=== PATIENT | male | born 1945 | race Caucasian/White ===

== ENCOUNTER 2023-04-21 05:03 | Outpatient (RCR) | payer MEDICARE, OTHER, SELFPAY | END 2023-05-20 23:59 | disposition home or self-care (01) | LOC: MM 05:03 | PROVIDERS: PCP Internal Medicine; Visit Provider Internal Medicine | DX: Z51.81 Encounter for therapeutic drug level monitoring (principal); Z79.01 Long term (current) use of anticoagulants; I48.91 Unspecified atrial fibrillation ==

== ENCOUNTER 2023-04-23 16:11 | Inpatient (IN) | payer OTHER, MEDICARE, SELFPAY ==
[2023-04-23] VITALS (28 sets, daily range): BP systolic 74–118; BP diastolic 43–73; PULSE 60–78; RESP 13–28; TEMP 36.6–37; O2SAT 75–97; BMI 50.0; BMI 52.0
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
--- NOTE | 2023-04-23 16:13 | ECG_ITS ---
The [facility] Test Date: 2023-04-23 Pat Name: Justin Merrill Department: Room: - Gender: Male Bi Report Developer: : 1945 Requested By: RUTH ANN CHAVARRIA Order Number: [id number] Reading MD: RUTH ANN CHAVARRIA Measurements Intervals [place] Rate: 51 P: 80 DC: 226 QRS: 34 QRSD: 104 T: -70 QT: 430 QTc: 407 Interpretive Statements Atial flutter 1574 with frequent ventricular premature complexes 2231 First degree AV block 2420 RSR (QR) in lead V1/V2, consistent with right ventricular conduction delay 4437 Septal injury or acute infarct 8102 Low QRS voltage in chest leads 9150 abnormal ECG No previous ECG available for comparison Electronically Signed On 04-25-2023 6:43:15 EDT by RUTH ANN CHAVARRIA
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
[2023-04-23] MEDS: ONDANSETRON PF 4 MG/2 ML VIAL IV (16:20)
[2023-04-23] MEDS: MORPHINE SULFATE 4 MG/ML VIAL IM (16:20)
[2023-04-23 16:26] LABS: Basophils Absolute Auto 0.1 10^3/uL (0.0-0.1); Basophils Percent Auto 0.5 % (0.2-2.0); Eosinophils Absolute Auto 0.1 10^3/uL (0.0-0.7); Eosinophils Percent Auto 1.1 % (0.9-7.0); Hemoglobin 13.1 g/dL (14.0-18.0); Immature Granulocytes Abs Auto 0.07 10^3/uL (0.00-0.03); Immature Granulocytes Pct Auto 0.6 % (0.0-0.5); Lymphocytes Absolute Auto 1.6 10^3/uL (1.2-3.8); Lymphocytes Percent Auto 14.4 % (20.5-60.0); Mean Corpuscular Hemoglobin 29.9 pg (25.9-34.0); Mean Corpuscular Volume 93.6 fL (80.0-94.0); Mean Platelet Volume 9.3 fL (9.5-13.5); Monocytes Absolute Auto 0.6 10^3/uL (0.3-0.8); Monocytes Percent Auto 5.5 % (1.7-12.0); Neutrophils Absolute Auto 8.5 10^3/uL (1.4-6.5); Neutrophils Percent Auto 77.9 % (43.0-75.0); Platelet Count 207 10^3/uL (150-450); Red Blood Count 4.38 10^6/uL (4.70-6.10); Red Cell Distribution Width 15.8 % (11.0-15.0)
[2023-04-23 16:40] LABS: Alanine Aminotransferase 9 U/L (16-63); Albumin Globulin Ratio 0.7; Albumin Level 2.9 g/dL (3.4-5.0); Alkaline Phosphatase 81 U/L (46-116); Anion Gap 12.4; Aspartate Amino Transferase 10 U/L (15-37); BUN Creatinine Ratio 24.8; Bilirubin Total 0.3 mg/dL (0.2-1.0); Calcium 8.2 mg/dL (8.5-10.1); Carbon Dioxide 26.2 mmol/L (21.0-32.0); Chloride 103 mmol/L (98-107); Estimated GFR (African America 49 (>=60); Estimated GFR (Non-African Ame 41 (>=60); Globulin 3.9 g/dL; Glucose 118 mg/dL (74-106); Potassium 3.6 mmol/L (3.5-5.1); Sodium 138 mmol/L (136-145); Total Protein 6.8 g/dL (6.4-8.2)
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
[2023-04-23 16:43] LABS: INR 2.16; Prothrombin Time 21.9 sec (9.0-11.6)
--- NOTE | 2023-04-23 16:52 | PC.NURSE ---
IV STARTED BY EMS PRIOR TO ARRIVAL
[2023-04-23 17:07] LABS: Troponin I High Sensitivity 19.5 pg/mL (4.0-76.1)
[2023-04-23] MEDS: FENTANYL CITRATE/PF 100 MCG/2 ML VIAL 50 MCG IV (18:27)
[2023-04-23] MEDS: HYDROMORPHONE HCL 0.5 MG/0.5 ML SYRINGE IV (20:04)
[2023-04-23] MEDS: 0.9 % SODIUM CHLORIDE 1,000 ML 999 ML IV (20:08)
--- NOTE | 2023-04-23 21:00 | PC.NURSE ---
Admitting physician Kaela Wright MD to place admission orders.
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
[2023-04-24] VITALS (28 sets, daily range): BP systolic 89–98; BP diastolic 53–66; PULSE 60–75; RESP 16–26; TEMP 36.3–36.6; O2SAT 92–97
--- NOTE | 2023-04-24 00:30 | PC.NURSE ---
IT working to fix issue with admission orders flowing to chart from Dr. Wright. At this time, orders to be acknowledged are either absent or being entered under a Non-staff physician username. Ordering physician is indeed Kaela Wright MD. Plan to acknowledge, verify, and chart medications when they are available for administration.
--- NOTE | 2023-04-24 00:59 | PC.NURSE ---
Telephone order for Morphine 2 mg IVP Q4 hours PRN for pain level 7-[address] Kaela Wright. Orders placed and acknowledged. Due to new computerized charting system as well as IT technical issues, orders for the patient were not crossing over and the patient had not received pain medication since his time in the ER. Because of this wait time, Morphine was over-rode for in the Pyxis and verified with RN x2. Morphine given IVP at this time. Plan to document in MAR as soon as medication is verified by pharmacy. Protection Mgr aware of situation. IT is working to correct this problem.
[2023-04-24] MEDS: MORPHINE SULFATE 2 MG/ML SYRINGE IV ×6 (01:00→20:22)
[2023-04-24 07:16] LABS: Glucometer 106 mg/dL (74-106)
[2023-04-24] MEDS: CITALOPRAM HYDROBROMIDE 20 MG TABLET PO (08:02)
[2023-04-24] MEDS: ALLOPURINOL 300 MG TABLET PO (08:02)
[2023-04-24] MEDS: TORSEMIDE 20 MG TABLET 10 MG PO (08:03)
[2023-04-24] MEDS: POTASSIUM BICARBONATE/CIT 25 MEQ TABLET EFF PO ×2 (08:03→21:20)
--- NOTE | 2023-04-24 08:07 | ECG_ITS ---
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
[2023-04-24] MEDS: 0.9 % SODIUM CHLORIDE 1,000 ML 1000 ML IV ×2 (08:29→08:32)
[2023-04-24 09:18] LABS: INR 2.49; Prothrombin Time 25.1 sec (9.0-11.6)
[2023-04-24 09:19] LABS: Bilirubin Urine NEGATIVE (NEGATIVE); Blood Urine SMALL (NEGATIVE); Clarity Urine CLEAR (CLEAR); Color Urine YELLOW (YELLOW); Glucose Urine UA NEGATIVE (NEGATIVE); Ketones Urine NEGATIVE (NEGATIVE); Leukocyte Esterase Urine NEGATIVE (NEGATIVE); Nitrite Urine NEGATIVE (NEGATIVE); Protein Urine 30 mg/dL (NEG/TRACE); Specific Gravity Urine 1.015 (1.005-1.025); Urobilinogen Urine 0.2 EU/dL (0.2-1.0)
[2023-04-24 09:21] LABS: Alanine Aminotransferase 13 U/L (16-63); Albumin Globulin Ratio 0.7; Albumin Level 2.9 g/dL (3.4-5.0); Alkaline Phosphatase 77 U/L (46-116); Anion Gap 12.5; Aspartate Amino Transferase 16 U/L (15-37); BUN Creatinine Ratio 25.5; Bilirubin Total 0.7 mg/dL (0.2-1.0); Calcium 8.4 mg/dL (8.5-10.1); Carbon Dioxide 25.3 mmol/L (21.0-32.0); Chloride 97 mmol/L (98-107); Estimated GFR (African America 41 (>=60); Estimated GFR (Non-African Ame 34 (>=60); Globulin 3.9 g/dL; Glucose 105 mg/dL (74-106); Potassium 3.8 mmol/L (3.5-5.1); Sodium 131 mmol/L (136-145); Total Protein 6.8 g/dL (6.4-8.2)
[2023-04-24 09:31] LABS: Creatine Kinase 59 U/L (39-308); Creatine Kinase MB 1.44 ng/mL (<=3.60); Myoglobin 207 ng/mL (16-96); Troponin I High Sensitivity 28.5 pg/mL (4.0-76.1)
[2023-04-24 09:54] LABS: Amorphous Sediment Urine FEW; Bacteria Urine NONE SEEN #/HPF (NONE SEEN); Crystals Seen? None Seen #/HPF (None Seen); Mucus Urine NONE SEEN (NONE SEEN); RBC Urine NONE SEEN #/HPF (0-2); Squamous Epithelial Cell Urine NONE SEEN #/LPF (NONE/RARE); WBC Urine 0-2 #/HPF (NONE SEEN)
[2023-04-24 09:55] LABS: Cast Seen? NONE SEEN #/LPF (NONE SEEN)
[2023-04-24 11:18] LABS: Glucometer 98 mg/dL (74-106)
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
[2023-04-24 11:41] LABS: Creatine Kinase 66 U/L (39-308); Creatine Kinase MB 1.15 ng/mL (<=3.60); Troponin I High Sensitivity 18.9 pg/mL (4.0-76.1)
[2023-04-24] MEDS: LIDOCAINE 5% PATCH 1 PATCH TOPICAL (12:10)
[2023-04-24 14:29] LABS: Creatine Kinase 71 U/L (39-308); Creatine Kinase MB 2.03 ng/mL (<=3.60); Troponin I High Sensitivity 28.5 pg/mL (4.0-76.1)
[2023-04-24 16:02] LABS: Glucometer 114 mg/dL (74-106)
[2023-04-24] MEDS: WARFARIN SODIUM 4 MG TABLET PO (16:29)
[2023-04-24] MEDS: DOCUSATE SODIUM 100 MG CAPSULE PO (20:22)
[2023-04-24] MEDS: ATORVASTATIN CALCIUM 10 MG TABLET PO (21:21)
[2023-04-25] VITALS (10 sets, daily range): BP systolic 106–165; BP diastolic 66–82; PULSE 60–90; RESP 15–22; TEMP 36.6–36.7; O2SAT 90–95
[2023-04-25] MEDS: MORPHINE SULFATE 2 MG/ML SYRINGE IV ×4 (00:25→21:11)
[2023-04-25 04:34] LABS: Basophils Percent Auto 0.2 % (0.2-2.0); Eosinophils Percent Auto 0.2 % (0.9-7.0); Hematocrit 40.4 % (42.0-54.0); Hemoglobin 12.7 g/dL (14.0-18.0); Immature Granulocytes Abs Auto 0.06 10^3/uL (0.00-0.03); Immature Granulocytes Pct Auto 0.5 % (0.0-0.5); Lymphocytes Absolute Auto 0.7 10^3/uL (1.2-3.8); Lymphocytes Percent Auto 5.6 % (20.5-60.0); Mean Corpuscular HGB Conc 31.4 g/dL (29.9-35.2); Mean Corpuscular Hemoglobin 29.6 pg (25.9-34.0); Mean Corpuscular Volume 94.2 fL (80.0-94.0); Mean Platelet Volume 9.5 fL (9.5-13.5); Monocytes Absolute Auto 0.7 10^3/uL (0.3-0.8); Monocytes Percent Auto 5.1 % (1.7-12.0); Neutrophils Absolute Auto 11.4 10^3/uL (1.4-6.5); Neutrophils Percent Auto 88.4 % (43.0-75.0); Platelet Count 196 10^3/uL (150-450); Red Blood Count 4.29 10^6/uL (4.70-6.10); Red Cell Distribution Width 15.5 % (11.0-15.0); White Blood Count 12.8 10^3/uL (4.0-11.0)
[2023-04-25 04:52] LABS: Alanine Aminotransferase 15 U/L (16-63); Albumin Globulin Ratio 0.7; Alkaline Phosphatase 77 U/L (46-116); Anion Gap 13.8; Aspartate Amino Transferase 18 U/L (15-37); BUN Creatinine Ratio 25.7; Bilirubin Total 0.6 mg/dL (0.2-1.0); Calcium 8.8 mg/dL (8.5-10.1); Carbon Dioxide 25.7 mmol/L (21.0-32.0); Chloride 96 mmol/L (98-107); Estimated GFR (African America 43 (>=60); Estimated GFR (Non-African Ame 35 (>=60); Globulin 4.2 g/dL; Glucose 145 mg/dL (74-106); Potassium 4.5 mmol/L (3.5-5.1); Sodium 131 mmol/L (136-145); Total Protein 7.2 g/dL (6.4-8.2)
[2023-04-25 04:53] LABS: Creatine Kinase 182 U/L (39-308)
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
--- NOTE | 2023-04-25 08:54 | XR_ITS ---
The [address] [address] Patient Name: NIRMAL CHAIDEZ MRN: [id number] date: 1945 Sex: M Assigned Patient Location: [place] Current Patient Location: [place] Accession/Order Number: [id number] Exam Date: 04/25/2023 09:25 Report Date: 04/25/2023 10:01 At the request of: TAMANNA SHRESTHA Procedure: XR chest 2V EXAMINATION: XR chest 2V, 04/25/2023 9:25 AM EDT HISTORY: Left-sided chest pain. COMPARISON: Relevant priors reviewed including chest CT 04/23/2023 TECHNIQUE: PA and lateral views of the chest were obtained. FINDINGS: Medical devices: Cardiac pulse generator overlies left chest wall with unchanged right ventricular lead. Cardiomediastinal silhouette is unchanged. Minimal left lower lobe opacity is favored related to atelectasis. No pleural effusion or pneumothorax. Known left-sided rib fractures are better appreciated on recent CT 01/24/2023. Degenerative change of the spine. IMPRESSION: 1. Minimal left lower lobe opacity is favored related to atelectasis. 2. Known left-sided rib fractures are better appreciated on recent CT. No pneumothorax. Electronically authenticated by: MARTINE RIOS Date: 04/25/2023 10:01
[2023-04-25] MEDS: LIDOCAINE 5% PATCH 1 PATCH TOPICAL (09:59)
[2023-04-25] MEDS: 0.9 % SODIUM CHLORIDE 1,000 ML 1000 ML IV (09:59)
[2023-04-25] MEDS: POTASSIUM BICARBONATE/CIT 25 MEQ TABLET EFF PO ×2 (09:59→21:11)
[2023-04-25] MEDS: ALLOPURINOL 300 MG TABLET PO (10:00)
[2023-04-25] MEDS: TORSEMIDE 20 MG TABLET 10 MG PO (10:00)
[2023-04-25] MEDS: CITALOPRAM HYDROBROMIDE 20 MG TABLET PO (10:00)
[2023-04-25] MEDS: METFORMIN HCL 500 MG TABLET PO (10:00)
--- NOTE | 2023-04-25 10:41 | CM.NOTE ---
Rounds made with Dr. Klein. Await PT/OT evals to determine potential needs at discharge.
[2023-04-25 11:20] LABS: Glucometer 162 mg/dL (74-106)
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
--- NOTE | 2023-04-25 13:36 | SWNOTE1 ---
SW received a call from Al [facility]ires [place] and they will need more information in regards to the pt's car insurance, etc in order to coordinate with medicare. YOU will have pt or pt's call [facility] [place].
--- NOTE | 2023-04-25 14:15 | SWNOTE1 ---
SW spoke with pt in regards to medicare and car insurance. Pt would like SW to talk with . SW spoke with pt's and she will call [facility] [employer].
--- NOTE | 2023-04-25 15:41 | SWNOTE1 ---
Al from [place] spoke to pt's and the is getting more information for [place] to coordinate the car insurance. SW updated nursing and doctor on the plan.
[2023-04-25 16:08] LABS: Glucometer 157 mg/dL (74-106)
[2023-04-25] MEDS: WARFARIN SODIUM 4 MG TABLET PO (18:18)
[2023-04-25 20:40] LABS: Glucometer 163 mg/dL (74-106)
[2023-04-25] MEDS: DOCUSATE SODIUM 100 MG CAPSULE PO (21:11)
[2023-04-25] MEDS: ATORVASTATIN CALCIUM 10 MG TABLET PO (21:11)
[2023-04-26] VITALS (9 sets, daily range): BP systolic 105–115; BP diastolic 66–76; PULSE 62–83; RESP 16–20; TEMP 36.4–36.8; O2SAT 90–95; BMI 52.0
[2023-04-26 05:23] LABS: Basophils Percent Auto 0.3 % (0.2-2.0); Eosinophils Absolute Auto 0.1 10^3/uL (0.0-0.7); Eosinophils Percent Auto 1.5 % (0.9-7.0); Hematocrit 37.6 % (42.0-54.0); Hemoglobin 12.1 g/dL (14.0-18.0); Immature Granulocytes Abs Auto 0.04 10^3/uL (0.00-0.03); Immature Granulocytes Pct Auto 0.4 % (0.0-0.5); Lymphocytes Absolute Auto 1.2 10^3/uL (1.2-3.8); Mean Corpuscular HGB Conc 32.2 g/dL (29.9-35.2); Mean Corpuscular Hemoglobin 29.4 pg (25.9-34.0); Mean Corpuscular Volume 91.5 fL (80.0-94.0); Mean Platelet Volume 9.9 fL (9.5-13.5); Monocytes Absolute Auto 0.8 10^3/uL (0.3-0.8); Monocytes Percent Auto 8.1 % (1.7-12.0); Neutrophils Absolute Auto 7.5 10^3/uL (1.4-6.5); Neutrophils Percent Auto 77.7 % (43.0-75.0); Platelet Count 192 10^3/uL (150-450); Red Blood Count 4.11 10^6/uL (4.70-6.10); Red Cell Distribution Width 15.3 % (11.0-15.0); White Blood Count 9.6 10^3/uL (4.0-11.0)
[2023-04-26 05:40] LABS: Alanine Aminotransferase 13 U/L (16-63); Albumin Globulin Ratio 0.6; Albumin Level 2.6 g/dL (3.4-5.0); Alkaline Phosphatase 72 U/L (46-116); Anion Gap 6.6; Aspartate Amino Transferase 14 U/L (15-37); BUN Creatinine Ratio 30.8; Bilirubin Total 0.7 mg/dL (0.2-1.0); Calcium 9.1 mg/dL (8.5-10.1); Carbon Dioxide 24.3 mmol/L (21.0-32.0); Chloride 98 mmol/L (98-107); Estimated GFR (African America 57 (>=60); Estimated GFR (Non-African Ame 47 (>=60); Globulin 4.1 g/dL; Glucose 132 mg/dL (74-106); Potassium 3.9 mmol/L (3.5-5.1); Sodium 125 mmol/L (136-145); Total Protein 6.7 g/dL (6.4-8.2)
[2023-04-26 05:42] LABS: Creatine Kinase 108 U/L (39-308)
[2023-04-26 08:25] LABS: INR 2.68; Prothrombin Time 26.9 sec (9.0-11.6)
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
[2023-04-26] MEDS: ALLOPURINOL 300 MG TABLET PO (09:19)
[2023-04-26] MEDS: METFORMIN HCL 500 MG TABLET PO (09:19)
[2023-04-26] MEDS: DOCUSATE SODIUM 100 MG CAPSULE PO (09:20)
[2023-04-26] MEDS: CITALOPRAM HYDROBROMIDE 20 MG TABLET PO (09:20)
[2023-04-26] MEDS: LIDOCAINE 5% PATCH 1 PATCH TOPICAL (09:22)
[2023-04-26] MEDS: POTASSIUM BICARBONATE/CIT 25 MEQ TABLET EFF PO ×2 (09:22→21:51)
[2023-04-26] MEDS: TORSEMIDE 20 MG TABLET 10 MG PO (09:30)
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
--- NOTE | 2023-04-26 10:45 | CM.NOTE ---
Rounds made with Dr. Klein. No plan for discharge today.
[2023-04-26 10:57] LABS: Glucometer 132 mg/dL (74-106)
--- NOTE | 2023-04-26 11:13 | REH.PTDLY ---
Physical Therapy Daily Note PT Daily Note/Assess Start: 04/26/23 11:00 Freq: Status: Active Protocol: Document 04/26/23 09:55 MINNIE (Rec: 04/26/23 11:13 MINNIE [id number]) Physical Therapy Daily Note/Assessment Time In 09:30 Time Out 09:55 Pain Level 0 Pain N/A Subjective Pt reports no pain at rest prior to rx. Willing to participate in therapy, wanting to walk. Therapeutic Exercise Minutes (minutes) 2 Therapeutic Exercise Units 0 Therapeutic Exercise Treatment Attempted B LE seated exs after gait, pt performs LAQ 12x ea, marching 4x ea but states legs are too tired after that walk. Therapeutic Activity Minutes (minutes) 16 Therapeutic Activity Units 1 Chair Transfer Ability Minimum Assistance,2 Person Assist Therapeutic Activity Comments Pt performs sit to stand transfers from chair Min A x2. Gait training with RW SBA/ CGAx2 with pt taking several short standing rest breaks due to fatigue and shortness of breath at times. Pt ambulates a distance of 180 feet collectively relying on RW for support and ambulating at slow pace. Pt determined to ambulate a distance and states he is sore afterwards. Total Therapy Minutes 18 Total Physical Therapy Units 1 Daily Note Summary Pt fatigue and sore post rx. Progressed gait distance with pt needing several standing rest breaks every 20-30 feet. Requires assist to get out of chair safely.
[2023-04-26] MEDS: LEVOFLOXACIN IN DEXTROSE 5 % 750 MG/150 ML PIGGYBACK IV (11:49)
[2023-04-26] MEDS: 0.9 % SODIUM CHLORIDE 250 ML 50 ML IV (11:57)
--- NOTE | 2023-04-26 12:20 | SWNOTE1 ---
YOU spoke with Al from [place] and she is not sure how long it will take to hear back about the car insurance and is alright if referral sent elsewhere so no hold up to discharge. Al stated [facility] would take referral and then deal with car insurance after. SW called and left message for pt's and will talk to pt as well.
--- NOTE | 2023-04-26 13:33 | SWNOTE1 ---
SW spoke with pt, pt's daughter, and pt's in room. SW let them know it is unknown when the car insurance will come through in regards to the pt going to [facility] and coordinating that and medicare. SW explaind to them that [facility] does not go through the car insurance they deal with that later. SW also explained that pt will not have a medical reason to stay past Thrusday and will be ready for discharge. Therefore we cannot wait for him to go to [facility] and for the car insurance to coordinate iwth medicare. Family and pt will review star ratings from medicare.gov. Family reviewed and they want to stay in [place], they are alright with SW sending referral to [facility].
--- NOTE | 2023-04-26 14:21 | SWNOTE1 ---
[facility] is able to accept. Plan is for discharge .
[2023-04-26 16:31] LABS: Glucometer 118 mg/dL (74-106)
[2023-04-26] MEDS: WARFARIN SODIUM 4 MG TABLET PO (18:07)
[2023-04-26 20:44] LABS: Glucometer 126 mg/dL (74-106)
[2023-04-26] MEDS: ATORVASTATIN CALCIUM 10 MG TABLET PO (21:46)
[2023-04-26] MEDS: MORPHINE SULFATE 2 MG/ML SYRINGE 1 MG IV (21:58)
[2023-04-26] MEDS: IPRATROPIUM/ALBUTEROL SULFATE 3 ML AMPUL.NEB IH (22:54)
[2023-04-27 04:09] VITALS: PULSE 75; RESP 18; O2SAT 93
[2023-04-27] MEDS: IPRATROPIUM/ALBUTEROL SULFATE 3 ML AMPUL.NEB IH ×4 (04:09→23:08)
[2023-04-27 04:20] VITALS: PULSE 73; RESP 20; O2SAT 95
[2023-04-27 05:26] LABS: Basophils Absolute Auto 0.1 10^3/uL (0.0-0.1); Basophils Percent Auto 0.5 % (0.2-2.0); Eosinophils Absolute Auto 0.1 10^3/uL (0.0-0.7); Eosinophils Percent Auto 0.7 % (0.9-7.0); Hematocrit 38.4 % (42.0-54.0); Hemoglobin 12.4 g/dL (14.0-18.0); Immature Granulocytes Abs Auto 0.06 10^3/uL (0.00-0.03); Immature Granulocytes Pct Auto 0.6 % (0.0-0.5); Lymphocytes Absolute Auto 1.5 10^3/uL (1.2-3.8); Lymphocytes Percent Auto 13.8 % (20.5-60.0); Mean Corpuscular HGB Conc 32.3 g/dL (29.9-35.2); Mean Corpuscular Hemoglobin 29.9 pg (25.9-34.0); Mean Corpuscular Volume 92.5 fL (80.0-94.0); Mean Platelet Volume 9.6 fL (9.5-13.5); Monocytes Absolute Auto 0.8 10^3/uL (0.3-0.8); Monocytes Percent Auto 7.5 % (1.7-12.0); Neutrophils Absolute Auto 8.3 10^3/uL (1.4-6.5); Neutrophils Percent Auto 76.9 % (43.0-75.0); Platelet Count 192 10^3/uL (150-450); Red Blood Count 4.15 10^6/uL (4.70-6.10); Red Cell Distribution Width 15.4 % (11.0-15.0); White Blood Count 10.7 10^3/uL (4.0-11.0)
[2023-04-27 05:50] LABS: Alanine Aminotransferase 14 U/L (16-63); Albumin Globulin Ratio 0.6; Albumin Level 2.6 g/dL (3.4-5.0); Alkaline Phosphatase 66 U/L (46-116); Anion Gap 14.1; Aspartate Amino Transferase 12 U/L (15-37); Bilirubin Total 0.7 mg/dL (0.2-1.0); Calcium 9.2 mg/dL (8.5-10.1); Carbon Dioxide 25.9 mmol/L (21.0-32.0); Chloride 98 mmol/L (98-107); Estimated GFR (African America 54 (>=60); Estimated GFR (Non-African Ame 45 (>=60); Globulin 4.2 g/dL; Glucose 153 mg/dL (74-106); Sodium 134 mmol/L (136-145); Total Protein 6.8 g/dL (6.4-8.2)
[2023-04-27 06:06] LABS: Prothrombin Time 24.2 sec (9.0-11.6)
[2023-04-27 07:57] LABS: Glucometer 170 mg/dL (74-106)
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
[2023-04-27] MEDS: TORSEMIDE 20 MG TABLET 10 MG PO (09:04)
[2023-04-27] MEDS: POTASSIUM BICARBONATE/CIT 25 MEQ TABLET EFF PO ×2 (09:04→20:47)
[2023-04-27] MEDS: ALLOPURINOL 300 MG TABLET PO (09:04)
[2023-04-27] MEDS: LIDOCAINE 5% PATCH 1 PATCH TOPICAL (09:05)
[2023-04-27] MEDS: CITALOPRAM HYDROBROMIDE 20 MG TABLET PO (09:05)
[2023-04-27] MEDS: METFORMIN HCL 500 MG TABLET PO (09:05)
[2023-04-27] MEDS: DOCUSATE SODIUM 100 MG CAPSULE PO ×2 (09:05→20:53)
--- NOTE | 2023-04-27 09:47 | CM.NOTE ---
Rounds made with Dr. Klein. No plan for discharge today.
[2023-04-27 11:33] LABS: Glucometer 132 mg/dL (74-106)
--- NOTE | 2023-04-27 12:43 | REH.PTDLY ---
Physical Therapy Daily Note PT Daily Note/Assess Start: 04/26/23 11:00 Freq: Status: Active Protocol: Document 04/27/23 10:45 MINNIE (Rec: 04/27/23 12:43 MINNIE [id number]) Physical Therapy Daily Note/Assessment Time In 10:27 Time Out 10:44 Pain Level 6 Pain Level 8 Subjective Pt sore today at ribs and into B LEs. Overdid it yesterday with ambulation. Therapeutic Exercise Minutes (minutes) 6 Therapeutic Exercise Units 0 Therapeutic Exercise Treatment Instructed pt in B LE seated exs 10x ea with pt performing at slower pace and smaller range. Exs included LAQ, marching, hip abd, and AP. Pt reports he needs to stop after these as he is having increased pain. Therapeutic Activity Minutes (minutes) 10 Therapeutic Activity Units 1 Chair Transfer Ability Minimum Assistance,Moderate Assistance Therapeutic Activity Comments Pt requires Mod A x1 to get up from chair today. Gait training with RW SBA 70 feet with pt having to stop 2x to take break due to fatigue and soreness. Total Therapy Minutes 16 Total Physical Therapy Units 1 Daily Note Summary Pt has increased soreness and pain today in [place] LEs and abdomen. Reduced gait distance due to this. Pt has increased pain post rx.
--- NOTE | 2023-04-27 13:09 | SWNOTE1 ---
Updates sent to [facility].
[2023-04-27 14:45] VITALS: BP 128/85; PULSE 75; RESP 20; TEMP 36.8; O2SAT 92
[2023-04-27 16:21] LABS: Glucometer 150 mg/dL (74-106)
[2023-04-27] MEDS: WARFARIN SODIUM 4 MG TABLET PO (17:33)
[2023-04-27] MEDS: ACETAMINOPHEN 500 MG TABLET 1000 MG PO (17:33)
--- NOTE | 2023-04-27 20:34 | PC.NURSE ---
incouraged pt to drink water but refused at this time- mouth very dry
[2023-04-27] MEDS: TRAMADOL HCL 50 MG TABLET PO (20:48)
[2023-04-27 20:53] LABS: Glucometer 155 mg/dL (74-106)
[2023-04-27 20:57] VITALS: BP 109/73; RESP 18; TEMP 36.6; O2SAT 92
[2023-04-27] MEDS: ATORVASTATIN CALCIUM 10 MG TABLET PO (21:28)
[2023-04-27 23:08] VITALS: PULSE 73; RESP 20; O2SAT 96
[2023-04-27 23:20] VITALS: PULSE 78; RESP 20; O2SAT 98
[2023-04-28] MEDS: ACETAMINOPHEN 500 MG TABLET 1000 MG PO (00:54)
[2023-04-28] MEDS: IPRATROPIUM/ALBUTEROL SULFATE 3 ML AMPUL.NEB IH ×2 (04:18→11:33)
[2023-04-28 04:20] VITALS: PULSE 72; RESP 18; O2SAT 95
[2023-04-28 04:28] VITALS: PULSE 81; RESP 18; O2SAT 98
[2023-04-28 04:52] LABS: Basophils Absolute Auto 0.1 10^3/uL (0.0-0.1); Basophils Percent Auto 0.6 % (0.2-2.0); Eosinophils Absolute Auto 0.1 10^3/uL (0.0-0.7); Eosinophils Percent Auto 1.6 % (0.9-7.0); Hemoglobin 11.9 g/dL (14.0-18.0); Immature Granulocytes Abs Auto 0.04 10^3/uL (0.00-0.03); Immature Granulocytes Pct Auto 0.5 % (0.0-0.5); Lymphocytes Absolute Auto 1.4 10^3/uL (1.2-3.8); Lymphocytes Percent Auto 17.1 % (20.5-60.0); Mean Corpuscular HGB Conc 32.2 g/dL (29.9-35.2); Mean Corpuscular Hemoglobin 29.8 pg (25.9-34.0); Mean Corpuscular Volume 92.7 fL (80.0-94.0); Mean Platelet Volume 9.2 fL (9.5-13.5); Monocytes Absolute Auto 0.7 10^3/uL (0.3-0.8); Monocytes Percent Auto 8.6 % (1.7-12.0); Neutrophils Absolute Auto 5.9 10^3/uL (1.4-6.5); Neutrophils Percent Auto 71.6 % (43.0-75.0); Platelet Count 193 10^3/uL (150-450); Red Blood Count 3.99 10^6/uL (4.70-6.10); Red Cell Distribution Width 15.3 % (11.0-15.0); White Blood Count 8.3 10^3/uL (4.0-11.0)
[2023-04-28 05:03] LABS: INR 2.74; Prothrombin Time 27.4 sec (9.0-11.6)
[2023-04-28 05:10] LABS: Alanine Aminotransferase 13 U/L (16-63); Albumin Globulin Ratio 0.6; Albumin Level 2.4 g/dL (3.4-5.0); Alkaline Phosphatase 60 U/L (46-116); Anion Gap 10.1; Aspartate Amino Transferase 11 U/L (15-37); BUN Creatinine Ratio 23.1; Bilirubin Total 0.4 mg/dL (0.2-1.0); Calcium 9.1 mg/dL (8.5-10.1); Carbon Dioxide 28.8 mmol/L (21.0-32.0); Chloride 101 mmol/L (98-107); Estimated GFR (African America >60 (>=60); Estimated GFR (Non-African Ame 54 (>=60); Glucose 145 mg/dL (74-106); Potassium 3.9 mmol/L (3.5-5.1); Sodium 136 mmol/L (136-145); Total Protein 6.4 g/dL (6.4-8.2)
[2023-04-28 08:33] LABS: Glucometer 152 mg/dL (74-106)
[2023-04-28] MEDS: LIDOCAINE 5% PATCH 1 PATCH TOPICAL (09:10)
[2023-04-28] MEDS: POTASSIUM BICARBONATE/CIT 25 MEQ TABLET EFF PO (09:11)
[2023-04-28] MEDS: METFORMIN HCL 500 MG TABLET PO (09:11)
[2023-04-28] MEDS: CITALOPRAM HYDROBROMIDE 20 MG TABLET PO (09:11)
[2023-04-28] MEDS: ALLOPURINOL 300 MG TABLET PO (09:11)
[2023-04-28] MEDS: LEVOFLOXACIN IN DEXTROSE 5 % 750 MG/150 ML PIGGYBACK IV (09:11)
[2023-04-28] MEDS: TORSEMIDE 20 MG TABLET 10 MG PO (09:11)
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
--- NOTE | 2023-04-28 09:44 | CM.NOTE ---
Rounds made with Dr. Klein. Plan for discharge today to [facility].
[2023-04-28 10:31] LABS: Mono Screen NEGATIVE (NEGATIVE)
--- NOTE | 2023-04-28 10:47 | SWNOTE1 ---
Pt is ready for dc today to [facility] skilled. SW set up transport for 12:15-12:45. SW notified pt, nursing, [facility], and pt's of time. SW sent over dc orders and completed HENS. Packet is updated as well.
--- NOTE | 2023-04-28 11:08 | REH.PTDLY ---
Physical Therapy Daily Note PT Daily Note/Assess Start: 04/26/23 11:00 Freq: Status: Active Protocol: Document 04/28/23 11:05 MINNIE (Rec: 04/28/23 11:07 MINNIE [id number]) Visit Not Completed Visit Not Completed Due to: Other Other Reason Visit Not Completed Pt is leaving at 12:15-12:30 today. Pt demanding a shower prior to leaving, does not want PT at this time. Nursing notified and enters room to give pt shower and prepare for DC. Physical Therapy Daily Note/Assessment Time In 10:54 Time Out 11:00
[2023-04-28 11:12] LABS: Glucometer 184 mg/dL (74-106)
--- NOTE | 2023-04-28 11:46 | SWNOTE1 ---
SW did review follow up IMM form with pt's . Pt was getting cleaned up. Pt's voiced understanding and does not want to appeal discharge. Pt is alright with pt's signing paper. Pt's signed, original given to pt and copy placed in chart.
[2023-04-28 11:54] VITALS: BP 99/65; PULSE 72; RESP 18; TEMP 36.6; O2SAT 94
== END 2023-04-28 12:55 | DRG 184 ==
LOC: ER 20:11 → ICU 20:33 → MS 04-25 09:40
PROVIDERS: Admitting Provider Family Medicine; Emergency Provider Emergency Medicine; PCP Internal Medicine; Visit Provider Family Medicine
DX: S22.42XA Multiple fractures of ribs, left side, initial encounter for closed fracture (principal); J90 Pleural effusion, not elsewhere classified; N17.9 Acute kidney failure, unspecified; S20.212A Contusion of left front wall of thorax, initial encounter; S80.12XA Contusion of left lower leg, initial encounter; S80.11XA Contusion of right lower leg, initial encounter; D72.829 Elevated white blood cell count, unspecified; E11.22 Type 2 diabetes mellitus with diabetic chronic kidney disease; N18.2 Chronic kidney disease, stage 2 (mild); I25.10 Atherosclerotic heart disease of native coronary artery without angina pectoris; I12.9 Hypertensive chronic kidney disease with stage 1 through stage 4 chronic kidney disease, or unspecified chronic kidney disease; I48.0 Paroxysmal atrial fibrillation; I95.9 Hypotension, unspecified; I25.2 Old myocardial infarction; R79.89 Other specified abnormal findings of blood chemistry; R26.2 Difficulty in walking, not elsewhere classified; R06.00 Dyspnea, unspecified; V43.52XA Car driver injured in collision with other type car in traffic accident, initial encounter; W22.11XA Striking against or struck by driver side automobile airbag, initial encounter; Y92.413 State road as the place of occurrence of the external cause; Z87.891 Personal history of nicotine dependence; Z79.84 Long term (current) use of oral hypoglycemic drugs; Z79.899 Other long term (current) drug therapy; Z79.01 Long term (current) use of anticoagulants; Z95.5 Presence of coronary angioplasty implant and graft; Z95.0 Presence of cardiac pacemaker; Z80.9 Family history of malignant neoplasm, unspecified
CPT/HCPCS: 36415; 70450; 71046; 71260; 72125; 74177; 80053; 81001; 82550; 82553; 82948; 83874; 84484; 85025; 85610; 86308; 93005; 94640; 94667; 94668; 96374; 96375; 96376; 97162; 97165; 97530; 97535; 99285; G0378; J1170; Q3014; Q9967

== ENCOUNTER 2023-05-04 08:21 | Outpatient (REF) | payer MEDICARE, OTHER, SELFPAY ==
[2023-05-04 09:54] LABS: INR 2.82; Prothrombin Time 28.2 sec (9.0-11.6)
== END 2023-05-04 08:22 ==
LOC: LAB 08:21
PROVIDERS: PCP Internal Medicine; Visit Provider Internal Medicine
DX: I48.91 Unspecified atrial fibrillation (principal)
CPT/HCPCS: 36415; 85610

== ENCOUNTER 2023-05-11 00:41 | Outpatient (REF) | payer MEDICARE, OTHER, SELFPAY ==
[2023-05-11 09:40] LABS: INR 1.59; Prothrombin Time 16.4 sec (9.0-11.6)
== END 2023-05-11 00:42 ==
LOC: LAB 00:41
PROVIDERS: PCP Internal Medicine; Visit Provider Internal Medicine
DX: I48.91 Unspecified atrial fibrillation (principal); E11.9 Type 2 diabetes mellitus without complications
CPT/HCPCS: 36415; 85610

== ENCOUNTER 2023-05-18 13:33 | Outpatient (REF) | payer MEDICARE, OTHER, SELFPAY ==
[2023-05-18 15:03] LABS: INR 2.02; Prothrombin Time 20.6 sec (9.0-11.6)
[2023-05-18 15:18] LABS: Anion Gap 9.1; BUN Creatinine Ratio 27.4; Calcium 8.9 mg/dL (8.5-10.1); Carbon Dioxide 31.4 mmol/L (21.0-32.0); Chloride 101 mmol/L (98-107); Estimated GFR (African America >60 (>=60); Estimated GFR (Non-African Ame >60 (>=60); Glucose 102 mg/dL (74-106); Potassium 4.5 mmol/L (3.5-5.1); Sodium 137 mmol/L (136-145)
== END 2023-05-18 13:34 | disposition home or self-care (01) ==
LOC: LAB 13:33
PROVIDERS: PCP Internal Medicine
DX: I48.91 Unspecified atrial fibrillation (principal); R79.89 Other specified abnormal findings of blood chemistry
CPT/HCPCS: 36415; 80048; 85610

== ENCOUNTER 2023-05-26 09:00 | Outpatient (RCR) | payer MEDICARE, OTHER, SELFPAY | END 2023-06-20 16:58 | disposition home or self-care (01) | LOC: MM 09:00 | PROVIDERS: PCP Internal Medicine; Visit Provider Internal Medicine | DX: Z51.81 Encounter for therapeutic drug level monitoring (principal); Z79.01 Long term (current) use of anticoagulants; I48.91 Unspecified atrial fibrillation ==

== ENCOUNTER 2023-05-31 13:36 | Outpatient (REF) | payer MEDICARE, OTHER, SELFPAY ==
[2023-05-31 15:19] LABS: INR 1.72; Prothrombin Time 17.7 sec (9.0-11.6)
== END 2023-05-31 13:37 | disposition home or self-care (01) ==
LOC: LAB 13:36
PROVIDERS: PCP Internal Medicine; Visit Provider Internal Medicine
DX: I48.91 Unspecified atrial fibrillation (principal)
CPT/HCPCS: 36415; 85610

== ENCOUNTER 2023-06-07 14:11 | Outpatient (REF) | payer MEDICARE, OTHER, SELFPAY ==
[2023-06-07 14:50] LABS: INR 3.46; Prothrombin Time 34.2 sec (9.0-11.6)
== END 2023-06-07 14:12 | disposition home or self-care (01) ==
LOC: LAB 14:11
PROVIDERS: PCP Internal Medicine; Visit Provider Internal Medicine
DX: I48.91 Unspecified atrial fibrillation (principal)
CPT/HCPCS: 36415; 85610

== ENCOUNTER 2023-06-14 15:18 | Outpatient (REF) | payer MEDICARE, OTHER, SELFPAY ==
[2023-06-14 16:50] LABS: INR 3.32; Prothrombin Time 32.9 sec (9.0-11.6)
== END 2023-06-14 15:19 | disposition home or self-care (01) ==
LOC: LAB 15:18
PROVIDERS: PCP Internal Medicine; Visit Provider Internal Medicine
DX: Z79.01 Long term (current) use of anticoagulants (principal)
CPT/HCPCS: 36415; 85610

== ENCOUNTER 2023-06-21 09:19 | Outpatient (RCR) | payer MEDICARE, OTHER, SELFPAY | END 2023-07-21 17:34 | disposition home or self-care (01) | LOC: MM 09:19 | PROVIDERS: PCP Internal Medicine; Visit Provider Internal Medicine | DX: Z51.81 Encounter for therapeutic drug level monitoring (principal); Z79.01 Long term (current) use of anticoagulants; I48.91 Unspecified atrial fibrillation ==

== ENCOUNTER 2023-06-21 13:54 | Outpatient (REF) | payer MEDICARE, OTHER, SELFPAY ==
[2023-06-21 15:00] LABS: INR 2.95; Prothrombin Time 29.4 sec (9.0-11.6)
== END 2023-06-21 13:55 | disposition home or self-care (01) ==
LOC: LAB 13:54
PROVIDERS: PCP Internal Medicine; Visit Provider Internal Medicine
DX: Z79.01 Long term (current) use of anticoagulants (principal)
CPT/HCPCS: 36415; 85610

== ENCOUNTER 2023-06-28 14:00 | Outpatient (REF) | payer MEDICARE, OTHER, SELFPAY ==
[2023-06-28 14:43] LABS: Estimated Average Glucose 148 mg/dL; Glycohemoglobin A1C 6.8 % (4.5-6.2)
[2023-06-28 14:50] LABS: INR 2.12; Prothrombin Time 21.5 sec (9.0-11.6)
== END 2023-06-28 14:01 | disposition home or self-care (01) ==
LOC: LAB 14:00
PROVIDERS: PCP Internal Medicine; Visit Provider Internal Medicine
DX: E11.65 Type 2 diabetes mellitus with hyperglycemia (principal); Z79.01 Long term (current) use of anticoagulants
CPT/HCPCS: 36415; 83036; 85610

== ENCOUNTER 2023-07-22 10:22 | Outpatient (RCR) | payer MEDICARE, OTHER, SELFPAY | END 2023-08-19 16:51 | disposition home or self-care (01) | LOC: MM 10:22 | PROVIDERS: PCP Internal Medicine; Visit Provider Internal Medicine | DX: Z51.81 Encounter for therapeutic drug level monitoring (principal); Z79.01 Long term (current) use of anticoagulants; I48.91 Unspecified atrial fibrillation | CPT/HCPCS: 85610; G0463 ==

== ENCOUNTER 2023-08-22 01:52 | Outpatient (RCR) | payer MEDICARE, OTHER, SELFPAY | END 2023-09-20 17:24 | disposition home or self-care (01) | LOC: MM 01:52 | PROVIDERS: PCP Internal Medicine; Visit Provider Internal Medicine | DX: Z51.81 Encounter for therapeutic drug level monitoring (principal); Z79.01 Long term (current) use of anticoagulants; I48.91 Unspecified atrial fibrillation | CPT/HCPCS: 85610; G0463 ==

== ENCOUNTER 2023-09-21 00:16 | Outpatient (RCR) | payer MEDICARE, OTHER, SELFPAY | END 2023-10-20 16:05 | disposition home or self-care (01) | LOC: MM 00:16 | PROVIDERS: PCP Internal Medicine; Visit Provider Internal Medicine | DX: Z51.81 Encounter for therapeutic drug level monitoring (principal); Z79.01 Long term (current) use of anticoagulants; I48.91 Unspecified atrial fibrillation | CPT/HCPCS: 85610; G0463 ==

== ENCOUNTER 2023-10-21 09:14 | Outpatient (RCR) | payer MEDICARE, OTHER, SELFPAY | END 2023-11-18 14:35 | disposition home or self-care (01) | LOC: MM 09:14 | PROVIDERS: PCP Internal Medicine; Visit Provider Internal Medicine | DX: Z51.81 Encounter for therapeutic drug level monitoring (principal); Z79.01 Long term (current) use of anticoagulants; I48.91 Unspecified atrial fibrillation | CPT/HCPCS: 85610; G0463 ==

== ENCOUNTER 2023-11-21 01:34 | Outpatient (RCR) | payer MEDICARE, OTHER, SELFPAY | END 2023-12-21 17:15 | disposition home or self-care (01) | LOC: MM 01:34 | PROVIDERS: PCP Internal Medicine; Visit Provider Internal Medicine | DX: Z51.81 Encounter for therapeutic drug level monitoring (principal); Z79.01 Long term (current) use of anticoagulants | CPT/HCPCS: 85610; G0463 ==

== ENCOUNTER 2023-12-22 01:50 | Outpatient (RCR) | payer MEDICARE, OTHER, SELFPAY | END 2024-01-19 17:25 | disposition home or self-care (01) | LOC: MM 01:50 | PROVIDERS: PCP Internal Medicine; Visit Provider Internal Medicine | DX: Z51.81 Encounter for therapeutic drug level monitoring (principal); Z79.01 Long term (current) use of anticoagulants ==

== ENCOUNTER 2023-12-27 09:37 | Outpatient (OUT) | payer MEDICARE, OTHER, SELFPAY ==
--- OUTSIDE RECORDS SUMMARY | 2023-12-27 09:42 | XMS_ITS | CCD ---
Author Name Unknown Address [address] [place] [address] Organization [facility] Care Team Providers Care [employer] Name Role Phone PHYSICIAN, DEFAULT Unavailable Unavailable PHYSICIAN, DEFAULT Unavailable Unavailable Modesto Chavarria Unavailable Unavailable Unavailable Unavailable Unavailable DO Modesto Chavarria Primary Care Provider [phone] MD Lalito Silva Admit Provider MD Lalito Silva Attending Provider DO Domenico Nicholson Emergency Provider Unavai Modesto Rocha Unavailable DR MODESTO CHAVARRIA Primary Care Unavailable FAWWAD, RAYMOND H Attending Unavailable FAWWAD, RAYMOND H Admitting Unavailable BALL, DR SALVADOR Primary Care Unavailable FAWWAD, RAYMOND H Attending Unavailable FAWWAD, RAYMOND H Admitting Unavailable BALL, DR SALVADOR Primary Care Unavailable FAWWAD, RAYMOND H Attending Unavailable FAWWAD, RAYMOND H Admitting Unavailable BALL, DR SALVADOR Primary Care Unavailable BALL, DR SALVADOR Consulting Unavailable BALL, DR SALVADOR Attending Unavailable BALL, DR SALVADOR Admitting Unavailable FAWWAD, RAYMOND H Attending Unavailable FAWWAD, RAYMOND H Admitting Unavailable BALL, DR SALVADOR Primary Care Unavailable AURA, DR SALVADOR Admitting Unavailable BALL, DR SALVADOR Attending Unavailable BALL, DR SALVADOR Primary Care Unavailable BALL, DR SALVADOR Consulting Unavailable FAWWAD, RAYMOND H Admitting Unavailable BALL, DR SALVADOR Primary Care Unavailable FAWWAD, RAYMOND H Attending Unavailable BALL, DR SALVADOR Primary Care Unavailable FAWWAD, RAYMOND H Attending Unavailable FAWWAD, RAYMOND H Admitting Unavailable FAWWAD, RAYMOND H Admitting Unavailable FAWWAD, RAYMOND H Attending Unavailable BALL, DR SALVADOR Primary Care Unavailable FAWWAD, RAYMOND H Attending Unavailable FAWWAD, RAYMOND H Admitting Unavailable BALL, DR SALVADOR Primary Care Unavailable FAWWAD, RAYMOND H Admitting Unavailable BALL, DR SALVADOR Primary Care Unavailable FAWWAD, RAYMOND H Attending Unavailable BALL, DR SALVADOR Primary Care Unavailable FAWWAD, RAYMOND H Attending Unavailable FAWWAD, RAYMOND H Admitting Unavailable BALL, DR SALVADOR Primary Care Unavailable FAWWAD, RAYMOND H Attending Unavailable FAWWAD, RAYMOND H Admitting Unavailable BALL, DR SALVADOR Primary Care Unavailable FAWWAD, RAYMOND H Attending Unavailable FAWWAD, RAYMOND H Admitting Unavailable BALL, DR SALVADOR Primary Care Unavailable BALL, DR SALVADOR Admitting Unavailable BALL, DR SALVADOR Consulting Unavailable BALL, DR SALVADOR Attending Unavailable BALL, DR SALVADOR Primary Care Unavailable GIBSON ., DR SAVAGE Consulting Unavailable GIBSON ., DR SAVAGE Attending Unavailable GIBSON ., DR SAVAGE Admitting Unavailable ZIEBER, DR DAVONTE Bunn Consulting Unavailable BALL, DR SALVADOR Primary Care Unavailable BALL, DR SALVADOR Admitting Unavailable BALL, DR SALVADOR Consulting Unavailable BALL, DR SALVADOR Attending Unavailable Aura, DO Salvador Primary Care Provider DO Ran Raines Emergency Provider MD Stalin Miranda Admit Provider MD Stalin Miranda Attending Provider [phone] Domenico Nicholson Admitting Unavailable Domenico Nicholson Attending Unavailable Modesto Chavarria Primary Care Unavailable Lalito Silva Admitting Unavail able Lalito Silva Attending Unavail able Modesto Chavarria Primary Care Unavailable Meredith Frost Consulting Unavailable Temo Valencia Attending Unavailable Stalin Miranda Admitting Unavailab le Modesto Chavarria Primary Care Unavailable Constanza Chavarria Consulting Unavailable Milo Cameron Consulting Unavailable Lalito Silva Consulting Unavail able Michael Mullen Consulting Unavailable Prashanth Marshall Consulting Unavailab Isabell Quiñones Consulting Unavailable Hector, Jillian Consulting Unavailable Delbert, Ej Flores Consulting Unavailab garth Garrett, Rachel Consulting Unavailable Louie, Gretel Mcgill Consulting Unavailable Gabbi Chin Consulting Unavailable McGuinn II, Dr. Lalito Savage Attending Unavailable Aura, Dr. Modesto Galan [facility] Julia Chavarria, Dr. Modesto [facility] Julia Cameron, Dr. Milo Taylor Attending Cassi bindu Chavarria, Dr. Modesto [facility]an [facility] Julia Chavarria, Dr. Modesto [facility] [place] Chavarria, Dr. Modesto [facility] Julia Chavarria, Dr. Modesto [facility] [place] michael Silva II, Dr. Lalito Savage Referring Unavailable Aura, Dr. Modesto [facility] [place] labgarth Mayuinn II, Dr. Lalito Savage Attending Unavailable Arua, Dr. Modesto [facility]an [facility] Julia labgarth Mayuinangelina II, Dr. Lalito Savage Referring Unavailable McGuinn II, Dr. Lalito Savage Attending Unavailable Lalouinn II, Dr. Lalito Savage Attending Unavailable McGuinn II, Dr. Lalito Savage Referring Unavailable Ball, Dr. Modesto [facility]an [facility] Julia Chavarria, Dr. Modesto [facility]an [facility] Julia Cameron, Dr. Milo Taylor Attending Cassi bindu Chavarria, Dr. Modesto [facility]an [facility] [place] Chavarria, Dr. Modesto [facility] [place] lable Lalouinn, Lalito P Attending Unavailable McGuinnLalito P Referring Unavailable McGuinn, Lalito P Admitting Unavailable McGuinnLalito P Referring Unavailable McGuinn, Lalito P Admitting Unavailable McGuinn, Lalito P Attending Unavailable McGuinn Lalito P Attending Unavailable McGuinn, Lalito P Referring Unavailable McGuinn, Lalito P Admitting Unavailable Carlos Alberto GIBSON Attending Unavailable Carlos Alberto GIBSON Attending Unavailable Modesto Chavarria DO Primary Care Provider LALITO SILVA Attending Unavailable MODESTO CHAVARRIA Primary [facility] Unavailabl e Allergies Allergy Classification Reported Allergen(s) Allergy Type Date of Onset Reaction(s) Facility (13 sources) Penicillins; Translations: [Penicillins] Allergy to drug (finding) 10-06-20 23 [facility] 3 Repository (4 sources) Penicillin; Translations: [penicillin G] Drug Allergy 03-07-20 22 [facility] (17 sources) Penicillin G Benzathine Drug allergy Unknown [facility] Other (1 source) Grass pollen Drug allergy (disorder) [facility] Repository (1 source) house dust allergenic extract Drug Allergy [facility] Repository (1 source) Penicillins Drug allergy (disorder) 04-08-20 14 [facility] Repository (7 sources) metFORMIN Drug Allergy Unknown [facility] Other (7 sources) Albuterol *ANTIASTHMATIC AND BRONCHODILATOR AGENTS Propensity to adverse reactions Unknown [facility] Other (7 sources) Substance with penicillin structure and antibacterial mechanism of action (substance) Drug allergy Unknown [facility] Other (1 source) Dust; Translations: [Dust] Propensity to adverse reactions (disorder) [facility] Repository (1 source) Penicillin; Translations: [penicillin] Drug Allergy [facility] Repository (1 source) Pollen; Translations: [Pollen] Propensity to adverse reactions (disorder) [facility] Repository (1 source) Penicillins Drug Allergy 10-06-20 23 [facility] [place] Medications Current Medications Medication Drug Class(es) Dates Sig (Normalized) Sig (Original) 0.25 MG, 0.5 MG Dose 3 ML semaglutide 0.68 MG/ML Pen Injector [Ozempic] (3 sources) Start: 10-17-2023 Ozempic (0.25 or 0.5 MG/DOSE) 2 MG/3ML 0.25MG Subcutaneous weekly for 28 days Sep, Active acetaminophen 500 mg oral tablet (4 sources) Start: 05-14-2023 take 1000 mg by mouth every six hours Acetaminophen Active 1000 MG PO Q6H May 14, 2023 12:00am Start: 05-26-2018 End: 08-11-2021 take 1 capsule by mouth every four to six hours Acetaminophen (Tylenol) 325 mg Capsule Discontinued 325 MG PO EVERY 4-6 HOURS May 26, 2018 12:00am August 11, 2021 1:14pm allopurinol 300 mg oral tablet (20 sources) Xanthine Oxidase Inhibitor Start: 04-26-2018 take 300 mg by mouth once daily Allopurinol Active 300 MG PO Daily April 26, 2018 12:00am amLODIPine 5 mg oral tablet (17 sources) Dihydropyridine Calcium Channel Kisha take 1 tablet by mouth every twenty-four hours amLODIPine Besylate 5 MG 1 tablet Orally Once a day Active cholecalciferol 1.25 mg oral capsule (10 sources) Vitamin D Start: 05-23-2023 take 1 capsule by mouth every week Vitamin D3 1.25 MG (90773 UT) 1 capsule Orally weekly for 30 days May, Active citalopram 20 mg oral tablet (20 sources) Serotonin Reuptake Inhibitor Start: 11-26-2018 take 20 mg by mouth once daily Citalopram Active 20 MG PO Daily November 26, 2018 1:00am Start: 04-26-2018 End: 05-26-2018 take 20 mg by mouth once daily Citalopram Discontinued 20 MG PO Daily April 26, 2018 12:00am May 26, 2018 8:31am docusate sodium 100 mg oral capsule (1 source) Start: 05-14-2023 take 1 capsule by mouth once daily Docusate Sodium (Colace) 100 mg Capsule Active 100 MG PO Daily May 14, 2023 12:00am hydroCHLOROthiazide 12.5 mg / lisinopril 10 mg oral tablet (20 sources) Thiazide Diuretic, Angiotensin Converting Enzyme Inhibitor Start: 10-07-2023 End: 10-06-2024 take 1 tablet by mouth twice daily lisinopriL-hyd rochlorothiazi de 10-12.5 mg tablet Indications: Essential hypertension, benign Take 1 tablet by mouth 2 times a day. 180 tablet 3 10/07/2023 10/06/2024 Active Start: 05-25-2023 take 1 tablet by elana th every twenty-four hours Lisinopril-hydroCHLOROthiazide 10-12.5 M G 1 tablet Orally Once a day May, Active Start: 07-02-2022 End: 08-24-2022 take 1 tablet by mouth once daily Lisinopril-Hydrochlorothiazide Discontin ued 1 TAB PO Daily July 02, 2022 12:00am August 24, 2022 7:29am Start: 04-26-2018 take 2 tablets by mo uth once daily Lisinopril-Hydrochlorothiazide Active 2 TAB PO Daily April 26, 2018 12:00am lidocaine 0.05 mg/mg medicated patch (1 source) Antiarrhythmic, Amide Local Anesthetic Start: 05-14-2023 apply 1 dose topically once daily Lidocaine Active 1 PATCH TOPICAL Daily May 14, 2023 12:00am leave on most painful area for up to 12 hrs metFORMIN hydrochloride 500 mg oral tablet (20 sources) Biguanide Start: 02-22-2023 take 1 tablet by mouth once daily at dinner metFORMIN HCl 500 MG 1 tablet Orally Once a day w/ evening meal Feb, Active Start: 05-26-2018 End: 11-26-2018 take 1 tablet by mouth once daily Metformin Discontinued 1 TAB PO Daily May 26, 2018 12:00am November 26, 2018 3:49pm pravastatin sodium 40 mg oral tablet (20 sources) HMG-CoA Reductase Inhibitor Start: 04-26-2018 End: 10-06-2024 take 1 tablet by mouth once daily pravastatin (Pravachol) 40 mg tablet Indications: Mixed hyperlipidemia Take 1 tablet (40 mg) by mouth once daily. 90 tablet 3 10/07/2023 10/06/2024 Active sildenafil 100 mg oral tablet (6 sources) Phosphodiesterase 5 Inhibitor take 1 tablet by mouth every twenty-four hours Sildenafil Citrate 100 MG 1 tablet as needed Orally Once a day Active torsemide 10 mg oral tablet (7 sources) Loop Diuretic Start: 10-07-2023 End: 10-06-2024 take 1 tablet by mouth once daily torsemide (Demadex) 10 mg tablet Indications: Essential hypertension, benign Take 1 tablet (10 mg) by mouth once daily. 90 tablet 3 10/07/2023 10/06/2024 Active Start: 03-16-2022 End: 10-07-2023 Torsemide Active 10 MG PO Ju 2022 12:00am traMADol hydrochloride 50 mg oral tablet (1 source) Opioid Agonist Start: 05-14-2023 take 50 mg by mouth every six hours Tramadol Active 50 MG PO Q6H May 14, 2023 12:00am warfarin sodium 4 mg oral tablet (20 sources) Vitamin K Antagonist Start: 05-14-2023 Warfarin Active 4 MG PO May 14, 2023 12:00am MON, TUES, THURS, FRI, SAT Start: 05-14-2023 Warfarin Activ e 6 MG PO Use as Directed May 14, 2023 12:00am WED AND SAT Start: 04-26-2018 End: 05-14-2023 Warfarin Discontinued 4 MG P O As Directed April 26, 2018 12:00am May 14, 2023 11:11pm take 1 tablet by elana th once daily Coumadin 4 MG 1 tablet Orally Once a day ranges from 2-4 Active Warfarin Sodium 4 MG Oral Tablet as directed by [facility] Quantity: 0 Refills: 0 Ordered: 07-Sep-2021 DO Active Completed/Discontinued Medications Medication Drug Class(es) Dates Sig (Normalized) Sig (Original) acetaminophen 325 mg / HYDROcodone bitartrate 5 mg oral tablet (6 sources) Opioid Agonist Start: 03-07-2022 End: 08-24-2022 take 1 tablet by mouth every four to six hours Hydrocodone-Acetami nophen Discontinued 1 - 2 TAB PO EVERY 4-6 HOURS 14 3 March 07, 2022 August 24, 2022 7:31am Start: 11-26-2018 End: 08-11-2021 take 1 tablet by mouth every four to six hours Hydrocodone-Acetaminophen ([place]) 5-325 mg tablet Discontinued 1 TAB PO EVERY 4-6 HOURS 12 3 November 26, 2018 August 11, 2021 1:14pm amiodarone hydrochloride 200 mg oral tablet (20 sources) Antiarrhythmic Start: 11-26-2018 End: 08-24-2022 take 200 mg by mouth twice daily Amiodarone Discontinued 200 MG PO Twice daily November 26, 2018 1:00am August 24, 2022 7:31am Start: 04-26-2018 End: 05-26-2018 take 200 mg by mouth once daily Amiodarone Discontinue d 200 MG PO Daily April 26, 2018 12:00am May 26, 2018 8:30am take 1 tablet by elana th once daily Amiodarone 400 mg one tab orally once a day Active Aspir-81 81 MG (6 sources) take 1 tablet by mouth once daily Aspir-81 81 MG 1 tablet Orally Once a day Not-Taking aspirin 81 mg delayed release oral tablet (13 sources) Platelet Aggregation Inhibitor, Nonsteroidal Anti-inflammatory Drug Start: End: take 81 mg by mouth once daily Aspirin Discontinued 81 MG PO Daily November 26, 2018 1:00am August 24, 2022 7:31am Start: 04-26-2018 End: 05-26-2018 take 81 mg by mouth once daily Aspirin Discontinued 81 MG PO Daily April 26, 2018 12:00am May 26, 2018 8:31am clindamycin 300 mg oral capsule (3 sources) Lincosamide Antibacterial Start: 07-02-2022 End: 08-24-2022 take 600 mg by mouth three times daily Clindamycin Hcl Discontinued 600 MG PO Three times daily 10 22July 02, 2022 12:00am August 24, 2022 7:31am clopidogrel 75 mg oral tablet (3 sources) P2Y12 Platelet Inhibitor Start: 04-26-2018 End: 05-26-2018 take 75 mg by mouth once daily Clopidogrel Discontinued 75 MG PO Daily April 26, 2018 12:00am May 26, 2018 8:31am fluticasone propionate 0.05 mg/actuat metered dose nasal spray (6 sources) Corticosteroid Start: 11-26-2018 End: 08-11-2021 Fluticasone Propionate Discontinued 1 SPRAY INTRANASAL Daily November 26, 2018 1:00am August 11, 2021 1:14pm Start: 04-26-2018 End: 05-26-2018 Fluticasone Propionate Disco ntinued 1 SPRAY INTRANASAL Daily April 26, 2018 12:00am May 26, 2018 8:31am furosemide 40 mg oral tablet (3 sources) Loop Diuretic Start: 05-26-2018 End: 11-26-2018 take 40 mg by mouth once daily Furosemide Discontinued 40 MG PO Daily May 26, 2018 12:00am November 26, 2018 3:49pm glimepiride 1 mg oral tablet (3 sources) Sulfonylurea Start: 04-26-2018 End: 05-26-2018 take 0.5 mg by mouth once daily in the morning Glimepiride Discontinued 0.5 MG PO Every morning April 26, 2018 12:00am May 26, 2018 8:31am ketoconazole 20 mg/ml topical cream (20 sources) Azole Antifungal Start: 08-24-2022 End: 05-14-2023 Ketoconazole Discontinued 1 APPLIC TOPICAL Twice daily August 24, 2022 12:00am May 14, 2023 11:16pm Ketoconazole 2 % 1 application Externally Once a day Not-Taking Ketoconazole 2 % External Cream APPLY A THIN LAYER TO AFFECTED AREA(S) TWICE DAILY. as needed Quantity: 0 Refills: 0 Ordered: 15-Jun-2022 DO Active Ketoconazole 2 % External Cream APPLY A THIN LAYER TO AFFECTED AREA(S) TWICE DAILY. Quantity: 0 Refills: 0 Ordered: 07-Sep-2021 DO Active Multi Vitamin Oral Tablet (8 sources) take 1 tablet by mouth once daily Multi Vitamin Oral Tablet TAKE 1 TABLET DAILY. Quantity: 0 Refills: 0 Ordered: 07-Sep-2021 DO Active nitroglycerin 0.4 mg sublingual tablet (20 sources) Nitrate Vasodilator Start: 11-26-19 End: 05-14-20 Nitroglycerin Discontinued 0.4 MG SUBLINGUAL every 5 to 15 minutes November 26, 2018 1:00am May 14, 2023 11:18pm Start: 04-26-2018 End: 05-26-2018 Nitroglycerin (Nitrostat) 0. 4 mg Tablet, Sublingual Discontinued 0.4 MG SUBLINGUAL every 5 to 15 minutes April 26, 2018 12:00am May 26, 2018 8:31am Nitroglycerin 0. 4 MG as directed Sublingual Active Potassium (3 sources) Start: 05-26-2018 End: 08-11-2021 Potassium Discontinued TABLE T May 26, 2018 12:00am August 11, 2021 1:14pm potassium bicarbonate 20 meq effervescent oral tablet (20 sources) Start: 07-02-2022 End: 08-24-2022 Potassium Bicarbonate Discontinued 25 EACH PO 2 times daily July 02, 2022 12:00am August 24, 2022 7:31am Start: 07-02-2022 Potassium Bica rbonate Active 25 EACH PO 2 times daily July 02, 2022 12:00am Start: 08-11-2021 Potassium Bica rb-Citric Acid (Effer-K) 20 mEq Tablet, Effervescent Active 25 MEQ PO Twice daily August 11, 2021 12:00am Start: 08-11-2021 End: 05-14-2023 Potassium Bicarb-Citric Acid (Effer-K) 20 mEq tablet, effervescent Discontinued 20 MEQ PO Twice daily August 24, 2022 12:00am May 14, 2023 11:16pm take 1 tablet by elana th twice daily potassium bicarbonate (K-Lyte) 25 mEq effervescent tablet Take 1 tablet (25 mEq) by mouth 2 times a day. 0 Active Effer-K 25 MEQ O ral Tablet Effervescent TAKE DIRECTED. Quantity: 0 Refills: 0 Ordered: 07-Sep-2021 DO Active potassium citrate 10 meq extended release oral tablet (9 sources) Start: 04-26-2018 End: 08-11-2021 take 2 tablets by mouth once daily Potassium Citrate Discontinued 2 TAB PO Daily April 26, 2018 12:00am August 11, 2021 1:14pm Potassium Citrat e - 6000 Not-Taking sotalol hydrochloride 80 mg oral tablet (3 sources) Antiarrhythmic Start: 05-26-2018 End: 11-26-2018 Sotalol Discontinued 80 MG TABLET As Directed May 26, 2018 12:00am November 26, 2018 3:50pm tamsulosin hydrochloride 0.4 mg oral capsule (13 sources) alpha-Adrenergic Kisha Start: 11-26-2018 End: 08-24-2022 take 0.4 mg by mouth once daily Tamsulosin Discontinued 0.4 MG PO Daily November 26, 2018 1:00am August 24, 2022 7:31am Start: 04-26-2018 End: 05-26-2018 take 0.4 mg by mouth twice daily Tamsulosin Discontinued 0.4 MG PO Twice daily April 26, 2018 12:00am May 26, 2018 8:31am triamcinolone acetonide 40 mg/ml injectable suspension (20 sources) Corticosteroid Start: 06-23-2023 Kenalog-40 Jun, 60 mg Start: 08-24-2022 End: 05-14-2023 Triamcinolone Acetonide Disc ontinued 1 APPLIC TOPICAL Daily August 24, 2022 12:00am May 14, 2023 11:16pm Start: 11-26-2018 End: 08-11-2021 Triamcinolone Acetonide Disc ontinued November 26, 2018 1:00am August 11, 2021 1:13pm Start: 04-26-2018 End: 05-26-2018 Triamcinolone Acetonide Disc ontinued 1 APPLIC TOPICAL As Directed April 26, 2018 12:00am May 26, 2018 8:31am Triamcinolone Ac etonide OINT APPLY TO AFFECTED AREA TWICE DAILY DIRECTED. Quantity: 0 Refills: 0 Ordered: 07-Sep-2021 DO Active Problems Active Problems Problem Classification Problem Date Documented Date Episodic/Chronic Acute bronchitis (14 sources) Acute bronchitis; Translations: [Acute bronchitis due to other specified organisms] Onset: 08-27-2014 Episodic Anxiety disorders (20 sources) Generalized anxiety disorder; Translations: [Generalized anxiety disorder] Chronic Bacterial infection; unspecified site (7 sources) Bacterial infectious disease; Translations: [Other specified bacterial agents as the cause of diseases classified elsewhere] Episodic Calculus of urinary tract (18 sources) Calculus of kidney; Translations: [Kidney stone] Onset: 10-28-2022 Episodic Cardiac dysrhythmias (20 sources) Atrial flutter; Translations: [Atrial flutter] Onset: 05-30-2017 10-07-2023 Chronic Chronic kidney disease (20 sources) Chronic kidney disease stage 3A ; Translations: [Stage 3a chronic kidney disease] Onset: 05-15-2014 Chronic Chronic kidney disease (11 sources) Chronic kidney disease; Translations: [CHRONIC KIDNEY DISEASE STAGE 3A] Onset: 05-15-2014 Conduction disorders (20 sources) Complete atrioventricular block; Translations: [Atrioventricular block, complete] Onset: 07-02-2022 Chronic Coronary atherosclerosis and other heart disease (20 sources) Coronary atherosclerosis; Translations: [Coronary atherosclerosis of [place] coronary artery] Onset: 10-06-2023 Chronic Diabetes mellitus with complications (20 sources) Type 2 diabetes mellitus; Translations: [Type 2 diabetes mellitus with hyperglycemia] Onset: 02-23-2017 Chronic Diabetes mellitus without complication (17 sources) Diabetes mellitus; Translations: [Diabetes mellitus without mention of complication, type II or unspecified type, not stated as uncontrolled] Onset: 09-02-2022 Chronic Disorders of lipid metabolism (20 sources) Hyperlipidemia; Translations: [Other and unspecified hyperlipidemia] Onset: 12-23-2015 Chronic E Codes: Fall (7 sources) Fall; Translations: [Unspecified fall, initial encounter] Onset: 05-15-2023 03-07-2022 Episodic Essential hypertension (20 sources) Benign essential hypertension; Translations: [Benign essential hypertension] Onset: 10-06-2023 Chronic Hyperplasia of prostate (7 sources) Lower urinary tract symptoms due to benign prostatic hypertrophy; Translations: [Benign prostatic hyperplasia with lower urinary tract symptoms] Chronic Hypertension with complications and secondary hypertension (20 sources) Chronic kidney disease due to hypertension; Translations: [Hypertensive chronic kidney disease with stage 1 through stage 4 chronic kidney disease, or unspecified chronic kidney disease] Onset: 11-01-2022 Chronic Immunizations and screening for infectious disease (7 sources) Vaccination given; Translations: [Encounter for immunization] Episodic Mood disorders (7 sources) 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; Translations: [Major depressive disorder, single episode, in full remission] Chronic Nutritional deficiencies (11 sources) Vitamin D deficiency; Translations: [Vitamin D deficiency, unspecified] Chronic Open wounds of head; neck; and trunk (14 sources) Laceration of right eyebrow; Translations: [Laceration without foreign body of right eyelid and periocular area, initial encounter] Onset: 05-15-2023 03-07-2022 Episodic Osteoarthritis (20 sources) Osteoarthritis of knee; Translations: [Unilateral primary osteoarthritis, left knee] Chronic Other aftercare (12 sources) Drug therapy finding; Translations: [Long-term (current) use of other medications] Episodic Other aftercare (5 sources) Encounter for therapeutic drug level monitoring; Translations: [ENC THERAPEUTC DRUG LEVL MONITORING] Onset: 03-19-2023 Episodic Other aftercare (2 sources) terminal 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 operator (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) use of anticoagulants; Translations: [LONGTERM CURRNT USE ANTICOAGULANTS] Onset: 04-20-2023 Episodic Other aftercare (6 sources) Long-term current use of anticoagulant; Translations: [penitentiary (current) use of anticoagulants] Episodic Other aftercare (7 sources) Long-term current use of drug therapy; Translations: [Other [facility] (current) drug therapy] Episodic Other connective tissue disease (17 sources) History of total knee arthroplasty; Translations: [Presence of artificial knee joint, bilateral] Chronic Other connective tissue disease (5 sources) Disorder of musculoskeletal system; Translations: [Other symptoms and signs involving the musculoskeletal system] Episodic Other connective tissue disease (2 sources) Other symptoms and signs involving the musculoskeletal system; Translations: [Other symptoms and signs involving the musculoskeletal system] Episodic Other diseases of veins and lymphatics (20 sources) Peripheral venous insufficiency; Translations: [Venous insufficiency (chronic) (peripheral)] Episodic Other diseases of veins and lymphatics (3 sources) Venous insufficiency (chronic) (peripheral) Episodic Other fractures (1 source) Fracture of one rib, right side, initial encounter for closed fracture; Translations: [Fracture of one rib, right side, initial encounter for closed fracture] Onset: 05-15-2023 Episodic Other fractures (4 sources) Multiple fractures of ribs, left side, subsequent encounter for fracture with routine healing; Translations: [Closed fracture of multiple ribs of left side with routine healing, subsequent encounter] Episodic Other fractures (6 sources) Closed fracture of multiple left ribs; Translations: [Multiple fractures of ribs, left side, subsequent encounter for fracture with routine healing] Episodic Other infections; including parasitic (13 sources) History of sepsis; Translations: [Personal history of other infectious and parasitic diseases] Onset: 10-06-2023 10-06-2023 Episodic Other injuries and conditions due to external causes (3 sources) Closed injury of head; Translations: [Unspecified injury of head, initial encounter] 01-11-2022 Episodic Other injuries and conditions due to external causes (2 sources) Injury of head; Translations: [Unspecified injury of head, initial encounter] Onset: 10-06-2023 05-14-2023 Episodic Other injuries and conditions due to external causes (2 sources) Unspecified injury of head, initial encounter; Translations: [Head injury, unspecified] Onset: 05-15-2023 05-14-2023 Episodic Other injuries and conditions due to external causes (6 sources) History of fall; Translations: [History of falling] Episodic Other injuries and conditions due to external causes (1 source) History of falling; Translations: [History of falling] Episodic Other lower respiratory disease (13 sources) Dyspnea on exertion; Translations: [Shortness of breath] Onset: 10-06-2023 10-06-2023 Episodic Other lower respiratory disease (7 sources) Dyspnea; Translations: [Other forms of dyspnea] Episodic Other male genital disorders (3 sources) Impotence of organic origin; Translations: [Male erectile dysfunction, unspecified] Chronic Other male genital disorders (4 sources) Male erectile dysfunction, unspecified; Translations: [Erectile dysfunction (disorder)] Chronic Other nervous system disorders (15 sources) Chronic pain; Translations: [Other chronic pain] Chronic Other nervous system disorders (2 sources) Other chronic pain; Translations: [Other chronic pain] Chronic Other nervous system disorders (5 sources) Abnormal gait; Translations: [Unsteadiness on feet] Episodic Other nervous system disorders (2 sources) Unsteadiness on feet; Translations: [Unsteadiness on feet] Episodic Other non-traumatic joint disorders (16 sources) Arthralgia of the pelvic region and thigh; Translations: [Pain in left hip] Episodic Other non-traumatic joint disorders (1 source) Pain in left hip; Translations: [Hip pain, left] Episodic Other nutritional; endocrine; and metabolic disorders (20 sources) Body mass index 40+ - severely obese; Translations: [Body Mass Index 50.0-59.9, adult] Onset: 12-23-2015 Chronic Other nutritional; endocrine; and metabolic disorders (12 sources) Morbid obesity; Translations: [Morbid obesity] Chronic Other nutritional; endocrine; and metabolic disorders (3 sources) Morbid (severe) obesity due to excess calories; Translations: [Morbid (severe) obesity due to excess calories] Chronic Other nutritional; endocrine; and metabolic disorders (1 source) Body mass index (BMI) 50.0-59.9, adult Chronic Other nutritional; endocrine; and metabolic disorders (7 sources) Hyperuricemia 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 inflammatory arthritis and tophaceous disease; Translations: [Hyperuricemia 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 inflammatory arthritis and tophaceous disease] Episodic Other skin disorders (7 sources) Vesicular eczema of hands and/or feet; Translations: [Dyshidrosis [pompholyx]] Episodic Other upper respiratory disease (14 sources) Allergic rhinitis due to pollen; Translations: [Allergic rhinitis due to pollen] Chronic Other upper respiratory disease (6 sources) Seasonal allergic rhinitis; Translations: [Other seasonal allergic rhinitis] Onset: 08-17-2016 Chronic Other upper respiratory disease (2 sources) Allergic rhinitis due to pollen Chronic Other upper respiratory disease (1 source) Other seasonal allergic rhinitis; Translations: [Other seasonal allergic rhinitis] Onset: 08-17-2016 Chronic Peripheral and visceral atherosclerosis (7 sources) Atherosclerosis of [place] arteries of the extremities; Translations: [Unspecified atherosclerosis of [place] arteries of extremities, bilateral legs] Chronic Residual codes; unclassified (20 sources) Obstructive sleep apnea syndrome; Translations: [Obstructive sleep apnea (adult) (pediatric)] Chronic Residual codes; unclassified (12 sources) Obstructive sleep apnea (adult) (pediatric); Translations: [OBSTRUCTIVE SLEEP APNEA] Onset: 11-01-2022 Chronic Residual codes; unclassified (1 source) Swelling - edema - symptom; Translations: [Edema] Episodic Residual codes; unclassified (5 sources) Edema; Translations: [Edema] Onset: 10-06-2023 10-06-2023 Episodic Residual codes; unclassified (7 sources) Other specified personal risk factors, not elsewhere classified; Translations: [Personal risk factor] Episodic Screening and history of mental health and substance abuse codes (13 sources) Ex-smoker; Translations: [Personal history of tobacco use] Episodic Comment on above: QUIT 1997; Spondylosis; intervertebral disc disorders; other back problems (17 sources) Lumbosacral spondylosis without myelopathy; Translations: [Other spondylosis with radiculopathy, lumbar region] Chronic Spondylosis; intervertebral disc disorders; other back problems (1 source) Neck pain; Translations: [Cervicalgia] Onset: 10-06-2023 10-06-2023 Episodic Superficial injury; contusion (20 sources) Contusion of rib; Translations: [Contusion of right front wall of thorax, initial encounter] Onset: 05-03-2019 Resolved: 06-16-2020 03-07-2022 Episodic Syncope (6 sources) Syncope; Translations: [Syncope and collapse] Onset: 05-15-2023 05-14-2023 Episodic Unclassified (5 sources) Chronic atrial fibrillation, unspecified; Translations: [CHRONIC ATRIAL FIBRILLATION UNSPEC] Onset: 02-21-2023 Unclassified (1 source) Laceration without foreign body of other part of head, initial encounter; Translations: [Laceration without foreign body of other part of head, initial encounter] Onset: 08-24-2022 Viral infection (7 sources) Disease caused by 2019-nCoV; Translations: [COVID-19] Past or Other Problems Problem Classification Problem Date Documented Date Episodic/Chronic Allergic reactions (7 sources) Allergic contact dermatitis due to plants, except food; Translations: [Allergic contact dermatitis due to plants, except food] Onset: 09-20-2018 Episodic Genitourinary symptoms and ill-defined conditions (14 sources) Dysuria; Translations: [Dysuria] Onset: 05-30-2017 Episodic Inflammatory conditions of male genital organs (7 sources) Acute prostatitis; Translations: [Acute prostatitis] Onset: 06-27-2017 Episodic Intracranial injury (9 sources) Concussion injury of body structure; Translations: [Concussion] Onset: 05-03-2019 08-24-2022 Episodic Joint disorders and dislocations; trauma-related (7 sources) Dislocation of proximal interphalangeal joint of left little finger, subsequent encounter; Translations: [Dislocation of proximal interphalangeal joint of left little finger, subsequent encounter] Onset: 05-04-2018 Episodic Nonspecific chest pain (7 sources) Chest pain; Translations: [Chest pain, unspecified] Onset: 05-06-2017 Episodic Other connective tissue disease (7 sources) Pain in limb; Translations: [Pain in left finger(s)] Resolved: 06-16-2020 Episodic Other diseases of veins and lymphatics (4 sources) Chronic venous hypertension (idiopathic) with ulcer of unspecified lower extremity; Translations: [Chronic venous hypertension (idiopathic) with ulcer of unspecified lower extremity] Resolved: 02-28-2022 Chronic Other diseases of veins and lymphatics (3 sources) Venous ulcer of lower extremity due to chronic peripheral venous hypertension; Translations: [Chronic venous hypertension (idiopathic) with ulcer of unspecified lower extremity] Resolved: 02-28-2022 Chronic Other screening for suspected conditions (not mental disorders or infectious disease) (17 sources) Other specified abnormal findings of blood chemistry; Translations: [Electrocardiogram abnormal] Onset: 12-23-2015 Episodic Other upper respiratory infections (7 sources) Acute sinusitis; Translations: [Acute sinusitis, unspecified] Onset: 10-20-2015 Episodic Septicemia (except in labor) (7 sources) Other streptococcal sepsis; Translations: [Other streptococcal sepsis] Onset: 05-30-2017 Episodic Skin and subcutaneous tissue infections (14 sources) Cellulitis of left lower limb; Translations: [Cellulitis of left lower limb] Onset: 07-02-2019 Resolved: 02-23-2021 Episodic Unclassified (9 sources) Permanent atrial fibrillation; Translations: [Permanent atrial fibrillation] Onset: 05-15-2023 Unclassified (1 source) Onset: 10-07-2023 10-07-2023 Results Test Name Value Interpretation Reference Range Facility Consent for Treatmenton Consent for Treatment [id number] Normal [facility] Complete Blood Count Auto Di ffon 05-16-2023 Basophils (Bld) [#/Vol] 0.1 10*3/uL Normal 0.0-0.2 [facility] Comment on above: Result Comment: PERF ORMED BY: [place] [address] PATHOLOGIST UNDERTAKER HELPER CORAL GOLD M.D. Performed By: #### C BC #### [address] Basophils/100 WBC (Bld) 0.7 % Normal . [facility] Comment on above: Performed By: #### C BC #### [address] Eosinophils (Bld) [#/Vol] 0.2 10*3/uL Normal 0.0-0.45 [facility] Comment on above: Performed By: #### C BC #### [address] Eosinophils/100 WBC (Bld) 2.3 % Normal . [facility] Comment on above: Performed By: #### C BC #### [address] Erythrocyte distribution width (RBC) [Ratio] 15.8 % High 12.0-14.8 [facility] Comment on above: Performed By: #### C BC #### [address] Hematocrit (Bld) [Volume fraction] 36.9 % Low 38.8-50.0 [facility] Comment on above: Performed By: #### C BC #### [address] Hemoglobin (Bld) [Mass/Vol] 12.3 g/dL Low 13.0-17.0 [facility] Comment on above: Performed By: #### C BC #### [address] Lymphocytes (Bld) [#/Vol] 1.5 10*3/uL Normal 1.00-4.8 [facility] Comment on above: Performed By: #### C BC #### [address] Lymphocytes/100 WBC (Bld) 17.4 % Normal . [facility] Comment on above: Performed By: #### C BC #### [facility] [address] MCH (RBC) [Entitic mass] 30.5 pg Normal 27.5-35.2 [facility] Comment on above: Performed By: #### C BC #### [facility] [address] MCV (RBC) [Entitic vol] 91.1 fL Normal 83.5-101 [facility] Comment on above: Performed By: #### C BC #### [facility] [address] Mean Corpuscular HGB Conc 33.5 g/dL Normal 32.5-35.6 [facility] Comment on above: Performed By: #### C BC #### [facility] [address] Monocytes (Bld) [#/Vol] 0.7 10*3/uL Normal 0.0-0.8 [facility] Comment on above: Performed By: #### C BC #### [facility] [address] [place] [address] [place] Monocytes/100 WBC (Bld) 7.8 % Normal . [facility] Comment on above: Performed By: #### C BC #### [facility] [address] Neutrophils (Bld) [#/Vol] 6.4 10*3/uL Normal 1.8-7.7 [facility] Comment on above: Performed By: #### C BC #### [facility] [address] [place] [address] [place] Neutrophils/100 WBC (Bld) 71.8 % Normal . [facility] Comment on above: Performed By: #### C BC #### [facility] [address] NRBC% 0.1 /100{WBC} Normal 0-0.5 [facility] Comment on above: Performed By: #### C BC #### [facility] [address] Platelet mean volume (Bld) [Entitic vol] 7.6 fL Normal 6.6-10.1 [facility] Comment on above: Performed By: #### C BC #### [facility] [address] Platelets (Bld) [#/Vol] 189 10*3/uL Normal 150-450 [facility] Comment on above: Performed By: #### C BC #### [facility] [address] RBC (Bld) [#/Vol] 4.05 10*6/uL Normal 3.90-5.60 [facility] Comment on above: Performed By: #### C BC #### [facility] [address] WBC (Bld) [#/Vol] 8.9 10*3/uL Normal 4.1-10.5 [facility] Comment on above: Performed By: #### C BC #### [address] ECG 12 lead ECGon 05-16-2023 ECG 12 lead ECG [facility] Main [place] [address] [place] [address] Electrocardiograph Report Signed Patient: Nirmal Chaidez MR#: [id number] 9 : 1945 Acct:[id number] Age/Sex: 77 / M ADM Date: 05/14/23 Loc: Room: [address] [place] [address] Type: DIS IN Attending Dr: Temo Valencia MD Ordering Provider: Milo Cameron MD, [facility] Date of Service: 05/16/23 ECG/ECG 12 lead ECG: HEART BLOCK Copies to: Test Reason : Blood Pressure : / mmHG Vent. Rate : 069 BPM Atrial Rate : 069 BPM P-R Int : 140 ms QRS Dur : 146 ms QT Int : 440 ms P-R-T Axes : 086 026 -45 degrees QTc Int : 471 ms Sinus rhythm Right bundle branch block Diffuse nonspecific ST and T wave changes Abnormal ECG When compared with ECG of 14-MAY-2023 20:29, No significant change was found Confirmed by [facility]LL [facility] ([id number] on 05/18/2023 5:10:17 PM Referred By: Electronically Signed By:MILO CAMERON MD [facility] Transcribed By: MUS Signed By Milo Cameron MD, [facility] 05/18/23 1710 Normal [facility] echo transthoracicon [facility] echo transthoracic [facility] [place] [address] Echocardiogram Signed Patient: Nirmal Chaidez MR#: [id number] 9 : 1945 Acct:[id number] Age/Sex: 77 / M ADM Date: 05/14/23 Loc: Room: [address] [place] [address] Type: ADM IN Attending Dr: Kelechi Funk MD Ordering Provider: Lalito Silva MD Date of Service: 05/16/23 [facility] echo transthoracic: syncope Copies to: Milo Cameron MD, [facility] Lalito Silva MD Weight: 307 lb Performed By: Marsha Gil RDCS BSA: 2.4 m2 BP: 105/68 mmHg HR: 84 Reason For Study: syncope History: Afib. COPD. HTN. QUETA. Pre-DM. Former Smoker. Interpretation Summary Ejection Fraction = 55-60%. The left ventricular size is normal. The right ventricle is borderline dilated. There is no prior echocardiogram noted for this patient. Procedure/Quality: A two-dimensional transthoracic echocardiogram with color flow, Doppler and injection of contrast agent Definity was performed. The study was technically suboptimal in quality due to poor acoustic windows . There is no prior echocardiogram noted for this patient. Left Ventricle: The left ventricular size is normal. Ejection Fraction = 55- 60%. Left Atrium: The left atrium is not well visualized. Right Atrium: The right atrium is not well visualized. Right Ventricle: The right ventricle is borderline dilated. Aortic Valve: The aortic valve is not well visualized. Mitral Valve: The mitral valve is not well visualized. Tricuspid Valve: The tricuspid valve is not well visualized. Pulmonic Valve: The pulmonic valve is not well visualized. Arteries: The aortic root is normal size. Pericardium/Pleura: No pericardial effusion seen. There is no pleural effusion. IVC/Hepatic Viens: The inferior vena cava was not visualized during the exam. Miscellaneous: Pacemaker wire seen. Measurements with Normals IVSd: 1.3 cm (0.7-1.1 cm)LVIDd: 5.0 cm (3.7-5.4 cm) LVPWd: 1.3 cm (0.7-1.1 cm)LVIDs: 4.4 cm (2.3-3.6 cm) LA dimension: 4.7 cm (2.3-4.0 cm)Ao root diam: 3.2 cm(2.0-3.6 cm) asc Aorta Diam: 3.8 cm(2.1-3.4cm) Doppler with Normals LV V1 max: 69.8 cm/sec (0.7-1.7m/s)MV E max yani: 78.4 cm/sec(0.8-1.3m/s) MV A max yani: 54.4 cm/sec(0.0-0.0m/s) MV E/A: 1.4 (<1.5) MMode/2D Measurements Calculations TAPSE: 2.0 cm FS: 11.7 % Ao root area: LVOT diam: 2.2 cm RV S Ayni: EDV(Teich): 8.1 cm2 LVOT area: 3.8 cm2 12.6 cm/sec 118.4 ml ESV(Teich): 88.6 ml EF(Teich): 25.2 % __ LVLd ap4: 8.9 cm SV(MOD-sp4): LAV(MOD-sp4): LA A2 area: 20.0 cm2 EDV(MOD-sp4): 103.2 ml 72.8 ml 184.0 ml LAV(MOD-sp2): LA A4 area: 25.7 cm2 LVLs ap4: 8.0 cm 64.8 ml LA length (vol): ESV(MOD-sp4): 7.1 cm 80.8 ml LA vol: 61.9 ml EF(MOD-sp4): 56.1 % LA vol index: 25.5 ml/m2 Doppler Measurements Calculations MV dec time: E/E' lat: 5.2 MV dec slope: Ao V2 max: 0.18 sec E/E' med: 9.6 95.0 cm/sec 430.3 cm/sec2 Ao max P.6 mmHg Ao mean P.3 mmHg Ao V2 mean: 71.8 cm/sec Ao V2 VTI: 18.0 cm SUSHMA(I,D): 2.9 cm2 SUSHMA(V,D): 2.8 cm2 __ LV V1 max PG: TV max PG: TR max yani: 2.0 mmHg 24.0 mmHg 244.3 cm/sec LV V1 mean PG: TR max P.9 mmHg 1.3 mmHg LV V1 mean: 55.8 cm/sec LV V1 VTI: 13.6 cm Transcribed By: SCV Performed At: 05/16/23 0954 Signed By: Milo Cameron MD, [facility] 05/16/23 1102 [facility] Prothrombin Time INRon 05-16 INR Coag (PPP) [Relative time] 2.3 {INR} [facility] Comment on above: Result Comment: INR Therapeutic Range A) Pre- and Peroperative OAT started two weeks before surgery. NOT HIP SURGERY: 1.5 - 2.5 HIP SURGERY: 2 - 3 B) Primary and secondary prevention of venous THROMBOSIS: 2 - 3 C) Active venous thrombosis, pulmonary embolism and prevention of recurrent venous thrombosis: 2 - 3 D) Prevention of arterial thromboembolism including patients with mechanical heart valves: 3 - 4.5 PERFORMED BY: [address] [place] [address] PATHOLOGIST UNDERTAKER HELPER CORAL GOLD M.D. Performed By: #### P TT, PT, ETOH, CBC, CMP #### [address] [place] [address] [facility] PT Coag (PPP) [Time] 26.4 s High 9.0-12.9 [facility] Comment on above: Performed By: #### P TT, PT, ETOH, CBC, CMP #### [facility] [address] [place], [place] [id number] [facility] CT cervical spine wo conon 0 05-15-2023 CT cervical spine wo con [facility] Main [place] [address] [place] [address] CT Scan Report Signed Patient: Nirmal Chaidez MR#: [id number] 9 : 1945 Acct:[id number] Age/Sex: 77 / M ADM Date: 05/14/23 Loc: Room: [address] [place] [address] Type: ADM IN Attending Dr: Kelechi Funk MD Copies to: DO Kelechi Edouard MD Ordering Provider: Ran Raines DO Date of Service: 05/14/23 CT/CT cervical spine wo con: fall ([id number]) CT/CT head/brain wo con: fall CT BRAIN WITHOUT CONTRAST: CLINICAL HISTORY: Fall. Laceration to right eyebrow area. COMPARISON: CT brain 08/24/2022 TECHNIQUE: Contiguous axial unenhanced images were obtained through the brain. This CT exam was performed using one or more following dose reduction techniques: Automated exposure control, adjustment of the mA and/or kV according to patient size, or use of iterative reconstruction technique. FINDINGS: There is no evidence of midline shift, intra or extra-axial fluid collection, hemorrhage or CT evidence of stroke. Cortical atrophy with chronic microvascular ischemic changes. Posterior fossa appears unremarkable. Visualized intraorbital contents appear unremarkable. Visualized paranasal sinuses are clear. Right frontal scalp hematoma. CT/CT head/brain wo con IMPRESSION: NO ACUTE INTRACRANIAL ABNORMALITY. CT CERVICAL SPINE WITHOUT CONTRAST WITH 3D RECONSTRUCTIONS: CLINICAL HISTORY: Fall. COMPARISON: None TECHNIQUE: Spiral axial unenhanced images were obtained through the cervical spine. Sagittal, coronal and 3D volume-rendered reconstructions were also reviewed. This CT exam was performed using one or more following dose reduction techniques: Automated exposure control, adjustment of the mA and/or kV according to patient size, or use of iterative reconstruction technique. FINDINGS: No acute fracture. Vertebral body heights appear maintained. Moderate spondylosis C3-T1 with endplate, uncovertebral facet joint degenerative changes. No prevertebral soft tissue swelling. IMPRESSION: NO CERVICAL SPINE FRACTURE Impression dictated by: Joselito Villalobos Jr., D.OLong05/15/2023 8:53 AM Dictation Location: [place] [address] Transcribed By: [facility] 05/15/23 0853 Dictated By: Joselito Villalobos Jr, DO 05/15/23 0850 Signed By: 05/15/23 0[address] [facility] [address] chest wo conon 05-15-2023 CT chest wo con [facility] Main [place] [address] [place] [address] CT Scan Report Signed Patient: Nirmal Chaidez MR#: [id number] 9 : 1945 Acct:[id number] Age/Sex: 77 / M ADM Date: 05/14/23 Loc: Room: [address] [place] [address] Type: ADM IN Attending Dr: Kelechi Funk MD Copies to: DO Kelechi Edouard MD Ordering Provider: Ran Raines DO Date of Service: 05/14/23 CT/CT chest wo con: fall CT CHEST WITHOUT IV CONTRAST: CLINICAL HISTORY: Fall right rib contusion COMPARISON: None TECHNIQUE: Spiral images were obtained through the chest without IV contrast. This CT exam was performed using one or more following dose reduction techniques: Automated exposure control, adjus tment of the mA and/or kV according to patient size, or use of iterative reconstruction technique. FINDINGS: Mediastinum:Pacemaker device is in place. Heart is normal in size. Pulmonary trunk appears nondilated. No pleural effusion. No lymphadenopathy. The esophagus is grossly unremarkable. Lungs:Dependent atelectatic changes. No consolidation pneumothorax or pleural effusion. Abd:No acute findings. Cystic changes involving the visualized kidneys. Soft tissues/Bones: Visualized soft tissue surrounding the chest wall demonstrate no acute findings. There are nondisplaced fractures of the left sixth and seventh ribs. No right-sided rib fractures are noted. Degenerative change. CT/CT chest wo con IMPRESSION: Nondisplaced fractures involving the left sixth and seventh ribs. No acute cardiopulmonary process is seen. Impression dictated by: Joselito Villalobos Jr., D.O.05/15/2023 8:56 AM Dictation Location: [place] [address] Transcribed By: [facility] 05/15/2356 Dictated By: Joselito Villalobos Jr, DO 05/15/2353 Signed By: 05/15/2356 Normal [facility] Complete Blood Count Auto Di ffon 05-15-2023 Basophils (Bld) [#/Vol] 0.1 10*3/uL Normal 0.0-0.2 [facility] Comment on above: Result Comment: PERF ORMED BY: [place] [address] PATHOLOGIST UNDERTAKER HELPER CORAL GOLD M.D. Performed By: #### P TT, PT, ETOH, CBC, CMP #### [address] Basophils/100 WBC (Bld) 0.6 % Normal . [facility] Comment on above: Performed By: #### P TT, PT, ETOH, CBC, CMP #### [facility] [address] Eosinophils (Bld) [#/Vol] 0.1 10*3/uL Normal 0.0-0.45 [facility] Comment on above: Performed By: #### P TT, PT, ETOH, CBC, CMP #### [address] Eosinophils/100 WBC (Bld) 1.3 % Normal . [facility] Comment on above: Performed By: #### P TT, PT, ETOH, CBC, CMP #### [facility] [address] Erythrocyte distribution width (RBC) [Ratio] 16.4 % High 12.0-14.8 [facility] Comment on above: Performed By: #### P TT, PT, ETOH, CBC, CMP #### [address] Hematocrit (Bld) [Volume fraction] 39.4 % Normal 38.8-50.0 [facility] Comment on above: Performed By: #### P TT, PT, ETOH, CBC, CMP #### [address] Hemoglobin (Bld) [Mass/Vol] 12.7 g/dL Low 13.0-17.0 [facility] Comment on above: Performed By: #### P TT, PT, ETOH, CBC, CMP #### [address] Lymphocytes (Bld) [#/Vol] 1.3 10*3/uL Normal 1.00-4.8 [facility] Comment on above: Performed By: #### P TT, PT, ETOH, CBC, CMP #### [address] Lymphocytes/100 WBC (Bld) 11.9 % Normal . [facility] Comment on above: Performed By: #### P TT, PT, ETOH, CBC, CMP #### [address] MCH (RBC) [Entitic mass] 29.6 pg Normal 27.5-35.2 [facility] Comment on above: Performed By: #### P TT, PT, ETOH, CBC, CMP #### [address] MCV (RBC) [Entitic vol] 91.9 fL Normal 83.5-101 [facility] Comment on above: Performed By: #### P TT, PT, ETOH, CBC, CMP #### [address] Mean Corpuscular HGB Conc 32.2 g/dL Low 32.5-35.6 [facility] [place] [facility] Comment on above: Performed By: #### P TT, PT, ETOH, CBC, CMP #### [address] Monocytes (Bld) [#/Vol] 0.7 10*3/uL Normal 0.0-0.8 [facility] [place] [facility] Comment on above: Performed By: #### P TT, PT, ETOH, CBC, CMP #### [address] Monocytes/100 WBC (Bld) 6.2 % Normal . [facility] Comment on above: Performed By: #### P TT, PT, ETOH, CBC, CMP #### [address] Neutrophils (Bld) [#/Vol] 8.4 10*3/uL High 1.8-7.7 [facility] [place] [facility] Comment on above: Performed By: #### P TT, PT, ETOH, CBC, CMP #### [address] Neutrophils/100 WBC (Bld) 80.0 % Normal . [facility] [place] [facility] Comment on above: Performed By: #### P TT, PT, ETOH, CBC, CMP #### [address] NRBC% 0.0 /100{WBC} Normal 0-0.5 [facility] [place] [facility] Comment on above: Performed By: #### P TT, PT, ETOH, CBC, CMP #### [address] Platelet mean volume (Bld) [Entitic vol] 7.8 fL Normal 6.6-10.1 [facility] [place] [facility] Comment on above: Performed By: #### P TT, PT, ETOH, CBC, CMP #### [place] [address] [place] Platelets (Bld) [#/Vol] 220 10*3/uL Normal 150-450 [facility] [place] [facility] Comment on above: Performed By: #### P TT, PT, ETOH, CBC, CMP #### [place] [address] [place] RBC (Bld) [#/Vol] 4.29 10*6/uL Normal 3.90-5.60 [facility] Comment on above: Performed By: #### P TT, PT, ETOH, CBC, CMP #### [address] [address] [place] WBC (Bld) [#/Vol] 10.6 10*3/uL High 4.1-10.5 [facility] Comment on above: Performed By: #### P TT, PT, ETOH, CBC, CMP #### [facility] [address] Comprehensive Metabolic Pane estrella 05-15-2023 Albumin [Mass/Vol] 3.5 g/dL Normal 3.5-5.7 [facility] Comment on above: Performed By: #### P TT, PT, ETOH, CBC, CMP #### [facility] [address] Albumin/Globulin [Mass ratio] 1.2 {ratio} Normal [facility] [place] [facility] Comment on above: Performed By: #### P TT, PT, ETOH, CBC, CMP #### [facility] [address] [place] [address] ALP [Catalytic activity/Vol] 82 U/L Normal 34-104 [facility] [place] [facility] Comment on above: Performed By: #### P TT, PT, ETOH, CBC, CMP #### [facility] [address] [place] [address] ALT [Catalytic activity/Vol] 8 U/L Normal 7-52 [facility] [place] [facility] Comment on above: Performed By: #### P TT, PT, ETOH, CBC, CMP #### [facility] [address] [place] [address] Anion gap [Moles/Vol] 11.1 mmol/L Normal 6.0-15.0 [facility] Comment on above: Performed By: #### P TT, PT, ETOH, CBC, CMP #### [facility] [address] [place] [address] AST [Catalytic activity/Vol] 11 U/L Low 13-39 [facility] [place] [facility] Comment on above: Performed By: #### P TT, PT, ETOH, CBC, CMP #### [facility] [address] [place] [address] Bilirubin [Mass/Vol] 0.5 mg/dL Normal 0.3-1.0 [facility] Comment on above: Performed By: #### P TT, PT, ETOH, CBC, CMP #### [address] Calcium [Mass/Vol] 9.0 mg/dL Normal 8.6-10.3 [facility] Comment on above: Performed By: #### P TT, PT, ETOH, CBC, CMP #### [address] Chloride [Moles/Vol] 102 mmol/L Normal 98-107 [facility] Comment on above: Performed By: #### P TT, PT, ETOH, CBC, CMP #### [address] CO2 [Moles/Vol] 27.9 mmol/L Normal 21.0-31.[address] [facility] Comment on above: Performed By: #### P TT, PT, ETOH, CBC, CMP #### [address] Creatinine [Mass/Vol] 1.73 mg/dL High 0.70-1.30 [facility] Comment on above: Performed By: #### P TT, PT, ETOH, CBC, CMP #### [address] Creatinine Clr Calc Pharmacy 48.40 [facility] Comment on above: Performed By: #### P TT, PT, ETOH, CBC, CMP #### [address] GFR/1.73 sq M.predicted MDRD (S/P/Bld) [Vol rate/Area] 40.155 mL/min/{1.73_m2} [facility] Comment on above: Performed By: #### P TT, PT, ETOH, CBC, CMP #### [address] Globulin (S) [Mass/Vol] 2.9 g/dL Normal [facility] Comment on above: Performed By: #### P TT, PT, ETOH, CBC, CMP #### [facility] [address] Glucose [Mass/Vol] 154 mg/dL High 70-100 [facility] Comment on above: Result Comment: [facility] Glucose Reference Range is dependent on time and content of last meal. Glucose of more than 200 mg/dL in a nonstressed, ambulatory subject supports the diagnosis of Diabetes Mellitus. ADA recommended reference range Performed By: #### P TT, PT, ETOH, CBC, CMP #### [facility] [address] Potassium [Moles/Vol] 4.0 mmol/L Normal 3.5-5.1 [facility] Comment on above: Performed By: #### P TT, PT, ETOH, CBC, CMP #### [address] Protein [Mass/Vol] 6.4 g/dL Normal 6.4-8.9 [facility] Comment on above: Performed By: #### P TT, PT, ETOH, CBC, CMP #### [address] Sodium [Moles/Vol] 137 mmol/L Normal 136-145 [facility] Comment on above: Performed By: #### P TT, PT, ETOH, CBC, CMP #### [address] Urea nitrogen [Mass/Vol] 41 mg/dL High 7-25 [facility] [place] [facility] Comment on above: Performed By: #### P TT, PT, ETOH, CBC, CMP #### [place] [address] [place] Partial Thromboplastin Timeo n 05-15-2023 aPTT Coag (Bld) [Time] 35.5 s Normal 25.1-36.5 [facility] Comment on above: Result Comment: PERF ORMED BY: [place] [address] PATHOLOGIST UNDERTAKER HELPER CORAL GOLD M.D. Performed By: #### P TT, PT, ETOH, CBC, CMP #### [address] Prothrombin Time INRon 05-15 INR Coag (PPP) [Relative time] 2.4 {INR} Normal [facility] [place] [facility] Comment on above: Result Comment: INR Therapeutic Range A) Pre- and Peroperative OAT started two weeks before surgery. NOT HIP SURGERY: 1.5 - 2.5 HIP SURGERY: 2 - 3 B) Primary and secondary prevention of venous THROMBOSIS: 2 - 3 C) Active venous thrombosis, pulmonary embolism and prevention of recurrent venous thrombosis: 2 - 3 D) Prevention of arterial thromboembolism including patients with mechanical heart valves: 3 - 4.5 Performed By: #### P TT, PT, ETOH, CBC, CMP #### [address] PT Coag (PPP) [Time] 27.6 s High 9.0-12.9 [facility] Comment on above: Performed By: #### P TT, PT, ETOH, CBC, CMP #### [address] Thyroid Stim Hormone w/Rflxo n 05-15-2023 Thyroid Stim Hormone w/Rflx 3.02 u[iU]/mL Normal 0.45-5.33 [facility] [place] [facility] Comment on above: Performed By: #### P TT, PT, ETOH, CBC, CMP #### [address] Vit. B12/Folate Profileon Cobalamin (Vitamin B12) [Mass/Vol] 246 pg/mL Normal 180-914 [facility] [place] [facility] Comment on above: Performed By: #### P TT, PT, ETOH, CBC, CMP #### [address] Folate 10.2 ng/mL Normal >5.9 [facility] [place] [facility] Comment on above: Result Comment: [place] te reference range: >5.9 ng/ml The WHO technical consultation on folate and vitamin b12 deficiencies has determined that folate concentrations less than 4 ng/ml are considered deficient. Performed By: #### P TT, PT, ETOH, CBC, CMP #### [facility] [address] [place] [id number] [facility] Vitamin D 25 Hydroxy Totalon 05-15-2023 Vitamin D 25 Hydroxy Total 7.2 ng/mL Low 30-100 [facility] [place] [facility] Comment on above: Result Comment: MARYURI MIN D STATUS 25(OH)VITAMIN D RANGE (ng/mL) Deficient <20 Insufficient 20 to <30 Sufficient 30 to 100 Reference: Manuela MF,Sharad NC, [place] TOVAR, et al. Evaluation,treatment, and prevention of vitamin D deficiency; an Endocrine Society clinical practice guideline. JCEM. 2010; 96(7):1911-30. PERFORMED BY: [place] [address] PATHOLOGIST UNDERTAKER HELPER CORAL GOLD M.D. Performed By: #### P TT, PT, ETOH, CBC, CMP #### [facility] [address] [place] [id number] [facility] Activated partial thrombopla stin time (aPTT) in platelet poor plasma by coagulation aOrdered By: Ran Raines on 05-14-2023 aPTT Coag (PPP) [Time] 33.4 s 25.1-36.5 [facility] Alanine aminotransferase [En zymatic activity/volume] in Serum or PlasmaOrdered By: Ran Raines on 05-14-2023 ALT [Catalytic activity/Vol] 8 U/L 7-52 [facility] Albumin [Mass/volume] in Ser um or Plasma by Bromocresol green (BCG) dye binding methoOrdered By: Ran Raines on 05-14-2023 Albumin BCG dye [Mass/Vol] 3.6 g/dL 3.5-5.7 [facility] Alkaline phosphatase [Enzyma tic activity/volume] in Serum or PlasmaOrdered By: Ran Raines on 05-14-2023 ALP [Catalytic activity/Vol] 87 U/L 34-104 [facility] Aspartate aminotransferase [ Enzymatic activity/volume] in Serum or PlasmaOrdered By: Ran Raines on 05-14-2023 AST [Catalytic activity/Vol] 13 U/L 13-39 [facility] Basophils Auto (Bld) [#/Vol] Ordered By: Ran Raines on 05-14-2023 Basophils (Bld) [#/Vol] 0.1 10*3/uL 0.0-0.2 [facility] Basophils/100 WBC Auto (Bld) Ordered By: Ran Raines on 05-14-2023 Basophils/100 WBC (Bld) 0.5 % . [facility] Bilirubin.total [Mass/volume ] in Serum or PlasmaOrdered By: Ran Raines on 05-14-2023 Bilirubin [Mass/Vol] 0.6 mg/dL 0.3-1.0 [facility] Calcium [Mass/volume] in Ser um or PlasmaOrdered By: Ran Raines on 05-14-2023 Calcium [Mass/Vol] 8.8 mg/dL 8.6-10.3 [facility] Carbon dioxide, total [Moles /volume] in Serum or PlasmaOrdered By: Ran Raines on 05-14-2023 CO2 [Moles/Vol] 25.7 mmol/L 21.0-31.[address] [facility] Chloride [Moles/volume] in S karla or PlasmaOrdered By: Ran Raines on 05-14-2023 Chloride [Moles/Vol] 99 mmol/L 98-107 [facility] Complete Blood Count Auto Di ffon 05-14-2023 Basophils (Bld) [#/Vol] 0.1 10*3/uL Normal 0.0-0.2 [facility] Comment on above: Result Comment: PERF ORMED BY: [facility] [address] [place] [address] PATHOLOGIST UNDERTAKER HELPER CORAL GOLD M.D. Performed By: #### P TT, PT, ETOH, CBC, CMP #### [facility] [address] [place] [address] [place] Basophils/100 WBC (Bld) 0.5 % Normal . [facility] Comment on above: Performed By: #### P TT, PT, ETOH, CBC, CMP #### [facility] [address] [place] [address] [place] Eosinophils (Bld) [#/Vol] 0.2 10*3/uL Normal 0.0-0.45 [facility] Comment on above: Performed By: #### P TT, PT, ETOH, CBC, CMP #### [address] Eosinophils/100 WBC (Bld) 1.7 % Normal . [facility] Comment on above: Performed By: #### P TT, PT, ETOH, CBC, CMP #### [address] Erythrocyte distribution width (RBC) [Ratio] 15.7 % High 12.0-14.8 [facility] Comment on above: Performed By: #### P TT, PT, ETOH, CBC, CMP #### [address] Hematocrit (Bld) [Volume fraction] 40.1 % Normal 38.8-50.0 [facility] Comment on above: Performed By: #### P TT, PT, ETOH, CBC, CMP #### [address] Hemoglobin (Bld) [Mass/Vol] 13.0 g/dL Normal 13.0-17.0 [facility] Comment on above: Performed By: #### P TT, PT, ETOH, CBC, CMP #### [address] Lymphocytes (Bld) [#/Vol] 1.6 10*3/uL Normal 1.00-4.8 [facility] [place] [facility] Comment on above: Performed By: #### P TT, PT, ETOH, CBC, CMP #### [address] Lymphocytes/100 WBC (Bld) 15.6 % Normal . [facility] Comment on above: Performed By: #### P TT, PT, ETOH, CBC, CMP #### [address] MCH (RBC) [Entitic mass] 29.8 pg Normal 27.5-35.2 [facility] Comment on above: Performed By: #### P TT, PT, ETOH, CBC, CMP #### [address] [place] [address] [place] MCV (RBC) [Entitic vol] 91.8 fL Normal 83.5-101 [facility] Comment on above: Performed By: #### P TT, PT, ETOH, CBC, CMP #### [facility] [address] Mean Corpuscular HGB Conc 32.5 g/dL Normal 32.5-35.6 [facility] Comment on above: Performed By: #### P TT, PT, ETOH, CBC, CMP #### [facility] [address] Monocytes (Bld) [#/Vol] 0.4 10*3/uL Normal 0.0-0.8 [facility] Comment on above: Performed By: #### P TT, PT, ETOH, CBC, CMP #### [address] Monocytes/100 WBC (Bld) 24.22 % High 0.00-20.00 [facility] Comment on above: Result Comment: For adults in ED, MDW > 20.0 may be associated with a higher risk of sepsis during the first 12 hrs of hospital admission Performed By: #### P TT, PT, ETOH, CBC, CMP #### [address] Monocytes/100 WBC (Bld) 4.0 % Normal . [facility] Comment on above: Performed By: #### P TT, PT, ETOH, CBC, CMP #### [address] Neutrophils (Bld) [#/Vol] 8.2 10*3/uL High 1.8-7.7 [facility] Comment on above: Performed By: #### P TT, PT, ETOH, CBC, CMP #### [address] Neutrophils/100 WBC (Bld) 78.2 % Normal . [facility] Comment on above: Performed By: #### P TT, PT, ETOH, CBC, CMP #### [address] NRBC% 0.1 /100{WBC} Normal 0-0.5 [facility] Comment on above: Performed By: #### P TT, PT, ETOH, CBC, CMP #### [address] Platelet mean volume (Bld) [Entitic vol] 7.6 fL Normal 6.6-10.1 [facility] Comment on above: Performed By: #### P TT, PT, ETOH, CBC, CMP #### [address] Platelets (Bld) [#/Vol] 225 10*3/uL Normal 150-450 [facility] Comment on above: Performed By: #### P TT, PT, ETOH, CBC, CMP #### [address] RBC (Bld) [#/Vol] 4.36 10*6/uL Normal 3.90-5.60 [facility] Comment on above: Performed By: #### P TT, PT, ETOH, CBC, CMP #### [address] WBC (Bld) [#/Vol] 10.5 10*3/uL Normal 4.1-10.5 [facility] Comment on above: Performed By: #### P TT, PT, ETOH, CBC, CMP #### [address] Comprehensive Metabolic Pane estrella 05-14-2023 Albumin [Mass/Vol] 3.6 g/dL Normal 3.5-5.7 [facility] Comment on above: Performed By: #### P TT, PT, ETOH, CBC, CMP #### [address] Albumin/Globulin [Mass ratio] 1.1 {ratio} Normal [facility] Comment on above: Performed By: #### P TT, PT, ETOH, CBC, CMP #### [address] [place] [address] [place] ALP [Catalytic activity/Vol] 87 U/L Normal 34-104 [facility] [place] [facility] Comment on above: Performed By: #### P TT, PT, ETOH, CBC, CMP #### [address] ALT [Catalytic activity/Vol] 8 U/L Normal 7-52 [facility] Comment on above: Performed By: #### P TT, PT, ETOH, CBC, CMP #### [address] Anion gap [Moles/Vol] 14.0 mmol/L Normal 6.0-15.0 [facility] Comment on above: Performed By: #### P TT, PT, ETOH, CBC, CMP #### [address] AST [Catalytic activity/Vol] 13 U/L Normal 13-39 [facility] Comment on above: Performed By: #### P TT, PT, ETOH, CBC, CMP #### [address] Bilirubin [Mass/Vol] 0.6 mg/dL Normal 0.3-1.0 [facility] Comment on above: Performed By: #### P TT, PT, ETOH, CBC, CMP #### [address] Calcium [Mass/Vol] 8.8 mg/dL Normal 8.6-10.3 [facility] Comment on above: Performed By: #### P TT, PT, ETOH, CBC, CMP #### [place] [address] [place] Chloride [Moles/Vol] 99 mmol/L Normal 98-107 [facility] Comment on above: Performed By: #### P TT, PT, ETOH, CBC, CMP #### [address] CO2 [Moles/Vol] 25.7 mmol/L Normal 21.0-31.[address] [facility] Comment on above: Performed By: #### P TT, PT, ETOH, CBC, CMP #### [facility] [address] Creatinine [Mass/Vol] 1.70 mg/dL High 0.70-1.30 [facility] Comment on above: Performed By: #### P TT, PT, ETOH, CBC, CMP #### [facility] [address] Creatinine Clr Calc Pharmacy 50.02 [facility] Comment on above: Result Comment: PERF ORMED BY: [place] [address] PATHOLOGIST UNDERTAKER HELPER CORAL GOLD M.D. Performed By: #### P TT, PT, ETOH, CBC, CMP #### [facility] [address] GFR/1.73 sq M.predicted MDRD (S/P/Bld) [Vol rate/Area] 41.007 mL/min/{1.73_m2} [facility] Comment on above: Performed By: #### P TT, PT, ETOH, CBC, CMP #### [facility] [address] Globulin (S) [Mass/Vol] 3.2 g/dL Normal [facility] Comment on above: Performed By: #### P TT, PT, ETOH, CBC, CMP #### [facility] [address] Glucose [Mass/Vol] 156 mg/dL High 70-100 [facility] Comment on above: Result Comment: [place] Glucose Reference Range is dependent on time and content of last meal. Glucose of more than 200 mg/dL in a nonstressed, ambulatory subject supports the diagnosis of Diabetes Mellitus. ADA recommended reference range Performed By: #### P TT, PT, ETOH, CBC, CMP #### [facility] [address] Potassium [Moles/Vol] 3.7 mmol/L Normal 3.5-5.1 [facility] Comment on above: Performed By: #### P TT, PT, ETOH, CBC, CMP #### [facility] [address] [place] [address] [place] Protein [Mass/Vol] 6.8 g/dL Normal 6.4-8.9 [facility] Comment on above: Performed By: #### P TT, PT, ETOH, CBC, CMP #### [facility] [address] [place] [address] [place] Sodium [Moles/Vol] 135 mmol/L Low 136-145 [facility] Comment on above: Performed By: #### P TT, PT, ETOH, CBC, CMP #### [facility] [address] Urea nitrogen [Mass/Vol] 38 mg/dL High 7-25 [facility] [place] [facility] Comment on above: Performed By: #### P TT, PT, ETOH, CBC, CMP #### [facility] [address] Creatinine [Mass/volume] in Serum or PlasmaOrdered By: Ran Raines on 05-14-2023 Creatinine [Mass/Vol] 1.70 mg/dL 0.70-1.30 [facility] ECG 12 lead ECGon 05-14-2023 ECG 12 lead ECG [facility] Main [place] [address] [place] [address] Electrocardiograph Report Signed Patient: Nirmal Chaidez MR#: [id number] 9 : 1945 Acct:[id number] Age/Sex: 77 / M ADM Date: 05/14/23 Loc: ER Room: Type: [facility] ER Attending Dr: Ordering Provider: Ran Raines DO Date of Service: 05/14/23 ECG/ECG 12 lead ECG: Fall Copies to: Test Reason : Blood Pressure : 119/064 mmHG Vent. Rate : 072 BPM Atrial Rate : 079 BPM P-R Int : 000 ms QRS Dur : 130 ms QT Int : 412 ms P-R-T Axes : 000 061 -55 degrees QTc Int : 451 ms Atrial fibrillation occasional paced beats Right bundle branch block Confirmed by Ran RAINES DO ([id number]) on 05/14/2023 10:32:52 PM Referred By: Electronically Signed By:Ran RAINES DO Transcribed By: MUS Signed By Ran Raines DO 0 05/14/232231 Normal [facility] Eosinophils Auto (Bld) [#/Vo l]Ordered By: Ran Raines on 05-14-2023 Eosinophils (Bld) [#/Vol] 0.2 10*3/uL 0.0-0.45 [facility] Eosinophils/100 WBC Auto (Bl d)Ordered By: Ran Raines on 05-14-2023 Eosinophils/100 WBC (Bld) 1.7 % . [facility] Erythrocyte distribution wid th Auto (RBC) [Ratio]Ordered By: Ran Raines on 05-14-2023 Erythrocyte distribution width (RBC) [Ratio] 15.7 % 12.0-14.8 [facility] Ethanol [Mass/volume] in Ser um or PlasmaOrdered By: Ran Raines on 05-14-2023 Ethanol [Mass/Vol] mg/dL [facility] Ethanol [Mass/Vol] TNP [facility] Comment on above: Test not performed Ethyl Alcohol Profileon 04-22 Ethanol [Mass/Vol] mg/dL Normal [facility] Comment on above: Performed By: #### P TT, PT, ETOH, CBC, CMP #### [facility] [address] [place] [address] Percent Ethanol Not performed Normal [facility] Comment on above: Result Comment: PERF ORMED BY: [place] [address] PATHOLOGIST UNDERTAKER HELPER CORAL GOLD M.D. Performed By: #### P TT, PT, ETOH, CBC, CMP #### [facility] [address] [place] [address] [place] Globulin Calc (S) [Mass/Vol] Ordered By: Ran Raines on 05-14-2023 Globulin (S) [Mass/Vol] 3.2 g/dL [facility] Glucose Glucometer (BldC) [M ass/Vol]Ordered By: Ran Raines on 05-14-2023 Glucose [Mass/Vol] 175 mg/dL [facility] Comment on above: Random Glucose Refer ence Range is dependent on time and content of last meal. Glucose of more than 200 mg/dL in a nonstressed, ambulatory subject supports the diagnosis of Diabetes Mellitus. Glucose Poct Glucometerson 0 05-14-2023 Glucose [Mass/Vol] 175 mg/dL Normal [facility] Comment on above: Result Comment: [place] Glucose Reference Range is dependent on time and content of last meal. Glucose of more than 200 mg/dL in a nonstressed, ambulatory subject supports the diagnosis of Diabetes Mellitus. PERFORMED BY: [place] [address] PATHOLOGIST UNDERTAKER HELPER CORAL GOLD M.D. Performed By: #### P TT, PT, ETOH, CBC, CMP #### [address] Glucose [Mass/volume] in Ser um or PlasmaOrdered By: Ran Raines on 05-14-2023 Glucose [Mass/Vol] 156 mg/dL 70-100 [facility] Comment on above: ADA recommended refe rence rangeRandom Glucose Reference Range is dependent on time and content of last meal. Glucose of more than 200 mg/dL in a nonstressed, ambulatory subject supports the diagnosis of Diabetes Mellitus. Hematocrit Auto (Bld) [Volum e fraction]Ordered By: Ran Raines on 05-14-2023 Hematocrit (Bld) [Volume fraction] 40.1 % 38.8-50.0 [facility] [place] [facility] Hemoglobin [Mass/volume] in BloodOrdered By: Ran Raines on 05-14-2023 Hemoglobin (Bld) [Mass/Vol] 13.0 g/dL 13.0-17.0 [facility] [place] [facility] Laboratory - CoagulationOrde red By: Ran Raines on 05-14-2023 PT Coag (PPP) [Time] 26.6 s 9.0-12.9 [facility] Leukocytes [#/volume] correc faraz for nucleated erythrocytes in Blood by Automated counOrdered By: Ran Raines on 05-14-2023 WBC corrected for nucl RBC Auto (Bld) [#/Vol] 10.5 10*3/uL 4.1-10.5 [facility] [place] [facility] Lymphocytes Auto (Bld) [#/Vo l]Ordered By: Ran Raines on 05-14-2023 Lymphocytes (Bld) [#/Vol] 1.6 10*3/uL 1.00-4.8 [facility] [place] [facility] Lymphocytes/100 WBC Auto (Bl d)Ordered By: Ran Raines on 05-14-2023 Lymphocytes/100 WBC (Bld) 15.6 % . [facility] [place] [facility] MCH Auto (RBC) [Entitic mass ]Ordered By: Ran Raines on 05-14-2023 MCH (RBC) [Entitic mass] 29.8 pg 27.5-35.2 [facility] [place] [facility] MCHC Auto (RBC) [Mass/Vol]Or dered By: Ran Raines on 05-14-2023 MCHC (RBC) [Mass/Vol] 32.5 g/dL 32.5-35.6 [facility] MCV Auto (RBC) [Entitic vol] Ordered By: Ran Raines on 05-14-2023 MCV (RBC) [Entitic vol] 91.8 fL 83.5-101 [facility] Monocyte distribution width [Entitic volume] in Blood by AutomatedOrdered By: Ran Raines on 05-14-2023 Monocyte distribution width Auto (Bld) [Entitic vol] 24.22 % 0.00-20.00 [facility] [place] [facility] Comment on above: For adults in ED, MD W > 20.0 may be associated with a higher risk of sepsis during the first 12 hrs of hospital admission Monocytes Auto (Bld) [#/Vol] Ordered By: Ran Raines on 05-14-2023 Monocytes (Bld) [#/Vol] 0.4 10*3/uL 0.0-0.8 [facility] Monocytes/100 WBC Auto (Bld) Ordered By: Ran Raines on 05-14-2023 Monocytes/100 WBC (Bld) 4.0 % . [facility] Neutrophils Auto (Bld) [#/Vo l]Ordered By: Ran Raines on 05-14-2023 Neutrophils (Bld) [#/Vol] 8.2 10*3/uL 1.8-7.7 [facility] [facility]/100 WBC Auto (Bl d)Ordered By: Ran Raines on 05-14-2023 Neutrophils/100 WBC (Bld) 78.2 % . [facility] No Panel InformationOrdered By: Ran Raines on 05-14-2023 Estimated GFR (CKD-EPI) 41.007 mL/Min [facility] Creatinine Clearance (Chem 50.02 [facility] Nucleated erythrocytes [Pres ence] in Blood by Automated countOrdered By: Ran Raines on 05-14-2023 Nucleated RBC Auto Ql (Bld) 0.1 /100{WBC} 0-0.5 [facility] Partial Thromboplastin Timeo n 05-14-2023 aPTT Coag (Bld) [Time] 33.4 s Normal 25.1-36.5 [facility] Comment on above: Result Comment: PERF ORMED BY: [place] [address] PATHOLOGIST UNDERTAKER HELPER CORAL GOLD M.D. Performed By: #### P TT, PT, ETOH, CBC, CMP #### [address] Platelet mean volume Auto (B ld) [Entitic vol]Ordered By: Ran Raines on 05-14-2023 Platelet mean volume (Bld) [Entitic vol] 7.6 fL 6.6-10.1 [facility] Platelet poor plasma interna tional normalized ratio (INR) by coagulation assay (relatOrdered By: Ran Raines on 05-14-2023 INR Coag (PPP) [Relative time] 2.3 {INR} [facility] Comment on above: INR Therapeutic Rang e A) Pre- and Peroperative OAT started two weeks before surgery. NOT HIP SURGERY: 1.5 - 2.5 HIP SURGERY: 2 - 3B) Primary and secondary prevention of venous THROMBOSIS: 2 - 3C) Active venous thrombosis, pulmonary embolismand prevention of recurrent venous thrombosis: 2 - 3D) Prevention of arterial thromboembolismincluding patients with mechanical heart valves: 3 - 4.5 Platelets Auto (Bld) [#/Vol] Ordered By: Ran Raines on 05-14-2023 Platelets (Bld) [#/Vol] 225 10*3/uL 150-450 [facility] Potassium [Moles/volume] in Serum or PlasmaOrdered By: Ran Raines on 05-14-2023 Potassium [Moles/Vol] 3.7 mmol/L 3.5-5.1 [facility] Protein [Mass/volume] in Ser um or PlasmaOrdered By: Ran Raines on 05-14-2023 Protein [Mass/Vol] 6.8 g/dL 6.4-8.9 [facility] Prothrombin Time INRon 05-14 INR Coag (PPP) [Relative time] 2.3 {INR} Normal [facility] Comment on above: Result Comment: INR Therapeutic Range A) Pre- and Peroperative OAT started two weeks before surgery. NOT HIP SURGERY: 1.5 - 2.5 HIP SURGERY: 2 - 3 B) Primary and secondary prevention of venous THROMBOSIS: 2 - 3 C) Active venous thrombosis, pulmonary embolism and prevention of recurrent venous thrombosis: 2 - 3 D) Prevention of arterial thromboembolism including patients with mechanical heart valves: 3 - 4.5 Performed By: #### P TT, PT, ETOH, CBC, CMP #### [facility] [address] PT Coag (PPP) [Time] 26.6 s High 9.0-12.9 [facility] Comment on above: Performed By: #### P TT, PT, ETOH, CBC, CMP #### [facility] [address] RBC Auto (Bld) [#/Vol]Ordere d By: Ran Raines on 05-14-2023 RBC (Bld) [#/Vol] 4.36 10*6/uL 3.90-5.60 [facility] Serum or plasma albumin/glob ulin mass ratioOrdered By: Ran Raines on 05-14-2023 Albumin/Globulin [Mass ratio] 1.1 {ratio} [facility] Serum or plasma anion gap de terminationOrdered By: Ran Raines on 05-14-2023 Anion gap [Moles/Vol] 14.0 mmol/L 6.0-15.0 [facility] Sodium [Moles/volume] in Ser um or PlasmaOrdered By: Ran Raines on 05-14-2023 Sodium [Moles/Vol] 135 mmol/L 136-145 [facility] Troponin I High Sensitivityo n 05-14-2023 Troponin I High Sensitivity 18.4 pg/mL Normal 0.0-20.0 [facility] Comment on above: Result Comment: PERF ORMED BY: [facility] [address] [place] [address] PATHOLOGIST UNDERTAKER HELPER CORAL GOLD M.D. Performed By: #### H S TROP #### [address] Troponin I.cardiac [Mass/vol ume] in Serum or Plasma by Detection limit <= 0.01 ng/Ordered By: Ran Raines on 05-14-2023 Troponin I.cardiac DL <= 0.01 ng/mL [Mass/Vol] 18.4 pg/mL 0.0-20.0 [facility] Urea nitrogen [Mass/volume] in Serum or PlasmaOrdered By: Ran Raines on 05-14-2023 Urea nitrogen [Mass/Vol] 38 mg/dL 7- [facility] WBC Auto (Bld) [#/Vol]Ordere d By: Ran Raines on 05-14-2023 WBC (Bld) [#/Vol] 10.5 10*3/uL 4.1-10.5 [facility] Cardiovascular Reporton Cardiovascular Report Please click on zeus simmons to see report [id number] z3NXn9D KI3wf4ZxPRi7YZBka3JhWLu2JH 5VsSIAS3VekBWfWUlmAXNyRoYh LQQjIe6RMnRpUl2tsDF4XY5I TlQwIDMgMCBSID4+SNmbF0Qzu4 SHJOYrPf5EKBByY6MmfEDdU3ed CQnfFgVzTZ3hN3AYIE4IsGFb ZUldID4+PXxIOnRwBX1jez4PWw LhAV0mlf9RNWjyFYotCRVdVA4t rnXggOOsK0KwgImtMLBrGw0w qSJpXnGlgJJcUNDwJPO2Et52TK K3VL7jM5Sww563meRtpjF7DLMc JaZyWswyxFZuZI1PyWE8GCHm I34vWBCnKUZoR6YhANl3ERP+Pg 3Ml2MqDSKmBMqBaa1L866COKB1 lfmBdT2+T1P3VBVMHZKSzDxI xyaZSfbF8SCG7tWsoSNVb3Fls8 Lq0Io7UorJcHgIOLHlHA4NKMlL szsmMSu44eB/fynK0SZRrHhR eHj+DcodFRNovdtOmmWS5BeNra suRUObrjn44jxcR2vLt/0lh5Fo Zlyjw082y+t4WTbJKW1Gr7sw WgplzKORK+p/q3Ojf6K+fg/fJI HXRoBud0Db5r7ZIVKScHSrxTgQ QXyqL9XKjJeengBTmjC7taDx 5wrXO4i1Faahz0HzoqdUyjOTc/ pVtKW14yIJAAOOoJ6V+8MCG9fr qjutsxB09z7GQYchtGq2icgR eRmU4BWVht8YFkvdE9rPh0ZMlP SwOW59vLylJBABAw9MIl1KLBa5 K2Im4DWf9KlD4HJKivaPvjKn kx4vEo6wkS6gTdNuZAcniHI8zA Kl8CDtWnBLWJo5n3pwdX3lpL3U i12Wr6rJ1tYnXQPv1Hrs5kvJ sDtIQ9mOpJyo0Xyjo7sB4bDBIf V3WOMFCTNZTQ3ybwFmO6D3XX/V 2+HTRTp8TMbE9dbnx34VSIYq kMLNHDOehQbaD460JfBlc+uQfq qaGkhB9E7vz+U7cKxbp9oyecak Dp/HIofF3XvRcJi8Xeui4bFX Sm60507AE9wEBl0GepkkvWl8qK AUy93fASwawkGwNUEsqAfWDFpp v6VV/JXWaF/qoPcP6j9Z9JHY KCZDWeynhidKiYJgyL8WJIA+Me B3ocJElLeOStL2BaCzxoIyKsq1 7o35Oi2LleDVcnJj97TC5+po 58e47ibUfcaXzmRfDMMzZwueqS AqaKHXXHhTNbFMC3QqCMO7h+E5 oQ48Ee1GHjP7d8IWtXEFmN+B Y9cj9lNkev7xtdGwOP9XjK+Fu5 Z1lgVFyPQSTPApPLq5EJ/ygWkV stKSz2KyiitYHeG6HtYKP95K ntDVli//87jDVufTtWfMRyr83V /QwuJS70ViQs4Jf6QWF9YM2rSC t5YvdsPzZ2O+auYb0BR3H/RB 6jFJIkWtHZK3zlKufY0PGU1pe9 KtCOlhAVQlPJ0yld9EAAzmIBi4 S3X4JOKaBYw3I4McYARwVQKV ID4+IYujR4HhirGzKUqjCm9VXP AzIDAgUiA+Re3ZWD2Mtc4aT6E9 ZQndLZBVLJ7FOOh4YE7EjNZc RFBkR0tiIQusDcEzQI1nY6MIEH A+Xn8BNWkzqaEgHqpFGdydUQUn GzcAIha8H4J4dYWlL0eXZmiz S4OhB4B8CnI7oQRqE1Sqlu5wU5 CUe8joFmOcNUYtYiNmOyKtAQGp SP9QJENvbHOpTXJtNSGuTOSA OV6VtFj3NTXfI2CnAUPdZSJze9 TdJU1YFR9cyMufQfX5OZ4+DQpz pBAaIT8FUzxX6Doje1OgOW3x 9wXq+iclnBI0MBUpVETOaKdBa+ aSOrQeiMtp2siw9VepPJ0XIulm KPFdfD7/xizFIcvZXX8gHM7v kUS+sk8c8qBF+61cjYyABPp9r0 yHp+4cX3cewQjvrKM14OK0c7Pz aRQy0Ain90PzNfqMB/i57bJv mBcuUqLI83Kh365xLQxAu1KgN5 1JpuxzMnCJ/p7AwRtX1xr09G8f +QCY4yqf+0rwY6RuFlQGbgGI czKAqOftb1RII5ZvCzEhRZNVHU wBP7QvW38IanUcHRBRwmt6bSzg rCSEGoly9Ax0au+p/Q++kw1b VmEPlX0t2lFZ2KjeNXUH3zYoMy Xc6hgNNhcnXRSPubB5p9QOX9se PYPzbtMgIKqUOIuQTCad09gp IqfWSar3hthxtq1xjN5jtm6MGG PSPoLaFdFDi7eG9F6+ZiuckU7Y LWigL9zvuiVXN11jTNEy83fh O5ySKcVBEtaX5oBRAh04coTITh sRX8seO63co0u+ht5l3zq+z/X5 RnrNWZC8tuzkWqPeezefx+8F S6R9j2jv9pjlamYrHZDiX5gH8v yF4HPykpf7ndRiFAk6xDYwrTs5 0ZwWYfbMkHxkTduKp5S133sd maYDhXayNVcgk6ylSq4hzNhfbY D1CstaZ5JJ4QRMUmFww1xqmlP4 4ap1uKcTd2xHv35ZQkcA1VU6 DtzqMxoo1oSHK6smWmkIXVhIsV Kl5BalDtzgYMHfBZQPk9IF6QLO Fs0+vS25A58Pa8Stl+LltcSm gIwPYVcGhBuFqxXGoNtBKQQI+D KPdOyQHLsNXOb5cpnjvLjl4SAs q0guh+gc5vk9f9Wy0jdV5Dwj YYcvALr39qmNvv/3yfE3e/HHI4 dQGF3l/h3QfgJl0DRxackcOmYO SugSyZcf1+55eA5Rl3Tx+dxf ecihUfsVRl3fnkb9axPTgXdIj6 IlQl95hSvaqy3H4im2iuhw1gaI Ig4ZYX0nn3RnSWNhMLzjnlRf PpsUMdIoJWFqv7VjHEf3WL4EuW KNL4TwiKZcVBjdXPTjDzPiUZMc Yf6AOnUlVc6tvVS6CD4DJwEc IDMgMCBSID4+FSiiS4Uwq2FDPT ObCf6FDRWaI5AspYTkO6mrJRju PhRzOW3pC6FTWD7FpKOdJNrt ID4+RJmQYnMoMA0ikx4NYPUfNF BgTrzTOej2Y6Y3wJMkT7nKEewq S0DgC0X6YmL2qOAzP6Alrc4t M3MDq9alCqQuBGVqIwVmYpEkMU kiImIjOI2SMHBiuPZjRVBrYBEj BGUABY1EwWh7KECwR8DyPXQr YVElu8TySL4FBT7fnZijXiyqOW 4+UHmdkSInSU3LMqkF9RtibgTj EP2V+NT0An8VNsxJoSJsJtnT EW6wAuD4BYTXMz96pMD5eXu8eC HPSnsYrrGebNB1olT7UoPHMNgo r7ktUICxP/dw9knD/R8dAMCE AQM7roi3hHI7hKVLX/V4m2naR9 cxjx6UNgCSliiLyMbbEG/h56a7 8q2CRZvqakguAvxA24XBD0RR wUS2+kIuAmOMwdW842EP0Kym1/ vrQO34gfJLdsGsgg4iaYh+gJWO pUIdrcfjHXqA9sLFQMCLmITb DCbl2DTMq4OiWU0Sexf1jVT7eh D72V0KdO19wG8HBNW4ydL3iEEG hrQJskoGedxZ9kvD8HQIluFT g0dLeXCE1k8lIsYqgBJ0OlCL1d yvI8FxHM5bQygG0CGPrqPnyLo0 6rFjE0iztzrdwSpwxcVojEg3 2v9cCtBRvzA/41Xg6ZOcS07Hcg JnRssNKQnGn9Bu9ooWj9D3+07W Rcg66SHqesIsVwDbdJsxbEPu lGdIhOJkhPZRxc+c9LQQCssmpM OZM6LW8cxKoHPO3ojsuQDoJzIB KtYhQHtL0+lX7oxuZ7H8JI0c Qic9FDB3CGVw3PzHioPIBJCUhC 6X5RWWbnm1uzgmGjm8/xHZnk+z ZSIHuPLg/pOIjQLR8EOirMB5 GSw1Eme4XNkwmNecKyDkuz7GdY WTXBXGoJtRKexpkqeRTuUeCehU EOD6HyO57n5rnnQ34P4IYvdb HMv3OdvR1ufG3kq+Sk6Le+mbeg 60C004Dd9QrsmXbHPZL/5pRKxm uZjoD6byS7db/t4W69RrFsza /ueAR2K5Y+WF/3E17Si5eSW63t 89PVz+xdgBP3reLiwomQZS/4hH EQwVMTijNxAXcr5VmVjzuhNL o48+8D2tjkuP1GnrfPohm5nPHy 34D9D+SULLx43RTkXgYFQ6qeJb oD6ZHP4lr0LaSHgcUJEjXD0g us3UXIxkNPr4N0U5QWWrYBd8B6 AwIDYgMCBSID4+XLkoS6XwodJb JQcsGo9BJGFpNDPyCkC+Pg0K GR3Fnt8gA3J5OCqxVLUTAW2TDT y0OE2LyEMfBRSuM2niEFxnXvXx TX5dR2XHRPN+Ki2CGLgsgcMk JgaYGdHbHMXpm4HqZUf5YQ3WsV MpNF4ME3ZuZNG0QV2KnVK9nECn AN5Om6HtTI8OYc52VUrdSBJz KFAqUou7RRG1WcS5DCFhCkQfx4 BxC0TdVHE5OKXoDpYlXpokiRPr TD5DlJW8TFAtA85wSXHcNTJx B7VkMGj5OVA+Se4Ab0OhEDZbSV vOkoXR233TDMH3qtaRzU3+xhLi cJuASbXnwUPW9zKDraVLboBI 18aZXqvThiKbuzXaEAa3I4rX51 jzXxNC8MMVrXYUU1Km4ClOM927 5M9fZqP6SXMdH+Bg1MfefCU1 NJHve+GnEaL0nuo/a52yfbMfZt ubO/cYo0uxxlQkDdc8NgdKkeAc aFAfYCRdNFwdPSOMgDGm8GfN /0tBMD5y/KhccrjtewdRqO7ytC WwT8VYZ2YeNTAdqi9ubqyf4BFH aWkAnkLXAxavWf3CrmfnrpgJ TkStHVodZNey6Q4kEOv21YkyZx cUntJbgTQTA1ShZqtQSzXc3v1u B1WW (more content not included)... Normal [facility] Consent for Treatmenton Consent for Treatment [id number] Normal [facility] Tobacco Screening.on 023 Adult depression screening assessment No [facility] BULX 250 DO Work Phone: Fall risk assessment a) No falls within the last year [facility] BULX 250 DO Work Phone: Tobacco use status [facility] b) No [facility] BULX 250 DO Work Phone: GLYCOHEMOGLOBIN A1Con 2022 ADA RECOMMENDATION SEE BELOW Normal [facility] Comment on above: Result Comment: ADA RECOMMENDED LIMIT 4.0 - 6.0 ADA THERAPEUTIC TARGET < 7.0 ACTION SUGGESTED > 7.0 Performed By: #### A 1C #### [facility] [address] [address] [address] Cuco Gilliam Glucose [Mass/Vol] 177 mg/dL Normal [facility] Comment on above: Performed By: #### A 1C #### [facility] [address] [address] [address] Cuco Gilliam HbA1c (Bld) [Mass fraction] 7.8 % Critically high 4.5-6.2 [facility] Comment on above: Performed By: #### A 1C #### [facility] [address] [address] [address] Cuco Gilliam Ambulatory Visit Summaryon 0 12-06-2022 Ambulatory Visit Summary NIRMAL CHAIDEZ :1945 Visit Date:12/06/2022 Ambulatory Visit Instructions Your Diagnosis BPH with urinary obstruction History of kidney stones Chronic prostatitis Tests Performed Urnls Dip Stick Auto w/o Microscopy POC 36574 XR Abdomen 1 View -- Results Pending -- Please visit your patient portal for your results or contact your primary care physician. Your Care Team Attending Physician - ARTHUR OCONNELL, Carlos Alberto Bunn Primary Care Physician - MODESTO CHAVARRIA DO This Is Your Medications List potassium bicarbonate (K-Effervescent 25 mEq oral tablet, effervescent) Contact prescribing physician if questions or concerns allopurinol (allopurinol 300 mg Tab) citalopram (citalopram 20 mg Tab) cyanocobalamin (cyanocobalamin 1000 mcg Tab) hydrochlorothiazide-lisino pril (hydrochlorothiazide-lisin opril 12.5 mg-20 mg Tab) pravastatin (pravastatin 40 mg Tab) torsemide (torsemide 10 mg Tab) warfarin Procedures Performed Transurethral resection of prostate (10/01/2021), Urodynamics (08/18/2021), Cystoscope (06/23/2021), ESWL - Extracorporeal shockwave lithotripsy for renal calculus (07/06/2018), Placement of stent in cardiac conduit (05/21/2017), ESWL - Extracorporeal shockwave lithotripsy for renal calculus (05/05/2017), ESWL - Extracorporeal shockwave lithotripsy for renal calculus (01/22/2016), ESWL - Extracorporeal shockwave lithotripsy for renal calculus (01/15/2016), Cystoscopy (04/05/2014), Spermatocelectomy (07/27/2012), Cystoscopy (08/20/2011), ESWL - Extracorporeal shockwave lithotripsy for renal calculus (08/05/2011), Cystoscopy (07/15/2011), ESWL - Extracorporeal shockwave lithotripsy for renal calculus (07/08/2011), ESWL - Extracorporeal shockwave lithotripsy for renal calculus (06/24/2011), Cystoscopic insertion of ureteric stent (06/10/2011), Arthroscopy of knee, Laparoscopic repair of umbilical hernia. Discharge Vitals Height 167 cm Height 66 in Weight 143 kg Weight 314.6 lb BMI 51.27 What to do next Scheduled Follow-Up Appointments 2022 9:00 AM EDT With: Where: [facility] Tuesday 8:00 AM EST With: Carlos Alberto GIBSON MD Where: [facility] Patient Educationon 12-06-19 23 Patient Education Urology Benign Prostatic Hyperplasia Benign prostatic hyperplasia (BPH) is an enlarged prostate gland that is caused by the normal aging process and not by cancer. The prostate is a walnut-sized gland that is involved in the production of semen. It is located in front of the rectum and below the bladder. The bladder stores urine and the urethra is the tube that carries the urine out of the body. The prostate may get bigger as a man gets older. An enlarged prostate can press on the urethra. This can make it harder to pass urine. The build-up of urine in the bladder can cause infection. Back pressure and infection may progress to bladder damage and kidney (renal) failure. What are the causes? This condition is part of a normal aging process. However, not all men develop problems from this condition. If the prostate enlarges away from the urethra, urine flow will not be blocked. If it enlarges toward the urethra and compresses it, there will be problems passing urine. What increases the risk? This condition is more likely to develop in men over the age of 50 years. What are the signs or symptoms? Symptoms of this condition include: ? Getting up often during the night to urinate. ? Needing to urinate frequently during the day. ? Difficulty starting urine flow. ? Decrease in size and strength of your urine stream. ? Leaking (dribbling) after urinating. ? Inability to pass urine. This needs immediate treatment. ? Inability to completely empty your bladder. ? Pain when you pass urine. This is more common if there is also an infection. ? Urinary tract infection (UTI). How is this diagnosed? This condition is diagnosed based on your medical history, a physical exam, and your symptoms. Tests will also be done, such as: ? A post-void bladder scan. This measures any amount of urine that may remain in your bladder after you finish urinating. ? A digital rectal exam. In a rectal exam, your health care provider checks your prostate by putting a lubricated, gloved finger into your rectum to feel the back of your prostate gland. This exam detects the size of your gland and any abnormal lumps or growths. ? An exam of your urine (urinalysis). ? A prostate specific antigen (PSA) screening. This is a blood test used to screen for prostate cancer. ? An ultrasound. This test uses sound waves to electronically produce a picture of your prostate gland. Your health care provider may refer you to a specialist in kidney and prostate diseases (urologist). How is this treated? Once symptoms begin, your health care provider will monitor your condition (active surveillance or watchful waiting). Treatment for this condition will depend on the severity of your condition. Treatment may include: ? Observation and yearly exams. This may be the only treatment needed if your condition and symptoms are mild. ? Medicines to relieve your symptoms, including: ? Medicines to shrink the prostate. ? Medicines to relax the muscle of the prostate. ? Surgery in severe cases. Surgery may include: ? Prostatectomy. In this procedure, the prostate tissue is removed completely through an open incision or with a laparoscope or robotics. ? Transurethral resection of the prostate (TURP). In this procedure, a tool is inserted through the opening at the tip of the penis (urethra). It is used to cut away tissue of the inner core of the prostate. The pieces are removed through the same opening of the penis. This removes the blockage. ? Transurethral incision (TUIP). In this procedure, small cuts are made in the prostate. This lessens the prostate's pressure on the urethra. ? Transurethral microwave thermotherapy (TUMT). This procedure uses microwaves to create heat. The heat destroys and removes a small amount of prostate tissue. ? Transurethral needle ablation (TUNA). This procedure uses radio frequencies to destroy and remove a small amount of prostate tissue. ? Interstitial laser coagulation (ILC). This procedure uses a laser to destroy and remove a small amount of prostate tissue. ? Transurethral electrovaporization (TUVP). This procedure uses electrodes to destroy and remove a small amount of prostate tissue. ? Prostatic urethral lift. This procedure inserts an implant to push the lobes of the prostate away from the urethra. Follow these instructions at home: ? Take ofpy-uao-hkpwlrp and prescription medicines only as told by your health care provider. ? Monitor your symptoms for any changes. Contact your health care provider with any changes. ? Avoid drinking large amounts of liquid before going to bed or out in public. ? Avoid or reduce how much caffeine or alcohol you drink. ? Give yourself time when you urinate. ? Keep all follow-up visits as told by your health care provider. This is important. Contact a health care provider if: ? You have unexplained back pain. ? Your symptoms do not get better with treatment. ? You d (more content not included)... Normal [facility] Urology Office/Clinic Noteon 12-06-2022 Urology Office/Clinic Note Chief Complaint 8m PSA HPI Staff 8m KUB due to Hx of Kidney Stones. Additional DX: BPH & Prostatitis. 9S/P TURP done 10/01/21) KUB done 10/28/22 *Effer K 20meq BID therapy. (Per EMR message from 12/28/21, pt's pharmacy does not carry the 25meq, script was changed to 20meq) Denies signs/symptoms of Kidney Stones. 1x/night, ongoing for yrs. No current concerns with voiding. Did have pacemaker put in this past May. History of Present Illness Tests reviewed: reviewed UA, KUB. I have reviewed the previous health record information and history for this patient from Dr. Gibson. I have reviewed and verified the staff HPI to be accurate for this encounter. There have been no associated fever, chills, flank pain, or blood in the urine. Denies any urinary infections since last encounter. Review of Systems PHQ Score Initial Depression Screen Score: 0 ROS - Provider Constitutional: denies weight loss, denies hot flashes. Eyes: denies eye problems. Gastrointestinal: denies nausea, denies vomiting. Cardiovascular: denies chest pain or angina. Integumentary: no dryness Musculoskeletal: denies musculoskeletal symptoms. ENMT: denies otolaryngeal symptoms. Respiratory: no shortness of breath. Heme/Lymph: denies easy bleeding tendency, denies easy bruising tendency. Psychiatric: no confusion, no anxiety. Genitourinary: See HPI. Physical Exam Vitals & Measurements HT: 66 in HT: 167 cm WT: 143 kg WT: 314.6 lb BMI: 51.27 General Appearance: alert, no distress, well nourished, well developed male. Genitourinary: normal scrotum, normal testes, normal urethra, normal epididymis, normal vas deferens/spermatic cord. Flank Pain: none. Bladder: nonpalpable. Assessment/Plan Pt had pacemaker placed in May 2022. 1. BPH with urinary obstruction (N40.1: Benign prostatic hyperplasia with lower urinary tract symptoms) PSA: 10/28/20 - 1.33 S/P TURP done 10/01/21. Ongoing nocturia 1x/night, ongoing for years. Pt has occasional urgency. Discussed urgency could be due to high fluid intake. No longer need PSA since pt is over 75. 2. History of kidney stones (Z87.442: Personal history of urinary calculi) KUB done 10/28/22 shows 2 small calcifications within the lower right pelvis which are stable, favoring phleboliths. No calcifications in the kidneys or ureters. Pt taking Effer-K 20 mEq BID (pharmacy does not carry the 25 mEq so script was changed to 20 mEq). Pt denies any stone sxs/complications since prior encounter. Advised pt to keep taking Effer-K for stone prevention. Refill sent to [facility] (pt confirmed pharmacy). Follow up in 1 year with KUB. -Continue Effer-K -Keep fluid intake high 3. Chronic prostatitis (N41.1: Chronic prostatitis) S/P TURP done 10/01/21 showed chronic inflammation. UA today negative for blood and infection. Follow-up With When Contact Information ARTHUR OCONNELL, Carlos Alberto Bunn, [facility] [address], [place] [address]- Additional Instructions: f/u 1 yr w/KUB Patient Education Benign Prostatic Hyperplasia I, Daphne Jasso, personally scribed for Dr. Gibson on 12/06/2022 12:01:17. . Documentation recorded by the scribe, Daphne Jasso, accurately reflects the services(s) I performed and decisions made by me. Authenticated by Dr. Gibson on 12/06/2022 12:03:35. Problem List/Past Medical History Ongoing Anticoagulated Atrial fibrillation BMI 40.0-44.9, adult BPH with urinary obstruction Chronic prostatitis Coronary artery disease Diabetes Former smoker Gout Gross hematuria History of kidney stones Hypertension Kidney stone Morbid obesity Prostatitis Right nephrolithiasis Urinary urgency Historical Atrial fibrillation Procedure/Surgical History Transurethral resection of prostate (10/01/2021), Urodynamics (08/18/2021), Cystoscope (06/23/2021), ESWL - Extracorporeal shockwave lithotripsy for renal calculus (07/06/2018), Placement of stent in cardiac conduit (05/21/2017), ESW[facility] - Extracorporeal shockwave lithotripsy for renal calculus (05/05/2017), ESW[facility] - Extracorporeal shockwave lithotripsy for renal calculus (01/22/2016), ESW[facility] - Extracorporeal shockwave lithotripsy for renal calculus (01/15/2016), Cystoscopy (04/05/2014), Spermatocelectomy (07/27/2012), Cystoscopy (08/20/2011), ESWL - Extracorporeal shockwave lithotripsy for renal calculus (08/05/2011), Cystoscopy (07/15/2011), ESW[facility] - Extracorporeal shockwave lithotripsy for renal calculus (07/08/2011), ESWL - Extracorporeal shockwave lithotripsy for renal calculus (06/24/2011), Cystoscopic insertion of ureteric stent (06/10/2011), Arthroscopy of knee, Laparoscopic repair of umbilical hernia. Medications allopurinol 300 mg Tab, 300 mg= 1 tab(s), Oral, Daily citalopram 20 mg Tab, 20 mg= 1 tab(s), Oral, Daily cyanocobalamin 1000 mcg Tab, 1000 mcg= 1 tab(s), Oral, Daily Effer-K 25 mEq oral tablet, effervescent, 25 mEq= 1 (more content not included)... Normal [facility] Comment on above: Result Comment: Elec tronically Signed By: Carlos Alberto GIBSON MD\.br\Date and Time Signed: 12/06/22 12:03 EST\.br\Electronically Co-Signed By: Daphne Jasso\.br\Date and Time Co-Signed: 12/06/22 12:01 EST RAD - MISCon 10-31-2022 RAD - MISC [id number] Normal [facility] CBC AUTO DIFFon 10-28-2022 BASO # 0.0 103/ul Normal 0.0-0.1 [facility] Comment on above: Performed By: #### C BC #### [facility] [address] [place], [place] [address] Dr. Cuco Gilliam Basophils/100 WBC (Bld) 0.4 % Normal 0.2-2.0 [facility] Comment on above: Performed By: #### C BC #### [facility] [address] [place], [place] [address] Dr. Cuco Gilliam EO # 0.1 103/ul Normal 0.0-0.7 [facility] Comment on above: Performed By: #### C BC #### [facility] [address] [place] [address] Dr. Cuco Gilliam Eosinophils/100 WBC (Bld) 0.9 % Normal 0.9-7.0 [facility] Comment on above: Performed By: #### C BC #### [facility] [address] [place] [address] Dr. Cuco Gilliam Erythrocyte distribution width (RBC) [Ratio] 15.9 % Critically high 11.0-15.0 [facility] Comment on above: Performed By: #### C BC #### [facility] [address] [place] [address] Dr. Cuco Gilliam Hematocrit (Bld) [Volume fraction] 47.8 % Normal 42.0-54.0 [facility] Comment on above: Performed By: #### C BC #### [facility] [address] [place] [address] Dr. Cuco Gilliam Hemoglobin (Bld) [Mass/Vol] 14.9 g/dL Normal 14.0-18.0 [facility] Comment on above: Performed By: #### C BC #### [facility] [address] [place] [address] Dr. Cuco Gilliam IG # 0.05 10e3/ul Critically high 0.00-0.03 [facility] Comment on above: Performed By: #### C BC #### [facility] [address] [place] [address] Dr. Cuco Gilliam IG % 0.5 % Normal 0.0-0.5 [facility] Comment on above: Performed By: #### C BC #### [facility] [address] [place] [address] Dr. Cuco Gilliam LYMPH # 1.8 103/ul Normal 1.2-3.8 [facility] Comment on above: Performed By: #### C BC #### [facility] [address] [place] [address] Dr. Cuco Gilliam Lymphocytes/100 WBC (Bld) 17.3 % Critically low 20.5-60.0 [facility] Comment on above: Performed By: #### C BC #### [facility] [address] [place] [address] Dr. Cuco Gilliam MANUAL DIFF REQ NO Normal [facility] Comment on above: Performed By: #### C BC #### [facility] [address] [place] [address] Dr. Cuco Gilliam MCH (RBC) [Entitic mass] 28.4 pg Normal 25.9-34.0 [facility] Comment on above: Performed By: #### C BC #### [facility] [address] [place] [address] Dr. Cuco Gilliam MCHC (RBC) [Mass/Vol] 31.2 g/dL Normal 29.9-35.2 [facility] Comment on above: Performed By: #### C BC #### [facility] [address] [place] [address] Dr. Cuco Gilliam MCV (RBC) [Entitic vol] 91.2 fL Normal 80.0-94.0 [facility] Comment on above: Performed By: #### C BC #### [facility] [address] [place] [address] Dr. Cuco Gilliam MONO # 0.7 103/ul Normal 0.3-0.8 [facility] Comment on above: Performed By: #### C BC #### [facility] [address] [place] [address] Dr. Cuco Gilliam Monocytes/100 WBC (Bld) 6.8 % Normal 1.7-12.0 [facility] Comment on above: Performed By: #### C BC #### [facility] [address] [place] [address] Dr. Cuco Gilliam NEUT # 7.7 103/ul Critically high 1.4-6.5 [facility] Comment on above: Performed By: #### C BC #### [facility] [address] [place] [address] Dr. Cuco Gilliam Neutrophils/100 WBC (Bld) 74.1 % Normal 43.0-75.0 [facility] Comment on above: Performed By: #### C BC #### [facility] [address] [address] [address] Cuco Gilliam Platelet mean volume (Bld) [Entitic vol] 9.1 fL Critically low 9.5-13.5 [facility] Comment on above: Performed By: #### C BC #### [facility] [address] [address] [address] Cuco Gilliam PLT 218 103/ul Normal 150-450 [facility] Comment on above: Performed By: #### C BC #### [facility] [address] [place] [address] Dr. Cuco Gilliam RBC 5.24 106/ul Normal 4.70-6.10 [facility] Comment on above: Performed By: #### C BC #### [facility] [address] [place] [address] Dr. Cuco Gilliam WBC 10.4 103/ul Normal 4.0-11.0 [facility] Comment on above: Performed By: #### C BC #### [facility] [address] [place] [address] Dr. Cuco Gilliam LIPID PROFILEon 10-28-2022 CHOL-HDL RATIO NORM SEE BELOW Normal [facility] Comment on above: Result Comment: 3.3 - 4.4 LOW RISK 4.4 - 7.1 AVERAGE RISK 7.1 - 11.0 MODERATE RISK >11.0 HIGH RISK Performed By: #### B MP, LIPID #### [facility] [address] [place] [address] Dr. Cuoc Gilliam Cholesterol [Mass/Vol] 142 mg/dL Normal <=200 Th [facility] Comment on above: Performed By: #### B MP, LIPID #### [facility] [address] [place] [address] Dr. Cuco Gilliam Cholesterol in HDL [Mass/Vol] 59 mg/dL Normal 40-60 [facility] Comment on above: Performed By: #### B MP, LIPID #### [facility] [address] [place] [address] Dr. Cuco Gilliam Cholesterol in LDL [Mass/Vol] 69.4 mg/dL Normal [facility] Comment on above: Performed By: #### B MP, LIPID #### [facility] [address] [place] [address] Dr. Cuco Gilliam Cholesterol.total/Amirah sterol in HDL [Mass ratio] 2.4 {ratio} Normal [facility] Comment on above: Performed By: #### B MP, LIPID #### [facility] [address] [place] [address] Dr. Cuco Gilliam HDL NORMAL > or = 60 mg/dl - LO W CARDIOVASCULAR RISK <40 mg/dl - HIGH CARDIOVASCULAR RISK Normal [facility] Comment on above: Performed By: #### B MP, LIPID #### [facility] [address] [place] [address] Dr. Cuco Gilliam LDL CALC NORMAL SEE BELOW Normal [facility] Comment on above: Result Comment: <100 mg/dl OPTIMAL 100 - 129 mg/dl NEAR OR ABOVE OPTIMAL 130 - 159 mg/dl BORDERLINE HIGH 160 - 189 mg/dl HIGH >190 mg/dl VERY HIGH Performed By: #### B MP, LIPID #### [facility] [address] [place] [address] Dr. Cuco Gilliam Triglyceride [Mass/Vol] 68 mg/dL Normal <=150 [facility] Comment on above: Performed By: #### B MP, LIPID #### [facility] [address] [place] [address] Dr. Cuco Gilliam VLDL CALC 13.6 mg/dL Normal [facility] Comment on above: Performed By: #### B MP, LIPID #### [facility] [address] [place] [address] Dr. Cuco Gilliam MICROALBUMIN, RAND URon 12-0 mALB 9.0 mg/L Normal <=30.0 [facility] Comment on above: Performed By: #### M ALBR #### [facility] [address] [place] [address] Dr. Cuco Gilliam PROF CHEM 8 (BAS METB)on Anion gap [Moles/Vol] 8.2 mmol/L Normal [facility] Comment on above: Performed By: #### B MP, LIPID #### [facility] [address] [address] [address] Cuco Gilliam Calcium [Mass/Vol] 9.2 mg/dL Normal 8.5-10.1 [facility] Comment on above: Performed By: #### B MP, LIPID #### [facility] [address] [address] [address] Cuco Gilliam Chloride [Moles/Vol] 101 mmol/L Normal 98-107 [facility] Comment on above: Performed By: #### B MP, LIPID #### [facility] [address] [address] [address] Cuco Gilliam CO2 [Moles/Vol] 34.8 mmol/L Critically high 21.0-32.0 [facility] Comment on above: Performed By: #### B MP, LIPID #### [facility] [address] [place] [address] Dr. Cuco Gilliam Creatinine [Mass/Vol] 1.10 mg/dL Normal 0.70-1.30 [facility] Comment on above: Performed By: #### B MP, LIPID #### [facility] [address] [place] [address] Dr. Cuco Gilliam EGFR-AF INDIAN >60 Normal >=60 [facility] Comment on above: Performed By: #### B MP, LIPID #### [facility] [address] [place] [address] Dr. Cuco Gilliam EGFR-NON AF INDIAN >60 Normal >=60 [facility] Comment on above: Performed By: #### B MP, LIPID #### [facility] [address] [address] [address] Cuco Gilliam Glucose [Mass/Vol] 120 mg/dL Critically high 74-106 [facility] Comment on above: Performed By: #### B MP, LIPID #### [facility] [address] [address] [address] Cuco Gilliam Potassium [Moles/Vol] 4.0 mmol/L Normal 3.5-5.1 [facility] Comment on above: Performed By: #### B MP, LIPID #### [facility] [address] [place], [place] [address] Dr. Cuco Gilliam Sodium [Moles/Vol] 140 mmol/L Normal 136-145 [facility] Comment on above: Performed By: #### B MP, LIPID #### [facility] [address] [place], [place] [address] Dr. Cuco Gilliam Urea nitrogen [Mass/Vol] 20.0 mg/dL Critically high 7.0-18.0 [facility] Comment on above: Performed By: #### B MP, LIPID #### [facility] [address] [place], [place] [address] Dr. Cuco Gilliam Urea nitrogen/Creatinine [Mass ratio] 18.2 mg/mg Normal [facility] Comment on above: Performed By: #### B MP, LIPID #### [facility] [address] [place], [place] [address] Dr. Cuco Gilliam XR KUB 1 VIEWon 10-28-2022 XR KUB 1 VIEW EXAMINATION: XR KUB 1 VIEW HISTORY: Kidney stone follow-up COMPARISON: XR KUB 04/21/2021 FINDINGS: KIDNEY/URETER - RIGHT: No visible renal or ureteral calcifications. KIDNEY/URETER - LEFT: No visible renal or ureteral calcifications. PELVIS: No appreciable ureteral stones. 2 small calcifications within lower right pelvis which are stable, favoring phleboliths. BOWEL: No abnormal dilation or deviation. BONES: Marked joint space narrowing of right hip. OTHER: Negative. No abnormal gaseous collections. IMPRESSION: 1. No appreciable urinary tract calculi. 2. Right hip marked degenerative joint disease. Electronically authenticated by: DAVONTE NUNEZ Date: 2022-10-28 11:46 Normal [facility] Coding Summary.on 10-06-2022 Coding Summary. [id number] Gh0bWw +PGhlYWQ+TP3JCVBxR21ufMWoa N5DG1wOQA1PDWYUZHNVMP3URW8 qhSK0AVjzS0FofwOc QkavhZBbHJ85JFn4SMA4oVkmBL sxeU9ziUBuI4u4SmKeSZ38yZ32 FLmfWWJbQvB1LdMqdhrrkAZj O2nyFnCcqRVkIra+PHRhYmxlIH yoPOLqCGiaHVDhWhFcfRziCN5s Zw6uLDJtOZBpvZjfgWCzGoKq u1tdPMRpTNhiDI9xaXwlB0JihU X8WATsb5a0Ke96oAS+PHRkIHN0 xUppFPqxu722HjJyo2oqSOL5 qQOpTGggDAF7S16du1K0MYEnVX KqEGO7oYZ5mU6qbBnpirsoU2Vc lNJcTmP9REQ0gAGelB9tbBdy gobwqO9mKpr+I32DOK9EROSXMX 9ODsr5F1NpShxvmWD+TN07IXVc TT02uHDyiNFlh6gxmIr2PwGb VYYvPPK9hBsuDAjyu5DgKZWgF8 7hoIKjn8K2LAQmiSvwfRGkZnHe oYB3fC4jSDatboilt2wptcln Llmmb6tszc56iN31O77fBXzbHR JeIDZ7JEAyLYBvqRnosy6taH9p Ii8+CDrvx1ksj1ysqNo0HxSq XLKankUuvMfvAGF8h8ZmLd48H7 LuwNqle1FlVie0jb96wTRaj9U5 nGQ8VGguLISbqD1sMClaMiW6 XJWbQsQrzY85rBMuQXxcUp6lpF kdyNleAZ7pVRHxnfqnSDZnwR6w GTMguHBtgEocOU2vOUDcpits t053ZqBcYNH4EJJwsURgP4LatH 3yMlSvANAiPWZrJ6GiiYNyDLpg S569AZqdWwD0NFNbqcPbE1Dg CRVuiPaxBbO3g0M0Og8Gh1Ubts ucOGC0OFeeCSEnXcP3SsYcNnN8 K8EmTuq8JYOiiAyuAE9zL4Vu VXYoxffdseprqBP6PELtVPAsoE 27kGTkECoqMv9es5R2u895HXKa BWHnxL41Di3ipZexSJZpsSGS eJ8svdxgc7xdtnqjLtOiWQRhHZ f8MWi8DDIzfMykAwQzSHP1LxO3 CCD1yOCbiJ1ttTzamrgopV5u Oyc+M69toP7hMWS4IQJ1ardbIC BpnrEgYG29XL45G5MyHrpjcYHq bGU+IJAbrbChyMzvQD8vBiNk k0mle9NiIMziZ1GrZZKqAAzkPi s4LKOfQBA7gMX0gW9eQXHgENqj e0G9rRA8S4EguePkya7dc3dq YZGiMMkoC17tyLTkg2R7SGPlaM G7NAKbgNbgZpBgoV02Nfx+PGNv zGidr5TcXzsjh1jff5hnwAp4 ChOhMKVdgzRrmQwbJMC8f3NcWx 46R60jIGcdTMAsLSPpTNIrPFYx aMqayv8qxE4dUi6+PGNvbCB3 bSN3zZ7nXLQkJuL4ACgjC339Xg IehIPaNflqz2ukl6uvyGw9HpXv CQGcyvTfoXvyAHJ3t2YrIu67 I37qSBgsZJQiNJReWZBsXKDnzX uejs8xjZ0dOa4+ZS6ip0jdrx58 vR66mXP+PCPuBHI7rRueVWyj JCBchF3nAEieCbQ4DWYnXcPkuK 08mOBdUVevFt5pvTczgZdlEA4r XHMnyayio174AoMgy2urEYOl xIEnIFjdPZP8J06fd3L5QSUvWM PsHXT8lJZ9hX8biEzdumkyjUHr yCrtquEwlYwkVKloEAatI909 IHRvcDsnPlBhdGllbnQgTmFtZT s6B5RsMgg5XJYfoWwcYL3muBVj YFbsDb8mcLxhkMrwNO1tHBPk dqgcf343ZyUhc4dvXDTfrYWgVC bbRNI4Y69rc1H7MXGaTLKkSBG0 lCU5iG5ukZmnirmpkHUltDji asJuoAtiTQsaDVxfS004SEQsaL zxHqFhmcFiZIMqwWR0IO40BH98 pQFbo0G3gRW1F1FtSACwptbi sqrleSF0HLUwTLLdoE49Ys7vlE gqZo0aVJQmDLF8DIDmeYKsW9Bi tF2lIiMvDDVrMNVbZ4RulAJg OTwoC966SGrhSjB3LEUbswVgU9 AvNXQaeTejZtZ0k6H6Ws7GY2U6 XS04VK64mYDwt1A4rNT7N2Yr JVYsgrqtwwqghOR4EMTaRLNhlN 42Hk5eaEcnGl4qUBYaUIS5GRHi xDZfR6JltD0kBkHgGJJeKXBi A0NnyXDhQMtzV702QVopMmK5TC MefuLjS3XwPECrhAywFhR5g6O0 Cc8XWRu4CZ78UN94jRZht3V2 mUW9H5McNHYkandwwllkvXF0RL RsPWSafE23Oz4crNdbJf5qGHGh EAW9MTIxdTHxT1IlmD4yZbGl ZNYpTAEzN7NmiGOzRCacI990CA uzLvL4KYKbsaUoN8YeRSGsjBuh IeK0x4P1Px1KKMZiVG66PTC0 eCK0RJ85RJ77W9RvQsjvjAWucD U+PHRhYmxlIHdpZHRoPScxMDAl XiJijZmpQC6qCw7cOMJgYTNu qBqvtLMdNjKlc1wgGXQiVVkzFV 9enSmyV2JneHU9XDZza0t4Ir35 W79yC2AunXE+DMMqyXP5hWJ3 mP3sNfOnXyB1NIcgK743OdCxeJ KxCroxb3prf0skkUv7WtY0SOKh ncXblVlqRMP5d8CbAp37U59m IHdpZHRoPSIxNSUiIHZhbGlnbj 2rqT6nPa2+ULOkfNB8fLX6iE7s CsZlZlQ8XUjwG681GmRzxWGx Knzgl7wqq5caaYe5LrLvIJEqdb SqxZezLHH0w2PdFj23D1XctOnx t9TfRic4xx51mITcd3X6eLQ2 H4HzRCDwroidwHXpxJmdYA8kZI RxlkyrXCBlwF3bKPHsV5z7ObRb EuX4IStjF0AhfwI9ORWnaKCu ZYygRPT3X49et4U4JUNnXLUeGQ Q7zRT7pZ1saUlpnlvmrXSfzUdv fcEpkLmmXVnrQQlvL454PXLe qGhmJAAdaX7rZWQuqTBmhDoqFW 7dHIOywrgoUo8JD90OYMDQBLHW LnGAIQ80CU04cHJpe8V7yER9 M8ThBQZzqztontezeQC5NDTiKY QhwI10mRYcOBwtWh9sf2X3c219 GLKyFRNjcR87Uy4xhApyVPPm gERGaO9towqjv7awenrtNrEwXO TwCYz6QLw5SSEijHodHzLnVXM5 FlW0XGL0eKUzhR8luJwyiaio lX5jQah+EMFbRPOuEUe6SJgjbQ Q+KFVlERT3gVxqYOblPQSfdL5o GAFdB2h1WbVzGaV0ZIxwW7Mv VEJpjwcpVk06fX4hYcIiKwM6LF nxW0BtdwC7DMWywWAgBLqrXYO9 A77az5Q7DBYgIDRoGMO5qOJ3 tL4ghTubphhdmVUgyHhmljVydZ noKTtgATzpM649SYWhvUbpLms7 GOdjILXuTA78NQ95aQBpy7U0 kVR6Y9WbQSYvuaapfyrdrOU8BQ YkLNLhtP68gKNeAHelTo1sz4R0 r583SNCcSQNmsP52Wc8dvWqy XGRvxCAGpZ8nqpgyd9tuledjUr NxPPYjIDk1GYb3FGUgjDnqZsAt MPE1AaD9DLI1qJZnvX2puMcj ctxazE6lTrv+TWFsZTwvdGQ+PH ExLIN6zAggVXpjAKDdlO9sASFb N0g9ZuYrDkB1ZYeiJ0BpZZZw ltowDr43mD7hQeXwGtC8ESwpY7 UijcA9HWDiqYVlYMckHGC8E89o m4Y9RKUxEAAnSNO2xMG4pY1y bGlnbjogbGVmdDsgdmVydGljYW utMLggI164CTHcdKdcOy29xYJf mTzlwpC7M0QhDwqndSJ+PC90 GMVnPZ05aVMjnGEpm1dxyWy9Fc XfMUFvGLD0vFcfWAqui5PeVRWe T13ymJNfi8L6BENfaBjbyGGq IhYckSP2sY7oNCpytwlsa0awna ywGcryt2xfhq69yK04V52jCIod TGWpPWIeFGYvTGIhgJvzkn6d hM7fIx6+LMMhcDM3rUQ7aD4gHj ZjMhR6XWwaI097WgIpmNWrPide u7rev7hhvKt7BxIeTYSioqVi dOwlSHY2p4SjCd12S31mIKvyXF NaLUKuTIHpMEWgfWcjva8uyF4g Ii8+PV1wb0wjhf15zC75lSY+ RUZoXLZ5aCpsCQurARJkrZ4pET klJyI5DNDtNkWglH79kJCiCGrt Xt7lkZwsqJzcEZ8jYFQcgfen r118RsDga1ldJSDecHMeVXuqNY G0B94ou7Q0IUYpWHFoOPZ7fNZ2 aS6hnMuzmxxqjWJqlLvgxcWl eTseXZanVZwuM749BNJwpGriWt YciSLwY8ivhuSFQM8sKpcelFW+ MDCuPLZ8kStkRChmTACzcT2c UEXjG3u3PkRmYjQ0WVzpH9Ykyp S1JATwyBNtNRGejWNYnU4sifvc w3pzidjfPaMnYCPqQZk1LWs6 ONKqvDpjUpHtHDY3ScP5LBD1cI OmlI5gkOhvjzpqcJ8cBxi+RklO OjwvdGQ+MXNwNPB9tXjgLVbu YUKxtJ3fSVJhN2e7XrHdZsR6KT wlE6BoruZ6WAQxnXXvJQSdvYMA bL1vedchg5owvetiUpUtXTDo DIz9WRd0QELxjOeyHkKwRTP1Rr Q9ZBS3hTTpiD0uiXikqzuemD2d Oyc+TVJOOjwvdGQ+PHRkIHN0 wUqaHFpmWXCsfX8hWRMoA2i5Jt BhYfP4ZJqrA3JykjB8IIBjsXEw RLGksZVAvX0cxvdbq2fyoapb VqChCVXiBFd2TYw5OOXzlLreVx XpFPN9VtH8ODE1lGEwkS4xrXgz lewhkL6eRef+MOG6FGH5DO73 WV91I2VxRdvfzTCniLB+PHRhYm xlIHdpZHRoPScxMDAlJyBzdHls VR6lEm7zUCOkUIKwxNznyKJy OiBj (more content not included)... Normal [facility] Cardiovascular Reporton 11- Cardiovascular Report Please click on li nk to see report pdfCD:[id number] iWio4+HBZs9ZCGda2UyZEe2BB8 AeTAeTY5XiFDKG0OkpIDsB5GdO ONgRq4VRx1O ZL6ij1CzSXc6XNOnn5PzAFq8XO 5TtGTCB6XnvVPjPKhlIYXuBcFd VIAmHi5HJsJrKc3rwMZ3CY1Z TlQwIDMgMCBSID4+YAjbA9Awd6 CKJBRdBm7OUMTxM6UlwGYyC7ue CXgtVaHgVJ8mJ3OVKQ3GmJFe ZUldID4+XHwBCoRuJI5gxq0JGk HfPV4gao7ZZLtdSValTLGoGY1z thMbhDGjT0PnfLaeEVHnOt1i vONaQmYywFJfIFOiIYF9Tt79IT O6XT4hI1Vyk322pxQjhtJ5PBAt HhXbGraxsJBkWD9MaQJ2VYYy A67bBOErGIIgP4VrYGUqUhE+Pg 1Cu8EuNNCoPBpPei7CmQ/TMBDH q0e6sQu+S9MPFMLSyXNQkVTN G5c98v9LKvUGV46+tv9lKLkhXM OvFdA05fBA3/93ceprAEHTIZ+b LfykIR/1I1IbKzXJJz7dZk5Y KPxkzNw1G5iQJ/X3JX1gAOiODz qninFXDKzY/q929r8keLdx7Tiz wt0ayxZXOw03Dlmmn7uVMzxm VJN00XqytfNvA7ebi+fOJDfov3 Bhavin/QokvkW7oM4X4gsOSN9RGzc a6HZugG3EXpPxSRX/cJJkixr gdLbwndLF5OOWRp3YesVCmiteY FSZz2HaYH1EazGEYQOEq2B82eY NKSOw05jSV/QqpuHSEahmH08 weDxQ1VMMWNx5I4u+nXG9bDzEs LdUvH398UcWv6XcNvDKdXhqmSw teqszOsvtJXu4F0pazSuFwTX 8U85R41NLwy+GpRTkmDaLiXBVo 8luC2C+Rreoumw0tcy1Oq7kM7l 7z/FFpEV27IxBgDKsKmEVXTb W5sMo7JR+/zT8pQ1E9CRc73hav IlN+IK8GAYtjB9AxzQtF6nLK0o qp63QdAlkitM/ALrHZoH3hm6 4S/9mrIZwT0dAngUxCEbd+ZH9R anyuav02wJCOrJotxEXdBWtuHZ JUW2XDm95hDIAoNr/SPPITWk Xe34dFJ/bUxQdQiqKQKvEoUcEq muIyiLKSp8DJY9yYdf/xScB3Si T5Z1DO7K3T1urbZkwvgq1/4x HaGPlsSti5nqCQQIp3+o6ASNB8 xG9UKr96MTtAPpMwbhK888Vrie 3gt3VV9peE9jDg0Sab25ShKF APxDp35igg2O+rwI3CtIURdizw YcqNIqNY1FRrXgSG0qaa6LCAXc YFKoOysLMdu7H0O0eKyLnYM5 IYV8AY3HGZJ3DBCdPwL+Pg0KIC 5Bb633QJu3M3WSHEOiIbTdVOBw Xq7PFvLaBWQfC8QnwHVaV3RY ZkNwWJW9tOTnRM5wX8YJIG9GiB XxRGFhY5snERafHH9kDl6DOw9G BF6dg8HhLMn7EYIwh3CeXVe0 UU4RiIFcXP9UZ5TtIQD5YC5UsU O4dXLcVU4Ia5KoPF9ROh28MVcm DYHuCGPpZil6YCN9HLMcLtMn q3EqK1MtTRXrKPViRkLdXvnjnG HyMQ0AxJF3JHWgN44uJFMjQWMj B8PjMFJeHSJ+Bl4Ty2AaLWXd OSsMmr7M342rLQnFT9BnVKSZOf cHZVexyzGHTypigD6IqIpEGIwQ ay/6+wXX8nYcKvTTK3WGqrRP 6bH2g3rZKUllGwLzhDE/ZPLxcA zaYwDtYxYVirnCLKB7MM28QCMA XFCkrbgDg/KwAeNRFee+OKbi 8PsS1/fD0K69pK/dVqjCkwN8rI nLsDVThSAjPHSTTZal1iATzgkc l9hmk4JiBh6qf5/ac8ZbhySG 9tTh59A+PgJhO0o9JcDI38W9dz X2yZhYtfkbDUfzYfKhOsbOMdJQ jGReDN4KXH5QF5rxGu9oVVkZ ms4Es7lymwl+vdploxGV5ZsVn2 hbduIeUVQ+aLMPnV/DioGV2jGI 5gTWGo3xYWeErJCcCHgJji5y v42fn87XA2JCP3fMi9WZDte9Xh /9lg45rgwyxqFeDz0AO/WVTCrV V0GfXikYylhKCVhDRmrvgwan OKmGyeY75cm7Jsu2jJd6QuzMNI /AilRYDOBpLmwIUF/RknintXHv L6E+ct48qY01bAttS75bA4OG o7iyN+7ugpTvbUpJCaqmm9kHox XDEp+NEzPLPl6+C//BGwqssbtY AJRaZ9YIUw5ut+XlmSdkfAlj iyTyTXecu8UBi5OVCThVLgO2EI managed care liaison/4pep252XuY5Y0DE6xyKXXh6 x7Y1c0AR8VlsuQD5hdA+aGEF XJAU0A6cQ8v/1lesEy9fTGlov0 7XDYVutlqzy6YORVkLYJ0D00HY L67F2i25kDnNOsEPnn2kV1nv mb1Tl8Lxbuksjr0mstZgjc6er/ Zun42k0A8o8I8WWCLfLTdkqgHo zGXhLB3LWzOhGT2sbj1YLHSs KOVsFydVJdu8O8M2oGdXrVY9QH T6GA3FDNO3PVHkAaS+Wv1PCE9B f864LNs8U9PVCMFjHoMjKFYa Zv2NRfXhNBOpJ3AmnFSwI2OYSm PfXMH7tUEbIW5bS4AUUF0FxZQa KFJeW3qbGMjsMQ6eIc9MWd2X XX2ln1XrCLlbEHVnIV7frm3LMT lmIHwwFHVhFR0vadGkzKEkL4Et dIzkQJFyPi5erGPrZqWpbYVj IZQlBFY8Sx57XRW8MB0fAM4tX5 Fhc078prMjxkIxOvKxRZYkW0Lv bHRlciAvRmxhdGVEZWNvZGUg B2syzhi9nFC1OzXgLw7HJzY3gh WyiT3MFKNOG88i3uWO/iv3B+r5 /RgBAPbIoRLUtDWQC8B40enm xJAYH/m81MkoKR8HL3yaUTVI31 rL4+k55YgOMWg20Hy5lQ0u4wP4 E4sgHJn60Q2E6AWTzO+Uh8cv cAuXFGgi/+6Rrw+H5xmdtts8q5 YZ3OGbWibhCo9ef+rs9RO5jB46 g22m9slmZgKDJXHZPzogZDKR 69DKk//Fy7tyGU24U8fLk0lmJw EFfDa2euSR7F4fWGFd9IHDdeQF CbYXQ+pqvAMl1LZNkNFGEgfG e809ESkjaThD8PXV8vEufnC3z7 FarFHGb+AGl3rTAjoDjumeXDaK JmZ2In81iRukZTMsmgFWGP7j RdpgrhEcRix549QnSSLtScI+Ve +U4o1sKkrrIcGQ/m2prCQEOKon Zd2yhnX597JjcZSCDRbBh1gY 3avQntnCFXK26aVc+wzwPTlBDi LExtKiruIFUCs4xm8gmJX7yDFJ Ds6OUhnIQKN6lBf+Qmu0L6+h uNBNVEO57GTPMB2SRSnQdbZQcv DoT0mtVshXbawWjuGFW0epPf7N 1ie2QzZlqZgo/y+5UngQDt1W s9pBTttY1tlqfAdla3589sAbhS BNLZtBYFHFfvyMyw2MzvjH5o0O 0XDmympKvwMjz0eyMvIh1HwC vDmRKpqO8Tobg0V9M/akNW4lhP /aBS5UoVpScNk8LCJLM9XwyNFt Z4lI/SnYZ8Q56/2jTcxVPxQ4 Gk2brnYT5OL/H7/4n+CZ+nilx3 geXOn/a+LPtfkbHefCBVSb5dMS FyDJ5pvPbJKBizHB8j8SB6k5 5QrsfpjosdH1xGIWduQktoiK0B thfC5OWGNlJj2NSU0nn4CvNZZk MWlsmjJhQnhXSfM9NOMws4Hn IGj6LP3LsSTVP1DnqOHuSUpmCB XuRcMaLIJkQl8TWsGhDp3qxOY4 KD4IGcQcJWIrTZKHYR8+DQog D2Yvw1OLFPQqDr1SMHNsW4DllM DjI6izFWbpMdRrFB6hH2PABU8R bWFnZUldID4+VRbDHwHpFL2a al9FMBGaTNYcLdvIJdj7B3A8tO HyR2eXNxdmT2EyK7Z3KdP2vHGi Y6Elue1dD2CCc4nmGgIiARUu KxRhYsXbFAiaXpFdHF0MAZBimZ HqGLNvSMStVIQJCR6TmCy1ZLLm X1CfMIZjTSYpk6MfCC7NCT3c mCbyJnG7MV4+RWungBOpIX3RNh uK5JhQj3ScBI9c/cYK8jBDGien SNKLy4QODlEH2iXeybTNUnsz 62Gtensgku8A4N4lOf00Zu81pw +m4HBG4OANxxb8jpJdw5jt/sHC 3S+8ICgLVW4N8zE3/Dh6vLZT XSO/O4DnP9TrW0tusefURY07Ma uYe/oDH8sQMmEFRhR6tweL1zpy kwx9gnSDDMyg7tTbWKGmIjlP /gf8FeMc//tToorNAD2yyF30SI J0AnscPTvqNXd1OYdGr6ZT/SCG gMSOMJmnqWW7dyeA3O1Objlf OmBEHh0gpayNo9Sd0Vf83Ju5Vi 5i6fs9aoTZL7sLOwrqRDhWiFbH nnxwfo/62e2DJKpQvQQc8nd1 aVf39pDrBQH9JEUKv1fu6K984I RmNsgsxcpl6rXeYY0asmz4uk+5 z48x7/piv1FWHPEz7SJyyWIi gqU1eZK8nLhe7WWrql+OGkHDoG o1gMLwGc1tx2suWNzvg1OtNvIh EusiKKSRi5Du0VK07G9fV8fN rzsmerVDVnjsoZrwmFTjLFXNw3 uKsugbgIgPVCcRbtiYoqn1RktA 41mUkO1aUvw/4BqFKLolnmSI zssyQX7wfclE1ZhcWi5ry2GKxi dMkqHMxA5gW/ZIMoEoyMaCCHQm kpG0MIOtg2ZBP4cV54swit9U +s0++oTshmlDh5WtfLY+aw7hTu 7k/wIgdeU4UVxQJq6ivHecwEQT EDK/j19fRNpnG4jhSF2bcSbu 3wOe+AnwVB0jj6vVali0SqMsYx m93TuMeAFDDxDQ6V/ziT6VAQ9N (more content not included)... Normal [facility] Consent for Treatmenton 09-21 Consent for Treatment [id number] Normal [facility] GLYCOHEMOGLOBIN A1Con 2021 ADA RECOMMENDATION SEE BELOW Normal [facility] Comment on above: Result Comment: ADA RECOMMENDED LIMIT 4.0 - 6.0 ADA THERAPEUTIC TARGET < 7.0 ACTION SUGGESTED > 7.0 Performed By: #### A 1C #### [facility] [address] [address] [address] Cuco Gilliam Glucose [Mass/Vol] 146 mg/dL Normal [facility] Comment on above: Performed By: #### A 1C #### [facility] [address] [address] [address] Cuco Gilliam HbA1c (Bld) [Mass fraction] 6.7 % Critically high 4.5-6.2 [facility] Comment on above: Performed By: #### A 1C #### [facility] [address] [address] [address] Cuco Gilliam Activated partial thrombopla stin time (aPTT) in platelet poor plasma by coagulation aOrdered By: Domenico Nicholson on 08-24-2022 aPTT Coag (PPP) [Time] 35.5 s 25.1-36.5 [facility] Amphetamine Screen Ql (U)Ord ered By: Domenico Nicholson on 08-24-2022 Amphetamines Ql (U) Negative Negative [facility] Amylaseon 08-24-2022 Amylase [Catalytic activity/Vol] 30 U/L Normal 28-100 [facility] Comment on above: Performed By: #### H S TROP #### [facility] [address] [place] [address] [place] Aspartate Amino Transferaseo n 08-24-2022 AST [Catalytic activity/Vol] 16 U/L Normal 10-42 [facility] Comment on above: Performed By: #### H S TROP #### [facility] [address] [place] [address] [place] Barbiturates [Presence] in U rineOrdered By: Domenico Nicholson on 08-24-2022 Barbiturates Ql (U) Negative Negative [facility] Basic Metabolic Panelon Anion gap [Moles/Vol] 11.9 mmol/L Normal 6.0-15.0 [facility] Comment on above: Performed By: #### H S TROP #### [facility] [address] Calcium [Mass/Vol] 8.8 mg/dL Normal 8.2-10.2 [facility] Comment on above: Performed By: #### H S TROP #### [facility] [address] [place] [address] [place] Chloride [Moles/Vol] 99 mmol/L Normal 95-114 [facility] Comment on above: Performed By: #### H S TROP #### [facility] [address] [place] [address] [place] CO2 [Moles/Vol] 27.9 mmol/L Normal 22.0-30.[address] [facility] Comment on above: Performed By: #### H S TROP #### [facility] [address] [place] [address] [place] Creatinine [Mass/Vol] 1.13 mg/dL Normal 0.64-1.27 [facility] Comment on above: Performed By: #### H S TROP #### [facility] [address] [place] [address] [place] Creatinine Clr Calc Pharmacy 77.86 Normal [facility] Comment on above: Performed By: #### H S TROP #### [place] [address] [place] Estimated GFR ( Tracey > 60 Normal [facility] Comment on above: Result Comment: GFR estimated reference range: According to KDOQI guidelines, <60 ml/min/1.73m2 is sufficient to diagnose a patient with chronic kidney disease. Performed By: #### H S TROP #### [address] Estimated GFR (Non- Am > 60 [facility] Comment on above: Performed By: #### H S TROP #### [address] Glucose [Mass/Vol] 149 mg/dL High 70-100 [facility] Comment on above: Result Comment: [place] Glucose Reference Range is dependent on time and content of last meal. Glucose of more than 200 mg/dL in a nonstressed, ambulatory subject supports the diagnosis of Diabetes Mellitus. ADA recommended reference range Performed By: #### H S TROP #### [address] Potassium [Moles/Vol] 3.8 mmol/L Normal 3.5-5.1 [facility] Comment on above: Performed By: #### H S TROP #### [address] Sodium [Moles/Vol] 135 mmol/L Low 136-146 [facility] Comment on above: Performed By: #### H S TROP #### [address] Urea nitrogen [Mass/Vol] 13 mg/dL Normal 9-23 [facility] [place] [facility] Comment on above: Performed By: #### H S TROP #### [place] [address] [place] Basophils Auto (Bld) [#/Vol] Ordered By: Domenico Nicholson on 08-24-2022 Basophils (Bld) [#/Vol] 0.1 10*3/uL 0.0-0.2 [facility] [place] [facility] Basophils/100 WBC Auto (Bld) Ordered By: Domenico Nicholson on 08-24-2022 Basophils/100 WBC (Bld) 0.9 % . [facility] Benzodiazepines [Presence] i n UrineOrdered By: Domenico Nicholson on 08-24-2022 Benzodiazepines Ql (U) Negative Negative [facility] Blood hemoglobin measurement (mass/volume)Ordered By: Domenico Nicholson on 08-24-2022 Hemoglobin (Bld) [Mass/Vol] 13.1 g/dL 13.0-17.0 [facility] Blood leukocytes automated c ount (number/volume)Ordered By: Domenico Nicholson on 08-24-2022 WBC (Bld) [#/Vol] 6.1 10*3/uL 4.5-11.0 [facility] COVID-19 Antigenon 2 COVID-19 Antigen Healthcare Worker?: N Reference Range: Negative Negative results, from patients with symptom onset beyond five days, should be treated as presumptive and confirmation with a molecular assay, if necessary, for patient management, may be performed. Negative results do not rule out COVID-19 and should not be used as the sole basis for treatment or patient management decisions, including infection control decisions. Negative results should be considered in the context of a patient's recent exposures, history and the presence of clinical signs and symptoms consistent with COVID-19. The Dodie SARS Antigen BERNARD does not differentiate between SARS-CoV and SARS-CoV-2. This test was developed and its performance characteristic determined by [employer] and validated at [facility]. This test has not been FDA cleared or approved. This test has been authorized by FDA under an Emergency Use Authorization (EUA). This test has been validated in accordance with the FDA's Guidance Document (Policy for Diagnostics Testing in Laboratories Certified to Perform High Complexity Testing under CLIA prior to Emergency Use Authorization for Coronavirus Disease-2019 during the Public Health Emergency) issued on February 21, 2020. This test is only authorized for the duration of time the declaration that circumstances exist justifying the authorization of the emergency use of in vitro diagnostic tests for detection of SARS-CoV-2 virus and/or diagnosis of COVID-19 infection under section 564(b)(1) of the Act, 21 U.S.C. 360bbb-3(b)(1), unless the authorization is terminated or revoked sooner. SARS-CoV+SARS-CoV-2 (COVID-19) Ag [Presence] in Respiratory specimen by Rapid immunoassay Negative for SARS Antigen by BERNARD PERFORMED BY: [place] [id number] PATHOLOGIST UNDERTAKER HELPER CORAL GOLD M.D. [facility] Comment on above: Performed By: #### P TT, PT, ETOH, CBC, CMP #### [place] [id number] [facility] COVID-19 [facility] 08-24-2022 SARS-CoV-2 (COVID-19) RNA NA+probe Ql (Unsp spec) Positive Critically abnormal Negative [facility] Comment on above: Order Comment: Healt hcare Worker?: N Result Comment: Positive results will only be called to Providers for the following groups of patients: Pre-Surgical Testing, Emergency Room, and Inpatients. Results called at 0957 on 08/24/22 Testing for SARS-CoV-2 by RT-PCR This test was developed and its performance characteristics determined by [employer] and validated at the [facility]. This test has not been FDA cleared or approved. This test has been authorized by FDA under an Emergency Use Authorization (EUA). This test has been validated in accordance with the FDA's Guidance Document (Policy for Diagnostics Testing in Laboratories Certified to Perform High Complexity Testing under CLIA prior to Emergency Use Authorization for Coronavirus Disease-2019 during the Public Health Emergency) issued on February 21, 2020. This test is only authorized for the duration of time the declaration that circumstances exist justifying the authorization of the emergency use of in vitro diagnostic tests for detection of SARS-CoV-2 virus and/or diagnosis of COVID-19 infection under section 564(b)(1) of the Act, 21 U.S.C. 360bbb-3(b)(1), unless the authorization is terminated or revoked sooner. PERFORMED BY: [address] [id number] PATHOLOGIST UNDERTAKER HELPER CORAL GOLD M.D. Performed By: #### P TT, PT, ETOH, CBC, CMP #### [facility] [address] [place] [id number] [place] COVID-19 SOFIAOrdered By: Isela Nicholson on 08-24-2022 SARS-CoV+SARS-CoV-2 (COVID-19) Ag IA.rapid Ql (Resp) Negative Negative [facility] Comment on above: This is a duplicate Dodie SARS Antigen (BERNARD) result to be used for statistical tracking purpose only. CT cervical spine wo conon 1 CT cervical spine wo con [facility] Main [place] [address] [place] [id number] Scan Report Signed Patient: Nirmal Chaidez MR#: [id number] 9 : 1945 Acct:[id number] Age/Sex: 76 / M ADM Date: 08/24/22 Loc: ER Room: Type: [facility] ER Attending Dr: Copies to: Domenico Nicholson DO Ordering Provider: Domenico Nicholson DO Date of Service: 08/24/22 CT/CT cervical spine wo con: r/o fx s/p fall ([id number]) CT/CT head/brain wo con: r/o ich s/p fall CLINICAL DATA: Patient fell and hit head on toilet. Laceration of the left forehead and confusion. CT BRAIN WITHOUT CONTRAST: COMPARISON: 03/07/2022 TECHNIQUE: Contiguous axial unenhanced images were obtained through the brain. This CT exam was performed using one or more following dose reduction techniques: Automated exposure control, adjustment of the mA and/or kV according to patient size, or use of iterative reconstruction technique. FINDINGS: There is generalized atrophy. The ventricles are stable in size and position. There is redemonstration of normal variant with cavum of septum pellucidum/vergae. Moderate microvascular changes are noted. There are no additional areas of abnormal attenuation. There is no hemorrhage, mass effect or extra-axial collections. The calvarium is intact. There is a deep laceration at the left forehead where there is also soft tissue swelling. There is minor ethmoid and sphenoid mucosal thickening. There is carotid siphon and vertebral artery plaque. CT/CT head/brain wo con IMPRESSION: ATROPHY AND SMALL VESSEL ISCHEMIC CHANGES. NO ACUTE INTRACRANIAL TRAUMA. CT CERVICAL SPINE WITHOUT CONTRAST WITH 3D RECONSTRUCTIONS: COMPARISON: 01/11/2022 TECHNIQUE: Spiral axial unenhanced images were obtained through the cervical spine. Sagittal, coronal and 3D volume-rendered reconstructions were also reviewed. This CT exam was performed using one or more following dose reduction techniques: Automated exposure control, adjustment of the mA and/or kV according to patient size, or use of iterative reconstruction technique. FINDINGS: Motion artifact is present. There is reversal of the normal cervical curvature. Alignment is maintained in the sagittal plane. There is mild chronic wedge deformity at the C4 and C5. No acute fractures are identified. Multilevel disc space narrowing, mild endplate spurring and facet disease are again seen. The atlantoaxial relationship is maintained. No prevertebral soft tissue swelling is seen. There are tortuous carotid arteries with atherosclerotic plaque. The thyroid lobes are mildly heterogeneous. There are no contributory findings at the upper imaged lungs. IMPRESSION: CONTINUED LOSS OF THE NORMAL CERVICAL CURVATURE. DEGENERATIVE CHANGES. NO ACUTE BONY INJURY. Impression dictated by: Ping Vora M.D.08/24/2022 9:09 AM Dictation Location: [place] [address] Transcribed By: [facility] 08/24/22908 Dictated By: Ping Vora MD 08/24/22 0844 Signed By: 08/24/22908 Normal [facility] Cannabinoids [Presence] in U rine by Screen methodOrdered By: Domenico Nicholson on 08-24-2022 Cannabinoids Screen Ql (U) Negative Negative [facility] Comment on above: These are unconfirme d results and should not be used for legal purposes. Drug Cut-Off Concentration: AMPH 1000 ng/mL SHON 200 ng/mL SRAVANTHI 200 ng/mL COCM 300 ng/mL OP 300 ng/mL PCP 25 ng/mL THC 20 ng/mL Complete Blood Count Auto Di ffon 08-24-2022 Basophils (Bld) [#/Vol] 0.1 10*3/uL Normal 0.0-0.2 [facility] Comment on above: Result Comment: PERF ORMED BY: [facility] [address] [place] [address] PATHOLOGIST UNDERTAKER HELPER CORAL GOLD M.D. Performed By: #### C K, CBC, LIPASE, AST, ETOH, BMP, ARPITA #### [address] Basophils/100 WBC (Bld) 0.9 % Normal . [facility] Comment on above: Performed By: #### C K, CBC, LIPASE, AST, ETOH, BMP, ARPITA #### [address] Eosinophils (Bld) [#/Vol] 0.1 10*3/uL Normal 0.0-0.45 [facility] Comment on above: Performed By: #### C K, CBC, LIPASE, AST, ETOH, BMP, ARPITA #### [address] Eosinophils/100 WBC (Bld) 1.4 % Normal . [facility] Comment on above: Performed By: #### C K, CBC, LIPASE, AST, ETOH, BMP, ARPITA #### [address] Erythrocyte distribution width (RBC) [Ratio] 15.9 % High 12.0-14.8 [facility] Comment on above: Performed By: #### C K, CBC, LIPASE, AST, ETOH, BMP, ARPITA #### [address] Hematocrit (Bld) [Volume fraction] 40.8 % Normal 38.8-50.0 [facility] Comment on above: Performed By: #### C K, CBC, LIPASE, AST, ETOH, BMP, ARPITA #### [address] Hemoglobin (Bld) [Mass/Vol] 13.1 g/dL Normal 13.0-17.0 [facility] Comment on above: Performed By: #### C K, CBC, LIPASE, AST, ETOH, BMP, ARPITA #### [address] Lymphocytes (Bld) [#/Vol] 0.9 10*3/uL Low 1.00-4.8 [facility] Comment on above: Performed By: #### C K, CBC, LIPASE, AST, ETOH, BMP, ARPITA #### [address] Lymphocytes/100 WBC (Bld) 14.1 % Normal . [facility] Comment on above: Performed By: #### C K, CBC, LIPASE, AST, ETOH, BMP, ARPITA #### [address] MCH (RBC) [Entitic mass] 28.7 pg Normal 27.5-35.2 [facility] Comment on above: Performed By: #### C K, CBC, LIPASE, AST, ETOH, BMP, ARPITA #### [address] MCV (RBC) [Entitic vol] 89.3 fL Normal 83.5-101 [facility] Comment on above: Performed By: #### C K, CBC, LIPASE, AST, ETOH, BMP, ARPITA #### [address] Mean Corpuscular HGB Conc 32.1 g/dL Low 32.5-35.6 [facility] Comment on above: Performed By: #### C K, CBC, LIPASE, AST, ETOH, BMP, ARPITA #### [address] Monocytes (Bld) [#/Vol] 0.5 10*3/uL Normal 0.0-0.8 [facility] Comment on above: Performed By: #### C K, CBC, LIPASE, AST, ETOH, BMP, ARPITA #### [address] Monocytes/100 WBC (Bld) 8.2 % Normal . [facility] Comment on above: Performed By: #### C K, CBC, LIPASE, AST, ETOH, BMP, ARPITA #### [address] Neutrophils (Bld) [#/Vol] 4.6 10*3/uL Normal 1.8-7.7 [facility] Comment on above: Performed By: #### C K, CBC, LIPASE, AST, ETOH, BMP, ARPITA #### [address] Neutrophils/100 WBC (Bld) 75.4 % Normal . [facility] Comment on above: Performed By: #### C K, CBC, LIPASE, AST, ETOH, BMP, ARPITA #### [address] Nucleated RBC/100 WBC (Bld) [Ratio] 0.0 % Normal 0-0.5 [facility] Comment on above: Performed By: #### C K, CBC, LIPASE, AST, ETOH, BMP, ARPITA #### [address] Platelet mean volume (Bld) [Entitic vol] 8.2 fL Normal 6.6-10.1 [facility] Comment on above: Performed By: #### C K, CBC, LIPASE, AST, ETOH, BMP, ARPITA #### [address] Platelets (Bld) [#/Vol] 170 10*3/uL Normal 150-450 [facility] Comment on above: Performed By: #### C K, CBC, LIPASE, AST, ETOH, BMP, ARPITA #### [address] RBC (Bld) [#/Vol] 4.57 10*6/uL Normal 3.90-5.60 [facility] Comment on above: Performed By: #### C K, CBC, LIPASE, AST, ETOH, BMP, ARPITA #### [address] WBC (Bld) [#/Vol] 6.1 10*3/uL Normal 4.5-11.0 [facility] Comment on above: Performed By: #### C K, CBC, LIPASE, AST, ETOH, BMP, ARPITA #### [address] Creatine Kinaseon 08-24-2022 CK [Catalytic activity/Vol] 49 U/L Normal [facility] Comment on above: Result Comment: PERF ORMED BY: [place] [address] PATHOLOGIST UNDERTAKER HELPER CORAL GOLD M.D. Performed By: #### H S TROP #### [address] Creatine kinase [Enzymatic a ctivity/volume] in Serum or PlasmaOrdered By: Domenico Mcclurearthy on 08-24-2022 CK [Catalytic activity/Vol] 49 U/L [facility] Creatinine and Glomerular fi ltration rate.predicted panel (S/P/Bld)Ordered By: Domenico Serafin on 08-24-2022 Creatinine [Mass/Vol] 1.13 mg/dL 0.64-1.27 [facility] Drug Screen,Urineon 08-24-20 Amphetamine Screen,Urine Negative Normal Negative [facility] Comment on above: Performed By: #### U RDS #### [place] [address] [place] Barbiturate Screen,Urine Negative Normal Negative [facility] Comment on above: Performed By: #### U RDS #### [place] [address] [place] Benzodiazepines Screen,Urine Negative Normal Negative [facility] Comment on above: Performed By: #### U RDS #### [place] [address] [place] Cannabinoid Screen,Urine Negative Normal Negative [facility] Comment on above: Result Comment: Thes e are unconfirmed results and should not be used for legal purposes. Drug Cut-Off Concentration: AMPH 1000 ng/mL SHON 200 ng/mL SRAVANTHI 200 ng/mL COCM 300 ng/mL OP 300 ng/mL PCP 25 ng/mL THC 20 ng/mL PERFORMED BY: [place] [address] PATHOLOGIST UNDERTAKER HELPER CORAL GOLD M.D. Performed By: #### U RDS #### [address] [address] [place] Cocaine Screen,Urine Negative Normal Negative [facility] Comment on above: Performed By: #### U RDS #### [facility] [address] Opiate Screen,Urine Negative Normal Negative [facility] Comment on above: Performed By: #### U RDS #### [facility] [address] Phencyclidine Screen,Urine Negative Normal Negative [facility] Comment on above: Performed By: #### U RDS #### [facility] [address] ECG 12 lead ECGon 08-24-2022 ECG 12 lead ECG [facility] Main [place] [address] [place] [address] Electrocardiograph Report Signed Patient: Nirmal Chaidez MR#: [id number] 9 : 1945 Acct:[id number] Age/Sex: 76 / M ADM Date: 08/24/22 Loc: ER Room: Type: [facility] ER Attending Dr: Ordering Provider: Domenico Nicholson DO Date of Service: 08/24/2203/12/521 ECG/ECG 12 lead ECG: Fall Copies to: Test Reason : Blood Pressure : 127/066 mmHG Vent. Rate : 063 BPM Atrial Rate : 060 BPM P-R Int : 000 ms QRS Dur : 136 ms QT Int : 478 ms P-R-T Axes : 000 -76 097 degrees QTc Int : 489 ms Ventricular-paced rhythm Confirmed by Domenico Nicholson DO ([id number]) on 08/24/2022 8:52:33 AM Referred By: Electronically Signed By:Domenico Nicholson DO Transcribed By: MUS Signed By Domenico Nicholson DO 0852 Normal [facility] Eosinophils Auto (Bld) [#/Vo l]Ordered By: Domenico Nicholson on 08-24-2022 Eosinophils (Bld) [#/Vol] 0.1 10*3/uL 0.0-0.45 [facility] Eosinophils/100 WBC Auto (Bl d)Ordered By: Domenico Nicholson on 08-24-2022 Eosinophils/100 WBC (Bld) 1.4 % . [facility] Erythrocyte distribution wid th Auto (RBC) [Ratio]Ordered By: Domenico Nicholson on 08-24-2022 Erythrocyte distribution width (RBC) [Ratio] 15.9 % 12.0-14.8 [facility] Estimated glomerular filtrat ion rate (GFR) non- AmericanOrdered By: Domenico Nicholson on 08-24-2022 GFR/1.73 sq M.predicted among non-blacks MDRD (S/P/Bld) [Vol rate/Area] > 60 mL/Min [facility] Ethyl Alcohol Profileon Ethanol [Mass/Vol] mg/dL Normal [facility] Comment on above: Performed By: #### H S TROP #### [facility] [address] [place] [address] Percent Ethanol Not performed Normal [facility] Comment on above: Result Comment: PERF ORMED BY: [place] [address] PATHOLOGIST UNDERTAKER HELPER CORAL GOLD M.D. Performed By: #### H S TROP #### [facility] [address] [place] [address] [place] Glucose Glucometer (BldC) [M ass/Vol]Ordered By: Domenico Nicholson on 08-24-2022 Glucose [Mass/Vol] 133 mg/dL [facility] Comment on above: Random Glucose Refer ence Range is dependent on time and content of last meal. Glucose of more than 200 mg/dL in a nonstressed, ambulatory subject supports the diagnosis of Diabetes Mellitus. Glucose Poct Glucometerson 1 Commemt1 Glu2: Cleaned Meter Normal [facility] Comment on above: Result Comment: PERF ORMED BY: [place] [address] PATHOLOGIST UNDERTAKER HELPER CORAL GOLD M.D. Performed By: #### P TT, PT, ETOH, CBC, CMP #### [facility] [address] [place] [address] [place] Glucose [Mass/Vol] 133 mg/dL Normal [facility] Comment on above: Result Comment: [facility] Glucose Reference Range is dependent on time and content of last meal. Glucose of more than 200 mg/dL in a nonstressed, ambulatory subject supports the diagnosis of Diabetes Mellitus. Performed By: #### P TT, PT, ETOH, CBC, CMP #### [facility] [address] Hematocrit Auto (Bld) [Volum e fraction]Ordered By: Domenico Nicholson on 08-24-2022 Hematocrit (Bld) [Volume fraction] 40.8 % 38.8-50.0 [facility] Laboratory - Chemistry and C hemistry - challengeOrdered By: Domenico Nicholson on 08-24-2022 Lipase [Catalytic activity/Vol] 23.0 U/L [facility] Laboratory - CoagulationOrde red By: Domenico Nicholson on 08-24-2022 PT Coag (PPP) [Time] 30.6 s 9.0-12.9 [facility] Laboratory - Drug toxicology Ordered By: Domenico Nicholson on 08-24-2022 Opiates Ql (U) Negative Negative [facility] Laboratory - Hematology and Cell countsOrdered By: Domenico Nicholson on 08-24-2022 Nucleated RBC/100 WBC (Bld) [Ratio] 0.0 % 0-0.5 [facility] Laboratory - Microbiology an d Antimicrobial susceptibilityOrdered By: Domenico Nicholson on 08-24-2022 SARS-CoV-2 (COVID-19) RNA NA+probe Ql (Unsp spec) N/A [facility] Lipaseon 08-24-2022 Lipase [Catalytic activity/Vol] 23.0 U/L Normal [facility] Comment on above: Result Comment: PERF ORMED BY: [place] [address] PATHOLOGIST UNDERTAKER HELPER CORAL GOLD M.D. Performed By: #### H S TROP #### [facility] [address] [place] [address] Lymphocytes Auto (Bld) [#/Vo l]Ordered By: Domenico Nicholson on 08-24-2022 Lymphocytes (Bld) [#/Vol] 0.9 10*3/uL 1.00-4.8 [facility] Lymphocytes/100 WBC Auto (Bl d)Ordered By: Domenico Nicholson on 08-24-2022 Lymphocytes/100 WBC (Bld) 14.1 % . [facility] MCH Auto (RBC) [Entitic mass ]Ordered By: Domenico Nicholson on 08-24-2022 MCH (RBC) [Entitic mass] 28.7 pg 27.5-35.2 [facility] MCHC Auto (RBC) [Mass/Vol]Or dered By: Domenico Nicholson on 08-24-2022 MCHC (RBC) [Mass/Vol] 32.1 g/dL 32.5-35.6 [facility] MCV Auto (RBC) [Entitic vol] Ordered By: Domenico Nicholson on 08-24-2022 MCV (RBC) [Entitic vol] 89.3 fL 83.5-101 [facility] Monocytes Auto (Bld) [#/Vol] Ordered By: Domenico Nicholson on 08-24-2022 Monocytes (Bld) [#/Vol] 0.5 10*3/uL 0.0-0.8 [facility] Monocytes/100 WBC Auto (Bld) Ordered By: Domenico Nicholson on 08-24-2022 Monocytes/100 WBC (Bld) 8.2 % . [facility] Neutrophils Auto (Bld) [#/Vo l]Ordered By: Domenico Nicholson on 08-24-2022 Neutrophils (Bld) [#/Vol] 4.6 10*3/uL 1.8-7.7 [facility] Neutrophils/100 WBC Auto (Bl d)Ordered By: Domenico Nicholson on 08-24-2022 Neutrophils/100 WBC (Bld) 75.4 % . [facility] No Panel InformationOrdered By: Domenico Nicholson on 08-24-2022 Estimated GFR () > 60 mL/Min [facility] Comment on above: GFR estimated refere nce range: According to KDOQI guidelines, <60 ml/min/1.73m2 is sufficient to diagnose a patient with chronic kidney disease. Pharmacy Creatinine Clearance (Chem 77.86 [facility] Bedside Glucose Comment Glu2: cleaned meter [facility] SARS Antigen (LFIA) [facility] Partial Thromboplastin Timeo n 08-24-2022 aPTT Coag (Bld) [Time] 35.5 s Normal 25.1-36.[address] [facility] Comment on above: Result Comment: PERF ORMED BY: [place] [address] PATHOLOGIST UNDERTAKER HELPER CORAL GOLD M.D. Performed By: #### P TT, PT, ETOH, CBC, CMP #### [address] Phencyclidine Screen Ql (U)O rdered By: Domenico Nicholson on 08-24-2022 Phencyclidine Ql (U) Negative Negative [facility] Platelet mean volume Auto (B ld) [Entitic vol]Ordered By: Domenico Nicholson on 08-24-2022 Platelet mean volume (Bld) [Entitic vol] 8.2 fL 6.6-10.1 [facility] [place] [facility] Platelet poor plasma interna tional normalized ratio (INR) by coagulation assay (relatOrdered By: Domenico Nicholson on 08-24-2022 INR Coag (PPP) [Relative time] 2.7 {INR} [facility] Comment on above: INR Therapeutic Rang e A) Pre- and Peroperative OAT started two weeks before surgery. NOT HIP SURGERY: 1.5 - 2.5 HIP SURGERY: 2 - 3B) Primary and secondary prevention of venous THROMBOSIS: 2 - 3C) Active venous thrombosis, pulmonary embolismand prevention of recurrent venous thrombosis: 2 - 3D) Prevention of arterial thromboembolismincluding patients with mechanical heart valves: 3 - 4.5 Platelets Auto (Bld) [#/Vol] Ordered By: Domenico Nicholson on 08-24-2022 Platelets (Bld) [#/Vol] 170 10*3/uL 150-450 [facility] Prothrombin Time INRon 08-24 INR Coag (PPP) [Relative time] 2.7 {INR} Normal [facility] Comment on above: Result Comment: INR Therapeutic Range A) Pre- and Peroperative OAT started two weeks before surgery. NOT HIP SURGERY: 1.5 - 2.5 HIP SURGERY: 2 - 3 B) Primary and secondary prevention of venous THROMBOSIS: 2 - 3 C) Active venous thrombosis, pulmonary embolism and prevention of recurrent venous thrombosis: 2 - 3 D) Prevention of arterial thromboembolism including patients with mechanical heart valves: 3 - 4.5 Performed By: #### P TT, PT, ETOH, CBC, CMP #### [facility] [address] PT Coag (PPP) [Time] 30.6 s High 9.0-12.9 [facility] [facility] Comment on above: Performed By: #### P TT, PT, ETOH, CBC, CMP #### [facility] [address] RBC Auto (Bld) [#/Vol]Ordere d By: Domenico Nicholson on 08-24-2022 RBC (Bld) [#/Vol] 4.57 10*6/uL 3.90-5.60 [facility] Serum or plasma amylase robert urement (enzymatic activity/volume)Ordered By: Domenico Nicholson on 08-24-2022 Amylase [Catalytic activity/Vol] 30 U/L 28-100 [facility] Serum or plasma anion gap de terminationOrdered By: Domenico Nicholson on 08-24-2022 Anion gap [Moles/Vol] 11.9 mmol/L 6.0-15.0 [facility] Serum or plasma aspartate am inotransferase measurement (enzymatic activity/volume)Ordered By: Domenico Nicholson on 08-24-2022 AST [Catalytic activity/Vol] 16 U/L 10-42 [facility] Serum or plasma calcium robert urement (mass/volume)Ordered By: Domenico Nicholson on 08-24-2022 Calcium [Mass/Vol] 8.8 mg/dL 8.2-10.2 [facility] Serum or plasma chloride ralph surement (moles/volume)Ordered By: Domenico Nicholson on 08-24-2022 Chloride [Moles/Vol] 99 mmol/L 95-114 [facility] Serum or plasma ethanol robert urement (mass/volume)Ordered By: Domenico Nicholson on 08-24-2022 Ethanol [Mass/Vol] mg/dL [facility] Ethanol [Mass/Vol] TNP [facility] Comment on above: Test not performed Serum or plasma glucose robert urement (mass/volume)Ordered By: Domenico Nicholson on 08-24-2022 Glucose [Mass/Vol] 149 mg/dL 70-100 [facility] Comment on above: ADA recommended refe rence rangeRandom Glucose Reference Range is dependent on time and content of last meal. Glucose of more than 200 mg/dL in a nonstressed, ambulatory subject supports the diagnosis of Diabetes Mellitus. Serum or plasma potassium me asurement (moles/volume)Ordered By: Domenico Nicholson on 08-24-2022 Potassium [Moles/Vol] 3.8 mmol/L 3.5-5.1 [facility] Serum or plasma sodium measu rement (moles/volume)Ordered By: Domenico Nicholson on 08-24-2022 Sodium [Moles/Vol] 135 mmol/L 136-146 [facility] Serum or plasma total carbon dioxide measurement (moles/volume)Ordered By: Domenico Nicholson on 08-24-2022 CO2 [Moles/Vol] 27.9 mmol/L 22.0-30.[address] [facility] Serum or plasma urea nitroge n measurement (mass/volume)Ordered By: Domenico Nicholson on 08-24-2022 Urea nitrogen [Mass/Vol] 13 mg/dL - [facility] Dodie Ag Negativeon 08-24-20 Dodie Ag Negative Negative Normal Negative [facility] Comment on above: Result Comment: This is a duplicate Dodie SARS Antigen (BERNARD) result to be used for statistical tracking purpose only. PERFORMED BY: [place] [address] PATHOLOGIST UNDERTAKER HELPER CORAL GOLD M.D. Performed By: #### P TT, PT, ETOH, CBC, CMP #### [address] Type and Screenon 08-24-2022 ABO and Rh group Nom (Bld) Blood group O Rh(D) positive Normal [facility] Urine cocaine detectionOrder ed By: Domenico Nicholson on 08-24-2022 Cocaine Ql (U) Negative Negative [facility] XR chest 1V portableon 08-24 XR chest 1V portable [facility] Main [address] [address] XRay Report Signed Patient: Nirmal Chaidez MR#: [id number] 9 : 1945 Acct:[id number] Age/Sex: 76 / M ADM Date: 08/24/22 Loc: ER Room: Type: [facility] ER Attending Dr: Copies to: Domenico Nicholson DO Ordering Provider: Domenico Nicholson DO Date of Service: 08/24/22 XR/XR chest 1V portable: Fall PORTABLE AP ERECT CHEST 0532 hours CLINICAL HISTORY: Patient fell and has laceration of the head. COMPARISON: 07/03/2022 A left-sided pacemaker is again visualized. The heart is within normal limits. There is no vascular congestion. The right hemidiaphragm is slightly elevated. The left hemidiaphragm is not well seen though this might be technical. There is no other consolidation. There is no effusion or pneumothorax. The osseous structures are intact. XR/XR chest 1V portable IMPRESSION: NO DEFINITE ACUTE FINDINGS Impression dictated by: Ping Vora M.D.08/24/2022 9:11 AM Dictation Location: [place] [address] Transcribed By: [facility] 08/24/22910 Dictated By: Ping Vora MD 08/24/22 09 Signed By: 08/24/22 09 Normal [facility] XR chest 2V*on 07-03-2022 XR chest 2V* [facility] Main [address] [address] XRay Report Signed Patient: Nirmal Chaidez MR#: [id number] 9 : 1945 Acct:[id number] Age/Sex: 76 / M ADM Date: 07/02/22 Loc: Room: 2V3401-6 Type: ADM IN Attending Dr: Lalito Silva MD Copies to: Lalito Silva MD Ordering Provider: Lalito Silva MD Date of Service: 07/03/22 XR/XR chest 2V*: Rule out pneumothorax on only new implants cases in am PA AND LATERAL CHEST: CLINICAL HISTORY: Follow-up pacemaker insertion COMPARISON: 07/02/2022 A single lead pacemaker is again visualized on the left. There is no interval change from the prior. There is no focal parenchymal consolidation, effusion or pneumothorax. The cardiac, hilar and mediastinal silhouettes are within normal limits. There is no vascular congestion. The visualized bony structures are osteopenic. There is mild degenerative change. XR/XR chest 2V* IMPRESSION: STABLE PACEMAKER. NO POSTPROCEDURE PNEUMOTHORAX. Impression dictated by: Ping Vora M.D.07/03/2022 8:21 AM Dictation Location: [place] [address] Transcribed By: [facility] 07/03/22820 Dictated By: Ping Vora MD 07/03/22819 Signed By: 07/03/22820 [facility] Activated partial thrombopla stin time (aPTT) in platelet poor plasma by coagulation aOrdered By: Lalito Silva on 07-02-2022 aPTT Coag (PPP) [Time] 30.9 s 25.1-36.5 [facility] Basic Metabolic Panelon 06-21 Calcium [Mass/Vol] 9.0 mg/dL Normal 8.2-10.2 [facility] Comment on above: Performed By: #### H S TROP #### [facility] [address] [place] [id number] [place] Chloride [Moles/Vol] 100 mmol/L Normal 95-114 [facility] Comment on above: Performed By: #### H S TROP #### [facility] [address] [place] [address] [place] CO2 [Moles/Vol] 28.9 mmol/L Normal 22.0-30.[address] [facility] Comment on above: Performed By: #### H S TROP #### [address] Creatinine [Mass/Vol] 1.26 mg/dL Normal 0.64-1.27 [facility] Comment on above: Performed By: #### H S TROP #### [place] [address] [place] Creatinine Clr Calc Pharmacy 67.63 [facility] Comment on above: Result Comment: PERF ORMED BY: [place] [address] PATHOLOGIST UNDERTAKER HELPER CORAL GOLD M.D. Performed By: #### H S TROP #### [address] Estimated GFR ( Tracey > 60 [facility] Comment on above: Result Comment: GFR estimated reference range: According to KDOQI guidelines, <60 ml/min/1.73m2 is sufficient to diagnose a patient with chronic kidney disease. Performed By: #### H S TROP #### [address] Estimated GFR (Non- Am 56 [facility] Comment on above: Performed By: #### H S TROP #### [address] Glucose [Mass/Vol] 116 mg/dL High 70-100 [facility] Comment on above: Result Comment: [place] Glucose Reference Range is dependent on time and content of last meal. Glucose of more than 200 mg/dL in a nonstressed, ambulatory subject supports the diagnosis of Diabetes Mellitus. ADA recommended reference range Performed By: #### H S TROP #### [place] [address] [place] Potassium [Moles/Vol] 4.0 mmol/L Normal 3.5-5.1 [facility] Comment on above: Performed By: #### H S TROP #### [place] [address] [place] Sodium [Moles/Vol] 139 mmol/L Normal 136-146 [facility] Comment on above: Performed By: #### H S TROP #### [facility] [address] [place] [address] [place] Urea nitrogen [Mass/Vol] 25 mg/dL High 9- [facility] Comment on above: Performed By: #### H S TROP #### [facility] [address] [place] [address] [place] Basophils Auto (Bld) [#/Vol] Ordered By: Lalito Silva on 07-02-2022 Basophils (Bld) [#/Vol] 0.1 10*3/uL 0.0-0.2 [facility] Basophils/100 WBC Auto (Bld) Ordered By: Lalito Silva on 07-02-2022 Basophils/100 WBC (Bld) 0.8 % . [facility] Blood hemoglobin measurement (mass/volume)Ordered By: Lalito Silva on 07-02-2022 Hemoglobin (Bld) [Mass/Vol] 14.0 g/dL 13.0-17.0 [facility] Blood leukocytes automated c ount (number/volume)Ordered By: Lalito Silva on 07-02-2022 WBC (Bld) [#/Vol] 7.6 10*3/uL 4.5-11.0 [facility] COVID-19 Antigenon 2 COVID-19 Antigen Healthcare Worker?: N Reference Range: Negative Negative results, from patients with symptom onset beyond five days, should be treated as presumptive and confirmation with a molecular assay, if necessary, for patient management, may be performed. Negative results do not rule out COVID-19 and should not be used as the sole basis for treatment or patient management decisions, including infection control decisions. Negative results should be considered in the context of a patient's recent exposures, history and the presence of clinical signs and symptoms consistent with COVID-19. The Dodie SARS Antigen BERNARD does not differentiate between SARS-CoV and SARS-CoV-2. This test was developed and its performance characteristic determined by [employer] and validated at [facility]. This test has not been FDA cleared or approved. This test has been authorized by FDA under an Emergency Use Authorization (EUA). This test has been validated in accordance with the FDA's Guidance Document (Policy for Diagnostics Testing in Laboratories Certified to Perform High Complexity Testing under CLIA prior to Emergency Use Authorization for Coronavirus Disease-2019 during the Public Health Emergency) issued on February 21, 2020. This test is only authorized for the duration of time the declaration that circumstances exist justifying the authorization of the emergency use of in vitro diagnostic tests for detection of SARS-CoV-2 virus and/or diagnosis of COVID-19 infection under section 564(b)(1) of the Act, 21 U.S.C. 360bbb-3(b)(1), unless the authorization is terminated or revoked sooner. SARS-CoV+SARS-CoV-2 (COVID-19) Ag [Presence] in Respiratory specimen by Rapid immunoassay Negative for SARS Antigen by BERNARD PERFORMED BY: [place] [address] PATHOLOGIST UNDERTAKER HELPER CORAL GOLD M.D. Normal [facility] Comment on above: Performed By: #### H S TROP #### [address] COVID-19 SOFIAOrdered By: Sa tawny Smith on 07-02-2022 SARS-CoV+SARS-CoV-2 (COVID-19) Ag IA.rapid Ql (Resp) Negative Negative [facility] Comment on above: This is a duplicate Dodie SARS Antigen (BERNARD) result to be used for statistical tracking purpose only. Complete Blood Count Auto Di ffon 07-02-2022 Basophils (Bld) [#/Vol] 0.1 10*3/uL Normal 0.0-0.2 [facility] Comment on above: Result Comment: PERF ORMED BY: [place] [address] PATHOLOGIST UNDERTAKER HELPER CORAL GOLD M.D. Performed By: #### H S TROP #### [address] Basophils/100 WBC (Bld) 0.8 % Normal . [facility] Comment on above: Performed By: #### H S TROP #### [address] [place] [address] [place] Eosinophils (Bld) [#/Vol] 0.1 10*3/uL Normal 0.0-0.45 [facility] Comment on above: Performed By: #### H S TROP #### [address] Eosinophils/100 WBC (Bld) 1.2 % Normal . [facility] Comment on above: Performed By: #### H S TROP #### [address] Erythrocyte distribution width (RBC) [Ratio] 16.2 % High 12.0-14.8 [facility] Comment on above: Performed By: #### H S TROP #### [address] Hematocrit (Bld) [Volume fraction] 43.9 % Normal 38.8-50.0 [facility] Comment on above: Performed By: #### H S TROP #### [address] Hemoglobin (Bld) [Mass/Vol] 14.0 g/dL Normal 13.0-17.0 [facility] Comment on above: Performed By: #### H S TROP #### [address] Lymphocytes (Bld) [#/Vol] 1.4 10*3/uL Normal 1.00-4.8 [facility] Comment on above: Performed By: #### H S TROP #### [address] Lymphocytes/100 WBC (Bld) 18.8 % Normal . [facility] Comment on above: Performed By: #### H S TROP #### [address] MCH (RBC) [Entitic mass] 28.7 pg Normal 27.5-35.2 [facility] Comment on above: Performed By: #### H S TROP #### [address] MCV (RBC) [Entitic vol] 90.1 fL Normal 83.5-101 [facility] Comment on above: Performed By: #### H S TROP #### [address] Mean Corpuscular HGB Conc 31.9 g/dL Low 32.5-35.6 [facility] Comment on above: Performed By: #### H S TROP #### [address] Monocytes (Bld) [#/Vol] 0.6 10*3/uL Normal 0.0-0.8 [facility] Comment on above: Performed By: #### H S TROP #### [address] Monocytes/100 WBC (Bld) 7.2 % Normal . [facility] Comment on above: Performed By: #### H S TROP #### [address] Neutrophils (Bld) [#/Vol] 5.5 10*3/uL Normal 1.8-7.7 [facility] Comment on above: Performed By: #### H S TROP #### [address] Neutrophils/100 WBC (Bld) 72.0 % Normal . [facility] Comment on above: Performed By: #### H S TROP #### [place] [address] [place] Nucleated RBC/100 WBC (Bld) [Ratio] 0.1 % Normal 0-0.5 [facility] Comment on above: Performed By: #### H S TROP #### [address] Platelet mean volume (Bld) [Entitic vol] 8.3 fL Normal 6.6-10.1 [facility] Comment on above: Performed By: #### H S TROP #### [place] [address] [place] Platelets (Bld) [#/Vol] 225 10*3/uL Normal 150-450 [facility] Comment on above: Performed By: #### H S TROP #### [facility] [address] [place] [address] [place] RBC (Bld) [#/Vol] 4.87 10*6/uL Normal 3.90-5.60 [facility] Comment on above: Performed By: #### H S TROP #### [facility] [address] [place] [address] [place] WBC (Bld) [#/Vol] 7.6 10*3/uL Normal 4.5-11.0 [facility] Comment on above: Performed By: #### H S TROP #### [facility] [address] Creatinine and Glomerular fi ltration rate.predicted panel (S/P/Bld)Ordered By: Lalito Silva on 07-02-2022 Creatinine [Mass/Vol] 1.26 mg/dL 0.64-1.27 [facility] Eosinophils Auto (Bld) [#/Vo l]Ordered By: Lalito Silva on 07-02-2022 Eosinophils (Bld) [#/Vol] 0.1 10*3/uL 0.0-0.45 [facility] Eosinophils/100 WBC Auto (Bl d)Ordered By: Lalito Silva on 07-02-2022 Eosinophils/100 WBC (Bld) 1.2 % . [facility] Erythrocyte distribution wid th Auto (RBC) [Ratio]Ordered By: Lalito Silva on 07-02-2022 Erythrocyte distribution width (RBC) [Ratio] 16.2 % 12.0-14.8 [facility] Estimated glomerular filtrat ion rate (GFR) non- AmericanOrdered By: Lalito Silva on 07-02-2022 GFR/1.73 sq M.predicted among non-blacks MDRD (S/P/Bld) [Vol rate/Area] 56 mL/Min [facility] Hematocrit Auto (Bld) [Volum e fraction]Ordered By: Lalito Silva on 07-02-2022 Hematocrit (Bld) [Volume fraction] 43.9 % 38.8-50.0 [facility] Laboratory - CoagulationOrde red By: Lalito Silva on 07-02-2022 PT Coag (PPP) [Time] 15.7 s 9.0-12.9 [facility] Laboratory - Coagulationon 0 07-02-2022 INR Coag (Bld) [Relative time] 1.5 {INR} [facility] will 250 DO Work Phone: Comment on above: INR results are spec ifically intended to assess patients stabilized on long-term Anticoagulation therapy suggested INR?s ?Less Intensive Anticoagulation? 2.0 ? 3.0Conventional Range 3.0 ? 4.5 Laboratory - Hematology and Cell countsOrdered By: Lalito Silva on 07-02-2022 Nucleated RBC/100 WBC (Bld) [Ratio] 0.1 % 0-0.5 [facility] Lymphocytes Auto (Bld) [#/Vo l]Ordered By: Lalito Silva on 07-02-2022 Lymphocytes (Bld) [#/Vol] 1.4 10*3/uL 1.00-4.8 [facility] Lymphocytes/100 WBC Auto (Bl d)Ordered By: Lalito Silva on 07-02-2022 Lymphocytes/100 WBC (Bld) 18.8 % . [facility] MCH Auto (RBC) [Entitic mass ]Ordered By: Lalito Silva on 07-02-2022 MCH (RBC) [Entitic mass] 28.7 pg 27.5-35.2 [facility] MCHC Auto (RBC) [Mass/Vol]Or dered By: Lalito Silva on 07-02-2022 MCHC (RBC) [Mass/Vol] 31.9 g/dL 32.5-35.6 [facility] MCV Auto (RBC) [Entitic vol] Ordered By: Lalito Silva on 07-02-2022 MCV (RBC) [Entitic vol] 90.1 fL 83.5-101 [facility] Monocytes Auto (Bld) [#/Vol] Ordered By: Lalito Silva on 07-02-2022 Monocytes (Bld) [#/Vol] 0.6 10*3/uL 0.0-0.8 [facility] Monocytes/100 WBC Auto (Bld) Ordered By: Lalito Silva on 07-02-2022 Monocytes/100 WBC (Bld) 7.2 % . [facility] Neutrophils Auto (Bld) [#/Vo l]Ordered By: Lalito Silva on 07-02-2022 Neutrophils (Bld) [#/Vol] 5.5 10*3/uL 1.8-7.7 [facility] Neutrophils/100 WBC Auto (Bl d)Ordered By: Lalito Silva on 07-02-2022 Neutrophils/100 WBC (Bld) 72.0 % . [facility] No Panel InformationOrdered By: Lalito Silva on 07-02-2022 Estimated GFR () > 60 mL/Min [facility] Comment on above: GFR estimated refere nce range: According to KDOQI guidelines, <60 ml/min/1.73m2 is sufficient to diagnose a patient with chronic kidney disease. Pharmacy Creatinine Clearance (Chem 67.63 [facility] No Panel Informationon 07-02 33.6 {second(s)} Normal 25.1-36.5 [facility] will 250 DO Work Phone: Comment on above: Parameter 15 days - 4 weeks 1 - 5 months 6 - 11 months 1 - 5 years 6 - 10 years 11 - 17 years PTT Mean: 35.4 (27.6-45.6) Mean: 33.5 (24.8-40.7) Mean: 32.4 (25.1-40.7) Mean: 31.6 (24.0-39.2) Mean: 31.6 (26.9-38.7) Mean: 31.0 (24.6-38.4) Pediatric Reference ranges were obtained from a study by Ventura Leos et al. prepared from 1437 samples obtained at 7 different centers using the same coagulation reagent and instrumentation as [facility]. Currently there are no coagulation studies available worldwide for children to 14 days, and no normal ranges. Heparin therapeutic range (represented by Anti-Factor Xa activity of 0.2 - 0.4 U/mL) corresponds to PTT of 56.6 - 109.0 sec. 17.2 {second(s)} above high threshold 9.4-12.5 [facility] will 250 DO Work Phone: Comment on above: 15 days - 4 weeks 1 - 5 months 6 -11 months 1 ? 5 years 6 ? 10 years 11 -17 years Mean: 11.2 (9.5 ? 12.6) Mean: 11.0 (9.7 ? 12.8) Mean: 11.0 (9.8 ? 13.0) Mean: 11.3 (9.9 ? 13.4) Mean: 11.7 (10.0 ? 14.6) Mean: 11.8 (10.0 - 14.1) Pediatric Reference ranges were obtained from a study by Ventura Leos et al. prepared from 1437 samples obtained at 7 different centers using the same coagulation reagent and instrumentation as [facility]. Currently there are no coagulation studies available worldwide for children to 14 days, and no normal ranges. No Panel InformationOrdered By: Joss Smith on 07-02-2022 SARS Antigen (LFIA) [facility] Partial Thromboplastin Timeo n 07-02-2022 aPTT Coag (Bld) [Time] 30.9 s Normal 25.1-36.5 [facility] Comment on above: Result Comment: PERF ORMED BY: [place] [address] PATHOLOGIST UNDERTAKER HELPER CORAL GOLD M.D. Performed By: #### P TT, PT, ETOH, CBC, CMP #### [address] Platelet mean volume Auto (B ld) [Entitic vol]Ordered By: Lalito Silva on 07-02-2022 Platelet mean volume (Bld) [Entitic vol] 8.3 fL 6.6-10.1 [facility] Platelet poor plasma interna tional normalized ratio (INR) by coagulation assay (relatOrdered By: Lalito Silva on 07-02-2022 INR Coag (PPP) [Relative time] 1.4 {INR} [facility] Comment on above: INR Therapeutic Rang e A) Pre- and Peroperative OAT started two weeks before surgery. NOT HIP SURGERY: 1.5 - 2.5 HIP SURGERY: 2 - 3 B) Primary and secondary prevention of venous THROMBOSIS: 2 - 3 C) Active venous thrombosis, pulmonary embolism and prevention of recurrent venous thrombosis: 2 - 3 D) Prevention of arterial thromboembolism including patients with mechanical heart valves: 3 - 4.5 INR Therapeutic Rang e A) Pre- and Peroperative OAT started two weeks before surgery. NOT HIP SURGERY: 1.5 - 2.5 HIP SURGERY: 2 - 3B) Primary and secondary prevention of venous THROMBOSIS: 2 - 3C) Active venous thrombosis, pulmonary embolismand prevention of recurrent venous thrombosis: 2 - 3D) Prevention of arterial thromboembolismincluding patients with mechanical heart valves: 3 - 4.5 Platelets Auto (Bld) [#/Vol] Ordered By: Lalito Silva on 07-02-2022 Platelets (Bld) [#/Vol] 225 10*3/uL 150-450 [facility] Prothrombin Time INRon 07-02 INR Coag (PPP) [Relative time] 1.4 {INR} Normal [facility] Comment on above: Result Comment: INR Therapeutic Range A) Pre- and Peroperative OAT started two weeks before surgery. NOT HIP SURGERY: 1.5 - 2.5 HIP SURGERY: 2 - 3 B) Primary and secondary prevention of venous THROMBOSIS: 2 - 3 C) Active venous thrombosis, pulmonary embolism and prevention of recurrent venous thrombosis: 2 - 3 D) Prevention of arterial thromboembolism including patients with mechanical heart valves: 3 - 4.5 Performed By: #### P TT, PT, ETOH, CBC, CMP #### [facility] [address] [place] [address] [place] PT Coag (PPP) [Time] 15.7 s High 9.0-12.9 [facility] Comment on above: Performed By: #### P TT, PT, ETOH, CBC, CMP #### [facility] [address] [place] [address] [place] RBC Auto (Bld) [#/Vol]Ordere d By: Lalito Silva on 07-02-2022 RBC (Bld) [#/Vol] 4.87 10*6/uL 3.90-5.60 [facility] Serum or plasma calcium robert urement (mass/volume)Ordered By: Lalito Silva on 07-02-2022 Calcium [Mass/Vol] 9.0 mg/dL 8.2-10.2 [facility] Serum or plasma chloride ralph surement (moles/volume)Ordered By: Lalito Silva on 07-02-2022 Chloride [Moles/Vol] 100 mmol/L 95-114 [facility] Serum or plasma glucose robert urement (mass/volume)Ordered By: Lalito Silva on 07-02-2022 Glucose [Mass/Vol] 116 mg/dL 70-100 [facility] Comment on above: ADA recommended refe rence range Random Glucose Reference Range is dependent on time and content of last meal. Glucose of more than 200 mg/dL in a nonstressed, ambulatory subject supports the diagnosis of Diabetes Mellitus. ADA recommended refe rence rangeRandom Glucose Reference Range is dependent on time and content of last meal. Glucose of more than 200 mg/dL in a nonstressed, ambulatory subject supports the diagnosis of Diabetes Mellitus. Serum or plasma potassium me asurement (moles/volume)Ordered By: Lalito Silva on 07-02-2022 Potassium [Moles/Vol] 4.0 mmol/L 3.5-5.1 [facility] Serum or plasma sodium measu rement (moles/volume)Ordered By: Lalito Silva on 07-02-2022 Sodium [Moles/Vol] 139 mmol/L 136-146 [facility] Serum or plasma total carbon dioxide measurement (moles/volume)Ordered By: Lalito Silva on 07-02-2022 CO2 [Moles/Vol] 28.9 mmol/L 22.0-30.[address] [facility] Serum or plasma urea nitroge n measurement (mass/volume)Ordered By: Lalito Silva on 07-02-2022 Urea nitrogen [Mass/Vol] 25 mg/dL 9-23 [facility] Dodie Ag Negativeon 07-02-20 Dodie Ag Negative Negative Normal Negative [facility] Comment on above: Result Comment: This is a duplicate Dodie SARS Antigen (BERNARD) result to be used for statistical tracking purpose only. PERFORMED BY: [place] [address] [place] [address] PATHOLOGIST UNDERTAKER HELPER CORAL GOLD M.D. Performed By: #### H S TROP #### [facility] [address] [id number] [facility] XR chest 1V portableon 07-02 XR chest 1V portable [facility] Main [place] [address] [id number] XRay Report Signed Patient: Nirmal Chaidez MR#: [id number] 9 : 1945 Acct:[id number] Age/Sex: 76 / M ADM Date: 07/02/22 Loc: Room: [address] [place] [address] Type: ADM IN Attending Dr: Lalito Silva MD Copies to: Lalito Silva MD Ordering Provider: Lalito Silva MD Date of Service: 07/02/22 XR/XR chest 1V portable: Rule out pneumothorax on all pacemaker cases post op XR chest 1V portable 07/02/2022 7:32 PM SIGNS AND SYMPTOMS: Rule out pneumothorax on all pacemaker cases post op PROTOCOL: Frontal radiograph of the chest COMPARISON: 03/07/2022 FINDINGS: The trachea is midline. There is a single lead AICD in the left hemithorax. Atherosclerotic changes are present in the thoracic aorta. The heart and mediastinal structures are within normal limits. There is no pneumothorax. The lung parenchyma is clear. The bony thorax is intact. Degenerative changes are noted in the shoulders. XR/XR chest 1V portable IMPRESSION: There is a single lead AICD in the left hemithorax. No pneumothorax. No acute cardiopulmonary pathology. Impression dictated by: Norberto Villalta M.D.07/02/2022 7:35 PM Dictation Location: [place] [address] Transcribed By: [facility] 07/02/221934 Dictated By: Norberto Villalta II, MD 07/02/221933 Signed By: 07/02/221934 [facility] Office Visit (Cardiology)on 06-15-2022 Follow-up visit Diagnoses/Problems Assessed Atherosclerosis of coronary artery of [place] heart without angina pectoris (414.01) (I25.10) Hyperlipidemia (272.4) (E78.5) Essential hypertension, benign (401.1) (I10) Diabetes mellitus (250.00) (E11.9) Permanent atrial fibrillation (427.31) (I48.21) High risk medication use (V58.69) (Z79.899) Morbid obesity with BMI of 50.0-59.9, adult (278.01,V85.43) (E66.01,Z68.43) Former smoker (V15.82) (Z87.891) QUIT 1996 Orders Hyperlipidemia Changed: From Pravachol 40 MG TABS TAKE 1 TABLET DAILY To Pravastatin Sodium 40 MG Oral Tablet TAKE 1 TABLET DAILY Morbid obesity with BMI of 50.0-59.9, adult Healthy Weight Tips; Status:Complete - Retrospective Authorization; Done: [id number] Some eating tips that can help you lose weight.; Status:Complete - Retrospective Authorization; Done: [id number] SocHx: Former smoker Tobacco Use Screening; Status:Complete; Done: [id number] Patient Instructions Please bring all medicines, vitamins, and herbal supplements with you when you come to the office. Prescriptions will not be filled unless you are compliant with your follow up appointments or have a follow up appointment scheduled as per instruction of your physician. Refills should be requested at the time of your visit. INadeen LPN, am scribing for and in the presence of, Dr. Lalito Silva MD Follow up in 9 months Chief Complaint NIRMAL CHAIDEZ is being seen for a 3 month follow-up of. History of Present Illness Patient returns in follow-up of problems as noted. Is doing well. He denies any angina or anginal equivalent symptomatology. Management of his hypertension diabetes and hyperlipidemia is reviewed and felt to be adequate and appropriate. He is tolerating his permanent atrial fibrillation as well as anticoagulant therapy to mitigate stroke risk and because of all the above we suggest no changes. The merits of diet and weight loss were discussed in detail. Surgical History Problems History of Cataract surgery History of Complete colonoscopy Managed By: Ricardo Alegre MD (Gastroenterology) History of Cystocele repair History of Cystoscopy History of Dental surgery History of Finger amputation History of Hemorrhoidectomy History of Knee replacement History of Lithotripsy History of Orchiectomy radical History of Pyloromyotomy History of Shoulder surgery History of Umbilical hernia repair Current Meds Medication NameInstruction Allopurinol 300 MG Oral TabletTAKE 1 TABLET DAILY. Citalopram Hydrobromide 20 MG Oral TabletTAKE 1 TABLET DAILY. Ketoconazole 2 % External CreamAPPLY A THIN LAYER TO AFFECTED AREA(S) TWICE DAILY. as needed Lisinopril-hydroCHLOROthia zide 10-12.5 MG Oral TabletTAKE 1 TABLET TWICE DAILY. Nitroglycerin 0.4 MG Sub[address]ual Tablet SublingualPL[address] 1 TABLET UNDER THE TONGUE EVERY 5 MINUTES FOR UP TO 3 DOSES NEEDED FOR CHEST PAIN.CALL 911 IF PAIN PERSISTS. Potassium Bicarbonate 25 MEQ TBEFTake 1 tablet twice daily Pravachol 40 MG TABSTAKE 1 TABLET DAILY. Triamcinolone Acetonide OINTAPPLY TO AFFECTED AREA TWICE DAILY DIRECTED. Warfarin Sodium 4 MG Oral Tabletas directed by [facility] Patient did not bring medication list or bottles. Updated verbally with patient Allergies Medication Penicillins Allergy; Hives;; Recorded By: Reina Bloom; 08/04/2021 6:29:44 PM Social History Problems Consumes 1 to 2 servings of caffeine per day (V49.89) (Z78.9) Former smoker (V15.82) (Z87.891) QUIT 1996 No illicit drug use Occasional alcohol use Review of Systems Constitutional: not feeling tired. Eyes: no eyesight problems. ENT: no hearing loss and no nosebleeds. Cardiovascular: no intermittent leg claudication and as noted in HPI. Respiratory: no chronic cough and no shortness of breath. Gastrointestinal: no change in bowel habits and no blood in stools. Genitourinary: no urinary frequency and no hematuria. Skin: no skin rashes. Neurological: no seizures and no frequent falls. Psychiatric: no depression and not suicidal. All other systems have been reviewed and are negative for complaint. Vitals Vital Signs Recorded: [id number] 11:29AM Heart Rate68, R Radial [id number], RUE, Sitting Asvfosqqb42, RUE, Sitting Height5 ft 6 in Bvwhop766 lb BMI Nelbuejmqn13 kg/m2 BSA Calculated2.43 Tobacco Useb) No Physical Exam Constitutional: alert and in no acute distress. Eyes: no erythema, swelling or discharge from the eye . Neck: neck is supple, symmetric, trachea midline, no masses and no thyromegaly . Pulmonary: no increased work of breathing or signs of respiratory distress and lungs clear to auscultation. Cardiovascular: carotid pulses 2+ bilaterally with no bruit , JVP was normal, no thrills , regular rhythm, normal S1 and S2, no murmurs , pedal pulses 2+ bilaterally and no edema . Abdomen: abdomen non-tender, no masses and no hepatomegaly . Skin: skin warm and dry, normal s (more content not included)... Normal [employer] Tobacco Screening.on 022 Tobacco use status CPHS b) No M [facility]u will 250 DO Work Phone: Office Visit (Cardiology)on 03-16-2022 Follow-up visit Diagnoses/Problems Assessed Atherosclerosis of coronary artery of [place] heart without angina pectoris (414.01) (I25.10) Essential hypertension, benign (401.1) (I10) Diabetes mellitus (250.00) (E11.9) Hyperlipidemia (272.4) (E78.5) High risk medication use (V58.69) (Z79.899) Body mass index (BMI) of 50.0 to 59.9 in adult (V85.43) (Z68.43) Former smoker (V15.82) (Z87.891) QUIT 1996 Edema (782.3) (R60.9) Atrial flutter (427.32) (I48.92) Orders Atrial flutter IO EKG Electrocardiogram- 12 Lead; Status:Complete; Done: 16Mar2022 Body mass index (BMI) of 50.0 to 59.9 in adult Healthy Weight Tips; Status:Complete - Retrospective Authorization; Done: [id number] Edema Start: Torsemide 10 MG Oral Tablet; Take one tablet once daily Edema, Essential hypertension, benign, High risk medication use Basic Metabolic Panel; Status:Active - Retrospective Authorization; Requested for:15Apr2022; SocHx: Former smoker Tobacco Use Screening; Status:Complete; Done: 16Mar2022 Patient Instructions By signing my name below, I, Patrice Zuluaga LPN, attest that this documentation has been prepared under the direction and in the presence of Dr. Lalito Silva MD. All medical record entries made by the Scribe were at my direction and personally dictated by me. I have reviewed the chart and agree that the record accurately reflects my personal performance of the history, physical exam, discussion and plan. Please bring all medicines, vitamins, and herbal supplements with you when you come to the office. Prescriptions will not be filled unless you are compliant with your follow up appointments or have a follow up appointment scheduled as per instruction of your physician. Refills should be requested at the time of your visit. Fall prevention education given Follow up in 3 months d/c amiodarone testing Chief Complaint NIRMAL CHAIDEZ is being seen for a 6 month follow-up of. History of Present Illness Patient returns in follow-up of problems as noted. In the interim he is felt about the same. Unfortunately his exam demonstrates irregular rhythm and EKG demonstrates atrial fibrillation. Because of this we conclude that maintenance of sinus rhythm with intermediate to large dose amiodarone is unlikely and I recommend cessation of this agent and the other amiodarone testing. The reason and rationale for this was explained in great detail and explained the risk-benefit ratio of this particular medication is not favorable because is not maintaining rhythm. Because of this we will transition to rate control with antithrombotic therapy. Blood pressure and lipids, though, appear to be adequately managed as is diabetes. As always his body mass index is significantly elevated and the merits of diet and weight loss as well as increased activity were discussed. In regards to increase activity he is having difficulty. He has had about 4 falls in the last 3 months. He is now in physical therapy to strengthen his legs and work on gait training and I endorsed and supported this decision to participate in therapy. He and his are educated regarding other cardiac signs and symptoms to watch for and he has no angina or anginal equivalent symptomatology because of all the above we will proceed as noted. Surgical History Problems History of Cataract surgery History of Complete colonoscopy Managed By: Ricardo Alegre MD (Gastroenterology) History of Cystocele repair History of Cystoscopy History of Dental surgery History of Finger amputation History of Hemorrhoidectomy History of Knee replacement History of Lithotripsy History of Orchiectomy radical History of Pyloromyotomy History of Shoulder surgery History of Umbilical hernia repair Current Meds Medication NameInstruction Allopurinol 300 MG Oral TabletTAKE 1 TABLET DAILY. Amiodarone HCl - 200 MG Oral Tablettake 1 tablet by mouth twice a day Citalopram Hydrobromide 20 MG Oral TabletTAKE 1 TABLET DAILY. Effer-K 25 MEQ Oral Tablet EffervescentTAKE DIRECTED. Ketoconazole 2 % External CreamAPPLY A THIN LAYER TO AFFECTED AREA(S) TWICE DAILY. Lisinopril-hydroCHLOROthia zide 10-12.5 MG Oral TabletTAKE 1 TABLET TWICE DAILY. Multi Vitamin Oral TabletTAKE 1 TABLET DAILY. Nitroglycerin 0.4 MG [address]ual Tablet SublingualPL[address] 1 TABLET UNDER THE TONGUE EVERY 5 MINUTES FOR UP TO 3 DOSES NEEDED FOR CHEST PAIN.CALL 911 IF PAIN PERSISTS. Potassium Bicarbonate 25 MEQ TBEFTake 1 tablet twice daily Pravachol 40 MG TABSTAKE 1 TABLET DAILY. Triamcinolone Acetonide OINTAPPLY TO AFFECTED AREA TWICE DAILY DIRECTED. Warfarin Sodium 4 MG Oral Tabletas directed by [facility] Allergies Medication Penicillins Allergy; Hives;; Recorded By: Reina Bloom; 08/04/2021 6:29:44 PM Social History Problems Consumes 1 to 2 servings of caffeine per day (V49.89) (Z78.9) Former smoker (V15.82) (Z87.891) QUIT 1996 No illicit drug use Occasional alcohol use (more content not included)... Normal [facility] Tobacco Screening.on 022 Adult depression screening assessment No [facility] BUL[facility] 250 DO Work Phone: Fall risk assessment b) One or more fall s in the last year [facility] 250 DO Work Phone: Tobacco use status CPHS b) No M [facility] 250 DO Work Phone: No Panel Informationon 01-20 22\S\22 Normal 10-42 [facility] 250 DO Work Phone: 0.50\S\0.50 Normal 0.45-5.33 [facility] 250 DO Work Phone: Comment on above: PERFORMED BY:[place] [address] [place], [place] [id number] MEDICAL DIRECTORCORAL GOLD M.D. 9.1\S\9.1 Normal 8.2-10.2 [facility] 250 DO Work Phone: 24.4\S\24.4 Normal 22.0-30.0 [facility] Car [place] 250 DO Work Phone: 102\S\102 Normal 95-114 [facility] 250 DO Work Phone: 4.1\S\4.1 Normal 3.5-5.1 [facility] [place] 250 DO Work Phone: 138\S\138 Normal 136-146 [facility] [place] 250 DO Work Phone: 55\S\55 Normal [facility] [place] 250 DO Work Phone: Comment on above: GFR estimated refere nce range: According to KDOQI guidelines, <60 ml/min/1.73m2 is sufficient to diagnose a patient with chronic kidney disease. 45\S\45 Normal [facility] [place] 250 DO Work Phone: 1.51\S\1.51 above high threshold 0.64-1.27 [facility] [place] 250 DO Work Phone: 23\S\23 Normal 9-23 [facility] [place] 250 DO Work Phone: 109\S\109 above high threshold 70-100 [facility] [place] 250 DO Work Phone: Comment on above: Random Glucose Refer ence Range is dependent on time and content of last meal. Glucose of more than 200 mg/dL in a nonstressed, ambulatory subject supports the diagnosis of Diabetes Mellitus. ADA recommended reference range Radiologyon 01-20-2022 XR Chest 2 Views Normal [facility] [place] 250 DO Work Phone: No Panel Informationon 09-23 Normal [facility] [place] 250 DO Work Phone: No Panel Informationon 09-22 [facility] 250 DO Work Phone: IO EKG Electrocardiogram- 12 Leadon 09-07-2021 IO EKG Electrocardiogram- 12 Lead See Scanned Document [facility]Armando Bowens DO Work Phone: Office Visit (Cardiology)on 09-07-2021 Follow-up visit Diagnoses/Problems Assessed Atherosclerosis of coronary artery of [place] heart without angina pectoris (414.01) (I25.10) Atrial flutter (427.32) (I48.92) Essential hypertension, benign (401.1) (I10) Diabetes mellitus (250.00) (E11.9) Hyperlipidemia (272.4) (E78.5) Body mass index (BMI) of 50.0 to 59.9 in adult (V85.43) (Z68.43) Former smoker (V15.82) (Z87.891) QUIT 1996 Obesity, morbid (more than 100 lbs over ideal weight or BMI > 40) (278.01) (E66.01) Orders Atherosclerosis of coronary artery of [place] heart without angina pectoris Renew: Aspirin EC 81 MG Oral Tablet Delayed Release; TAKE 1 TABLET DAILY SocHx: Former smoker Tobacco Use Screening; Status:Complete; Done: 07Sep2021 Follow up in 6-9 months Amiodarone follow up per routine Patient Instructions By signing my name below, I, Awilda Bailey LPN ,Scribe, attest that this documentation has been prepared under the direction and in the presence of Dr. Lalito Silva MD. Please bring all medicines, vitamins, and herbal supplements with you when you come to the office. Prescriptions will not be filled unless you are compliant with your follow up appointments or have a follow up appointment scheduled as per instruction of your physician. Refills should be requested at the time of your visit. Chief Complaint NIRMAL CHAIDEZ is being seen for F/U Cath. History of Present Illness Patient returns in follow-up of problems as noted. He is doing well. I cannot elicit angina CHF arrhythmia or neurologic symptomatology. He underwent cardioversion recently and notes an improvement in functional status. His states that he has more energy during the day, naps less, and sleeps better at night. He notes he is more aerobically active and he is actually cutting the grass with no symptoms of angina or anginal equivalent symptomatology He advises me he is having a prostate procedure in the near future. I believe he is a suitable candidate for the procedure and I will correspond with the surgeon. As always the merits of diet lifestyle modification exercise and weight loss were discussed and advocated. Surgical History Problems History of Cataract surgery History of Complete colonoscopy Managed By: Ricardo Alegre MD (Gastroenterology) History of Cystocele repair History of Cystoscopy History of Dental surgery History of Finger amputation History of Hemorrhoidectomy History of Knee replacement History of Lithotripsy History of Orchiectomy radical History of Pyloromyotomy History of Shoulder surgery History of Umbilical hernia repair Current Meds Medication NameInstruction Allopurinol 300 MG Oral TabletTAKE 1 TABLET DAILY. Amiodarone HCl - 200 MG Oral TabletTAKE 1 TABLET DAILY. Amiodarone HCl - 200 MG Oral TabletTAKE 1 TABLET TWICE DAILY. Aspirin EC 81 MG Oral Tablet Delayed ReleaseTAKE 1 TABLET DAILY. Citalopram Hydrobromide 20 MG Oral TabletTAKE 1 TABLET DAILY. Effer-K 25 MEQ Oral Tablet EffervescentTAKE DIRECTED. Ketoconazole 2 % External CreamAPPLY A THIN LAYER TO AFFECTED AREA(S) TWICE DAILY. Lisinopril-hydroCHLOROthia zide 10-12.5 MG Oral TabletTAKE 1 TABLET TWICE DAILY. Multi Vitamin Oral TabletTAKE 1 TABLET DAILY. Nitroglycerin 0.4 MG Sublingual Tablet SublingualPLACE 1 TABLET UNDER THE TONGUE EVERY 5 MINUTES FOR UP TO 3 DOSES NEEDED FOR CHEST PAIN.CALL 911 IF PAIN PERSISTS. Pravachol 40 MG TABSTAKE 1 TABLET DAILY. Tamsulosin HCl - 0.4 MG Oral CapsuleTake 1 capsule twice daily Triamcinolone Acetonide OINTAPPLY TO AFFECTED AREA TWICE DAILY DIRECTED. Warfarin Sodium 4 MG Oral Tabletas directed by [facility] Allergies Medication Penicillins Allergy; Hives;; Recorded By: Reina Bloom; 08/04/2021 6:29:44 PM Social History Problems Consumes 1 to 2 servings of caffeine per day (V49.89) (Z78.9) Former smoker (V15.82) (Z87.891) QUIT 1996 No illicit drug use Occasional alcohol use Review of Systems Constitutional: not feeling tired. Eyes: no eyesight problems. ENT: no hearing loss and no nosebleeds. Cardiovascular: no intermittent leg claudication and as noted in HPI. Respiratory: no chronic cough and no shortness of breath. Gastrointestinal: no change in bowel habits and no blood in stools. Genitourinary: no urinary frequency and no hematuria. Skin: no skin rashes. Neurological: no seizures and no frequent falls. Psychiatric: no depression and not suicidal. All other systems have been reviewed and are negative for complaint. Vitals Vital Signs Recorded: 07Sep2021 09:34AM Heart Rate70, Apical Alkhvkux36, RUE, Sitting Bqjaxrcxs56, RUE, Sitting Height5 ft 6.5 in Prclxp283 lb BMI Aiyiaafvkj83.26 kg/m2 BSA Calculated2.5 Tobacco Useb) No Fall Screeninga) No falls within the last year EKG done in office today. Physical Exam Constitutional: alert and in no acute distress. Eyes: no erythema, swelling or discharge from the eye . Neck: neck is supple (more content not included)... Normal [place] Tobacco Screening.on 021 Fall risk assessment a) No falls within the last year [facility] BUL[facility] 250 DO Work Phone: Tobacco use status CPHS b) No M [facility] BULX 250 DO Work Phone: BRAIN WO CONTRASTon 04-29-20 19 BRAIN WO CONTRAST *FINAL Date of Service: 04/29/2019 16:43 Adm #: [id number] Reading Dr:MALLIKA QUINONES Signoff Dr: MALLIKA QUINONES PROCEDURE: BRAIN WO CONTRAST - WCT 3000 REASON FOR EXAM: fall RESULT: BRAIN WO CONTRAST: 04/29/2019 4:43 PM CLINICAL INDICATION: Fall with patient on Coumadin COMPARISON: No comparison exams available. TECHNIQUE: CT axial images through the Brain were obtained without contrast. PATIENT RADIATION EXPOSURE DATA: CTDI mGy: 57.50 mGy DLP mGy/cm: 1039 mGycm FINDINGS: There is mild ventricular enlargement with deepening and widening of the sulci and of the sylvian fissures. Incidental note is made of cavum vergae and cavum septum pellucidum. There is diminished density seen within the white matter of each cerebral hemisphere indicating chronic microvascular ischemic disease. No mass effect, intracranial hemorrhage, or extra-axial fluid collection is observed. No hyperdense MCA sign is present. There is no obvious linear or depressed calvarial fracture.. IMPRESSION: Atrophy and chronic microvascular ischemic disease without acute intracranial process. [id number] This report has been produced using speech recognition. This exam is available in DICOM format to non-affiliated healthcare facilities on a secure media free searchable basis with prior patient authorization. The patient exposure is reported to a radiation dose index registry. All CT examinations are performed with one or more of the following dose reduction techniques: Automated Exposure Control, Adjustment of mA and/or KV according to patient size, or use of iterative reconstruction techniques. Original Interpreting Physician: MALLIKA QUINONES M.D. Original Transcribed by/Date: [facility] Apr 29 2019 4:50P Original Electronically Signed by/Date: MALLIKA QUINONES M.D. Apr 29 2019 4:50P Addendum Interpreting Physician: Addendum Transcribed by/Date: NO ADDENDUM Addendum Electronically Signed by/Date: [facility] KNEE BI 1 OR 2 VIEWon 2018 KNEE BI 1 OR 2 VIEW *FINAL Date of Service: 04/29/2019 16:45 Adm #: [id number] Reading Dr:MALLIKA QUINONES Signoff Dr: MALLIKA QUINONES PROCEDURE: KNEE BI 1 OR 2 VIEW - WXR 0219 REASON FOR EXAM: fall RESULT: KNEE BI 1 OR 2 VIEW: 04/29/2019 4:45 PM CLINICAL HISTORY: Fall with bilateral knee pain COMPARISON: None. TECHNIQUE: Two views of each knee were performed. FINDINGS: There are small bilateral joint effusions noted with post operative change bilaterally secondary to tricompartmental knee arthroplasty. The femoral and tibial components are anatomically aligned bilaterally. There is no fracture or dislocation of either knee. IMPRESSION: No acute bony abnormality.. Small joint effusion bilaterally with postoperative change due to bilateral tricompartmental knee arthroplasty. [id number] This report has been produced using speech recognition. Original Interpreting Physician: MALLIKA QUINONES M.D. Original Transcribed by/Date: [facility] Apr 29 2019 4:53P Original Electronically Signed by/Date: MALLIKA QUINONES M.D. Apr 29 2019 4:53P Addendum Interpreting Physician: Addendum Transcribed by/Date: NO ADDENDUM Addendum Electronically Signed by/Date: [facility] PROTHROMBIN TIMEon 9 INR Coag RelTime (PPP) High 0.86-1.16 [facility] Comment on above: Result Comment: 2.5 INR Theraputic Range: 2.0-3.5 Performed at [address] [address] Performed By: #### P TB #### [facility] [address] [address] Prothrombin time (PT) Coag time (PPP) INFORMATION NOT REPORTED TO LABORATORY [facility] Comment on above: Performed By: #### P TB #### [facility] [address] [address] Prothrombin time (PT) Coag time (PPP) 24.9 s High 9.3-12.7 [facility] Comment on above: Performed By: #### P TB #### [facility] [address] [address] SHOULDER RT MIN 2 VIEWon SHOULDER RT MIN 2 VIEW *FINAL Date of Service: 04/29/2019 16:45 Adm #: [id number] Reading Dr:MALLIKA QUINONES Signoff Dr: MALLIKA QUINONES PROCEDURE: SHOULDER RT MIN 2 VIEW - WXR 0048 REASON FOR EXAM: fall RESULT: SHOULDER RT MIN 2 VIEW: 04/29/2019 4:45 PM CLINICAL HISTORY: Pain and fall COMPARISON: None. TECHNIQUE: Three views of the Right shoulder were performed. FINDINGS: No fracture or dislocation is observed. The acromiohumeral joint space is narrowed consistent with chronic rotator cuff tear. There is osteophytosis of the humeral head and of the glenoid with additional osteophytosis about the acromioclavicular joint. IMPRESSION: No fracture or dislocation of right shoulder. Chronic rotator cuff tear. 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 [id number] This report has been produced using speech recognition. Original Interpreting Physician: MALLKIA QUINONES M.D. Original Transcribed by/Date: PSC[facility] Apr 29 2019 4:51P Original Electronically Signed by/Date: MALLIKA QUINONES M.D. Apr 29 2019 4:51P Addendum Interpreting Physician: Addendum Transcribed by/Date: NO ADDENDUM Addendum Electronically Signed by/Date: [facility] SPINE CERVICAL WO CONTRASTon 04-29-2019 SPINE CERVICAL WO CONTRAST *FINAL Date of Service: 04/29/2019 16:43 Adm #: [id number] Reading Dr:MALLIKA QUINONES Signoff Dr: MALLIKA QUINONES PROCEDURE: SPINE CERVICAL WO CONTRAST - WCT 3025 REASON FOR EXAM: fall RESULT: SPINE CERVICAL WO CONTRAST: 04/29/2019 4:43 PM CLINICAL INDICATION: Fall with patient on Coumadin. COMPARISON: None. TECHNIQUE: Axial images of the cervical spine are obtained without intravenous contrast. Coronal and sagittal 2-dimensional reconstructions were also obtained. PATIENT RADIATION EXPOSURE DATA: CTDI (mGy): 32.80 mGy DLP (mGy/cm): 730 mGycm FINDINGS: There is no fracture or subluxation. There is no prevertebral soft tissue swelling. Reversal of the cervical lordosis is observed and may be due to muscle spasm or patient positioning. There is moderately severe disc space narrowing at C4-5 and C5-6 with rather severe disc space narrowing at C6-7 and C7-T1 levels. Moderate disc space narrowing is also noted at the C3-4 level. There are small anterior osteophytes projecting from the endplates from the C3-4 through the C7-T1 levels. There is uncovertebral joint spurring on the right at C4-5, C5-6, and C6-7 and on the left at at these levels as well.. There is degenerative spondyloarthropathy bilaterally at C7-T1. IMPRESSION: No fracture or dislocation. Reversal of cervical lordosis may be related to muscle spasm or patient positioning. 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 [id number] This report has been produced using speech recognition. This exam is available in DICOM format to non-affiliated healthcare facilities on a secure media free searchable basis with prior patient authorization. The patient exposure is reported to a radiation dose index registry. All CT examinations are performed with one or more of the following dose reduction techniques: Automated Exposure Control, Adjustment of mA and/or KV according to patient size, or use of iterative reconstruction techniques. Original Interpreting Physician: MALLIKA QUINONES M.D. Original Transcribed by/Date: [facility] Apr 29 2019 5:02P Original Electronically Signed by/Date: MALLIKA QUINONES M.D. Apr 29 2019 5:02P Addendum Interpreting Physician: Addendum Transcribed by/Date: NO ADDENDUM Addendum Electronically Signed by/Date: [facility] Vital Signs Date Time Vital Sign Value Performing Clinician Facility 10-17-2023 10:00-0500 Body height Modesto Ball Other [employer] Other 10-17-2023 10:00-0500 Body mass index (BMI) [Ratio] 53.19 kg/m2 Modesto Ball Other [employer] Other 10-17-2023 10:00-0500 Body weight 149.51 kg Modesto Ball Other [employer] Other 10-17-2023 10:00-0500 Diastolic blood pressure 83 mm[Hg] Modesto Ball Other [employer] Other 10-17-2023 10:00-0500 Respiratory rate 20 /min Modesto Ball Other [employer] Other 10-17-2023 10:00-0500 Systolic blood pressure 144 mm[Hg] Modesto Ball Other [employer] Other 10-07-2023 15:25-0500 Body height 165.1 cm Lalito Silva MD Work Phone: [facility] 10-07-2023 15:25-0500 Body mass index (BMI) [Ratio] 52.42 kg/m2 Lalito Silva MD Work Phone: [facility] 10-07-2023 15:25-0500 Body weight 142.88 kg Lalito Silva MD Work Phone: [facility] 10-07-2023 15:25-0500 Diastolic blood pressure 78 mm[Hg] Lalito Silva MD Work Phone: [facility] 10-07-2023 15:25-0500 Heart rate 80 /min Lalito Silva MD Work Phone: [facility] 10-07-2023 15:25-0500 Systolic blood pressure 118 mm[Hg] Lalito Silva MD Work Phone: [facility] 09-23-2023 10:30-0400 Body height Modesto Ball Other [employer] Other 09-23-2023 10:30-0400 Body mass index (BMI) [Ratio] 52.13 kg/m2 Modesto Ball Other [employer] Other 09-23-2023 10:30-0400 Body weight 146.51 kg Modesto Ball Other [employer] Other 09-23-2023 10:30-0400 Diastolic blood pressure 82 mm[Hg] Modesto Ball Other [employer] Other 09-23-2023 10:30-0400 Respiratory rate 20 /min Modesto Ball Other [employer] Other 09-23-2023 10:30-0400 Systolic blood pressure 147 mm[Hg] Modesto Ball Other [employer] Other 09-23-2023 09:30-0400 Body height Modesto Ball Other [employer] Other 09-23-2023 09:30-0400 Body mass index (BMI) [Ratio] 52.13 kg/m2 Modesto Ball Other [employer] Other 09-23-2023 09:30-0400 Body weight 146.51 kg Modesto Ball Other [employer] Other 09-23-2023 09:30-0400 Diastolic blood pressure 82 mm[Hg] Modesto Ball Other [employer] Other 09-23-2023 09:30-0400 Respiratory rate 20 /min Modesto Ball Other [employer] Other 09-23-2023 09:30-0400 Systolic blood pressure 147 mm[Hg] Modesto Ball Other [employer] Other 06-23-2023 11:00-0400 Body height Modesto Ball Other [employer] Other 06-23-2023 11:00-0400 Body mass index (BMI) [Ratio] 51.03 kg/m2 Modesto Ball Other [employer] Other 06-23-2023 11:00-0400 Body weight 143.43 kg Modesto Ball Other [employer] Other 06-23-2023 11:00-0400 Diastolic blood pressure 74 mm[Hg] Modesto Ball Other [employer] Other 06-23-2023 11:00-0400 Respiratory rate 20 /min Modesto Ball Other [employer] Other 06-23-2023 11:00-0400 Systolic blood pressure 116 mm[Hg] Modesto Ball Other [employer] Other 05-15-2023 00:03-0400 Diastolic blood pressure 76 mm[Hg] DO Modesto Ball Work Phone: [facility] 05-15-2023 00:03-0400 Heart rate 72 /min DO Modesto Ball Work Phone: [facility] 05-15-2023 00:03-0400 Respiratory rate 14 /min DO Modesto Ball Work Phone: [facility] 05-15-2023 00:03-0400 SaO2% (BldA) [Mass fraction] 96 % DO Modesto Ball Work Phone: [facility] 05-15-2023 00:03-0400 Systolic blood pressure 143 mm[Hg] DO Modesto Ball Work Phone: [facility] 05-14-2023 22:42-0400 Body temperature 97.5 [degF] DO Modesto Ball Work Phone: [facility] 05-14-2023 19:48-0400 Body height 170.18 cm DO Modesto Ball Work Phone: [facility] 05-14-2023 19:48-0400 Body weight 143.8 kg DO Modesto Ball Work Phone: [facility] 03-08-2023 09:15-0400 Body height 167.64 cm Modesto E Ball Work Phone: [facility] 250 DO Work Phone: 03-08-2023 09:15-0400 Body mass index (BMI) [Ratio] 50.68 kg/m2 Modesto E Ball Work Phone: [facility] 250 DO Work Phone: 03-08-2023 09:15-0400 Body surface area Derived from formula 2.42 m2 Modesto E Ball Work Phone: [facility] 250 DO Work Phone: 03-08-2023 09:15-0400 Body weight 142.43 kg Modesto E Ball Work Phone: [facility] 250 DO Work Phone: 03-08-2023 09:15-0400 Diastolic blood pressure 72 mm[Hg] Modesto E Ball Work Phone: [facility] [employer] 250 DO Work Phone: 03-08-2023 09:15-0400 Heart rate 62 /min Modesto E Ball Work Phone: [facility] [employer] 250 DO Work Phone: 03-08-2023 09:15-0400 Systolic blood pressure 120 mm[Hg] Modesto E Ball Work Phone: [facility] [employer] 250 DO Work Phone: 02-22-2023 11:00-0400 Body height Modesto Ball Other [facility] Other 02-22-2023 11:00-0400 Body mass index (BMI) [Ratio] 51.58 kg/m2 Modesto Ball Other [facility] Other 02-22-2023 11:00-0400 Body weight 144.97 kg Modesto Ball Other [facility] Other 02-22-2023 11:00-0400 Diastolic blood pressure 80 mm[Hg] Modesto Ball Other [facility] Other 02-22-2023 11:00-0400 Respiratory rate 20 /min Modesto Ball Other [facility] Other 02-22-2023 11:00-0400 Systolic blood pressure 128 mm[Hg] Modesto Ball Other [facility] Other 08-24-2022 09:00-0400 Diastolic blood pressure 66 mm[Hg] DO Modesto Ball Work Phone: [facility] 08-24-2022 09:00-0400 Heart rate 62 /min DO Modesto Ball Work Phone: [facility] 08-24-2022 09:00-0400 Respiratory rate 20 /min DO Modesto Ball Work Phone: [facility] 08-24-2022 09:00-0400 SaO2% (BldA) [Mass fraction] 96 % DO Modesto Ball Work Phone: [facility] 08-24-2022 09:00-0400 Systolic blood pressure 106 mm[Hg] DO Modesto Ball Work Phone: [facility] 08-24-2022 05:19-0400 Body height 170.18 cm DO Modesto Ball Work Phone: [facility] 08-24-2022 05:19-0400 Body weight 148.3 kg DO Modesto Ball Work Phone: [facility] 08-24-2022 05:10-0400 Body temperature 97.9 [degF] DO Modesto Ball Work Phone: [facility] 07-03-2022 07:42-0400 Diastolic blood pressure 81 mm[Hg] DO Modesto Ball Work Phone: [facility] 07-03-2022 07:42-0400 Heart rate 90 /min DO Modesto Ball Work Phone: [facility] 07-03-2022 07:42-0400 Respiratory rate 18 /min DO Modesto Ball Work Phone: [facility] 07-03-2022 07:42-0400 SaO2% (BldA) [Mass fraction] 97 % DO Modesto Ball Work Phone: [facility] 07-03-2022 07:42-0400 Systolic blood pressure 130 mm[Hg] DO Modesto Ball Work Phone: [facility] 07-03-2022 05:36-0400 Body weight 142.5 kg DO Modesto Ball Work Phone: [facility] 07-02-2022 19:55-0400 Body temperature 97.9 [degF] DO Modesto Ball Work Phone: [facility] 07-02-2022 18:56-0400 Inhaled oxygen flow rate 8 L/min DO Modesto Ball Work Phone: [facility] 07-02-2022 18:18-0400 Body height 170.18 cm DO Modesto Ball Work Phone: [facility] 07-02-2022 18:18-0400 Body mass index (BMI) [Ratio] 48.5 kg/m2 DO Modesto Ball Work Phone: [facility] 06-15-2022 11:29-0400 Body height 167.64 cm Modesto E Ball Work Phone: [facility] 250 DO Work Phone: 06-15-2022 11:29-0400 Body mass index (BMI) [Ratio] 51 kg/m2 Modesto E Ball Work Phone: [facility] [place] 250 DO Work Phone: 06-15-2022 11:29-0400 Body surface area Derived from formula 2.43 m2 Modesto E Ball Work Phone: [facility] 250 DO Work Phone: 06-15-2022 11:29-0400 Body weight 143.34 kg Modesto E Ball Work Phone: [facility] 250 DO Work Phone: 06-15-2022 11:29-0400 Diastolic blood pressure 62 mm[Hg] Modesto E Ball Work Phone: [facility] 250 DO Work Phone: 06-15-2022 11:29-0400 Heart rate 68 /min Modesto E Ball Work Phone: [facility] 250 DO Work Phone: 06-15-2022 11:29-0400 Systolic blood pressure 108 mm[Hg] Modesto E Ball Work Phone: [facility] 250 DO Work Phone: 03-16-2022 08:50-0400 Body height 167.64 cm Modesto E Ball Work Phone: [facility] 250 DO Work Phone: 03-16-2022 08:50-0400 Body mass index (BMI) [Ratio] 51.65 kg/m2 Modesto E Ball Work Phone: [facility] 250 DO Work Phone: 03-16-2022 08:50-0400 Body surface area Derived from formula 2.44 m2 Modesto E Ball Work Phone: [facility] 250 DO Work Phone: 03-16-2022 08:50-0400 Body weight 145.15 kg Modesto E Ball Work Phone: [facility] 250 DO Work Phone: 03-16-2022 08:50-0400 Diastolic blood pressure 70 mm[Hg] Modesto E Ball Work Phone: [facility] 250 DO Work Phone: 03-16-2022 08:50-0400 Heart rate 54 /min Modesto E Ball Work Phone: [facility] 250 DO Work Phone: 03-16-2022 08:50-0400 Systolic blood pressure 118 mm[Hg] Modesto E Ball Work Phone: [facility] 250 DO Work Phone: 09-22-2021 00:00-0400 56 1 Modesto E Ball Work Phone: [facility] 250 DO Work Phone: Comment on above: [id number] 09-07-2021 09:34-0400 Body height 168.91 cm Modesto E Ball Work Phone: [facility] 250 DO Work Phone: 09-07-2021 09:34-0400 Body mass index (BMI) [Ratio] 53.26 kg/m2 Modesto Chavarria Work Phone: [facility] 250 DO Work Phone: 09-07-2021 09:34-0400 Body surface area Derived from formula 2.5 m2 Modesto Chavarria Work Phone: [facility] 250 DO Work Phone: 09-07-2021 09:34-0400 Body weight 151.96 kg Modesto Chavarria Work Phone: [facility] 250 DO Work Phone: 09-07-2021 09:34-0400 Diastolic blood pressure 56 mm[Hg] Modesto Chavarria Work Phone: [facility] 250 DO Work Phone: 09-07-2021 09:34-0400 Heart rate 70 /min Modesto Chavarria Work Phone: [facility] 250 DO Work Phone: 09-07-2021 09:34-0400 Systolic blood pressure 92 mm[Hg] Modesto Chavarria Work Phone: [facility] 250 DO Work Phone: Encounters Encounter Date Encounter Type Care Provider Facility Start: 10-17-2023 End: 10-17-2023 ambulatory Modesto Chavarria Other [facility] Other Start: 10-17-2023 Office outpatient vi sit 15 minutes [facility] Start: 10-07-2023 End: 10-07-2023 ambulatory LALITO SILVA [facility] Start: 10-07-2023 End: 10-07-2023 Office outpatient visit 25 minutes Lalito Silva MD Work Phone: [facility] Comment on above: Pacemaker (Primary D x); Permanent atrial fibrillation (CMS/HCC); Mixed hyperlipidemia; Essential hypertension, benign; Complete heart block (CMS/HCC); Atherosclerosis of [place] coronary artery of [place] heart without angina pectoris Start: 09-23-2023 End: 09-23-2023 ambulatory Modesto Chavarria Other [employer] Other Start: 09-23-2023 Office outpatient vi sit 25 minutes Modesto Chavarria [facility] Start: 09-22-2023 End: 09-23-2023 ambulatory Lalito Silva Facility:[facility] Start: 07-12-2023 End: 07-12-2023 ambulatory Modesto Chavarria Other [employer] Other Start: 07-12-2023 Telephone encounter [facility] TELLO [facility] Start: 06-23-2023 End: 06-23-2023 ambulatory Modesto Chavarria Other [employer] Other Start: 06-23-2023 Office outpatient vi sit 25 minutes Modesto Chavarria [facility] Start: 06-07-2023 End: 06-07-2023 ambulatory Modesto Chavarria Other [employer] Other Start: 06-07-2023 Telephone encounter [facility] TELLO [facility] Start: 05-25-2023 End: 05-25-2023 ambulatory Modesto Chavarria Other [employer] Other Start: 05-25-2023 Telephone encounter [facility] TELLO [facility] Start: 05-23-2023 End: 05-23-2023 ambulatory Modesto Chavarria Other [employer] Other Start: 05-23-2023 Telephone encounter [facility] TELLO [facility] Start: 05-16-[address] Modesto Chavarria Facility:[id number] Start: 05-15-[address] Modesto Chavarria Facility:[id number] Start: 05-15-2023 End: 05-16-2023 [facility] Start: 05-14-2023 Evaluation and manag ement of inpatient DO Modesto Chavarria Work Phone: [facility] Work Phone: Start: 05-12-2023 End: 05-12-2023 ambulatory Modesto Chavarria Other [employer] Other Start: 05-12-2023 Initial nursing faci lity care/day 35 minutes Mod[facility] Start: 05-11-2023 End: 05-11-2023 ambulatory Modesto Chavarria Other [employer] Other Start: 05-11-2023 Telephone encounter Modesto TELLO G [facility] Start: 05-09-2023 End: 05-09-2023 ambulatory Modesto Chavarria Other [employer] Other Start: 05-09-2023 Telephone encounter Modesto TELLO G [facility] Start: 04-28-2023 End: 04-28-2023 ambulatory Modesto Chavarria Other [employer] Other Start: 04-28-2023 Telephone encounter Modesto TELLO [facility] Start: 03-24-2023 End: 03-25-[address] Modesto Chavarria Facility: Start: 03-21-2023 End: 04-20-2023 ambulatory SHAIKH Shady MCCURDY Facility:[facility]1 Start: 03-09-2023 Rx Renewal Modesto mcgill Work Phone: [facility] DO Work Phone: Start: 03-09-2023 End: 03-09-2023 ambulatory Modesto Chavarria Other [employer] Other Start: 03-09-2023 Telephone encounter Modesto TELLO G [facility] Start: 03-08-2023 Office outpatient vi sit 25 minutes Modesto Chavarria Work Phone: [facility] 250 DO Work Phone: Start: 03-08-[address] Lalito Silva II Facility: Start: 02-22-2023 Office outpatient vi sit 25 minutes Modesto Chavarria [facility] Start: 02-22-2023 Telephone encounter Modesto TELLO [facility] Start: 02-22-2023 End: 02-23-[address] MODESTO CHAVARRIA [facility] Other Start: 02-21-2023 End: 03-18-2023 ambulatory SHAIKH Shady MCCURDY Facility:[facility] Start: 01-19-2023 End: 02-18-2023 ambulatory SHAIKH Shady MCCURDY Facility:[facility] Start: 12-22-2022 End: 01-19-[address] MODESTO CHAVARRIA Facility:[facility] Start: 12-06-2022 End: 12-07-2022 ambulatory Carlos Alberto GIBSON Facility:[facility] Start: 11-22-2022 End: 12-22-[address] MODESTO CHAVARRIA Facility:[facility] Start: 11-01-2022 End: 11-02-[address] MODESTO CHAVARRIA Facility:[facility] Start: 11-01-2022 Encounter for genera l adult medical examination without abnormal findings DR MODESTO CHAVARRIA [facility] Start: 10-28-2022 Adult health examination Wade nikolay Aura Other [facility] Other Start: 10-28-2022 End: 10-29-[address] MODESTO CHAVARRIA Facility:[facility] Start: 10-28-2022 End: 10-29-2022 Encounter for general adult medical examination without abnormal findings DR MODESTO CHAVARRIA Facility:[facility] Start: 10-21-2022 End: 11-21-[address] MODESTO CHAVARRIA Facility:[facility] Start: 09-30-2022 End: 10-01-[address] Modesto Chavarria Facility: Start: 09-21-2022 End: 10-20-[address] MODESTO CHAVARRIA Facility:[facility] Start: 09-02-2022 End: 09-02-[address] MODESTO CHAVARRIA Facility:[facility] Start: 08-24-2022 End: 08-24-2022 Emergency department patient visit Domenico Nicholson Facility:[facility] Start: 08-24-2022 End: 08-24-2022 Emergency department patient visit DO Modesto Chavarria Work Phone: [facility] Start: 08-22-2022 End: 09-20-[address] MODESTO CHAVARRIA Facility:[facility] Start: 07-22-2022 End: 08-21-[address] MODESTO CHAVARRIA Facility:[facility] Start: 07-09-[address] Modesto Chavarria Facility: Start: 07-03-[address] Modesto Chavarria Facility:[id number] Start: 07-02-2022 Chart Update Modesto mcgill Work Phone: [facility] 250 DO Work Phone: Start: 07-02-[address] Lalito Silva II Facility:[id number] Start: 07-02-2022 End: 07-03-2022 Evaluation and management of inpatient Lalito Silva Facility:[facility] Start: 07-02-2022 End: 07-03-2022 Evaluation and management of inpatient DO Modesto Aura Work Phone: [facility] Start: 07-01-[address] Modesto Chavarria Facility: Start: 07-01-[address] Milo Cameron Facility: Start: 06-21-2022 End: 07-21-2022 ambulatory SHAIKH Shady MCCURDY Facility:[facility] Start: 06-15-2022 Office outpatient vi sit 25 minutes Modesto Chavarria Work Phone: [facility] 250 DO Work Phone: Start: 06-15-[address] Lalito Silva II Facility: Start: 05-21-2022 End: 06-18-2022 ambulatory SHAIKH Shady MCCURDY Facility:[facility] Start: 03-16-2022 Office outpatient vi sit 25 minutes Modesto Chavarria Work Phone: [facility] 250 DO Work Phone: Start: 01-21-2022 Chart Update Modesto mcgill Work Phone: [facility] 250 DO Work Phone: Start: 12-04-2021 Patient encounter procedure Modesto Chavarria Work Phone: [facility] 250 DO Work Phone: Start: 09-30-2021 Message Modesto mcgill Work Phone: [facility] 250 DO Work Phone: Start: 09-29-2021 Chart Update Modesto mcgill Work Phone: [facility] 250 DO Work Phone: Start: 09-18-2021 Patient encounter procedure Modesto Chavarria Work Phone: [facility] 600 DO Work Phone: Start: 09-07-2021 Rx Renewal Modesto mcgill Work Phone: [facility] 250 DO Work Phone: Start: 09-07-2021 Office outpatient vi sit 25 minutes Modesto Chavarria Work Phone: [facility] 250 DO Work Phone: Start: 09-24-2019 Encounter for other preprocedural examination Modesto Aura Other [employer] Other Start: 09-24-2019 Encounter for preprocedural cardiovascular examination Modesto Chavarria Other [employer] Other Start: 09-24-2019 Pre-procedure evalua tion check Modesto Chavarria Other [employer] Other Start: 09-24-2019 Preoperative cardiovascular examination Modesto Chavarria Other [employer] Other Start: 06-08-2017 End: 06-09-2017 Ambulatory DEFAULT PHYSICIAN Facility:[facility] Preoperative state Modesto Moore Ba ll Work Phone: [facility] 600 DO Work Phone: Procedures Date Procedure Procedure Detail Performing Clinician Start: 08-24-2022 Antibody screen Domenico Nicholson Comment on above: Result Comment: PERF ORMED BY: [facility] [place] [address] PATHOLOGIST UNDERTAKER HELPER CORAL GOLD M.D. Start: 08-24-2022 CT cervical spine wi thout contrast DO Modesto Ball Work Phone: Start: 08-24-2022 CT of head without contrast DO Modesto Ball Work Phone: Start: 08-24-2022 Plain chest X-ray DO Be njamin Ball Work Phone: Start: 07-03-2022 Plain chest X-ray DO Be njamin Ball Work Phone: Start: 07-02-2022 Plain chest X-ray DO Be njamin Ball Work Phone: Start: 07-02-2022 Implantation of card iac pacemaker DO Modesto Ball Work Phone: Start: 12-23-2015 Screening for malign ant neoplasm of colon Modesto Ball Other Start: 11-21-2005 Total colonoscopy Wade min E Ball Work Phone: Amputation of hand, thumb or finger Modesto E Ball Work Phone: Arthroplasty of knee Benjami n E Ball Work Phone: Cataract surgery Modesto E Ball Work Phone: Cystoscopy Modesto E Ball Work Phone: Dental surgical procedure Be njamin E Ball Work Phone: Depression screening Benjami n Ball Other Hemorrhoidectomy Modesto E Ball Work Phone: Insertion of pacemak er pulse generator Modesto E Ball Work Phone: Lithotripsy Modesto E Ball Work Phone: Pyloromyotomy Modesto E Bal l Work Phone: Radical orchiectomy Modesto E Ball Work Phone: Repair of cystocele Modesto E Ball Work Phone: Repair of shoulder Modesto E Ball Work Phone: Repair of umbilical hernia B enjamin E Ball Work Phone: SARS Antigen (LFIA) DO Wade min Ball Work Phone: SARS Antigen (LFIA) DO Wade min Ball Work Phone: Screening for malign ant neoplasm of prostate Modesto Ball Other Plan of Treatment Date Care Activity Detail Author Start: 08-24-2032 DTaP/Tdap/Td Vaccines (5 - Td or Tdap) DTaP/Tdap/Td Vaccines (5 - Td or Tdap) [facility] Start: 04-20-2024 End: 04-20-2024 Patient encounter procedure 04/20/2024 2:40 PM EDT Office Visit [facility] [address] [facility] [address] [place] [id number] Lalito Silva MD [address] [facility] [address] [place] [address] [facility] Start: 12-09-2023 ambulatory Ambulatory Facility:[facility] Start: 10-29-2023 Medicare Annual Wellness Visit Medicare Annual Wellness Visit (AWV) [facility] Start: 10-07-2023 FUV, Provider: Lailto Silva, Status: Pen, Time: 2:50 PM FUV, Provider: Lalito Silva, Status: Pen, Time: 2:50 PM [facility] 250 DO Work Phone: Start: 07-22-2023 Influenza vaccination Influenza Vaccine (#1) [facility] Start: 05-27-2023 [facility] Start: 05-26-2023 [facility] Start: 05-25-2023 [facility] Start: 05-24-2023 [facility] Start: 05-23-2023 [facility] Start: 05-22-2023 [facility] Start: 05-21-2023 [facility] Start: 05-20-2023 [facility] Start: 05-19-2023 [facility] Start: 05-18-2023 [facility] Start: 05-17-2023 [facility] Start: 05-16-2023 [facility] Start: 05-15-2023 [facility] Start: 05-14-2023 Referral to field representative/health education [facility] Start: 05-14-2023 Physical therapy procedure [facility] Start: 05-14-2023 Referral to occupational therapist [facility] Start: 05-14-2023 Hospital admission [facility] Start: 05-14-2023 End: 05-14-2023 [facility] Start: 05-14-2023 CT cervical spine without contrast CT cervical spine wo con [facility] Start: 05-14-2023 CT Cervical spine WO contrast [facility] Start: 05-14-2023 CT of head without contrast CT head/brain wo con [facility] Start: 05-14-2023 CT Unspecified body region WO contrast [facility] Start: 05-14-2023 CT Chest WO contrast [facility] Start: 05-14-2023 CT of chest without contrast CT chest wo con [facility] Start: 03-08-2023 FUV, Provider: Lalito Silva, Status: Pen, Time: 9:10 AM FUV, Provider: Lalito Silva, Status: Pen, Time: 9:[address] [facility] 250 DO Work Phone: Start: 10-17-2022 COVID-19 Vaccine (5 - Pfizer series) COVID-19 Vaccine (5 - Pfizer series) [facility] Start: 08-24-2022 [facility] Start: 07-09-2022 CRISTOFER, Provider: LINDA TRACY CAFETERIA ASSISTANT 1,[id number], Status: Pen, Time: 9:30 AM CRISTOFER, Provider: LINDA TRACY CAFETERIA ASSISTANT 1,[id number], Status: Pen, Time: 9:30 AM -[facility] 250 DO Work Phone: Start: 07-03-2022 [facility] Start: 07-02-2022 End: 07-02-2022 [facility] Start: 07-02-2022 Insertion of Pacemaker Lead into Right Ventricle, Percutaneous Approach Insertion of Pacemaker Lead into Right Ventricle, Percutaneous Approach [facility] Start: 07-02-2022 Insertion of Pacemaker, Single Chamber into Chest Subcutaneous Tissue and Fascia, Percutaneous Approach Insertion of Pacemaker, Single Chamber into Chest Subcutaneous Tissue and Fascia, Percutaneous Approach [facility] Start: 06-15-2022 FUV, Provider: Lalito Silva, Status: Pen, Time: 11:30 AM FUV, Provider: Lalito Silva, Status: Pen, Time: 11:30 AM [facility] 250 DO Work Phone: Start: 03-16-2022 FUV, Provider: Lalito Silva, Status: Pen, Time: 8:40 AM FUV, Provider: Lalito Silva, Status: Pen, Time: 8:40 AM -[facility] 250 DO Work Phone: Start: 02-09-2022 Glaucoma screening Diabetes: Retinopathy Screening [facility] Start: 09-22-2021 [facility], Provider: Naeem Ronquillo, Status: Pen, Time: 1:00 PM [facility], Provider: Naeem Ronquillo, Status: Pen, Time: 1:00 PM [facility] 600 DO Work Phone: Start: 11-21-2017 Pneumococcal Vaccine: 65+ Years (2 - PCV) Pneumococcal Vaccine: 65+ Years (2 - PCV) [facility] Start: 1995 Zoster Vaccines (1 of 2) Zoster Vaccines (1 of 2) [facility] Start: 1964 Urine screening for protein Diabetes: Urine Protein Screening [facility] Start: 1963 Hepatitis C screening Hepatitis C Screening [facility] Start: 1955 Diabetic foot examination Diabetes: Foot Exam [facility] Start: 1945 Hemoglobin A1c measurement Diabetes: Hemoglobin A1C [facility] Start: 1945 Lipid panel Lipid Panel [facility] Albumin/Globulin ratio [facility] Anion gap measurement [facility] Basophils [#/volume] in Blood by Automated count [facility] Basophils/100 leukoc ytes in Blood by Automated count [facility] Eosinophils [#/volum e] in Blood [facility] Eosinophils/100 leukocytes in Blood by Automated count [facility] Erythrocyte distribu tion width [Ratio] by Automated count [facility] Erythrocytes [#/volu me] in Blood [facility] Globulin [Mass/volum e] in Serum [facility] Hematocrit [Volume Fraction] of Blood [facility] Hemoglobin [Mass/vol ume] in Blood [facility] Leukocytes [#/volume ] corrected for nucleated erythrocytes in Blood by Automated coun [facility] Leukocytes [#/volume ] in Blood [facility] Lymphocytes [#/volum e] in Blood by Automated count [facility] Lymphocytes/100 leukocytes in Blood by Automated count [facility] MCH [Entitic mass] b y Automated count [facility] MCHC [Mass/volume] b y Automated count [facility] MCV [Entitic volume] by Automated count [facility] Monocytes [#/volume] in Blood by Automated count [facility] Monocytes/100 leukoc ytes in Blood by Automated count [facility] Neutrophils [#/volum e] in Blood by Automated count [facility] Neutrophils/100 leukocytes in Blood by Automated count [facility] Nucleated erythrocyt es [Presence] in Blood by Automated count [facility] Patient Education Concussion, Ad ult (DC) Laceration Repair With Stitches (DC) [facility] Work Phone: Patient referral [facility] Work Phone: Platelet mean volume [Entitic volume] in Blood by Automated count [facility] Platelets [#/volume] in Blood [facility] SARS-CoV-2 (COVID-19 ) N gene [Presence] in Respiratory specimen by NA with probe detection [facility] Work Phone: Immunizations Immunization Date Immunization Notes Care Provider Carla mccarthy 09-23-2023 influenza, high dose seasonal, preservative-free Modesto Chavarria Other [employer] Other 08-24-2022 tetanus toxoid, redu siri diphtheria toxoid, and acellular pertussis vaccine, adsorbed DO Modesto Chavarria Work Phone: [facility] 08-22-2022 COVID-19 Vaccine Pfi zer - Documentation Purposes Only Modesto Chavarria Other [employer] Other 08-22-2022 diphtheria, tetanus toxoids and acellular pertussis vaccine, unspecified formulation Modesto Chavarria Other [employer] Other 08-22-2022 Fluzone High-Dose Quadrivalent 0.7 ML Intramuscular Suspension Prefilled Syringe Modesto Oscar Chavarria Work Phone: [facility] 250 DO Work Phone: 08-22-2022 influenza virus vaccine, split virus (incl. purified surface antigen) Modesto Chavarria Other [employer] Other 08-22-2022 influenza, high dose seasonal, preservative-free Lalito Silva MD Work Phone: [facility] Work Phone: 08-22-2022 Pfizer COVID-19 Vac Bivalent 30 MCG/0.3ML Intramuscular Suspension Modesto Chavarria Work Phone: [facility] 250 DO Work Phone: 08-22-2022 influenza virus vaccine, unspecified formulation Lalito Silva MD Work Phone: [facility] Work Phone: 02-02-2022 diphtheria, tetanus toxoids and pertussis vaccine Modesto Chavarria Work Phone: [facility] 02-02-2022 tetanus toxoid, redu siri diphtheria toxoid, and acellular pertussis vaccine, adsorbed Lalito Silva MD Work Phone: [facility] Work Phone: 08-26-2021 Pfizer-BioNTech COVID-19 Vacc 30 MCG/0.3ML Intramuscular Suspension Modesto Chavarria Work Phone: [facility] DO Work Phone: 08-21-2021 influenza virus vaccine, split virus (incl. purified surface antigen) Modesto Chavarria Other [employer] Other 08-07-2021 influenza virus vaccine, unspecified formulation Lalito Silva MD Work Phone: [facility] Work Phone: 08-07-2021 influenza, injectabl e, quadrivalent, contains preservative Modesto Oscar Aura Work Phone: [facility] DO Work Phone: Comment on above: Series: 01-12-2021 Pfizer-BioNTech COVID-19 Vacc 30 MCG/0.3ML Intramuscular Suspension Modesto Chavarria Work Phone: [facility] [employer] 250 DO Work Phone: 12-22-2020 Pfizer-BioNTech COVID-19 Vacc 30 MCG/0.3ML Intramuscular Suspension Modesto Chavarria Work Phone: [facility] [employer] 250 DO Work Phone: 07-29-2020 influenza virus vaccine, split virus (incl. purified surface antigen) Modesto Chavarria Other [employer] Other 07-22-2020 influenza, seasonal, injectable Modesto Moore Aura Work Phone: [facility] [employer] 250 DO Work Phone: 09-14-2019 influenza virus vaccine, split virus (incl. purified surface antigen) Modesto Chavarria Other [facility] [employer] Other 08-21-2019 influenza virus vaccine, unspecified formulation Modesto Chavarria Work Phone: [facility] [employer] [facility] DO Work Phone: 04-29-2019 tetanus toxoid, redu siri diphtheria toxoid, and acellular pertussis vaccine, adsorbed Lalito Silva MD Work Phone: [facility] Work Phone: 04-28-2019 diphtheria, tetanus toxoids and acellular pertussis vaccine, unspecified formulation Modesto Chavarria Other [employer] Other 08-21-2018 influenza virus vaccine, unspecified formulation Modesto Oscar Aura [facility] DO Work Phone: 08-10-2018 influenza virus vaccine, split virus (incl. purified surface antigen) Modesto Chavarria Other [employer] Other 08-10-2018 Seasonal trivalent influenza vaccine, adjuvanted, preservative free Modesto Moore Aura Work Phone: [place] [address] DO Work Phone: 08-09-2017 influenza virus vaccine, split virus (incl. purified surface antigen) Modesto Chavarria Other [facility] [employer] Other 08-09-2017 influenza, high dose seasonal, preservative-free Modesto Moore Aura Work Phone: [facility] DO Work Phone: 11-21-2016 influenza virus vaccine, unspecified formulation Modesto Chavarria Work Phone[facility] [address] [facility] Work Phone: 11-21-2016 pneumococcal polysaccharide vaccine, 23 valent Modesto Chavarria Work Phone: [facility] 250 DO Work Phone: 08-05-2016 influenza virus vaccine, split virus (incl. purified surface antigen) Modesto Chavarria Other [employer] Other 08-05-2016 pneumococcal conjuga te vaccine, 13 valent Modesto Chavarria Other [employer] Other 08-15-2014 tetanus and diphther ia toxoids, adsorbed, preservative free, for adult use (5 Lf of tetanus toxoid and 2 Lf of diphtheria toxoid) Modesto Aura Other [employer] Other 12-11-2013 pneumococcal polysaccharide vaccine, 23 valent Modesto Chavarria Other [employer] Other 08-01-2013 tetanus and diphther ia toxoids, adsorbed, preservative free, for adult use (5 Lf of tetanus toxoid and 2 Lf of diphtheria toxoid) Modesto Chavarria Other [employer] Other Payers Date Payer Category Payer Self-pay [id number] 2008 Medicare [id number] 1959 Medicare [id number] 1959 Unknown [id number] 1945 Unknown [id number] 2.16.84 0.1.704342.3.579.2.593 1945 Unknown [id number] 2.16.84 0.1.222867.3.579.2.593 1945 Unknown [id number] 2.16.84 0.1.813057.3.579.2.593 1945 Unknown [id number] 2.16.84 0.1.366032.3.579.2.593 1945 Unknown [id number] 2.16.84 0.1.717477.3.579.2.593 1945 Unknown [id number] 2.16.84 0.1.126426.3.579.2.593 1945 Unknown [id number] 2.16.84 0.1.237520.3.579.2.593 1945 Unknown [id number] 2.16.84 0.1.486642.3.579.2.593 1945 Unknown [id number] 2.16.84 0.1.725102.3.579.2.593 1945 Unknown [id number] 2.16.84 0.1.731823.3.579.2.593 1945 Unknown [id number] 2.16.84 0.1.762469.3.579.2.593 1945 Unknown [id number] 2.16.84 0.1.361617.3.579.2.593 1945 Unknown [id number] 2.16.84 0.1.542277.3.579.2.593 1945 Unknown [id number] 2.16.84 0.1.832182.3.579.2.593 1945 Unknown [id number] 2.16.84 0.1.379834.3.579.2.593 1945 Unknown [id number] 2.16.84 0.1.974604.3.579.2.593 1945 Unknown [id number] 2.16.84 0.1.983432.3.579.2.593 1945 Unknown [id number] 2.16. 840.1.595634.3.579.2.356 1945 Unknown [id number] 2.16. 840.1.380069.3.579.2.356 1945 Unknown [id number] 2.16. 840.1.798274.3.579.2.356 1945 Unknown [id number] 2.16. 840.1.367757.3.579.2.356 1945 Unknown [id number] 2.16. 840.1.178159.3.579.2.356 1945 Unknown [id number] 2.16. 840.1.785643.3.579.2.356 1945 Unknown [id number] 2.16. 840.1.292698.3.579.2.356 1945 Unknown [id number] 2.16. 840.1.401151.3.579.2.356 1945 Unknown [id number] 2.16. 840.1.348216.3.579.2.356 1945 Unknown [id number] 2.16. 840.1.614947.3.579.2.356 1945 Unknown [id number] 2.16. 840.1.867246.3.579.2.356 1945 Unknown [id number] 2.16. 840.1.767078.3.579.2.356 1945 Unknown [id number] 2.16. 840.1.527820.3.579.2.356 1945 Unknown [id number] 2.16.8 40.1.997977.3.579.2.727 1945 Unknown [id number] 2.16.8 40.1.310705.3.579.2.727 1945 Unknown [id number] 2.16.8 40.1.208618.3.579.2.727 1945 Unknown [id number] 2.16.8 40.1.715293.3.579.2.727 1945 Unknown [id number] 2.16.8 40.1.621137.3.579.2.727 1945 Unknown [id number] 2.16.8 40.1.337434.3.579.2.1244 Unknown Unknown [facility] Health Claims [id number] Unknown [id number] 2.16.8 40.1.906880.3.579.2.531 Unknown [id number] 2.16.8 40.1.225804.3.579.2.531 Unknown [id number] 2.16.8 40.1.557589.3.579.2.531 Unknown [id number] Social History Date Type Detail Facility Start: 10-06-2023 No illicit drug use No illicit drug use [facility] 250 DO Work Phone: Comment on above: QUIT 1996; Start: 07-02-2022 End: 10-06-2023 Tobacco smoking status RUST Ex-smoker (finding) [facility] Start: 1945 Sex Assigned At Male [facility] Start: 08-24-2022 Tobacco smoking status RUST Tobacco smoking consumption unknown (finding) [facility] Start: 10-06-2023 Sex Assigned At VEASYT [facility] [employer] Other History of tobacco use Current smoker [facility] Work Phone: History of tobacco use Cigarette Smoker [facility] Work Phone: Start: 10-07-2023 Alcohol intake Current drinke r of alcohol (finding) [facility] Work Phone: Start: 10-06-2023 Alcohol Comment occasional [facility] Work Phone: Start: 1945 Sex Assigned At Not on file [facility] Work Phone: Start: 09-27-2023 End: 10-07-2023 Exposure to SARS-CoV-2 (event) Not sure [facility] Medical Equipment Procedure Code Equipment Code Equipment Origin al Text Equipment Identifier Dates Insertion, pacemaker Endocardial pacing lead [id number] FDA Start: 07-02-2022 Insertion, pacemaker Single-chamber implantable pacemaker, rate-responsive [id number] FDA Start: 07-02-2022 Goals Date Patient Goal Desired Activity /State Functional Status Date Assessment Result Facility 07-03-2022 Functional status 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 They are instructed to continue exercise and AHA diet plan. Continue secondary prevention measures. Sep, Stage 3a chronic kidney disease (ICD-10 - N18.31) The patient is instructed on adequate control of hypertension and diabetes, if appropriate. They are also educated on the associated risks of NSAIDs and PPI use with kidney disease. They were instructed on adequate fluid balance and to avoid dehydration. Sep, Type 2 diabetes mellitus with hyperglycemi a, without long-term current use of insulin (ICD-10 - E11.65) This patient is following a comprehensive diabetic treatment plan. They are checking their feet daily for calluses and nonhealing ulcers. They are being seen for yearly dilated eye examinations. Goals: SBP less than 130, LDL less than 100, FBS less than 140, A1C less than 7%. They are checking their BS daily, will which are reviewed at the office visit. Continue regular routine monitoring of A1C,] Microalbumin, Dilated eye exam and Foot exam Initiated GLP-1 and plan to stop Metformin in future [employer] Other 11-27-2023 Evaluation note* Encounter Date Diagnosis Assessment Notes Treatment Notes Treatment Clinical Notes Sep, ASHD (arteriosclerotic heart disease) (ICD-10 - I25.10) This patient is stable without activity related CP, dyspnea or lightheadedness. They are instructed to continue exercise and AHA diet plan. Continue secondary prevention measures. Sep, Stage 3a chronic kidney disease (ICD-10 - N18.31) The patient is instructed on adequate control of hypertension and diabetes, if appropriate. They are also educated on the associated risks of NSAIDs and PPI use with kidney disease. They were instructed on adequate fluid balance and to avoid dehydration. Sep, Type 2 diabetes mellitus with hyperglycemia, without long-term current use of insulin (ICD-10 - E11.65) This patient is following a comprehensive diabetic treatment plan. They are checking their feet daily for calluses and nonhealing ulcers. They are being seen for yearly dilated eye examinations. Goals: SBP less than 130, LDL less than 100, FBS less than 140, A1C less than 7%. They are checking their BS daily, will which are reviewed at the office visit. Continue regular routine monitoring of A1C,] Microalbumin, Dilated eye exam and Foot exam Initiated GLP-1 and plan to stop Metformin in future Sep, Morbid (severe) obesity due to excess calories (ICD-10 - E66.01) This patient has been instructed on a low-fat, high-fiber diet. They are instructed to reduce calories, portion sizes and snacks. It is recommended that they exercise for 30 minutes, 3-5 times weekly. Use of GLP-1 w/ diabetes will have dual benefit in weight loss Sep, Body mass index [BMI] 50.0-59.9, adult (ICD-10 - Z68.43) [employer] Other 11-17-2023 History of Present illness Narrative* Lalito Silva MD - 10/07/2023 2:50 PM EST Subjective Nirmal Chaidez is a 78 y.o. male Chief Complaint Follow-up HPI Patient returns in follow-up of problems as noted. He is done relatively well. He denies orthopnea PND. He has chronic dyspnea with exertion but it is multifactorial we do not believe is on the basisof heart failure. He and his acknowledge significant improvement in his condition ever since pacemaker implant. He has chronic atrial fibrillation and the risk of stroke is mitigated with chronic anticoagulant therapy. His coronary disease is asymptomatic and detailed questioning elicits no complaints or symptomatology. The merits of weight loss were advocated. I encouraged him to discuss the matter with his PCP. Review of Systems All other systems reviewed and are negative. Visit Vitals BP 118/78 (BP Location: Right arm, Patient Position: Sitting) Pulse 80 Ht 1.651 m (5' 5 ) Wt 143 kg (315 lb) BMI 52.42 kg/m Smoking Status Former BSA 2.56 m Objective Physical Exam Constitutional: Appearance: Normal appearance. He is normal weight. HENT: Nose: Nose normal. Neck: Vascular: No carotid bruit. Cardiovascular: Rate and Rhythm: Normal rate. Pulses: Normal pulses. Heart sounds: Normal heart sounds. Pulmonary: Effort: Pulmonary effort is normal. Abdominal: General: Bowel sounds are normal. Palpations: Abdomen is soft. Genitourinary: Rectum: Normal. Musculoskeletal: General: Normal range of motion. Cervical back: Normal range of motion. Right lower leg: No edema. Left lower leg: No edema. Skin: General: Skin is warm and dry. Neurological: General: No focal deficit present. Mental Status: He is alert. Psychiatric: Mood and Affect: Mood normal. Behavior: Behavior normal. Thought Content: Thought content normal. Judgment: Judgment normal. Current Medications Current Outpatient Medications: allopurinol (Zyloprim) 300 mg tablet, Take 1 tablet (300 mg) by mouth once daily., Disp: , Rfl: citalopram (CeleXA) 20 mg tablet, Take 1 tablet (20 mg) by mouth once daily., Disp: , Rfl: lisinopriL-hydrochlorothiazide 10-12.5 mg tablet, Take 1 tablet by mouth 2 times a day., Disp: , Rfl: metFORMIN (Glucophage) 500 mg tablet, Take 1 tablet (500 mg) by mouth once daily with a meal., Disp: , Rfl: nitroglycerin (Nitrostat) 0.4 mg SL tablet, Place 1 tablet (0.4 mg) under the tongue every 5 minutes if needed for chest pain., Disp: , Rfl: potassium bicarbonate (K-Lyte) 25 mEq effervescent tablet, Take 1 tablet (25 mEq) by mouth 2 times a day., Disp: , Rfl: pravastatin (Pravachol) 40 mg tablet, Take 1 tablet (40 mg) by mouth once daily., Disp: , Rfl: torsemide (Demadex) 10 mg tablet, Take 1 tablet (10 mg) by mouth once daily., Disp: , Rfl: warfarin (Coumadin) 4 mg tablet, Take 1 tablet (4 mg) by mouth. Take one tablet by mouth as directed by [facility], Disp: , Rfl: Assessment/Plan 1. Pacemaker Satisfactory device checks demonstrating greater than 10-year battery life 2. Permanent atrial fibrillation (CMS/HCC) Treated with rate control and antithrombotic therapy. Stable 3. Mixed hyperlipidemia Well-controlled on current therapy 4. Essential hypertension, benign Well-controlled on current therapy 5. Complete heart block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 N18.31) The patient is instructed on adequate control of hypertension and diabetes, if appropriate. They are also educated on the associated risks of NSAIDs and PPI use with kidney disease. They were instructed on adequate fluid balance and to avoid dehydration. Feb, Permanent atrial fibrillation (ICD-10 - I48.21) This patient is in NSR or rate controlled. This patient is anticoagulated to prevent thromboembolic events. They are maintaining regular scheduled appts with their field representative/health education. Feb, Primary hypertension (ICD-10 - I10) This patient is instructed to consume a healthy, low-fat, low-salt diet. They are also encouraged to continue exercise to achieve/maintain a normal BMI. Feb, Chronic venous insufficiency (ICD-10 - I87.2) Avoid salt and elevate lower extremities, support stockings, inspect legs and feet daily for blisters and ulcerations. Feb, Elevated cholesterol (ICD-10 - E78.00) Diet and exercise with continued statin therapy. Feb, Hypertensive chronic kidney disease with stage 1 through stage 4 chronic kidney disease, or unspecified chronic kidney disease (ICD-10 - I12.9) The patient is instructed on adequate control of hypertension and diabetes, if appropriate. They are also educated on the associated risks of NSAIDs and PPI use with kidney disease. They were instructed on adequate fluid balance and to avoid dehydration. Feb, Complete heart block (ICD-10 - I44.2) Feb, QUETA (obstructive sleep apnea) (ICD-10 - G47.33) This patient is aware of the benefits associated with QUETA: With continued use, the patient reduces the risk for OH, CVA, HTN, cardiac dysrhythmias and sudden cardiac deaths.The patient is also aware of the association between QUETA and morning headaches, daytime somnolence, fatigue and obesity, which also has been improved with continued use.The patient is compliant with treatment, wearing the equipment every night for greater than 4 hours.The patient is instructed to continue use of the CPAP for QUETA treatment. Feb, NESS (generalized anxiety disorder) (ICD-10 - F41.1) [employer] Other 04-04-2023 Evaluation note* Encounter Date Diagnosis Assessment Notes Treatment Notes Treatment Clinical Notes Feb, Type 2 diabetes mellitus with hyperglycemia, without long-term current use of insulin (ICD-10 - E11.65) [employer] Other Discharge summary Author Milo Cameron [facility] July 03, 2022 4:59pm Note Date/Time July 03, 2022 4: 59pm [facility] [address] [place], [place] [id number] Discharge Summary Signed Patient: Nirmal Chaidez MR#: [id number] : 1945 Acct:[id number] Age/Sex: 76 / M Adm Date: 2 Loc: Room: [address] [place] [address]: Lalito Silva MD Copies to: DO Milo Matos MD, [facility] Lalito Silva MD~ Providers Date of Discharge: 07/03/22 Discharging Provider: Milo Cameron Primary Care Provider: Modesto Chavarria Discharge Diagnosis Final Diagnosis Final Discharge Diagnosis: Syncope Permanent atrial fibrillation Bradycardia Status post successful pacemaker insertion Summary Hospital Course Hospital course: Patient was transferred from [facility] to have a permanent pacemaker placed due to syncope caused by bradycardia. He underwent successful placement of ventricular pacemaker by Dr. Silva with no complications. Pacemaker check the following day by the rep from the manufacture showed normal pacemaker function. Chest x-ray revealed no pneumothorax. Patient was discharged home in stable condition Status at Discharge Functional status at discharge: independent ambulation Time Spent with Patient Time spent providing/coordinating discharge services (# min): 20 Specific discharge activities: Provided to the patient with restricted activity of the left upper extremity 4-week Surgeries and Procedures Operation Date: 07/02/22 17:00 Actual Procedures p OR Pacemaker Insertion(Not Applicable) - Lalito Silva MD Complications Complications: None Exam Physical Exam Vital Signs: Temp Pulse Resp BP Pulse Ox O2 Del Method O2 Flow Rate 97.9 F 90 18 130/81 97 Room Air 8 07/02/22 19:55 07/03/22 07:42 07/03/22 07:42 07/03/22 07:42 07/03/22 07:42 07/03/22 08:00 07/02/22 18:56 Discharge Plan Discharge Plan Patient Disposition: Home Additional Instructions: DISCHARGE INSTRUCTIONS FOR PERMANENT PACEMAKER AND IMPLANTABLE CARDIOVERTER DEFIBRILLATOR (ICD) INSTRUCTIONS 1. Incision should be kept clean and dry. Please notify us if the site becomesred, swollen, develops drainage, or if you begin having a fever or chills beforeyour 1 week appointment. 2. May shower- avoid running water directly on your incision. 3. Do NOT stop antibiotics. If you have problems with them, please call. 4. Call with any symptoms of dizziness, lightheadedness, or passing out. 5. You may use the involved arm but you must avoid reaching backwards with the involved arm for [address] weeks[address] 6[address] to place your pacemaker/ICD implant card in your wallet/purse to carry with you at all times. You will receive this card in 6-8 weeks by mail. 7. You may resume driving in 2 weeks. 8. Continue all your home medications and the prescribed antibiotics per the medication reconciliation form. APPOINTMENT: 1. Office visit with nurse for incision check in the [facility] Office on 07/09/2022 at 9:30am. 2. Chest x-ray to be done the same day as your device check in [facility]. 3. Pacemaker/ICD clinic appointment at [facility] in 15 weeks- they will call you. 4. Office visit with Dr. Silva in the [place] Office in 15 weeks- we will call you with appointment. [] Prescriptions: New clindamycin HCl 300 mg capsule 600 mg PO TID 2 Days Qty: 12 0RF Continued amiodarone 200 mg Tablet 200 mg PO BID aspirin 81 mg Tablet,Delayed Release (Dr/Ec) 81 mg PO DAILY citalopram 20 mg Tablet 20 mg PO DAILY tamsulosin 0.4 mg Capsule 0.4 mg PO DAILY nitroglycerin 0.4 mg Tablet, Sublingual 0.4 mg SUBLINGUAL Q5-15M PRN (Reason: Chest Pain) Effer-K 20 mEq Tablet, Effervescent 20 meq PO DIRECTED lisinopril-hydrochlorothiazide 10-12.5 mg Tablet 1 tab PO DAILY potassium bicarbonate 50 mEq Tablet, Effervescent 25 ea PO 2XD lisinopril-hydrochlorothiazide 20-12.5 mg Tablet 2 tab PO DAILY pravastatin 40 mg Tablet 40 mg PO DAILY warfarin 2 mg Tablet 4 mg PO DIRECTED Label Comments: Take as directed by [facility] allopurinol 300 mg Tablet 300 mg PO DAILY hydrocodone-acetaminophen 5-325 mg tablet 1 - 2 tab PO Q4-6H PRN (Reason: pain) 3 Days Qty: 14 0RF Documented By: Milo Cameron MD, [facility] 2 1656 Signed By: <Electronically signed by MD PATRICK Cameron> 07/03/22 1659 [facility] Work Phone: Evaluation noteNo assessment information available [facility] Work Phone: Evaluation noteNo InformationNortEncompass Health [facility] [employer] Other Evaluation note* Diagnosis Onset Date Resolution Status Acute head injury acute Fall acute Syncope acute [facility] Work Phone: Evaluation note* Diagnosis Pacemaker- Primary Cardiac pacemaker in situ Permanent atrial fibrillation (CMS/HCC) Atrial fibrillation Mixed hyperlipidemia Essential hypertension, benign Complete heart block (CMS/HCC) Atrioventricular block, complete Atherosclerosis of [place] coronary artery of [place] heart without angina pectoris documented in this encounter [facility] Work Phone: Hisnoqt general Narrative - Reported* Type Description Date Medical History Diabetes Medical History Hypertension Medical History High Cholesterol Surgical History lithrotripsy Surgical History heart stent 2017 Surgical History bilateral knee replacement Surgical History cartioversion 2018 Surgical History kidney stone blasted 2018 Hospitalization History kidney stones and septic 2017 Hospitalization History see above [employer] Other History general Narrative - Reported* Type Description Date Medical History Diabetes Medical History Hypertension Medical History High Cholesterol Medical History QUETA Surgical History lithrotripsy Surgical History heart stent 2017 Surgical History bilateral knee replacement Surgical History cartioversion 2018 Surgical History kidney stone blasted 2018 Hospitalization History kidney stones and septic 2017 Hospitalization History see above [employer] Other History of Present illness Narrative* Patient returns in follow-up of problems as noted. In the interim he is felt about the same. Unfortunately his exam demonstrates irregular rhythm and EKG demonstrates atrial fibrillation. Because of this we conclude that maintenance of sinus rhythm with intermediate to large dose amiodarone is unlikely and I recommend cessation of this agent and the other amiodarone testing. The reason and rationale for this was explained in great detail and explained the risk- benefit ratio of this particular medication is not favorable because is not maintaining rhythm. Because of this we will transition to rate control with antithrombotic therapy. * Blood pressure and lipids, though, appear to be adequately managed as is diabetes. As always his body mass index is significantly elevated and the merits of diet and weight loss as well as increased activity were discussed. * In regards to increase activity he is having difficulty. He has had about 4 falls in the last 3 months. He is now in physical therapy to strengthen his legs and work on gait training and I endorsed and supported this decision to participate in therapy. He and his are educated regarding other cardiac signs and symptoms to watch for and he has no angina or anginal equivalent symptomatology because of all the above we will proceed as noted. [facility] [employer] DO Work Phone: History of Present illness NarrativePatient returns in follow-up of problems as noted. Is doing well. He denies any angina or anginal equivalent symptomatology. Management of his hypertension diabetes and hyperlipidemia is reviewed andfelt to be adequate and appropriate. He is tolerating his permanent atrial fibrillation as well as anticoagulant therapy to mitigate stroke risk and because of all the above we suggest no changes. The merits of diet and weight loss were discussed in detail.[facility] [employer] DO Work Phone: History of Present illness Narrative* Patient reports feel good from cardiac standpoint.. Mows lawn with riding mower * Patient returns in follow-up of problems as noted. In the interim he is done well. Recent pacemakerchecks demonstrate satisfactory device performance and no malignant arrhythmias. He has chronic atrial fibrillation is well controlled with the pacemaker and antithrombotic therapy * In regards to his history of coronary disease he denies any anginal symptomatology. Treatment of risk factors for coronary atherosclerosis including hypertension diabetes and hyperlipidemia is reviewed and control is adequate and appropriate in light of all the above we recommend no change. [facility] DO Work Phone: Hospital Discharge instructions Additional Instructions DISCHARGE INSTRUCTIONS FOR PERMANENT PACEMAKER AND IMPLANTABLE CARDIOVERTER DEFIBRILLATOR (ICD) INSTRUCTIONS 1. Incision should be kept clean and dry. Please notify us if the site becomes red, swollen, develops drainage, or if you begin having a fever or chills before your 1 week appointment. 2. May shower- avoid running water directly on your incision. 3. Do NOT stop antibiotics. If you have problems with them, please call. 4. Call with any symptoms of dizziness, lightheadedness, or passing out. 5. You may use the involved arm but you must avoid reaching backwards with the involved arm for 6 weeks[address] 6[address] to place your pacemaker/ICD implant card in your wallet/purse to carry with you at all times. You will receive this card in 6-8 weeks by mail. 7. You may resume driving in 2 weeks. 8. Continue all your home medications and the prescribed antibiotics per the medication reconciliation form. APPOINTMENT: 1. Office visit with nurse for incision check in the [facility] Office on 07/09/2022 at 9:30am. 2. Chest x-ray to be done the same day as your device check in [facility]. 3. Pacemaker/ICD clinic appointment at [facility] in 15 weeks- they will call you. 4. Office visit with Dr. Silva in the [place] Office in 15 weeks- we will call you with appointment. [][facility] Work Phone: Hospital Discharge instructions Additional Instructions Keep your laceration clean with soap and water daily. Apply antibiotic ointment once daily. Follow-up with PCP for suture removal in 7 days.[facility] Work Phone: Reason for referral (narrative)* Consultation (Routine) - Authorized Specialty Diagnoses / Procedures Referred By Contac t Referred To Contact Cardiology Diagnoses Pacemaker Permanent atrial fibrillation (CMS/HCC) Essential hypertension, benign Complete heart block (CMS/HCC) Procedures Follow Up In Cardiology Lalito Silva MD [address] [place] [address], [address] [address] Lalito Silva MD [address] [place] [address] 2, [address] [address] Referral ID Status Reason Start Date Expiration Date V isits Requested Visits Authorized [id number] Authorized 10/07/2023 10/06/2024 1 1 [facility] Work Phone: Summary Purpose Family History Unknown Family Member Name Dates Details FH: CABG (coronary artery by pass surgery): Mother(V17.3, Z82.49) Status:Active Family history of congestive heart failure: Mother(V17.49, Z82.49) Status:Active Family history of diabetes m ellitus: Mother, Father(V18.0, Z83.3) Status:Active Family history of lymphoma: Father(V16.7, Z80.7) Status:Active Unknown Family Member Name Dates Details FH: CABG (coronary artery by pass surgery): Mother(V17.3, Z82.49) Status:Active Family history of congestive heart failure: Mother(V17.49, Z82.49) Status:Active Family history of diabetes m ellitus: Mother, Father(V18.0, Z83.3) Status:Active Family history of lymphoma: Father(V16.7, Z80.7) Status:Active Unknown Family Member Name Dates Details FH: CABG (coronary artery by pass surgery): Mother(V17.3, Z82.49) Status:Active Family history of congestive heart failure: Mother(V17.49, Z82.49) Status:Active Family history of diabetes m ellitus: Mother, Father(V18.0, Z83.3) Status:Active Family history of lymphoma: Father(V16.7, Z80.7) Status:Active Unknown Family Member Name Dates Details FH: CABG (coronary artery by pass surgery): Mother(V17.3, Z82.49) Status:Active Family history of congestive heart failure: Mother(V17.49, Z82.49) Status:Active Family history of diabetes m ellitus: Mother, Father(V18.0, Z83.3) Status:Active Family history of lymphoma: Father(V16.7, Z80.7) Status:Active Unknown Family Member Name Dates Details FH: CABG (coronary artery by pass surgery): Mother(V17.3, Z82.49) Status:Active Family history of congestive heart failure: Mother(V17.49, Z82.49) Status:Active Family history of diabetes m ellitus: Mother, Father(V18.0, Z83.3) Status:Active Family history of lymphoma: Father(V16.7, Z80.7) Status:Active Unknown Family Member Name Dates Details FH: CABG (coronary artery by pass surgery): Mother(V17.3, Z82.49) Status:Active Family history of congestive heart failure: Mother(V17.49, Z82.49) Status:Active Family history of diabetes m ellitus: Mother, Father(V18.0, Z83.3) Status:Active Family history of lymphoma: Father(V16.7, Z80.7) Status:Active Unknown Family Member Name Dates Details Family history of lymphoma: Father(V16.7, Z80.7) Status:Active Family history of diabetes m ellitus: Mother, Father(V18.0, Z83.3) Status:Active Family history of congestive heart failure: Mother(V17.49, Z82.49) Status:Active FH: CABG (coronary artery by pass surgery): Mother(V17.3, Z82.49) Status:Active Unknown Family Member Name Dates Details FH: CABG (coronary artery by pass surgery): Mother(V17.3, Z82.49) Status:Active Family history of congestive heart failure: Mother(V17.49, Z82.49) Status:Active Family history of diabetes m ellitus: Mother, Father(V18.0, Z83.3) Status:Active Family history of lymphoma: Father(V16.7, Z80.7) Status:Active Unknown Family Member Name Dates Details FH: CABG (coronary artery by pass surgery): Mother(V17.3, Z82.49) Status:Active Family history of congestive heart failure: Mother(V17.49, Z82.49) Status:Active Family history of diabetes m ellitus: Mother, Father(V18.0, Z83.3) Status:Active Family history of lymphoma: Father(V16.7, Z80.7) Status:Active Unknown Family Member Name Dates Details FH: CABG (coronary artery by pass surgery): Mother(V17.3, Z82.49) Status:Active Family history of congestive heart failure: Mother(V17.49, Z82.49) Status:Active Family history of diabetes m ellitus: Mother, Father(V18.0, Z83.3) Status:Active Family history of lymphoma: Father(V16.7, Z80.7) Status:Active Unknown Family Member Name Dates Details FH: CABG (coronary artery by pass surgery): Mother(V17.3, Z82.49) Status:Active Family history of congestive heart failure: Mother(V17.49, Z82.49) Status:Active Family history of diabetes m ellitus: Mother, Father(V18.0, Z83.3) Status:Active Family history of lymphoma: Father(V16.7, Z80.7) Status:Active Unknown Family Member Name Dates Details FH: CABG (coronary artery by pass surgery): Mother(V17.3, Z82.49) Status:Active Family history of congestive heart failure: Mother(V17.49, Z82.49) Status:Active Family history of diabetes m ellitus: Mother, Father(V18.0, Z83.3) Status:Active Family history of lymphoma: Father(V16.7, Z80.7) Status:Active Advance Directives Advance Directive Response Recorded Date/ Time Advance Directives No July 8:25am Chief Complaint Order sent [place] [facility] [place] testing due in NovemberNIRMAL KAYLYNN is being seen for a 6 month follow-up of.NIRMAL CHAIDEZ is being seen for a 3 month follow-up of.NIRMAL CHAIDEZ is being seen for a 9 month follow-up of. Chief Complaint and Reason for Visit Chief Complaint Syncope Chief Complaint Syncope fall Chief Complaint Fall Reason for Visit Acute head injury Fall Syncope Additional Source Comments (unrecognized sect ion and content) No Status Records FoundNo Status Records FoundNo Status Records FoundNo Status Records FoundNo Status Records FoundNo Status Records FoundNo Status Records FoundNo Status Records Found INFORMATION SOURCE (unrecogn ized section and content) DATE CREATED AUTHOR 05/17/2018 [facility] DATE CREATED AUTHOR AUTHOR'S ORGANIZ ATION 05/08/2019 [facility] DATE CREATED AUTHOR AUTHOR'S ORGANIZ ATION 06/16/2022 [employer] DATE CREATED AUTHOR AUTHOR'S ORGANIZ ATION 04/29/2023 [facility] DATE CREATED AUTHOR AUTHOR'S ORGANIZ ATION 05/19/2023 [facility] DATE CREATED AUTHOR AUTHOR'S ORGANIZ ATION 05/19/2023 [facility] DATE CREATED AUTHOR AUTHOR'S ORGANIZ ATION 09/23/2023 Jeremiah Finch [facility] DATE CREATED AUTHOR AUTHOR'S ORGANIZ ATION 10/10/2023 [facility] [employer] Teams (unrecognized sec tion and content) Team Status: Active Member Role Status Dates Modesto Chavarria , DO Primary Care Provider Active Team Status: Active Member Role Status Dates Modesto Chavarria , DO Primary Care Provider Active Ran Raines , DO Emergency Provider Active Stalin Miranda MD Admit Provider, Attending Fatoumata hopkins Active Team Status: Inactive Member Role Status Dates Modesto Chavarria , DO Primary Care Provider Active Lalito Silva MD Admit Provider, Attending Provider Active Team Status: Inactive Member Role Status Dates Modesto Chavarria , DO Primary Care Provider Active Domenico Nicholson , DO Emergency Provider Active [employer] Relationship Specialty Start Date End Date Modesto Chavarria DO [address] [place] [address] PCP - General 11/21/99 REASON FOR VISIT (unrecogniz ed section and content) 3 month Follow up Reason Comments Follow-up 6m Goals (unrecognized section and content) Goals may be documented in a n alternate section FOR RECORDS PERTAINING TO PATIENTS WHO ARE OR HAVE BEEN ENROLLED IN A CHEMICAL DEPENDENCY/SUBSTANCEABUSE PROGRAM, SOME INFORMATION MAY BE OMITTED. This clinical summary was aggregated from multiple sources. Caution should be exercised in using it in the provision of clinical care. This summary normalizes information from multiple sources, and as a consequence, information in this document may materially change the coding, format and clinical context of patient data. In addition, data may be omitted in some cases. CLINICAL DECISIONS SHOULD BE BASED ON THE PRIMARY CLINICAL RECORDS. [facility] [employer] by [employer] [facility]. provides no warranty or guarantee of the accuracy or completeness of information in this document.
[2023-12-27 10:19] LABS: Basophils Absolute Auto 0.1 10^3/uL (0.0-0.1); Basophils Percent Auto 0.8 % (0.2-2.0); Eosinophils Absolute Auto 0.2 10^3/uL (0.0-0.7); Eosinophils Percent Auto 1.9 % (0.9-7.0); Hematocrit 47.5 % (42.0-54.0); Hemoglobin 14.5 g/dL (14.0-18.0); Immature Granulocytes Abs Auto 0.02 10^3/uL (0.00-0.03); Immature Granulocytes Pct Auto 0.2 % (0.0-0.5); Mean Corpuscular HGB Conc 30.5 g/dL (29.9-35.2); Mean Corpuscular Hemoglobin 27.7 pg (25.9-34.0); Mean Corpuscular Volume 90.8 fL (80.0-94.0); Mean Platelet Volume 9.5 fL (9.5-13.5); Monocytes Absolute Auto 0.6 10^3/uL (0.3-0.8); Monocytes Percent Auto 6.4 % (1.7-12.0); Neutrophils Absolute Auto 5.8 10^3/uL (1.4-6.5); Neutrophils Percent Auto 67.7 % (43.0-75.0); Platelet Count 217 10^3/uL (150-450); Red Blood Count 5.23 10^6/uL (4.70-6.10); Red Cell Distribution Width 14.4 % (11.0-15.0); White Blood Count 8.6 10^3/uL (4.0-11.0)
[2023-12-27 10:40] LABS: Estimated Average Glucose 212 mg/dL
[2023-12-27 10:59] LABS: Alanine Aminotransferase 12 U/L (16-63); Anion Gap 10.1; BUN Creatinine Ratio 18.8; Calcium 9.3 mg/dL (8.5-10.1); Carbon Dioxide 30.2 mmol/L (21.0-32.0); Chloride 102 mmol/L (98-107); Chol HDL Ratio 2.9; Cholesterol 153 mg/dL (<=200); Estimated GFR (African America >60 (>=60); Estimated GFR (Non-African Ame >60 (>=60); Glucose 188 mg/dL (74-106); HDL Cholesterol 53 mg/dL (40-60); Potassium 4.3 mmol/L (3.5-5.1); Sodium 138 mmol/L (136-145); Triglycerides 105 mg/dL (<=150)
[2023-12-27 12:17] LABS: Prostate Specific Antigen Scrn 1.13 ng/mL (<=4.00)
[2023-12-27 13:06] LABS: Creatinine Urine Random 108.03 mg/dL (20.00-300.00); Microalbum Creatinine Ratio Ur 49.9 mg/g (0.0-29.9); Microalbumin Urine Random 5.4 mg/dL (<=30.0)
== END 2023-12-27 09:38 | disposition home or self-care (01) ==
LOC: LAB 09:38
PROVIDERS: PCP Internal Medicine; Visit Provider Internal Medicine
DX: E78.00 Pure hypercholesterolemia, unspecified (principal); I48.21 Permanent atrial fibrillation; N18.31 Chronic kidney disease, stage 3a; I50.33 Acute on chronic diastolic (congestive) heart failure; I25.10 Atherosclerotic heart disease of native coronary artery without angina pectoris; Z12.5 Encounter for screening for malignant neoplasm of prostate; E11.65 Type 2 diabetes mellitus with hyperglycemia
CPT/HCPCS: 36415; 80048; 80061; 82043; 82570; 83036; 83880; 84460; 85025; G0103

== ENCOUNTER 2024-01-20 03:33 | Outpatient (RCR) | payer MEDICARE, OTHER, SELFPAY | END 2024-02-17 14:11 | disposition home or self-care (01) | LOC: MM 03:33 | PROVIDERS: PCP Internal Medicine; Visit Provider Internal Medicine | DX: Z51.81 Encounter for therapeutic drug level monitoring (principal); Z79.01 Long term (current) use of anticoagulants ==

== ENCOUNTER 2024-02-20 00:25 | Outpatient (RCR) | payer MEDICARE, OTHER, SELFPAY | END 2024-03-20 18:01 | disposition home or self-care (01) | LOC: MM 00:25 | PROVIDERS: PCP Internal Medicine; Visit Provider Internal Medicine | DX: Z51.81 Encounter for therapeutic drug level monitoring (principal); Z79.01 Long term (current) use of anticoagulants ==

== ENCOUNTER 2024-03-21 04:38 | Outpatient (RCR) | payer MEDICARE, OTHER, SELFPAY | END 2024-04-20 11:55 | disposition home or self-care (01) | LOC: MM 04:38 | PROVIDERS: PCP Internal Medicine; Visit Provider Internal Medicine | DX: Z51.81 Encounter for therapeutic drug level monitoring (principal); Z79.01 Long term (current) use of anticoagulants ==

== ENCOUNTER 2024-04-02 12:10 | Outpatient (OUT) | payer MEDICARE, OTHER, SELFPAY ==
--- NOTE | 2024-04-02 | XR_ITS ---
The [address] [address] Patient Name: NIRMAL CHAIDEZ MRN: [id number] date: 1945 Sex: M Assigned Patient Location: [employer] Current Patient Location: [employer] Accession/Order Number: [id number] Exam Date: 04/02/2024 12:28 Report Date: 04/02/2024 14:13 At the request of: HUSSEIN GIBSON Procedure: XR abdomen 1V EXAMINATION: XR abdomen 1V HISTORY: Z87.442, History of urinary calculi COMPARISON: No relevant comparison available. FINDINGS: KIDNEY/URETER - RIGHT: No visible renal or ureteral calcifications. KIDNEY/URETER - LEFT: No visible renal or ureteral calcifications. PELVIS: No visible ureteral calcifications. Any visible calcifications favor phleboliths. BOWEL: No abnormal dilation or deviation. BONES: Moderate to severe degenerative changes of the spine. 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 No abnormal gaseous collections. XR/XR abdomen 1V IMPRESSION: No definite urinary tract calculi Electronically authenticated by: LIBIA RITTER Date: 04/02/2024 14:13
== END 2024-04-02 12:11 | disposition home or self-care (01) ==
LOC: RAD 12:12
PROVIDERS: PCP Internal Medicine; Visit Provider Urology
DX: Z87.442 Personal history of urinary calculi (principal)
CPT/HCPCS: 74018

== ENCOUNTER 2024-04-23 03:11 | Outpatient (RCR) | payer MEDICARE, OTHER, SELFPAY | END 2024-05-18 10:23 | disposition home or self-care (01) | LOC: MM 03:11 | PROVIDERS: PCP Internal Medicine; Visit Provider Internal Medicine | DX: Z51.81 Encounter for therapeutic drug level monitoring (principal); Z79.01 Long term (current) use of anticoagulants ==

== ENCOUNTER 2024-04-25 14:00 | Outpatient (OUT) | payer MEDICARE, OTHER, SELFPAY ==
--- OUTSIDE RECORDS SUMMARY | 2024-09-20 09:18 | XMS_ITS | CCD ---
Author Organization [facility] Care Team Providers Care Headlight Assembler Name Role Phone PHYSICIAN, DEFAULT Unavailable Unavailable PHYSICIAN, DEFAULT Unavailable Unavailable Modesto Chavarria Unavailable Unavailable Unavailable Unavailable Unavailable DO Modesto Chavarria Primary Care Provider [phone] MD Lalito Silva Admit Provider [phone] MD Lalito Silva Attending Provider DO Domenico [...] Unavailable Ball, DO Salvador Primary Care Provider DO Ran Addison Emergency Provider MD Stalin Miranda Admit Provider MD Stalin Miranda Attending Provider [phone] Shira TOBIN, Dr. Lalito Savage Attending Unavailable Ball, Dr. Modesto Galan Primary Care [...] Attending Unavailable Ariel, Dr. Modesto Galan Primary [facility] Julia Silva II, Dr. Lalito Savage Referring Unavailable Shira TOBIN, Dr. Lalito Savage Attending Unavailable Shira TOBIN, Dr. Lalito Savage Attending Unavailable Shira II, Dr. Lalito Savage Referring Unavailable Ariel, Dr. Modesto Galan Primary Care Julia Chavarria, Dr. Modesto Galan Primary Care Julia Cameron, Dr. Milo Taylor Attending Cassi bindu Chavarria, Dr. Modesto Galan Primary Care Julia Chavarria, Dr. Modesto Galan Primary [facility] Modesto Booker DO Primary Care Provider Modesto Chavarria DO Primary Care Provider DO Modesto Chavarria Primary Care Provider [phone] [facility] Marva Attending Provider MD Lalito Silva Other Provider DO Domenico Betancourt Emergency Provider MD Stalin Cabezas Admit Provider MD Stalin Miranda Attending Provider [phone] DO Domenico Betancourt Emergency Provider MD Stalin Cabezas Admit Provider MD Stalin Miarnda Attending Provider Modesto Chavarria [facility] Care Unavailable Lalito Silva Consulting Unavail able Marva Soriano Admitting Unavailable Marva Soriano Attending Unavailable Modesto Chavarria Primary [facility] Unavailable Meredith Frost Consulting Unavailable Stalin Miranda Admitting Unavailab Stalin Cannon Attending Unavailab Constanza Contreras Consulting Unavailable Milo Cameron Consulting Unavailable Lalito Silva Consulting Unavail able Michael Mullen Consulting Unavailable Prashanth Marshall Consulting Unavailab Isabell Lopez Consulting Unavailable Jillian Hector Consulting Unavailable Ej Mandujano Consulting Unavailab Rachel De Leon Consulting Unavailable Gretel Palma Consulting Unavailable DO Modesto Chavarria Primary Care Provider [phone] LALITO ISLVA Attending Unavailable MODESTO CHAVARRIA Primary Care Unavailable LALITO SILVA Attending Unavailable LALITO SILVA Referring Unavailable MODESTO CHAVARRIA Primary Care Unavailable Carlos Alberto GIBSON Attending Unavailable Lalito Silva Admitting Unavailable Lalito Silva Attending Unavailable Lalito Silva Referring Unavailable Lalito Silva Admitting Unavailable Lalito Silva Attending Unavailable Lalito Silva Referring Unavailable Carlos Alberto GIBSON Attending Unavailable Carlos Alberto GIBSON Attending Unavailable Allergies Allergy Classification Reported Allergen(s) Allergy Type Date of Onset Reaction(s) Facility metFORMIN (1 source) metFORMIN Drug Allergy 03-26-20 24 Unknown Reaction [facility] Penicillins (antibiotic) (4 sources) Penicillins Drug Allergy 10-06-20 23 Hives, Unknown [facility] (17 sources) Penicillins; Translations: [Penicillins] Allergy to drug (finding) 10-06-20 23 Hives, Unknown Reaction [facility] (5 sources) Penicillin; Translations: [penicillin G] Drug Allergy 03-07-20 22 [facility] (20 sources) Penicillin G Benzathine; Translations: [penicillin G benzathine] Drug allergy 03-26-20 24 Unknown, Unknown Reaction [facility] (1 source) Grass pollen Drug allergy (disorder) [facility] (1 source) house dust allergenic extract Drug Allergy [facility] (1 source) Penicillins Drug allergy (disorder) 04-08-20 14 [facility] (12 sources) metFORMIN Drug Allergy 03-26-20 24 Unknown, Unknown Reaction [facility] (8 sources) Albuterol *ANTIASTHMATIC AND BRONCHODILATOR AGENTS Propensity to adverse reactions Unknown [facility] Other (8 sources) Substance with penicillin structure and antibacterial mechanism of action (substance) Drug allergy Unknown [facility] Other (1 source) Penicillins Drug Allergy 10-06-20 23 Hives, [facility] (1 source) metFORMIN Drug Allergy 03-26-20 24 [facility] Repository (1 source) Penicillins Drug allergy (disorder) 06-18-20 24 [facility] Rep[facility] (1 source) Dust; Translations: [Dust] Propensity to adverse reactions (disorder) [facility] Repository (1 source) Penicillin; Translations: [penicillin] Drug Allergy [facility] (1 source) Pollen; Translations: [Pollen] Propensity to adverse reactions (disorder) [facility] Repository Medications Current Medications Medication Drug [...] mouth every week Vitamin D3 1.25 MG (25086 UT) 1 capsule Orally weekly for 30 days May, Active citalopram 20 mg oral tablet (20 sources) Serotonin Reuptake Inhibitor Start: 03-30-2024 take 1 tablet by mouth once daily at bedtime Citalopram Active 0 .ROUTE .COMPLEX March 30, 2024 1:00pm TAKE 1 TABLET [...] pen Active 10 UNIT SUBCUT Every evening 02 17March 26, 2024 12:00am Increase Lantus 2u every [...] Subcutaneous weekly Sep, Active polyethylene glycol 3350 33017 mg powder for oral solution (2 sources) [...] In Packet Active 1 PACKET PO Daily 0 June 22, 2024 12:00am 0.25 mg, 0.5 [...] 4 MG Oral Tablet as directed by [place] [facility] Quantity: 0 Refills: 0 Ordered: 07-Sep-2021 DO [...] mouth every four to six hours Hydrocodone-Acetaminophen (North) 5-325 mg tablet Discontinued 1 TAB PO [...] Hyclate Discontinued 100 MG PO Twice daily 03 06January 16, 2024 1:00am March 23, 2024 4:34pm ergocalciferol 1.25 mg oral capsule (5 sources) Provitamin D2 Compound Start: 05-16-2023 End: 03-23-2024 take 1 capsule by mouth every week, then take 1 capsule by mouth every month Ergocalciferol (Vitamin D2) Discontinued 98364 UNIT PO As Directed May 16, 2023 [...] mg/ml injectable suspension (20 sources) Corticosteroid Start: 08-03-2023 Kenalog-40 Jun, 60 mg Start: 08-24-2022 End: [...] sources) Coronary atherosclerosis; Translations: [Coronary atherosclerosis of cahto coronary artery] Onset: 3 Chronic Diabetes mellitus [...] Onset: 3 Episodic Other aftercare (2 sources) [facility] (current) use of anticoagulants; Translations: [HAT FORMER CURRNT USE ANTICOAGULANTS] Onset: 3 Episodic Other aftercare (7 sources) Long-term current use of anticoagulant; Translations: [[facility] (current) use of anticoagulants] Episodic Other aftercare (8 sources) Long-term current use of drug therapy; Translations: [Other buttermaker (current) drug therapy] Episodic Other circulatory disease [...] and visceral atherosclerosis (8 sources) 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; Translations: [Unspecified atherosclerosis of cahto arteries of extremities, bilateral legs] Chronic Residual [...] atrial fibrillation; Translations: [Permanent atrial fibrillation] Onset: 3 Unclassified (5 sources) Chronic atrial [...] parasitic diseases] Onset: 10-06-2023 10-06-2023 Episodic Other lower respiratory disease (2 sources) Shortness of breath; Translations: [Shortness of breath] Onset: 10-06-2023 Episodic Other upper respiratory infections (8 [...] Test Name Value Interpretation Reference Range Facility Ambulatory Visit Summaryon 1 Ambulatory Visit Summary Ambulatory Visit Summary NIRMAL CHAIDEZ :1945 Visit Date:08/24/2024 Ambulatory Visit Instructions Your Diagnosis 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 Your Care Team Attending Physician - ARTHUR OCONNELL, Carlos Alberto Bunn Primary Care Physician - MODESTO CHAVARRIA DO This Is Your Medications List potassium bicarbonate (Effer-K 20 mEq oral tablet, effervescent) Contact prescribing physician if questions or concerns allopurinol (allopurinol 300 mg Tab) cholecalciferol (Vitamin D3) citalopram (citalopram 20 mg Tab) cyanocobalamin (Vitamin B12) cyanocobalamin (cyanocobalamin 1000 mcg Tab) nitroglycerin (nitroglycerin 0.4 mg sublingual Tab) pravastatin (pravastatin 40 mg Tab) torsemide [...] Laparoscopic repair of umbilical hernia. Discharge Vitals Temperature (Temporal Artery) 37 ?C Heart Rate (Peripheral) 63 Respiratory Rate 18 Blood Pressure 134/76 Height 167 cm Height 66 in Weight 141 kg Weight 310.2 lb BMI 50.56 What to do next Scheduled Follow-Up Appointments 2023 1:00 PM EST With: Where: [facility] Tuesday 11:30 AM EDT With: Carlos Alberto GIBSON MD Where: [facility] [address] [place] [address] [place] [address]- You Need to Schedule the Following Appointments Follow Up with Carlos Alberto GIBSON MD, URL When: Where: [address] [place] [address]- Medications What How Much When Instructions Unchanged potassium bicarbonate (Effer-K 20 mEq oral tablet, effervescent) 1 Tablets By Mouth 2 times a day Unchanged allopurinol (allopurinol 300 mg Tab) 1 Tablets By Mouth Every day Contact prescribing physician if questions or concerns Unchanged cholecalciferol (Vitamin D3) 250 Microgram Contact prescribing physician if questions or concerns Unchanged citalopram (citalopram 20 mg Tab) 1 Tablets By Mouth Every day Contact prescribing physician if questions or concerns Unchanged cyanocobalamin (cyanocobalamin 1000 mcg Tab) 1 Tablets By Mouth Every day Contact prescribing physician if questions or concerns Unchanged cyanocobalamin (Vitamin B12) Contact prescribing physician if questions or concerns Unchanged nitroglycerin (nitroglycerin 0.4 mg sublingual Tab) 1 Tablets Sublingual Every 5 minutes as needed for for chest pain Contact prescribing physician if questions or concerns Unchanged pravastatin (pravastatin 40 mg Tab) 1 Tablets By Mouth Every day Contact prescribing physician if questions or concerns Unchanged torsemide (torsemide 10 mg Tab) By Mouth Every day Contact prescribing physician if questions or concerns Unchanged warfarin 4 Milligram By Mouth Tuesday & Tuesday Contact prescribing physician if questions or concerns Allergies Dust (unknown) Pollen (unknown) penicillin (RASH) Problems Ongoing - Any problem that you are currently receiving treatment for. Anticoagulated Atrial fibrillation BMI 40.0-44.9, adult BPH with urinary obstruction Chronic prostatitis Coronary artery disease Diabetes Former smoker Gout Gross hematuria History of kidney stones Hypertension Incontinence without sensory awareness Kidney stone Kidney stones Morbid obesity Prostatitis Right nephrolithiasis Urinary urgency Historical - Any problem that you are no longer receiving treatment for. Atrial fibrillation Patient Survey You may receive a survey via text or e-mail asking about your office visit. Please share your experience with us by completing your survey. We appreciate your feedback and thank you for choosing us for your care. Education Materials Urinary Incontinence Urinary incontinence refers to a condition in which a person is unable to control where an (more content not included)... Normal [facility] Urology Office/Clinic Noteon 08-24-2024 Urology Office/Clinic Note Urology Office/Clinic Note Chief Complaint BPH with urinary obstruction and hx of kidney stones HPI Staff 18 mos w/ KUB. Dx: BPH with obstruction, hx of kidney stones, chronic prostatitis. S/p TURP 10/01/21. *Effer-K 20mEq bid. Pt states he has not been taking this for the past 2 months. [place] [facility] Dysuria: denies Incomplete bladder emptying: denies Hematuria: denies Frequency: denies Urgency: yes Nocturia: 1x Stream: no straining or intermittency Leaking: denies Post void dripping: denies Wearing pads/ Depends: depends changes 1x daily Urge incontinence: denies Stress incontinence: denies Incontinence without Sensory Awareness: denies Abdominal pain: denies Flank pain: denies Sexual complaints: denies History of Present Illness Tests reviewed: reviewed UA & KUB. I have reviewed the previous health record information and history for this patient from Dr. Gibson. I have reviewed and verified the staff HPI to be accurate for this encounter. There have been no associated fever, chills, flank pain, or blood in the urine. Denies any urinary infections since last encounter. Review of Systems PHQ Score Initial Depression Screen Score: 0 SCORE ROS - Provider Constitutional: denies weight loss, denies hot flashes. Eyes: denies eye problems. Gastrointestinal: denies nausea, denies vomiting. Cardiovascular: denies chest pain or angina. Integumentary: no dryness Musculoskeletal: denies musculoskeletal symptoms. ENMT: denies otolaryngeal symptoms. Respiratory: no shortness of breath. Heme/Lymph: denies easy bleeding tendency, denies easy bruising tendency. Psychiatric: no confusion, no anxiety. Genitourinary: See HPI. Physical Exam Vitals & Measurements T: 37 ?C(Temporal Artery) HR: 63(Peripheral) RR: 18 BP: 134/76 HT: 66 in HT: 167 cm WT: 141 kg WT: 310.2 lb BMI: 50.56 General Appearance: alert, no distress, well nourished, well developed male. Assessment/Plan Pt accompanied by today. 1. BPH with urinary obstruction (N40.1: Benign prostatic hyperplasia with lower urinary tract symptoms) PSA: 10/28/20 - 1.33 ~No longer checking PSA. S/p cysto 06/23/21. S/p urodynamics 08/18/21. S/p TURP 10/01/21. Not taking any BPH meds. No issues with stream. Does have some urgency, likely due to pt waiting too long to void. -Timed voids 2. Incontinence without sensory awareness (N39.42: Incontinence without sensory awareness) Does wear depends just for protection, does not typically leak but recently had one episode. unsure if pt was sleeping during event. Advised pt's to continue close monitoring to see when leakage occurs. -Monitor for leakage 3. Kidney stones (N20.0: Calculus of kidney) Hx of multiple stone procedures. Latest ESWL 07/16/18. KUB 10/28/22 No calcifications in the kidneys or ureters. KUB 04/23/24 [facility] - question of a tiny calcification overlying the inferior R kidney. There is however stool at this site. A punctate calcified stone at the lower pole on the L is also not excluded. No longer taking Effer-K 20mEq bid (effervescent). States he has not taken it for 2 months. Pt states when pt was in the hospital he was taken off of the medication but she is unsure why. Will have pt restart, new script sent. -Begin Effer-K 20mEq bid (effervescent) -KUB in 12 mos 4. Chronic prostatitis (N41.1: Chronic prostatitis) S/p TURP 10/01/21 showed chronic inflammation. UA today negative for blood and infection. Follow-up With When Contact Information ARTHUR OCONNELL, Carlos Alberto Bunn, URL [address] [place] [address]- Additional Instructions: 1 year w/ KUB Patient Education Urinary Incontinence I, Xochilt Vale, personally scribed for Dr. Gibson on 08/24/2024 11:53:59. . Documentation recorded by the scribe, Xochilt Vale, accurately reflects the services(s) I performed and decisions made by me. Authenticated by Dr. Gibson on 08/24/2024 11:59:30. Problem List/Past Medical History Ongoing Anticoagulated Atrial fibrillation BMI 40.0-44.9, adult BPH with urinary obstruction Chronic prostatitis Coronary artery disease Diabetes Former smoker Gout Gross hematuria History of kidney stones Hypertension Incontinence without sensory awareness Kidney stone Kidney stones Morbid obesity Prostatitis Right nephrolithiasis Urinary urgency Historical Atrial fibrillation Procedure/Surgical History Transurethral resection of prostate (10/01/2021), Urodynamics (08/18/2021), Cystoscope (06/23/2021), ESWL - Extracorporeal shockwave lithotripsy for renal calculus (07/06/2018), Placement of stent in cardiac conduit (05/21/2017), ESWL - Extracorporeal shockwave lithotripsy for renal calculus (05/05/2017), ESWL - Extracorporeal shockwave lithotripsy for renal calculus (01/22/2016), ESWL - Extracorporeal shockwave lithotripsy for renal calculu (more content not included)... Normal [facility] Comment on above: Result Comment: Elec tronically Signed By: ARTHUR OCONNELL, Carlos Alberto Bunn\.br\Date and Time Signed: 08/24/24 11:59 EDT\.br\Electronically Co-Signed By: Xochilt Vale.br\Date and Time Co-Signed: 08/24/24 11:54 EDT Automated basophil %Ordered By: Stalin Miranda on 06-22-2024 Basophils/100 WBC (Bld) 0.7 % . [facility] Comment on above: Performed By: #### C NICHOLAS, BMP #### [address] Automated basophil countOrde red By: Stalin Miranda on 06-22-2024 Basophils (Bld) [#/Vol] 0.1 10*3/uL 0.0-0.2 [facility] Comment on above: Result Comment: PERF ORMED BY: [place] [address] PATHOLOGIST SUPERVISOR [employer] CORAL GOLD M.D. Performed By: #### C NICHOLAS, BMP #### [address] Automated blood monocyte cou ntOrdered By: Stalinkiersten Miranda on 06-22-2024 Monocytes (Bld) [#/Vol] 0.7 10*3/uL 0.0-0.8 [facility] Comment on above: Performed By: #### C BC, BMP #### [address] Automated eosinophil %Ordere d By: Stalin Domillikpor on 06-22-2024 Eosinophils/100 WBC (Bld) 2.0 % . [facility] Comment on above: Performed By: #### C BC, BMP #### [address] Automated eosinophil countOr dered By: Stalinkiersten Miranda on 06-22-2024 Eosinophils (Bld) [#/Vol] 0.2 10*3/uL 0.0-0.45 [facility] Comment on above: Performed By: #### C BC, BMP #### [address] Automated monocyte %Ordered By: Stalin Ruth on 06-22-2024 Monocytes/100 WBC (Bld) 6.4 % . [facility] Comment on above: Performed By: #### C BC, BMP #### [address] Automated neutrophil %Ordere d By: Stalin Gavikpor on 06-22-2024 Neutrophils/100 WBC (Bld) 73.9 % . [facility] Comment on above: Performed By: #### C BC, BMP #### [address] Basic Metabolic Panelon Creatinine Clr Calc Pharmacy 89.71 Normal [facility] Comment on above: Result Comment: PERF ORMED BY: [place] [address] PATHOLOGIST SUPERVISOR [employer]PART[employer] CORAL GOLD M.D. Performed By: #### C BC, BMP #### [place] [address] [place] GFR/1.73 sq M.predicted MDRD (S/P/Bld) [Vol rate/Area] mL/min/{1.73_m2} Normal [facility] Comment on above: Performed By: #### C BC, BMP #### [place] [address] [place] Calcium [Mass/volume] in Ser um or PlasmaOrdered By: Stalin Miranda on 06-22-2024 Calcium [Mass/Vol] 9.5 mg/dL 8.6-10.3 [facility] Comment on above: Performed By: #### C NICHOLAS, BMP #### [address] Capillary blood glucose robert urement by glucometer (mass/volume)Ordered By: Stalin Miranda on 06-22-2024 Glucose [Mass/Vol] 143 mg/dL [facility] Comment on above: Random Glucose Refer ence Range is dependent on time and content of last meal. Glucose of more than 200 mg/dL in a nonstressed, ambulatory subject supports the diagnosis of Diabetes Mellitus. Result Comment: [facility] Glucose Reference Range is dependent on time and content of last meal. Glucose of more than 200 mg/dL in a nonstressed, ambulatory subject supports the diagnosis of Diabetes Mellitus. PERFORMED BY: [place] [address] PATHOLOGIST SUPERVISOR [employer]AL GOLD M.D. Performed By: #### C BC, BMP #### [place] [address] [place] Carbon dioxide, total [Moles /volume] in Serum or PlasmaOrdered By: Stalin Miranda on 06-22-2024 CO2 [Moles/Vol] 26.9 mmol/L 21.0-31.0 [facility] Comment on above: Performed By: #### C BC, BMP #### [place] [address] [place] Chloride [Moles/volume] in S karla or PlasmaOrdered By: Stalin Miranda on 06-22-2024 Chloride [Moles/Vol] 99 mmol/L 98-107 [facility] Comment on above: Performed By: #### C BC, BMP #### [address] Complete Blood Count Auto Di ffon 06-22-2024 Mean Corpuscular HGB Conc 32.3 g/dL Low 32.5-35.6 [facility] Comment on above: Performed By: #### C BC, BMP #### [address] NRBC% 0.1 /100{WBC} Normal 0-0.5 [facility] Comment on above: Performed By: #### C BC, BMP #### [address] Creatinine [Mass/volume] in Serum or PlasmaOrdered By: Stalin Miranda on 06-22-2024 Creatinine [Mass/Vol] 0.92 mg/dL 0.70-1.30 [facility] Comment on above: Performed By: #### C BC, BMP #### [address] Erythrocyte distribution wid th [Ratio] by Automated countOrdered By: Stalin Miranda on 06-22-2024 Erythrocyte distribution width (RBC) [Ratio] 17.0 % High 12.0-14.8 [facility] Comment on above: Performed By: #### C BC, BMP #### [address] Erythrocytes [#/volume] in B lood by Automated countOrdered By: Stalin Miranda on 06-22-2024 RBC (Bld) [#/Vol] 4.77 10*6/uL 3.90-5.60 [facility] Comment on above: Performed By: #### C BC, BMP #### [address] Glucose Poct Glucometerson 0 06-22-2024 Commemt1 Glu2: Cleaned Meter Normal [facility] Comment on above: Result Comment: PERF ORMED BY: [place] [address] PATHOLOGIST SUPERVISOR [employer] GOLD M.D. Performed By: #### C NICHOLAS, BMP #### [address] Glucose [Mass/Vol] 128 mg/dL Normal [facility] Comment on above: Result Comment: Comptche om Glucose Reference Range is dependent on time and content of last meal. Glucose of more than 200 mg/dL in a nonstressed, ambulatory subject supports the diagnosis of Diabetes Mellitus. Performed By: #### C NICHOLAS, BMP #### [place] [address] [place] Glucose [Mass/volume] in Ser um or PlasmaOrdered By: Stalin Miranda on 06-22-2024 Glucose [Mass/Vol] 137 mg/dL High 70-100 [facility] Comment on above: ADA recommended refe rence rangeRandom Glucose Reference Range is dependent on time and content of last meal. Glucose of more than 200 mg/dL in a nonstressed, ambulatory subject supports the diagnosis of Diabetes Mellitus. Result Comment: Comptche om Glucose Reference Range is dependent on time and content of last meal. Glucose of more than 200 mg/dL in a nonstressed, ambulatory subject supports the diagnosis of Diabetes Mellitus. ADA recommended reference range Performed By: #### C NICHOLAS, BMP #### [place] [address] [place] Hematocrit [Volume Fraction] of Blood by Automated countOrdered By: Stalin Miranda on 06-22-2024 Hematocrit (Bld) [Volume fraction] 40.8 % 38.8-50.0 [facility] Comment on above: Performed By: #### C NICHOLAS, BMP #### [place] [address] [place] Hemoglobin [Mass/volume] in BloodOrdered By: Stalin Miranda on 06-22-2024 Hemoglobin (Bld) [Mass/Vol] 13.2 g/dL 13.0-17.0 [facility] Comment on above: Performed By: #### C NICHOLAS, FIOR #### [address] INR in Platelet poor plasma by Coagulation assayOrdered By: Stalin Miranda on 06-22-2024 INR Coag (PPP) [Relative time] 2.4 {INR} [facility] Comment on above: INR Therapeutic [...] heart valves: 3 - 4.5 PERFORMED BY: [place] [address] PATHOLOGIST SUPERVISOR [employer]AL GOLD M.D. Performed By: #### P T #### [address] Leukocytes [#/volume] correc faraz for nucleated erythrocytes in Blood by Automated counOrdered By: Stalin Miranda on 06-22-2024 WBC corrected for nucl RBC Auto (Bld) [#/Vol] 10.4 10*3/uL 4.1-10.5 [facility] Leukocytes [#/volume] in Blo od by Automated countOrdered By: Stalin Miranda on 06-22-2024 WBC (Bld) [#/Vol] 10.4 10*3/uL 4.1-10.5 [facility] Comment on above: Performed By: #### C NICHOLAS, BMP #### [place] [address] [place] Lymphocytes [#/volume] in Bl ood by Automated countOrdered By: Stalin Miranda on 06-22-2024 Lymphocytes (Bld) [#/Vol] 1.8 10*3/uL 1.00-4.8 [facility] Comment on above: Performed By: #### C BC, BMP #### [place] [address] [place] Lymphocytes/100 leukocytes i n Blood by Automated countOrdered By: Stalin Miranda on 06-22-2024 Lymphocytes/100 WBC (Bld) 17.0 % . [facility] Comment on above: Performed By: #### C BC, BMP #### [address] MCH [Entitic mass] by Automa faraz countOrdered By: Stalin Miranda on 06-22-2024 MCH (RBC) [Entitic mass] 27.7 pg 27.5-35.2 [facility] Comment on above: Performed By: #### C BC, BMP #### [address] MCHC Auto (RBC) [Mass/Vol]Or dered By: Stalin Miranda on 06-22-2024 MCHC (RBC) [Mass/Vol] 32.3 g/dL Low 32.5-35.6 [facility] MCV [Entitic volume] by Auto mated countOrdered By: Stalin Miranda on 06-22-2024 MCV (RBC) [Entitic vol] 85.6 fL 83.5-101 F [facility] Comment on above: Performed By: #### C BC, BMP #### [place] [address] [place] Neutrophils [#/volume] in Bl ood by Automated countOrdered By: Stalin Miranda on 06-22-2024 Neutrophils (Bld) [#/Vol] 7.7 10*3/uL 1.8-7.7 [facility] Comment on above: Performed By: #### C BC, BMP #### [facility] [address] [place] [address] No Panel InformationOrdered By: Stalin Miranda on 06-22-2024 Bedside Glucose Comment Glu2: cleaned meter [facility] Estimated GFR (CKD-EPI) > 60.0 mL/Min [facility] Creatinine Clearance (Chem 89.71 [facility] Nucleated erythrocytes [Pres ence] in Blood by Automated countOrdered By: Stalin Miranda on 06-22-2024 Nucleated RBC Auto Ql (Bld) 0.1 /100{WBC} 0-0.5 [facility] Platelet mean volume [Entiti c volume] in Blood by Automated countOrdered By: Stalin Miranda on 06-22-2024 Platelet mean volume (Bld) [Entitic vol] 7.9 fL 6.6-10.1 [facility] Comment on above: Performed By: #### C NICHOLAS, BMP #### [facility] [address] [place] [address] Platelets [#/volume] in Bloo d by Automated countOrdered By: Stalin Miranda on 06-22-2024 Platelets (Bld) [#/Vol] 237 10*3/uL 150-450 [facility] Comment on above: Performed By: #### C NICHOLAS, BMP #### [facility] [address] [place] [address] Potassium [Moles/volume] in Serum or PlasmaOrdered By: Stalin Miranda on 06-22-2024 Potassium [Moles/Vol] 4.1 mmol/L 3.5-5.1 [facility] Comment on above: Performed By: #### C NICHOLAS, BMP #### [facility] [address] [place] [address] Prothrombin time (PT)Ordered By: Stalin Miranda on 06-22-2024 PT Coag (PPP) [Time] 26.6 s High 9.0-12.9 [facility] Comment on above: A hematocrit value g reater than 55% may lead to inaccurate results in coagulation testing. Patients having hematocrit values >55% require a special collection tube for coagulation studies. Please contact the laboratory at [phone] for redraw instructions. Result Comment: A he matocrit value greater than 55% may lead to inaccurate results in coagulation testing. Patients having hematocrit values >55% require a special collection tube for coagulation studies. Please contact the laboratory at [phone] for redraw instructions. Performed By: #### P T #### [address] Serum or plasma anion gap de terminationOrdered By: Stalin Miranda on 06-22-2024 Anion gap [Moles/Vol] 10.2 mmol/L 6.0-15.0 [facility] Comment on above: Performed By: #### C BC, BMP #### [address] Sodium [Moles/volume] in Ser um or PlasmaOrdered By: Stalin Miranda on 06-22-2024 Sodium [Moles/Vol] 132 mmol/L Low 136-145 [facility] Comment on above: Performed By: #### C BC, BMP #### [address] Urea nitrogen [Mass/volume] in Serum or PlasmaOrdered By: Stalin Gaticakpor on 06-22-2024 Urea nitrogen [Mass/Vol] 26 mg/dL High 7-25 [facility] Comment on above: Performed By: #### C BC, BMP #### [address] Basic Metabolic Panelon 08-0 Anion gap [Moles/Vol] 9.4 mmol/L Normal 6.0-15.0 [facility] Comment on above: Performed By: #### C BC, BMP #### [address] Calcium [Mass/Vol] 9.4 mg/dL Normal 8.6-10.3 [facility] Comment on above: Performed By: #### C BC, BMP #### [address] Chloride [Moles/Vol] 100 mmol/L Normal 98-107 [facility] Comment on above: Performed By: #### C BC, BMP #### [address] CO2 [Moles/Vol] 27.6 mmol/L Normal 21.0-31.0 [facility] Comment on above: Performed By: #### C BC, BMP #### [address] Creatinine [Mass/Vol] 1.20 mg/dL Normal 0.70-1.30 [facility] Comment on above: Performed By: #### C BC, BMP #### [address] Creatinine Clr Calc Pharmacy 68.60 Normal [facility] Comment on above: Result Comment: PERF ORMED BY: [place] [address] PATHOLOGIST SU[employer] M.D. Performed By: #### C BC, BMP #### [address] GFR/1.73 sq M.predicted MDRD (S/P/Bld) [Vol rate/Area] mL/min/{1.73_m2} Normal [facility] Comment on above: Performed By: #### C BC, BMP #### [address] Glucose [Mass/Vol] 104 mg/dL High 70-100 [facility] Comment on above: Result Comment: [place] Glucose Reference Range is dependent on time and content of last meal. Glucose of more than 200 mg/dL in a nonstressed, ambulatory subject supports the diagnosis of Diabetes Mellitus. ADA recommended reference range Performed By: #### C BC, BMP #### [address] Potassium [Moles/Vol] 4.0 mmol/L Normal 3.5-5.1 [facility] Comment on above: Performed By: #### C BC, BMP #### [address] Sodium [Moles/Vol] 133 mmol/L Low 136-145 [facility] Comment on above: Performed By: #### C BC, BMP #### [address] Urea nitrogen [Mass/Vol] 31 mg/dL High 7-25 [facility] Comment on above: Performed By: #### C BC, BMP #### [address] Complete Blood Count Auto Di ffon 06-21-2024 Basophils (Bld) [#/Vol] 0.1 10*3/uL Normal 0.0-0.2 [facility] Comment on above: Result Comment: PERF ORMED BY: [place] [address] PATHOLOGIST SUPER[employer] M.D. Performed By: #### C BC, BMP #### [address] Basophils/100 WBC (Bld) 1.0 % Normal . [facility] Comment on above: Performed By: #### C BC, BMP #### [address] Eosinophils (Bld) [#/Vol] 0.3 10*3/uL Normal 0.0-0.45 [facility] Comment on above: Performed By: #### C BC, BMP #### [address] Eosinophils/100 WBC (Bld) 3.3 % Normal . [facility] Comment on above: Performed By: #### C BC, BMP #### [address] Erythrocyte distribution width (RBC) [Ratio] 17.0 % High 12.0-14.8 [facility] Comment on above: Performed By: #### C BC, BMP #### [address] Hematocrit (Bld) [Volume fraction] 39.4 % Normal 38.8-50.0 [facility] Comment on above: Performed By: #### C BC, BMP #### [address] Hemoglobin (Bld) [Mass/Vol] 12.8 g/dL Low 13.0-17.0 [facility] Comment on above: Performed By: #### C BC, BMP #### [address] Lymphocytes (Bld) [#/Vol] 1.5 10*3/uL Normal 1.00-4.8 [facility] Comment on above: Performed By: #### C BC, BMP #### [address] Lymphocytes/100 WBC (Bld) 19.5 % Normal . [facility] Comment on above: Performed By: #### C BC, BMP #### [address] MCH (RBC) [Entitic mass] 27.9 pg Normal 27.5-35.2 [facility] Comment on above: Performed By: #### C BC, BMP #### [address] MCV (RBC) [Entitic vol] 85.9 fL Normal 83.5-101 [facility] Comment on above: Performed By: #### C BC, BMP #### [address] Mean Corpuscular HGB Conc 32.5 g/dL Normal 32.5-35.6 [facility] Comment on above: Performed By: #### C BC, BMP #### [address] Monocytes (Bld) [#/Vol] 0.6 10*3/uL Normal 0.0-0.8 [facility] Comment on above: Performed By: #### C BC, BMP #### [address] Monocytes/100 WBC (Bld) 8.3 % Normal . [facility] Comment on above: Performed By: #### C BC, BMP #### [facility] [address] [place] [address] [place] Neutrophils (Bld) [#/Vol] 5.2 10*3/uL Normal 1.8-7.7 [facility] Comment on above: Performed By: #### C BC, BMP #### [facility] [address] [place] [address] [place] Neutrophils/100 WBC (Bld) 67.9 % Normal . [facility] Comment on above: Performed By: #### C BC, BMP #### [facility] [address] NRBC% 0.0 /100{WBC} Normal 0-0.5 [facility] Comment on above: Performed By: #### C BC, BMP #### [facility] [address] Platelet mean volume (Bld) [Entitic vol] 7.9 fL Normal 6.6-10.1 [facility] Comment on above: Performed By: #### C BC, BMP #### [facility] [address] [place] [address] [place] Platelets (Bld) [#/Vol] 219 10*3/uL Normal 150-450 [facility] Comment on above: Performed By: #### C BC, BMP #### [facility] [address] [place] [address] [place] RBC (Bld) [#/Vol] 4.58 10*6/uL Normal 3.90-5.60 [facility] Comment on above: Performed By: #### C BC, BMP #### [facility] [address] [place] [address] [place] WBC (Bld) [#/Vol] 7.7 10*3/uL Normal 4.1-10.5 [facility] Comment on above: Performed By: #### C BC, BMP #### [facility] [address] [place] [address] [place] Glucose Poct Glucometerson 0 06-21-2024 Commemt1 Glu2: Cleaned Meter Normal [facility] Comment on above: Result Comment: PERF ORMED BY: [place] [address] PATHOLOGIST SUPER[employer] M.D. Performed By: #### C BC, BMP #### [facility] [address] [place] [address] [place] Glucose [Mass/Vol] 123 mg/dL Normal [facility] Comment on above: Result Comment: [place] om Glucose Reference Range is dependent on time and content of last meal. Glucose of more than 200 mg/dL in a nonstressed, ambulatory subject supports the diagnosis of Diabetes Mellitus. Performed By: #### C BC, BMP #### [address] [address] [place] Glucose [Mass/Vol] 151 mg/dL Normal [facility] Comment on above: Result Comment: [place] om Glucose Reference Range is dependent on time and content of last meal. Glucose of more than 200 mg/dL in a nonstressed, ambulatory subject supports the diagnosis of Diabetes Mellitus. PERFORMED BY: [place] [address] PATHOLOGIST SUPER[employer] M.D. Performed By: #### G LULS #### Point of Care testing , Glucose [Mass/Vol] 129 mg/dL Normal [facility] Comment on above: Result Comment: [place] om Glucose Reference Range is dependent on time and content of last meal. Glucose of more than 200 mg/dL in a nonstressed, ambulatory subject supports the diagnosis of Diabetes Mellitus. PERFORMED BY: [address] [address] PATHOLOGIST SUPER[employer] M.D. Performed By: #### C BC, BMP #### [facility] [address] [place] [address] [place] Glucose [Mass/Vol] 114 mg/dL Normal [facility] Comment on above: Result Comment: [place] om Glucose Reference Range is dependent on time and content of last meal. Glucose of more than 200 mg/dL in a nonstressed, ambulatory subject supports the diagnosis of Diabetes Mellitus. PERFORMED BY: [place] [address] PATHOLOGIST SUPER[employer] M.D. Performed By: #### G QUE #### Point of Care testing , Prothrombin Time INRon 06-21 INR Coag (PPP) [Relative time] 2.2 {INR} Normal [facility] Comment on above: Result Comment: [...] heart valves: 3 - 4.5 PERFORMED BY: [place] [address] PATHOLOGIST SUPER[employer] M.D. Performed By: #### P T #### [address] PT Coag (PPP) [Time] 25.2 s High 9.0-12.9 [facility] Comment on above: Result Comment: A he matocrit value greater than 55% may lead to inaccurate results in coagulation testing. Patients having hematocrit values >55% require a special collection tube for coagulation studies. Please contact the laboratory at [phone] for redraw instructions. Performed By: #### P T #### [address] Basic Metabolic Panelon 05-23 Anion gap [Moles/Vol] 11.8 mmol/L Normal 6.0-15.0 [facility] Comment on above: Performed By: #### C BC BMP #### [address] Calcium [Mass/Vol] 9.0 mg/dL Normal 8.6-10.3 [facility] Comment on above: Performed By: #### C BC, BMP #### [address] Chloride [Moles/Vol] 98 mmol/L Normal 98-107 [facility] Comment on above: Performed By: #### C BC, BMP #### [address] CO2 [Moles/Vol] 27.1 mmol/L Normal 21.0-31.0 [facility] Comment on above: Performed By: #### C BC, BMP #### [address] Creatinine [Mass/Vol] 1.48 mg/dL High 0.70-1.30 [facility] Comment on above: Performed By: #### C BC, BMP #### [address] Creatinine Clr Calc Pharmacy 54.81 Normal [facility] Comment on above: Result Comment: PERF ORMED BY: [place] [address] PATHOLOGIST SUPER[employer] M.D. Performed By: #### C BC, BMP #### [address] GFR/1.73 sq M.predicted MDRD (S/P/Bld) [Vol rate/Area] 48.126 mL/min/{1.73_m2} Normal [facility] Comment on above: Performed By: #### C BC, BMP #### [address] Glucose [Mass/Vol] 128 mg/dL High 70-100 [facility] Comment on above: Result Comment: [place] Glucose Reference Range is dependent on time and content of last meal. Glucose of more than 200 mg/dL in a nonstressed, ambulatory subject supports the diagnosis of Diabetes Mellitus. ADA recommended reference range Performed By: #### C BC, BMP #### [address] Potassium [Moles/Vol] 3.9 mmol/L Normal 3.5-5.1 [facility] Comment on above: Performed By: #### C BC, BMP #### [address] Sodium [Moles/Vol] 133 mmol/L Low 136-145 [facility] Comment on above: Performed By: #### C BC, BMP #### [address] Urea nitrogen [Mass/Vol] 40 mg/dL High 7-25 [facility] Comment on above: Performed By: #### C BC, BMP #### [address] Complete Blood Count Auto Di ffon 06-20-2024 Basophils (Bld) [#/Vol] 0.1 10*3/uL Normal 0.0-0.2 [facility] Comment on above: Result Comment: PERF ORMED BY: [place] [address] PATHOLOGIST SUPER[employer] M.D. Performed By: #### C NICHOLAS, BMP #### [address] Basophils/100 WBC (Bld) 0.7 % Normal . [facility] Comment on above: Performed By: #### C BC, BMP #### [address] Eosinophils (Bld) [#/Vol] 0.2 10*3/uL Normal 0.0-0.45 [facility] Comment on above: Performed By: #### C BC, BMP #### [address] Eosinophils/100 WBC (Bld) 2.7 % Normal . [facility] Comment on above: Performed By: #### C BC, BMP #### [address] Erythrocyte distribution width (RBC) [Ratio] 16.5 % High 12.0-14.8 [facility] Comment on above: Performed By: #### C BC, BMP #### [place] [address] [place] Hematocrit (Bld) [Volume fraction] 39.5 % Normal 38.8-50.0 [facility] Comment on above: Performed By: #### C BC, BMP #### [address] Hemoglobin (Bld) [Mass/Vol] 12.6 g/dL Low 13.0-17.0 [facility] Comment on above: Performed By: #### C BC, BMP #### [address] Lymphocytes (Bld) [#/Vol] 1.6 10*3/uL Normal 1.00-4.8 [facility] Comment on above: Performed By: #### C BC, BMP #### [address] Lymphocytes/100 WBC (Bld) 18.3 % Normal . [facility] Comment on above: Performed By: #### C BC, BMP #### [address] MCH (RBC) [Entitic mass] 27.7 pg Normal 27.5-35.2 [facility] Comment on above: Performed By: #### C BC, BMP #### [address] MCV (RBC) [Entitic vol] 86.8 fL Normal 83.5-101 [facility] Comment on above: Performed By: #### C BC, BMP #### [address] Mean Corpuscular HGB Conc 31.9 g/dL Low 32.5-35.6 [facility] Comment on above: Performed By: #### C BC, BMP #### [address] Monocytes (Bld) [#/Vol] 0.7 10*3/uL Normal 0.0-0.8 [facility] Comment on above: Performed By: #### C BC, BMP #### [address] [address] [place] Monocytes/100 WBC (Bld) 8.0 % Normal . [facility] Comment on above: Performed By: #### C BC, BMP #### [address] Neutrophils (Bld) [#/Vol] 6.1 10*3/uL Normal 1.8-7.7 [facility] Comment on above: Performed By: #### C BC, BMP #### [address] Neutrophils/100 WBC (Bld) 70.3 % Normal . [facility] Comment on above: Performed By: #### C BC, BMP #### [address] NRBC% 0.2 /100{WBC} Normal 0-0.5 [facility] Comment on above: Performed By: #### C BC, BMP #### [address] Platelet mean volume (Bld) [Entitic vol] 8.1 fL Normal 6.6-10.1 [facility] Comment on above: Performed By: #### C BC, BMP #### [address] Platelets (Bld) [#/Vol] 232 10*3/uL Normal 150-450 [facility] Comment on above: Performed By: #### C BC, BMP #### [place] [address] [place] RBC (Bld) [#/Vol] 4.55 10*6/uL Normal 3.90-5.60 [facility] Comment on above: Performed By: #### C BC, BMP #### [place] [address] [place] WBC (Bld) [#/Vol] 8.7 10*3/uL Normal 4.1-10.5 [facility] Comment on above: Performed By: #### C BC, BMP #### [address] Glucose Poct Glucometerson 0 06-20-2024 Glucose [Mass/Vol] 131 mg/dL Normal [facility] Comment on above: Result Comment: [place] Glucose Reference Range is dependent on time and content of last meal. Glucose of more than 200 mg/dL in a nonstressed, ambulatory subject supports the diagnosis of Diabetes Mellitus. PERFORMED BY: [place] [address] PATHOLOGIST SUPER[employer] M.D. Performed By: #### C BC, BMP #### [facility] [address] [place] [address] [facility] Glucose [Mass/Vol] 130 mg/dL Normal [facility] Comment on above: Result Comment: [place] Glucose Reference Range is dependent on time and content of last meal. Glucose of more than 200 mg/dL in a nonstressed, ambulatory subject supports the diagnosis of Diabetes Mellitus. PERFORMED BY: [place] [address] PATHOLOGIST SUPER[employer] M.D. Performed By: #### G LULS #### Point of Care testing , Prothrombin Time INRon 06-20 INR Coag (PPP) [Relative time] 2.2 {INR} Normal [facility] Comment on above: Result Comment: [...] heart valves: 3 - 4.5 PERFORMED BY: [place] [address] PATHOLOGIST SUPER[employer] M.D. Performed By: #### C BC, BMP #### [facility] [address] [place] [address] [facility] PT Coag (PPP) [Time] 25.4 s High 9.0-12.9 [facility] Comment on above: Result Comment: A he matocrit value greater than 55% may lead to inaccurate results in coagulation testing. Patients having hematocrit values >55% require a special collection tube for coagulation studies. Please contact the laboratory at [phone] for redraw instructions. Performed By: #### C NICHOLAS, FIOR #### [facility] [address] [place] [address] [place] A1C with Estimated Average G shubhamn 06-19-2024 Glucose [Mass/Vol] 183 mg/dL Normal [facility] Comment on above: Result Comment: PERF ORMED BY: [facility] [address] [place] [address] PATHOLOGIST SUPER[employer] M.D. Performed By: #### G LULS #### Point of Care testing , Activated partial thrombopla stin time (aPTT) in platelet poor plasma by coagulation aOrdered By: Stalin Miranda on 06-19-2024 aPTT Coag (PPP) [Time] 38.4 s High 25.1-36.5 [facility] Comment on above: A hematocrit value g reater than 55% may lead to inaccurate results in coagulation testing. Patients having hematocrit values >55% require a special collection tube for coagulation studies. Please contact the laboratory at [phone] for redraw instructions. Basic Metabolic Panelon 05-23 Anion gap [Moles/Vol] 9.5 mmol/L Normal 6.0-15.0 [facility] Comment on above: Performed By: #### G LULS #### Point of Care testing , Calcium [Mass/Vol] 9.5 mg/dL Normal 8.6-10.3 [facility] Comment on above: Performed By: #### G LULS #### Point of Care testing , Chloride [Moles/Vol] 98 mmol/L Normal 98-107 [facility] Comment on above: Performed By: #### G LULS #### Point of Care testing , CO2 [Moles/Vol] 29.8 mmol/L Normal 21.0-31.0 [facility] [facility] Comment on above: Performed By: #### G LULS #### Point of Care testing , Creatinine [Mass/Vol] 1.65 mg/dL High 0.70-1.30 [facility] Comment on above: Performed By: #### G LULS #### Point of Care testing , Creatinine Clr Calc Pharmacy 49.73 Normal [facility] Comment on above: Performed By: #### G LULS #### Point of Care testing , GFR/1.73 sq M.predicted MDRD (S/P/Bld) [Vol rate/Area] 42.239 mL/min/{1.73_m2} Normal [facility] Comment on above: Performed By: #### G LULS #### Point of Care testing , Glucose [Mass/Vol] 122 mg/dL High 70-100 [facility] Comment on above: Result Comment: [facility] Glucose Reference Range is dependent on time and content of last meal. Glucose of more than 200 mg/dL in a nonstressed, ambulatory subject supports the diagnosis of Diabetes Mellitus. ADA recommended reference range Performed By: #### G LULS #### Point of Care testing , Potassium [Moles/Vol] 4.3 mmol/L Normal 3.5-5.1 [facility] Comment on above: Performed By: #### G LULS #### Point of Care testing , Sodium [Moles/Vol] 133 mmol/L Low 136-145 [facility] Comment on above: Performed By: #### G LULS #### Point of Care testing , Urea nitrogen [Mass/Vol] 47 mg/dL High 7-25 [facility] Comment on above: Performed By: #### G LULS #### Point of Care testing , Complete Blood Count Auto Di ffon 06-19-2024 Basophils (Bld) [#/Vol] 0.1 10*3/uL Normal 0.0-0.2 [facility] Comment on above: Result Comment: PERF ORMED BY: [facility] [place] [address] PATHOLOGIST SUPERVISOR [employer] DEPARTMENT CORAL GOLD M.D. Performed By: #### G LULS #### Point of Care testing , Basophils/100 WBC (Bld) 1.2 % Normal . T he [facility] Comment on above: Performed By: #### G LULS #### Point of Care testing , Eosinophils (Bld) [#/Vol] 0.2 10*3/uL Normal 0.0-0.45 [facility] Comment on above: Performed By: #### G LULS #### Point of Care testing , Eosinophils/100 WBC (Bld) 1.6 % Normal . [facility] Comment on above: Performed By: #### G LULS #### Point of Care testing , Erythrocyte distribution width (RBC) [Ratio] 16.6 % High 12.0-14.8 [facility] Comment on above: Performed By: #### G LULS #### Point of Care testing , Hematocrit (Bld) [Volume fraction] 39.1 % Normal 38.8-50.0 [facility] Comment on above: Performed By: #### G LULS #### Point of Care testing , Hemoglobin (Bld) [Mass/Vol] 12.8 g/dL Low 13.0-17.0 [facility] Comment on above: Performed By: #### G LULS #### Point of Care testing , Lymphocytes (Bld) [#/Vol] 1.9 10*3/uL Normal 1.00-4.8 [facility] Comment on above: Performed By: #### G LULS #### Point of Care testing , Lymphocytes/100 WBC (Bld) 19.8 % Normal . [facility] Comment on above: Performed By: #### G LULS #### Point of Care testing , MCH (RBC) [Entitic mass] 28.0 pg Normal 27.5-35.2 [facility] Comment on above: Performed By: #### G LULS #### Point of Care testing , MCV (RBC) [Entitic vol] 85.8 fL Normal 83.5-101 T [facility] Comment on above: Performed By: #### G LULS #### Point of Care testing , Mean Corpuscular HGB Conc 32.6 g/dL Normal 32.5-35.6 [facility] Comment on above: Performed By: #### G LULS #### Point of Care testing , Monocytes (Bld) [#/Vol] 0.8 10*3/uL Normal 0.0-0.8 [facility] Comment on above: Performed By: #### G LULS #### Point of Care testing , Monocytes/100 WBC (Bld) 8.0 % Normal . T he [facility] Comment on above: Performed By: #### G LULS #### Point of Care testing , Neutrophils (Bld) [#/Vol] 6.8 10*3/uL Normal 1.8-7.7 [facility] Comment on above: Performed By: #### G LULS #### Point of Care testing , Neutrophils/100 WBC (Bld) 69.4 % Normal . [facility] Comment on above: Performed By: #### G LULS #### Point of Care testing , NRBC% 0.0 /100{WBC} Normal 0-0.5 [facility] Comment on above: Performed By: #### G LULS #### Point of Care testing , Platelet mean volume (Bld) [Entitic vol] 7.6 fL Normal 6.6-10.1 [facility] Comment on above: Performed By: #### G LULS #### Point of Care testing , Platelets (Bld) [#/Vol] 219 10*3/uL Normal 150-450 [facility] Comment on above: Performed By: #### G LULS #### Point of Care testing , RBC (Bld) [#/Vol] 4.56 10*6/uL Normal 3.90-5.60 [facility] Comment on above: Performed By: #### G LULS #### Point of Care testing , WBC (Bld) [#/Vol] 9.7 10*3/uL Normal 4.1-10.5 [facility] Comment on above: Performed By: #### G LULS #### Point of Care testing , ECH echo transthoracicon [facility] echo transthoracic [facility] [address] Echocardiogram Signed Patient: Nirmal Chaidez MR#: [id number] 9 : 1945 Acct:[id number] Age/Sex: 78 / M ADM Date: 06/19/24 Loc: Room: [address] [place] [address] Type: ADM IN Attending Dr: Stalin Miranda MD Ordering Provider: Michael Mullen MD Date of Service: 06/19/24 ECH/ECH echo transthoracic: syncope Copies to: Milo Cameron MD, FACC Michael Mullen MD Weight: 314 lb Performed [...] 06/19/24 1428 Signed By: Milo Cameron MD, [facility] 06/20/24 1410 Normal [facility] Folate [Mass/volume] in Seru m or PlasmaOrdered By: Stalin Miranda on 06-19-2024 Folate [Mass/Vol] 7.4 ng/mL >5.9 [facility] Comment on above: Folate reference ran ge: >5.9 ng/mlThe WHO technical consultation on folate and vitamin [id number] has determined that folate concentrations lessthan 4 ng/ml are considered deficient. Glucose Poct Glucometerson 0 06-19-2024 Glucose [Mass/Vol] 104 mg/dL Normal [facility] Comment on above: Result Comment: [place] [facility] Glucose Reference Range is dependent on time and content of last meal. Glucose of more than 200 mg/dL in a nonstressed, ambulatory subject supports the diagnosis of Diabetes Mellitus. PERFORMED BY: [place] [address] PATHOLOGIST SUPERVISOR [employer]IG[employer]KING DEPARTMENT CORAL GOLD M.D. Performed By: #### C NICHOLAS, BMP #### [facility] [address] [place] [address] Commemt1 Glu2: Cleaned Meter Normal [facility] Comment on above: Result Comment: PERF ORMED BY: [facility] [address] [place] [address] PATHOLOGIST SUPERVISOR [employer] DEPARTMENT CORAL GOLD M.D. Performed By: #### C NICHOLAS, BMP #### [facility] [address] [place] [address] Glucose [Mass/Vol] 109 mg/dL Normal [facility] Comment on above: Result Comment: [place] Glucose Reference Range is dependent on time and content of last meal. Glucose of more than 200 mg/dL in a nonstressed, ambulatory subject supports the diagnosis of Diabetes Mellitus. Performed By: #### C BC, BMP #### [address] Commemt1 Glu2: Cleaned Meter Normal [facility] Comment on above: Result Comment: PERF ORMED BY: [facility] [address] [place] [address] PATHOLOGIST SUPERVISOR [employer] DEPARTMENT CORAL GOLD M.D. Performed By: #### G LULS #### Point of Care testing , Glucose [Mass/Vol] 119 mg/dL Normal [facility] Comment on above: Result Comment: [place] Glucose Reference Range is dependent on time and content of last meal. Glucose of more than 200 mg/dL in a nonstressed, ambulatory subject supports the diagnosis of Diabetes Mellitus. Performed By: #### G LULS #### Point of Care testing , Glucose [Mass/Vol] 116 mg/dL Normal [facility] Comment on above: Result Comment: [place] Glucose Reference Range is dependent on time and content of last meal. Glucose of more than 200 mg/dL in a nonstressed, ambulatory subject supports the diagnosis of Diabetes Mellitus. PERFORMED BY: [place] [address] PATHOLOGIST SUPERVISOR [employer] DEPARTMENT CORAL GOLD M.D. Performed By: #### G LULS #### Point of Care testing , Glucose mean value [Mass/vol ume] in Blood Estimated from glycated hemoglobinOrdered By: Stalin Miranda on 06-19-2024 Average glucose Estimated from glycated hemoglobin (Bld) [Mass/Vol] 183 mg/dL [facility] Hemoglobin A1c percentageOrd ered By: Stalin Miranda on 06-19-2024 HbA1c (Bld) [Mass fraction] 8.0 % High 4.3-5.6 [facility] Comment on above: Increased risk for d iabetes: 5.7 - 6.4diabetes: >6.4glycemic control for adults with diabetes: <7.0 Result Comment: Incr eased risk for diabetes: 5.7 - 6.4 diabetes: >6.4 glycemic control for adults with diabetes: <7.0 Performed By: #### G LULS #### Point of Care testing , Partial Thromboplastin Timeo n 06-19-2024 aPTT Coag (Bld) [Time] 38.4 s High 25.1-36.5 Th e [facility] Comment on above: Result Comment: A he matocrit value greater than 55% may lead to inaccurate results in coagulation testing. Patients having hematocrit values >55% require a special collection tube for coagulation studies. Please contact the laboratory at [phone] for redraw instructions. PERFORMED BY: [facility] [address] [place] [address] PATHOLOGIST SUPERVISOR [employer] DEPARTMENT CORAL GOLD M.D. Performed By: #### G LULS #### Point of Care testing , Prothrombin Time INRon 06-19 INR Coag (PPP) [Relative time] 2.4 {INR} Normal [facility] Comment on above: Result Comment: [...] (PPP) [Time] 27.1 s High 9.0-12.9 [facility] Comment on above: Result Comment: A he matocrit value greater than 55% may lead to inaccurate results in coagulation testing. Patients having hematocrit values >55% require a special collection tube for coagulation studies. Please contact the laboratory at [phone] for redraw instructions. Performed By: #### G LULS #### Point of Care testing , Thyrotropin [Units/volume] i n Serum or PlasmaOrdered By: Stalin Miranda on 06-19-2024 TSH Qn 2.14 m[IU]/L 0.45-5.33 [facility] Comment on above: Performed By: #### G LULS #### Point of Care testing , Troponin I High Sensitivityo n 06-19-2024 Troponin I High Sensitivity 27.6 pg/mL High 0.0-20.0 [facility] Comment on above: Result Comment: PERF ORMED BY: [facility] [address] [place] [address] PATHOLOGIST SUPERVISOR [employer] DEPARTMENT CORAL GOLD M.D. Performed By: #### G LULS #### Point of Care testing , Troponin I.cardiac [Mass/vol ume] in Serum or Plasma by Detection limit <= 0.01 ng/Ordered By: Stalin Miranda on 06-19-2024 Troponin I.cardiac DL <= 0.01 ng/mL [Mass/Vol] 27.6 pg/mL High 0.0-20.0 [facility] Vit. B12/Folate Profileon Folate 7.4 ng/mL Normal >5.9 [facility] Comment on above: Result Comment: Olinda te reference range: >5.9 ng/ml The WHO technical consultation on folate and vitamin b12 deficiencies has determined that folate concentrations less than 4 ng/ml are considered deficient. Performed By: #### G LULS #### Point of Care testing , Vitamin B12 ser/plasOrdered By: Stalin Miranda on 06-19-2024 Cobalamin (Vitamin B12) [Mass/Vol] 188 pg/mL 180-914 [facility] Comment on above: Performed By: #### G LULS #### Point of Care testing , Vitamin D 25 Hydroxy Totalon 06-19-2024 Vitamin D 25 Hydroxy Total 26.8 ng/mL Low 30-100 [facility] Comment on above: Result Comment: MARYURI MIN D STATUS 25(OH)VITAMIN D RANGE (ng/mL) Deficient <20 Insufficient 20 to <30 Sufficient 30 to 100 Reference: Manuela MF,Sharad NC, [place] TOVAR, et al. Evaluation,treatment, and prevention of vitamin D deficiency; an Endocrine Society clinical practice guideline. JCEM. 2010; 96(7):1911-30. PERFORMED BY: [facility] [address] [place] [address] PATHOLOGIST SUPERVISOR [employer]IGAR[employer]KING DEPARTMENT CORAL GOLD M.D. Performed By: #### G QUE #### Point of Care testing , Vitamin D+Metabolites [Mass/ volume] in Serum or PlasmaOrdered By: Stalin Miranda on 06-19-2024 Vitamin D+Metabolites [Mass/Vol] 26.8 ng/mL Low 30-100 [facility] Comment on above: VITAMIN D STATUS 25( [place])VITAMIN D RANGE (ng/mL) Deficient <20 Insufficient 20 to <30Sufficient 30 to 100Reference: Manuela MF,Sharad LUGO, [place] TOVAR, et al. Evaluation,treatment, and prevention of vitamin D deficiency; an Endocrine Society clinical practice guideline. JCEM. 2010; 96(7):1911-30. Alanine aminotransferase [En zymatic activity/volume] in Serum or PlasmaOrdered By: Domenico Betancourt on 06-18-2024 ALT [Catalytic activity/Vol] 8 U/L 7-52 [facility] Comment on above: Performed By: #### C BC, BMP #### [facility] [address] [place] [id number] [place] Albumin [Mass/volume] in Ser um or Plasma by Bromocresol green (BCG) dye binding methoOrdered By: Domenico Betancourt on 06-18-2024 Albumin BCG dye [Mass/Vol] 3.9 g/dL 3.5-5.7 [facility] Alkaline phosphatase [Enzyma tic activity/volume] in Serum or PlasmaOrdered By: Domenico Betancourt on 06-18-2024 ALP [Catalytic activity/Vol] 85 U/L 34-104 [facility] Comment on above: Performed By: #### C BC, BMP #### [facility] [address] [place] [address] [place] Aspartate aminotransferase [ Enzymatic activity/volume] in Serum or PlasmaOrdered By: Domenico Betancourt on 06-18-2024 AST [Catalytic activity/Vol] 11 U/L Low 13-39 [facility] Comment on above: Performed By: #### C BC, BMP #### [facility] [address] [place] [address] [place] Automated basophil %Ordered By: Domenico Betancourt on 06-18-2024 Basophils/100 WBC (Bld) 0.6 % Normal . [facility] Comment on above: Performed By: #### C BC, BMP #### [address] Automated basophil countOrde red By: Domenico Serafin on 06-18-2024 Basophils (Bld) [#/Vol] 0.1 10*3/uL Normal 0.0-0.2 [facility] Comment on above: Result Comment: PERF ORMED BY: [place] [address] PATHOLOGIST SUPERVISOR [employer]AR[employer] MAKING DEPARTMENT CORAL GLOD M.D. Performed By: #### C BC, BMP #### [address] Automated blood monocyte cou ntOrdered By: Domenico Betancourt on 06-18-2024 Monocytes (Bld) [#/Vol] 0.7 10*3/uL Normal 0.0-0.8 [facility] Comment on above: Performed By: #### C BC, BMP #### [address] Automated eosinophil %Ordere d By: Domenicomathew Betancourt on 06-18-2024 Eosinophils/100 WBC (Bld) 1.1 % Normal . [facility] Comment on above: Performed By: #### C BC, BMP #### [address] Automated eosinophil countOr dered By: Domenico Serafin on 06-18-2024 Eosinophils (Bld) [#/Vol] 0.1 10*3/uL Normal 0.0-0.45 [facility] Comment on above: Performed By: #### C BC, BMP #### [address] Automated monocyte %Ordered By: Domenico Betancourt on 06-18-2024 Monocytes/100 WBC (Bld) 5.6 % Normal . [facility] Comment on above: Performed By: #### C BC, BMP #### [address] Automated neutrophil %Ordere d By: Domenico Betancourt on 06-18-2024 Neutrophils/100 WBC (Bld) 73.9 % Normal . [facility] Comment on above: Performed By: #### C BC, BMP #### [address] BNP ser/plasOrdered By: Edgardo Betancourt on 06-18-2024 Natriuretic peptide B (Bld) [Mass/Vol] 50.0 pg/mL 5-100 [facility] Comment on above: Result Comment: PERF ORMED BY: [place] [address] PATHOLOGIST SUPERVISOR [employer] DEPARTMENT CORAL GOLD M.D. Performed By: #### C BC, BMP #### [address] Bacteria [Presence] in Urine by AutomatedOrdered By: Domenico Betancourt on 06-18-2024 Bacteria Auto Ql (U) None seen [HPF] None Seen [facility] Basic Metabolic Panelon 05-22 Creatinine Clr Calc Pharmacy 59.12 Normal [facility] Comment on above: Performed By: #### C BC, BMP #### [address] GFR/1.73 sq M.predicted MDRD (S/P/Bld) [Vol rate/Area] 51.445 mL/min/{1.73_m2} Normal [facility] Comment on above: Performed By: #### C BC, BMP #### [address] Bilirubin Test strip Ql (U)O rdered By: Domenico Betancourt on 06-18-2024 Bilirubin Ql (U) Negative Negative [facility] Bilirubin.direct [Mass/volum e] in Serum or PlasmaOrdered By: Domenico Betancourt on 06-18-2024 Bilirubin.direct [Mass/Vol] 0.20 mg/dL High 0.03-0.18 [facility] Bilirubin.total [Mass/volume ] in Serum or PlasmaOrdered By: Domenico Serafin on 06-18-2024 Bilirubin [Mass/Vol] 0.6 mg/dL 0.3-1.0 [facility] Comment on above: Performed By: #### C BC, BMP #### [facility] [address] COVID CepheidOrdered By: Frantz Betancourt on 06-18-2024 SARS-CoV-2 (COVID-19) Ab IA Ql Negative Negative [facility] Comment on above: This is a duplicate Cepheid Xpert Xpress CoV-2/Flu/RSV Plus RNA by RT-PCR result to be used for statistical tracking purpose only. SARS-CoV-2 (COVID-19) RNA NA+probe Ql (Unsp spec) [facility] COVID-19 / Flu A/B / RSV PCR [...] or Cepheid Disclaimer revoked sooner. PERFORMED BY: [place] [address] PATHOLOGIST SUPERVISOR [employer] MAKING DEPARTMENT CORAL GOLD M.D. Normal [facility] Comment on above: Performed By: #### C , [facility] #### [address] abdomen pelvis wo conon 0 06-18-2024 CT abdomen pelvis wo con [facility] Main [place] [address] [place] [address] CT Scan Report Signed Patient: Nirmal Chaidez MR#: [id number] 9 : 1945 Acct:[id number] Age/Sex: 78 / M ADM Date: 06/18/24 Loc: ER Room: Type: [facility] ER Attending Dr: Copies to: Domenico Betancourt [...] Norberto Villalta M.D.06/18/2024 5:11 PM Dictation Location: [place] [address] Transcribed By: [facility] 06/18/24 1711 Dictated By: Norberto [place] II, MD 06/18/241703 Signed By: 06/18/24 171 Normal [facility] Calcium [Mass/volume] in Ser um or PlasmaOrdered By: Domenico Betancourt on 06-18-2024 Calcium [Mass/Vol] 9.7 mg/dL Normal 8.6-10.3 [facility] Comment on above: Performed By: #### C BC, BMP #### [address] Carbon dioxide, total [Moles /volume] in Serum or PlasmaOrdered By: Domenico Betancourt on 06-18-2024 CO2 [Moles/Vol] 25.8 mmol/L Normal 21.0-31.0 [facility] Comment on above: Performed By: #### C BC, BMP #### [address] Cepheid COVID PCR Negativeon 06-18-2024 SARS-CoV-2 (COVID-19) RNA NA+probe Ql (Unsp spec) Negative Normal Negative [facility] Comment on above: Result Comment: This is a duplicate Cepheid Xpert Xpress CoV-2/Flu/RSV Plus RNA by RT-PCR result to be used for statistical tracking purpose only. PERFORMED BY: [place] [address] PATHOLOGIST SUPERVISOR [employer] DEPARTMENT CORAL GOLD M.D. Performed By: #### C BC, BMP #### [address] Chloride [Moles/volume] in S karla or PlasmaOrdered By: Domenico Betancourt on 06-18-2024 Chloride [Moles/Vol] 93 mmol/L Low 98-107 [facility] Comment on above: Performed By: #### C BC, BMP #### [address] Color of Urine by AutoOrdere d By: Domenico Betancourt on 06-18-2024 Color (U) Light-yellow Yellow [facility] Comment on above: Order Comment: Name Collection Type:: Clean-Voided Midstream Performed By: #### C BC, BMP #### [address] Complete Blood Count Auto Di ffon 06-18-2024 Mean Corpuscular HGB Conc 32.2 g/dL Low 32.5-35.6 [facility] Comment on above: Performed By: #### C BC, BMP #### [address] Monocytes/100 WBC (Bld) 19.75 % Normal 0.00-20.00 [facility] Comment on above: Performed By: #### C BC, BMP #### [place] [address] [place] NRBC% 0.1 /100{WBC} Normal 0-0.5 [facility] Comment on above: Performed By: #### C BC, BMP #### [facility] [address] Creatinine [Mass/volume] in Serum or PlasmaOrdered By: Domenico Betancourt on 06-18-2024 Creatinine [Mass/Vol] 1.40 mg/dL High 0.70-1.30 [facility] Comment on above: Performed By: #### C BC, BMP #### [facility] [address] Dipstick and Microscopicon 0 06-18-2024 Bacteria,Urine None Seen Normal None Seen [facility] Comment on above: Order Comment: Name Collection Type:: Clean-Voided Midstream Performed By: #### C BC, BMP #### [facility] [address] Bilirubin,Urine Negative Normal Negative [facility] Comment on above: Order Comment: Name Collection Type:: Clean-Voided Midstream Performed By: #### C BC, BMP #### [address] Glucose Ql (U) Normal Normal Normal [facility] Comment on above: Order Comment: Name Collection Type:: Clean-Voided Midstream Performed By: #### C BC, BMP #### [facility] [address] Hyaline Casts,Urine 0-8 Normal 0-8 [facility] Comment on above: Order Comment: Name Collection Type:: Clean-Voided Midstream Performed By: #### C BC, BMP #### [facility] [address] [place] [address] [place] Mucus,Urine Rare Normal [facility] Comment on above: Order Comment: Name Collection Type:: Clean-Voided Midstream Result Comment: PERF ORMED BY: [place] [address] PATHOLOGIST SUPERVISOR [employer]IGAR[employer] MAKING DEPARTMENT CORAL GOLD M.D. Performed By: #### C BC, BMP #### [place] [address] [place] Nitrite,Urine Negative Normal Negative [facility] Comment on above: Order Comment: Name Collection Type:: Clean-Voided Midstream Performed By: #### C BC, BMP #### [address] Occult Blood,Urine 2+ High Negative [facility] Comment on above: Order Comment: Name Collection Type:: Clean-Voided Midstream Result Comment: PERF ORMED BY: [place] [address] PATHOLOGIST SUPERVISOR [employer]IGAR[employer] MAKING DEPARTMENT CORAL GOLD M.D. Performed By: #### C BC, BMP #### [place] [address] [place] Protein,Urine Negative Normal Negative [facility] Comment on above: Order Comment: Name Collection Type:: Clean-Voided Midstream Performed By: #### C BC, BMP #### [address] RBC,Urine 20-49 High 0-4 [facility] Comment on above: Order Comment: Name Collection Type:: Clean-Voided Midstream Performed By: #### C BC, BMP #### [address] Specificy Menan,Urine 1.014 Normal 1.00 1-1.03 0 [facility] Comment on above: Order Comment: Name Collection Type:: Clean-Voided Midstream Performed By: #### C BC, BMP #### [place] [address] [place] Squamous Epithelial Cell,Urine 1-2 Normal 0-2 [facility] Comment on above: Order Comment: Name Collection Type:: Clean-Voided Midstream Performed By: #### C BC, BMP #### [address] Urobilinogen,Urine Normal Normal Normal [facility] Comment on above: Order Comment: Name Collection Type:: Clean-Voided Midstream Performed By: #### C BC, BMP #### [facility] [address] WBC,Urine 1-2 Normal 0-4 [facility] Comment on above: Order Comment: Name Collection Type:: Clean-Voided Midstream Performed By: #### C BC, BMP #### [facility] [address] [place] [id number] [facility] ECG 12 lead ECGon 06-18-2024 ECG 12 lead ECG [facility] Main [place] [address] [place] [address] Electrocardiograph Report Signed Patient: Nirmal Chaidez MR#: [id number] 9 : 1945 Acct:[id number] Age/Sex: 78 / M ADM Date: 06/19/24 Loc: Room: [address] [place] [address] Type: ADM IN Attending Dr: Stalin Miarnda MD Ordering Provider: Domenico Betancourt DO Date [...] ischemia Abnormal ECG Confirmed by RAKESH OCONNELL [facility], MILO ([id number]) on 06/20/2024 4:29:19 PM Referred By: Electronically Signed By: MILO CAMERON MD [facility] Transcribed By: MUS Signed By Milo Cameron MD, [facility] 06/20/24 0449 Normal [facility] Epithelial cells.squamous [# /area] in Urine sediment by Automated countOrdered By: Domenico Betancourt on 06-18-2024 Epithelial cells.squamous Auto (Urine sed) [#/Area] 1-2 [HPF] 0-2 [facility] Erythrocyte distribution wid th [Ratio] by Automated countOrdered By: Domenico Betancourt on 06-18-2024 Erythrocyte distribution width (RBC) [Ratio] 16.8 % High 12.0-14.8 [facility] Comment on above: Performed By: #### C BC, BMP #### [address] Erythrocytes [#/area] in Uri ne sediment by Automated countOrdered By: Domenico Betancourt on 06-18-2024 RBC Auto (Urine sed) [#/Area] 20-49 [HPF] High 0-4 [facility] Erythrocytes [#/volume] in B lood by Automated countOrdered By: Domenico Betancourt on 06-18-2024 RBC (Bld) [#/Vol] 5.29 10*6/uL Normal 3.90-5.60 [facility] Comment on above: Performed By: #### C BC, BMP #### [address] Glucose Poct Glucometerson 0 06-18-2024 Glucose [Mass/Vol] 119 mg/dL Normal [facility] Comment on above: Result Comment: Comptche om Glucose Reference Range is dependent on time and content of last meal. Glucose of more than 200 mg/dL in a nonstressed, ambulatory subject supports the diagnosis of Diabetes Mellitus. PERFORMED BY: [place] [address] PATHOLOGIST SUPER[employer] M.D. Performed By: #### C BC, BMP #### [address] Glucose [Mass/volume] in Ser um or PlasmaOrdered By: Domenico Betancourt on 06-18-2024 Glucose [Mass/Vol] 158 mg/dL High 70-100 [facility] Comment on above: ADA recommended refe rence rangeRandom Glucose Reference Range is dependent on time and content of last meal. Glucose of more than 200 mg/dL in a nonstressed, ambulatory subject supports the diagnosis of Diabetes Mellitus. Result Comment: Comptche om Glucose Reference Range is dependent on time and content of last meal. Glucose of more than 200 mg/dL in a nonstressed, ambulatory subject supports the diagnosis of Diabetes Mellitus. ADA recommended reference range Performed By: #### C BC, BMP #### [address] Glucose [Mass/volume] in Uri ne by Test stripOrdered By: Domenico Betancourt on 06-18-2024 Glucose Test strip (U) [Mass/Vol] Normal mg/dL Normal [facility] Hematocrit [Volume Fraction] of Blood by Automated countOrdered By: Domenico Betancourt on 06-18-2024 Hematocrit (Bld) [Volume fraction] 45.6 % Normal 38.8-50.0 [facility] Comment on above: Performed By: #### C BC, BMP #### [address] Hemoglobin Test strip Ql (U) Ordered By: Domenico Betancourt on 06-18-2024 Hemoglobin Ql (U) 2+ High Negative [facility] Hemoglobin [Mass/volume] in BloodOrdered By: Domenico Betancourt on 06-18-2024 Hemoglobin (Bld) [Mass/Vol] 14.7 g/dL Normal 13.0-17.0 [facility] Comment on above: Performed By: #### C BC, BMP #### [address] Hepatic Panelon 06-18-2024 Albumin [Mass/Vol] 3.9 g/dL Normal 3.5-5.7 [facility] Comment on above: Performed By: #### C BC, BMP #### [address] Bilirubin,Indirect 0.4 mg/dL Normal [facility] Comment on above: Performed By: #### C BC, BMP #### [address] Bilirubin.indirect [Mass/Vol] 0.20 mg/dL High 0.03-0.18 [facility] Comment on above: Performed By: #### C BC, BMP #### [address] Hyaline casts [#/area] in Ur ine sediment by Automated countOrdered By: Domenico Betancourt on 06-18-2024 Hyaline casts Auto (Urine sed) [#/Area] 0-8 [LPF] 0-8 [facility] Ketones [Presence] in Urine by Test stripOrdered By: Domenico Betancourt on 06-18-2024 Ketones Ql (U) Negative Negative [facility] Comment on above: Order Comment: Name Collection Type:: Clean-Voided Midstream Performed By: #### C BC, BMP #### [facility] [address] [place] [address] [place] Leukocyte esterase [Presence ] in Urine by Test stripOrdered By: Domenico Betancourt on 06-18-2024 Leukocyte esterase Test strip Ql (U) Negative Negative [facility] Comment on above: Order Comment: Name Collection Type:: Clean-Voided Midstream Performed By: #### C BC, BMP #### [place] [address] [place] Leukocytes [#/area] in Urine sediment by Automated countOrdered By: Domenico Betancourt on 06-18-2024 WBC Auto (Urine sed) [#/Area] 1-2 [HPF] 0-4 [facility] Leukocytes [#/volume] correc faraz for nucleated erythrocytes in Blood by Automated counOrdered By: Domenico Betancourt on 06-18-2024 WBC corrected for nucl RBC Auto (Bld) [#/Vol] 11.6 10*3/uL High 4.1-10.5 [facility] Leukocytes [#/volume] in Blo od by Automated countOrdered By: Domenico Betancourt on 06-18-2024 WBC (Bld) [#/Vol] 11.6 10*3/uL High 4.1-10.5 [facility] Comment on above: Performed By: #### C BC, BMP #### [facility] [address] [place] [address] [place] Lipase [Enzymatic activity/v olume] in Serum or PlasmaOrdered By: Domenico Betancourt on 06-18-2024 Lipase [Catalytic activity/Vol] 18.0 U/L 11.0-82.0 [facility] Comment on above: Result Comment: PERF ORMED BY: [place] [phone] PATHOLOGIST SUPER[employer] M.D. Performed By: #### C BC, BMP #### [address] Lymphocytes [#/volume] in Bl ood by Automated countOrdered By: Domenico Betancourt on 06-18-2024 Lymphocytes (Bld) [#/Vol] 2.2 10*3/uL Normal 1.00-4.8 [facility] Comment on above: Performed By: #### C BC, BMP #### [place] [address] [place] Lymphocytes/100 leukocytes i n Blood by Automated countOrdered By: Domenico Betancourt on 06-18-2024 Lymphocytes/100 WBC (Bld) 18.8 % Normal . [facility] Comment on above: Performed By: #### C BC, BMP #### [address] MCH [Entitic mass] by Automa faraz countOrdered By: Domenico Betancourt on 06-18-2024 MCH (RBC) [Entitic mass] 27.8 pg Normal 27.5-35.2 [facility] Comment on above: Performed By: #### C BC, BMP #### [address] MCHC Auto (RBC) [Mass/Vol]Or dered By: Domenico Betancourt on 06-18-2024 MCHC (RBC) [Mass/Vol] 32.2 g/dL Low 32.5-35.6 [facility] MCV [Entitic volume] by Auto mated countOrdered By: Domenico Betancourt on 06-18-2024 MCV (RBC) [Entitic vol] 86.2 fL Normal 83.5-101 [facility] Comment on above: Performed By: #### C BC, BMP #### [place] [address] [place] Monocyte distribution width [Entitic volume] in Blood by AutomatedOrdered By: Domenico Betancourt on 06-18-2024 Monocyte distribution width Auto (Bld) [Entitic vol] 19.75 % 0.00-20.00 [facility] Mucus [Presence] in Urine by AutomatedOrdered By: Domenico Betancourt on 06-18-2024 Mucus Auto Ql (U) Rare [LPF] [facility] Neutrophils [#/volume] in Bl ood by Automated countOrdered By: Domenico Betancourt on 06-18-2024 Neutrophils (Bld) [#/Vol] 8.6 10*3/uL High 1.8-7.7 [facility] Comment on above: Performed By: #### C NICHOLAS, BMP #### [facility] [address] Nitrite Test strip Ql (U)Ord ered By: Domenico Betancourt on 06-18-2024 Nitrite Ql (U) Negative Negative [facility] No Panel InformationOrdered By: Domenico Betancourt on 06-18-2024 Estimated GFR (CKD-EPI) 51.445 mL/Min [facility] Creatinine Clearance (Chem 59.12 [facility] Nucleated erythrocytes [Pres ence] in Blood by Automated countOrdered By: Domenico Betancourt on 06-18-2024 Nucleated RBC Auto Ql (Bld) 0.1 /100{WBC} 0-0.5 [facility] Platelet mean volume [Entiti c volume] in Blood by Automated countOrdered By: Domenico Betancourt on 06-18-2024 Platelet mean volume (Bld) [Entitic vol] 8.1 fL Normal 6.6-10.1 [facility] Comment on above: Performed By: #### C BC, BMP #### [facility] [address] [place] [address] [place] Platelets [#/volume] in Bloo d by Automated countOrdered By: Domenico Betancourt on 06-18-2024 Platelets (Bld) [#/Vol] 255 10*3/uL Normal 150-450 [facility] Comment on above: Performed By: #### C BC, BMP #### [facility] [address] [place] [id number] [place] Potassium [Moles/volume] in Serum or PlasmaOrdered By: Domenico Betancourt on 06-18-2024 Potassium [Moles/Vol] 4.3 mmol/L Normal 3.5-5.1 [facility] Comment on above: Performed By: #### C NICHOLAS, BMP #### [place] [id number] [facility] Protein Test strip (U) [Mass /Vol]Ordered By: Domenico Mcclurearthy on 06-18-2024 Protein (U) [Mass/Vol] Negative Negative [facility] Protein [Mass/volume] in Ser um or PlasmaOrdered By: Domenico Serafin on 06-18-2024 Protein [Mass/Vol] 7.4 g/dL 6.4-8.9 [facility] Comment on above: Performed By: #### C NICHOLAS, BMP #### [place] [id number] [facility] Prothrombin Time INRon 06-18 INR Coag (PPP) [Relative time] 2.5 {INR} Normal [facility] Comment on above: Result Comment: [...] heart valves: 3 - 4.5 PERFORMED BY: [place] [address] PATHOLOGIST SUPER[employer] M.D. Performed By: #### C NICHOLAS, BMP #### [place] [id number] [facility] PT Coag (PPP) [Time] 28.6 s High 9.0-12.9 [facility] Comment on above: Result Comment: A he matocrit value greater than 55% may lead to inaccurate results in coagulation testing. Patients having hematocrit values >55% require a special collection tube for coagulation studies. Please contact the laboratory at [phone] for redraw instructions. Performed By: #### C NICHOLAS, BMP #### [address] Serum globulin measurement b y calculation (mass/volume)Ordered By: Domenico Betancourt on 06-18-2024 Globulin (S) [Mass/Vol] 3.5 g/dL [facility] Comment on above: Performed By: #### C NICHOLAS, BMP #### [address] Serum or plasma albumin/glob ulin mass ratioOrdered By: Domenico Betancourt on 06-18-2024 Albumin/Globulin [Mass ratio] 1.1 {ratio} [facility] Comment on above: Performed By: #### C NICHOLAS, BMP #### [address] Serum or plasma anion gap de terminationOrdered By: Domenico Betancourt on 06-18-2024 Anion gap [Moles/Vol] 15.5 mmol/L High 6.0-15.0 [facility] Comment on above: Performed By: #### C NICHOLAS, BMP #### [address] Serum or plasma non-glucuron idated bilirubin measurement (mass/volume)Ordered By: Domenico Betancourt on 06-18-2024 Bilirubin.indirect [Mass/Vol] 0.4 mg/dL [facility] Sodium [Moles/volume] in Ser um or PlasmaOrdered By: Domenico Betancourt on 06-18-2024 Sodium [Moles/Vol] 130 mmol/L Low 136-145 [facility] Comment on above: Performed By: #### C NICHOLAS, BMP #### [address] Specific gravity Test strip (U) [Rel density]Ordered By: Domenico Betancourt on 06-18-2024 Specific gravity (U) [Rel density] 1.014 1.001-1.03 0 [facility] Troponin I High Sensitivityo n 06-18-2024 Troponin I High Sensitivity 20.8 pg/mL High 0.0-20.0 [facility] Comment on above: Result Comment: PERF ORMED BY: [place] [address] PATHOLOGIST SUPER[employer] M.D. Performed By: #### C BC, BMP #### [place] [id number] [facility] Troponin I High Sensitivity 20.7 pg/mL High 0.0-20.0 [facility] Comment on above: Result Comment: PERF ORMED BY: [place] [address] PATHOLOGIST SUPER[employer] M.D. Performed By: #### C NICHOLAS, BMP #### [place] [id number] [facility] Troponin I.cardiac [Mass/vol ume] in Serum or Plasma by Detection limit <= 0.01 ng/Ordered By: Domenico Betancourt on 06-18-2024 Troponin I.cardiac DL <= 0.01 ng/mL [Mass/Vol] 20.8 pg/mL High 0.0-20.0 [facility] Urea nitrogen [Mass/volume] in Serum or PlasmaOrdered By: Domenico Betancourt on 06-18-2024 Urea nitrogen [Mass/Vol] 41 mg/dL High 7-25 [facility] Comment on above: Performed By: #### C NICHOLAS, BMP #### [place] [id number] [facility] Urine appearanceOrdered By: Domenico Betancourt on 06-18-2024 Appearance (U) Clear Clear [facility] Comment on above: Order Comment: Name Collection Type:: Clean-Voided Midstream Performed By: #### C BC, BMP #### [place] [id number] [facility] Urobilinogen Test strip (U) [Mass/Vol]Ordered By: Domenico Betancourt on 06-18-2024 Urobilinogen (U) [Mass/Vol] Normal mg/dL Normal [facility] XR chest 1V portableon 06-18 XR chest 1V portable [facility] Main [place] [address] [place], [place] [id number] XRay Report Signed Patient: Nirmal Chaidez MR#: [id number] 9 : 1945 Acct:[id number] Age/Sex: 78 / M ADM Date: 06/18/24 [...] Norberto Villalta M.D.06/18/2024 4:24 PM Dictation Location: [place] [address] Transcribed By: [facility] 06/18/241623 Dictated By: Norberto Villalta II, MD 06/18/241622 Signed By: 06/18/241623 Normal [facility] pH of Urine by Test stripOrd ered By: Domenico Betancuort on 06-18-2024 pH (U) 5.5 [pH] 5.0-9.0 [facility] Comment on above: Order Comment: Name Collection Type:: Clean-Voided Midstream Performed By: #### C BC, BMP #### [facility] [address] [place] [id number] [facility] Lab Reportson 04-25-2024 Lab Reports [id number] Normal [facility] RAD - MISCon 04-25-2024 RAD - MISC [id number] Normal [facility] Alanine aminotransferase [En zymatic activity/volume] in Serum or PlasmaOrdered By: Marva Soriano on 04-23-2024 ALT [Catalytic activity/Vol] 8 U/L Normal 7-52 [facility] Comment on above: Performed By: #### C BC, BMP #### [address] Albumin [Mass/volume] in Ser um or Plasma by Bromocresol green (BCG) dye binding methoOrdered By: Marva Soriano on 04-23-2024 Albumin BCG dye [Mass/Vol] 3.7 g/dL 3.5-5.7 [facility] Alkaline phosphatase [Enzyma tic activity/volume] in Serum or PlasmaOrdered By: Marva Soriano on 04-23-2024 ALP [Catalytic activity/Vol] 79 U/L Normal 34-104 [facility] Comment on above: Result Comment: PERF ORMED BY: [place] [address] PATHOLOGIST SUPER[employer] M.D. Performed By: #### C BC, BMP #### [address] Aspartate aminotransferase [ Enzymatic activity/volume] in Serum or PlasmaOrdered By: Marva Soriano on 04-23-2024 AST [Catalytic activity/Vol] 11 U/L Low 13-39 [facility] Comment on above: Performed By: #### C BC, BMP #### [address] BNP ser/plasOrdered By: Jeremías Soriano on 04-23-2024 Natriuretic peptide B (Bld) [Mass/Vol] 38.0 pg/mL Normal 5-100 [facility] Comment on above: Result Comment: PERF ORMED BY: [place] [address] PATHOLOGIST SUPER[employer] M.D. Performed By: #### C BC, BMP #### [address] Bilirubin.total [Mass/volume ] in Serum or PlasmaOrdered By: Marva Soriano on 04-23-2024 Bilirubin [Mass/Vol] 0.5 mg/dL Normal 0.3-1.0 [facility] Comment on above: Performed By: #### C BC, BMP #### [facility] [address] Calcium [Mass/volume] in Ser um or PlasmaOrdered By: Marva Soriano on 04-23-2024 Calcium [Mass/Vol] 9.4 mg/dL Normal 8.6-10.3 [facility] Comment on above: Performed By: #### C BC, BMP #### [facility] [address] Carbon dioxide, total [Moles /volume] in Serum or PlasmaOrdered By: Marva Soriano on 04-23-2024 CO2 [Moles/Vol] 28.4 mmol/L Normal 21.0-31.0 [facility] Comment on above: Performed By: #### C BC, BMP #### [place] [address] [place] Chloride [Moles/volume] in S karla or PlasmaOrdered By: Marva Soriano on 04-23-2024 Chloride [Moles/Vol] 97 mmol/L Low 98-107 [facility] Comment on above: Performed By: #### C BC, BMP #### [address] Comprehensive Metabolic Pane estrella 04-23-2024 Albumin [Mass/Vol] 3.7 g/dL Normal 3.5-5.7 [facility] Comment on above: Performed By: #### C BC, BMP #### [facility] [address] [place] [address] [place] GFR/1.73 sq M.predicted MDRD (S/P/Bld) [Vol rate/Area] 52.342 mL/min/{1.73_m2} Normal [facility] Comment on above: Performed By: #### C BC, BMP #### [place] [address] [place] Creatinine [Mass/volume] in Serum or PlasmaOrdered By: Marva Soriano on 04-23-2024 Creatinine [Mass/Vol] 1.38 mg/dL High 0.70-1.30 [facility] Comment on above: Performed By: #### C NICHOLAS, BMP #### [facility] [address] Glucose [Mass/volume] in Ser um or PlasmaOrdered By: Marva Soriano on 04-23-2024 Glucose [Mass/Vol] 226 mg/dL High 70-100 [facility] Comment on above: ADA recommended refe rence rangeRandom Glucose Reference Range is dependent on time and content of last meal. Glucose of more than 200 mg/dL in a nonstressed, ambulatory subject supports the diagnosis of Diabetes Mellitus. Result Comment: Comptche om Glucose Reference Range is dependent on time and content of last meal. Glucose of more than 200 mg/dL in a nonstressed, ambulatory subject supports the diagnosis of Diabetes Mellitus. ADA recommended reference range Performed By: #### C NICHOLAS, BMP #### [address] No Panel InformationOrdered By: Marva Soriano on 04-23-2024 Estimated GFR (CKD-EPI) 52.342 mL/Min [facility] Creatinine Clearance (Chem N/A [facility] Potassium [Moles/volume] in Serum or PlasmaOrdered By: Marva Soriano on 04-23-2024 Potassium [Moles/Vol] 3.9 mmol/L Normal 3.5-5.1 [facility] Comment on above: Performed By: #### C NICHOLAS, BMP #### [place] [address] [place] Protein [Mass/volume] in Ser um or PlasmaOrdered By: Marva Soriano on 04-23-2024 Protein [Mass/Vol] 7.1 g/dL Normal 6.4-8.9 [facility] Comment on above: Performed By: #### C NICHOLAS, BMP #### [address] Serum globulin measurement b y calculation (mass/volume)Ordered By: Marva Soriano on 04-23-2024 Globulin (S) [Mass/Vol] 3.4 g/dL Normal [facility] Comment on above: Performed By: #### C BC, BMP #### [address] Serum or plasma albumin/glob ulin mass ratioOrdered By: Marva Soriano on 04-23-2024 Albumin/Globulin [Mass ratio] 1.1 {ratio} Normal [facility] Comment on above: Performed By: #### C BC, BMP #### [address] Serum or plasma anion gap de terminationOrdered By: Marva Soriano on 04-23-2024 Anion gap [Moles/Vol] 13.5 mmol/L Normal 6.0-15.0 [facility] Comment on above: Performed By: #### C NICHOLAS, BMP #### [address] Sodium [Moles/volume] in Ser um or PlasmaOrdered By: Marva Soriano on 04-23-2024 Sodium [Moles/Vol] 135 mmol/L Low 136-145 [facility] Comment on above: Performed By: #### C BC, BMP #### [address] Urea nitrogen [Mass/volume] in Serum or PlasmaOrdered By: Marva Soriano on 04-23-2024 Urea nitrogen [Mass/Vol] 42 mg/dL High 7-25 [facility] Comment on above: Performed By: #### C BC, BMP #### [address] XR abdomen 1Von 04-23-2024 XR abdomen 1V [facility] Main [place] [address] [place] [address] XRay Report Signed Patient: Nirmal Chaidez MR#: [id number] 9 : 1945 Acct:[id number] Age/Sex: 78 / M ADM Date: 04/23/24 Loc: XD Room: Type: REG CLI Attending Dr: Marva VALADEZ Copies to: [place] [...] Ping Vora M.D.04/23/2024 5:03 PM Dictation Location: [place] [address] Transcribed By: [facility] 04/23/241702 Dictated By: Ping Vora MD 04/23/241700 Signed By: 04/23/[address] [facility] Consent for Treatmenton Consent for Treatment [id number] Normal [facility] Provider Letteron 12-29-2023 Provider Letter (Inserted Image. Cassi ble to display) December 29, 2023 NIRMAL CHAIDEZ [address] [place] [id number] : 1945 Dear Nirmal , We have [...] to this matter. Sincerely, [facility] [address] [facility], [place] [address] Normal [facility] Consent for Treatmenton 11-0 Consent for Treatment [id number] Normal [facility] Activated partial thrombopla stin time (aPTT) in platelet poor plasma by coagulation aOrdered By: Ran Addison on 05-14-2023 aPTT Coag (PPP) [Time] 33.4 s 25.1-36.5 [facility] Alanine aminotransferase [En zymatic activity/volume] in Serum or PlasmaOrdered By: Ran Addison on 05-14-2023 ALT [Catalytic activity/Vol] 8 U/L 7-52 [facility] Albumin [Mass/volume] in Ser um or Plasma by Bromocresol green (BCG) dye binding methoOrdered By: Ran Addison on 05-14-2023 Albumin BCG dye [Mass/Vol] 3.6 g/dL 3.5-5.7 [facility] Alkaline phosphatase [Enzyma tic activity/volume] in Serum or PlasmaOrdered By: Ran Addison on 05-14-2023 ALP [Catalytic activity/Vol] 87 U/L 34-104 [facility] Aspartate aminotransferase [ Enzymatic activity/volume] in Serum or PlasmaOrdered By: Ran Addison on 05-14-2023 AST [Catalytic activity/Vol] 13 U/L 13-39 [facility] Basophils Auto (Bld) [#/Vol] Ordered By: Ran Addison on 05-14-2023 Basophils (Bld) [#/Vol] 0.1 10*3/uL 0.0-0.2 [facility] Basophils/100 WBC Auto (Bld) Ordered By: Ran Addison on 05-14-2023 Basophils/100 WBC (Bld) 0.5 % . [facility] Bilirubin.total [Mass/volume ] in Serum or PlasmaOrdered By: Ran Addison on 05-14-2023 Bilirubin [Mass/Vol] 0.6 mg/dL 0.3-1.0 [facility] Calcium [Mass/volume] in Ser um or PlasmaOrdered By: Ran Addison on 05-14-2023 Calcium [Mass/Vol] 8.8 mg/dL 8.6-10.3 [facility] Carbon dioxide, total [Moles /volume] in Serum or PlasmaOrdered By: Ran Addison on 05-14-2023 CO2 [Moles/Vol] 25.7 mmol/L 21.0-31.0 [facility] Chloride [Moles/volume] in S karla or PlasmaOrdered By: Ran Addison on 05-14-2023 Chloride [Moles/Vol] 99 mmol/L 98-107 [facility] Creatinine [Mass/volume] in Serum or PlasmaOrdered By: Ran Addison on 05-14-2023 Creatinine [Mass/Vol] 1.70 mg/dL 0.70-1.30 [facility] Eosinophils Auto (Bld) [#/Vo l]Ordered By: Ran Addison on 05-14-2023 Eosinophils (Bld) [#/Vol] 0.2 10*3/uL 0.0-0.45 [facility] Eosinophils/100 WBC Auto (Bl d)Ordered By: Ran Addison on 05-14-2023 Eosinophils/100 WBC (Bld) 1.7 % . [facility] Erythrocyte distribution wid th Auto (RBC) [Ratio]Ordered By: Ran Addison on 05-14-2023 Erythrocyte distribution width (RBC) [Ratio] 15.7 % 12.0-14.8 [facility] Ethanol [Mass/volume] in Ser um or PlasmaOrdered By: Ran Addison on 05-14-2023 Ethanol [Mass/Vol] mg/dL [facility] Ethanol [Mass/Vol] TNP [facility] Comment on above: Test not performed Globulin Calc (S) [Mass/Vol] Ordered By: Ran Addison on 05-14-2023 Globulin (S) [Mass/Vol] 3.2 g/dL [facility] Glucose Glucometer (BldC) [M ass/Vol]Ordered By: Ran Addison on 05-14-2023 Glucose [Mass/Vol] 175 mg/dL [facility] Comment on above: Random Glucose Refer ence Range is dependent on time and content of last meal. Glucose of more than 200 mg/dL in a nonstressed, ambulatory subject supports the diagnosis of Diabetes Mellitus. Glucose [Mass/volume] in Ser um or PlasmaOrdered By: Ran Addison on 05-14-2023 Glucose [Mass/Vol] 156 mg/dL 70-100 [facility] Comment on above: ADA recommended refe rence rangeRandom Glucose Reference Range is dependent on time and content of last meal. Glucose of more than 200 mg/dL in a nonstressed, ambulatory subject supports the diagnosis of Diabetes Mellitus. Hematocrit Auto (Bld) [Volum e fraction]Ordered By: Ran Addison on 05-14-2023 Hematocrit (Bld) [Volume fraction] 40.1 % 38.8-50.0 [facility] Hemoglobin [Mass/volume] in BloodOrdered By: Ran Addison on 05-14-2023 Hemoglobin (Bld) [Mass/Vol] 13.0 g/dL 13.0-17.0 [facility] Laboratory - CoagulationOrde red By: Ran Addison on 05-14-2023 PT Coag (PPP) [Time] 26.6 s 9.0-12.9 [facility] Leukocytes [#/volume] correc faraz for nucleated erythrocytes in Blood by Automated counOrdered By: Ran Addison on 05-14-2023 WBC corrected for nucl RBC Auto (Bld) [#/Vol] 10.5 10*3/uL 4.1-10.5 [facility] Lymphocytes Auto (Bld) [#/Vo l]Ordered By: Ran Addison on 05-14-2023 Lymphocytes (Bld) [#/Vol] 1.6 10*3/uL 1.00-4.8 [facility] Lymphocytes/100 WBC Auto (Bl d)Ordered By: Ran Addison on 05-14-2023 Lymphocytes/100 WBC (Bld) 15.6 % . [facility] MCH Auto (RBC) [Entitic mass ]Ordered By: Ran Addison on 05-14-2023 MCH (RBC) [Entitic mass] 29.8 pg 27.5-35.2 [facility] MCHC Auto (RBC) [Mass/Vol]Or dered By: Ran Addison on 05-14-2023 MCHC (RBC) [Mass/Vol] 32.5 g/dL 32.5-35.6 [facility] MCV Auto (RBC) [Entitic vol] Ordered By: Ran Addison on 05-14-2023 MCV (RBC) [Entitic vol] 91.8 fL 83.5-101 [facility] Monocyte distribution width [Entitic volume] in Blood by AutomatedOrdered By: Ran Addison on 05-14-2023 Monocyte distribution width Auto (Bld) [Entitic vol] 24.22 % 0.00-20.00 [facility] Comment on above: For adults in ED, MD W > 20.0 may be associated with a higher risk of sepsis during the first 12 hrs of hospital admission Monocytes Auto (Bld) [#/Vol] Ordered By: Ran Addison on 05-14-2023 Monocytes (Bld) [#/Vol] 0.4 10*3/uL 0.0-0.8 [facility] Monocytes/100 WBC Auto (Bld) Ordered By: Ran Addison on 05-14-2023 Monocytes/100 WBC (Bld) 4.0 % . [facility] Neutrophils Auto (Bld) [#/Vo l]Ordered By: Ran Addison on 05-14-2023 Neutrophils (Bld) [#/Vol] 8.2 10*3/uL 1.8-7.7 [facility] Neutrophils/100 WBC Auto (Bl d)Ordered By: Ran Addison on 05-14-2023 Neutrophils/100 WBC (Bld) 78.2 % . [facility] No Panel InformationOrdered By: Ran Addison on 05-14-2023 Estimated GFR (CKD-EPI) 41.007 mL/Min [facility] Creatinine Clearance (Chem 50.02 [facility] Nucleated erythrocytes [Pres ence] in Blood by Automated countOrdered By: Ran Addison on 05-14-2023 Nucleated RBC Auto Ql (Bld) 0.1 /100{WBC} 0-0.5 [facility] Platelet mean volume Auto (B ld) [Entitic vol]Ordered By: Ran Addison on 05-14-2023 Platelet mean volume (Bld) [Entitic vol] 7.6 fL 6.6-10.1 [facility] Platelet poor plasma interna tional normalized ratio (INR) by coagulation assay (relatOrdered By: Ran Addison on 05-14-2023 INR Coag (PPP) [Relative time] 2.3 {INR} [facility] Comment on above: INR Therapeutic [...] 05-14-2023 Platelets (Bld) [#/Vol] 225 10*3/uL 150-450 [facility] Potassium [Moles/volume] in Serum or PlasmaOrdered By: Ran Addison on 05-14-2023 Potassium [Moles/Vol] 3.7 mmol/L 3.5-5.1 [facility] Protein [Mass/volume] in Ser um or PlasmaOrdered By: Ran Addison on 05-14-2023 Protein [Mass/Vol] 6.8 g/dL 6.4-8.9 [facility] RBC Auto (Bld) [#/Vol]Ordere d By: Ran Addison on 05-14-2023 RBC (Bld) [#/Vol] 4.36 10*6/uL 3.90-5.60 [facility] Serum or plasma albumin/glob ulin mass ratioOrdered By: Rna Addison on 05-14-2023 Albumin/Globulin [Mass ratio] 1.1 {ratio} [facility] Serum or plasma anion gap de terminationOrdered By: Ran Addison on 05-14-2023 Anion gap [Moles/Vol] 14.0 mmol/L 6.0-15.0 [facility] Sodium [Moles/volume] in Ser um or PlasmaOrdered By: Ran Addison on 05-14-2023 Sodium [Moles/Vol] 135 mmol/L 136-145 [facility] Troponin I.cardiac [Mass/vol ume] in Serum or Plasma by Detection limit <= 0.01 ng/Ordered By: Ran Addison on 05-14-2023 Troponin I.cardiac DL <= 0.01 ng/mL [Mass/Vol] 18.4 pg/mL 0.0-20.0 [facility] Urea nitrogen [Mass/volume] in Serum or PlasmaOrdered By: Ran Addison on 05-14-2023 Urea nitrogen [Mass/Vol] 38 mg/dL 7 [facility] WBC Auto (Bld) [#/Vol]Ordere d By: Ran Addison on 05-14-2023 WBC (Bld) [#/Vol] 10.5 10*3/uL 4.1-10.5 [facility] Tobacco Screening.on 023 Adult depression screening assessment No [facility] [employer] 250 DO Work Phone: Fall risk assessment a) No falls within the last year [facility] [employer] 250 DO Work Phone: Tobacco use status CPHS b) No M [facility] [employer] 250 DO Work Phone: GLYCOHEMOGLOBIN A1Con 2022 ADA RECOMMENDATION SEE BELOW Normal [facility] Comment on above: Result Comment: ADA RECOMMENDED LIMIT 4.0 - 6.0 ADA THERAPEUTIC TARGET < 7.0 ACTION SUGGESTED > 7.0 Performed By: #### A 1C #### [facility] [address] [place] [address] Dr. Cuco Gilliam Glucose [Mass/Vol] 177 mg/dL Normal [facility] Comment on above: Performed By: #### A 1C #### [facility] [address] [address] [address] Cuco Gilliam HbA1c (Bld) [Mass fraction] 7.8 % Critically high 4.5-6.2 [facility] Comment on above: Performed By: #### A 1C #### [facility] [address] [place] [address] Dr. Cuco Gilliam CBC AUTO DIFFon 10-28-2022 BASO # 0.0 103/ul Normal 0.0-0.1 [facility] Comment on above: Performed By: #### C BC #### [facility] [address] [address] [address] Cuco Gilliam Basophils/100 WBC (Bld) 0.4 % Normal 0.2-2.0 [facility] Comment on above: Performed By: #### C BC #### [facility] [address] [place] [address] Dr. Cuco Gilliam EO # 0.1 103/ul Normal 0.0-0.7 [facility] Comment on above: Performed By: #### C BC #### [facility] [address] [place] [address] Dr. Cuco Gilliam Eosinophils/100 WBC (Bld) 0.9 % Normal 0.9-7.0 [facility] Comment on above: Performed By: #### C BC #### [facility] [address] [place] [address] Dr. Cuco Gilliam Erythrocyte distribution width (RBC) [Ratio] 15.9 % Critically high 11.0-15.0 [facility] Comment on above: Performed By: #### C BC #### [facility] [address] [place] [address] Dr. Cuco Gilliam Hematocrit (Bld) [Volume fraction] 47.8 % Normal 42.0-54.0 [facility] Comment on above: Performed By: #### C BC #### [facility] [address] [place] [address] Dr. Cuco Gilliam Hemoglobin (Bld) [Mass/Vol] 14.9 g/dL Normal 14.0-18.0 [facility] Comment on above: Performed By: #### C BC #### [facility] [address] [place] [address] Dr. Cuco Gilliam IG # 0.05 10e3/ul Critically high 0.00-0.03 [facility] Comment on above: Performed By: #### C BC #### [facility] [address] [place] [address] Dr. Cuco Gilliam IG % 0.5 % Normal 0.0-0.5 [facility] Comment on above: Performed By: #### C BC #### [facility] [address] [address] [address] Cuco Gilliam LYMPH # 1.8 103/ul Normal 1.2-3.8 [facility] Comment on above: Performed By: #### C BC #### [facility] [address] [place] [address] Dr. Cuco Gilliam Lymphocytes/100 WBC (Bld) 17.3 % Critically low 20.5-60.0 [facility] Comment on above: Performed By: #### C BC #### [facility] [address] [place] [address] Dr. Cuco Gilliam MANUAL DIFF REQ NO Normal [facility] Comment on above: Performed By: #### C BC #### [facility] [address] [place] [address] Dr. Cuco Gilliam MCH (RBC) [Entitic mass] 28.4 pg Normal 25.9-34.0 [facility] Comment on above: Performed By: #### C BC #### [facility] [address] [place] [address] Dr. Cuco Gilliam MCHC (RBC) [Mass/Vol] 31.2 g/dL Normal 29.9-35.2 [facility] Comment on above: Performed By: #### C BC #### [facility] [address] [place] [address] Dr. Cuco Gilliam MCV (RBC) [Entitic vol] 91.2 fL Normal 80.0-94.0 [facility] Comment on above: Performed By: #### C BC #### [facility] [address] [place] [address] Dr. Cuco Gilliam MONO # 0.7 103/ul Normal 0.3-0.8 [facility] Comment on above: Performed By: #### C BC #### [facility] [address] [place] [address] Dr. Cuco Gilliam Monocytes/100 WBC (Bld) 6.8 % Normal 1.7-12.0 [facility] Comment on above: Performed By: #### C BC #### [facility] [address] [address] [address] Cuco Gilliam NEUT # 7.7 103/ul Critically high 1.4-6.5 [facility] Comment on above: Performed By: #### C BC #### [facility] [address] [place] [address] Dr. Cuco Gilliam Neutrophils/100 WBC (Bld) 74.1 % Normal 43.0-75.0 [facility] Comment on above: Performed By: #### C BC #### [facility] [address] [place] [address] Dr. Cuco Gilliam Platelet mean volume (Bld) [Entitic vol] 9.1 fL Critically low 9.5-13.5 [facility] Comment on above: Performed By: #### C BC #### [facility] [address] [place] [address] Dr. Cuco Gilliam PLT 218 103/ul Normal 150-450 [facility] Comment on above: Performed By: #### C BC #### [facility] [address] [place] [address] Dr. Cuco Gilliam RBC 5.24 106/ul Normal 4.70-6.10 [facility] Comment on above: Performed By: #### C BC #### [facility] [address] [place] [address] Dr. Cuco Gilliam WBC 10.4 103/ul Normal 4.0-11.0 [facility] Comment on above: Performed By: #### C BC #### [facility] [address] [place] [address] Dr. Cuco Gilliam LIPID PROFILEon 10-28-2022 CHOL-HDL RATIO NORM SEE BELOW Normal [facility] Comment on above: Result Comment: 3.3 - 4.4 LOW RISK 4.4 - 7.1 AVERAGE RISK 7.1 - 11.0 MODERATE RISK >11.0 HIGH RISK Performed By: #### B MP, LIPID #### [facility] [address] [place] [address] Dr. Cuco Gilliam Cholesterol [Mass/Vol] 142 mg/dL Normal <=200 Th [facility] Comment on above: Performed By: #### B MP, LIPID #### [facility] [address] [address] [address] Cuco Gilliam Cholesterol in HDL [Mass/Vol] 59 mg/dL Normal 40-60 [facility] Comment on above: Performed By: #### B MP, LIPID #### [facility] [address] [address] [address] Cuco Gilliam Cholesterol in LDL [Mass/Vol] 69.4 mg/dL Normal [facility] Comment on above: Performed By: #### B MP, LIPID #### [facility] [address] [address] [address] Cuco Gilliam Cholesterol.total/Amirah sterol in HDL [Mass ratio] 2.4 {ratio} Normal [facility] Comment on above: Performed By: #### B MP, LIPID #### [facility] [address] [place] [address] Dr. Cuco Gilliam HDL NORMAL > or = 60 mg/dl - LO W CARDIOVASCULAR RISK <40 mg/dl - HIGH CARDIOVASCULAR RISK Normal [facility] Comment on above: Performed By: #### B MP, LIPID #### [facility] [address] [place] [address] Dr. Cuco Gilliam LDL CALC NORMAL SEE BELOW Normal [facility] Comment on above: Result Comment: <100 mg/dl OPTIMAL 100 - 129 mg/dl NEAR OR ABOVE OPTIMAL 130 - 159 mg/dl BORDERLINE HIGH 160 - 189 mg/dl HIGH >190 mg/dl VERY HIGH Performed By: #### B MP, LIPID #### [facility] [address] [address] [address] Cuco Gilliam Triglyceride [Mass/Vol] 68 mg/dL Normal <=150 T [facility] Comment on above: Performed By: #### B MP, LIPID #### [facility] [address] [place] [address] Dr. Cuco Gilliam VLDL CALC 13.6 mg/dL Normal [facility] Comment on above: Performed By: #### B MP, LIPID #### [facility] [address] [address] [address] Cuco Gilliam MICROALBUMIN, RAND URon 12-0 mALB 9.0 mg/L Normal <=30.0 [facility] Comment on above: Performed By: #### M ALBR #### [facility] [address] [place] [address] Dr. Cuco Gilliam PROF CHEM 8 (BAS METB)on Anion gap [Moles/Vol] 8.2 mmol/L Normal [facility] Comment on above: Performed By: #### B MP, LIPID #### [facility] [address] [place] [address] Dr. Cuco Gilliam Calcium [Mass/Vol] 9.2 mg/dL Normal 8.5-10.1 [facility] Comment on above: Performed By: #### B MP, LIPID #### [facility] [address] [place] [address] Dr. Cuco Gilliam Chloride [Moles/Vol] 101 mmol/L Normal 98-107 [facility] Comment on above: Performed By: #### B MP, LIPID #### [facility] [address] [place] [address] Dr. Cuco Gilliam CO2 [Moles/Vol] 34.8 mmol/L Critically high 21.0-32.0 [facility] Comment on above: Performed By: #### B MP, LIPID #### [facility] [address] [place] [address] Dr. Cuco Gilliam Creatinine [Mass/Vol] 1.10 mg/dL Normal 0.70-1.30 [facility] Comment on above: Performed By: #### B MP, LIPID #### [facility] [address] [place] [address] Dr. Cuco Gilliam EGFR-AF FINNISH >60 Normal >=60 [facility] Comment on above: Performed By: #### B MP, LIPID #### [facility] [address] [place] [address] Dr. Cuco Gilliam EGFR-NON AF FINNISH >60 Normal >=60 [facility] Comment on above: Performed By: #### B MP, LIPID #### [facility] [address] [place] [address] Dr. Cuco Gilliam Glucose [Mass/Vol] 120 mg/dL Critically high 74-106 [facility] Comment on above: Performed By: #### B MP, LIPID #### [facility] [address] [address] [address] Cuco Gilliam Potassium [Moles/Vol] 4.0 mmol/L Normal 3.5-5.1 [facility] Comment on above: Performed By: #### B MP, LIPID #### [facility] [address] [address] [address] Cuco Gilliam Sodium [Moles/Vol] 140 mmol/L Normal 136-145 [facility] Comment on above: Performed By: #### B MP, LIPID #### [facility] [address] [place] [address] Dr. Cuco Gilliam Urea nitrogen [Mass/Vol] 20.0 mg/dL Critically high 7.0-18.0 [facility] Comment on above: Performed By: #### B MP, LIPID #### [facility] [address] [place] [address] Dr. Cuco Gilliam Urea nitrogen/Creatinine [Mass ratio] 18.2 mg/mg Normal [facility] Comment on above: Performed By: #### B MP, LIPID #### [facility] [address] [place] [address] Dr. Cuco Gilliam XR KUB 1 VIEWon [...] by: DAVONTE NUNEZ Date: 2022-10-28 11:46 [facility] GLYCOHEMOGLOBIN A1Con 2021 ADA RECOMMENDATION SEE BELOW Normal [facility] Comment on above: Result Comment: ADA RECOMMENDED LIMIT 4.0 - 6.0 ADA THERAPEUTIC TARGET < 7.0 ACTION SUGGESTED > 7.0 Performed By: #### A 1C #### [facility] [address] [address] [address] Cuco Gilliam Glucose [Mass/Vol] 146 mg/dL [facility] Comment on above: Performed By: #### A 1C #### [facility] [address] [address] [address] Cuco Gilliam HbA1c (Bld) [Mass fraction] 6.7 % Critically high 4.5-6.2 [facility] Comment on above: Performed By: #### A 1C #### [facility] [address] [address] [address] Cuco Gilliam Activated partial thrombopla stin time (aPTT) in platelet poor plasma by coagulation aOrdered By: Domenico Betancourt on 08-24-2022 aPTT Coag (PPP) [Time] 35.5 s 25.1-36.5 [facility] Amphetamine Screen Ql (U)Ord ered By: Domenico Betancourt on 08-24-2022 Amphetamines Ql (U) Negative Negative [facility] Barbiturates [Presence] in U rineOrdered By: Domenico Betancourt on 08-24-2022 Barbiturates Ql (U) Negative Negative [facility] Basophils Auto (Bld) [#/Vol] Ordered By: Domenico Betancourt on 08-24-2022 Basophils (Bld) [#/Vol] 0.1 10*3/uL 0.0-0.2 [facility] Basophils/100 WBC Auto (Bld) Ordered By: Domenico Betancourt on 08-24-2022 Basophils/100 WBC (Bld) 0.9 % . [facility] Benzodiazepines [Presence] i n UrineOrdered By: Domenico Betancourt on 08-24-2022 Benzodiazepines Ql (U) Negative Negative [facility] Blood hemoglobin measurement (mass/volume)Ordered By: Domenico Betancourt on 08-24-2022 Hemoglobin (Bld) [Mass/Vol] 13.1 g/dL 13.0-17.0 [facility] Blood leukocytes automated c ount (number/volume)Ordered By: Domenico Betancourt on 08-24-2022 WBC (Bld) [#/Vol] 6.1 10*3/uL 4.5-11.0 [facility] COVID-19 SOFIAOrdered By: Isela ttanayeli Betancourt on 08-24-2022 SARS-CoV+SARS-CoV-2 (COVID-19) Ag IA.rapid Ql (Resp) Negative Negative [facility] Comment on above: This is a duplicate Dodie SARS Antigen (BERNARD) result to be used for statistical tracking purpose only. Cannabinoids [Presence] in U rine by Screen methodOrdered By: Domenico Betancourt on 08-24-2022 Cannabinoids Screen Ql (U) Negative Negative [facility] Comment on above: These are unconfirme d results and should not be used for legal purposes. Drug Cut-Off Concentration: AMPH 1000 ng/mL SHON 200 ng/mL SRAVANTHI 200 ng/mL COCM 300 ng/mL OP 300 ng/mL PCP 25 ng/mL THC 20 ng/mL Creatine kinase [Enzymatic a ctivity/volume] in Serum or PlasmaOrdered By: Domenico Betancourt on 08-24-2022 CK [Catalytic activity/Vol] 49 U/L 22-269 [facility] Creatinine and Glomerular fi ltration rate.predicted panel (S/P/Bld)Ordered By: Domenico Betancourt on 08-24-2022 Creatinine [Mass/Vol] 1.13 mg/dL 0.64-1.27 [facility] Eosinophils Auto (Bld) [#/Vo l]Ordered By: Domenico Betancourt on 08-24-2022 Eosinophils (Bld) [#/Vol] 0.1 10*3/uL 0.0-0.45 [facility] Eosinophils/100 WBC Auto (Bl d)Ordered By: Domenico Betancourt on 08-24-2022 Eosinophils/100 WBC (Bld) 1.4 % . [facility] Erythrocyte distribution wid th Auto (RBC) [Ratio]Ordered By: Domenico Betancourt on 08-24-2022 Erythrocyte distribution width (RBC) [Ratio] 15.9 % 12.0-14.8 [facility] Estimated glomerular filtrat ion rate (GFR) non- AmericanOrdered By: Domenico Betancourt on 08-24-2022 GFR/1.73 sq M.predicted among non-blacks MDRD (S/P/Bld) [Vol rate/Area] > 60 mL/Min [facility] Glucose Glucometer (BldC) [M ass/Vol]Ordered By: Domenico Betancourt on 08-24-2022 Glucose [Mass/Vol] 133 mg/dL [facility] Comment on above: Random Glucose Refer ence Range is dependent on time and content of last meal. Glucose of more than 200 mg/dL in a nonstressed, ambulatory subject supports the diagnosis of Diabetes Mellitus. Hematocrit Auto (Bld) [Volum e fraction]Ordered By: Domenico Betancourt on 08-24-2022 Hematocrit (Bld) [Volume fraction] 40.8 % 38.8-50.0 [facility] Laboratory - Chemistry and C hemistry - challengeOrdered By: Domenico Betancourt on 08-24-2022 Lipase [Catalytic activity/Vol] 23.0 U/L 22-51 [facility] Laboratory - CoagulationOrde red By: Domenico Betancourt on 08-24-2022 PT Coag (PPP) [Time] 30.6 s 9.0-12.9 [facility] [facility] - Drug toxicology Ordered By: Domenico Betancourt on 08-24-2022 Opiates Ql (U) Negative Negative [facility] Laboratory - Hematology and Cell countsOrdered By: Domenico Betancourt on 08-24-2022 Nucleated RBC/100 WBC (Bld) [Ratio] 0.0 % 0-0.5 [facility] Laboratory - Microbiology an d Antimicrobial susceptibilityOrdered By: Domenico Betancourt on 08-24-2022 SARS-CoV-2 (COVID-19) RNA NA+probe Ql (Unsp spec) N/A [facility] Lymphocytes Auto (Bld) [#/Vo l]Ordered By: Domenico Betancourt on 08-24-2022 Lymphocytes (Bld) [#/Vol] 0.9 10*3/uL 1.00-4.8 [facility] Lymphocytes/100 WBC Auto (Bl d)Ordered By: Domenico Betancourt on 08-24-2022 Lymphocytes/100 WBC (Bld) 14.1 % . [facility] MCH Auto (RBC) [Entitic mass ]Ordered By: Domenico Betancourt on 08-24-2022 MCH (RBC) [Entitic mass] 28.7 pg 27.5-35.2 [facility] MCHC Auto (RBC) [Mass/Vol]Or dered By: Domenico Betancourt on 08-24-2022 MCHC (RBC) [Mass/Vol] 32.1 g/dL 32.5-35.6 Fir [facility] MCV Auto (RBC) [Entitic vol] Ordered By: Domenico Betancourt on 08-24-2022 MCV (RBC) [Entitic vol] 89.3 fL 83.5-101 F [facility] Monocytes Auto (Bld) [#/Vol] Ordered By: Domenico Betancourt on 08-24-2022 Monocytes (Bld) [#/Vol] 0.5 10*3/uL 0.0-0.8 [facility] Monocytes/100 WBC Auto (Bld) Ordered By: Domenico Betacnourt on 08-24-2022 Monocytes/100 WBC (Bld) 8.2 % . [facility] Neutrophils Auto (Bld) [#/Vo l]Ordered By: Domenico Betancourt on 08-24-2022 Neutrophils (Bld) [#/Vol] 4.6 10*3/uL 1.8-7.7 [facility] Neutrophils/100 WBC Auto (Bl d)Ordered By: Domenico Betancourt on 08-24-2022 Neutrophils/100 WBC (Bld) 75.4 % . [facility] No Panel InformationOrdered By: Domenico Betancourt on 08-24-2022 Estimated GFR () > 60 mL/Min [facility] Comment on above: GFR estimated refere nce range: According to KDOQI guidelines, <60 ml/min/1.73m2 is sufficient to diagnose a patient with chronic kidney disease. Pharmacy Creatinine Clearance (Chem 77.86 [facility] Bedside Glucose Comment Glu2: cleaned meter [facility] SARS Antigen (LFIA) [facility] Phencyclidine Screen Ql (U)O rdered By: Domenico Betancourt on 08-24-2022 Phencyclidine Ql (U) Negative Negative [facility] Platelet mean volume Auto (B ld) [Entitic vol]Ordered By: Domenico Betancourt on 08-24-2022 Platelet mean volume (Bld) [Entitic vol] 8.2 fL 6.6-10.1 [facility] Platelet poor plasma interna tional normalized ratio (INR) by coagulation assay (relatOrdered By: Domenico Betancourt on 08-24-2022 INR Coag (PPP) [Relative time] 2.7 {INR} [facility] Comment on above: INR Therapeutic [...] 08-24-2022 Platelets (Bld) [#/Vol] 170 10*3/uL 150-450 [facility] RBC Auto (Bld) [#/Vol]Ordere d By: Domenico Betancourt on 08-24-2022 RBC (Bld) [#/Vol] 4.57 10*6/uL 3.90-5.60 [facility] Serum or plasma amylase robert urement (enzymatic activity/volume)Ordered By: Domenico Betancourt on 08-24-2022 Amylase [Catalytic activity/Vol] 30 U/L 28-100 [facility] Serum or plasma anion gap de terminationOrdered By: Domenico Betancourt on 08-24-2022 Anion gap [Moles/Vol] 11.9 mmol/L 6.0-15.0 [facility] Serum or plasma aspartate am inotransferase measurement (enzymatic activity/volume)Ordered By: Domenico Betancourt on 08-24-2022 AST [Catalytic activity/Vol] 16 U/L 10-42 [facility] Serum or plasma calcium robert urement (mass/volume)Ordered By: Domenico Betancourt on 08-24-2022 Calcium [Mass/Vol] 8.8 mg/dL 8.2-10.2 [facility] Serum or plasma chloride ralph surement (moles/volume)Ordered By: Domenico Betancourt on 08-24-2022 Chloride [Moles/Vol] 99 mmol/L 95-114 [facility] Serum or plasma ethanol robert urement (mass/volume)Ordered By: Domenico Betancourt on 08-24-2022 Ethanol [Mass/Vol] mg/dL [facility] Ethanol [Mass/Vol] TNP [facility] Comment on above: Test not performed Serum or plasma glucose robert urement (mass/volume)Ordered By: Domenico Betancourt on 08-24-2022 Glucose [Mass/Vol] 149 mg/dL 70-100 [facility] Comment on above: ADA recommended refe rence rangeRandom Glucose Reference Range is dependent on time and content of last meal. Glucose of more than 200 mg/dL in a nonstressed, ambulatory subject supports the diagnosis of Diabetes Mellitus. Serum or plasma potassium me asurement (moles/volume)Ordered By: Domenico Betancourt on 08-24-2022 Potassium [Moles/Vol] 3.8 mmol/L 3.5-5.1 [facility] Serum or plasma sodium measu rement (moles/volume)Ordered By: Domenico Betancourt on 08-24-2022 Sodium [Moles/Vol] 135 mmol/L 136-146 [facility] Serum or plasma total carbon dioxide measurement (moles/volume)Ordered By: Domenico Betancourt on 08-24-2022 CO2 [Moles/Vol] 27.9 mmol/L 22.0-30.0 [facility] Serum or plasma urea nitroge n measurement (mass/volume)Ordered By: Domenico Betancourt on 08-24-2022 Urea nitrogen [Mass/Vol] 13 mg/dL - [facility] Urine cocaine detectionOrder ed By: Domenico Betancourt on 08-24-2022 Cocaine Ql (U) Negative Negative [facility] Activated partial thrombopla stin time (aPTT) in platelet poor plasma by coagulation aOrdered By: Lalito Silva on 07-02-2022 aPTT Coag (PPP) [Time] 30.9 s 25.1-36.5 [facility] Basophils Auto (Bld) [#/Vol] Ordered By: Lalito Silva on 07-02-2022 Basophils (Bld) [#/Vol] 0.1 10*3/uL 0.0-0.2 [facility] Basophils/100 WBC Auto (Bld) Ordered By: Lalito Silva on 07-02-2022 Basophils/100 WBC (Bld) 0.8 % . [facility] Blood hemoglobin measurement (mass/volume)Ordered By: Lalito Silva on 07-02-2022 Hemoglobin (Bld) [Mass/Vol] 14.0 g/dL 13.0-17.0 [facility] Blood leukocytes automated c ount (number/volume)Ordered By: Lalito Silva on 07-02-2022 WBC (Bld) [#/Vol] 7.6 10*3/uL 4.5-11.0 [facility] COVID-19 SOFIAOrdered By: Sa tawny Smith on 07-02-2022 SARS-CoV+SARS-CoV-2 (COVID-19) Ag IA.rapid Ql (Resp) Negative Negative [facility] Comment on above: This is a duplicate Dodie SARS Antigen (BERNARD) result to be used for statistical tracking purpose only. Creatinine and Glomerular fi ltration rate.predicted panel (S/P/Bld)Ordered By: Lalito Silva on 07-02-2022 Creatinine [Mass/Vol] 1.26 mg/dL 0.64-1.27 [facility] Eosinophils Auto (Bld) [#/Vo l]Ordered By: Lalito Silva on 07-02-2022 Eosinophils (Bld) [#/Vol] 0.1 10*3/uL 0.0-0.45 [facility] Eosinophils/100 WBC Auto (Bl d)Ordered By: Lalito Silva on 07-02-2022 Eosinophils/100 WBC (Bld) 1.2 % . [facility] Erythrocyte distribution wid th Auto (RBC) [Ratio]Ordered By: Lalito Silva on 07-02-2022 Erythrocyte distribution width (RBC) [Ratio] 16.2 % 12.0-14.8 [facility] Estimated glomerular filtrat ion rate (GFR) non- AmericanOrdered By: Lalito Silva on 07-02-2022 GFR/1.73 sq M.predicted among non-blacks MDRD (S/P/Bld) [Vol rate/Area] 56 mL/Min [facility] Hematocrit Auto (Bld) [Volum e fraction]Ordered By: Lalito Silva on 07-02-2022 Hematocrit (Bld) [Volume fraction] 43.9 % 38.8-50.0 [facility] Laboratory - CoagulationOrde red By: Lalito Silva on 07-02-2022 PT Coag (PPP) [Time] 15.7 s 9.0-12.9 [facility] Laboratory - Coagulationon 0 07-02-2022 INR Coag (Bld) [Relative time] 1.5 {INR} -[facility] will 250 DO Work Phone: Comment on above: INR results are spec ifically intended to assess patients stabilized on long-term Anticoagulation therapy suggested INR?s ?Less Intensive Anticoagulation? 2.0 ? 3.0Conventional Range 3.0 ? 4.5 Laboratory - Hematology and Cell countsOrdered By: Lalito Silva on 07-02-2022 Nucleated RBC/100 WBC (Bld) [Ratio] 0.1 % 0-0.5 [facility] Lymphocytes Auto (Bld) [#/Vo l]Ordered By: Lalito Silva on 07-02-2022 Lymphocytes (Bld) [#/Vol] 1.4 10*3/uL 1.00-4.8 [facility] Lymphocytes/100 WBC Auto (Bl d)Ordered By: Lalito Silva on 07-02-2022 Lymphocytes/100 WBC (Bld) 18.8 % . [facility] MCH Auto (RBC) [Entitic mass ]Ordered By: Lalito Silva on 07-02-2022 MCH (RBC) [Entitic mass] 28.7 pg 27.5-35.2 [facility] MCHC Auto (RBC) [Mass/Vol]Or dered By: Lalito Silva on 07-02-2022 MCHC (RBC) [Mass/Vol] 31.9 g/dL 32.5-35.6 [facility] MCV Auto (RBC) [Entitic vol] Ordered By: Lalito Silva on 07-02-2022 MCV (RBC) [Entitic vol] 90.1 fL 83.5-101 [facility] Monocytes Auto (Bld) [#/Vol] Ordered By: Lalito Silva on 07-02-2022 Monocytes (Bld) [#/Vol] 0.6 10*3/uL 0.0-0.8 [facility] Monocytes/100 WBC Auto (Bld) Ordered By: Lalito Silva on 07-02-2022 Monocytes/100 WBC (Bld) 7.2 % . [facility] Neutrophils Auto (Bld) [#/Vo l]Ordered By: Lalito Silva on 07-02-2022 Neutrophils (Bld) [#/Vol] 5.5 10*3/uL 1.8-7.7 [facility] Neutrophils/100 WBC Auto (Bl d)Ordered By: Lalito Silva on 07-02-2022 Neutrophils/100 WBC (Bld) 72.0 % . [facility] No Panel InformationOrdered By: Lalito Silva on 07-02-2022 Estimated GFR () > 60 mL/Min [facility] Comment on above: GFR estimated refere nce range: According to KDOQI guidelines, <60 ml/min/1.73m2 is sufficient to diagnose a patient with chronic kidney disease. Pharmacy Creatinine Clearance (Chem 67.63 [facility] No Panel Informationon 07-02 33.6 {second(s)} Normal 25.1-36.5 -[facility] will 250 DO Work Phone: Comment on above: Parameter 15 days - 4 weeks 1 - 5 months 6 - 11 months 1 - 5 years 6 - 10 years 11 - 17 years PTT Mean: 35.4 (27.6-45.6) Mean: 33.5 (24.8-40.7) Mean: 32.4 (25.1-40.7) Mean: 31.6 (24.0-39.2) Mean: 31.6 (26.9-38.7) Mean: 31.0 (24.6-38.4) Pediatric Reference ranges were obtained from a study by leah Landaverde alLong prepared from 1437 samples obtained at 7 different centers using the same coagulation reagent and instrumentation as [facility]. Currently there are no coagulation studies available worldwide for children to 14 days, and no normal ranges. Heparin therapeutic range (represented by Anti-Factor Xa activity of 0.2 - 0.4 U/mL) corresponds to PTT of 56.6 - 109.0 sec. 17.2 {second(s)} above high threshold 9.4-12.5 -[facility] [employer] will 250 DO Work Phone: Comment on [...] the same coagulation reagent and instrumentation as [facility]. Currently there are no coagulation studies available worldwide for children to 14 days, and no normal ranges. No Panel InformationOrdered By: Joss Smith on 07-02-2022 SARS Antigen (LFIA) [facility] Platelet mean volume Auto (B ld) [Entitic vol]Ordered By: Lalito Silva on 07-02-2022 Platelet mean volume (Bld) [Entitic vol] 8.3 fL 6.6-10.1 [facility] Platelet poor plasma interna tional normalized ratio (INR) by coagulation assay (relatOrdered By: Lalito Silva on 07-02-2022 INR Coag (PPP) [Relative time] 1.4 {INR} [facility] Comment on above: INR Therapeutic [...] 07-02-2022 Platelets (Bld) [#/Vol] 225 10*3/uL 150-450 [facility] RBC Auto (Bld) [#/Vol]Ordere d By: Lalito Silva on 07-02-2022 RBC (Bld) [#/Vol] 4.87 10*6/uL 3.90-5.60 [facility] Serum or plasma calcium robert urement (mass/volume)Ordered By: Lalito Silva on 07-02-2022 Calcium [Mass/Vol] 9.0 mg/dL 8.2-10.2 [facility] Serum or plasma chloride ralph surement (moles/volume)Ordered By: Lalito Silva on 07-02-2022 Chloride [Moles/Vol] 100 mmol/L 95-114 [facility] Serum or plasma glucose robert urement (mass/volume)Ordered By: Lalito Silva on 07-02-2022 Glucose [Mass/Vol] 116 mg/dL 70-100 [facility] Comment on above: ADA recommended refe [...] on 07-02-2022 Potassium [Moles/Vol] 4.0 mmol/L 3.5-5.1 [facility] Serum or plasma sodium measu rement (moles/volume)Ordered By: Lalito Silva on 07-02-2022 Sodium [Moles/Vol] 139 mmol/L 136-146 [facility] Serum or plasma total carbon dioxide measurement (moles/volume)Ordered By: Lalito Silva on 07-02-2022 CO2 [Moles/Vol] 28.9 mmol/L 22.0-30.0 [facility] Serum or plasma urea nitroge n measurement (mass/volume)Ordered By: Lalito Silva on 07-02-2022 Urea nitrogen [Mass/Vol] 25 mg/dL 9-23 [facility] Office Visit (Cardiology)on 06-15-2022 Follow-up visit Diagnoses/Problems Assessed Atherosclerosis of coronary artery of cahto heart without angina pectoris (414.01) (I25.10) Hyperlipidemia [...] Weight Tips; Status:Complete - Retrospective Authorization; Done: [id number] Some eating tips that can help you lose weight.; Status:Complete - Retrospective Authorization; Done: 15Jun2022 SocHx: Former smoker Tobacco Use Screening; Status:Complete; Done: [id number] Patient Instructions Please bring all medicines, vitamins, [...] Sodium 4 MG Oral Tabletas directed by [facility] Patient did not bring medication [...] negative for complaint. Vitals Vital Signs Recorded: [id number] 11:29AM Heart Rate68, R Radial Qfciaiqi610, RUE, Sitting Oyooljzpq65, RUE, Sitting Height5 ft 6 in Awialz793 lb BMI Jlfbkjdokb11 kg/m2 BSA Calculated2.43 Tobacco Useb) No Physical [...] normal s (more content not included)... Normal [employer] Tobacco Screening.on 022 Tobacco use status HS b) No M [facility] Spectral Image 250 DO Work Phone: Office Visit (Cardiology)on 03-16-2022 Follow-up visit Diagnoses/Problems Assessed Atherosclerosis of coronary artery of cahto heart without angina pectoris (414.01) (I25.10) Essential hypertension, benign (401.1) (I10) Diabetes mellitus (250.00) (E11.9) Hyperlipidemia (272.4) (E78.5) High risk medication use (V58.69) (Z79.899) Body mass index (BMI) of 50.0 to 59.9 in adult (V85.43) (Z68.43) Former smoker (V15.82) (Z87.891) QUIT 1996 Edema (782.3) (R60.9) Atrial flutter (427.32) (I48.92) Orders Atrial flutter IO EKG Electrocardiogram- 12 Lead; Status:Complete; Done: [id number] Body mass index (BMI) of 50.0 to 59.9 in adult Healthy Weight Tips; Status:Complete - Retrospective Authorization; Done: [id number] Edema Start: Torsemide 10 MG Oral Tablet; Take one tablet once daily Edema, Essential hypertension, benign, High risk medication use Basic Metabolic Panel; Status:Active - Retrospective Authorization; Requested for:[id number]; SocHx: Former smoker Tobacco Use Screening; Status:Complete; Done: [id number] Patient Instructions By signing my name below, I, Rodolfo Patricio LPNScribe, attest that this documentation has been prepared [...] Sodium 4 MG Oral Tabletas directed by [facility] Allergies Medication Penicillins Allergy; Hives;; Recorded By: Reina Bloom; 08/04/2021 6:29:44 PM Social History Problems Consumes 1 to 2 servings of caffeine per day (V49.89) (Z78.9) Former smoker (V15.82) (Z87.891) QUIT 1996 No illicit drug use Occasional alcohol use (more content not included)... Normal [facility] Tobacco Screening.on 022 Adult depression screening assessment No [facility] slois 250 DO Work Phone: Fall risk assessment b) One or more fall s in the last year [facility] solis 250 DO Work Phone: Tobacco use status [facility] b) No M [facility] will 250 DO Work Phone: No Panel Informationon 01-20 22\S\22 Normal 10-42 [facility] solis 250 DO Work Phone: 0.50\S\0.50 Normal 0.45-5.33 [facility] will 250 DO Work Phone: Comment on above: PERFORMED BY:[place] [address] [place], [place] [phone] MEDICAL DIRECTORCORAL GOLD M.D. 9.1\S\9.1 Normal 8.2-10.2 [facility] will 250 DO Work Phone: 24.4\S\24.4 Normal 22.0-30.0 [facility] will 250 DO Work Phone: [phone] 102\S\102 Normal 95-114 [facility] will 250 DO Work Phone: 4.1\S\4.1 Normal 3.5-5.1 [facility] will 250 DO Work Phone: 138\S\138 Normal 136-146 [facility] iwll 250 DO Work Phone: 55\S\55 Normal [facility] will 250 DO Work Phone: Comment on above: GFR estimated refere nce range: According to KDOQI guidelines, <60 ml/min/1.73m2 is sufficient to diagnose a patient with chronic kidney disease. 45\S\45 Normal [facility] Car solis 250 DO Work Phone: 1.51\S\1.51 above high threshold 0.64-1.27 [facility] solis 250 DO Work Phone: 23\S\23 Normal 9-23 [facility] Car solis 250 DO Work Phone: 109\S\109 above high threshold 70-100 [facility] Car Bowens DO Work Phone: Comment on above: Random Glucose Refer ence Range is dependent on time and content of last meal. Glucose of more than 200 mg/dL in a nonstressed, ambulatory subject supports the diagnosis of Diabetes Mellitus. ADA recommended reference range Radiologyon 01-20-2022 XR Chest 2 Views Normal [facility] Car Bowens DO Work Phone: No Panel Informationon 09-23 Normal [facility] Car Bowens DO Work Phone: No Panel Informationon 09-22 [facility] Bowens DO Work Phone: IO EKG Electrocardiogram- 12 Leadon 09-07-2021 IO EKG Electrocardiogram- 12 Lead See Scanned Document [facility] Car Bowens DO Work Phone: Office Visit (Cardiology)on 09-07-2021 Follow-up visit Diagnoses/Problems Assessed Atherosclerosis of coronary artery of cahto heart without angina pectoris (414.01) (I25.10) Atrial flutter (427.32) (I48.92) Essential hypertension, benign (401.1) (I10) Diabetes mellitus (250.00) (E11.9) Hyperlipidemia (272.4) (E78.5) Body mass index (BMI) of 50.0 to 59.9 in adult (V85.43) (Z68.43) Former smoker (V15.82) (Z87.891) QUIT 1996 Obesity, morbid (more than 100 lbs over ideal weight or BMI > 40) (278.01) (E66.01) Orders Atherosclerosis of coronary artery of cahto heart without angina pectoris Renew: Aspirin EC 81 MG Oral Tablet Delayed Release; TAKE 1 TABLET DAILY SocHx: Former smoker Tobacco Use Screening; Status:Complete; Done: 23Pri6765 Follow up in 6-9 months Amiodarone follow up per routine Patient Instructions By signing my name below, I, Awilda Bailey LPN ,[place], attest that this documentation has been prepared [...] Sodium 4 MG Oral Tabletas directed by [facility] Allergies Medication Penicillins Allergy; Hives;; [...] Signs Recorded: 07Sep2021 09:34AM Heart Rate70, Apical Ucyowife15, RUE, Sitting Savdrpbiz17, RUE, Sitting Height5 ft 6.5 in Ewniju402 lb BMI Gqktresqev10.26 kg/m2 BSA Calculated2.5 Tobacco Useb) No Fall Screeninga) No falls within the last year EKG done in office today. Physical Exam Constitutional: alert and in no acute distress. Eyes: no erythema, swelling or discharge from the eye . Neck: neck is supple (more content not included)... 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 [id number] This report has been produced using speech [...] Original Transcribed by/Date: [facility] Apr 29 2019 4:50P Original Electronically Signed by/Date: MALLIKA QUINONES M.D. Apr 29 2019 4:50P Addendum Interpreting Physician: Addendum Transcribed by/Date: NO ADDENDUM Addendum Electronically Signed by/Date: [facility] KNEE BI 1 OR 2 VIEWon 2018 KNEE BI 1 OR 2 VIEW *FINAL Date of Service: 04/29/2019 16:45 Adm #: [id number] Reading Dr:MALLIKA QUINONES Signoff Dr: MALLIKA QUINONES [...] change due to bilateral tricompartmental knee arthroplasty. [id number] This report has been produced using speech recognition. Original Interpreting Physician: MALLIKA QUINONES M.D. Original [facility]Date[facility] Apr [facility] 2019 4:53P Original Electronically Signed by/Date: MALLIKA QUINONES M.D. Apr 29 2019 4:53P Addendum Interpreting Physician: Addendum Transcribed by/Date: NO ADDENDUM Addendum Electronically Signed by/Date: [facility] PROTHROMBIN TIMEon 9 INR Coag RelTime (PPP) High 0.86-1.16 [facility] Comment on above: Result Comment: 2.5 INR Theraputic Range: 2.0-3.5 Performed at [address] [address] Performed By: #### P TB #### Main Laboratory [address] [address] Prothrombin time (PT) Coag time (PPP) INFORMATION NOT REPORTED TO LABORATORY [facility] Comment on above: Performed By: #### P TB #### Main Laboratory [address] [address] Prothrombin time (PT) Coag time (PPP) 24.9 s High 9.3-12.7 [facility] Comment on above: Performed By: #### P TB #### Main Laboratory [place] [address] [place] [address] SHOULDER RT MIN 2 VIEWon SHOULDER RT MIN 2 VIEW *FINAL Date of Service: 04/29/2019 16:45 Adm #: [id number] Reading Dr:MALLIKA Rubi Dr: MALLIKA QUINONES PROCEDURE: [...] acromioclavicular joint and at the glenohumeral joint. [id number] This report has been produced using speech recognition. Original Interpreting Physician: MALLIKA QUINONES M.D. Original Transcribed by/Date: [facility] Apr 29 2019 4:51P Original Electronically Signed by/Date: MALLIKA QUINONES M.D. Apr 29 2019 4:51P Addendum Interpreting Physician: Addendum Transcribed by/Date: NO ADDENDUM Addendum Electronically Signed by/Date: [facility] SPINE CERVICAL WO CONTRASTon 04-29-2019 SPINE CERVICAL WO CONTRAST *FINAL Date of Service: 04/29/2019 16:43 Adm #: [id number] Reading Dr:MALLIKA Rubi Dr: MALLIKA QUINONES PROCEDURE: [...] from C3-4 through C7-T1 with cervical spondylosis. [id number] This report has been produced using speech [...] Physician: MALLIKA QUINONES M.D. Original Transcribed by/Date: [facility] Apr 29 2019 5:02P Original Electronically Signed by/Date: MALLIKA QUINONES M.D. Apr 29 2019 5:02P Addendum Interpreting Physician: Addendum Transcribed by/Date: NO ADDENDUM Addendum Electronically Signed by/Date: [facility] Vital Signs Date Time Vital Sign Value Performing Clinician Facility 08-14-2024 14:40-0400 Body height 168.91 cm DO [employer] Work Phone: [facility] 08-14-2024 14:40-0400 Body mass index (BMI) [Ratio] 49.9 kg/m2 DO [employer] Work Phone: [facility] 08-14-2024 14:40-0400 Body weight 142.42 kg DO Modesto Ball Work Phone: [facility] 08-14-2024 14:40-0400 Diastolic blood pressure 70 mm[Hg] DO Modesto Ball Work Phone: [facility] 08-14-2024 14:40-0400 Heart rate 78 /min DO Modesto Ball Work Phone: [facility] 08-14-2024 14:40-0400 SaO2% (BldA) [Mass fraction] 98 % DO Modesto Ball Work Phone: [facility] 08-14-2024 14:40-0400 Systolic blood pressure 140 mm[Hg] DO Modesto Ball Work Phone: [facility] 06-22-2024 08:00-0400 Body temperature 97.9 [degF] DO Modesto Ball Work Phone: [facility] 06-22-2024 08:00-0400 Diastolic blood pressure 85 mm[Hg] DO Modesto Ball Work Phone: [facility] 06-22-2024 08:00-0400 Heart rate 64 /min DO Modesto Ball Work Phone: [facility] 06-22-2024 08:00-0400 Respiratory rate 20 /min DO Mdoesto Ball Work Phone: [facility] 06-22-2024 08:00-0400 SaO2% (BldA) [Mass fraction] 96 % DO Modesto Ball Work Phone: [facility] 06-22-2024 08:00-0400 Systolic blood pressure 146 mm[Hg] DO Modesto Ball Work Phone: [facility] 06-22-2024 05:02-0400 Body weight 143.9 kg DO Modesto Ball Work Phone: [facility] 06-20-2024 14:46-0400 Body height 167.64 cm DO Modesto Ball Work Phone: [facility] 06-18-2024 23:31-0400 Inhaled oxygen concentration 21 % DO Modesto Ball Work Phone: [facility] 06-18-2024 22:17-0400 Body temperature 98.6 [degF] DO Modesto Ball Work Phone: [facility] 06-18-2024 22:17-0400 Diastolic blood pressure 52 mm[Hg] DO Modesto Ball Work Phone: [facility] 06-18-2024 22:17-0400 Heart rate 64 /min DO Modesto Ball Work Phone: [facility] 06-18-2024 22:17-0400 Respiratory rate 18 /min DO Modesto Ball Work Phone: [facility] 06-18-2024 22:17-0400 SaO2% (BldA) [Mass fraction] 95 % DO Modesto Ball Work Phone: [facility] 06-18-2024 22:17-0400 Systolic blood pressure 95 mm[Hg] DO Modesto Ball Work Phone: [facility] 06-18-2024 15:48-0400 Body height 167.64 cm DO Modesto Ball Work Phone: [facility] 06-18-2024 15:48-0400 Body weight 144.6 kg DO Modesto Ball Work Phone: [facility] 04-23-2024 10:34-0400 Body height 170.2 cm Lalito Silva MD Work Phone: [facility] 04-23-2024 10:34-0400 Body mass index (BMI) [Ratio] 50.43 kg/m2 Lalito Silva MD Work Phone: [facility] 04-23-2024 10:34-0400 Body weight 146.06 kg Lalito Silva MD Work Phone: [facility] 04-23-2024 10:34-0400 Diastolic blood pressure 60 mm[Hg] Lalito Silva MD Work Phone: [facility] 04-23-2024 10:34-0400 Heart rate 68 /min Lalito Silva MD Work Phone: [facility] 04-23-2024 10:34-0400 Systolic blood pressure 94 mm[Hg] Lalito Silva MD Work Phone: [facility] 03-26-2024 [id number] Body height 167.64 cm [facility] 03-26-2024 14:28-0400 Body mass index (BMI) [Ratio] 51.7 kg/m2 [facility] 03-26-2024 [id number] Body weight 145.31 kg [facility] 03-26-2024 14:28-0400 Diastolic blood pressure 75 mm[Hg] [facility] 03-26-2024 14:28-0400 Heart rate 74 /min [facility] 03-26-2024 [id number] Respiratory rate 24 /min [facility] 03-26-2024 14:28-0400 Systolic blood pressure 126 mm[Hg] [facility] 12-26-2023 11:00-0500 Body height Modesto Ball Other [facility] [employer] Other 12-26-2023 11:00-0500 Body mass index (BMI) [Ratio] 53.35 kg/m2 Modesto Ball Other [facility] [employer] Other 12-26-2023 11:00-0500 Body weight 149.96 kg Modesto Ball Other [facility] [employer] Other 12-26-2023 11:00-0500 Diastolic blood pressure 79 mm[Hg] Modesto Ball Other [facility] [employer] Other 12-26-2023 11:00-0500 Respiratory rate 20 /min Modesto Ball Other [facility] [employer] Other 12-26-2023 11:00-0500 Systolic blood pressure 150 mm[Hg] Modesto Ball Other [employer] Other 10-17-2023 10:00-0500 Body height Modesto Ball Other [employer] Other 10-17-2023 10:00-0500 Body mass index (BMI) [Ratio] 53.19 kg/m2 Modesto Ball Other [employer] Other 10-17-2023 10:00-0500 Body weight 149.51 kg Modesto Ball Other [employer] Other 10-17-2023 10:00-0500 Diastolic blood pressure 83 mm[Hg] Modesto Ball Other [employer] Other 10-17-2023 10:00-0500 Respiratory rate 20 /min Modesto Ball Other [employer] Other 10-17-2023 10:00-0500 Systolic blood pressure 144 mm[Hg] Modesto Ball Other [employer] Other 10-07-2023 15:25-0500 Body height 165.1 cm Lalito Silva MD Work Phone: [facility] 10-07-2023 15:25-0500 Body mass index (BMI) [Ratio] 52.42 kg/m2 Lalito Silva MD Work Phone: [facility] 10-07-2023 15:25-0500 Body weight 142.88 kg Lalito Silva MD Work Phone: [facility] 10-07-2023 15:25-0500 Diastolic blood pressure 78 mm[Hg] Lalito Silva MD Work Phone: [facility] 10-07-2023 15:25-0500 Heart rate 80 /min Lalito Silva MD Work Phone: [facility] 10-07-2023 15:25-0500 Systolic blood pressure 118 mm[Hg] Lalito Silva MD Work Phone: [facility] 09-23-2023 10:30-0400 Body height Modesto Ball Other [employer] Other 09-23-2023 10:30-0400 Body mass index (BMI) [Ratio] 52.13 kg/m2 Modesto Ball Other [employer] Other 09-23-2023 10:30-0400 Body weight 146.51 kg Modesto Ball Other [employer] Other 09-23-2023 10:30-0400 Diastolic blood pressure 82 mm[Hg] Modesto Ball Other [employer] Other 09-23-2023 10:30-0400 Respiratory rate 20 /min Modesto Ball Other [employer] Other 09-23-2023 10:30-0400 Systolic blood pressure 147 mm[Hg] Modesto Ball Other [employer] Other 09-23-2023 09:30-0400 Body height Modesto Ball Other [employer] Other 09-23-2023 09:30-0400 Body mass index (BMI) [Ratio] 52.13 kg/m2 Modesto Ball Other [employer] Other 09-23-2023 09:30-0400 Body weight 146.51 kg Modesto Ball Other [employer] Other 09-23-2023 09:30-0400 Diastolic blood pressure 82 mm[Hg] Modesto Ball Other [employer] Other 09-23-2023 09:30-0400 Respiratory rate 20 /min Modesto Ball Other [employer] Other 09-23-2023 09:30-0400 Systolic blood pressure 147 mm[Hg] Modesto Ball Other [employer] Other 06-23-2023 11:00-0400 Body height Modesto Ball Other [employer] Other 06-23-2023 11:00-0400 Body mass index (BMI) [Ratio] 51.03 kg/m2 Modesto Ball Other [employer] Other 06-23-2023 11:00-0400 Body weight 143.43 kg Modesto Ball Other [employer] Other 06-23-2023 11:00-0400 Diastolic blood pressure 74 mm[Hg] Modesto Ball Other [employer] Other 06-23-2023 11:00-0400 Respiratory rate 20 /min Modesto Ball Other [employer] Other 06-23-2023 11:00-0400 Systolic blood pressure 116 mm[Hg] Modesto Ball Other [employer] Other 05-15-2023 00:03-0400 Diastolic blood pressure 76 mm[Hg] DO Modesto Ball Work Phone: [facility] 05-15-2023 00:03-0400 Heart rate 72 /min DO Modesto Ball Work Phone: [facility] 05-15-2023 00:03-0400 Respiratory rate 14 /min DO Modesto Ball Work Phone: [facility] 05-15-2023 00:03-0400 SaO2% (BldA) [Mass fraction] 96 % DO Modesto Ball Work Phone: [facility] 05-15-2023 00:03-0400 Systolic blood pressure 143 mm[Hg] DO Modesto Ball Work Phone: [facility] 05-14-2023 22:42-0400 Body temperature 97.5 [degF] DO Modesto Ball Work Phone: [facility] 05-14-2023 19:48-0400 Body height 170.18 cm DO Modesto Ball Work Phone: [facility] 05-14-2023 19:48-0400 Body weight 143.8 kg DO Modesto Ball Work Phone: [facility] 03-08-2023 09:15-0400 Body height 167.64 cm Modesto E Ball Work Phone: [facility] [facility] DO Work Phone: 03-08-2023 09:15-0400 Body mass index (BMI) [Ratio] 50.68 kg/m2 Modesto E Ball Work Phone: [facility] DO Work Phone: 03-08-2023 09:15-0400 Body surface area Derived from formula 2.42 m2 Modesto E Ball Work Phone: [facility] [facility] DO Work Phone: 03-08-2023 09:15-0400 Body weight 142.43 kg Modesto E Ball Work Phone: [facility] [facility] DO Work Phone: 03-08-2023 09:15-0400 Diastolic blood pressure 72 mm[Hg] Modesto E Ball Work Phone: [facility] DO Work Phone: 03-08-2023 09:15-0400 Heart rate 62 /min Modesto E Ball Work Phone: [facility] DO Work Phone: 03-08-2023 09:15-0400 Systolic blood pressure 120 mm[Hg] Modesto E Ball Work Phone: [facility] [facility] DO Work Phone: 02-22-2023 11:00-0400 Body height Modesto Ball Other [facility] [employer] Other 02-22-2023 11:00-0400 Body mass index (BMI) [Ratio] 51.58 kg/m2 Modesto Ball Other [facility] [employer] Other 02-22-2023 11:00-0400 Body weight 144.97 kg Modesto Ball Other [facility] [employer] Other 02-22-2023 11:00-0400 Diastolic blood pressure 80 mm[Hg] Modesto Ball Other [facility] [employer] Other 02-22-2023 11:00-0400 Respiratory rate 20 /min Modesto Ball Other [facility] [employer] Other 02-22-2023 11:00-0400 Systolic blood pressure 128 mm[Hg] Modesto Ball Other [facility] [employer] Other 08-24-2022 09:00-0400 Diastolic blood pressure 66 mm[Hg] DO Modesto Ball Work Phone: [facility] 08-24-2022 09:00-0400 Heart rate 62 /min DO Modesto Ball Work Phone: [facility] 08-24-2022 09:00-0400 Respiratory rate 20 /min DO Modesto Ball Work Phone: [facility] 08-24-2022 09:00-0400 SaO2% (BldA) [Mass fraction] 96 % DO Modesto Ball Work Phone: [facility] 08-24-2022 09:00-0400 Systolic blood pressure 106 mm[Hg] DO Modesto Ball Work Phone: [facility] 08-24-2022 05:19-0400 Body height 170.18 cm DO Modesto Ball Work Phone: [facility] 08-24-2022 05:19-0400 Body weight 148.3 kg DO Modesto Ball Work Phone: [facility] 08-24-2022 05:10-0400 Body temperature 97.9 [degF] DO Modesto Ball Work Phone: [facility] 07-03-2022 07:42-0400 Diastolic blood pressure 81 mm[Hg] DO Modesto Ball Work Phone: [facility] 07-03-2022 07:42-0400 Heart rate 90 /min DO Modesto Ball Work Phone: [facility] 07-03-2022 07:42-0400 Respiratory rate 18 /min DO Modesto Ball Work Phone: [facility] 07-03-2022 07:42-0400 SaO2% (BldA) [Mass fraction] 97 % DO Modesto Ball Work Phone: [facility] 07-03-2022 07:42-0400 Systolic blood pressure 130 mm[Hg] DO Modesto Ball Work Phone: [facility] 07-03-2022 05:36-0400 Body weight 142.5 kg DO Modesto Ball Work Phone: [facility] 07-02-2022 19:55-0400 Body temperature 97.9 [degF] DO Modesto Ball Work Phone: [facility] 07-02-2022 18:56-0400 Inhaled oxygen flow rate 8 L/min DO Modesto Ball Work Phone: [facility] 07-02-2022 18:18-0400 Body height 170.18 cm DO Modesto Ball Work Phone: [facility] 07-02-2022 18:18-0400 Body mass index (BMI) [Ratio] 48.5 kg/m2 DO Modesto Ball Work Phone: [facility] 06-15-2022 11:29-0400 Body height 167.64 cm Modesto E Ball Work Phone: [facility] [facility] DO Work Phone: 06-15-2022 11:29-0400 Body mass index (BMI) [Ratio] 51 kg/m2 Modesto E Ball Work Phone: [facility] [facility] DO Work Phone: 06-15-2022 11:29-0400 Body surface area Derived from formula 2.43 m2 Modesto E Ball Work Phone: [facility] DO Work Phone: 06-15-2022 11:29-0400 Body weight 143.34 kg Modesto E Ball Work Phone: [facility] [facility] DO Work Phone: 06-15-2022 11:29-0400 Diastolic blood pressure 62 mm[Hg] Modesto E Ball Work Phone: [facility] DO Work Phone: 06-15-2022 11:29-0400 Heart rate 68 /min Modesto E Ball Work Phone: [facility] [facility] DO Work Phone: 06-15-2022 11:29-0400 Systolic blood pressure 108 mm[Hg] Modesto E Ball Work Phone: [facility] DO Work Phone: 03-16-2022 08:50-0400 Body height 167.64 cm Modesto E Ball Work Phone: [facility] [facility] DO Work Phone: 03-16-2022 08:50-0400 Body mass index (BMI) [Ratio] 51.65 kg/m2 Modesto E Ball Work Phone: [facility] DO Work Phone: 03-16-2022 08:50-0400 Body surface area Derived from formula 2.44 m2 Modesto E Ball Work Phone: [facility] DO Work Phone: 03-16-2022 08:50-0400 Body weight 145.15 kg Modesto Moore Ball Work Phone: [facility] DO Work Phone: 03-16-2022 08:50-0400 Diastolic blood pressure 70 mm[Hg] Modesto Moore Ball Work Phone: [facility] DO Work Phone: 03-16-2022 08:50-0400 Heart rate 54 /min Modesto Moore Ball Work Phone: [facility] DO Work Phone: 03-16-2022 08:50-0400 Systolic blood pressure 118 mm[Hg] Modesto Moore Ball Work Phone: [facility] [facility] DO Work Phone: 09-22-2021 00:00-0400 56 1 Modesto Moore Ball Work Phone: [facility] DO Work Phone: Comment on above: [id number] 09-07-2021 09:34-0400 Body height 168.91 cm Modesto Moore Ball Work Phone: [facility] DO Work Phone: 09-07-2021 09:34-0400 Body mass index (BMI) [Ratio] 53.26 kg/m2 Modesto Moore Ball Work Phone: [facility] [facility] DO Work Phone: 09-07-2021 09:34-0400 Body surface area Derived from formula 2.5 m2 Modesto Moore Ball Work Phone: [facility] [facility] DO Work Phone: 09-07-2021 09:34-0400 Body weight 151.96 kg Modesto Moore Ball Work Phone: [facility] [facility] DO Work Phone: 09-07-2021 09:34-0400 Diastolic blood pressure 56 mm[Hg] Modesto Moore Ball Work Phone: [facility] DO Work Phone: 09-07-2021 09:34-0400 Heart rate 70 /min Modesto Moore Ball Work Phone: [facility] DO Work Phone: 09-07-2021 09:34-0400 Systolic blood pressure 92 mm[Hg] Modesto Moore Ball Work Phone: [facility] DO Work Phone: Encounters Encounter Date Encounter Type Care Provider Facility Start: 08-26-[address]25 [facility] Start: 08-24-2024 End: 08-24-2024 ambulatory Carlos Alberto GIBSON Facility:[facility] Start: 08-14-2024 End: 08-14-2024 ambulatory DO Modesto Chavarria Work Phone: [facility] Work Phone: Start: 08-14-2024 End: 08-14-2024 Patient encounter procedure DO Modesto Ball Work Phone: [facility] Work Phone: Start: 08-07-2024 Non-patient / Non-visit DO Ivan dee Ball Work Phone: [facility] Work Phone: Start: 07-12-2024 Non-patient / Non-visit DO Ivan antonioin Ball Work Phone: [facility] Work Phone: Start: 06-22-2024 Non-patient / Non-visit DO Ivan Chavarria Work Phone: [facility] Work Phone: Start: 06-19-2024 End: 06-22-2024 Evaluation and management of inpatient DO Modesto Chavarria Work Phone: [facility] Work Phone: Start: 06-18-2024 Evaluation and manag ement of inpatient DO Modesto Chavarria Work Phone: [facility] Work Phone: Start: 06-18-2024 observation encounter DO Wade Chavarria Work Phone: [facility] Work Phone: Start: 05-14-2024 End: 05-14-2024 ambulatory Carlos Alberto GIBSON Facility:[facility] Start: 04-23-2024 End: 04-23-2024 Patient encounter procedure DO Modesto Chavarria Work Phone: [facility] Work Phone: Start: 04-23-2024 End: 04-23-2024 ambulatory DO Modesto Chavarria Work Phone: 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); Pacemaker; Permanent atrial fibrillation (Multi); Essential hypertension, benign; Complete heart block (Multi); BMI 50.0-59.9, adult (Multi); SOB (shortness of breath) on exertion; Mixed hyperlipidemia Start: 03-29-2024 End: 03-29-2024 [facility] Start: 03-26-2024 End: 03-26-2024 ambulatory [facility] Work Phone: Start: 03-26-2024 End: 03-26-2024 Patient encounter procedure [facility] Work Phone: Start: 12-26-2023 End: 12-26-2023 ambulatory Modesto Chavarria Other [employer] Other Start: 12-26-2023 Patient encounter procedure Modesto Ariel [facility] Start: 10-17-2023 End: 10-17-2023 ambulatory Modesto Chavarria Other [employer] Other Start: 10-17-2023 Office outpatient vi sit 15 minutes Modesto Chavarria [facility] Start: 10-07-2023 End: 10-07-2023 ambulatory [facility] Start: 10-07-2023 End: 10-07-2023 Office outpatient visit 25 minutes Lalito Silva MD Work Phone: [facility] Comment on above: Pacemaker (Primary D x); Permanent atrial fibrillation (CMS/HCC); Mixed hyperlipidemia; Essential hypertension, benign; Complete heart block (CMS/HCC); Atherosclerosis of cahto coronary artery of cahto heart without angina pectoris Start: 09-23-2023 End: 09-23-2023 ambulatory Modesto Ariel Other [employer] Other Start: 09-23-2023 Office outpatient vi sit 25 minutes Modesto Ariel [facility] Start: 09-22-2023 End: 09-22-2023 ambulatory Lalito [facility] Facility:[facility] Start: 07-12-2023 End: 07-12-2023 ambulatory Modesto Chavarria Other [employer] Other Start: 07-12-2023 Telephone encounter Modesto Chavarria [facility] Start: 06-23-2023 End: 06-23-2023 ambulatory Modesto Chavarria Other [employer] Other Start: 06-23-2023 Office outpatient vi sit 25 minutes Modesto Chavarria [facility] Start: 06-07-2023 End: 06-07-2023 ambulatory Modesto Chavarria Other [employer] Other Start: 06-07-2023 Telephone encounter Modesto Chavarria [facility] Start: 05-25-2023 End: 05-25-2023 ambulatory Modesto Chavarria Other [employer] Other Start: 05-25-2023 Telephone encounter Modesto Chavarria [facility] Start: 05-23-2023 End: 05-23-2023 ambulatory Modesto Chavarria Other [employer] Other Start: 05-23-2023 Telephone encounter Modesto TELLO [facility] Start: 05-16-[address] Modesto Chavarria Facility:[id number] Start: 05-15-[address] Modesto Chavarria Facility:[id number] Start: 05-14-2023 Evaluation and manag ement of inpatient DO Modesto Chavarria Work Phone: [facility] Work Phone: Start: 05-12-2023 End: 05-12-2023 ambulatory Modesto Chavarria Other [employer] Other Start: 05-12-2023 Initial nursing faci lity care/day 35 minutes Modesto Ariel [facility] Start: 05-11-2023 End: 05-11-2023 ambulatory Modesto Chavarria Other [employer] Other Start: 05-11-2023 Telephone encounter Modesto Chavarria [facility] Start: 05-09-2023 End: 05-09-2023 ambulatory Modesto Chavarria Other [employer] Other Start: 05-09-2023 Telephone encounter Modesto Chavarria [facility] Start: 04-28-2023 End: 04-28-2023 ambulatory Modesto Chavarria Other [facility] [employer] Other Start: 04-28-2023 Telephone encounter Modesto Chavarria [facility] Start: 03-24-[address] Modesto Chavarria Facility: Start: 03-21-2023 End: 04-20-2023 ambulatory SHAIKH Shady MCCURDY Facility:[facility] Start: 03-09-2023 Rx Renewal Modesto Moore Bal l Work Phone: [facility] DO Work Phone: Start: 03-09-2023 End: 03-09-2023 ambulatory Modesto Chavarria Other [facility] [employer] Other Start: 03-09-2023 Telephone encounter Modesto Chavarria [facility] Start: 03-08-2023 Office outpatient vi sit 25 minutes Modesto Chavarria Work Phone: [facility] DO Work Phone: Start: 03-08-[address] Lalito Silva II Facility: Start: 02-22-2023 Office outpatient vi sit 25 minutes Modesto Chavarria [facility] Start: 02-22-2023 Telephone encounter Modesto Chavarria [facility] Start: 02-22-2023 End: 02-23-[address] MODESTO CHAVARRIA [facility] [employer] Other Start: 02-21-2023 End: 03-18-2023 ambulatory SHAIKH Shady MCCURDY Facility:[facility] Start: 01-19-2023 End: 02-18-2023 ambulatory SHAIKH Shady MCCURDY Facility:[facility] Start: 12-22-2022 End: 01-19-[address] MODESTO CHAVARRIA Facility:[facility] Start: 11-22-2022 End: 12-22-[address] MODESTO CHAVARRIA Facility:[facility] Start: 11-01-2022 End: 11-02-[address] MODESTO CHAVARRIA Facility:[facility] Start: 11-01-2022 Encounter for genera l adult medical examination without abnormal findings DR MODESTO CHAVARRIA [facility] [facility] Start: 10-28-2022 Adult health examination Wade Chavarria Other [facility] [employer] Other Start: 10-28-2022 End: 10-29-[address] [...] patient visit DO Modesto Chavarria Work Phone: [facility]-Emergency Room Start: 08-22-2022 End: 09-20-[address] MODESTO CHAVARRIA Facility:H1 Start: 07-22-2022 End: 08-21-[address] MODESTO CHAVARRIA Facility:H1 Start: 07-09-[address] Modesto Chavarria Facility: Start: 07-03-[address] Modesto Chavarria Facility:[id number] Start: 07-02-2022 Chart Update Modesto Moore Bal l Work Phone: [facility] [facility] DO Work Phone: Start: 07-02-[address] Lalito Silva II Facility:[id number] Start: 07-02-2022 End: 07-03-2022 Evaluation and management of inpatient DO Modesto Chavarria Work Phone: [facility] Start: 07-01-[address] Modesto Chavarria Facility: Start: 07-01-[address] Milo Cameron Facility: Start: 06-21-2022 End: 07-21-2022 ambulatory SHAIKH Shady MCCURDY Facility:H1 Start: 06-15-2022 Office outpatient vi sit 25 minutes Modesto E Ball Work Phone: [facility] 250 DO Work Phone: Start: 06-15-[address] [facility] Start: 05-21-2022 End: 06-18-2022 ambulatory SHAIKH Shady MCCURDY Facility:H1 Start: 03-16-2022 Office outpatient vi sit 25 minutes Modesto E Ball Work Phone: [facility] 250 DO Work Phone: Start: 01-21-2022 Chart Update Modesto Moore Bal l Work Phone: [facility] 250 DO Work Phone: Start: 12-04-2021 Patient encounter procedure Modesto E Ball Work Phone: [facility] [facility] DO Work Phone: Start: 09-30-2021 Message Modesto Moore Bal l Work Phone: [facility] 250 DO Work Phone: Start: 09-29-2021 Chart Update Modesto Moore Bal l Work Phone: [facility] 250 DO Work Phone: Start: 09-18-2021 Patient encounter procedure Modesto E Ball Work Phone: [facility] 600 DO Work Phone: Start: 09-07-2021 Rx Renewal Modesto Moore Bal l Work Phone: [facility] 250 DO Work Phone: Start: 09-07-2021 Office outpatient vi sit 25 minutes Modesto E Ball Work Phone: [facility] 250 DO Work Phone: Start: 09-24-2019 Encounter for other preprocedural examination Modesto Chavarria Other [employer] Other Start: 09-24-2019 Encounter for preprocedural cardiovascular examination Modesto Chavarria Other [employer] Other Start: 09-24-2019 Pre-procedure evalua tion check Modesto Chavarria Other [employer] Other Start: 09-24-2019 Preoperative cardiovascular examination Modesto Chavarria Other [employer] Other Start: 06-08-2017 End: 06-09-2017 Ambulatory DEFAULT PHYSICIAN Facility:[facility] Preoperative state Modesto Moore Ba ll Work Phone: [facility] 600 DO Work Phone: Procedures Date Procedure Procedure Detail Performing Clinician Start: 06-18-2024 CT of abdomen and pe lvis without contrast DO [employer] Work Phone: Start: 06-18-2024 Plain chest X-ray DO Be njamin Yorxs Work Phone: Start: 06-18-2024 SARS-CoV-2, Influenz a & RSV (PCR) DO [employer] Work Phone: Start: 04-23-2024 Diagnostic radiograp hy of abdomen DO [employer] Work Phone: Start: 08-24-2022 CT cervical spine wi thout contrast DO [employer] Work Phone: Start: 08-24-2022 CT of head without contrast DO [employer] Work Phone: Start: 08-24-2022 Plain chest X-ray [...] Chavarria Other Start: 11-21-2005 Total colonoscopy Wade link E Ariel Work Phone: Amputation of hand, thumb or finger Modesto E Ariel Work Phone: Arthroplasty of knee Arnulfo n E Ariel Work Phone: Cataract surgery Modesto E Ariel Work Phone: Cystoscopy Modesto E Ariel Work Phone: Dental surgical procedure Be njamin E Ball Work Phone: Depression screening Arnulfo n [employer] Other Hemorrhoidectomy Modesto E Ariel Work Phone: Insertion of pacemak er pulse generator Modesto E Ariel Work Phone: Lithotripsy Modesto E Ariel Work Phone: Pyloromyotomy Modesto Moore Bal l Work Phone: Radical orchiectomy Modesto E Ariel Work Phone: Repair of cystocele Modesto E Ariel Work Phone: Repair of shoulder Modesto E Ariel Work Phone: Repair of umbilical hernia B enjamin E Ariel Work Phone: SARS Antigen (LFIA) DO Wade min Ball Work Phone: SARS Antigen (LFIA) DO Wade min Ball Work Phone: Screening for malign ant neoplasm of prostate Modesto Chavarria Other Plan of Treatment Date Care Activity Detail Author Start: 08-24-2032 DTaP/Tdap/Td Vaccine s (5 - Td or Tdap) DTaP/Tdap/Td Vaccines (5 - Td or Tdap) [facility] Start: 08-24-2032 DTaP/Tdap/Td Vaccine s (7 - Td or Tdap) DTaP/Tdap/Td Vaccines (7 - Td or Tdap) [facility] Start: 10-25-2024 End: 10-25-2024 Patient encounter procedure 10/25/2024 3:00 PM EST Office Visit [facility] [address] [place] [id number] Michael Mullen MD [address] [place] [address] [facility] Start: 06-22-2024 [facility] Start: 06-19-2024 aPTT in Platelet poo r plasma by Coagulation assay [facility] Start: 06-19-2024 [facility] Start: 06-18-2024 End: 06-18-2024 [facility] Start: 06-18-2024 Physical therapy procedure [facility] Start: 06-18-2024 Referral to occupati onal therapist [facility] Start: 06-18-2024 Hospital admission [facility] Start: 04-23-2024 End: 04-23-2025 Comprehensive metabolic 2000 panel - Serum or Plasma Comprehensive Metabolic Panel Lab Routine Essential hypertension, benign Expected: 04/23/2024 (Approximate), Expires: 04/23/2025 [facility] Service Area Work Phone: Comment on above: Expected: 04/23/2024 (Approximate), Expires: 04/23/2025 Start: 04-23-2024 End: 04-23-2025 Natriuretic peptide B [Mass/volume] in Blood B-Type Natriuretic Peptide Lab Routine SOB (shortness of breath) on exertion Expected: 04/23/2024 (Approximate), Expires: 04/23/2025 [facility] Work Phone: Comment on above: Expected: 04/23/2024 (Approximate), Expires: 04/23/2025 Start: 04-20-2024 End: 04-20-2024 Patient encounter procedure 04/20/2024 2:40 PM EDT Office Visit [facility] [address] [place] [phone] Lalito Silva MD [address] [place] [address] [facility] Start: 10-29-2023 Medicare Annual Well ness Visit Medicare Annual Wellness Visit (AWV) [facility] Start: 10-07-2023 FUV, Provider: Lalito Silva, Status: Pen, Time: 2:50 PM FUV, Provider: Lalito Silva, Status: Pen, Time: 2:50 PM [facility] [facility] DO Work Phone: Start: 07-22-2023 COVID-19 Vaccine () COVID-19 Vaccine () [facility] Start: 07-22-2023 Influenza vaccination Influenza Vacc ine (#1) [facility] Start: 05-27-2023 [facility] Start: 05-26-2023 [facility] Start: 05-25-2023 [facility] Start: 05-24-2023 [facility] Start: 05-23-2023 [facility] Start: 05-22-2023 [facility] Start: 05-21-2023 [facility] Start: 05-20-2023 [facility] Start: 05-19-2023 [facility] Start: 05-18-2023 [facility] Start: 05-17-2023 [facility] Start: 05-16-2023 [facility] Start: 05-15-2023 [facility] Start: 05-14-2023 Referral to bulk receiver [facility] Start: 05-14-2023 Physical therapy procedure [facility] Start: 05-14-2023 Referral to occupati onal therapist [facility] Start: 05-14-2023 Hospital admission [facility] Start: 05-14-2023 End: 05-14-2023 [facility] Start: 05-14-2023 CT cervical spine without contrast CT cervical spine wo con [facility] Start: 05-14-2023 CT Cervical spine WO contrast [facility] Start: 05-14-2023 CT of head without contrast CT head/brain wo con [facility] Start: 05-14-2023 CT Unspecified body region WO contrast [facility] Start: 05-14-2023 CT Chest WO contrast [facility] Start: 05-14-2023 CT of chest without contrast CT chest wo [facility] Start: 03-08-2023 FUV, Provider: Lalito Silva, Status: Pen, Time: 9:10 AM FUV, Provider: Lalito Silva, Status: Pen, Time: 9:10 AM -[facility] [facility] DO Work Phone: Start: 10-17-2022 COVID-19 Vaccine (5 - Pfizer series) COVID-19 Vaccine (5 - Pfizer series) [facility] Start: 08-24-2022 [facility] Start: 07-09-2022 CRISTOFER, Provider : LINDA TRACY GAS BURNER OPERATOR 1,[id number], Status: Pen, Time: 9:30 AM CRISTOFER, Provider: LINDA TRACY GAS BURNER OPERATOR 1,[id number], Status: Pen, Time: 9:30 AM [facility] 250 DO Work Phone: Start: 07-03-2022 [facility] Start: 07-02-2022 End: 07-02-2022 [facility] Start: 07-02-2022 Insertion of Pacemak er Lead into Right Ventricle, Percutaneous Approach Insertion of Pacemaker Lead into Right Ventricle, Percutaneous Approach [facility] Start: 07-02-2022 Insertion of Pacemak er, Single Chamber into Chest Subcutaneous Tissue and Fascia, Percutaneous Approach Insertion of Pacemaker, Single Chamber into Chest Subcutaneous Tissue and Fascia, Percutaneous Approach [facility] Start: 06-15-2022 FUV, Provider: Lalito Silva, Status: Pen, Time: 11:30 AM FUV, Provider: Lalito Silva, Status: Pen, Time: 11:30 AM [facility] 250 DO Work Phone: Start: 03-16-2022 FUV, Provider: Lalito Silva, Status: Pen, Time: 8:40 AM FUV, Provider: Lalito Silva, Status: Pen, Time: 8:40 AM -[facility] 250 DO Work Phone: Start: 02-09-2022 Glaucoma screening Diabetes: R etinopathy Screening [facility] Start: 09-22-2021 [facility], Provider: Naeem Ronquillo, Status: Pen, Time: 1:00 PM [facility], Provider: Naeem Ronquillo, Status: Pen, Time: 1:00 PM [facility] 600 DO Work Phone: Start: 11-21-2017 Pneumococcal Vaccine : 65+ Years (2 - PCV) Pneumococcal Vaccine: 65+ Years (2 - PCV) [facility] Start: 2005 RSV patient s and/or patients aged 60+ years (1 - 1-dose 60+ series) RSV patients and/or patients aged 60+ years (1 - 1-dose 60+ series) [facility] Start: 1995 Zoster Vaccines (1 of 2) Zoste r Vaccines (1 of 2) [facility] Start: 1964 Urine screening for protein Diabetes: Urine Protein Screening [facility] Start: 1963 Hepatitis C screening Hepatitis C [facility] Start: 1955 Diabetic foot examination Diabetes: Foot Exam [facility] Start: 1945 Hemoglobin A1c measurement Diabetes: Hemoglobin A1C [facility] Start: 1945 Lipid panel Lipid Panel [facility] Start: 1945 Medicare Annual Well ness Visit Medicare Annual Wellness Visit (AWV) [facility] Albumin/Globulin ratio [facility] Anion gap measurement [facility] Basophils [#/volume] in Blood by Automated count [facility] Basophils/100 leukoc ytes in Blood by Automated count [facility] Eosinophils [#/volum e] in Blood [facility] Eosinophils/100 leukocytes in Blood by Automated count [facility] Erythrocyte distribu tion width [Ratio] by Automated count [facility] Erythrocytes [#/volu me] in Blood [facility] Globulin [Mass/volum e] in Serum [facility] Hematocrit [Volume Fraction] of Blood [facility] Hemoglobin [Mass/vol ume] in Blood [facility] Leukocytes [#/volume ] corrected for nucleated erythrocytes in Blood by Automated coun [facility] Leukocytes [#/volume ] in Blood [facility] Lymphocytes [#/volum e] in Blood by Automated count [facility] Lymphocytes/100 leukocytes in Blood by Automated count [facility] MCH [Entitic mass] b y Automated count [facility] MCHC [Mass/volume] b y Automated count [facility] MCV [Entitic volume] by Automated count [facility] Monocytes [#/volume] in Blood by Automated count [facility] Monocytes/100 leukoc ytes in Blood by Automated count [facility] Neutrophils [#/volum e] in Blood by Automated count [facility] Neutrophils/100 leukocytes in Blood by Automated count [facility] Nucleated erythrocyt es [Presence] in Blood by Automated count [facility] Patient Education Concussion, Ad ult (DC) Laceration Repair With Stitches (DC) [facility] Work Phone: Patient referral [facility] Work Phone: Platelet mean volume [Entitic volume] in Blood by Automated count [facility] Platelets [#/volume] in Blood [facility] SARS-CoV-2 (COVID-19 ) N gene [Presence] in Respiratory specimen by NA with probe detection [facility] Work Phone: Immunizations Immunization Date Immunization Notes Care Provider Carla mccarthy 09-23-2023 influenza virus vaccine, unspecified formulation [facility] 09-23-2023 influenza, high dose seasonal, preservative-free Modesto Chavarria Other [employer] Other 08-24-2022 tetanus toxoid, redu siri diphtheria toxoid, and acellular pertussis vaccine, adsorbed DO Modesto Chavarria Work Phone: [facility] 08-22-2022 COVID-19 Vaccine Pfi zer - Documentation Purposes Only Modesto Chavarria Other [facility] [employer] Other 08-22-2022 diphtheria, tetanus toxoids and acellular pertussis vaccine, unspecified formulation Modesto Chavarria Other [facility] 08-22-2022 Fluzone High-Dose Quadrivalent 0.7 ML Intramuscular Suspension Prefilled Syringe Modesto Chavarria Work Phone: [facility] DO Work Phone: 08-22-2022 influenza virus vaccine, split virus (incl. purified surface antigen) Modesto Chavarria Other [facility] [employer] Other 08-22-2022 influenza, high dose seasonal, preservative-free Lalito Silva MD Work Phone: [facility] Work Phone: 08-22-2022 Pfizer COVID-19 Vac Bivalent 30 MCG/0.3ML Intramuscular Suspension Modesto Chavarria Work Phone: [place] [address] DO Work Phone: 08-22-2022 influenza virus vaccine, unspecified formulation Lalito Silva MD Work Phone: [facility] 02-02-2022 diphtheria, tetanus toxoids and pertussis vaccine Modesto Chavarria Work Phone: [facility] 02-02-2022 tetanus toxoid, redu siri diphtheria toxoid, and acellular pertussis vaccine, adsorbed Lalito Silva MD Work Phone: [facility] Work Phone: 08-26-2021 Pfizer-BioNTech COVID-19 Vacc 30 MCG/0.3ML Intramuscular Suspension Modesto Chavarria Work Phone[facility] [place] [facility] DO Work Phone: 08-21-2021 influenza virus vaccine, split virus (incl. purified surface antigen) Modesto Chavarria Other [facility] [employer] Other 08-21-2021 influenza virus vaccine, unspecified formulation [facility] 08-07-2021 influenza virus vaccine, unspecified formulation Lalito Silva MD Work Phone: [facility] Work Phone: 08-07-2021 influenza, injectabl e, quadrivalent, contains preservative Modesto Chavarria Work Phone: [facility] [employer] DO Work Phone: Comment on above: Series: 01-12-2021 Pfizer-BioNTech COVID-19 Vacc 30 MCG/0.3ML Intramuscular Suspension Modesto Chavarria Work Phone: [facility] DO Work Phone: 12-22-2020 Pfizer-BioNTech COVID-19 Vacc 30 MCG/0.3ML Intramuscular Suspension Modesto Chavarria Work Phone: [facility] [employer] DO Work Phone: 07-29-2020 influenza virus vaccine, split virus (incl. purified surface antigen) Modesto Chavarria Other [employer] Other 07-29-2020 influenza virus vaccine, unspecified formulation [facility] 07-22-2020 influenza, seasonal, injectable Modesto Chavarria Work Phone: [facility] Work Phone: 09-14-2019 influenza virus vaccine, split virus (incl. purified surface antigen) Modesto Chavarria Other [facility] [employer] Other 09-14-2019 influenza virus vaccine, unspecified formulation [facility] 08-21-2019 influenza virus vaccine, unspecified formulation Modesto Chavarria Work Phone: [facility] DO Work Phone: 04-29-2019 tetanus toxoid, redu siri diphtheria toxoid, and acellular pertussis vaccine, adsorbed Lalito Silva MD Work Phone: [facility] Work Phone: 04-28-2019 diphtheria, tetanus toxoids and acellular pertussis vaccine, unspecified formulation Modesto Chavarria Other [facility] 08-21-2018 influenza virus vaccine, unspecified formulation Modesto Chavarria Work Phone: [facility] [employer] [facility] DO Work Phone: 08-10-2018 influenza virus vaccine, split virus (incl. purified surface antigen) Modesto Chavarria Other [facility] [employer] Other 08-10-2018 influenza virus vaccine, unspecified formulation [facility] 08-10-2018 Seasonal trivalent influenza vaccine, adjuvanted, preservative free Modesto Chavarria Work Phone: [facility] DO Work Phone: 08-09-2017 influenza virus vaccine, split virus (incl. purified surface antigen) Modesto Chavarria Other [facility] [employer] Other 08-09-2017 influenza virus vaccine, unspecified formulation [facility] 08-09-2017 influenza, high dose seasonal, preservative-free Modesto Chavarria Work Phone: [facility] DO Work Phone: 11-21-2016 influenza virus vaccine, unspecified formulation Modesto Chavarria Work Phone: [place] [address] DO Work Phone: 11-21-2016 pneumococcal polysaccharide vaccine, 23 valent Modesto Chavarria Work Phone: [facility] DO Work Phone: 08-05-2016 influenza virus vaccine, split virus (incl. purified surface antigen) Modesto Chavarria Other [facility] [employer] Other 08-05-2016 influenza virus vaccine, unspecified formulation [facility] 08-05-2016 pneumococcal conjuga te vaccine, 13 valent Modesto Chavarria Other [facility] 08-15-2014 tetanus and diphther ia toxoids, adsorbed, preservative free, for adult use (5 Lf of tetanus toxoid and 2 Lf of diphtheria toxoid) Modesto Chavarria Other [facility] 12-11-2013 pneumococcal polysaccharide vaccine, 23 valent Modesto Chavarria Other [facility] 08-01-2013 tetanus and diphther ia toxoids, adsorbed, preservative free, for adult use (5 Lf of tetanus toxoid and 2 Lf of diphtheria toxoid) Modesto Chavarria Other [facility] Payers Date Payer Category Payer Self-pay [id number] 2008 Medicare [id number] 1959 Medicare [id number] 1959 Unknown [id number] 1945 Unknown [id number] 2.16.84 0.1.661371.3.579.2.593 1945 Unknown [id number] 2.16.84 0.1.154260.3.579.2.593 1945 Unknown [id number] 2.16.84 0.1.589333.3.579.2.593 1945 Unknown [id number] 2.16.84 0.1.818039.3.579.2.593 1945 Unknown [id number] 2.16.84 0.1.240470.3.579.2.593 1945 Unknown [id number] 2.16.84 0.1.356413.3.579.2.593 1945 Unknown [id number] 2.16.84 0.1.157977.3.579.2.593 1945 Unknown [id number] 2.16.84 0.1.131333.3.579.2.593 1945 Unknown [id number] 2.16.84 0.1.262058.3.579.2.593 1945 Unknown [id number] 2.16.84 0.1.641737.3.579.2.593 1945 Unknown [id number] 2.16.84 0.1.748853.3.579.2.593 1945 Unknown [id number] 2.16.84 0.1.286547.3.579.2.593 1945 Unknown [id number] 2.16.84 0.1.891278.3.579.2.593 1945 Unknown [id number] 2.16.84 0.1.286191.3.579.2.593 1945 Unknown [id number] 2.16.84 0.1.134169.3.579.2.593 1945 Unknown [id number] 2.16.84 0.1.527403.3.579.2.593 1945 Unknown [id number] 2.16.84 0.1.445883.3.579.2.593 1945 Unknown [id number] 2.16. 840.1.703887.3.579.2.356 1945 Unknown [id number] 2.16. 840.1.080292.3.579.2.356 1945 Unknown [id number] 2.16. 840.1.029251.3.579.2.356 1945 Unknown [id number] 2.16. 840.1.298972.3.579.2.356 1945 Unknown [id number] 2.16. 840.1.436211.3.579.2.356 1945 Unknown [id number] 2.16. 840.1.500229.3.579.2.356 1945 Unknown [id number] 2.16. 840.1.584781.3.579.2.356 1945 Unknown [id number] 2.16. 840.1.154961.3.579.2.356 1945 Unknown [id number] 2.16. 840.1.192134.3.579.2.356 1945 Unknown [id number] 2.16. 840.1.702028.3.579.2.356 1945 Unknown [id number] 2.16. 840.1.543357.3.579.2.356 1945 Unknown [id number] 2.16. 840.1.690521.3.579.2.356 1945 Unknown [id number] 2.16. 840.1.645578.3.579.2.356 1945 Unknown [id number] 2.16.8 40.1.112651.3.579.2.1244 1945 Unknown [id number] 2.16.8 40.1.525205.3.579.2.1244 1945 Unknown [id number] 2.16.8 40.1.409821.3.579.2.727 1945 Unknown [id number] 2.16.8 40.1.165488.3.579.2.727 1945 Unknown [id number] 2.16.8 40.1.966953.3.579.2.727 1945 Unknown [id number] 2.16.8 40.1.760366.3.579.2.727 1945 Unknown [id number] 2.16.8 40.1.966578.3.579.2.727 Unknown Unknown [facility] Health Claims [id number] Unknown [id number] Unknown [id number] 2.16.8 40.1.888946.3.579.2.531 Unknown [id number] 2.16.8 40.1.970110.3.579.2.531 Social History Date Type Detail Facility Start: 10-06-2023 End: 04-23-2024 No illicit drug use No illicit drug use [facility] [address] DO Work Phone: Comment on above: QUIT 1996; Start: 07-02-2022 End: 06-18-2024 Tobacco smoking status LAIS Ex-smoker (finding) [facility] Start: 1945 Sex Assigned At Male [facility] Start: 08-24-2022 Tobacco smoking status LAIS Tobacco smoking consumption unknown (finding) [facility] Start: 10-06-2023 End: 04-23-2024 Sex Assigned At Formerly [facility] [employer] Other History of tobacco use Current smoker [facility] Work Phone: History of tobacco use Cigarette Smoker [facility] Work Phone: Start: 10-07-2023 End: 04-23-2024 Alcohol intake Current drinker of alcohol (finding) [facility] Work Phone: Start: 10-06-2023 Alcohol Comment occasional [facility] Work Phone: Start: 1945 Sex Assigned At Not on file [facility] Work Phone: Start: 09-27-2023 End: 04-23-2024 Exposure to SARS-CoV-2 (event) Not sure [facility] Start: 06-19-2024 Tobacco smoking status LAIS Never smoked tobacco (finding) [facility] Medical Equipment Procedure Code Equipment Code Equipment Origin al Text Equipment Identifier Dates Insertion, pacemaker Endocardial pacing lead [id number] FDA Start: 07-02-2022 Insertion, pacemaker Single-chamber implantable pacemaker, rate-responsive [id number] FDA Start: 07-02-2022 Pen Needle, Diab [...] Facility 06-22-2024 Functional status Patient at Baseline 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 Work Phone: Mental Status Date Assessment Result Facility 06-22-2024 Cognitive function Cognitive Sta tus Patient at Baseline [facility] Work Phone: 07-03-2022 Cognitive function Cognitive Sta tus Patient at Baseline [facility] Work Phone: Clinical Notes 02-22-2023 to 08-24-2024 Note Date & Type Note Facility 08-24-2024 Note Patient Education Urology Urinary Incontinence Urinary incontinence refers to a condition in which a person is unable to control where and when to pass urine. A person with this condition will urinate involuntarily. This means that the person urinates when he or she does not mean to. What are the causes? This condition may be caused by: ? Medicines. ? Infections. ? Constipation. ? Overactive bladder muscles. ? Weak bladder muscles. ? Weak pelvic floor muscles. These muscles provide support for the bladder, intestine, and, in women, the uterus. ? Enlarged prostate in men. The prostate is a gland near the bladder. When it gets too big, it can pinch the urethra. With the urethra blocked, the bladder can weaken and lose the ability to empty properly. ? Surgery. ? Emotional factors, such as anxiety, stress, or post-traumatic stress disorder (PTSD). ? Spinal cord injury, nerve injury, or other neurological conditions. ? Pelvic organ prolapse. This happens in women when organs move out of place and into the vagina. This movement can prevent the bladder and urethra from working properly. What increases the risk? The following factors may make you more likely to develop this condition: ? Age. The older you are, the higher the risk. ? Obesity. ? Being physically inactive. ? and childbirth. ? Menopause. ? Diseases that affect the nerves or spinal cord. ? Long-term, or chronic, coughing. This can increase pressure on the bladder and pelvic floor muscles. What are the signs or symptoms? Symptoms may vary depending on the type of urinary incontinence you have. They include: ? A sudden urge to urinate, and passing urine involuntarily before you can get to a bathroom (urge incontinence). ? Suddenly passing urine when doing activities that force urine to pass, such as coughing, laughing, exercising, or sneezing (stress incontinence). ? Needing to urinate often but urinating only a small amount, or constantly dribbling urine (overflow incontinence). ? Urinating because you cannot get to the bathroom in time due to a physical disability, such as arthritis or injury, or due to a communication or thinking problem, such as Alzheimer's disease (functional incontinence). How is this diagnosed? This condition may be diagnosed based on: ? Your medical history. ? A physical exam. ? Tests, such as: ? Urine tests. ? X-rays of your kidney and bladder. ? Ultrasound. ? CT scan. ? Cystoscopy. In this procedure, a health care provider inserts a tube with a light and camera (cystoscope) through the urethra and into the bladder to check for problems. ? Urodynamic testing. These tests assess how well the bladder, urethra, and sphincter can store and release urine. There are different types of urodynamic tests, and they vary depending on what the test is measuring. To help diagnose your condition, your health care provider may recommend that you keep a log of when you urinate and how much you urinate. How is this treated? Treatment for this condition depends on the type of incontinence that you have and its cause. Treatment may include: ? Lifestyle changes, such as: ? Quitting smoking. ? Maintaining a healthy weight. ? Staying active. Try to get 150 minutes of moderate-intensity exercise every week. Ask your health care provider which activities are safe for you. ? Eating a healthy diet. ? Avoid high-fat foods, like fried foods. ? Avoid refined carbohydrates like white bread and white rice. ? Limit how much alcohol and caffeine you drink. ? Increase your fiber intake. Healthy sources of fiber include beans, whole grains, and fresh fruits and vegetables. ? Behavioral changes, such as: ? Pelvic floor muscle exercises. ? Bladder training, such as lengthening the amount of time between bathroom breaks, or using the bathroom at regular intervals. ? Using techniques to suppress bladder urges. This can include distraction techniques or controlled breathing exercises. ? Medicines, such as: ? Medicines to relax the bladder muscles and prevent bladder spasms. ? Medicines to help slow or prevent the growth of a man's prostate. ? Botox injections. These can help relax the bladder muscles. ? Treatments, such as: ? Using pulses of electricity to help change bladder reflexes (electrical nerve stimulation). ? For women, using a medical doctor md to prevent urine leaks. This is a small, tampon-like, disposable device that is inserted into the urethra. ? Injecting collagen or carbon beads (bulking agents) into the urinary sphincter. These can help thicken tissue and close the bladder opening. ? Surgery. Follow these instructions at home: Lifestyle ? Limit alcohol and caffeine. These can fill your bladder quickly and irritate it. ? Keep yourself clean to help prevent odors and skin damage. Ask your health care provider about special skin creams and cleansers that can protect the (more content not included)... [facility] 06-21-2024 Progress note Note Date/Time June 21, 2024 1:42pm [facility] [address] [place], [place] [id number] Hospitalist Progress Note Signed Patient: Nirmal Chaidez MR#: [id number] : 1945 Acct:[id number] Age/Sex: 78 / M Adm Date: 4 Loc: 3T Room: [address] [place] [address] Type: ADM IN Attending Dr: Stalin Miranda [...] 11:21 06/21/24 11:21 06/21/24 11:21 06/21/24 11:21 06/18/24 23:31 Narrative: Constitutional: Obese WM, [...] <Electronically signed by Stalin Miranda MD> 06/21/[address] [facility] Work Phone: 1(281) 133-600307-31-2024 Progress note Author Stalin Miranda [facility] June 20, 2024 1:50pm Note Date/Time June 20, 2024 1:27 pm [facility] [address] [place] [address] Hospitalist Progress Note Signed Patient: Nirmal Chaidez MR#: [id number] : 1945 Acct:[id number] Age/Sex: 78 / M Adm Date: 4 Loc: 3T Room: [address] [place] [address] Type: ADM IN Attending Dr: Stalin Miranda [...] want to move forward with going to [facility] need 2 additional midnights for patient to be approved for SNF. Exam Physical Exam Vital Signs: Temp Pulse Resp BP Pulse Ox O2 Del Method FiO2 98.4 F 58 L 20 93/60 L 94 L Room Air 21 06/20/24 11:41 06/20/24 11:41 06/20/24 11:41 06/20/24 [...] Dose Route Start Last Admin Trade Name Ashanti PRN Reason Stop Dose Admin Acetaminophen 650 [...] Lactated Ringers IV 06/20/24 22:24 75 mls/hr .[id number] KAYKAY Administration Insulin Glargine 10 units 06/19/24 [...] code Documented By: Stalin Miranda MD 4 [id number] Signed By: <Electronically signed by Stalin Miranda MD> 06/20/24 9370 [facility] Work Phone: 1(685) 811-340507-31-2024 Progress note Author Michael Mullen [facility] June 20, 2024 11:29am Note Date/Time June 20, 2024 11:2 9am [facility] [address] [place] [address] Cardiology Progress Note Signed Patient: Nirmal Chaidez MR#: [id number] : 1945 Acct:[id number] Age/Sex: 78 / M Adm Date: 4 Loc: 3T Room: [address] [place] [address] Type: ADM IN Attending Dr: Stalin Miranda [...] MPV Neut % (Auto) Lymph % (Auto) [place] % (Auto) Eos % (Auto) Baso % (Auto) Nucleat RBC Rel Count Neut # (Auto) Lymph # (Auto) [place] # (Auto) Eos # (Auto) Baso # [...] % (Auto) 70.3 Lymph % (Auto) 18.3 [place] % (Auto) 8.0 Eos % (Auto) 2.7 Baso % (Auto) 0.7 Nucleat RBC Rel Count 0.2 Neut # (Auto) 6.1 Lymph # (Auto) 1.6 [place] # (Auto) 0.7 Eos # (Auto) 0.2 [...] By: <Electronically signed by MD Michael Mullen> 06/20/[address] [facility] Work Phone: 1(307) 417-931207-30-2024 Progress note Author Stalin Miranda [facility] Jessica 30th, 2024 8:14pm Note Date/Time June 19, 2024 7:37 pm [facility] [address] [place] [address] Hospitalist Progress Note Signed Patient: Nirmal Chaidez MR#: [id number] : 1945 Acct:[id number] Age/Sex: 78 / M Adm Date: 4 Loc: 3T Room: [address] [place] [address] Type: ADM IN Attending Dr: Stalin Miranda [...] Actually states that patient going to a [facility] facility may be in his best interest, [...] Full code Documented By: Stalin Miranda MD 1935 Signed By: <Electronically signed by Stalin Miranda MD> 06/19/242013 [facility] Work Phone: 1([phone]) 856-407907-30-2024 Consult note Author Michael Mullen [facility] June 19, 2024 11:38am Note Date/Time June 19, 2024 11:3 4am [facility] [address] [place] [address] Cardiology Consult Note Signed Patient: Nirmal Chaidez MR#: [id number] : 1945 Acct:[id number] Age/Sex: 78 / M Adm Date: 4 Loc: Room: [address] [place] [address] Type: ADM INOo Attending Dr: Stalin Miranda [...] system is negative other than mentioned above [facility] Medical History (Updated 06/18/24 @ 23:00 by [...] Lymph # (Auto) 2.2 1.9 (1.00-4.8) x10E3/uL [place] # (Auto) 0.7 0.8 (0.0-0.8) x10E3/uL Eos [...] ml @ 999 mls/hr IV .Q31M ONE Rx#:[id number] Oral 200 / 200 Other: # Voids [...] device function 5. Check echocardiogram Documented By: Michael Mullen MD 06/19/24 1129 Signed By: <Electronically signed by MD Michael Mullen> 06/19/24 1138 [facility] Work Phone: 1(374) 569-476307-30-2024 History and physical note Author Stalin Miranda [facility] June 18, 2024 11:07pm Note Date/Time June 18, 2024 10:0 5pm [facility] [address] [place] [address] Hospitalist H&P Signed Patient: Nirmal Chaidez MR#: [id number] : 1945 Acct:[id number] Age/Sex: 78 / M Adm Date: 4 Loc: Room: [address] [place] [address] Type: ADM INOo Attending Dr: Stalin Miranda [...] that which is noted above in H[facility] Medical History (Updated 06/18/24 @ 23:00 by [...] % (Auto) 18.8 % (.) 06/18/24 15:52 [place] % (Auto) 5.6 % (.) 06/18/24 15:52 Eos % (Auto) 1.1 % (.) 06/18/24 15:52 Baso % (Auto) 0.6 % (.) 06/18/24 15:52 Nucleat RBC Rel Count 0.1 /100 WBC (0-0.5) 06/18/24 15:52 Neut # (Auto) 8.6 x10E3/uL (1.8-7.7) H 06/18/24 15:52 Lymph # (Auto) 2.2 x10E3/uL (1.00-4.8) 06/18/24 15:52 [place] # (Auto) 0.7 x10E3/uL (0.0-0.8) 06/18/24 15:52 [...] pH 5.5 (5.0-9.0) 06/18/24 19:00 Ur Specific Menan 1.014 (1.001-1.030) 06/18/24 19:00 Urine Protein Negative [...] 2 Documented By: Stalin Miranda MD 4 [id number] Signed By: <Electronically signed by Stalin Miranda MD> 06/18/24 9122 [facility] Work Phone: 1(322) 199-804006-03-2024 History of Present illness Narrative* Lalito Silva [...] one tablet by mouth as directed by [facility], Disp: , Rfl: 1. Pacemaker [...] - B-Type Natriuretic Peptide 7. Atherosclerosis of cahto coronary artery of cahto heart without angina pectoris No recurrence of any symptoms suspicious for progression of coronary disease 8. Mixed hyperlipidemia Review of treatment strategy demonstrates acceptable control Pacemaker/Defibrillator follow up per routine Scribe Attestation By signing my name below, I, Bella Castillo LPN , Scribe attest that this documentation has been prepared [...] exam, discussion and plan. documented in this [facility] Work Phone: 1(161) 724-492906-03-2024 Instructions* Patient Instructions* Destiney Rodrigez LPN - [...] time of your visit. [facility] 1(322) 458-515802-05-2024 Evaluation note* Encounter Date Diagnosis Assessment Notes [...] are maintaining regular scheduled appts with their bulk receiver. No bleeding complications Dec, Stage 3a chronic [...] use, the patient reduces the risk for IL, CVA, HTN, cardiac dysrhythmias and sudden cardiac [...] diastolic congestive heart failure (ICD-10 - I50.33) [employer] Other 11-27-2023 Evaluation note* Encounter Date Diagnosis [...] and plan to stop Metformin in future [employer] Other 11-27-2023 Evaluation note* Encounter Date Diagnosis [...] index [BMI] 50.0-59.9, adult (ICD-10 - Z68.43) [employer] Other 11-17-2023 History of Present illness Narrative* [...] one tablet by mouth as directed by [facility], Disp: , Rfl: Assessment/Plan 1. Pacemaker Satisfactory device checks demonstrating greater than 10-year battery life 2. Permanent atrial fibrillation (CMS/HCC) Treated with rate control and antithrombotic therapy. Stable 3. Mixed hyperlipidemia Well-controlled on current therapy 4. Essential hypertension, benign Well-controlled on current therapy 5. Complete heart block (CMS/HCC) Necessitating pacemaker implantation. Device checks are satisfactory 6. Atherosclerosis of cahto coronary artery of cahto heart without angina pectoris Asymptomatic. [facility] Work Phone: 1(876) 893-567011-17-2023 Instructions* Patient Instructions* Ashleigh Starks LPN - [...] follow up per routine [facility] Work Phone: 1(280) 380-603511-03-2023 Evaluation note* Encounter Date Diagnosis Assessment Notes [...] are maintaining regular scheduled appts with their bulk receiver. No bleeding complications Sep, Stage 3a chronic [...] use, the patient reduces the risk for IL, CVA, HTN, cardiac dysrhythmias and sudden cardiac [...] block (ICD-10 - I44.2) s/p PM insertion. [employer] Other 11-03-2023 Evaluation note* Encounter Date Diagnosis [...] are maintaining regular scheduled appts with their bulk receiver. No bleeding complications Sep, Stage 3a chronic [...] use, the patient reduces the risk for IL, CVA, HTN, cardiac dysrhythmias and sudden cardiac [...] block (ICD-10 - I44.2) s/p PM insertion. [employer] Other 08-03-2023 Evaluation note* Encounter Date Diagnosis [...] are maintaining regular scheduled appts with their bulk receiver. No bleeding complications Jun, Stage 3a chronic [...] apnea) (ICD-10 - G47.33) AHI 58, BiPAP /14 This patient is aware of the benefits associated with QUETA: With continued use, the patient reduces the risk for IL, CVA, HTN, cardiac dysrhythmias and sudden cardiac [...] severe symptoms Aware will increase BS temporarily [employer] Other 08-03-2023 Evaluation note* Encounter Date Diagnosis [...] are maintaining regular scheduled appts with their bulk receiver. No bleeding complications Jun, Stage 3a chronic [...] use, the patient reduces the risk for IL, CVA, HTN, cardiac dysrhythmias and sudden cardiac deaths.The patient is also aware of the association between QUETA and morning headaches, daytime somnolence, fatigue and obesity Noncompliant Jun, Acute allergic rhinitis due to pollen (ICD-10 - J30.1) Flonase and Yumiko during exacerbation of allergic symptoms. Kenalog injection for severe symptoms Aware will increase BS temporarily [employer] Other 07-18-2023 Evaluation note* Encounter Date Diagnosis Assessment Notes Treatment Notes Treatment Clinical Notes May, Type 2 diabetes mellitus with hyperglycemia, without long-term current use of insulin (ICD-10 - E11.65) [employer] Other 07-05-2023 Evaluation note* Encounter Date Diagnosis Assessment Notes Treatment Notes Treatment Clinical Notes May, Type 2 diabetes mellitus with hyperglycemia, without long-term current use of insulin (ICD-10 - E11.65) [employer] Other 07-03-2023 Evaluation note* Encounter Date Diagnosis Assessment Notes Treatment Notes Treatment Clinical Notes May, Vitamin D deficiency (ICD-10 - E55.9) [employer] Other 06-25-2023 History and physical note Author Stalin Miranda [facility] May 14, 2023 11:31pm Note Date/Time May 14, 2023 10:1 7pm [facility] [address] [place] [address] Hospitalist H&P Signed Patient: Nirmal Chaidez MR#: [id number] : 1945 Acct:[id number] Age/Sex: 77 / M Adm Date: 3 Loc: Room: [address] [place] [address] Type: ADM IN Attending Dr: Stalin Miranda [...] 3 weeks ago and was admitted to [facility] for 1 week and subsequently went [...] some CHRISTIE, with BUN/creatinine of 38/1.7 from in August 2022. Lab work otherwise within [...] for that which is noted above in [facility] Medical History A-fib COPD (chronic obstructive pulmonary [...] % (Auto) 15.6 % (.) 05/14/23 19:49 [place] % (Auto) 4.0 % (.) 05/14/23 19:49 Eos % (Auto) 1.7 % (.) 05/14/23 19:49 Baso % (Auto) 0.5 % (.) 05/14/23 19:49 Nucleat RBC Rel Count 0.1 /100 WBC (0-0.5) 05/14/23 19:49 Neut # (Auto) 8.2 x10E3/uL (1.8-7.7) H 05/14/23 19:49 Lymph # (Auto) 1.6 x10E3/uL (1.00-4.8) 05/14/23 19:49 [place] # (Auto) 0.4 x10E3/uL (0.0-0.8) 05/14/23 19:49 [...] signed by Stalin Miranda MD> 05/14/[address] [facility] Work Phone: 1(211) 881-637306-22-2023 Evaluation note* Encounter Date Diagnosis Assessment Notes [...] are maintaining regular scheduled appts with their bulk receiver. No bleeding complications Apr, Type 2 diabetes [...] use, the patient reduces the risk for IL, CVA, HTN, cardiac dysrhythmias and sudden cardiac deaths.The patient is also aware of the association between QUETA and morning headaches, daytime somnolence, fatigue and obesity, which also has been improved with continued use.The patient is compliant with treatment, wearing the equipment every night for greater than 4 hours.The patient is instructed to continue use of the CPAP for QUETA treatment. [employer] Other 04-19-2023 Evaluation note* Encounter Date Diagnosis Assessment Notes Treatment Notes Treatment Clinical Notes Feb, Cardiac pacemaker in situ (ICD-10 - Z95.0) [employer] Other 04-04-2023 Evaluation note* Encounter Date Diagnosis [...] are maintaining regular scheduled appts with their bulk receiver. Feb, Primary hypertension (ICD-10 - I10) This [...] use, the patient reduces the risk for IL, CVA, HTN, cardiac dysrhythmias and sudden cardiac [...] NESS (generalized anxiety disorder) (ICD-10 - F41.1) [employer] Other 04-04-2023 Evaluation note* Encounter Date Diagnosis Assessment Notes Treatment Notes Treatment Clinical Notes Feb, Type 2 diabetes mellitus with hyperglycemia, without long-term current use of insulin (ICD-10 - E11.65) [employer] Other Discharge summary Author Milo Cameron [facility] July 03, 2022 4:59pm Note Date/Time July 03, 2022 4: 59pm [facility] [address] [place] [address] Discharge Summary Signed Patient: Nirmal Chaidez MR#: [id number] : 1945 Acct:[id number] Age/Sex: 76 / M Adm Date: 2 Loc: Room: [address] [place] [address]: Lalito Silva MD Copies to: DO Milo Matos MD, [facility] Lalito Silva MD~ Providers Date of Discharge: 07/03/22 Discharging Provider: Milo Cameron Primary Care Provider: Modesto Chavarria Discharge Diagnosis Final Diagnosis Final Discharge Diagnosis: Syncope Permanent atrial fibrillation Bradycardia Status post successful pacemaker insertion Summary Hospital Course Hospital course: Patient was transferred from [facility] to have a permanent pacemaker placed [...] with nurse for incision check in the [facility] Office on 07/09/2022 at 9:30am. 2. Chest x-ray to be done the same day as your device check in [facility]. 3. Pacemaker/ICD clinic appointment at [facility] in 15 weeks- they will call you. 4. Office visit with Dr. Silva in the [place] [facility] in 15 weeks- we will call [...] DIRECTED Label Comments: Take as directed by [facility] allopurinol 300 mg Tablet 300 mg PO DAILY hydrocodone-acetaminophen 5-325 mg tablet 1 - 2 tab PO Q4-6H PRN (Reason: pain) 3 Days Qty: 14 0RF Documented By: Milo Cameron MD, [facility] [id number] Signed By: <Electronically signed by [facility] Milo Cameron> 07/03/229 [facility] Work Phone: Discharge summary Author Stalin Miranda [facility] June 22, 2024 1:02pm Note Date/Time June 22, 2024 12: 57pm [facility] [address] [place] [address] Discharge Summary Signed Patient: Nirmal Chaidez MR#: [id number] : 1945 Acct:[id number] Age/Sex: 78 / M Adm Date: 4 Loc: Room: [address] [place] [address]: Stalin Miranda MD Copies to: [...] Consult to Cardiology Routine Comment: Consulting Provider: [facility] [employer], [facility] Reason For Exam: Pre-syncope, TWI on EKG [...] amlodipine, torsemide. Physical and occupational therapy recommended [facility] for rehab prior to patient going home. Patient and his are agreeable to short stay at SNF to work on strengthening. Patient was discharged to [facility] for further PT/OT needs. He was discharged in stable condition. 35 minutes spent coordinating the discharge of this patient Time Spent with Patient Time spent providing/coordinating discharge services (# min): 35 Discharge Plan Discharge Plan Patient Disposition: Intermediate Facility Activity: No Activity Restriction Diet: Low-Sodium [...] % (Auto) 73.9, Lymph % (Auto) 17.0, [place] % (Auto) 6.4, Eos % (Auto) 2.0, Baso % (Auto) 0.7, Nucleat RBC Rel Count 0.1, Neut # (Auto) 7.7, Lymph # (Auto) 1.8, [place] # (Auto) 0.7, Eos # (Auto) 0.2, [...] signed by Stalin Miranda MD> 06/22/24 1302 [facility] Work Phone: Evaluation noteNo assessment information available [facility] Work Phone: Evaluation noteNo [employer] Other Evaluation note* Diagnosis Onset Date Resolution Status Acute head injury acute Fall acute Syncope acute [facility] Work Phone: Evaluation note* Diagnosis Pacemaker- Primary Cardiac pacemaker in situ Permanent atrial fibrillation (CMS/HCC) Atrial fibrillation Mixed hyperlipidemia Essential hypertension, benign Complete heart block (CMS/HCC) Atrioventricular block, complete Atherosclerosis of cahto coronary artery of cahto heart without angina pectoris documented in this encounter [facility] Work Phone: Evaluation note* Diagnosis Onset Date Resolution Status Atrial fibrillation acute Chronic kidney disease acute High cholesterol acute Hypertension acute Major depression acute QUETA (obstructive sleep apnea) acute Type 2 diabetes mellitus with hyperglycemia acute [facility] Work Phone: Evaluation note* Diagnosis Atherosclerosis of cahto coronary artery of cahto heart without angina pectoris- Primary Pacemaker Cardiac pacemaker in situ Permanent atrial fibrillation (Multi) Atrial fibrillation Essential hypertension, benign Complete heart block (Multi) Atrioventricular block, complete BMI 50.0-59.9, adult (Multi) SOB (shortness of breath) on exertion Shortness of breath Mixed hyperlipidemia documented in this encounter [facility] Work Phone: Evaluation note* Diagnosis Onset Date Resolution Status Atrial fibrillation acute Chronic kidney disease acute High cholesterol acute Hypertension acute Major depression acute QUETA (obstructive sleep apnea) acute Type 2 diabetes mellitus with hyperglycemia acute Acute electrocardiogram changes acute Nausea & vomiting acute Viral illness acute [facility] Work Phone: Evaluation note* Diagnosis Onset Date Resolution Status Atrial fibrillation acute Chronic kidney disease acute High cholesterol acute Hypertension acute Major depression acute QUETA (obstructive sleep apnea) acute Type 2 diabetes mellitus with hyperglycemia acute Acute electrocardiogram changes acute Nausea & vomiting acute Pre-syncope acute Viral illness acute [facility] Work Phone: Evaluation note* Diagnosis Onset Date Resolution Status Pre-syncope acute Acute electrocardiogram changes resolved Nausea & vomiting resolved Viral illness resolved [facility] Work Phone: History general Narrative - Reported* Type Description Date Medical History Diabetes Medical History Hypertension Medical History High Cholesterol Surgical History lithrotripsy Surgical History heart stent 2017 Surgical History bilateral knee replacement Surgical History cartioversion 2018 Surgical History kidney stone blasted 2018 Hospitalization History kidney stones and septic 2017 Hospitalization History see above [employer] Other History general Narrative - Reported* Type Description Date Medical History Diabetes Medical History Hypertension Medical History High Cholesterol Medical History QUETA Surgical History lithrotripsy Surgical History heart stent 2017 Surgical History bilateral knee replacement Surgical History cartioversion 2018 Surgical History kidney stone blasted 2018 Hospitalization History kidney stones and septic 2017 Hospitalization History see above [employer] Other History of Present illness Narrative* Patient [...] the above we will proceed as noted. [facility] [employer] DO Work Phone: History of Present illness [...] diet and weight loss were discussed in detail.[facility] [employer] DO Work Phone: History of Present illness [...] all the above we recommend no change. [facility] [employer] DO Work Phone: Hospital Discharge instructions Additional [...] with nurse for incision check in the [facility] Office on 07/09/2022 at 9:30am. 2. Chest x-ray to be done the same day as your device check in [facility]. 3. Pacemaker/ICD clinic appointment at [facility] in 15 weeks- they will call you. 4. Office visit with Dr. Silva in the [place] [facility] in 15 weeks- we will call you with appointment. [][facility] Work Phone: Hospital Discharge instructions Additional Instructions Keep your laceration clean with soap and water daily. Apply antibiotic ointment once daily. Follow-up with PCP for suture removal in 7 days.[facility] Work Phone: Hospital Discharge instructions Additional Instructions SNF TO MANAGE: PT/OT to eval and treat Monitor VS per protocol Monitor Neuro. and Cardiac assessment--Pre syncope Monitor GI assessment--Nausea and vomiting Please draw a PT/INR on 06/25/24--Coumadin to be managed by SNF providers Continue to use patient's home sleep apnea machine Maintain high risk fall precautions [facility] Work Phone: Reason for referral (narrative)* Consultation (Routine) - Authorized Specialty Diagnoses / Procedures Referred By Contac t Referred To Contact Cardiology Diagnoses Pacemaker Permanent atrial fibrillation (CMS/HCC) Essential hypertension, benign Complete heart block (CMS/HCC) Procedures Follow Up In Cardiology Lalito Silva MD [address] [facility] [address], [address] [address] Lalito Silva MD [address] [place] [address], [address] [address] Referral ID Status Reason Start Date Expiration Date V isits Requested Visits Authorized [id number] Authorized 10/07/2023 10/06/2024 1 1 [facility] Work Phone: Reason for referral (narrative)* Consultation (Routine) - Authorized Specialty Diagnoses / Procedures Referred By Conthermann t Referred To Contact Cardiology Diagnoses Permanent atrial fibrillation (Multi) Procedures Follow Up In Cardiology Lalito Silva MD [address] [place] [address], [address] [address] Michael Mullen MD [address] [place] [address], [place] [id number] Referral ID Status Reason Start Date Expiration Date V isits Requested Visits Authorized [id number] Authorized 04/23/2024 04/23/[address] [facility] Work Phone: Summary Purpose Family History No Family History Records FoundUnknown Family Member Name Dates Details FH: CABG [...] mother Unknown Heart disease Unknown Advance Directives No Advanced Directives Records Found Advance Directive Response Recorded Date/ Time Advance Directives No July 8:25am Chief Complaint [place] [facility] [place] due in NovemberNIRMAL KAYLYNN is being seen for a 6 month follow-up of.NIRMAL KAYLYNN is being seen for a 3 month [...] vomiting Pre-syncope Viral illness Chief Complaint Fall [facility] Visit nusrsing home visit Amb Documentation long-term follow up/flu shot Reason for Visit Pre-syncope Acute electrocardiogram changes Nausea & vomiting Viral illness Additional Source Comments (unrecognized sect ion and content) No Status Records FoundNo Status Records FoundNo Status Records FoundNo Status Records FoundNo Status Records FoundNo Status Records FoundNo Status Records FoundNo Status Records Found INFORMATION SOURCE (unrecogn ized section and content) DATE CREATED AUTHOR 05/17/2018 [facility] DATE CREATED AUTHOR AUTHOR'S JL WHYTE 05/08/2019 [facility] DATE CREATED AUTHOR AUTHOR'S ORGANIZ ATION 06/16/2022 [employer] DATE CREATED AUTHOR AUTHOR'S ORGANIZ ATION 04/29/2023 [facility] DATE CREATED AUTHOR AUTHOR'S ORGANIZ ATION 05/19/2023 [facility] DATE CREATED AUTHOR AUTHOR'S ORGANIZ ATION 08/02/2024 [facility] DATE CREATED AUTHOR AUTHOR'S ORGANIZ ATION 08/17/2024 [facility] DATE CREATED AUTHOR AUTHOR'S ORGANIZ ATION 08/26/2024 [facility] Care Teams (unrecognized sec tion and content) Team Status: Active Member Role Status Dates Modesto Chavarria , DO Primary Care Provider Active Team Status: Inactive Member Role Status Dates Modesto Chavarria , DO Primary Care Provide r, Attending Provider [...] Domenico Betancourt , DO Emergency Provider Active Headlight 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 Relationship Specialty Start Date End Date Modesto Chavarria DO [address] [place] [address] [address] [facility] [place] [address] PCP - General 11/21/99 [employer]er Relationship Specialty Start Date End Date Modesto [...] DO Primary Care Provider Active Start: June 19, [...] Follow Up In Cardiology Lalito Silva MD [address] [place] [id number] Lalito Silva MD [address] [place] [address] 2, [address] [address] Referral ID Status Reason Start Date Expiration Date V isits Requested Visits Authorized [id number] Authorized 10/07/2023 10/06/2024 1 1 Goals (unrecognized [...] BE BASED ON THE PRIMARY CLINICAL RECORDS. [facility], [facility]. provides no warranty or guarantee of the accuracy or completeness of information in this document.
== END 2024-04-25 23:59 | disposition home or self-care (01) ==
LOC: MN 09-20 09:02
PROVIDERS: PCP Internal Medicine; Visit Provider Internal Medicine
DX: E11.8 Type 2 diabetes mellitus with unspecified complications (principal)
CPT/HCPCS: G0108

== ENCOUNTER 2024-05-21 00:18 | Outpatient (RCR) | payer MEDICARE, OTHER, SELFPAY | END 2024-06-20 09:53 | disposition home or self-care (01) | LOC: MM 00:18 | PROVIDERS: PCP Internal Medicine; Visit Provider Internal Medicine | DX: Z51.81 Encounter for therapeutic drug level monitoring (principal); Z79.01 Long term (current) use of anticoagulants | CPT/HCPCS: 85610; G0463 ==

== ENCOUNTER 2024-06-21 00:20 | Outpatient (RCR) | payer MEDICARE, OTHER, SELFPAY | END 2024-07-20 09:52 | disposition home or self-care (01) | LOC: MM 00:20 | PROVIDERS: PCP Internal Medicine; Visit Provider Internal Medicine | DX: Z51.81 Encounter for therapeutic drug level monitoring (principal); Z79.01 Long term (current) use of anticoagulants ==

== ENCOUNTER 2024-07-23 01:29 | Outpatient (RCR) | payer MEDICARE, OTHER, SELFPAY | END 2024-08-20 23:54 | disposition home or self-care (01) | LOC: MM 01:29 | PROVIDERS: PCP Internal Medicine; Visit Provider Internal Medicine | DX: Z51.81 Encounter for therapeutic drug level monitoring (principal); Z79.01 Long term (current) use of anticoagulants ==

== ENCOUNTER 2024-08-15 14:35 | Outpatient (REF) | payer MEDICARE, OTHER, SELFPAY ==
[2024-08-15 14:50] LABS: Bilirubin Urine NEGATIVE (NEGATIVE); Blood Urine NEGATIVE (NEGATIVE); Clarity Urine CLEAR (CLEAR); Color Urine YELLOW (YELLOW); Glucose Urine UA NEGATIVE (NEGATIVE); Ketones Urine NEGATIVE (NEGATIVE); Leukocyte Esterase Urine NEGATIVE (NEGATIVE); Nitrite Urine NEGATIVE (NEGATIVE); Protein Urine NEGATIVE (NEG/TRACE)
--- OUTSIDE RECORDS SUMMARY | 2024-08-15 14:55 | XMS_ITS | CCD ---
Author Organization [facility] Care Team Providers Care 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 Name Role Phone PHYSICIAN, DEFAULT Unavailable Unavailable PHYSICIAN, DEFAULT Unavailable Unavailable Modesto Chavarria Unavailable Unavailable Unavailable Unavailable Unavailable DO Modesto Chavarria Primary Care Provider MD Lalito Silva Admit Provider [phone] MD Lalito Silva Attending Provider DO Domenico Betancourt Emergency Provider Unavai Modesto Rocha Unavailable DR [...] Consulting Unavailable BALL, DR SALVADOR Attending Unavailable Ball, DO Salvador Primary Care Provider [phone] DO Ran Addison Emergency Provider MD Stalin Miranda Admit Provider MD Stalin Miranda Attending Provider [phone] Shira TOBIN, Dr. Lalito Savage Attending Unavailable Ariel, Dr. Modesto Galan Primary Care Julia Chavarria, Dr. Modesto Galan Primary Care Julia Cameron, Dr. Milo Taylor Attending Cassi bindu Chavarria, Dr. Modesto Galan Primary Care Julia Chavarria, Dr. Modesto Galan Primary Care Julia Chavarria, Dr. Modesto Galan Primary Care Julia Chavarria, Dr. Modesto Galan Primary Care Julia Silva II, Dr. Lalito Savage Referring Unavailable Ariel, Dr. Modesto Galan Primary Care Julia Silva II, Dr. Lalito Savage Attending Unavailable Ariel, Dr. Modesto Galan Primary Care Julia Silva II, Dr. Lalito Savage Referring Unavailable McGuinn II, Dr. Lalito Savage Attending Unavailable Lalouinn II, Dr. Lalito Savage Attending Unavailable McGuinn II, Dr. Lalito Savage Referring Unavailable Ball, Dr. Modesto Galan Primary Care Julia Chavarria, Dr. Modesto Galan Primary [facility] Julia Cameron, Dr. Milo Taylor Attending Cassi bindu Chavarria, Dr. Modesto Galan Primary [facility] Julia Chavarria, Dr. Modesto Galan Primary [facility] uJlia Chavarria DO, Modesto radha Primary Care Provider Modesto Chavarria DO Primary Care Provider LALITO SILVA Attending Unavailable MODESTO CHAVARRIA Primary Care Unavailable MCGUINNLALITO P Attending Unavailable SHIRA LALITO P Referring Unavailable MODESTO CHAVARRIA Primary Care Unavailable DO Modesto Chavarria Primary [facility] Provider [facility] Attending Provider MD Lalito Silva Other Provider [phone] DO Domenico Betancourt Emergency Provider MD Stalin Cabezas Admit Provider MD Stalin Miranda Attending Provider DO Domenico Betancourt Emergency Provider MD Stalin Cabezas Admit Provider MD Stalin Miranda Attending Provider Carlos Alberto GIBSON Attending Unavailable Lalito Silva Attending Unavailable Lalito Silva P Admitting Unavailable Lalito Silva P Referring Unavailable Lalito Silva P Admitting Unavailable McGuinLalito alfaro P Referring Unavailable Lalito Silva P Attending Unavailable Carlos Alberto GIBSON Attending Unavailable Modesto Chavarria Primary Care Unavailable Lalito Silva Consulting Unavail able Marva Soriano Admitting Unavailable OrMarva johnson Attending Unavailable Modesto Chavarria Primary Care Unavailable Meredith Frost Consulting Unavailable Stalin Miranda Admitting Unavailab le Stalin Miranda Attending Unavailab Constanza Contreras Consulting Unavailable Milo Cameron Consulting Unavailable Lalito Silva Consulting Unavail able Michael Mullen Consulting Unavailable Prashanth Marshall Consulting Unavailab Isabell Lopez Consulting Unavailable Jillian Hector Consulting Unavailable Ej Mandujano Consulting Unavailab Rachel De Leon Consulting Unavailable Gretel Palma Consulting Unavailable DO Modesto Chavarria Primary Care Provider Allergies Allergy Classification Reported Allergen(s) Allergy Type Date of Onset Reaction(s) Facility metFORMIN (1 source) metFORMIN Drug Allergy 03-26-20 24 Unknown Reaction [facility] Penicillins (antibiotic) (4 sources) Penicillins Drug Allergy 10-06-20 23 Hives, [facility] (17 sources) Penicillins; Translations: [Penicillins] Allergy to drug (finding) 10-06-20 23 Hives, Unknown Reaction [facility] (5 sources) Penicillin; Translations: [penicillin G] Drug Allergy 03-07-20 22 [facility] (20 sources) Penicillin G Benzathine; Translations: [penicillin G benzathine] Drug allergy 03-26-20 24 Unknown, Unknown Reaction [facility] (1 source) Grass pollen Drug allergy (disorder) [facility] (1 source) house dust allergenic extract Drug Allergy [facility] (1 source) Penicillins Drug allergy (disorder) 04-08-20 14 [facility] (12 sources) metFORMIN Drug Allergy 03-26-20 24 Unknown, Unknown Reaction [facility] (8 sources) Albuterol *ANTIASTHMATIC AND BRONCHODILATOR AGENTS Propensity to adverse reactions Unknown [facility] Other (8 sources) Substance with penicillin structure and antibacterial mechanism of action (substance) Drug allergy Unknown [employer] [facility] Other (1 source) Penicillins Drug Allergy 10-06-20 23 Hives, [facility] (1 source) Dust; Translations: [Dust] Propensity to adverse reactions (disorder) [facility] (1 source) Penicillin; Translations: [penicillin] Drug Allergy [facility] (1 source) Pollen; Translations: [Pollen] Propensity to adverse reactions (disorder) [facility] (1 source) metFORMIN Drug Allergy 03-26-20 [facility] (1 source) Penicillins Drug allergy (disorder) 06-18-20 [facility] Medications Current Medications Medication Drug Class(es) Dates Sig (Normalized) Sig (Original) 0.25 MG, 0.5 MG Dose 3 ML semaglutide 0.68 MG/ML Pen Injector [Ozempic] (3 sources) Start: 10-17-2023 Ozempic (0.25 or 0.5 MG/DOSE) 2 MG/3ML 0.25MG Subcutaneous weekly for 28 days Sep, Active Allopurinol (20 sources) Xanthine Oxidase Inhibitor Start: 02-28-2024 take 1 tablet by mouth once daily Allopurinol Active 0 .ROUTE .COMPLEX February 28, 2024 8:41am Take 1 tablet by mouth daily 90 Start: 04-26-2018 End: 02-28-2024 take 300 mg by mouth once daily Allopurinol Discontinued 300 MG PO Daily April 26, 2018 12:00am February 28, 2024 8:43am Blood Glucose Test - (1 source) Start: 12-26-2023 Blood Glucose Test - as directed In Vitro daily for 90 days Dec, Active cholecalciferol 0.125 mg oral capsule (16 sources) Vitamin D Start: 03-23-2024 take 125 ug by mouth once daily Cholecalciferol (Vitamin D3) Active 125 MCG PO Daily March 23, 2024 12:00am Start: 05-23-2023 take 1 capsule by mouth every week Vitamin D3 1.25 MG (46469 UT) 1 capsule Orally weekly for 30 days May, Active citalopram 20 mg oral tablet (20 sources) Serotonin Reuptake Inhibitor Start: 03-30-2024 take 1 tablet by mouth once daily at bedtime Citalopram Active 0 .ROUTE .COMPLEX 90 March 30, 2024 1:00pm TAKE 1 TABLET BY MOUTH AT BEDTIME EVERY night Start: 11-26-2018 End: 03-30-2024 take 20 mg by mouth once daily at bedtime Citalopram Discontinued 20 MG PO Daily November 26, 2018 1:00am March 30, 2024 1:01pm At HS Start: 04-26-2018 End: 05-26-2018 take 20 mg by mouth once daily Citalopram Discontinued 20 MG PO Daily April 26, 2018 12:00am May 26, 2018 8:31am hydroCHLOROthiazide 12.5 mg / lisinopril 20 mg oral tablet (20 sources) Thiazide Diuretic, Angiotensin Converting Enzyme Inhibitor Start: 06-22-2024 take 1 tablet by mouth once daily Lisinopril-Hydrochlorothiazide Active 1 TAB PO Daily 180 June 22, 2024 12:46pm 1 tab orally; Start: 05-29-2024 End: 06-22-2024 take 2 tablets by mouth once daily Lisinopril-Hydrochlorothiazide Discontin ued 0 .ROUTE .COMPLEX 180 May 29, 2024 9:10am June 22, 2024 12:47pm Take 2 tablets by mouth daily 90 Start: 10-07-2023 End: 10-06-2024 take 1 tablet by mouth twice daily lisinopriL-hydrochlorothiazide 10-12.5 m g tablet Indications: Essential hypertension, benign Take 1 [...] 12:00am August 24, 2022 7:29am Start: 04-26-2018 End: 05-29-2024 take 2 tablets by mouth once daily Lisinopril-Hydrochlorothiazide Discontin ued 2 TAB PO Daily April 26, 2018 12:00am May 29, 2024 9:10am 3 ml insulin glargine 100 unt/ml pen injector (5 sources) Insulin Analog Start: 03-26-2024 inject 10 [IU] by subcutaneous injection once daily in the evening Insulin Glargine (Lantus Solostar U-100 Insulin) 100 unit/mL (3 mL) insulin pen Active 10 UNIT SUBCUT Every evening 3 March 26, 2024 12:00am Increase Lantus 2u every 3 days until FBS insulin glargine,hum.rec .anlog (INSULIN GLARGINE SUBQ) (1 source) inject 20 [IU] by subcutaneous injection once daily at bedtime insulin glargine,hum.rec.a nlog (INSULIN GLARGINE SUBQ) Inject 20 Units under the skin once daily at bedtime. Active ozempic (0.25 or 0.5 mg/dose) 2 mg/3ml solution pen-injector (1 source) Start: 10-17-2023 Ozempic (0.25 or 0.5 MG/DOSE) 2 MG/3ML 0.25MG Subcutaneous weekly Sep, Active polyethylene glycol 3350 50466 mg powder for oral solution (2 sources) Osmotic Laxative Start: 06-22-2024 Polyethylene Glycol 3350 (Healthylax) 17 gram Powder In Packet Active 17 GM PO Daily June 22, 2024 12:00am pravastatin sodium 40 mg oral tablet (20 sources) HMG-CoA Reductase Inhibitor Start: 04-26-2018 End: 10-06-2024 take 40 mg by mouth once daily at bedtime Pravastatin Active 40 MG PO Daily April 26, 2018 12:00am Takes HS psyllium 3400 mg powder for oral suspension (2 sources) Start: 06-22-2024 Psyllium Husk (Aspartame) (Metamucil Fiber Singles) 3.4 gram Powder In Packet Active 1 PACKET PO Daily June 22, 2024 12:00am 0.25 mg, 0.5 mg dose 1.5 ml semaglutide 1.34 mg/ml pen injector (1 source) semaglutide (Ozempic) 0.25 mg or 0.5 mg(2 mg/1.5 mL) pen injector Inject 0.25 mg under the skin 1 (one) time per week. Active semaglutide (2 sources) Start: 06-20-2024 semaglutide Active 1.2 MG SUBCUT WE@0900 June 20, 2024 12:00am please verify dose with compound dose from pharmacy. patient due for dose today 06/20/24 sildenafil 100 mg oral tablet (6 sources) Phosphodiesterase 5 Inhibitor take 1 tablet by mouth every twenty-four hours Sildenafil Citrate 100 MG 1 tablet as needed Orally Once a day Active vitamin b12 1 mg oral tablet (2 sources) Vitamin B12 Start: 06-22-2024 take 1000 ug by mouth once daily in the morning Cyanocobalamin (Vitamin B-12) Active 1000 MCG PO Every morning 0 June 22, 2024 12:00am warfarin sodium 4 mg oral tablet (20 sources) Vitamin K Antagonist Start: 05-14-2023 End: 03-23-2024 take 4 mg by mouth once daily Warfarin Active 4 MG PO Daily March 23, 2024 12:00am Start: 05-14-2023 End: 03-23-2024 Warfarin Discontinued 6 MG P O WESA@1700 May 14, 2023 12:00am March 23, 2024 4:35pm WED AND SAT Start: 04-26-2018 End: 05-14-2023 Warfarin Discontinued 4 MG P O As Directed April 26, 2018 12:00am May 14, 2023 11:11pm Warfarin Sodium 4 MG Oral Tablet as directed by [place] [facility] Quantity: 0 Refills: 0 Ordered: 07-Sep-2021 DO Active Completed/Discontinued Medications Medication Drug Class(es) Dates Sig (Normalized) Sig (Original) acetaminophen 500 mg oral tablet (14 sources) Start: 05-14-2023 End: 03-23-2024 take 1000 mg by mouth every six hours Acetaminophen Discontinued 1000 MG PO Q6H May 14, 2023 12:00am March 23, 2024 4:33pm Start: 05-26-2018 End: 08-11-2021 take 1 capsule by mouth every four to six hours Acetaminophen (Tylenol) 325 mg Capsule Discontinued 325 MG PO EVERY 4-6 HOURS May 26, 2018 12:00am August 11, 2021 1:14pm acetaminophen 325 mg / HYDROcodone bitartrate 5 mg oral tablet (16 sources) Opioid Agonist Start: 03-07-2022 End: 08-24-2022 take 1 tablet by mouth every four to six hours Hydrocodone-Acetaminophen Discontinued 1 - 2 TAB PO EVERY 4-6 HOURS 14 March 07, 2022 August 24, 2022 7:31am Start: 11-26-2018 End: 08-11-2021 take 1 tablet by mouth every four to six hours Hydrocodone-Acetaminophen ([place]) 5-325 mg tablet Discontinued 1 TAB PO EVERY 4-6 HOURS 12 November 26, 2018 August 11, 2021 1:14pm acetaminophen 325 mg / oxyCODONE hydrochloride 5 mg oral tablet (5 sources) Opioid Agonist Start: 05-16-2023 End: 03-23-2024 take 1 tablet by mouth once daily Oxycodone-Acetaminophen (Endocet) 5-325 mg tablet Discontinued 1 TAB PO Daily 14 6 May 16, 2023 March 23, 2024 4:34pm amiodarone hydrochloride 200 mg oral tablet (20 [...] one tab orally once a day Active amLODIPine 5 mg oral tablet (20 sources) Dihydropyridine Calcium Channel Kisha Start: 03-23-2024 End: 06-22-2024 take 5 mg by mouth once daily Amlodipine Discontinued 5 MG PO Daily March 23, 2024 12:00am June 22, 2024 12:47pm take 1 tablet by elana th every twenty-four hours amLODIPine Besylate 5 MG 1 tablet Orally Once a day Active Aspir-81 81 MG (6 sources) take 1 tablet by mouth once daily Aspir-81 81 MG 1 tablet Orally Once a day Not-Taking aspirin 81 mg delayed release oral tablet (20 sources) Platelet Aggregation Inhibitor, Nonsteroidal Anti-inflammatory Drug Start: End: take 81 mg by mouth once daily Aspirin Discontinued 81 MG PO Daily November 26, 2018 1:00am August 24, 2022 7:31am Start: 04-26-2018 End: 05-26-2018 take 81 mg by mouth once daily Aspirin Discontinued 81 MG PO Daily April 26, 2018 12:00am May 26, 2018 8:31am clindamycin 300 mg oral capsule (8 sources) Lincosamide Antibacterial Start: 07-02-2022 End: 08-24-2022 take 600 mg by mouth three times daily Clindamycin Hcl Discontinued 600 MG PO Three times daily 12 July 02, 2022 12:00am August 24, 2022 7:31am clopidogrel 75 mg oral tablet (8 sources) [id number] Platelet Inhibitor Start: 04-26-2018 End: 05-26-2018 take 75 mg by mouth once daily Clopidogrel Discontinued 75 MG PO Daily April 26, 2018 12:00am May 26, 2018 8:31am docusate sodium 100 mg oral capsule (6 sources) Start: 05-14-2023 End: 03-23-2024 take 1 capsule by mouth once daily Docusate Sodium (Colace) 100 mg Capsule Discontinued 100 MG PO Daily May 14, 2023 12:00am March 23, 2024 4:34pm doxycycline hyclate 100 mg oral capsule (5 sources) Tetracycline-class Drug Start: 01-16-2024 End: 03-23-2024 take 100 mg by mouth twice daily Doxycycline Hyclate Discontinued 100 MG PO Twice daily 14 January 16, 2024 1:00am March 23, 2024 4:34pm ergocalciferol 1.25 mg oral capsule (5 sources) Provitamin D2 Compound Start: 05-16-2023 End: 03-23-2024 take 1 capsule by mouth every week, then take 1 capsule by mouth every month Ergocalciferol (Vitamin D2) Discontinued [id number] UNIT PO As Directed May 16, 2023 12:00am March 23, 2024 4:34pm take one cap every week for 8 weeks, then one cap every months after that. fluticasone propionate 0.05 mg/actuat metered dose nasal spray (16 sources) Corticosteroid Start: 11-26-2018 End: 08-11-2021 Fluticasone Propionate Discontinued 1 SPRAY INTRANASAL Daily November 26, 2018 1:00am August 11, 2021 1:14pm Start: 04-26-2018 End: 05-26-2018 Fluticasone Propionate Disco ntinued 1 SPRAY INTRANASAL Daily April 26, 2018 12:00am May 26, 2018 8:31am furosemide 40 mg oral tablet (8 sources) Loop Diuretic Start: 05-26-2018 End: 11-26-2018 take 40 mg by mouth once daily Furosemide Discontinued 40 MG PO Daily May 26, 2018 12:00am November 26, 2018 3:49pm glimepiride 1 mg oral tablet (8 sources) Sulfonylurea Start: 04-26-2018 End: 05-26-2018 take 0.5 mg by mouth once daily in the morning Glimepiride Discontinued 0.5 MG PO Every morning April 26, 2018 12:00am May 26, 2018 8:31am ketoconazole 20 mg/ml topical cream (20 sources) Azole Antifungal Start: 06-18-2024 End: 06-27-2024 Ketoconazole Discontinued 1 APPLIC TOPICAL Twice daily June 18, 2024 12:00am June 27, 2024 5:04pm Start: 08-24-2022 End: 05-14-2023 Ketoconazole Discontinued 1 [...] 0 Refills: 0 Ordered: 07-Sep-2021 DO Active lidocaine 0.05 mg/mg medicated patch (6 sources) Antiarrhythmic, Amide Local Anesthetic Start: 05-14-2023 End: 03-23-2024 apply 1 dose topically once daily Lidocaine Discontinued 1 PATCH TOPICAL Daily May 14, 2023 12:00am March 23, 2024 4:34pm leave on most painful area for up to 12 hrs metFORMIN hydrochloride 500 mg oral tablet (20 sources) Biguanide Start: 02-22-2023 End: 03-26-2024 take 500 mg by mouth once daily at bedtime Metformin Discontinued 500 MG PO Daily May 14, 2023 12:00am March 26, 2024 3:05pm Takes at HS Start: 05-26-2018 End: 11-26-2018 take 1 tablet by mouth once daily Metformin Discontinued 1 TAB PO Daily May 26, 2018 12:00am November 26, 2018 3:49pm Multi Vitamin Oral Tablet (8 sources) take 1 tablet by mouth once daily Multi Vitamin Oral Tablet TAKE 1 TABLET DAILY. Quantity: 0 Refills: 0 Ordered: 07-Sep-2021 DO Active nitroglycerin 0.4 mg sublingual tablet (20 sources) Nitrate Vasodilator Start: 06-18-20 End: 06-22-20 Nitroglycerin Discontinued 0.4 MG SUBLINGUAL every 5 to 15 minutes June 18, 2024 12:00am June 22, 2024 12:47pm do not exceed 3 doses per episode Start: 11-26-2018 End: 05-14-2023 Nitroglycerin Discontinued 0 .4 MG SUBLINGUAL every 5 to 15 minutes November 26, 2018 1:00am May 14, 2023 11:18pm Start: 04-26-2018 End: 05-26-2018 Nitroglycerin (Nitrostat) 0. 4 mg Tablet, Sublingual Discontinued 0.4 MG SUBLINGUAL every 5 to 15 minutes April 26, 2018 12:00am May 26, 2018 8:31am Nitroglycerin 0. 4 MG as directed Sublingual Active Potassium (8 sources) Start: 05-26-2018 End: 08-11-2021 Potassium Discontinued TABLE T May 26, 2018 12:00am August 11, 2021 1:14pm potassium bicarbonate 20 meq effervescent oral tablet (20 sources) Start: 06-18-2024 End: 06-22-2024 Potassium Bicarb-Citric Acid (Effer-K) 20 mEq tablet, effervescent Discontinued 20 MEQ PO Daily June 18, 2024 12:00am June 22, 2024 12:47pm Start: 07-02-2022 End: 08-24-2022 Potassium Bicarbonate Discon tinued 25 EACH PO 2 times daily July 02, 2022 12:00am August 24, 2022 7:31am Start: 07-02-2022 Potassium Bica rbonate Active 25 EACH PO 2 times daily July 02, 2022 12:00am Start: 08-11-2021 End: 03-23-2024 Potassium Bicarb-Citric Acid (Effer-K) 20 mEq Tablet, Effervescent Discontinued 25 MEQ PO Twice daily August 11, 2021 12:00am March 23, 2024 4:34pm Start: 08-11-2021 End: 05-14-2023 Potassium Bicarb-Citric Acid (Effer-K) 20 mEq tablet, effervescent Discontinued 20 MEQ PO Twice daily August 24, 2022 12:00am May 14, 2023 11:16pm take 1 tablet by elana th twice daily potassium bicarbonate (K-Lyte) 25 mEq effervescent tablet Take 1 tablet (25 mEq) by mouth 2 times a day. Active Effer-K 25 MEQ O ral Tablet Effervescent TAKE DIRECTED. Quantity: 0 Refills: 0 Ordered: 07-Sep-2021 DO Active potassium citrate 10 meq extended release oral tablet (14 sources) Start: 04-26-2018 End: 08-11-2021 take 2 tablets by mouth once daily Potassium Citrate Discontinued 2 TAB PO Daily April 26, 2018 12:00am August 11, 2021 1:14pm Potassium Citrat e - 6000 Not-Taking Semaglutide (5 sources) Start: 03-23-2024 End: 03-26-2024 Semaglutide (Ozempic) 0.25 mg or 0.5 mg (2 mg/3 mL) pen injector Discontinued 0.25 MG SUBCUT every week March 23, 2024 12:00am March 26, 2024 3:05pm sotalol hydrochloride 80 mg oral tablet (8 sources) Antiarrhythmic Start: 05-26-2018 End: 11-26-2018 Sotalol Discontinued 80 MG TABLET As Directed May 26, 2018 12:00am November 26, 2018 3:50pm tamsulosin hydrochloride 0.4 mg oral capsule (20 sources) alpha-Adrenergic Kisha Start: 11-26-2018 End: 08-24-2022 take 0.4 mg by mouth once daily Tamsulosin Discontinued 0.4 MG PO Daily November 26, 2018 1:00am August 24, 2022 7:31am Start: 04-26-2018 End: 05-26-2018 take 0.4 mg by mouth twice daily Tamsulosin Discontinued 0.4 MG PO Twice daily April 26, 2018 12:00am May 26, 2018 8:31am torsemide 10 mg oral tablet (16 sources) Loop Diuretic Start: 03-16-2022 End: 10-06-2024 take 10 mg by mouth once daily Torsemide Discontinued 10 MG PO Daily May 14, 2023 12:00am March 23, 2024 4:34pm traMADol hydrochloride 50 mg oral tablet (6 sources) Opioid Agonist Start: 05-14-2023 End: 03-23-2024 take 50 mg by mouth every six hours Tramadol Discontinued 50 MG PO Q6H May 14, 2023 12:00am March 23, 2024 4:34pm triamcinolone acetonide 40 mg/ml injectable suspension (20 [...] Problem Date Documented Date Episodic/Chronic Acute bronchitis (16 sources) Acute bronchitis; Translations: [Acute bronchitis due to other specified organisms] Onset: 4 Episodic Anxiety disorders (20 sources) Generalized anxiety disorder; Translations: [Generalized anxiety disorder] Chronic Bacterial infection; unspecified site (8 sources) Bacterial infectious disease; Translations: [Other specified bacterial agents as the cause of diseases classified elsewhere] Episodic Calculus of urinary tract (20 sources) Calculus of kidney; Translations: [Kidney stone] Onset: 2 Episodic Cardiac dysrhythmias (20 sources) Atrial flutter; Translations: [Atrial flutter] Onset: 7 10-07-2023 Chronic Chronic kidney disease (20 sources) Chronic kidney disease stage 3A ; Translations: [Stage 3a chronic kidney disease] Onset: 4 03-24-2024 Chronic Conduction disorders (20 sources) Complete atrioventricular block; Translations: [Atrioventricular block, complete] Onset: 2 Chronic Congestive heart failure; nonhypertensive (2 sources) Acute on chronic diastolic heart failure; Translations: [Acute on chronic diastolic (congestive) heart failure] Chronic Coronary atherosclerosis and other heart disease (20 sources) Coronary atherosclerosis; Translations: [Coronary atherosclerosis of sun'aq coronary artery] Onset: 3 Chronic Diabetes mellitus with complications (20 sources) Type 2 diabetes mellitus; Translations: [Type 2 diabetes mellitus with hyperglycemia] Onset: 7 Chronic Diabetes mellitus without complication (18 sources) Diabetes mellitus; Translations: [Diabetes mellitus without mention of complication, type II or unspecified type, not stated as uncontrolled] Onset: 2 Chronic Disorders of lipid metabolism (20 sources) Hyperlipidemia; Translations: [Other and unspecified hyperlipidemia] Onset: 6 Chronic E Codes: Fall (16 sources) Fall; Translations: [Unspecified fall, initial encounter] 03-07-2022 Episodic Essential hypertension (20 sources) Benign essential hypertension; Translations: [Benign essential hypertension] Onset: 3 Chronic Hyperplasia of prostate (8 sources) Lower urinary tract symptoms due to benign prostatic hypertrophy; Translations: [Benign prostatic hyperplasia with lower urinary tract symptoms] Chronic Hypertension with complications and secondary hypertension (20 sources) Chronic kidney disease due to hypertension; Translations: [Hypertensive chronic kidney disease with stage 1 through stage 4 chronic kidney disease, or unspecified chronic kidney disease] Onset: 2 Chronic Immunizations and screening for infectious disease (8 sources) Vaccination given; Translations: [Encounter for immunization] Episodic Intestinal infection (3 sources) Viral gastroenteritis; Translations: [Viral intestinal infection, unspecified] Onset: 4 06-22-2024 Episodic Intracranial injury (15 sources) Concussion injury of body structure; Translations: [Concussion] Onset: 9 08-24-2022 Episodic Malaise and fatigue (1 source) Weakness; Translations: [Weakness] Onset: 4 Episodic Mood disorders (18 sources) 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; Translations: [Major depressive disorder, single episode, in full remission] Onset: 4 03-24-2024 Chronic Nausea and vomiting (7 sources) Nausea and vomiting; Translations: [Nausea with vomiting, unspecified] Onset: 4 06-18-2024 Episodic Nutritional deficiencies (17 sources) Vitamin D deficiency; Translations: [Vitamin D deficiency, unspecified] Chronic Open wounds of head; neck; and trunk (20 sources) Laceration of right eyebrow; Translations: [Laceration without foreign body of right eyelid and periocular area, initial encounter] Onset: 3 03-07-2022 Episodic Osteoarthritis (20 sources) Osteoarthritis of knee; Translations: [Unilateral primary osteoarthritis, left knee] Chronic Other aftercare (12 sources) Drug therapy finding; Translations: [Long-term (current) use of other medications] Episodic Other aftercare (5 sources) Encounter for therapeutic drug level monitoring; Translations: [ENC THERAPEUTC DRUG LEVL MONITORING] Onset: 3 Episodic Other aftercare (2 sources) linux administrator (current) use of anticoagulants; Translations: [CUSTODIAL CURRNT USE ANTICOAGULANTS] Onset: 3 Episodic Other aftercare (7 sources) Long-term current use of anticoagulant; Translations: [linux administrator (current) use of anticoagulants] Episodic Other aftercare (8 sources) Long-term current use of drug therapy; Translations: [Other jail (current) drug therapy] Episodic Other circulatory disease (2 sources) Iatrogenic hypotension; Translations: [Other hypotension] 06-22-2024 Episodic Other circulatory disease (2 sources) Orthostatic hypotension; Translations: [Orthostatic hypotension] 06-22-2024 Episodic Other circulatory disease (1 source) Orthostatic hypotension; Translations: [Orthostatic hypotension] Onset: 4 Episodic Other circulatory disease (1 source) Other hypotension; Translations: [Other hypotension] Onset: 4 Episodic Other connective tissue disease (18 sources) History of total knee arthroplasty; Translations: [Presence of artificial knee joint, bilateral] Chronic Other connective tissue disease (6 sources) Disorder of musculoskeletal system; Translations: [Other [...] diseases of veins and lymphatics (4 sources) Venous insufficiency (chronic) (peripheral) Episodic Other fractures (4 sources) Multiple fractures of ribs, left side, subsequent encounter for fracture with routine healing; Translations: [Closed fracture of multiple ribs of left side with routine healing, subsequent encounter] Episodic Other fractures (7 sources) Closed fracture of multiple left ribs; Translations: [Multiple fractures of ribs, left side, subsequent encounter for fracture with routine healing] Episodic Other fractures (5 sources) Fracture of right rib; Translations: [Fracture of one rib, right side, initial encounter for closed fracture] 11-02-2023 Episodic Other injuries and conditions due to external causes (8 sources) Closed injury of head; Translations: [Unspecified injury of head, initial encounter] 01-11-2022 Episodic Other injuries and conditions due to external causes (8 sources) Injury of head; Translations: [Unspecified injury of head, initial encounter] Onset: 3 05-14-2023 Episodic Other injuries and conditions due to external causes (1 source) Unspecified injury of head, initial encounter; Translations: [Head injury, unspecified] 05-14-2023 Episodic Other injuries and conditions due to external causes (7 sources) History of fall; Translations: [History of falling] Episodic Other injuries and conditions due to external causes (1 source) History of falling; Translations: [History of falling] Episodic Other lower respiratory disease (15 sources) Dyspnea on exertion; Translations: [Shortness of breath] Onset: 3 10-06-2023 Episodic Other lower respiratory disease (8 sources) Dyspnea; Translations: [Other forms of dyspnea] Episodic Other lower respiratory disease (2 sources) Shortness of breath; Translations: [Shortness of breath] Onset: 3 Episodic Other male genital disorders (3 sources) Impotence of organic origin; Translations: [Male erectile dysfunction, unspecified] Chronic Other male genital disorders (5 sources) Male erectile dysfunction, unspecified; Translations: [Erectile dysfunction (disorder)] Chronic Other nervous system disorders (16 sources) Chronic pain; Translations: [Other chronic pain] Chronic Other nervous system disorders (2 sources) Other chronic pain; Translations: [Other chronic pain] Chronic Other nervous system disorders (6 sources) Abnormal gait; Translations: [Unsteadiness on feet] Episodic Other nervous system disorders (2 sources) Unsteadiness on feet; Translations: [Unsteadiness on feet] Episodic Other non-traumatic joint disorders (17 sources) Arthralgia of the pelvic region and thigh; Translations: [Pain in left hip] Episodic Other non-traumatic joint disorders (1 source) Pain in left hip; Translations: [Hip pain, left] Episodic Other nutritional; endocrine; and metabolic disorders (20 sources) Body mass index 40+ - severely obese; Translations: [Body Mass Index 50.0-59.9, adult] Onset: 6 04-23-2024 Chronic Other nutritional; endocrine; and metabolic disorders (13 sources) Morbid obesity; Translations: [Morbid obesity] Chronic Other nutritional; endocrine; and metabolic disorders (3 sources) Morbid (severe) obesity due to excess calories; Translations: [Morbid (severe) obesity due to excess calories] Chronic Other nutritional; endocrine; and metabolic disorders (3 sources) Body mass index (BMI) 50.0-59.9, adult; Translations: [Body mass index (BMI) 50.0-59.9, adult (Multi)] Onset: 4 Chronic Other nutritional; endocrine; and metabolic disorders (8 sources) Hyperuricemia 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 inflammatory arthritis and tophaceous disease; Translations: [Hyperuricemia 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 inflammatory arthritis and tophaceous disease] Episodic Other screening for suspected conditions (not mental disorders or infectious disease) (20 sources) Electrocardiogram abnormal; Translations: [Abnormal electrocardiogram [ECG] [EKG]] Onset: 6 Episodic Other skin disorders (8 sources) Vesicular eczema of hands and/or feet; Translations: [Dyshidrosis [pompholyx]] Episodic Other upper respiratory disease (16 sources) Allergic rhinitis due to pollen; Translations: [Allergic rhinitis due to pollen] Chronic Other upper respiratory disease (7 sources) Seasonal allergic rhinitis; Translations: [Other seasonal allergic rhinitis] Onset: 6 Chronic Other upper respiratory disease (2 sources) Allergic rhinitis due to pollen Chronic Other upper respiratory disease (1 source) Other seasonal allergic rhinitis; Translations: [Other seasonal allergic rhinitis] Onset: 6 Chronic Peripheral and visceral atherosclerosis (8 sources) 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; Translations: [Unspecified atherosclerosis of sun'aq arteries of extremities, bilateral legs] Chronic Residual codes; unclassified (20 sources) Obstructive sleep apnea syndrome; Translations: [Obstructive sleep apnea (adult) (pediatric)] 03-24-2024 Chronic Residual codes; unclassified (18 sources) Obstructive sleep apnea (adult) (pediatric); Translations: [Obstructive sleep apnea (adult)(pediatric)] Onset: 2 Chronic Residual codes; unclassified (1 source) Swelling - edema - symptom; Translations: [Edema] Episodic Residual codes; unclassified (8 sources) Other specified personal risk factors, not elsewhere classified; Translations: [Personal risk factor] Episodic Screening and history of mental health and substance abuse codes (13 sources) Ex-smoker; Translations: [Personal history of tobacco use] Episodic Comment on above: QUIT 1996; Spondylosis; intervertebral disc disorders; other back problems (18 sources) Lumbosacral spondylosis without myelopathy; Translations: [Other spondylosis with radiculopathy, lumbar region] Chronic Superficial injury; contusion (20 sources) Contusion of rib; Translations: [Contusion of right front wall of thorax, initial encounter] Onset: 9 Resolved: 0 03-07-2022 Episodic Syncope (15 sources) Syncope; Translations: [Syncope and collapse] Onset: 3 05-14-2023 Episodic Unclassified (12 sources) Permanent atrial fibrillation; Translations: [Permanent atrial fibrillation (Multi)] Onset: 3 Unclassified (5 sources) Chronic atrial fibrillation, unspecified; Translations: [CHRONIC ATRIAL FIBRILLATION UNSPEC] Onset: 3 Viral infection (6 sources) Viral disease; Translations: [Viral infection, unspecified] 06-18-2024 Episodic Viral infection (8 sources) Disease caused by 2019-nCoV; Translations: [COVID-19] Past or Other Problems Problem Classification Problem Date Documented Date Episodic/Chronic Allergic reactions (8 sources) Allergic contact dermatitis due to plants, except food; Translations: [Allergic contact dermatitis due to plants, except food] Onset: 09-20-2018 Episodic Chronic kidney disease (12 sources) Chronic kidney disease; Translations: [CHRONIC KIDNEY DISEASE STAGE 3A] Onset: 05-15-2014 Genitourinary symptoms and ill-defined conditions (16 sources) Dysuria; Translations: [Dysuria] Onset: 05-30-2017 Episodic Inflammatory conditions of male genital organs (8 sources) Acute prostatitis; Translations: [Acute prostatitis] Onset: 06-27-2017 Episodic Joint disorders and dislocations; trauma-related (8 sources) Dislocation of proximal interphalangeal joint of left little finger, subsequent encounter; Translations: [Dislocation of proximal interphalangeal joint of left little finger, subsequent encounter] Onset: 05-04-2018 Episodic Nonspecific chest pain (8 sources) Chest pain; Translations: [Chest pain, unspecified] Onset: 05-06-2017 Episodic Other connective tissue disease (8 sources) Pain in limb; Translations: [Pain in left finger(s)] Resolved: 06-16-2020 Episodic Other diseases of veins and lymphatics (4 sources) Chronic venous hypertension (idiopathic) with ulcer of unspecified lower extremity; Translations: [Chronic venous hypertension (idiopathic) with ulcer of unspecified lower extremity] Resolved: 02-28-2022 Chronic Other diseases of veins and lymphatics (4 sources) Venous ulcer of lower extremity due to chronic peripheral venous hypertension; Translations: [Chronic venous hypertension (idiopathic) with ulcer of unspecified lower extremity] Resolved: 02-28-2022 Chronic Other infections; including parasitic (14 sources) History of sepsis; Translations: [Personal history of other infectious and parasitic diseases] Onset: 10-06-2023 10-06-2023 Episodic Other upper respiratory infections (8 sources) Acute sinusitis; Translations: [Acute sinusitis, unspecified] Onset: 10-20-2015 Episodic Residual codes; unclassified (6 sources) Edema; Translations: [Edema] Onset: 10-06-2023 10-06-2023 Episodic Septicemia (except in labor) (8 sources) Other streptococcal sepsis; Translations: [Other streptococcal sepsis] Onset: 05-30-2017 Episodic Skin and subcutaneous tissue infections (16 sources) Cellulitis of left lower limb; Translations: [Cellulitis of left lower limb] Onset: 07-02-2019 Resolved: 02-23-2021 Episodic Spondylosis; intervertebral disc disorders; other back problems (2 sources) Neck pain; Translations: [Cervicalgia] Onset: 10-06-2023 10-06-2023 Episodic Unclassified (2 sources) Onset: 10-07-2023 Resolved: 04-23-2024 10-07-2023 Results Test Name Value Interpretation Reference Range Facility Automated basophil %Ordered By: Stalin Miranda on 06-22-2024 Basophils/100 WBC (Bld) 0.7 % . [facility] Comment on above: Performed By: #### C , BMP #### [address] Automated basophil countOrde red By: Stalin Erasmoor on 06-22-2024 Basophils (Bld) [#/Vol] 0.1 10*3/uL 0.0-0.2 [facility] Comment on above: Result Comment: PERF ORMED BY: [place] [address] PATHOLOGIST CREDIT ADJUSTER CORAL GOLD M.D. Performed By: #### C BC, BMP #### [address] Automated blood monocyte cou ntOrdered By: Stalin Gavikpor on 06-22-2024 Monocytes (Bld) [#/Vol] 0.7 10*3/uL 0.0-0.8 [facility] Comment on above: Performed By: #### C BC, BMP #### [address] Automated eosinophil %Ordere d By: Stalin Erasmoor on 06-22-2024 Eosinophils/100 WBC (Bld) 2.0 % . [facility] Comment on above: Performed By: #### C BC, BMP #### [address] Automated eosinophil countOr dered By: Stalin Miranda on 06-22-2024 Eosinophils (Bld) [#/Vol] 0.2 10*3/uL 0.0-0.45 [facility] Comment on above: Performed By: #### C BC, BMP #### [address] Automated monocyte %Ordered By: Stalin Domillikpor on 06-22-2024 Monocytes/100 WBC (Bld) 6.4 % . [facility] Comment on above: Performed By: #### C BC, BMP #### [address] Automated neutrophil %Ordere d By: Stalin Doamekpor on 06-22-2024 Neutrophils/100 WBC (Bld) 73.9 % . [facility] Comment on above: Performed By: #### C BC, BMP #### [address] Basic Metabolic Panelon Creatinine Clr Calc Pharmacy 89.71 Normal [facility] Comment on above: Result Comment: PERF ORMED BY: [place] [address] PATHOLOGIST CREDIT ADJUSTER CORAL GOLD M.D. Performed By: #### C BC, BMP #### [address] GFR/1.73 sq M.predicted MDRD (S/P/Bld) [Vol rate/Area] mL/min/{1.73_m2} Normal [facility] Comment on above: Performed By: #### C BC, BMP #### [address] Calcium [Mass/volume] in Ser um or PlasmaOrdered By: Stalin Miranda on 06-22-2024 Calcium [Mass/Vol] 9.5 mg/dL 8.6-10.3 [facility] Comment on above: Performed By: #### C BC, BMP #### [address] Capillary blood glucose robert urement by glucometer (mass/volume)Ordered By: Stalin Miranda on 06-22-2024 Glucose [Mass/Vol] 143 mg/dL [facility] Comment on above: Random Glucose Refer ence Range is dependent on time and content of last meal. Glucose of more than 200 mg/dL in a nonstressed, ambulatory subject supports the diagnosis of Diabetes Mellitus. Result Comment: [place] om Glucose Reference Range is dependent on time and content of last meal. Glucose of more than 200 mg/dL in a nonstressed, ambulatory subject supports the diagnosis of Diabetes Mellitus. PERFORMED BY: [place] [address] PATHOLOGIST CREDIT ADJUSTER CORAL GOLD M.D. Performed By: #### C BC, BMP #### [address] [address] [place] Carbon dioxide, total [Moles /volume] in Serum or PlasmaOrdered By: Stalin Miranda on 06-22-2024 CO2 [Moles/Vol] 26.9 mmol/L 21.0-31.0 [facility] Comment on above: Performed By: #### C BC, BMP #### [address] Chloride [Moles/volume] in S karla or PlasmaOrdered By: Stalin Miranda on 06-22-2024 Chloride [Moles/Vol] 99 mmol/L 98-107 [place] Comment on above: Performed By: #### C BC, BMP #### [address] Complete Blood Count Auto Di ffon 06-22-2024 Mean Corpuscular HGB Conc 32.3 g/dL Low 32.5-35.6 [facility] Comment on above: Performed By: #### C BC, BMP #### [address] NRBC% 0.1 /100{WBC} Normal 0-0.5 [facility] Comment on above: Performed By: #### C BC, BMP #### [address] Creatinine [Mass/volume] in Serum or PlasmaOrdered By: Stalin Miranda on 06-22-2024 Creatinine [Mass/Vol] 0.92 mg/dL 0.70-1.30 [facility] Comment on above: Performed By: #### C BC, BMP #### [address] Erythrocyte distribution wid th [Ratio] by Automated countOrdered By: Stalin Miranda on 06-22-2024 Erythrocyte distribution width (RBC) [Ratio] 17.0 % High 12.0-14.8 [facility] Comment on above: Performed By: #### C BC, BMP #### [address] Erythrocytes [#/volume] in B lood by Automated countOrdered By: Stalin Miranda on 06-22-2024 RBC (Bld) [#/Vol] 4.77 10*6/uL 3.90-5.60 [facility] Comment on above: Performed By: #### C NICHOLAS, BMP #### [facility] [address] [id number] [facility] Glucose Poct Glucometerson 0 06-22-2024 Commemt1 Glu2: Cleaned Meter Normal [facility] Comment on above: Result Comment: PERF ORMED BY: [place] [address] PATHOLOGIST CREDIT ADJUSTER CORAL GOLD M.D. Performed By: #### C NICHOLAS, BMP #### [facility] [address] Glucose [Mass/Vol] 128 mg/dL Normal [facility] Comment on above: Result Comment: [place] [facility] Glucose Reference Range is dependent on time and content of last meal. Glucose of more than 200 mg/dL in a nonstressed, ambulatory subject supports the diagnosis of Diabetes Mellitus. Performed By: #### C NICHOLAS, BMP #### [facility] [address] [id number] [place] Glucose [Mass/volume] in Ser um or PlasmaOrdered By: Stalin Miranda on 06-22-2024 Glucose [Mass/Vol] 137 mg/dL High 70-100 [facility] Comment on above: ADA recommended refe rence rangeRandom Glucose Reference Range is dependent on time and content of last meal. Glucose of more than 200 mg/dL in a nonstressed, ambulatory subject supports the diagnosis of Diabetes Mellitus. Result Comment: [place] [facility] Glucose Reference Range is dependent on time and content of last meal. Glucose of more than 200 mg/dL in a nonstressed, ambulatory subject supports the diagnosis of Diabetes Mellitus. ADA recommended reference range Performed By: #### C NICHOLAS, BMP #### [facility] [address] [id number] [place] Hematocrit [Volume Fraction] of Blood by Automated countOrdered By: Stalin Miranda on 06-22-2024 Hematocrit (Bld) [Volume fraction] 40.8 % 38.8-50.0 [facility] Comment on above: Performed By: #### C NICHOLAS, FIOR #### [address] Hemoglobin [Mass/volume] in BloodOrdered By: Stalin Miranda on 06-22-2024 Hemoglobin (Bld) [Mass/Vol] 13.2 g/dL 13.0-17.0 [facility] Comment on above: Performed By: #### C NICHOLAS, FIOR #### [address] INR in Platelet poor plasma by Coagulation assayOrdered By: Stalin Miranda on 06-22-2024 INR Coag (PPP) [Relative time] 2.4 {INR} [facility] Comment on above: INR Therapeutic Rang e A) Pre- and Peroperative OAT started two weeks before surgery. NOT HIP SURGERY: 1.5 - 2.5 HIP SURGERY: 2 - 3B) Primary and secondary prevention of venous THROMBOSIS: 2 - 3C) Active venous thrombosis, pulmonary embolismand prevention of recurrent venous thrombosis: 2 - 3D) Prevention of arterial thromboembolismincluding patients with mechanical heart valves: 3 - 4.5 Result Comment: INR Therapeutic Range A) Pre- [...] heart valves: 3 - 4.5 PERFORMED BY: [place] [address] PATHOLOGIST CREDIT ADJUSTER CORAL GOLD M.D. Performed By: #### P T #### [address] Leukocytes [#/volume] correc faraz for nucleated erythrocytes in Blood by Automated counOrdered By: Stalin Miranda on 06-22-2024 WBC corrected for nucl RBC Auto (Bld) [#/Vol] 10.4 10*3/uL 4.1-10.5 [facility] Leukocytes [#/volume] in Blo od by Automated countOrdered By: Stalin Miranda on 06-22-2024 WBC (Bld) [#/Vol] 10.4 10*3/uL 4.1-10.5 [facility] Comment on above: Performed By: #### C NICHOLAS, BMP #### [facility] [address] [place] [address] [place] Lymphocytes [#/volume] in Bl ood by Automated countOrdered By: Stalin Miranda on 06-22-2024 Lymphocytes (Bld) [#/Vol] 1.8 10*3/uL 1.00-4.8 [facility] Comment on above: Performed By: #### C NICHOLAS, BMP #### [address] Lymphocytes/100 leukocytes i n Blood by Automated countOrdered By: Stalin Miranda on 06-22-2024 Lymphocytes/100 WBC (Bld) 17.0 % . [facility] Comment on above: Performed By: #### C NICHOLAS, BMP #### [facility] [address] [place] [address] MCH [Entitic mass] by Automa faraz countOrdered By: Stalin Miranda on 06-22-2024 MCH (RBC) [Entitic mass] 27.7 pg 27.5-35.2 [facility] Comment on above: Performed By: #### C NICHOLAS, BMP #### [address] MCHC Auto (RBC) [Mass/Vol]Or dered By: Stalin Miranda on 06-22-2024 MCHC (RBC) [Mass/Vol] 32.3 g/dL Low 32.5-35.6 [facility] MCV [Entitic volume] by Auto mated countOrdered By: Stalin Miranda on 06-22-2024 MCV (RBC) [Entitic vol] 85.6 fL 83.5-101 [facility] Comment on above: Performed By: #### C NICHOLAS, BMP #### [facility] [address] Neutrophils [#/volume] in Bl ood by Automated countOrdered By: Stalin Miranda on 06-22-2024 Neutrophils (Bld) [#/Vol] 7.7 10*3/uL 1.8-7.7 [facility] Comment on above: Performed By: #### C NICHOLAS, BMP #### [address] No Panel InformationOrdered By: Stalin Miranda on 06-22-2024 Bedside Glucose Comment Glu2: cleaned meter [facility] Estimated GFR (CKD-EPI) > 60.0 mL/Min [facility] Creatinine Clearance (Chem 89.71 [facility] Nucleated erythrocytes [Pres ence] in Blood by Automated countOrdered By: Stalin Miranda on 06-22-2024 Nucleated RBC Auto Ql (Bld) 0.1 /100{WBC} 0-0.5 [facility] Platelet mean volume [Entiti c volume] in Blood by Automated countOrdered By: Stalin Miranda on 06-22-2024 Platelet mean volume (Bld) [Entitic vol] 7.9 fL 6.6-10.1 [facility] Comment on above: Performed By: #### C NICHOLAS, BMP #### [facility] [address] [place] [address] Platelets [#/volume] in Bloo d by Automated countOrdered By: Stalin Miranda on 06-22-2024 Platelets (Bld) [#/Vol] 237 10*3/uL 150-450 [facility] Comment on above: Performed By: #### C NICHOLAS, BMP #### [facility] [address] [place] [address] Potassium [Moles/volume] in Serum or PlasmaOrdered By: Stalin Miranda on 06-22-2024 Potassium [Moles/Vol] 4.1 mmol/L 3.5-5.1 [facility] Comment on above: Performed By: #### C BC, BMP #### [address] Prothrombin time (PT)Ordered By: Stalin Miranda on 06-22-2024 PT Coag (PPP) [Time] 26.6 s High 9.0-12.9 [place] Comment on above: A hematocrit value g reater than 55% may lead to inaccurate results in coagulation testing. Patients having hematocrit values >55% require a special collection tube for coagulation studies. Please contact the laboratory at [phone] for redraw instructions. Result Comment: A he matocrit value greater than 55% may lead to inaccurate results in coagulation testing. Patients having hematocrit values >55% require a special collection tube for coagulation studies. Please contact the laboratory at [phone] for redraw instructions. Performed By: #### P T #### [address] Serum or plasma anion gap de terminationOrdered By: Stalin Miranda on 06-22-2024 Anion gap [Moles/Vol] 10.2 mmol/L 6.0-15.0 [facility] Comment on above: Performed By: #### C BC, BMP #### [address] Sodium [Moles/volume] in Ser um or PlasmaOrdered By: Stalin Miranda on 06-22-2024 Sodium [Moles/Vol] 132 mmol/L Low 136-145 [facility] Comment on above: Performed By: #### C BC, BMP #### [place] [address] [place] Urea nitrogen [Mass/volume] in Serum or PlasmaOrdered By: Satlin Miranda on 06-22-2024 Urea nitrogen [Mass/Vol] 26 mg/dL High 7-25 [facility] Comment on above: Performed By: #### C BC, BMP #### [address] Basic Metabolic Panelon 08-0 Anion gap [Moles/Vol] 9.4 mmol/L Normal 6.0-15.0 [facility] Comment on above: Performed By: #### C BC, BMP #### [facility] [address] [place] [address] [place] Calcium [Mass/Vol] 9.4 mg/dL Normal 8.6-10.3 [facility] Comment on above: Performed By: #### C BC, BMP #### [facility] [address] [place] [address] [place] Chloride [Moles/Vol] 100 mmol/L Normal 98-107 [facility] Comment on above: Performed By: #### C BC, BMP #### [facility] [address] [id number] [place] CO2 [Moles/Vol] 27.6 mmol/L Normal 21.0-31.0 [facility] Comment on above: Performed By: #### C BC, BMP #### [place] [address] [place] Creatinine [Mass/Vol] 1.20 mg/dL Normal 0.70-1.30 [facility] Comment on above: Performed By: #### C BC, BMP #### [place] [address] [place] Creatinine Clr Calc Pharmacy 68.60 Normal [facility] Comment on above: Result Comment: PERF ORMED BY: [place] [address] PATHOLOGIST CREDIT ADJUSTER CORAL GOLD M.D. Performed By: #### C BC, BMP #### [place] [address] [place] GFR/1.73 sq M.predicted MDRD (S/P/Bld) [Vol rate/Area] mL/min/{1.73_m2} Normal [facility] Comment on above: Performed By: #### C BC, BMP #### [address] Glucose [Mass/Vol] 104 mg/dL High 70-100 [facility] Comment on above: Result Comment: [place] Glucose Reference Range is dependent on time and content of last meal. Glucose of more than 200 mg/dL in a nonstressed, ambulatory subject supports the diagnosis of Diabetes Mellitus. ADA recommended reference range Performed By: #### C BC, BMP #### [address] Potassium [Moles/Vol] 4.0 mmol/L Normal 3.5-5.1 [facility] Comment on above: Performed By: #### C BC, BMP #### [address] Sodium [Moles/Vol] 133 mmol/L Low 136-145 [facility] Comment on above: Performed By: #### C BC, BMP #### [address] Urea nitrogen [Mass/Vol] 31 mg/dL High 7-25 [facility] Comment on above: Performed By: #### C BC, BMP #### [address] Complete Blood Count Auto Di ffon 06-21-2024 Basophils (Bld) [#/Vol] 0.1 10*3/uL Normal 0.0-0.2 [facility] Comment on above: Result Comment: PERF ORMED BY: [place] [address] PATHOLOGIST CREDIT ADJUSTER CORAL GOLD M.D. Performed By: #### C BC, BMP #### [address] Basophils/100 WBC (Bld) 1.0 % Normal . [facility] Comment on above: Performed By: #### C BC, BMP #### [place] [address] [place] Eosinophils (Bld) [#/Vol] 0.3 10*3/uL Normal 0.0-0.45 [facility] Comment on above: Performed By: #### C BC, BMP #### [place] [address] [place] Eosinophils/100 WBC (Bld) 3.3 % Normal . [facility] Comment on above: Performed By: #### C BC, BMP #### [address] Erythrocyte distribution width (RBC) [Ratio] 17.0 % High 12.0-14.8 [facility] Comment on above: Performed By: #### C BC, BMP #### [address] Hematocrit (Bld) [Volume fraction] 39.4 % Normal 38.8-50.0 [facility] Comment on above: Performed By: #### C BC, BMP #### [address] Hemoglobin (Bld) [Mass/Vol] 12.8 g/dL Low 13.0-17.0 [facility] Comment on above: Performed By: #### C BC, BMP #### [address] Lymphocytes (Bld) [#/Vol] 1.5 10*3/uL Normal 1.00-4.8 [facility] Comment on above: Performed By: #### C BC, BMP #### [address] Lymphocytes/100 WBC (Bld) 19.5 % Normal . [facility] Comment on above: Performed By: #### C BC, BMP #### [address] MCH (RBC) [Entitic mass] 27.9 pg Normal 27.5-35.2 [facility] Comment on above: Performed By: #### C BC, BMP #### [address] MCV (RBC) [Entitic vol] 85.9 fL Normal 83.5-101 [facility] Comment on above: Performed By: #### C BC, BMP #### [address] Mean Corpuscular HGB Conc 32.5 g/dL Normal 32.5-35.6 [facility] Comment on above: Performed By: #### C BC, BMP #### [facility] [address] [place] [address] [place] Monocytes (Bld) [#/Vol] 0.6 10*3/uL Normal 0.0-0.8 [facility] Comment on above: Performed By: #### C BC, BMP #### [facility] [address] [place] [address] [place] Monocytes/100 WBC (Bld) 8.3 % Normal . [facility] Comment on above: Performed By: #### C BC, BMP #### [facility] [address] [place] [address] [place] Neutrophils (Bld) [#/Vol] 5.2 10*3/uL Normal 1.8-7.7 [facility] Comment on above: Performed By: #### C BC, BMP #### [address] Neutrophils/100 WBC (Bld) 67.9 % Normal . [facility] Comment on above: Performed By: #### C BC, BMP #### [facility] [address] [place] [address] [place] NRBC% 0.0 /100{WBC} Normal 0-0.5 [facility] Comment on above: Performed By: #### C BC, BMP #### [place] [address] [place] Platelet mean volume (Bld) [Entitic vol] 7.9 fL Normal 6.6-10.1 [facility] Comment on above: Performed By: #### C BC, BMP #### [facility] [address] [place] [address] [place] Platelets (Bld) [#/Vol] 219 10*3/uL Normal 150-450 [facility] Comment on above: Performed By: #### C BC, BMP #### [place] [address] [place] RBC (Bld) [#/Vol] 4.58 10*6/uL Normal 3.90-5.60 [facility] Comment on above: Performed By: #### C BC, BMP #### [facility] [address] WBC (Bld) [#/Vol] 7.7 10*3/uL Normal 4.1-10.5 [facility] Comment on above: Performed By: #### C BC, BMP #### [facility] [address] Glucose Poct Glucometerson 0 06-21-2024 Commemt1 Glu2: Cleaned Meter Normal [facility] Comment on above: Result Comment: PERF ORMED BY: [place] [address] PATHOLOGIST CREDIT ADJUSTER CORAL GOLD M.D. Performed By: #### C BC, BMP #### [facility] [address] [place] [address] [place] Glucose [Mass/Vol] 123 mg/dL Normal [facility] Comment on above: Result Comment: [place] Glucose Reference Range is dependent on time and content of last meal. Glucose of more than 200 mg/dL in a nonstressed, ambulatory subject supports the diagnosis of Diabetes Mellitus. Performed By: #### C BC, BMP #### [address] Glucose [Mass/Vol] 151 mg/dL Normal [facility] Comment on above: Result Comment: [place] Glucose Reference Range is dependent on time and content of last meal. Glucose of more than 200 mg/dL in a nonstressed, ambulatory subject supports the diagnosis of Diabetes Mellitus. PERFORMED BY: [place] [address] PATHOLOGIST CREDIT ADJUSTER CORAL GOLD M.D. Performed By: #### G LULS #### Point of Care testing , Glucose [Mass/Vol] 129 mg/dL Normal [facility] Comment on above: Result Comment: [place] Glucose Reference Range is dependent on time and content of last meal. Glucose of more than 200 mg/dL in a nonstressed, ambulatory subject supports the diagnosis of Diabetes Mellitus. PERFORMED BY: [address] [address] PATHOLOGIST CREDIT ADJUSTER CORAL GOLD M.D. Performed By: #### C NICHOLAS, FIRO #### [address] Glucose [Mass/Vol] 114 mg/dL Normal [facility] Comment on above: Result Comment: [facility] Glucose Reference Range is dependent on time and content of last meal. Glucose of more than 200 mg/dL in a nonstressed, ambulatory subject supports the diagnosis of Diabetes Mellitus. PERFORMED BY: [place] [address] PATHOLOGIST CREDIT ADJUSTER CORAL GOLD M.D. Performed By: #### G QUE #### Point of Care testing , Prothrombin Time INRon 06-21 INR Coag (PPP) [Relative time] 2.2 {INR} Normal [facility] Comment on above: Result Comment: INR Therapeutic [...] heart valves: 3 - 4.5 PERFORMED BY: [place] [address] PATHOLOGIST CREDIT ADJUSTER CORAL GOLD M.D. Performed By: #### P T #### [address] PT Coag (PPP) [Time] 25.2 s High 9.0-12.9 [facility] Comment on above: Result Comment: A he matocrit value greater than 55% may lead to inaccurate results in coagulation testing. Patients having hematocrit values >55% require a special collection tube for coagulation studies. Please contact the laboratory at [phone] for redraw instructions. Performed By: #### P T #### [address] Basic Metabolic Panelon 07-3 Anion gap [Moles/Vol] 11.8 mmol/L Normal 6.0-15.0 [facility] Comment on above: Performed By: #### C BC, BMP #### [place] [address] [place] Calcium [Mass/Vol] 9.0 mg/dL Normal 8.6-10.3 [facility] Comment on above: Performed By: #### C BC, BMP #### [place] [address] [place] Chloride [Moles/Vol] 98 mmol/L Normal 98-107 [facility] Comment on above: Performed By: #### C BC, BMP #### [place] [address] [place] CO2 [Moles/Vol] 27.1 mmol/L Normal 21.0-31.0 [facility] Comment on above: Performed By: #### C BC, BMP #### [place] [address] [place] Creatinine [Mass/Vol] 1.48 mg/dL High 0.70-1.30 [facility] Comment on above: Performed By: #### C BC, BMP #### [place] [address] [place] Creatinine Clr Calc Pharmacy 54.81 Normal [facility] Comment on above: Result Comment: PERF ORMED BY: [place] [address] PATHOLOGIST CREDIT ADJUSTER CORAL GOLD M.D. Performed By: #### C BC, BMP #### [place] [address] [place] GFR/1.73 sq M.predicted MDRD (S/P/Bld) [Vol rate/Area] 48.126 mL/min/{1.73_m2} Normal [facility] Comment on above: Performed By: #### C BC, BMP #### [place] [address] [place] Glucose [Mass/Vol] 128 mg/dL High 70-100 [facility] Comment on above: Result Comment: [place] Glucose Reference Range is dependent on time and content of last meal. Glucose of more than 200 mg/dL in a nonstressed, ambulatory subject supports the diagnosis of Diabetes Mellitus. ADA recommended reference range Performed By: #### C BC, BMP #### [address] Potassium [Moles/Vol] 3.9 mmol/L Normal 3.5-5.1 [facility] Comment on above: Performed By: #### C BC, BMP #### [address] Sodium [Moles/Vol] 133 mmol/L Low 136-145 [facility] Comment on above: Performed By: #### C BC, BMP #### [address] Urea nitrogen [Mass/Vol] 40 mg/dL High 7-25 [facility] Comment on above: Performed By: #### C BC, BMP #### [address] Complete Blood Count Auto Di ffon 06-20-2024 Basophils (Bld) [#/Vol] 0.1 10*3/uL Normal 0.0-0.2 [facility] Comment on above: Result Comment: PERF ORMED BY: [place] [address] PATHOLOGIST CREDIT ADJUSTER CORAL GOLD M.D. Performed By: #### C BC, BMP #### [place] [address] [place] Basophils/100 WBC (Bld) 0.7 % Normal . [facility] Comment on above: Performed By: #### C BC, BMP #### [place] [address] [place] Eosinophils (Bld) [#/Vol] 0.2 10*3/uL Normal 0.0-0.45 [facility] Comment on above: Performed By: #### C BC, BMP #### [place] [address] [place] Eosinophils/100 WBC (Bld) 2.7 % Normal . [facility] Comment on above: Performed By: #### C BC, BMP #### [address] Erythrocyte distribution width (RBC) [Ratio] 16.5 % High 12.0-14.8 [facility] Comment on above: Performed By: #### C BC, BMP #### [address] Hematocrit (Bld) [Volume fraction] 39.5 % Normal 38.8-50.0 [facility] Comment on above: Performed By: #### C BC, BMP #### [address] Hemoglobin (Bld) [Mass/Vol] 12.6 g/dL Low 13.0-17.0 [facility] Comment on above: Performed By: #### C BC, BMP #### [address] Lymphocytes (Bld) [#/Vol] 1.6 10*3/uL Normal 1.00-4.8 [facility] Comment on above: Performed By: #### C BC, BMP #### [address] Lymphocytes/100 WBC (Bld) 18.3 % Normal . [facility] Comment on above: Performed By: #### C BC, BMP #### [address] MCH (RBC) [Entitic mass] 27.7 pg Normal 27.5-35.2 [facility] Comment on above: Performed By: #### C BC, BMP #### [address] MCV (RBC) [Entitic vol] 86.8 fL Normal 83.5-101 [facility] Comment on above: Performed By: #### C BC, BMP #### [address] Mean Corpuscular HGB Conc 31.9 g/dL Low 32.5-35.6 [facility] Comment on above: Performed By: #### C BC, BMP #### [facility] [address] [place] [address] [place] Monocytes (Bld) [#/Vol] 0.7 10*3/uL Normal 0.0-0.8 [facility] Comment on above: Performed By: #### C BC, BMP #### [facility] [address] [place] [address] [place] Monocytes/100 WBC (Bld) 8.0 % Normal . [facility] Comment on above: Performed By: #### C BC, BMP #### [facility] [address] [place] [address] [place] Neutrophils (Bld) [#/Vol] 6.1 10*3/uL Normal 1.8-7.7 [facility] Comment on above: Performed By: #### C BC, BMP #### [facility] [address] [place] [address] [place] Neutrophils/100 WBC (Bld) 70.3 % Normal . [facility] Comment on above: Performed By: #### C BC, BMP #### [facility] [address] [place] [address] [place] NRBC% 0.2 /100{WBC} Normal 0-0.5 [facility] Comment on above: Performed By: #### C BC, BMP #### [facility] [address] [place] [address] [place] Platelet mean volume (Bld) [Entitic vol] 8.1 fL Normal 6.6-10.1 [facility] Comment on above: Performed By: #### C BC, BMP #### [facility] [address] [place] [address] [place] Platelets (Bld) [#/Vol] 232 10*3/uL Normal 150-450 [facility] Comment on above: Performed By: #### C BC, BMP #### [facility] [address] [place] [address] [place] RBC (Bld) [#/Vol] 4.55 10*6/uL Normal 3.90-5.60 [facility] Comment on above: Performed By: #### C BC, BMP #### [address] WBC (Bld) [#/Vol] 8.7 10*3/uL Normal 4.1-10.5 [facility] Comment on above: Performed By: #### C BC, BMP #### [facility] [address] Glucose Poct Glucometerson 0 06-20-2024 Glucose [Mass/Vol] 131 mg/dL Normal [facility] Comment on above: Result Comment: [place] Glucose Reference Range is dependent on time and content of last meal. Glucose of more than 200 mg/dL in a nonstressed, ambulatory subject supports the diagnosis of Diabetes Mellitus. PERFORMED BY: [place] [address] PATHOLOGIST CREDIT ADJUSTER CORAL GOLD M.D. Performed By: #### C NICHOLAS, BMP #### [address] Glucose [Mass/Vol] 130 mg/dL Normal [facility] Comment on above: Result Comment: [place] Glucose Reference Range is dependent on time and content of last meal. Glucose of more than 200 mg/dL in a nonstressed, ambulatory subject supports the diagnosis of Diabetes Mellitus. PERFORMED BY: [place] [address] PATHOLOGIST CREDIT ADJUSTER CORAL GOLD M.D. Performed By: #### G QUE #### Point of Care testing , Prothrombin Time INRon 06-20 INR Coag (PPP) [Relative time] 2.2 {INR} Normal [facility] Comment on above: Result Comment: INR Therapeutic [...] heart valves: 3 - 4.5 PERFORMED BY: [place] [address] PATHOLOGIST CREDIT ADJUSTER CORAL GOLD M.D. Performed By: #### C BC, BMP #### [place] [id number] [facility] PT Coag (PPP) [Time] 25.4 s High 9.0-12.9 [facility] Comment on above: Result Comment: A he matocrit value greater than 55% may lead to inaccurate results in coagulation testing. Patients having hematocrit values >55% require a special collection tube for coagulation studies. Please contact the laboratory at [phone] for redraw instructions. Performed By: #### C BC, BMP #### [address] A1C with Estimated Average G luon 06-19-2024 Glucose [Mass/Vol] 183 mg/dL Normal [facility] Comment on above: Result Comment: PERF ORMED BY: [place] [address] PATHOLOGIST CREDIT ADJUSTER CORAL GOLD M.D. Performed By: #### G LULS #### Point of Care testing , Activated partial thrombopla stin time (aPTT) in platelet poor plasma by coagulation aOrdered By: Stalin Miranda on 06-19-2024 aPTT Coag (PPP) [Time] 38.4 s High 25.1-36.5 [facility] Comment on above: A hematocrit value g reater than 55% may lead to inaccurate results in coagulation testing. Patients having hematocrit values >55% require a special collection tube for coagulation studies. Please contact the laboratory at [phone] for redraw instructions. Basic Metabolic Panelon 05-23 Anion gap [Moles/Vol] 9.5 mmol/L Normal 6.0-15.0 [facility] Comment on above: Performed By: #### G LULS #### Point of Care testing , Calcium [Mass/Vol] 9.5 mg/dL Normal 8.6-10.3 [facility] Comment on above: Performed By: #### G LULS #### Point of Care testing , Chloride [Moles/Vol] 98 mmol/L Normal 98-107 [facility] Comment on above: Performed By: #### G LULS #### Point of Care testing , CO2 [Moles/Vol] 29.8 mmol/L Normal 21.0-31.0 [facility] Comment on above: Performed By: #### G LULS #### Point of Care testing , Creatinine [Mass/Vol] 1.65 mg/dL High 0.70-1.30 [facility] Comment on above: Performed By: #### G LULS #### Point of Care testing , Creatinine Clr Calc Pharmacy 49.73 Normal [facility] Comment on above: Performed By: #### G LULS #### Point of Care testing , GFR/1.73 sq M.predicted MDRD (S/P/Bld) [Vol rate/Area] 42.239 mL/min/{1.73_m2} Normal [facility] Comment on above: Performed By: #### G LULS #### Point of Care testing , Glucose [Mass/Vol] 122 mg/dL High 70-100 [facility] Comment on above: Result Comment: [facility] Glucose Reference Range is dependent on time and content of last meal. Glucose of more than 200 mg/dL in a nonstressed, ambulatory subject supports the diagnosis of Diabetes Mellitus. ADA recommended reference range Performed By: #### G LULS #### Point of Care testing , Potassium [Moles/Vol] 4.3 mmol/L Normal 3.5-5.1 [facility] Comment on above: Performed By: #### G LULS #### Point of Care testing , Sodium [Moles/Vol] 133 mmol/L Low 136-145 [facility] Comment on above: Performed By: #### G LULS #### Point of Care testing , Urea nitrogen [Mass/Vol] 47 mg/dL High 7-25 [facility] Comment on above: Performed By: #### G LULS #### Point of Care testing , Complete Blood Count Auto Di ffon 06-19-2024 Basophils (Bld) [#/Vol] 0.1 10*3/uL Normal 0.0-0.2 [facility] Comment on above: Result Comment: PERF ORMED BY: [facility] [place] [address] PATHOLOGIST CREDIT ADJUSTER CORAL GOLD M.D. Performed By: #### G LULS #### Point of Care testing , Basophils/100 WBC (Bld) 1.2 % Normal . [facility] Comment on above: Performed By: #### G LULS #### Point of Care testing , Eosinophils (Bld) [#/Vol] 0.2 10*3/uL Normal 0.0-0.45 [facility] Comment on above: Performed By: #### G LULS #### Point of Care testing , Eosinophils/100 WBC (Bld) 1.6 % Normal . [facility] Comment on above: Performed By: #### G LULS #### Point of Care testing , Erythrocyte distribution width (RBC) [Ratio] 16.6 % High 12.0-14.8 [facility] Comment on above: Performed By: #### G LULS #### Point of Care testing , Hematocrit (Bld) [Volume fraction] 39.1 % Normal 38.8-50.0 [facility] Comment on above: Performed By: #### G LULS #### Point of Care testing , Hemoglobin (Bld) [Mass/Vol] 12.8 g/dL Low 13.0-17.0 [facility] Comment on above: Performed By: #### G LULS #### Point of Care testing , Lymphocytes (Bld) [#/Vol] 1.9 10*3/uL Normal 1.00-4.8 [facility] Comment on above: Performed By: #### G LULS #### Point of Care testing , Lymphocytes/100 WBC (Bld) 19.8 % Normal . [facility] Comment on above: Performed By: #### G LULS #### Point of Care testing , MCH (RBC) [Entitic mass] 28.0 pg Normal 27.5-35.2 [facility] Comment on above: Performed By: #### G LULS #### Point of Care testing , MCV (RBC) [Entitic vol] 85.8 fL Normal 83.5-101 [facility] Comment on above: Performed By: #### G LULS #### Point of Care testing , Mean Corpuscular HGB Conc 32.6 g/dL Normal 32.5-35.6 [facility] Comment on above: Performed By: #### G LULS #### Point of Care testing , Monocytes (Bld) [#/Vol] 0.8 10*3/uL Normal 0.0-0.8 [facility] Comment on above: Performed By: #### G LULS #### Point of Care testing , Monocytes/100 WBC (Bld) 8.0 % Normal . [facility] Comment on above: Performed By: #### G LULS #### Point of Care testing , Neutrophils (Bld) [#/Vol] 6.8 10*3/uL Normal 1.8-7.7 [facility] Comment on above: Performed By: #### G LULS #### Point of Care testing , Neutrophils/100 WBC (Bld) 69.4 % Normal . [facility] Comment on above: Performed By: #### G LULS #### Point of Care testing , NRBC% 0.0 /100{WBC} Normal 0-0.5 [facility] Comment on above: Performed By: #### G LULS #### Point of Care testing , Platelet mean volume (Bld) [Entitic vol] 7.6 fL Normal 6.6-10.1 [facility] Comment on above: Performed By: #### G LULS #### Point of Care testing , Platelets (Bld) [#/Vol] 219 10*3/uL Normal 150-450 [facility] Comment on above: Performed By: #### G LULS #### Point of Care testing , RBC (Bld) [#/Vol] 4.56 10*6/uL Normal 3.90-5.60 [facility] Comment on above: Performed By: #### G LULS #### Point of Care testing , WBC (Bld) [#/Vol] 9.7 10*3/uL Normal 4.1-10.5 [facility] Comment on above: Performed By: #### G LULS #### Point of Care testing , [facility] echo transthoracicon [facility] echo transthoracic [facility] [place] [address] Echocardiogram Signed Patient: Nirmal Chaidez MR#: [id number] 9 : 1945 Acct:[id number] Age/Sex: 78 / M ADM Date: 06/19/24 Loc: Room: [address] [place] [address] Type: ADM IN Attending Dr: Stalin Miranda MD Ordering Provider: Michael Mullen MD Date of Service: 06/19/24 [facility] transthoracic: syncope Copies to: Milo Cameron MD, [facility] Michael Mullen MD Weight: 314 lb Performed By: BERONICA Liriano BSA: 2.4 m2 BP: 125/65 mmHg HR: 60 Reason For Study: syncope History: A. Fib.,DM, HTN, COPD, HLD, S/P PACEMAKER Interpretation Summary The left ventricular size, thickness and function are normal The LV ejection fraction is 55 %. The right ventricle is mildly dilated. Pacemaker wire seen Procedure/Quality: A two-dimensional transthoracic echocardiogram with color flow, Doppler and injection of contrast agent Definity was performed. The study was technically suboptimal in quality due to poor acoustic windows . Left Ventricle: The left ventricular size, thickness and function are normal. The LV ejection fraction is 55 %. Left Atrium: The left atrium appears normal in size. Right Atrium: The right atrium appears normal in size. Right Ventricle: The right ventricle is mildly dilated. The right ventricular systolic function is mildly reduced. Aortic Valve: The aortic valve is not well visualized. Mitral Valve: The mitral valve is not well visualized. Tricuspid Valve: The tricuspid valve is not well visualized. Pulmonic Valve: The pulmonic valve is not well visualized. Arteries: The aortic root is normal size. Pericardium/Pleura: No pericardial effusion seen. There is no pleural effusion. IVC/Hepatic Veins: The IVC is normal in size with an inspiratory collapse of greater then 50%, suggesting normal right atrial pressure. Miscellaneous: No thrombus, vegetation or mass is seen. Pacemaker wire seen. Measurements with Normals IVSd: 1.2 cm (0.7-1.1 cm)LVIDd: 5.1 cm (3.7-5.4 cm) LVPWd: 1.5 cm (0.7-1.1 cm)LVIDs: 3.8 cm (2.3-3.6 cm) LA dimension: 4.1 cm(2.3-4.0 cm)Ao root diam: 3.9 cm(2.0-3.6 cm) Doppler with Normals RVSP(TR): 31.0 mmHg (18-35mmHg) LV V1 max: 48.3 cm/sec (0.7-1.7m/s)MV E max yani: 71.1 cm/sec(0.8-1.3m/s) MV A max yani: 37.7 cm/sec(0.0-0.0m/s) MV E/A: 1.9 (<1.5) MMode/2D Measurements Calculations RVDd: 4.9 cm FS: 25.5 % Ao root area: LVOT diam: TAPSE: 2.5 cm EDV(Teich): 123.8 ml 11.9 cm2 2.0 cm RV S Yani: ESV(Teich): 62.0 ml LVOT area: 11.0 cm/sec EF(Teich): 50.0 % 3.1 cm2 __ LAV(MOD-sp4): 67.1 ml LA A4 area: 23.7 cm2 LA length (vol): 6.5 cm Doppler Measurements Calculations MV dec time: E/E' lat: 5.6 MV dec slope: Ao V2 max: 0.32 sec E/E' med: 7.6 221.0 cm/sec2 107.0 cm/sec Ao max P.6 mmHg Ao mean P.0 mmHg Ao V2 mean: 82.4 cm/sec Ao V2 VTI: 19.2 cm SUSHMA(I,D): 1.5 cm2 SUSHMA(V,D): 1.4 cm2 __ LV V1 max PG: TV max PG: TR max yani: 0.93 mmHg 26.0 mmHg 255.0 cm/sec LV V1 mean PG: TR max P.0 mmHg 0.00 mmHg RAP systole: 5.0 mmHg LV V1 mean: 32.2 cm/sec LV V1 VTI: 8.9 cm Transcribed By: STEVEN Performed At: 06/19/24 1428 Signed By: Milo Cameron MD, [facility] 06/20/24 1410 Normal [facility] Folate [Mass/volume] in Seru m or PlasmaOrdered By: Stalin Miranda on 06-19-2024 Folate [Mass/Vol] 7.4 ng/mL >5.9 [facility] Comment on above: Folate reference ran ge: >5.9 ng/mlThe WHO technical consultation on folate and vitamin [id number] has determined that folate concentrations lessthan 4 ng/ml are considered deficient. Glucose Poct Glucometerson 0 06-19-2024 Glucose [Mass/Vol] 104 mg/dL Normal [facility] Comment on above: Result Comment: [place] Glucose Reference Range is dependent on time and content of last meal. Glucose of more than 200 mg/dL in a nonstressed, ambulatory subject supports the diagnosis of Diabetes Mellitus. PERFORMED BY: [place] [address] PATHOLOGIST CREDIT ADJUSTER CORAL GOLD M.D. Performed By: #### C BC, BMP #### [address] Commemt1 Glu2: Cleaned Meter Normal [facility] Comment on above: Result Comment: PERF ORMED BY: [place] [address] PATHOLOGIST CREDIT ADJUSTER CORAL GOLD M.D. Performed By: #### C BC, BMP #### [facility] [address] [place] [address] Glucose [Mass/Vol] 109 mg/dL Normal [facility] Comment on above: Result Comment: [place] om Glucose Reference Range is dependent on time and content of last meal. Glucose of more than 200 mg/dL in a nonstressed, ambulatory subject supports the diagnosis of Diabetes Mellitus. Performed By: #### C BC, BMP #### [address] Commemt1 Glu2: Cleaned Meter Normal [facility] Comment on above: Result Comment: PERF ORMED BY: [place] [address] PATHOLOGIST CREDIT ADJUSTER CORAL GOLD M.D. Performed By: #### G LULS #### Point of Care testing , Glucose [Mass/Vol] 119 mg/dL Normal [facility] Comment on above: Result Comment: [place] om Glucose Reference Range is dependent on time and content of last meal. Glucose of more than 200 mg/dL in a nonstressed, ambulatory subject supports the diagnosis of Diabetes Mellitus. Performed By: #### G LULS #### Point of Care testing , Glucose [Mass/Vol] 116 mg/dL Normal [facility] Comment on above: Result Comment: [place] om Glucose Reference Range is dependent on time and content of last meal. Glucose of more than 200 mg/dL in a nonstressed, ambulatory subject supports the diagnosis of Diabetes Mellitus. PERFORMED BY: [place] [address] PATHOLOGIST CREDIT ADJUSTER CORAL GOLD M.D. Performed By: #### G LULS #### Point of Care testing , Glucose mean value [Mass/vol ume] in Blood Estimated from glycated hemoglobinOrdered By: Stalin Miranda on 06-19-2024 Average glucose Estimated from glycated hemoglobin (Bld) [Mass/Vol] 183 mg/dL [facility] Hemoglobin A1c percentageOrd ered By: Stalin Miranda on 06-19-2024 HbA1c (Bld) [Mass fraction] 8.0 % High 4.3-5.6 [facility] Comment on above: Increased risk for d iabetes: 5.7 - 6.4diabetes: >6.4glycemic control for adults with diabetes: <7.0 Result Comment: Incr eased risk for diabetes: 5.7 - 6.4 diabetes: >6.4 glycemic control for adults with diabetes: <7.0 Performed By: #### G LULS #### Point of Care testing , Partial Thromboplastin Timeo n 06-19-2024 aPTT Coag (Bld) [Time] 38.4 s High 25.1-36.5 [facility] Comment on above: Result Comment: A he matocrit value greater than 55% may lead to inaccurate results in coagulation testing. Patients having hematocrit values >55% require a special collection tube for coagulation studies. Please contact the laboratory at [phone] for redraw instructions. PERFORMED BY: [place] [address] [place] [address] PATHOLOGIST CREDIT ADJUSTER CORAL GOLD M.D. Performed By: #### G LULS #### Point of Care testing , Prothrombin Time INRon 06-19 INR Coag (PPP) [Relative time] 2.4 {INR} Normal [facility] Comment on above: Result Comment: INR Therapeutic [...] valves: 3 - 4.5 Performed By: #### G LULS #### Point of Care testing , PT Coag (PPP) [Time] 27.1 s High 9.0-12.9 [facility] Comment on above: Result Comment: A he matocrit value greater than 55% may lead to inaccurate results in coagulation testing. Patients having hematocrit values >55% require a special collection tube for coagulation studies. Please contact the laboratory at [phone] for redraw instructions. Performed By: #### G LULS #### Point of Care testing , Thyrotropin [Units/volume] i n Serum or PlasmaOrdered By: Stalin Miranda on 06-19-2024 TSH Qn 2.14 m[IU]/L 0.45-5.33 [facility] Comment on above: Performed By: #### G LULS #### Point of Care testing , Troponin I High Sensitivityo n 06-19-2024 Troponin I High Sensitivity 27.6 pg/mL High 0.0-20.0 [facility] Comment on above: Result Comment: PERF ORMED BY: [facility] [address] [place] [address] PATHOLOGIST CREDIT ADJUSTER CORAL GOLD M.D. Performed By: #### G LULS #### Point of Care testing , Troponin I.cardiac [Mass/vol ume] in Serum or Plasma by Detection limit <= 0.01 ng/Ordered By: Stalin Miranda on 06-19-2024 Troponin I.cardiac DL <= 0.01 ng/mL [Mass/Vol] 27.6 pg/mL High 0.0-20.0 [facility] Vit. B12/Folate Profileon Folate 7.4 ng/mL Normal >5.9 [facility] Comment on above: Result Comment: [place] te reference range: >5.9 ng/ml The WHO technical consultation on folate and vitamin b12 deficiencies has determined that folate concentrations less than 4 ng/ml are considered deficient. Performed By: #### G LULS #### Point of Care testing , Vitamin B12 ser/plasOrdered By: Stalin Miranda on 06-19-2024 Cobalamin (Vitamin B12) [Mass/Vol] 188 pg/mL 180-914 [facility] Comment on above: Performed By: #### G LULS #### Point of Care testing , Vitamin D 25 Hydroxy Totalon 06-19-2024 Vitamin D 25 Hydroxy Total 26.8 ng/mL Low 30-100 [facility] Comment on above: Result Comment: MARYURI MIN D STATUS 25(OH)VITAMIN D RANGE (ng/mL) Deficient <20 Insufficient 20 to <30 Sufficient 30 to 100 Reference: Sharad Orellana, [place] TOVAR, et al. Evaluation,treatment, and prevention of vitamin D deficiency; an Endocrine Society clinical practice guideline. JCEM. 2010; 96(7):1911-. PERFORMED BY: [place] [address] PATHOLOGIST CREDIT ADJUSTER CORAL GOLD M.D. Performed By: #### G LUSANAM #### Point of Care testing , Vitamin D+Metabolites [Mass/ volume] in Serum or PlasmaOrdered By: Stalin Miranda on 06-19-2024 Vitamin D+Metabolites [Mass/Vol] 26.8 ng/mL Low 30-100 [facility] Comment on above: VITAMIN D STATUS 25( [place])VITAMIN D RANGE (ng/mL) Deficient <20 Insufficient 20 to <30Sufficient 30 to 100Reference: Sharad Orellana, [place] TOVAR, et al. Evaluation,treatment, and prevention of vitamin D deficiency; an Endocrine Society clinical practice guideline. JCEM. 2010; 96(7):1911-30. Alanine aminotransferase [En zymatic activity/volume] in Serum or PlasmaOrdered By: Domenico Betancourt on 06-18-2024 ALT [Catalytic activity/Vol] 8 U/L 7-52 [facility] Comment on above: Performed By: #### C BC, BMP #### [facility] [address] [place] [address] [place] Albumin [Mass/volume] in Ser um or Plasma by Bromocresol green (BCG) dye binding methoOrdered By: Domenico Betancourt on 06-18-2024 Albumin BCG dye [Mass/Vol] 3.9 g/dL 3.5-5.7 [facility] Alkaline phosphatase [Enzyma tic activity/volume] in Serum or PlasmaOrdered By: Domenico Betancourt on 06-18-2024 ALP [Catalytic activity/Vol] 85 U/L 34-104 [facility] Comment on above: Performed By: #### C BC, BMP #### [address] Aspartate aminotransferase [ Enzymatic activity/volume] in Serum or PlasmaOrdered By: Domenico Betancourt on 06-18-2024 AST [Catalytic activity/Vol] 11 U/L Low 13-39 [facility] Comment on above: Performed By: #### C BC, BMP #### [address] Automated basophil %Ordered By: Domenico Betancourt on 06-18-2024 Basophils/100 WBC (Bld) 0.6 % Normal . [facility] Comment on above: Performed By: #### C BC, BMP #### [address] Automated basophil countOrde red By: Domenico Betancourt on 06-18-2024 Basophils (Bld) [#/Vol] 0.1 10*3/uL Normal 0.0-0.2 [facility] Comment on above: Result Comment: PERF ORMED BY: [place] [address] PATHOLOGIST CREDIT ADJUSTER CORAL GOLD M.D. Performed By: #### C BC, BMP #### [address] Automated blood monocyte cou ntOrdered By: Domenico Betancourt on 06-18-2024 Monocytes (Bld) [#/Vol] 0.7 10*3/uL Normal 0.0-0.8 [facility] Comment on above: Performed By: #### C BC, BMP #### [address] Automated eosinophil %Ordere d By: Domenico Betancourt on 06-18-2024 Eosinophils/100 WBC (Bld) 1.1 % Normal . [facility] Comment on above: Performed By: #### C BC, BMP #### [address] Automated eosinophil countOr dered By: Domenico Betancourt on 06-18-2024 Eosinophils (Bld) [#/Vol] 0.1 10*3/uL Normal 0.0-0.45 [facility] Comment on above: Performed By: #### C BC, BMP #### [address] Automated monocyte %Ordered By: Domenico Betancourt on 06-18-2024 Monocytes/100 WBC (Bld) 5.6 % Normal . [facility] Comment on above: Performed By: #### C BC, BMP #### [address] Automated neutrophil %Ordere d By: Domenico Betancourt on 06-18-2024 Neutrophils/100 WBC (Bld) 73.9 % Normal . [facility] Comment on above: Performed By: #### C BC, BMP #### [address] BNP ser/plasOrdered By: Edgardo Betancourt on 06-18-2024 Natriuretic peptide B (Bld) [Mass/Vol] 50.0 pg/mL 5-100 [facility] Comment on above: Result Comment: PERF ORMED BY: [place] [address] PATHOLOGIST CREDIT ADJUSTER CORAL GOLD M.D. Performed By: #### C BC, BMP #### [address] Bacteria [Presence] in Urine by AutomatedOrdered By: Domenico Betancourt on 06-18-2024 Bacteria Auto Ql (U) None seen [HPF] None Seen [facility] Basic Metabolic Panelon 05-22 Creatinine Clr Calc Pharmacy 59.12 Normal [facility] Comment on above: Performed By: #### C BC, BMP #### [place] [address] [place] GFR/1.73 sq M.predicted MDRD (S/P/Bld) [Vol rate/Area] 51.445 mL/min/{1.73_m2} Normal [facility] Comment on above: Performed By: #### C BC, BMP #### [address] [place] [address] [place] Bilirubin Test strip Ql (U)O rdered By: Domenicomathew Betancourt on 06-18-2024 Bilirubin Ql (U) Negative Negative [facility] Bilirubin.direct [Mass/volum e] in Serum or PlasmaOrdered By: Domenico Betancourt on 06-18-2024 Bilirubin.direct [Mass/Vol] 0.20 mg/dL High 0.03-0.18 [facility] Bilirubin.total [Mass/volume ] in Serum or PlasmaOrdered By: Domenico Betancourt on 06-18-2024 Bilirubin [Mass/Vol] 0.6 mg/dL 0.3-1.0 [place] Comment on above: Performed By: #### C BC, BMP #### [address] COVID CepheidOrdered By: Frantz Betancourt on 06-18-2024 SARS-CoV-2 (COVID-19) Ab IA Ql Negative Negative [facility] Comment on above: This is a duplicate Cepheid Xpert Xpress CoV-2/Flu/RSV Plus RNA by RT-PCR result to be used for statistical tracking purpose only. SARS-CoV-2 (COVID-19) RNA NA+probe Ql (Unsp spec) [facility] COVID-19 / Flu A/B / RSV PCR on 06-18-2024 SARS-CoV-2 (COVID-19) RNA NA+probe Ql (Unsp spec) COVID-19 Cepheid Result Negative for SARS-CoV-2 RNA by RT-PCR Flu A Cepheid Result Negative for Flu A RNA by RT-PCR Flu B Cepheid Result Negative for Flu B RNA by RT-PCR RSV Cepheid Result Negative for RSV RNA by RT-PCR COVID19 Blank Space -- Reference: Negative COVID19 Blank Space -- Cepheid Disclaimer The Cepheid Xpert Xpress CoV-2/Flu/RSV Plus has Cepheid Disclaimer not been FDA cleared or approved; this test has Cepheid Disclaimer been authorized by FDA under an EUA for use by Cepheid Disclaimer authorized laboratories; this test has been Cepheid Disclaimer authorized only for the simultaneous qualitative Cepheid Disclaimer detection and differentiation of nucleic acids from Cepheid Disclaimer SARS-CoV-2, influenza A, influenza B, and Cepheid Disclaimer respiratory syncytial virus (RSV), and not for any Cepheid Disclaimer other viruses or pathogens; and this test is only Cepheid Disclaimer authorized for the duration of the declaration that Cepheid Disclaimer circumstances exist justifying the authorization of Cepheid Disclaimer emergency use of in vitro diagnostic tests for Cepheid Disclaimer detection and/or diagnosis of COVID-19 under Cepheid Disclaimer Section 564(b)(1) of the Act, 21 U.S.C. 360bbb- Cepheid Disclaimer 3(b)(1), unless the authorization is terminated or Cepheid Disclaimer revoked sooner. PERFORMED BY: [place] [address] PATHOLOGIST CREDIT ADJUSTER CORAL GOLD M.D. Normal [facility] Comment on above: Performed By: #### C , BMP #### [address] abdomen pelvis wo conon 0 06-18-2024 CT abdomen pelvis wo con [facility] [address] CT Scan Report Signed Patient: Nirmal Chaidez MR#: [id number] 9 : 1945 Acct:[id number] Age/Sex: 78 / M ADM Date: 06/18/24 Loc: ER Room: Type: [facility] ER Attending Dr: Copies to: Domenico Betancourt DO Ordering Provider: Domenico Betancourt DO Date of Service: 06/18/24 CT/CT abdomen pelvis wo con: r/o sbo CT abdomen pelvis wo con 06/18/2024 4:27 PM SIGNS AND SYMPTOMS: Rule out small bowel obstruction, nausea, vomiting, presyncopal episode, generalized abdominal pain TECHNIQUE: Multidetector ct axial images of the abdomen and pelvis were obtained without IV contrast. Multiplanar reformats were performed and reviewed to further define anatomy and possible pathology. CT was performed with one or more of the following dose reduction techniques: Automated exposure control, adjustment of the mA and/or kV according to patient size, or use of iterative reconstruction technique. COMPARISON: 11/26/2018 FINDINGS: Lower Chest: Atherosclerotic changes are noted in the coronary arteries and thoracic aorta. ABDOMEN: Liver: Within normal limits. Bile Ducts: Normal caliber. Gallbladder: No calcified gallstones. Normal caliber wall. Pancreas: Within normal limits. Spleen: Within normal limits. Adrenals: Within normal limits. Kidneys: There is a 2 mm nonobstructing stone in the left renal collecting system. Simple cysts are noted in the renal cortices bilaterally requiring no further follow-up. Pelvis: Reproductive Organs: No pelvic masses. Ureters: Within normal limits. Bladder: Within normal limits. Bowel: Normal caliber. Mesenteric Lymph Nodes: No enlarged mesenteric lymph nodes. Peritoneum: No ascites or free air, no fluid collection. Vessels: Atherosclerotic changes are noted in the abdominal aorta. Retroperitoneum: Within normal limits. Abdominal Wall: Within normal limits. Bones: Degenerative changes are noted throughout the thoracolumbar spine. Bilateral L5 pars defects are noted with grade 1 spondylolisthesis of L5 upon S1 similar to the prior exam. CT/CT abdomen pelvis wo con IMPRESSION: No acute intra-abdominal pathology. There is a 2 mm nonobstructing stone in the left renal collecting system. Impression dictated by: Norberto Villalta M.D.06/18/2024 5:11 PM Dictation Location: [place] [address] Transcribed By: [facility] 06/18/241710 Dictated By: Norberto Villalta II, MD 06/18/241703 Signed By: 06/18/241710 Normal [facility] Calcium [Mass/volume] in Ser um or PlasmaOrdered By: Domenico Betancourt on 06-18-2024 Calcium [Mass/Vol] 9.7 mg/dL Normal 8.6-10.3 [facility] Comment on above: Performed By: #### C BC, BMP #### [address] Carbon dioxide, total [Moles /volume] in Serum or PlasmaOrdered By: Domenico Betancourt on 06-18-2024 CO2 [Moles/Vol] 25.8 mmol/L Normal 21.0-31.0 [facility] Comment on above: Performed By: #### C BC, BMP #### [address] Cepheid COVID PCR Negativeon 06-18-2024 SARS-CoV-2 (COVID-19) RNA NA+probe Ql (Unsp spec) Negative Normal Negative [facility] Comment on above: Result Comment: This is a duplicate Cepheid Xpert Xpress CoV-2/Flu/RSV Plus RNA by RT-PCR result to be used for statistical tracking purpose only. PERFORMED BY: [place] [address] PATHOLOGIST CREDIT ADJUSTER CORAL GOLD M.D. Performed By: #### C NICHOLAS, BMP #### [address] Chloride [Moles/volume] in S karla or PlasmaOrdered By: Domenico Betancourt on 06-18-2024 Chloride [Moles/Vol] 93 mmol/L Low 98-107 [place] Comment on above: Performed By: #### C NICHOLAS, BMP #### [address] Color of Urine by AutoOrdere d By: Domenico Betancourt on 06-18-2024 Color (U) Light-yellow Yellow [facility] Comment on above: Order Comment: Name Collection Type:: Clean-Voided Midstream Performed By: #### C BC, BMP #### [address] Complete Blood Count Auto Di ffon 06-18-2024 Mean Corpuscular HGB Conc 32.2 g/dL Low 32.5-35.6 [facility] Comment on above: Performed By: #### C BC, BMP #### [facility] [address] [place] [address] [place] Monocytes/100 WBC (Bld) 19.75 % Normal 0.00-20.00 [facility] Comment on above: Performed By: #### C BC, BMP #### [facility] [address] NRBC% 0.1 /100{WBC} Normal 0-0.5 [facility] Comment on above: Performed By: #### C BC, BMP #### [address] Creatinine [Mass/volume] in Serum or PlasmaOrdered By: Domenico Betancourt on 06-18-2024 Creatinine [Mass/Vol] 1.40 mg/dL High 0.70-1.30 [facility] Comment on above: Performed By: #### C BC, BMP #### [address] Dipstick and Microscopicon 0 06-18-2024 Bacteria,Urine None Seen Normal None Seen [facility] Comment on above: Order Comment: Name Collection Type:: Clean-Voided Midstream Performed By: #### C BC, BMP #### [address] Bilirubin,Urine Negative Normal Negative [facility] Comment on above: Order Comment: Name Collection Type:: Clean-Voided Midstream Performed By: #### C BC, BMP #### [address] Glucose Ql (U) Normal Normal Normal [facility] Comment on above: Order Comment: Name Collection Type:: Clean-Voided Midstream Performed By: #### C BC, BMP #### [address] Hyaline Casts,Urine 0-8 Normal 0-8 [facility] Comment on above: Order Comment: Name Collection Type:: Clean-Voided Midstream Performed By: #### C BC, BMP #### [place] [address] [place] Mucus,Urine Rare Normal [facility] Comment on above: Order Comment: Name Collection Type:: Clean-Voided Midstream Result Comment: PERF ORMED BY: [place] [address] PATHOLOGIST CREDIT ADJUSTER CORAL GOLD M.D. Performed By: #### C BC, BMP #### [place] [address] [place] Nitrite,Urine Negative Normal Negative [facility] Comment on above: Order Comment: Name Collection Type:: Clean-Voided Midstream Performed By: #### C BC, BMP #### [address] Occult Blood,Urine 2+ High Negative [facility] Comment on above: Order Comment: Name Collection Type:: Clean-Voided Midstream Result Comment: PERF ORMED BY: [place] [address] PATHOLOGIST CREDIT ADJUSTER CORAL GOLD M.D. Performed By: #### C BC, BMP #### [place] [address] [place] Protein,Urine Negative Normal Negative [facility] Comment on above: Order Comment: Name Collection Type:: Clean-Voided Midstream Performed By: #### C BC, BMP #### [place] [address] [place] RBC,Urine 20-49 High 0-4 [facility] Comment on above: Order Comment: Name Collection Type:: Clean-Voided Midstream Performed By: #### C BC, BMP #### [place] [address] [place] Specificy [place],Urine 1.014 Normal 1.00 1-1.03 0 [facility] Comment on above: Order Comment: Name Collection Type:: Clean-Voided Midstream Performed By: #### C BC, BMP #### [place] [address] [place] Squamous Epithelial Cell,Urine 1-2 Normal 0-2 [facility] Comment on above: Order Comment: Name Collection Type:: Clean-Voided Midstream Performed By: #### C BC, BMP #### [address] Urobilinogen,Urine Normal Normal Normal [facility] Comment on above: Order Comment: Name Collection Type:: Clean-Voided Midstream Performed By: #### C BC, BMP #### [address] WBC,Urine 1-2 Normal 0-4 [facility] Comment on above: Order Comment: Name Collection Type:: Clean-Voided Midstream Performed By: #### C BC, BMP #### [address] ECG 12 lead ECGon 06-18-2024 ECG 12 lead ECG [facility] [place] [address] Electrocardiograph Report Signed Patient: Nirmal Chaidez MR#: [id number] 9 : 1945 Acct:[id number] Age/Sex: 78 / M ADM Date: 06/19/24 Loc: Room: [address] [place] [address] Type: ADM IN Attending Dr: Stalin Miranda MD Ordering Provider: Domenico Betancourt DO Date of Service: 06/18/24 ECG/ECG 12 lead ECG: Nausea/Vomiting/Diarrhea Copies to: Test Reason : Blood Pressure : 105/62 mmHG Vent. Rate : 72 BPM Atrial Rate : 93 BPM P-R Int : * ms QRS Dur : 128 ms QT Int : 420 ms P-R-T Axes : * 27 -72 degrees QTcB Int : 459 ms Atrial fibrillation Right bundle branch block T wave abnormality, consider inferolateral ischemia Abnormal ECG Confirmed by RAKESH OCONNELL [facility], IMLO ([id number]) on 06/20/2024 4:29:19 PM Referred By: Electronically Signed By: MILO CAMERON MD [facility] Transcribed By: MUS Signed By Milo Cameron MD, FACC 06/20/24 1629 Normal [facility] Epithelial cells.squamous [# /area] in Urine sediment by Automated countOrdered By: Domenico Betancourt on 06-18-2024 Epithelial cells.squamous Auto (Urine sed) [#/Area] 1-2 [HPF] 0-2 [facility] Erythrocyte distribution wid th [Ratio] by Automated countOrdered By: Domenico Betancourt on 06-18-2024 Erythrocyte distribution width (RBC) [Ratio] 16.8 % High 12.0-14.8 [facility] Comment on above: Performed By: #### C BC, BMP #### [facility] [address] [place] [address] [place] Erythrocytes [#/area] in Uri ne sediment by Automated countOrdered By: Domenico Betancourt on 06-18-2024 RBC Auto (Urine sed) [#/Area] 20-49 [HPF] High 0-4 [facility] Erythrocytes [#/volume] in B lood by Automated countOrdered By: Domenico Betancourt on 06-18-2024 RBC (Bld) [#/Vol] 5.29 10*6/uL Normal 3.90-5.60 [facility] Comment on above: Performed By: #### C NICHOLAS, BMP #### [address] Glucose Poct Glucometerson 0 06-18-2024 Glucose [Mass/Vol] 119 mg/dL Normal [facility] Comment on above: Result Comment: [place] Glucose Reference Range is dependent on time and content of last meal. Glucose of more than 200 mg/dL in a nonstressed, ambulatory subject supports the diagnosis of Diabetes Mellitus. PERFORMED BY: [place] [address] PATHOLOGIST CREDIT ADJUSTER CORAL GOLD M.D. Performed By: #### C BC, BMP #### [place] [address] [place] Glucose [Mass/volume] in Ser um or PlasmaOrdered By: Domenico Betancourt on 06-18-2024 Glucose [Mass/Vol] 158 mg/dL High 70-100 [facility] Comment on above: ADA recommended refe rence rangeRandom Glucose Reference Range is dependent on time and content of last meal. Glucose of more than 200 mg/dL in a nonstressed, ambulatory subject supports the diagnosis of Diabetes Mellitus. Result Comment: [place] om Glucose Reference Range is dependent on time and content of last meal. Glucose of more than 200 mg/dL in a nonstressed, ambulatory subject supports the diagnosis of Diabetes Mellitus. ADA recommended reference range Performed By: #### C BC, BMP #### [address] Glucose [Mass/volume] in Uri ne by Test stripOrdered By: Domenico Betancourt on 06-18-2024 Glucose Test strip (U) [Mass/Vol] Normal mg/dL Normal [facility] Hematocrit [Volume Fraction] of Blood by Automated countOrdered By: Domenico Betancourt on 06-18-2024 Hematocrit (Bld) [Volume fraction] 45.6 % Normal 38.8-50.0 [facility] Comment on above: Performed By: #### C NICHOLAS, BMP #### [address] Hemoglobin Test strip Ql (U) Ordered By: Domenico Betancourt on 06-18-2024 Hemoglobin Ql (U) 2+ High Negative [facility] Hemoglobin [Mass/volume] in BloodOrdered By: Domenico Betancourt on 06-18-2024 Hemoglobin (Bld) [Mass/Vol] 14.7 g/dL Normal 13.0-17.0 [facility] Comment on above: Performed By: #### C NICHOLAS, BMP #### [address] Hepatic Panelon 06-18-2024 Albumin [Mass/Vol] 3.9 g/dL Normal 3.5-5.7 [facility] Comment on above: Performed By: #### C BC, BMP #### [address] Bilirubin,Indirect 0.4 mg/dL Normal [facility] Comment on above: Performed By: #### C BC, BMP #### [address] Bilirubin.indirect [Mass/Vol] 0.20 mg/dL High 0.03-0.18 [facility] Comment on above: Performed By: #### C NICHOLAS, BMP #### [address] Hyaline casts [#/area] in Ur ine sediment by Automated countOrdered By: Domenico Betancourt on 06-18-2024 Hyaline casts Auto (Urine sed) [#/Area] 0-8 [LPF] 0-8 [facility] Ketones [Presence] in Urine by Test stripOrdered By: Domenico Betancourt on 06-18-2024 Ketones Ql (U) Negative Negative [facility] Comment on above: Order Comment: Name Collection Type:: Clean-Voided Midstream Performed By: #### C NICHOLAS, BMP #### [facility] [address] [place] [address] Leukocyte esterase [Presence ] in Urine by Test stripOrdered By: Domenico Betancourt on 06-18-2024 Leukocyte esterase Test strip Ql (U) Negative Negative [facility] Comment on above: Order Comment: Name Collection Type:: Clean-Voided Midstream Performed By: #### C NICHOLAS, BMP #### [facility] [address] [place] [address] [place] Leukocytes [#/area] in Urine sediment by Automated countOrdered By: Domenico Betancourt on 06-18-2024 WBC Auto (Urine sed) [#/Area] 1-2 [HPF] 0-4 [facility] Leukocytes [#/volume] correc faraz for nucleated erythrocytes in Blood by Automated counOrdered By: Domenico Betancourt on 06-18-2024 WBC corrected for nucl RBC Auto (Bld) [#/Vol] 11.6 10*3/uL High 4.1-10.5 [facility] Leukocytes [#/volume] in Blo od by Automated countOrdered By: Domenico Betancourt on 06-18-2024 WBC (Bld) [#/Vol] 11.6 10*3/uL High 4.1-10.5 [facility] Comment on above: Performed By: #### C NICHOLAS, BMP #### [address] Lipase [Enzymatic activity/v olume] in Serum or PlasmaOrdered By: Domenico Betancourt on 06-18-2024 Lipase [Catalytic activity/Vol] 18.0 U/L 11.0-82.0 [facility] Comment on above: Result Comment: PERF ORMED BY: [place] [address] PATHOLOGIST CREDIT ADJUSTER CORAL GOLD M.D. Performed By: #### C BC, BMP #### [address] Lymphocytes [#/volume] in Bl ood by Automated countOrdered By: Domenico Betancourt on 06-18-2024 Lymphocytes (Bld) [#/Vol] 2.2 10*3/uL Normal 1.00-4.8 [facility] Comment on above: Performed By: #### C BC, BMP #### [address] Lymphocytes/100 leukocytes i n Blood by Automated countOrdered By: Domenico Betancourt on 06-18-2024 Lymphocytes/100 WBC (Bld) 18.8 % Normal . [facility] Comment on above: Performed By: #### C BC, BMP #### [address] MCH [Entitic mass] by Automa faraz countOrdered By: Domenico Betancourt on 06-18-2024 MCH (RBC) [Entitic mass] 27.8 pg Normal 27.5-35.2 [facility] Comment on above: Performed By: #### C BC, BMP #### [address] MCHC Auto (RBC) [Mass/Vol]Or dered By: Domenico Betancourt on 06-18-2024 MCHC (RBC) [Mass/Vol] 32.2 g/dL Low 32.5-35.6 [facility] MCV [Entitic volume] by Auto mated countOrdered By: Domenico Betancourt on 06-18-2024 MCV (RBC) [Entitic vol] 86.2 fL Normal 83.5-101 F [facility] Comment on above: Performed By: #### C NICHOLAS, BMP #### [address] Monocyte distribution width [Entitic volume] in Blood by AutomatedOrdered By: Domenico Betancourt on 06-18-2024 Monocyte distribution width Auto (Bld) [Entitic vol] 19.75 % 0.00-20.00 [facility] Mucus [Presence] in Urine by AutomatedOrdered By: Domenico Betancourt on 06-18-2024 Mucus Auto Ql (U) Rare [LPF] [facility] Neutrophils [#/volume] in Bl ood by Automated countOrdered By: Domenico Betancourt on 06-18-2024 Neutrophils (Bld) [#/Vol] 8.6 10*3/uL High 1.8-7.7 [facility] Comment on above: Performed By: #### C NICHOLAS, BMP #### [address] Nitrite Test strip Ql (U)Ord ered By: Domenico Betancorut on 06-18-2024 Nitrite Ql (U) Negative Negative [facility] No Panel InformationOrdered By: Domenico Betancourt on 06-18-2024 Estimated GFR (CKD-EPI) 51.445 mL/Min [facility] Creatinine Clearance (Chem 59.12 [facility] Nucleated erythrocytes [Pres ence] in Blood by Automated countOrdered By: Domenico Betancourt on 06-18-2024 Nucleated RBC Auto Ql (Bld) 0.1 /100{WBC} 0-0.5 [facility] Platelet mean volume [Entiti c volume] in Blood by Automated countOrdered By: Domenico Betancourt on 06-18-2024 Platelet mean volume (Bld) [Entitic vol] 8.1 fL Normal 6.6-10.1 [facility] Comment on above: Performed By: #### C NICHOLAS, BMP #### [address] Platelets [#/volume] in Bloo d by Automated countOrdered By: Domenico Betancourt on 06-18-2024 Platelets (Bld) [#/Vol] 255 10*3/uL Normal 150-450 [facility] Comment on above: Performed By: #### C BC, BMP #### [address] Potassium [Moles/volume] in Serum or PlasmaOrdered By: Domenico Mcclurearthy on 06-18-2024 Potassium [Moles/Vol] 4.3 mmol/L Normal 3.5-5.1 [facility] Comment on above: Performed By: #### C NICHOLAS, BMP #### [address] Protein Test strip (U) [Mass /Vol]Ordered By: Domenico Betancourt on 06-18-2024 Protein (U) [Mass/Vol] Negative Negative [facility] Protein [Mass/volume] in Ser um or PlasmaOrdered By: Domenico Serafin on 06-18-2024 Protein [Mass/Vol] 7.4 g/dL 6.4-8.9 [facility] Comment on above: Performed By: #### C BC, BMP #### [address] Prothrombin Time INRon 06-18 INR Coag (PPP) [Relative time] 2.5 {INR} Normal [facility] Comment on above: Result Comment: INR Therapeutic [...] heart valves: 3 - 4.5 PERFORMED BY: [place] [address] PATHOLOGIST CREDIT ADJUSTER CORAL GOLD M.D. Performed By: #### C BC, BMP #### [address] PT Coag (PPP) [Time] 28.6 s High 9.0-12.9 [facility] Comment on above: Result Comment: A he matocrit value greater than 55% may lead to inaccurate results in coagulation testing. Patients having hematocrit values >55% require a special collection tube for coagulation studies. Please contact the laboratory at [phone] for redraw instructions. Performed By: #### C NICHOLAS, BMP #### [address] Serum globulin measurement b y calculation (mass/volume)Ordered By: Domenico Betancourt on 06-18-2024 Globulin (S) [Mass/Vol] 3.5 g/dL [facility] Comment on above: Performed By: #### C NICHOLAS, BMP #### [address] Serum or plasma albumin/glob ulin mass ratioOrdered By: Domenico Betancourt on 06-18-2024 Albumin/Globulin [Mass ratio] 1.1 {ratio} [facility] Comment on above: Performed By: #### C NICHOLAS, BMP #### [address] Serum or plasma anion gap de terminationOrdered By: Domenico Betancourt on 06-18-2024 Anion gap [Moles/Vol] 15.5 mmol/L High 6.0-15.0 [facility] Comment on above: Performed By: #### C NICHOLAS, BMP #### [address] Serum or plasma non-glucuron idated bilirubin measurement (mass/volume)Ordered By: Domenico Betancourt on 06-18-2024 Bilirubin.indirect [Mass/Vol] 0.4 mg/dL [facility] Sodium [Moles/volume] in Ser um or PlasmaOrdered By: Domenico Betancourt on 06-18-2024 Sodium [Moles/Vol] 130 mmol/L Low 136-145 [facility] Comment on above: Performed By: #### C NICHOLAS, BMP #### [address] [address] [place] Specific gravity Test strip (U) [Rel density]Ordered By: Domenico Betancourt on 06-18-2024 Specific gravity (U) [Rel density] 1.014 1.001-1.03 0 [facility] Troponin I High Sensitivityo n 06-18-2024 Troponin I High Sensitivity 20.8 pg/mL High 0.0-20.0 [facility] Comment on above: Result Comment: PERF ORMED BY: [place] [address] PATHOLOGIST CREDIT ADJUSTER CORAL GOLD M.D. Performed By: #### C BC, BMP #### [address] Troponin I High Sensitivity 20.7 pg/mL High 0.0-20.0 [facility] Comment on above: Result Comment: PERF ORMED BY: [place] [address] PATHOLOGIST CREDIT ADJUSTER CORAL GOLD M.D. Performed By: #### C BC, BMP #### [address] Troponin I.cardiac [Mass/vol ume] in Serum or Plasma by Detection limit <= 0.01 ng/Ordered By: Domenico Betancourt on 06-18-2024 Troponin I.cardiac DL <= 0.01 ng/mL [Mass/Vol] 20.8 pg/mL High 0.0-20.0 [facility] Urea nitrogen [Mass/volume] in Serum or PlasmaOrdered By: Domenico Betancourt on 06-18-2024 Urea nitrogen [Mass/Vol] 41 mg/dL High 7-25 [facility] Comment on above: Performed By: #### C BC, BMP #### [address] Urine appearanceOrdered By: Domenico Betancourt on 06-18-2024 Appearance (U) Clear Clear [facility] Comment on above: Order Comment: Name Collection Type:: Clean-Voided Midstream Performed By: #### C BC, BMP #### [facility] [address] [place] [address] [facility] Urobilinogen Test strip (U) [Mass/Vol]Ordered By: Domenico Betancourt on 06-18-2024 Urobilinogen (U) [Mass/Vol] Normal mg/dL Normal [facility] XR chest 1V portableon 06-18 XR chest 1V portable [facility] [place] [address] [place] [id number] XRay Report Signed Patient: Nirmal Chaidez MR#: [id number] 9 : 1945 Acct:[id number] Age/Sex: 78 / M ADM Date: 06/18/24 Loc: ER Room: Type: PRE ER Attending Dr: Copies to: Domenico Betancourt DO Ordering Provider: Domenico Betancourt DO Date of Service: 06/18/24 XR/XR chest 1V portable: Nausea/Vomiting/Diarrhea XR chest 1V portable 06/18/2024 4:23 PM SIGNS AND SYMPTOMS: Fall, nausea and vomiting PROTOCOL: Frontal radiograph of the chest COMPARISON: 08/24/2022 FINDINGS: The trachea is midline. There is a single lead AICD on the left. Atherosclerotic changes are present in the aortic arch. The heart and mediastinal structures are within normal limits. The lung parenchyma is clear. The bony thorax is intact. Similar postoperative changes are noted in the left shoulder. XR/XR chest 1V portable IMPRESSION: No acute cardiopulmonary pathology. Impression dictated by: Norberto Villalta M.D.06/18/2024 4:24 PM Dictation Location: [place] [address] Transcribed By: [facility] 06/18/24 1623 Dictated By: Norberto Villalta II, MD 06/18/24 162 Signed By: 06/18/24 162 Normal [facility] pH of Urine by Test stripOrd ered By: Domenico Betancourt on 06-18-2024 pH (U) 5.5 [pH] 5.0-9.0 [facility] Comment on above: Order Comment: Name Collection Type:: Clean-Voided Midstream Performed By: #### C BC, BMP #### [address] Lab Reportson 04-25-2024 Lab Reports [id number]#1.00TIFF Normal [facility] RAD - MISCon 04-25-2024 RAD - MISC [id number]#1.00TIFF Normal [facility] Alanine aminotransferase [En zymatic activity/volume] in Serum or PlasmaOrdered By: Marva Soriano on 04-23-2024 ALT [Catalytic activity/Vol] 8 U/L Normal 7-52 [facility] Comment on above: Performed By: #### C NICHOLAS, BMP #### [address] Albumin [Mass/volume] in Ser um or Plasma by Bromocresol green (BCG) dye binding methoOrdered By: Marva Soriano on 04-23-2024 Albumin BCG dye [Mass/Vol] 3.7 g/dL 3.5-5.7 [facility] Alkaline phosphatase [Enzyma tic activity/volume] in Serum or PlasmaOrdered By: Marva Soriano on 04-23-2024 ALP [Catalytic activity/Vol] 79 U/L Normal 34-104 [facility] Comment on above: Result Comment: PERF ORMED BY: [place] [address] PATHOLOGIST CREDIT ADJUSTER CORAL GOLD M.D. Performed By: #### C BC, BMP #### [address] Aspartate aminotransferase [ Enzymatic activity/volume] in Serum or PlasmaOrdered By: Marva Soriano on 04-23-2024 AST [Catalytic activity/Vol] 11 U/L Low 13-39 [facility] Comment on above: Performed By: #### C BC, BMP #### [address] BNP ser/plasOrdered By: Jeremías Soriano on 04-23-2024 Natriuretic peptide B (Bld) [Mass/Vol] 38.0 pg/mL Normal 5-100 [facility] Comment on above: Result Comment: PERF ORMED BY: [place] [address] PATHOLOGIST CREDIT ADJUSTER CORAL GOLD M.D. Performed By: #### C BC, BMP #### [address] Bilirubin.total [Mass/volume ] in Serum or PlasmaOrdered By: Marva Soriano on 04-23-2024 Bilirubin [Mass/Vol] 0.5 mg/dL Normal 0.3-1.0 [place] Comment on above: Performed By: #### C BC, BMP #### [address] Calcium [Mass/volume] in Ser um or PlasmaOrdered By: Marva Soriano on 04-23-2024 Calcium [Mass/Vol] 9.4 mg/dL Normal 8.6-10.3 [facility] Comment on above: Performed By: #### C BC, BMP #### [address] Carbon dioxide, total [Moles /volume] in Serum or PlasmaOrdered By: Marva Soriano on 04-23-2024 CO2 [Moles/Vol] 28.4 mmol/L Normal 21.0-31.0 [facility] Comment on above: Performed By: #### C BC, BMP #### [facility] [address] [place] [address] [place] Chloride [Moles/volume] in S karla or PlasmaOrdered By: Marva Soriano on 04-23-2024 Chloride [Moles/Vol] 97 mmol/L Low 98-107 [place] Comment on above: Performed By: #### C BC, BMP #### [address] Comprehensive Metabolic Pane estrella 04-23-2024 Albumin [Mass/Vol] 3.7 g/dL Normal 3.5-5.7 [facility] Comment on above: Performed By: #### C BC, BMP #### [facility] [address] GFR/1.73 sq M.predicted MDRD (S/P/Bld) [Vol rate/Area] 52.342 mL/min/{1.73_m2} Normal [facility] Comment on above: Performed By: #### C BC, BMP #### [facility] [address] Creatinine [Mass/volume] in Serum or PlasmaOrdered By: Marva Soriano on 04-23-2024 Creatinine [Mass/Vol] 1.38 mg/dL High 0.70-1.30 [facility] Comment on above: Performed By: #### C BC, BMP #### [address] Glucose [Mass/volume] in Ser um or PlasmaOrdered By: Marva Soriano on 04-23-2024 Glucose [Mass/Vol] 226 mg/dL High 70-100 [facility] Comment on above: ADA recommended refe rence rangeRandom Glucose Reference Range is dependent on time and content of last meal. Glucose of more than 200 mg/dL in a nonstressed, ambulatory subject supports the diagnosis of Diabetes Mellitus. Result Comment: [place] om Glucose Reference Range is dependent on time and content of last meal. Glucose of more than 200 mg/dL in a nonstressed, ambulatory subject supports the diagnosis of Diabetes Mellitus. ADA recommended reference range Performed By: #### C BC, BMP #### [address] No Panel InformationOrdered By: Marva Soriano on 04-23-2024 Estimated GFR (CKD-EPI) 52.342 mL/Min [facility] Creatinine Clearance (Chem N/A [facility] Potassium [Moles/volume] in Serum or PlasmaOrdered By: Marva Soriano on 04-23-2024 Potassium [Moles/Vol] 3.9 mmol/L Normal 3.5-5.1 [facility] Comment on above: Performed By: #### C BC, BMP #### [place] [address] [place] Protein [Mass/volume] in Ser um or PlasmaOrdered By: Marva Soriano on 04-23-2024 Protein [Mass/Vol] 7.1 g/dL Normal 6.4-8.9 [facility] Comment on above: Performed By: #### C BC, BMP #### [address] Serum globulin measurement b y calculation (mass/volume)Ordered By: Marva Soriano on 04-23-2024 Globulin (S) [Mass/Vol] 3.4 g/dL Normal F [facility] Comment on above: Performed By: #### C BC, BMP #### [address] Serum or plasma albumin/glob ulin mass ratioOrdered By: Marva Soriano on Albumin/Globulin [Mass ratio] 1.1 {ratio} Normal [facility] Comment on above: Performed By: #### C BC, BMP #### [address] Serum or plasma anion gap de terminationOrdered By: Marva Soriano on 04-23-2024 Anion gap [Moles/Vol] 13.5 mmol/L Normal 6.0-15.0 [facility] Comment on above: Performed By: #### C BC, BMP #### [address] Sodium [Moles/volume] in Ser um or PlasmaOrdered By: Marva Soriano on 04-23-2024 Sodium [Moles/Vol] 135 mmol/L Low 136-145 [facility] Comment on above: Performed By: #### C BC, BMP #### [address] Urea nitrogen [Mass/volume] in Serum or PlasmaOrdered By: Marva Soriano on 04-23-2024 Urea nitrogen [Mass/Vol] 42 mg/dL High 7-25 [facility] Comment on above: Performed By: #### C BC, BMP #### [address] XR abdomen 1Von 04-23-2024 XR abdomen 1V [facility] [place] [address] [place] [address] XRay Report Signed Patient: Nirmal Chaidez MR#: [id number] 9 : 1945 Acct:[id number] Age/Sex: 78 / M ADM Date: 04/23/24 Loc: XD Room: Type: [facility] Attending Dr: Marva VALADEZ Copies to: ALLYSON Amaro Ordering Provider: ALLYSON Amaro Date of Service: 04/23/24 XR/XR abdomen 1V: N20.0, I10 SINGLE VIEW ABDOMEN COMPARISON: None CLINICAL DATA: Follow-up kidney stones. Supine views of the abdomen and pelvis were obtained. Evaluation is slightly limited by body habitus. There is some air and stool within the colon. There is air within the stomach. No dilated small bowel is seen. The right kidney is partially obscured. There is question of a tiny calcification overlying the inferior right kidney. There is however stool at this site. A punctate calcified stone at the lower pole on the left is also not excluded. No suspect ureteral or bladder stones. No soft tissue masses are seen. There are degenerative changes at the spine and hips. XR/XR abdomen 1V IMPRESSION: POSSIBLE TINY BILATERAL RENAL STONES. Impression dictated by: Ping Vora M.D.04/23/2024 5:03 PM Dictation Location: [place] [address] Transcribed By: [facility] 04/23/241702 Dictated By: Ping Vora MD 04/23/24 170 Signed By: 04/23/24 1703 Normal [facility] Consent for Treatmenton Consent for Treatment [id number] Normal [facility] Provider Letteron 12-29-2023 Provider Letter (Inserted Image. Cassi ble to display) December 29, 2023 NIRMAL CHAIDEZ [address] [place] [phone] : 1945 Dear Nirmal , We have been trying to reach you with no success. You have an appointment with Dr. Carlos Alberto Gibson on 01/23/24 which will need to be rescheduled since he will be out of the office that day. Please contact the office at the number listed below to get this appointment rescheduled at your earliest convenience. Thank you for your prompt attention to this matter. Sincerely, [facility] [address], [place] [address] Normal [facility] Consent for Treatmenton 11-0 Consent for Treatment [id number] Normal [facility] Activated partial thrombopla stin time (aPTT) in platelet poor plasma by coagulation aOrdered By: Ran Addison on 05-14-2023 aPTT Coag (PPP) [Time] 33.4 s 25.1-36.5 [facility] Alanine aminotransferase [En zymatic activity/volume] in Serum or PlasmaOrdered By: Ran Addison on 05-14-2023 ALT [Catalytic activity/Vol] 8 U/L 7-52 [facility] Albumin [Mass/volume] in Ser um or Plasma by Bromocresol green (BCG) dye binding methoOrdered By: Ran Addison on 05-14-2023 Albumin BCG dye [Mass/Vol] 3.6 g/dL 3.5-5.7 [facility] Alkaline phosphatase [Enzyma tic activity/volume] in Serum or PlasmaOrdered By: Ran Addison on 05-14-2023 ALP [Catalytic activity/Vol] 87 U/L 34-104 [facility] Aspartate aminotransferase [ Enzymatic activity/volume] in Serum or PlasmaOrdered By: Ran Addison on 05-14-2023 AST [Catalytic activity/Vol] 13 U/L 13-39 [facility] Basophils Auto (Bld) [#/Vol] Ordered By: Ran Addison on 05-14-2023 Basophils (Bld) [#/Vol] 0.1 10*3/uL 0.0-0.2 [facility] Basophils/100 WBC Auto (Bld) Ordered By: Ran Addison on 05-14-2023 Basophils/100 WBC (Bld) 0.5 % . F [facility] Bilirubin.total [Mass/volume ] in Serum or PlasmaOrdered By: Ran Addison on 05-14-2023 Bilirubin [Mass/Vol] 0.6 mg/dL 0.3-1.0 [place] Calcium [Mass/volume] in Ser um or PlasmaOrdered By: Ran Addison on 05-14-2023 Calcium [Mass/Vol] 8.8 mg/dL 8.6-10.3 [facility] Carbon dioxide, total [Moles /volume] in Serum or PlasmaOrdered By: Ran Addison on 05-14-2023 CO2 [Moles/Vol] 25.7 mmol/L 21.0-31.0 [facility] Chloride [Moles/volume] in S karla or PlasmaOrdered By: Ran Addison on 05-14-2023 Chloride [Moles/Vol] 99 mmol/L 98-107 [place] Creatinine [Mass/volume] in Serum or PlasmaOrdered By: Ran Addison on 05-14-2023 Creatinine [Mass/Vol] 1.70 mg/dL 0.70-1.30 [facility] Eosinophils Auto (Bld) [#/Vo l]Ordered By: Ran Addison on 05-14-2023 Eosinophils (Bld) [#/Vol] 0.2 10*3/uL 0.0-0.45 [facility] Eosinophils/100 WBC Auto (Bl d)Ordered By: Ran Addison on 05-14-2023 Eosinophils/100 WBC (Bld) 1.7 % . [facility] Erythrocyte distribution wid th Auto (RBC) [Ratio]Ordered By: Ran Addison on 05-14-2023 Erythrocyte distribution width (RBC) [Ratio] 15.7 % 12.0-14.8 [facility] Ethanol [Mass/volume] in Ser um or PlasmaOrdered By: Ran Addison on 05-14-2023 Ethanol [Mass/Vol] mg/dL [facility] Ethanol [Mass/Vol] TNP [facility] Comment on above: Test not performed Globulin Calc (S) [Mass/Vol] Ordered By: Ran Addison on 05-14-2023 Globulin (S) [Mass/Vol] 3.2 g/dL F [facility] Glucose Glucometer (BldC) [M ass/Vol]Ordered By: Ran Addison on 05-14-2023 Glucose [Mass/Vol] 175 mg/dL [facility] Comment on above: Random Glucose Refer ence Range is dependent on time and content of last meal. Glucose of more than 200 mg/dL in a nonstressed, ambulatory subject supports the diagnosis of Diabetes Mellitus. Glucose [Mass/volume] in Ser um or PlasmaOrdered By: Ran Addison on 05-14-2023 Glucose [Mass/Vol] 156 mg/dL 70-100 [facility] Comment on above: ADA recommended refe rence rangeRandom Glucose Reference Range is dependent on time and content of last meal. Glucose of more than 200 mg/dL in a nonstressed, ambulatory subject supports the diagnosis of Diabetes Mellitus. Hematocrit Auto (Bld) [Volum e fraction]Ordered By: Ran Addison on 05-14-2023 Hematocrit (Bld) [Volume fraction] 40.1 % 38.8-50.0 [facility] Hemoglobin [Mass/volume] in BloodOrdered By: Ran Addison on 05-14-2023 Hemoglobin (Bld) [Mass/Vol] 13.0 g/dL 13.0-17.0 [facility] Laboratory - CoagulationOrde red By: Ran Addison on 05-14-2023 PT Coag (PPP) [Time] 26.6 s 9.0-12.9 [place] Leukocytes [#/volume] correc faraz for nucleated erythrocytes in Blood by Automated counOrdered By: Ran Addison on 05-14-2023 WBC corrected for nucl RBC Auto (Bld) [#/Vol] 10.5 10*3/uL 4.1-10.5 [facility] Lymphocytes Auto (Bld) [#/Vo l]Ordered By: Ran Addison on 05-14-2023 Lymphocytes (Bld) [#/Vol] 1.6 10*3/uL 1.00-4.8 [facility] Lymphocytes/100 WBC Auto (Bl d)Ordered By: Ran Addison on 05-14-2023 Lymphocytes/100 WBC (Bld) 15.6 % . [facility] MCH Auto (RBC) [Entitic mass ]Ordered By: Ran Addison on 05-14-2023 MCH (RBC) [Entitic mass] 29.8 pg 27.5-35.2 [facility] MCHC Auto (RBC) [Mass/Vol]Or dered By: Ran Addison on 05-14-2023 MCHC (RBC) [Mass/Vol] 32.5 g/dL 32.5-35.6 Fir [facility] MCV Auto (RBC) [Entitic vol] Ordered By: Ran Addison on 05-14-2023 MCV (RBC) [Entitic vol] 91.8 fL 83.5-101 F [facility] Monocyte distribution width [Entitic volume] in Blood by AutomatedOrdered By: Ran Addison on 05-14-2023 Monocyte distribution width Auto (Bld) [Entitic vol] 24.22 % 0.00-20.00 [facility] Comment on above: For adults in ED, MD W > 20.0 may be associated with a higher risk of sepsis during the first 12 hrs of hospital admission Monocytes Auto (Bld) [#/Vol] Ordered By: Ran Addison on 05-14-2023 Monocytes (Bld) [#/Vol] 0.4 10*3/uL 0.0-0.8 [facility] Monocytes/100 WBC Auto (Bld) Ordered By: Ran Addison on 05-14-2023 Monocytes/100 WBC (Bld) 4.0 % . F [facility] Neutrophils Auto (Bld) [#/Vo l]Ordered By: Ran Addison on 05-14-2023 Neutrophils (Bld) [#/Vol] 8.2 10*3/uL 1.8-7.7 [facility] Neutrophils/100 WBC Auto (Bl d)Ordered By: Ran Addison on 05-14-2023 Neutrophils/100 WBC (Bld) 78.2 % . [facility] No Panel InformationOrdered By: Ran Addison on 05-14-2023 Estimated GFR (CKD-EPI) 41.007 mL/Min [facility] Creatinine Clearance (Chem 50.02 [facility] Nucleated erythrocytes [Pres ence] in Blood by Automated countOrdered By: Ran Addison on 05-14-2023 Nucleated RBC Auto Ql (Bld) 0.1 /100{WBC} 0-0.5 [facility] Platelet mean volume Auto (B ld) [Entitic vol]Ordered By: Ran Addison on 05-14-2023 Platelet mean volume (Bld) [Entitic vol] 7.6 fL 6.6-10.1 [facility] Platelet poor plasma interna tional normalized ratio (INR) by coagulation assay (relatOrdered By: Ran Addison on 05-14-2023 INR Coag (PPP) [Relative time] 2.3 {INR} [facility] Comment on above: INR Therapeutic Rang e [...] Platelets Auto (Bld) [#/Vol] Ordered By: Ran Addison on 05-14-2023 Platelets (Bld) [#/Vol] 225 10*3/uL 150-450 [facility] Potassium [Moles/volume] in Serum or PlasmaOrdered By: Ran Addison on 05-14-2023 Potassium [Moles/Vol] 3.7 mmol/L 3.5-5.1 [facility] Protein [Mass/volume] in Ser um or PlasmaOrdered By: Ran Addisno on 05-14-2023 Protein [Mass/Vol] 6.8 g/dL 6.4-8.9 [facility] RBC Auto (Bld) [#/Vol]Ordere d By: Ran Addison on 05-14-2023 RBC (Bld) [#/Vol] 4.36 10*6/uL 3.90-5.60 [facility] Serum or plasma albumin/glob ulin mass ratioOrdered By: Ran Addison on 05-14-2023 Albumin/Globulin [Mass ratio] 1.1 {ratio} [facility] Serum or plasma anion gap de terminationOrdered By: Ran Addison on 05-14-2023 Anion gap [Moles/Vol] 14.0 mmol/L 6.0-15.0 [facility] Sodium [Moles/volume] in Ser um or PlasmaOrdered By: Ran Addison on 05-14-2023 Sodium [Moles/Vol] 135 mmol/L 136-145 [facility] Troponin I.cardiac [Mass/vol ume] in Serum or Plasma by Detection limit <= 0.01 ng/Ordered By: Ran Addison on 05-14-2023 Troponin I.cardiac DL <= 0.01 ng/mL [Mass/Vol] 18.4 pg/mL 0.0-20.0 [facility] Urea nitrogen [Mass/volume] in Serum or PlasmaOrdered By: Ran Addison on 05-14-2023 Urea nitrogen [Mass/Vol] 38 mg/dL 06-14 [facility] WBC Auto (Bld) [#/Vol]Ordere d By: Ran Addison on 05-14-2023 WBC (Bld) [#/Vol] 10.5 10*3/uL 4.1-10.5 [facility] Tobacco Screening.on 023 Adult depression screening assessment No [facility] [employer] 250 DO Work Phone: Fall risk assessment a) No falls within the last year [facility] [employer] 250 DO Work Phone: Tobacco use status [facility] b) No [facility] [employer] 250 DO Work Phone: GLYCOHEMOGLOBIN A1Con 2022 ADA RECOMMENDATION SEE BELOW Normal [facility] Comment on above: Result Comment: ADA RECOMMENDED LIMIT 4.0 - 6.0 ADA THERAPEUTIC TARGET < 7.0 ACTION SUGGESTED > 7.0 Performed By: #### A 1C #### [facility] [address] [place] [address] Dr. Cuco Gilliam Glucose [Mass/Vol] 177 mg/dL Normal [facility] Comment on above: Performed By: #### A 1C #### [facility] [address] [address] [address] Cuco Gilliam HbA1c (Bld) [Mass fraction] 7.8 % Critically high 4.5-6.2 [facility] Comment on above: Performed By: #### A 1C #### [facility] [address] [place] [address] Dr. Cuco Gilliam CBC AUTO DIFFon 10-28-2022 BASO # 0.0 103/ul Normal 0.0-0.1 [facility] Comment on above: Performed By: #### C BC #### [facility] [address] [place] [address] Dr. Cuco Gilliam Basophils/100 WBC (Bld) 0.4 % Normal 0.2-2.0 [facility] Comment on above: Performed By: #### C BC #### [facility] [address] [place] [address] Dr. Cuco Gilliam EO # 0.1 103/ul Normal 0.0-0.7 [facility] Comment on above: Performed By: #### C BC #### [facility] [address] [place] [address] Dr. Cuco Gilliam Eosinophils/100 WBC (Bld) 0.9 % Normal 0.9-7.0 [facility] Comment on above: Performed By: #### C BC #### [facility] [address] [place] [address] Dr. Cuco Gilliam Erythrocyte distribution width (RBC) [Ratio] 15.9 % Critically high 11.0-15.0 [facility] Comment on above: Performed By: #### C BC #### [facility] [address] [place] [address] Dr. Cuco Gilliam Hematocrit (Bld) [Volume fraction] 47.8 % Normal 42.0-54.0 [facility] Comment on above: Performed By: #### C BC #### [facility] [address] [place] [address] Dr. Cuco Gilliam Hemoglobin (Bld) [Mass/Vol] 14.9 g/dL Normal 14.0-18.0 [facility] Comment on above: Performed By: #### C BC #### [facility] [address] [place] [address] Dr. Cuco Gilliam IG # 0.05 10e3/ul Critically high 0.00-0.03 [facility] Comment on above: Performed By: #### C BC #### [facility] [address] [place] [address] Dr. Cuco Gilliam IG % 0.5 % Normal 0.0-0.5 [facility] Comment on above: Performed By: #### C BC #### [facility] [address] [place] [address] Dr. Cuco Gilliam LYMPH # 1.8 103/ul Normal 1.2-3.8 [facility] Comment on above: Performed By: #### C BC #### [facility] [address] [place] [address] Dr. Cuco Gilliam Lymphocytes/100 WBC (Bld) 17.3 % Critically low 20.5-60.0 [facility] Comment on above: Performed By: #### C BC #### [facility] [address] [place] [address] Dr. Cuco Gilliam MANUAL DIFF REQ NO Normal [facility] Comment on above: Performed By: #### C BC #### [facility] [address] [place] [address] Dr. Cuco Gilliam MCH (RBC) [Entitic mass] 28.4 pg Normal 25.9-34.0 [facility] Comment on above: Performed By: #### C BC #### [facility] [address] [place] [address] Dr. Cuco Gilliam MCHC (RBC) [Mass/Vol] 31.2 g/dL Normal 29.9-35.2 [facility] Comment on above: Performed By: #### C BC #### [facility] [address] [place] [address] Dr. Cuco Gilliam MCV (RBC) [Entitic vol] 91.2 fL Normal 80.0-94.0 [facility] Comment on above: Performed By: #### C BC #### [facility] [address] [place] [address] Dr. Cuco Gilliam MONO # 0.7 103/ul Normal 0.3-0.8 [facility] Comment on above: Performed By: #### C BC #### [facility] [address] [place] [address] Dr. Cuco Gilliam Monocytes/100 WBC (Bld) 6.8 % Normal 1.7-12.0 T [facility] Comment on above: Performed By: #### C BC #### [facility] [address] [place] [address] Dr. Cuco Gilliam NEUT # 7.7 103/ul Critically high 1.4-6.5 [facility] Comment on above: Performed By: #### C BC #### [facility] [address] [place] [address] Dr. Cuco Gilliam Neutrophils/100 WBC (Bld) 74.1 % Normal 43.0-75.0 [facility] Comment on above: Performed By: #### C BC #### [facility] [address] [place] [address] Dr. Cuco Gilliam Platelet mean volume (Bld) [Entitic vol] 9.1 fL Critically low 9.5-13.5 [facility] Comment on above: Performed By: #### C BC #### [facility] [address] [place] [address] Dr. Cuco Gilliam PLT 218 103/ul Normal 150-450 [facility] Comment on above: Performed By: #### C BC #### [facility] [address] [place] [address] Dr. Cuco Gilliam RBC 5.24 106/ul Normal 4.70-6.10 [facility] Comment on above: Performed By: #### C BC #### [facility] [address] [place] [address] Dr. Cuco Gilliam WBC 10.4 103/ul Normal 4.0-11.0 [facility] Comment on above: Performed By: #### C BC #### [facility] [address] [place] [address] Dr. Cuco Gilliam LIPID PROFILEon 10-28-2022 CHOL-HDL RATIO NORM SEE BELOW Normal [facility] Comment on above: Result Comment: 3.3 - 4.4 LOW RISK 4.4 - 7.1 AVERAGE RISK 7.1 - 11.0 MODERATE RISK >11.0 HIGH RISK Performed By: #### B MP, LIPID #### [facility] [address] [place] [address] Dr. Cuco Gilliam Cholesterol [Mass/Vol] 142 mg/dL Normal <=200 Th [facility] Comment on above: Performed By: #### B MP, LIPID #### [facility] [address] [address] [address] Cuco Gilliam Cholesterol in HDL [Mass/Vol] 59 mg/dL Normal 40-60 [facility] Comment on above: Performed By: #### B MP, LIPID #### [facility] [address] [place] [address] Dr. Cuco Gilliam Cholesterol in LDL [Mass/Vol] 69.4 mg/dL Normal [facility] Comment on above: Performed By: #### B MP, LIPID #### [facility] [address] [place] [address] Dr. Cuco Gilliam Cholesterol.total/Amirah sterol in HDL [Mass ratio] 2.4 {ratio} Normal [facility] Comment on above: Performed By: #### B MP, LIPID #### [facility] [address] [place] [address] Dr. Cuco Gilliam HDL NORMAL > or = 60 mg/dl - LO W CARDIOVASCULAR RISK <40 mg/dl - HIGH CARDIOVASCULAR RISK Normal [facility] Comment on above: Performed By: #### B MP, LIPID #### [facility] [address] [place] [address] Dr. Cuco Gilliam LDL CALC NORMAL SEE BELOW Normal [facility] Comment on above: Result Comment: <100 mg/dl OPTIMAL 100 - 129 mg/dl NEAR OR ABOVE OPTIMAL 130 - 159 mg/dl BORDERLINE HIGH 160 - 189 mg/dl HIGH >190 mg/dl VERY HIGH Performed By: #### B MP, LIPID #### [facility] [address] [place] [address] Dr. Cuco Gilliam Triglyceride [Mass/Vol] 68 mg/dL Normal <=150 T [facility] Comment on above: Performed By: #### B MP, LIPID #### [facility] [address] [address] [address] Cuco Gilliam VLDL CALC 13.6 mg/dL Normal [facility] Comment on above: Performed By: #### B MP, LIPID #### [facility] [address] [place] [address] Dr. Cuco Gilliam MICROALBUMIN, RAND URon 12-0 mALB 9.0 mg/L Normal <=30.0 [facility] Comment on above: Performed By: #### M ALBR #### [facility] [address] [place] [address] Dr. Cuco Gilliam PROF CHEM 8 (BAS METB)on Anion gap [Moles/Vol] 8.2 mmol/L Normal [facility] Comment on above: Performed By: #### B MP, LIPID #### [facility] [address] [place] [address] Dr. Cuco Gilliam Calcium [Mass/Vol] 9.2 mg/dL Normal 8.5-10.1 [facility] Comment on above: Performed By: #### B MP, LIPID #### [facility] [address] [place] [address] Dr. Cuco Gilliam Chloride [Moles/Vol] 101 mmol/L Normal 98-107 [facility] Comment on above: Performed By: #### B MP, LIPID #### [facility] [address] [place] [address] Dr. Cuco Gilliam CO2 [Moles/Vol] 34.8 mmol/L Critically high 21.0-32.0 [facility] Comment on above: Performed By: #### B MP, LIPID #### [facility] [address] [place] [address] Dr. Cuco Gilliam Creatinine [Mass/Vol] 1.10 mg/dL Normal 0.70-1.30 [facility] Comment on above: Performed By: #### B MP, LIPID #### [facility] [address] [place] [address] Dr. Cuco Gilliam EGFR-AF UKRAINIAN >60 Normal >=60 [facility] Comment on above: Performed By: #### B MP, LIPID #### [facility] [address] [place] [address] Dr. Cuco Gilliam EGFR-NON AF UKRAINIAN >60 Normal >=60 [facility] Comment on above: Performed By: #### B MP, LIPID #### [facility] [address] [place] [address] Dr. Cuco Gilliam Glucose [Mass/Vol] 120 mg/dL Critically high 74-106 [facility] Comment on above: Performed By: #### B MP, LIPID #### [facility] [address] [place] [address] Dr. Cuco Gilliam Potassium [Moles/Vol] 4.0 mmol/L Normal 3.5-5.1 [facility] Comment on above: Performed By: #### B MP, LIPID #### [facility] [address] [place] [address] Dr. Cuco Gilliam Sodium [Moles/Vol] 140 mmol/L Normal 136-145 [facility] Comment on above: Performed By: #### B MP, LIPID #### [facility] [address] [place] [address] Dr. Cuco Gilliam Urea nitrogen [Mass/Vol] 20.0 mg/dL Critically high 7.0-18.0 [facility] Comment on above: Performed By: #### B MP, LIPID #### [facility] [address] [place] [address] Dr. Cuco Gilliam Urea nitrogen/Creatinine [Mass ratio] 18.2 mg/mg Normal [facility] Comment on above: Performed By: #### B MP, LIPID #### [facility] [address] [place] [address] Dr. Cuco Gilliam XR KUB 1 VIEWon [...] DAVONTE NUNEZ Date: 2022-10-28 11:46 Normal [facility] GLYCOHEMOGLOBIN A1Con 2021 ADA RECOMMENDATION SEE BELOW Normal [facility] Comment on above: Result Comment: ADA RECOMMENDED LIMIT 4.0 - 6.0 ADA THERAPEUTIC TARGET < 7.0 ACTION SUGGESTED > 7.0 Performed By: #### A 1C #### [facility] [address] [address] [address] Cuco Gilliam Glucose [Mass/Vol] 146 mg/dL Normal [facility] Comment on above: Performed By: #### A 1C #### [facility] [address] [address] [address] Cuco Gilliam HbA1c (Bld) [Mass fraction] 6.7 % Critically high 4.5-6.2 [facility] Comment on above: Performed By: #### A 1C #### [facility] [address] [address] [address] Cuco Gilliam Activated partial thrombopla stin time (aPTT) in platelet poor plasma by coagulation aOrdered By: Domenico Betancourt on 08-24-2022 aPTT Coag (PPP) [Time] 35.5 s 25.1-36.5 [facility] Amphetamine Screen Ql (U)Ord ered By: Domenico Betancourt on 08-24-2022 Amphetamines Ql (U) Negative Negative [facility] Barbiturates [Presence] in U rineOrdered By: Domenico Betancourt on 08-24-2022 Barbiturates Ql (U) Negative Negative [facility] Basophils Auto (Bld) [#/Vol] Ordered By: Domenico Betancourt on 08-24-2022 Basophils (Bld) [#/Vol] 0.1 10*3/uL 0.0-0.2 [facility] Basophils/100 WBC Auto (Bld) Ordered By: Domenico Betancourt on 08-24-2022 Basophils/100 WBC (Bld) 0.9 % . F [facility] Benzodiazepines [Presence] i n UrineOrdered By: Domenico Betancourt on 08-24-2022 Benzodiazepines Ql (U) Negative [facility] Blood hemoglobin measurement (mass/volume)Ordered By: Domenico Betancourt on 08-24-2022 Hemoglobin (Bld) [Mass/Vol] 13.1 g/dL 13.0-17.0 [facility] Blood leukocytes automated c ount (number/volume)Ordered By: Domenico Betancourt on 08-24-2022 WBC (Bld) [#/Vol] 6.1 10*3/uL 4.5-11.0 [facility] COVID-19 SOFIAOrdered By: Isela Betancourt on 08-24-2022 SARS-CoV+SARS-CoV-2 (COVID-19) Ag IA.rapid Ql (Resp) Negative Negative [facility] Comment on above: This is a duplicate Dodie SARS Antigen (BERNARD) result to be used for statistical tracking purpose only. Cannabinoids [Presence] in U rine by Screen methodOrdered By: Domenico Betancourt on 08-24-2022 Cannabinoids Screen Ql (U) Negative Negative [facility] Comment on above: These are unconfirme d results and should not be used for legal purposes. Drug Cut-Off Concentration: AMPH 1000 ng/mL SHON 200 ng/mL SRAVANTHI 200 ng/mL COCM 300 ng/mL OP 300 ng/mL PCP 25 ng/mL THC 20 ng/mL Creatine kinase [Enzymatic a ctivity/volume] in Serum or PlasmaOrdered By: Domenico Betancourt on 08-24-2022 CK [Catalytic activity/Vol] 49 U/L 22-269 [facility] Creatinine and Glomerular fi ltration rate.predicted panel (S/P/Bld)Ordered By: Domenico Betancourt on 08-24-2022 Creatinine [Mass/Vol] 1.13 mg/dL 0.64-1.27 [facility] Eosinophils Auto (Bld) [#/Vo l]Ordered By: Domenico Betancourt on 08-24-2022 Eosinophils (Bld) [#/Vol] 0.1 10*3/uL 0.0-0.45 [facility] Eosinophils/100 WBC Auto (Bl d)Ordered By: Domenico Betancourt on 08-24-2022 Eosinophils/100 WBC (Bld) 1.4 % . [facility] Erythrocyte distribution wid th Auto (RBC) [Ratio]Ordered By: Domenico Betancourt on 08-24-2022 Erythrocyte distribution width (RBC) [Ratio] 15.9 % 12.0-14.8 [facility] Estimated glomerular filtrat ion rate (GFR) non- AmericanOrdered By: Domenico Betancourt on 08-24-2022 GFR/1.73 sq M.predicted among non-blacks MDRD (S/P/Bld) [Vol rate/Area] > 60 mL/Min [facility] Glucose Glucometer (BldC) [M ass/Vol]Ordered By: Domenico Betancourt on 08-24-2022 Glucose [Mass/Vol] 133 mg/dL [facility] Comment on above: Random Glucose Refer ence Range is dependent on time and content of last meal. Glucose of more than 200 mg/dL in a nonstressed, ambulatory subject supports the diagnosis of Diabetes Mellitus. Hematocrit Auto (Bld) [Volum e fraction]Ordered By: Domeinco Betancourt on 08-24-2022 Hematocrit (Bld) [Volume fraction] 40.8 % 38.8-50.0 [facility] Laboratory - Chemistry and C hemistry - challengeOrdered By: Domenico Betancourt on 08-24-2022 Lipase [Catalytic activity/Vol] 23.0 U/L 22-51 [facility] Laboratory - CoagulationOrde red By: Domenico Betancourt on 08-24-2022 PT Coag (PPP) [Time] 30.6 s 9.0-12.9 [place] [facility] - Drug toxicology Ordered By: Domenico Betancourt on 08-24-2022 Opiates Ql (U) Negative Negative [facility] - Hematology and Cell countsOrdered By: Domenico Betancourt on 08-24-2022 Nucleated RBC/100 WBC (Bld) [Ratio] 0.0 % 0-0.5 [facility] - Microbiology an d Antimicrobial susceptibilityOrdered By: Domenico Betancourt on 08-24-2022 SARS-CoV-2 (COVID-19) RNA NA+probe Ql (Unsp spec) N/A [facility] Lymphocytes Auto (Bld) [#/Vo l]Ordered By: Domenico Betancourt on 08-24-2022 Lymphocytes (Bld) [#/Vol] 0.9 10*3/uL 1.00-4.8 [facility] Lymphocytes/100 WBC Auto (Bl d)Ordered By: Domenico Betancourt on 08-24-2022 Lymphocytes/100 WBC (Bld) 14.1 % . [facility] MCH Auto (RBC) [Entitic mass ]Ordered By: Domenico Betancourt on 08-24-2022 MCH (RBC) [Entitic mass] 28.7 pg 27.5-35.2 [facility] MCHC Auto (RBC) [Mass/Vol]Or dered By: Domenico Betancourt on 08-24-2022 MCHC (RBC) [Mass/Vol] 32.1 g/dL 32.5-35.6 Fir [facility] MCV Auto (RBC) [Entitic vol] Ordered By: Domenico Betancourt on 08-24-2022 MCV (RBC) [Entitic vol] 89.3 fL 83.5-101 F [facility] Monocytes Auto (Bld) [#/Vol] Ordered By: Domenico Betancourt on 08-24-2022 Monocytes (Bld) [#/Vol] 0.5 10*3/uL 0.0-0.8 [facility] Monocytes/100 WBC Auto (Bld) Ordered By: Domenico Betancourt on 08-24-2022 Monocytes/100 WBC (Bld) 8.2 % . F [facility] Neutrophils Auto (Bld) [#/Vo l]Ordered By: Domenico Betancourt on 08-24-2022 Neutrophils (Bld) [#/Vol] 4.6 10*3/uL 1.8-7.7 [facility] Neutrophils/100 WBC Auto (Bl d)Ordered By: Domenico Betancourt on 10-04-2022 Neutrophils/100 WBC (Bld) 75.4 % . [facility] No Panel InformationOrdered By: Domenico Betancourt on 08-24-2022 Estimated GFR () > 60 mL/Min [facility] Comment on above: GFR estimated refere nce range: According to KDOQI guidelines, <60 ml/min/1.73m2 is sufficient to diagnose a patient with chronic kidney disease. Pharmacy Creatinine Clearance (Chem 77.86 [facility] Bedside Glucose Comment Glu2: cleaned meter [facility] SARS Antigen (LFIA) [facility] Phencyclidine Screen Ql (U)O rdered By: Domenico Betancourt on 08-24-2022 Phencyclidine Ql (U) Negative Negative [place] Platelet mean volume Auto (B ld) [Entitic vol]Ordered By: Domenico Betancourt on 08-24-2022 Platelet mean volume (Bld) [Entitic vol] 8.2 fL 6.6-10.1 [facility] Platelet poor plasma interna tional normalized ratio (INR) by coagulation assay (relatOrdered By: Domenico Betancourt on 08-24-2022 INR Coag (PPP) [Relative time] 2.7 {INR} [facility] Comment on above: INR Therapeutic Rang e [...] Platelets Auto (Bld) [#/Vol] Ordered By: Domenico Betancourt on 08-24-2022 Platelets (Bld) [#/Vol] 170 10*3/uL 150-450 [facility] RBC Auto (Bld) [#/Vol]Ordere d By: Domenico Betancourt on 08-24-2022 RBC (Bld) [#/Vol] 4.57 10*6/uL 3.90-5.60 [facility] Serum or plasma amylase robert urement (enzymatic activity/volume)Ordered By: Domenico Betancourt on 08-24-2022 Amylase [Catalytic activity/Vol] 30 U/L 28-100 [facility] Serum or plasma anion gap de terminationOrdered By: Domenico Betancourt on 08-24-2022 Anion gap [Moles/Vol] 11.9 mmol/L 6.0-15.0 [facility] Serum or plasma aspartate am inotransferase measurement (enzymatic activity/volume)Ordered By: Domenico Betancourt on 08-24-2022 AST [Catalytic activity/Vol] 16 U/L 10-42 [facility] Serum or plasma calcium robert urement (mass/volume)Ordered By: Domenico Betancourt on 08-24-2022 Calcium [Mass/Vol] 8.8 mg/dL 8.2-10.2 [facility] Serum or plasma chloride ralph surement (moles/volume)Ordered By: Domenico Betancourt on 08-24-2022 Chloride [Moles/Vol] 99 mmol/L 95-114 [place] Serum or plasma ethanol robert urement (mass/volume)Ordered By: Domenico Betancourt on 08-24-2022 Ethanol [Mass/Vol] mg/dL [facility] Ethanol [Mass/Vol] TNP [facility] Comment on above: Test not performed Serum or plasma glucose robert urement (mass/volume)Ordered By: Domenico Betancourt on 08-24-2022 Glucose [Mass/Vol] 149 mg/dL 70-100 [facility] Comment on above: ADA recommended refe rence rangeRandom Glucose Reference Range is dependent on time and content of last meal. Glucose of more than 200 mg/dL in a nonstressed, ambulatory subject supports the diagnosis of Diabetes Mellitus. Serum or plasma potassium me asurement (moles/volume)Ordered By: Domenico Betancourt on 08-24-2022 Potassium [Moles/Vol] 3.8 mmol/L 3.5-5.1 [facility] Serum or plasma sodium measu rement (moles/volume)Ordered By: Domenico Betancourt on 08-24-2022 Sodium [Moles/Vol] 135 mmol/L 136-146 [facility] Serum or plasma total carbon dioxide measurement (moles/volume)Ordered By: Domenico Betancourt on 08-24-2022 CO2 [Moles/Vol] 27.9 mmol/L 22.0-30.0 [facility] Serum or plasma urea nitroge n measurement (mass/volume)Ordered By: Domenico Betancourt on 08-24-2022 Urea nitrogen [Mass/Vol] 13 mg/dL 9- [facility] Urine cocaine detectionOrder ed By: Domenico Betancourt on 08-24-2022 Cocaine Ql (U) Negative Negative [facility] Activated partial thrombopla stin time (aPTT) in platelet poor plasma by coagulation aOrdered By: Lalito Silva on 07-02-2022 aPTT Coag (PPP) [Time] 30.9 s 25.1-36.5 [facility] Basophils Auto (Bld) [#/Vol] Ordered By: Lalito Silva on 07-02-2022 Basophils (Bld) [#/Vol] 0.1 10*3/uL 0.0-0.2 [facility] Basophils/100 WBC Auto (Bld) Ordered By: Lalito Silva on 07-02-2022 Basophils/100 WBC (Bld) 0.8 % . [facility] Blood hemoglobin measurement (mass/volume)Ordered By: Lalito Silva on 07-02-2022 Hemoglobin (Bld) [Mass/Vol] 14.0 g/dL 13.0-17.0 [facility] Blood leukocytes automated c ount (number/volume)Ordered By: Lalito Silva on 07-02-2022 WBC (Bld) [#/Vol] 7.6 10*3/uL 4.5-11.0 [facility] COVID-19 SOFIAOrdered By: Sa tawny Smith on 07-02-2022 SARS-CoV+SARS-CoV-2 (COVID-19) Ag IA.rapid Ql (Resp) Negative Negative [facility] Comment on above: This is a duplicate Dodie SARS Antigen (BERNARD) result to be used for statistical tracking purpose only. Creatinine and Glomerular fi ltration rate.predicted panel (S/P/Bld)Ordered By: Lalito Silva on 07-02-2022 Creatinine [Mass/Vol] 1.26 mg/dL 0.64-1.27 [facility] Eosinophils Auto (Bld) [#/Vo l]Ordered By: Lalito Silva on 07-02-2022 Eosinophils (Bld) [#/Vol] 0.1 10*3/uL 0.0-0.45 [facility] Eosinophils/100 WBC Auto (Bl d)Ordered By: Lalito Silva on 07-02-2022 Eosinophils/100 WBC (Bld) 1.2 % . [facility] Erythrocyte distribution wid th Auto (RBC) [Ratio]Ordered By: Lalito Silva on 07-02-2022 Erythrocyte distribution width (RBC) [Ratio] 16.2 % 12.0-14.8 [facility] Estimated glomerular filtrat ion rate (GFR) non- AmericanOrdered By: Lalito Silva on 07-02-2022 GFR/1.73 sq M.predicted among non-blacks MDRD (S/P/Bld) [Vol rate/Area] 56 mL/Min [facility] Hematocrit Auto (Bld) [Volum e fraction]Ordered By: Lalito Silva on 07-02-2022 Hematocrit (Bld) [Volume fraction] 43.9 % 38.8-50.0 [facility] Laboratory - CoagulationOrde red By: Lalito Silva on 07-02-2022 PT Coag (PPP) [Time] 15.7 s 9.0-12.9 [place] [facility] - Coagulationon 0 07-02-2022 INR Coag (Bld) [Relative time] 1.5 {INR} [facility] 250 DO Work Phone: Comment on above: INR results are spec ifically intended to assess patients stabilized on long-term Anticoagulation therapy suggested INR?s ?Less Intensive Anticoagulation? 2.0 ? 3.0Conventional Range 3.0 ? 4.5 Laboratory - Hematology and Cell countsOrdered By: Lalito Silva on 07-02-2022 Nucleated RBC/100 WBC (Bld) [Ratio] 0.1 % 0-0.5 [facility] Lymphocytes Auto (Bld) [#/Vo l]Ordered By: Lalito Silva on 07-02-2022 Lymphocytes (Bld) [#/Vol] 1.4 10*3/uL 1.00-4.8 [facility] Lymphocytes/100 WBC Auto (Bl d)Ordered By: Lalito Silva on 07-02-2022 Lymphocytes/100 WBC (Bld) 18.8 % . [facility] MCH Auto (RBC) [Entitic mass ]Ordered By: Lalito Silva on 07-02-2022 MCH (RBC) [Entitic mass] 28.7 pg 27.5-35.2 [facility] MCHC Auto (RBC) [Mass/Vol]Or dered By: Lalito Silva on 07-02-2022 MCHC (RBC) [Mass/Vol] 31.9 g/dL 32.5-35.6 Fir [facility] MCV Auto (RBC) [Entitic vol] Ordered By: Lalito Silva on 07-02-2022 MCV (RBC) [Entitic vol] 90.1 fL 83.5-101 F [facility] Monocytes Auto (Bld) [#/Vol] Ordered By: Lalito Silva on 07-02-2022 Monocytes (Bld) [#/Vol] 0.6 10*3/uL 0.0-0.8 [facility] Monocytes/100 WBC Auto (Bld) Ordered By: Lalito Silva on 07-02-2022 Monocytes/100 WBC (Bld) 7.2 % . F [facility] Neutrophils Auto (Bld) [#/Vo l]Ordered By: Lalito Silva on 07-02-2022 Neutrophils (Bld) [#/Vol] 5.5 10*3/uL 1.8-7.7 [facility] Neutrophils/100 WBC Auto (Bl d)Ordered By: Lalito Silva on 07-02-2022 Neutrophils/100 WBC (Bld) 72.0 % . [facility] No Panel InformationOrdered By: Lalito Silva on 07-02-2022 Estimated GFR () > 60 mL/Min [facility] Comment on above: GFR estimated refere nce range: According to KDOQI guidelines, <60 ml/min/1.73m2 is sufficient to diagnose a patient with chronic kidney disease. Pharmacy Creatinine Clearance (Chem 67.63 [facility] No Panel Informationon 07-02 33.6 {second(s)} Normal 25.1-36.5 -[facility] [employer] 250 DO Work Phone: Comment on above: Parameter 15 days - 4 weeks 1 - 5 months 6 - 11 months 1 - 5 years 6 - 10 years 11 - 17 years PTT Mean: 35.4 (27.6-45.6) Mean: 33.5 (24.8-40.7) Mean: 32.4 (25.1-40.7) Mean: 31.6 (24.0-39.2) Mean: 31.6 (26.9-38.7) Mean: 31.0 (24.6-38.4) Pediatric Reference ranges were obtained from a study by selena Landaverde prepared from 1437 samples obtained at 7 different centers using the same coagulation reagent and instrumentation as [place]. Currently there are no coagulation studies available worldwide for children to 14 days, and no normal ranges. Heparin therapeutic range (represented by Anti-Factor Xa activity of 0.2 - 0.4 U/mL) corresponds to PTT of 56.6 - 109.0 sec. 17.2 {second(s)} above high threshold 9.4-12.5 [facility] [employer] 250 DO Work Phone: Comment on above: [...] ranges were obtained from a study by selena Landaverde prepared from 1437 samples obtained at 7 different centers using the same coagulation reagent and instrumentation as [place]. Currently there are no coagulation studies available worldwide for children to 14 days, and no normal ranges. No Panel InformationOrdered By: Joss Smith on 07-02-2022 SARS Antigen (LFIA) [facility] Platelet mean volume Auto (B ld) [Entitic vol]Ordered By: Lalito Silva on 07-02-2022 Platelet mean volume (Bld) [Entitic vol] 8.3 fL 6.6-10.1 [facility] Platelet poor plasma interna tional normalized ratio (INR) by coagulation assay (relatOrdered By: Lalito Silva on 07-02-2022 INR Coag (PPP) [Relative time] 1.4 {INR} [facility] Comment on above: INR Therapeutic Rang e [...] 07-02-2022 Platelets (Bld) [#/Vol] 225 10*3/uL 150-450 [facility] RBC Auto (Bld) [#/Vol]Ordere d By: Lalito Silva on 07-02-2022 RBC (Bld) [#/Vol] 4.87 10*6/uL 3.90-5.60 [facility] Serum or plasma calcium robert urement (mass/volume)Ordered By: Lalito Silva on 07-02-2022 Calcium [Mass/Vol] 9.0 mg/dL 8.2-10.2 [facility] Serum or plasma chloride ralph surement (moles/volume)Ordered By: Lalito Silva on 07-02-2022 Chloride [Moles/Vol] 100 mmol/L 95-114 [place] Serum or plasma glucose robert urement (mass/volume)Ordered By: Lalito Silva on 07-02-2022 Glucose [Mass/Vol] 116 mg/dL 70-100 [facility] Comment on above: ADA recommended refe rence [...] on 07-02-2022 Potassium [Moles/Vol] 4.0 mmol/L 3.5-5.1 [facility] Serum or plasma sodium measu rement (moles/volume)Ordered By: Lalito Silva on 07-02-2022 Sodium [Moles/Vol] 139 mmol/L 136-146 [facility] Serum or plasma total carbon dioxide measurement (moles/volume)Ordered By: Lalito Silva on 07-02-2022 CO2 [Moles/Vol] 28.9 mmol/L 22.0-30.0 [facility] Serum or plasma urea nitroge n measurement (mass/volume)Ordered By: Lalito Silva on 07-02-2022 Urea nitrogen [Mass/Vol] 25 mg/dL 9-23 [facility] Office Visit (Cardiology)on 06-15-2022 Follow-up visit Diagnoses/Problems Assessed Atherosclerosis of coronary artery of sun'aq heart without angina pectoris (414.01) (I25.10) Hyperlipidemia [...] Weight Tips; Status:Complete - Retrospective Authorization; Done: [id number] Some eating tips that can help you lose weight.; Status:Complete - Retrospective Authorization; Done: [id number] SocHx: Former smoker Tobacco Use Screening; Status:Complete; Done: [id number] Patient Instructions Please bring all medicines, vitamins, and herbal supplements with you when you come to the office. Prescriptions will not be filled unless you are compliant with your follow up appointments or have a follow up appointment scheduled as per instruction of your physician. Refills should be requested at the time of your visit. Nadeen Davila LPN, am scribing for and in the [...] surgery History of Complete colonoscopy Managed By: Codey OCONNELL, Ricardo Caruso (Gastroenterology) History of Cystocele repair History of [...] Sodium 4 MG Oral Tabletas directed by [facility] Patient did not bring medication [...] negative for complaint. Vitals Vital Signs Recorded: [id number] 11:29AM Heart Rate68, R Radial Xucuvdwq464, RUE, Sitting Uvcclcgfa20, RUE, Sitting Height5 ft 6 in Cppcge721 lb BMI Upblaqjsgb74 kg/m2 BSA Calculated2.43 Tobacco Useb) No Physical [...] normal s (more content not included)... Normal [employer] Tobacco Screening.on 022 Tobacco use status CPHS b) No M P-[facility] 250 DO Work Phone: Office Visit (Cardiology)on 03-16-2022 Follow-up visit Diagnoses/Problems Assessed Atherosclerosis of coronary artery of sun'aq heart without angina pectoris (414.01) (I25.10) Essential hypertension, benign (401.1) (I10) Diabetes mellitus (250.00) (E11.9) Hyperlipidemia (272.4) (E78.5) High risk medication use (V58.69) (Z79.899) Body mass index (BMI) of 50.0 to 59.9 in adult (V85.43) (Z68.43) Former smoker (V15.82) (Z87.891) QUIT 1996 Edema (782.3) (R60.9) Atrial flutter (427.32) (I48.92) Orders Atrial flutter IO EKG Electrocardiogram- 12 Lead; Status:Complete; Done: [id number] Body mass index (BMI) of 50.0 to 59.9 in adult Healthy Weight Tips; Status:Complete - Retrospective Authorization; Done: [id number] Edema Start: Torsemide 10 MG Oral Tablet; Take one tablet once daily Edema, Essential hypertension, benign, High risk medication use Basic Metabolic Panel; Status:Active - Retrospective Authorization; Requested for:[id number]; SocHx: Former smoker Tobacco Use Screening; Status:Complete; Done: [id number] Patient Instructions By signing my name below, I, Carin Zuluaga LPNiboscar, attest that this documentation has been prepared [...] surgery History of Complete colonoscopy Managed By: Codey OCONNELL, Ricardo Caruso (Gastroenterology) History of Cystocele repair History of [...] Sodium 4 MG Oral Tabletas directed by [facility] Allergies Medication Penicillins Allergy; Hives;; Recorded By: Reina Bloom; 08/04/2021 6:29:44 PM Social History Problems Consumes 1 to 2 servings of caffeine per day (V49.89) (Z78.9) Former smoker (V15.82) (Z87.891) QUIT 1996 No illicit drug use Occasional alcohol use (more content not included)... Normal [employer] Tobacco Screening.on 022 Adult depression screening assessment No [facility] [employer] 250 DO Work Phone: Fall risk assessment b) One or more fall s in the last year [facility] [employer] 250 DO Work Phone: Tobacco use status CPHS b) No M [facility] [employer] 250 DO Work Phone: No Panel Informationon 01-20 22\S\22 Normal 10-42 [facility] [employer] 250 DO Work Phone: 0.50\S\0.50 Normal 0.45-5.33 [facility] [employer] 250 DO Work Phone: Comment on above: PERFORMED BY:[place] [address] [place] [place], [place] [id number] MEDICAL DIRECTORCORAL GOLD M.D. 9.1\S\9.1 Normal 8.2-10.2 [facility] [employer] 250 DO Work Phone: 24.4\S\24.4 Normal 22.0-30.0 [facility] [employer] 250 DO Work Phone: 102\S\102 Normal 95-114 [facility] [employer] 250 DO Work Phone: 4.1\S\4.1 Normal 3.5-5.1 [facility] [employer] 250 DO Work Phone: 138\S\138 Normal 136-146 [facility] [employer] 250 DO Work Phone: 55\S\55 Normal [facility] Car [employer] DO Work Phone: Comment on above: GFR estimated refere nce range: According to KDOQI guidelines, <60 ml/min/1.73m2 is sufficient to diagnose a patient with chronic kidney disease. 45\S\45 Normal [facility] [employer] DO Work Phone: 1.51\S\1.51 above high threshold 0.64-1.27 [facility] [employer] 250 DO Work Phone: 23\S\23 Normal 9-23 [facility] Car [employer] DO Work Phone: 109\S\109 above high threshold 70-100 [facility] Work Phone: Comment on above: Random Glucose Refer ence Range is dependent on time and content of last meal. Glucose of more than 200 mg/dL in a nonstressed, ambulatory subject supports the diagnosis of Diabetes Mellitus. ADA recommended reference range Radiologyon 01-20-2022 XR Chest 2 Views Normal [facility] [employer] DO Work Phone: No Panel Informationon 09-23 Normal [facility] [employer] DO Work Phone: No Panel Informationon 09-22 [facility] [employer] DO Work Phone: IO EKG Electrocardiogram- 12 Leadon 09-07-2021 IO EKG Electrocardiogram- 12 Lead See Scanned Document [facility] DO Work Phone: Office Visit (Cardiology)on 09-07-2021 Follow-up visit Diagnoses/Problems Assessed Atherosclerosis of coronary artery of sun'aq heart without angina pectoris (414.01) (I25.10) Atrial flutter (427.32) (I48.92) Essential hypertension, benign (401.1) (I10) Diabetes mellitus (250.00) (E11.9) Hyperlipidemia (272.4) (E78.5) Body mass index (BMI) of 50.0 to 59.9 in adult (V85.43) (Z68.43) Former smoker (V15.82) (Z87.891) QUIT 1996 Obesity, morbid (more than 100 lbs over ideal weight or BMI > 40) (278.01) (E66.01) Orders Atherosclerosis of coronary artery of sun'aq heart without angina pectoris Renew: Aspirin EC [...] Sodium 4 MG Oral Tabletas directed by [facility] Allergies Medication Penicillins Allergy; Hives;; [...] Signs Recorded: 07Sep2021 09:34AM Heart Rate70, Apical Nycojbiw77, RUE, Sitting Difxxuolb79, RUE, Sitting Height5 ft 6.5 in Ryixmr617 lb BMI Mvuqdultud85.26 kg/m2 BSA Calculated2.5 Tobacco Useb) No Fall Screeninga) No falls within the last year EKG done in office today. Physical Exam Constitutional: alert and in no acute distress. Eyes: no erythema, swelling or discharge from the eye . Neck: neck is supple (more content not included)... 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 T3-[id number]-O This report has been produced using speech [...] Physician: MALLIKA QUINONES M.D. Original Transcribed by/Date: [facility] Apr 29 2019 4:50P Original Electronically Signed by/Date: MALLIKA QUINONES M.D. Apr 29 2019 4:50P Addendum Interpreting Physician: Addendum Transcribed by/Date: NO ADDENDUM Addendum Electronically Signed by/Date: [facility] KNEE BI 1 OR 2 VIEWon 2018 KNEE BI 1 OR 2 VIEW *FINAL Date of Service: 04/29/2019 16:45 Adm #: [id number] Reading Dr:MALLIKA QUINONES Signoff Dr: MALLIKA QUINONES [...] change due to bilateral tricompartmental knee arthroplasty. [id number] This report has been produced using speech recognition. Original Interpreting Physician: MALLIKA QUINONES M.D. Original Transcribed by/Date: [facility] Apr 29 2019 4:53P Original Electronically Signed by/Date: MALLIKA QUINONES M.D. Apr 29 2019 4:53P Addendum Interpreting Physician: Addendum Transcribed by/Date: NO ADDENDUM Addendum Electronically Signed by/Date: [facility] PROTHROMBIN TIMEon 9 INR Coag RelTime (PPP) High 0.86-1.16 [facility] Comment on above: Result Comment: 2.5 INR Theraputic Range: 2.0-3.5 Performed at [address] [address] Performed By: #### P TB #### [facility] [place] [address] [address] Prothrombin time (PT) Coag time (PPP) INFORMATION NOT REPORTED TO LABORATORY [facility] Comment on above: Performed By: #### P TB #### [facility] [address] [place] [address] Prothrombin time (PT) Coag time (PPP) 24.9 s High 9.3-12.7 [facility] Comment on above: Performed By: #### P TB #### [facility] [address] [address] SHOULDER RT MIN 2 VIEWon SHOULDER RT MIN 2 VIEW *FINAL Date of Service: 04/29/2019 16:45 Adm #: [id number] Reading Dr:MALLIKA Rubi Dr: MALLIKA QUINONES PROCEDURE: SHOULDER RT MIN [...] acromioclavicular joint and at the glenohumeral joint. Q5-ADACTMR-N This report has been produced using speech recognition. Original Interpreting Physician: MALLIKA QUINONES M.D. Original Transcribed by/Date: [facility] Apr 29 2019 4:51P Original Electronically Signed by/Date: MALLIKA QUINONES M.D. Apr 29 2019 4:51P Addendum Interpreting Physician: Addendum Transcribed by/Date: NO ADDENDUM Addendum Electronically Signed by/Date: [facility] SPINE CERVICAL WO CONTRASTon 04-29-2019 SPINE CERVICAL WO CONTRAST *FINAL Date of Service: 04/29/2019 16:43 Adm #: [id number] Reading Dr:MALLIKA Rubi Dr: MALLIKA QUINONES PROCEDURE: SPINE CERVICAL WO [...] from C3-4 through C7-T1 with cervical spondylosis. T0-[id number]-Q This report has been produced using speech [...] Physician: MALLIKA QUINONES M.D. Original Transcribed by/Date: [facility] Apr 29 2019 5:02P Original Electronically Signed by/Date: MALLIKA QUINONES M.D. Apr 29 2019 5:02P Addendum Interpreting Physician: Addendum Transcribed by/Date: NO ADDENDUM Addendum Electronically Signed by/Date: [facility] Vital Signs Date Time Vital Sign Value Performing Clinician Facility 08-14-2024 14:40-0400 Body height 168.91 cm DO Modesto Ball Work Phone: [facility] 08-14-2024 14:40-0400 Body mass index (BMI) [Ratio] 49.9 kg/m2 DO [place] Ball Work Phone: [facility] 08-14-2024 14:40-0400 Body weight 142.42 kg DO [place] Ball Work Phone: [facility] 08-14-2024 14:40-0400 Diastolic blood pressure 70 mm[Hg] DO [place] Ball Work Phone: [facility] 08-14-2024 14:40-0400 Heart rate 78 /min DO [place] Ball Work Phone: [facility] 08-14-2024 14:40-0400 SaO2% (BldA) [Mass fraction] 98 % DO [place] Ball Work Phone: [facility] 08-14-2024 14:40-0400 Systolic blood pressure 140 mm[Hg] DO [place] Ball Work Phone: [facility] 06-22-2024 08:00-0400 Body temperature 97.9 [degF] DO Modesto Ball Work Phone: [facility] 06-22-2024 08:00-0400 Diastolic blood pressure 85 mm[Hg] DO Modesto Ball Work Phone: [facility] 06-22-2024 08:00-0400 Heart rate 64 /min DO Modesto Ball Work Phone: [facility] 06-22-2024 08:00-0400 Respiratory rate 20 /min DO Modesto Ball Work Phone: [facility] 06-22-2024 08:00-0400 SaO2% (BldA) [Mass fraction] 96 % DO Modesto Ball Work Phone: [facility] 06-22-2024 08:00-0400 Systolic blood pressure 146 mm[Hg] DO Modesto Ball Work Phone: [facility] 06-22-2024 05:02-0400 Body weight 143.9 kg DO Modesto Ball Work Phone: [facility] 06-20-2024 14:46-0400 Body height 167.64 cm DO Modesto Ball Work Phone: [facility] 06-18-2024 23:31-0400 Inhaled oxygen concentration 21 % DO Modesto Ball Work Phone: [facility] 06-18-2024 22:17-0400 Body temperature 98.6 [degF] DO Modesto Ball Work Phone: [facility] 06-18-2024 22:17-0400 Diastolic blood pressure 52 mm[Hg] DO Modesto Ball Work Phone: [facility] 06-18-2024 22:17-0400 Heart rate 64 /min DO Modesto Ball Work Phone: [facility] 06-18-2024 22:17-0400 Respiratory rate 18 /min DO Modesto Ball Work Phone: [facility] 06-18-2024 22:17-0400 SaO2% (BldA) [Mass fraction] 95 % DO Modesto Ball Work Phone: [facility] 06-18-2024 22:17-0400 Systolic blood pressure 95 mm[Hg] DO Modesto Ball Work Phone: [facility] 06-18-2024 15:48-0400 Body height 167.64 cm DO Modesto Ball Work Phone: [facility] 06-18-2024 15:48-0400 Body weight 144.6 kg DO Modesto Ball Work Phone: [facility] 04-23-2024 10:34-0400 Body height 170.2 cm Lalito Silva MD Work Phone: [facility] 04-23-2024 10:34-0400 Body mass index (BMI) [Ratio] 50.43 kg/m2 Lalito Silva MD Work Phone: [facility] 04-23-2024 10:34-0400 Body weight 146.06 kg Lalito Silva MD Work Phone: [facility] 04-23-2024 10:34-0400 Diastolic blood pressure 60 mm[Hg] Lalito Silva MD Work Phone: [facility] 04-23-2024 10:34-0400 Heart rate 68 /min Lalito Silva MD Work Phone: [facility] 04-23-2024 10:34-0400 Systolic blood pressure 94 mm[Hg] Lalito Silva MD Work Phone: [facility] 03-26-2024 14:28-0400 Body height 167.64 cm [facility] 03-26-2024 14:28-0400 Body mass index (BMI) [Ratio] 51.7 kg/m2 [facility] 03-26-2024 14:28-0400 Body weight 145.31 kg [facility] 03-26-2024 14:28-0400 Diastolic blood pressure 75 mm[Hg] [facility] 03-26-2024 14:28-0400 Heart rate 74 /min [facility] 03-26-2024 14:28-0400 Respiratory rate 24 /min [facility] 03-26-2024 14:28-0400 Systolic blood pressure 126 mm[Hg] [facility] 12-26-2023 11:00-0500 Body height Modesto Ball Other [facility] [employer] Other 12-26-2023 11:00-0500 Body mass index (BMI) [Ratio] 53.35 kg/m2 Modesto Ball Other [facility] [facility] [employer] Other 12-26-2023 11:00-0500 Body weight 149.96 kg Modesto Ball Other [employer] [facility] [employer] Other 12-26-2023 11:00-0500 Diastolic blood pressure 79 mm[Hg] Modesto Ball Other [employer] Other 12-26-2023 11:00-0500 Respiratory rate 20 /min Modesto Ball Other [facility] Other 12-26-2023 11:00-0500 Systolic blood pressure 150 mm[Hg] Modesto Ball Other [facility] Other 10-17-2023 10:00-0500 Body height Modesto Ball Other [facility] Other 10-17-2023 10:00-0500 Body mass index (BMI) [Ratio] 53.19 kg/m2 Modesto Ball Other [facility] Other 10-17-2023 10:00-0500 Body weight 149.51 kg Modesto Ball Other [facility] Other 10-17-2023 10:00-0500 Diastolic blood pressure 83 mm[Hg] Modesto Ball Other [facility] Other 10-17-2023 10:00-0500 Respiratory rate 20 /min Modesto Ball Other [facility] Other 10-17-2023 10:00-0500 Systolic blood pressure 144 mm[Hg] Modesto Ball Other [facility] Other 10-07-2023 15:25-0500 Body height 165.1 cm Lalito Silva MD Work Phone: [facility] 10-07-2023 15:25-0500 Body mass index (BMI) [Ratio] 52.42 kg/m2 Lalito Silva MD Work Phone: [facility] 10-07-2023 15:25-0500 Body weight 142.88 kg Lalito Silva MD Work Phone: [facility] 10-07-2023 15:25-0500 Diastolic blood pressure 78 mm[Hg] Lalito Silva MD Work Phone: [facility] 10-07-2023 15:25-0500 Heart rate 80 /min Lalito Silva MD Work Phone: [facility] 10-07-2023 15:25-0500 Systolic blood pressure 118 mm[Hg] Lalito Silva MD Work Phone: [facility] 09-23-2023 10:30-0400 Body height Modesto Ball Other [facility] Other 09-23-2023 10:30-0400 Body mass index (BMI) [Ratio] 52.13 kg/m2 Modesto Ball Other [facility] Other 09-23-2023 10:30-0400 Body weight 146.51 kg Modesto Ball Other [facility] Other 09-23-2023 10:30-0400 Diastolic blood pressure 82 mm[Hg] Modesto Ball Other [facility] Other 09-23-2023 10:30-0400 Respiratory rate 20 /min Modesto Ball Other [facility] Other 09-23-2023 10:30-0400 Systolic blood pressure 147 mm[Hg] Modesto Ball Other [facility] Other 09-23-2023 09:30-0400 Body height Modesto Ball Other [facility] Other 09-23-2023 09:30-0400 Body mass index (BMI) [Ratio] 52.13 kg/m2 Modesto Ball Other [facility] Other 09-23-2023 09:30-0400 Body weight 146.51 kg Modesto Ball Other [facility] Other 09-23-2023 09:30-0400 Diastolic blood pressure 82 mm[Hg] Modesto Ball Other [facility] Other 09-23-2023 09:30-0400 Respiratory rate 20 /min Modesto Ball Other [facility] Other 09-23-2023 09:30-0400 Systolic blood pressure 147 mm[Hg] Modesto Ball Other [facility] Other 06-23-2023 11:00-0400 Body height Modesto Ball Other [facility] Other 06-23-2023 11:00-0400 Body mass index (BMI) [Ratio] 51.03 kg/m2 Modesto Ball Other [facility] Other 06-23-2023 11:00-0400 Body weight 143.43 kg Modesto Ball Other [facility] Other 06-23-2023 11:00-0400 Diastolic blood pressure 74 mm[Hg] Modesto Ball Other [facility] Other 06-23-2023 11:00-0400 Respiratory rate 20 /min Modesto Ball Other [facility] Other 06-23-2023 11:00-0400 Systolic blood pressure 116 mm[Hg] Modesto Ball Other [facility] Other 05-15-2023 00:03-0400 Diastolic blood pressure 76 mm[Hg] DO Modesto Ball Work Phone: [facility] 05-15-2023 00:03-0400 Heart rate 72 /min DO Modesto Ball Work Phone: [facility] 05-15-2023 00:03-0400 Respiratory rate 14 /min DO Modesto Ball Work Phone: [facility] 05-15-2023 00:03-0400 SaO2% (BldA) [Mass fraction] 96 % DO Modesto Ball Work Phone: [facility] 05-15-2023 00:03-0400 Systolic blood pressure 143 mm[Hg] DO Modesto Ball Work Phone: [facility] 05-14-2023 22:42-0400 Body temperature 97.5 [degF] DO Modesto Ball Work Phone: [facility] 05-14-2023 19:48-0400 Body height 170.18 cm DO Modesto Ball Work Phone: [facility] 05-14-2023 19:48-0400 Body weight 143.8 kg DO Modesto Ball Work Phone: [facility] 03-08-2023 09:15-0400 Body height 167.64 cm Modesto E Ball Work Phone: [facility] DO Work Phone: 03-08-2023 09:15-0400 Body mass index (BMI) [Ratio] 50.68 kg/m2 Modesto E Ball Work Phone: [facility] DO Work Phone: 03-08-2023 09:15-0400 Body surface area Derived from formula 2.42 m2 Modesto E Ball Work Phone: [facility] DO Work Phone: 03-08-2023 09:15-0400 Body weight 142.43 kg Modesto E Ball Work Phone: [facility] DO Work Phone: 03-08-2023 09:15-0400 Diastolic blood pressure 72 mm[Hg] Modesto E Ball Work Phone: [facility] [employer] 250 DO Work Phone: 03-08-2023 09:15-0400 Heart rate 62 /min Modesto E Ball Work Phone: [facility] [employer] 250 DO Work Phone: 03-08-2023 09:15-0400 Systolic blood pressure 120 mm[Hg] Modesto E Ball Work Phone: [facility] DO Work Phone: 02-22-2023 11:00-0400 Body height Modesto Ball Other [facility] [employer] Other 02-22-2023 11:00-0400 Body mass index (BMI) [Ratio] 51.58 kg/m2 Modesto Ball Other [facility] [employer] Other 02-22-2023 11:00-0400 Body weight 144.97 kg Modesto Ball Other [facility] [employer] Other 02-22-2023 11:00-0400 Diastolic blood pressure 80 mm[Hg] Modesto Ball Other [facility] [employer] Other 02-22-2023 11:00-0400 Respiratory rate 20 /min Modesto Ball Other [facility] [employer] Other 02-22-2023 11:00-0400 Systolic blood pressure 128 mm[Hg] Modesto Ball Other [facility] [employer] Other 08-24-2022 09:00-0400 Diastolic blood pressure 66 mm[Hg] DO Modesto Ball Work Phone: [facility] 08-24-2022 09:00-0400 Heart rate 62 /min DO Modesto Ball Work Phone: [facility] 08-24-2022 09:00-0400 Respiratory rate 20 /min DO Modesto Ball Work Phone: [facility] 08-24-2022 09:00-0400 SaO2% (BldA) [Mass fraction] 96 % DO Modesto Ball Work Phone: [facility] 08-24-2022 09:00-0400 Systolic blood pressure 106 mm[Hg] DO Modesto Ball Work Phone: [facility] 08-24-2022 05:19-0400 Body height 170.18 cm DO Modesto Ball Work Phone: [facility] 08-24-2022 05:19-0400 Body weight 148.3 kg DO Modesto Ball Work Phone: [facility] 08-24-2022 05:10-0400 Body temperature 97.9 [degF] DO Modesto Ball Work Phone: [facility] 07-03-2022 07:42-0400 Diastolic blood pressure 81 mm[Hg] DO Modesto Ball Work Phone: [facility] 07-03-2022 07:42-0400 Heart rate 90 /min DO Modesto Ball Work Phone: [facility] 07-03-2022 07:42-0400 Respiratory rate 18 /min DO Modesto Ball Work Phone: [facility] 07-03-2022 07:42-0400 SaO2% (BldA) [Mass fraction] 97 % DO Modesto Ball Work Phone: [facility] 07-03-2022 07:42-0400 Systolic blood pressure 130 mm[Hg] DO Modesto Ball Work Phone: [facility] 07-03-2022 05:36-0400 Body weight 142.5 kg DO Modesto Ball Work Phone: [facility] 07-02-2022 19:55-0400 Body temperature 97.9 [degF] DO Modesto Ball Work Phone: [facility] 07-02-2022 18:56-0400 Inhaled oxygen flow rate 8 L/min DO Modesto Ball Work Phone: [facility] 07-02-2022 18:18-0400 Body height 170.18 cm DO Modesto Ball Work Phone: [facility] 07-02-2022 18:18-0400 Body mass index (BMI) [Ratio] 48.5 kg/m2 DO Modesto Ball Work Phone: [facility] 06-15-2022 11:29-0400 Body height 167.64 cm Modesto E Ball Work Phone: [facility] DO Work Phone: 06-15-2022 11:29-0400 Body mass index (BMI) [Ratio] 51 kg/m2 Modesto E Ball Work Phone: [facility] DO Work Phone: 06-15-2022 11:29-0400 Body surface area Derived from formula 2.43 m2 Moedsto E Ball Work Phone: [facility] DO Work Phone: 06-15-2022 11:29-0400 Body weight 143.34 kg Modesto E Ball Work Phone: [facility] DO Work Phone: 06-15-2022 11:29-0400 Diastolic blood pressure 62 mm[Hg] Modesto E Ball Work Phone: [facility] DO Work Phone: 06-15-2022 11:29-0400 Heart rate 68 /min Modesto E Ball Work Phone: [facility] DO Work Phone: 06-15-2022 11:29-0400 Systolic blood pressure 108 mm[Hg] Modesto E Ball Work Phone: [facility] DO Work Phone: 03-16-2022 08:50-0400 Body height 167.64 cm Modesto E Ball Work Phone: [facility] DO Work Phone: 03-16-2022 08:50-0400 Body mass index (BMI) [Ratio] 51.65 kg/m2 Modesto E Ball Work Phone: [facility] DO Work Phone: 03-16-2022 08:50-0400 Body surface area Derived from formula 2.44 m2 Modesto E Ball Work Phone: [facility] DO Work Phone: 03-16-2022 08:50-0400 Body weight 145.15 kg Modesto E Ball Work Phone: [facility] DO Work Phone: 03-16-2022 08:50-0400 Diastolic blood pressure 70 mm[Hg] Modesto E Ball Work Phone: [facility] DO Work Phone: 03-16-2022 08:50-0400 Heart rate 54 /min Modesto E Ball Work Phone: [facility] DO Work Phone: 03-16-2022 08:50-0400 Systolic blood pressure 118 mm[Hg] Modesto E Ball Work Phone: [facility] DO Work Phone: 09-22-2021 00:00-0400 56 1 Modesto E Ball Work Phone: [facility] DO Work Phone: Comment on above: [id number] 09-07-2021 09:34-0400 Body height 168.91 cm Modesto E Ball Work Phone: [facility] 250 DO Work Phone: 09-07-2021 09:34-0400 Body mass index (BMI) [Ratio] 53.26 kg/m2 Modesto Chavarria Work Phone: [facility] 250 DO Work Phone: 09-07-2021 09:34-0400 Body surface area Derived from formula 2.5 m2 Modesto Chavarria Work Phone: [facility] 250 DO Work Phone: 09-07-2021 09:34-0400 Body weight 151.96 kg Modesto Chavarria Work Phone: [facility] 250 DO Work Phone: 09-07-2021 09:34-0400 Diastolic blood pressure 56 mm[Hg] Modesto Chavarria Work Phone: [facility] DO Work Phone: 09-07-2021 09:34-0400 Heart rate 70 /min Modesto Chavarria Work Phone: [facility] DO Work Phone: 09-07-2021 09:34-0400 Systolic blood pressure 92 mm[Hg] [facility] Work [facility]: Encounters Encounter Date Encounter Type Care Provider Facility Start: 08-24-2024 ambulatory Carlos Alberto Wells ty:[facility] Start: 08-14-2024 End: 08-14-2024 ambulatory DO Modesto Chavarria Work Phone: [facility] Work Phone: Start: 08-14-2024 End: 08-14-2024 Patient encounter procedure DO Modesto Chavarria Work Phone: [facility] Work Phone: Start: 08-07-2024 Non-patient / Non-visit DO Ivan Chavarria Work Phone: [facility] Work Phone: Start: 07-12-2024 Non-patient / Non-visit DO Ivan Chavarria Work Phone: [facility] Work Phone: Start: 06-22-2024 Non-patient / Non-visit DO Ivan Chavarria Work Phone: [facility] Work Phone: Start: 06-19-2024 End: 06-22-2024 Evaluation and management of inpatient DO Modesto Chavarria Work Phone: [facility] [place] [facility] Work Phone: Start: 06-18-2024 Evaluation and manag ement of inpatient DO Modesto Chavarria Work Phone: [facility] [place] [facility] Work Phone: Start: 06-18-2024 observation encounter DO Wade Chavarria Work Phone: [facility] Work Phone: Start: 05-14-2024 End: 05-14-2024 ambulatory Carlos Alberto GIBSON Facility:[facility] Start: 04-23-2024 End: 04-23-2024 ambulatory DO Modesto Chavarria Work Phone: [facility] Work Phone: Start: 04-23-2024 End: 04-23-2024 Patient encounter procedure DO Modesto Chavarria Work Phone: [facility] Work Phone: Start: 04-23-2024 End: 04-23-2024 ambulatory LALITO SILVA [facility] Start: 04-23-2024 End: 04-23-2024 Office outpatient visit 25 minutes Lalito Silva MD Work Phone: [facility] Comment on above: 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); Pacemaker; Permanent atrial fibrillation (Multi); Essential hypertension, benign; Complete heart block (Multi); BMI 50.0-59.9, adult (Multi); SOB (shortness of breath) on exertion; Mixed hyperlipidemia Start: 03-29-2024 End: 03-29-2024 ambulatory Lalito Silva Facility:[id number] Start: 03-26-2024 End: 03-26-2024 ambulatory [facility] Work Phone: Start: 03-26-2024 End: 03-26-2024 Patient encounter procedure [facility] Work Phone: Start: 12-26-2023 End: 12-26-2023 ambulatory Modesto Chavarria Other [facility] Other Start: 12-26-2023 Patient encounter procedure Modesto Ariel [facility] Start: 10-17-2023 End: 10-17-2023 ambulatory Modesto Ariel Other [facility] Other Start: 10-17-2023 Office outpatient vi sit 15 minutes Modesto [facility] Start: 10-07-2023 End: 10-07-2023 ambulatory [facility] Ambulatory Start: 10-07-2023 End: 10-07-2023 Office outpatient visit 25 minutes Lalito Silva MD Work Phone: [facility] Comment on above: Pacemaker (Primary D x); Permanent atrial fibrillation (CMS/HCC); Mixed hyperlipidemia; Essential hypertension, benign; Complete heart block (CMS/HCC); Atherosclerosis of sun'aq coronary artery of sun'aq heart without angina pectoris Start: 09-23-2023 End: 09-23-2023 ambulatory Modesto Ariel Other [facility] Other Start: 09-23-2023 Office outpatient vi sit 25 minutes Modesto Chavarria [facility] Start: 09-22-2023 End: 09-22-2023 ambulatory [facility] Facility:[id number] Start: 07-12-2023 End: 07-12-2023 ambulatory Modesto Chavarria Other [facility] Other Start: 07-12-2023 Telephone encounter Modesto Chavarria [facility] Start: 06-23-2023 End: 06-23-2023 ambulatory Modesto Chavarria Other [facility] Other Start: 06-23-2023 Office outpatient vi sit 25 minutes Modesto Chavarria [facility] Start: 06-07-2023 End: 06-07-2023 ambulatory Modesto Chavarria Other [facility] Other Start: 06-07-2023 Telephone encounter Modesto Chavarria [facility] Start: 05-25-2023 End: 05-25-2023 ambulatory Modesto Chavarria Other [facility] Other Start: 05-25-2023 Telephone encounter Modesto Chavarria FP [facility] Start: 05-23-2023 End: 05-23-2023 ambulatory Modesto Chavarria Other [facility] Other Start: 05-23-2023 Telephone encounter Modesto TELLO [facility] Start: 05-16-[address] Modesto Chavarria Facility:[id number] Start: 05-15-[address] Modesto Chavarria Facility:[id number] Start: 05-14-2023 Evaluation and manag ement of inpatient DO Modesto Chavarria Work Phone: [facility] [place] [facility] Work Phone: Start: 05-12-2023 End: 05-12-2023 ambulatory Modesto Chavarria Other [facility] Other Start: 05-12-2023 Initial nursing faci lity care/day 35 minutes Modesto Chavarria [facility] Start: 05-11-2023 End: 05-11-2023 ambulatory Modesto Chavarria Other [facility] Other Start: 05-11-2023 Telephone encounter Modesto Chavarria [facility] Start: 05-09-2023 End: 05-09-2023 ambulatory Modesto Ariel Other [facility] Other Start: 05-09-2023 Telephone encounter Modesto Chavarria [facility] Start: 04-28-2023 End: 04-28-2023 ambulatory Modesto Ariel Other [facility] Other Start: 04-28-2023 Telephone encounter Modesto Chavarria [facility] Start: 03-24-[address] Modesto Chavarria Facility: Start: 03-21-2023 End: 04-20-2023 ambulatory SHAIKH Shady MCCURDY Facility:[facility]1 Start: 03-09-2023 Rx Renewal Modesto Brock l Work Phone: [facility] [employer] 250 DO Work Phone: Start: 03-09-2023 End: 03-09-2023 ambulatory Modesto Chavarria Other [facility] Other Start: 03-09-2023 Telephone encounter Modesto Chavarria [facility] Start: 03-08-2023 Office outpatient vi sit 25 minutes Modesto Chavarria Work Phone: [facility] [employer] 250 DO Work Phone: Start: 03-08-[address] Lalito Silva Facility: Start: 02-22-2023 Office outpatient vi sit 25 minutes Modesto Chavarria [facility] Start: 02-22-2023 Telephone encounter Modesto TLELO [facility] Start: 02-22-2023 End: 02-23-[address] MODESTO CHAVARRIA [facility] [employer] Other Start: 02-21-2023 End: 03-18-2023 ambulatory SHAIKH Shady MCCURDY Facility:[facility] Start: 01-19-2023 End: 02-18-2023 ambulatory SHAIKH Shady MCCURDY Facility:[facility] Start: 12-22-2022 End: 01-19-[address] MODESTO CHAVARRIA Facility:[facility] Start: 11-22-2022 End: 12-22-[address] MODESTO CHAVARRIA Facility:[facility] Start: 11-01-2022 End: 11-02-[address] MODESTO CHAVARRIA Facility:[facility] Start: 11-01-2022 Encounter for genera l adult medical examination without abnormal findings DR MODESTO CHAVARRIA [facility] Start: 10-28-2022 Adult health examination Wade Chavarria Other [facility] [employer] Other Start: 10-28-2022 End: 10-29-[address] MODESTO CHAVARRIA Facility:[facility] Start: 10-28-2022 End: 10-29-2022 Encounter for general adult medical examination without abnormal findings DR MODESTO CHAVARRIA Facility:[facility] Start: 10-21-2022 End: 11-21-[address] MODESTO CHAVARRIA Facility:[facility] Start: 09-30-[address] Modesto Chavarria Facility: Start: 09-21-2022 End: 10-20-[address] MODESTO CHAVARRIA Facility:[facility] Start: 09-02-2022 End: 09-02-[address] MODESTO CHAVARRIA Facility:[facility] Start: 08-24-2022 End: 08-24-2022 Emergency department patient visit DO Modesto Chavarria Work Phone: [facility] Start: 08-22-2022 End: 09-20-[address] MODESTO CHAVARRIA Facility:[facility] Start: 07-22-2022 End: 08-21-[address] MODESTO CHAVARRIA Facility:[facility] Start: 07-09-[address] Modesto Chavarria Facility: Start: 07-03-[address] Modesto Chavarria Facility:[id number] Start: 07-02-2022 Chart Update Modesto mcgill Work Phone: [facility] DO Work Phone: Start: 07-02-[address] Lalito Silva II Facility:[id number] Start: 07-02-2022 End: 07-03-2022 Evaluation and management of inpatient DO Modesto Chavarria Work Phone: [facility] [place] [facility] Start: 07-01-[address] Modesto Chavarria Facility: Start: 07-01-[address] Milo Cameron Facility: Start: 06-21-2022 End: 07-21-2022 ambulatory SHAIKH Shady MCCURDY Facility:[facility] Start: 06-15-2022 Office outpatient vi sit 25 minutes Modesto Chavarria Work Phone: [facility] 250 DO Work Phone: Start: 06-15-[address] Lalito Silva II Facility: Start: 05-21-2022 End: 06-18-2022 ambulatory RAYMOND Shady LEOMichelle Facility:[facility]1 Start: 03-16-2022 Office outpatient vi sit 25 minutes Modesto Chavarria Work Phone: [facility] DO Work Phone: Start: 01-21-2022 Chart Update Modesto mcgill Work Phone: [facility] DO Work Phone: Start: 12-04-2021 Patient encounter procedure Modesto Chavarria Work Phone: [facility] [facility] 250 DO Work Phone: Start: 09-30-2021 Message Modesto mcgill Work Phone: [facility] 250 DO Work Phone: Start: 09-29-2021 Chart Update Modesto mcgill Work Phone: [facility] 250 DO Work Phone: Start: 09-18-2021 Patient encounter procedure Modesto Chavarria Work Phone: [facility] 600 DO Work Phone: Start: 09-07-2021 Rx Renewal Modesto E Bal l Work Phone: [facility] [employer] 250 DO Work Phone: Start: 09-07-2021 Office outpatient vi sit 25 minutes Modesto Chavarria Work Phone: [facility] [employer] 250 DO Work Phone: Start: 09-24-2019 Encounter for other preprocedural examination Modesto Chavarria Other [employer] Other Start: 09-24-2019 Encounter for preprocedural cardiovascular examination Modesto Chavarria Other [employer] Other Start: 09-24-2019 Pre-procedure evalua tion check Modesto Chavarria Other [employer] Other Start: 09-24-2019 Preoperative cardiovascular examination Modesto Chavarria Other [employer] Other Start: 06-08-2017 End: 06-09-2017 Ambulatory DEFAULT PHYSICIAN Facility:[facility] Preoperative state Modesto Moore Ba ll Work Phone: [facility] [employer] 600 DO Work Phone: Procedures Date Procedure Procedure Detail Performing Clinician Start: 06-18-2024 CT of abdomen and pe lvis without contrast DO Modesto Ball Work Phone: Start: 06-18-2024 Plain chest X-ray DO Be njamin Ball Work Phone: Start: 06-18-2024 SARS-CoV-2, Influenz a & RSV (PCR) DO [employer] Work Phone: Start: 04-23-2024 Diagnostic radiograp hy of abdomen DO [employer] Work Phone: Start: 08-24-2022 CT cervical spine wi thout contrast DO Modesto [employer] Work Phone: Start: 08-24-2022 CT of head without contrast DO Modesto [employer] Work Phone: Start: 08-24-2022 Plain chest X-ray DO Be njamin Ball Work Phone: Start: 07-03-2022 Plain chest X-ray DO Be njamin Ball Work Phone: Start: 07-02-2022 Plain chest X-ray DO Be njamin Ball Work Phone: Start: 07-02-2022 Implantation of card iac pacemaker DO Modesto Chavarria Work Phone: Start: 12-23-2015 Screening for malign ant neoplasm of colon Modesto Chavarria Other Start: 11-21-2005 Total colonoscopy Wade nikolay E Ariel Work Phone: Amputation of hand, thumb or finger Modesto E Ariel Work Phone: Arthroplasty of knee Arnulfo n E Ariel Work Phone: Cataract surgery Modesto E Ariel Work Phone: Cystoscopy Modesto E Ariel Work Phone: Dental surgical procedure Be njtiara E Ariel Work Phone: Depression screening Arnulfo n Ariel Other Hemorrhoidectomy Modesto E Ariel Work Phone: Insertion of pacemak er pulse generator Modesto E Ariel Work Phone: Lithotripsy Modesto E Ariel Work Phone: Pyloromyotomy Modesto Moore Bal l Work Phone: Radical orchiectomy Modesto E Ariel Work Phone: Repair of cystocele Modesto E Ball Work Phone: Repair of shoulder Modesto E Ball Work Phone: Repair of umbilical hernia B enjamin E Ball Work Phone: SARS Antigen (LFIA) DO Wade min Ball Work Phone: SARS Antigen (LFIA) DO Wade min Ball Work Phone: Screening for malign ant neoplasm of prostate Modesto Chavarria Other Plan of Treatment Date Care Activity Detail Author Start: 08-24-2032 DTaP/Tdap/Td Vaccine s (5 - Td or Tdap) DTaP/Tdap/Td Vaccines (5 - Td or Tdap) [facility] Start: 08-24-2032 DTaP/Tdap/Td Vaccine s (7 - Td or Tdap) DTaP/Tdap/Td Vaccines (7 - Td or Tdap) [facility] Start: 10-25-2024 End: 10-25-2024 Patient encounter procedure 10/25/2024 3:00 PM EST Office Visit [facility] [address] [facility] [address] [place] [id number] Michael Mullen MD [address] [facility] [address] [place] [address] [facility] Start: 06-22-2024 [facility] Start: 06-19-2024 aPTT in Platelet poo r plasma by Coagulation assay [facility] Start: 06-19-2024 [facility] Start: 06-18-2024 End: 06-18-2024 [facility] Start: 06-18-2024 Physical therapy procedure [facility] Start: 06-18-2024 Referral to occupati onal therapist [facility] Start: 06-18-2024 Hospital admission [place] Start: 04-23-2024 End: 04-23-2025 Comprehensive metabolic 2000 panel - Serum or Plasma Comprehensive Metabolic Panel Lab Routine Essential hypertension, benign Expected: 04/23/2024 (Approximate), Expires: 04/23/2025 [facility] Service Area Work Phone: Comment on above: Expected: 04/23/2024 (Approximate), Expires: 04/23/2025 Start: 04-23-2024 End: 04-23-2025 Natriuretic peptide B [Mass/volume] in Blood B-Type Natriuretic Peptide Lab Routine SOB (shortness of breath) on exertion Expected: 04/23/2024 (Approximate), Expires: 04/23/2025 [facility] Work Phone: Comment on above: Expected: 04/23/2024 (Approximate), Expires: 04/23/2025 Start: 04-20-2024 End: 04-20-2024 Patient encounter procedure 04/20/2024 2:40 PM EDT Office Visit [facility] [address] [place] [phone] Lalito Silva MD [address] [place] [address] [facility] Start: 10-29-2023 Medicare Annual Well ness Visit Medicare Annual Wellness Visit (AWV) [facility] Start: 10-07-2023 FUV, Provider: Lalito Silva, Status: Pen, Time: 2:50 PM FUV, Provider: Lalito Silva, Status: Pen, Time: 2:50 PM [facility] 250 DO Work Phone: Start: 07-22-2023 COVID-19 Vaccine ( season) COVID-19 Vaccine ( season) [facility] Start: 07-22-2023 Influenza vaccination Influenza Vacc ine (#1) [facility] Start: 05-27-2023 [facility] Start: 05-26-2023 [facility] Start: 05-25-2023 [facility] Start: 05-24-2023 [facility] Start: 05-23-2023 [facility] Start: 05-22-2023 [facility] Start: 05-21-2023 [facility] Start: 05-20-2023 [facility] Start: 05-19-2023 [facility] Start: 05-18-2023 [facility] Start: 05-17-2023 [facility] Start: 05-16-2023 [facility] Start: 05-15-2023 [facility] Start: 05-14-2023 Referral to loss prevention and safety manager [facility] Start: 05-14-2023 Physical therapy procedure [facility] Start: 05-14-2023 Referral to occupati onal therapist [facility] Start: 05-14-2023 Hospital admission [place] Start: 05-14-2023 End: 05-14-2023 [facility] Start: 05-14-2023 CT cervical spine without contrast CT cervical spine wo con [facility] Start: 05-14-2023 CT Cervical spine WO contrast [facility] Start: 05-14-2023 CT of head without contrast CT head/brain wo con [facility] Start: 05-14-2023 CT Unspecified body region WO contrast [facility] Start: 05-14-2023 CT Chest WO contrast Fi [facility] Start: 05-14-2023 CT of chest without contrast CT chest wo con [facility] Start: 03-08-2023 FUV, Provider: Lalito Silva, Status: Pen, Time: 9:10 AM FUV, Provider: Lalito Silva, Status: Pen, Time: 9:10 AM [facility] 250 DO Work Phone: Start: 10-17-2022 COVID-19 Vaccine (5 - Pfizer series) COVID-19 Vaccine (5 - Pfizer series) [facility] Start: 08-24-2022 [facility] Start: 07-09-2022 CRISTOFER, Provider : LINDA TRACY DIRECT SELLING COUNSELOR 1,[id number], Status: Pen, Time: 9:30 AM CRISTOFER, Provider: LINDA TRACY DIRECT SELLING COUNSELOR 1,[id number], Status: Pen, Time: 9:30 AM [facility] 250 DO Work Phone: Start: 07-03-2022 [facility] Start: 07-02-2022 End: 07-02-2022 [facility] Start: 07-02-2022 Insertion of Pacemak er Lead into Right Ventricle, Percutaneous Approach Insertion of Pacemaker Lead into Right Ventricle, Percutaneous Approach [facility] Start: 07-02-2022 Insertion of Pacemak er, Single Chamber into Chest Subcutaneous Tissue and Fascia, Percutaneous Approach Insertion of Pacemaker, Single Chamber into Chest Subcutaneous Tissue and Fascia, Percutaneous Approach [facility] Start: 06-15-2022 FUV, Provider: Lalito Silva, Status: Pen, Time: 11:30 AM FUV, Provider: Lalito Silva, Status: Pen, Time: 11:30 AM -[facility] 250 DO Work Phone: Start: 03-16-2022 FUV, Provider: Lalito Silva, Status: Pen, Time: 8:40 AM FUV, Provider: Lalito Silva, Status: Pen, Time: 8:40 AM -[facility] 250 DO Work Phone: Start: 02-09-2022 Glaucoma screening Diabetes: R etinopathy Screening [facility] Start: 09-22-2021 [facility], Provider: Naeem Ronquillo, Status: Pen, Time: 1:00 PM [facility], Provider: Naeem Ronquillo, Status: Pen, Time: 1:00 PM -[facility] 600 DO Work Phone: Start: 11-21-2017 Pneumococcal Vaccine : 65+ Years (2 - PCV) Pneumococcal Vaccine: 65+ Years (2 - PCV) [facility] Start: 2005 RSV patient s and/or patients aged 60+ years (1 - 1-dose 60+ series) RSV patients and/or patients aged 60+ years (1 - 1-dose 60+ series) [facility] Start: 1995 Zoster Vaccines (1 of 2) Zoste r Vaccines (1 of 2) [facility] Start: 1964 Urine screening for protein Diabetes: Urine Protein Screening [facility] Start: 1963 Hepatitis C screening Hepatitis C Sc reening [facility] Start: 1955 Diabetic foot examination Diabetes: Foot Exam [facility] Start: 1945 Hemoglobin A1c measurement Diabetes: Hemoglobin A1C [facility] Start: 1945 Lipid panel Lipid Panel [facility] Start: 1945 Medicare Annual Well ness Visit Medicare Annual Wellness Visit (AWV) [facility] Albumin/Globulin ratio [facility] Anion gap measurement [facility] Basophils [#/volume] in Blood by Automated count [facility] Basophils/100 leukoc ytes in Blood by Automated count [facility] Eosinophils [#/volum e] in Blood [facility] Eosinophils/100 leukocytes in Blood by Automated count [facility] Erythrocyte distribu tion width [Ratio] by Automated count [facility] Erythrocytes [#/volu me] in Blood [facility] Globulin [Mass/volum e] in Serum [facility] Hematocrit [Volume Fraction] of Blood [facility] Hemoglobin [Mass/vol ume] in Blood [facility] Leukocytes [#/volume ] corrected for nucleated erythrocytes in Blood by Automated coun [facility] Leukocytes [#/volume ] in Blood [facility] Lymphocytes [#/volum e] in Blood by Automated count [facility] Lymphocytes/100 leukocytes in Blood by Automated count [facility] MCH [Entitic mass] b y Automated count [facility] MCHC [Mass/volume] b y Automated count [facility] MCV [Entitic volume] by Automated count [facility] Monocytes [#/volume] in Blood by Automated count [facility] Monocytes/100 leukoc ytes in Blood by Automated count [facility] Neutrophils [#/volum e] in Blood by Automated count [facility] Neutrophils/100 leukocytes in Blood by Automated count [facility] Nucleated erythrocyt es [Presence] in Blood by Automated count [facility] Patient Education Concussion, Ad ult (DC) Laceration Repair With Stitches (DC) [facility] Work Phone: Patient referral [facility] Work Phone: Platelet mean volume [Entitic volume] in Blood by Automated count [facility] Platelets [#/volume] in Blood [facility] SARS-CoV-2 (COVID-19 ) N gene [Presence] in Respiratory specimen by NA with probe detection [facility] Work Phone: Immunizations Immunization Date Immunization Notes Care Provider Carla mccarthy 09-23-2023 influenza virus vaccine, unspecified formulation [facility] 09-23-2023 influenza, high dose seasonal, preservative-free Modesto Chavarria Other [employer] Other 08-24-2022 tetanus toxoid, redu siri diphtheria toxoid, and acellular pertussis vaccine, adsorbed DO Modesto Ariel Work Phone: [facility] 08-22-2022 COVID-19 Vaccine Pfi zer - Documentation Purposes Only Modesto Chavarria Other [facility] [employer] Other 08-22-2022 diphtheria, tetanus toxoids and acellular pertussis vaccine, unspecified formulation Modesto Ariel Other [facility] 08-22-2022 Fluzone High-Dose Quadrivalent 0.7 ML Intramuscular Suspension Prefilled Syringe Modesto Chavarria Work Phone: [facility] 250 DO Work Phone: 08-22-2022 influenza virus vaccine, split virus (incl. purified surface antigen) Modesto Ariel Other [facility] [employer] Other 08-22-2022 influenza, high dose seasonal, preservative-free Lalito Silva MD Work Phone: [facility] Work Phone: 08-22-2022 Pfizer COVID-19 Vac Bivalent 30 MCG/0.3ML Intramuscular Suspension Modesto Chavarria Work Phone: [facility] 250 DO Work Phone: 08-22-2022 influenza virus vaccine, unspecified formulation Lalito Silva MD Work Phone: [facility] 02-02-2022 diphtheria, tetanus toxoids and pertussis vaccine Modesto Chavarria Work Phone: [facility] 02-02-2022 tetanus toxoid, redu siri diphtheria toxoid, and acellular pertussis vaccine, adsorbed Lalito Silva MD Work Phone: [facility] Work Phone: 08-26-2021 Pfizer-BioNTivWatch COVID-19 Vacc 30 MCG/0.3ML Intramuscular Suspension Modesto Chavarria Work Phone: [facility] DO Work Phone: 08-21-2021 influenza virus vaccine, split virus (incl. purified surface antigen) Modesto Chavarria Other [facility] [employer] Other 08-21-2021 influenza virus vaccine, unspecified formulation [facility] 08-07-2021 influenza virus vaccine, unspecified formulation Lalito Silva MD Work Phone: [facility] Work Phone: 08-07-2021 influenza, injectabl e, quadrivalent, contains preservative Modesto Chavarria Work Phone: [facility] DO Work Phone: Comment on above: Series: 01-12-2021 Pfizer-BioNTech COVID-19 Vacc 30 MCG/0.3ML Intramuscular Suspension Modesto Chavarria Work Phone: [facility] [employer] [facility] DO Work Phone: 12-22-2020 Pfizer-BioNTech COVID-19 Vacc 30 MCG/0.3ML Intramuscular Suspension Modesto Chavarria Work Phone: [facility] [employer] [facility] DO Work Phone: 07-29-2020 influenza virus vaccine, split virus (incl. purified surface antigen) Modesto Chavarria Other [facility] [employer] Other 07-29-2020 influenza virus vaccine, unspecified formulation [facility] 07-22-2020 influenza, seasonal, injectable Modesto Chavarria Work Phone: [facility] DO Work Phone: 09-14-2019 influenza virus vaccine, split virus (incl. purified surface antigen) Modesto Chavarria Other [facility] [employer] Other 09-14-2019 influenza virus vaccine, unspecified formulation [facility] 08-21-2019 influenza virus vaccine, unspecified formulation Modesto Chavarria Work Phone: [facility] [employer] [facility] DO Work Phone: 04-29-2019 tetanus toxoid, redu siri diphtheria toxoid, and acellular pertussis vaccine, adsorbed Lalito Silva MD Work Phone: [facility] Work Phone: 04-28-2019 diphtheria, tetanus toxoids and acellular pertussis vaccine, unspecified formulation Modesto Chavarria Other [facility] 08-21-2018 influenza virus vaccine, unspecified formulation Modesto Chavarria [facility] Phone[facility] DO Work Phone: 08-10-2018 influenza virus vaccine, split virus (incl. purified surface antigen) Modesto Chavarria Other [facility] [employer] Other 08-10-2018 influenza virus vaccine, unspecified formulation [facility] 08-10-2018 Seasonal trivalent influenza vaccine, adjuvanted, preservative free Modesto Chavarria Work [facility]: [facility] Work Phone: 08-09-2017 influenza virus vaccine, split virus (incl. purified surface antigen) Modesto Chavarria Other [facility] [employer] Other 08-09-2017 influenza virus vaccine, unspecified formulation [facility] 08-09-2017 influenza, high dose seasonal, preservative-free Modesto Chavarria Work Phone: [facility] [employer] DO Work Phone: 11-21-2016 influenza virus vaccine, unspecified formulation Modesto Chavarria Work Phone: [facility] DO Work Phone: 11-21-2016 pneumococcal polysaccharide vaccine, 23 valent Modesto Oscar Ariel Work Phone: [facility] Work Phone: 08-05-2016 influenza virus vaccine, split virus (incl. purified surface antigen) Modesto Chavarria Other [facility] [employer] Other 08-05-2016 influenza virus vaccine, unspecified formulation [facility] 08-05-2016 pneumococcal conjuga te vaccine, 13 valent Modesto Chavarria Other [facility] 08-15-2014 tetanus and diphther ia toxoids, adsorbed, preservative free, for adult use (5 Lf of tetanus toxoid and 2 Lf of diphtheria toxoid) Modesto Chavarria Other [facility] 12-11-2013 pneumococcal polysaccharide vaccine, 23 valent Modesto Ariel Other [facility] 08-01-2013 tetanus and diphther ia toxoids, adsorbed, preservative free, for adult use (5 Lf of tetanus toxoid and 2 Lf of diphtheria toxoid) Modesto Ariel Other [facility] Payers Date Payer Category Payer Self-pay [id number] 2008 Medicare [id number] 1959 Medicare [id number] 1959 Unknown [id number] 1945 Unknown [id number] 2.16.84 0.1.572675.3.579.2.593 1945 Unknown [id number] 2.16.84 0.1.157402.3.579.2.593 1945 Unknown [id number] 2.16.84 0.1.175097.3.579.2.593 1945 Unknown [id number] 2.16.84 0.1.144166.3.579.2.593 1945 Unknown [id number] 2.16.84 0.1.629417.3.579.2.593 1945 Unknown [id number] 2.16.84 0.1.029694.3.579.2.593 1945 Unknown [id number] 2.16.84 0.1.932044.3.579.2.593 1945 Unknown [id number] 2.16.84 0.1.618687.3.579.2.593 1945 Unknown [id number] 2.16.84 0.1.838233.3.579.2.593 1945 Unknown [id number] 2.16.84 0.1.448303.3.579.2.593 1945 Unknown [id number] 2.16.84 0.1.746584.3.579.2.593 1945 Unknown [id number] 2.16.84 0.1.689186.3.579.2.593 1945 Unknown [id number] 2.16.84 0.1.562632.3.579.2.593 1945 Unknown [id number] 2.16.84 0.1.001125.3.579.2.593 1945 Unknown [id number] 2.16.84 0.1.204421.3.579.2.593 1945 Unknown [id number] 2.16.84 0.1.634927.3.579.2.593 1945 Unknown [id number] 2.16.84 0.1.823035.3.579.2.593 1945 Unknown [id number] 2.16. 840.1.630246.3.579.2.356 1945 Unknown [id number] 2.16. 840.1.533773.3.579.2.356 1945 Unknown [id number] 2.16. 840.1.558100.3.579.2.356 1945 Unknown [id number] 2.16. 840.1.922163.3.579.2.356 1945 Unknown [id number] 2.16. 840.1.912913.3.579.2.356 1945 Unknown [id number] 2.16. 840.1.533596.3.579.2.356 1945 Unknown [id number] 2.16. 840.1.605559.3.579.2.356 1945 Unknown [id number] 2.16. 840.1.633913.3.579.2.356 1945 Unknown [id number] 2.16. 840.1.644266.3.579.2.356 1945 Unknown [id number] 2.16. 840.1.203975.3.579.2.356 1945 Unknown [id number] 2.16. 840.1.152099.3.579.2.356 1945 Unknown [id number] 2.16. 840.1.062392.3.579.2.356 1945 Unknown [id number] 2.16. 840.1.279284.3.579.2.356 1945 Unknown [id number] 2.16.8 40.1.135653.3.579.2.1244 1945 Unknown [id number] 2.16.8 40.1.763748.3.579.2.1244 1945 Unknown [id number] 2.16.8 40.1.106085.3.579.2.727 1945 Unknown [id number] 2.16.8 40.1.141580.3.579.2.727 1945 Unknown [id number] 2.16.8 40.1.117479.3.579.2.727 1945 Unknown [id number] 2.16.8 40.1.056149.3.579.2.727 Unknown Unknown [facility] Health Claims [id number] Unknown [id number] Unknown [id number] 2.16.8 40.1.474256.3.579.2.531 Unknown [id number] 2.16.8 40.1.321374.3.579.2.531 Social History Date Type Detail Facility Start: 10-06-2023 End: 04-23-2024 No illicit drug use No illicit drug use [facility] 250 DO Work Phone: Comment on above: QUIT 1996; Start: 07-02-2022 End: 06-18-2024 Tobacco smoking status [facility] Ex-smoker (finding) [facility] Start: 1945 Sex Assigned At Male [facility] Start: 08-24-2022 Tobacco smoking status [facility] Tobacco smoking consumption unknown (finding) [facility] Start: 10-06-2023 End: 04-23-2024 Sex Assigned At [facility] [employer] Other History of tobacco use Current smoker [facility] Work Phone: History of tobacco use Cigarette Smoker [facility] Work Phone: Start: 10-07-2023 End: 04-23-2024 Alcohol intake Current drinker of alcohol (finding) [facility] Work Phone: Start: 10-06-20[address] Alcohol [address] [facility] Work Phone: Start: 1945 Sex Assigned At Not on file [facility] Work Phone: Start: 09-27-2023 End: 04-23-2024 Exposure to SARS-CoV-2 (event) Not sure [facility] Start: 06-19-2024 Tobacco smoking status NHIS Never smoked tobacco (finding) [facility] Medical Equipment Procedure Code Equipment Code Equipment Origin al Text Equipment Identifier Dates Insertion, pacemaker Endocardial pacing lead [id number] FDA Start: 07-02-2022 Insertion, pacemaker Single-chamber implantable pacemaker, rate-responsive [id number] FDA Start: 07-02-2022 Pen Needle, Diab etic (Bd Ultra-Fine Cindy Pen Needle) 32 gauge x 5/32 needle Start: 03-26-2024 Pen Needle, Diab etic (Bd Ultra-Fine Cindy Pen Needle) 32 gauge x 5/32 needle Start: 03-26-2024 Pen Needle, Diab etic (Bd Ultra-Fine Cindy Pen Needle) 32 gauge x 5/32 needle Start: 03-26-2024 Pen Needle, Diab etic (Bd Ultra-Fine Cindy Pen Needle) 32 gauge x 5/32 needle Start: 03-26-2024 Goals Date Patient Goal Desired Activity /State Functional Status Date Assessment Result Facility 06-22-2024 Functional status Patient at Baseline [facility] Work Phone: 07-03-2022 Functional status Patient is Pro gressing Toward [facility] Work Phone: Mental Status Date Assessment Result Facility 06-22-2024 Cognitive function Cognitive Sta tus Patient at Baseline [facility] Work Phone: 07-03-2022 Cognitive function Cognitive Sta tus Patient at Baseline [facility] Work Phone: Clinical Notes 02-22-2023 to 06-21-2024 Note Date & Type Note Facility 06-21-2024 Progress note Note Date/Time June 21, 2024 1:42pm [facility] [address] [place], [place] [id number] Hospitalist Progress Note Signed Patient: Nirmal Chaidez MR#: [id number] : 1945 Acct:[id number] Age/Sex: 78 / M Adm Date: 4 Loc: 3T Room: [address] [place] [address] Type: ADM IN Attending Dr: Stalin Miranda MD Copies to: ~ Date of Service: 06/21/2024 Subjective Subjective Narrative: Patient feeling well today. Blood pressure is significantly improved. He denies any dizziness or lightheadedness complaints. He is eating well on my assessment of him at bedside. Exam Physical Exam Vital Signs: Temp Pulse Resp BP Pulse Ox O2 Del Method FiO2 97.5 F L 60 18 136/85 95 Room Air 06/21/24 11:21 06/21/24 11:21 06/21/24 11:21 06/21/24 11:21 06/21/24 11:06/21/24 11:21 06/18/24 23:31 Narrative: Constitutional: Obese WM, resting in bed comfortably HEENT: Dry mucous membranes, neck supple Cardiovascular: Normal rate, irregular rhythm, no JVD Respiratory: Lungs clear to auscultation bilaterally, no wheezes, rales or rhonchi GI: Soft, NTND, normoactive bowel sounds : Deferred Neuro: AAO x3, no focal deficits. CN III-XII grossly intact, Strength 5/5 throughout Extremities: No clubbing, cyanosis or edema. Hyperpigmentation noted in the bilateral lower extremities distally. Psych: Patient calm, cooperative and conversant Objective Lab Results 06/21/24 06:04 06/21/24 06:04 Meds Allergies and Active Meds Allergies metformin Allergy (Unknown, Verified 03/26/24 14:21) Unknown Reaction Penicillins Allergy (Unknown, Verified 06/18/24 15:50) Unknown Reaction Active Meds: Active Medications Generic Name Dose Route Start Last Admin Trade Name Freq PRN Reason Stop Dose Admin Acetaminophen 650 mg 06/18/24 21:49 06/20/24 11:39 Acetaminophen 325 Mg Tablet PO 06/18/25 21:48 650 mg Q6HR PRN Administration Pain Scale 1 - 3 or fever Allopurinol 300 mg 06/19/24 09:00 06/21/24 09:06 Allopurinol 300 Mg Tablet PO 06/19/25 08:59 300 mg DAILY KAYKAY Administration Citalopram Hydrobromide 20 mg 06/18/24 22:00 06/20/24 21:13 Citalopram 20 Mg Tablet PO 06/18/25 21:59 20 mg QHS KAYKAY Administration Cyanocobalamin 1,000 mcg 06/20/24 09:00 06/21/24 09:06 Cyanocobalamin 1,000 Mcg Tablet PO 06/20/25 08:59 1,000 mcg QAM KAYKAY Administration Insulin Glargine 10 units 06/19/24 21:00 06/20/24 21:13 Insulin Glargine 300 Units/3 Ml Insuln.Pen SUBCUT 06/19/25 20:59 10 units QPM KAYKAY Administration Semaglutide 1.2 Mg/0 1.2 mg 06/20/24 14:00 06/20/24 13:15 .33 Ml Prefilled SUBCUT 06/20/25 13:59 1.2 mg Injectable Syringe WE@[id number] KAYKAY Administration Ondansetron HCl 4 mg 06/18/24 21:49 Ondansetron 4 Mg/2 Ml Vial IV-PUSH 06/18/25 21:48 Q8H PRN Nausea And Vomiting Potassium Chloride 40 meq 06/18/24 21:49 Potassium Chloride Er 20 Meq Tab.Er.Prt PO 06/18/25 21:48 DAILY PRN Hypokalemia Pravastatin Sodium 40 mg 06/19/24 09:00 06/21/24 09:06 Pravastatin 40 Mg Tablet PO 06/19/25 08:59 40 mg DAILY KAYKAY Administration Sodium Chloride 0 ml 06/18/24 15:48 06/19/24 21:11 Sodium Chloride 0.9 % 10 Ml Syringe IV-PUSH 06/18/25 15:47 10 ml PRN PRN Administration Flush Vitamin D 125 mcg 06/19/24 09:00 06/21/24 09:06 Cholecalciferol 125 Mcg (5,000 Units) Capsule PO 06/19/25 08:59 125 mcg DAILY KAYKAY Administration Warfarin Sodium 1 each 06/18/24 21:58 Warfarin - Pharmacy Dosing MISCELLANE 06/18/25 21:57 ONCE PRN ZZ.Pharmacy Consult Protocol Warfarin Sodium 4 mg 06/21/24 17:00 Warfarin 4 Mg Tablet PO 06/21/24 17:01 ONCE ONE A&P - Hospitalist Assessment/Plan (1) Pre-syncope: (2) Nausea & vomiting: Plan Pre-Syncope Fall History of complete heart block status post pacemaker Elevated troponin T wave inversions on EKG Patient did appear volume-depleted on presentation, but orthostatics negative. He is now euvolemic and blood pressures are in the normal range. Does have history of heart block, with pacemaker in place. EKG notes rate-controlled A-fib. Interrogated pacemaker reportedly has no events -Monitor on telemetry -Appreciate cardiology assessment -Hold all antihypertensives-amlodipine, torsemide, lisinopril?HCTZ-will reinitiate slowly as tolerated -Replete B12 -Cont physical and Occupational Therapy -Plan for discharge to SNF tomorrow Nausea/vomiting Resolved. Approximately 1 to 2 days. Suspect a viral gastroenteritis given that symptoms have resolved. -Encourage oral hydration, no need for further IV hydration -Antiemetics as needed Elevated creatinine, chronic kidney disease Holding home amlodipine, lisinopril?HCTZ and torsemide -Finished IV hydration -Monitor BMP closely -Encourage p.o. hydration -Hold home diuretics and BP meds at this time Recurrent atrial fibrillation-history of cardioversion. Remains in rate controlled A-fib. -Continue anticoagulation DM2 -Continue Lantus, Ozempic Other chronic medical conditions noted below, continue home regimens unless otherwise specified: COPD HTN Gout Depressive disorder NOS Hyperlipidemia QUETA CAD s/p Stent CODE STATUS: Full code Documented By: Stalin Miranda MD [id number] Signed By: <Electronically signed by Stalin Miranda MD> 06/21/24 [address] [facility] Work Phone: 1(552) 945-376307-31-2024 Progress note Author Stalin Miranda [facility] June 20, 2024 1:50pm Note Date/Time June 20, 2024 1:27 pm [facility] [address] [place] [address] Hospitalist Progress Note Signed Patient: Nirmal Chaidez MR#: [id number] : 1945 Acct:[id number] Age/Sex: 78 / M Adm Date: 4 Loc: 3T Room: [address] [place] [address] Type: ADM IN Attending Dr: Stalin Miranda MD Copies to: ~ Date of Service: 06/20/2024 Subjective Subjective Narrative: Patient seen and assessed with at bedside. Blood pressures have been in the low 100s throughout the day today. He denies any fever/chill, chest pain, nausea/vomiting or other symptoms at this time. They have talked to case management today and want to move forward with going to [facility]. [facility] need 2 additional midnights for patient to be approved for SNF. Exam Physical Exam Vital Signs: Temp Pulse Resp BP Pulse Ox O2 Del Method FiO2 98.4 F 58 L 20 93/60 L 94 L Room Air 06/20/24 11:41 06/20/24 11:41 06/20/24 11:41 06/20/24 11:41 06/20/24 11:41 06/20/24 11:41 06/18/24 23:31 Narrative: Constitutional: Obese WM, resting in bed comfortably HEENT: Dry mucous membranes, neck supple Cardiovascular: Normal rate, irregular rhythm, no JVD Respiratory: Lungs clear to auscultation bilaterally, no wheezes, rales or rhonchi GI: Soft, NTND, normoactive bowel sounds : Deferred Neuro: AAO x3, no focal deficits. CN III-XII grossly intact, Strength 5/5 throughout Extremities: No clubbing, cyanosis or edema. Hyperpigmentation noted in the bilateral lower extremities distally. Psych: Patient calm, cooperative and conversant Objective Lab Results 06/20/24 06:01 06/20/24 06:01 Meds Allergies and Active Meds Allergies metformin Allergy (Unknown, Verified 03/26/24 14:21) Unknown Reaction Penicillins Allergy (Unknown, Verified 06/18/24 15:50) Unknown Reaction Active Meds: Active Medications Generic Name Dose Route Start Last Admin Trade Name Freq PRN Reason Stop Dose Admin Acetaminophen 650 mg 06/18/24 21:49 06/20/24 11:39 Acetaminophen 325 Mg Tablet PO 06/18/25 21:48 650 mg Q6HR PRN Administration Pain Scale 1 - 3 or fever Allopurinol 300 mg 06/19/24 09:00 06/20/24 09:22 Allopurinol 300 Mg Tablet PO 06/19/25 08:59 300 mg DAILY KAYKAY Administration Citalopram Hydrobromide 20 mg 06/18/24 22:00 06/19/24 21:07 Citalopram 20 Mg Tablet PO 06/18/25 21:59 20 mg QHS KAYKAY Administration Cyanocobalamin 1,000 mcg 06/20/24 09:00 06/20/24 09:23 Cyanocobalamin 1,000 Mcg Tablet PO 06/20/25 08:59 1,000 mcg QAM KAYKAY Administration Lactated Ringer's 1,000 mls @ 75 mls/hr 06/19/24 19:45 06/20/24 11:39 Lactated Ringers IV 06/20/24 22:24 75 mls/hr .[id number] KAYKAY Administration Insulin Glargine 10 units 06/19/24 21:00 06/19/24 21:00 Insulin Glargine 300 Units/3 Ml Insuln.Pen SUBCUT 06/19/25 20:59 Not Given QPM KAYKAY Semaglutide 1.2 Mg/0 1.2 mg 06/20/24 14:00 06/20/24 13:15 .33 Ml Prefilled SUBCUT 06/20/25 13:59 1.2 mg Injectable Syringe WE@0900 KAYKAY Administration Ondansetron HCl 4 mg 06/18/24 21:49 Ondansetron 4 Mg/2 Ml Vial IV-PUSH 06/18/25 21:48 Q8H PRN Nausea And Vomiting Potassium Chloride 40 meq 06/18/24 21:49 Potassium Chloride Er 20 Meq Tab.Er.Prt PO 06/18/25 21:48 DAILY PRN Hypokalemia Pravastatin Sodium 40 mg 06/19/24 09:00 06/20/24 09:22 Pravastatin 40 Mg Tablet PO 06/19/25 08:59 40 mg DAILY KAYKAY Administration Sodium Chloride 0 ml 06/18/24 15:48 06/19/24 21:11 Sodium Chloride 0.9 % 10 Ml Syringe IV-PUSH 06/18/25 15:47 10 ml PRN PRN Administration Flush Vitamin D 125 mcg 06/19/24 09:00 06/20/24 09:22 Cholecalciferol 125 Mcg (5,000 Units) Capsule PO 06/19/25 08:59 125 mcg DAILY KAYKAY Administration Warfarin Sodium 1 each 06/18/24 21:58 Warfarin - Pharmacy Dosing MISCELLANE 06/18/25 21:57 ONCE PRN ZZ.Pharmacy Consult Protocol A&P - Hospitalist Assessment/Plan (1) Pre-syncope: (2) Nausea & vomiting: Plan Pre-Syncope Fall History of complete heart block status post pacemaker Elevated troponin T wave inversions on EKG Patient did appear volume-depleted on presentation, but orthostatics negative. He appears euvolemic at this time. Blood pressures are stable, patient does nothave a significant amount of hypotension. Does have history of heart block, withpacemaker in place. EKG notes rate-controlled A-fib. Interrogated pacemaker reportedly has no events -Monitor on telemetry -Appreciate cardiology assessment -Hold all antihypertensives-amlodipine, torsemide, lisinopril?HCTZ-will reinitiate slowly as tolerated -Replete B12 -Cont physical and Occupational Therapy Nausea/vomiting Approximately 1 to 2 days. Suspect a viral gastroenteritis given that symptoms have resolved. -Continue with further IV hydration overnight -Encourage oral hydration -Antiemetics as needed Elevated creatinine, chronic kidney disease Holding home amlodipine, lisinopril?HCTZ and torsemide -Finished IV hydration today -Monitor BMP closely -Encourage p.o. hydration -Hold home diuretics and BP meds at this time Recurrent atrial fibrillation-history of cardioversion. Remains in rate controlled A-fib. -Continue anticoagulation DM2 -Continue Lantus, Ozempic Other chronic medical conditions noted below, continue home regimens unless otherwise specified: COPD HTN Gout Depressive disorder NOS Hyperlipidemia QUETA CAD s/p Stent CODE STATUS: Full code Documented By: Stalin Miranda MD [id number] Signed By: <Electronically signed by Stalin Miranda MD> 06/20/24 [address] [facility] Work Phone: 1(180) 198-735107-31-2024 Progress note Author Michael Mullen [facility] June 20, 2024 11:29am Note Date/Time June 20, 2024 11:2 9am [facility] [address] [place] [address] Cardiology Progress Note Signed Patient: Nirmal Chaidez MR#: [id number] : 1945 Acct:[id number] Age/Sex: 78 / M Adm Date: 4 Loc: 3T Room: [address] [place] [address] Type: ADM IN Attending Dr: Stalin Miranda MD Copies to: ~ Date of Service: 06/20/2024 Subjective Interval history: Patient reported overall improvement. No further nausea or vomiting. Hemodynamically stable. Renal function is improving Exam Physical Exam Vital Signs: Temp Pulse Resp BP Pulse Ox O2 Del Method FiO2 97.4 F L 64 20 129/69 94 L Room Air 21 06/20/24 09:17 06/20/24 09:17 06/20/24 09:17 06/20/24 09:17 06/20/24 09:17 06/20/24 09:17 06/18/24 23:31 Eyes General: appearance normal, both eyes and all related structures Pupils: PERRL Neck Neck: normal visual inspection, supple and no lymphadenopathy noted Neck mass: No Thyroid: thyroid normal Carotids: normal carotid upstroke Chest Chest palpation & inspection: normal inspection of the chest Resp Effort & Inspection: normal respiratory effort Auscultation: clear to auscultation bilaterally Cardio Palpation: normal PMI Rate: regular rate Rhythm: regular rhythm and abnormal rhythm irregularly irregular Heart Sounds: S1 normal and S2 normal GI Palpation: soft and no hepatosplenomegaly Percussion: normal to percussion Auscultation: normal bowel sounds and other (Very mild lower abdominal tenderness) Skin General: no rashes or lesions noted and dry skin Neuro General: patient alert, patient awake, patient oriented x3, tone normal and moves all extremities Objective Labs 06/20/24 06:01 06/20/24 06:01 Labs: Laboratory Results - last 24 hr 06/19/24 06/19/24 06/19/24 11:54 16:22 20:37 Corrected WBC Uncorrected WBC Count RBC Hgb Hct MCV MCH MCHC RDW Plt Count MPV Neut % (Auto) Lymph % (Auto) [place] % (Auto) Eos % (Auto) Baso % (Auto) Nucleat RBC Rel Count Neut # (Auto) Lymph # (Auto) [place] # (Auto) Eos # (Auto) Baso # (Auto) PT INR PHA Creatinine Clear Sodium Potassium Chloride Carbon Dioxide Anion Gap BUN Creatinine Est GFR (CKD-EPI) Glucose POC Glucose 119 109 104 POC Glucose Comment Glu2: cleaned meter Glu2: cleaned meter Calcium 06/20/24 06/20/24 06:01 06:47 Corrected WBC 8.7 Uncorrected WBC Count 8.7 RBC 4.55 Hgb 12.6 L Hct 39.5 MCV 86.8 MCH 27.7 MCHC 31.9 L RDW 16.5 H Plt Count 232 MPV 8.1 Neut % (Auto) 70.3 Lymph % (Auto) 18.3 [place] % (Auto) 8.0 Eos % (Auto) 2.7 Baso % (Auto) 0.7 Nucleat RBC Rel Count 0.2 Neut # (Auto) 6.1 Lymph # (Auto) 1.6 [place] # (Auto) 0.7 Eos # (Auto) 0.2 Baso # (Auto) 0.1 PT 25.4 H INR 2.2 PHA Creatinine Clear 54.81 Sodium 133 L Potassium 3.9 Chloride 98 Carbon Dioxide 27.1 Anion Gap 11.8 BUN 40 H Creatinine 1.48 H Est GFR (CKD-EPI) 48.126 Glucose 128 H POC Glucose 130 POC Glucose Comment Calcium 9.0 A&P - Cardiology (1) Pre-syncope: Code(s): R55 - Syncope and collapse Plan Assessment 1. Presyncopal episode clearly due to dehydration and his GI symptomatology thepatient report nausea vomiting for several days. His renal function is worse than his baseline. Pacemaker check showed appropriate device function. Patientappears overall improving 2. Recurrent atrial fibrillation 3. Long-term anticoagulation due to atrial fibrillation 4. History of coronary artery disease with remote PCI to the left circumflex back in 2017 5. Trivial flat troponin elevation due to decreased renal clearance 6. Acute on chronic kidney injury due to dehydration. Improving 7. Obesity 8. Nausea and vomiting being addressed by the hospitalist service appears to beimproving Plan 1. Continue to hold antihypertensive medication for another day or 2 then can be resume when blood pressure improved hooves and the patient able to maintain good oral intake 2. Device check showed appropriate function 3. Continue to monitor for arrhythmia or hemodynamic instability 4. Device check demonstrate normal device function 5. Echocardiogram appears to be of poor quality 6. Patient can be transferred to rehab cardiac melendrez. I will follow on as-needed basis Documented By: Michael Mullen MD 06/20/241126 Signed By: <Electronically signed by MD Michael Mullen> 06/20/241128 [facility] Work Phone: 1(289) 795-938407-30-2024 [facility] June 19, 2024 8:14pm Note Date/Time June 19, 2024 7:37 pm [facility] [address] [place] [address] Hospitalist Progress Note Signed Patient: Nirmal Chaidez MR#: [id number] : 1945 Acct:[id number] Age/Sex: 78 / M Adm Date: 4 Loc: 3T Room: [address] [place] [address] Type: ADM IN Attending Dr: Stalin Miranda MD Copies to: ~ Date of Service: 06/19/2024 Subjective Subjective Narrative: Patient seen and assessed at bedside today. is at bedside. Patient is feeling reasonably well today. His appetite is improved and he does not have any nausea or episodes of vomiting today. Symptoms appear to largely have resolved. Blood pressures are improved today and patient is maintaining systolics in the low 100s. Patient was able to work with physical and Occupational Therapy. Actually states that patient going to a alf facility may be in his best interest, given that his functional status has declined over the last several months. Exam Physical Exam Vital Signs: Temp Pulse Resp BP Pulse Ox O2 Del Method FiO2 97.8 F 60 20 104/67 93 L Room Air 21 06/19/24 09:00 06/19/24 16:00 06/19/24 16:00 06/19/24 16:00 06/19/24 16:00 06/19/24 16:00 06/18/24 23:31 Narrative: Constitutional: Obese WM, resting in bed comfortably HEENT: Dry mucous membranes, neck supple Cardiovascular: Normal rate, irregular rhythm, no JVD Respiratory: Lungs clear to auscultation bilaterally, no wheezes, rales or rhonchi GI: Soft, NTND, normoactive bowel sounds : Deferred Neuro: AAO x3, no focal deficits. CN III-XII grossly intact, Strength 5/5 throughout Extremities: No clubbing, cyanosis or edema. Hyperpigmentation noted in the bilateral lower extremities distally. Psych: Patient calm, cooperative and conversant Objective Lab Results 06/19/24 07:46 06/19/24 07:46 Microbiology Results Microbiology 06/18/24 16:49 Nasopharyngeal SARS-CoV-2, Influenza & RSV (PCR) - Final Meds Allergies and Active Meds Allergies metformin Allergy (Unknown, Verified 03/26/24 14:21) Unknown Reaction Penicillins Allergy (Unknown, Verified 06/18/24 15:50) Unknown Reaction Active Meds: Active Medications Generic Name Dose Route Start Last Admin Trade Name Freq PRN Reason Stop Dose Admin Acetaminophen 650 mg 06/18/24 21:49 Acetaminophen 325 Mg Tablet PO 06/18/25 21:48 Q6HR PRN Pain Scale 1 - 3 or fever Allopurinol 300 mg 06/19/24 09:00 06/19/24 09:03 Allopurinol 300 Mg Tablet PO 06/19/25 08:59 300 mg DAILY KAYKAY Administration Citalopram Hydrobromide 20 mg 06/18/24 22:00 06/18/24 23:24 Citalopram 20 Mg Tablet PO 06/18/25 21:59 20 mg QHS KAYKAY Administration Insulin Glargine 10 units 06/19/24 21:00 Insulin Glargine 300 Units/3 Ml Insuln.Pen SUBCUT 06/19/25 20:59 QPM KAYKAY Ondansetron HCl 4 mg 06/18/24 21:49 Ondansetron 4 Mg/2 Ml Vial IV-PUSH 06/18/25 21:48 Q8H PRN Nausea And Vomiting Potassium Chloride 40 meq 06/18/24 21:49 Potassium Chloride Er 20 Meq Tab.Er.Prt PO 06/18/25 21:48 DAILY PRN Hypokalemia Pravastatin Sodium 40 mg 06/19/24 09:00 06/19/24 09:03 Pravastatin 40 Mg Tablet PO 06/19/25 08:59 40 mg DAILY KAYKAY Administration Sodium Chloride 0 ml 06/18/24 15:48 06/18/24 23:24 Sodium Chloride 0.9 % 10 Ml Syringe IV-PUSH 06/18/25 15:47 10 ml PRN PRN Administration Flush Vitamin D 125 mcg 06/19/24 09:00 06/19/24 09:03 Cholecalciferol 125 Mcg (5,000 Units) Capsule PO 06/19/25 08:59 125 mcg DAILY KAYKAY Administration Warfarin Sodium 1 each 06/18/24 21:58 Warfarin - Pharmacy Dosing MISCELLANE 06/18/25 21:57 ONCE PRN ZZ.Pharmacy Consult Protocol A&P - Hospitalist Assessment/Plan (1) Pre-syncope: (2) Nausea & vomiting: Plan Pre-Syncope Fall History of complete heart block status post pacemaker Elevated troponin T wave inversions on EKG Patient did appear volume depleted on presentation, but orthostatics negative. Blood pressures are slowly improved. Does have history of heart block, with pacemaker in place. EKG notes rate-controlled A-fib -Interrogate pacemaker -Monitor on telemetry -Appreciate cardiology assessment -Hold all antihypertensives-amlodipine, torsemide, lisinopril?HCTZ -Replete B12 -Cont physical and Occupational Therapy Nausea/vomiting Approximately 1 to 2 days. Suspect a viral gastroenteritis given that symptoms have resolved. -Continue with further IV hydration overnight -Encourage oral hydration Elevated creatinine, chronic kidney disease Holding home lisinopril?HCTZ and torsemide -Further 2 L IV hydration -Monitor BMP closely -Encourage p.o. hydration -Hold home diuretics and BP meds at this time Recurrent atrial fibrillation-history of cardioversion. Remains in rate controlled A-fib. -Continue anticoagulation Other chronic medical conditions noted below, continue home regimens unless otherwise specified: COPD HTN Gout Depressive disorder NOS Hyperlipidemia QUETA CAD s/p Stent CODE STATUS: Full code Documented By: Stalin Miranda MD [id number] Signed By: <Electronically signed by Stalin Miranda MD> 06/19/242013 [facility] Work Phone: 1(343) 250-465007-30-2024 Consult note Author Michael Mullen [facility] June 19, 2024 11:38am Note Date/Time June 19, 2024 11:3 4am [facility] [address] [place] [address] Cardiology Consult Note Signed Patient: Nirmal Chaidez MR#: [id number] : 1945 Acct:[id number] Age/Sex: 78 / M Adm Date: 4 Loc: 3T Room: [address] [place] [address] Type: ADM INOo Attending Dr: Stalin Miranda MD Copies to: DO Stalin Matos MD Mourhaf A Traboulssi, MD~ Cardiology HPI History of Present Illness Consult Date: 06/19/24 Reason for Consult: Syncope HPI: Mr. Chaidez is a 78 year old male well-known to our practice. He does not have history of atrial fibrillation with prior cardioversion, sick sinus syndrome with permanent pacemaker implantation, coronary artery disease with remote PCI to the left circumflex back in 2017 presented to the hospital with presyncopal episode. Patient report over the last few days he has not been feeling well. He had multiple episodes of nausea and vomiting. He was in the bathroom trying to get a shower. He felt lightheaded dizzy almost fell to the floor and almost passed out. He was brought to the here to the hospital and he continued to complain of nausea. He denies diarrhea. He had subjective chills but no fever. The patient was evaluated was noted to be borderline hypotensive with evidence of dehydration and acute kidney injury. The patient was started on IV hydration. He denies chest pain. He describes vague abdominal pain. Patient pacemaker check showed appropriate functioning pacemaker. His troponin was trivially elevated. Creatinine higher than baseline Review of Systems Review of Systems Review of systems: Review of system is negative other than mentioned above [facility] Medical History (Updated 06/18/24 @ 23:00 by Stalin Miranda MD) Kidney stones Pacemaker Atrial fibrillation Chronic kidney disease Major depression Type 2 diabetes mellitus with hyperglycemia Hypertension QUETA (obstructive sleep apnea) High cholesterol History of cardioversion Surgical History H/O heart artery stent Family History Father Cutaneous lymphoma Cancer Mother Heart disease Social History Smoking Status: Never smoker Tobacco Type: cigarettes Substance Use Type: None Meds Medications and Allergies Allergies metformin Allergy (Unknown, Verified 03/26/24 14:21) Unknown Reaction Penicillins Allergy (Unknown, Verified 06/18/24 15:50) Unknown Reaction Home Medications pravastatin 40 mg tablet 40 mg PO DAILY 04/26/18 [History Confirmed 06/18/24] allopurinol 300 mg tablet See Rx Instructions .Route .COMPLEX #90 tabs 02/28/24 [Rx Confirmed 06/18/24] amlodipine 5 mg tablet 5 mg PO DAILY 03/23/24 [History Confirmed 06/18/24] cholecalciferol (vitamin D3) 125 mcg (5,000 unit) capsule 125 mcg PO DAILY 03/23/24 [History Confirmed 06/18/24] warfarin 4 mg tablet 4 mg PO DAILY 03/23/24 [History Confirmed 06/18/24] insulin glargine 100 unit/mL (3 mL) subcutaneous pen (Lantus Solostar U-100 Insulin) 10 unit (0.1 mL) subcut QPM 30 days #3 mL 03/26/24 [Rx Confirmed 06/18/24] pen needle, diabetic 32 gauge x 5/32 (BD Ultra-Fine Cindy Pen Needle) See Rx Instructions miscellaneous .COMPLEX 30 days #50 ea 03/26/24 [Rx Confirmed 06/18/24] citalopram 20 mg tablet See Rx Instructions .Route .COMPLEX #90 tabs 03/30/24 [Rx Confirmed 06/18/24] lisinopril 20 mg-hydrochlorothiazide 12.5 mg tablet See Rx Instructions .Route .COMPLEX #180 tabs 05/29/24 [Rx Confirmed 06/18/24] ketoconazole 2 % topical cream 1 applic topical BID 06/18/24 [History Confirmed 06/18/24] nitroglycerin 0.4 mg sublingual tablet 0.4 mg sublingual Q5-15M PRN chest pain 06/18/24 [History Confirmed 06/18/24] potassium bicarbonate-citric acid 20 mEq effervescent tablet (Effer-K) 20 meq PODAILY 06/18/24 [History Confirmed 06/18/24] torsemide 10 mg tablet 10 mg PO DAILY 06/18/24 [History Confirmed 06/18/24] Exam Physical Exam Vital Signs: Temp Pulse Resp BP Pulse Ox O2 Del Method FiO2 97.8 F 65 20 105/69 95 Room Air 21 06/19/24 09:00 06/19/24 09:00 06/19/24 09:00 06/19/24 09:00 06/19/24 09:00 06/19/24 09:00 06/18/24 23:31 Const General: cooperative, comfortable, no acute distress and well developed Nutritional Appearance: obese HEENT Head: atraumatic Mouth: oral mucosae normal Eyes General: appearance normal, both eyes and all related structures Pupils: PERRL Neck Neck: normal visual inspection, supple and no lymphadenopathy noted Neck mass: No Thyroid: thyroid normal Carotids: normal carotid upstroke Chest Chest palpation & inspection: normal inspection of the chest Resp Effort & Inspection: normal respiratory effort Auscultation: clear to auscultation bilaterally Cardio Palpation: normal PMI Rate: regular rate Rhythm: regular rhythm and abnormal rhythm irregularly irregular Heart Sounds: S1 normal and S2 normal GI Palpation: soft and no hepatosplenomegaly Percussion: normal to percussion Auscultation: normal bowel sounds and other (Very mild lower abdominal tenderness) Skin General: no rashes or lesions noted and dry skin Neuro General: patient alert, patient awake, patient oriented x3, tone normal and moves all extremities Extrem General: full ROM, capillary refill normal and no clubbing, cyanosis or edema Psych Mental Status: mental status grossly normal Results - Cardiology Labs 06/19/24 07:46 06/19/24 07:46 Lab results: Cardiac Enzymes 06/18/24 Range/Units 15:52 AST 11 L (13-39) U/L B-Natriuretic Peptide 50.0 (5-100) pg/mL CBC 06/18/24 06/19/24 Range/Units 15:52 07:46 RBC 5.29 4.56 (3.90-5.60) X10E6/uL Hgb 14.7 12.8 L (13.0-17.0) g/dL Hct 45.6 39.1 (38.8-50.0) % Plt Count 255 219 (150-450) x10E3/uL Neut # (Auto) 8.6 H 6.8 (1.8-7.7) x10E3/uL Lymph # (Auto) 2.2 1.9 (1.00-4.8) x10E3/uL [place] # (Auto) 0.7 0.8 (0.0-0.8) x10E3/uL Eos # (Auto) 0.1 0.2 (0.0-0.45) x10E3/uL Baso # (Auto) 0.1 0.1 (0.0-0.2) x10E3/uL Comprehensive Metabolic Panel 06/18/24 06/19/24 Range/Units 15:52 07:46 Sodium 130 L 133 L (136-145) mmol/L Potassium 4.3 4.3 (3.5-5.1) mmol/L Chloride 93 L 98 (98-107) mmol/L Carbon Dioxide 25.8 29.8 (21.0-31.0) mmol/L BUN 41 H 47 H (7-25) mg/dL Creatinine 1.40 H 1.65 H (0.70-1.30) mg/dL Glucose 158 H 122 H (70-100) mg/dL Calcium 9.7 9.5 (8.6-10.3) mg/dL Direct Bilirubin 0.20 H (0.03-0.18) mg/dL Indirect Bilirubin 0.4 mg/dL AST 11 L (13-39) U/L ALT 8 (7-52) U/L Alkaline Phosphatase 85 (34-104) U/L Total Protein 7.4 (6.4-8.9) gm/dL Albumin 3.9 (3.5-5.7) gm/dL Intake and Output 06/18/24 06/19/24 06/19/24 23:59 07:59 15:59 Intake Total 500 / 500 200 / 200 Balance 500 / 500 200 / 200 Intake: IV 500 / 500 Sodium Chloride 0.9% 1,000 ml 500 / 500 500 ml @ 999 mls/hr IV .Q31M ONE Rx#:[id number] Oral 200 / 200 Other: # Voids 1 # Unmeasured Voids 1 Weight 142.1 kg 142.5 kg Date of Last Bowel Movement 06/18/24 Patient Weight 06/19/24 23:59 Weight 142.5 kg Lab 06/18/24 06/19/24 23:04 07:46 PT 28.6 H 27.1 H INR 2.5 2.4 APTT 38.4 H EKG Interpretations EKG Attestation EKG: I reviewed this ECG and interpreted as documented below: (EKG showed atrial fibrillation with nonspecific ST-T changes) A&P - Cardiology (1) Pre-syncope: Code(s): R55 - Syncope and collapse Plan Assessment 1. Presyncopal episode clearly due to dehydration and his GI symptomatology thepatient report nausea vomiting for several days. His renal function is worse than his baseline. Pacemaker check showed appropriate device function 2. Recurrent atrial fibrillation 3. Long-term anticoagulation due to atrial fibrillation 4. History of coronary artery disease with remote PCI to the left circumflex back in 2017 5. Trivial flat troponin elevation due to decreased renal clearance 6. Acute on chronic kidney injury due to dehydration 7. Obesity 8. Nausea and vomiting being addressed by the hospitalist service Plan 1. IV hydration 2. Workup for his GI symptomatology per the hospitalist service 3. Continue to monitor for arrhythmia or hemodynamic instability 4. Device check demonstrate normal device function 5. Check echocardiogram Documented By: Mcihael Mullen MD 06/19/24 1129 Signed By: <Electronically signed by MD Michael Mullen> 06/19/24 1138 [facility] Work Phone: 1(822) 691-190607-30-2024 History and physical note Author Stalin Miranda [facility] June 18, 2024 11:07pm Note Date/Time June 18, 2024 10:0 5pm [facility] [address] [place] [address] Hospitalist H&P Signed Patient: Nirmal Chaidez MR#: [id number] : 1945 Acct:[id number] Age/Sex: 78 / M Adm Date: 4 Loc: Room: [address] [place] [address] Type: ADM INOo Attending Dr: Stalin Miranda MD Copies to: DO Stalin Matos MD~ HPI DATE OF EXAMINATION: 06/18/24 CHIEF COMPLAINT: Presyncope, hypotension HISTORY OF PRESENT ILLNESS: Mr. Chaidez is a 70-year-old male with PMH of CAD status post stent, AV heart block status post pacemaker, HTN, HLD, COPD, A-fib on Coumadin who presents to the emergency department with presyncopal event. History obtained via physiciansignout and from patient, but patient having difficulty remembering the events of today. He was reportedly with his and taking a shower, the patient notes that his is always with him while he is in the shower due to falls hehas had in the past. Patient reportedly has had nausea and vomiting over the last 1 to 2 days. His appetite has not been at its normal level. He apparentlyhad a witnessed fall to the ground, and reportedly his lowered him to the ground, when he stated he was dizzy. Patient cannot remember whether or not he lost consciousness during this episode. In the emergency department, blood pressures were in the 90s/50s. Renal function appeared to be at patient's baseline. Patient has T wave inversions present in inferior leads on EKG. Initial troponins are near the upper limit ofnormal. Case was discussed between myself and ED attending and patient was admitted to hospitalist service for further management. Review of Systems Review of Systems Review of systems: 10 point ROS reviewed and is negative except for that which is noted above in HPI [facility] Medical History (Updated 06/18/24 @ 23:00 by Stalin Miranda MD) Kidney stones Pacemaker Atrial fibrillation Chronic kidney disease Major depression Type 2 diabetes mellitus with hyperglycemia Hypertension QUETA (obstructive sleep apnea) High cholesterol History of cardioversion Surgical History H/O heart artery stent Family History Father Cutaneous lymphoma Cancer Mother Heart disease Social History Smoking Status: Former smoker Tobacco Type: cigarettes Substance Use Type: Alcohol Meds Medications and Allergies Allergies metformin Allergy (Unknown, Verified 03/26/24 14:21) Unknown Reaction Penicillins Allergy (Unknown, Verified 06/18/24 15:50) Unknown Reaction Home Medications pravastatin 40 mg tablet 40 mg PO DAILY 04/26/18 [History Confirmed 06/18/24] allopurinol 300 mg tablet See Rx Instructions .Route .COMPLEX #90 tabs 02/28/24 [Rx Confirmed 06/18/24] amlodipine 5 mg tablet 5 mg PO DAILY 03/23/24 [History Confirmed 06/18/24] cholecalciferol (vitamin D3) 125 mcg (5,000 unit) capsule 125 mcg PO DAILY 03/23/24 [History Confirmed 06/18/24] warfarin 4 mg tablet 4 mg PO DAILY 03/23/24 [History Confirmed 06/18/24] insulin glargine 100 unit/mL (3 mL) subcutaneous pen (Lantus Solostar U-100 Insulin) 10 unit (0.1 mL) subcut QPM 30 days #3 mL 03/26/24 [Rx Confirmed 06/18/24] pen needle, diabetic 32 gauge x 5/32 (BD Ultra-Fine Cindy Pen Needle) See Rx Instructions miscellaneous .COMPLEX 30 days #50 ea 03/26/24 [Rx Confirmed 06/18/24] citalopram 20 mg tablet See Rx Instructions .Route .COMPLEX #90 tabs 03/30/24 [Rx Confirmed 06/18/24] lisinopril 20 mg-hydrochlorothiazide 12.5 mg tablet See Rx Instructions .Route .COMPLEX #180 tabs 05/29/24 [Rx Confirmed 06/18/24] ketoconazole 2 % topical cream 1 applic topical BID 06/18/24 [History Confirmed 06/18/24] nitroglycerin 0.4 mg sublingual tablet 0.4 mg sublingual Q5-15M PRN chest pain 06/18/24 [History Confirmed 06/18/24] potassium bicarbonate-citric acid 20 mEq effervescent tablet (Effer-K) 20 meq PODAILY 06/18/24 [History Confirmed 06/18/24] torsemide 10 mg tablet 10 mg PO DAILY 06/18/24 [History Confirmed 06/18/24] Exam Physical Exam Vital Signs: Temp Pulse Resp BP Pulse Ox O2 Del Method 98.8 F 65 14 96/54 L 96 Room Air 06/18/24 15:48 06/18/24 20:30 06/18/24 20:30 06/18/24 20:30 06/18/24 20:30 06/18/24 20:30 Narrative: Constitutional: Obese WM, resting in bed comfortably HEENT: Dry mucous membranes, neck supple Cardiovascular: RRR, no M/R/G, normal S1 and S2, no JVD Respiratory: Lungs clear to auscultation bilaterally, no wheezes, rales or rhonchi GI: Soft, NTND, normoactive bowel sounds : Deferred Neuro: AAO x3, no focal deficits. CN III-XII grossly intact, Strength 5/5 throughout Extremities: No clubbing, cyanosis or edema. Hyperpigmentation noted in the bilateral lower extremities distally. Psych: Patient calm, cooperative and conversant Results - Hospitalist H&P Lab Results Labs: Laboratory Last Values Corrected WBC 11.6 X10E3/uL (4.1-10.5) H 06/18/24 15:52 Uncorrected WBC Count 11.6 x10E3/uL (4.1-10.5) H 06/18/24 15:52 RBC 5.29 X10E6/uL (3.90-5.60) 06/18/24 15:52 Hgb 14.7 g/dL (13.0-17.0) 06/18/24 15:52 Hct 45.6 % (38.8-50.0) 06/18/24 15:52 MCV 86.2 fl (83.5-101) 06/18/24 15:52 MCH 27.8 pg (27.5-35.2) 06/18/24 15:52 MCHC 32.2 g/dL (32.5-35.6) L 06/18/24 15:52 RDW 16.8 % (12.0-14.8) H 06/18/24 15:52 Plt Count 255 x10E3/uL (150-450) 06/18/24 15:52 MPV 8.1 fl (6.6-10.1) 06/18/24 15:52 Neut % (Auto) 73.9 % (.) 06/18/24 15:52 Lymph % (Auto) 18.8 % (.) 06/18/24 15:52 [place] % (Auto) 5.6 % (.) 06/18/24 15:52 Eos % (Auto) 1.1 % (.) 06/18/24 15:52 Baso % (Auto) 0.6 % (.) 06/18/24 15:52 Nucleat RBC Rel Count 0.1 /100 WBC (0-0.5) 06/18/24 15:52 Neut # (Auto) 8.6 x10E3/uL (1.8-7.7) H 06/18/24 15:52 Lymph # (Auto) 2.2 x10E3/uL (1.00-4.8) 06/18/24 15:52 [place] # (Auto) 0.7 x10E3/uL (0.0-0.8) 06/18/24 15:52 Eos # (Auto) 0.1 x10E3/uL (0.0-0.45) 06/18/24 15:52 Baso # (Auto) 0.1 x10E3/uL (0.0-0.2) 06/18/24 15:52 Monocyte Dist Width 19.75 % (0.00-20.00) 06/18/24 15:52 PHA Creatinine Clear 59.12 06/18/24 15:52 Sodium 130 mmol/L (136-145) L 06/18/24 15:52 Potassium 4.3 mmol/L (3.5-5.1) 06/18/24 15:52 Chloride 93 mmol/L (98-107) L 06/18/24 15:52 Carbon Dioxide 25.8 mmol/L (21.0-31.0) 06/18/24 15:52 Anion Gap 15.5 mEq/L (6.0-15.0) H 06/18/24 15:52 BUN 41 mg/dL (7-25) H 06/18/24 15:52 Creatinine 1.40 mg/dL (0.70-1.30) H 06/18/24 15:52 Est GFR (CKD-EPI) 51.445 mL/Min 06/18/24 15:52 Glucose 158 mg/dL (70-100) H 06/18/24 15:52 Calcium 9.7 mg/dL (8.6-10.3) 06/18/24 15:52 Total Bilirubin 0.6 mg/dl (0.3-1.0) 06/18/24 15:52 Direct Bilirubin 0.20 mg/dL (0.03-0.18) H 06/18/24 15:52 Indirect Bilirubin 0.4 mg/dL 06/18/24 15:52 AST 11 U/L (13-39) L 06/18/24 15:52 ALT 8 U/L (7-52) 06/18/24 15:52 Alkaline Phosphatase 85 U/L (34-104) 06/18/24 15:52 Troponin I High Sens 20.8 pg/mL (0.0-20.0) H 06/18/24 18:02 B-Natriuretic Peptide 50.0 pg/mL (5-100) 06/18/24 15:52 Total Protein 7.4 gm/dL (6.4-8.9) 06/18/24 15:52 Albumin 3.9 gm/dL (3.5-5.7) 06/18/24 15:52 Globulin 3.5 gm/dL 06/18/24 15:52 Albumin/Globulin Ratio 1.1 06/18/24 15:52 Lipase 18.0 U/L (11.0-82.0) 06/18/24 15:52 Urine Color Light-yellow (Yellow) 06/18/24 19:00 Urine Appearance Clear (Clear) 06/18/24 19:00 Urine pH 5.5 (5.0-9.0) 06/18/24 19:00 Ur Specific [place] 1.014 (1.001-1.030) 06/18/24 19:00 Urine Protein Negative mg/dL (Negative) 06/18/24 19:00 Urine Glucose (UA) Normal mg/dL (Normal) 06/18/24 19:00 Urine Ketones Negative (Negative) 06/18/24 19:00 Urine Occult Blood 2+ (Negative) H 06/18/24 19:00 Urine Nitrite Negative (Negative) 06/18/24 19:00 Urine Bilirubin Negative (Negative) 06/18/24 19:00 Urine Urobilinogen Normal mg/dL (Normal) 06/18/24 19:00 Ur Leukocyte Esterase Negative (Negative) 06/18/24 19:00 Urine RBC 20-49 /HPF (0-4) H 06/18/24 19:00 Urine WBC 1-2 /HPF (0-4) 06/18/24 19:00 Ur Squamous Epith Cells 1-2 /HPF (0-2) 06/18/24 19:00 Urine Bacteria None seen /HPF (None Seen) 06/18/24 19:00 Hyaline Casts 0-8 /LPF (0-8) 06/18/24 19:00 Urine Mucus Rare /LPF 06/18/24 19:00 SARS-CoV-2 Rap RNA(RT-PCR) Negative (Negative) 06/18/24 16:49 Microbiology Results Micro: Microbiology - Results from entire visit 06/18/24 16:49 Nasopharyngeal SARS-CoV-2, Influenza & RSV (PCR) - Final Assessment & Plan Assessment/Plan (1) Pre-syncope: (2) Nausea & vomiting: Plan Pre-Syncope Fall History of complete heart block status post pacemaker Elevated troponin T wave inversions on EKG Blood pressure does appear to be lower than patient's baseline. Suspect orthostatics as etiology. This event was precipitated by 1 to 2 days of nausea and vomiting. Does have history of heart block, with pacemaker in place. EKG notes rate-controlled A-fib -Interrogate pacemaker -check orthostatics -Monitor on telemetry -Continue to trend troponin overnight -Consult cardiology for their assessment -Continue home cardiac medications -Hold all antihypertensives -Check B12, TSH, vitamin D - physical and Occupational Therapy Nausea/vomiting Approximately 1 to 2 days. Suspect a viral gastroenteritis given that symptoms have largely resolved. -Give 1 L IV hydration -Encourage oral hydration Elevated creatinine, chronic kidney disease Patient may be mildly intravascularly volume depleted, but will just monitor without IV hydration at this time. Does appear to have amlodipine, lisinopril?HCTZ and torsemide on his -home medication list -1 L IV hydration -Monitor BMP closely -Encourage p.o. hydration -Hold home diuretics and BP meds at this time Permanent atrial fibrillation-history of cardioversion. Remains in rate controlled A-fib. -Continue anticoagulation Other chronic medical conditions noted below, continue home regimens unless otherwise specified: COPD HTN Gout Depressive disorder NOS Hyperlipidemia QUETA CAD s/p Stent CODE STATUS: Full code IP vs OBS Justification Based on differential dx, clinical care plan, and risk of adverse events, if untreated, in my clinical judgement this patient requires an acute care setting as: OBSERVATION because of an expectation of an under 2 midnight stay. Estimated length of stay (# of days): 2 Documented By: Stalin Miranda MD 4 8 Signed By: <Electronically signed by Stalin Miranda MD> 06/18/24 2529 [facility] Work Phone: 1(624) 126-439306-03-2024 History of Present illness Narrative* Lalito Silva MD - 04/23/2024 10:20 AM EDT Subjective Nirmal Chaidez is a 78 y.o. male Chief Complaint Follow-up HPI Patient returns in follow-up of problems as noted. In the interim he has done relatively well. Detailed questioning ensued. I cannot elicit any anginal symptomatology from him because of this we believe his CAD to be stable. Blood pressure and lipids appear to be adequately controlled and he has noorthostatic symptomatology. Because of this I believe no adjustments in therapy are necessary. In regards to his pacemaker device checks are satisfactory. Atrial fibrillation persist but stroke risk is adequately mitigated with warfarin and he is done well in this regard without complaint. In the line of questioning we note, though, he and his are not ideal historians. Nonetheless I cannot elicit any suspicious symptomatology and because of this we believe him to be stable. They were encouraged to call if new problems or symptoms arise. As before I did advocate the merits of diet and weight loss. Vitals: 04/23/24 1034 BP: 94/60 BP Location: Left arm Patient Position: Sitting Pulse: 68 Weight: 146 kg (322 lb) Height: 1.702 m (5' 7 ) Objective Physical Exam Constitutional: Appearance: Normal appearance. HENT: Nose: Nose normal. Neck: Vascular: No carotid bruit. Cardiovascular: Rate and Rhythm: Normal rate. Pulses: Normal pulses. Heart sounds: Normal heart sounds. Pulmonary: Effort: Pulmonary effort is normal. Abdominal: General: Bowel sounds are normal. Palpations: Abdomen is soft. Musculoskeletal: General: Normal range of motion. Cervical back: Normal range of motion. Right lower leg: No edema. Left lower leg: No edema. Skin: General: Skin is warm and dry. Neurological: General: No focal deficit present. Mental Status: He is alert. Psychiatric: Mood and Affect: Mood normal. Behavior: Behavior normal. Thought Content: Thought content normal. Judgment: Judgment normal. Allergies Penicillins Current Medications Current Outpatient Medications: allopurinol (Zyloprim) 300 mg tablet, Take 1 tablet (300 mg) by mouth once daily., Disp: , Rfl: citalopram (CeleXA) 20 mg tablet, Take 1 tablet (20 mg) by mouth once daily., Disp: , Rfl: insulin glargine,hum.rec.anlog (INSULIN GLARGINE SUBQ), Inject 20 Units under the skin once daily at bedtime., Disp: , Rfl: lisinopriL-hydrochlorothiazide 10-12.5 mg tablet, Take 1 tablet by mouth 2 times a day., Disp: 180 tablet, Rfl: 3 metFORMIN (Glucophage) 500 mg tablet, Take 1 tablet (500 mg) by mouth once daily with breakfast., Disp: , Rfl: nitroglycerin (Nitrostat) 0.4 mg [...] (40 mg) by mouth once daily., Disp: 90 tablet, Rfl: 3 semaglutide (Ozempic) 0.25 mg or 0.5 mg(2 mg/1.5 mL) pen injector, Inject 0.25 mg under the skin 1 (one) time per week., Disp: , Rfl: torsemide (Demadex) 10 mg tablet, Take 1 tablet (10 mg) by mouth once daily., Disp: 90 tablet, Rfl:3 warfarin (Coumadin) 4 mg tablet, Take 1 tablet (4 mg) by mouth. Take one tablet by mouth as directed by [facility], Disp: , Rfl: 1. Pacemaker Device checks reviewed and found to be satisfactory - Follow Up In Cardiology 2. Permanent atrial fibrillation (Multi) We were unable to restore and maintain rhythm hence rate control with anticoagulant therapy has been selected. This treatment strategy is relatively well-tolerated without symptoms - Follow Up In Cardiology - Follow Up In Cardiology; Future 3. Essential hypertension, benign Review of treatment demonstrates good control - Follow Up In Cardiology - Comprehensive Metabolic Panel; Future - Comprehensive Metabolic Panel 4. Complete heart block (Multi) Mitigated with pacemaker implant - Follow Up In Cardiology 5. BMI 50.0-59.9, adult (Multi) The merits of diet were advocated 6. SOB (shortness of breath) on exertion Multifactorial. Check chemistries and BNP. I believe its mostly on the basis of morbid obesity and deconditioning - B-Type Natriuretic Peptide; Future - B-Type Natriuretic Peptide 7. Atherosclerosis of sun'aq coronary artery of sun[place]aq heart without angina pectoris No recurrence of any symptoms suspicious for progression of coronary disease 8. Mixed hyperlipidemia Review of treatment strategy demonstrates acceptable control Pacemaker/Defibrillator follow up per routine Scribe Attestation By signing my name below, I, Patrice Baptiste LPN attest that this documentation has been prepared under the direction and in the presence of Clarissa Silva MD. Provider Attestation - Scribe documentation All medical record entries made by the Scribe were at my direction and personally dictated by me. Sloane reviewed the chart and agree that the record accurately reflects my personal performance of the history, physical exam, discussion and plan. documented in this [facility] Work Phone: [phone]) 637-865706-03-2024 Instructions* Patient Instructions* Destiney Rodrigez LPN - 04/23/2024 10:20 AM EDT Please bring all medicines, vitamins, and herbal supplements with you when you come to the office. Prescriptions will not be filled unless you are compliant with your follow up appointments or have a follow up appointment scheduled as per instruction of your physician. Refills should be requested at the time of your visit. [facility] Work Phone: [phone]) 985-173902-05-2024 Evaluation note* Encounter Date Diagnosis Assessment Notes Treatment Notes Treatment Clinical Notes Dec, Medicare annual wellness visit, subsequent (ICD-10 - Z00.00) Personalized health advice was given to the beneficiary including a written plan for screenings discussed and provided. Advanced care planning reviewed and/or information given as requested. Additional counseling was provided here today in regards to, [ ]. The above visit was performed by [ ], under direct supervision of [ ]. Document reviewed and amended by provider signed below. Dec, ASHD (arteriosclerotic heart disease) (ICD-10 - I25.10) This patient is stable without activity related CP, dyspnea or lightheadedness. They are instructed to continue exercise and AHA diet plan. Continue secondary prevention measures. Dec, Permanent atrial fibrillation (ICD-10 - I48.21) This patient is in NSR or rate controlled. This patient is anticoagulated to prevent thromboembolic events. They are maintaining regular scheduled appts with their loss prevention and safety manager. No bleeding complications Dec, Stage 3a chronic kidney disease (ICD-10 - N18.31) The patient is instructed on adequate control of hypertension and diabetes, if appropriate. They are also educated on the associated risks of NSAIDs and PPI use with kidney disease. They were instructed on adequate fluid balance and to avoid dehydration. Dec, Type 2 diabetes mellitus with hyperglycemia, without [...] office visit. Continue regular routine monitoring of A1C, Microalbumin, Dilated eye exam and Foot exam Dec, Primary hypertension (ICD-10 - I10) This patient is instructed to consume a healthy, low-fat, low-salt diet. They are also encouraged to continue exercise to achieve/maintain a normal BMI. They are also Patient is instructed on home BP measurements: - rest for 5 minutes w/o talking.- positioned w/ feet on floor and arm supported.- average best 2/3 readings w/ goal < 135/85.- update office w/ home readings in 2 weeks. Dec, QUETA (obstructive sleep apnea) (ICD-10 - G47.33) AHI 58, BiPAP This patient is aware of the benefits associated with QUETA: With continued use, the patient reduces the risk for NE, CVA, HTN, cardiac dysrhythmias and sudden cardiac deaths.The patient is also aware of the association between QUETA and morning headaches, daytime somnolence, fatigue and obesity, which also has been improved with continued use.The patient is compliant with treatment, wearing the equipment every night for greater than 4 hours.The patient is instructed to continue use of the CPAP for QUETA treatment. Dec, NESS (generalized anxiety disorder) (ICD-10 - F41.1) Dec, Elevated cholesterol (ICD-10 - E78.00) Instructed on diet and exercise with continued statin therapy.Discussed the beneficial effects of lowering cholesterol in reducing the risk for cerebrovascular and cardiovascular disease. Dec, Chronic venous insufficiency (ICD-10 - I87.2) Avoid salt and elevate lower extremities, support stockings, inspect legs and feet daily for blisters and ulcerations. Dec, Complete heart block (ICD-10 - I44.2) Dec, Screening PSA (prostate specific antigen) (ICD-10 - Z12.5) Dec, Acute on chronic diastolic congestive heart failure (ICD-10 - I50.33) [facility] Other 11-27-2023 Evaluation note* Encounter Date Diagnosis [...] and plan to stop Metformin in future [facility] Other 11-27-2023 Evaluation note* Encounter Date Diagnosis [...] index [BMI] 50.0-59.9, adult (ICD-10 - Z68.43) [facility] Other 11-17-2023 History of Present illness Narrative* aLlito Silva MD - 10/07/2023 2:50 PM EST [...] one tablet by mouth as directed by [facility], Disp: , Rfl: Assessment/Plan 1. Pacemaker Satisfactory device checks demonstrating greater than 10-year battery life 2. Permanent atrial fibrillation (CMS/HCC) Treated with rate control and antithrombotic therapy. Stable 3. Mixed hyperlipidemia Well-controlled on current therapy 4. Essential hypertension, benign Well-controlled on current therapy 5. Complete heart block (CMS/HCC) Necessitating pacemaker implantation. Device checks are satisfactory 6. Atherosclerosis of sun'aq coronary artery of sun'aq heart without angina pectoris Asymptomatic. [facility] Work Phone: 1(118) 771-227611-17-2023 Instructions* Patient Instructions* Ashleigh Starks LPN - [...] follow up per routine [facility] Work Phone: 1(341) 738-751011-03-2023 Evaluation note* Encounter Date Diagnosis Assessment Notes [...] are maintaining regular scheduled appts with their loss prevention and safety manager. No bleeding complications Sep, Stage 3a chronic [...] apnea) (ICD-10 - G47.33) AHI 58, BiPAP 18/ This patient is aware of the benefits associated with QUETA: With continued use, the patient reduces the risk for NE, CVA, HTN, cardiac dysrhythmias and sudden cardiac [...] block (ICD-10 - I44.2) s/p PM insertion. [facility] Other 11-03-2023 Evaluation note* Encounter Date Diagnosis [...] are maintaining regular scheduled appts with their loss prevention and safety manager. No bleeding complications Sep, Stage 3a chronic [...] use, the patient reduces the risk for NE, CVA, HTN, cardiac dysrhythmias and sudden cardiac [...] block (ICD-10 - I44.2) s/p PM insertion. [facility] Other 08-03-2023 Evaluation note* Encounter Date Diagnosis [...] are maintaining regular scheduled appts with their loss prevention and safety manager. No bleeding complications Jun, Stage 3a chronic [...] use, the patient reduces the risk for NE, CVA, HTN, cardiac dysrhythmias and sudden cardiac [...] severe symptoms Aware will increase BS temporarily [facility] Other 08-03-2023 Evaluation note* Encounter Date Diagnosis [...] are maintaining regular scheduled appts with their loss prevention and safety manager. No bleeding complications Jun, Stage 3a chronic [...] use, the patient reduces the risk for NE, CVA, HTN, cardiac dysrhythmias and sudden cardiac deaths.The patient is also aware of the association between QUETA and morning headaches, daytime somnolence, fatigue and obesity Noncompliant Jun, Acute allergic rhinitis due to pollen (ICD-10 - J30.1) Flonase and Yumiko during exacerbation of allergic symptoms. Kenalog injection for severe symptoms Aware will increase BS temporarily [facility] Other 07-18-2023 Evaluation note* Encounter Date Diagnosis Assessment Notes Treatment Notes Treatment Clinical Notes May, Type 2 diabetes mellitus with hyperglycemia, without long-term current use of insulin (ICD-10 - E11.65) [facility] Other 07-05-2023 Evaluation note* Encounter Date Diagnosis Assessment Notes Treatment Notes Treatment Clinical Notes May, Type 2 diabetes mellitus with hyperglycemia, without long-term current use of insulin (ICD-10 - E11.65) [facility] Other 07-03-2023 Evaluation note* Encounter Date Diagnosis Assessment Notes Treatment Notes Treatment Clinical Notes May, Vitamin D deficiency (ICD-10 - E55.9) [facility] Other 06-25-2023 History and physical note Author Stalin Miranda [facility] May 14, 2023 11:31pm Note Date/Time May 14, 2023 10:1 7pm [facility] [address] [place] [address] Hospitalist H&P Signed Patient: Nirmal Chaidez MR#: [id number] : 1945 Acct:[id number] Age/Sex: 77 / M Adm Date: 3 Loc: Room: [address] [place] [address] Type: ADM IN Attending Dr: Stalin Miranda [...] 3 weeks ago and was admitted to [facility] for 1 week and subsequently went to [...] some CHRISTIE, with BUN/creatinine of 38/1.7 from 03/12. in August 2022. Lab work otherwise within [...] for that which is noted above in [facility] Medical History A-fib COPD (chronic obstructive pulmonary [...] % (Auto) 15.6 % (.) 05/14/23 19:49 [place] % (Auto) 4.0 % (.) 05/14/23 19:49 Eos % (Auto) 1.7 % (.) 05/14/23 19:49 Baso % (Auto) 0.5 % (.) 05/14/23 19:49 Nucleat RBC Rel Count 0.1 /100 WBC (0-0.5) 05/14/23 19:49 Neut # (Auto) 8.2 x10E3/uL (1.8-7.7) H 05/14/23 19:49 Lymph # (Auto) 1.6 x10E3/uL (1.00-4.8) 05/14/23 19:49 [place] # (Auto) 0.4 x10E3/uL (0.0-0.8) 05/14/23 19:49 [...] 3 4 Signed By: <Electronically signed by Stalni Miranda MD> 05/14/23 2331 [facility] Work Phone: 1(803) 717-710706-22-2023 Evaluation note* Encounter Date Diagnosis Assessment Notes [...] are maintaining regular scheduled appts with their loss prevention and safety manager. No bleeding complications Apr, Type 2 diabetes [...] use, the patient reduces the risk for NE, CVA, HTN, cardiac dysrhythmias and sudden cardiac deaths.The patient is also aware of the association between QUETA and morning headaches, daytime somnolence, fatigue and obesity, which also has been improved with continued use.The patient is compliant with treatment, wearing the equipment every night for greater than 4 hours.The patient is instructed to continue use of the CPAP for UQETA treatment. [facility] Other 04-19-2023 Evaluation note* Encounter Date Diagnosis Assessment Notes Treatment Notes Treatment Clinical Notes Feb, Cardiac pacemaker in situ (ICD-10 - Z95.0) [facility] Other 04-04-2023 Evaluation note* Encounter Date Diagnosis [...] are maintaining regular scheduled appts with their loss prevention and safety manager. Feb, Primary hypertension (ICD-10 - I10) This [...] use, the patient reduces the risk for NE, CVA, HTN, cardiac dysrhythmias and sudden cardiac [...] NESS (generalized anxiety disorder) (ICD-10 - F41.1) [facility] Other 04-04-2023 Evaluation note* Encounter Date Diagnosis Assessment Notes Treatment Notes Treatment Clinical Notes Feb, Type 2 diabetes mellitus with hyperglycemia, without long-term current use of insulin (ICD-10 - E11.65) [facility] Other Discharge summary Author Milo Cameron [facility] July 03, 2022 4:59pm Note Date/Time July 03, 2022 4: 59pm [facility] [address] [place] [address] Discharge Summary Signed Patient: Nirmal Chaidez MR#: [id number] : 1945 Acct:[id number] Age/Sex: 76 / M Adm Date: 2 Loc: Room: [address] [place] [address]: Lalito Silva MD Copies to: DO Milo Matos MD, [facility] Lalito Silva MD~ Providers Date of Discharge: 07/03/22 Discharging Provider: Milo Cameron Primary Care Provider: Modesto Chavarria Discharge Diagnosis Final Diagnosis Final Discharge Diagnosis: Syncope Permanent atrial fibrillation Bradycardia Status post successful pacemaker insertion Summary Hospital Course Hospital course: Patient was transferred from [facility] to have a permanent pacemaker placed due [...] with nurse for incision check in the [facility] Office on 07/09/2022 at 9:30am. 2. Chest x-ray to be done the same day as your device check in [facility]. 3. Pacemaker/ICD clinic appointment at [facility] in 15 weeks- they will call you. 4. Office visit with Dr. Silva in the [facility] in 15 weeks- we will call [...] DIRECTED Label Comments: Take as directed by [place] Coumadin [facility] allopurinol 300 mg Tablet 300 mg PO DAILY hydrocodone-acetaminophen 5-325 mg tablet 1 - 2 tab PO Q4-6H PRN (Reason: pain) 3 Days Qty: 14 0RF Documented By: Milo Cameron MD, [facility] 1655 Signed By: <Electronically signed by [facility] Milo Cameron> 07/03/22 1659 [facility] Work Phone: Discharge summary Author Stalin Miranda [facility] June 22, 2024 1:02pm Note Date/Time June 22, 2024 12: 57pm [facility] [address] [place] [address] Discharge Summary Signed Patient: Nirmal Chaidez MR#: [id number] : 1945 Acct:[id number] Age/Sex: 78 / M Adm Date: 4 Loc: Room: [address] [place] [address]: Stalin Miranda MD Copies to: DO Stalin Matos MD~ Providers Date of Discharge: 06/22/24 Discharging Provider: Stalin Miranda Primary Care Provider: Modesto Chavarria Consults: 06/18/24 21:49 Consult to Occupational Therapy Routine Comment: Physician Instructions: Consult to OT for:: Evaluation and Treat Consult to Physical Therapy Routine Comment: Physician Instructions: Consult to PT for:: Evaluation and Treat 06/18/24 23:02 Consult to Cardiology Routine Comment: Consulting Provider: [facility] [employer], [facility] Reason For Exam: Pre-syncope, TWI on EKG Has Provider Been Notified: Yes Date of Notification: 06/19/24 Time of Notification: 08:27 Discharge Diagnosis (1) Pre-syncope: (2) Nausea & vomiting: (3) Atrial fibrillation: (4) Orthostatic hypotension: (5) Iatrogenic hypotension: (6) Major depression: (7) Type 2 diabetes mellitus with hyperglycemia: (8) QUETA (obstructive sleep apnea): (9) Viral gastroenteritis: Final Diagnosis Final Discharge Diagnosis: As above Summary Hospital Course Hospital course: Mr. Chaidez is a 78yo M with PMH of CAD status post stent, AV heart block status post pacemaker, HTN, A-fib on Coumadin, HLD, COPD who presented to the emergencydepartment with a near syncopal event in the shower just before presentation. Patient had complained of intractable nausea and vomiting in the 1 to 2 days prior to hospitalization. The symptoms had improved by the time patient arrivedto the ED. Patient had some T wave inversions on EKG, but no increase in cardiac enzymes or cardiorespiratory complaints. Cardiology team was consulted and recommended IV hydration and slow addition of patient's blood pressure medications. After 2 days IV hydration, blood pressures returned to the 120s?140s systolic. Patient was recommended to restart home lisinopril?HCTZ, but discontinue amlodipine, torsemide. Physical and occupational therapy recommended alf for rehab prior to patient going home. Patient and his are agreeable to short stay at SNF to work on strengthening. Patient was discharged to [facility] for further PT/OT needs. He was discharged in stable condition. 35 minutes spent coordinating the discharge of this patient Time Spent with Patient Time spent providing/coordinating discharge services (# min): 35 Discharge Plan Discharge Plan Patient Disposition: Long Term Facility Activity: No Activity Restriction Diet: Low-Sodium and Low-Cholesterol Additional Instructions: SNF TO MANAGE: PT/OT to eval and treat Monitor VS per protocol Monitor Neuro. and Cardiac assessment--Pre syncope Monitor GI assessment--Nausea and vomiting Please draw a PT/INR on 06/25/24--Coumadin to be managed by SNF providers Continue to use patient's home sleep apnea machine Maintain high risk fall precautions Care to be managed by SNF providers Prescriptions: New polyethylene glycol 3350 [HealthyLax] 17 gram Powder In Packet 17 g PO DAILY Qty: 0 0RF cyanocobalamin (vitamin B-12) 1,000 mcg Tablet 1,000 mcg PO QAM Qty: 0 0RF Metamucil Fiber Singles 3.4 gram Powder In Packet 1 packet PO DAILY Qty: 0 0RF Continued allopurinol 300 mg tablet See Rx Instructions .ROUTE .COMPLEX Qty: 90 3RF Dose Instruction: Take 1 tablet by mouth daily 90 Rx Instructions: Take 1 tablet by mouth daily 90 citalopram 20 mg tablet See Rx Instructions .ROUTE .COMPLEX Qty: 90 1RF Dose Instruction: TAKE 1 TABLET BY MOUTH AT BEDTIME EVERY night Rx Instructions: TAKE 1 TABLET BY MOUTH AT BEDTIME EVERY night ketoconazole 2 % cream 1 applic topical BID semaglutide 1.2 mg/0.33 mL kit 1.2 mg (SUBCUT) WE@0900 Rx Instructions: please verify dose with compound dose from pharmacy. patient due for dose today 06/20/24 pravastatin 40 mg Tablet 40 mg PO DAILY Rx Instructions: Takes HS warfarin 4 mg tablet 4 mg PO DAILY cholecalciferol (vitamin D3) 125 mcg (5,000 unit) capsule 125 mcg PO DAILY insulin glargine [Lantus Solostar U-100 Insulin] 100 unit/mL (3 mL) insulin pen 10 unit subcut QPM 30 Days Qty: 3 5RF Rx Instructions: Increase Lantus 2u every 3 days until FBS < 140 or reach 20u pen needle, diabetic [BD Ultra-Fine Cindy Pen Needle] 32 gauge x 5/32 needle See Rx Instructions miscellaneous .COMPLEX 30 Days Qty: 50 5RF Rx Instructions: As directed as directed; Changed lisinopril-hydrochlorothiazide 20-12.5 mg tablet 1 tab PO DAILY Qty: 180 3RF Rx Instructions: 1 tab orally; Discontinued torsemide 10 mg tablet 10 mg PO DAILY nitroglycerin 0.4 mg tablet, sublingual 0.4 mg sublingual Q5-15M PRN (Reason: chest pain) Rx Instructions: do not exceed 3 doses per episode Effer-K 20 mEq tablet, effervescent 20 meq PO DAILY amlodipine 5 mg tablet 5 mg PO DAILY Follow Up: Michael Mullen MD [Active Staff] - 10/25/24 3:00 pm Exam Physical Exam Vital Signs: Temp Pulse Resp BP Pulse Ox O2 Del Method FiO2 97.9 F 64 20 146/85 H 96 Room Air 21 06/22/24 08:00 06/22/24 08:00 06/22/24 08:00 06/22/24 08:00 06/22/24 08:00 06/22/24 08:00 06/18/24 23:31 Narrative: Constitutional: Obese, elderly WM, resting in bed comfortably HEENT: Dry mucous membranes, neck supple Cardiovascular: Normal rate, irregular rhythm, no JVD Respiratory: Lungs clear to auscultation bilaterally, no wheezes, rales or rhonchi GI: Soft, NTND, normoactive bowel sounds : Deferred Neuro: AAO x3, no focal deficits. CN III-XII grossly intact, Strength 5/5 throughout Extremities: No clubbing, cyanosis or edema. Hyperpigmentation noted in the bilateral lower extremities distally. Psych: Patient calm, cooperative and conversant Diagnostic Studies Completed and Pending Studies Pending studies at discharge: 06/23/24 05:00 Prothrombin Time INR IN AM Basic Metabolic Panel [CHEM] IN AM Complete Blood Count Auto Diff IN AM 06/24/24 05:00 Prothrombin Time INR IN AM Basic Metabolic Panel [CHEM] IN AM Complete Blood Count Auto Diff IN AM 06/25/24 05:00 Prothrombin Time INR IN AM 06/26/24 05:00 Prothrombin Time INR IN AM 06/27/24 05:00 Prothrombin Time INR IN AM Labs on day of discharge: 06/22/24 12:02: POC Glucose 143 06/22/24 06:28: POC Glucose 128, POC Glucose Comment Glu2: cleaned meter 06/22/24 06:03: Corrected WBC 10.4, Uncorrected WBC Count 10.4, RBC 4.77, Hgb 13.2, Hct 40.8, MCV 85.6, MCH 27.7, MCHC 32.3 L, RDW 17.0 H, Plt Count 237, MPV 7.9, Neut % (Auto) 73.9, Lymph % (Auto) 17.0, [place] % (Auto) 6.4, Eos % (Auto) 2.0, Baso % (Auto) 0.7, Nucleat RBC Rel Count 0.1, Neut # (Auto) 7.7, Lymph # (Auto) 1.8, [place] # (Auto) 0.7, Eos # (Auto) 0.2, Baso # (Auto) 0.1, PT 26.6 H, INR 2.4, PHA Creatinine Clear 89.71, Sodium 132 L, Potassium 4.1, Chloride 99, Carbon Dioxide 26.9, Anion Gap 10.2, BUN 26 H, Creatinine 0.92, Est GFR (CKD-EPI) > 60.0, Glucose 137 H, Calcium 9.5 06/21/24 20:35: POC Glucose 123, POC Glucose Comment Glu2: cleaned meter 06/21/24 16:03: POC Glucose 151 Documented By: Stalin Miranda MD 4 [id number] Signed By: <Electronically signed by Stalin Miranda MD> 06/22/24 1302 [facility] Work Phone: Evaluation noteNo assessment information available [facility] Work Phone: Evaluation noteNo InformationNort [employer] Other Evaluation note* Diagnosis Onset Date Resolution Status Acute head injury acute Fall acute Syncope acute [facility] Work Phone: Evaluation note* Diagnosis Pacemaker- Primary Cardiac pacemaker in situ Permanent atrial fibrillation (CMS/HCC) Atrial fibrillation Mixed hyperlipidemia Essential hypertension, benign Complete heart block (CMS/HCC) Atrioventricular block, complete Atherosclerosis of sun'aq coronary artery of sun'aq heart without angina pectoris documented in this encounter [facility] Work Phone: Evaluation note* Diagnosis Onset Date Resolution Status Atrial fibrillation acute Chronic kidney disease acute High cholesterol acute Hypertension acute Major depression acute QUETA (obstructive sleep apnea) acute Type 2 diabetes mellitus with hyperglycemia acute [facility] Work Phone: Evaluation note* Diagnosis Atherosclerosis of sun'aq coronary artery of sun'aq heart without angina pectoris- Primary Pacemaker Cardiac pacemaker in situ Permanent atrial fibrillation (Multi) Atrial fibrillation Essential hypertension, benign Complete heart block (Multi) Atrioventricular block, complete BMI 50.0-59.9, adult (Multi) SOB (shortness of breath) on exertion Shortness of breath Mixed hyperlipidemia documented in this encounter [facility] Work Phone: Evaluation note* Diagnosis Onset Date Resolution Status Atrial fibrillation acute Chronic kidney disease acute High cholesterol acute Hypertension acute Major depression acute QUETA (obstructive sleep apnea) acute Type 2 diabetes mellitus with hyperglycemia acute Acute electrocardiogram changes acute Nausea & vomiting acute Viral illness acute [facility] Work Phone: Evaluation note* Diagnosis Onset Date Resolution Status Atrial fibrillation acute Chronic kidney disease acute High cholesterol acute Hypertension acute Major depression acute QUETA (obstructive sleep apnea) acute Type 2 diabetes mellitus with hyperglycemia acute Acute electrocardiogram changes acute Nausea & vomiting acute Pre-syncope acute Viral illness acute [facility] Work Phone: Evaluation note* Diagnosis Onset Date Resolution Status Pre-syncope acute Acute electrocardiogram changes resolved Nausea & vomiting resolved Viral illness resolved [facility] Work Phone: History general Narrative - Reported* Type Description Date Medical History Diabetes Medical History Hypertension Medical History High Cholesterol Surgical History lithrotripsy Surgical History heart stent 2017 Surgical History bilateral knee replacement Surgical History cartioversion 2018 Surgical History kidney stone blasted 2018 Hospitalization History kidney stones and septic 2017 Hospitalization History see above [facility] Other History general Narrative - Reported* Type Description Date Medical History Diabetes Medical History Hypertension Medical History High Cholesterol Medical History QUETA Surgical History lithrotripsy Surgical History heart stent 2017 Surgical History bilateral knee replacement Surgical History cartioversion 2018 Surgical History kidney stone blasted 2018 Hospitalization History kidney stones and septic 2017 Hospitalization History see above [facility] Other History of Present illness Narrative* Patient [...] the above we will proceed as noted. [facility] Work Phone: History of Present illness [...] diet and weight loss were discussed in detail.[facility] [employer] DO Work Phone: History of Present illness [...] all the above we recommend no change. [facility] VHT DO Work Phone: Hospital Discharge instructions Additional [...] with nurse for incision check in the [facility] Office on 07/09/2022 at 9:30am. 2. Chest x-ray to be done the same day as your device check in [facility]. 3. Pacemaker/ICD clinic appointment at [facility] in 15 weeks- they will call you. 4. Office visit with Dr. Silva in the [facility] in 15 weeks- we will call you with appointment. [][facility] Work Phone: Hospital Discharge instructions Additional Instructions Keep your laceration clean with soap and water daily. Apply antibiotic ointment once daily. Follow-up with PCP for suture removal in 7 days.[facility] Work Phone: Hospital Discharge instructions Additional Instructions SNF TO MANAGE: PT/OT to eval and treat Monitor VS per protocol Monitor Neuro. and Cardiac assessment--Pre syncope Monitor GI assessment--Nausea and vomiting Please draw a PT/INR on 06/25/24--Coumadin to be managed by SNF providers Continue to use patient's home sleep apnea machine Maintain high risk fall precautions [facility] Work Phone: Reason for referral (narrative)* Consultation (Routine) - Authorized Specialty Diagnoses / Procedures Referred By Cecelia bird Referred To Contact Cardiology Diagnoses Pacemaker Permanent atrial fibrillation (CMS/HCC) Essential hypertension, benign Complete heart block (CMS/HCC) Procedures Follow Up In Cardiology Lalito Silva MD [address] [place] [address] 2, [address] [address] Lalito Silva MD [address] [place] [address], [address] [address] Referral ID Status Reason Start Date Expiration Date V isits Requested Visits Authorized [id number] Authorized 10/07/2023 10/06/2024 1 1 [facility] Work Phone: Reason for referral (narrative)* Consultation (Routine) - Authorized Specialty Diagnoses / Procedures Referred By Contac t Referred To Contact Cardiology Diagnoses Permanent atrial fibrillation (Multi) Procedures Follow Up In Cardiology Lalito Silva MD [address] [place] [address], [address] [address] Michael Mullen MD [address] [place] [address], [address] [address] Referral ID Status Reason Start Date Expiration Date V isits Requested Visits Authorized [id number] Authorized 04/23/2024 04/23/2025 1 1 [facility] Work Phone: Summary Purpose Family History Unknown [...] Family history of lymphoma: Father(V16.7, Z80.7) Status:Active Relationship Condition Age at Onset Recorded Date/T taina father Cutaneous T-cell lymphoma Unknown Malignant neoplasm Unknown Unknown Not Specified Unknown Heart disease Unknown Relationship Condition Age at Onset Recorded Date/T taina father Cutaneous T-cell lymphoma Unknown Malignant neoplasm Unknown Unknown mother Unknown Heart disease Unknown Advance Directives Advance Directive Response Recorded Date/ Time Advance Directives No July 8:25am Chief Complaint Order sent to [facility] for testing due in NovemberALEACALLY CHAIDEZ is being seen for a 6 month follow-up of.NIRMAL CHAIDEZ is being seen for a 3 month follow-up of.NIRMAL CHAIDEZ is being seen for a 9 month follow-up of. Chief Complaint and Reason for Visit Chief Complaint Syncope Chief Complaint Syncope fall Chief Complaint Fall Reason for Visit Acute head injury Fall Syncope Chief Complaint 3 month follow up Reason for Visit Atrial fibrillation Chronic kidney disease High cholesterol Hypertension Major depression QUETA (obstructive sleep apnea) Type 2 diabetes mellitus with hyperglycemia Chief Complaint 3 month follow up N20.0, I10 Reason for Visit Atrial fibrillation Chronic kidney disease High cholesterol Hypertension Major depression QUETA (obstructive sleep apnea) Type 2 diabetes mellitus with hyperglycemia Chief Complaint 3 month follow up N20.0, I10 Fall Reason for Visit Atrial fibrillation Chronic kidney disease High cholesterol Hypertension Major depression QUETA (obstructive sleep apnea) Type 2 diabetes mellitus with hyperglycemia Acute electrocardiogram changes Nausea & vomiting Viral illness Chief Complaint 3 month follow up N20.0, I10 Fall Reason for Visit Atrial fibrillation Chronic kidney disease High cholesterol Hypertension Major depression QUETA (obstructive sleep apnea) Type 2 diabetes mellitus with hyperglycemia Acute electrocardiogram changes Nausea & vomiting Pre-syncope Viral illness Chief Complaint Fall Alf Visit nusrsing home visit Amb Documentation usp follow up/flu shot Reason for Visit Pre-syncope Acute electrocardiogram changes Nausea & vomiting Viral illness Additional Source Comments (unrecognized sect ion and content) No Status Records FoundNo Status Records FoundNo Status Records FoundNo Status Records FoundNo Status Records FoundNo Status Records FoundNo Status Records FoundNo Status Records Found INFORMATION SOURCE (unrecogn ized section and content) DATE CREATED AUTHOR 05/17/2018 [facility] DATE CREATED AUTHOR AUTHOR'S ORGANIZ ATION 05/08/2019 [facility] DATE CREATED AUTHOR AUTHOR'S ORGANIZ ATION 06/16/2022 [employer] DATE CREATED AUTHOR AUTHOR'S ORGANIZ ATION 04/29/2023 [facility] DATE CREATED AUTHOR AUTHOR'S ORGANIZ ATION [facility]20[facility] DATE CREATED AUTHOR AUTHOR'S ORGANIZ ATION 04/24/2024 [facility] [facility] DATE CREATED AUTHOR AUTHOR'S ORGANIZ ATION 07/03/2024 [place] [facility] ical Center DATE CREATED AUTHOR AUTHOR'S ORGANIZ ATION 08/02/2024 [facility] Care Teams (unrecognized sec tion and content) Team Status: Active Member Role Status Dates Modesto Chavarria , DO Primary Care Provider Active Team Status: Inactive Member Role Status Dates Modesto Chavarria DO Primary Care Provide r, Attending Provider Active Start: March 26, 2024 End: March 26, 2024 Team Status: Active Member Role Status Dates Modesto Chavarria DO Primary Care Provider Active Ran Addison , DO Emergency Provider Active Stalin Miranda MD Admit Provider, Attending Fatoumata hopkins Active Team Status: Inactive Member Role Status Dates Modesto Chavarria DO Primary Care Provider Active Lalito Silva MD Admit Provider, Attending Provider Active Team Status: Inactive Member Role Status Dates Modesto Chavarria DO Primary Care Provider Active Domenico Betancourt , DO Emergency Provider Active 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 Relationship Specialty Start Date End Date Modesto Chavarria DO [address] [place] [address] [address] [place] [address] PCP - General 11/21/99 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 Relationship Specialty Start Date End Date Modesto Chavarria DO PCP - General 11/21/99 Team Status: Inactive Member Role Status Dates Modesto Chavarria DO Primary Care Provider Active Start: April 23, 2024 End: April 23, 2024 ALLYSON Amaro Attending Provider Active Start: April 23, 2024 End: April 23, 2024 Lalito Silva MD Other Provider Active Start: April 23, 2024 End: April 23, 2024 Team Status: Active Member Role Status Dates Modesto Chavarria DO Primary Care Provider Active Start: June 18, 2024 Domenico Betancourt , Emergency Provider Active Start: June 18, 2024 Stalin Miranda MD Admit Provide r, Attending Provider Active Start: June 18, 2024 Team Status: Inactive Member Role Status Dates Modesto Chavarria , Primary Care Provider Active Start: June 19, 2024 End: June 22, 2024 Domenico Betancourt DO Emergency Provider Active Start: June 19, 2024 End: June 22, 2024 Stalin Miranda MD Admit Provide r, Attending Provider Active Start: June 19, 2024 End: June 22, 2024 Team Status: Active Member Role Status Dates Modesto Chavarria DO Primary Care Provide r, Attending Provider Active Start: June 22, 2024 Team Status: Active Member Role Status Dates Modesto Chavarria DO Primary Care Provide r, Attending Provider Active Start: July 12, 2024 Team Status: Active Member Role Status Dates Modesto Chavarria DO Primary Care Provider Active Start: August 07, 2024 CHRISTINE Casas Attending Provider Active St art: August 07, 2024 Team Status: Inactive Member Role Status Dates Modesto Chavarria DO Primary Care Provide r, Attending Provider Active Start: August 14, 2024 End: August 14, 2024 REASON FOR VISIT (unrecogniz ed section and content) Reason Comments Follow-up 6m Reason Comments Follow-up 6m fu Specialty Diagnoses / Procedures Referred By Contac t Referred To Contact Cardiology Diagnoses Pacemaker Permanent atrial fibrillation (Multi) Essential hypertension, benign Complete heart block (Multi) Procedures Follow Up In Cardiology Lalito Silva MD [address] [place] [address], [address] [address] Lalito Silva MD [address] [place] [address] 2, [address] [address] Referral ID Status Reason Start Date Expiration Date V isits Requested Visits Authorized [id number] Authorized 10/07/2023 10/06/2024 1 1 Goals (unrecognized section and content) Goals may [...] BE BASED ON THE PRIMARY CLINICAL RECORDS. [facility] provides no warranty or guarantee of the accuracy or completeness of information in this document.
[2024-08-15 15:09] LABS: INR 2.16; Prothrombin Time 21.2 sec (9.0-11.6)
== END 2024-08-15 14:36 | disposition home or self-care (01) ==
LOC: LAB 14:35
PROVIDERS: PCP Internal Medicine; Visit Provider Internal Medicine
DX: I48.91 Unspecified atrial fibrillation (principal); N39.0 Urinary tract infection, site not specified
CPT/HCPCS: 36415; 81003; 85610; 87086

== ENCOUNTER 2024-08-21 02:42 | Outpatient (RCR) | payer MEDICARE, OTHER, SELFPAY | END 2024-09-20 23:44 | disposition home or self-care (01) | LOC: MM 02:42 | PROVIDERS: PCP Internal Medicine; Visit Provider Internal Medicine | DX: Z51.81 Encounter for therapeutic drug level monitoring (principal); Z79.01 Long term (current) use of anticoagulants ==

== ENCOUNTER 2024-08-22 12:30 | Outpatient (REF) | payer MEDICARE, OTHER, SELFPAY ==
[2024-08-22 12:52] LABS: Basophils Absolute Auto 0.1 10^3/uL (0.0-0.1); Basophils Percent Auto 0.9 % (0.2-2.0); Eosinophils Absolute Auto 0.2 10^3/uL (0.0-0.7); Eosinophils Percent Auto 2.2 % (0.9-7.0); Hematocrit 44.1 % (42.0-54.0); Hemoglobin 13.7 g/dL (14.0-18.0); Immature Granulocytes Abs Auto 0.02 10^3/uL (0.00-0.03); Immature Granulocytes Pct Auto 0.2 % (0.0-0.5); Lymphocytes Absolute Auto 1.4 10^3/uL (1.2-3.8); Lymphocytes Percent Auto 17.2 % (20.5-60.0); Mean Corpuscular HGB Conc 31.1 g/dL (29.9-35.2); Mean Corpuscular Hemoglobin 27.9 pg (25.9-34.0); Mean Corpuscular Volume 89.8 fL (80.0-94.0); Mean Platelet Volume 9.9 fL (9.5-13.5); Monocytes Absolute Auto 0.5 10^3/uL (0.3-0.8); Monocytes Percent Auto 6.5 % (1.7-12.0); Platelet Count 208 10^3/uL (150-450); Red Blood Count 4.91 10^6/uL (4.70-6.10); Red Cell Distribution Width 15.9 % (11.0-15.0); White Blood Count 8.2 10^3/uL (4.0-11.0)
[2024-08-22 13:17] LABS: Alanine Aminotransferase 11 U/L (16-63); Albumin Globulin Ratio 0.7; Albumin Level 2.6 g/dL (3.4-5.0); Alkaline Phosphatase 82 U/L (46-116); Anion Gap 12.8; Aspartate Amino Transferase 11 U/L (15-37); BUN Creatinine Ratio 17.6; Bilirubin Total 0.5 mg/dL (0.2-1.0); Carbon Dioxide 25.9 mmol/L (21.0-32.0); Chloride 100 mmol/L (98-107); Estimated GFR (African America >60 (>=60 mL/min/1.73m^2); Estimated GFR (Non-African Ame 59 (>=60 mL/min/1.73m^2); Globulin 3.8 g/dL; Glucose 142 mg/dL (74-106); Potassium 3.7 mmol/L (3.5-5.1); Sodium 135 mmol/L (136-145); Thyroid Stimulating Hormone 1.434 uIU/mL (0.358-3.740); Total Protein 6.4 g/dL (6.4-8.2)
== END 2024-08-22 12:31 | disposition home or self-care (01) ==
LOC: LAB 12:30
PROVIDERS: PCP Internal Medicine; Visit Provider Internal Medicine
DX: I48.91 Unspecified atrial fibrillation (principal)
CPT/HCPCS: 36415; 80053; 84443; 85025

== ENCOUNTER 2024-09-21 12:20 | Outpatient (RCR) | payer MEDICARE, OTHER, SELFPAY | END 2024-10-20 23:59 | disposition home or self-care (01) | LOC: MM 12:20 | PROVIDERS: PCP Internal Medicine; Visit Provider Internal Medicine | DX: Z51.81 Encounter for therapeutic drug level monitoring (principal); Z79.01 Long term (current) use of anticoagulants; I48.91 Unspecified atrial fibrillation | CPT/HCPCS: 85610; G0463 ==

== ENCOUNTER 2024-10-22 04:23 | Outpatient (RCR) | payer MEDICARE, OTHER, SELFPAY | END 2024-11-20 09:28 | disposition home or self-care (01) | LOC: MM 04:23 | PROVIDERS: PCP Internal Medicine; Visit Provider Internal Medicine | DX: Z51.81 Encounter for therapeutic drug level monitoring (principal); Z79.01 Long term (current) use of anticoagulants | CPT/HCPCS: 85610; G0463 ==

== ENCOUNTER 2024-11-22 00:53 | Outpatient (RCR) | payer MEDICARE, OTHER, SELFPAY | END 2024-12-21 15:15 | disposition home or self-care (01) | LOC: MM 00:53 | PROVIDERS: PCP Internal Medicine; Visit Provider Internal Medicine | DX: Z51.81 Encounter for therapeutic drug level monitoring (principal); Z79.01 Long term (current) use of anticoagulants | CPT/HCPCS: 85610; G0463 ==

== ENCOUNTER 2024-12-24 00:49 | Outpatient (RCR) | payer MEDICARE, OTHER, SELFPAY | END 2025-01-18 13:13 | disposition home or self-care (01) | LOC: MM 00:49 | PROVIDERS: PCP Internal Medicine; Visit Provider Internal Medicine | DX: Z51.81 Encounter for therapeutic drug level monitoring (principal); Z79.01 Long term (current) use of anticoagulants | CPT/HCPCS: 85610; G0463 ==

== ENCOUNTER 2025-01-19 12:03 | Outpatient (RCR) | payer MEDICARE, OTHER, SELFPAY | END 2025-02-15 12:30 | disposition home or self-care (01) | LOC: MM 12:03 | PROVIDERS: PCP Internal Medicine; Visit Provider Internal Medicine | DX: Z51.81 Encounter for therapeutic drug level monitoring (principal); Z79.01 Long term (current) use of anticoagulants ==

== ENCOUNTER 2025-01-30 11:16 | Outpatient (OUT) | payer MEDICARE, OTHER, SELFPAY ==
--- OUTSIDE RECORDS SUMMARY | 2025-01-30 11:24 | XMS_ITS | CCD ---
Author Organization [facility] Care Team Providers Care Miller First Name Role Phone PHYSICIAN, DEFAULT Unavailable Unavailable PHYSICIAN, DEFAULT Unavailable Unavailable Modesto Chavarria Unavailable Unavailable Unavailable Unavailable Unavailable DO Modesto Chavarria Primary Care Provider [phone] MD Lalito Silva Admit Provider MD Lalito [...] Unavailable FAWWAD, RAYMOND H Attending Unavailable FAWWAD, RYAMOND H Admitting Unavailable BALL, DR SALVADOR Primary [...] Care Provider DO Ran Addison Emergency Provider [phone] MD Stalin Miranda Admit Provider MD Stalin Miranda Attending Provider [phone] Shira TOBIN, Dr. Lalito Savage Attending Unavailable Ball, Dr. Modesto Galan Primary Care Julia Chavarria, Dr. Modesto Galan Primary Care Julia Cameron, Dr. Milo Taylor Attending Cassi bindu Chavarria, Dr. Modesto Galan Primary Care Julia Chavarria, Dr. Modesto Galan Primary Care Julia Chavarria, Dr. Modesto Galan Primary Care Julia Chavarria, Dr. Modesto Galan Primary Care Jluia Silva II, Dr. Lalito Savage Referring Unavailable Ball, Dr. Modesto Galan Primary Care Julia Silva II, Dr. Lalito Savage Attending Unavailable Aura, Dr. Modesto Galan Primary [facility] Julia Silva II, Dr. Lalito Savage Referring Unavailable McGuinn II, Dr. Lalito Savage Attending Unavailable Lalouinn II, Dr. Lalito Savage Attending Unavailable McGuinn II, Dr. Lalito Savage Referring Unavailable Aura, Dr. Modesto Galan Primary Care Julia Chavarria, Dr. Modesto Galan Primary [facility] Julia Cameron, Dr. Milo Taylor Attending Cassi bindu Chavarria, Dr. Modesto Galan Primary [facility] Julia Chavarria, Dr. Modesto Galan Primary [facility] Julia Chavarria DO, Modesto Galan Primary Care Provider Modesto Chavarria DO Primary Care Provider DO Modesto Chavarria Primary Care Provider [facility] Attending Provider MD Lalito Silva Other Provider DO Domenico Betancourt Emergency Provider MD Stalin Cabezas Admit Provider MD Stalin Miranda Attending Provider DO Domenico Betancourt Emergency Provider MD Stalin Cabezas Admit Provider MD Stalin Miranda Attending Provider [phone] DO Modesto Chavarria Primary Care Provider [phone] LALITO SILVA P Attending Unavailable MODESTO CHAVARRIA Primary Care Unavailable MCGUINN, LALITO P Attending Unavailable MCGUINN, LALITO P Referring Unavailable MODESTO CHAVARRIA E Primary Care Unavailable Carlos Alberto GIBSON Attending Unavailable Lalouinn, Lalito P Admitting Unavailable McGuinn, Lalito P Attending Unavailable McGuinn, Lalito P Referring Unavailable McGuinn, Lalito P Admitting Unavailable McGuinn, Lalito P Attending Unavailable McGuinn, Lalito P Referring Unavailable Carlos Alberto GIBSON Attending Unavailable Carlos Alberto GIBSON Attending Unavailable Modesto Chavarria Primary Care Unavailable Lalito Silva Consulting Unavail able Marva Soriano Admitting Unavailable Marva Soriano [facility] Meredith Frost Consulting Unavailable Stalin Miranda Admitting Unavailab Stalin Cannon Attending Unavailab Constanza Contreras Consulting Unavailable Milo Cameron Consulting Unavailable Lalito Silva Consulting Unavail able Michael Mullen Consulting Unavailable Prashanth Marshall Consulting Unavailab Isabell Lopez Consulting Unavailable Jillian Hector Consulting Unavailable Ej Mandujano Consulting Unavailab Rachel De Leon Consulting Unavailable Gretel Palma Consulting Unavailable Allergies Allergy Classification Reported Allergen(s) Allergy Type Date of Onset Reaction(s) Facility metFORMIN (1 source) metFORMIN Drug Allergy 03-26-20 24 Unknown Reaction [facility] Penicillins (antibiotic) (4 sources) Penicillins Drug Allergy 10-06-20 23 Hives, [facility] (17 sources) Penicillins; Translations: [Penicillins] Allergy to drug (finding) 10-06-20 23 Hives, Unknown Reaction [facility] (5 sources) Penicillin; Translations: [penicillin G] Drug Allergy 03-07-20 22 [facility] (20 sources) Penicillin G Benzathine; Translations: [penicillin G benzathine] Drug allergy 03-26-20 24 Unknown, Unknown Reaction [facility] (1 source) Grass pollen Drug allergy (disorder) [facility] (1 source) house dust allergenic extract Drug Allergy [facility] (1 source) Penicillins Drug allergy (disorder) 04-08-20 14 [facility] (12 sources) metFORMIN Drug Allergy 03-26-20 24 Unknown, Unknown Reaction [facility] (8 sources) Albuterol *ANTIASTHMATIC AND BRONCHODILATOR AGENTS Propensity to adverse reactions Unknown [email or web address] Lee Silber Other (8 sources) Substance with penicillin structure and antibacterial mechanism of action (substance) Drug allergy Unknown [email or web address] Lee Silber Other (2 sources) Penicillins Drug Allergy 10-06-20 23 Hives, [facility] (1 source) Dust; Translations: [Dust] Propensity to adverse reactions (disorder) [facility] (1 source) Penicillin; Translations: [penicillin] Drug Allergy [facility] (1 source) Pollen; Translations: [Pollen] Propensity to adverse reactions (disorder) [facility] (1 source) metFORMIN Drug Allergy 11-20-20 [facility] Repository (1 source) Penicillins Drug allergy (disorder) 11-20-20 [facility] Repository Medications Current Medications Medication Drug Class(es) [...] mouth every week Vitamin D3 1.25 MG (05452 UT) 1 capsule Orally weekly for 30 [...] 26, 2018 12:00am May 26, 2018 8:31am 3 ml insulin glargine 100 unt/ml pen injector (5 sources) Insulin Analog Start: 03-26-2024 inject 10 [IU] by subcutaneous injection once daily in the evening Insulin Glargine (Lantus Solostar U-100 Insulin) 100 unit/mL (3 mL) insulin pen Active 10 UNIT SUBCUT Every evening 3 March 26, 2024 12:00am Increase Lantus 2u every 3 days until FBS insulin glargine,hum.rec .anlog (INSULIN GLARGINE SUBQ) (2 sources) inject 20 [IU] by subcutaneous injection once daily at bedtime insulin glargine,hum.rec.a nlog (INSULIN GLARGINE SUBQ) Inject 20 Units under the skin once daily at bedtime. Active ozempic (0.25 or 0.5 mg/dose) 2 mg/3ml solution pen-injector (1 source) Start: 10-17-2023 Ozempic (0.25 or 0.5 MG/DOSE) 2 MG/3ML 0.25MG Subcutaneous weekly Sep, Active polyethylene glycol 3350 41918 mg powder for oral solution (2 sources) Osmotic Laxative Start: 06-22-2024 Polyethylene Glycol 3350 (Healthylax) 17 gram Powder In Packet Active 17 GM PO Daily 0 June 22, 2024 12:00am pravastatin sodium 40 mg oral tablet (20 sources) HMG-CoA Reductase Inhibitor Start: 04-26-2018 End: 10-06-2024 take 1 tablet by mouth once daily pravastatin (Pravachol) 40 mg tablet Indications: Mixed hyperlipidemia Take 1 tablet (40 mg) by mouth once daily. 90 tablet 3 10/07/2023 Active psyllium 3400 mg powder for oral suspension (2 sources) Start: 06-22-2024 Psyllium Husk (Aspartame) (Metamucil Fiber Singles) 3.4 gram Powder In Packet Active 1 PACKET PO Daily June 22, 2024 12:00am 0.25 mg, 0.5 mg dose 1.5 ml semaglutide 1.34 mg/ml pen injector (2 sources) semaglutide (Ozempic) 0.25 mg or 0.5 mg(2 [...] day Active torsemide 10 mg oral tablet (17 sources) Loop Diuretic Start: 03-16-2022 End: 10-06-2024 take 1 tablet by mouth once daily torsemide (Demadex) 10 mg tablet Indications: Essential hypertension, benign Take 1 tablet (10 mg) by mouth once daily. 90 tablet 3 10/07/2023 Active vitamin b12 1 mg oral tablet [...] 4 MG Oral Tablet as directed by [facility] Quantity: 0 Refills: 0 Ordered: [...] mouth every four to six hours Hydrocodone-Acetaminophen (Nunez) 5-325 mg tablet Discontinued 1 TAB PO EVERY 4-6 HOURS 12 November 26, 2018 August 11, 2021 1:14pm acetaminophen 325 mg / oxyCODONE hydrochloride 5 mg oral tablet (5 sources) Opioid Agonist Start: 05-16-2023 End: 03-23-2024 take 1 tablet by mouth once daily Oxycodone-Acetaminophen (Endocet) 5-325 mg tablet Discontinued 1 TAB PO Daily 14 May 16, 2023 March 23, 2024 4:34pm [...] mouth every month Ergocalciferol (Vitamin D2) Discontinued 41779 UNIT PO As Directed May 16, 2023 [...] Thiazide Diuretic, Angiotensin Converting Enzyme Inhibitor Start: 10-01-2024 End: 10-25-2024 take 1 tablet by mouth once daily lisinopriL-hydroc hlorothiazide 20-12.5 mg tablet Indications: Essential hypertension, benign Take 1 tablet by mouth once daily. 90 tablet 3 10/01/2024 10/25/2024 Discontinued (Therapy completed) Start: 06-22-2024 take 1 tablet by elana th once daily Lisinopril-Hydrochlorothiazide Active 1 TAB PO Daily June 22, 2024 12:46pm 1 tab orally; [...] 26, 2018 12:00am May 29, 2024 9:10am ketoconazole 20 mg/ml topical cream (20 sources) [...] tablet (20 sources) Biguanide Start: 02-22-2023 End: 10-25-2024 take 1 tablet by mouth once daily at breakfast metFORMIN (Glucophage) 500 mg tablet Take 1 tablet (500 mg) by mouth once daily with breakfast. 03/09/2023 10/25/2024 Discontinued (Therapy completed) Start: 05-26-2018 End: 11-26-2018 take 1 tablet [...] 2022 12:00am August 24, 2022 7:31am Start: 08-12-2022 Potassium Bica rbonate Active 25 EACH PO [...] 26, 2018 12:00am May 26, 2018 8:31am traMADol hydrochloride 50 mg oral tablet (6 [...] sources) Coronary atherosclerosis; Translations: [Coronary atherosclerosis of [place] coronary artery] Onset: 3 Chronic Diabetes mellitus with complications (20 sources) Type 2 diabetes mellitus; Translations: [Type 2 diabetes mellitus with hyperglycemia] Onset: 7 Chronic Diabetes mellitus without complication (19 sources) Diabetes mellitus; Translations: [Diabetes mellitus without [...] Vaccination given; Translations: [Encounter for immunization] Episodic Intracranial injury (15 sources) Concussion injury of body structure; Translations: [Concussion] Onset: 9 08-24-2022 Episodic Mood disorders (18 sources) 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; Translations: [Major depressive disorder, single episode, in full remission] Onset: 4 03-24-2024 Chronic Nutritional deficiencies (17 sources) Vitamin D deficiency; Translations: [Vitamin D deficiency, unspecified] Chronic Osteoarthritis (20 sources) Osteoarthritis of knee; Translations: [Unilateral primary osteoarthritis, left knee] Chronic Other aftercare (12 sources) Drug therapy finding; Translations: [Long-term (current) use of other medications] Episodic Other aftercare (5 sources) Encounter for therapeutic drug level monitoring; Translations: [[facility] DRUG LEVL MONITORING] Onset: 3 Episodic Other aftercare (2 sources) 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; Translations: [MAINTAINER [employer] CURRNT USE ANTICOAGULANTS] Onset: 3 Episodic Other aftercare (7 sources) Long-term current use of anticoagulant; Translations: [detention (current) use of anticoagulants] Episodic Other aftercare (8 sources) Long-term current use of drug therapy; Translations: [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] Episodic Other circulatory disease (2 sources) Iatrogenic hypotension; Translations: [Other hypotension] 06-22-2024 Episodic Other circulatory disease (2 sources) Orthostatic hypotension; Translations: [Orthostatic hypotension] 06-22-2024 Episodic Other connective tissue disease (18 sources) [...] of falling] Episodic Other lower respiratory disease (17 sources) Dyspnea on exertion; Translations: [Shortness of [...] mass index (BMI) 50.0-59.9, adult (Multi)] Onset: Chronic Other nutritional; endocrine; and metabolic disorders [...] and visceral atherosclerosis (8 sources) Atherosclerosis of [place] arteries of the extremities; Translations: [Unspecified atherosclerosis of [place] arteries of extremities, bilateral legs] Chronic Residual codes; unclassified (20 sources) Obstructive sleep apnea syndrome; Translations: [Obstructive sleep apnea (adult) (pediatric)] Onset: 4 03-24-2024 Chronic Residual codes; unclassified (18 sources) Obstructive sleep apnea (adult) (pediatric); Translations: [Obstructive sleep apnea (adult)(pediatric)] Onset: 2 Chronic Residual codes; unclassified (1 source) Swelling - edema - symptom; Translations: [Edema] Episodic Residual codes; unclassified (8 sources) Other specified personal risk factors, not elsewhere classified; Translations: [Personal risk factor] Episodic Screening and history of mental health and substance abuse codes (15 sources) Ex-smoker; Translations: [Personal history of tobacco use] Onset: 4 10-25-2024 Episodic Comment on above: QUIT 1996; Spondylosis; intervertebral disc disorders; other back problems (18 sources) Lumbosacral spondylosis without myelopathy; Translations: [Other spondylosis with radiculopathy, lumbar region] Chronic Superficial injury; contusion (20 sources) Contusion of rib; Translations: [Contusion of right front wall of thorax, initial encounter] Onset: 9 Resolved: 0 03-07-2022 Episodic Unclassified (12 sources) Permanent atrial fibrillation; [...] prostatitis; Translations: [Acute prostatitis] Onset: 06-27-2017 Episodic Intestinal infection (3 sources) Viral gastroenteritis; Translations: [Viral intestinal infection, unspecified] Onset: 06-19-2024 06-22-2024 Episodic Joint disorders and dislocations; trauma-related (8 sources) Dislocation of proximal interphalangeal joint of left little finger, subsequent encounter; Translations: [Dislocation of proximal interphalangeal joint of left little finger, subsequent encounter] Onset: 05-04-2018 Episodic Malaise and fatigue (1 source) Weakness; Translations: [Weakness] Onset: 06-19-2024 Episodic Nausea and vomiting (7 sources) Nausea and vomiting; Translations: [Nausea with vomiting, unspecified] Onset: 06-19-2024 06-18-2024 Episodic Nonspecific chest pain (8 sources) Chest pain; Translations: [Chest pain, unspecified] Onset: 05-06-2017 Episodic Open wounds of head; neck; and trunk (20 sources) Laceration of right eyebrow; Translations: [Laceration without foreign body of right eyelid and periocular area, initial encounter] Onset: 10-06-2023 03-07-2022 Episodic Other circulatory disease (1 source) Orthostatic hypotension; Translations: [Orthostatic hypotension] Onset: 06-19-2024 Episodic Other circulatory disease (1 source) Other hypotension; Translations: [Other hypotension] Onset: 06-19-2024 Episodic Other connective tissue disease (8 sources) [...] Resolved: 02-28-2022 Chronic Other infections; including parasitic (15 sources) History of sepsis; Translations: [Personal history of other infectious and parasitic diseases] Onset: 10-06-2023 10-06-2023 Episodic Other injuries and conditions due to external causes (9 sources) Injury of head; Translations: [Unspecified injury of head, initial encounter] Onset: 10-06-2023 05-14-2023 Episodic Other lower respiratory disease (2 sources) Shortness of breath; Translations: [Shortness of breath] Onset: 10-06-2023 Episodic Other upper respiratory infections (8 sources) Acute sinusitis; Translations: [Acute sinusitis, unspecified] Onset: 10-20-2015 Episodic Residual codes; unclassified (7 sources) Edema; Translations: [Edema] Onset: 10-06-2023 10-06-2023 Episodic Septicemia (except in labor) (8 sources) Other streptococcal sepsis; Translations: [Other streptococcal sepsis] Onset: 05-30-2017 Episodic Skin and subcutaneous tissue infections (16 sources) Cellulitis of left lower limb; Translations: [Cellulitis of left lower limb] Onset: 07-02-2019 Resolved: 02-23-2021 Episodic Spondylosis; intervertebral disc disorders; other back problems (3 sources) Neck pain; Translations: [Cervicalgia] Onset: 10-06-2023 10-06-2023 Episodic Syncope (16 sources) Syncope; Translations: [Syncope and collapse] Onset: 10-06-2023 05-14-2023 Episodic Unclassified (3 sources) Onset: 10-07-2023 Resolved: 10-25-2024 10-07-2023 Results Test Name Value Interpretation Reference Range Facility ECG 12 Leadon 10-25-2024 Atrial fibrillation with controlled rate with nonspecific ST-T changes [facility] Work Phone: Ambulatory Visit Summaryon 1 Ambulatory Visit Summary [...] Carlos Alberto Bunn Primary Care Physician - AURA MEDINA, MODESTO This Is Your Medications List potassium bicarbonate [...] Appointments 2023 1:00 PM EST With: Where: Cardiovascular Services Tuesday 11:30 AM EDT With: Carlos Alberto GIBSON MD Where: [facility] [address] [place] [address]- You Need to Schedule the Following Appointments Follow Up with Carlos Alberto GIBSON MD, URL When: Where: [address] [place] [id number]- Medications What How Much When Instructions Unchanged [...] where an (more content not included)... Normal [facility] Urology Office/Clinic Noteon 08-24-2024 Urology Office/Clinic Note Urology Office/Clinic Note Chief Complaint BPH with urinary obstruction and hx of kidney stones HPI Staff 18 mos w/ KUB. Dx: BPH with obstruction, hx of kidney stones, chronic prostatitis. S/p TURP 10/01/21. *Effer-K 20mEq bid. Pt states he has not been taking this for the past 2 months. KUB done 04/23/24 at [facility]. Dysuria: denies Incomplete bladder emptying: denies Hematuria: [...] in the kidneys or ureters. KUB 04/23/24 [facility] - question of a tiny calcification overlying [...] Information ARTHUR OCONNELL, Carlos Alberto Bunn, URL [address] [place] [address]- Additional Instructions: 1 year w/ KUB Patient [...] renal calculu (more content not included)... Normal [facility] Comment on above: Result Comment: Elec tronically Signed By: Carlos Alberto GIBSON MD\.br\Date and Time Signed: 08/24/24 11:59 EDT\.br\Electronically Co-Signed By: Xochilt Vale\Date and Time Co-Signed: 08/24/24 11:54 EDT Automated basophil %Ordered By: Stalin Miranda on 06-22-2024 Basophils/100 WBC (Bld) 0.7 % Normal . [facility] Comment on above: Performed By: #### A 1C WTH eA, [id number], TSH3, PT, CBC, [id number], BMP, PTT #### [address] Automated basophil countOrde red By: Stalin Miranda on 06-22-2024 Basophils (Bld) [#/Vol] 0.1 10*3/uL Normal 0.0-0.2 [facility] Comment on above: Result Comment: PERF ORMED BY: [place] [address] PATHOLOGIST FAMILY AND DIVORCE LEGAL ASSISTANT CORAL GOLD M.D. Performed By: #### A 1C WT eA, [id number], TSH3, PT, CBC, [id number], BMP, PTT #### [address] Automated blood monocyte cou ntOrdered By: Stalin Miranda on 06-22-2024 Monocytes (Bld) [#/Vol] 0.7 10*3/uL Normal 0.0-0.8 [facility] Comment on above: Performed By: #### A 1C WT eA, [id number], TSH3, PT, CBC, [id number], BMP, PTT #### [address] Automated eosinophil %Ordere d By: Stalin Erasmoor on 06-22-2024 Eosinophils/100 WBC (Bld) 2.0 % Normal . [facility] Comment on above: Performed By: #### A 1C WTH eA, [id number], TSH3, PT, CBC, [id number], BMP, PTT #### [address] Automated eosinophil countOr dered By: Stalin Ruth on 06-22-2024 Eosinophils (Bld) [#/Vol] 0.2 10*3/uL Normal 0.0-0.45 [facility] Comment on above: Performed By: #### A 1C WTH eA, [id number], TSH3, PT, CBC, [id number], BMP, PTT #### [facility] [address] Automated monocyte %Ordered By: Stalin Miranda on 06-22-2024 Monocytes/100 WBC (Bld) 6.4 % Normal . [facility] Comment on above: Performed By: #### A 1C WTH eA, [id number], TSH3, PT, CBC, [id number], BMP, PTT #### [address] Automated neutrophil %Ordere d By: Stalin Miranda on 06-22-2024 Neutrophils/100 WBC (Bld) 73.9 % Normal . [facility] Comment on above: Performed By: #### A 1C WTH eA, [id number], TSH3, PT, CBC, [id number], BMP, PTT #### [address] Basic Metabolic Panelon 08-0 Creatinine Clr Calc Pharmacy 89.71 Normal [facility] Comment on above: Result Comment: PERF ORMED BY: [place] [address] PATHOLOGIST FAMILY AND DIVORCE LEGAL ASSISTANT CORAL GOLD M.D. Performed By: #### A 1C WTH eA, [id number], TSH3, PT, CBC, [id number], BMP, PTT #### [address] GFR/1.73 sq M.predicted MDRD (S/P/Bld) [Vol rate/Area] mL/min/{1.73_m2} Normal [facility] Comment on above: Performed By: #### A 1C WTH eA, [id number], TSH3, PT, CBC, [id number], BMP, PTT #### [address] Calcium [Mass/volume] in Ser um or PlasmaOrdered By: Stalin Miranda on 06-22-2024 Calcium [Mass/Vol] 9.5 mg/dL Normal 8.6-10.3 [facility] Comment on above: Performed By: #### A 1C WTH eA, [id number], TSH3, PT, CBC, [id number], BMP, PTT #### [facility] [address] [place] [id number] [facility] Capillary blood glucose robert urement by glucometer (mass/volume)Ordered By: Stalin Miranda on 06-22-2024 Glucose [Mass/Vol] 143 mg/dL Normal [facility] Comment on above: Random Glucose Refer ence Range is dependent on time and content of last meal. Glucose of more than 200 mg/dL in a nonstressed, ambulatory subject supports the diagnosis of Diabetes Mellitus. Result Comment: [place] om Glucose Reference Range is dependent on time and content of last meal. Glucose of more than 200 mg/dL in a nonstressed, ambulatory subject supports the diagnosis of Diabetes Mellitus. PERFORMED BY: [address] [place] [address] PATHOLOGIST FAMILY AND DIVORCE LEGAL ASSISTANT CORAL GOLD M.D. Performed By: #### A 1C WT eA, [id number], TSH3, PT, CBC, [id number], BMP, PTT #### [facility] [address] [id number] [facility] Carbon dioxide, total [Moles /volume] in Serum or PlasmaOrdered By: Stalin Miranda on 06-22-2024 CO2 [Moles/Vol] 26.9 mmol/L Normal 21.0-31.0 [facility] Comment on above: Performed By: #### A 1C WTH eA, [id number], TSH3, PT, CBC, [id number], BMP, PTT #### [facility] [address] [place] [id number] [facility] Chloride [Moles/volume] in S karla or PlasmaOrdered By: Stalin Miranda on 06-22-2024 Chloride [Moles/Vol] 99 mmol/L Normal 98-107 [facility] Comment on above: Performed By: #### A 1C WTH eA, [id number], TSH3, PT, CBC, [id number], BMP, PTT #### [facility] [address] Complete Blood Count Auto Di ffon 06-22-2024 Mean Corpuscular HGB Conc 32.3 g/dL Low 32.5-35.6 [facility] Comment on above: Performed By: #### A 1C WTH eA, [id number], TSH3, PT, CBC, [id number], BMP, PTT #### [facility] [address] NRBC% 0.1 /100{WBC} Normal 0-0.5 [facility] Comment on above: Performed By: #### A 1C WTH eA, [id number], TSH3, PT, CBC, [id number], BMP, PTT #### [address] Creatinine [Mass/volume] in Serum or PlasmaOrdered By: Stalin Miranda on 06-22-2024 Creatinine [Mass/Vol] 0.92 mg/dL Normal 0.70-1.30 [facility] Comment on above: Performed By: #### A 1C WTH eA, [id number], TSH3, PT, CBC, [id number], BMP, PTT #### [address] Erythrocyte distribution wid th [Ratio] by Automated countOrdered By: Stalin Miranda on 06-22-2024 Erythrocyte distribution width (RBC) [Ratio] 17.0 % High 12.0-14.8 [facility] Comment on above: Performed By: #### A 1C WTH eA, [id number], TSH3, PT, CBC, [id number], BMP, PTT #### [address] Erythrocytes [#/volume] in B lood by Automated countOrdered By: Stalin Miranda on 06-22-2024 RBC (Bld) [#/Vol] 4.77 10*6/uL Normal 3.90-5.60 [facility] Comment on above: Performed By: #### A 1C WTH eA, [id number], TSH3, PT, CBC, [id number], BMP, PTT #### [facility] [address] [id number] [facility] Glucose Poct Glucometerson 0 06-22-2024 Commemt1 Glu2: Cleaned Meter Normal [facility] Comment on above: Result Comment: PERF ORMED BY: [facility] [address] [place] [address] PATHOLOGIST FAMILY AND DIVORCE LEGAL ASSISTANT CORAL GOLD M.D. Performed By: #### A 1C WTH eA, [id number], TSH3, PT, CBC, [id number], BMP, PTT #### [facility] [address] [place] [id number] [facility] Glucose [Mass/Vol] 128 mg/dL Normal [facility] Comment on above: Result Comment: [place] Glucose Reference Range is dependent on time and content of last meal. Glucose of more than 200 mg/dL in a nonstressed, ambulatory subject supports the diagnosis of Diabetes Mellitus. Performed By: #### A 1C WTH eA, [id number], TSH3, PT, CBC, [id number], BMP, PTT #### [facility] [address] [place] [id number] [facility] Glucose [Mass/volume] in Ser um or PlasmaOrdered By: Stalin Miranda on 06-22-2024 Glucose [Mass/Vol] 137 mg/dL High 70-100 [facility] Comment on above: ADA recommended refe rence rangeRandom Glucose Reference Range is dependent on time and content of last meal. Glucose of more than 200 mg/dL in a nonstressed, ambulatory subject supports the diagnosis of Diabetes Mellitus. Result Comment: [place] Glucose Reference Range is dependent on time and content of last meal. Glucose of more than 200 mg/dL in a nonstressed, ambulatory subject supports the diagnosis of Diabetes Mellitus. ADA recommended reference range Performed By: #### A 1C WTH eA, [id number], TSH3, PT, CBC, [id number], BMP, PTT #### [facility] [address] Hematocrit [Volume Fraction] of Blood by Automated countOrdered By: Stalin Miranda on 06-22-2024 Hematocrit (Bld) [Volume fraction] 40.8 % Normal 38.8-50.0 [facility] Comment on above: Performed By: #### A 1C WTH eA, [id number], TSH3, PT, CBC, [id number], BMP, PTT #### [facility] [address] Hemoglobin [Mass/volume] in BloodOrdered By: Stalin Miranda on 06-22-2024 Hemoglobin (Bld) [Mass/Vol] 13.2 g/dL Normal 13.0-17.0 [facility] Comment on above: Performed By: #### A 1C WTH eA, [id number], TSH3, PT, CBC, [id number], BMP, PTT #### [facility] [address] INR in Platelet poor plasma by Coagulation assayOrdered By: Stalin Miranda on 06-22-2024 INR Coag (PPP) [Relative time] 2.4 {INR} Normal [facility] Comment on above: INR Therapeutic Rang e [...] heart valves: 3 - 4.5 PERFORMED BY: [place] [address] PATHOLOGIST FAMILY AND DIVORCE LEGAL ASSISTANT CORAL GOLD M.D. Performed By: #### A 1C WT eA, [id number], TSH3, PT, CBC, [id number], BMP, PTT #### [facility] [address] Leukocytes [#/volume] correc faraz for nucleated erythrocytes in Blood by Automated counOrdered By: Stalin Miranda on 06-22-2024 WBC corrected for nucl RBC Auto (Bld) [#/Vol] 10.4 10*3/uL 4.1-10.5 [facility] Leukocytes [#/volume] in Blo od by Automated countOrdered By: Stalin Miranda on 06-22-2024 WBC (Bld) [#/Vol] 10.4 10*3/uL Normal 4.1-10.5 [facility] Comment on above: Performed By: #### A 1C [facility] eA, [id number], TSH3, PT, CBC, [id number], BMP, PTT #### [place] [address] [place] Lymphocytes [#/volume] in Bl ood by Automated countOrdered By: Stalin Miranda on 06-22-2024 Lymphocytes (Bld) [#/Vol] 1.8 10*3/uL Normal 1.00-4.8 [facility] Comment on above: Performed By: #### A 1C WT eA, [id number], TSH3, PT, CBC, [id number], BMP, PTT #### [facility] [address] [place] [address] [place] Lymphocytes/100 leukocytes i n Blood by Automated countOrdered By: Stalin Miranda on 06-22-2024 Lymphocytes/100 WBC (Bld) 17.0 % Normal . [facility] Comment on above: Performed By: #### A 1C WT eA, [id number], TSH3, PT, CBC, [id number], BMP, PTT #### [address] MCH [Entitic mass] by Automa faraz countOrdered By: Stalin Miranda on 06-22-2024 MCH (RBC) [Entitic mass] 27.7 pg Normal 27.5-35.2 [facility] Comment on above: Performed By: #### A 1C WTH eA, [id number], TSH3, PT, CBC, [id number], BMP, PTT #### [facility] [address] MCHC Auto (RBC) [Mass/Vol]Or dered By: Stalin Miranda on 06-22-2024 MCHC (RBC) [Mass/Vol] 32.3 g/dL Low 32.5-35.6 [facility] MCV [Entitic volume] by Auto mated countOrdered By: Stalin Miranda on 06-22-2024 MCV (RBC) [Entitic vol] 85.6 fL Normal 83.5-101 [facility] Comment on above: Performed By: #### A 1C WTH eA, [id number], TSH3, PT, CBC, [id number], BMP, PTT #### [address] Neutrophils [#/volume] in Bl ood by Automated countOrdered By: Stalin Miranda on 06-22-2024 Neutrophils (Bld) [#/Vol] 7.7 10*3/uL Normal 1.8-7.7 [facility] Comment on above: Performed By: #### A 1C WTH eA, [id number], TSH3, PT, CBC, [id number], BMP, PTT #### [facility] [address] No Panel InformationOrdered By: Stalin Miranda on 06-22-2024 Bedside Glucose Comment Glu2: cleaned meter [facility] Estimated GFR (CKD-EPI) > 60.0 mL/Min [facility] Creatinine Clearance (Chem 89.71 [facility] Nucleated erythrocytes [Pres ence] in Blood by Automated countOrdered By: Stalin Miranda on 06-22-2024 Nucleated RBC Auto Ql (Bld) 0.1 /100{WBC} 0-0.5 [facility] Platelet mean volume [Entiti c volume] in Blood by Automated countOrdered By: Stalin Miranda on 06-22-2024 Platelet mean volume (Bld) [Entitic vol] 7.9 fL Normal 6.6-10.1 [facility] Comment on above: Performed By: #### A 1C WTH eA, [id number], TSH3, PT, CBC, [id number], BMP, PTT #### [facility] [address] Platelets [#/volume] in Bloo d by Automated countOrdered By: Stalin Miranda on 06-22-2024 Platelets (Bld) [#/Vol] 237 10*3/uL Normal 150-450 [facility] Comment on above: Performed By: #### A 1C WTH eA, [id number], TSH3, PT, CBC, [id number], BMP, PTT #### [facility] [address] Potassium [Moles/volume] in Serum or PlasmaOrdered By: Stalin Miranda on 06-22-2024 Potassium [Moles/Vol] 4.1 mmol/L Normal 3.5-5.1 [facility] Comment on above: Performed By: #### A 1C WTH eA, [id number], TSH3, PT, CBC, [id number], BMP, PTT #### [facility] [address] Prothrombin time (PT)Ordered By: Stalin Miranda on 06-22-2024 PT Coag (PPP) [Time] 26.6 s High 9.0-12.9 [facility] Comment on above: A hematocrit value g reater than 55% may lead to inaccurate results in coagulation testing. Patients having hematocrit values >55% require a special collection tube for coagulation studies. Please contact the laboratory at [phone] for redraw instructions. Result Comment: A he matocrit value greater than 55% may lead to inaccurate results in coagulation testing. Patients having hematocrit values >55% require a special collection tube for coagulation studies. Please contact the laboratory at [phone] for redraw instructions. Performed By: #### A 1C WTH eA, [id number], TSH3, PT, CBC, [id number], BMP, PTT #### [address] Serum or plasma anion gap de terminationOrdered By: Stalin Miranda on 06-22-2024 Anion gap [Moles/Vol] 10.2 mmol/L Normal 6.0-15.0 [facility] Comment on above: Performed By: #### A 1C WTH eA, [id number], TSH3, PT, CBC, [id number], BMP, PTT #### [address] Sodium [Moles/volume] in Ser um or PlasmaOrdered By: Stalin Miranda on 06-22-2024 Sodium [Moles/Vol] 132 mmol/L Low 136-145 [facility] Comment on above: Performed By: #### A 1C WTH eA, [id number], TSH3, PT, CBC, [id number], BMP, PTT #### [address] Urea nitrogen [Mass/volume] in Serum or PlasmaOrdered By: Stalin Miranda on 06-22-2024 Urea nitrogen [Mass/Vol] 26 mg/dL High 7-25 [facility] Comment on above: Performed By: #### A 1C WTH eA, [id number], TSH3, PT, CBC, [id number], BMP, PTT #### [address] Basic Metabolic Panelon Anion gap [Moles/Vol] 9.4 mmol/L Normal 6.0-15.0 [facility] Comment on above: Performed By: #### A 1C WTH eA, [id number], TSH3, PT, CBC, [id number], BMP, PTT #### [facility] [address] Calcium [Mass/Vol] 9.4 mg/dL Normal 8.6-10.3 [facility] Comment on above: Performed By: #### A 1C WTH eA, [id number], TSH3, PT, CBC, [id number], BMP, PTT #### [address] Chloride [Moles/Vol] 100 mmol/L Normal 98-107 [facility] Comment on above: Performed By: #### A 1C WTH eA, [id number], TSH3, PT, CBC, [id number], BMP, PTT #### [address] CO2 [Moles/Vol] 27.6 mmol/L Normal 21.0-31.0 [facility] Comment on above: Performed By: #### A 1C WTH eA, [id number], TSH3, PT, CBC, [id number], BMP, PTT #### [address] Creatinine [Mass/Vol] 1.20 mg/dL Normal 0.70-1.30 [facility] Comment on above: Performed By: #### A 1C WTH eA, [id number], TSH3, PT, CBC, [id number], BMP, PTT #### [address] Creatinine Clr Calc Pharmacy 68.60 Normal [facility] Comment on above: Result Comment: PERF ORMED BY: [place] [address] PATHOLOGIST FAMILY AND DIVORCE LEGAL ASSISTANT CORAL GOLD M.D. Performed By: #### A 1C WTH eA, [id number], TSH3, PT, CBC, [id number], BMP, PTT #### [address] GFR/1.73 sq M.predicted MDRD (S/P/Bld) [Vol rate/Area] mL/min/{1.73_m2} Normal [facility] Comment on above: Performed By: #### A 1C WTH eA, [id number], TSH3, PT, CBC, [id number], BMP, PTT #### [facility] [address] Glucose [Mass/Vol] 104 mg/dL High 70-100 [facility] Comment on above: Result Comment: [facility] Glucose Reference Range is dependent on time and content of last meal. Glucose of more than 200 mg/dL in a nonstressed, ambulatory subject supports the diagnosis of Diabetes Mellitus. ADA recommended reference range Performed By: #### A 1C WTH eA, [id number], TSH3, PT, CBC, [id number], BMP, PTT #### [address] Potassium [Moles/Vol] 4.0 mmol/L Normal 3.5-5.1 [facility] Comment on above: Performed By: #### A 1C WTH eA, [id number], TSH3, PT, CBC, [id number], BMP, PTT #### [address] Sodium [Moles/Vol] 133 mmol/L Low 136-145 [facility] Comment on above: Performed By: #### A 1C WTH eA, [id number], TSH3, PT, CBC, [id number], BMP, PTT #### [address] Urea nitrogen [Mass/Vol] 31 mg/dL High 7-25 [facility] Comment on above: Performed By: #### A 1C WTH eA, [id number], TSH3, PT, CBC, [id number], BMP, PTT #### [address] Complete Blood Count Auto Di ffon 06-21-2024 Basophils (Bld) [#/Vol] 0.1 10*3/uL Normal 0.0-0.2 [facility] Comment on above: Result Comment: PERF ORMED BY: [place] [address] PATHOLOGIST FAMILY AND DIVORCE LEGAL ASSISTANT CORAL GOLD M.D. Performed By: #### A 1C WTH eA, [id number], TSH3, PT, CBC, [id number], BMP, PTT #### [address] Basophils/100 WBC (Bld) 1.0 % Normal . [facility] Comment on above: Performed By: #### A 1C WTH eA, [id number], TSH3, PT, CBC, [id number], BMP, PTT #### [address] Eosinophils (Bld) [#/Vol] 0.3 10*3/uL Normal 0.0-0.45 [facility] Comment on above: Performed By: #### A 1C WTH eA, [id number], TSH3, PT, CBC, [id number], BMP, PTT #### [address] Eosinophils/100 WBC (Bld) 3.3 % Normal . [facility] Comment on above: Performed By: #### A 1C WTH eA, [id number], TSH3, PT, CBC, [id number], BMP, PTT #### [address] Erythrocyte distribution width (RBC) [Ratio] 17.0 % High 12.0-14.8 [facility] Comment on above: Performed By: #### A 1C WTH eA, [id number], TSH3, PT, CBC, [id number], BMP, PTT #### [address] Hematocrit (Bld) [Volume fraction] 39.4 % Normal 38.8-50.0 [facility] Comment on above: Performed By: #### A 1C WTH eA, [id number], TSH3, PT, CBC, [id number], BMP, PTT #### [address] Hemoglobin (Bld) [Mass/Vol] 12.8 g/dL Low 13.0-17.0 [facility] Comment on above: Performed By: #### A 1C WTH eA, [id number], TSH3, PT, CBC, [id number], BMP, PTT #### [address] Lymphocytes (Bld) [#/Vol] 1.5 10*3/uL Normal 1.00-4.8 [facility] Comment on above: Performed By: #### A 1C WTH eA, [id number], TSH3, PT, CBC, [id number], BMP, PTT #### [address] Lymphocytes/100 WBC (Bld) 19.5 % Normal . [facility] Comment on above: Performed By: #### A 1C WTH eA, [id number], TSH3, PT, CBC, [id number], BMP, PTT #### [address] MCH (RBC) [Entitic mass] 27.9 pg Normal 27.5-35.2 [facility] Comment on above: Performed By: #### A 1C WTH eA, [id number], TSH3, PT, CBC, [id number], BMP, PTT #### [address] MCV (RBC) [Entitic vol] 85.9 fL Normal 83.5-101 [facility] Comment on above: Performed By: #### A 1C WTH eA, [id number], TSH3, PT, CBC, [id number], BMP, PTT #### [address] Mean Corpuscular HGB Conc 32.5 g/dL Normal 32.5-35.6 [facility] Comment on above: Performed By: #### A 1C WTH eA, [id number], TSH3, PT, CBC, [id number], BMP, PTT #### [address] Monocytes (Bld) [#/Vol] 0.6 10*3/uL Normal 0.0-0.8 [facility] Comment on above: Performed By: #### A 1C WTH eA, [id number], TSH3, PT, CBC, [id number], BMP, PTT #### [address] Monocytes/100 WBC (Bld) 8.3 % Normal . T rianna [facility] Comment on above: Performed By: #### A 1C WTH eA, [id number], TSH3, PT, CBC, [id number], BMP, PTT #### [address] Neutrophils (Bld) [#/Vol] 5.2 10*3/uL Normal 1.8-7.7 [facility] Comment on above: Performed By: #### A 1C WTH eA, [id number], TSH3, PT, CBC, [id number], BMP, PTT #### [address] Neutrophils/100 WBC (Bld) 67.9 % Normal . [facility] Comment on above: Performed By: #### A 1C WTH eA, [id number], TSH3, PT, CBC, [id number], BMP, PTT #### [address] NRBC% 0.0 /100{WBC} Normal 0-0.5 [facility] Comment on above: Performed By: #### A 1C WTH eA, [id number], TSH3, PT, CBC, [id number], BMP, PTT #### [address] Platelet mean volume (Bld) [Entitic vol] 7.9 fL Normal 6.6-10.1 [facility] Comment on above: Performed By: #### A 1C WTH eA, [id number], TSH3, PT, CBC, [id number], BMP, PTT #### [address] Platelets (Bld) [#/Vol] 219 10*3/uL Normal 150-450 [facility] Comment on above: Performed By: #### A 1C WTH eA, [id number], TSH3, PT, CBC, [id number], BMP, PTT #### [facility] [address] RBC (Bld) [#/Vol] 4.58 10*6/uL Normal 3.90-5.60 [facility] Comment on above: Performed By: #### A 1C WTH eA, [id number], TSH3, PT, CBC, [id number], BMP, PTT #### [address] WBC (Bld) [#/Vol] 7.7 10*3/uL Normal 4.1-10.5 [facility] Comment on above: Performed By: #### A 1C WTH eA, [id number], TSH3, PT, CBC, [id number], BMP, PTT #### [address] Glucose Poct Glucometerson 0 06-21-2024 Commemt1 Glu2: Cleaned Meter Normal [facility] Comment on above: Result Comment: PERF ORMED BY: [place] [address] PATHOLOGIST FAMILY AND DIVORCE LEGAL ASSISTANT CORAL GOLD M.D. Performed By: #### A 1C WTH eA, [id number], TSH3, PT, CBC, [id number], BMP, PTT #### [address] Glucose [Mass/Vol] 123 mg/dL Normal [facility] Comment on above: Result Comment: [facility] Glucose Reference Range is dependent on time and content of last meal. Glucose of more than 200 mg/dL in a nonstressed, ambulatory subject supports the diagnosis of Diabetes Mellitus. Performed By: #### A 1C WTH eA, [id number], TSH3, PT, CBC, [id number], BMP, PTT #### [place] [address] [place] Glucose [Mass/Vol] 151 mg/dL Normal [facility] Comment on above: Result Comment: [place] [facility] Glucose Reference Range is dependent on time and content of last meal. Glucose of more than 200 mg/dL in a nonstressed, ambulatory subject supports the diagnosis of Diabetes Mellitus. PERFORMED BY: [place] [address] PATHOLOGIST FAMILY AND DIVORCE LEGAL ASSISTANT CORAL GOLD M.D. Performed By: #### A 1C WTH eA, [id number], TSH3, PT, CBC, [id number], BMP, PTT #### [place] [address] [place] Glucose [Mass/Vol] 129 mg/dL Normal [facility] Comment on above: Result Comment: [place] [facility] Glucose Reference Range is dependent on time and content of last meal. Glucose of more than 200 mg/dL in a nonstressed, ambulatory subject supports the diagnosis of Diabetes Mellitus. PERFORMED BY: [place] [address] PATHOLOGIST FAMILY AND DIVORCE LEGAL ASSISTANT CORAL GOLD M.D. Performed By: #### A 1C WTH eA, [id number], TSH3, PT, CBC, [id number], BMP, PTT #### [place] [address] [place] Glucose [Mass/Vol] 114 mg/dL Normal [facility] Comment on above: Result Comment: [place] Glucose Reference Range is dependent on time and content of last meal. Glucose of more than 200 mg/dL in a nonstressed, ambulatory subject supports the diagnosis of Diabetes Mellitus. PERFORMED BY: [place] [address] PATHOLOGIST FAMILY AND DIVORCE LEGAL ASSISTANT CORAL GOLD M.D. Performed By: #### A 1C WTH eA, [id number], TSH3, PT, CBC, [id number], BMP, PTT #### [place] [address] Prothrombin Time INRon 06-21 INR Coag (PPP) [Relative time] 2.2 {INR} Normal [facility] Comment on above: Result [...] heart valves: 3 - 4.5 PERFORMED BY: [place] [address] PATHOLOGIST FAMILY AND DIVORCE LEGAL ASSISTANT CORAL GOLD M.D. Performed By: #### A 1C WTH eA, [id number], TSH3, PT, CBC, [id number], BMP, PTT #### [address] PT Coag (PPP) [Time] 25.2 s High 9.0-12.9 [facility] Comment on above: Result Comment: A he matocrit value greater than 55% may lead to inaccurate results in coagulation testing. Patients having hematocrit values >55% require a special collection tube for coagulation studies. Please contact the laboratory at [phone] for redraw instructions. Performed By: #### A 1C WTH eA, [id number], TSH3, PT, CBC, [id number], BMP, PTT #### [address] Basic Metabolic Panelon -3 Anion gap [Moles/Vol] 11.8 mmol/L Normal 6.0-15.0 [facility] Comment on above: Performed By: #### A 1C WTH eA, [id number], TSH3, PT, CBC, [id number], BMP, PTT #### [address] Calcium [Mass/Vol] 9.0 mg/dL Normal 8.6-10.3 [facility] Comment on above: Performed By: #### A 1C WTH eA, [id number], TSH3, PT, CBC, [id number], BMP, PTT #### [address] Chloride [Moles/Vol] 98 mmol/L Normal 98-107 [facility] Comment on above: Performed By: #### A 1C WTH eA, [id number], TSH3, PT, CBC, [id number], BMP, PTT #### [address] CO2 [Moles/Vol] 27.1 mmol/L Normal 21.0-31.0 [facility] Comment on above: Performed By: #### A 1C WTH eA, [id number], TSH3, PT, CBC, [id number], BMP, PTT #### [address] Creatinine [Mass/Vol] 1.48 mg/dL High 0.70-1.30 [facility] Comment on above: Performed By: #### A 1C WTH eA, [id number], TSH3, PT, CBC, [id number], BMP, PTT #### [address] Creatinine Clr Calc Pharmacy 54.81 Normal [facility] Comment on above: Result Comment: PERF ORMED BY: [place] [address] PATHOLOGIST FAMILY AND DIVORCE LEGAL ASSISTANT CORAL GOLD M.D. Performed By: #### A 1C WTH eA, [id number], TSH3, PT, CBC, [id number], BMP, PTT #### [place] [address] [place] GFR/1.73 sq M.predicted MDRD (S/P/Bld) [Vol rate/Area] 48.126 mL/min/{1.73_m2} Normal [facility] Comment on above: Performed By: #### A 1C WTH eA, [id number], TSH3, PT, CBC, [id number], BMP, PTT #### [address] Glucose [Mass/Vol] 128 mg/dL High 70-100 [facility] Comment on above: Result Comment: [facility] Glucose Reference Range is dependent on time and content of last meal. Glucose of more than 200 mg/dL in a nonstressed, ambulatory subject supports the diagnosis of Diabetes Mellitus. ADA recommended reference range Performed By: #### A 1C WTH eA, [id number], TSH3, PT, CBC, [id number], BMP, PTT #### [address] Potassium [Moles/Vol] 3.9 mmol/L Normal 3.5-5.1 [facility] Comment on above: Performed By: #### A 1C WTH eA, [id number], TSH3, PT, CBC, [id number], BMP, PTT #### [address] Sodium [Moles/Vol] 133 mmol/L Low 136-145 [facility] Comment on above: Performed By: #### A 1C WTH eA, [id number], TSH3, PT, CBC, [id number], BMP, PTT #### [address] Urea nitrogen [Mass/Vol] 40 mg/dL High 7-25 [facility] Comment on above: Performed By: #### A 1C WTH eA, [id number], TSH3, PT, CBC, [id number], BMP, PTT #### [address] Complete Blood Count Auto Di ffon 06-20-2024 Basophils (Bld) [#/Vol] 0.1 10*3/uL Normal 0.0-0.2 [facility] Comment on above: Result Comment: PERF ORMED BY: [place] [address] PATHOLOGIST FAMILY AND DIVORCE LEGAL ASSISTANT CORAL GOLD M.D. Performed By: #### A 1C WTH eA, [id number], TSH3, PT, CBC, [id number], BMP, PTT #### [address] Basophils/100 WBC (Bld) 0.7 % Normal . [place] bl[place] [facility] Comment on above: Performed By: #### A 1C WTH eA, [id number], TSH3, PT, CBC, [id number], BMP, PTT #### [address] Eosinophils (Bld) [#/Vol] 0.2 10*3/uL Normal 0.0-0.45 [facility] Comment on above: Performed By: #### A 1C WTH eA, [id number], TSH3, PT, CBC, [id number], BMP, PTT #### [address] Eosinophils/100 WBC (Bld) 2.7 % Normal . [facility] Comment on above: Performed By: #### A 1C WTH eA, [id number], TSH3, PT, CBC, [id number], BMP, PTT #### [address] Erythrocyte distribution width (RBC) [Ratio] 16.5 % High 12.0-14.8 [facility] Comment on above: Performed By: #### A 1C WTH eA, [id number], TSH3, PT, CBC, [id number], BMP, PTT #### [address] Hematocrit (Bld) [Volume fraction] 39.5 % Normal 38.8-50.0 [facility] Comment on above: Performed By: #### A 1C WTH eA, [id number], TSH3, PT, CBC, [id number], BMP, PTT #### [address] Hemoglobin (Bld) [Mass/Vol] 12.6 g/dL Low 13.0-17.0 [facility] Comment on above: Performed By: #### A 1C WTH eA, [id number], TSH3, PT, CBC, [id number], BMP, PTT #### [address] Lymphocytes (Bld) [#/Vol] 1.6 10*3/uL Normal 1.00-4.8 [facility] Comment on above: Performed By: #### A 1C WTH eA, [id number], TSH3, PT, CBC, [id number], BMP, PTT #### [address] Lymphocytes/100 WBC (Bld) 18.3 % Normal . [facility] Comment on above: Performed By: #### A 1C WTH eA, [id number], TSH3, PT, CBC, [id number], BMP, PTT #### [address] MCH (RBC) [Entitic mass] 27.7 pg Normal 27.5-35.2 [facility] Comment on above: Performed By: #### A 1C WT eA, [id number], TSH3, PT, CBC, [id number], BMP, PTT #### [address] MCV (RBC) [Entitic vol] 86.8 fL Normal 83.5-101 T [facility] Comment on above: Performed By: #### A 1C WT eA, [id number], TSH3, PT, CBC, [id number], BMP, PTT #### [address] Mean Corpuscular HGB Conc 31.9 g/dL Low 32.5-35.6 [facility] Comment on above: Performed By: #### A 1C WTH eA, [id number], TSH3, PT, CBC, [id number], BMP, PTT #### [address] Monocytes (Bld) [#/Vol] 0.7 10*3/uL Normal 0.0-0.8 [facility] Comment on above: Performed By: #### A 1C WTH eA, [id number], TSH3, PT, CBC, [id number], BMP, PTT #### [address] Monocytes/100 WBC (Bld) 8.0 % Normal . [facility] Comment on above: Performed By: #### A 1C WTH eA, [id number], TSH3, PT, CBC, [id number], BMP, PTT #### [address] Neutrophils (Bld) [#/Vol] 6.1 10*3/uL Normal 1.8-7.7 [facility] Comment on above: Performed By: #### A 1C WTH eA, [id number], TSH3, PT, CBC, [id number], BMP, PTT #### [address] Neutrophils/100 WBC (Bld) 70.3 % Normal . [facility] Comment on above: Performed By: #### A 1C WTH eA, [id number], TSH3, PT, CBC, [id number], BMP, PTT #### [address] NRBC% 0.2 /100{WBC} Normal 0-0.5 [facility] Comment on above: Performed By: #### A 1C WTH eA, [id number], TSH3, PT, CBC, [id number], BMP, PTT #### [address] Platelet mean volume (Bld) [Entitic vol] 8.1 fL Normal 6.6-10.1 [facility] Comment on above: Performed By: #### A 1C WTH eA, [id number], TSH3, PT, CBC, [id number], BMP, PTT #### [address] Platelets (Bld) [#/Vol] 232 10*3/uL Normal 150-450 [facility] Comment on above: Performed By: #### A 1C WTH eA, [id number], TSH3, PT, CBC, [id number], BMP, PTT #### [facility] [address] RBC (Bld) [#/Vol] 4.55 10*6/uL Normal 3.90-5.60 [facility] Comment on above: Performed By: #### A 1C WTH eA, [id number], TSH3, PT, CBC, [id number], BMP, PTT #### [facility] [address] WBC (Bld) [#/Vol] 8.7 10*3/uL Normal 4.1-10.5 [facility] Comment on above: Performed By: #### A 1C WTH eA, [id number], TSH3, PT, CBC, [id number], BMP, PTT #### [address] Glucose Poct Glucometerson 0 06-20-2024 Glucose [Mass/Vol] 131 mg/dL Normal [facility] Comment on above: Result Comment: [facility] Glucose Reference Range is dependent on time and content of last meal. Glucose of more than 200 mg/dL in a nonstressed, ambulatory subject supports the diagnosis of Diabetes Mellitus. PERFORMED BY: [place] [address] PATHOLOGIST FAMILY AND DIV[employer]CE LEGAL ASSISTANT CORAL GOLD M.D. Performed By: #### A 1C WTH eA, [id number], TSH3, PT, CBC, [id number], BMP, PTT #### [address] Glucose [Mass/Vol] 130 mg/dL Normal [facility] Comment on above: Result Comment: [facility] Glucose Reference Range is dependent on time and content of last meal. Glucose of more than 200 mg/dL in a nonstressed, ambulatory subject supports the diagnosis of Diabetes Mellitus. PERFORMED BY: [place] [address] PATHOLOGIST FAMILY AND DIVORCE LEGAL ASSISTANT JIANLAN SUN M.D. Performed By: #### A 1C WTH eA, [id number], TSH3, PT, CBC, [id number], BMP, PTT #### [facility] [address] [place] [id number] [facility] Prothrombin Time INRon 06-20 INR Coag (PPP) [Relative time] 2.2 {INR} Normal [facility] Comment on above: Result [...] heart valves: 3 - 4.5 PERFORMED BY: [place] [address] PATHOLOGIST FAMILY AND DIVORCE LEGAL ASSISTANT CORAL GOLD M.D. Performed By: #### A 1C WTH eA, [id number], TSH3, PT, CBC, [id number], BMP, PTT #### [place] [id number] [facility] PT Coag (PPP) [Time] 25.4 s High 9.0-12.9 [facility] Comment on above: Result Comment: A he matocrit value greater than 55% may lead to inaccurate results in coagulation testing. Patients having hematocrit values >55% require a special collection tube for coagulation studies. Please contact the laboratory at [phone] for redraw instructions. Performed By: #### A 1C WTH eA, [id number], TSH3, PT, CBC, [id number], BMP, PTT #### [address] [address] [facility] A1C with Estimated Average G luon 06-19-2024 Glucose [Mass/Vol] 183 mg/dL Normal [facility] Comment on above: Result Comment: PERF ORMED BY: [address] [address] PATHOLOGIST FAMILY AND DIVORCE LEGAL ASSISTANT CORAL GOLD M.D. Performed By: #### A 1C WTH eA, [id number], TSH3, PT, CBC, [id number], BMP, PTT #### [facility] [address] Activated partial thrombopla stin time (aPTT) in platelet poor plasma by coagulation aOrdered By: Stalin Miranda on 06-19-2024 aPTT Coag (PPP) [Time] 38.4 s High 25.1-36.5 [facility] Comment on above: A hematocrit value g reater than 55% may lead to inaccurate results in coagulation testing. Patients having hematocrit values >55% require a special collection tube for coagulation studies. Please contact the laboratory at [phone] for redraw instructions. Basic Metabolic Panelon 05-23 Anion gap [Moles/Vol] 9.5 mmol/L Normal 6.0-15.0 [facility] Comment on above: Performed By: #### A 1C WTH eA, [id number], TSH3, PT, CBC, [id number], BMP, PTT #### [facility] [address] [place] [address] [place] Calcium [Mass/Vol] 9.5 mg/dL Normal 8.6-10.3 [facility] Comment on above: Performed By: #### A 1C WTH eA, [id number], TSH3, PT, CBC, [id number], BMP, PTT #### [facility] [address] [place] [address] [place] Chloride [Moles/Vol] 98 mmol/L Normal 98-107 [facility] Comment on above: Performed By: #### A 1C WTH eA, [id number], TSH3, PT, CBC, [id number], BMP, PTT #### [facility] [address] [place] [id number] [place] CO2 [Moles/Vol] 29.8 mmol/L Normal 21.0-31.0 [facility] Comment on above: Performed By: #### A 1C WTH eA, [id number], TSH3, PT, CBC, [id number], BMP, PTT #### [facility] [address] Creatinine [Mass/Vol] 1.65 mg/dL High 0.70-1.30 [facility] Comment on above: Performed By: #### A 1C WTH eA, [id number], TSH3, PT, CBC, [id number], BMP, PTT #### [facility] [address] Creatinine Clr Calc Pharmacy 49.73 Normal [facility] Comment on above: Performed By: #### A 1C WTH eA, [id number], TSH3, PT, CBC, [id number], BMP, PTT #### [facility] [address] [place] [address] [place] GFR/1.73 sq M.predicted MDRD (S/P/Bld) [Vol rate/Area] 42.239 mL/min/{1.73_m2} Normal [facility] Comment on above: Performed By: #### A 1C WTH eA, [id number], TSH3, PT, CBC, [id number], BMP, PTT #### [address] Glucose [Mass/Vol] 122 mg/dL High 70-100 [facility] Comment on above: Result Comment: [facility] Glucose Reference Range is dependent on time and content of last meal. Glucose of more than 200 mg/dL in a nonstressed, ambulatory subject supports the diagnosis of Diabetes Mellitus. ADA recommended reference range Performed By: #### A 1C WTH eA, [id number], TSH3, PT, CBC, [id number], BMP, PTT #### [facility] [address] Potassium [Moles/Vol] 4.3 mmol/L Normal 3.5-5.1 [facility] Comment on above: Performed By: #### A 1C WTH eA, [id number], TSH3, PT, CBC, [id number], BMP, PTT #### [facility] [address] [place] [id number] [facility] Sodium [Moles/Vol] 133 mmol/L Low 136-145 [facility] Comment on above: Performed By: #### A 1C WTH eA, [id number], TSH3, PT, CBC, [id number], BMP, PTT #### [address] Urea nitrogen [Mass/Vol] 47 mg/dL High 7-25 [facility] Comment on above: Performed By: #### A 1C WTH eA, [id number], TSH3, PT, CBC, [id number], BMP, PTT #### [address] Complete Blood Count Auto Di ffon 06-19-2024 Basophils (Bld) [#/Vol] 0.1 10*3/uL Normal 0.0-0.2 [facility] Comment on above: Result Comment: PERF ORMED BY: [place] [address] PATHOLOGIST FAMILY AND DIV[employer]CE LEGAL ASSISTANT CORAL GOLD M.D. Performed By: #### A 1C WTH eA, [id number], TSH3, PT, CBC, [id number], BMP, PTT #### [address] Basophils/100 WBC (Bld) 1.2 % Normal . [facility] Comment on above: Performed By: #### A 1C WTH eA, [id number], TSH3, PT, CBC, [id number], BMP, PTT #### [address] Eosinophils (Bld) [#/Vol] 0.2 10*3/uL Normal 0.0-0.45 [facility] Comment on above: Performed By: #### A 1C WTH eA, [id number], TSH3, PT, CBC, [id number], BMP, PTT #### [address] Eosinophils/100 WBC (Bld) 1.6 % Normal . [facility] Comment on above: Performed By: #### A 1C WTH eA, [id number], TSH3, PT, CBC, [id number], BMP, PTT #### [address] Erythrocyte distribution width (RBC) [Ratio] 16.6 % High 12.0-14.8 [facility] Comment on above: Performed By: #### A 1C WTH eA, [id number], TSH3, PT, CBC, [id number], BMP, PTT #### [address] Hematocrit (Bld) [Volume fraction] 39.1 % Normal 38.8-50.0 [facility] Comment on above: Performed By: #### A 1C WTH eA, [id number], TSH3, PT, CBC, [id number], BMP, PTT #### [address] Hemoglobin (Bld) [Mass/Vol] 12.8 g/dL Low 13.0-17.0 [facility] Comment on above: Performed By: #### A 1C WTH eA, [id number], TSH3, PT, CBC, [id number], BMP, PTT #### [address] Lymphocytes (Bld) [#/Vol] 1.9 10*3/uL Normal 1.00-4.8 [facility] Comment on above: Performed By: #### A 1C WTH eA, [id number], TSH3, PT, CBC, [id number], BMP, PTT #### [address] Lymphocytes/100 WBC (Bld) 19.8 % Normal . [facility] Comment on above: Performed By: #### A 1C WTH eA, [id number], TSH3, PT, CBC, [id number], BMP, PTT #### [address] MCH (RBC) [Entitic mass] 28.0 pg Normal 27.5-35.2 [facility] Comment on above: Performed By: #### A 1C WTH eA, [id number], TSH3, PT, CBC, [id number], BMP, PTT #### [address] MCV (RBC) [Entitic vol] 85.8 fL Normal 83.5-101 [facility] Comment on above: Performed By: #### A 1C WTH eA, [id number], TSH3, PT, CBC, [id number], BMP, PTT #### [address] Mean Corpuscular HGB Conc 32.6 g/dL Normal 32.5-35.6 [facility] Comment on above: Performed By: #### A 1C WTH eA, [id number], TSH3, PT, CBC, [id number], BMP, PTT #### [address] Monocytes (Bld) [#/Vol] 0.8 10*3/uL Normal 0.0-0.8 [facility] Comment on above: Performed By: #### A 1C WTH eA, [id number], TSH3, PT, CBC, [id number], BMP, PTT #### [address] Monocytes/100 WBC (Bld) 8.0 % Normal . [facility] Comment on above: Performed By: #### A 1C WTH eA, [id number], TSH3, PT, CBC, [id number], BMP, PTT #### [address] Neutrophils (Bld) [#/Vol] 6.8 10*3/uL Normal 1.8-7.7 [facility] Comment on above: Performed By: #### A 1C WTH eA, [id number], TSH3, PT, CBC, [id number], BMP, PTT #### [address] Neutrophils/100 WBC (Bld) 69.4 % Normal . [facility] Comment on above: Performed By: #### A 1C WTH eA, [id number], TSH3, PT, CBC, [id number], BMP, PTT #### [address] NRBC% 0.0 /100{WBC} Normal 0-0.5 [facility] Comment on above: Performed By: #### A 1C WTH eA, [id number], TSH3, PT, CBC, [id number], BMP, PTT #### [address] Platelet mean volume (Bld) [Entitic vol] 7.6 fL Normal 6.6-10.1 [facility] Comment on above: Performed By: #### A 1C WTH eA, [id number], TSH3, PT, CBC, [id number], BMP, PTT #### [address] Platelets (Bld) [#/Vol] 219 10*3/uL Normal 150-450 [facility] Comment on above: Performed By: #### A 1C WT eA, [id number], TSH3, PT, CBC, [id number], BMP, PTT #### [address] RBC (Bld) [#/Vol] 4.56 10*6/uL Normal 3.90-5.60 [facility] Comment on above: Performed By: #### A 1C WTH eA, [id number], TSH3, PT, CBC, [id number], BMP, PTT #### [address] WBC (Bld) [#/Vol] 9.7 10*3/uL Normal 4.1-10.5 [facility] Comment on above: Performed By: #### A 1C WTH eA, [id number], TSH3, PT, CBC, [id number], BMP, PTT #### [address] ECH echo transthoracicon ECH echo transthoracic [facility] [place] [address] [place] [address] Echocardiogram Signed Patient: Nirmal Chaidez MR#: [id number] 9 : 1945 Acct:[id number] Age/Sex: 78 / M ADM Date: 06/19/24 Loc: Room: [address] [place] [address] Type: ADM IN Attending Dr: Stalin Miranda MD Ordering Provider: Michael Mullen MD Date of Service: 06/19/24 ECH/ECH echo transthoracic: syncope Copies to: Milo Cameron MD, [facility] Michael Mullen MD Weight: 314 lb Performed [...] 32.2 cm/sec LV V1 VTI: 8.9 cm Electronically signed by: MILO CAMERON MD, [facility] on 06/20/2024 02:10 PM Transcribed By: SCV Performed At: 06/19/24 1428 Signed By: Milo Cameron MD, [facility] 06/20/24 1410 Normal [facility] Folate [Mass/volume] in Seru m or PlasmaOrdered By: Stalin Miranda on 06-19-2024 Folate [Mass/Vol] 7.4 ng/mL >5.9 [facility] Comment on above: Folate reference ran ge: >5.9 ng/mlThe WHO technical consultation on folate and vitamin [id number] has determined that folate concentrations lessthan 4 ng/ml are considered deficient. Glucose Poct Glucometerson 0 06-19-2024 Glucose [Mass/Vol] 104 mg/dL Normal [facility] Comment on above: Result Comment: [place] Glucose Reference Range is dependent on time and content of last meal. Glucose of more than 200 mg/dL in a nonstressed, ambulatory subject supports the diagnosis of Diabetes Mellitus. PERFORMED BY: [place] [address] PATHOLOGIST FAMILY AND DIVORCE LEGAL ASSISTANT CORAL GOLD M.D. Performed By: #### A 1C WTH eA, [id number], TSH3, PT, CBC, [id number], BMP, PTT #### [facility] [address] [place] [address] Commemt1 Glu2: Cleaned Meter Normal [facility] Comment on above: Result Comment: PERF ORMED BY: [place] [address] PATHOLOGIST FAMILY AND DIVORCE LEGAL ASSISTANT CORAL GOLD M.D. Performed By: #### A 1C WTH eA, [id number], TSH3, PT, CBC, [id number], BMP, PTT #### [facility] [address] Glucose [Mass/Vol] 109 mg/dL Normal [facility] Comment on above: Result Comment: [place] Glucose Reference Range is dependent on time and content of last meal. Glucose of more than 200 mg/dL in a nonstressed, ambulatory subject supports the diagnosis of Diabetes Mellitus. Performed By: #### A 1C WTH eA, [id number], TSH3, PT, CBC, [id number], BMP, PTT #### [address] Commemt1 Glu2: Cleaned Meter Normal [facility] Comment on above: Result Comment: PERF ORMED BY: [place] [address] PATHOLOGIST FAMILY AND DIVORCE LEGAL ASSISTANT CORAL GOLD M.D. Performed By: #### A 1C WTH eA, [id number], TSH3, PT, CBC, [id number], BMP, PTT #### [address] Glucose [Mass/Vol] 119 mg/dL Normal [facility] Comment on above: Result Comment: [place] Glucose Reference Range is dependent on time and content of last meal. Glucose of more than 200 mg/dL in a nonstressed, ambulatory subject supports the diagnosis of Diabetes Mellitus. Performed By: #### A 1C WTH eA, [id number], TSH3, PT, CBC, [id number], BMP, PTT #### [address] Glucose [Mass/Vol] 116 mg/dL Normal [facility] Comment on above: Result Comment: [place] om Glucose Reference Range is dependent on time and content of last meal. Glucose of more than 200 mg/dL in a nonstressed, ambulatory subject supports the diagnosis of Diabetes Mellitus. PERFORMED BY: [place] [address] PATHOLOGIST FAMILY AND DIVORCE LEGAL ASSISTANT CORAL GOLD M.D. Performed By: #### A 1C WTH eA, [id number], TSH3, PT, CBC, [id number], BMP, PTT #### [address] [place] [address] [facility] Glucose mean value [Mass/vol ume] in Blood Estimated from glycated hemoglobinOrdered By: Stalin zarina on 06-19-2024 Average glucose Estimated from glycated hemoglobin (Bld) [Mass/Vol] 183 mg/dL [facility] Hemoglobin A1c percentageOrd ered By: Stalin Medinazarina on 06-19-2024 HbA1c (Bld) [Mass fraction] 8.0 % High 4.3-5.6 [facility] Comment on above: Increased risk for d iabetes: 5.7 - 6.4diabetes: >6.4glycemic control for adults with diabetes: <7.0 Result Comment: Incr eased risk for diabetes: 5.7 - 6.4 diabetes: >6.4 glycemic control for adults with diabetes: <7.0 Performed By: #### A 1C WTH eA, [id number], TSH3, PT, CBC, [id number], BMP, PTT #### [facility] [address] [place] [id number] [facility] Partial Thromboplastin Timeo n 06-19-2024 aPTT Coag (Bld) [Time] 38.4 s High 25.1-36.5 [facility] Comment on above: Result Comment: A he matocrit value greater than 55% may lead to inaccurate results in coagulation testing. Patients having hematocrit values >55% require a special collection tube for coagulation studies. Please contact the laboratory at [phone] for redraw instructions. PERFORMED BY: [place] [address] PATHOLOGIST FAMILY AND DIVORCE LEGAL ASSISTANT CORAL GOLD M.D. Performed By: #### A 1C WTH eA, [id number], TSH3, PT, CBC, [id number], BMP, PTT #### [place] [id number] [facility] Prothrombin Time INRon 06-19 INR Coag (PPP) [Relative time] 2.4 {INR} Normal [facility] Comment on above: Result [...] valves: 3 - 4.5 Performed By: #### A 1C WTH eA, [id number], TSH3, PT, CBC, [id number], BMP, PTT #### [address] PT Coag (PPP) [Time] 27.1 s High 9.0-12.9 [facility] Comment on above: Result Comment: A he matocrit value greater than 55% may lead to inaccurate results in coagulation testing. Patients having hematocrit values >55% require a special collection tube for coagulation studies. Please contact the laboratory at [phone] for redraw instructions. Performed By: #### A 1C WTH eA, [id number], TSH3, PT, CBC, [id number], BMP, PTT #### [address] Thyrotropin [Units/volume] i n Serum or PlasmaOrdered By: Stalin Miranda on 06-19-2024 TSH Qn 2.14 m[IU]/L Normal 0.45-5.33 [facility] Comment on above: Performed By: #### A 1C WTH eA, [id number], TSH3, PT, CBC, [id number], BMP, PTT #### [address] Troponin I High Sensitivityo n 06-19-2024 Troponin I High Sensitivity 27.6 pg/mL High 0.0-20.0 [facility] Comment on above: Result Comment: PERF ORMED BY: [place] [address] PATHOLOGIST FAMILY AND DIV[employer]CE LEGAL ASSISTANT CORAL GOLD M.D. Performed By: #### A 1C WTH eA, [id number], TSH3, PT, CBC, [id number], BMP, PTT #### [place] [id number] [facility] Troponin I.cardiac [Mass/vol ume] in Serum or Plasma by Detection limit <= 0.01 ng/Ordered By: Stalin Miranda on 06-19-2024 Troponin I.cardiac DL <= 0.01 ng/mL [Mass/Vol] 27.6 pg/mL High 0.0-20.0 [facility] Vit. B12/Folate Profileon Folate 7.4 ng/mL Normal >5.9 [facility] Comment on above: Result Comment: [place] te reference range: >5.9 ng/ml The WHO technical consultation on folate and vitamin b12 deficiencies has determined that folate concentrations less than 4 ng/ml are considered deficient. Performed By: #### A 1C WTH eA, [id number], TSH3, PT, CBC, [id number], BMP, PTT #### [address] Vitamin B12 ser/plasOrdered By: Stalin Miranda on 06-19-2024 Cobalamin (Vitamin B12) [Mass/Vol] 188 pg/mL Normal 180-914 [facility] Comment on above: Performed By: #### A 1C WTH eA, [id number], TSH3, PT, CBC, [id number], BMP, PTT #### [place] [id number] [facility] Vitamin D 25 Hydroxy Totalon 06-19-2024 Vitamin D 25 Hydroxy Total 26.8 ng/mL Low 30-100 [facility] Comment on above: Result Comment: MARYURI MIN D STATUS 25(OH)VITAMIN D RANGE (ng/mL) Deficient <20 Insufficient 20 to <30 Sufficient 30 to 100 Reference: Manuela MF,Sharad NC, Stephany-Maurice TOVAR, et al. Evaluation,treatment, and prevention of vitamin D deficiency; an Endocrine Society clinical practice guideline. JCEM. 2010; 96(7):1911-30. PERFORMED BY: [place] [address] PATHOLOGIST FAMILY AND DIVORCE LEGAL ASSISTANT CORAL GOLD M.D. Performed By: #### A 1C WTH eA, [id number], TSH3, PT, CBC, [id number], BMP, PTT #### [facility] [address] Vitamin D+Metabolites [Mass/ volume] in Serum or PlasmaOrdered By: Stalin Miranda on 06-19-2024 Vitamin D+Metabolites [Mass/Vol] 26.8 ng/mL Low 30-100 [facility] Comment on above: VITAMIN D STATUS 25( [place])VITAMIN D RANGE (ng/mL) Deficient <20 Insufficient 20 to <30Sufficient 30 to 100Reference: Manuela MF,Sharad LUGO, [place] TOVAR, et al. Evaluation,treatment, and prevention of vitamin D deficiency; an Endocrine Society clinical practice guideline. JCEM. 2010; 96(7):1911-30. Alanine aminotransferase [En zymatic activity/volume] in Serum or PlasmaOrdered By: Domenico Betancourt on 06-18-2024 ALT [Catalytic activity/Vol] 8 U/L Normal 7-52 [facility] Comment on above: Performed By: #### A 1C WTH eA, [id number], TSH3, PT, CBC, [id number], BMP, PTT #### [facility] [address] [place] [id number] [place] Albumin [Mass/volume] in Ser um or Plasma by Bromocresol green (BCG) dye binding methoOrdered By: Domenico Betancourt on 06-18-2024 Albumin BCG dye [Mass/Vol] 3.9 g/dL 3.5-5.7 [facility] Alkaline phosphatase [Enzyma tic activity/volume] in Serum or PlasmaOrdered By: Domenico Betancourt on 06-18-2024 ALP [Catalytic activity/Vol] 85 U/L Normal 34-104 [facility] Comment on above: Performed By: #### A 1C WTH eA, [id number], TSH3, PT, CBC, [id number], BMP, PTT #### [facility] [address] [place] [address] [facility] Aspartate aminotransferase [ Enzymatic activity/volume] in Serum or PlasmaOrdered By: Domenico Betancourt on 06-18-2024 AST [Catalytic activity/Vol] 11 U/L Low 13-39 [facility] Comment on above: Performed By: #### A 1C WTH eA, [id number], TSH3, PT, CBC, [id number], BMP, PTT #### [address] Automated basophil %Ordered By: Domenico Betancourt on 06-18-2024 Basophils/100 WBC (Bld) 0.6 % Normal . [facility] Comment on above: Performed By: #### A 1C WTH eA, [id number], TSH3, PT, CBC, [id number], BMP, PTT #### [address] Automated basophil countOrde red By: Domenico Betancourt on 06-18-2024 Basophils (Bld) [#/Vol] 0.1 10*3/uL Normal 0.0-0.2 [facility] Comment on above: Result Comment: PERF ORMED BY: [place] [address] PATHOLOGIST FAMILY AND [employer] LEGAL ASSISTANT CORAL GOLD M.D. Performed By: #### A 1C WTH eA, [id number], TSH3, PT, CBC, [id number], BMP, PTT #### [address] Automated blood monocyte cou ntOrdered By: Domenico Betancourt on 06-18-2024 Monocytes (Bld) [#/Vol] 0.7 10*3/uL Normal 0.0-0.8 [facility] Comment on above: Performed By: #### A 1C WTH eA, [id number], TSH3, PT, CBC, [id number], BMP, PTT #### [address] Automated eosinophil %Ordere d By: Domenico Betancourt on 06-18-2024 Eosinophils/100 WBC (Bld) 1.1 % Normal . [facility] Comment on above: Performed By: #### A 1C WTH eA, [id number], TSH3, PT, CBC, [id number], BMP, PTT #### [address] Automated eosinophil countOr dered By: Domenico Betancourt on 06-18-2024 Eosinophils (Bld) [#/Vol] 0.1 10*3/uL Normal 0.0-0.45 [facility] Comment on above: Performed By: #### A 1C WTH eA, [id number], TSH3, PT, CBC, [id number], BMP, PTT #### [address] Automated monocyte %Ordered By: Domenico Betancourt on 06-18-2024 Monocytes/100 WBC (Bld) 5.6 % Normal . [facility] Comment on above: Performed By: #### A 1C WT eA, [id number], TSH3, PT, CBC, [id number], BMP, PTT #### [address] Automated neutrophil %Ordere d By: Domenico Betancourt on 06-18-2024 Neutrophils/100 WBC (Bld) 73.9 % Normal . [facility] Comment on above: Performed By: #### A 1C WTH eA, [id number], TSH3, PT, CBC, [id number], BMP, PTT #### [address] BNP ser/plasOrdered By: Edgardo Betancourt on 06-18-2024 Natriuretic peptide B (Bld) [Mass/Vol] 50.0 pg/mL Normal 5-100 [facility] Comment on above: Result Comment: PERF ORMED BY: [place] [address] PATHOLOGIST FAMILY AND [employer] LEGAL ASSISTANT CORAL GOLD M.D. Performed By: #### A 1C WTH eA, [id number], TSH3, PT, CBC, [id number], BMP, PTT #### [address] Bacteria [Presence] in Urine by AutomatedOrdered By: Domenico Betancourt on 06-18-2024 Bacteria Auto Ql (U) None seen [HPF] None Seen [facility] Basic Metabolic Panelon 05-22 Creatinine Clr Calc Pharmacy 59.12 Normal [facility] Comment on above: Performed By: #### A 1C WTH eA, [id number], TSH3, PT, CBC, [id number], BMP, PTT #### [facility] [address] GFR/1.73 sq M.predicted MDRD (S/P/Bld) [Vol rate/Area] 51.445 mL/min/{1.73_m2} Normal [facility] Comment on above: Performed By: #### A 1C WTH eA, [id number], TSH3, PT, CBC, [id number], BMP, PTT #### [facility] [address] Bilirubin Test strip Ql (U)O rdered By: Domenico Betancourt on 06-18-2024 Bilirubin Ql (U) Negative Negative [facility] Bilirubin.direct [Mass/volum e] in Serum or PlasmaOrdered By: Domenico Betancourt on 06-18-2024 Bilirubin.direct [Mass/Vol] 0.20 mg/dL High 0.03-0.18 [facility] Bilirubin.total [Mass/volume ] in Serum or PlasmaOrdered By: Domenico Betancourt on 06-18-2024 Bilirubin [Mass/Vol] 0.6 mg/dL Normal 0.3-1.0 [facility] Comment on above: Performed By: #### A 1C WTH eA, [id number], TSH3, PT, CBC, [id number], BMP, PTT #### [facility] [address] COVID CepheidOrdered By: Frantz Betancourt on 06-18-2024 SARS-CoV-2 (COVID-19) Ab IA Ql Negative Negative [facility] Comment on above: This is a duplicate Cepheid Xpert Xpress CoV-2/Flu/RSV Plus RNA by RT-PCR result to be used for statistical tracking purpose only. SARS-CoV-2 (COVID-19) RNA NA+probe Ql (Unsp spec) [facility] COVID-19 / Flu A/B / RSV PCR [...] or Cepheid Disclaimer revoked sooner. PERFORMED BY: [place] [address] PATHOLOGIST FAMILY AND [employer] LEGAL ASSISTANT CORAL GOLD M.D. Normal [facility] Comment on above: Performed By: #### A 1C WTH eA, [id number], TSH3, PT, CBC, [id number], BMP, PTT #### [address] abdomen pelvis wo conon 0 06-18-2024 CT abdomen pelvis wo con [facility] [place] [address] [place] [address] CT Scan Report Signed Patient: Nirmal Chaidez MR#: [id number] 9 : 1945 Acct:[id number] Age/Sex: 78 / M ADM Date: 06/18/24 Loc: ER Room: Type: [facility] ER Attending Dr: Copies to: Domenico Betancourt [...] Norberto Villalta M.D.06/18/2024 5:11 PM Dictation Location: [place] [address] Transcribed By: EVAN 06/18/24 171 Dictated By: Norberto Villalta II, MD 06/18/24 170 Signed By: 06/18/24 171 Normal [facility] Calcium [Mass/volume] in Ser um or PlasmaOrdered By: Domenico Betancourt on 06-18-2024 Calcium [Mass/Vol] 9.7 mg/dL Normal 8.6-10.3 [facility] Comment on above: Performed By: #### A 1C WTH eA, [id number], TSH3, PT, CBC, [id number], BMP, PTT #### [facility] [address] Carbon dioxide, total [Moles /volume] in Serum or PlasmaOrdered By: Domenico Betancourt on 06-18-2024 CO2 [Moles/Vol] 25.8 mmol/L Normal 21.0-31.0 [facility] Comment on above: Performed By: #### A 1C WTH eA, [id number], TSH3, PT, CBC, [id number], BMP, PTT #### [facility] [address] [place] [address] [facility] Cepheid COVID PCR Negativeon 06-18-2024 SARS-CoV-2 (COVID-19) RNA NA+probe Ql (Unsp spec) Negative Normal Negative [facility] Comment on above: Result Comment: This is a duplicate CepSegetisid Xpert Xpress CoV-2/Flu/RSV Plus RNA by RT-PCR result to be used for statistical tracking purpose only. PERFORMED BY: [place] [address] PATHOLOGIST FAMILY AND DIVORCE LEGAL ASSISTANT CORAL GOLD M.D. Performed By: #### A 1C WTH eA, [id number], TSH3, PT, CBC, [id number], BMP, PTT #### [address] Chloride [Moles/volume] in S karla or PlasmaOrdered By: Domenico Betancourt on 06-18-2024 Chloride [Moles/Vol] 93 mmol/L Low 98-107 [facility] Comment on above: Performed By: #### A 1C WTH eA, [id number], TSH3, PT, CBC, [id number], BMP, PTT #### [address] Color of Urine by AutoOrdere d By: Domenico Betancourt on 06-18-2024 Color (U) Light-yellow Normal Yellow [facility] Comment on above: Order Comment: Name Collection Type:: Clean-Voided Midstream Performed By: #### A 1C WTH eA, [id number], TSH3, PT, CBC, [id number], BMP, PTT #### [address] Complete Blood Count Auto Di ffon 06-18-2024 Mean Corpuscular HGB Conc 32.2 g/dL Low 32.5-35.6 [facility] Comment on above: Performed By: #### A 1C WTH eA, [id number], TSH3, PT, CBC, [id number], BMP, PTT #### [place] [address] [place] Monocytes/100 WBC (Bld) 19.75 % Normal 0.00-20.00 [facility] Comment on above: Performed By: #### A 1C WTH eA, [id number], TSH3, PT, CBC, [id number], BMP, PTT #### [facility] [address] [place] [address] [place] NRBC% 0.1 /100{WBC} Normal 0-0.5 [facility] Comment on above: Performed By: #### A 1C WTH eA, [id number], TSH3, PT, CBC, [id number], BMP, PTT #### [facility] [address] Creatinine [Mass/volume] in Serum or PlasmaOrdered By: Domenico Betancourt on 06-18-2024 Creatinine [Mass/Vol] 1.40 mg/dL High 0.70-1.30 [facility] Comment on above: Performed By: #### A 1C WTH eA, [id number], TSH3, PT, CBC, [id number], BMP, PTT #### [facility] [address] Dipstick and Microscopicon 0 06-18-2024 Bacteria,Urine None Seen Normal None Seen [facility] Comment on above: Order Comment: Name Collection Type:: Clean-Voided Midstream Performed By: #### A 1C WTH eA, [id number], TSH3, PT, CBC, [id number], BMP, PTT #### [facility] [address] Bilirubin,Urine Negative Normal Negative [facility] Comment on above: Order Comment: Name Collection Type:: Clean-Voided Midstream Performed By: #### A 1C WTH eA, [id number], TSH3, PT, CBC, [id number], BMP, PTT #### [facility] [address] [place] [id number] [place] Glucose Ql (U) Normal Normal Normal [facility] Comment on above: Order Comment: Name Collection Type:: Clean-Voided Midstream Performed By: #### A 1C WTH eA, [id number], TSH3, PT, CBC, [id number], BMP, PTT #### [facility] [address] Hyaline Casts,Urine 0-8 Normal 0-8 [facility] Comment on above: Order Comment: Name Collection Type:: Clean-Voided Midstream Performed By: #### A 1C WTH eA, [id number], TSH3, PT, CBC, [id number], BMP, PTT #### [place] [address] [place] Mucus,Urine Rare Normal [facility] Comment on above: Order Comment: Name Collection Type:: Clean-Voided Midstream Result Comment: PERF ORMED BY: [place] [address] PATHOLOGIST FAMILY AND [employer] LEGAL ASSISTANT CORAL GOLD M.D. Performed By: #### A 1C WTH eA, [id number], TSH3, PT, CBC, [id number], BMP, PTT #### [place] [address] [place] Nitrite,Urine Negative Normal Negative [facility] Comment on above: Order Comment: Name Collection Type:: Clean-Voided Midstream Performed By: #### A 1C WTH eA, [id number], TSH3, PT, CBC, [id number], BMP, PTT #### [place] [address] [place] Occult Blood,Urine 2+ High Negative [facility] Comment on above: Order Comment: Name Collection Type:: Clean-Voided Midstream Result Comment: PERF ORMED BY: [place] [address] PATHOLOGIST FAMILY AND DIV[employer]CE LEGAL ASSISTANT CORAL GOLD M.D. Performed By: #### A 1C WTH eA, [id number], TSH3, PT, CBC, [id number], BMP, PTT #### [place] [id number] [place] Protein,Urine Negative Normal Negative [facility] Comment on above: Order Comment: Name Collection Type:: Clean-Voided Midstream Performed By: #### A 1C WTH eA, [id number], TSH3, PT, CBC, [id number], BMP, PTT #### [address] [place] [address] [place] RBC,Urine 20-49 High 0-4 [facility] Comment on above: Order Comment: Name Collection Type:: Clean-Voided Midstream Performed By: #### A 1C WTH eA, [id number], TSH3, PT, CBC, [id number], BMP, PTT #### [address] Specificy [place],Urine 1.014 Normal 1.00 1-1.03 0 [facility] Comment on above: Order Comment: Name Collection Type:: Clean-Voided Midstream Performed By: #### A 1C WTH eA, [id number], TSH3, PT, CBC, [id number], BMP, PTT #### [address] Squamous Epithelial Cell,Urine 1-2 Normal 0-2 [facility] Comment on above: Order Comment: Name Collection Type:: Clean-Voided Midstream Performed By: #### A 1C WTH eA, [id number], TSH3, PT, CBC, [id number], BMP, PTT #### [address] Urobilinogen,Urine Normal Normal Normal [facility] Comment on above: Order Comment: Name Collection Type:: Clean-Voided Midstream Performed By: #### A 1C WTH eA, [id number], TSH3, PT, CBC, [id number], BMP, PTT #### [place] [address] [place] WBC,Urine 1-2 Normal 0-4 [facility] Comment on above: Order Comment: Name Collection Type:: Clean-Voided Midstream Performed By: #### A 1C WTH eA, [id number], TSH3, PT, CBC, [id number], BMP, PTT #### [address] ECG 12 lead ECGon 06-18-2024 ECG 12 lead ECG [facility] [place] [place] [address] Electrocardiograph Report Signed Patient: Nirmal Chaidez MR#: [id number] 9 : 1945 Acct:[id number] Age/Sex: 78 / M ADM Date: 06/19/24 Loc: Room: [address] [place] [address] Type: ADM IN Attending Dr: Stalin Miranda [...] ischemia Abnormal ECG Confirmed by RAKESH OCONNELL [facility], MILO ([id number]) on 06/20/2024 4:29:19 PM Referred By: Electronically Signed By: MILO CAMERON MD FAC Transcribed By: MUS Signed By Milo Cameron MD, FACC 06/20/24 0333 Normal [facility] Epithelial cells.squamous [# /area] in Urine sediment by Automated countOrdered By: Domenico Betancourt on 06-18-2024 Epithelial cells.squamous Auto (Urine sed) [#/Area] 1-2 [HPF] 0-2 [facility] Erythrocyte distribution wid th [Ratio] by Automated countOrdered By: Domenico Betancourt on 06-18-2024 Erythrocyte distribution width (RBC) [Ratio] 16.8 % High 12.0-14.8 [facility] Comment on above: Performed By: #### A 1C WT eA, [id number], TSH3, PT, CBC, [id number], BMP, PTT #### [facility] [address] Erythrocytes [#/area] in Uri ne sediment by Automated countOrdered By: Domenico Betancourt on 06-18-2024 RBC Auto (Urine sed) [#/Area] 20-49 [HPF] High 0-4 [facility] Erythrocytes [#/volume] in B lood by Automated countOrdered By: Domenico Betancourt on 06-18-2024 RBC (Bld) [#/Vol] 5.29 10*6/uL Normal 3.90-5.60 [facility] Comment on above: Performed By: #### A 1C WTH eA, [id number], TSH3, PT, CBC, [id number], BMP, PTT #### [facility] [address] [place] [address] [place] Glucose Poct Glucometerson 0 06-18-2024 Glucose [Mass/Vol] 119 mg/dL Normal [facility] Comment on above: Result Comment: [place] om Glucose Reference Range is dependent on time and content of last meal. Glucose of more than 200 mg/dL in a nonstressed, ambulatory subject supports the diagnosis of Diabetes Mellitus. PERFORMED BY: [place] [address] PATHOLOGIST FAMILY AND [employer] LEGAL ASSISTANT CORAL GOLD M.D. Performed By: #### A 1C WTH eA, [id number], TSH3, PT, CBC, [id number], BMP, PTT #### [facility] [address] [place] [address] [place] Glucose [Mass/volume] in Ser um or PlasmaOrdered By: Domenico Betancourt on 06-18-2024 Glucose [Mass/Vol] 158 mg/dL High 70-100 [facility] Comment on above: ADA recommended refe rence rangeRandom Glucose Reference Range is dependent on time and content of last meal. Glucose of more than 200 mg/dL in a nonstressed, ambulatory subject supports the diagnosis of Diabetes Mellitus. Result Comment: [place] om Glucose Reference Range is dependent on time and content of last meal. Glucose of more than 200 mg/dL in a nonstressed, ambulatory subject supports the diagnosis of Diabetes Mellitus. ADA recommended reference range Performed By: #### A 1C WTH eA, [id number], TSH3, PT, CBC, [id number], BMP, PTT #### [facility] [address] [place] [address] [place] Glucose [Mass/volume] in Uri ne by Test stripOrdered By: Domenico Betancourt on 06-18-2024 Glucose Test strip (U) [Mass/Vol] Normal mg/dL Normal [facility] Hematocrit [Volume Fraction] of Blood by Automated countOrdered By: Domenico Mcclurearthy on 06-18-2024 Hematocrit (Bld) [Volume fraction] 45.6 % Normal 38.8-50.0 [facility] Comment on above: Performed By: #### A 1C WTH eA, [id number], TSH3, PT, CBC, [id number], BMP, PTT #### [address] Hemoglobin Test strip Ql (U) Ordered By: Domenico Betancourt on 06-18-2024 Hemoglobin Ql (U) 2+ High Negative [facility] Hemoglobin [Mass/volume] in BloodOrdered By: Domenico Betancourt on 06-18-2024 Hemoglobin (Bld) [Mass/Vol] 14.7 g/dL Normal 13.0-17.0 [facility] Comment on above: Performed By: #### A 1C WTH eA, [id number], TSH3, PT, CBC, [id number], BMP, PTT #### [address] Hepatic Panelon 06-18-2024 Albumin [Mass/Vol] 3.9 g/dL Normal 3.5-5.7 [facility] Comment on above: Performed By: #### A 1C WTH eA, [id number], TSH3, PT, CBC, [id number], BMP, PTT #### [address] Bilirubin,Indirect 0.4 mg/dL Normal [facility] Comment on above: Performed By: #### A 1C WTH eA, [id number], TSH3, PT, CBC, [id number], BMP, PTT #### [address] Bilirubin.indirect [Mass/Vol] 0.20 mg/dL High 0.03-0.18 [facility] Comment on above: Performed By: #### A 1C WTH eA, [id number], TSH3, PT, CBC, [id number], BMP, PTT #### [facility] [address] [place] [address] [place] Hyaline casts [#/area] in Ur ine sediment by Automated countOrdered By: Domenico Betancourt on 06-18-2024 Hyaline casts Auto (Urine sed) [#/Area] 0-8 [LPF] 0-8 [facility] Ketones [Presence] in Urine by Test stripOrdered By: Domenico Betancourt on 06-18-2024 Ketones Ql (U) Negative Normal Negative [facility] Comment on above: Order Comment: Name Collection Type:: Clean-Voided Midstream Performed By: #### A 1C WTH eA, [id number], TSH3, PT, CBC, [id number], BMP, PTT #### [facility] [address] [place] [address] [place] Leukocyte esterase [Presence ] in Urine by Test stripOrdered By: Domenico Betancourt on 06-18-2024 Leukocyte esterase Test strip Ql (U) Negative Normal Negative [facility] Comment on above: Order Comment: Name Collection Type:: Clean-Voided Midstream Performed By: #### A 1C WTH eA, [id number], TSH3, PT, CBC, [id number], BMP, PTT #### [facility] [address] [place] [address] [place] Leukocytes [#/area] in Urine sediment by Automated countOrdered By: Domenico Betancourt on 06-18-2024 WBC Auto (Urine sed) [#/Area] 1-2 [HPF] 0-4 [facility] Leukocytes [#/volume] correc faraz for nucleated erythrocytes in Blood by Automated counOrdered By: Domenico Betancourt on 06-18-2024 WBC corrected for nucl RBC Auto (Bld) [#/Vol] 11.6 10*3/uL High 4.1-10.5 [facility] Leukocytes [#/volume] in Blo od by Automated countOrdered By: Domenico Betancourt on 06-18-2024 WBC (Bld) [#/Vol] 11.6 10*3/uL High 4.1-10.5 [facility] Comment on above: Performed By: #### A 1C WTH eA, [id number], TSH3, PT, CBC, [id number], BMP, PTT #### [address] Lipase [Enzymatic activity/v olume] in Serum or PlasmaOrdered By: Domenico Betancourt on 06-18-2024 Lipase [Catalytic activity/Vol] 18.0 U/L Normal 11.0-82.0 [facility] Comment on above: Result Comment: PERF ORMED BY: [place] [address] PATHOLOGIST FAMILY AND [employer] LEGAL ASSISTANT CORAL GOLD M.D. Performed By: #### A 1C WTH eA, [id number], TSH3, PT, CBC, [id number], BMP, PTT #### [address] Lymphocytes [#/volume] in Bl ood by Automated countOrdered By: Domenico Betancourt on 06-18-2024 Lymphocytes (Bld) [#/Vol] 2.2 10*3/uL Normal 1.00-4.8 [facility] Comment on above: Performed By: #### A 1C WTH eA, [id number], TSH3, PT, CBC, [id number], BMP, PTT #### [place] [address] [place] Lymphocytes/100 leukocytes i n Blood by Automated countOrdered By: Domenico Betancourt on 06-18-2024 Lymphocytes/100 WBC (Bld) 18.8 % Normal . [facility] Comment on above: Performed By: #### A 1C WTH eA, [id number], TSH3, PT, CBC, [id number], BMP, PTT #### [place] [address] [place] MCH [Entitic mass] by Automa faraz countOrdered By: Domenico Betancourt on 06-18-2024 MCH (RBC) [Entitic mass] 27.8 pg Normal 27.5-35.2 [facility] Comment on above: Performed By: #### A 1C WT eA, [id number], TSH3, PT, CBC, [id number], BMP, PTT #### [facility] [address] MCHC Auto (RBC) [Mass/Vol]Or dered By: Domenico Betancourt on 06-18-2024 MCHC (RBC) [Mass/Vol] 32.2 g/dL Low 32.5-35.6 [facility] MCV [Entitic volume] by Auto mated countOrdered By: Domenico Betancourt on 06-18-2024 MCV (RBC) [Entitic vol] 86.2 fL Normal 83.5-101 [facility] Comment on above: Performed By: #### A 1C WTH eA, [id number], TSH3, PT, CBC, [id number], BMP, PTT #### [facility] [address] Monocyte distribution width [Entitic volume] in Blood by AutomatedOrdered By: Domenico Betancourt on 06-18-2024 Monocyte distribution width Auto (Bld) [Entitic vol] 19.75 % 0.00-20.00 [facility] Mucus [Presence] in Urine by AutomatedOrdered By: Domenico Betancourt on 06-18-2024 Mucus Auto Ql (U) Rare [LPF] [facility] Neutrophils [#/volume] in Bl ood by Automated countOrdered By: Domenico Betancourt on 06-18-2024 Neutrophils (Bld) [#/Vol] 8.6 10*3/uL High 1.8-7.7 [facility] Comment on above: Performed By: #### A 1C WT eA, [id number], TSH3, PT, CBC, [id number], BMP, PTT #### [facility] [address] Nitrite Test strip Ql (U)Ord ered By: Domenico Betancourt on 06-18-2024 Nitrite Ql (U) Negative Negative [facility] No Panel InformationOrdered By: Domenico Betancorut on 06-18-2024 Estimated GFR (CKD-EPI) 51.445 mL/Min [facility] Creatinine Clearance (Chem 59.12 [facility] Nucleated erythrocytes [Pres ence] in Blood by Automated countOrdered By: Domenico Betancourt on 06-18-2024 Nucleated RBC Auto Ql (Bld) 0.1 /100{WBC} 0-0.5 [facility] Platelet mean volume [Entiti c volume] in Blood by Automated countOrdered By: Domenico Betancourt on 06-18-2024 Platelet mean volume (Bld) [Entitic vol] 8.1 fL Normal 6.6-10.1 [facility] Comment on above: Performed By: #### A 1C WT eA, [id number], TSH3, PT, CBC, [id number], BMP, PTT #### [facility] [address] [place] [address] [place] Platelets [#/volume] in Bloo d by Automated countOrdered By: Domenico Betancourt on 06-18-2024 Platelets (Bld) [#/Vol] 255 10*3/uL Normal 150-450 [facility] Comment on above: Performed By: #### A 1C WT eA, [id number], TSH3, PT, CBC, [id number], BMP, PTT #### [facility] [address] [place] [address] [place] Potassium [Moles/volume] in Serum or PlasmaOrdered By: Domenico Betancourt on 06-18-2024 Potassium [Moles/Vol] 4.3 mmol/L Normal 3.5-5.1 [facility] Comment on above: Performed By: #### A 1C WTH eA, [id number], TSH3, PT, CBC, [id number], BMP, PTT #### [facility] [address] Protein Test strip (U) [Mass /Vol]Ordered By: Domenico Betancourt on 06-18-2024 Protein (U) [Mass/Vol] Negative Negative [facility] Protein [Mass/volume] in Ser um or PlasmaOrdered By: Domenico Betancourt on 06-18-2024 Protein [Mass/Vol] 7.4 g/dL Normal 6.4-8.9 [facility] Comment on above: Performed By: #### A 1C WTH eA, [id number], TSH3, PT, CBC, [id number], BMP, PTT #### [place] [id number] [facility] Prothrombin Time INRon 06-18 INR Coag (PPP) [Relative time] 2.5 {INR} Normal [facility] Comment on above: Result [...] heart valves: 3 - 4.5 PERFORMED BY: [place] [address] PATHOLOGIST FAMILY AND [employer] LEGAL ASSISTANT CORAL GOLD M.D. Performed By: #### P T #### [address] PT Coag (PPP) [Time] 28.6 s High 9.0-12.9 [facility] Comment on above: Result Comment: A he matocrit value greater than 55% may lead to inaccurate results in coagulation testing. Patients having hematocrit values >55% require a special collection tube for coagulation studies. Please contact the laboratory at [phone] for redraw instructions. Performed By: #### P T #### [address] Serum globulin measurement b y calculation (mass/volume)Ordered By: Domenico Mcclurearthy on 06-18-2024 Globulin (S) [Mass/Vol] 3.5 g/dL Normal [facility] Comment on above: Performed By: #### A 1C WTH eA, [id number], TSH3, PT, CBC, [id number], BMP, PTT #### [place] [id number] [place] Serum or plasma albumin/glob ulin mass ratioOrdered By: Domenico Betancourt on 06-18-2024 Albumin/Globulin [Mass ratio] 1.1 {ratio} Normal [facility] Comment on above: Performed By: #### A 1C WT eA, [id number], TSH3, PT, CBC, [id number], BMP, PTT #### [facility] [address] Serum or plasma anion gap de terminationOrdered By: Domenico Betancourt on 06-18-2024 Anion gap [Moles/Vol] 15.5 mmol/L High 6.0-15.0 [facility] Comment on above: Performed By: #### A 1C WTH eA, [id number], TSH3, PT, CBC, [id number], BMP, PTT #### [facility] [address] Serum or plasma non-glucuron idated bilirubin measurement (mass/volume)Ordered By: Domenico Betancourt on 06-18-2024 Bilirubin.indirect [Mass/Vol] 0.4 mg/dL [facility] Sodium [Moles/volume] in Ser um or PlasmaOrdered By: Domenico Betancourt on 06-18-2024 Sodium [Moles/Vol] 130 mmol/L Low 136-145 [facility] Comment on above: Performed By: #### A 1C WT eA, [id number], TSH3, PT, CBC, [id number], BMP, PTT #### [facility] [address] Specific gravity Test strip (U) [Rel density]Ordered By: Domenico Betancourt on 06-18-2024 Specific gravity (U) [Rel density] 1.014 1.001-1.03 0 [facility] Troponin I High Sensitivityo n 06-18-2024 Troponin I High Sensitivity 20.8 pg/mL High 0.0-20.0 [facility] Comment on above: Result Comment: PERF ORMED BY: [place] [address] PATHOLOGIST FAMILY AND DIVORCE LEGAL ASSISTANT CORAL GOLD M.D. Performed By: #### H S TROP #### [facility] [address] [place] [address] Troponin I High Sensitivity 20.7 pg/mL High 0.0-20.0 [facility] Comment on above: Result Comment: PERF ORMED BY: [place] [address] PATHOLOGIST FAMILY AND DIVORCE LEGAL ASSISTANT CORAL GOLD M.D. Performed By: #### A 1C WTH eA, [id number], TSH3, PT, CBC, [id number], BMP, PTT #### [facility] [address] [place] [address] Troponin I.cardiac [Mass/vol ume] in Serum or Plasma by Detection limit <= 0.01 ng/Ordered By: Domenico Betancourt on 06-18-2024 Troponin I.cardiac DL <= 0.01 ng/mL [Mass/Vol] 20.8 pg/mL High 0.0-20.0 [facility] Urea nitrogen [Mass/volume] in Serum or PlasmaOrdered By: Domenico Betancourt on 06-18-2024 Urea nitrogen [Mass/Vol] 41 mg/dL High 7-25 [facility] Comment on above: Performed By: #### A 1C WTH eA, [id number], TSH3, PT, CBC, [id number], BMP, PTT #### [facility] [address] [place] [address] Urine appearanceOrdered By: Domenico Betancourt on 06-18-2024 Appearance (U) Clear Normal Clear [facility] Comment on above: Order Comment: Name Collection Type:: Clean-Voided Midstream Performed By: #### A 1C WTH eA, [id number], TSH3, PT, CBC, [id number], BMP, PTT #### [address] Urobilinogen Test strip (U) [Mass/Vol]Ordered By: Domenico Betancourt on 06-18-2024 Urobilinogen (U) [Mass/Vol] Normal mg/dL Normal [facility] XR chest 1V portableon 06-18 XR chest 1V portable [facility] [place] [address] [place] [address] XRay Report Signed Patient: Nirmal Chaidez MR#: [id number] 9 : 1945 Acct:[id number] Age/Sex: 78 / M ADM Date: 06/18/24 [...] Norberto Villalta M.D.06/18/2024 4:24 PM Dictation Location: [place] [address] Transcribed By: [facility] 06/18/241623 Dictated By: Norberto Villalta II, MD 06/18/241622 Signed By: 06/18/24 162 Normal [facility] pH of Urine by Test stripOrd ered By: Domenico Betancourt on 06-18-2024 pH (U) 5.5 [pH] Normal 5.0-9.0 [facility] Comment on above: Order Comment: Name Collection Type:: Clean-Voided Midstream Performed By: #### A 1C WTH eA, [id number], TSH3, PT, CBC, [id number], BMP, PTT #### [place] [id number] [place] [facility] 04-25-2024 Lab Reports [id number] Normal [facility] RAD - MISCon 04-25-2024 RAD - MISC [id number] Normal [facility] Alanine aminotransferase [En zymatic activity/volume] in Serum or PlasmaOrdered By: Marva Soriano on 04-23-2024 ALT [Catalytic activity/Vol] 8 U/L Normal 7-52 [facility] Comment on above: Performed By: #### A 1C WTH eA, [id number], TSH3, PT, CBC, [id number], BMP, PTT #### [facility] [address] [place] [address] [place] Albumin [Mass/volume] in Ser um or Plasma by Bromocresol green (BCG) dye binding methoOrdered By: Marva Soriano on 04-23-2024 Albumin BCG dye [Mass/Vol] 3.7 g/dL 3.5-5.7 [facility] Alkaline phosphatase [Enzyma tic activity/volume] in Serum or PlasmaOrdered By: Marva Soriano on 04-23-2024 ALP [Catalytic activity/Vol] 79 U/L Normal 34-104 [facility] Comment on above: Result Comment: PERF ORMED BY: [place] [address] PATHOLOGIST FAMILY AND DIVORCE LEGAL ASSISTANT CORAL GOLD M.D. Performed By: #### A 1C WTH eA, [id number], TSH3, PT, CBC, [id number], BMP, PTT #### [facility] [address] [place] [address] [place] Aspartate aminotransferase [ Enzymatic activity/volume] in Serum or PlasmaOrdered By: Marva Soriano on 04-23-2024 AST [Catalytic activity/Vol] 11 U/L Low 13-39 [facility] Comment on above: Performed By: #### A 1C WTH eA, [id number], TSH3, PT, CBC, [id number], BMP, PTT #### [facility] [address] [place] [address] [place] BNP ser/plasOrdered By: Jeremías Soriano on 04-23-2024 Natriuretic peptide B (Bld) [Mass/Vol] 38.0 pg/mL Normal 5-100 [facility] Comment on above: Result Comment: PERF ORMED BY: [place] [address] PATHOLOGIST FAMILY AND DIVORCE LEGAL ASSISTANT CORAL GOLD M.D. Performed By: #### A 1C WT eA, [id number], TSH3, PT, CBC, [id number], BMP, PTT #### [address] Bilirubin.total [Mass/volume ] in Serum or PlasmaOrdered By: Marva Soriano on 04-23-2024 Bilirubin [Mass/Vol] 0.5 mg/dL Normal 0.3-1.0 [facility] Comment on above: Performed By: #### A 1C WT eA, [id number], TSH3, PT, CBC, [id number], BMP, PTT #### [address] Calcium [Mass/volume] in Ser um or PlasmaOrdered By: Marva Soriano on 04-23-2024 Calcium [Mass/Vol] 9.4 mg/dL Normal 8.6-10.3 [facility] Comment on above: Performed By: #### A 1C WT eA, [id number], TSH3, PT, CBC, [id number], BMP, PTT #### [address] Carbon dioxide, total [Moles /volume] in Serum or PlasmaOrdered By: Marva Soriano on 04-23-2024 CO2 [Moles/Vol] 28.4 mmol/L Normal 21.0-31.0 [facility] Comment on above: Performed By: #### A 1C WTH eA, [id number], TSH3, PT, CBC, [id number], BMP, PTT #### [place] [address] [place] Chloride [Moles/volume] in S karla or PlasmaOrdered By: Marva Soriano on 04-23-2024 Chloride [Moles/Vol] 97 mmol/L Low 98-107 [facility] Comment on above: Performed By: #### A 1C WTH eA, [id number], TSH3, PT, CBC, [id number], BMP, PTT #### [facility] [address] Comprehensive Metabolic Pane estrella 04-23-2024 Albumin [Mass/Vol] 3.7 g/dL Normal 3.5-5.7 [facility] Comment on above: Performed By: #### A 1C WT eA, [id number], TSH3, PT, CBC, [id number], BMP, PTT #### [facility] [address] [place] [address] [place] GFR/1.73 sq M.predicted MDRD (S/P/Bld) [Vol rate/Area] 52.342 mL/min/{1.73_m2} Normal [facility] Comment on above: Performed By: #### A 1C WT eA, [id number], TSH3, PT, CBC, [id number], BMP, PTT #### [facility] [address] Creatinine [Mass/volume] in Serum or PlasmaOrdered By: Marva Soriano on 04-23-2024 Creatinine [Mass/Vol] 1.38 mg/dL High 0.70-1.30 [facility] Comment on above: Performed By: #### A 1C WTH eA, [id number], TSH3, PT, CBC, [id number], BMP, PTT #### [facility] [address] [place] [id number] [place] Glucose [Mass/volume] in Ser um or PlasmaOrdered By: Marva Soriano on 04-23-2024 Glucose [Mass/Vol] 226 mg/dL High 70-100 [facility] Comment on above: ADA recommended refe rence rangeRandom Glucose Reference Range is dependent on time and content of last meal. Glucose of more than 200 mg/dL in a nonstressed, ambulatory subject supports the diagnosis of Diabetes Mellitus. Result Comment: Christen guillermo Glucose Reference Range is dependent on time and content of last meal. Glucose of more than 200 mg/dL in a nonstressed, ambulatory subject supports the diagnosis of Diabetes Mellitus. ADA recommended reference range Performed By: #### A 1C WTH eA, [id number], TSH3, PT, CBC, [id number], BMP, PTT #### [facility] [address] No Panel InformationOrdered By: Marva Soriano on 04-23-2024 Estimated GFR (CKD-EPI) 52.342 mL/Min [facility] Creatinine Clearance (Chem N/A [facility] Potassium [Moles/volume] in Serum or PlasmaOrdered By: Marva Soriano on 04-23-2024 Potassium [Moles/Vol] 3.9 mmol/L Normal 3.5-5.1 [facility] Comment on above: Performed By: #### A 1C WTH eA, [id number], TSH3, PT, CBC, [id number], BMP, PTT #### [facility] [address] Protein [Mass/volume] in Ser um or PlasmaOrdered By: Marva Sorinao on 04-23-2024 Protein [Mass/Vol] 7.1 g/dL Normal 6.4-8.9 [facility] Comment on above: Performed By: #### A 1C WTH eA, [id number], TSH3, PT, CBC, [id number], BMP, PTT #### [facility] [address] Serum globulin measurement b y calculation (mass/volume)Ordered By: Marva Soriano on 04-23-2024 Globulin (S) [Mass/Vol] 3.4 g/dL Normal [facility] Comment on above: Performed By: #### A 1C WTH eA, [id number], TSH3, PT, CBC, [id number], BMP, PTT #### [facility] [address] Serum or plasma albumin/glob ulin mass ratioOrdered By: Marva Soriano on 04-23-2024 Albumin/Globulin [Mass ratio] 1.1 {ratio} Normal [facility] Comment on above: Performed By: #### A 1C WTH eA, [id number], TSH3, PT, CBC, [id number], BMP, PTT #### [facility] [address] Serum or plasma anion gap de terminationOrdered By: Marva Soriano on 04-23-2024 Anion gap [Moles/Vol] 13.5 mmol/L Normal 6.0-15.0 [facility] Comment on above: Performed By: #### A 1C WTH eA, [id number], TSH3, PT, CBC, [id number], BMP, PTT #### [address] Sodium [Moles/volume] in Ser um or PlasmaOrdered By: Marva Soriano on 04-23-2024 Sodium [Moles/Vol] 135 mmol/L Low 136-145 [facility] Comment on above: Performed By: #### A 1C WTH eA, [id number], TSH3, PT, CBC, [id number], BMP, PTT #### [facility] [address] [place] [address] Urea nitrogen [Mass/volume] in Serum or PlasmaOrdered By: Marva Soriano on 04-23-2024 Urea nitrogen [Mass/Vol] 42 mg/dL High 7-25 [facility] Comment on above: Performed By: #### A 1C WTH eA, [id number], TSH3, PT, CBC, [id number], BMP, PTT #### [facility] [address] [place] [address] [place] XR abdomen 1Von 04-23-2024 XR abdomen 1V [facility] [place] [address] XRay Report Signed Patient: Nirmal Chaidez MR#: [id number] 9 : 1945 Acct:[id number] Age/Sex: 78 / M ADM Date: 04/23/24 Loc: XD Room: Type: [facility] Attending Dr: Marva VALADEZ Copies to: [place] [...] Ping Vora M.D.04/23/2024 5:03 PM Dictation Location: [place] [address] Transcribed By: [facility] 04/23/241702 Dictated By: Ping Vora MD 04/23/241700 Signed By: 04/23/241702 Normal [facility] Consent for Treatmenton 0 Consent for Treatment [id number] Normal [facility] Provider Letteron 12-29-2023 Provider Letter (Inserted Image. Cassi ble to display) December 29, 2023 NIRMAL CHAIDEZ [address] [place] [phone] : 1945 Dear Nirmal , We have [...] to this matter. Sincerely, [facility] [address] [facility], [place] [address] Normal [facility] Activated partial thrombopla stin time (aPTT) in platelet poor plasma by coagulation aOrdered By: Ran Addison on 05-14-2023 aPTT Coag (PPP) [Time] 33.4 s 25.1-36.5 [facility] Alanine aminotransferase [En zymatic activity/volume] in Serum or PlasmaOrdered By: Ran Addison on 05-14-2023 ALT [Catalytic activity/Vol] 8 U/L 7-52 [facility] Albumin [Mass/volume] in Ser um or Plasma by Bromocresol green (BCG) dye binding methoOrdered By: Ran Addison on 05-14-2023 Albumin BCG dye [Mass/Vol] 3.6 g/dL 3.5-5.7 [facility] Alkaline phosphatase [Enzyma tic activity/volume] in Serum or PlasmaOrdered By: Ran Addison on 05-14-2023 ALP [Catalytic activity/Vol] 87 U/L 34-104 [facility] Aspartate aminotransferase [ Enzymatic activity/volume] in Serum or PlasmaOrdered By: Ran Addison on 05-14-2023 AST [Catalytic activity/Vol] 13 U/L 13-39 [facility] Basophils Auto (Bld) [#/Vol] Ordered By: Ran Addison on 05-14-2023 Basophils (Bld) [#/Vol] 0.1 10*3/uL 0.0-0.2 [facility] Basophils/100 WBC Auto (Bld) Ordered By: Ran Addison on 05-14-2023 Basophils/100 WBC (Bld) 0.5 % . [facility] Bilirubin.total [Mass/volume ] in Serum or PlasmaOrdered By: Ran Addison on 05-14-2023 Bilirubin [Mass/Vol] 0.6 mg/dL 0.3-1.0 [facility] Calcium [Mass/volume] in Ser um or PlasmaOrdered By: Ran Addison on 05-14-2023 Calcium [Mass/Vol] 8.8 mg/dL 8.6-10.3 [facility] Carbon dioxide, total [Moles /volume] in Serum or PlasmaOrdered By: Ran Addison on 05-14-2023 CO2 [Moles/Vol] 25.7 mmol/L 21.0-31.0 [facility] Chloride [Moles/volume] in S karla or PlasmaOrdered By: Ran Addison on 05-14-2023 Chloride [Moles/Vol] 99 mmol/L 98-107 [facility] Creatinine [Mass/volume] in Serum or PlasmaOrdered By: Ran Addison on 05-14-2023 Creatinine [Mass/Vol] 1.70 mg/dL 0.70-1.30 [facility] Eosinophils Auto (Bld) [#/Vo l]Ordered By: Ran Addison on 05-14-2023 Eosinophils (Bld) [#/Vol] 0.2 10*3/uL 0.0-0.45 [facility] Eosinophils/100 WBC Auto (Bl d)Ordered By: Ran Addison on 05-14-2023 Eosinophils/100 WBC (Bld) 1.7 % . [facility] Erythrocyte distribution wid th Auto (RBC) [Ratio]Ordered By: Ran Addison on 05-14-2023 Erythrocyte distribution width (RBC) [Ratio] 15.7 % 12.0-14.8 [facility] Ethanol [Mass/volume] in Ser um or PlasmaOrdered By: Ran Addison on 05-14-2023 Ethanol [Mass/Vol] mg/dL [facility] Ethanol [Mass/Vol] TNP [facility] Comment on above: Test not performed Globulin Calc (S) [Mass/Vol] Ordered By: Ran Addison on 05-14-2023 Globulin (S) [Mass/Vol] 3.2 g/dL F [facility] Glucose Glucometer (BldC) [M ass/Vol]Ordered By: Ran Addison on 05-14-2023 Glucose [Mass/Vol] 175 mg/dL [facility] Comment on above: Random Glucose Refer ence Range is dependent on time and content of last meal. Glucose of more than 200 mg/dL in a nonstressed, ambulatory subject supports the diagnosis of Diabetes Mellitus. Glucose [Mass/volume] in Ser um or PlasmaOrdered By: Ran Addison on 05-14-2023 Glucose [Mass/Vol] 156 mg/dL 70-100 [facility] Comment on above: ADA recommended refe rence rangeRandom Glucose Reference Range is dependent on time and content of last meal. Glucose of more than 200 mg/dL in a nonstressed, ambulatory subject supports the diagnosis of Diabetes Mellitus. Hematocrit Auto (Bld) [Volum e fraction]Ordered By: Ran Addison on 05-14-2023 Hematocrit (Bld) [Volume fraction] 40.1 % 38.8-50.0 [facility] Hemoglobin [Mass/volume] in BloodOrdered By: Ran Addison on 05-14-2023 Hemoglobin (Bld) [Mass/Vol] 13.0 g/dL 13.0-17.0 [facility] Laboratory - CoagulationOrde red By: Ran Addison on 05-14-2023 PT Coag (PPP) [Time] 26.6 s 9.0-12.9 [facility] Leukocytes [#/volume] correc faraz for nucleated erythrocytes in Blood by Automated counOrdered By: Ran Addison on 05-14-2023 WBC corrected for nucl RBC Auto (Bld) [#/Vol] 10.5 10*3/uL 4.1-10.5 [facility] Lymphocytes Auto (Bld) [#/Vo l]Ordered By: Ran Addison on 05-14-2023 Lymphocytes (Bld) [#/Vol] 1.6 10*3/uL 1.00-4.8 [facility] Lymphocytes/100 WBC Auto (Bl d)Ordered By: Ran Addison on 05-14-2023 Lymphocytes/100 WBC (Bld) 15.6 % . [facility] MCH Auto (RBC) [Entitic mass ]Ordered By: Ran Addison on 05-14-2023 MCH (RBC) [Entitic mass] 29.8 pg 27.5-35.2 [facility] MCHC Auto (RBC) [Mass/Vol]Or dered By: Ran Addison on 05-14-2023 MCHC (RBC) [Mass/Vol] 32.5 g/dL 32.5-35.6 [facility] MCV Auto (RBC) [Entitic vol] Ordered By: Ran Addison on 05-14-2023 MCV (RBC) [Entitic vol] 91.8 fL 83.5-101 F [facility] Monocyte distribution width [Entitic volume] in Blood by AutomatedOrdered By: Ran Addison on 05-14-2023 Monocyte distribution width Auto (Bld) [Entitic vol] 24.22 % 0.00-20.00 [facility] Comment on above: For adults in ED, MD W > 20.0 may be associated with a higher risk of sepsis during the first 12 hrs of hospital admission Monocytes Auto (Bld) [#/Vol] Ordered By: Ran Addison on 05-14-2023 Monocytes (Bld) [#/Vol] 0.4 10*3/uL 0.0-0.8 [facility] Monocytes/100 WBC Auto (Bld) Ordered By: Ran Addison on 05-14-2023 Monocytes/100 WBC (Bld) 4.0 % . F [facility] Neutrophils Auto (Bld) [#/Vo l]Ordered By: Ran Addison on 05-14-2023 Neutrophils (Bld) [#/Vol] 8.2 10*3/uL 1.8-7.7 [facility] Neutrophils/100 WBC Auto (Bl d)Ordered By: Ran Addison on 05-14-2023 Neutrophils/100 WBC (Bld) 78.2 % . [facility] No Panel InformationOrdered By: Ran Addison on 05-14-2023 Estimated GFR (CKD-EPI) 41.007 mL/Min [facility] Creatinine Clearance (Chem 50.02 [facility] Nucleated erythrocytes [Pres ence] in Blood by Automated countOrdered By: Ran Addison on 05-14-2023 Nucleated RBC Auto Ql (Bld) 0.1 /100{WBC} 0-0.5 [facility] Platelet mean volume Auto (B ld) [Entitic vol]Ordered By: Ran Addison on 05-14-2023 Platelet mean volume (Bld) [Entitic vol] 7.6 fL 6.6-10.1 [facility] Platelet poor plasma interna tional normalized ratio (INR) by coagulation assay (relatOrdered By: Ran Addison on 05-14-2023 INR Coag (PPP) [Relative time] 2.3 {INR} [facility] Comment on above: INR [...] 05-14-2023 Platelets (Bld) [#/Vol] 225 10*3/uL 150-450 [facility] Potassium [Moles/volume] in Serum or PlasmaOrdered By: Ran Addison on 05-14-2023 Potassium [Moles/Vol] 3.7 mmol/L 3.5-5.1 [facility] Protein [Mass/volume] in Ser um or PlasmaOrdered By: Ran Addison on 05-14-2023 Protein [Mass/Vol] 6.8 g/dL 6.4-8.9 [facility] RBC Auto (Bld) [#/Vol]Ordere d By: Ran Addison on 05-14-2023 RBC (Bld) [#/Vol] 4.36 10*6/uL 3.90-5.60 [facility] Serum or plasma albumin/glob ulin mass ratioOrdered By: Ran Addison on 05-14-2023 Albumin/Globulin [Mass ratio] 1.1 {ratio} [facility] Serum or plasma anion gap de terminationOrdered By: Ran Addison on 05-14-2023 Anion gap [Moles/Vol] 14.0 mmol/L 6.0-15.0 [facility] Sodium [Moles/volume] in Ser um or PlasmaOrdered By: Ran Addison on 05-14-2023 Sodium [Moles/Vol] 135 mmol/L 136-145 [facility] Troponin I.cardiac [Mass/vol ume] in Serum or Plasma by Detection limit <= 0.01 ng/Ordered By: Ran Addison on 05-14-2023 Troponin I.cardiac DL <= 0.01 ng/mL [Mass/Vol] 18.4 pg/mL 0.0-20.0 [facility] Urea nitrogen [Mass/volume] in Serum or PlasmaOrdered By: Ran Addison on 05-14-2023 Urea nitrogen [Mass/Vol] 38 mg/dL 06-14 [facility] WBC Auto (Bld) [#/Vol]Ordere d By: Ran Addison on 05-14-2023 WBC (Bld) [#/Vol] 10.5 10*3/uL 4.1-10.5 [facility] Tobacco Screening.on 023 Adult depression screening assessment No -[facility]Sandu will 250 DO Work Phone: Fall risk assessment a) No falls within the last year [facility] [employer]Lee Silbery 250 DO Work Phone: Tobacco use status [facility] b) No M -[facility] will 250 DO Work Phone: GLYCOHEMOGLOBIN A1Con 2022 ADA RECOMMENDATION SEE BELOW Normal [facility] Comment on above: Result Comment: ADA RECOMMENDED LIMIT 4.0 - 6.0 ADA THERAPEUTIC TARGET < 7.0 ACTION SUGGESTED > 7.0 Performed By: #### A 1C #### [facility] [address] [place] [address] [address] Cuco Gilliam Glucose [Mass/Vol] 177 mg/dL Normal [facility] Comment on above: Performed By: #### A 1C #### [facility] [address] [place] [address] [address] Cuco Gilliam HbA1c (Bld) [Mass fraction] 7.8 % Critically high 4.5-6.2 [facility] Comment on above: Performed By: #### A 1C #### [facility] [address] [place] [address] [address] Cuco Gilliam CBC AUTO DIFFon 10-28-2022 BASO # 0.0 103/ul Normal 0.0-0.1 [facility] Comment on above: Performed By: #### C BC #### [facility] [address] [place] [address] [address] Cuco Gilliam Basophils/100 WBC (Bld) 0.4 % Normal 0.2-2.0 [facility] Comment on above: Performed By: #### C BC #### [facility] [address] [place] [address] Dr. Cuco Gilliam EO # 0.1 103/ul Normal 0.0-0.7 [facility] Comment on above: Performed By: #### C BC #### [facility] [address] [place] [address] Dr. Cuco Gilliam Eosinophils/100 WBC (Bld) 0.9 % Normal 0.9-7.0 [facility] Comment on above: Performed By: #### C BC #### [facility] [address] [place] [address] Dr. Cuco Gilliam Erythrocyte distribution width (RBC) [Ratio] 15.9 % Critically high 11.0-15.0 [facility] Comment on above: Performed By: #### C BC #### [facility] [address] [place] [address] Dr. Cuco Gilliam Hematocrit (Bld) [Volume fraction] 47.8 % Normal 42.0-54.0 [facility] Comment on above: Performed By: #### C BC #### [facility] [address] [place] [address] Dr. Cuco Gilliam Hemoglobin (Bld) [Mass/Vol] 14.9 g/dL Normal 14.0-18.0 [facility] Comment on above: Performed By: #### C BC #### [facility] [address] [place] [address] Dr. Cuco Gilliam IG # 0.05 10e3/ul Critically high 0.00-0.03 [facility] Comment on above: Performed By: #### C BC #### [facility] [address] [place] [address] Dr. Cuco Gilliam IG % 0.5 % Normal 0.0-0.5 [facility] Comment on above: Performed By: #### C BC #### [facility] [address] [place] [address] Dr. Cuco Gilliam LYMPH # 1.8 103/ul Normal 1.2-3.8 [facility] Comment on above: Performed By: #### C BC #### [facility] [address] [place] [address] Dr. Cuco Gilliam Lymphocytes/100 WBC (Bld) 17.3 % Critically low 20.5-60.0 [facility] Comment on above: Performed By: #### C BC #### [facility] [address] [place] [address] Dr. Cuco Gilliam MANUAL DIFF REQ NO Normal [facility] Comment on above: Performed By: #### C BC #### [facility] [address] [place] [address] Dr. Cuco Gilliam MCH (RBC) [Entitic mass] 28.4 pg Normal 25.9-34.0 [facility] Comment on above: Performed By: #### C BC #### [facility] [address] [place] [address] Dr. Cuco Gilliam MCHC (RBC) [Mass/Vol] 31.2 g/dL Normal 29.9-35.2 [facility] Comment on above: Performed By: #### C BC #### [facility] [address] [place] [address] Dr. Cuco Gilliam MCV (RBC) [Entitic vol] 91.2 fL Normal 80.0-94.0 [facility] Comment on above: Performed By: #### C BC #### [facility] [address] [place] [address] Dr. Cuco Gilliam MONO # 0.7 103/ul Normal 0.3-0.8 [facility] Comment on above: Performed By: #### C BC #### [facility] [address] [place] [address] Dr. Cuco Gilliam Monocytes/100 WBC (Bld) 6.8 % Normal 1.7-12.0 [facility] Comment on above: Performed By: #### C BC #### [facility] [address] [place] [address] Dr. Cuco Gilliam NEUT # 7.7 103/ul Critically high 1.4-6.5 [facility] Comment on above: Performed By: #### C BC #### [facility] [address] [address] [address] Cuco Gilliam Neutrophils/100 WBC (Bld) 74.1 % Normal 43.0-75.0 [facility] Comment on above: Performed By: #### C BC #### [facility] [address] [place] [address] Dr. Cuco Gilliam Platelet mean volume (Bld) [Entitic vol] 9.1 fL Critically low 9.5-13.5 [facility] Comment on above: Performed By: #### C BC #### [facility] [address] [place] [address] Dr. Cuco Gilliam PLT 218 103/ul Normal 150-450 [facility] Comment on above: Performed By: #### C BC #### [facility] [address] [place] [address] Dr. Cuco Gilliam RBC 5.24 106/ul Normal 4.70-6.10 [facility] Comment on above: Performed By: #### C BC #### [facility] [address] [place] [address] Dr. Cuco Gilliam WBC 10.4 103/ul Normal 4.0-11.0 [facility] Comment on above: Performed By: #### C BC #### [facility] [address] [place] [address] Dr. Cuco Gilliam LIPID PROFILEon 10-28-2022 CHOL-HDL RATIO NORM SEE BELOW Normal [facility] Comment on above: Result Comment: 3.3 - 4.4 LOW RISK 4.4 - 7.1 AVERAGE RISK 7.1 - 11.0 MODERATE RISK >11.0 HIGH RISK Performed By: #### B MP, LIPID #### [facility] [address] [place] [address] Dr. Cuco Gilliam Cholesterol [Mass/Vol] 142 mg/dL Normal <=200 Th [facility] Comment on above: Performed By: #### B MP, LIPID #### [facility] [address] [place] [address] Dr. Cuco Gilliam Cholesterol in HDL [Mass/Vol] 59 mg/dL Normal 40-60 [facility] Comment on above: Performed By: #### B MP, LIPID #### [facility] [address] [place] [address] Dr. Cuco Gilliam Cholesterol in LDL [Mass/Vol] 69.4 mg/dL Normal [facility] Comment on above: Performed By: #### B MP, LIPID #### [facility] [address] [place] [address] Dr. Cuco Gilliam Cholesterol.total/Amirah sterol in HDL [Mass ratio] 2.4 {ratio} Normal [facility] Comment on above: Performed By: #### B MP, LIPID #### [facility] [address] [place] [address] Dr. Cuco Gilliam HDL NORMAL > or = 60 mg/dl - LO W CARDIOVASCULAR RISK <40 mg/dl - HIGH CARDIOVASCULAR RISK Normal [facility] Comment on above: Performed By: #### B MP, LIPID #### [facility] [address] [place] [address] Dr. Cuco Gilliam LDL CALC NORMAL SEE BELOW Normal [facility] Comment on above: Result Comment: <100 mg/dl OPTIMAL 100 - 129 mg/dl NEAR OR ABOVE OPTIMAL 130 - 159 mg/dl BORDERLINE HIGH 160 - 189 mg/dl HIGH >190 mg/dl VERY HIGH Performed By: #### B MP, LIPID #### [facility] [address] [place] [address] Dr. Cuco Gilliam Triglyceride [Mass/Vol] 68 mg/dL Normal <=150 T [facility] Comment on above: Performed By: #### B MP, LIPID #### [facility] [address] [place] [address] Dr. Cuco Gilliam VLDL CALC 13.6 mg/dL Normal [facility] Comment on above: Performed By: #### B MP, LIPID #### [facility] [address] [place] [address] Dr. Cuco Gilliam MICROALBUMIN, RAND URon 12-0 mALB 9.0 mg/L Normal <=30.0 [facility] Comment on above: Performed By: #### M ALBR #### [facility] [address] [address] [address] Cuco Gilliam PROF CHEM 8 (BAS METB)on Anion gap [Moles/Vol] 8.2 mmol/L Normal [facility] Comment on above: Performed By: #### B MP, LIPID #### [facility] [address] [place] [address] Dr. Cuco Gilliam Calcium [Mass/Vol] 9.2 mg/dL Normal 8.5-10.1 [facility] Comment on above: Performed By: #### B MP, LIPID #### [facility] [address] [place] [address] Dr. Cuco Gilliam Chloride [Moles/Vol] 101 mmol/L Normal 98-107 [facility] Comment on above: Performed By: #### B MP, LIPID #### [facility] [address] [place] [address] Dr. Cuco Gilliam CO2 [Moles/Vol] 34.8 mmol/L Critically high 21.0-32.0 [facility] Comment on above: Performed By: #### B MP, LIPID #### [facility] [address] [place] [address] Dr. Cuco Gilliam Creatinine [Mass/Vol] 1.10 mg/dL Normal 0.70-1.30 [facility] Comment on above: Performed By: #### B MP, LIPID #### [facility] [address] [place] [address] Dr. Cuco Gilliam EGFR-AF OMANI >60 Normal >=60 [facility] Comment on above: Performed By: #### B MP, LIPID #### [facility] [address] [place] [address] Dr. Cuco Gilliam EGFR-NON AF OMANI >60 Normal >=60 [facility] Comment on above: Performed By: #### B MP, LIPID #### [facility] [address] [place] [address] Dr. Cuco Gilliam Glucose [Mass/Vol] 120 mg/dL Critically high 74-106 [facility] Comment on above: Performed By: #### B MP, LIPID #### [facility] [address] [address] [address] Cuco Gilliam Potassium [Moles/Vol] 4.0 mmol/L Normal 3.5-5.1 [facility] Comment on above: Performed By: #### B MP, LIPID #### [facility] [address] [address] [address] Cuco Gilliam Sodium [Moles/Vol] 140 mmol/L Normal 136-145 [facility] Comment on above: Performed By: #### B MP, LIPID #### [facility] [address] [address] [address] Cuco Gilliam Urea nitrogen [Mass/Vol] 20.0 mg/dL Critically high 7.0-18.0 [facility] Comment on above: Performed By: #### B MP, LIPID #### [facility] [address] [address] [address] Cuco Gilliam Urea nitrogen/Creatinine [Mass ratio] 18.2 mg/mg Normal [facility] Comment on above: Performed By: #### B MP, LIPID #### [facility] [address] [place] [address] Dr. Cuco Gilliam XR KUB 1 VIEWon [...] by: DAVONTE NUNEZ Date: 2022-10-28 11:46 Normal [facility] GLYCOHEMOGLOBIN A1Con 2021 ADA RECOMMENDATION SEE BELOW Normal [facility] Comment on above: Result Comment: ADA RECOMMENDED LIMIT 4.0 - 6.0 ADA THERAPEUTIC TARGET < 7.0 ACTION SUGGESTED > 7.0 Performed By: #### A 1C #### [facility] [address] [address] [address] Cuco Gilliam Glucose [Mass/Vol] 146 mg/dL Normal [facility] Comment on above: Performed By: #### A 1C #### [facility] [address] [place], [place] [address] Dr. Cuco Gilliam HbA1c (Bld) [Mass fraction] 6.7 % Critically high 4.5-6.2 [facility] Comment on above: Performed By: #### A 1C #### [facility] [address] [place], [place] [address] Dr. Cuco Gilliam Activated partial thrombopla stin time (aPTT) in platelet poor plasma by coagulation aOrdered By: Domenico Betancourt on 08-24-2022 aPTT Coag (PPP) [Time] 35.5 s 25.1-36.5 [facility] Amphetamine Screen Ql (U)Ord ered By: Domenico Betancourt on 08-24-2022 Amphetamines Ql (U) Negative Negative [facility] Barbiturates [Presence] in U rineOrdered By: Domenico Betancourt on 08-24-2022 Barbiturates Ql (U) Negative Negative [facility] Basophils Auto (Bld) [#/Vol] Ordered By: Domenico Betancourt on 08-24-2022 Basophils (Bld) [#/Vol] 0.1 10*3/uL 0.0-0.2 [facility] Basophils/100 WBC Auto (Bld) Ordered By: Domenico Betancourt on 08-24-2022 Basophils/100 WBC (Bld) 0.9 % . [facility] Benzodiazepines [Presence] i n UrineOrdered By: Domenico Betancourt on 08-24-2022 Benzodiazepines Ql (U) Negative Negative [facility] Blood hemoglobin measurement (mass/volume)Ordered By: Domenico Betancourt on 08-24-2022 Hemoglobin (Bld) [Mass/Vol] 13.1 g/dL 13.0-17.0 [facility] Blood leukocytes automated c ount (number/volume)Ordered By: Domenico Betancourt on 08-24-2022 WBC (Bld) [#/Vol] 6.1 10*3/uL 4.5-11.0 [facility] COVID-19 SOFIAOrdered By: Isela john Serafin on 08-24-2022 SARS-CoV+SARS-CoV-2 (COVID-19) Ag IA.rapid Ql (Resp) Negative Negative [facility] Comment on above: This is a duplicate Dodie SARS Antigen (BERNARD) result to be used for statistical tracking purpose only. Cannabinoids [Presence] in U rine by Screen methodOrdered By: Domenico Betancourt on 08-24-2022 Cannabinoids Screen Ql (U) Negative Negative [facility] Comment on above: These are unconfirme d results and should not be used for legal purposes. Drug Cut-Off Concentration: AMPH 1000 ng/mL SHON 200 ng/mL SRAVANTHI 200 ng/mL COCM 300 ng/mL OP 300 ng/mL PCP 25 ng/mL THC 20 ng/mL Creatine kinase [Enzymatic a ctivity/volume] in Serum or PlasmaOrdered By: Domenico Betancourt on 08-24-2022 CK [Catalytic activity/Vol] 49 U/L 22-269 [facility] Creatinine and Glomerular fi ltration rate.predicted panel (S/P/Bld)Ordered By: Domenico Betancourt on 08-24-2022 Creatinine [Mass/Vol] 1.13 mg/dL 0.64-1.27 [facility] Eosinophils Auto (Bld) [#/Vo l]Ordered By: Domenico Betancourt on 08-24-2022 Eosinophils (Bld) [#/Vol] 0.1 10*3/uL 0.0-0.45 [facility] Eosinophils/100 WBC Auto (Bl d)Ordered By: Domenico Betancourt on 08-24-2022 Eosinophils/100 WBC (Bld) 1.4 % . [facility] Erythrocyte distribution wid th Auto (RBC) [Ratio]Ordered By: Domenico Betancourt on 08-24-2022 Erythrocyte distribution width (RBC) [Ratio] 15.9 % 12.0-14.8 [facility] Estimated glomerular filtrat ion rate (GFR) non- AmericanOrdered By: Domenico Betancourt on 08-24-2022 GFR/1.73 sq M.predicted among non-blacks MDRD (S/P/Bld) [Vol rate/Area] > 60 mL/Min [facility] Glucose Glucometer (BldC) [M ass/Vol]Ordered By: Domenico Betancourt on 08-24-2022 Glucose [Mass/Vol] 133 mg/dL [facility] Comment on above: Random Glucose Refer ence Range is dependent on time and content of last meal. Glucose of more than 200 mg/dL in a nonstressed, ambulatory subject supports the diagnosis of Diabetes Mellitus. Hematocrit Auto (Bld) [Volum e fraction]Ordered By: Domenico Betancourt on 08-24-2022 Hematocrit (Bld) [Volume fraction] 40.8 % 38.8-50.0 [facility] Laboratory - Chemistry and C hemistry - challengeOrdered By: Domenico Betancourt on 08-24-2022 Lipase [Catalytic activity/Vol] 23.0 U/L 22-51 [facility] Laboratory - CoagulationOrde red By: Domenico Betancourt on 08-24-2022 PT Coag (PPP) [Time] 30.6 s 9.0-12.9 [facility] - Drug toxicology Ordered By: Domenico Betancourt on 08-24-2022 Opiates Ql (U) Negative Negative [facility] Laboratory - Hematology and Cell countsOrdered By: Domenico Betancourt on 08-24-2022 Nucleated RBC/100 WBC (Bld) [Ratio] 0.0 % 0-0.5 [facility] Laboratory - Microbiology an d Antimicrobial susceptibilityOrdered By: oDmenico Betancourt on 08-24-2022 SARS-CoV-2 (COVID-19) RNA NA+probe Ql (Unsp spec) N/A [facility] Lymphocytes Auto (Bld) [#/Vo l]Ordered By: Domenico Betancourt on 08-24-2022 Lymphocytes (Bld) [#/Vol] 0.9 10*3/uL 1.00-4.8 [facility] Lymphocytes/100 WBC Auto (Bl d)Ordered By: Domenico Betancourt on 08-24-2022 Lymphocytes/100 WBC (Bld) 14.1 % . [facility] MCH Auto (RBC) [Entitic mass ]Ordered By: Domenico Betancourt on 08-24-2022 MCH (RBC) [Entitic mass] 28.7 pg 27.5-35.2 [facility] MCHC Auto (RBC) [Mass/Vol]Or dered By: Domenico Betancourt on 08-24-2022 MCHC (RBC) [Mass/Vol] 32.1 g/dL 32.5-35.6 [facility] MCV Auto (RBC) [Entitic vol] Ordered By: Domenico Betancourt on 08-24-2022 MCV (RBC) [Entitic vol] 89.3 fL 83.5-101 [facility] Monocytes Auto (Bld) [#/Vol] Ordered By: Domenico Betancourt on 08-24-2022 Monocytes (Bld) [#/Vol] 0.5 10*3/uL 0.0-0.8 [facility] Monocytes/100 WBC Auto (Bld) Ordered By: Domenico Betancourt on 08-24-2022 Monocytes/100 WBC (Bld) 8.2 % . [facility] Neutrophils Auto (Bld) [#/Vo l]Ordered By: Domenico Betancourt on 08-24-2022 Neutrophils (Bld) [#/Vol] 4.6 10*3/uL 1.8-7.7 [facility] Neutrophils/100 WBC Auto (Bl d)Ordered By: Domenico Betancourt on 08-24-2022 Neutrophils/100 WBC (Bld) 75.4 % . [facility] No Panel InformationOrdered By: Domenico Betancourt on 08-24-2022 Estimated GFR () > 60 mL/Min [facility] Comment on above: GFR estimated refere nce range: According to KDOQI guidelines, <60 ml/min/1.73m2 is sufficient to diagnose a patient with chronic kidney disease. Pharmacy Creatinine Clearance (Chem 77.86 [facility] Bedside Glucose Comment Glu2: cleaned meter [facility] SARS Antigen (LFIA) [facility] Phencyclidine Screen Ql (U)O rdered By: Domenico Betancourt on 08-24-2022 Phencyclidine Ql (U) Negative Negative [facility] Platelet mean volume Auto (B ld) [Entitic vol]Ordered By: Domenico Betancourt on 08-24-2022 Platelet mean volume (Bld) [Entitic vol] 8.2 fL 6.6-10.1 [facility] Platelet poor plasma interna tional normalized ratio (INR) by coagulation assay (relatOrdered By: Domenico Betancourt on 08-24-2022 INR Coag (PPP) [Relative time] 2.7 {INR} [facility] Comment on above: INR Therapeutic Rang e [...] 08-24-2022 Platelets (Bld) [#/Vol] 170 10*3/uL 150-450 [facility] RBC Auto (Bld) [#/Vol]Ordere d By: Domenico Betancourt on 08-24-2022 RBC (Bld) [#/Vol] 4.57 10*6/uL 3.90-5.60 [facility] Serum or plasma amylase robert urement (enzymatic activity/volume)Ordered By: Domenico Betancourt on 08-24-2022 Amylase [Catalytic activity/Vol] 30 U/L 28-100 [facility] Serum or plasma anion gap de terminationOrdered By: Domenico Betancourt on 08-24-2022 Anion gap [Moles/Vol] 11.9 mmol/L 6.0-15.0 [facility] Serum or plasma aspartate am inotransferase measurement (enzymatic activity/volume)Ordered By: Domenico Betancourt on 08-24-2022 AST [Catalytic activity/Vol] 16 U/L 10-42 [facility] Serum or plasma calcium robert urement (mass/volume)Ordered By: Domenico Betancourt on 08-24-2022 Calcium [Mass/Vol] 8.8 mg/dL 8.2-10.2 [facility] Serum or plasma chloride ralph surement (moles/volume)Ordered By: Domenico Betancourt on 08-24-2022 Chloride [Moles/Vol] 99 mmol/L 95-114 [facility] Serum or plasma ethanol robert urement (mass/volume)Ordered By: Domenico Betancourt on 08-24-2022 Ethanol [Mass/Vol] mg/dL [facility] Ethanol [Mass/Vol] TNP [facility] Comment on above: Test not performed Serum or plasma glucose robert urement (mass/volume)Ordered By: Domenico Betancourt on 08-24-2022 Glucose [Mass/Vol] 149 mg/dL 70-100 [facility] Comment on above: ADA recommended refe rence rangeRandom Glucose Reference Range is dependent on time and content of last meal. Glucose of more than 200 mg/dL in a nonstressed, ambulatory subject supports the diagnosis of Diabetes Mellitus. Serum or plasma potassium me asurement (moles/volume)Ordered By: Domenico Betancourt on 08-24-2022 Potassium [Moles/Vol] 3.8 mmol/L 3.5-5.1 [facility] Serum or plasma sodium measu rement (moles/volume)Ordered By: Domenico Betancourt on 08-24-2022 Sodium [Moles/Vol] 135 mmol/L 136-146 [facility] Serum or plasma total carbon dioxide measurement (moles/volume)Ordered By: Domenico Betancourt on 08-24-2022 CO2 [Moles/Vol] 27.9 mmol/L 22.0-30.0 [facility] Serum or plasma urea nitroge n measurement (mass/volume)Ordered By: Domenico Betancourt on 08-24-2022 Urea nitrogen [Mass/Vol] 13 mg/dL - [facility] Urine cocaine detectionOrder ed By: Domenico Betancourt on 08-24-2022 Cocaine Ql (U) Negative Negative [facility] Activated partial thrombopla stin time (aPTT) in platelet poor plasma by coagulation aOrdered By: Lalito Silva on 07-02-2022 aPTT Coag (PPP) [Time] 30.9 s 25.1-36.5 [facility] Basophils Auto (Bld) [#/Vol] Ordered By: Lalito Silva on 07-02-2022 Basophils (Bld) [#/Vol] 0.1 10*3/uL 0.0-0.2 [facility] Basophils/100 WBC Auto (Bld) Ordered By: Lalito Silva on 07-02-2022 Basophils/100 WBC (Bld) 0.8 % . [facility] Blood hemoglobin measurement (mass/volume)Ordered By: Lalito Silva on 07-02-2022 Hemoglobin (Bld) [Mass/Vol] 14.0 g/dL 13.0-17.0 [facility] Blood leukocytes automated c ount (number/volume)Ordered By: Lalito Silva on 07-02-2022 WBC (Bld) [#/Vol] 7.6 10*3/uL 4.5-11.0 [facility] COVID-19 SOFIAOrdered By: Sa tawny Smith on 07-02-2022 SARS-CoV+SARS-CoV-2 (COVID-19) Ag IA.rapid Ql (Resp) Negative Negative [facility] Comment on above: This is a duplicate Dodie SARS Antigen (BERNARD) result to be used for statistical tracking purpose only. Creatinine and Glomerular fi ltration rate.predicted panel (S/P/Bld)Ordered By: Lalito Silva on 07-02-2022 Creatinine [Mass/Vol] 1.26 mg/dL 0.64-1.27 [facility] Eosinophils Auto (Bld) [#/Vo l]Ordered By: Lalito Silva on 07-02-2022 Eosinophils (Bld) [#/Vol] 0.1 10*3/uL 0.0-0.45 [facility] Eosinophils/100 WBC Auto (Bl d)Ordered By: Lalito Silva on 07-02-2022 Eosinophils/100 WBC (Bld) 1.2 % . [facility] Erythrocyte distribution wid th Auto (RBC) [Ratio]Ordered By: Lalito Silva on 07-02-2022 Erythrocyte distribution width (RBC) [Ratio] 16.2 % 12.0-14.8 [facility] Estimated glomerular filtrat ion rate (GFR) non- AmericanOrdered By: Lalito Silva on 07-02-2022 GFR/1.73 sq M.predicted among non-blacks MDRD (S/P/Bld) [Vol rate/Area] 56 mL/Min [facility] Hematocrit Auto (Bld) [Volum e fraction]Ordered By: Lalito Silva on 07-02-2022 Hematocrit (Bld) [Volume fraction] 43.9 % 38.8-50.0 [facility] Laboratory - CoagulationOrde red By: Lalito Silva on 07-02-2022 PT Coag (PPP) [Time] 15.7 s 9.0-12.9 [facility] - Coagulationon 0 07-02-2022 INR Coag (Bld) [Relative time] 1.5 {INR} -[facility] 250 DO Work Phone: Comment on above: INR results are spec ifically intended to assess patients stabilized on long-term Anticoagulation therapy suggested INR?s ?Less Intensive Anticoagulation? 2.0 ? 3.0Conventional Range 3.0 ? 4.5 Laboratory - Hematology and Cell countsOrdered By: Lalito Silva on 07-02-2022 Nucleated RBC/100 WBC (Bld) [Ratio] 0.1 % 0-0.5 [facility] Lymphocytes Auto (Bld) [#/Vo l]Ordered By: Lalito Silva on 07-02-2022 Lymphocytes (Bld) [#/Vol] 1.4 10*3/uL 1.00-4.8 [facility] Lymphocytes/100 WBC Auto (Bl d)Ordered By: Lalito Silva on 07-02-2022 Lymphocytes/100 WBC (Bld) 18.8 % . [facility] MCH Auto (RBC) [Entitic mass ]Ordered By: Lalito Silva on 07-02-2022 MCH (RBC) [Entitic mass] 28.7 pg 27.5-35.2 [facility] MCHC Auto (RBC) [Mass/Vol]Or dered By: Lalito Silva on 07-02-2022 MCHC (RBC) [Mass/Vol] 31.9 g/dL 32.5-35.6 [facility] MCV Auto (RBC) [Entitic vol] Ordered By: Lalito Silva on 07-02-2022 MCV (RBC) [Entitic vol] 90.1 fL 83.5-101 [facility] Monocytes Auto (Bld) [#/Vol] Ordered By: Lalito Silva on 07-02-2022 Monocytes (Bld) [#/Vol] 0.6 10*3/uL 0.0-0.8 [facility] Monocytes/100 WBC Auto (Bld) Ordered By: Lalito Silva on 07-02-2022 Monocytes/100 WBC (Bld) 7.2 % . [facility] Neutrophils Auto (Bld) [#/Vo l]Ordered By: Lalito Silva on 07-02-2022 Neutrophils (Bld) [#/Vol] 5.5 10*3/uL 1.8-7.7 [facility] Neutrophils/100 WBC Auto (Bl d)Ordered By: Lalito Silva on 07-02-2022 Neutrophils/100 WBC (Bld) 72.0 % . [facility] No Panel InformationOrdered By: Lalito Silva on 07-02-2022 Estimated GFR () > 60 mL/Min [facility] Comment on above: GFR estimated refere nce range: According to KDOQI guidelines, <60 ml/min/1.73m2 is sufficient to diagnose a patient with chronic kidney disease. Pharmacy Creatinine Clearance (Chem 67.63 [facility] No Panel Informationon 07-02 33.6 {second(s)} Normal 25.1-36.5 -[facility] will 250 DO Work Phone: Comment [...] obtained from a study by leah Landaverde al. prepared from 1437 samples obtained at 7 different centers using the same coagulation reagent and instrumentation as [facility]. Currently there are no coagulation studies available worldwide for children to 14 days, and no normal ranges. Heparin therapeutic range (represented by Anti-Factor Xa activity of 0.2 - 0.4 U/mL) corresponds to PTT of 56.6 - 109.0 sec. 17.2 {second(s)} above high threshold 9.4-12.5 -[facility] [facility] 250 DO Work Phone: Comment on [...] obtained from a study by leah Landaverde al. prepared from 1437 samples obtained at 7 different centers using the same coagulation reagent and instrumentation as [facility]. Currently there are no coagulation studies available worldwide for children to 14 days, and no normal ranges. No Panel InformationOrdered By: Joss Smith on 07-02-2022 SARS Antigen (LFIA) [facility] Platelet mean volume Auto (B ld) [Entitic vol]Ordered By: Lalito Silva on 07-02-2022 Platelet mean volume (Bld) [Entitic vol] 8.3 fL 6.6-10.1 [facility] Platelet poor plasma interna tional normalized ratio (INR) by coagulation assay (relatOrdered By: Lalito Silva on 07-02-2022 INR Coag (PPP) [Relative time] 1.4 {INR} [facility] Comment on above: INR Therapeutic Rang e [...] 07-02-2022 Platelets (Bld) [#/Vol] 225 10*3/uL 150-450 [facility] RBC Auto (Bld) [#/Vol]Ordere d By: Lalito Silva on 07-02-2022 RBC (Bld) [#/Vol] 4.87 10*6/uL 3.90-5.60 [facility] Serum or plasma calcium robert urement (mass/volume)Ordered By: Lalito Silva on 07-02-2022 Calcium [Mass/Vol] 9.0 mg/dL 8.2-10.2 [facility] Serum or plasma chloride ralph surement (moles/volume)Ordered By: Lalito Silva on 07-02-2022 Chloride [Moles/Vol] 100 mmol/L 95-114 [facility] Serum or plasma glucose robert urement (mass/volume)Ordered By: Lalito Silva on 07-02-2022 Glucose [Mass/Vol] 116 mg/dL 70-100 [facility] Comment on above: ADA recommended refe rence [...] on 07-02-2022 Potassium [Moles/Vol] 4.0 mmol/L 3.5-5.1 [facility] Serum or plasma sodium measu rement (moles/volume)Ordered By: Lalito Silva on 07-02-2022 Sodium [Moles/Vol] 139 mmol/L 136-146 [facility] Serum or plasma total carbon dioxide measurement (moles/volume)Ordered By: Lalito Silva on 07-02-2022 CO2 [Moles/Vol] 28.9 mmol/L 22.0-30.0 [facility] Serum or plasma urea nitroge n measurement (mass/volume)Ordered By: Lalito Silva on 07-02-2022 Urea nitrogen [Mass/Vol] 25 mg/dL 9- [facility] Office Visit (Cardiology)on 06-15-2022 Follow-up visit Diagnoses/Problems Assessed Atherosclerosis of coronary artery 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 angina pectoris (414.01) (I25.10) Hyperlipidemia [...] Weight Tips; Status:Complete - Retrospective Authorization; Done: [id number] Some eating tips that can help you lose weight.; Status:Complete - Retrospective Authorization; Done: [id number] SocHx: Former smoker Tobacco Use Screening; Status:Complete; Done: [id number] Patient Instructions Please bring all medicines, vitamins, and herbal supplements with you when you come to the office. Prescriptions will not be filled unless you are compliant with your follow up appointments or have a follow up appointment scheduled as per instruction of your physician. Refills should be requested at the time of your visit. I, Nadeen Georges LPN, am scribing for and in the [...] Sodium 4 MG Oral Tabletas directed by [facility] Patient did not bring medication [...] negative for complaint. Vitals Vital Signs Recorded: [id number] 11:29AM Heart Rate68, R Radial Vuophsjt018, RUE, Sitting Qcoupyhqd87, RUE, Sitting Height5 ft 6 in Ommkbd226 lb BMI Uzavtpdgtd75 kg/m2 BSA Calculated2.43 Tobacco Useb) No Physical [...] normal s (more content not included)... Normal [email or web address] Tobacco Screening.on 022 Tobacco use status [facility] b) No [facility] [employer] will 250 DO Work Phone: Office Visit (Cardiology)on 03-16-2022 Follow-up visit Diagnoses/Problems Assessed Atherosclerosis of coronary artery 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 angina pectoris (414.01) (I25.10) Essential hypertension, benign (401.1) (I10) Diabetes mellitus (250.00) (E11.9) Hyperlipidemia (272.4) (E78.5) High risk medication use (V58.69) (Z79.899) Body mass index (BMI) of 50.0 to 59.9 in adult (V85.43) (Z68.43) Former smoker (V15.82) (Z87.891) QUIT 1996 Edema (782.3) (R60.9) Atrial flutter (427.32) (I48.92) Orders Atrial flutter IO EKG Electrocardiogram- 12 Lead; Status:Complete; Done: [id number] Body mass index (BMI) of 50.0 to 59.9 in adult Healthy Weight Tips; Status:Complete - Retrospective Authorization; Done: [id number] Edema Start: Torsemide 10 MG Oral Tablet; Take one tablet once daily Edema, Essential hypertension, benign, High risk medication use Basic Metabolic Panel; Status:Active - Retrospective Authorization; Requested for:[id number]; SocHx: Former smoker Tobacco Use Screening; Status:Complete; Done: [id number] Patient Instructions By signing my name below, I, Carin Zuluaga LPNibe, attest that this documentation has been prepared [...] Sodium 4 MG Oral Tabletas directed by [facility] Allergies Medication Penicillins Allergy; Hives;; Recorded By: Reina Bloom; 08/04/2021 6:29:44 PM Social History Problems Consumes 1 to 2 servings of caffeine per day (V49.89) (Z78.9) Former smoker (V15.82) (Z87.891) QUIT 1996 No illicit drug use Occasional alcohol use (more content not included)... Normal [employer] Tobacco Screening.on 022 Adult depression screening assessment No [facility] 250 DO Work Phone: Fall risk assessment b) One or more fall s in the last year [facility] 250 DO Work Phone: Tobacco use status [facility] b) No M [facility] will 250 DO Work Phone: No Panel Informationon 01-20 22\S\22 Normal 10-42 [facility] 250 DO Work Phone: [phone] 0.50\S\0.50 Normal 0.45-5.33 [facility] 250 DO Work Phone: Comment on above: PERFORMED BY:[place] [address] [place] [id number] MEDICAL DIRECTORCORAL GOLD M.D. 9.1\S\9.1 Normal 8.2-10.2 [facility] 250 DO Work Phone: 24.4\S\24.4 Normal 22.0-30.0 [facility] 250 DO Work Phone: 102\S\102 Normal 95-114 [facility] 250 DO Work Phone: 4.1\S\4.1 Normal 3.5-5.1 [facility] 250 DO Work Phone: 138\S\138 Normal 136-146 [facility] 250 DO Work Phone: 55\S\55 Normal [facility] 250 DO Work Phone: Comment on above: GFR estimated refere nce range: According to KDOQI guidelines, <60 ml/min/1.73m2 is sufficient to diagnose a patient with chronic kidney disease. 45\S\45 Normal [facility] 250 DO Work Phone: 1.51\S\1.51 above high threshold 0.64-1.27 Almita Bowens DO Work Phone: 23\S\23 Normal 9-23 Almita Bowens DO Work Phone: 109\S\109 above high threshold 70-100 Almita Bowens DO Work Phone: Comment on above: Random Glucose Refer ence Range is dependent on time and content of last meal. Glucose of more than 200 mg/dL in a nonstressed, ambulatory subject supports the diagnosis of Diabetes Mellitus. ADA recommended reference range Radiologyon 01-20-2022 XR Chest 2 Views Normal Almita Bowens DO Work Phone: No Panel Informationon 09-23 [facility] Work Phone: No Panel Informationon 09-22 Almita Bowens DO Work Phone: IO EKG Electrocardiogram- 12 Leadon 09-07-2021 IO EKG Electrocardiogram- 12 Lead See Scanned Document Almita Bowens DO Work Phone: Office Visit (Cardiology)on 09-07-2021 Follow-up visit Diagnoses/Problems Assessed Atherosclerosis of coronary artery 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 angina pectoris (414.01) (I25.10) Atrial flutter (427.32) (I48.92) Essential hypertension, benign (401.1) (I10) Diabetes mellitus (250.00) (E11.9) Hyperlipidemia (272.4) (E78.5) Body mass index (BMI) of 50.0 to 59.9 in adult (V85.43) (Z68.43) Former smoker (V15.82) (Z87.891) QUIT 1996 Obesity, morbid (more than 100 lbs over ideal weight or BMI > 40) (278.01) (E66.01) Orders Atherosclerosis of coronary artery 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 angina pectoris Renew: Aspirin EC 81 MG Oral Tablet Delayed Release; TAKE 1 TABLET DAILY SocHx: Former smoker Tobacco Use Screening; Status:Complete; Done: [id number] Follow up in 6-9 months Amiodarone follow up per routine Patient Instructions By signing my name below, I, Awilda GuillermoMee martin LPN, attest that this documentation has been [...] Sodium 4 MG Oral Tabletas directed by [facility] Allergies Medication Penicillins Allergy; Hives;; [...] Signs Recorded: 07Sep2021 09:34AM Heart Rate70, Apical Ezxxjdvj90, RUE, Sitting Kzlqjcaog97, RUE, Sitting Height5 ft 6.5 in Cmodpw280 lb BMI Oolsecdwzb38.26 kg/m2 BSA Calculated2.5 Tobacco Useb) No Fall Screeninga) No falls within the last year EKG done in office today. Physical Exam Constitutional: alert and in no acute distress. Eyes: no erythema, swelling or discharge from the eye . Neck: neck is supple (more content not included)... 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 [id number] This report has been produced using speech [...] Physician: MALLIKA QUINONES M.D. Original [facility]cribed by/Date: [facility] Apr 29 2019 4:50P Original Electronically Signed by/Date: MALLIKA UQINONES M.D. Apr 29 2019 4:50P Addendum Interpreting Physician: Addendum Transcribed by/Date: NO ADDENDUM Addendum Electronically Signed by/Date: [facility] KNEE BI 1 OR 2 VIEWon 2018 KNEE BI 1 OR 2 VIEW *FINAL Date of Service: 04/29/2019 16:45 Adm #: [id number] Reading Dr:MALLIKA QUINONES Signoff Dr: MALLIKA QUINONES [...] change due to bilateral tricompartmental knee arthroplasty. [id number] This report has been produced using speech recognition. Original Interpreting Physician: MALLIKA QUINONES M.D. Original Transcribed by/Date: [facility] Apr 29 2019 4:53P Original Electronically Signed by/Date: MALLIKA QUINONES M.D. Apr 29 2019 4:53P Addendum Interpreting Physician: Addendum Transcribed by/Date: NO ADDENDUM Addendum Electronically Signed by/Date: [facility] PROTHROMBIN TIMEon 9 INR Coag RelTime (PPP) High 0.86-1.16 [facility] Comment on above: Result Comment: 2.5 INR Theraputic Range: 2.0-3.5 Performed at [address] [address] Performed By: #### P TB #### Main Laboratory [address] [address] Prothrombin time (PT) Coag time (PPP) INFORMATION NOT REPORTED TO LABORATORY [facility] Comment on above: Performed By: #### P TB #### Main Laboratory [address] [address] Prothrombin time (PT) Coag time (PPP) 24.9 s High 9.3-12.7 [facility] Comment on above: Performed By: #### P TB #### Main Laboratory [address] [address] SHOULDER RT MIN 2 VIEWon SHOULDER RT MIN 2 VIEW *FINAL Date of Service: 04/29/2019 16:45 Adm #: [id number] Reading Dr:MALLIKA Rubi Dr: MALLIKA QUINONES PROCEDURE: [...] acromioclavicular joint and at the glenohumeral joint. [id number] This report has been produced using speech recognition. Original Interpreting Physician: MALLIKA QUINONES M.D. Original Transcribed by/Date: [facility] Apr 29 2019 4:51P Original Electronically Signed by/Date: MALLIKA QUINONES M.D. Apr 29 2019 4:51P Addendum Interpreting Physician: Addendum Transcribed by/Date: NO ADDENDUM Addendum Electronically Signed by/Date: [facility] SPINE CERVICAL WO CONTRASTon 04-29-2019 SPINE CERVICAL WO CONTRAST *FINAL Date of Service: 04/29/2019 16:43 Adm #: [id number] Reading Dr:MALLIKA Rubi Dr: MALLIKA QUINONES PROCEDURE: SPINE CERVICAL WO CONTRAST - T 3025 REASON FOR EXAM: fall RESULT: SPINE [...] from C3-4 through C7-T1 with cervical spondylosis. [id number] This report has been produced using speech [...] Physician: MALLIKA QUINONES M.D. Original Transcribed by/Date: [facility] Apr 29 2019 5:02P Original Electronically Signed by/Date: MALLIKA QUINONES M.D. Apr 29 2019 5:02P Addendum Interpreting Physician: Addendum Transcribed by/Date: NO ADDENDUM Addendum Electronically Signed by/Date: [facility] Vital Signs Date Time Vital Sign Value Performing Clinician Facility 10-25-2024 [id number] Body height 170.2 cm Michael Mullen MD Work Phone: [facility] 10-25-2024 15:08-0500 Body mass index (BMI) [Ratio] 47.77 kg/m2 Michael Mullen MD Work Phone: [facility] 10-25-2024 15:08-0500 Body weight 138.35 kg Michael Mullen MD Work Phone: [facility] 10-25-2024 15:08-0500 Diastolic blood pressure 64 mm[Hg] Michael Mullen MD Work Phone: [facility] 10-25-2024 15:08-0500 Heart rate 66 /min Michael Mullen MD Work Phone: [facility] 10-25-2024 15:08-0500 Systolic blood pressure 100 mm[Hg] Michael Mullen MD Work Phone: [facility] 08-14-2024 14:40-0400 Body height 168.91 cm DO Modesto Ball Work Phone: [facility] 08-14-2024 14:40-0400 Body mass index (BMI) [Ratio] 49.9 kg/m2 DO Modesto Ball Work Phone: [facility] 08-14-2024 14:40-0400 Body weight 142.42 kg DO Modesto Ball Work Phone: [facility] 08-14-2024 14:40-0400 Diastolic blood pressure 70 mm[Hg] DO Modesto Ball Work Phone: [facility] 08-14-2024 14:40-0400 Heart rate 78 /min DO Modesto Ball Work Phone: [facility] 08-14-2024 14:40-0400 SaO2% (BldA) [Mass fraction] 98 % DO Modesto Ball Work Phone: [facility] 08-14-2024 14:40-0400 Systolic blood pressure 140 mm[Hg] DO Modesto Ball Work Phone: [facility] 06-22-2024 08:00-0400 Body temperature 97.9 [degF] DO Modesto Ball Work Phone: [facility] 06-22-2024 08:00-0400 Diastolic blood pressure 85 mm[Hg] DO Modesto Ball Work Phone: [facility] 06-22-2024 08:00-0400 Heart rate 64 /min DO Modesto Ball Work Phone: [facility] 06-22-2024 08:00-0400 Respiratory rate 20 /min DO Modesto Ball Work Phone: [facility] 06-22-2024 08:00-0400 SaO2% (BldA) [Mass fraction] 96 % DO Modesto Ball Work Phone: [facility] 06-22-2024 08:00-0400 Systolic blood pressure 146 mm[Hg] DO Modesto Ball Work Phone: [facility] 06-22-2024 05:02-0400 Body weight 143.9 kg DO Modesto Ball Work Phone: [facility] 06-20-2024 14:46-0400 Body height 167.64 cm DO Modesto Ball Work Phone: [facility] 06-18-2024 23:31-0400 Inhaled oxygen concentration 21 % DO Modesto Ball Work Phone: [facility] 06-18-2024 22:17-0400 Body temperature 98.6 [degF] DO Modesto Ball Work Phone: [facility] 06-18-2024 22:17-0400 Diastolic blood pressure 52 mm[Hg] DO Modesto Ball Work Phone: [facility] 06-18-2024 22:17-0400 Heart rate 64 /min DO Modesto Ball Work Phone: [facility] 06-18-2024 22:17-0400 Respiratory rate 18 /min DO Modesto Ball Work Phone: [facility] 06-18-2024 22:17-0400 SaO2% (BldA) [Mass fraction] 95 % DO Modesto Ball Work Phone: [facility] 06-18-2024 22:17-0400 Systolic blood pressure 95 mm[Hg] DO Modesto Ball Work Phone: [facility] 06-18-2024 15:48-0400 Body height 167.64 cm DO Modesto Ball Work Phone: [facility] 06-18-2024 15:48-0400 Body weight 144.6 kg DO Modesto Ball Work Phone: [facility] 04-23-2024 10:34-0400 Body height 170.2 cm Lalito Silva MD Work Phone: [facility] 04-23-2024 10:34-0400 Body mass index (BMI) [Ratio] 50.43 kg/m2 Lalito Silva MD Work Phone: [facility] 04-23-2024 10:34-0400 Body weight 146.06 kg Lalito Silva MD Work Phone: [facility] 04-23-2024 10:34-0400 Diastolic blood pressure 60 mm[Hg] Lalito Silva MD Work Phone: [facility] 04-23-2024 10:34-0400 Heart rate 68 /min Lalito Silva MD Work Phone: [facility] 04-23-2024 10:34-0400 Systolic blood pressure 94 mm[Hg] Lalito Silva MD Work Phone: [facility] 03-26-2024 14:28-0400 Body height 167.64 cm [facility] 03-26-2024 14:28-0400 Body mass index (BMI) [Ratio] 51.7 kg/m2 [facility] 03-26-2024 14:28-0400 Body weight 145.31 kg [facility] 03-26-2024 14:28-0400 Diastolic blood pressure 75 mm[Hg] [facility] 03-26-2024 14:28-0400 Heart rate 74 /min [facility] 03-26-2024 14:28-0400 Respiratory rate 24 /min [facility] 03-26-2024 14:28-0400 Systolic blood pressure 126 mm[Hg] [facility] 12-26-2023 11:00-0500 Body height Modesto Chavarria Other [employer] Other 12-26-2023 11:00-0500 Body mass index (BMI) [Ratio] 53.35 kg/m2 Modesto Ball Other [employer] Other 12-26-2023 11:00-0500 Body weight 149.96 kg Modesto Ball Other [employer] Other 12-26-2023 11:00-0500 Diastolic blood pressure 79 mm[Hg] Modesto Ball Other [employer] Other 12-26-2023 11:00-0500 Respiratory rate 20 /min Modesto Ball Other [employer] Other 12-26-2023 11:00-0500 Systolic blood pressure 150 mm[Hg] Modesto Ball Other [employer] Other 10-17-2023 10:00-0500 Body height Modesto Ball Other [employer] Other 10-17-2023 10:00-0500 Body mass index (BMI) [Ratio] 53.19 kg/m2 Modesto Ball Other [employer] Other 10-17-2023 10:00-0500 Body weight 149.51 kg Modesto Ball Other [employer] Other 10-17-2023 10:00-0500 Diastolic blood pressure 83 mm[Hg] Modesto Ball Other [employer] Other 10-17-2023 10:00-0500 Respiratory rate 20 /min Modesto Ball Other [employer] Other 10-17-2023 10:00-0500 Systolic blood pressure 144 mm[Hg] Modesto Ball Other [employer] Other 10-07-2023 15:25-0500 Body height 165.1 cm Lalito Silva MD Work Phone: [facility] 10-07-2023 15:25-0500 Body mass index (BMI) [Ratio] 52.42 kg/m2 Lalito Silva MD Work Phone: [facility] 10-07-2023 15:25-0500 Body weight 142.88 kg Lalito Silva MD Work Phone: [facility] 10-07-2023 15:25-0500 Diastolic blood pressure 78 mm[Hg] Lalito Silva MD Work Phone: [facility] 10-07-2023 15:25-0500 Heart rate 80 /min Lalito Silva MD Work Phone: [facility] 10-07-2023 15:25-0500 Systolic blood pressure 118 mm[Hg] Lalito Silva MD Work Phone: [facility] 09-23-2023 10:30-0400 Body height Modesto Ball Other [employer] Other 09-23-2023 10:30-0400 Body mass index (BMI) [Ratio] 52.13 kg/m2 Modesto Ball Other [employer] Other 09-23-2023 10:30-0400 Body weight 146.51 kg Modesto Ball Other [employer] Other 09-23-2023 10:30-0400 Diastolic blood pressure 82 mm[Hg] Modesto Ball Other [employer] Other 09-23-2023 10:30-0400 Respiratory rate 20 /min Modesto Ball Other [employer] Other 09-23-2023 10:30-0400 Systolic blood pressure 147 mm[Hg] Modesto Ball Other [employer] Other 09-23-2023 09:30-0400 Body height Modesto Ball Other [employer] Other 09-23-2023 09:30-0400 Body mass index (BMI) [Ratio] 52.13 kg/m2 Modesto Ball Other [employer] Other 09-23-2023 09:30-0400 Body weight 146.51 kg Modesto Ball Other [employer] Other 09-23-2023 09:30-0400 Diastolic blood pressure 82 mm[Hg] Modesto Ball Other [employer] Other 09-23-2023 09:30-0400 Respiratory rate 20 /min Modesto Ball Other [employer] Other 09-23-2023 09:30-0400 Systolic blood pressure 147 mm[Hg] Modesto Ball Other [employer] Other 06-23-2023 11:00-0400 Body height Modesto Ball Other [employer] Other 06-23-2023 11:00-0400 Body mass index (BMI) [Ratio] 51.03 kg/m2 Modesto Ball Other [employer] Other 06-23-2023 11:00-0400 Body weight 143.43 kg Modesto Ball Other [employer] Other 06-23-2023 11:00-0400 Diastolic blood pressure 74 mm[Hg] Modesto Ball Other [employer] Other 06-23-2023 11:00-0400 Respiratory rate 20 /min Modesto Ball Other [facility] Other 06-23-2023 11:00-0400 Systolic blood pressure 116 mm[Hg] Modesto Ball Other [facility] Other 05-15-2023 00:03-0400 Diastolic blood pressure 76 mm[Hg] DO Modesto Ball Work Phone: [facility] 05-15-2023 00:03-0400 Heart rate 72 /min DO Modesto Ball Work Phone: [facility] 05-15-2023 00:03-0400 Respiratory rate 14 /min DO Modesto Ball Work Phone: [facility] 05-15-2023 00:03-0400 SaO2% (BldA) [Mass fraction] 96 % DO Modesto Ball Work Phone: [facility] 05-15-2023 00:03-0400 Systolic blood pressure 143 mm[Hg] DO Modesto Ball Work Phone: [facility] 05-14-2023 22:42-0400 Body temperature 97.5 [degF] DO Modesto Ball Work Phone: [facility] 05-14-2023 19:48-0400 Body height 170.18 cm DO Modesto Ball Work Phone: [facility] 05-14-2023 19:48-0400 Body weight 143.8 kg DO Modesto Ball Work Phone: [facility] 03-08-2023 09:15-0400 Body height 167.64 cm Modesto E Ball Work Phone: [facility] 250 DO Work Phone: 03-08-2023 09:15-0400 Body mass index (BMI) [Ratio] 50.68 kg/m2 Modesto E Ball Work Phone: [facility] 250 DO Work Phone: 03-08-2023 09:15-0400 Body surface area Derived from formula 2.42 m2 Modesto E Ball Work Phone: [facility] 250 DO Work Phone: 03-08-2023 09:15-0400 Body weight 142.43 kg Modesto E Ball Work Phone: [facility] 250 DO Work Phone: 03-08-2023 09:15-0400 Diastolic blood pressure 72 mm[Hg] Modesto E Ball Work Phone: [facility] 250 DO Work Phone: 03-08-2023 09:15-0400 Heart rate 62 /min Modesto E Ball Work Phone: [facility] 250 DO Work Phone: 03-08-2023 09:15-0400 Systolic blood pressure 120 mm[Hg] Modesto E Ball Work Phone: [facility] 250 DO Work Phone: 02-22-2023 11:00-0400 Body height Modesto Ball Other [email or web address] [facility] Other 02-22-2023 11:00-0400 Body mass index (BMI) [Ratio] 51.58 kg/m2 Modesto Ball Other [employer] Other 02-22-2023 11:00-0400 Body weight 144.97 kg Modesto Ball Other [employer] Other 02-22-2023 11:00-0400 Diastolic blood pressure 80 mm[Hg] Modesto Ball Other [employer] Other 02-22-2023 11:00-0400 Respiratory rate 20 /min Modesto Ball Other [employer] Other 02-22-2023 11:00-0400 Systolic blood pressure 128 mm[Hg] Modesto Ball Other [facility] Other 08-24-2022 09:00-0400 Diastolic blood pressure 66 mm[Hg] DO Modesto Ball Work Phone: [facility] 08-24-2022 09:00-0400 Heart rate 62 /min DO Modesto Ball Work Phone: [facility] 08-24-2022 09:00-0400 Respiratory rate 20 /min DO Modesto Ball Work Phone: [facility] 08-24-2022 09:00-0400 SaO2% (BldA) [Mass fraction] 96 % DO Modesto Ball Work Phone: [facility] 08-24-2022 09:00-0400 Systolic blood pressure 106 mm[Hg] DO Modesto Ball Work Phone: [facility] 08-24-2022 05:19-0400 Body height 170.18 cm DO Modesto Ball Work Phone: [facility] 08-24-2022 05:19-0400 Body weight 148.3 kg DO Modesto Ball Work Phone: [facility] 08-24-2022 05:10-0400 Body temperature 97.9 [degF] DO Modesto Ball Work Phone: [facility] 07-03-2022 07:42-0400 Diastolic blood pressure 81 mm[Hg] DO Modesto Ball Work Phone: [facility] 07-03-2022 07:42-0400 Heart rate 90 /min DO Modesto Ball Work Phone: [facility] 07-03-2022 07:42-0400 Respiratory rate 18 /min DO Modesto Ball Work Phone: [facility] 07-03-2022 07:42-0400 SaO2% (BldA) [Mass fraction] 97 % DO Modesto Ball Work Phone: [facility] 07-03-2022 07:42-0400 Systolic blood pressure 130 mm[Hg] DO Modesto Ball Work Phone: [facility] 07-03-2022 05:36-0400 Body weight 142.5 kg DO Modesto Ball Work Phone: [facility] 07-02-2022 19:55-0400 Body temperature 97.9 [degF] DO Modesto Ball Work Phone: [facility] 07-02-2022 18:56-0400 Inhaled oxygen flow rate 8 L/min DO Modesto Ball Work Phone: [facility] 07-02-2022 18:18-0400 Body height 170.18 cm DO Modesto Ball Work Phone: [facility] 07-02-2022 18:18-0400 Body mass index (BMI) [Ratio] 48.5 kg/m2 DO Modesto Ball Work Phone: [facility] 06-15-2022 11:29-0400 Body height 167.64 cm Modesto Oscar Ball Work Phone: [facility] DO Work Phone: 06-15-2022 11:29-0400 Body mass index (BMI) [Ratio] 51 kg/m2 Modesto E Ball Work Phone: [facility] [facility] DO Work Phone: 06-15-2022 11:29-0400 Body surface area Derived from formula 2.43 m2 Omdesto E Ball Work Phone: [facility] [facility] DO Work Phone: 06-15-2022 11:29-0400 Body weight 143.34 kg Modesto E Ball Work Phone: [facility] [facility] DO Work Phone: 06-15-2022 11:29-0400 Diastolic blood pressure 62 mm[Hg] Modesto E Ball Work Phone: [facility] [facility] DO Work Phone: 06-15-2022 11:29-0400 Heart rate 68 /min Modesto E Ball Work Phone: [facility] [facility] DO Work Phone: 06-15-2022 11:29-0400 Systolic blood pressure 108 mm[Hg] Modesto E Ball Work Phone: [facility] [facility] DO Work Phone: 03-16-2022 08:50-0400 Body height 167.64 cm Modesto E Ball Work Phone: [facility] DO Work Phone: 03-16-2022 08:50-0400 Body mass index (BMI) [Ratio] 51.65 kg/m2 Modesto E Ball Work Phone: [facility] DO Work Phone: 03-16-2022 08:50-0400 Body surface area Derived from formula 2.44 m2 Modesto E Ball Work Phone: [facility] [facility] DO Work Phone: 03-16-2022 08:50-0400 Body weight 145.15 kg Modesto E Ball Work Phone: [facility] DO Work Phone: 03-16-2022 08:50-0400 Diastolic blood pressure 70 mm[Hg] Modesto E Ball Work Phone: [facility] DO Work Phone: 03-16-2022 08:50-0400 Heart rate 54 /min Modesto E Ball Work Phone: [facility] DO Work Phone: 03-16-2022 08:50-0400 Systolic blood pressure 118 mm[Hg] Modesto Moore Ball Work Phone: [facility] DO Work Phone: 09-22-2021 00:00-0400 56 1 Modesto Moore Ball Work Phone: [facility] [facility] DO Work Phone: Comment on above: [id number] 09-07-2021 09:34-0400 Body height 168.91 cm Modesto Moore Ball Work Phone: [facility] [facility] DO Work Phone: 09-07-2021 09:34-0400 Body mass index (BMI) [Ratio] 53.26 kg/m2 Modesto Moore Ball Work Phone: [facility] [facility] DO Work Phone: 09-07-2021 09:34-0400 Body surface area Derived from formula 2.5 m2 Modesto Moore Ball Work Phone: [facility] DO Work Phone: 09-07-2021 09:34-0400 Body weight 151.96 kg Modesto Moore Ball Work Phone: [facility] DO Work Phone: 09-07-2021 09:34-0400 Diastolic blood pressure 56 mm[Hg] Modesto Moore Ball Work Phone: [facility] [facility] DO Work Phone: 09-07-2021 09:34-0400 Heart rate 70 /min Modesto Moore Ball Work Phone: [facility] DO Work Phone: 09-07-2021 09:34-0400 Systolic blood pressure 92 mm[Hg] Modesto Moore Ball Work Phone: [facility] [facility] DO Work Phone: Encounters Encounter Date Encounter Type Care Provider Facility Start: 10-25-2024 End: 10-25-2024 Office outpatient visit 25 minutes Michael Mullen MD Work Phone: [facility] Comment on above: Permanent atrial fib rillation (Multi) (Primary Dx); SOB (shortness of breath) on exertion; Complete heart block; Pacemaker; Mixed hyperlipidemia; Essential hypertension, benign; 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; QUETA (obstructive sleep apnea); BMI 50.0-59.9, adult (Multi); Former smoker Start: 09-27-2024 End: 09-27-2024 ambulatory Lalito Silva Facility:[facility] Start: 08-24-2024 End: 08-24-2024 ambulatory Carlos Alberto GIBSON Facility:[facility] Start: 08-14-2024 End: 08-14-2024 ambulatory DO Modesto Chavarria Work Phone: [facility] Work Phone: Start: 08-14-2024 End: 08-14-2024 Patient encounter procedure DO Modesto Chavarria Work Phone: [facility] Work Phone: Start: 08-07-2024 Non-patient / Non-visit DO Ivan Chavarria Work Phone: [facility] Work Phone: Start: 07-12-2024 Non-patient / Non-visit DO Ivan Chavarria Work Phone: [facility] Work Phone: Start: 06-22-2024 Non-patient / Non-visit DO Ivan Chavarria Work Phone: [facility] Work Phone: Start: 06-19-2024 End: 06-22-2024 Evaluation and management of inpatient DO Modesto Chavarria Work Phone: [facility] Work Phone: Start: 06-18-2024 Evaluation and manag ement of inpatient DO Modesto Chavarria Work Phone: [facility] Work Phone: Start: 06-18-2024 observation encounter DO Wade Chavarria Work Phone: [facility] Work Phone: Start: 05-14-2024 End: 05-14-2024 ambulatory Carlos Alberto GIBSON Facility:[facility] Start: 04-23-2024 End: 04-23-2024 ambulatory DO Modesto Chavarria Work Phone: [facility] Work Phone: Start: 04-23-2024 End: 04-23-2024 Patient encounter procedure DO Modesto Chavarria Work Phone: [facility] [place] Work Phone: Start: 04-23-2024 End: 04-23-2024 ambulatory [facility] Ambulatory Start: 04-23-2024 End: 04-23-2024 Office outpatient visit 25 minutes Lalito Silva MD Work Phone: [facility] Comment on above: Atherosclerosis of n ative coronary artery 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 angina pectoris (Primary Dx); Pacemaker; Permanent atrial fibrillation (Multi); Essential hypertension, benign; Complete heart block (Multi); BMI 50.0-59.9, adult (Multi); SOB (shortness of breath) on exertion; Mixed hyperlipidemia Start: 03-29-2024 End: 03-29-2024 ambulatory Lalito Silva Facility:[facility] Start: 03-26-2024 End: 03-26-2024 ambulatory [facility] Work Phone: Start: 03-26-2024 End: 03-26-2024 Patient encounter procedure [facility] Work Phone: Start: 12-26-2023 End: 12-26-2023 ambulatory Modesto Chavarria Other [facility] [employer] Other Start: 12-26-2023 Patient encounter procedure Modesto Chavarria [facility] Start: 10-17-2023 End: 10-17-2023 ambulatory Modesto Chavarria Other [facility] [employer] [employer] Other Start: 10-17-2023 Office outpatient vi sit 15 minutes Modesto Ball 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 Start: 07-12-2023 End: 07-12-2023 ambulatory Modesto Chavarria Other [facility] Other Start: 07-12-2023 Telephone encounter Modesto Chavarria [facility] Start: 06-23-2023 End: 06-23-2023 ambulatory Modesto Chavarria Other [facility] Other Start: 06-23-2023 Office outpatient vi sit 25 minutes Modesto Ball [facility] Start: 06-07-2023 End: 06-07-2023 ambulatory Modesto Chavarria Other [facility] Other Start: 06-07-2023 Telephone encounter Modesto Chavarria [facility] Start: 05-25-2023 End: 05-25-2023 ambulatory Modesto Chavarria Other [facility] [employer] Other Start: 05-25-2023 Telephone encounter [facility] TELLO [facility] Start: 05-23-2023 End: 05-23-2023 ambulatory Modesto Chavarria Other [facility] Other Start: 05-23-2023 Telephone encounter Modesto Jaramillo [facility] Start: 05-16-[address] Modesto Chavarria Facility:[id number] Start: 05-15-[address] Modesto Chavarria Facility:[id number] Start: 05-14-2023 Evaluation and manag ement of inpatient DO Modesto Chavarria Work Phone: [facility] Work Phone: Start: 05-12-2023 End: 05-12-2023 ambulatory Modesto Chavarria Other [employer] Other Start: 05-12-2023 Initial nursing faci lity care/day 35 minutes Modesto Chavarria [facility] Start: 05-11-2023 End: 05-11-2023 ambulatory Modesto Chavarria Other [facility] [employer] [employer] Other Start: 05-11-2023 Telephone encounter [facility] TELLO [facility] Start: 05-09-2023 End: 05-09-2023 ambulatory Modesto Chavarria Other [facility] [employer] Other Start: 05-09-2023 Telephone encounter [facility]esto TELLO [facility] Start: 04-28-2023 End: 04-28-2023 ambulatory Modesto Chavarria Other [facility] [employer] Other Start: 04-28-2023 Telephone encounter Modesto TELLO [facility] Start: 03-24-[address] Modesto Chavarria Facility:[id number] Start: 03-21-2023 End: 04-20-2023 ambulatory Shady KAZ Facility:H1 Start: 03-09-2023 Rx Renewal Modesto mcgill Work Phone: [facility] DO Work Phone: Start: 03-09-2023 End: 03-09-2023 ambulatory Modesto Chavarria Other [facility] Other Start: 03-09-2023 Telephone encounter Modesto Chavarria [facility] Start: 03-08-2023 Office outpatient vi sit 25 minutes Modesto Chavarria Work Phone: [facility] DO Work Phone: Start: 03-08-[address] [facility]: Start: 02-22-2023 Office outpatient vi sit 25 minutes Modesto Chavarria [facility] Start: 02-22-2023 Telephone encounter Modesto TELLO G [facility] Start: 02-22-2023 End: 02-23-[address] MODESTO CHAVARRIA [facility] [place] Other Start: 02-21-2023 End: 03-18-2023 ambulatory SHAIKH Shady MCCURDY Facility:H1 Start: 01-19-2023 End: 02-18-2023 ambulatory SHAIKH Shady MCCURDY Facility:[facility]1 Start: 12-22-2022 End: 01-19-[address] MODESTO CHAVARRIA Facility:H1 Start: 11-22-2022 End: 12-22-[address] MODESTO CHAVARRIA Facility:[facility]1 Start: 11-01-2022 End: 11-02-[address] MODESTO CHAVARRIA Facility:[facility]1 Start: 11-01-2022 Encounter for genera l adult medical examination without abnormal findings DR MODESTO CHAVARRIA [facility] Start: 10-28-2022 Adult health examination Wade Chavarria Other [facility] Other Start: 10-28-2022 End: 10-29-[address] [...] patient visit DO Modesto Chavarria Work Phone: [facility] Start: 08-22-2022 End: 09-20-[address] MODESTO CHAVARRIA Facility:[facility]1 Start: 07-22-2022 End: 08-21-[address] MODESTO CHAVARRIA Facility:[facility]1 Start: 07-09-[address] Modesto Chavarria Facility: Start: 07-03-[address] Modesto Chavarria Facility:[id number] Start: 07-02-2022 Chart Update Modesto mcgill Work Phone: [facility] [facility] DO Work Phone: Start: 07-02-[address] Lalito Silva II Facility:[id number] Start: 07-02-2022 End: 07-03-2022 Evaluation and management of inpatient DO Modesto Chavarria Work Phone: [facility] Start: 07-01-[address] Modesto Chavarria Facility: Start: 07-01-[address] Milo Cameron Facility: Start: 06-21-2022 End: 07-21-2022 ambulatory SHAIKH Shady MCCURDY Facility:[facility]1 Start: 06-15-2022 Office outpatient vi sit 25 minutes Modesto Moore Ball Work Phone: [facility] [facility] DO Work Phone: Start: 06-15-[address] Lalito Silva II Facility: Start: 05-21-2022 End: 06-18-2022 ambulatory SHAIKH Shady MCCURDY Facility:[facility]1 Start: 03-16-2022 Office outpatient vi sit 25 minutes Modesto Chavarria Work Phone: [facility] DO Work Phone: Start: 01-21-2022 Chart Update Modesto mcgill Work Phone: [facility] [facility] DO Work Phone: Start: 12-04-2021 Patient encounter procedure Modesto Chavarria Work Phone: [facility] [facility] DO Work Phone: Start: 09-30-2021 Message Modesto mcgill Work Phone: [facility] [facility] DO Work Phone: Start: 09-29-2021 Chart Update Modesto mcgill Work Phone: [facility] [facility] DO Work Phone: Start: 09-18-2021 Patient encounter procedure Modesto Chavarria Work Phone: [facility] 600 DO Work Phone: Start: 09-07-2021 Rx Renewal Modesto mcgill Work Phone: [facility] [facility] DO Work Phone: Start: 09-07-2021 Office outpatient vi sit 25 minutes Modesto Chavarria Work Phone: [facility] [facility] DO Work Phone: Start: 09-24-2019 Encounter for other preprocedural examination Modesto [facility] Other [email or web address] [facility] [place] Other Start: 09-24-2019 Encounter for preprocedural cardiovascular examination Modesto [facility] Other [facility] [employer] [employer] Other Start: 09-24-2019 Pre-procedure evalua tion check Modesto Chavarria Other [facility] [employer] Other Start: 09-24-2019 Preoperative cardiovascular examination Modesto Chavarria Other [facility] [employer] [employer] Other Start: 06-08-2017 End: 06-09-2017 Ambulatory DEFAULT PHYSICIAN Facility:[facility] Preoperative state Modesto Moore Ba ll Work Phone: [facility] [facility] DO Work Phone: Procedures Date Procedure Procedure Detail Performing Clinician Start: 10-25-2024 Ecg routine ecg w/le ast 12 lds w/i&r Michael Mullen MD Work Phone: Start: 06-18-2024 CT of abdomen and pe lvis without contrast DO Modesto [employer] Work Phone: Start: 06-18-2024 Plain chest X-ray DO Be njamin [employer] Work Phone: Start: 06-18-2024 SARS-CoV-2, Influenz a & RSV (PCR) DO Modesto [employer] Work Phone: Start: 04-23-2024 Diagnostic radiograp hy of abdomen DO Modesto [employer] Work Phone: Start: 08-24-2022 CT cervical spine wi thout contrast DO Modesto [employer] Work Phone: Start: 08-24-2022 CT of head without contrast DO Modesto [employer] Work Phone: Start: 08-24-2022 Plain chest X-ray DO Be njamin [employer] Work Phone: Start: 07-03-2022 Plain chest X-ray DO Be njamin [employer] Work Phone: Start: 07-02-2022 Plain chest X-ray DO Be njamin [employer] Work Phone: Start: 07-02-2022 Implantation of card iac pacemaker DO Modesto [employer] Work Phone: Start: 12-23-2015 Screening for malign ant neoplasm of colon Modesto [employer] Other Start: 11-21-2005 Total colonoscopy Wade min E Ball Work Phone: Amputation of hand, thumb or finger Modesto E [employer] Work Phone: Arthroplasty of knee Benjami n E [employer] Work Phone: Cataract surgery Modesto Moore [employer] Work Phone: Cystoscopy Modesto E [facility] Work Phone: Dental surgical procedure Be njamin E [facility] Work Phone: Depression screening Arnulfo n [facility] Other Hemorrhoidectomy Modesto E [facility] Work Phone: Insertion of pacemak er pulse generator Modesto E [facility] Work Phone: Lithotripsy Modesto E [facility] Work Phone: Pyloromyotomy Modesto E Bal l Work Phone: Radical orchiectomy Modesto E [facility] Work Phone: Repair of cystocele Modesto E [facility] Work Phone: Repair of shoulder Modesto E [facility] Work Phone: Repair of umbilical hernia B enjamin E [facility] Work Phone: SARS Antigen (LFIA) DO Wade min Ball Work Phone: SARS Antigen (LFIA) DO Wade min Ball Work Phone: Screening for malign ant neoplasm of prostate Modesto Chavarria Other Plan of Treatment Date Care Activity Detail Author Start: 08-24-2032 DTaP/Tdap/Td Vaccine s (5 - Td or Tdap) DTaP/Tdap/Td Vaccines (5 - Td or Tdap) [facility] Start: 08-24-2032 DTaP/Tdap/Td Vaccine s (7 - Td or Tdap) DTaP/Tdap/Td Vaccines (7 - Td or Tdap) [facility] Start: 08-26-2025 ambulatory Ambulatory Facility:[facility] [place] Start: 06-19-2025 Echocardiography Echocardiogram [facility] Start: 05-07-2025 End: 05-07-2025 Patient encounter procedure 05/07/2025 3:30 PM EDT Office Visit [facility] [address] [facility] [address] [place] [id number] Michael Mullen MD [address] [address] [place] [address] [facility] Start: 12-27-2024 Medicare Annual Well ness Visit Medicare Annual Wellness Visit (AWV) [facility] Start: 10-25-2024 End: 10-25-2024 Patient encounter procedure 10/25/2024 3:00 PM EST Office Visit [facility] [address] [place] [id number] Michael Mullen MD [address] [place] [address] [facility] Start: 07-22-2024 COVID-19 Vaccine () COVID-19 Vaccine () [facility] Start: 06-22-2024 [facility] Start: 06-19-2024 aPTT in Platelet poo r plasma by Coagulation assay [facility] Start: 06-19-2024 [facility] Start: 06-18-2024 End: 06-18-2024 [facility] Start: 06-18-2024 Physical therapy procedure [facility] Start: 06-18-2024 Referral to occupati onal therapist [facility] Start: 06-18-2024 Hospital admission [facility] Start: 04-23-2024 End: 04-23-2025 Comprehensive metabolic 2000 panel - Serum or Plasma Comprehensive Metabolic Panel Lab Routine Essential hypertension, benign Expected: 04/23/2024 (Approximate), Expires: 04/23/2025 [facility] Service Area Work Phone: Comment on above: Expected: 04/23/2024 (Approximate), Expires: 04/23/2025 Start: 04-23-2024 End: 04-23-2025 Natriuretic peptide B [Mass/volume] in Blood B-Type Natriuretic Peptide Lab Routine SOB (shortness of breath) on exertion Expected: 04/23/2024 (Approximate), Expires: 04/23/2025 [facility] Work Phone: Comment on above: Expected: 04/23/2024 (Approximate), Expires: 04/23/2025 Start: 04-20-2024 End: 04-20-2024 Patient encounter procedure 04/20/2024 2:40 PM EDT Office Visit [facility] [address] [place] [phone] Lalito Silva MD [address] [place] [address] [facility] Start: 04-11-2024 Glaucoma screening Diabetes: R etinopathy Screening [facility] Start: 10-29-2023 Medicare Annual Well ness Visit Medicare Annual Wellness Visit (AWV) [facility] Start: 10-07-2023 FUV, Provider: Lalito Silva, Status: Pen, Time: 2:50 PM FUV, Provider: Lalito Silva, Status: Pen, Time: 2:50 PM [facility] [address] DO Work Phone: Start: 07-22-2023 COVID-19 Vaccine ( season) COVID-19 Vaccine ( season) [facility] Start: 07-22-2023 Influenza vaccination Influenza Vacc ine (#1) [facility] Start: 05-27-2023 [facility] Start: 05-26-2023 [facility] Start: 05-25-2023 [facility] Start: 05-24-2023 [facility] Start: 05-23-2023 [facility] Start: 05-22-2023 [facility] Start: 05-21-2023 [facility] Start: 05-20-2023 [facility] Start: 05-19-2023 [facility] Start: 05-18-2023 [facility] Start: 05-17-2023 [facility] Start: 05-16-2023 [facility] Start: 05-15-2023 [facility] Start: 05-14-2023 Referral to superintendent distribution [facility] Start: 05-14-2023 Physical therapy procedure [facility] Start: 05-14-2023 Referral to occupati onal therapist [facility] Start: 05-14-2023 Hospital admission [facility] Start: 05-14-2023 End: 05-14-2023 [facility] Start: 05-14-2023 CT cervical spine wi thout contrast CT cervical spine wo con [facility] Start: 05-14-2023 CT Cervical spine WO contrast [facility] Start: 05-14-2023 CT of head without contrast CT head/brain wo con [facility] Start: 05-14-2023 CT Unspecified body region WO contrast [facility] Start: 05-14-2023 CT Chest WO contrast [facility] Start: 05-14-2023 CT of chest without contrast CT chest wo [facility] Start: 03-08-2023 FUV, Provider: Lalito Silva, Status: Pen, Time: 9:10 AM FUV, Provider: Lalito Silva, Status: Pen, Time: 9:10 AM [facility] DO Work Phone: Start: 10-17-2022 COVID-19 Vaccine (5 - Pfizer series) COVID-19 Vaccine (5 - Pfizer series) [facility] Start: 08-24-2022 [facility] Start: 07-09-2022 CRISTOFER, Provider : LINDA TRACY DOLL REPAIRER 1,[id number], Status: Pen, Time: 9:30 AM CRISTOFER, Provider: LINDA TRACY DOLL REPAIRER 1,[id number], Status: Pen, Time: 9:30 AM [facility] [facility] DO Work Phone: Start: 07-03-2022 [facility] Start: 07-02-2022 End: 07-02-2022 [facility] Start: 07-02-2022 Insertion of Pacemak er Lead into Right Ventricle, Percutaneous Approach Insertion of Pacemaker Lead into Right Ventricle, Percutaneous Approach [facility] Start: 07-02-2022 Insertion of Pacemak er, Single Chamber into Chest Subcutaneous Tissue and Fascia, Percutaneous Approach Insertion of Pacemaker, Single Chamber into Chest Subcutaneous Tissue and Fascia, Percutaneous Approach [facility] Start: 06-15-2022 FUV, Provider: Lalito Silva, Status: Pen, Time: 11:30 AM FUV, Provider: Lalito Silva, Status: Pen, Time: 11:30 AM -[facility] [facility] DO Work Phone: Start: 03-16-2022 FUV, Provider: Lalito Silva, Status: Pen, Time: 8:40 AM FUV, Provider: Lalito Silva, Status: Pen, Time: 8:40 AM -[facility] DO Work Phone: Start: 02-09-2022 Glaucoma screening Diabetes: R etinopathy Screening [facility] Start: 09-22-2021 [facility], Provider: Naeem Ronquillo, Status: Pen, Time: 1:00 PM [facility], Provider: Naeem Ronquillo, Status: Pen, Time: 1:00 PM -[facility] [facility] DO Work Phone: Start: 2020 RSV High Risk: (Elde rly (60+) or Population) (1 - 1-dose 75+ series) RSV High Risk: (Elderly (60+) or Population) (1 - 1-dose 75+ series) [facility] Start: 11-21-2017 Pneumococcal Vaccine : 65+ Years (2 - PCV) Pneumococcal Vaccine: 65+ Years (2 - PCV) [facility] Start: 2005 RSV patient s and/or patients aged 60+ years (1 - 1-dose 60+ series) RSV patients and/or patients aged 60+ years (1 - 1-dose 60+ series) [facility] Start: 1995 Zoster Vaccines (1 of 2) Zoste r Vaccines (1 of 2) [facility] Start: 1964 Urine screening for protein Diabetes: Urine Protein Screening [facility] Start: 1963 [facility] Start: 1955 Diabetic foot examination Diabetes: Foot Exam [facility] Start: 1945 Creatinine measurement Creatinine Le yani [facility] Start: 1945 Hemoglobin A1c measurement Cyndy betes: Hemoglobin A1C [facility] Start: 1945 Lipid panel Lipid Panel [facility] Start: 1945 Medicare Annual Well ness Visit Medicare Annual Wellness Visit (AWV) [facility] Start: 1945 Potassium measurement Potassium Leve l [facility] Albumin/Globulin ratio [facility] Anion gap measurement [facility] Basophils [#/volume] in Blood by Automated count [facility] Basophils/100 leukoc ytes in Blood by Automated count [facility] Eosinophils [#/volum e] in Blood [facility] Eosinophils/100 leuk ocytes in Blood by Automated count [facility] Erythrocyte distribu tion width [Ratio] by Automated count [facility] Erythrocytes [#/volu me] in Blood [facility] Globulin [Mass/volum e] in Serum [facility] Hematocrit [Volume Fraction] of Blood [facility] Hemoglobin [Mass/vol ume] in Blood [facility] Leukocytes [#/volume ] corrected for nucleated erythrocytes in Blood by Automated coun [facility] Leukocytes [#/volume ] in Blood [facility] Lymphocytes [#/volum e] in Blood by Automated count [facility] Lymphocytes/100 leuk ocytes in Blood by Automated count [facility] MCH [Entitic mass] b y Automated count [facility] MCHC [Mass/volume] b y Automated count [facility] MCV [Entitic volume] by Automated count [facility] Monocytes [#/volume] in Blood by Automated count [facility] Monocytes/100 leukoc ytes in Blood by Automated count [facility] Neutrophils [#/volum e] in Blood by Automated count [facility] Neutrophils/100 leuk ocytes in Blood by Automated count [facility] Nucleated erythrocyt es [Presence] in Blood by Automated count [facility] Patient Education Concussion, Ad ult (DC) Laceration Repair With Stitches (DC) [facility] Work Phone: Patient referral [facility] Work Phone: Platelet mean volume [Entitic volume] in Blood by Automated count [facility] Platelets [#/volume] in Blood [facility] SARS-CoV-2 (COVID-19 ) N gene [Presence] in Respiratory specimen by NA with probe detection [facility] Work Phone: Immunizations Immunization Date Immunization Notes Care Provider Fa cilijaime 09-23-2023 influenza virus vaccine, unspecified formulation [facility] 09-23-2023 influenza, high dose seasonal, preservative-free Modesto Chavarria Other [email or web address] [facility] Lee Silber Other 08-24-2022 tetanus toxoid, redu siri diphtheria toxoid, and acellular pertussis vaccine, adsorbed DO Modesto Chavarria Work Phone: [facility] 08-22-2022 COVID-19 Vaccine Pfi zer - Documentation Purposes Only Modesto Chavarria Other [email or web address] [facility] [place] Other 08-22-2022 diphtheria, tetanus toxoids and acellular pertussis vaccine, unspecified formulation Modesto Chavarria Other [facility] 08-22-2022 Fluzone High-Dose Quadrivalent 0.7 ML Intramuscular Suspension Prefilled Syringe Modesto Chavarria Work Phone: [facility] [employer] DO Work Phone: 08-22-2022 influenza virus vaccine, split virus (incl. purified surface antigen) Modesto Chavarria Other [employer] Other 08-22-2022 influenza, high dose seasonal, preservative-free Lalito Silva MD Work Phone: [facility] Work Phone: 08-22-2022 Pfizer COVID-19 Vac Bivalent 30 MCG/0.3ML Intramuscular Suspension Modesto Oscar Chavarria Work Phone: [facility] [employer] DO Work Phone: 08-22-2022 influenza virus vaccine, unspecified formulation Lalito Silva MD Work Phone: [facility] 02-02-2022 diphtheria, tetanus toxoids and pertussis vaccine Modesto Chavarria Work Phone: [facility] 02-02-2022 tetanus toxoid, redu siri diphtheria toxoid, and acellular pertussis vaccine, adsorbed Lalito Silva MD Work Phone: [facility] Work Phone: 08-26-2021 Pfizer-BioNTech COVID-19 Vacc 30 MCG/0.3ML Intramuscular Suspension Modesto Chavarria Work Phone: [facility] Work Phone: 08-21-2021 influenza virus vaccine, split virus (incl. purified surface antigen) Modesto Chavarria Other [employer] Other 08-21-2021 influenza virus vaccine, unspecified formulation [facility] 08-07-2021 influenza virus vaccine, unspecified formulation Lalito Silva MD Work Phone: [facility] Work Phone: 08-07-2021 influenza, injectabl e, quadrivalent, contains preservative Modesto Chavarria Work Phone: [facility] DO Work Phone: Comment on above: Series: 01-12-2021 Pfizer-BioNTech COVID-19 Vacc 30 MCG/0.3ML Intramuscular Suspension Modesto Chavarria Work Phone: [facility] DO Work Phone: 12-22-2020 Pfizer-BioNTech COVID-19 Vacc 30 MCG/0.3ML Intramuscular Suspension Modesto Chavarria Work Phone: [facility] Work Phone: 07-29-2020 influenza virus vaccine, split virus (incl. purified surface antigen) Modesto Chavarria Other [facility] [place] Other 07-29-2020 influenza virus vaccine, unspecified formulation [facility] 07-22-2020 influenza, seasonal, injectable Modesto Chavarria Work Phone: [facility] DO Work Phone: 09-14-2019 influenza virus vaccine, split virus (incl. purified surface antigen) Modesto Chavarria Other [facility] [place] Other 09-14-2019 influenza virus vaccine, unspecified formulation [facility] 08-21-2019 influenza virus vaccine, unspecified formulation Modesto Chavarria Work Phone: [place] [address] DO Work Phone: 04-29-2019 tetanus toxoid, redu siri diphtheria toxoid, and acellular pertussis vaccine, adsorbed Lalito Silva MD Work Phone: [facility] Work Phone: 04-28-2019 diphtheria, tetanus toxoids and acellular pertussis vaccine, unspecified formulation Modesto Chavarria Other [facility] 08-21-2018 influenza virus vaccine, unspecified formulation Modesto Chavarria Work Phone: [place] [address] DO Work Phone: 08-10-2018 influenza virus vaccine, split virus (incl. purified surface antigen) Modesto Chavarria Other [facility] [place] Other 08-10-2018 influenza virus vaccine, unspecified formulation [facility] 08-10-2018 Seasonal trivalent influenza vaccine, adjuvanted, preservative free Modesto Chavarria Work Phone: [place] [address] DO Work Phone: 08-09-2017 influenza virus vaccine, split virus (incl. purified surface antigen) Modesto Aura Other [facility] [place] Other 08-09-2017 influenza virus vaccine, unspecified formulation [facility] 08-09-2017 influenza, high dose seasonal, preservative-free Modesto Chavarria Work Phone: [place] [address] DO Work Phone: 11-21-2016 influenza virus vaccine, unspecified formulation Modesto Chavarria Work Phone: [place] [address] DO Work Phone: 11-21-2016 pneumococcal polysaccharide vaccine, 23 valent Modesto Chavarria Work Phone: [place] [address] DO Work Phone: 08-05-2016 influenza virus vaccine, split virus (incl. purified surface antigen) Modesto Chavarria Other [facility] [place] Other 08-05-2016 influenza virus vaccine, unspecified formulation [facility] 08-05-2016 pneumococcal conjuga te vaccine, 13 valent Modesto Chavarria Other [facility] 08-15-2014 tetanus and diphther ia toxoids, adsorbed, preservative free, for adult use (5 Lf of tetanus toxoid and 2 Lf of diphtheria toxoid) Modesto Chavarria Other [facility] 12-11-2013 pneumococcal polysaccharide vaccine, 23 valent Modesto Chavarria Other [facility] 08-01-2013 tetanus and diphther ia toxoids, adsorbed, preservative free, for adult use (5 Lf of tetanus toxoid and 2 Lf of diphtheria toxoid) Modesto Chavarria Other [facility] Payers Date Payer Category Payer Self-pay [id number] 2008 Medicare [id number] 1959 Medicare [id number] 1959 Unknown [id number] 1945 Unknown [id number] 2.16.84 0.1.426900.3.579.2.593 1945 Unknown [id number] 2.16.84 0.1.209938.3.579.2.593 1945 Unknown [id number] 2.16.84 0.1.746648.3.579.2.593 1945 Unknown [id number] 2.16.84 0.1.974119.3.579.2.593 1945 Unknown [id number] 2.16.84 0.1.171716.3.579.2.593 1945 Unknown [id number] 2.16.84 0.1.498175.3.579.2.593 1945 Unknown [id number] 2.16.84 0.1.346326.3.579.2.593 1945 Unknown [id number] 2.16.84 0.1.196988.3.579.2.593 1945 Unknown [id number] 2.16.84 0.1.731568.3.579.2.593 1945 Unknown [id number] 2.16.84 0.1.132556.3.579.2.593 1945 Unknown [id number] 2.16.84 0.1.185271.3.579.2.593 1945 Unknown [id number] 2.16.84 0.1.342508.3.579.2.593 1945 Unknown [id number] 2.16.84 0.1.592436.3.579.2.593 1945 Unknown [id number] 2.16.84 0.1.539463.3.579.2.593 1945 Unknown [id number] 2.16.84 0.1.933225.3.579.2.593 1945 Unknown [id number] 2.16.84 0.1.023884.3.579.2.593 1945 Unknown [id number] 2.16.84 0.1.664383.3.579.2.593 1945 Unknown [id number] 2.16. 840.1.777335.3.579.2.356 1945 Unknown [id number] 2.16. 840.1.760859.3.579.2.356 1945 Unknown [id number] 2.16. 840.1.898303.3.579.2.356 1945 Unknown [id number] 2.16 840.1.404055.3.579.2.356 1945 Unknown [id number] 2. 840.1.089012.3.579.2.356 1945 Unknown [id number] 2.16. 840.1.712359.3.579.2.356 1945 Unknown [id number] 2.16. 840.1.063674.3.579.2.356 1945 Unknown [id number] 2.16 840.1.315656.3.579.2.356 1945 Unknown [id number] 2.16. 840.1.196817.3.579.2.356 1945 Unknown [id number] 2.16. 840.1.328001.3.579.2.356 1945 Unknown [id number] 2.16. 840.1.923964.3.579.2.356 1945 Unknown [id number] 2.16. 840.1.799745.3.579.2.356 1945 Unknown [id number] 2.16. 840.1.023636.3.579.2.356 1945 Unknown [id number] 2.16.8 40.1.752501.3.579.2.1244 1945 Unknown [id number] 2.16.8 40.1.755060.3.579.2.1244 1945 Unknown [id number] 2.16.8 40.1.815047.3.579.2.727 1945 Unknown [id number] 2.16.8 40.1.188405.3.579.2.727 1945 Unknown [id number] 2.16.8 40.1.706665.3.579.2.727 1945 Unknown [id number] 2.16.8 40.1.224375.3.579.2.727 1945 Unknown [id number] 2.16.8 40.1.789808.3.579.2.727 Unknown Unknown [employer] Health Claims [id number] Unknown [id number] Unknown [id number] 2.16.8 40.1.902715.3.579.2.531 Unknown [id number] 2.16.8 40.1.284473.3.579.2.531 Social History Date Type Detail Facility Start: 10-06-2023 End: 04-23-2024 No illicit drug use No illicit drug use [place] [address] DO Work Phone: Comment on above: QUIT 1996; Start: 07-02-2022 End: 10-06-2023 Tobacco smoking status [facility] Ex-smoker (finding) [facility] Start: 1945 Sex Assigned At Male [facility] Start: 08-24-2022 Tobacco smoking status OHIS Tobacco smoking consumption unknown (finding) [facility] Start: 10-06-2023 End: 04-23-2024 Sex Assigned At [facility] [place] Other History of tobacco use Current smoker [facility] Work Phone: History of tobacco use Cigarette Smoker [facility] Work Phone: Start: 10-07-2023 End: 10-25-2024 Alcohol intake Current drinker of alcohol (finding) [facility] Work Phone: Start: 10-06-2023 Alcohol [facility] Start: 1945 Sex Assigned At Not on file [facility] Work Phone: Start: 09-27-2023 End: 10-25-2024 Exposure to SARS-CoV-2 (event) Not sure [facility] Start: 06-19-2024 Tobacco smoking status NHIS Never smoked tobacco (finding) [facility] Medical Equipment Procedure Code Equipment Code Equipment Origin al Text Equipment Identifier Dates Insertion, pacemaker Endocardial pacing lead [id number] FDA Start: 07-02-2022 Insertion, pacemaker Single-chamber implantable pacemaker, rate-responsive ()[id number] FDA Start: 07-02-2022 Pen Needle, Diab [...] Facility 06-22-2024 Functional status Patient at [facility] Work Phone: 07-03-2022 Functional status Patient is Pro 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 male Chief Complaint Follow-up HPI Patient is here for follow-up continue management for permanent atrial fibrillation, heart block status post permanent pacemaker implantation, coronary artery disease with prior PCI to the circumflex remotely. He is a patient of Dr. Silva. I saw him in the hospital recently for syncopal episode attributed to transient hypotension and dehydration. Since his discharge from the hospital patient report he is feeling well. He denies any complaint of chest pain, palpitation, lightheadedness, dizziness or syncope but admit to very limited exercise tolerance. He is compliant with his medication. His previous echocardiogram showed preserved LV systolic function. His heart cath was back in 2018. His recent device check noted and reviewed reviewed with him. Assessment 1. Permanent atrial fibrillation heart rate controlled 2. History of AV andrés disease and complete heart block status post permanent pacemaker implantation with appropriate device function 3. Coronary artery disease with remote PCI to the circumflex stable no anginal symptoms 4. Morbid obesity currently on Ozempic and has lost some weight 5. Long-term anticoagulation well-tolerated with Coumadin without any side effect 6. Recent hospitalization for GI symptoms and hypotension resolved his recent hospitalization record noted and reviewed with him 7. Hyperlipidemia on pravastatin 8. Obstructive sleep apnea has not been compliant with his CPAP Plan 1. I reviewed with the patient his recent hospitalization record, lab work and device check 2. I encouraged him to be compliant with his CPAP 3. I encouraged him to continue to address his weight and counseled him regarding diet and exercise 4. Risk, benefit alternative of anticoagulation reviewed with him he understood and agreed 5. I will see him back in the office in 6 months and follow-up Review of Systems All other systems reviewed and are negative. Vitals: 10/25/24 1508 BP: 100/64 BP Location: Left arm Patient Position: Sitting Pulse: 66 Weight: 138 kg (305 lb) Height: 1.702 m (5' 7 ) Objective Physical Exam Constitutional: Appearance: Normal appearance. HENT: Nose: Nose normal. Neck: Vascular: No carotid bruit. Cardiovascular: Rate and Rhythm: Normal rate. Rhythm irregular. Pulses: Normal pulses. Heart sounds: Normal heart [...] 2 times a day., Disp: , Rfl: nitroglycerin (Nitrostat) 0.4 mg [...] once daily., Disp: 90 tablet, Rfl: 3 warfarin (Coumadin) 4 mg tablet, Take 1 tablet (4 mg) by mouth. Take one tablet by mouth as directed by [facility], Disp: , Rfl: Assessment/Plan 1. Permanent atrial fibrillation (Multi) Follow Up In Cardiology Follow Up In Cardiology ECG 12 Lead 2. SOB (shortness of breath) on exertion 3. Complete heart block 4. Pacemaker 5. Mixed hyperlipidemia 6. Essential hypertension, benign 7. 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 8. QUETA (obstructive sleep apnea) 9. BMI 50.0-59.9, adult (Multi) 10. Former smoker Scribe Attestation By signing my name below, I, Mee Ash LPN attest that this documentation has been prepared under the direction and in the presence of Michael Mullen MD. Provider Attestation - Scribe documentation All medical record entries made by the Scribe were at my direction and personally dictated by me. I have reviewed the chart and agree that the record accurately reflects my personal performance of the history, physical exam, discussion and plan. documented in this encounter [facility] Work Phone: 10-25-2024 Instructions Magdalena Feliciano LPN - 10/25/2024 3:00 PM EST Please bring all medicines, vitamins, and herbal supplements with you when you come to the office. Prescriptions will not be filled unless you are compliant with your follow up appointments or have a follow up appointment scheduled as per instruction of your physician. Refills should be requested at the time of your visit. BMI was above normal measurement. Current weight: 138 kg (305 lb) Weight change since last visit (-) denotes wt loss -17 lbs Weight loss needed to achieve BMI 25: 145.7 Lbs Weight loss needed to achieve BMI 30: 113.9 Lbs Provided instructions on dietary changes Provided instructions on exercise. Pacemaker/Defibrillator follow up per routine The following attachments cannot be sent through Care Everywhere.Heart Healthy Diet (Cymraes)documented in this encounter [facility] Work Phone: 08-24-2024 Note Patient Education Urology Urinary Incontinence [...] stimulation). ? For women, using a medical practice manager to prevent urine leaks. This is a [...] can protect the (more content not included)... [facility] 06-21-2024 Progress note Note Date/Time June 21, 2024 1:42pm [facility] [address] [place] [address] Hospitalist Progress Note Signed Patient: Nirmal Chaidez MR#: [id number] : 1945 Acct:[id number] Age/Sex: 78 / M Adm Date: 4 Loc: Room: [address] [place] [address] Type: ADM IN Attending Dr: Stalin Miranda [...] 60 18 136/85 95 Room Air 06/21/24 11:06/21/24 11:06/21/24 11:06/21/24 11:06/21/24 11:06/21/24 11:06/18/24 23:31 Narrative: Constitutional: Obese WM, resting in [...] <Electronically signed by Stalin Miranda MD> 06/21/24 1350 [facility] Work Phone: 1(444) 167-688207-31-2024 Progress note Author Stalin Miranda [facility] June 20, 2024 1:50pm Note Date/Time June 20, 2024 1:27 pm [facility] [address] [place] [address] Hospitalist Progress Note Signed Patient: Nirmal Chaidez MR#: [id number] : 1945 Acct:[id number] Age/Sex: 78 / M Adm Date: 4 Loc: Room: [address] [place] [address] Type: ADM IN Attending Dr: Stalin Miranda [...] want to move forward with going to [facility]. Saranyall need 2 additional midnights for patient to [...] Lactated Ringers IV 06/20/24 22:24 75 mls/hr .[id number] KAYKAY Administration Insulin Glargine 10 units 06/19/24 [...] code Documented By: Stalin Miranda MD 4 [id number] Signed By: <Electronically signed by Stalin Miranda MD> 06/20/24 1350 [facility] Work Phone: 1(308) 523-810207-31-2024 Progress note Author Michael Mullen [facility] June 20, 2024 11:29am Note Date/Time June 20, 2024 11:2 9am [facility] [address] [place] [address] Cardiology Progress Note Signed Patient: Nirmal Chaidez MR#: [id number] : 1945 Acct:[id number] Age/Sex: 78 / M Adm Date: 4 Loc: Room: [address] [place] [address] Type: ADM IN Attending Dr: Stalin Miranda MD Copies to: ~ Date of Service: 06/20/2024 Subjective Interval history: Patient reported overall improvement. No further nausea or vomiting. Hemodynamically stable. Renal function is improving Exam Physical Exam Vital Signs: Temp Pulse Resp BP Pulse Ox O2 Del Method FiO2 97.4 F L 64 20 129/69 94 L Room Air 06/20/24 09:17 06/20/24 09:17 06/20/24 09:17 06/20/24 [...] MPV Neut % (Auto) Lymph % (Auto) [place] % (Auto) Eos % (Auto) Baso % (Auto) Nucleat RBC Rel Count Neut # (Auto) Lymph # (Auto) [place] # (Auto) Eos # (Auto) Baso # [...] % (Auto) 70.3 Lymph % (Auto) 18.3 [place] % (Auto) 8.0 Eos % (Auto) 2.7 Baso % (Auto) 0.7 Nucleat RBC Rel Count 0.2 Neut # (Auto) 6.1 Lymph # (Auto) 1.6 [place] # (Auto) 0.7 Eos # (Auto) 0.2 [...] signed by MD Michael Mullen> 06/20/24 1129 [facility] Work Phone: 1(968) 584-318007-30-2024 Progress note Author Stalin Miranda [facility] June 19, 2024 8:14pm Note Date/Time June 19, 2024 7:37 pm [facility] [address] [place] [address] Hospitalist Progress Note Signed Patient: Nirmal Chaidez MR#: [id number] : 1945 Acct:[id number] Age/Sex: 78 / M Adm Date: 4 Loc: Room: [address] [place] [address] Type: ADM IN Attending Dr: Stalin Miranda [...] Actually states that patient going to a long term facility may be in his best interest, [...] Full code Documented By: Stalin Miranda MD [id number] Signed By: <Electronically signed by Stalin Miranda MD> 06/19/242013 [facility] Work Phone: 1(185) 178-434707-30-2024 Consult note Author Michael Mullen [facility] June 19, 2024 11:38am Note Date/Time June 19, 2024 11:3 4am [facility] [address] [place] [address] Cardiology Consult Note Signed Patient: Nirmal Chaidez MR#: [id number] : 1945 Acct:[id number] Age/Sex: 78 / M Adm Date: Loc: Room: [address] [place] [address] Type: ADM INOo Attending Dr: Stalin Miranda [...] PCI to the left circumflex back in 2016 presented to the hospital with presyncopal episode. [...] system is negative other than mentioned above [facility] Medical History (Updated 06/18/24 @ 23:00 by [...] Lymph # (Auto) 2.2 1.9 (1.00-4.8) x10E3/uL [place] # (Auto) 0.7 0.8 (0.0-0.8) x10E3/uL Eos [...] ml @ 999 mls/hr IV .Q31M ONE Rx#:[id number] Oral 200 / 200 Other: # Voids [...] PCI to the left circumflex back in 2016 5. Trivial flat troponin elevation due to [...] signed by MD Michael Mullen> 06/19/24 [facility] Work Phone: 1(721) 896-819307-30-2024 History and physical note Author Stalin Miranda [facility] June 18, 2024 11:07pm Note Date/Time June 18, 2024 10:0 5pm [facility] [address] [place] [address] Hospitalist H&P Signed Patient: Nirmal Chaidez MR#: [id number] : 1945 Acct:[id number] Age/Sex: 78 / M Adm Date: 4 Loc: 3T Room: [address] [place] [address] Type: ADM INOo Attending Dr: Stalin Miranda [...] that which is noted above in HPI [facility] Medical History (Updated 06/18/24 @ 23:00 by [...] % (Auto) 18.8 % (.) 06/18/24 15:52 [place] % (Auto) 5.6 % (.) 06/18/24 15:52 Eos % (Auto) 1.1 % (.) 06/18/24 15:52 Baso % (Auto) 0.6 % (.) 06/18/24 15:52 Nucleat RBC Rel Count 0.1 /100 WBC (0-0.5) 06/18/24 15:52 Neut # (Auto) 8.6 x10E3/uL (1.8-7.7) H 06/18/24 15:52 Lymph # (Auto) 2.2 x10E3/uL (1.00-4.8) 06/18/24 15:52 [place] # (Auto) 0.7 x10E3/uL (0.0-0.8) 06/18/24 15:52 [...] pH 5.5 (5.0-9.0) 06/18/24 19:00 Ur Specific Russell 1.014 (1.001-1.030) 06/18/24 19:00 Urine Protein Negative [...] 2 Documented By: Stalin Miranda MD 4 1460 Signed By: <Electronically signed by Stalin Miranda MD> 06/18/24 5569 [facility] Work Phone: 1(283) 282-441806-03-2024 History of Present illness Narrative* Lalito Silva [...] one tablet by mouth as directed by [facility], Disp: , Rfl: 1. Pacemaker [...] - B-Type Natriuretic Peptide 7. 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 No recurrence of [...] my direction and personally dictated by me. Lucinaave reviewed the chart and agree that the record accurately reflects my personal performance of the history, physical exam, discussion and plan. [facility] Work Phone: 1(282) 519-759506-03-2024 Instructions* Patient Instructions* Destiney Rodrigez LPN - [...] time of your visit. [facility] Work Phone: 1(366) 850-257602-05-2024 Evaluation note* Encounter Date Diagnosis Assessment Notes [...] are maintaining regular scheduled appts with their superintendent distribution. No bleeding complications Dec, Stage 3a chronic [...] use, the patient reduces the risk for KS, CVA, HTN, cardiac dysrhythmias and sudden cardiac [...] diastolic congestive heart failure (ICD-10 - I50.33) [employer] Other 11-27-2023 Evaluation note* Encounter Date Diagnosis [...] and plan to stop Metformin in future [employer] Other 11-27-2023 Evaluation note* Encounter Date Diagnosis [...] index [BMI] 50.0-59.9, adult (ICD-10 - Z68.43) [employer] Other 11-17-2023 History of Present illness Narrative* [...] one tablet by mouth as directed by [facility], Disp: , Rfl: Assessment/Plan 1. Pacemaker Satisfactory device checks demonstrating greater than 10-year battery life 2. Permanent atrial fibrillation (CMS/HCC) Treated with rate control and antithrombotic therapy. Stable 3. Mixed hyperlipidemia Well-controlled on current therapy 4. Essential hypertension, benign Well-controlled on current therapy 5. Complete heart block (CMS/HCC) Necessitating pacemaker implantation. Device checks are satisfactory 6. 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 Asymptomatic. [facility] Work Phone: 1(868) 209-623011-17-2023 Instructions* Patient Instructions* Ashleigh Starks LPN - [...] follow up per routine [facility] Work Phone: [phone]) 886-553611-03-2023 Evaluation note* Encounter Date Diagnosis Assessment Notes [...] are maintaining regular scheduled appts with their superintendent distribution. No bleeding complications Sep, Stage 3a chronic [...] use, the patient reduces the risk for KS, CVA, HTN, cardiac dysrhythmias and sudden cardiac [...] block (ICD-10 - I44.2) s/p PM insertion. [employer] Other 11-03-2023 Evaluation note* Encounter Date Diagnosis [...] are maintaining regular scheduled appts with their superintendent distribution. No bleeding complications Sep, Stage 3a chronic [...] use, the patient reduces the risk for KS, CVA, HTN, cardiac dysrhythmias and sudden cardiac [...] block (ICD-10 - I44.2) s/p PM insertion. [employer] Other 08-03-2023 Evaluation note* Encounter Date Diagnosis [...] are maintaining regular scheduled appts with their superintendent distribution. No bleeding complications Jun, Stage 3a chronic [...] use, the patient reduces the risk for KS, CVA, HTN, cardiac dysrhythmias and sudden cardiac [...] severe symptoms Aware will increase BS temporarily [employer] Other 08-03-2023 Evaluation note* Encounter Date Diagnosis [...] are maintaining regular scheduled appts with their superintendent distribution. No bleeding complications Jun, Stage 3a chronic [...] use, the patient reduces the risk for KS, CVA, HTN, cardiac dysrhythmias and sudden cardiac deaths.The patient is also aware of the association between QUETA and morning headaches, daytime somnolence, fatigue and obesity Noncompliant Jun, Acute allergic rhinitis due to pollen (ICD-10 - J30.1) Flonase and Yumiko during exacerbation of allergic symptoms. Kenalog injection for severe symptoms Aware will increase BS temporarily [employer] Other 07-18-2023 Evaluation note* Encounter Date Diagnosis Assessment Notes Treatment Notes Treatment Clinical Notes May, Type 2 diabetes mellitus with hyperglycemia, without long-term current use of insulin (ICD-10 - E11.65) [employer] Other 07-05-2023 Evaluation note* Encounter Date Diagnosis Assessment Notes Treatment Notes Treatment Clinical Notes May, Type 2 diabetes mellitus with hyperglycemia, without long-term current use of insulin (ICD-10 - E11.65) [employer] Other 07-03-2023 Evaluation note* Encounter Date Diagnosis Assessment Notes Treatment Notes Treatment Clinical Notes May, Vitamin D deficiency (ICD-10 - E55.9) [employer] Other 06-25-2023 History and physical note Author Stalin Miranda [facility] May 14, 2023 11:31pm Note Date/Time May 14, 2023 10:1 7pm [facility] [address] [place], [place] [id number] Hospitalist H&P Signed Patient: Nirmal Chaidez MR#: [id number] : 1945 Acct:[id number] Age/Sex: 77 / M Adm Date: 3 Loc: Room: [address] [place] [address] Type: ADM IN Attending Dr: Stalin Miranda [...] 3 weeks ago and was admitted to [facility] for 1 week and subsequently went [...] some CHRISTIE, with BUN/creatinine of 38/1.7 from 131.13 in August 2022. Lab work otherwise within [...] that which is noted above in HPI [facility] Medical History A-fib COPD (chronic obstructive pulmonary [...] % (Auto) 15.6 % (.) 05/14/23 19:49 Cherokee % (Auto) 4.0 % (.) 05/14/23 19:49 Eos % (Auto) 1.7 % (.) 05/14/23 19:49 Baso % (Auto) 0.5 % (.) 05/14/23 19:49 Nucleat RBC Rel Count 0.1 /100 WBC (0-0.5) 05/14/23 19:49 Neut # (Auto) 8.2 x10E3/uL (1.8-7.7) H 05/14/23 19:49 Lymph # (Auto) 1.6 x10E3/uL (1.00-4.8) 05/14/23 19:49 Cherokee # (Auto) 0.4 x10E3/uL (0.0-0.8) 05/14/23 19:49 [...] signed by Stalin Miranda MD> 05/14/23 [address] [facility] Work Phone: 1(461) 502-304906-22-2023 Evaluation note* Encounter Date Diagnosis Assessment Notes [...] are maintaining regular scheduled appts with their superintendent distribution. No bleeding complications Apr, Type 2 diabetes [...] use, the patient reduces the risk for KS, CVA, HTN, cardiac dysrhythmias and sudden cardiac deaths.The patient is also aware of the association between QUETA and morning headaches, daytime somnolence, fatigue and obesity, which also has been improved with continued use.The patient is compliant with treatment, wearing the equipment every night for greater than 4 hours.The patient is instructed to continue use of the CPAP for QUETA treatment. [facility] Other 04-19-2023 Evaluation note* Encounter Date Diagnosis Assessment Notes Treatment Notes Treatment Clinical Notes Feb, Cardiac pacemaker in situ (ICD-10 - Z95.0) [employer] Other 04-04-2023 Evaluation note* Encounter Date Diagnosis [...] are maintaining regular scheduled appts with their superintendent distribution. Feb, Primary hypertension (ICD-10 - I10) This [...] use, the patient reduces the risk for KS, CVA, HTN, cardiac dysrhythmias and sudden cardiac [...] NESS (generalized anxiety disorder) (ICD-10 - F41.1) [facility] [employer] Other 04-04-2023 Evaluation note* Encounter Date Diagnosis Assessment Notes Treatment Notes Treatment Clinical Notes Feb, Type 2 diabetes mellitus with hyperglycemia, without long-term current use of insulin (ICD-10 - E11.65) [employer] Other Discharge summary Author Milo Cameron [facility] July 03, 2022 4:59pm Note Date/Time July 03, 2022 4: 59pm [facility] [address] [place] [address] Discharge Summary Signed Patient: Nirmal Chaidez MR#: [id number] : 1945 Acct:[id number] Age/Sex: 76 / M Adm Date: 2 Loc: Room: [address] [place] [address]: Lalito Silva MD Copies to: Modesto Chavarria,DO Milo Cameron MD, [facility] Lalito Silva MD~ Providers Date of Discharge: 07/03/22 Discharging Provider: Milo Cameron Primary Care Provider: Modesto Chavarria Discharge Diagnosis Final Diagnosis Final Discharge Diagnosis: Syncope Permanent atrial fibrillation Bradycardia Status post successful pacemaker insertion Summary Hospital Course Hospital course: Patient was transferred from [facility] to have a permanent pacemaker placed due to syncope caused by bradycardia. He underwent successful placement of ventricular pacemaker by Dr. Silva with no complications. Pacemaker check the following day by the rep from the [facility] showed normal pacemaker function. Chest x-ray revealed [...] with nurse for incision check in the [facility] on 07/09/2022 at 9:30am. 2. Chest x-ray to be done the same day as your device check in [facility]. 3. Pacemaker/ICD clinic appointment at [facility] in 15 weeks- they will call you. 4. Office visit with Dr. Silva in the [place] [facility] in 15 weeks- we will call [...] DIRECTED Label Comments: Take as directed by [facility] allopurinol 300 mg Tablet 300 mg PO DAILY hydrocodone-acetaminophen 5-325 mg tablet 1 - 2 tab PO Q4-6H PRN (Reason: pain) 3 Days Qty: 14 0RF Documented By: Milo Cameron MD, [facility] 2 1655 Signed By: <Electronically signed by MD PATRICK Cameron> 07/03/229 [facility] Work Phone: Discharge summary Author Stalin Miranda [facility] June 22, 2024 1:02pm Note Date/Time June 22, 2024 12: 57pm [facility] [address] [place] [address] Discharge Summary Signed Patient: Nirmal Chaidez MR#: [id number] : 1945 Acct:[id number] Age/Sex: 78 / M Adm Date: 4 Loc: Room: [address] [place] [address]: Stalin Miranda MD Copies to: [...] Consult to Cardiology Routine Comment: Consulting Provider: [facility], [facility] Reason For Exam: Pre-syncope, TWI on [...] amlodipine, torsemide. Physical and occupational therapy recommended long term for rehab prior to patient going home. Patient and his are agreeable to short stay at SNF to work on strengthening. Patient was discharged to [facility] for further PT/OT needs. He was discharged in stable condition. 35 minutes spent coordinating the discharge of this patient Time Spent with Patient Time spent providing/coordinating discharge services (# min): 35 Discharge Plan Discharge Plan Patient Disposition: [facility] Facility Activity: No Activity Restriction Diet: Low-Sodium [...] Ultra-Fine Cindy Pen Needle] 32 gauge x /32 needle See Rx Instructions miscellaneous .COMPLEX 30 [...] % (Auto) 73.9, Lymph % (Auto) 17.0, Cherokee % (Auto) 6.4, Eos % (Auto) 2.0, Baso % (Auto) 0.7, Nucleat RBC Rel Count 0.1, Neut # (Auto) 7.7, Lymph # (Auto) 1.8, Cherokee # (Auto) 0.7, Eos # (Auto) 0.2, [...] signed by Stalin Miranda MD> 06/22/24 [facility]2 [facility] Work Phone: Evaluation noteNo assessment information available [facility] Work Phone: Evaluation noteNo InformationNort [employer] Other Evaluation note* Diagnosis Onset Date Resolution Status Acute head injury acute Fall acute Syncope acute [facility] Work Phone: Evaluation note* Diagnosis Pacemaker- Primary Cardiac pacemaker in situ Permanent atrial fibrillation (CMS/HCC) Atrial fibrillation Mixed hyperlipidemia Essential hypertension, benign Complete heart block (CMS/HCC) Atrioventricular block, complete 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 [facility] Work Phone: Evaluation note* Diagnosis Onset Date Resolution Status Atrial fibrillation acute Chronic kidney disease acute High cholesterol acute Hypertension acute Major depression acute QUETA (obstructive sleep apnea) acute Type 2 diabetes mellitus with hyperglycemia acute [facility] Work Phone: evaluation note* Diagnosis 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- Primary Pacemaker Cardiac pacemaker in situ Permanent atrial fibrillation (Multi) Atrial fibrillation Essential hypertension, benign Complete heart block (Multi) Atrioventricular block, complete BMI 50.0-59.9, adult (Multi) SOB (shortness of breath) on exertion Shortness of breath Mixed hyperlipidemia [facility] Work Phone: Evaluation note* Diagnosis Onset Date Resolution Status Atrial fibrillation acute Chronic kidney disease acute High cholesterol acute Hypertension acute Major depression acute QUETA (obstructive sleep apnea) acute Type 2 diabetes mellitus with hyperglycemia acute Acute electrocardiogram changes acute Nausea & vomiting acute Viral illness acute [facility] Work Phone: Evaluation note* Diagnosis Onset Date Resolution Status Atrial fibrillation acute Chronic kidney disease acute High cholesterol acute Hypertension acute Major depression acute QUETA (obstructive sleep apnea) acute Type 2 diabetes mellitus with hyperglycemia acute Acute electrocardiogram changes acute Nausea & vomiting acute Pre-syncope acute Viral illness acute [facility] Work Phone: Evaluation note* Diagnosis Onset Date Resolution Status Pre-syncope acute Acute electrocardiogram changes resolved Nausea & vomiting resolved Viral illness resolved [facility] Work Phone: Evaluation note* Diagnosis Permanent atrial fibrillation (Multi)- Primary Atrial fibrillation SOB (shortness of breath) on exertion Shortness of breath Complete heart block Atrioventricular block, complete Pacemaker Cardiac pacemaker in situ Mixed hyperlipidemia Essential hypertension, benign 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 QUETA (obstructive sleep apnea) Obstructive sleep apnea (adult) (pediatric) BMI 50.0-59.9, adult (Multi) Former smoker Personal history of tobacco use, presenting hazards to health documented in this encounter [facility] Work Phone: History general Narrative - Reported* Type Description Date Medical History Diabetes Medical History Hypertension Medical History High Cholesterol Surgical History lithrotripsy Surgical History heart stent 2017 Surgical History bilateral knee replacement Surgical History cartioversion 2018 Surgical History kidney stone blasted 2018 Hospitalization History kidney stones and septic 2017 Hospitalization History see above [employer] Other History general Narrative - Reported* Type Description Date Medical History Diabetes Medical History Hypertension Medical History High Cholesterol Medical History QUETA Surgical History lithrotripsy Surgical History heart stent 2017 Surgical History bilateral knee replacement Surgical History cartioversion 2018 Surgical History kidney stone blasted 2018 Hospitalization History kidney stones and septic 2017 Hospitalization History see above [employer] Other History of Present illness Narrative* Patient [...] the above we will proceed as noted. -[facility]Krystin 250 DO Work Phone: History of Present illness [...] diet and weight loss were discussed in detail.[facility] [place] 250 DO Work Phone: History of Present illness [...] all the above we recommend no change. [facility] 250 DO Work Phone: Hospital Discharge instructions Additional [...] with nurse for incision check in the [facility] Office on 07/09/2022 at 9:30am. 2. Chest x-ray to be done the same day as your device check in [facility]. 3. Pacemaker/ICD clinic appointment at [facility] in 15 weeks- they will call you. 4. Office visit with Dr. Silva in the [place] [facility] in 15 weeks- we will call you with appointment. [][facility] Work Phone: Hospital Discharge instructions Additional Instructions Keep your laceration clean with soap and water daily. Apply antibiotic ointment once daily. Follow-up with PCP for suture removal in 7 days.[facility] Work Phone: Hospital Discharge [...] precautions Care to be managed by [facility] Work Phone: Reason for referral (narrative)* Consultation (Routine) - Authorized Specialty Diagnoses / Procedures Referred By Contac t Referred To Contact Cardiology Diagnoses Pacemaker Permanent atrial fibrillation (CMS/HCC) Essential hypertension, benign Complete heart block (CMS/HCC) Procedures Follow Up In Cardiology Lalito Silva MD [address] [place] [address] Lalito Silva MD [address] [place] [address] Referral ID Status Reason Start Date Expiration Date V isits Requested Visits Authorized [id number] Authorized 10/07/2023 10/06/2024 1 1 [facility] Work Phone: Reason for referral (narrative)* Consultation (Routine) - Authorized Specialty Diagnoses / Procedures Referred By Contac t Referred To Contact Cardiology Diagnoses Permanent atrial fibrillation (Multi) Procedures Follow Up In Cardiology Lalito Silva MD [address] [facility] [address], [address] [place] [address] Michael Mullen MD [address] [facility] [address] [place] [address] Referral ID Status Reason Start Date Expiration Date V isits Requested Visits Authorized [id number] Authorized 04/23/2024 04/23/2025 1 1 [facility] Work Phone: Summary Purpose Family History [...] July 8:25am Chief Complaint Order sent to [facility] for testing due in JanuaryNIRMAL CHAIDEZ is being seen for a 6 [...] vomiting Pre-syncope Viral illness Chief Complaint Fall Group Home Visit nusrsing home visit Amb Documentation alf follow up/flu shot Reason for Visit Pre-syncope Acute electrocardiogram changes Nausea & vomiting Viral illness Additional Source Comments (unrecognized sect ion and content) No Status Records FoundNo Status Records FoundNo Status Records FoundNo Status Records FoundNo Status Records FoundNo Status Records FoundNo Status Records FoundNo Status Records Found INFORMATION SOURCE (unrecogn ized section and content) DATE CREATED AUTHOR 05/17/2018 [facility] DATE CREATED AUTHOR AUTHOR'S ORGANIZ ATION 05/08/2019 [employer] DATE CREATED AUTHOR AUTHOR'S ORGANIZ ATION 06/16/2022 [employer] DATE CREATED AUTHOR AUTHOR'S ORGANIZ ATION 04/29/2023 [facility] DATE CREATED AUTHOR AUTHOR'S ORGANIZ ATION 05/19/2023 [facility] DATE CREATED AUTHOR AUTHOR'S ORGANIZ ATION 09/30/2024 [facility] DATE CREATED AUTHOR AUTHOR'S ORGANIZ ATION 10/06/2024 [facility] DATE CREATED AUTHOR AUTHOR'S ORGANIZ ATION 12/03/2024 [facility] Care Teams (unrecognized sec tion and content) Team Status: Active Member Role Status Dates Modesto Chavarria DO Primary Care Provider Active Team Status: Inactive Member Role Status Dates Modesto Chavarria DO Primary Care Provide r, Attending Provider Active Start: March 26, 2024 End: March 26, 2024 Team Status: Active Member Role Status Dates Modesto Chavarria DO Primary Care Provider Active Ran Addison DO Emergency Provider Active Stalin Miranda MD Admit Provider, Attending Fatoumata hopkins Active Team Status: Inactive Member Role Status Dates Modesto Chavarria DO Primary Care Provider Active Lalito Silva MD Admit Provider, Attending Provider Active Team Status: Inactive Member Role Status Dates Modesto Chavarria DO Primary Care Provider Active Domencio Betnacourt DO Emergency Provider Active Miller First Relationship Specialty Start Date End Date Modesto Chavarria DO [address] [place] [id number] PCP - General 11/21/99 Miller First Relationship Specialty Start Date End Date Modesto Chavarria DO PCP - General 11/21/99 Team Status: Inactive Member Role Status Dates Modesto Chavarria DO Primary Care Provider Active Start: April 23, 2024 End: April 23, 2024 [facility] Attending Provider Active Start: April 23, 2024 End: April 23, 2024 Lalito Silva MD Other Provider Active Start: April 23, 2024 End: April 23, 2024 Team Status: Active Member Role Status Dates Modesto Chavarria DO Primary Care Provider Active Start: June 18, 2024 Domenico Betancourt DO Emergency Provider Active Start: June 18, 2024 [...] Status: Active Member Role Status Dates Modesto Aura DO Primary Care Provide r, Attending Provider [...] August 14, 2024 End: August 14, 2024 Miller First Relationship Specialty Start Date End Date Modesto Chavarria DO PCP - General 11/21/99 REASON FOR VISIT (unrecogniz ed section and content) Reason Comments Follow-up 6m Reason Comments Follow-up 6m fu Specialty Diagnoses / Procedures Referred By Contac t Referred To Contact Cardiology Diagnoses Pacemaker Permanent atrial fibrillation (Multi) Essential hypertension, benign Complete heart block (Multi) Procedures Follow Up In Cardiology Lalito Silva MD [address] [place] [address] Lalito Silva MD [address] [place] [address] Referral ID Status Reason Start Date Expiration Date V isits Requested Visits Authorized [id number] Authorized 10/07/2023 10/06/2024 1 1 Reason Comments Follow-up 6 m Specialty Diagnoses / Procedures Referred By Contac t Referred To Contact Cardiology Diagnoses Permanent atrial fibrillation (Multi) Procedures Follow Up In Cardiology Lalito Silva MD Traboulssi, Mourhaf, MD [address] [place] [address] Phone: tel: fax: Referral ID Status Reason Start Date Expiration Date V isits Requested Visits Authorized [id number] Authorized 04/23/2024 04/23/2025 1 1 Goals (unrecognized section and content) [...] BE BASED ON THE PRIMARY CLINICAL RECORDS. [facility] [employer] [facility]. provides no warranty or guarantee of the accuracy or completeness of information in this document.
[2025-01-30 11:55] LABS: Basophils Absolute Auto 0.1 10^3/uL (0.0-0.1); Basophils Percent Auto 0.7 % (0.2-2.0); Eosinophils Absolute Auto 0.2 10^3/uL (0.0-0.7); Eosinophils Percent Auto 1.5 % (0.9-7.0); Hematocrit 49.7 % (42.0-54.0); Hemoglobin 15.6 g/dL (14.0-18.0); Immature Granulocytes Abs Auto 0.05 10^3/uL (0.00-0.03); Immature Granulocytes Pct Auto 0.4 % (0.0-0.5); Lymphocytes Absolute Auto 2.1 10^3/uL (1.2-3.8); Lymphocytes Percent Auto 18.6 % (20.5-60.0); Mean Corpuscular HGB Conc 31.4 g/dL (29.9-35.2); Mean Corpuscular Hemoglobin 28.6 pg (25.9-34.0); Mean Platelet Volume 9.8 fL (9.5-13.5); Monocytes Absolute Auto 0.7 10^3/uL (0.3-0.8); Monocytes Percent Auto 5.8 % (1.7-12.0); Neutrophils Absolute Auto 8.4 10^3/uL (1.4-6.5); Platelet Count 243 10^3/uL (150-450); Red Blood Count 5.46 10^6/uL (4.70-6.10); Red Cell Distribution Width 15.9 % (11.0-15.0); White Blood Count 11.5 10^3/uL (4.0-11.0)
[2025-01-30 12:05] LABS: Creatinine Urine Random 34.18 mg/dL (20.00-300.00); Microalbumin Urine Random <1.3 mg/dL (<=30.0)
[2025-01-30 12:07] LABS: Estimated Average Glucose 134 mg/dL; Glycohemoglobin A1C 6.3 % (4.5-6.2)
[2025-01-30 12:17] LABS: Alanine Aminotransferase 9 U/L (16-63); Albumin Globulin Ratio 0.8; Albumin Level 3.4 g/dL (3.4-5.0); Alkaline Phosphatase 101 U/L (46-116); Anion Gap 12.2; Aspartate Amino Transferase 11 U/L (15-37); BUN Creatinine Ratio 17.5; Bilirubin Total 0.5 mg/dL (0.2-1.0); Chloride 100 mmol/L (98-107); Chol HDL Ratio 2.6; Cholesterol 119 mg/dL (<=200); Estimated GFR (African America >60 (>=60 mL/min/1.73m^2); Estimated GFR (Non-African Ame 50 (>=60 mL/min/1.73m^2); Globulin 4.4 g/dL; Glucose 127 mg/dL (74-106); HDL Cholesterol 46 mg/dL (40-60); LDL Cholesterol Calculated 57.4 mg/dL; Potassium 4.2 mmol/L (3.5-5.1); Sodium 138 mmol/L (136-145); Total Protein 7.8 g/dL (6.4-8.2); Triglycerides 78 mg/dL (<=150); VLDL CHOLESTEROL 15.6 mg/dL
[2025-01-30 12:26] LABS: Prostate Specific Antigen Scrn 1.56 ng/mL (<=4.00)
== END 2025-01-30 11:17 | disposition home or self-care (01) ==
LOC: LAB 11:17
PROVIDERS: PCP Internal Medicine; Visit Provider Internal Medicine
DX: E11.65 Type 2 diabetes mellitus with hyperglycemia (principal); I25.10 Atherosclerotic heart disease of native coronary artery without angina pectoris; N18.32 Chronic kidney disease, stage 3b; E78.00 Pure hypercholesterolemia, unspecified; Z12.5 Encounter for screening for malignant neoplasm of prostate; I12.9 Hypertensive chronic kidney disease with stage 1 through stage 4 chronic kidney disease, or unspecified chronic kidney disease
CPT/HCPCS: 36415; 80053; 80061; 82043; 82570; 83036; 85025; G0103

== ENCOUNTER 2025-02-19 05:34 | Outpatient (RCR) | payer MEDICARE, OTHER, SELFPAY | END 2025-03-20 15:58 | disposition home or self-care (01) | LOC: MM 05:34 | PROVIDERS: PCP Internal Medicine; Visit Provider Internal Medicine | DX: Z51.81 Encounter for therapeutic drug level monitoring (principal); Z79.01 Long term (current) use of anticoagulants ==

== ENCOUNTER 2025-03-21 04:38 | Outpatient (RCR) | payer MEDICARE, OTHER, SELFPAY | END 2025-04-19 15:21 | disposition home or self-care (01) | LOC: MM 04:38 | PROVIDERS: PCP Internal Medicine; Visit Provider Internal Medicine | DX: Z51.81 Encounter for therapeutic drug level monitoring (principal); Z79.01 Long term (current) use of anticoagulants ==

== ENCOUNTER 2025-04-03 14:27 | Outpatient (OUT) | payer MEDICARE, OTHER, SELFPAY ==
--- NOTE | 2025-04-03 14:42 | PM.WCHP ---
Wound Care H&P: HPI History of Present Illness Narrative: Mr. Merrill is a 79 year ld gentleman with history of type 2 diabetes who presents for routine nail care. He thinks his left great toenail is ingrown but otherwise has no complaints in regards to his feet. His last A1C was 6.7. [facility] Medical History (Updated 04/03/25 @ 14:55 by KEN Anderson) Coronary arteriosclerosis ?I25.10 - Atherosclerotic heart disease of [place] coronary artery without angina pectoris (ICD-10) Surgical History (Updated 04/24/23 @ 13:03 by Anatoly Klein MD) History of heart artery stent ?Z95.5 - Presence of coronary angioplasty implant and graft (ICD-10) Family History (Updated 04/23/23 @ 23:26 by Joyce Guan) Father Family history of cancer Social History (Updated 04/23/23 @ 23:28 by Joyce Guan) Within the past year, how often did you have a drink containing alcohol: 4 or more times a week Within the past year, how many standard drinks containing alcohol did you have on a typical day: 1 or 2 Within the past year, how often did you have six or more drinks on one occasion: never Total score: 0 Score interpretation: Questions 2 and 3 are 0. It can be assumed that the patient's drinking is below the recommended limits. However, please confirm the accuracy of the patient's alcohol intake over the last few months. Smoking status: Former smoker Second hand tobacco smoke exposure: No Non-prescribed substance use: denies use Are you now , , , , never or living with a partner: Meds Home Medications and Allergies Home Medications ?Medication ?Instructions ?Recorded ?Confirmed ?Type allopurinol 300 mg tablet 300 mg PO DAILY 04/23/23 04/23/23 History citalopram 20 mg tablet 20 mg PO BEDTIME 04/23/23 04/24/23 History lisinopril 20 2 tab PO DAILY 04/23/23 04/23/23 History mg-hydrochlorothiazide 12.5 mg tablet metformin 500 mg tablet 500 mg PO DAILY 04/23/23 04/23/23 History potassium bicarbonate-citric acid 25 meq PO BID 04/23/23 04/23/23 History 20 mEq effervescent tablet (Effer-K) pravastatin 40 mg tablet 40 mg PO BEDTIME 04/23/23 04/23/23 History torsemide 10 mg tablet 10 mg PO DAILY 04/23/23 04/23/23 History warfarin 4 mg tablet 4 mg PO DAILY 04/23/23 04/23/23 History acetaminophen 500 mg tablet 1,000 mg (2 x 500 mg) PO Q6H PRN 04/28/23 Rx (Tylenol Extra Strength) Pain Scale 1-3 #100 tabs ipratropium 0.5 mg-albuterol 3 mg 3 ml inhalation Q6H #180 mL 04/28/23 Rx (2.5 mg base)/3 mL nebulization soln lidocaine 5 % topical patch 1 patch topical QDAY #30 ea 04/28/23 Rx tramadol 50 mg tablet 50 mg PO QID PRN pain #120 tabs 04/28/23 Rx Allergies Allergy/AdvReac Type Severity Reaction Status Date / Time Penicillins Allergy Severe Hives Verified 04/23/23 16:05 Exam Narrative: Exam Narrative: Derm: skin is diffusely dry, thin, and shiny. Hemosiderin staining present on the lower legs. Toenails 1-10 are elongated, thickened, and mycotic. Left toenail is ingrown at the medial nail border without paronychia. Vasc: DP and PT pulses are nonpalpable bilaterally. Feet are appropriately warm with cap refill <3 sec bilaterally. Neuro: Right Achilles DTR 1+, left DTR absent. Right vibratory sensation present but decreased, left vibratory sensation absent. Monofilament testing revealed normal sensation in 5/5 areas tested bilaterally. MSK: flatfoot deformity bilaterally. No pain with palpation Assessment and Plan Assessment and Plan (1) Tinea unguium: (2) Type 2 diabetes mellitus with diabetic chronic kidney disease: (3) Diminished pulses in lower extremity: (4) Disorder of nail due to another disorder: Plan Routine nail care performed. Follow-up in 3 months. Acute Procedures Podiatry Nail Debridement Class B Findings Absent posterior tibial pulse: bilateral Advanced trophic changes as evidenced by any three of the following: decreased hair growth, nail changes (thickening), pigmentary changes (discoloring) and skin texture (thin or shiny) Absent dorsalis pedis pulse: bilateral Class C Findings Claudication: No Temperature changes: No Edema: Yes Nail debridement paresthesia (abnormal spontaneous sensations in the feet): No Burning: No Qualifies If: Qualifiers If:: A patient qualifies for nail debridement if they have: 1 class A finding (Q7) 2 class B findings (Q8) OR 1 class B & 2 class C findings in addition to a primary condition (Q9) Nail Procedure Nail Procedure Time out: Yes Nail procedure: other (Toenail debridement) Number of affected nails: 10 Location (toes): left and right Procedure successful: Yes Patient tolerated procedure: well and no complications Additional comments: Toenails 1 through 10 were sharply debrided with nail nippers without incident. The left hallux medial nail border was trimmed in a slant back fashion to relieve the patient of an ingrown toenail. No purulence or evidence of infection was encountered.
== END 2025-04-03 14:28 | disposition home or self-care (01) ==
LOC: WC 14:27
PROVIDERS: PCP Internal Medicine; Visit Provider Physician Assistant
DX: B35.1 Tinea unguium (principal); L60.8 Other nail disorders; E11.22 Type 2 diabetes mellitus with diabetic chronic kidney disease
CPT/HCPCS: 11721

== ENCOUNTER 2025-04-21 07:24 | Outpatient (RCR) | payer MEDICARE, OTHER, SELFPAY | END 2025-05-16 14:27 | disposition home or self-care (01) | LOC: MM 07:24 | PROVIDERS: PCP Internal Medicine; Visit Provider Internal Medicine | DX: Z51.81 Encounter for therapeutic drug level monitoring (principal); Z79.01 Long term (current) use of anticoagulants; I48.91 Unspecified atrial fibrillation ==

== ENCOUNTER 2025-05-21 02:25 | Outpatient (RCR) | payer MEDICARE, OTHER, SELFPAY | END 2025-06-20 16:48 | disposition home or self-care (01) | LOC: MM 02:25 | PROVIDERS: PCP Internal Medicine; Visit Provider Internal Medicine | DX: Z51.81 Encounter for therapeutic drug level monitoring (principal); Z79.01 Long term (current) use of anticoagulants; I48.91 Unspecified atrial fibrillation ==

== ENCOUNTER 2025-06-21 00:32 | Outpatient (RCR) | payer MEDICARE, OTHER, SELFPAY | END 2025-07-18 13:02 | disposition home or self-care (01) | LOC: MM 00:32 | PROVIDERS: PCP Internal Medicine; Visit Provider Internal Medicine | DX: Z51.81 Encounter for therapeutic drug level monitoring (principal); Z79.01 Long term (current) use of anticoagulants; I48.91 Unspecified atrial fibrillation ==

== ENCOUNTER 2025-07-22 01:47 | Outpatient (RCR) | payer MEDICARE, OTHER, SELFPAY | END 2025-08-20 15:23 | disposition home or self-care (01) | LOC: MM 01:47 | PROVIDERS: PCP Internal Medicine; Visit Provider Internal Medicine | DX: Z51.81 Encounter for therapeutic drug level monitoring (principal); Z79.01 Long term (current) use of anticoagulants; I48.91 Unspecified atrial fibrillation ==

== ENCOUNTER 2025-08-15 13:30 | Outpatient (OUT) | payer MEDICARE, OTHER, SELFPAY ==
--- OUTSIDE RECORDS SUMMARY | 2025-05-07 15:32 | XMS_ITS ---
Author Name Auto Generated Organization [facility] Care Team Providers Care Forestry Scientist Name Role Phone MICHAEL MULLEN Attending Unavailable LALITO GARCIA Referring Unavailable RUTH ANN CHAVARRIA Primary Care Unavailable MICHAEL MULLEN Attending Unavailable MICHAEL MULLEN Referring Unavailable RUTH ANN CHAVARRIA Primary Care Unavailable Carlos Alberto GIBSON Attending Unavailable Lalito Garcia Admitting Unavailable Lalito Garcia Attending Unavailable Lalito Garcia Referring Unavailable Michael Mullen Admitting Unavailable Michael Mullen Attending Unavailable Michael Mullen Referring Unavailable PROBLEMS DATE TYPE CONDITION / CODE ATTENDING STATUS [facility] 05/07/2025 Admitting Diagnosis Body mass index (BMI) 45.0-49.9, adult (Multi) / Z68.42(ICD-10) [facility] 10/25/2024 Admitting Diagnosis Personal history of nicotine dependence / Z87.891(ICD-10) [facility] 10/25/2024 Admitting Diagnosis Obstructive sleep apnea (adult) (pediatric) / G47.33(ICD-10) [facility] 04/23/2024 Admitting Diagnosis Body mass index (BMI) 50.0-59.9, adult (Multi) / Z68.43(ICD-10) [facility] 10/06/2023 Admitting Diagnosis Shortness of breath / R06.02(ICD-10) [facility] 10/06/2023 Admitting Diagnosis Permanent atrial fibrillation (Multi) / I48.21(ICD-10) [facility] 10/06/2023 Admitting Diagnosis Atrioventricular block, 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(ICD-10) [facility] 10/06/2023 Admitting Diagnosis Presence of cardiac pacemaker / Z95.0(ICD-10) [facility] 10/06/2023 Admitting Diagnosis Mixed hyperlipidemia / E78.2(ICD-10) [facility] 10/06/2023 Admitting Diagnosis Essential (primary) hypertension / I10(ICD-10) [facility] 10/06/2023 Admitting Diagnosis 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 Your Care Team Attending Physician - Carlos Alberto GIBSON MD Primary Care Physician - RUTH ANN CHAVARRIA DO This Is Your Medications List [...] Alberto GIBSON MD Where: [facility] [address] [place] [address] [place] [address]- You Need to Schedule the Following Appointments Follow Up with Carlos Alberto GIBSON MD, URL When: Where: [address] [place] [id number]- Medications What How Much When Instructions Unchanged [...] nerve stimulation). ? For women, using a emergency medical technician basic to prevent urine leaks. This is a [...] creams and cleansers that can protect the skin from urine. ? Consider wearing pads or adult diapers. Make sure to change them regularly, and always change them right after experiencing incontinence. General instructions ? Take bcuq-ahn-befyzqw and prescription medicines only as told by your health care provider. ? Use the bathroom about every 3?4 hours, even if you do not feel the need to urinate. Try to empty your bladder completely every time. After urinating, wait a minute. Then try to urinate again. ? Make sure you are in a relaxed position while urinating. ? If your incontinence is caused by nerve problems, keep a log of the medicines you take and the times you go to the bathroom. ? Keep all follow-up visits. This is important. Where to find more information ? National [place] of Diabetes and Digestive and Kidney Diseases: www.niddk.nih.gov ? [place] [employer]: www.urologyhealth.org Contact a health care provider if: ? You have pain that gets worse. ? Your incontinence gets worse. Get help right away if: ? You have a fever or chills. ? You are unable to urinate. ? You have redness in your groin area or down your legs. Summary ? Urinary incontinence refers to a condition in which a person is unable to control where and when to pass urine. ? This condition may be caused by medicines, infection, weak bladder muscles, weak pelvic floor muscles, enlargement of the prostate (in men), or surgery. ? Factors such as older age, obesity, and childbirth, menopause, neurological diseases, and chronic coughing may increase your risk for developing this condition. ? Types of urinary incontinence include urge incontinence, stress incontinence, overflow incontinence, and functional incontinence. ? This condition is usually treated first with lifestyle and behavioral changes, such as quitting smoking, eating a healthier diet, and doing regular pelvic floor exercises. Other treatment options include medicines, bulking agents, medical devices, electrical nerve stimulation, or surgery. This information is not intended to replace advice given to you by your health care provider. Make sure you discuss any questions you have with your health care provider. Document Revised: 06/12/2021 Document Reviewed: 06/12/2021 [employer] Patient Education ? 2023 [employer]. UROLOGY OFFICE/CLINIC NOTE Observed: 02/2024 11:53 AM Status: F Source: [facility] Urology Office/Clinic Note Chief Complaint BPH with [...] in the kidneys or ureters. [place] [facility] [place] of a tiny calcification overlying [...] Contact Information ARTHUR OCONNELL, Carlos Alberto Bunn, [address] [address]- Additional Instructions: 1 year w/ KUB Patient [...] 1000 mcg= 1 tab(s), Oral, Daily Effer-K 20 mEq oral tablet, effervescent, 20 mEq= 1 tab(s), Oral, BID, 11 refills, Not taking: Pt has not been taking for 2 months now nitroglycerin 0.4 mg sublingual Tab, 0.4 mg= 1 tab(s), SubLingual, q5min, PRN pravastatin 40 mg Tab, 40 mg= 1 tab(s), Oral, Daily torsemide 10 mg Tab, Oral, Daily Vitamin B12 Vitamin D3, 250 mcg warfarin, 4 mg, Oral, MonTuWeFr Allergies Dust (unknown) Pollen (unknown) penicillin (RASH) Social History Alcohol - Denies Alcohol Use, 11/09/2019 Substance Abuse - Denies Substance Abuse, 11/09/2019 Tobacco - Denies Tobacco Use, 11/09/2019 Former smoker, quit more than 30 days ago Tobacco Use:. Cigarettes, Household tobacco concerns: No. Yes, 08/24/2024 Family History Diabetes mellitus type 2: Mother. Lymphoma: Father. Immunizations Vaccine Date Status Comments diphtheria/pertussis, acel/tetanus adult 08/24/2022 Recorded influenza virus vaccine, inactivated 08/22/2022 Recorded SARS-CoV-2 (COVID-19) mRNAMUL.[id number] 08/22/2022 Recorded SARS-CoV-2 (COVID-19) mRNA BNT-162b2 vax 08/26/2021 Recorded 2022-12-06: TPV75 influenza virus vaccine, inactivated 08/07/2021 Recorded SARS-CoV-2 (COVID-19) mRNA BNT-162b2 vax 01/12/2021 Recorded 2022-12-06: TPV70 SARS-CoV-2 (COVID-19) mRNA BNT-162b2 vax 12/22/2020 Recorded 2022-12-06: TPV70 SARS-CoV-2 (COVID-19) mRNA-1273 vaccine 2020 Recorded influenza virus vaccine, inactivated 07/22/2020 Recorded influenza virus vaccine, inactivated 08/10/2018 Recorded influenza virus vaccine, inactivated 08/09/2017 Recorded Lab Results Ambulatory Point of Care Results Bilirubin Urine Dipstick: Negative (08/24/24 11:02:00) Blood Urine Dipstick: Negative (08/24/24 11:02:00) Glucose Urine Dipstick: Negative (08/24/24 11:02:00) Ketones Urine Dipstick: Negative (08/24/24 11:02:00) Leukocytes Urine Dipstick: Negative (08/24/24 11:02:00) Nitrite Urine Dipstick: Negative (08/24/24 11:02:00) Protein Urine Dipstick: 1+ (30 mg/dl) (08/24/24 11:02:00) Specific [place] Urine Dipstick: 1.020 (08/24/24 11:02:00) Urine Appearance Urine Dipstick: Clear (08/24/24 11:02:00) Urine Color Urine Dipstick: Yellow (08/24/24 11:02:00) Urobilinogen Urine Dipstick: Normal 0.2-1 EU/dl (08/24/24 11:02:00) pH Urine Dipstick: 7 (08/24/24 11:02:00) Result Comment: Electronical ly Signed By: Carlos Alberto GIBSON MD.ion\Date and Time Signed: 08/24/24 11:59 EDT\.br\Electronically Co-Signed By: Xochilt Vale\Date and Time Co-Signed: 08/24/24 11:54 EDT PATIENT EDUCATION Observed: 08/24/2024 11:53 AM Status: C Source: [facility] Patient Education Urology Urinary Incontinence Urinary incontinence [...] nerve stimulation). ? For women, using a emergency medical technician basic to prevent urine leaks. This is a [...] creams and cleansers that can protect the skin from urine. ? Consider wearing pads or adult diapers. Make sure to change them regularly, and always change them right after experiencing incontinence. General instructions ? Take cjvt-xva-utkfmrn and prescription medicines only as told by your health care provider. ? Use the bathroom about every 3?4 hours, even if you do not feel the need to urinate. Try to empty your bladder completely every time. After urinating, wait a minute. Then try to urinate again. ? Make sure you are in a relaxed position while urinating. ? If your incontinence is caused by nerve problems, keep a log of the medicines you take and the times you go to the bathroom. ? Keep all follow-up visits. This is important. Where to find more information ? National [place] of Diabetes and Digestive and Kidney Diseases: www.niddk.nih.gov ? [place] [employer]: www.urologyhealth.org Contact a health care provider if: ? You have pain that gets worse. ? Your incontinence gets worse. Get help right away if: ? You have a fever or chills. ? You are unable to urinate. ? You have redness in your groin area or down your legs. Summary ? Urinary incontinence refers to a condition in which a person is unable to control where and when to pass urine. ? This condition may be caused by medicines, infection, weak bladder muscles, weak pelvic floor muscles, enlargement of the prostate (in men), or surgery. ? Factors such as older age, obesity, and childbirth, menopause, neurological diseases, and chronic coughing may increase your risk for developing this condition. ? Types of urinary incontinence include urge incontinence, stress incontinence, overflow incontinence, and functional incontinence. ? This condition is usually treated first with lifestyle and behavioral changes, such as quitting smoking, eating a healthier diet, and doing regular pelvic floor exercises. Other treatment options include medicines, bulking agents, medical devices, electrical nerve stimulation, or surgery. This information is not intended to replace advice given to you by your health care provider. Make sure you discuss any questions you have with your health care provider. Document Revised: 06/12/2021 Document Reviewed: 06/12/2021 [employer] Patient Education ? 2023 [employer] ALLERGIES DATE TYPE / CODE NAME / CODE REACTION SEVERITY SOURCE 10/06/2023 Drug Class/437028888(S NOMED CT) PENICILLINS Hives~Unknown [facility] Ambulatory DR/829173032(SNOM ED CT) penicillin Rash [facility] EN/622776648(SN ED CT) Dust Unknown [facility] EN/838675874(SN ED CT) Pollen Unknown [facility] ENCOUNTERS ADMIT/DISCHARGE ACCOUNT NUMBER ADMITTING ENCOUNTER CLASS LOCATION SOURCE 05/07/2025/05/07/20 [id number] Ambulatory Building:[address] 04/18/2025/04/18/20 [id number] Michael Mullen Ambulatory FTBuilding :FT CAR [facility] 10/25/2024/10/25/20 24 [id number] Ambulatory Building:[address] 09/27/2024/09/27/20 24 [id number] Lalito Garcia Ambulatory FTBuilding :FT CAR [facility] 08/24/2024/08/24/20 24 [id number] [facility] [place] Exam 3 [facility] PAYERS ENCOUNTER GUARANTOR PAYER SUBSCRIBER SOURCE 05/07/2025 NIRMAL TORREZOB: [place], [place] [address]Tdr: () Primary Insurance:MEDICAREPolic y Number: [id number] Date:2008-02-20 NIRMAL ALMAZANONDOB: [id number] [place], [place] [address]Arm: () [facility] 05/07/2025 Secondary Insurance:[facility] MEDICARE SUPPLEMENTPolicy Number: [id number] Date:2021-11-21 NIRMAL TORREZOB: [id number] [place], [place] [address]Bks: () [facility] 04/18/2025 NIRMAL TORREZOB: [facility]: () Primary Insurance:MEDICAREPolic y Number: [id number] Date:[id number] [address] [address], [place] [address]TM: NIRMAL PEREZ [facility] 04/18/2025 Secondary Insurance:MEDICAL MUTUALPolicy Number: [id number] Date:2310-88-93JY [address] [place], [place] [address]WP: NIRMAL PEREZ [facility] 10/25/2024 NIRMAL MASONDOB: [place], [place] [address]Obf: () Primary Insurance:MEDICAREPolic y Number: [id number] Date:2008-02-20 NIRMAL ALMAZANONDOB: [id number] [place] [address]Pbx: () [facility] 10/25/2024 Secondary Insurance:[facility] MEDICARE SUPPLEMENTPolicy Number: [id number] Date:2021-11-21 NIRMAL ALMAZANONDOB: [id number] [place] [address]Bid: () [facility] 09/27/2024 NIRMAL ALMAZANONDOB: [facility] () Primary Insurance:MEDICAREPolic y Number: [id number] Date:1890-71-44RA [address] [address], [place] [address]EW: NIRMAL PEREZ [facility] 09/27/2024 Secondary Insurance:MEDICAL MUTUALPolicy Number: [id number] Date:9912-81-42LM [address] [place] [id number]: NIRMAL PEREZ [facility] 08/24/2024 NIRMAL TORREZOB: ZACHARY STTel: () Primary Insurance:MEDICAREPolic y Number: [id number] Date:[id number] [address], [place] [address]HD: NIRMAL Jaramillo [facility] 08/24/2024 Secondary Insurance:MEDICAL MUTUALPolicy Number: [id number] Date:4637-08-01EZ [address], [place] [address]RI: NIRMAL [facility]
--- OUTSIDE RECORDS SUMMARY | 2025-05-07 15:32 | XMS_ITS ---
Author Name Auto Generated Organization OHIP Care Team Providers Care Material Handling Crew Supervisor Name Role Phone MICHAEL MULLEN Attending Unavailable [...] DATE TYPE CONDITION / CODE ATTENDING STATUS [facility] 05/07/2025 Admitting Diagnosis Body mass index (BMI) 45.0-49.9, adult (Multi) / Z68.42(ICD-10) [facility] 10/25/2024 Admitting Diagnosis Personal history of nicotine dependence / Z87.891(ICD-10) [facility] 10/25/2024 Admitting Diagnosis Obstructive sleep apnea (adult) (pediatric) / G47.33(ICD-10) [facility] 04/23/2024 Admitting Diagnosis Body mass index (BMI) 50.0-59.9, adult (Multi) / Z68.43(ICD-10) [facility] 10/06/2023 Admitting Diagnosis Shortness of breath / R06.02(ICD-10) [facility] 10/06/2023 Admitting Diagnosis Permanent atrial fibrillation (Multi) / I48.21(ICD-10) 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 10/06/2023 Admitting Diagnosis Presence of cardiac pacemaker / Z95.0(ICD-10) [facility] 10/06/2023 Admitting Diagnosis Mixed hyperlipidemia / E78.2(ICD-10) [facility] 10/06/2023 Admitting Diagnosis Essential (primary) hypertension / I10(ICD-10) 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 PROCEDURES No Procedure Records Found RESULTS AMBULATORY VISIT SUMMARY Observed: 08/24 12:39 PM Status: F Source: [facility] Ambulatory Visit Summary NIRMAL CHAIDEZ :1945 Visit [...] Alberto GIBSON MD Where: [facility] [address] [place] [address] [place] [address]- You Need to Schedule the Following Appointments Follow Up with Carlos Alberto GIBSON MD, URL When: Where: [address] [place] [address]- Medications What How Much When Instructions Unchanged [...] nerve stimulation). ? For women, using a certified medical coding specialist to prevent urine leaks. This is a [...] after experiencing incontinence. General instructions ? Take tqmy-nph-expmhjd and prescription medicines only as told by [...] Where to find more information ? National [place] of Diabetes and Digestive and Kidney Diseases: www.niddk.nih.gov ? [place] [employer]: www.urologyhealth.org Contact a health care [...] provider. Document Revised: 06/12/2021 Document Reviewed: 06/12/2021 [employer] Patient Education ? 2023 [employer]. UROLOGY OFFICE/CLINIC NOTE Observed: 02/2024 11:53 AM Status: F Source: [facility] Urology Office/Clinic Note Chief Complaint BPH with urinary obstruction and hx of kidney stones HPI Staff 18 mos w/ KUB. Dx: BPH with obstruction, hx of kidney stones, chronic prostatitis. S/p TURP 10/01/21. *Effer-K 20mEq bid. Pt states he has not been taking this for the past 2 months. [place] [facility] [place] Dysuria: denies Incomplete bladder emptying: denies Hematuria: [...] in the kidneys or ureters. KUB 04[place]23/24 [facility] [place] question of a tiny calcification overlying [...] Contact Information ARTHUR OCONNELL, Carlos Alberto Bunn, [address] [address]- Additional Instructions: 1 year w/ KUB Patient Education Urinary Incontinence I, Xocihlt Vale, personally scribed for Dr. Gibson on [...] virus vaccine, inactivated 08/22/2022 Recorded SARS-CoV-2 (COVID-19) [id number] 08/22/2022 Recorded SARS-CoV-2 (COVID-19) mRNA BNT-162b2 vax [...] Dipstick: 1+ (30 mg/dl) (08/24/24 11:02:00) Specific [place] Urine Dipstick: 1.020 (08/24/24 11:02:00) Urine Appearance [...] Observed: 08/24/2024 11:53 AM Status: C Source: [facility] Patient Education Urology Urinary Incontinence Urinary incontinence [...] nerve stimulation). ? For women, using a certified medical coding specialist to prevent urine leaks. This is a [...] after experiencing incontinence. General instructions ? Take wwrm-muj-msmnffy and prescription medicines only as told by [...] Where to find more information ? National [place] of Diabetes and Digestive and Kidney Diseases: www.niddk.nih.gov ? [place] [employer]: www.urologyhealth.org Contact a health care [...] provider. Document Revised: 06/12/2021 Document Reviewed: 06/12/2021 [employer] Patient Education ? 2023 [employer] ALLERGIES DATE TYPE / CODE NAME / CODE REACTION SEVERITY SOURCE 10/06/2023 Drug Class/799286939(S NOMED CT) PENICILLINS Hives~Unknown [facility] Ambulatory DR/[id number](SNOM ED CT) penicillin Rash [facility] EN/009368584(SN ED CT) Dust Unknown [facility] EN/035173861(SN ED CT) Pollen Unknown [facility] ENCOUNTERS ADMIT/DISCHARGE ACCOUNT NUMBER ADMITTING ENCOUNTER CLASS LOCATION SOURCE 05/07/2025/05/07/20 [id number] Ambulatory Building:[address] 04/18/2025/04/18/20 [id number] Michael Mullen Ambulatory FTBuilding :FT CAR [facility] 10/25/2024/10/25/20 24 [id number] Ambulatory Building:[address] 09/27/2024/09/27/20 24 [id number] Lalito Garcia Ambulatory FTBuilding :FT CAR [facility] 08/24/2024/08/24/20 24 [id number] Ambulatory [place] [place] : Exam 3 [facility] PAYERS ENCOUNTER GUARANTOR PAYER SUBSCRIBER SOURCE 05/07/2025 NIRMAL TORREZOB: [place], [place] [address]Whp: () Primary Insurance:MEDICAREPolic y Number: [id number] Date:2008-02-20 NIRMAL ALMAZANONDOB: [id number] [place], [place] [address]Tbc: () [facility] 05/07/2025 Secondary Insurance:[facility] MEDICARE SUPPLEMENTPolicy Number: [id number] Date:2021-11-21 NIRMAL TORREZOB: [id number] [place], [place] [address]Riz: () [facility] 04/18/2025 NIRMAL TORREZOB: [facility]: () Primary Insurance:MEDICAREPolic y Number: [id number] Date:3555-57-17[address], [place] [address]KJ: NIRMAL PEREZ [facility] 04/18/2025 Secondary Insurance:MEDICAL MUTUALPolicy Number: [id number] Date:7246-57-13[address] [place], [place] [address]WP: NIRMAL PEREZ [facility] 10/25/2024 NIRMAL MASONDOB: [place], [place] [address]Adx: () Primary Insurance:MEDICAREPolic y Number: [id number] Date:2008-02-20 NIRMAL ALMAZANONDOB: [id number] [place] [address]Gac: () [facility] 10/25/2024 Secondary Insurance:[facility] MEDICARE SUPPLEMENTPolicy Number: [id number] Date:2021-11-21 NIRMAL ALMAZANONDOB: [id number] [place] [address]Nlq: () [facility] 09/27/2024 NIRMAL ALMAZANONDOB: [facility] () Primary Insurance:MEDICAREPolic y Number: [id number] Date:7226-80-72[address] [address], [place] [address]XE: NIRMAL PEREZ [facility] 09/27/2024 Secondary Insurance:MEDICAL MUTUALPolicy Number: [id number] Date:1354-57-54[address] [place] [address]TJ: NIRMAL PEREZ [facility] 08/24/2024 NIRMAL TORREZOB: ZACHARY STTel: () Primary Insurance:MEDICAREPolic y Number: [id number] Date:1464-50-30[address] [address], [place] [address]IG: NIRMAL Jaramillo [facility] 08/24/2024 Secondary Insurance:MEDICAL MUTUALPolicy Number: [id number] Date:4552-09-53[address], [place] [address]ZH: NIRMAL [facility]
--- NOTE | 2025-08-15 13:50 | PM.WCHP ---
Wound Care H&P: HPI History of Present Illness Narrative: Mr. Merrill is a 79 year ld gentleman with history of type 2 diabetes who presents for routine nail care. He has no complaints at this time. [facility] Medical History (Updated 04/03/25 @ 14:55 by KEN Anderson) Coronary arteriosclerosis ?I25.10 - Atherosclerotic heart disease of [place] coronary artery without angina pectoris (ICD-10) Surgical History (Updated 04/24/23 @ 13:03 by Anatoly Klein MD) History of heart artery stent ?Z95.5 - Presence of coronary angioplasty implant and graft (ICD-10) Family History (Updated 04/23/23 @ 23:26 by Joyce Guan) Father Family history of cancer Social History (Updated 04/23/23 @ 23:28 by Joyce Guan) Within the past year, how often did you have a drink containing alcohol: 4 or more times a week Within the past year, how many standard drinks containing alcohol did you have on a typical day: 1 or 2 Within the past year, how often did you have six or more drinks on one occasion: never Total score: 0 Score interpretation: Questions 2 and 3 are 0. It can be assumed that the patient's drinking is below the recommended limits. However, please confirm the accuracy of the patient's alcohol intake over the last few months. Smoking status: Former smoker Second hand tobacco smoke exposure: No Non-prescribed substance use: denies use Are you now , , , , never or living with a partner: Meds Home Medications and Allergies Home Medications ?Medication ?Instructions ?Recorded ?Confirmed ?Type allopurinol 300 mg tablet 300 mg PO DAILY 04/23/23 04/23/23 History citalopram 20 mg tablet 20 mg PO BEDTIME 04/23/23 04/24/23 History lisinopril 20 2 tab PO DAILY 04/23/23 04/23/23 History mg-hydrochlorothiazide 12.5 mg tablet metformin 500 mg tablet 500 mg PO DAILY 04/23/23 04/23/23 History potassium bicarbonate-citric acid 25 meq PO BID 04/23/23 04/23/23 History 20 mEq effervescent tablet (Effer-K) pravastatin 40 mg tablet 40 mg PO BEDTIME 04/23/23 04/23/23 History torsemide 10 mg tablet 10 mg PO DAILY 04/23/23 04/23/23 History warfarin 4 mg tablet 4 mg PO DAILY 04/23/23 04/23/23 History acetaminophen 500 mg tablet 1,000 mg (2 x 500 mg) PO Q6H PRN 04/28/23 Rx (Tylenol Extra Strength) Pain Scale 1-3 #100 tabs ipratropium 0.5 mg-albuterol 3 mg 3 ml inhalation Q6H #180 mL 04/28/23 Rx (2.5 mg base)/3 mL nebulization soln lidocaine 5 % topical patch 1 patch topical QDAY #30 ea 04/28/23 Rx tramadol 50 mg tablet 50 mg PO QID PRN pain #120 tabs 04/28/23 Rx Allergies Allergy/AdvReac Type Severity Reaction Status Date / Time Penicillins Allergy Severe Hives Verified 04/23/23 16:05 Exam Narrative: Exam Narrative: Derm: skin is diffusely dry, thin, and shiny. Hemosiderin staining present on the lower legs. Toenails 1-10 are elongated, thickened, and mycotic. Vasc: DP and PT pulses are nonpalpable bilaterally. Feet are appropriately warm with cap refill <3 sec bilaterally. Neuro: Right Achilles DTR 1+, left DTR absent. Right vibratory sensation present but decreased, left vibratory sensation absent. Monofilament testing revealed normal sensation in 5/5 areas tested bilaterally. MSK: flatfoot deformity bilaterally. No pain with palpation Assessment and Plan Assessment and Plan (1) Tinea unguium: (2) Type 2 diabetes mellitus with diabetic chronic kidney disease: (3) Diminished pulses in lower extremity: (4) Disorder of nail due to another disorder: (5) CKD stage 2 due to type 2 diabetes mellitus: Plan Routine nail care performed. Follow-up in 3 months. Acute Procedures Podiatry Nail Debridement Class B Findings Absent posterior tibial pulse: bilateral Advanced trophic changes as evidenced by any three of the following: decreased hair growth, nail changes (thickening), pigmentary changes (discoloring) and skin texture (thin or shiny) Absent dorsalis pedis pulse: bilateral Class C Findings Claudication: No Temperature changes: No Edema: Yes Nail debridement paresthesia (abnormal spontaneous sensations in the feet): No Burning: No Qualifies If: Qualifiers If:: A patient qualifies for nail debridement if they have: 1 class A finding (Q7) 2 class B findings (Q8) OR 1 class B & 2 class C findings in addition to a primary condition (Q9) Nail Procedure Nail Procedure Time out: Yes Nail procedure: other (Toenail debridement) Number of affected nails: 10 Location (toes): left and right Procedure successful: Yes Patient tolerated procedure: well and no complications Additional comments: Toenails 1 through 10 were sharply debrided with nail nippers without incident.
--- OUTSIDE RECORDS SUMMARY | 2025-08-19 13:35 | XMS_ITS | Encounter Summary ---
Author Organization [facility] Address [address] [place] [address] Phone Care Team Providers Care Photographer Aerial Name Role Phone Modesto George DO Primary Care Provider [phone] Modesto George DO Primary Care Provider [phone] Encounter Details Date Type Department Care Team (Late st Contact Info) Description 11/11/2020 Orders Only [facility] [address] [place] [address] Conversion, Onbase Social History Tobacco Use Types Packs/Day Years Used Date Smoking Tobacco: Never Assessed Sex and Gender Information Value Date Recorded Sex Assigned at Not on file Legal Sex Male 9:25 PM EST Gender Identity Not on file Sexual Orientation Not on file documented as of this encounter Plan of Treatment Upcoming Encounters Date Type Department Care Team (Late st Contact Info) Description 12/18/2025 3:10 PM EST Office Visit [facility] [address] [address] Michael Mullen MD 703 [facility] 2, [address] [place] [address] Scheduled Orders Name Type Priority Associated Diagnoses Orde r Schedule OUTSIDE LAB SCAN Lab Ordered: 11/11/2020 documented as of this encounter Visit Diagnoses Not on filedocumented in this encounter Care Teams Photographer Aerial Relationship Specialty Start Date End Date Modesto George DO PCP - General 11/21/99 04/22/25 Modesto George DO [address] [place] [address] PCP - General Internal Medicine 04/23/25 documented as of this encounter
--- OUTSIDE RECORDS SUMMARY | 2025-08-19 13:35 | XMS_ITS | Encounter Summary ---
Author Organization [facility] Address [address] [place] [address] Phone Care Team Providers Care School Age Teacher Name Role Phone Modesto George DO Primary Care Provider [phone] Modesto George DO Primary Care Provider [phone] Encounter Details Date Type Department Care Team (Late st Contact Info) Description 10/30/2020 Orders Only [facility] [address] [place] [address] Conversion, Onbase Social History Tobacco Use Types [...] Description 12/18/2025 3:10 PM EST Office Visit [facility] [address] [address] Michael Mullen MD 703 [facility] 2, [address] [place] [address] Scheduled Orders Name Type Priority Associated Diagnoses Orde r Schedule OUTSIDE LAB SCAN Lab Ordered: 10/30/2020 documented as of this encounter Visit Diagnoses Not on filedocumented in this encounter Care Teams School Age Teacher Relationship Specialty Start Date End Date Modesto George DO PCP - General 11/21/99 04/22/25 Modesto George DO [address] [place] [address] PCP - General Internal Medicine 04/23/25 documented as of this encounter
--- OUTSIDE RECORDS SUMMARY | 2025-08-19 13:35 | XMS_ITS | Encounter Summary ---
Author Organization [facility] Address [address] [place] [address] Phone Care Team Providers Care Legal Support Specialist Name Role Phone Modesto George DO Primary Care Provider [phone] Modesto George DO Primary Care Provider [phone] Encounter Details Date Type Department Care Team (Late st Contact Info) Description 06/22/2023 Scanned Document [facility] [address] [place] [address] Conversion, Onbase Social History Tobacco Use Types [...] Description 12/18/2025 3:10 PM EST Office Visit [facility] 703 [facility] [address] [place] [address] Michael Mullen MD 703 [facility], [address] [place], [place] [id number] documented as of this encounter Procedures Procedure Name Priority Date/Time Associated Diagnosis Comments CARDIAC STRESS TEST 06/22/2023 documented in this encounter Results * CARDIAC STRESS TEST (06/22/2023) Narrative 06/22/2023 Ordered by an unspecified provider. us Onbase Conversion CV STRESS PROCEDURES Final Res ult documented in this encounter Visit Diagnoses Not on filedocumented in this encounter Care Teams Legal Support Specialist Relationship Specialty Start Date End Date Modesto George DO PCP - General 11/21/99 04/22/25 Modesto George DO [address] [place] [address] PCP - General Internal Medicine 04/23/25 documented as of this encounter
--- OUTSIDE RECORDS SUMMARY | 2025-08-19 13:35 | XMS_ITS | Encounter Summary ---
Author Organization [facility] Address [address] [place] [address] Phone Care Team Providers Care Ship Pilot Dispatcher Name Role Phone Modesto George DO Primary Care Provider [phone] Modesto George DO Primary Care Provider [phone] Encounter Details Date Type Department Care Team (Late st Contact Info) Description 06/26/2020 Orders Only [facility] [address] [place] [address] Conversion, Onbase Social History Tobacco Use Types [...] Description 12/18/2025 3:10 PM EST Office Visit [facility] [address] [address] Michael Mullen MD 703 [facility] 2, [address] [place] [address] Scheduled Orders Name Type Priority Associated Diagnoses Orde r Schedule OUTSIDE LAB SCAN Lab Ordered: 06/26/2020 documented as of this encounter Visit Diagnoses Not on filedocumented in this encounter Care Teams Ship Pilot Dispatcher Relationship Specialty Start Date End Date Modesto George DO PCP - General 11/21/99 04/22/25 Modesto George DO [address] [place] [address] PCP - General Internal Medicine 04/23/25 documented as of this encounter
--- OUTSIDE RECORDS SUMMARY | 2025-08-19 13:35 | XMS_ITS | Encounter Summary ---
Author Organization [facility] Address [address] [place] [address] Phone Care Team Providers Care Third Grade Teacher Name Role Phone Modesto George DO Primary Care Provider Modesto George DO Primary Care Provider [phone] Encounter Details Date Type Department Care Team (Late st Contact Info) Description 04/17/2020 Orders Only [facility] [address] [place] [address] Conversion, Onbase Social History Tobacco Use Types [...] Description 12/18/2025 3:10 PM EST Office Visit [facility] [address] [address] Michael Mullen MD 703 [facility] 2, [address] [place] [address] Scheduled Orders Name Type Priority Associated Diagnoses Orde r Schedule OUTSIDE LAB SCAN Lab Ordered: 04/17/2020 documented as of this encounter Visit Diagnoses Not on filedocumented in this encounter Care Teams Third Grade Teacher Relationship Specialty Start Date End Date Modesto George DO PCP - General 11/21/99 04/22/25 Modesto George DO [address] [place] [address] PCP - General Internal Medicine 04/23/25 documented as of this encounter
--- OUTSIDE RECORDS SUMMARY | 2025-08-19 13:35 | XMS_ITS | Encounter Summary ---
Author Organization [facility] Address [address] [place] [address] Phone Care Team Providers Care Director Of Restaurant Name Role Phone Modesto George DO Primary Care Provider [phone] Modesto George DO Primary Care Provider [phone] Encounter Details Date Type Department Care Team (Late st Contact Info) Description 03/31/2019 Orders Only [facility] [address] [place] [address] Conversion, Onbase Social History Tobacco Use Types [...] Description 12/18/2025 3:10 PM EST Office Visit [facility] [address] [address] Michael Mullen MD 703 [facility] 2, [address] [place] [address] Scheduled Orders Name Type Priority Associated Diagnoses Orde r Schedule OUTSIDE LAB SCAN Lab Ordered: 03/31/2019 OUTSIDE LAB SCAN Lab Ordered: 03/31/2019 OUTSIDE LAB SCAN Lab Ordered: 03/31/2019 documented as of this encounter Visit Diagnoses Not on filedocumented in this encounter Care Teams Director Of Restaurant Relationship Specialty Start Date End Date Modesto George DO PCP - General 11/21/99 04/22/25 Modesto George DO [address] [place] [address] PCP - General Internal Medicine 04/23/25 documented as of this encounter
--- OUTSIDE RECORDS SUMMARY | 2025-08-19 13:35 | XMS_ITS | Encounter Summary ---
Author Organization [facility] Address [address] [place] [address] Phone Care Team Providers Care Felt Checker Name Role Phone Modesto George DO Primary Care Provider [phone] Modesto George DO Primary Care Provider [phone] Encounter Details Date Type Department Care Team (Late st Contact Info) Description 09/11/2004 Scanned Document [facility] [address] [place] [id number] Scanning, Generic Provider Social History Tobacco Use Types Packs/Day Years [...] Description 12/18/2025 3:10 PM EST Office Visit [facility] [address] [address] Michael Mullen MD 703 [facility] 2, [address] [place], [place] [phone] documented as of this encounter Visit Diagnoses Not on filedocumented in this encounter Care Teams Felt Checker Relationship Specialty Start Date End Date Modesto George DO PCP - General 11/21/99 04/22/25 Modesto George DO [address] [place] [address] PCP - General Internal Medicine 04/23/25 documented as of this encounter
--- OUTSIDE RECORDS SUMMARY | 2025-08-19 13:35 | XMS_ITS | Encounter Summary ---
Author Organization [facility] Address [address] [place] [address] Phone Care Team Providers Care Commercial Assistant Name Role Phone Modesto George DO Primary Care Provider [phone] Modseto George DO Primary Care Provider [phone] Encounter Details Date Type Department Care Team (Late st Contact Info) Description 06/22/[address] [facility] [address] [place] [id number] Scanning, Generic Provider Social History Tobacco Use Types Packs/Day Years Used Date Smoking Tobacco: Former Cigarettes Alcohol Use Standard Drinks/Week Comments Yes 0 (1 standard drink = 0.6 oz pur e alcohol) occasional Sex and Gender Information Value Date Recorded Sex Assigned at Not on file Legal Sex Male 9:25 PM EST Gender Identity Not on file Sexual Orientation Not on file documented as of this encounter Plan of Treatment Upcoming Encounters Date Type Department Care Team (Late st Contact Info) Description 12/18/2025 3:10 PM EST Office Visit [place] [address] [address] Michael Mullen MD 703 [facility] 2, [facility] [address] [place] [address] documented as of this encounter Visit Diagnoses Not on filedocumented in this encounter Additional Health Concerns Assessment Noted Time A fall risk assessment has been complete d for the patient 04/23/2024 10:33 AM EDT documented as of this encounter Care Teams Commercial Assistant Relationship Specialty Start Date End Date Modesto George DO PCP - General 11/21/99 04/22/25 Modesto George DO [address] [place] [address] PCP - General Internal Medicine 04/23/25 documented as of this encounter
--- OUTSIDE RECORDS SUMMARY | 2025-08-19 13:35 | XMS_ITS | Encounter Summary ---
Author Organization [facility] Address [address] [place] [address] Phone Care Team Providers Care Seniour Insight Manager Name Role Phone Modesto George DO Primary Care Provider Modesto George DO Primary Care Provider [phone] Encounter Details Date Type Department Care Team (Late st Contact Info) Description 08/15/2019 Orders Only [facility] [address] [place] [address] Conversion, Onbase Social History Tobacco Use Types [...] Description 12/18/2025 3:10 PM EST Office Visit [facility] [address] [address] Michael Mullen MD 703 [facility] 2, Last [address] [place] [address] Scheduled Orders Name Type Priority Associated Diagnoses Orde r Schedule OUTSIDE LAB SCAN Lab Ordered: 08/15/2019 documented as of this encounter Visit Diagnoses Not on filedocumented in this encounter Care Teams Seniour Insight Manager Relationship Specialty Start Date End Date Modesto George DO PCP - General 11/21/99 04/22/25 Modesto George DO [address] [place] [address] PCP - General Internal Medicine 04/23/25 documented as of this encounter
--- OUTSIDE RECORDS SUMMARY | 2025-08-19 13:35 | XMS_ITS | Encounter Summary ---
Author Organization [facility] Address [address] [place] [address] Phone Care Team Providers Care Principal Systems Architect Name Role Phone Modesto George DO Primary Care Provider [phone] Modesto George DO Primary Care Provider [phone] Encounter Details Date Type Department Care Team (Late st Contact Info) Description 06/07/2023 Orders Only [facility] [address] [place] [address] Conversion, Onbase Social History Tobacco Use Types [...] Description 12/18/2025 3:10 PM EST Office Visit [facility] 703 [facility] 250 [place] [address] Michael Mullen MD 703 [facility] 2, Last [address] [place] [address] Scheduled Orders Name Type Priority Associated Diagnoses Orde r Schedule OUTSIDE LAB SCAN Lab Ordered: 06/07/2023 documented as of this encounter Visit Diagnoses Not on filedocumented in this encounter Care Teams Principal Systems Architect Relationship Specialty Start Date End Date Modesto George DO PCP - General 11/21/99 04/22/25 Modesto George DO [address] [place] [address] PCP - General Internal Medicine 04/23/25 documented as of this encounter
--- OUTSIDE RECORDS SUMMARY | 2025-08-19 13:35 | XMS_ITS | Encounter Summary ---
Author Organization [facility] Address [address] [place] [address] Phone Care Team Providers Care Residential Real Estate Appraiser Name Role Phone Modesto George DO Primary Care Provider Modesto George DO Primary Care Provider [phone] Encounter Details Date Type Department Care Team (Late st Contact Info) Description 07/15/2020 Orders Only [facility] [address] [place] [address] Conversion, Onbase Social History Tobacco Use Types [...] Description 12/18/2025 3:10 PM EST Office Visit [facility] [address] [address] Michael Mullen MD 703 [facility] 2, Last [address] [place] [address] Scheduled Orders Name Type Priority Associated Diagnoses Orde r Schedule OUTSIDE LAB SCAN Lab Ordered: 07/15/2020 documented as of this encounter Visit Diagnoses Not on filedocumented in this encounter Care Teams Residential Real Estate Appraiser Relationship Specialty Start Date End Date Modesto George DO PCP - General 11/21/99 04/22/25 Modesto George DO [address] [place] [address] PCP - General Internal Medicine 04/23/25 documented as of this encounter
--- OUTSIDE RECORDS SUMMARY | 2025-08-19 13:35 | XMS_ITS | Encounter Summary ---
Author Organization [facility] Address [address] [place] [address] Phone Care Team Providers Care Pin Pusher Name Role Phone Modesto George DO Primary Care Provider [phone] Modesto George DO Primary Care Provider [phone] Encounter Details Date Type Department Care Team (Late st Contact Info) Description 07/30/2024 Scanned Document [facility] [address] [place] [id number] Scanning, Generic Provider Social History Tobacco Use [...] Description 12/18/2025 3:10 PM EST Office Visit [facility] [address] [address] Michael Mullen MD 703 [facility] 2, [facility] 250 [place] [address] documented as of this encounter Procedures Procedure Name Priority Date/Time Associated Diagnosis Comments OUTSIDE LAB SCAN 07/30/2024 documented in this encounter Results * OUTSIDE LAB SCAN (07/30/2024) Narrative 07/30/2024 Ordered by an unspecified provider. us Generic Provider Scanning OUTSIDE SCAN Final Result documented in this encounter Visit Diagnoses Not on filedocumented in this encounter Additional Health Concerns Assessment Noted Time A fall risk assessment has been complete d for the patient 04/23/2024 10:33 AM EDT documented as of this encounter Care Teams Pin Pusher Relationship Specialty Start Date End Date Modesto George DO PCP - General 11/21/99 04/22/25 Modesto George DO [address] [place] [address] PCP - General Internal Medicine 04/23/25 documented as of this encounter
--- OUTSIDE RECORDS SUMMARY | 2025-08-19 13:35 | XMS_ITS | Encounter Summary ---
Author Organization [facility] Address [address] [place] [address] Phone Care Team Providers Care Marketing Programs Specialist Name Role Phone Modesto George DO Primary Care Provider [phone] Modesto George DO Primary Care Provider [phone] Encounter Details Date Type Department Care Team (Late st Contact Info) Description 02/24/2022 Orders Only [facility] [address] [place] [address] Conversion, Onbase Social History Tobacco Use Types [...] Description 12/18/2025 3:10 PM EST Office Visit [facility] 703 [facility] 250 [place] [address] Michael Mullen MD 703 [facility] 2, Last [address] [place] [address] Scheduled Orders Name Type Priority Associated Diagnoses Orde r Schedule OUTSIDE LAB SCAN Lab Ordered: 02/24/2022 documented as of this encounter Visit Diagnoses Not on filedocumented in this encounter Care Teams Marketing Programs Specialist Relationship Specialty Start Date End Date Modesto George DO PCP - General 11/21/99 04/22/25 Modesto George DO [address] [place] [address] PCP - General Internal Medicine 04/23/25 documented as of this encounter
--- OUTSIDE RECORDS SUMMARY | 2025-08-19 13:35 | XMS_ITS | Encounter Summary ---
Author Organization [facility] Address [address] [place] [address] Phone Care Team Providers Care Petroleum Analyst Name Role Phone Modesto George DO Primary Care Provider [phone] Modesto George DO Primary Care Provider [phone] Encounter Details Date Type Department Care Team (Late st Contact Info) Description 09/09/2021 Orders Only [facility] [address] [place] [address] Conversion, Onbase Social History Tobacco Use Types [...] Office Visit [facility] 703 [facility] 250 [place] [address] Michael Mullen MD 703 [facility] 2, Last [address] [place] [address] Scheduled Orders Name Type Priority Associated Diagnoses Orde r Schedule OUTSIDE LAB SCAN Lab Ordered: 09/09/2021 documented as of this encounter Visit Diagnoses Not on filedocumented in this encounter Care Teams Petroleum Analyst Relationship Specialty Start Date End Date Modesto George DO PCP - General 11/21/99 04/22/25 Modesto George DO [address] [place] [address] PCP - General Internal Medicine 04/23/25 documented as of this encounter
--- OUTSIDE RECORDS SUMMARY | 2025-08-19 13:35 | XMS_ITS | Encounter Summary ---
Author Organization [facility] Address [address] [place] [address] Phone Care Team Providers Care Certified Nursing Assistant Name Role Phone Modesto George DO Primary Care Provider [phone] Modesto George DO Primary Care Provider [phone] Encounter Details Date Type Department Care Team (Late st Contact Info) Description 10/29/2021 Orders Only [facility] [address] [place] [address] Conversion, Onbase Social History Tobacco Use Types [...] Description 12/18/2025 3:10 PM EST Office Visit [facility] 703 [facility] 250 [place] [address] Michael Mullen MD 703 [facility] 2, Last [address] [place], [place] [address] Scheduled Orders Name Type Priority Associated Diagnoses Orde r Schedule OUTSIDE LAB SCAN Lab Ordered: 10/29/2021 documented as of this encounter Visit Diagnoses Not on filedocumented in this encounter Care Teams Certified Nursing Assistant Relationship Specialty Start Date End Date Modesto George DO PCP - General 11/21/99 04/22/25 Modesto George DO [address] [place] [address] PCP - General Internal Medicine 04/23/25 documented as of this encounter
--- OUTSIDE RECORDS SUMMARY | 2025-08-19 13:35 | XMS_ITS | Encounter Summary ---
Author Organization [facility] Address [address] [place] [address] Phone Care Team Providers Care Commercial Solar Sales Consultant Name Role Phone Modesto George DO Primary Care Provider [phone] Modesto George DO Primary Care Provider [phone] Encounter Details Date Type Department Care Team (Late st Contact Info) Description 05/14/2021 Orders Only [facility] [address] [place] [address] Conversion, Onbase Social History Tobacco Use Types [...] Description 12/18/2025 3:10 PM EST Office Visit [facility] 703 [facility] 250 [place] [address] Michael Mullen MD 7[address] [facility] 2, Last [address] [place], [place] [address] Scheduled Orders Name Type Priority Associated Diagnoses Orde r Schedule OUTSIDE LAB SCAN Lab Ordered: 05/14/2021 documented as of this encounter Visit Diagnoses Not on filedocumented in this encounter Care Teams Commercial Solar Sales Consultant Relationship Specialty Start Date End Date Modesto George DO PCP - General 11/21/99 04/22/25 Modesto George DO [address] [place] [address] PCP - General Internal Medicine 04/23/25 documented as of this encounter
--- OUTSIDE RECORDS SUMMARY | 2025-08-19 13:35 | XMS_ITS | Encounter Summary ---
Author Organization [facility] Address [address] [place] [address] Phone Care Team Providers Care Tourist Adviser Name Role Phone Modesto George DO Primary Care Provider [phone] Modesto George DO Primary Care Provider [phone] Encounter Details Date Type Department Care Team (Late st Contact Info) Description 01/30/2025 Scanned Document [facility] [address] [place] [id number] Scanning, Generic Provider Social History Tobacco Use [...] Description 12/18/2025 3:10 PM EST Office Visit [place] [address] [address] Michael Mullen MD 703 [facility] 2, [facility] 250 [place] [address] documented as of this encounter Visit Diagnoses Not on filedocumented in this encounter Additional Health Concerns Assessment Noted Time A fall risk assessment has been complete d for the patient 10/25/2024 3:01 PM EST documented as of this encounter Care Teams Tourist Adviser Relationship Specialty Start Date End Date Modesto George DO PCP - General 11/21/99 04/22/25 Modesto George DO [address] [place] [address] PCP - General Internal Medicine 04/23/25 documented as of this encounter
--- OUTSIDE RECORDS SUMMARY | 2025-08-19 13:35 | XMS_ITS | Encounter Summary ---
Author Organization [facility] Address [address] [place] [address] Phone Care Team Providers Care Landscape Contractor Name Role Phone Modesto George DO Primary Care Provider [phone] Modesto George DO Primary Care Provider [phone] Encounter Details Date Type Department Care Team (Late st Contact Info) Description 07/26/2023 Orders Only [facility] [address] Virtual [place] [address] Conversion, Onbase Social History Tobacco Use Types [...] Description 12/18/2025 3:10 PM EST Office Visit [facility] 703 [facility] 250 [place] [address] Michael Mullen MD 703 [facility] 2, Last [address] [place] [address] Scheduled Orders Name Type Priority Associated Diagnoses Orde r Schedule OUTSIDE LAB SCAN Lab Ordered: 07/26/2023 documented as of this encounter Visit Diagnoses Not on filedocumented in this encounter Care Teams Landscape Contractor Relationship Specialty Start Date End Date Modesto George DO PCP - General 11/21/99 04/22/25 Modesto George DO [address] [place] [address] PCP - General Internal Medicine 04/23/25 documented as of this encounter
--- OUTSIDE RECORDS SUMMARY | 2025-08-19 13:35 | XMS_ITS | Encounter Summary ---
Author Organization [facility] Address [address] [place] [address] Phone Care Team Providers Care Chemicals Distiller Name Role Phone Modesto George DO Primary Care Provider [phone] Modesto George DO Primary Care Provider [phone] Encounter Details Date Type Department Care Team (Late st Contact Info) Description 04/01/2021 Orders Only [facility] [address] [place] [address] Conversion, Onbase Social History Tobacco Use Types [...] Description 12/18/2025 3:10 PM EST Office Visit [facility] 703 [facility] 250 [place] [address] Michael Mullen MD 703 [facility] 2, Last [address] [place], [place] [address] Scheduled Orders Name Type Priority Associated Diagnoses Orde r Schedule OUTSIDE LAB SCAN Lab Ordered: 04/01/2021 documented as of this encounter Visit Diagnoses Not on filedocumented in this encounter Care Teams Chemicals Distiller Relationship Specialty Start Date End Date Modesto George DO PCP - General 11/21/99 04/22/25 Modesto George DO [address] [place] [address] PCP - General Internal Medicine 04/23/25 documented as of this encounter
--- OUTSIDE RECORDS SUMMARY | 2025-08-19 13:35 | XMS_ITS | Encounter Summary ---
Author Organization [facility] Address [address] [place] [address] Phone Care Team Providers Care Bulk Plant Supervisor Name Role Phone Modesto George DO Primary Care Provider [phone] Modesto George DO Primary Care Provider [phone] Encounter Details Date Type Department Care Team (Late st Contact Info) Description 05/31/2023 Orders Only [facility] [address] [place] [address] Conversion, Onbase Social History Tobacco Use Types [...] Office Visit [facility] 703 [facility] 250 [place] [address] Michael Mullen MD 703 [employer] 2, Last [address] [place] [address] Scheduled Orders Name Type Priority Associated Diagnoses Orde r Schedule OUTSIDE LAB SCAN Lab Ordered: 05/31/2023 documented as of this encounter Visit Diagnoses Not on filedocumented in this encounter Care Teams Bulk Plant Supervisor Relationship Specialty Start Date End Date Modesto George DO PCP - General 11/21/99 04/22/25 Modesto George DO [address] [place] [address] PCP - General Internal Medicine 04/23/25 documented as of this encounter
--- OUTSIDE RECORDS SUMMARY | 2025-08-19 13:35 | XMS_ITS | Encounter Summary ---
Author Organization [facility] Address [address] [place] [address] Phone Care Team Providers Care Hl7 Developer Name Role Phone Modesto George DO Primary Care Provider [phone] Modesto George DO Primary Care Provider [phone] Encounter Details Date Type Department Care Team (Late st Contact Info) Description 03/27/2020 Orders Only [facility] [address] [place] [address] Conversion, Onbase Social History Tobacco Use Types [...] Description 12/18/2025 3:10 PM EST Office Visit [facility] [address] [address] Michael Mullen MD 703 [facility] 2, Last [address] [place] [address] Scheduled Orders Name Type Priority Associated Diagnoses Orde r Schedule OUTSIDE LAB SCAN Lab Ordered: 03/27/2020 documented as of this encounter Visit Diagnoses Not on filedocumented in this encounter Care Teams Hl7 Developer Relationship Specialty Start Date End Date Modesto George DO PCP - General 11/21/99 04/22/25 Modesto George DO [address] [place] [address] PCP - General Internal Medicine 04/23/25 documented as of this encounter
--- OUTSIDE RECORDS SUMMARY | 2025-08-19 13:35 | XMS_ITS | Encounter Summary ---
Author Organization [facility] Address [address] [place] [address] Phone Care Team Providers Care Clinic Office Manager Name Role Phone Modesto George DO Primary Care Provider [phone] Modesto George DO Primary Care Provider [phone] Encounter Details Date Type Department Care Team (Late st Contact Info) Description 11/10/2021 Orders Only [facility] [address] [place] [address] Conversion, Onbase Social History Tobacco Use Types [...] 3:10 PM EST Office [facility] 703 [facility] 250 [place] [address] Michael Mullen MD [address] [facility] 2, Last [address] [place], [place] [address] Scheduled Orders Name Type Priority Associated Diagnoses Orde r Schedule OUTSIDE LAB SCAN Lab Ordered: 11/10/2021 documented as of this encounter Visit Diagnoses Not on filedocumented in this encounter Care Teams Clinic Office Manager Relationship Specialty Start Date End Date Modesto George DO PCP - General 11/21/99 04/22/25 Modesto George DO [address] [place] [address] PCP - General Internal Medicine 04/23/25 documented as of this encounter
--- OUTSIDE RECORDS SUMMARY | 2025-08-19 13:35 | XMS_ITS | Encounter Summary ---
Author Organization [facility] Address [address] [place] [address] Phone Care Team Providers Care Ent Physician Name Role Phone Modesto George DO Primary Care Provider [phone] Modesto George DO Primary Care Provider Encounter Details Date Type Department Care Team (Late st Contact Info) Description 01/09/2025 Scanned Document [facility] [address] [place] [address] Scanning, Generic Provider Social History Tobacco Use [...] Description 12/18/2025 3:10 PM EST Office Visit [facility] [address] [address] Michael Mullen MD 703 [facility] 2, [facility] 250 [place] [address] documented as of this encounter Procedures Procedure Name Priority Date/Time Associated Diagnosis Comments OUTSIDE LAB SCAN 01/09/2025 documented in this encounter Results * OUTSIDE LAB SCAN (01/09/2025) Narrative 01/09/2025 Ordered by an unspecified provider. us Generic Provider Scanning OUTSIDE SCAN Final Result documented in this encounter Visit Diagnoses Not on filedocumented in this encounter Additional Health Concerns Assessment Noted Time A fall risk assessment has been complete d for the patient 10/25/2024 3:01 PM EST documented as of this encounter Care Teams Ent Physician Relationship Specialty Start Date End Date Modesto George DO PCP - General 11/21/99 04/22/25 Modesto George DO [address] [place] [address] PCP - General Internal Medicine 04/23/25 documented as of this encounter
--- OUTSIDE RECORDS SUMMARY | 2025-08-19 13:35 | XMS_ITS | Clinical Summary ---
Author Organization [facility] Address [address] [place] [address] Care Team Providers Care Cdl Program Coordinator Name Role Phone Rafat George Primary Care Provider [phone] Social History Tobacco Use Types Packs/Day Years Used Date Smoking Tobacco: Never Assessed Sex and Gender Information Value Date Recorded Sex Assigned at Not on file Legal Sex Male 9:09 AM EST Gender Identity Not on file Sexual Orientation Not on file Plan of Treatment Not on file Insurance MEDICARE [facility] Care Teams Cdl Program Coordinator Relationship Specialty Start Date End Date Rafat George [address] [place] [address] [facility] - General 03/03/01
--- OUTSIDE RECORDS SUMMARY | 2025-08-19 13:35 | XMS_ITS | Encounter Summary ---
Author Organization [facility] Address [address] [place] [address] Phone Care Team Providers Care Uniform Cap Operator Name Role Phone Modesto George DO Primary Care Provider [phone] Modesto George DO Primary Care Provider [phone] Encounter Details Date Type Department Care Team (Late st Contact Info) Description 07/16/2024 Scanned Document [facility] [address] [place] [phone] Scanning, Generic Provider Social History Tobacco Use [...] Description 12/18/2025 3:10 PM EST Office Visit [facility] [address] [address] Michael Mullen MD [address] [facility] 2, [facility] 250 [place] [address] documented as of this encounter Procedures Procedure Name Priority Date/Time Associated Diagnosis Comments OUTSIDE LAB SCAN 07/16/2024 documented in this encounter Results * OUTSIDE LAB SCAN (07/16/2024) Narrative 07/16/2024 Ordered by an unspecified provider. us Generic Provider Scanning OUTSIDE SCAN Final Result documented in this encounter Visit Diagnoses Not on filedocumented in this encounter Additional Health Concerns Assessment Noted Time A fall risk assessment has been complete d for the patient 04/23/2024 10:33 AM EDT documented as of this encounter Care Teams Uniform Cap Operator Relationship Specialty Start Date End Date Modesto George DO PCP - General 11/21/99 04/22/25 Modesto George DO [address] [place] [address] PCP - General Internal Medicine 04/23/25 documented as of this encounter
--- OUTSIDE RECORDS SUMMARY | 2025-08-19 13:35 | XMS_ITS | Encounter Summary ---
Author Organization [facility] Address [address] [place] [address] Phone Care Team Providers Care Bistro Attendant Name Role Phone Modesto George DO Primary Care Provider [phone] Modesto George DO Primary Care Provider [phone] Encounter Details Date Type Department Care Team (Late st Contact Info) Description 05/28/2020 Orders Only [facility] [address] [place] [address] Conversion, Onbase Social History Tobacco Use Types [...] Visit [facility] [address] [address] Michael Mullen MD 703 [facility] 2, Last [address] [place] [address] Scheduled Orders Name Type Priority Associated Diagnoses Orde r Schedule OUTSIDE LAB SCAN Lab Ordered: 05/28/2020 documented as of this encounter Visit Diagnoses Not on filedocumented in this encounter Care Teams Bistro Attendant Relationship Specialty Start Date End Date Modesto George DO PCP - General 11/21/99 04/22/25 Modesto George DO [address] [place] [address] PCP - General Internal Medicine 04/23/25 documented as of this encounter
--- OUTSIDE RECORDS SUMMARY | 2025-08-19 13:35 | XMS_ITS | Encounter Summary ---
Author Organization [facility] Address [address] [place] [address] Phone Care Team Providers Care Radiology Aide Name Role Phone [place] George DO Primary Care Provider [phone] [place] George DO Primary Care Provider [phone] Encounter Details Date Type Department Care Team (Late st Contact Info) Description 07/16/2021 Orders Only [facility] [address] [place] [address] Conversion, Onbase Social History Tobacco Use Types [...] Description 12/18/2025 3:10 PM EST Office Visit [facility] 703 [facility] 250 [place] [address] Michael Mullen MD 703 [facility] 2, Last 250 [place] [address] Scheduled Orders Name Type Priority Associated Diagnoses Orde r Schedule OUTSIDE LAB SCAN Lab Ordered: 07/16/2021 documented as of this encounter Visit Diagnoses Not on filedocumented in this encounter Care Teams Radiology Aide Relationship Specialty Start Date End Date [place] George DO PCP - General 11/21/99 04/22/25 [place] George DO [address] [place] [address] PCP - General Internal Medicine 04/23/25 documented as of this encounter
--- OUTSIDE RECORDS SUMMARY | 2025-08-19 13:35 | XMS_ITS | Encounter Summary ---
Author Organization [facility] Address [address] [place] [address] Phone Care Team Providers Care Probate Paralegal Name Role Phone [place] George DO Primary Care Provider [phone] [place] George DO Primary Care Provider [phone] Encounter Details Date Type Department Care Team (Late st Contact Info) Description 06/18/2024 Scanned Document [facility] [address] [place] [id number] Scanning, Generic Provider Social History Tobacco Use [...] Description 12/18/2025 3:10 PM EST Office Visit [place] [address] [address] Michael Mullen MD 703 [facility] 2, [facility] 250 [place] [address] documented as of this encounter Visit Diagnoses Not on filedocumented in this encounter Additional Health Concerns Assessment Noted Time A fall risk assessment has been complete d for the patient 04/23/2024 10:33 AM EDT documented as of this encounter Care Teams Probate Paralegal Relationship Specialty Start Date End Date [place] George DO PCP - General 11/21/99 04/22/25 [place] George DO [address] [place] [address] PCP - General Internal Medicine 04/23/25 documented as of this encounter
--- OUTSIDE RECORDS SUMMARY | 2025-08-19 13:35 | XMS_ITS | Encounter Summary ---
Author Organization [facility] Address [address] [place] [address] Phone Care Team Providers Care Preparation Supervisor Canning Name Role Phone [place] George DO Primary Care Provider [phone] [place] George DO Primary Care Provider [phone] Encounter Details Date Type Department Care Team (Late st Contact Info) Description 12/03/2021 Orders Only [facility] [address] [place] [address] Conversion, Onbase Social History Tobacco Use Types [...] [facility] 703 [facility] 250 [place] [address] Michael Mullen MD 703 [facility] 2, Last 250 [place] [address] Scheduled Orders Name Type Priority Associated Diagnoses Orde r Schedule OUTSIDE LAB SCAN Lab Ordered: 12/03/2021 documented as of this encounter Visit Diagnoses Not on filedocumented in this encounter Care Teams Preparation Supervisor Canning Relationship Specialty Start Date End Date [place] George DO PCP - General 11/21/99 04/22/25 [place] George DO [address] [place] [address] PCP - General Internal Medicine 04/23/25 documented as of this encounter
--- OUTSIDE RECORDS SUMMARY | 2025-08-19 13:35 | XMS_ITS | Encounter Summary ---
Author Organization [facility] Address [address] [place] [address] Phone Care Team Providers Care Undercutter Name Role Phone [place] George DO Primary Care Provider [phone] [place] George DO Primary Care Provider Encounter Details Date Type Department Care Team (Late st Contact Info) Description 11/26/2020 Orders Only [facility] [address] [place] [address] Conversion, Onbase Social History Tobacco Use Types [...] Description 12/18/2025 3:10 PM EST Office Visit [facility] 703 [facility] 250 [place] [address] Michael Mullen MD 703 [facility] 2, Last 250 [place], [place] [address] Scheduled Orders Name Type Priority Associated Diagnoses Orde r Schedule OUTSIDE LAB SCAN Lab Ordered: 11/26/2020 documented as of this encounter Visit Diagnoses Not on filedocumented in this encounter Care Teams Undercutter Relationship Specialty Start Date End Date [place] George DO PCP - General 11/21/99 04/22/25 [place] George DO [address] [place] [address] PCP - General Internal Medicine 04/23/25 documented as of this encounter
--- OUTSIDE RECORDS SUMMARY | 2025-08-19 13:35 | XMS_ITS | Encounter Summary ---
Author Organization [facility] Address [address] [place] [address] Phone Care Team Providers Care Gluing Machine Offbearer Name Role Phone [place] George DO Primary Care Provider [phone] [place] George DO Primary Care Provider [phone] Encounter Details Date Type Department Care Team (Late st Contact Info) Description 07/09/2021 Orders Only [facility] [address] [place] [address] Conversion, Onbase Social History Tobacco Use Types [...] Description 12/18/2025 3:10 PM EST Office Visit [facility] 703 [facility] 250 [place] [address] Michael Mullen MD 703 [facility] 2, Last [address] [place] [address] Scheduled Orders Name Type Priority Associated Diagnoses Orde r Schedule OUTSIDE LAB SCAN Lab Ordered: 07/09/2021 documented as of this encounter Visit Diagnoses Not on filedocumented in this encounter Care Teams Gluing Machine Offbearer Relationship Specialty Start Date End Date [place] George DO PCP - General 11/21/99 04/22/25 [place] George DO [address] [place] [address] PCP - General Internal Medicine 04/23/25 documented as of this encounter
--- OUTSIDE RECORDS SUMMARY | 2025-08-19 13:35 | XMS_ITS | Encounter Summary ---
Author Organization [facility] Address [address] [place] [address] Phone Care Team Providers Care Organic Chemistry Professor Name Role Phone [place] George DO Primary Care Provider [phone] [place] George DO Primary Care Provider [phone] Encounter Details Date Type Department Care Team (Late st Contact Info) Description 07/25/2024 Scanned Document [facility] [address] [place] [phone] Scanning, Generic Provider Social History Tobacco Use [...] Description 12/18/2025 3:10 PM EST Office Visit [facility] [address] [address] Michael Mullen MD 703 [facility] 2, [facility] 250 [place] [address] documented as of this encounter Procedures Procedure Name Priority Date/Time Associated Diagnosis Comments OUTSIDE LAB SCAN 07/25/2024 documented in this encounter Results * OUTSIDE LAB SCAN (07/25/2024) Narrative 07/25/2024 Ordered by an unspecified provider. us Generic Provider Scanning OUTSIDE SCAN Final Result documented in this encounter Visit Diagnoses Not on filedocumented in this encounter Additional Health Concerns Assessment Noted Time A fall risk assessment has been complete d for the patient 04/23/2024 10:33 AM EDT documented as of this encounter Care Teams Organic Chemistry Professor Relationship Specialty Start Date End Date [place] George DO PCP - General 11/21/99 04/22/25 [place] George DO [address] [place] [address] PCP - General Internal Medicine 04/23/25 documented as of this encounter
--- OUTSIDE RECORDS SUMMARY | 2025-08-19 13:35 | XMS_ITS | Encounter Summary ---
Author Organization [facility] Address [address] [place] [address] Phone Care Team Providers Care Mobile Ui/Ux Designer Name Role Phone [place] George DO Primary Care Provider [phone] [place] George DO Primary Care Provider [phone] Encounter Details Date Type Department Care Team (Late st Contact Info) Description 06/19/2024 Scanned Document [facility] [address] [place] [phone] Scanning, Generic Provider Social History Tobacco Use [...] Description 12/18/2025 3:10 PM EST Office Visit [facility] [address] [address] Michael Mullen MD 703 [facility] 2, [facility] 250 [place] [address] documented as of this encounter Procedures Procedure Name Priority Date/Time Associated Diagnosis Comments ECHOCARDIOGRAM 06/19/2024 documented in this encounter Results * Echocardiogram (06/19/2024) Narrative 06/19/2024 Ordered by an unspecified provider. us Generic Provider Scanning CV ECHO PROCEDURES Fin al Result documented in this encounter Visit Diagnoses Not on filedocumented in this encounter Additional Health Concerns Assessment Noted Time A fall risk assessment has been complete d for the patient 04/23/2024 10:33 AM EDT documented as of this encounter Care Teams Mobile Ui/Ux Designer Relationship Specialty Start Date End Date [place] George DO PCP - General 11/21/99 04/22/25 [place] George DO [address] [place] [address] PCP - General Internal Medicine 04/23/25 documented as of this encounter
--- OUTSIDE RECORDS SUMMARY | 2025-08-19 13:35 | XMS_ITS | Encounter Summary ---
Author Organization [facility] Address [address] [place] [address] Phone Care Team Providers Care Shoemaker Apprentice Name Role Phone [place] George DO Primary Care Provider [phone] [place] George DO Primary Care Provider [phone] Encounter Details Date Type Department Care Team (Late st Contact Info) Description 09/18/[address] [facility] [address] [place] [address] Conversion, Onbase Social History Tobacco Use Types [...] Office Visit [facility] [address] [address] Michael Mullen MD 703 [facility] 2, Last 250 [place] [address] Scheduled Orders Name Type Priority Associated Diagnoses Orde r Schedule OUTSIDE LAB SCAN Lab Ordered: 09/18/2020 documented as of this encounter Visit Diagnoses Not on filedocumented in this encounter Care Teams Shoemaker Apprentice Relationship Specialty Start Date End Date [place] George DO PCP - General 11/21/99 04/22/25 [place] George DO [address] [place] [address] PCP - General Internal Medicine 04/23/25 documented as of this encounter
--- OUTSIDE RECORDS SUMMARY | 2025-08-19 13:35 | XMS_ITS | Encounter Summary ---
Author Organization [facility] Address [address] [place] [address] Phone Care Team Providers Care Director Asset Name Role Phone [place] George DO Primary Care Provider [phone] [place] George DO Primary Care Provider [phone] Encounter Details Date Type Department Care Team (Late st Contact Info) Description 01/05/2022 Orders Only [facility] [address] [place] [address] Conversion, Onbase Social History Tobacco Use Types [...] Description 12/18/2025 3:10 PM EST Office Visit [facility] 703 [facility] [address] [place] [address] Michael Mullen MD 703 [facility] 2, Last [address] [place] [address] Scheduled Orders Name Type Priority Associated Diagnoses Orde r Schedule OUTSIDE LAB SCAN Lab Ordered: 01/05/2022 documented as of this encounter Visit Diagnoses Not on filedocumented in this encounter Care Teams Director Asset Relationship Specialty Start Date End Date [place] George DO PCP - General 11/21/99 04/22/25 [place] George DO [address] [place] [address] PCP - General Internal Medicine 04/23/25 documented as of this encounter
--- OUTSIDE RECORDS SUMMARY | 2025-08-19 13:35 | XMS_ITS | Encounter Summary ---
Author Organization [facility] Address [address] [place] [address] Phone Care Team Providers Care Assembler Truck Trailer Name Role Phone [place] George DO Primary Care Provider [phone] [place] George DO Primary Care Provider [phone] Encounter Details Date Type Department Care Team (Late st Contact Info) Description 02/25/2021 Orders Only [facility] [address] [place] [address] Conversion, Onbase Social History Tobacco Use Types [...] Description 12/18/2025 3:10 PM EST Office Visit [facility] 703 [facility] 250 [place] [address] Michael Mullen MD 703 [facility] 2, Last 250 [place] [address] Scheduled Orders Name Type Priority Associated Diagnoses Orde r Schedule OUTSIDE LAB SCAN Lab Ordered: 02/25/2021 documented as of this encounter Visit Diagnoses Not on filedocumented in this encounter Care Teams Assembler Truck Trailer Relationship Specialty Start Date End Date [place] George DO PCP - General 11/21/99 04/22/25 [place] George DO [address] [place] [address] PCP - General Internal Medicine 04/23/25 documented as of this encounter
--- OUTSIDE RECORDS SUMMARY | 2025-08-19 13:35 | XMS_ITS | Encounter Summary ---
Author Organization [facility] Address [address] [place] [address] Phone Care Team Providers Care Jacket Preparer Name Role Phone [place] George DO Primary Care Provider [phone] [place] George DO Primary Care Provider [phone] Encounter Details Date Type Department Care Team (Late st Contact Info) Description 12/13/2024 Scanned Document [facility] [address] [place] [phone] Scanning, Generic Provider Social History Tobacco Use [...] Description 12/18/2025 3:10 PM EST Office Visit [facility] [address] [address] Michael Mullen MD 703 [facility] 2, [facility] 250 [place] [address] documented as of this encounter Procedures Procedure Name Priority Date/Time Associated Diagnosis Comments OUTSIDE LAB SCAN 12/13/2024 documented in this encounter Results * OUTSIDE LAB SCAN (12/13/2024) Narrative 12/13/2024 Ordered by an unspecified provider. us Generic Provider Scanning OUTSIDE SCAN Final Result documented in this encounter Visit Diagnoses Not on filedocumented in this encounter Additional Health Concerns Assessment Noted Time A fall risk assessment has been complete d for the patient 10/25/2024 3:01 PM EST documented as of this encounter Care Teams Jacket Preparer Relationship Specialty Start Date End Date [place] George DO PCP - General 11/21/99 04/22/25 [place] George DO [address] [place] [address] PCP - General Internal Medicine 04/23/25 documented as of this encounter
--- OUTSIDE RECORDS SUMMARY | 2025-08-19 13:35 | XMS_ITS | Encounter Summary ---
Author Organization [facility] Address [address] [place] [address] Phone Care Team Providers Care Nutrition And Dietetics Instructor Name Role Phone [place] George DO Primary Care Provider [phone] [place] George DO Primary Care Provider [phone] Encounter Details Date Type Department Care Team (Late st Contact Info) Description 05/22/2021 Orders Only [facility] [address] [place] [address] Conversion, Onbase Social History Tobacco Use Types [...] EST Office Visit [facility] 703 [facility] 250 [place] [address] Michael Mullen MD 703 [facility] 2, Last [address] [place], [place] [address] Scheduled Orders Name Type Priority Associated Diagnoses Orde r Schedule OUTSIDE LAB SCAN Lab Ordered: 05/22/2021 OUTSIDE LAB SCAN Lab Ordered: 05/22/2021 documented as of this encounter Visit Diagnoses Not on filedocumented in this encounter Care Teams Nutrition And Dietetics Instructor Relationship Specialty Start Date End Date [place] George DO PCP - General 11/21/99 04/22/25 [place] George DO [address] [place] [address] PCP - General Internal Medicine 04/23/25 documented as of this encounter
--- OUTSIDE RECORDS SUMMARY | 2025-08-19 13:35 | XMS_ITS | Encounter Summary ---
Author Organization [facility] Address [address] [place] [address] Phone Care Team Providers Care Ironworker Name Role Phone [place] George DO Primary Care Provider [phone] [place] George DO Primary Care Provider [phone] Encounter Details Date Type Department Care Team (Late st Contact Info) Description 12/17/2021 Orders Only [facility] [address] [place] [address] Conversion, Onbase Social History Tobacco Use Types [...] Description 12/18/2025 3:10 PM EST Office Visit [facility] 703 [facility] 250 [place] [address] Michael Mullen MD 703 [facility] 2, Last 250 [place] [address] Scheduled Orders Name Type Priority Associated Diagnoses Orde r Schedule OUTSIDE LAB SCAN Lab Ordered: 12/17/2021 documented as of this encounter Visit Diagnoses Not on filedocumented in this encounter Care Teams Ironworker Relationship Specialty Start Date End Date Modet[place] George DO PCP - General 11/21/99 04/22/25 [place] George DO [address] [place] [address] PCP - General Internal Medicine 04/23/25 documented as of this encounter
--- OUTSIDE RECORDS SUMMARY | 2025-08-19 13:35 | XMS_ITS | Encounter Summary ---
Author Organization [facility] Address [address] [place] [address] Phone Care Team Providers Care Vendor Quality Supervisor Name Role Phone [place] George DO Primary Care Provider [phone] [place] George DO Primary Care Provider [phone] Encounter Details Date Type Department Care Team (Late st Contact Info) Description 07/25/2019 Orders Only [facility] [address] [place] [address] Conversion, Onbase Social History Tobacco Use Types [...] Description 12/18/2025 3:10 PM EST Office Visit [facility] [address] [address] Michael Mullen MD 703 [facility] 2, Last 250 [place] [address] Scheduled Orders Name Type Priority Associated Diagnoses Orde r Schedule OUTSIDE LAB SCAN Lab Ordered: 07/25/2019 documented as of this encounter Visit Diagnoses Not on filedocumented in this encounter Care Teams Vendor Quality Supervisor Relationship Specialty Start Date End Date [place] George DO PCP - General 11/21/99 04/22/25 [place] George DO [address] [place] [address] PCP - General Internal Medicine 04/23/25 documented as of this encounter
--- OUTSIDE RECORDS SUMMARY | 2025-08-19 13:35 | XMS_ITS | Encounter Summary ---
Author Organization [facility] Address [address] [place] [address] Phone Care Team Providers Care Cloth Hauler Name Role Phone [place] George DO Primary Care Provider [phone] [place] George DO Primary Care Provider [phone] Encounter Details Date Type Department Care Team (Late st Contact Info) Description 07/29/2020 Orders Only [facility] [address] [place] [address] Conversion, Onbase Social History Tobacco Use Types [...] Description 12/18/2025 3:10 PM EST Office Visit [facility] [address] [address] Michael Mullen MD 703 [facility] 2, Last 250 [place] [address] Scheduled Orders Name Type Priority Associated Diagnoses Orde r Schedule OUTSIDE LAB SCAN Lab Ordered: 07/29/2020 documented as of this encounter Visit Diagnoses Not on filedocumented in this encounter Care Teams Cloth Hauler Relationship Specialty Start Date End Date [place] George DO PCP - General 11/21/99 04/22/25 [place] George DO [address] [place] [address] PCP - General Internal Medicine 04/23/25 documented as of this encounter
--- OUTSIDE RECORDS SUMMARY | 2025-08-19 13:35 | XMS_ITS | Encounter Summary ---
Author Organization [facility] Address [address] [place] [address] Phone Care Team Providers Care Stretcher Leveler Operator Name Role Phone [place] George DO Primary Care Provider [phone] [place] George DO Primary Care Provider [phone] Encounter Details Date Type Department Care Team (Late st Contact Info) Description 04/30/2020 Orders Only [facility] [address] [place] [address] Conversion, Onbase Social History Tobacco Use Types [...] Office Visit [facility] [address] [address] Michael Mullen MD 703 [facility] 2, Last 250 [place] [address] Scheduled Orders Name Type Priority Associated Diagnoses Orde r Schedule OUTSIDE LAB SCAN Lab Ordered: 04/30/2020 documented as of this encounter Visit Diagnoses Not on filedocumented in this encounter Care Teams Stretcher Leveler Operator Relationship Specialty Start Date End Date [place] George DO PCP - General 11/21/99 04/22/25 [place] George DO [address] [place] [address] PCP - General Internal Medicine 04/23/25 documented as of this encounter
--- OUTSIDE RECORDS SUMMARY | 2025-08-19 13:35 | XMS_ITS | Encounter Summary ---
Author Organization [facility] Address [address] [place] [address] Phone Care Team Providers Care Replacer Name Role Phone [place] George DO Primary Care Provider [phone] [place] George DO Primary Care Provider [phone] Encounter Details Date Type Department Care Team (Late st Contact Info) Description 03/19/2020 Orders Only [facility] [address] [place] [address] Conversion, Onbase Social History Tobacco Use Types [...] EST Office Visit [facility] [address] [address] Michael Mullen MD 703 [facility] 2, Last 250 [place] [address] Scheduled Orders Name Type Priority Associated Diagnoses Orde r Schedule OUTSIDE LAB SCAN Lab Ordered: 03/19/2020 documented as of this encounter Visit Diagnoses Not on filedocumented in this encounter Care Teams Replacer Relationship Specialty Start Date End Date [place] George DO PCP - General 11/21/99 04/22/25 [place] George DO [address] [place] [address] PCP - General Internal Medicine 04/23/25 documented as of this encounter
--- OUTSIDE RECORDS SUMMARY | 2025-08-19 13:35 | XMS_ITS | Encounter Summary ---
Author Organization [facility] Address [address] [place] [address] Phone Care Team Providers Care Knitting Machine Tender Name Role Phone Modesto George DO Primary Care Provider [phone] Modesto George DO Primary Care Provider [phone] Encounter Details Date Type Department Care Team (Late st Contact Info) Description 08/12/2021 Orders Only [facility] [address] [place] [address] Conversion, Onbase Social History Tobacco Use Types [...] Description 12/18/2025 3:10 PM EST Office Visit [facility] 703 [facility] 250 [place] [address] Michael Mullen MD 703 [facility] 2, Last [address] [place], [place] [id number] Scheduled Orders Name Type Priority Associated Diagnoses Orde r Schedule OUTSIDE LAB SCAN Lab Ordered: 08/12/2021 OUTSIDE LAB SCAN Lab Ordered: 08/12/2021 documented as of this encounter Visit Diagnoses Not on filedocumented in this encounter Care Teams Knitting Machine Tender Relationship Specialty Start Date End Date Modesto George DO PCP - General 11/21/99 04/22/25 Modesto George DO [address] [place] [address] PCP - General Internal Medicine 04/23/25 documented as of this encounter
--- OUTSIDE RECORDS SUMMARY | 2025-08-19 13:35 | XMS_ITS | Encounter Summary ---
Author Organization [facility] Address [address] [place] [address] Phone Care Team Providers Care Food Expeditor Name Role Phone Modesto George DO Primary Care Provider [phone] Modesto George DO Primary Care Provider [phone] Encounter Details Date Type Department Care Team (Late st Contact Info) Description 05/21/2021 Orders Only [facility] LE[facility]Y [address] [place] [address] Conversion, Onbase Social History Tobacco Use Types [...] Description 12/18/2025 3:10 PM EST Office Visit [facility] 703 [facility] 250 [place] [address] Michael Mullen MD 703 [facility] 2, Last [address] [place], [place] [id number] Scheduled Orders Name Type Priority Associated Diagnoses Orde r Schedule OUTSIDE LAB SCAN Lab Ordered: 05/21/2021 documented as of this encounter Visit Diagnoses Not on filedocumented in this encounter Care Teams Food Expeditor Relationship Specialty Start Date End Date Modesto George DO PCP - General 11/21/99 04/22/25 Modesto George DO [address] [place] [address] PCP - General Internal Medicine 04/23/25 documented as of this encounter
--- OUTSIDE RECORDS SUMMARY | 2025-08-19 13:35 | XMS_ITS | Encounter Summary ---
Author Organization [facility] Address [address] [place] [address] Phone Care Team Providers Care Ground Source Heat Pump Technician Name Role Phone Modesto George DO Primary Care Provider [phone] Modesto George DO Primary Care Provider Encounter Details Date Type Department Care Team (Late st Contact Info) Description 01/21/2021 Orders Only [facility] LEGACY [address] [place] [address] Conversion, Onbase Social History Tobacco Use Types [...] Description 12/18/2025 3:10 PM EST Office Visit [facility] 703 [facility] 250 [place] [address] Michael Mullen MD 703 [facility] 2, Last 250 [place], [place] [id number] Scheduled Orders Name Type Priority Associated Diagnoses Orde r Schedule OUTSIDE LAB SCAN Lab Ordered: 01/21/2021 documented as of this encounter Visit Diagnoses Not on filedocumented in this encounter Care Teams Ground Source Heat Pump Technician Relationship Specialty Start Date End Date Modesto George DO PCP - General 11/21/99 04/22/25 Modesto George DO [address] [place] [address] PCP - General Internal Medicine 04/23/25 documented as of this encounter
--- OUTSIDE RECORDS SUMMARY | 2025-08-19 13:35 | XMS_ITS | Encounter Summary ---
Author Organization [facility] Address [address] [place] [address] Phone Care Team Providers Care Doorkeeper Name Role Phone Modesto George DO Primary Care Provider [phone] Modesto George DO Primary Care Provider [phone] Encounter Details Date Type Department Care Team ([facility] Contact Info) Description 10/25/2024 Scanned Document [facility] [address] [place] [id number] Scanning, Generic Provider Social History Tobacco Use Types Packs/Day Years Used Date Smoking Tobacco: Former Cigarettes Alcohol Use Standard Drinks/Week Comments Yes 0 (1 standard drink = 0.6 oz pur e alcohol) occasional Sex and Gender Information Value Date Recorded Sex Assigned at Not on file Legal Sex Male 9:25 PM EST Gender Identity Not on file Sexual Orientation Not on file COVID-19 Exposure Response Date Recorded In the last 10 days, have yo u been in contact with someone who was confirmed or suspected to have Coronavirus/COVID-19? No / Unsure 10/25/2024 2:51 PM EST documented as of this encounter Functional Status * BP Answer Date of Assessment Author 100/64 10/25/2024 3:08 PM EST Jose Teague RN * Pulse Answer Date of Assessment Author 66 10/25/2024 3:08 PM Jose Staton RN * Communicable Disease Screening Question Answer Date of Assessment Author Do you have any of the following new or worsening symptoms? None of these 10/25/2024 2:51 PM EST Gloria Fonseca documented as of this encounter Plan of Treatment Upcoming Encounters Date Type Department Care Team ([facility] Contact Info) Description 12/18/2025 3:10 PM EST Office Visit [facility] 703 [facility] Last [address] [place] [address] Michael Mullen MD [address], Last [address] [place] [address] documented as of this encounter Procedures Procedure Name Priority Date/Time Associated Diagnosis Comments OUTSIDE LAB SCAN 10/25/2024 documented in this encounter Results * OUTSIDE LAB SCAN (10/25/2024) Narrative 10/25/2024 Ordered by an unspecified provider. us Generic Provider Scanning OUTSIDE SCAN Final Result documented in this encounter Visit Diagnoses Not on filedocumented in this encounter Additional Health Concerns Assessment Noted Time A fall risk assessment has been complete d for the patient 10/25/2024 3:01 PM EST documented as of this encounter Care Teams Doorkeeper Relationship Specialty Start Date End Date Modesto George DO PCP - General 11/21/99 04/22/25 Modesto George DO [address] [place] [address] PCP - General Internal Medicine 04/23/25 documented as of this encounter
--- OUTSIDE RECORDS SUMMARY | 2025-08-19 13:35 | XMS_ITS | Encounter Summary ---
Author Organization [facility] Address [address] [place] [address] Phone Care Team Providers Care Sales Representative Door To Door Name Role Phone Modesto George DO Primary Care Provider [phone] Modesto George DO Primary Care Provider [phone] Encounter Details Date Type Department Care Team (Late st Contact Info) Description 06/29/2023 Orders Only [facility] LE[facility] [address] [place] [address] Conversion, Onbase Social History Tobacco Use Types [...] Office Visit [facility] 703 [facility] 250 [place] [address] Michael Mullen MD 703 [facility] 2, Last [address] [place] [address] Scheduled Orders Name Type Priority Associated Diagnoses Orde r Schedule OUTSIDE LAB SCAN Lab Ordered: 06/29/2023 documented as of this encounter Visit Diagnoses Not on filedocumented in this encounter Care Teams Sales Representative Door To Door Relationship Specialty Start Date End Date Modesto George DO PCP - General 11/21/99 04/22/25 Modesto George DO [address] [place] [address] PCP - General Internal Medicine 04/23/25 documented as of this encounter
--- OUTSIDE RECORDS SUMMARY | 2025-08-19 13:36 | XMS_ITS | Encounter Summary ---
Author Organization [facility] Address [address] [place] [address] Phone Care Team Providers Care Room Maid Name Role Phone Modesto George DO Primary Care Provider [phone] Modesto George DO Primary Care Provider [phone] Encounter Details Date Type Department Care Team (Late st Contact Info) Description 02/22/2023 Orders Only [email or web address] LEGACY [address] [place] [address] Conversion, Onbase Social History Tobacco Use Types [...] Description 12/18/2025 3:10 PM EST Office Visit [facility] 703 [facility] 250 [place] [address] Michael Mullen MD 703 [facility] 2, Last [address] [place] [address] Scheduled Orders Name Type Priority Associated Diagnoses Orde r Schedule OUTSIDE LAB SCAN Lab Ordered: 02/22/2023 documented as of this encounter Visit Diagnoses Not on filedocumented in this encounter Care Teams Room Maid Relationship Specialty Start Date End Date Modesto George DO PCP - General 11/21/99 04/22/25 Modesto George DO [address] [place] [address] PCP - General Internal Medicine 04/23/25 documented as of this encounter
--- OUTSIDE RECORDS SUMMARY | 2025-08-19 13:36 | XMS_ITS | Clinical Summary ---
Author Organization [facility] Address [address] [place] [address] Phone Care Team Providers Care Roll Up Machine Operator Name Role Phone Modesto George DO Primary Care Provider [phone] Allergies Active Allergy Reactions Criticality Noted Date Comments Penicillins Hives,Unknown High 10/06/2023 Medications allopurinol (Zyloprim) 300 mg tablet Take 1 tablet (300 mg) by mouth once daily. Active citalopram (CeleXA) 20 mg tablet Take 1 tablet (20 mg) by mouth once daily. Active nitroglycerin (Nitrostat) 0.[address] 1 tablet (0.4 mg) under the tongue every 5 minutes if needed for chest pain. Active potassium bicarbonate (K-Lyte) 25 mEq effervescent tablet Take 1 tablet (25 mEq) by mouth 2 times a day. Active warfarin (Coumadin) 4 mg tablet Take 1 tablet (4 mg) by mouth. Take one tablet by mouth as directed by [facility] Active semaglutide (Ozempic) 0.25 mg or 0.5 mg(2 mg/1.5 mL) pen injector Inject 0.25 mg under the skin 1 (one) time per week. Active torsemide (Demadex) 10 mg tabletIndications: Essential hypertension, benign TAKE 1 TABLET BY MOUTH ONCE DAILY 90 tablet 3 11/22/19 25 Active pravastatin (Pravachol) 40 mg tabletIndications: Mixed hyperlipidemia TAKE 1 TABLET BY MOUTH ONCE DAILY 90 tablet 3 11/22/19 25 Active Lantus U-100 Insulin 100 unit/mL injection INJECT 20 UNITS SUBCUTANEOUS EVERY NIGHT AT BEDTIME 06/22/20 24 Active cholecalciferol (Vitamin D3) 25 mcg (1,000 units) capsule Take 1 capsule (25 mcg) by mouth once daily. Active cyanocobalamin (Vitamin B-12) 1,000 mcg tablet Take 1 tablet (1,000 mcg) by mouth once daily. Active lisinopriL-hydroch lorothiazide 10-12.5 mg tabletIndications: Essential hypertension, benign Take 1 tablet by mouth once daily. 90 tablet 3 05/07/20 25 026 Active Active Problems Problem Noted Date Diagnosed Date QUETA (obstructive sleep apnea) 10/25/2024 Former smoker 10/25/2024 BMI 45.0-49.9, adult (Multi) 04/23/2024 Atherosclerosis of coronary artery of [place] heart without angina pectoris 10/06/2023 Complete heart block 10/06/2023 Diabetes mellitus (Multi) 10/06/2023 Edema 10/06/2023 Essential hypertension, benign 10/06/2023 Facial laceration 10/06/2023 History of sepsis 10/06/2023 Hyperlipidemia 10/06/2023 Injury of head 10/06/2023 Neck pain 10/06/2023 Pacemaker 10/06/2023 Permanent atrial fibrillation (Multi) 10/06/2023 SOB (shortness of breath) on exertion 10/06/2023 Syncope 10/06/2023 Immunizations Immunization Administration Dates Next Due DTP 02/02/2022 Flu vaccine, trivalent, pres ervative free, HIGH-DOSE, age 65y+ (Fluzone) 08/22/2022 Influenza, Unspecified 08/07/2021,2018,08/21/2018,11/21 Pfizer Purple Cap SARS-CoV-2 08/22/2022 Pneumococcal polysaccharide vaccine, 23-valent, age 2 years and older (PNEUMOVAX 23) 11/21/2016 Tdap vaccine, age 7 year and older (BOOSTRIX, ADACEL) 08/24/2022,02/02/2022,04/29/2019 Family History Medical History Relation Name Comments Diabetes Father Lymphoma Father CABG Mother Diabetes Mother Heart failure Mother Relation Name Status Comments Father Mother Social History Tobacco Use Types Packs/Day Years Used Date Smoking Tobacco: Former Cigarettes Smokeless Tobacco: Never Tobacco Cessation:Counseling Given: Not Answered Alcohol Use Standard Drinks/Week Comments Yes 0 (1 standard drink = 0.6 oz pur e alcohol) occasional Sex and Gender Information Value Date Recorded Sex Assigned at Not on file Legal Sex Male 9:25 PM EST Gender Identity Not on file Sexual Orientation Not on file Last Filed Vital Signs Vital Sign Reading Time Taken Comments Blood Pressure 96/56 05/07/2025 3:42 PM EDT Pulse 60 05/07/2025 3:42 PM EDT Temperature 36.4 C (97.6 F) 07/09/2022 9:59 AM EDT Respiratory Rate - - Oxygen Saturation - - Inhaled Oxygen Concentration - - Weight 133 kg (293 lb) 05/07/2025 3:42 PM EDT Height 170.2 cm (5' 7 ) 05/07/2025 3:42 PM EDT Body Mass Index 45.89 05/07/2025 3:42 PM EDT Plan of Treatment Upcoming Encounters Date Type Department Care Team (Late st Contact Info) Description 12/18/2025 3:10 PM EST Office Visit [facility] [address] [id number] Michael Mullen MD [facility]03 [facility], [facility] 250 [place] [address] Health Maintenance Due Date Last Done Comments Creatinine Level 1945 Diabetes: Hemoglobin A1C 1945 Diabetes: Urine Protein Screening 1945 Lipid Panel 1945 Potassium Level 1945 Hepatitis C Screening 1963 Zoster Vaccines (1 of 2) 1995 Pneumococcal Vaccine (2 of 2 - PCV) 11/21/2017 11/21/2016 RSV High Risk: (Elderly (60+) or Population) (1 - 1-dose 75+ series) 2020 Diabetes: Retinopathy Screening 04/11/2025 04/11/2023, 02/09/2021, 10/02/2019, Additional history exists Echocardiogram 06/19/2025 06/19/2024, 04/22, 07/01/2022 COVID-19 Vaccine (2 - season) 2025 08/22/2022 Influenza Vaccine (#1) 2025 , 08/07/2021, 08/21/2019, Additional history exists Medicare Annual Wellness Visit (AWV) 01/31/2026 01/30/2025, 12/26/2023, 10/28/2022, Additional history exists DTaP/Tdap/Td Vaccines (6 - Td or Tdap) 08/24/2032 08/24/2022, 02/02/2022, 02/02/2022, Additional history exists HIB Vaccines Aged Out No longer eligi ble based on patient's age to complete this topic HPV Vaccines Aged Out No longer eligi ble based on patient's age to complete this topic Hepatitis A Vaccines Aged Out No long er eligible based on patient's age to complete this topic Hepatitis B Vaccines Aged Out No long er eligible based on patient's age to complete this topic IPV Vaccines Aged Out No longer eligi ble based on patient's age to complete this topic Meningococcal Vaccine Aged Out No estrella samson eligible based on patient's age to complete this topic Rotavirus Vaccines Aged Out No longer eligible based on patient's age to complete this topic Procedures Procedure Name Priority Date/Time Associated Diagnosis Comments ECHOCARDIOGRAM 06/19/2024 from Last 3 Months or Most Recently Relevant to Health Maintenance Results * Echocardiogram (06/19/2024) Narrative 06/19/2024 Ordered by an unspecified provider. us Generic Provider Scanning CV ECHO PROCEDURES Fin al Result from Last 3 Months or Most Recently Relevant to Health Maintenance Insurance MEDICARE PART A AND B [facility] MEDICARE SUPPLEMENT MEDICARE PART A AND B [facility] MEDICARE SUPPLEMENT Care Teams Roll Up Machine Operator Relationship Specialty Start Date End Date Modesto George DO [address] [place] [address] PCP - General Internal Medicine 04/23/25
--- OUTSIDE RECORDS SUMMARY | 2025-08-19 13:36 | XMS_ITS | Encounter Summary ---
Author Organization [facility] Address [address] [place] [address] Phone Care Team Providers Care Telemetry Technician Name Role Phone Modesto George DO Primary Care Provider [phone] Modesto George DO Primary Care Provider [phone] Encounter Details Date Type Department Care Team (Late st Contact Info) Description 12/19/2019 Orders Only [facility] LEGACY [address] [place] [address] Conversion, Onbase Social History Tobacco Use Types [...] 3:10 PM EST Office Visit [facility] [address] [address] Michael Mullen MD 703 [facility] 2, Last [address] [place] [address] Scheduled Orders Name Type Priority Associated Diagnoses Orde r Schedule OUTSIDE LAB SCAN Lab Ordered: 12/19/2019 documented as of this encounter Visit Diagnoses Not on filedocumented in this encounter Care Teams Telemetry Technician Relationship Specialty Start Date End Date Modesto George DO PCP - General 11/21/99 04/22/25 Modesto George DO [address] [place] [address] PCP - General Internal Medicine 04/23/25 documented as of this encounter
--- OUTSIDE RECORDS SUMMARY | 2025-08-19 13:36 | XMS_ITS | Encounter Summary ---
Author Organization [facility] Address [address] [place] [address] Phone Care Team Providers Care Sap Portal Developer Name Role Phone Modesto George DO Primary Care Provider [phone] Modesto George DO Primary Care Provider [phone] Encounter Details Date Type Department Care Team (Late st Contact Info) Description 05/05/2023 Orders Only [facility] LE[facility] [address] [place] [address] Conversion, Onbase Social History Tobacco Use Types [...] Description 12/18/2025 3:10 PM EST Office Visit [facility] 703 [facility] 250 [place] [address] Michael Mullen MD 703 [facility] 2, Last [address] [place], [place] [address] Scheduled Orders Name Type Priority Associated Diagnoses Orde r Schedule OUTSIDE LAB SCAN Lab Ordered: 05/05/2023 documented as of this encounter Visit Diagnoses Not on filedocumented in this encounter Care Teams Sap Portal Developer Relationship Specialty Start Date End Date Modesto George DO PCP - General 11/21/99 04/22/25 Modesto George DO [address] [place] [address] PCP - General Internal Medicine 04/23/25 documented as of this encounter
--- OUTSIDE RECORDS SUMMARY | 2025-08-19 13:36 | XMS_ITS | Encounter Summary ---
Author Organization [facility] Address [address] [place] [address] Phone Care Team Providers Care Director School Of Nursing Name Role Phone Modesto Goerge DO Primary Care Provider [phone] Modesto George DO Primary Care Provider [phone] Encounter Details Date Type Department Care Team (Late st Contact Info) Description 11/28/2019 Orders Only [facility] LEGACY [address] [place] [address] Conversion, Onbase Social History Tobacco Use Types [...] Description 12/18/2025 3:10 PM EST Office Visit [facility] [address] [address] Michael Mullen MD 703 [facility] 2, Last 250 [place] [address] Scheduled Orders Name Type Priority Associated Diagnoses Orde r Schedule OUTSIDE LAB SCAN Lab Ordered: 11/28/2019 documented as of this encounter Visit Diagnoses Not on filedocumented in this encounter Care Teams Director School Of Nursing Relationship Specialty Start Date End Date Modesto George DO PCP - General 11/21/99 04/22/25 Modesto George DO [address] [place] [address] PCP - General Internal Medicine 04/23/25 documented as of this encounter
--- OUTSIDE RECORDS SUMMARY | 2025-08-19 13:36 | XMS_ITS | Encounter Summary ---
Author Organization [facility] Address [address] [place] [address] Phone Care Team Providers Care Bridge Attacher Name Role Phone Modesto George DO Primary Care Provider [phone] Modesto George DO Primary Care Provider [phone] Encounter Details Date Type Department Care Team (Late st Contact Info) Description 11/04/2022 Orders Only [facility]Y [address] [place] [address] Conversion, Onbase Social History Tobacco Use Types [...] Visit [facility] 703 [facility] 250 [place] [address] Michael Mullen MD 703 [facility] 2, Last [address] [place] [address] Scheduled Orders Name Type Priority Associated Diagnoses Orde r Schedule OUTSIDE LAB SCAN Lab Ordered: 11/04/2022 documented as of this encounter Visit Diagnoses Not on filedocumented in this encounter Care Teams Bridge Attacher Relationship Specialty Start Date End Date Modesto George DO PCP - General 11/21/99 04/22/25 Modesto George DO [address] [place] [address] PCP - General Internal Medicine 04/23/25 documented as of this encounter
--- OUTSIDE RECORDS SUMMARY | 2025-08-19 13:36 | XMS_ITS | Encounter Summary ---
Author Organization [facility] Address [address] [place] [address] Phone Care Team Providers Care Disaster Recovery Manager Name Role Phone Modesto George DO Primary Care Provider [phone] Modesto George DO Primary Care Provider [phone] Encounter Details Date Type Department Care Team (Late st Contact Info) Description 01/22/2020 Orders Only [facility] [address] [place] [address] Conversion, Onbase Social History Tobacco Use Types [...] Description 12/18/2025 3:10 PM EST Office Visit [facility] [address] [address] Michael Mullen MD 703 [facility] 2, Last 250 [place] [address] Scheduled Orders Name Type Priority Associated Diagnoses Orde r Schedule OUTSIDE LAB SCAN Lab Ordered: 01/22/2020 documented as of this encounter Visit Diagnoses Not on filedocumented in this encounter Care Teams Disaster Recovery Manager Relationship Specialty Start Date End Date Modesto George DO PCP - General 11/21/99 04/22/25 Modesto George DO [address] [place] [address] PCP - General Internal Medicine 04/23/25 documented as of this encounter
--- OUTSIDE RECORDS SUMMARY | 2025-08-19 13:36 | XMS_ITS | Encounter Summary ---
Author Organization [facility] Address [address] [place] [address] Phone Care Team Providers Care Ceo Na Name Role Phone Modesto George DO Primary Care Provider [phone] Modesto George DO Primary Care Provider [phone] Encounter Details Date Type Department Care Team (Late st Contact Info) Description 01/13/2023 Orders Only [facility] LE[facility] [address] [place] [address] Conversion, Onbase Social History Tobacco Use Types [...] Description 12/18/2025 3:10 PM EST Office Visit [facility] 703 [facility] 250 [place] [address] Michael Mullen MD 703 [facility] 2, Last 250 [place] [address] Scheduled Orders Name Type Priority Associated Diagnoses Orde r Schedule OUTSIDE LAB SCAN Lab Ordered: 01/13/2023 documented as of this encounter Visit Diagnoses Not on filedocumented in this encounter Care Teams Ceo Na Relationship Specialty Start Date End Date Modesto George DO PCP - General 11/21/99 04/22/25 Modesto George DO [address] [place] [address] PCP - General Internal Medicine 04/23/25 documented as of this encounter
--- OUTSIDE RECORDS SUMMARY | 2025-08-19 13:36 | XMS_ITS | Encounter Summary ---
Author Organization [facility] Address [address] [place] [address] Phone Care Team Providers Care Cabbage Salter Name Role Phone Modesto George DO Primary Care Provider [phone] Modesto George DO Primary Care Provider [phone] Encounter Details Date Type Department Care Team (Late st Contact Info) Description 10/24/2019 Orders Only [facility] [address] [place] [address] Conversion, Onbase Social History Tobacco Use Types [...] 3:10 PM EST Office Visit [facility] [address] [address] Michael Mullen MD 703 [facility] 2, [address] [place] [address] Scheduled Orders Name Type Priority Associated Diagnoses Orde r Schedule OUTSIDE LAB SCAN Lab Ordered: 10/24/2019 documented as of this encounter Visit Diagnoses Not on filedocumented in this encounter Care Teams Cabbage Salter Relationship Specialty Start Date End Date Modesto George DO PCP - General 11/21/99 04/22/25 Modesto George DO [address] [place] [address] PCP - General Internal Medicine 04/23/25 documented as of this encounter
--- OUTSIDE RECORDS SUMMARY | 2025-08-19 13:36 | XMS_ITS | Encounter Summary ---
Author Organization [facility] Address [address] [place] [address] Phone Care Team Providers Care Public Address Technician Name Role Phone Modesto George DO Primary Care Provider [phone] Modesto George DO Primary Care Provider [phone] Encounter Details Date Type Department Care Team (Late st Contact Info) Description 12/16/2022 Orders Only [facility] [address] [place] [address] Conversion, Onbase Social History Tobacco Use Types [...] Description 12/18/2025 3:10 PM EST Office Visit [facility] 703 [facility] [address] [place] [address] Michael Mullen MD 703 [facility] 2, [address] [place] [address] Scheduled Orders Name Type Priority Associated Diagnoses Orde r Schedule OUTSIDE LAB SCAN Lab Ordered: 12/16/2022 documented as of this encounter Visit Diagnoses Not on filedocumented in this encounter Care Teams Public Address Technician Relationship Specialty Start Date End Date Modesto George DO PCP - General 11/21/99 04/22/25 Modesto George DO [address] [place] [address] PCP - General Internal Medicine 04/23/25 documented as of this encounter
--- OUTSIDE RECORDS SUMMARY | 2025-08-19 13:36 | XMS_ITS | Encounter Summary ---
Author Organization [facility] Address [address] [place] [address] Phone Care Team Providers Care Pavilion Cutter Name Role Phone Modesto George DO Primary Care Provider [phone] Modesto George DO Primary Care Provider [phone] Encounter Details Date Type Department Care Team (Late st Contact Info) Description 09/09/[address] [facility] [address] [place] [address] Conversion, Onbase Social History Tobacco Use Types [...] Description 12/18/2025 3:10 PM EST Office Visit [facility] 703 [facility] [address] [place] [address] Michael Mullen MD 703 [facility] 2, [address] [place] [address] Scheduled Orders Name Type Priority Associated Diagnoses Orde r Schedule OUTSIDE LAB SCAN Lab Ordered: 09/09/2022 documented as of this encounter Visit Diagnoses Not on filedocumented in this encounter Care Teams Pavilion Cutter Relationship Specialty Start Date End Date Modesto George DO PCP - General 11/21/99 04/22/25 Modesto George DO [address] [place] [address] PCP - General Internal Medicine 04/23/25 documented as of this encounter
--- OUTSIDE RECORDS SUMMARY | 2025-08-19 13:36 | XMS_ITS | Encounter Summary ---
Author Organization [facility] Address [address] [place] [address] Phone Care Team Providers Care Electric Power Line Repairer Name Role Phone Modesto George DO Primary Care Provider [phone] Modesto George DO Primary Care Provider [phone] Encounter Details Date Type Department Care Team (Late st Contact Info) Description 03/23/2023 Orders Only [facility] [address] [place] [address] Conversion, Onbase Social History Tobacco Use Types [...] Description 12/18/2025 3:10 PM EST Office Visit [facility] 703 [facility] [address] [place] [address] Michael Mullen MD 703 [facility] 2, [address] [place], [place] [id number] Scheduled Orders Name Type Priority Associated Diagnoses Orde r Schedule OUTSIDE LAB SCAN Lab Ordered: 03/23/2023 documented as of this encounter Visit Diagnoses Not on filedocumented in this encounter Care Teams Electric Power Line Repairer Relationship Specialty Start Date End Date Modesto George DO PCP - General 11/21/99 04/22/25 Modesto George DO [address] [place] [address] PCP - General Internal Medicine 04/23/25 documented as of this encounter
--- OUTSIDE RECORDS SUMMARY | 2025-08-19 13:36 | XMS_ITS | Clinical Summary ---
Author Organization [facility] Address [address] [place] [address] Care Team Providers Care Psychologist Clinical Name Role Phone Unavailable Primary Care Provider Unavailabl e Social History Tobacco Use Types Packs/Day Years Used Date Smoking Tobacco: Never Assessed Sex and Gender Information Value Date Recorded Sex Assigned at Not on file Legal Sex Male 8:33 PM EDT Gender Identity Not on file Sexual Orientation Not on file Plan of Treatment Not on file Insurance [employer]
--- OUTSIDE RECORDS SUMMARY | 2025-08-19 13:36 | XMS_ITS | Encounter Summary ---
Author Organization [facility] Address [address] [place] [address] Phone Care Team Providers Care Icer Hand Name Role Phone Modesto George DO Primary Care Provider [phone] Modesto George DO Primary Care Provider [phone] Encounter Details Date Type Department Care Team (Late st Contact Info) Description 05/15/2023 Orders Only [facility] [address] [place] [address] Conversion, Onbase Social History Tobacco Use Types [...] Description 12/18/2025 3:10 PM EST Office Visit [facility] 703 [facility] [address] [place] [address] Michael Mullen MD 703 [facility] 2, [address] [place] [address] Scheduled Orders Name Type Priority Associated Diagnoses Orde r Schedule OUTSIDE LAB SCAN Lab Ordered: 05/15/2023 documented as of this encounter Visit Diagnoses Not on filedocumented in this encounter Care Teams Icer Hand Relationship Specialty Start Date End Date Modesto George DO PCP - General 11/21/99 04/22/25 Modesto George DO [address] [place] [address] PCP - General Internal Medicine 04/23/25 documented as of this encounter
--- OUTSIDE RECORDS SUMMARY | 2025-08-19 13:36 | XMS_ITS | Encounter Summary ---
Author Organization [facility] Address [address] [place] [address] Phone Care Team Providers Care Title Curator Name Role Phone Modesto George DO Primary Care Provider [phone] Modesto George DO Primary Care Provider [phone] Encounter Details Date Type Department Care Team (Late st Contact Info) Description 09/12/2019 Orders Only [facility] [address] [place] [address] Conversion, Onbase Social History Tobacco Use Types [...] Description 12/18/2025 3:10 PM EST Office Visit [facility] [address] [address] Michael Mullen MD 703 [facility] 2, [address] [place] [address] Scheduled Orders Name Type Priority Associated Diagnoses Orde r Schedule OUTSIDE LAB SCAN Lab Ordered: 09/12/2019 documented as of this encounter Visit Diagnoses Not on filedocumented in this encounter Care Teams Title Curator Relationship Specialty Start Date End Date Modesto George DO PCP - General 11/21/99 04/22/25 Modesto George DO [address] [place] [address] PCP - General Internal Medicine 04/23/25 documented as of this encounter
== END 2025-08-19 13:30 | disposition home or self-care (01) ==
PROVIDERS: PCP Internal Medicine; Visit Provider Physician Assistant
DX: B35.1 Tinea unguium (principal); E11.22 Type 2 diabetes mellitus with diabetic chronic kidney disease; N18.9 Chronic kidney disease, unspecified; R09.89 Other specified symptoms and signs involving the circulatory and respiratory systems; L60.8 Other nail disorders
CPT/HCPCS: 11721

== ENCOUNTER 2025-08-21 04:31 | Outpatient (RCR) | payer MEDICARE, OTHER, SELFPAY | END 2025-09-20 23:59 | disposition home or self-care (01) | LOC: MM 04:31 | PROVIDERS: PCP Internal Medicine; Visit Provider Internal Medicine | DX: Z51.81 Encounter for therapeutic drug level monitoring (principal); Z79.01 Long term (current) use of anticoagulants; I48.91 Unspecified atrial fibrillation | CPT/HCPCS: 85610; G0463 ==

== ENCOUNTER 2025-09-09 16:11 | Outpatient (OUT) | payer MEDICARE, OTHER, SELFPAY ==
--- OUTSIDE RECORDS SUMMARY | 2025-09-09 16:17 | XMS_ITS | CCD ---
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 Name Role Phone PHYSICIAN, DEFAULT Unavailable Unavailable PHYSICIAN, DEFAULT Unavailable Unavailable Modesto Chavarria Unavailable Unavailable Unavailable Unavailable Unavailable DO Modesto Chavarria Primary Care Provider [phone] MD Lalito Silva Admit Provider MD Lalito [...] BALL, DR SALVADOR Primary Care Unavailable FAWWAD, RAYOMND H Attending Unavailable FAWWAD, RAYMOND H Admitting [...] Unavailable Ball, DO Salvador Primary Care Provider [phone] DO Ran Addison Emergency Provider MD Stalin Miranda Admit Provider MD Stalin Miranda Attending Provider [phone] Shira TOBIN, Dr. Lalito Savage Attending Unavailable Aura, Dr. Modesto Galan Primary Care Julia Chavarria, Dr. Modesto Galan Primary Care Julia Cameron, Dr. Milo Taylor Attending Cassi Chavarria, Dr. Modesto Galan Primary Care Julia Chavarria, Dr. Modesto Galan Primary Care Julia Chavarria, Dr. Modesto Galan Primary Care Julia Chavarria, Dr. Modesto Galan Primary [facility] [place] Julia Silva II, Dr. Lalito Savage Referring Unavailable Aura, Dr. Modesto Galan Primary Care Julia Silva II, Dr. Lalito Savage Attending Unavailable Aura, Dr. Modesto Galan Primary Care Julia Silva II, Dr. Lalito Savage Referring Unavailable Llaouinn II, Dr. Lalito Savage Attending Unavailable Shira II, Dr. Lalito Savage Attending Unavailable Lalouinn II, Dr. Lalito Savage Referring Unavailable Aura, Dr. Modesto Galan Primary Care Julia Chavarria, Dr. Modesto Galan Primary Care Julia Cameron, Dr. Milo Taylor Attending Cassi bindu Chavarria, Dr. Modesto Galan Primary Care Julia Chavarria, Dr. Modesto Galan Primary [facility] [place] Cassiyadiracheyanne michael Chavarria DO, Modesto Galan Primary Care Provider Modesto Chavarria DO Primary Care Provider DO Modesto Chavarria Primary Care Provider [phone] ALLYSON Soriano Attending Provider [phone] MD Lalito Silva Other Provider DO Domenico Betancourt Emergency Provider MD Stalin Cabezas Admit Provider MD Stalin Miranda Attending Provider DO Domenico Betancourt Emergency Provider MD Stalin Cabezas Admit Provider MD Stalin Miranda Attending Provider DO Modesto Chavarria Primary Care Provider Modesto Chavarria Primary Care Unavailable Lalito Silva Consulting Unavail able Marva Soriano Admitting Unavailable Marva Soriano Attending Unavailable Modesto Chavarria [facility] Unavailable Meredith Frost Consulting Unavailable Stalin Miranda Admitting Unavailab Stalin Cannon Attending Unavailab Constanza Contreras Consulting Unavailable Milo Cameron Consulting Unavailable Lalito Silva Consulting Unavail able Carri Marques Consulting Unavailable Prashanth Marshall Consulting Unavailab Isabell Lopez Consulting Unavailable Jillian Hector Consulting Unavailable Ej Mandujano Consulting Unavailab Rachel De Leon Consulting Unavailable Gretel Palma Consulting Unavailable Aura Modesto MEDINA E Primary Care Provider ACRRI MARQUES Attending Unavailable LALITO SILVA Referring Unavailable MODESTO CHAVARRIA Primary Care Unavailable TRABOULHARVEYI, MOURJAYNAF Attending Unavailable TRABYOONI, MOURHAF Referring Unavailable AURA MODESTO E Primary Care Unavailable Aura Modesto MEDINA Primary Care Provider Aura Modesto MEDINA Attending Provider [phone] Carlos Alberto GIBSON Attending Unavailable Trabyooni, Mourhaf Referring Unavailable Traboulssi, Mourjaynaf Attending Unavailable Trabburton, Mourhaf Admitting Unavailable Lalito Silva Referring Unavailable Lalito Silva Attending Unavailable Lalito Silva Admitting Unavailable Carlos Alberto GIBSON Attending Unavailable Allergies Allergy Classification Reported Allergen(s) Allergy Type Date of Onset Reaction(s) Facility metFORMIN (1 source) metFORMIN Drug Allergy 03-26-20 24 Unknown Reaction [facility] Penicillins (antibiotic) (4 sources) Penicillins Drug Allergy 10-06-20 23 Hives, Unknown [facility] (19 sources) Penicillins; Translations: [Penicillins] Allergy to drug (finding) 10-06-20 23 Hives, Unknown Reaction [facility] (5 sources) Penicillin; Translations: [penicillin G] Drug Allergy 03-07-20 22 [facility] (20 sources) Penicillin G Benzathine; Translations: [penicillin G benzathine] Drug allergy 03-26-20 24 Unknown, Unknown Reaction [facility] (1 source) Grass pollen Drug allergy (disorder) [facility] (1 source) house dust allergenic extract Drug Allergy [facility] (1 source) Penicillins Drug allergy (disorder) 04-08-20 14 [facility] (14 sources) metFORMIN Drug Allergy 03-26-20 24 Unknown, Unknown Reaction [facility] (8 sources) Albuterol *ANTIASTHMATIC AND BRONCHODILATOR AGENTS Propensity to adverse reactions Unknown [employer] [facility] Other (8 sources) Substance with penicillin structure and antibacterial mechanism of action (substance) Drug allergy Unknown [facility] [facility] Other (2 sources) Penicillins Drug Allergy 10-06-20 Hives, Unknown [facility] (1 source) metFORMIN Drug Allergy 11-20-20 [facility] (1 source) Penicillins Drug allergy (disorder) 11-20-20 [facility] (1 source) Penicillins Drug Allergy 10-06-20 Hives, Unknown [facility] (1 source) Dust; Translations: [Dust] Propensity to adverse reactions (disorder) [facility] (1 source) Penicillin; Translations: [penicillin] Drug Allergy [facility] (1 source) Pollen; Translations: [Pollen] Propensity to adverse reactions (disorder) [facility] Medications Current Medications Medication Drug Class(es) Dates Sig (Normalized) Sig (Original) 0.25 MG, 0.5 MG Dose 3 ML semaglutide 0.68 MG/ML Pen Injector [Ozempic] (3 sources) Start: 10-17-2023 Ozempic (0.25 or 0.5 MG/DOSE) 2 MG/3ML 0.25MG Subcutaneous weekly for 28 days Sep, Active allopurinol 300 mg oral tablet (20 sources) Xanthine Oxidase Inhibitor Start: 02-28-2024 End: 02-13-2025 take 1 tablet by mouth once daily Allopurinol 300 mg tablet Active 0 .ROUTE .COMPLEX 90 February 13, 2025 6:19pm TAKE 1 TABLET BY MOUTH EVERY DAY Complies with drug therapy Start: 02-28-2024 take 1 tablet by elana th once daily Allopurinol Active 0 .ROUTE .COMPLEX 90 February 28, 2024 8:41am Take 1 tablet by mouth daily 90 Start: 04-26-2018 End: 02-28-2024 take 1 tablet by mouth once daily Allopurinol 300 mg Tablet Discontinued 300 MG PO Daily April 26, 2018 12:00am February 28, 2024 8:43am Blood Glucose Test - (1 source) Start: 12-26-2023 Blood Glucose Test - as directed In Vitro daily for 90 days Dec, Active cholecalciferol 0.125 mg oral capsule (19 sources) Vitamin D Start: 03-23-2024 take 1 capsule by mouth once daily Cholecalciferol (Vitamin D3) 125 mcg (5,000 unit) capsule Active 125 MCG PO Daily March 23, 2024 12:00am Complies with drug therapy Start: 05-23-2023 take 1 capsule by [facility] every week Vitamin D3 1.25 MG (43314 UT) 1 capsule Orally weekly for 30 days May, Active take 1 capsule by [facility] once daily cholecalciferol (Vitamin D3) 25 mcg (1,000 units) capsule Take 1 capsule (25 mcg) by mouth once daily. Active hydroCHLOROthiazide 12.5 mg / lisinopril 10 mg oral tablet (20 sources) Thiazide Diuretic, Angiotensin Converting Enzyme Inhibitor Start: 05-07-2025 End: 05-07-2026 take 1 tablet by mouth once daily lisinopriL-hydrochlorothiazide 10-12.5 mg tablet Indications: Essential hypertension, benign Take 1 tablet by mouth once daily. 90 tablet 3 05/07/2025 05/07/2026 Active Start: 06-22-2024 End: 10-25-2024 take 1 tablet by mouth once daily Lisinopril-Hydrochlorothiazide 20-12.5 m g tablet Active 1 TAB PO Daily 180 June 22, 2024 12:46pm 1 tab orally; Complies with drug therapy Start: 05-29-2024 End: 06-22-2024 take 2 tablets by mouth once daily Lisinopril-Hydrochlorothiazide 20-12.5 m g tablet Discontinued 0 .ROUTE .COMPLEX 180 May 29, 2024 9:10am June 22, 2024 12:47pm Take 2 tablets by mouth daily 90 Start: 10-07-2023 End: 05-07-2025 take 1 tablet by mouth twice daily lisinopriL-hydrochlorothiazide 10-12.5 m g tablet Indications: Essential hypertension, benign Take 1 tablet by mouth 2 times a day. 180 tablet 3 10/07/2023 10/06/2024 Active Start: 05-25-2023 take 1 tablet by [facility] every twenty-four hours Lisinopril-hydroCHLOROthiazide 10-12.5 M G 1 tablet Orally Once a day May, Active Start: 07-02-2022 End: 08-24-2022 take 1 tablet by mouth once daily Lisinopril-Hydrochlorothiazide 10-12.5 m g Tablet Discontinued 1 TAB PO Daily July 02, 2022 12:00am August 24, 2022 7:29am Start: 04-26-2018 End: 05-29-2024 take 2 tablets by mouth once daily Lisinopril-Hydrochlorothiazide 20-12.5 m g Tablet Discontinued 2 TAB PO Daily April 26, 2018 12:00am May 29, 2024 9:10am insulin glargine,hum.rec.anlog (INSULIN GLARGINE SUBQ) (2 sources) inject 20 [IU] by subcutaneous injection once daily at bedtime insulin glargine,hum.rec.anlog (INSULIN GLARGINE SUBQ) Inject 20 Units under the skin once daily at bedtime. Active ozempic (0.25 or 0.5 mg/dose) 2 mg/3ml solution pen-injector (1 source) [facility] t: Ozempic (0.25 or 0.5 MG/DOSE) 2 MG/3ML 0.25MG Subcutaneous weekly Sep, Active pravastatin sodium 40 mg oral tablet (20 sources) HMG-CoA Reductase Inhibitor ar t: 18 En d: 24 take 1 tablet by mouth once daily pravastatin (Pravachol) 40 mg tablet Indications: Mixed hyperlipidemia TAKE 1 TABLET BY MOUTH ONCE DAILY 90 tablet 3 11/22/2024 Active 0.25 mg, 0.5 mg dose 1.5 ml semaglutide 1.34 mg/ml pen injector (3 sources) semaglutide (Oze mpic) 0.25 mg or 0.5 mg(2 mg/1.5 mL) pen injector Inject 0.25 mg under the skin 1 (one) time per week. Active semaglutide (2 sources) [facility] t: 24 semaglutide Active 1.2 MG SUBCUT WE@0900 June 20, 2024 12:00am please verify dose with compound dose from pharmacy. patient due for dose today 06/20/24 Semaglutide (1 source) [facility] t: 10 0 24 inject 2 mg by subcutaneous injection every week Semaglutide (Ozempic) 2 mg/dose (8 mg/3 mL) pen injector Active 2 MG SUBCUT every week August 29, 2024 12:00am Complies with drug therapy Semaglutide (Ozempic) 2 mg/dose (8 mg/3 mL) pen injector (1 source) St ar t: 10 -0 9- 20 24 inject 2 mg by subcutaneous injection every week Semaglutide (Ozempic) 2 mg/dose (8 mg/3 mL) pen injector Active 2 MG SUBCUT every week August 29, 2024 12:00am sildenafil 100 mg oral tablet (6 sources) Phosphodiesterase 5 Inhibitor take 1 tablet by mouth every twenty-four hours Sildenafil Citrate 100 MG 1 tablet as needed Orally Once a day Active torsemide 10 mg oral tablet (20 sources) Loop Diuretic St ar t: 01 -0 2- 20 25 take 1 tablet by mouth once daily torsemide (Demadex) 10 mg tablet Indications: Essential hypertension, benign TAKE 1 TABLET BY MOUTH ONCE DAILY 90 tablet 3 11/22/2024 Active Start: 03-16-2022 End: 10-06-2024 take 1 tablet by mouth once daily Torsemide 10 mg tablet Discontinued 10 MG PO Daily May 14, 2023 12:00am March 23, 2024 4:34pm vitamin b12 1 mg sublingual tablet (6 sources) Vitamin B12 Start: 06-11-2025 take 1 tablet under the tongue once daily Cyanocobalamin (Vitamin B-12) 1,000 mcg tablet, sublingual Active 1000 MCG SUBLINGUAL Daily 90 90 June 11, 2025 12:00am Complies with drug therapy Start: 06-22-2024 End: 06-11-2025 take 1 tablet by mouth once daily in the morning Cyanocobalamin (Vitamin B-12) 1,000 mcg Tablet Discontinued 1000 MCG PO Every morning 0 June 22, 2024 12:00am June 11, 2025 3:41pm Completed/Discontinued Medications Medication Drug Class(es) Dates Sig (Normalized) Sig (Original) acetaminophen 500 mg oral tablet (18 sources) Start: 05-14-2023 End: 03-23-2024 take 2 tablets by mouth every six hours as needed for pain Acetaminophen 500 mg Tablet Discontinued 1000 MG PO Q6H as needed for Pain May 14, 2023 12:00am March 23, 2024 4:33pm Start: 05-14-2023 End: 03-23-2024 take 1000 mg by mouth every six hours Acetaminophen Discontinued 1000 MG PO Q6H May 14, 2023 12:00am March 23, 2024 4:33pm Start: 05-26-2018 End: 08-11-2021 take 1 capsule by mouth every four to six hours as needed for pain Acetaminophen (Tylenol) 325 mg Capsule Discontinued 325 MG PO EVERY 4-6 HOURS as needed for Fever Or Pain May 26, 2018 12:00am August 11, 2021 1:14pm acetaminophen 325 mg / HYDROcodone bitartrate 5 mg oral tablet (20 sources) Opioid Agonist Start: 03-07-2022 End: 08-24-2022 take 1 tablet by mouth every four to six hours as needed for pain Hydrocodone-Acetaminophen 5-325 mg tablet Discontinued 1 - 2 TAB PO EVERY 4-6 HOURS as needed for pain 14 3 March 07, 2022 August 24, 2022 7:31am Start: 11-26-2018 End: 08-11-2021 take 1 tablet by mouth every four to six hours as needed for pain Hydrocodone-Acetaminophen (Hollis) 5-325 mg tablet Discontinued 1 TAB PO EVERY 4-6 HOURS as needed for pain 12 3 November 26, 2018 August 11, 2021 1:14pm acetaminophen 325 mg / oxyCODONE hydrochloride 5 mg oral tablet (7 sources) Opioid Agonist Start: 05-16-2023 End: 03-23-2024 take 1 tablet by mouth once daily as needed for pain Oxycodone-Acetaminophen (Endocet) 5-325 mg tablet Discontinued 1 TAB PO Daily as needed for pain 14 6 May 16, 2023 March 23, 2024 4:34pm amiodarone hydrochloride 200 mg oral tablet (20 sources) Antiarrhythmic Start: 11-26-2018 End: 08-24-2022 take 1 tablet by mouth twice daily Amiodarone 200 mg Tablet Discontinued 200 MG PO Twice daily November 26, 2018 1:00am August 24, 2022 7:31am Start: 04-26-2018 End: 05-26-2018 take 1 tablet by mouth once daily Amiodarone 200 mg Tablet Discontinued 200 MG PO Daily April 26, 2018 12:00am May 26, 2018 8:30am take 1 tablet by elana once daily Amiodarone 400 mg one tab orally once a day Active amLODIPine 5 mg oral tablet (20 sources) Dihydropyridine Calcium Channel Kisha Start: 03-23-2024 End: 06-22-2024 take 1 tablet by mouth once daily Amlodipine 5 mg tablet Discontinued 5 MG PO Daily March 23, [...] Inhibitor, Nonsteroidal Anti-inflammatory Drug Start: End: take 1 tablet by mouth once daily Aspirin 81 mg Tablet,Delayed Release (Dr/Ec) Discontinued 81 MG PO Daily November 26, 2018 1:00am August 24, 2022 7:31am Start: 04-26-2018 End: 05-26-2018 take 1 tablet by mouth once daily Aspirin 81 mg Tablet,Chewable Discontinued 81 MG PO Daily April 26, 2018 12:00am May 26, 2018 8:31am citalopram 20 mg oral tablet (20 sources) Serotonin Reuptake Inhibitor Start: 03-30-2024 End: 11-30-2024 take 1 tablet by mouth once daily at bedtime Citalopram 20 mg tablet Discontinued 0 .ROUTE .COMPLEX 90 November 18, 2024 9:15am November 30, 2024 1:51pm TAKE 1 TABLET BY MOUTH AT BEDTIME EVERY night Start: 11-26-2018 End: 03-30-2024 take 1 tablet by mouth once daily at bedtime Citalopram 20 mg Tablet Discontinued 20 MG PO Daily November 26, 2018 1:00am March 30, 2024 1:01pm At Start: 04-26-2018 End: 05-26-2018 take 1 tablet by mouth once daily Citalopram 20 mg Tablet Discontinued 20 MG PO Daily April 26, 2018 12:00am May 26, 2018 8:31am clindamycin 300 mg oral capsule (10 sources) Lincosamide Antibacterial Start: 07-02-2022 End: 08-24-2022 take 2 capsules by mouth three times daily Clindamycin Hcl 300 mg capsule Discontinued 600 MG PO Three times daily 10 22July 02, 2022 12:00am August 24, 2022 7:31am Start: 07-02-2022 End: 08-24-2022 take 600 mg by mouth three times daily Clindamycin Hcl Discontinued 600 MG PO Three times daily 12 July 02, 2022 12:00am August 24, 2022 7:31am clopidogrel 75 mg oral tablet (10 sources) P2Y12 Platelet Inhibitor Start: 04-26-2018 End: 05-26-2018 take 1 tablet by mouth once daily Clopidogrel 75 mg Tablet Discontinued 75 MG PO Daily April 26, 2018 12:00am May 26, 2018 8:31am docusate sodium 100 mg oral capsule (8 sources) Start: 05-14-2023 End: 03-23-2024 take 1 capsule by mouth once daily Docusate Sodium (Colace) 100 mg Capsule Discontinued 100 MG PO Daily May 14, 2023 12:00am March 23, 2024 4:34pm doxycycline hyclate 100 mg oral capsule (8 sources) Tetracycline-cla ss Drug Start: 03-05-2025 End: 06-11-2025 take 1 capsule by mouth twice daily Doxycycline Hyclate 100 mg capsule Discontinued 100 MG PO Twice daily 14 March 05, 2025 12:00am June 11, 2025 3:05pm Start: 01-16-2024 End: 03-23-2024 take 1 capsule by mouth twice daily Doxycycline Hyclate 100 mg capsule Discontinued 100 MG PO Twice daily 14 January 16, 2024 1:00am March 23, 2024 4:34pm ergocalciferol 1.25 mg oral capsule (7 sources) Provitamin D2 Compound Start: 05-16-2023 End: 03-23-2024 take 1 capsule by mouth every week, then take 1 capsule by mouth every month Ergocalciferol (Vitamin D2) 1,250 mcg (50,000 unit) capsule Discontinued 11597 UNIT PO As Directed May 16, 2023 12:00am March 23, 2024 4:34pm take one cap every week for 8 weeks, then one cap every months after that. fluticasone propionate 0.05 mg/actuat metered dose nasal spray (20 sources) Corticosteroid Start: 11-26-2018 End: 08-11-2021 Fluticasone Propionate 50 mcg/actuation [place],Suspension Discontinued 1 SPRAY INTRANASAL Daily November 26, 2018 1:00am August 11, 2021 1:14pm Start: 04-26-2018 End: 05-26-2018 Fluticasone Propionate 50 mc g/actuation [place],Suspension Discontinued 1 SPRAY INTRANASAL Daily April 26, 2018 12:00am May 26, 2018 8:31am furosemide 40 mg oral tablet (10 sources) Loop Diuretic Start: 05-26-2018 End: 11-26-2018 take 1 tablet by mouth once daily Furosemide 40 mg Tablet Discontinued 40 MG PO Daily May 26, 2018 12:00am November 26, 2018 3:49pm glimepiride 1 mg oral tablet (10 sources) Sulfonylurea Start: 04-26-2018 End: 05-26-2018 take 0.5 mg by mouth once daily in the morning Glimepiride 1 mg Tablet Discontinued 0.5 MG PO Every morning April 26, 2018 12:00am May 26, 2018 8:31am Start: 04-26-2018 End: 05-26-2018 take 0.5 mg by mouth once daily in the morning Glimepiride Discontinued 0.5 MG PO Every morning April 26, 2018 12:00am May 26, 2018 8:31am 3 ml insulin glargine 100 unt/ml pen injector (15 sources) Insulin Analog Start: 06-22-2024 inject 20 [IU] by subcutaneous injection once daily at bedtime Lantus U-100 Insulin 100 unit/mL injection INJECT 20 UNITS SUBCUTANEOUS EVERY NIGHT AT BEDTIME 06/22/2024 Active Start: 03-26-2024 End: 05-07-2025 inject 10 [IU] by subcutaneous injection once daily in the evening Insulin Glargine (Lantus Solostar U-100 Insulin) 100 unit/mL (3 mL) insulin pen Discontinued 10 UNIT SUBCUT Every evening 02 17January 03, 2025 9:57am January 09, 2025 10:37am Increase Lantus 2u every 3 days until FBS ketoconazole 20 mg/ml topical cream (20 sources) Azole Antifungal Start: 06-18-2024 End: 06-27-2024 Ketoconazole 2 % cream Discontinued 1 APPLIC TOPICAL Twice daily June 18, 2024 12:00am June 27, 2024 5:04pm Start: 08-24-2022 End: 05-14-2023 Ketoconazole 2 % Cream Disco ntinued 1 APPLIC TOPICAL Twice daily August 24, [...] DO Active lidocaine 0.05 mg/mg medicated patch (8 sources) Antiarrhythmic, Amide Local Anesthetic Start: 05-14-2023 End: 03-23-2024 apply 1 dose topically once daily Lidocaine 5 % Adhesive Patch,Medicated Discontinued 1 PATCH TOPICAL Daily May 14, 2023 12:00am March 23, 2024 4:34pm leave on most painful area for up to 12 hrs metFORMIN hydrochloride 500 mg oral tablet (20 sources) Biguanide Start: 02-22-2023 End: 10-25-2024 take 1 tablet by mouth once daily at bedtime Metformin 500 mg tablet Discontinued 500 MG PO Daily May 14, 2023 12:00am March 26, 2024 3:05pm Takes at HS Start: 05-26-2018 End: 11-26-2018 take 1 tablet by mouth once daily Metformin 500 mg Tablet Discontinued 1 TAB PO Daily May 26, 2018 12:00am November 26, 2018 3:49pm Multi Vitamin Oral Tablet (8 sources) take 1 tablet by mouth once daily Multi Vitamin Oral Tablet TAKE 1 TABLET DAILY. Quantity: 0 Refills: 0 Ordered: 07-Sep-2021 DO Active nitroglycerin 0.4 mg sublingual tablet (20 sources) Nitrate Vasodilator Start: 06-18-20 End: 06-22-20 Nitroglycerin 0.4 mg tablet, sublingual Discontinued 0.4 MG SUBLINGUAL every 5 to 15 minutes as needed for chest pain June 18, 2024 12:00am June 22, 2024 12:47pm do not exceed 3 doses per episode Start: 11-26-2018 End: 05-14-2023 Nitroglycerin 0.4 mg Tablet, Sublingual Discontinued 0.4 MG SUBLINGUAL every 5 to 15 minutes as needed for Chest Pain November 26, 2018 1:00am May 14, 2023 11:18pm Start: 04-26-2018 End: 05-26-2018 Nitroglycerin (Nitrostat) 0. 4 mg Tablet, Sublingual Discontinued 0.4 MG SUBLINGUAL every 5 to 15 minutes as needed for Chest Pain April 26, 2018 12:00am May 26, 2018 8:31am Nitroglycerin 0. 4 MG as directed Sublingual Active polyethylene glycol 3350 34499 mg powder for oral solution (4 sources) Osmotic Laxative Start: 06-22-2024 End: 08-21-2024 Polyethylene Glycol 3350 (Healthylax) 17 gram Powder In Packet Discontinued 17 GM PO Daily 0 June 22, 2024 12:00am August 21, 2024 9:55am Potassium (10 sources) Start: 05-26-2018 End: 08-11-2021 Potassium 99 mg Tablet Discontinued May 26, 2018 12:00am August 11, 2021 1:14pm Start: 05-26-2018 End: 08-11-2021 Potassium 99 mg Tablet Disco ntinued TABLET May 26, 2018 12:00am August 11, 2021 1:14pm Start: 05-26-2018 End: 08-11-2021 Potassium Discontinued TABLE [...] 14, 2023 11:16pm take 1 tablet by twice daily potassium bicarbonate (K-Lyte) 25 mEq effervescent tablet Take 1 tablet (25 mEq) by mouth 2 times a day. Active Effer-K 25 MEQ O ral Tablet Effervescent TAKE DIRECTED. Quantity: 0 Refills: 0 Ordered: 07-Sep-2021 DO Active Potassium Bicarbonate 50 mEq Tablet, Effervescent (2 sources) Start: 07-02-2022 End: 08-24-2022 Potassium Bicarbonate 50 mEq Tablet, Effervescent Discontinued 25 EACH PO 2 times daily July 02, 2022 12:00am August 24, 2022 7:31am potassium citrate 10 meq extended release oral tablet (16 sources) Start: 04-26-2018 End: 08-11-2021 take 2 tablets by mouth once daily Potassium Citrate 10 mEq (1,080 mg) Tablet Extended Release Discontinued 2 TAB PO Daily April 26, 2018 12:00am August 11, 2021 1:14pm Potassium Citrat e - 6000 Not-Taking psyllium 3400 mg powder for oral suspension (4 sources) Start: 06-22-2024 End: 08-21-2024 Psyllium Husk (Metamucil Fiber Singles) 3.4 gram Powder In Packet Discontinued 1 PACKET PO Daily 0 June 22, 2024 12:00am August 21, 2024 9:55am Semaglutide (7 sources) Start: 03-23-2024 End: 03-26-2024 Semaglutide (Ozempic) 0.25 mg or 0.5 mg (2 mg/3 mL) pen injector Discontinued 0.25 MG SUBCUT every week March 23, 2024 12:00am March 26, 2024 3:05pm semaglutide 1.2 mg/0.33 mL kit (2 sources) Start: 06-20-2024 End: 08-29-2024 semaglutide 1.2 mg/0.33 mL kit Discontinued 1.2 MG SUBCUT WE@0900 June 20, 2024 12:00am August 29, 2024 11:05am please verify dose with compound dose from pharmacy. patient due for dose today 06/20/24 sotalol hydrochloride 80 mg oral tablet (10 sources) Antiarrhythmic Start: 05-26-2018 End: 11-26-2018 Sotalol 80 mg Tablet Discontinued 80 MG As Directed May 26, 2018 12:00am November 26, 2018 3:50pm Start: 05-26-2018 End: 11-26-2018 Sotalol Discontinued 80 MG T ABLET As Directed May 26, 2018 12:00am November 26, 2018 3:50pm tamsulosin hydrochloride 0.4 mg oral capsule (20 sources) alpha-Adrenergic Kisha Start: 11-26-2018 End: 08-24-2022 take 1 capsule by mouth once daily Tamsulosin 0.4 mg Capsule Discontinued 0.4 MG PO Daily November 26, 2018 1:00am August 24, 2022 7:31am Start: 04-26-2018 End: 05-26-2018 take 1 capsule by mouth twice daily Tamsulosin 0.4 mg Capsule,Extended Release 24hr Discontinued 0.4 MG PO Twice daily April 26, 2018 12:00am May 26, 2018 8:31am traMADol hydrochloride 50 mg oral tablet (8 sources) Opioid Agonist Start: 05-14-2023 End: 03-23-2024 take 1 tablet by mouth every six hours as needed for pain Tramadol 50 mg Tablet Discontinued 50 MG PO Q6H as needed for Pain May 14, 2023 12:00am March 23, 2024 4:34pm triamcinolone acetonide 40 mg/ml injectable suspension (20 sources) Corticosteroid Start: 06-23-2023 Kenalog-40 Jun, 60 mg Start: 08-24-2022 End: 05-14-2023 Triamcinolone Acetonide 0.02 5 % cream Discontinued 1 APPLIC TOPICAL Daily August 24, 2022 12:00am May 14, 2023 11:16pm Start: 11-26-2018 End: 08-11-2021 Triamcinolone Acetonide 0.1 % Cream Discontinued November 26, 2018 1:00am August 11, 2021 1:13pm Start: 11-26-2018 End: 08-11-2021 Triamcinolone Acetonide Disc ontinued November 26, 2018 1:00am August 11, 2021 1:13pm Start: 04-26-2018 End: 05-26-2018 Triamcinolone Acetonide 0.1 % Cream Discontinued 1 APPLIC TOPICAL As Directed April 26, 2018 12:00am May 26, 2018 8:31am Start: 04-26-2018 End: 05-26-2018 Triamcinolone Acetonide Disc ontinued 1 APPLIC TOPICAL As Directed April 26, 2018 12:00am May 26, 2018 8:31am Triamcinolone Ac etonide OINT APPLY TO AFFECTED AREA TWICE DAILY DIRECTED. Quantity: 0 Refills: 0 Ordered: 07-Sep-2021 DO Active warfarin sodium 4 mg oral tablet (20 sources) Vitamin K Antagonist Start: 05-14-2023 End: 01-07-2025 take 1 tablet by mouth once daily Warfarin 4 mg tablet Discontinued 4 MG PO Daily March 23, 2024 12:00am January 07, 2025 1:43pm Start: 05-14-2023 End: 03-23-2024 Warfarin 6 mg tablet Discont inued 6 MG PO WESA@1700 May 14, 2023 12:00am March 23, 2024 4:35pm WED AND SAT Start: 04-26-2018 End: 05-14-2023 Warfarin 2 mg Tablet Discont inued 4 MG PO As Directed April 26, 2018 12:00am May 14, 2023 11:11pm Start: 04-26-2018 End: 05-14-2023 Warfarin Discontinued 4 MG P O As Directed April 26, 2018 12:00am May 14, 2023 11:11pm Warfarin Sodium 4 MG Oral Tablet as directed by [facility] Quantity: 0 Refills: 0 Ordered: [...] Translations: [Atrial flutter] Onset: 7 10-07-2023 Chronic Comment on above: Problem List clean-u p per request of Phys. EHR Cmte Chronic kidney disease (20 sources) Chronic kidney disease stage 3A ; Translations: [Stage 3a chronic kidney disease] Onset: 4 03-24-2024 Chronic Conduction disorders (20 sources) Complete atrioventricular block; Translations: [Atrioventricular block, complete] Onset: 2 Chronic Comment on above: Problem List clean-u p per request of Phys. EHR Cmte Congestive heart failure; nonhypertensive (2 sources) Acute on chronic diastolic heart failure; Translations: [Acute on chronic diastolic (congestive) heart failure] Chronic Coronary atherosclerosis and other heart disease (20 sources) Coronary atherosclerosis; Translations: [Coronary atherosclerosis of [place] coronary artery] Onset: 3 Chronic Comment on above: PCI/stent Lcx - 2018 Diabetes mellitus with complications (20 sources) Type 2 diabetes mellitus; Translations: [Type 2 diabetes mellitus with hyperglycemia] Onset: 7 Chronic Diabetes mellitus without complication (20 sources) Diabetes mellitus; Translations: [Diabetes mellitus without mention of complication, type II or unspecified type, not stated as uncontrolled] Onset: 2 Chronic Disorders of lipid metabolism (20 sources) Hyperlipidemia; Translations: [Other and unspecified hyperlipidemia] Onset: 6 Chronic E Codes: Fall (20 sources) Fall; Translations: [Unspecified fall, initial encounter] 03-07-2022 Episodic Comment on above: Problem List clean-u p per request of Phys. EHR Cmte Essential hypertension (20 sources) Benign essential hypertension; [...] Translations: [Encounter for immunization] Episodic Intestinal infection (5 sources) Viral gastroenteritis; Translations: [Viral intestinal infection, unspecified] Onset: 4 06-22-2024 Episodic Intracranial injury (17 sources) Concussion injury of body structure; Translations: [Concussion] Onset: 9 08-24-2022 Episodic Comment on above: Problem List clean-u p per request of Phys. 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 EHR Cmte Open wounds of head; neck; and trunk (20 sources) Laceration of right eyebrow; Translations: [Laceration without foreign body of right eyelid and periocular area, initial encounter] Onset: 3 03-07-2022 Episodic Comment on above: Problem List clean-u p per request of Phys. 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; Translations: [CONVENTIONS ASSISTANT CURRNT USE ANTICOAGULANTS] Onset: 3 Episodic Other aftercare (7 sources) Long-term current use of anticoagulant; Translations: [remote computer terminal operator (current) use of anticoagulants] Episodic Other aftercare (8 sources) Long-term current use of drug therapy; Translations: [Other middle or intermediate school principal (current) drug therapy] Episodic Other circulatory disease (4 sources) Iatrogenic hypotension; Translations: [Other hypotension] 06-22-2024 Episodic Other circulatory disease (4 sources) Orthostatic hypotension; Translations: [Orthostatic hypotension] 06-22-2024 [...] fracture with routine healing] Episodic Other fractures (7 sources) Fracture of right rib; Translations: [Fracture of one rib, right side, initial encounter for closed fracture] 11-02-2023 Episodic Comment on above: Problem List clean-u p per request of Phys. EHR Cmte Other injuries and conditions due to external causes (10 sources) Closed injury of head; Translations: [Unspecified injury of head, initial encounter] 01-11-2022 Episodic Comment on above: Problem List clean-u p per request of Phys. EHR Cmte Other injuries and conditions due to external causes (12 sources) Injury of head; Translations: [Unspecified injury of head, initial encounter] Onset: 3 05-14-2023 Episodic Comment on above: Problem List clean-u p per request of Phys. EHR Cmte Other injuries and conditions due to external causes (1 source) Unspecified injury of head, initial encounter; Translations: [Head injury, unspecified] 05-14-2023 Episodic Other injuries and conditions due to external causes (7 sources) History of fall; Translations: [History of falling] Episodic Other injuries and conditions due to external causes (1 source) History of falling; Translations: [History of falling] Episodic Other injuries and conditions due to external causes (1 source) Other specified injuries of thorax, initial encounter; Translations: [Contusion of rib on right side] 11-02-2023 Episodic Comment on above: Problem List clean-u p per request of Phys. EHR Cmte Other lower respiratory disease (19 sources) Dyspnea on exertion; Translations: [Shortness of [...] Chronic Other nutritional; endocrine; and metabolic disorders (2 sources) Body mass index (BMI) 45.0-49.9, adult; Translations: [Body mass index (BMI) 45.0-49.9, adult (Multi)] Onset: 5 Chronic Other nutritional; endocrine; and metabolic disorders (8 sources) Hyperuricemia 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 inflammatory arthritis and tophaceous disease; Translations: [Hyperuricemia 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 inflammatory arthritis and tophaceous disease] Episodic Other screening for suspected conditions (not mental disorders or infectious disease) (20 sources) Electrocardiogram abnormal; Translations: [Abnormal electrocardiogram [ECG] [EKG]] Onset: 6 Episodic Comment on above: PSA: 12.03 Problem List clean-u p per request of Phys. EHR Cmte Other skin disorders (8 sources) Vesicular eczema [...] and visceral atherosclerosis (8 sources) Atherosclerosis of [place] arteries of the extremities; Translations: [Unspecified atherosclerosis of [place] arteries of extremities, bilateral legs] Chronic Residual codes; unclassified (20 sources) Obstructive sleep apnea syndrome; Translations: [Obstructive sleep apnea (adult) (pediatric)] Onset: 4 03-24-2024 Chronic Residual codes; unclassified (20 sources) Obstructive sleep apnea (adult) (pediatric); Translations: [Obstructive sleep apnea (adult)(pediatric)] Onset: 2 Chronic Residual codes; unclassified (1 source) Swelling - edema - symptom; Translations: [Edema] Episodic Residual codes; unclassified (8 sources) Other specified personal risk factors, not elsewhere classified; Translations: [Personal risk factor] Episodic Spondylosis; intervertebral disc disorders; other back problems (19 sources) Lumbosacral spondylosis without myelopathy; Translations: [Other spondylosis with radiculopathy, lumbar region] 01-30-2025 Chronic Superficial injury; contusion (20 sources) Contusion of rib; Translations: [Contusion of right front wall of thorax, initial encounter] Onset: 9 Resolved: 0 03-07-2022 Episodic Comment on above: Problem List clean-u p per request of Phys. EHR Cmte Syncope (20 sources) Syncope; Translations: [Syncope and collapse] Onset: 3 05-14-2023 Episodic Comment on above: Problem List clean-u p per request of Phys. EHR Cmte Unclassified (10 sources) Permanent atrial fibrillation; Translations: [Permanent atrial fibrillation] Onset: 3 Unclassified (5 sources) Chronic atrial fibrillation, unspecified; Translations: [CHRONIC ATRIAL FIBRILLATION UNSPEC] Onset: 3 Viral infection (8 sources) Viral disease; Translations: [Viral infection, unspecified] [...] source) Weakness; Translations: [Weakness] Onset: 06-19-2024 Episodic Nonspecific chest pain (8 sources) Chest pain; Translations: [Chest pain, unspecified] Onset: 05-06-2017 Episodic Other circulatory disease (1 source) Orthostatic [...] Resolved: 02-28-2022 Chronic Other infections; including parasitic (16 sources) History of sepsis; Translations: [Personal history of other infectious and parasitic diseases] Onset: 10-06-2023 10-06-2023 Episodic Other lower respiratory disease (2 sources) Shortness of breath; Translations: [Shortness of breath] Onset: 10-06-2023 Episodic Other upper respiratory infections (8 sources) Acute sinusitis; Translations: [Acute sinusitis, unspecified] Onset: 10-20-2015 Episodic Residual codes; unclassified (8 sources) Edema; Translations: [Edema] Onset: 10-06-2023 10-06-2023 Episodic Screening and history of mental health and substance abuse codes (19 sources) Ex-smoker; Translations: [Personal history of tobacco use] Onset: 10-25-2024 10-25-2024 Episodic Comment on above: QUIT 1996; Septicemia (except in labor) (8 sources) Other streptococcal sepsis; Translations: [Other streptococcal sepsis] Onset: 05-30-2017 Episodic Skin and subcutaneous tissue infections (16 sources) Cellulitis of left lower limb; Translations: [Cellulitis of left lower limb] Onset: 07-02-2019 Resolved: 02-23-2021 Episodic Spondylosis; intervertebral disc disorders; other back problems (4 sources) Neck pain; Translations: [Cervicalgia] Onset: 10-06-2023 10-06-2023 Episodic Unclassified (4 sources) Onset: 10-07-2023 Resolved: 05-07-2025 10-07-2023 Results Test Name Value Interpretation Reference Range Facility ECG 12 Leadon 10-25-2024 Atrial fibrillation with controlled rate with nonspecific ST-T changes [facility] Work Phone: Ambulatory Visit Summaryon 1 Ambulatory [...] Alberto GIBSON MD Where: [facility] [address] [place] [address] [place] [address]- You Need to Schedule the Following Appointments Follow Up with Carlos Alberto GIBSON MD, URL When: Where: [address] [place] [id number]- Medications What How Much When Instructions Unchanged [...] where an (more content not included)... 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 Dx: BPH with obstruction, hx of kidney stones, chronic prostatitis. S/p TURP 10/01/21. *Effer-K 20mEq bid. Pt states he has not been taking this for the past 2 months. KUB done 04/23/24 at [facility]. Dysuria: denies Incomplete bladder emptying: [...] the kidneys or ureters. KUB 04/23/24 [facility] - question of a tiny [...] Information ARTHUR OCONNELL, Carlos Alberto Bunn, URL [address] [place] [address]- Additional Instructions: 1 year w/ KUB Patient [...] renal calculu (more content not included)... Normal [facility] Comment on above: Result Comment: Elec tronically Signed By: Carlos Alberto GIBSON MD\.br\Date and Time Signed: 08/24/24 11:59 EDT\.br\Electronically Co-Signed By: Xochilt Vale\.br\Date and Time Co-Signed: 08/24/24 11:54 EDT Automated basophil %Ordered By: Stalin Miranda on 06-22-2024 Basophils/100 WBC (Bld) 0.7 % Normal . [facility] Comment on above: Performed By: #### A 1C WTH eA, [id number], TSH3, PT, CBC, [id number], BMP, PTT #### [facility] [address] Automated basophil countOrde red By: Stalin Miranda on 06-22-2024 Basophils (Bld) [#/Vol] 0.1 10*3/uL Normal 0.0-0.2 [facility] Comment on above: Result Comment: PERF ORMED BY: [place] [address] SUPERVISOR OF ENGINES CORAL GOLD M.D. Performed By: #### A 1C WTH eA, [id number], TSH3, PT, CBC, [id number], BMP, PTT #### [facility] [address] [place] [address] Automated blood monocyte cou ntOrdered By: Stalin Doamekpor on 06-22-2024 Monocytes (Bld) [#/Vol] 0.7 10*3/uL Normal 0.0-0.8 [facility] Comment on above: Performed By: #### A 1C WTH eA, [id number], TSH3, PT, CBC, [id number], BMP, PTT #### [address] Automated eosinophil %Ordere d By: Stalin Gavikpor on 06-22-2024 Eosinophils/100 WBC (Bld) 2.0 % Normal . [facility] Comment on above: Performed By: #### A 1C WTH eA, [id number], TSH3, PT, CBC, [id number], BMP, PTT #### [facility] [address] [place] [address] Automated eosinophil countOr dered By: Stalin Gavikpor on 06-22-2024 Eosinophils (Bld) [#/Vol] 0.2 10*3/uL Normal 0.0-0.45 [facility] Comment on above: Performed By: #### A 1C WTH eA, [id number], TSH3, PT, CBC, [id number], BMP, PTT #### [facility] [address] [place] [address] Automated monocyte %Ordered By: Stalin Doamekpor on 06-22-2024 Monocytes/100 WBC (Bld) 6.4 % Normal . [facility] Comment on above: Performed By: #### A 1C WTH eA, [id number], TSH3, PT, CBC, [id number], BMP, PTT #### [address] Automated neutrophil %Ordere d By: Stalin Miranda on 06-22-2024 Neutrophils/100 WBC (Bld) 73.9 % Normal . [facility] Comment on above: Performed By: #### A 1C WTH eA, [id number], TSH3, PT, CBC, [id number], BMP, PTT #### [address] Basic Metabolic Panelon Creatinine Clr Calc Pharmacy 89.71 Normal [facility] Comment on above: Result Comment: PERF ORMED BY: [place] [address] SUPERVISOR OF ENGINES CORAL GOLD M.D. Performed By: #### A 1C WTH eA, [id number], TSH3, PT, CBC, [id number], BMP, PTT #### [address] GFR/1.73 sq M.predicted MDRD (S/P/Bld) [Vol rate/Area] mL/min/{1.73_m2} Normal [facility] Comment on above: Performed By: #### A 1C WTH eA, [id number], TSH3, PT, CBC, [id number], BMP, PTT #### [address] Calcium [Mass/volume] in Ser um or PlasmaOrdered By: Stalin Miranda on 06-22-2024 Calcium [Mass/Vol] 9.5 mg/dL Normal 8.6-10.3 [facility] Comment on above: Performed By: #### A 1C WTH eA, [id number], TSH3, PT, CBC, [id number], BMP, PTT #### [address] Capillary blood glucose robert urement by glucometer (mass/volume)Ordered By: Stalin Miranda on 06-22-2024 Glucose [Mass/Vol] 143 mg/dL Normal [facility] Comment on above: Random Glucose Refer ence Range is dependent on time and content of last meal. Glucose of more than 200 mg/dL in a nonstressed, ambulatory subject supports the diagnosis of Diabetes Mellitus. Result Comment: Fosters om Glucose Reference Range is dependent on time and content of last meal. Glucose of more than 200 mg/dL in a nonstressed, ambulatory subject supports the diagnosis of Diabetes Mellitus. PERFORMED BY: [place] [address] SUPERVISOR OF ENGINES CORAL GOLD M.D. Performed By: #### A 1C WTH eA, [id number], TSH3, PT, CBC, [id number], BMP, PTT #### [address] Carbon dioxide, total [Moles /volume] in Serum or PlasmaOrdered By: Stalin Miranda on 06-22-2024 CO2 [Moles/Vol] 26.9 mmol/L Normal 21.0-31.0 [facility] Comment on above: Performed By: #### A 1C WTH eA, [id number], TSH3, PT, CBC, [id number], BMP, PTT #### [address] Chloride [Moles/volume] in S karla or PlasmaOrdered By: Stalin Miranda on 06-22-2024 Chloride [Moles/Vol] 99 mmol/L Normal 98-107 [facility] Comment on above: Performed By: #### A 1C WTH eA, [id number], TSH3, PT, CBC, [id number], BMP, PTT #### [place] [address] [place] Complete Blood Count Auto Di ffon 06-22-2024 Mean Corpuscular HGB Conc 32.3 g/dL Low 32.5-35.6 [facility] Comment on above: Performed By: #### A 1C WTH eA, [id number], TSH3, PT, CBC, [id number], BMP, PTT #### [facility] [address] NRBC% 0.1 /100{WBC} Normal 0-0.5 [facility] Comment on above: Performed By: #### A 1C WTH eA, [id number], TSH3, PT, CBC, [id number], BMP, PTT #### [facility] [address] Creatinine [Mass/volume] in Serum or PlasmaOrdered By: Stalin Miranda on 06-22-2024 Creatinine [Mass/Vol] 0.92 mg/dL Normal 0.70-1.30 [facility] Comment on above: Performed By: #### A 1C WTH eA, [id number], TSH3, PT, CBC, [id number], BMP, PTT #### [address] Erythrocyte distribution wid th [Ratio] by Automated countOrdered By: Stalin Miranda on 06-22-2024 Erythrocyte distribution width (RBC) [Ratio] 17.0 % High 12.0-14.8 [facility] Comment on above: Performed By: #### A 1C WTH eA, [id number], TSH3, PT, CBC, [id number], BMP, PTT #### [address] Erythrocytes [#/volume] in B lood by Automated countOrdered By: Stalin Miranda on 06-22-2024 RBC (Bld) [#/Vol] 4.77 10*6/uL Normal 3.90-5.60 [facility] Comment on above: Performed By: #### A 1C WTH eA, [id number], TSH3, PT, CBC, [id number], BMP, PTT #### [facility] [address] Glucose Poct Glucometerson 0 06-22-2024 Commemt1 Glu2: Cleaned Meter Normal [facility] Comment on above: Result Comment: PERF ORMED BY: [place] [address] SUPERVISOR OF ENGINES CORAL GOLD M.D. Performed By: #### A 1C WTH eA, [id number], TSH3, PT, CBC, [id number], BMP, PTT #### [address] Glucose [Mass/Vol] 128 mg/dL Normal [facility] Comment on above: Result Comment: Fosters om Glucose Reference Range is dependent on time and content of last meal. Glucose of more than 200 mg/dL in a nonstressed, ambulatory subject supports the diagnosis of Diabetes Mellitus. Performed By: #### A 1C WTH eA, [id number], TSH3, PT, CBC, [id number], BMP, PTT #### [place] [address] [place] Glucose [Mass/volume] in Ser um or PlasmaOrdered By: Stalin Miranda on 06-22-2024 Glucose [Mass/Vol] 137 mg/dL High 70-100 [facility] Comment on above: ADA recommended refe rence rangeRandom Glucose Reference Range is dependent on time and content of last meal. Glucose of more than 200 mg/dL in a nonstressed, ambulatory subject supports the diagnosis of Diabetes Mellitus. Result Comment: Fosters om Glucose Reference Range is dependent on time and content of last meal. Glucose of more than 200 mg/dL in a nonstressed, ambulatory subject supports the diagnosis of Diabetes Mellitus. ADA recommended reference range Performed By: #### A 1C WTH eA, [id number], TSH3, PT, CBC, [id number], BMP, PTT #### [facility] [address] [place], [place] [id number] [place] Hematocrit [Volume Fraction] of Blood by Automated countOrdered By: Stalin Miranda on 06-22-2024 Hematocrit (Bld) [Volume fraction] 40.8 % Normal 38.8-50.0 [facility] Comment on above: Performed By: #### A 1C WTH eA, [id number], TSH3, PT, CBC, [id number], BMP, PTT #### [facility] [address] Hemoglobin [Mass/volume] in BloodOrdered By: Stalin Miranda on 06-22-2024 Hemoglobin (Bld) [Mass/Vol] 13.2 g/dL Normal 13.0-17.0 [facility] Comment on above: Performed By: #### A 1C WTH eA, [id number], TSH3, PT, CBC, [id number], BMP, PTT #### [facility] [address] [place] [address] [place] INR in Platelet poor plasma by Coagulation assayOrdered By: Stalin Miranda on 06-22-2024 INR Coag (PPP) [Relative time] 2.4 {INR} Normal [facility] Comment on above: INR Therapeutic Rang e [...] heart valves: 3 - 4.5 PERFORMED BY: [place] [address] SUPERVISOR OF ENGINES CORAL GOLD M.D. Performed By: #### A 1C WTH eA, [id number], TSH3, PT, CBC, [id number], BMP, PTT #### [place] [id number] [facility] Leukocytes [#/volume] correc faraz for nucleated erythrocytes in Blood by Automated counOrdered By: Stalin Miranda on 06-22-2024 WBC corrected for nucl RBC Auto (Bld) [#/Vol] 10.4 10*3/uL 4.1-10.5 [facility] Leukocytes [#/volume] in Blo od by Automated countOrdered By: Stalin Miranda on 06-22-2024 WBC (Bld) [#/Vol] 10.4 10*3/uL Normal 4.1-10.5 [facility] Comment on above: Performed By: #### A 1C [facility] eA, [id number], TSH3, PT, CBC, [id number], BMP, PTT #### [facility] [address] Lymphocytes [#/volume] in Bl ood by Automated countOrdered By: Stalin Miranda on 06-22-2024 Lymphocytes (Bld) [#/Vol] 1.8 10*3/uL Normal 1.00-4.8 [facility] Comment on above: Performed By: #### A 1C [facility] eA, [id number], TSH3, PT, CBC, [id number], BMP, PTT #### [facility] [address] [place] [address] [place] Lymphocytes/100 leukocytes i n Blood by Automated countOrdered By: Stalin Miranda on 06-22-2024 Lymphocytes/100 WBC (Bld) 17.0 % Normal . [facility] Comment on above: Performed By: #### A 1C [facility] eA, [id number], TSH3, PT, CBC, [id number], BMP, PTT #### [facility] [address] MCH [Entitic mass] by Automa faraz countOrdered By: Stalin Miranda on 06-22-2024 MCH (RBC) [Entitic mass] 27.7 pg Normal 27.5-35.2 [facility] Comment on above: Performed By: #### A 1C [facility] eA, [id number], TSH3, PT, CBC, [id number], BMP, PTT #### [facility] [address] MCHC Auto (RBC) [Mass/Vol]Or dered By: Stalin Miranda on 06-22-2024 MCHC (RBC) [Mass/Vol] 32.3 g/dL Low 32.5-35.6 [facility] MCV [Entitic volume] by Auto mated countOrdered By: Stalin Miranda on 06-22-2024 MCV (RBC) [Entitic vol] 85.6 fL Normal 83.5-101 [facility] Comment on above: Performed By: #### A 1C WTH eA, [id number], TSH3, PT, CBC, [id number], BMP, PTT #### [facility] [address] [place] [address] [place] Neutrophils [#/volume] in Bl ood by Automated countOrdered By: Stalin Miranda on 06-22-2024 Neutrophils (Bld) [#/Vol] 7.7 10*3/uL Normal 1.8-7.7 [facility] Comment on above: Performed By: #### A 1C WTH eA, [id number], TSH3, PT, CBC, [id number], BMP, PTT #### [facility] [address] No Panel InformationOrdered By: Stalin Miranda on 06-22-2024 Bedside Glucose Comment Glu2: cleaned meter [facility] Estimated GFR (CKD-EPI) > 60.0 mL/Min [facility] Creatinine Clearance (Chem 89.71 [facility] Nucleated erythrocytes [Pres ence] in Blood by Automated countOrdered By: Stalin Miranda on 06-22-2024 Nucleated RBC Auto Ql (Bld) 0.1 /100{WBC} 0-0.5 [facility] Platelet mean volume [Entiti c volume] in Blood by Automated countOrdered By: tSalin Miranda on 06-22-2024 Platelet mean volume (Bld) [Entitic vol] 7.9 fL Normal 6.6-10.1 [facility] Comment on above: Performed By: #### A 1C WTH eA, [id number], TSH3, PT, CBC, [id number], BMP, PTT #### [facility] [address] Platelets [#/volume] in Bloo d by Automated countOrdered By: Stalin Miranda on 06-22-2024 Platelets (Bld) [#/Vol] 237 10*3/uL Normal 150-450 [facility] Comment on above: Performed By: #### A 1C WTH eA, [id number], TSH3, PT, CBC, [id number], BMP, PTT #### [facility] [address] [place] [id number] [facility] Potassium [Moles/volume] in Serum or PlasmaOrdered By: Stalin Miranda on 06-22-2024 Potassium [Moles/Vol] 4.1 mmol/L Normal 3.5-5.1 [facility] Comment on above: Performed By: #### A 1C WTH eA, [id number], TSH3, PT, CBC, [id number], BMP, PTT #### [facility] [address] Prothrombin time (PT)Ordered By: Stalin Miranda on 06-22-2024 PT Coag (PPP) [Time] 26.6 s High 9.0-12.9 [facility] Comment on above: A hematocrit value g reater than 55% may lead to inaccurate results in coagulation testing. Patients having hematocrit values >55% require a special collection tube for coagulation studies. Please contact the laboratory at [phone] for redraw instructions. Result Comment: A he matocrit value greater than 55% may lead to inaccurate results in coagulation testing. Patients having hematocrit values >55% require a special collection tube for coagulation studies. Please contact the laboratory at [phone] for redraw instructions. Performed By: #### A 1C WTH eA, [id number], TSH3, PT, CBC, [id number], BMP, PTT #### [facility] [address] Serum or plasma anion gap de terminationOrdered By: Stalin Miranda on 06-22-2024 Anion gap [Moles/Vol] 10.2 mmol/L Normal 6.0-15.0 [facility] Comment on above: Performed By: #### A 1C WTH eA, [id number], TSH3, PT, CBC, [id number], BMP, PTT #### [facility] [address] Sodium [Moles/volume] in Ser um or PlasmaOrdered By: Stalin Miranda on 06-22-2024 Sodium [Moles/Vol] 132 mmol/L Low 136-145 [facility] Comment on above: Performed By: #### A 1C WTH eA, [id number], TSH3, PT, CBC, [id number], BMP, PTT #### [address] Urea nitrogen [Mass/volume] in Serum or PlasmaOrdered By: Stalin Miranda on 06-22-2024 Urea nitrogen [Mass/Vol] 26 mg/dL High 7-25 [facility] Comment on above: Performed By: #### A 1C WTH eA, [id number], TSH3, PT, CBC, [id number], BMP, PTT #### [address] Basic Metabolic Panelon 08-0 Anion gap [Moles/Vol] 9.4 mmol/L Normal 6.0-15.0 [facility] Comment on above: Performed By: #### A 1C WTH eA, [id number], TSH3, PT, CBC, [id number], BMP, PTT #### [facility] [address] Calcium [Mass/Vol] 9.4 mg/dL Normal 8.6-10.3 [facility] Comment on above: Performed By: #### A 1C WTH eA, [id number], TSH3, PT, CBC, [id number], BMP, PTT #### [facility] [address] Chloride [Moles/Vol] 100 mmol/L Normal 98-107 [facility] Comment on above: Performed By: #### A 1C WTH eA, [id number], TSH3, PT, CBC, [id number], BMP, PTT #### [address] CO2 [Moles/Vol] 27.6 mmol/L Normal 21.0-31.0 [facility] Comment on above: Performed By: #### A 1C WTH eA, [id number], TSH3, PT, CBC, [id number], BMP, PTT #### [facility] [address] Creatinine [Mass/Vol] 1.20 mg/dL Normal 0.70-1.30 [facility] Comment on above: Performed By: #### A 1C WTH eA, [id number], TSH3, PT, CBC, [id number], BMP, PTT #### [address] Creatinine Clr Calc Pharmacy 68.60 Normal [facility] Comment on above: Result Comment: PERF ORMED BY: [place] [address] SUPERVISOR OF [employer] M.D. Performed By: #### A 1C WTH eA, [id number], TSH3, PT, CBC, [id number], BMP, PTT #### [address] GFR/1.73 sq M.predicted MDRD (S/P/Bld) [Vol rate/Area] mL/min/{1.73_m2} Normal [facility] Comment on above: Performed By: #### A 1C WTH eA, [id number], TSH3, PT, CBC, [id number], BMP, PTT #### [address] Glucose [Mass/Vol] 104 mg/dL High 70-100 [facility] Comment on above: Result Comment: [facility] Glucose Reference Range is dependent on time and content of last meal. Glucose of more than 200 mg/dL in a nonstressed, ambulatory subject supports the diagnosis of Diabetes Mellitus. ADA recommended reference range Performed By: #### A 1C WTH eA, [id number], TSH3, PT, CBC, [id number], BMP, PTT #### [address] Potassium [Moles/Vol] 4.0 mmol/L Normal 3.5-5.1 [facility] Comment on above: Performed By: #### A 1C WTH eA, [id number], TSH3, PT, CBC, [id number], BMP, PTT #### [address] Sodium [Moles/Vol] 133 mmol/L Low 136-145 [facility] Comment on above: Performed By: #### A 1C WTH eA, [id number], TSH3, PT, CBC, [id number], BMP, PTT #### [address] Urea nitrogen [Mass/Vol] 31 mg/dL High 7-25 [facility] Comment on above: Performed By: #### A 1C WTH eA, [id number], TSH3, PT, CBC, [id number], BMP, PTT #### [address] Complete Blood Count Auto Di ffon 06-21-2024 Basophils (Bld) [#/Vol] 0.1 10*3/uL Normal 0.0-0.2 [facility] Comment on above: Result Comment: PERF ORMED BY: [place] [address] SUPERVISOR [employer] M.D. Performed By: #### A 1C WTH eA, [id number], TSH3, PT, CBC, [id number], BMP, PTT #### [address] Basophils/100 WBC (Bld) 1.0 % Normal . [facility] Comment on above: Performed By: #### A 1C WTH eA, [id number], TSH3, PT, CBC, [id number], BMP, PTT #### [address] Eosinophils (Bld) [#/Vol] 0.3 10*3/uL Normal 0.0-0.45 [facility] Comment on above: Performed By: #### A 1C WTH eA, [id number], TSH3, PT, CBC, [id number], BMP, PTT #### [address] Eosinophils/100 WBC (Bld) 3.3 % Normal . [facility] Comment on above: Performed By: #### A 1C WTH eA, [id number], TSH3, PT, CBC, [id number], BMP, PTT #### [address] Erythrocyte distribution width (RBC) [Ratio] 17.0 % High 12.0-14.8 [facility] Comment on above: Performed By: #### A 1C WTH eA, [id number], TSH3, PT, CBC, [id number], BMP, PTT #### [address] Hematocrit (Bld) [Volume fraction] 39.4 % Normal 38.8-50.0 [facility] Comment on above: Performed By: #### A 1C WTH eA, [id number], TSH3, PT, CBC, [id number], BMP, PTT #### [address] Hemoglobin (Bld) [Mass/Vol] 12.8 g/dL Low 13.0-17.0 [facility] Comment on above: Performed By: #### A 1C WTH eA, [id number], TSH3, PT, CBC, [id number], BMP, PTT #### [address] Lymphocytes (Bld) [#/Vol] 1.5 10*3/uL Normal 1.00-4.8 [facility] Comment on above: Performed By: #### A 1C WTH eA, [id number], TSH3, PT, CBC, [id number], BMP, PTT #### [address] Lymphocytes/100 WBC (Bld) 19.5 % Normal . [facility] Comment on above: Performed By: #### A 1C WTH eA, [id number], TSH3, PT, CBC, [id number], BMP, PTT #### [address] MCH (RBC) [Entitic mass] 27.9 pg Normal 27.5-35.2 [facility] Comment on above: Performed By: #### A 1C WTH eA, [id number], TSH3, PT, CBC, [id number], BMP, PTT #### [address] MCV (RBC) [Entitic vol] 85.9 fL Normal 83.5-101 [facility] Comment on above: Performed By: #### A 1C WTH eA, [id number], TSH3, PT, CBC, [id number], BMP, PTT #### [address] Mean Corpuscular HGB Conc 32.5 g/dL Normal 32.5-35.6 [facility] Comment on above: Performed By: #### A 1C WTH eA, [id number], TSH3, PT, CBC, [id number], BMP, PTT #### [address] Monocytes (Bld) [#/Vol] 0.6 10*3/uL Normal 0.0-0.8 [facility] Comment on above: Performed By: #### A 1C WTH eA, [id number], TSH3, PT, CBC, [id number], BMP, PTT #### [address] Monocytes/100 WBC (Bld) 8.3 % Normal . [facility] Comment on above: Performed By: #### A 1C WTH eA, [id number], TSH3, PT, CBC, [id number], BMP, PTT #### [address] Neutrophils (Bld) [#/Vol] 5.2 10*3/uL Normal 1.8-7.7 [facility] Comment on above: Performed By: #### A 1C WTH eA, [id number], TSH3, PT, CBC, [id number], BMP, PTT #### [address] Neutrophils/100 WBC (Bld) 67.9 % Normal . [facility] Comment on above: Performed By: #### A 1C WTH eA, [id number], TSH3, PT, CBC, [id number], BMP, PTT #### [address] NRBC% 0.0 /100{WBC} Normal 0-0.5 [facility] Comment on above: Performed By: #### A 1C WT eA, [id number], TSH3, PT, CBC, [id number], BMP, PTT #### [address] Platelet mean volume (Bld) [Entitic vol] 7.9 fL Normal 6.6-10.1 [facility] Comment on above: Performed By: #### A 1C WTH eA, [id number], TSH3, PT, CBC, [id number], BMP, PTT #### [address] Platelets (Bld) [#/Vol] 219 10*3/uL Normal 150-450 [facility] Comment on above: Performed By: #### A 1C WTH eA, [id number], TSH3, PT, CBC, [id number], BMP, PTT #### [address] RBC (Bld) [#/Vol] 4.58 10*6/uL Normal 3.90-5.60 [facility] Comment on above: Performed By: #### A 1C WTH eA, [id number], TSH3, PT, CBC, [id number], BMP, PTT #### [facility] [address] WBC (Bld) [#/Vol] 7.7 10*3/uL Normal 4.1-10.5 [facility] Comment on above: Performed By: #### A 1C WTH eA, [id number], TSH3, PT, CBC, [id number], BMP, PTT #### [facility] [address] Glucose Poct Glucometerson 0 06-21-2024 Commemt1 Glu2: Cleaned Meter Normal [facility] Comment on above: Result Comment: PERF ORMED BY: [place] [address] SUPERVISOR [employer] M.D. Performed By: #### A 1C WT eA, [id number], TSH3, PT, CBC, [id number], BMP, PTT #### [facility] [address] Glucose [Mass/Vol] 123 mg/dL Normal [facility] Comment on above: Result Comment: [facility] Glucose Reference Range is dependent on time and content of last meal. Glucose of more than 200 mg/dL in a nonstressed, ambulatory subject supports the diagnosis of Diabetes Mellitus. Performed By: #### A 1C WTH eA, [id number], TSH3, PT, CBC, [id number], BMP, PTT #### [facility] [address] Glucose [Mass/Vol] 151 mg/dL Normal [facility] Comment on above: Result Comment: [facility] Glucose Reference Range is dependent on time and content of last meal. Glucose of more than 200 mg/dL in a nonstressed, ambulatory subject supports the diagnosis of Diabetes Mellitus. PERFORMED BY: [place] [address] SUPERVISOR [employer] M.D. Performed By: #### A 1C WTH eA, [id number], TSH3, PT, CBC, [id number], BMP, PTT #### [address] Glucose [Mass/Vol] 129 mg/dL Normal [facility] Comment on above: Result Comment: [facility] Glucose Reference Range is dependent on time and content of last meal. Glucose of more than 200 mg/dL in a nonstressed, ambulatory subject supports the diagnosis of Diabetes Mellitus. PERFORMED BY: [place] [address] SUPERVISOR [employer] M.D. Performed By: #### A 1C WTH eA, [id number], TSH3, PT, CBC, [id number], BMP, PTT #### [address] Glucose [Mass/Vol] 114 mg/dL Normal [facility] Comment on above: Result Comment: [facility] Glucose Reference Range is dependent on time and content of last meal. Glucose of more than 200 mg/dL in a nonstressed, ambulatory subject supports the diagnosis of Diabetes Mellitus. PERFORMED BY: [place] [address] SUPERVISOR [employer] M.D. Performed By: #### A 1C WTH eA, [id number], TSH3, PT, CBC, [id number], BMP, PTT #### [address] Prothrombin Time INRon 06-21 INR Coag (PPP) [Relative time] 2.2 {INR} Normal [facility] Comment on [...] heart valves: 3 - 4.5 PERFORMED BY: [place] [address] SUPERVISOR [employer] M.D. Performed By: #### A 1C WTH eA, [id number], TSH3, PT, CBC, [id number], BMP, PTT #### [address] PT Coag (PPP) [Time] 25.2 s High 9.0-12.9 [facility] Comment on above: Result Comment: A he matocrit value greater than 55% may lead to inaccurate results in coagulation testing. Patients having hematocrit values >55% require a special collection tube for coagulation studies. Please contact the laboratory at [phone] for redraw instructions. Performed By: #### A 1C WTH eA, [id number], TSH3, PT, CBC, [id number], BMP, PTT #### [address] Basic Metabolic Panelon 07-3 Anion gap [Moles/Vol] 11.8 mmol/L Normal 6.0-15.0 [facility] Comment on above: Performed By: #### A 1C WTH eA, [id number], TSH3, PT, CBC, [id number], BMP, PTT #### [address] Calcium [Mass/Vol] 9.0 mg/dL Normal 8.6-10.3 [facility] Comment on above: Performed By: #### A 1C WTH eA, [id number], TSH3, PT, CBC, [id number], BMP, PTT #### [place] [address] [place] Chloride [Moles/Vol] 98 mmol/L Normal 98-107 [facility] Comment on above: Performed By: #### A 1C WTH eA, [id number], TSH3, PT, CBC, [id number], BMP, PTT #### [place] [address] [place] CO2 [Moles/Vol] 27.1 mmol/L Normal 21.0-31.0 [facility] Comment on above: Performed By: #### A 1C WTH eA, [id number], TSH3, PT, CBC, [id number], BMP, PTT #### [facility] [address] Creatinine [Mass/Vol] 1.48 mg/dL High 0.70-1.30 [facility] Comment on above: Performed By: #### A 1C WTH eA, [id number], TSH3, PT, CBC, [id number], BMP, PTT #### [address] Creatinine Clr Calc Pharmacy 54.81 Normal [facility] Comment on above: Result Comment: PERF ORMED BY: [place] [address] SUPERVISOR [employer] M.D. Performed By: #### A 1C WTH eA, [id number], TSH3, PT, CBC, [id number], BMP, PTT #### [address] GFR/1.73 sq M.predicted MDRD (S/P/Bld) [Vol rate/Area] 48.126 mL/min/{1.73_m2} Normal [facility] Comment on above: Performed By: #### A 1C WTH eA, [id number], TSH3, PT, CBC, [id number], BMP, PTT #### [address] Glucose [Mass/Vol] 128 mg/dL High 70-100 [facility] Comment on above: Result Comment: [facility] Glucose Reference Range is dependent on time and content of last meal. Glucose of more than 200 mg/dL in a nonstressed, ambulatory subject supports the diagnosis of Diabetes Mellitus. ADA recommended reference range Performed By: #### A 1C WTH eA, [id number], TSH3, PT, CBC, [id number], BMP, PTT #### [address] Potassium [Moles/Vol] 3.9 mmol/L Normal 3.5-5.1 [facility] Comment on above: Performed By: #### A 1C WTH eA, [id number], TSH3, PT, CBC, [id number], BMP, PTT #### [address] Sodium [Moles/Vol] 133 mmol/L Low 136-145 [facility] Comment on above: Performed By: #### A 1C WTH eA, [id number], TSH3, PT, CBC, [id number], BMP, PTT #### [address] Urea nitrogen [Mass/Vol] 40 mg/dL High 7-25 [facility] Comment on above: Performed By: #### A 1C WTH eA, [id number], TSH3, PT, CBC, [id number], BMP, PTT #### [address] Complete Blood Count Auto Di ffon 06-20-2024 Basophils (Bld) [#/Vol] 0.1 10*3/uL Normal 0.0-0.2 [facility] Comment on above: Result Comment: PERF ORMED BY: [place] [address] SUPERVISOR [employer] M.D. Performed By: #### A 1C WTH eA, [id number], TSH3, PT, CBC, [id number], BMP, PTT #### [address] Basophils/100 WBC (Bld) 0.7 % Normal . T [facility] Comment on above: Performed By: #### A 1C WTH eA, [id number], TSH3, PT, CBC, [id number], BMP, PTT #### [address] Eosinophils (Bld) [#/Vol] 0.2 10*3/uL Normal 0.0-0.45 [facility] Comment on above: Performed By: #### A 1C WTH eA, [id number], TSH3, PT, CBC, [id number], BMP, PTT #### [address] Eosinophils/100 WBC (Bld) 2.7 % Normal . [facility] Comment on above: Performed By: #### A 1C WTH eA, [id number], TSH3, PT, CBC, [id number], BMP, PTT #### [address] Erythrocyte distribution width (RBC) [Ratio] 16.5 % High 12.0-14.8 [facility] Comment on above: Performed By: #### A 1C WTH eA, [id number], TSH3, PT, CBC, [id number], BMP, PTT #### [address] Hematocrit (Bld) [Volume fraction] 39.5 % Normal 38.8-50.0 [facility] Comment on above: Performed By: #### A 1C WTH eA, [id number], TSH3, PT, CBC, [id number], BMP, PTT #### [address] Hemoglobin (Bld) [Mass/Vol] 12.6 g/dL Low 13.0-17.0 [facility] Comment on above: Performed By: #### A 1C WTH eA, [id number], TSH3, PT, CBC, [id number], BMP, PTT #### [address] Lymphocytes (Bld) [#/Vol] 1.6 10*3/uL Normal 1.00-4.8 [facility] Comment on above: Performed By: #### A 1C WTH eA, [id number], TSH3, PT, CBC, [id number], BMP, PTT #### [address] Lymphocytes/100 WBC (Bld) 18.3 % Normal . [facility] Comment on above: Performed By: #### A 1C WTH eA, [id number], TSH3, PT, CBC, [id number], BMP, PTT #### [address] MCH (RBC) [Entitic mass] 27.7 pg Normal 27.5-35.2 [facility] Comment on above: Performed By: #### A 1C WTH eA, [id number], TSH3, PT, CBC, [id number], BMP, PTT #### [address] MCV (RBC) [Entitic vol] 86.8 fL Normal 83.5-101 [facility] Comment on above: Performed By: #### A 1C WTH eA, [id number], TSH3, PT, CBC, [id number], BMP, PTT #### [address] Mean Corpuscular HGB Conc 31.9 g/dL Low 32.5-35.6 [facility] Comment on above: Performed By: #### A 1C WTH eA, [id number], TSH3, PT, CBC, [id number], BMP, PTT #### [address] Monocytes (Bld) [#/Vol] 0.7 10*3/uL Normal 0.0-0.8 [facility] Comment on above: Performed By: #### A 1C WTH eA, [id number], TSH3, PT, CBC, [id number], BMP, PTT #### [address] Monocytes/100 WBC (Bld) 8.0 % Normal . [facility] Comment on above: Performed By: #### A 1C WTH eA, [id number], TSH3, PT, CBC, [id number], BMP, PTT #### [address] Neutrophils (Bld) [#/Vol] 6.1 10*3/uL Normal 1.8-7.7 [facility] Comment on above: Performed By: #### A 1C WTH eA, [id number], TSH3, PT, CBC, [id number], BMP, PTT #### [address] Neutrophils/100 WBC (Bld) 70.3 % Normal . [facility] Comment on above: Performed By: #### A 1C WTH eA, [id number], TSH3, PT, CBC, [id number], BMP, PTT #### [address] NRBC% 0.2 /100{WBC} Normal 0-0.5 [facility] Comment on above: Performed By: #### A 1C WTH eA, [id number], TSH3, PT, CBC, [id number], BMP, PTT #### [address] Platelet mean volume (Bld) [Entitic vol] 8.1 fL Normal 6.6-10.1 [facility] Comment on above: Performed By: #### A 1C WTH eA, [id number], TSH3, PT, CBC, [id number], BMP, PTT #### [address] Platelets (Bld) [#/Vol] 232 10*3/uL Normal 150-450 [facility] Comment on above: Performed By: #### A 1C WTH eA, [id number], TSH3, PT, CBC, [id number], BMP, PTT #### [address] RBC (Bld) [#/Vol] 4.55 10*6/uL Normal 3.90-5.60 [facility] Comment on above: Performed By: #### A 1C WTH eA, [id number], TSH3, PT, CBC, [id number], BMP, PTT #### [address] WBC (Bld) [#/Vol] 8.7 10*3/uL Normal 4.1-10.5 [facility] Comment on above: Performed By: #### A 1C WT eA, [id number], TSH3, PT, CBC, [id number], BMP, PTT #### [facility] [address] [place] [id number] [facility] Glucose Poct Glucometerson 0 06-20-2024 Glucose [Mass/Vol] 131 mg/dL Normal [facility] Comment on above: Result Comment: [facility] om Glucose Reference Range is dependent on time and content of last meal. Glucose of more than 200 mg/dL in a nonstressed, ambulatory subject supports the diagnosis of Diabetes Mellitus. PERFORMED BY: [place] [address] SUPERVISOR [employer] M.D. Performed By: #### A 1C WTH eA, [id number], TSH3, PT, CBC, [id number], BMP, PTT #### [place] [id number] [facility] Glucose [Mass/Vol] 130 mg/dL Normal [facility] Comment on above: Result Comment: [facility] Glucose Reference Range is dependent on time and content of last meal. Glucose of more than 200 mg/dL in a nonstressed, ambulatory subject supports the diagnosis of Diabetes Mellitus. PERFORMED BY: [place] [address] SUPERVISOR [employer] M.D. Performed By: #### A 1C WTH eA, [id number], TSH3, PT, CBC, [id number], BMP, PTT #### [facility] [address] [place] [id number] [facility] Prothrombin Time INRon 06-20 INR Coag (PPP) [Relative time] 2.2 {INR} Normal [facility] Comment on [...] heart valves: 3 - 4.5 PERFORMED BY: [place] [address] SUPERVISOR [employer] M.D. Performed By: #### A 1C WTH eA, [id number], TSH3, PT, CBC, [id number], BMP, PTT #### [place] [id number] [facility] PT Coag (PPP) [Time] 25.4 s High 9.0-12.9 [facility] Comment on above: Result Comment: A he matocrit value greater than 55% may lead to inaccurate results in coagulation testing. Patients having hematocrit values >55% require a special collection tube for coagulation studies. Please contact the laboratory at [phone] for redraw instructions. Performed By: #### A 1C WTH eA, [id number], TSH3, PT, CBC, [id number], BMP, PTT #### [address] [address] [facility] A1C with Estimated Average G luon 06-19-2024 Glucose [Mass/Vol] 183 mg/dL Normal [facility] Comment on above: Result Comment: PERF ORMED BY: [address] SUPERVISOR [employer] M.D. Performed By: #### A 1C WTH eA, [id number], TSH3, PT, CBC, [id number], BMP, PTT #### [address] [address] [facility] Activated partial thrombopla stin time (aPTT) in platelet poor plasma by coagulation aOrdered By: Stalin Miranda on 06-19-2024 aPTT Coag (PPP) [Time] 38.4 s High 25.1-36.5 [facility] Comment on above: A hematocrit value g reater than 55% may lead to inaccurate results in coagulation testing. Patients having hematocrit values >55% require a special collection tube for coagulation studies. Please contact the laboratory at [phone] for redraw instructions. Basic Metabolic Panelon 07-3 0-2023 Anion gap [Moles/Vol] 9.5 mmol/L Normal 6.0-15.0 [facility] Comment on above: Performed By: #### A 1C WTH eA, [id number], TSH3, PT, CBC, [id number], BMP, PTT #### [address] Calcium [Mass/Vol] 9.5 mg/dL Normal 8.6-10.3 [facility] Comment on above: Performed By: #### A 1C WTH eA, [id number], TSH3, PT, CBC, [id number], BMP, PTT #### [address] Chloride [Moles/Vol] 98 mmol/L Normal 98-107 [facility] Comment on above: Performed By: #### A 1C WTH eA, [id number], TSH3, PT, CBC, [id number], BMP, PTT #### [address] CO2 [Moles/Vol] 29.8 mmol/L Normal 21.0-31.0 [facility] Comment on above: Performed By: #### A 1C WTH eA, [id number], TSH3, PT, CBC, [id number], BMP, PTT #### [address] Creatinine [Mass/Vol] 1.65 mg/dL High 0.70-1.30 [facility] Comment on above: Performed By: #### A 1C WTH eA, [id number], TSH3, PT, CBC, [id number], BMP, PTT #### [address] Creatinine Clr Calc Pharmacy 49.73 Normal [facility] Comment on above: Performed By: #### A 1C WTH eA, [id number], TSH3, PT, CBC, [id number], BMP, PTT #### [facility] [address] GFR/1.73 sq M.predicted MDRD (S/P/Bld) [Vol rate/Area] 42.239 mL/min/{1.73_m2} Normal [facility] Comment on above: Performed By: #### A 1C WTH eA, [id number], TSH3, PT, CBC, [id number], BMP, PTT #### [facility] [address] Glucose [Mass/Vol] 122 mg/dL High 70-100 [facility] Comment on above: Result Comment: [facility] Glucose Reference Range is dependent on time and content of last meal. Glucose of more than 200 mg/dL in a nonstressed, ambulatory subject supports the diagnosis of Diabetes Mellitus. ADA recommended reference range Performed By: #### A 1C WTH eA, [id number], TSH3, PT, CBC, [id number], BMP, PTT #### [address] Potassium [Moles/Vol] 4.3 mmol/L Normal 3.5-5.1 [facility] Comment on above: Performed By: #### A 1C WTH eA, [id number], TSH3, PT, CBC, [id number], BMP, PTT #### [address] Sodium [Moles/Vol] 133 mmol/L Low 136-145 [facility] Comment on above: Performed By: #### A 1C WTH eA, [id number], TSH3, PT, CBC, [id number], BMP, PTT #### [address] Urea nitrogen [Mass/Vol] 47 mg/dL High 7-25 [facility] Comment on above: Performed By: #### A 1C WTH eA, [id number], TSH3, PT, CBC, [id number], BMP, PTT #### [address] Complete Blood Count Auto Di ffon 06-19-2024 Basophils (Bld) [#/Vol] 0.1 10*3/uL Normal 0.0-0.2 [facility] Comment on above: Result Comment: PERF ORMED BY: [place] [address] SUPERVISOR OF [employer]OLD M.D. Performed By: #### A 1C WTH eA, [id number], TSH3, PT, CBC, [id number], BMP, PTT #### [address] Basophils/100 WBC (Bld) 1.2 % Normal . [place] bl[place] [facility] Comment on above: Performed By: #### A 1C WTH eA, [id number], TSH3, PT, CBC, [id number], BMP, PTT #### [address] Eosinophils (Bld) [#/Vol] 0.2 10*3/uL Normal 0.0-0.45 [facility] Comment on above: Performed By: #### A 1C WTH eA, [id number], TSH3, PT, CBC, [id number], BMP, PTT #### [address] Eosinophils/100 WBC (Bld) 1.6 % Normal . [facility] Comment on above: Performed By: #### A 1C WTH eA, [id number], TSH3, PT, CBC, [id number], BMP, PTT #### [address] Erythrocyte distribution width (RBC) [Ratio] 16.6 % High 12.0-14.8 [facility] Comment on above: Performed By: #### A 1C WTH eA, [id number], TSH3, PT, CBC, [id number], BMP, PTT #### [address] Hematocrit (Bld) [Volume fraction] 39.1 % Normal 38.8-50.0 [facility] Comment on above: Performed By: #### A 1C WT eA, [id number], TSH3, PT, CBC, [id number], BMP, PTT #### [address] Hemoglobin (Bld) [Mass/Vol] 12.8 g/dL Low 13.0-17.0 [facility] Comment on above: Performed By: #### A 1C WTH eA, [id number], TSH3, PT, CBC, [id number], BMP, PTT #### [address] Lymphocytes (Bld) [#/Vol] 1.9 10*3/uL Normal 1.00-4.8 [facility] Comment on above: Performed By: #### A 1C WTH eA, [id number], TSH3, PT, CBC, [id number], BMP, PTT #### [address] Lymphocytes/100 WBC (Bld) 19.8 % Normal . [facility] Comment on above: Performed By: #### A 1C WT eA, [id number], TSH3, PT, CBC, [id number], BMP, PTT #### [address] MCH (RBC) [Entitic mass] 28.0 pg Normal 27.5-35.2 [facility] Comment on above: Performed By: #### A 1C WTH eA, [id number], TSH3, PT, CBC, [id number], BMP, PTT #### [address] MCV (RBC) [Entitic vol] 85.8 fL Normal 83.5-101 T [facility] Comment on above: Performed By: #### A 1C WTH eA, [id number], TSH3, PT, CBC, [id number], BMP, PTT #### [address] Mean Corpuscular HGB Conc 32.6 g/dL Normal 32.5-35.6 [facility] Comment on above: Performed By: #### A 1C WTH eA, [id number], TSH3, PT, CBC, [id number], BMP, PTT #### [address] Monocytes (Bld) [#/Vol] 0.8 10*3/uL Normal 0.0-0.8 [facility] Comment on above: Performed By: #### A 1C WTH eA, [id number], TSH3, PT, CBC, [id number], BMP, PTT #### [address] Monocytes/100 WBC (Bld) 8.0 % Normal . T rianna [facility] Comment on above: Performed By: #### A 1C WTH eA, [id number], TSH3, PT, CBC, [id number], BMP, PTT #### [address] Neutrophils (Bld) [#/Vol] 6.8 10*3/uL Normal 1.8-7.7 [facility] Comment on above: Performed By: #### A 1C WTH eA, [id number], TSH3, PT, CBC, [id number], BMP, PTT #### [address] Neutrophils/100 WBC (Bld) 69.4 % Normal . [facility] Comment on above: Performed By: #### A 1C WTH eA, [id number], TSH3, PT, CBC, [id number], BMP, PTT #### [address] NRBC% 0.0 /100{WBC} Normal 0-0.5 [facility] Comment on above: Performed By: #### A 1C WTH eA, [id number], TSH3, PT, CBC, [id number], BMP, PTT #### [address] Platelet mean volume (Bld) [Entitic vol] 7.6 fL Normal 6.6-10.1 [facility] Comment on above: Performed By: #### A 1C WTH eA, [id number], TSH3, PT, CBC, [id number], BMP, PTT #### [facility] [address] Platelets (Bld) [#/Vol] 219 10*3/uL Normal 150-450 [facility] Comment on above: Performed By: #### A 1C WTH eA, [id number], TSH3, PT, CBC, [id number], BMP, PTT #### [facility] [address] RBC (Bld) [#/Vol] 4.56 10*6/uL Normal 3.90-5.60 [facility] Comment on above: Performed By: #### A 1C WTH eA, [id number], TSH3, PT, CBC, [id number], BMP, PTT #### [facility] [address] WBC (Bld) [#/Vol] 9.7 10*3/uL Normal 4.1-10.5 [facility] Comment on above: Performed By: #### A 1C WTH eA, [id number], TSH3, PT, CBC, [id number], BMP, PTT #### [facility] [address] ECH echo transthoracicon ECH echo transthoracic [facility] [place] [address] Echocardiogram Signed Patient: Nirmal Chaidez MR#: [id number] 9 : 1945 Acct:[id number] Age/Sex: 78 / M ADM Date: 06/19/24 Loc: Room: [address] [place] [address] Type: ADM IN Attending Dr: Stalin Miranda MD Ordering Provider: Carri Marques MD Date of Service: 06/19/24 ECH/ECH echo transthoracic: syncope Copies to: Milo Cameron MD, [facility] Carri Marques MD Weight: 314 lb Performed By: BERONICA [...] LV V1 VTI: 8.9 cm Transcribed By: SCV Performed At: 06/19/24 142 Signed By: Milo Cameron MD, [facility] 06/20/24 1410 Normal [facility] Folate [Mass/volume] in Seru m or PlasmaOrdered By: Stalin Miranda on 06-19-2024 Folate [Mass/Vol] 7.4 ng/mL >5.9 [facility] Comment on above: Folate reference ran ge: >5.9 ng/mlThe WHO technical consultation on folate and vitamin [id number] has determined that folate concentrations lessthan 4 ng/ml are considered deficient. Glucose Poct Glucometerson 0 06-19-2024 Glucose [Mass/Vol] 104 mg/dL Normal [facility] Comment on above: Result Comment: [facility] Glucose Reference Range is dependent on time and content of last meal. Glucose of more than 200 mg/dL in a nonstressed, ambulatory subject supports the diagnosis of Diabetes Mellitus. PERFORMED BY: [place] [address] SUPERVISOR [employer] M.D. Performed By: #### A 1C WTH eA, [id number], TSH3, PT, CBC, [id number], BMP, PTT #### [address] Commemt1 Glu2: Cleaned Meter Normal [facility] Comment on above: Result Comment: PERF ORMED BY: [place] [address] SUPERVISOR [employer] M.D. Performed By: #### A 1C WTH eA, [id number], TSH3, PT, CBC, [id number], BMP, PTT #### [address] Glucose [Mass/Vol] 109 mg/dL Normal [facility] Comment on above: Result Comment: [facility] Glucose Reference Range is dependent on time and content of last meal. Glucose of more than 200 mg/dL in a nonstressed, ambulatory subject supports the diagnosis of Diabetes Mellitus. Performed By: #### A 1C WTH eA, [id number], TSH3, PT, CBC, [id number], BMP, PTT #### [address] Commemt1 Glu2: Cleaned Meter Normal [facility] Comment on above: Result Comment: PERF ORMED BY: [place] [address] SUPERVIS[employer] M.D. Performed By: #### A 1C WTH eA, [id number], TSH3, PT, CBC, [id number], BMP, PTT #### [address] Glucose [Mass/Vol] 119 mg/dL Normal [facility] Comment on above: Result Comment: [facility] Glucose Reference Range is dependent on time and content of last meal. Glucose of more than 200 mg/dL in a nonstressed, ambulatory subject supports the diagnosis of Diabetes Mellitus. Performed By: #### A 1C WTH eA, [id number], TSH3, PT, CBC, [id number], BMP, PTT #### [address] [address] Glucose [Mass/Vol] 116 mg/dL Normal [facility] Comment on above: Result Comment: [facility] Glucose Reference Range is dependent on time and content of last meal. Glucose of more than 200 mg/dL in a nonstressed, ambulatory subject supports the diagnosis of Diabetes Mellitus. PERFORMED BY: [place] [address] SUPERVISOR [employer] M.D. Performed By: #### A 1C WTH eA, [id number], TSH3, PT, CBC, [id number], BMP, PTT #### [place] [id number] [facility] Glucose mean value [Mass/vol ume] in Blood Estimated from glycated hemoglobinOrdered By: Stalin Miranda on 06-19-2024 Average glucose Estimated from glycated hemoglobin (Bld) [Mass/Vol] 183 mg/dL [facility] Hemoglobin A1c percentageOrd ered By: Stalin Miranda on 06-19-2024 HbA1c (Bld) [Mass fraction] 8.0 % High 4.3-5.6 [facility] Comment on above: Increased risk for d iabetes: 5.7 - 6.4diabetes: >6.4glycemic control for adults with diabetes: <7.0 Result Comment: Incr eased risk for diabetes: 5.7 - 6.4 diabetes: >6.4 glycemic control for adults with diabetes: <7.0 Performed By: #### A 1C WTH eA, [id number], TSH3, PT, CBC, [id number], BMP, PTT #### [facility] [address] [place] [id number] [facility] Partial Thromboplastin Timeo n 06-19-2024 aPTT Coag (Bld) [Time] 38.4 s High 25.1-36.5 Th e [facility] Comment on above: Result Comment: A he matocrit value greater than 55% may lead to inaccurate results in coagulation testing. Patients having hematocrit values >55% require a special collection tube for coagulation studies. Please contact the laboratory at [phone] for redraw instructions. PERFORMED BY: [place] [address] SUPERVISOR [employer] M.D. Performed By: #### A 1C WTH eA, [id number], TSH3, PT, CBC, [id number], BMP, PTT #### [facility] [address] [place] [id number] [place] Prothrombin Time INRon 06-19 INR Coag (PPP) [Relative time] 2.4 {INR} Normal [facility] Comment on [...] Performed By: #### A 1C WTH eA, [id number], TSH3, PT, CBC, [id number], BMP, PTT #### [facility] [address] [place] [address] [facility] PT Coag (PPP) [Time] 27.1 s High 9.0-12.9 [facility] Comment on above: Result Comment: A he matocrit value greater than 55% may lead to inaccurate results in coagulation testing. Patients having hematocrit values >55% require a special collection tube for coagulation studies. Please contact the laboratory at [phone] for redraw instructions. Performed By: #### A 1C WTH eA, [id number], TSH3, PT, CBC, [id number], BMP, PTT #### [address] Thyrotropin [Units/volume] i n Serum or PlasmaOrdered By: Stalin Miranda on 06-19-2024 TSH Qn 2.14 m[IU]/L Normal 0.45-5.33 [facility] Comment on above: Performed By: #### A 1C WTH eA, [id number], TSH3, PT, CBC, [id number], BMP, PTT #### [address] Troponin I High Sensitivityo n 06-19-2024 Troponin I High Sensitivity 27.6 pg/mL High 0.0-20.0 [facility] Comment on above: Result Comment: PERF ORMED BY: [place] [address] SUPERVISOR [employer] M.D. Performed By: #### A 1C WTH eA, [id number], TSH3, PT, CBC, [id number], BMP, PTT #### [address] Troponin I.cardiac [Mass/vol ume] in Serum or Plasma by Detection limit <= 0.01 ng/Ordered By: Stalin Miranda on 06-19-2024 Troponin I.cardiac DL <= 0.01 ng/mL [Mass/Vol] 27.6 pg/mL High 0.0-20.0 [facility] Vit. B12/Folate Profileon Folate 7.4 ng/mL Normal >5.9 [facility] Comment on above: Result Comment: [place] te reference range: >5.9 ng/ml The WHO technical consultation on folate and vitamin b12 deficiencies has determined that folate concentrations less than 4 ng/ml are considered deficient. Performed By: #### A 1C WTH eA, [id number], TSH3, PT, CBC, [id number], BMP, PTT #### [facility] [address] Vitamin B12 ser/plasOrdered By: Stalin Miranda on 06-19-2024 Cobalamin (Vitamin B12) [Mass/Vol] 188 pg/mL Normal 180-914 [facility] Comment on above: Performed By: #### A 1C WTH eA, [id number], TSH3, PT, CBC, [id number], BMP, PTT #### [facility] [address] Vitamin D 25 Hydroxy Totalon 06-19-2024 Vitamin D 25 Hydroxy Total 26.8 ng/mL Low 30-100 [facility] Comment on above: Result Comment: MARYURI MIN D STATUS 25(OH)VITAMIN D RANGE (ng/mL) Deficient <20 Insufficient 20 to <30 Sufficient 30 to 100 Reference: Manuela PATEL,Sharad LUGO, [place] TOVAR, et al. Evaluation,treatment, and prevention of vitamin D deficiency; an Endocrine Society clinical practice guideline. JCEM. 2010; 96(7):1911-30. PERFORMED BY: [place] [address] SUPERVISOR OF [employer]OLD M.D. Performed By: #### A 1C WTH eA, [id number], TSH3, PT, CBC, [id number], BMP, PTT #### [facility] [address] [place] [id number] [facility] Vitamin D+Metabolites [Mass/ volume] in Serum or PlasmaOrdered By: Stalin Miranda on 06-19-2024 Vitamin D+Metabolites [Mass/Vol] 26.8 ng/mL Low 30-100 [facility] Comment on above: VITAMIN D STATUS 25( OH)VITAMIN D RANGE (ng/mL) Deficient <20 Insufficient 20 to <30Sufficient 30 to 100Reference: Manuela PATEL,Sharad NC, [place] TOVAR, et al. Evaluation,treatment, and prevention of vitamin D deficiency; an Endocrine Society clinical practice guideline. JCEM. 2010; 96(7):1911-30. Alanine aminotransferase [En zymatic activity/volume] in Serum or PlasmaOrdered By: Domenico Betancourt on 06-18-2024 ALT [Catalytic activity/Vol] 8 U/L Normal 7-52 [facility] Comment on above: Performed By: #### A 1C WTH eA, [id number], TSH3, PT, CBC, [id number], BMP, PTT #### [facility] [address] [place] [address] [place] Albumin [Mass/volume] in Ser um or Plasma by Bromocresol green (BCG) dye binding methoOrdered By: Domenico Betancourt on 06-18-2024 Albumin BCG dye [Mass/Vol] 3.9 g/dL 3.5-5.7 [facility] Alkaline phosphatase [Enzyma tic activity/volume] in Serum or PlasmaOrdered By: Domenico Betancourt on 06-18-2024 ALP [Catalytic activity/Vol] 85 U/L Normal 34-104 [facility] Comment on above: Performed By: #### A 1C WTH eA, [id number], TSH3, PT, CBC, [id number], BMP, PTT #### [facility] [address] [place] [id number] [place] Aspartate aminotransferase [ Enzymatic activity/volume] in Serum or PlasmaOrdered By: Domenico Betancourt on 06-18-2024 AST [Catalytic activity/Vol] 11 U/L Low 13-39 [facility] Comment on above: Performed By: #### A 1C WTH eA, [id number], TSH3, PT, CBC, [id number], BMP, PTT #### [facility] [address] [place] [id number] [place] Automated basophil %Ordered By: Domenico Betancourt on 06-18-2024 Basophils/100 WBC (Bld) 0.6 % Normal . [facility] Comment on above: Performed By: #### A 1C WTH eA, [id number], TSH3, PT, CBC, [id number], BMP, PTT #### [address] Automated basophil countOrde red By: Domenico Betancourt on 06-18-2024 Basophils (Bld) [#/Vol] 0.1 10*3/uL Normal 0.0-0.2 [facility] Comment on above: Result Comment: PERF ORMED BY: [place] [address] SUPERVISOR [employer] M.D. Performed By: #### A 1C [facility] eA, [id number], TSH3, PT, CBC, [id number], BMP, PTT #### [address] Automated blood monocyte cou ntOrdered By: Domenico Betancourt on 06-18-2024 Monocytes (Bld) [#/Vol] 0.7 10*3/uL Normal 0.0-0.8 [facility] Comment on above: Performed By: #### A 1C [facility] eA, [id number], TSH3, PT, CBC, [id number], BMP, PTT #### [address] Automated eosinophil %Ordere d By: Domenico Betancourt on 06-18-2024 Eosinophils/100 WBC (Bld) 1.1 % Normal . [facility] Comment on above: Performed By: #### A 1C [facility] eA, [id number], TSH3, PT, CBC, [id number], BMP, PTT #### [address] Automated eosinophil countOr dered By: Domenico Betancourt on 06-18-2024 Eosinophils (Bld) [#/Vol] 0.1 10*3/uL Normal 0.0-0.45 [facility] Comment on above: Performed By: #### A 1C [facility] eA, [id number], TSH3, PT, CBC, [id number], BMP, PTT #### [facility] [address] Automated monocyte %Ordered By: Domenico Betancourt on 06-18-2024 Monocytes/100 WBC (Bld) 5.6 % Normal . [facility] Comment on above: Performed By: #### A 1C WTH eA, [id number], TSH3, PT, CBC, [id number], BMP, PTT #### [address] Automated neutrophil %Ordere d By: Domenico Betancourt on 06-18-2024 Neutrophils/100 WBC (Bld) 73.9 % Normal . [facility] Comment on above: Performed By: #### A 1C WTH eA, [id number], TSH3, PT, CBC, [id number], BMP, PTT #### [address] BNP ser/plasOrdered By: Edgardo Betancourt on 06-18-2024 Natriuretic peptide B (Bld) [Mass/Vol] 50.0 pg/mL Normal 5-100 [facility] Comment on above: Result Comment: PERF ORMED BY: [place] [address] SUPERVISOR [employer] M.D. Performed By: #### A 1C WTH eA, [id number], TSH3, PT, CBC, [id number], BMP, PTT #### [address] Bacteria [Presence] in Urine by AutomatedOrdered By: Domenico Betancourt on 06-18-2024 Bacteria Auto Ql (U) None seen [HPF] None Seen [facility] Basic Metabolic Panelon 05-22 Creatinine Clr Calc Pharmacy 59.12 Normal [facility] Comment on above: Performed By: #### A 1C WTH eA, [id number], TSH3, PT, CBC, [id number], BMP, PTT #### [address] GFR/1.73 sq M.predicted MDRD (S/P/Bld) [Vol rate/Area] 51.445 mL/min/{1.73_m2} Normal [facility] Comment on above: Performed By: #### A 1C WT eA, [id number], TSH3, PT, CBC, [id number], BMP, PTT #### [facility] [address] Bilirubin Test strip Ql (U)O rdered By: Domenico Betancourt on 06-18-2024 Bilirubin Ql (U) Negative Negative [facility] Bilirubin.direct [Mass/volum e] in Serum or PlasmaOrdered By: Domenico Betancourt on 06-18-2024 Bilirubin.direct [Mass/Vol] 0.20 mg/dL High 0.03-0.18 [facility] Bilirubin.total [Mass/volume ] in Serum or PlasmaOrdered By: Domenico Betancourt on 06-18-2024 Bilirubin [Mass/Vol] 0.6 mg/dL Normal 0.3-1.0 [facility] Comment on above: Performed By: #### A 1C WT eA, [id number], TSH3, PT, CBC, [id number], BMP, PTT #### [facility] [address] COVID CepheidOrdered By: Frantz Betancourt on 06-18-2024 SARS-CoV-2 (COVID-19) Ab IA Ql Negative Negative [facility] Comment on above: This is a duplicate Cepheid Xpert Xpress CoV-2/Flu/RSV Plus RNA by RT-PCR result to be used for statistical tracking purpose only. SARS-CoV-2 (COVID-19) RNA NA+probe Ql (Unsp spec) [facility] COVID-19 / Flu A/B / RSV PCR [...] or Cepheid Disclaimer revoked sooner. PERFORMED BY: [facility] [address] [place] [address] SUPERVISOR OF [employer]OLD M.D. Normal [facility] Comment on above: Performed By: #### A 1C [facility] eA, [id number], TSH3, PT, CBC, [id number], BMP, PTT #### [facility] [address] abdomen pelvis wo [place] [address] 06-18-2024 CT abdomen pelvis wo con [facility] [place] [address] [place] [address] CT Scan Report Signed Patient: Nirmal Chaidez MR#: [id number] 9 : 1945 Acct:[id number] Age/Sex: 78 / M ADM Date: 06/18/24 Loc: ER Room: Type: [facility] ER Attending Dr: Copies to: Domenico Betancourt [...] Norberto Villalta M.D.06/18/2024 5:11 PM Dictation Location: [place] [address] Transcribed By: [facility] 06/18/24 171 Dictated By: Norberto Villalta II, MD 06/18/241703 Signed By: 06/18/24 171 Normal [facility] Calcium [Mass/volume] in Ser um or PlasmaOrdered By: Domenico Betancourt on 06-18-2024 Calcium [Mass/Vol] 9.7 mg/dL Normal 8.6-10.3 [facility] Comment on above: Performed By: #### A 1C WTH eA, [id number], TSH3, PT, CBC, [id number], BMP, PTT #### [address] Carbon dioxide, total [Moles /volume] in Serum or PlasmaOrdered By: Domenico Betancourt on 06-18-2024 CO2 [Moles/Vol] 25.8 mmol/L Normal 21.0-31.0 [facility] Comment on above: Performed By: #### A 1C WTH eA, [id number], TSH3, PT, CBC, [id number], BMP, PTT #### [facility] [address] [place] [id number] [facility] Cepheid COVID PCR Negativeon 06-18-2024 SARS-CoV-2 (COVID-19) RNA NA+probe Ql (Unsp spec) Negative Normal Negative [facility] Comment on above: Result Comment: This is a duplicate Cepheid Xpert Xpress CoV-2/Flu/RSV Plus RNA by RT-PCR result to be used for statistical tracking purpose only. PERFORMED BY: [place] [address] SUPERVISOR [employer]OLD M.D. Performed By: #### A 1C WTH eA, [id number], TSH3, PT, CBC, [id number], BMP, PTT #### [address] [address] [place] Chloride [Moles/volume] in S karla or PlasmaOrdered By: Domenico Betancourt on 06-18-2024 Chloride [Moles/Vol] 93 mmol/L Low 98-107 [facility] Comment on above: Performed By: #### A 1C WTH eA, [id number], TSH3, PT, CBC, [id number], BMP, PTT #### [facility] [address] [place] [address] [place] Color of Urine by AutoOrdere d By: Domenico Betancourt on 06-18-2024 Color (U) Light-yellow Normal Yellow [facility] Comment on above: Order Comment: Name Collection Type:: Clean-Voided Midstream Performed By: #### A 1C WTH eA, [id number], TSH3, PT, CBC, [id number], BMP, PTT #### [address] Complete Blood Count Auto Di ffon 06-18-2024 Mean Corpuscular HGB Conc 32.2 g/dL Low 32.5-35.6 [facility] Comment on above: Performed By: #### A 1C WTH eA, [id number], TSH3, PT, CBC, [id number], BMP, PTT #### [place] [address] [place] Monocytes/100 WBC (Bld) 19.75 % Normal 0.00-20.00 [facility] Comment on above: Performed By: #### A 1C WTH eA, [id number], TSH3, PT, CBC, [id number], BMP, PTT #### [place] [address] [place] NRBC% 0.1 /100{WBC} Normal 0-0.5 [facility] Comment on above: Performed By: #### A 1C WTH eA, [id number], TSH3, PT, CBC, [id number], BMP, PTT #### [place] [address] [place] Creatinine [Mass/volume] in Serum or PlasmaOrdered By: Domenico Betancourt on 06-18-2024 Creatinine [Mass/Vol] 1.40 mg/dL High 0.70-1.30 [facility] Comment on above: Performed By: #### A 1C WTH eA, [id number], TSH3, PT, CBC, [id number], BMP, PTT #### [address] Dipstick and Microscopicon 0 06-18-2024 Bacteria,Urine None Seen Normal None Seen [facility] Comment on above: Order Comment: Name Collection Type:: Clean-Voided Midstream Performed By: #### A 1C WTH eA, [id number], TSH3, PT, CBC, [id number], BMP, PTT #### [address] Bilirubin,Urine Negative Normal Negative [facility] Comment on above: Order Comment: Name Collection Type:: Clean-Voided Midstream Performed By: #### A 1C WTH eA, [id number], TSH3, PT, CBC, [id number], BMP, PTT #### [address] Glucose Ql (U) Normal Normal Normal [facility] Comment on above: Order Comment: Name Collection Type:: Clean-Voided Midstream Performed By: #### A 1C WTH eA, [id number], TSH3, PT, CBC, [id number], BMP, PTT #### [address] Hyaline Casts,Urine 0-8 Normal 0-8 [facility] Comment on above: Order Comment: Name Collection Type:: Clean-Voided Midstream Performed By: #### A 1C WTH eA, [id number], TSH3, PT, CBC, [id number], BMP, PTT #### [address] Mucus,Urine Rare Normal [facility] Comment on above: Order Comment: Name Collection Type:: Clean-Voided Midstream Result Comment: PERF ORMED BY: [place] [address] SUPERVISOR [employer] GOLD M.D. Performed By: #### A 1C WTH eA, [id number], TSH3, PT, CBC, [id number], BMP, PTT #### [address] Nitrite,Urine Negative Normal Negative [facility] Comment on above: Order Comment: Name Collection Type:: Clean-Voided Midstream Performed By: #### A 1C WTH eA, [id number], TSH3, PT, CBC, [id number], BMP, PTT #### [address] Occult Blood,Urine 2+ High Negative [facility] Comment on above: Order Comment: Name Collection Type:: Clean-Voided Midstream Result Comment: PERF ORMED BY: [place] [address] SU[employer] M.D. Performed By: #### A 1C WTH eA, [id number], TSH3, PT, CBC, [id number], BMP, PTT #### [address] Protein,Urine Negative Normal Negative [facility] Comment on above: Order Comment: Name Collection Type:: Clean-Voided Midstream Performed By: #### A 1C WTH eA, [id number], TSH3, PT, CBC, [id number], BMP, PTT #### [address] RBC,Urine 20-49 High 0-4 [facility] Comment on above: Order Comment: Name Collection Type:: Clean-Voided Midstream Performed By: #### A 1C WTH eA, [id number], TSH3, PT, CBC, [id number], BMP, PTT #### [address] Specificy Bejou,Urine 1.014 Normal 1.00 1-1.03 0 [facility] Comment on above: Order Comment: Name Collection Type:: Clean-Voided Midstream Performed By: #### A 1C WTH eA, [id number], TSH3, PT, CBC, [id number], BMP, PTT #### [address] Squamous Epithelial Cell,Urine 1-2 Normal 0-2 [facility] Comment on above: Order Comment: Name Collection Type:: Clean-Voided Midstream Performed By: #### A 1C WTH eA, [id number], TSH3, PT, CBC, [id number], BMP, PTT #### [address] Urobilinogen,Urine Normal Normal Normal [facility] Comment on above: Order Comment: Name Collection Type:: Clean-Voided Midstream Performed By: #### A 1C WTH eA, [id number], TSH3, PT, CBC, [id number], BMP, PTT #### [address] WBC,Urine 1-2 Normal 0-4 [facility] Comment on above: Order Comment: Name Collection Type:: Clean-Voided Midstream Performed By: #### A 1C WTH eA, [id number], TSH3, PT, CBC, [id number], BMP, PTT #### [place] [id number] [facility] ECG 12 lead ECGon 06-18-2024 ECG 12 lead ECG [facility] [place] [address] Electrocardiograph Report Signed Patient: Nirmal Chaidez MR#: [id number] 9 : 1945 Acct:[id number] Age/Sex: 78 / M ADM Date: 06/19/24 Loc: Room: [address] [place] [address] Type: ADM IN Attending Dr: Stalin Miranda [...] ischemia Abnormal ECG Confirmed by RAKESH OCONNELL [facility], MILO ([id number]) on 06/20/2024 4:29:19 PM Referred By: Electronically Signed By: MILO CAMERON MD [facility] Transcribed By: MUS Signed By Milo Cameron MD, [facility] 06/20/24 1629 Normal [facility] Epithelial cells.squamous [# /area] in Urine sediment by Automated countOrdered By: Domenico Betancourt on 06-18-2024 Epithelial cells.squamous Auto (Urine sed) [#/Area] 1-2 [HPF] 0-2 [facility] Erythrocyte distribution wid th [Ratio] by Automated countOrdered By: Domenico Betancourt on 06-18-2024 Erythrocyte distribution width (RBC) [Ratio] 16.8 % High 12.0-14.8 [facility] Comment on above: Performed By: #### A 1C WTH eA, [id number], TSH3, PT, CBC, [id number], BMP, PTT #### [facility] [address] Erythrocytes [#/area] in Uri ne sediment by Automated countOrdered By: Domenico Betancourt on 06-18-2024 RBC Auto (Urine sed) [#/Area] 20-49 [HPF] High 0-4 [facility] Erythrocytes [#/volume] in B lood by Automated countOrdered By: Domenico Betancourt on 06-18-2024 RBC (Bld) [#/Vol] 5.29 10*6/uL Normal 3.90-5.60 [facility] Comment on above: Performed By: #### A 1C WTH eA, [id number], TSH3, PT, CBC, [id number], BMP, PTT #### [facility] [address] Glucose Poct Glucometerson 0 06-18-2024 Glucose [Mass/Vol] 119 mg/dL Normal [facility] Comment on above: Result Comment: Fosters om Glucose Reference Range is dependent on time and content of last meal. Glucose of more than 200 mg/dL in a nonstressed, ambulatory subject supports the diagnosis of Diabetes Mellitus. PERFORMED BY: [place] [address] SUPERVISOR [employer] COR[employer]OLD M.D. Performed By: #### A 1C WTH eA, [id number], TSH3, PT, CBC, [id number], BMP, PTT #### [place] [address] [place] Glucose [Mass/volume] in Ser um or PlasmaOrdered By: Domenico Betancourt on 06-18-2024 Glucose [Mass/Vol] 158 mg/dL High 70-100 [facility] Comment on above: ADA recommended refe rence rangeRandom Glucose Reference Range is dependent on time and content of last meal. Glucose of more than 200 mg/dL in a nonstressed, ambulatory subject supports the diagnosis of Diabetes Mellitus. Result Comment: Fosters om Glucose Reference Range is dependent on time and content of last meal. Glucose of more than 200 mg/dL in a nonstressed, ambulatory subject supports the diagnosis of Diabetes Mellitus. ADA recommended reference range Performed By: #### A 1C WTH eA, [id number], TSH3, PT, CBC, [id number], BMP, PTT #### [facility] [address] [place] [address] [place] Glucose [Mass/volume] in Uri ne by Test stripOrdered By: Domenico Betancourt on 06-18-2024 Glucose Test strip (U) [Mass/Vol] Normal mg/dL Normal [facility] Hematocrit [Volume Fraction] of Blood by Automated countOrdered By: Domenico Betancourt on 06-18-2024 Hematocrit (Bld) [Volume fraction] 45.6 % Normal 38.8-50.0 [facility] Comment on above: Performed By: #### A 1C WTH eA, [id number], TSH3, PT, CBC, [id number], BMP, PTT #### [place] [address] [place] Hemoglobin Test strip Ql (U) Ordered By: Domenico Betancourt on 06-18-2024 Hemoglobin Ql (U) 2+ High Negative [facility] Hemoglobin [Mass/volume] in BloodOrdered By: Domenico Betancourt on 06-18-2024 Hemoglobin (Bld) [Mass/Vol] 14.7 g/dL Normal 13.0-17.0 [facility] Comment on above: Performed By: #### A 1C WT eA, [id number], TSH3, PT, CBC, [id number], BMP, PTT #### [facility] [address] Hepatic Panelon 06-18-2024 Albumin [Mass/Vol] 3.9 g/dL Normal 3.5-5.7 [facility] Comment on above: Performed By: #### A 1C WT eA, [id number], TSH3, PT, CBC, [id number], BMP, PTT #### [facility] [address] Bilirubin,Indirect 0.4 mg/dL Normal [facility] Comment on above: Performed By: #### A 1C WT eA, [id number], TSH3, PT, CBC, [id number], BMP, PTT #### [facility] [address] Bilirubin.indirect [Mass/Vol] 0.20 mg/dL High 0.03-0.18 [facility] Comment on above: Performed By: #### A 1C WTH eA, [id number], TSH3, PT, CBC, [id number], BMP, PTT #### [facility] [address] Hyaline casts [#/area] in Ur ine sediment by Automated countOrdered By: Domenico Betancourt on 06-18-2024 Hyaline casts Auto (Urine sed) [#/Area] 0-8 [LPF] 0-8 [facility] Ketones [Presence] in Urine by Test stripOrdered By: Domenico Betancourt on 06-18-2024 Ketones Ql (U) Negative Normal Negative [facility] Comment on above: Order Comment: Name Collection Type:: Clean-Voided Midstream Performed By: #### A 1C WTH eA, [id number], TSH3, PT, CBC, [id number], BMP, PTT #### [facility] [address] [place] [address] [place] Leukocyte esterase [Presence ] in Urine by Test stripOrdered By: Domenico Betancourt on 06-18-2024 Leukocyte esterase Test strip Ql (U) Negative Normal Negative [facility] Comment on above: Order Comment: Name Collection Type:: Clean-Voided Midstream Performed By: #### A 1C WTH eA, [id number], TSH3, PT, CBC, [id number], BMP, PTT #### [facility] [address] [place] [address] [place] Leukocytes [#/area] in Urine sediment by Automated countOrdered By: Domenico Betancourt on 06-18-2024 WBC Auto (Urine sed) [#/Area] 1-2 [HPF] 0-4 [facility] Leukocytes [#/volume] correc faraz for nucleated erythrocytes in Blood by Automated counOrdered By: Domenico Betancourt on 06-18-2024 WBC corrected for nucl RBC Auto (Bld) [#/Vol] 11.6 10*3/uL High 4.1-10.5 [facility] Leukocytes [#/volume] in Blo od by Automated countOrdered By: Domenico Betancourt on 06-18-2024 WBC (Bld) [#/Vol] 11.6 10*3/uL High 4.1-10.5 [facility] Comment on above: Performed By: #### A 1C WTH eA, [id number], TSH3, PT, CBC, [id number], BMP, PTT #### [facility] [address] [place] [address] [place] Lipase [Enzymatic activity/v olume] in Serum or PlasmaOrdered By: Domenico Betancourt on 06-18-2024 Lipase [Catalytic activity/Vol] 18.0 U/L Normal 11.0-82.0 [facility] Comment on above: Result Comment: PERF ORMED BY: [place] [address] SUPERVISOR [employer] M.D. Performed By: #### A 1C WTH eA, [id number], TSH3, PT, CBC, [id number], BMP, PTT #### [facility] [address] [place] [address] Lymphocytes [#/volume] in Bl ood by Automated countOrdered By: Domenico Betancourt on 06-18-2024 Lymphocytes (Bld) [#/Vol] 2.2 10*3/uL Normal 1.00-4.8 [facility] Comment on above: Performed By: #### A 1C WTH eA, [id number], TSH3, PT, CBC, [id number], BMP, PTT #### [address] Lymphocytes/100 leukocytes i n Blood by Automated countOrdered By: Domenico Betancourt on 06-18-2024 Lymphocytes/100 WBC (Bld) 18.8 % Normal . [facility] Comment on above: Performed By: #### A 1C WTH eA, [id number], TSH3, PT, CBC, [id number], BMP, PTT #### [address] MCH [Entitic mass] by Automa faraz countOrdered By: Domenico Betancourt on 06-18-2024 MCH (RBC) [Entitic mass] 27.8 pg Normal 27.5-35.2 [facility] Comment on above: Performed By: #### A 1C WTH eA, [id number], TSH3, PT, CBC, [id number], BMP, PTT #### [facility] [address] [place] [address] MCHC Auto (RBC) [Mass/Vol]Or dered By: Domenico Betancourt on 06-18-2024 MCHC (RBC) [Mass/Vol] 32.2 g/dL Low 32.5-35.6 [facility] MCV [Entitic volume] by Auto mated countOrdered By: Domenico Betancourt on 06-18-2024 MCV (RBC) [Entitic vol] 86.2 fL Normal 83.5-101 [facility] Comment on above: Performed By: #### A 1C [facility] eA, [id number], TSH3, PT, CBC, [id number], BMP, PTT #### [facility] [address] Monocyte distribution width [Entitic volume] in Blood by AutomatedOrdered By: Domenico Betancourt on 06-18-2024 Monocyte distribution width Auto (Bld) [Entitic vol] 19.75 % 0.00-20.00 [facility] Mucus [Presence] in Urine by AutomatedOrdered By: Domenico Betancourt on 06-18-2024 Mucus Auto Ql (U) Rare [LPF] [facility] Neutrophils [#/volume] in Bl ood by Automated countOrdered By: Domenico Betancourt on 06-18-2024 Neutrophils (Bld) [#/Vol] 8.6 10*3/uL High 1.8-7.7 [facility] Comment on above: Performed By: #### A 1C [facility] eA, [id number], TSH3, PT, CBC, [id number], BMP, PTT #### [facility] [address] Nitrite Test strip Ql (U)Ord ered By: Domenico Betancourt on 06-18-2024 Nitrite Ql (U) Negative Negative [facility] No Panel InformationOrdered By: Domenico Betancourt on 06-18-2024 Estimated GFR (CKD-EPI) 51.445 mL/Min [facility] Creatinine Clearance (Chem 59.12 [facility] Nucleated erythrocytes [Pres ence] in Blood by Automated countOrdered By: Domenico Betancourt on 06-18-2024 Nucleated RBC Auto Ql (Bld) 0.1 /100{WBC} 0-0.5 [facility] Platelet mean volume [Entiti c volume] in Blood by Automated countOrdered By: Domenico Betancourt on 06-18-2024 Platelet mean volume (Bld) [Entitic vol] 8.1 fL Normal 6.6-10.1 [facility] Comment on above: Performed By: #### A 1C WTH eA, [id number], TSH3, PT, CBC, [id number], BMP, PTT #### [facility] [address] Platelets [#/volume] in Bloo d by Automated countOrdered By: Domenico Betancourt on 06-18-2024 Platelets (Bld) [#/Vol] 255 10*3/uL Normal 150-450 [facility] Comment on above: Performed By: #### A 1C WTH eA, [id number], TSH3, PT, CBC, [id number], BMP, PTT #### [facility] [address] Potassium [Moles/volume] in Serum or PlasmaOrdered By: Domenico Betancourt on 06-18-2024 Potassium [Moles/Vol] 4.3 mmol/L Normal 3.5-5.1 [facility] Comment on above: Performed By: #### A 1C WTH eA, [id number], TSH3, PT, CBC, [id number], BMP, PTT #### [facility] [address] Protein Test strip (U) [Mass /Vol]Ordered By: Domenico Betancourt on 06-18-2024 Protein (U) [Mass/Vol] Negative Negative [facility] Protein [Mass/volume] in Ser um or PlasmaOrdered By: Domenico Betancourt on 06-18-2024 Protein [Mass/Vol] 7.4 g/dL Normal 6.4-8.9 [facility] Comment on above: Performed By: #### A 1C WTH eA, [id number], TSH3, PT, CBC, [id number], BMP, PTT #### [facility] [address] Prothrombin Time INRon 06-18 INR Coag (PPP) [Relative time] 2.5 {INR} Normal [facility] Comment on [...] heart valves: 3 - 4.5 PERFORMED BY: [place] [address] SUPERVISOR [employer] CORAL GOLD M.D. Performed By: #### P T #### [address] PT Coag (PPP) [Time] 28.6 s High 9.0-12.9 [facility] Comment on above: Result Comment: A he matocrit value greater than 55% may lead to inaccurate results in coagulation testing. Patients having hematocrit values >55% require a special collection tube for coagulation studies. Please contact the laboratory at [phone] for redraw instructions. Performed By: #### P T #### [address] Serum globulin measurement b y calculation (mass/volume)Ordered By: Domenico Betancourt on 06-18-2024 Globulin (S) [Mass/Vol] 3.5 g/dL Normal [facility] Comment on above: Performed By: #### A 1C WTH eA, [id number], TSH3, PT, CBC, [id number], BMP, PTT #### [address] Serum or plasma albumin/glob ulin mass ratioOrdered By: Domenico Betancourt on 06-18-2024 Albumin/Globulin [Mass ratio] 1.1 {ratio} Normal [facility] Comment on above: Performed By: #### A 1C WTH eA, [id number], TSH3, PT, CBC, [id number], BMP, PTT #### [address] Serum or plasma anion gap de terminationOrdered By: Domenico Betancourt on 06-18-2024 Anion gap [Moles/Vol] 15.5 mmol/L High 6.0-15.0 [facility] Comment on above: Performed By: #### A 1C WTH eA, [id number], TSH3, PT, CBC, [id number], BMP, PTT #### [facility] [address] Serum or plasma non-glucuron idated bilirubin measurement (mass/volume)Ordered By: Domenico Betancourt on 06-18-2024 Bilirubin.indirect [Mass/Vol] 0.4 mg/dL [facility] Sodium [Moles/volume] in Ser um or PlasmaOrdered By: Domenico Betancourt on 06-18-2024 Sodium [Moles/Vol] 130 mmol/L Low 136-145 [facility] Comment on above: Performed By: #### A 1C WTH eA, [id number], TSH3, PT, CBC, [id number], BMP, PTT #### [address] Specific gravity Test strip (U) [Rel density]Ordered By: Domenico Betancourt on 06-18-2024 Specific gravity (U) [Rel density] 1.014 1.001-1.03 0 [facility] Troponin I High Sensitivityo n 06-18-2024 Troponin I High Sensitivity 20.8 pg/mL High 0.0-20.0 [facility] Comment on above: Result Comment: PERF ORMED BY: [place] [address] SUPERVISOR [employer]OLD M.D. Performed By: #### H S TROP #### [address] Troponin I High Sensitivity 20.7 pg/mL High 0.0-20.0 [facility] Comment on above: Result Comment: PERF ORMED BY: [place] [address] SUPERVISOR [employer] M.D. Performed By: #### A 1C WTH eA, [id number], TSH3, PT, CBC, [id number], BMP, PTT #### [facility] [address] [place] [id number] [facility] Troponin I.cardiac [Mass/vol ume] in Serum or Plasma by Detection limit <= 0.01 ng/Ordered By: Domenico Betancourt on 06-18-2024 Troponin I.cardiac DL <= 0.01 ng/mL [Mass/Vol] 20.8 pg/mL High 0.0-20.0 [facility] Urea nitrogen [Mass/volume] in Serum or PlasmaOrdered By: Domenico Betancourt on 06-18-2024 Urea nitrogen [Mass/Vol] 41 mg/dL High 7-25 [facility] Comment on above: Performed By: #### A 1C WTH eA, [id number], TSH3, PT, CBC, [id number], BMP, PTT #### [place] [id number] [facility] Urine appearanceOrdered By: Domenico Betancourt on 06-18-2024 Appearance (U) Clear Normal Clear [facility] Comment on above: Order Comment: Name Collection Type:: Clean-Voided Midstream Performed By: #### A 1C WTH eA, [id number], TSH3, PT, CBC, [id number], BMP, PTT #### [place] [id number] [facility] Urobilinogen Test strip (U) [Mass/Vol]Ordered By: Domenico Betancourt on 06-18-2024 Urobilinogen (U) [Mass/Vol] Normal mg/dL Normal [facility] XR chest 1V portableon 06-18 XR chest 1V portable [facility] [address] [place] [address] [place] [address] XRay Report Signed Patient: Nirmal Chaidez MR#: [id number] 9 : 1945 Acct:[id number] Age/Sex: 78 / M ADM Date: 06/18/24 [...] Norberto Villalta M.D.06/18/2024 4:24 PM Dictation Location: [place] [address] Transcribed By: EVAN 06/18/241623 Dictated By: Norberto Villalta II, MD 06/18/241622 Signed By: 06/18/241623 Normal [facility] pH of Urine by Test stripOrd ered By: Domenico Betancourt on 06-18-2024 pH (U) 5.5 [pH] Normal 5.0-9.0 [facility] Comment on above: Order Comment: Name Collection Type:: Clean-Voided Midstream Performed By: #### A 1C WTH eA, [id number], TSH3, PT, CBC, [id number], BMP, PTT #### [facility] [address] [place] [address] [place] Alanine aminotransferase [En zymatic activity/volume] in Serum or PlasmaOrdered By: Marva Soriano on 04-23-2024 ALT [Catalytic activity/Vol] 8 U/L Normal 7 [facility] Comment on above: Performed By: #### A 1C WTH eA, [id number], TSH3, PT, CBC, [id number], BMP, PTT #### [facility] [address] [place] [id number] [place] Albumin [Mass/volume] in Ser um or Plasma by Bromocresol green (BCG) dye binding methoOrdered By: Marva Soriano on 04-23-2024 Albumin BCG dye [Mass/Vol] 3.7 g/dL 3.5-5.7 [facility] Alkaline phosphatase [Enzyma tic activity/volume] in Serum or PlasmaOrdered By: Marva Soriano on 04-23-2024 ALP [Catalytic activity/Vol] 79 U/L Normal 34-104 [facility] Comment on above: Result Comment: PERF ORMED BY: [place] [address] SUPERVISOR [employer] M.D. Performed By: #### A 1C WTH eA, [id number], TSH3, PT, CBC, [id number], BMP, PTT #### [address] Aspartate aminotransferase [ Enzymatic activity/volume] in Serum or PlasmaOrdered By: Marva Soriano on 04-23-2024 AST [Catalytic activity/Vol] 11 U/L Low 13-39 [facility] Comment on above: Performed By: #### A 1C WTH eA, [id number], TSH3, PT, CBC, [id number], BMP, PTT #### [facility] [address] BNP ser/plasOrdered By: Jeremías Soriano on 04-23-2024 Natriuretic peptide B (Bld) [Mass/Vol] 38.0 pg/mL Normal 5-100 [facility] Comment on above: Result Comment: PERF ORMED BY: [place] [address] SUPERVISOR [employer] M.D. Performed By: #### A 1C WTH eA, [id number], TSH3, PT, CBC, [id number], BMP, PTT #### [facility] [address] [place] [address] [place] Bilirubin.total [Mass/volume ] in Serum or PlasmaOrdered By: Marva Soriano on 04-23-2024 Bilirubin [Mass/Vol] 0.5 mg/dL Normal 0.3-1.0 [facility] Comment on above: Performed By: #### A 1C WTH eA, [id number], TSH3, PT, CBC, [id number], BMP, PTT #### [facility] [address] Calcium [Mass/volume] in Ser um or PlasmaOrdered By: Marva Soriano on 04-23-2024 Calcium [Mass/Vol] 9.4 mg/dL Normal 8.6-10.3 [facility] Comment on above: Performed By: #### A 1C WTH eA, [id number], TSH3, PT, CBC, [id number], BMP, PTT #### [facility] [address] Carbon dioxide, total [Moles /volume] in Serum or PlasmaOrdered By: Marva Soriano on 04-23-2024 CO2 [Moles/Vol] 28.4 mmol/L Normal 21.0-31.0 [facility] Comment on above: Performed By: #### A 1C WTH eA, [id number], TSH3, PT, CBC, [id number], BMP, PTT #### [facility] [address] Chloride [Moles/volume] in S karla or PlasmaOrdered By: Marva Soriano on 04-23-2024 Chloride [Moles/Vol] 97 mmol/L Low 98-107 [facility] Comment on above: Performed By: #### A 1C WTH eA, [id number], TSH3, PT, CBC, [id number], BMP, PTT #### [facility] [address] Comprehensive Metabolic Pane estrella 04-23-2024 Albumin [Mass/Vol] 3.7 g/dL Normal 3.5-5.7 [facility] Comment on above: Performed By: #### A 1C WTH eA, [id number], TSH3, PT, CBC, [id number], BMP, PTT #### [facility] [address] [place] [id number] [facility] GFR/1.73 sq M.predicted MDRD (S/P/Bld) [Vol rate/Area] 52.342 mL/min/{1.73_m2} Normal [facility] Comment on above: Performed By: #### A 1C WTH eA, [id number], TSH3, PT, CBC, [id number], BMP, PTT #### [facility] [address] Creatinine [Mass/volume] in Serum or PlasmaOrdered By: Marva Soriano on 04-23-2024 Creatinine [Mass/Vol] 1.38 mg/dL High 0.70-1.30 [facility] Comment on above: Performed By: #### A 1C WTH eA, [id number], TSH3, PT, CBC, [id number], BMP, PTT #### [facility] [address] [place] [id number] [place] Glucose [Mass/volume] in Ser um or PlasmaOrdered By: Marva Soriano on 04-23-2024 Glucose [Mass/Vol] 226 mg/dL High 70-100 [facility] Comment on above: ADA recommended refe rence rangeRandom Glucose Reference Range is dependent on time and content of last meal. Glucose of more than 200 mg/dL in a nonstressed, ambulatory subject supports the diagnosis of Diabetes Mellitus. Result Comment: Fosters om Glucose Reference Range is dependent on time and content of last meal. Glucose of more than 200 mg/dL in a nonstressed, ambulatory subject supports the diagnosis of Diabetes Mellitus. ADA recommended reference range Performed By: #### A 1C WTH eA, [id number], TSH3, PT, CBC, [id number], BMP, PTT #### [facility] [address] No Panel InformationOrdered By: Marva Soriano on 04-23-2024 Estimated GFR (CKD-EPI) 52.342 mL/Min [facility] Creatinine Clearance (Chem N/A [facility] Potassium [Moles/volume] in Serum or PlasmaOrdered By: Marva Soriano on 04-23-2024 Potassium [Moles/Vol] 3.9 mmol/L Normal 3.5-5.1 [facility] Comment on above: Performed By: #### A 1C WTH eA, [id number], TSH3, PT, CBC, [id number], BMP, PTT #### [facility] [address] Protein [Mass/volume] in Ser um or PlasmaOrdered By: Marva Soriano on 04-23-2024 Protein [Mass/Vol] 7.1 g/dL Normal 6.4-8.9 [facility] Comment on above: Performed By: #### A 1C WTH eA, [id number], TSH3, PT, CBC, [id number], BMP, PTT #### [facility] [address] Serum globulin measurement b y calculation (mass/volume)Ordered By: Marva Soriano on 04-23-2024 Globulin (S) [Mass/Vol] 3.4 g/dL Normal [facility] Comment on above: Performed By: #### A 1C WTH eA, [id number], TSH3, PT, CBC, [id number], BMP, PTT #### [address] Serum or plasma albumin/glob ulin mass ratioOrdered By: Marva Soriano on 04-23-2024 Albumin/Globulin [Mass ratio] 1.1 {ratio} Normal [facility] Comment on above: Performed By: #### A 1C WTH eA, [id number], TSH3, PT, CBC, [id number], BMP, PTT #### [facility] [address] [place] [address] Serum or plasma anion gap de terminationOrdered By: Marva Soriano on 04-23-2024 Anion gap [Moles/Vol] 13.5 mmol/L Normal 6.0-15.0 [facility] Comment on above: Performed By: #### A 1C WTH eA, [id number], TSH3, PT, CBC, [id number], BMP, PTT #### [address] Sodium [Moles/volume] in Ser um or PlasmaOrdered By: Marva Soriano on 06-03-2024 Sodium [Moles/Vol] 135 mmol/L Low 136-145 [facility] Comment on above: Performed By: #### A 1C WTH eA, [id number], TSH3, PT, CBC, [id number], BMP, PTT #### [facility] [address] [place] [id number] [facility] Urea nitrogen [Mass/volume] in Serum or PlasmaOrdered By: Marva Soriano on 04-23-2024 Urea nitrogen [Mass/Vol] 42 mg/dL High 7-25 [facility] Comment on above: Performed By: #### A 1C WTH eA, [id number], TSH3, PT, CBC, [id number], BMP, PTT #### [facility] [address] [place] [id number] [facility] XR abdomen 1Von 04-23-2024 XR abdomen 1V [facility] [place] [address] [place] [address] XRay Report Signed Patient: Nirmal Chaidez MR#: [id number] 9 : 1945 Acct:[id number] Age/Sex: 78 / M ADM Date: 04/23/24 Loc: XD Room: Type: [facility] Attending Dr: Marva VALADEZ Copies to: [facility] [...] Ping Vora M.D.04/23/2024 5:03 PM Dictation Location: [facility]--12 Transcribed By: EVAN 04/23/241702 Dictated By: Ping Vora MD 04/23/241700 Signed By: 04/23/241702 Normal [facility] Activated partial thrombopla stin time (aPTT) in platelet poor plasma by coagulation aOrdered By: Ran Addison on 05-14-2023 aPTT Coag (PPP) [Time] 33.4 s 25.1-36.5 [facility] Alanine aminotransferase [En zymatic activity/volume] in Serum or PlasmaOrdered By: Ran Addison on 05-14-2023 ALT [Catalytic activity/Vol] 8 U/L 7-52 [facility] Albumin [Mass/volume] in Ser um or Plasma by Bromocresol green (BCG) dye binding methoOrdered By: Ran Addison on 05-14-2023 Albumin BCG dye [Mass/Vol] 3.6 g/dL 3.5-5.7 [facility] Alkaline phosphatase [Enzyma tic activity/volume] in Serum or PlasmaOrdered By: Ran Addison on 05-14-2023 ALP [Catalytic activity/Vol] 87 U/L 34-104 [facility] Aspartate aminotransferase [ Enzymatic activity/volume] in Serum or PlasmaOrdered By: Ran Addison on 05-14-2023 AST [Catalytic activity/Vol] 13 U/L 13-39 [facility] Basophils Auto (Bld) [#/Vol] Ordered By: Ran Addison on 05-14-2023 Basophils (Bld) [#/Vol] 0.1 10*3/uL 0.0-0.2 [facility] Basophils/100 WBC Auto (Bld) Ordered By: Ran Addison on 05-14-2023 Basophils/100 WBC (Bld) 0.5 % . [facility] Bilirubin.total [Mass/volume ] in Serum or PlasmaOrdered By: Ran Addison on 05-14-2023 Bilirubin [Mass/Vol] 0.6 mg/dL 0.3-1.0 [facility] Calcium [Mass/volume] in Ser um or PlasmaOrdered By: Ran Addison on 05-14-2023 Calcium [Mass/Vol] 8.8 mg/dL 8.6-10.3 [facility] Carbon dioxide, total [Moles /volume] in Serum or PlasmaOrdered By: Ran Addison on 05-14-2023 CO2 [Moles/Vol] 25.7 mmol/L 21.0-31.0 [facility] Chloride [Moles/volume] in S karla or PlasmaOrdered By: Ran Addison on 05-14-2023 Chloride [Moles/Vol] 99 mmol/L 98-107 [facility] Creatinine [Mass/volume] in Serum or PlasmaOrdered By: Ran Addison on 05-14-2023 Creatinine [Mass/Vol] 1.70 mg/dL 0.70-1.30 [facility] Eosinophils Auto (Bld) [#/Vo l]Ordered By: Ran Addison on 05-14-2023 Eosinophils (Bld) [#/Vol] 0.2 10*3/uL 0.0-0.45 [facility] Eosinophils/100 WBC Auto (Bl d)Ordered By: Ran Addison on 05-14-2023 Eosinophils/100 WBC (Bld) 1.7 % . [facility] Erythrocyte distribution wid th Auto (RBC) [Ratio]Ordered By: Ran Addison on 05-14-2023 Erythrocyte distribution width (RBC) [Ratio] 15.7 % 12.0-14.8 [facility] Ethanol [Mass/volume] in Ser um or PlasmaOrdered By: Ran Addison on 05-14-2023 Ethanol [Mass/Vol] mg/dL [facility] Ethanol [Mass/Vol] TNP [facility] Comment on above: Test not performed Globulin Calc (S) [Mass/Vol] Ordered By: Ran Addison on 05-14-2023 Globulin (S) [Mass/Vol] 3.2 g/dL [facility] Glucose Glucometer (BldC) [M ass/Vol]Ordered By: Ran Addison on 05-14-2023 Glucose [Mass/Vol] 175 mg/dL [facility] Comment on above: Random Glucose Refer ence Range is dependent on time and content of last meal. Glucose of more than 200 mg/dL in a nonstressed, ambulatory subject supports the diagnosis of Diabetes Mellitus. Glucose [Mass/volume] in Ser um or PlasmaOrdered By: Ran Addison on 05-14-2023 Glucose [Mass/Vol] 156 mg/dL 70-100 [facility] Comment on above: ADA recommended refe rence rangeRandom Glucose Reference Range is dependent on time and content of last meal. Glucose of more than 200 mg/dL in a nonstressed, ambulatory subject supports the diagnosis of Diabetes Mellitus. Hematocrit Auto (Bld) [Volum e fraction]Ordered By: Ran Addison on 05-14-2023 Hematocrit (Bld) [Volume fraction] 40.1 % 38.8-50.0 [facility] Hemoglobin [Mass/volume] in BloodOrdered By: Ran Addison on 05-14-2023 Hemoglobin (Bld) [Mass/Vol] 13.0 g/dL 13.0-17.0 [facility] Laboratory - CoagulationOrde red By: Ran Addison on 05-14-2023 PT Coag (PPP) [Time] 26.6 s 9.0-12.9 [facility] Leukocytes [#/volume] correc faraz for nucleated erythrocytes in Blood by Automated counOrdered By: Ran Addison on 05-14-2023 WBC corrected for nucl RBC Auto (Bld) [#/Vol] 10.5 10*3/uL 4.1-10.5 [facility] Lymphocytes Auto (Bld) [#/Vo l]Ordered By: Ran Addison on 05-14-2023 Lymphocytes (Bld) [#/Vol] 1.6 10*3/uL 1.00-4.8 [facility] Lymphocytes/100 WBC Auto (Bl d)Ordered By: Ran Addison on 05-14-2023 Lymphocytes/100 WBC (Bld) 15.6 % . [facility] MCH Auto (RBC) [Entitic mass ]Ordered By: Ran Addison on 05-14-2023 MCH (RBC) [Entitic mass] 29.8 pg 27.5-35.2 [facility] MCHC Auto (RBC) [Mass/Vol]Or dered By: Ran Addison on 05-14-2023 MCHC (RBC) [Mass/Vol] 32.5 g/dL 32.5-35.6 [facility] MCV Auto (RBC) [Entitic vol] Ordered By: Ran Addison on 05-14-2023 MCV (RBC) [Entitic vol] 91.8 fL 83.5-101 [facility] Monocyte distribution width [Entitic volume] in Blood by AutomatedOrdered By: Ran Addison on 05-14-2023 Monocyte distribution width Auto (Bld) [Entitic vol] 24.22 % 0.00-20.00 [facility] Comment on above: For adults in ED, MD W > 20.0 may be associated with a higher risk of sepsis during the first 12 hrs of hospital admission Monocytes Auto (Bld) [#/Vol] Ordered By: Ran Addison on 05-14-2023 Monocytes (Bld) [#/Vol] 0.4 10*3/uL 0.0-0.8 [facility] Monocytes/100 WBC Auto (Bld) Ordered By: Ran Addison on 05-14-2023 Monocytes/100 WBC (Bld) 4.0 % . [facility] Neutrophils Auto (Bld) [#/Vo l]Ordered By: Ran Addison on 05-14-2023 Neutrophils (Bld) [#/Vol] 8.2 10*3/uL 1.8-7.7 [facility] Neutrophils/100 WBC Auto (Bl d)Ordered By: Ran Addison on 05-14-2023 Neutrophils/100 WBC (Bld) 78.2 % . [facility] No Panel InformationOrdered By: Ran Addison on 05-14-2023 Estimated GFR (CKD-EPI) 41.007 mL/Min [facility] Creatinine Clearance (Chem 50.02 [facility] Nucleated erythrocytes [Pres ence] in Blood by Automated countOrdered By: Ran Addison on 05-14-2023 Nucleated RBC Auto Ql (Bld) 0.1 /100{WBC} 0-0.5 [facility] Platelet mean volume Auto (B ld) [Entitic vol]Ordered By: Ran Addison on 05-14-2023 Platelet mean volume (Bld) [Entitic vol] 7.6 fL 6.6-10.1 [facility] Platelet poor plasma interna tional normalized ratio (INR) by coagulation assay (relatOrdered By: Ran Addison on 05-14-2023 INR Coag (PPP) [Relative time] 2.3 {INR} [facility] Comment on above: INR Therapeutic Rang e [...] 05-14-2023 Platelets (Bld) [#/Vol] 225 10*3/uL 150-450 [facility] Potassium [Moles/volume] in Serum or PlasmaOrdered By: Ran Addison on 05-14-2023 Potassium [Moles/Vol] 3.7 mmol/L 3.5-5.1 [facility] Protein [Mass/volume] in Ser um or PlasmaOrdered By: Ran Addison on 05-14-2023 Protein [Mass/Vol] 6.8 g/dL 6.4-8.9 [facility] RBC Auto (Bld) [#/Vol]Ordere d By: Ran Addison on 05-14-2023 RBC (Bld) [#/Vol] 4.36 10*6/uL 3.90-5.60 [facility] Serum or plasma albumin/glob ulin mass ratioOrdered By: Ran Addison on 05-14-2023 Albumin/Globulin [Mass ratio] 1.1 {ratio} [facility] Serum or plasma anion gap de terminationOrdered By: Ran Addison on 05-14-2023 Anion gap [Moles/Vol] 14.0 mmol/L 6.0-15.0 [facility] Sodium [Moles/volume] in Ser um or PlasmaOrdered By: Ran Addison on 05-14-2023 Sodium [Moles/Vol] 135 mmol/L 136-145 [facility] Troponin I.cardiac [Mass/vol ume] in Serum or Plasma by Detection limit <= 0.01 ng/Ordered By: Ran Addison on 05-14-2023 Troponin I.cardiac DL <= 0.01 ng/mL [Mass/Vol] 18.4 pg/mL 0.0-20.0 [facility] Urea nitrogen [Mass/volume] in Serum or PlasmaOrdered By: Ran Addison on 05-14-2023 Urea nitrogen [Mass/Vol] 38 mg/dL 06-14 [facility] WBC Auto (Bld) [#/Vol]Ordere d By: Ran Addison on 05-14-2023 WBC (Bld) [#/Vol] 10.5 10*3/uL 4.1-10.5 [facility] Tobacco Screening.on 023 Adult depression screening assessment No [facility] [employer] 250 DO Work Phone: Fall risk assessment a) No falls within the last year [facility] [employer] 250 DO Work Phone: Tobacco use status CPHS b) No [facility] [employer] 250 DO Work Phone: GLYCOHEMOGLOBIN A1Con 2022 ADA RECOMMENDATION SEE BELOW Normal [facility] Comment on above: Result Comment: ADA RECOMMENDED LIMIT 4.0 - 6.0 ADA THERAPEUTIC TARGET < 7.0 ACTION SUGGESTED > 7.0 Performed By: #### A 1C #### [facility] [address] [place] [address] Dr. Cuco Gilliam Glucose [Mass/Vol] 177 mg/dL Normal [facility] Comment on above: Performed By: #### A 1C #### [facility] [address] [address] [address] Cuco Gilliam HbA1c (Bld) [Mass fraction] 7.8 % Critically high 4.5-6.2 [facility] Comment on above: Performed By: #### A 1C #### [facility] [address] [place] [address] Dr. Cuco Gilliam CBC AUTO DIFFon 10-28-2022 BASO # 0.0 103/ul Normal 0.0-0.1 [facility] Comment on above: Performed By: #### C BC #### [facility] [address] [place] [address] Dr. Cuco Gilliam Basophils/100 WBC (Bld) 0.4 % Normal 0.2-2.0 [facility] Comment on above: Performed By: #### C BC #### [facility] [address] [place] [address] Dr. Cuco Gilliam EO # 0.1 103/ul Normal 0.0-0.7 [facility] Comment on above: Performed By: #### C BC #### [facility] [address] [place] [address] Dr. Cuco Gilliam Eosinophils/100 WBC (Bld) 0.9 % Normal 0.9-7.0 [facility] Comment on above: Performed By: #### C BC #### [facility] [address] [place] [address] Dr. Cuco Gilliam Erythrocyte distribution width (RBC) [Ratio] 15.9 % Critically high 11.0-15.0 [facility] Comment on above: Performed By: #### C BC #### [facility] [address] [place] [address] Dr. Cuco Gilliam Hematocrit (Bld) [Volume fraction] 47.8 % Normal 42.0-54.0 [facility] Comment on above: Performed By: #### C BC #### [facility] [address] [place] [address] Dr. Cuco Gilliam Hemoglobin (Bld) [Mass/Vol] 14.9 g/dL Normal 14.0-18.0 [facility] Comment on above: Performed By: #### C BC #### [facility] [address] [place] [address] Dr. Cuco Gilliam IG # 0.05 10e3/ul Critically high 0.00-0.03 [facility] Comment on above: Performed By: #### C BC #### [facility] [address] [place] [address] Dr. Cuco Gilliam IG % 0.5 % Normal 0.0-0.5 [facility] Comment on above: Performed By: #### C BC #### [facility] [address] [place] [address] Dr. Cuco Gilliam LYMPH # 1.8 103/ul Normal 1.2-3.8 [facility] Comment on above: Performed By: #### C BC #### [facility] [address] [place] [address] Dr. Cuco Gilliam Lymphocytes/100 WBC (Bld) 17.3 % Critically low 20.5-60.0 [facility] Comment on above: Performed By: #### C BC #### [facility] [address] [place] [address] Dr. Cuco Gilliam MANUAL DIFF REQ NO Normal [facility] Comment on above: Performed By: #### C BC #### [facility] [address] [place] [address] Dr. Cuco Gilliam MCH (RBC) [Entitic mass] 28.4 pg Normal 25.9-34.0 [facility] Comment on above: Performed By: #### C BC #### [facility] [address] [place] [address] Dr. Cuco Gilliam MCHC (RBC) [Mass/Vol] 31.2 g/dL Normal 29.9-35.2 [facility] Comment on above: Performed By: #### C BC #### [facility] [address] [place] [address] Dr. Cuco Gilliam MCV (RBC) [Entitic vol] 91.2 fL Normal 80.0-94.0 [facility] Comment on above: Performed By: #### C BC #### [facility] [address] [place] [address] Dr. Cuco Gilliam MONO # 0.7 103/ul Normal 0.3-0.8 [facility] Comment on above: Performed By: #### C BC #### [facility] [address] [place] [address] Dr. Cuco Gilliam Monocytes/100 WBC (Bld) 6.8 % Normal 1.7-12.0 [facility] Comment on above: Performed By: #### C BC #### [facility] [address] [address] [address] Cuco Gilliam NEUT # 7.7 103/ul Critically high 1.4-6.5 [facility] Comment on above: Performed By: #### C BC #### [facility] [address] [address] [address] Cuco Gilliam Neutrophils/100 WBC (Bld) 74.1 % Normal 43.0-75.0 [facility] Comment on above: Performed By: #### C BC #### [facility] [address] [address] [address] Cuco Gilliam Platelet mean volume (Bld) [Entitic vol] 9.1 fL Critically low 9.5-13.5 [facility] Comment on above: Performed By: #### C BC #### [facility] [address] [address] [address] Cuco Gilliam PLT 218 103/ul Normal 150-450 [facility] Comment on above: Performed By: #### C BC #### [facility] [address] [place] [address] Dr. Cuco Gilliam RBC 5.24 106/ul Normal 4.70-6.10 [facility] Comment on above: Performed By: #### C BC #### [facility] [address] [address] [address] Cuco Gilliam WBC 10.4 103/ul Normal 4.0-11.0 [facility] Comment on above: Performed By: #### C BC #### [facility] [address] [place] [address] Dr. Cuco Gilliam LIPID PROFILEon 10-28-2022 CHOL-HDL RATIO NORM SEE BELOW Normal [facility] Comment on above: Result Comment: 3.3 - 4.4 LOW RISK 4.4 - 7.1 AVERAGE RISK 7.1 - 11.0 MODERATE RISK >11.0 HIGH RISK Performed By: #### B MP, LIPID #### [facility] [address] [place] [address] Dr. Cuco Gilliam Cholesterol [Mass/Vol] 142 mg/dL Normal <=200 Th [facility] Comment on above: Performed By: #### B MP, LIPID #### [facility] [address] [place] [address] Dr. Cuco Gilliam Cholesterol in HDL [Mass/Vol] 59 mg/dL Normal 40-60 [facility] Comment on above: Performed By: #### B MP, LIPID #### [facility] [address] [address] [address] Cuco Gilliam Cholesterol in LDL [Mass/Vol] 69.4 mg/dL Normal [facility] Comment on above: Performed By: #### B MP, LIPID #### [facility] [address] [place] [address] Dr. Cuco Gilliam Cholesterol.total/Amirah sterol in HDL [Mass ratio] 2.4 {ratio} Normal [facility] Comment on above: Performed By: #### B MP, LIPID #### [facility] [address] [place] [address] Dr. Cuco Gilliam HDL NORMAL > or = 60 mg/dl - LO W CARDIOVASCULAR RISK <40 mg/dl - HIGH CARDIOVASCULAR RISK Normal [facility] Comment on above: Performed By: #### B MP, LIPID #### [facility] [address] [place] [address] Dr. Cuco Gilliam LDL CALC NORMAL SEE BELOW Normal [facility] Comment on above: Result Comment: <100 mg/dl OPTIMAL 100 - 129 mg/dl NEAR OR ABOVE OPTIMAL 130 - 159 mg/dl BORDERLINE HIGH 160 - 189 mg/dl HIGH >190 mg/dl VERY HIGH Performed By: #### B MP, LIPID #### [facility] [address] [place] [address] Dr. Cuco Gilliam Triglyceride [Mass/Vol] 68 mg/dL Normal <=150 T [facility] Comment on above: Performed By: #### B MP, LIPID #### [facility] [address] [place] [address] Dr. Cuco Gilliam VLDL CALC 13.6 mg/dL Normal [facility] Comment on above: Performed By: #### B MP, LIPID #### [facility] [address] [address] [address] Cuco Gilliam MICROALBUMIN, RAND URon 12-0 mALB 9.0 mg/L Normal <=30.0 [facility] Comment on above: Performed By: #### M ALBR #### [facility] [address] [place] [address] Dr. Cuco Gilliam PROF CHEM 8 (BAS METB)on Anion gap [Moles/Vol] 8.2 mmol/L Normal [facility] Comment on above: Performed By: #### B MP, LIPID #### [facility] [address] [place] [address] Dr. Cuco Gilliam Calcium [Mass/Vol] 9.2 mg/dL Normal 8.5-10.1 [facility] Comment on above: Performed By: #### B MP, LIPID #### [facility] [address] [place] [address] Dr. Cuco Gilliam Chloride [Moles/Vol] 101 mmol/L Normal 98-107 [facility] Comment on above: Performed By: #### B MP, LIPID #### [facility] [address] [place] [address] Dr. Cuco Gilliam CO2 [Moles/Vol] 34.8 mmol/L Critically high 21.0-32.0 [facility] Comment on above: Performed By: #### B MP, LIPID #### [facility] [address] [place] [address] Dr. Cuco Gilliam Creatinine [Mass/Vol] 1.10 mg/dL Normal 0.70-1.30 [facility] Comment on above: Performed By: #### B MP, LIPID #### [facility] [address] [place] [address] Dr. Cuco Gilliam EGFR-AF VINCENTIAN >60 Normal >=60 [facility] Comment on above: Performed By: #### B MP, LIPID #### [facility] [address] [place] [address] Dr. Cuco Gilliam EGFR-NON AF VINCENTIAN >60 Normal >=60 [facility] Comment on above: Performed By: #### B MP, LIPID #### [facility] [address] [address] [address] Cuco Gilliam Glucose [Mass/Vol] 120 mg/dL Critically high 74-106 [facility] Comment on above: Performed By: #### B MP, LIPID #### [facility] [address] [address] [address] Cuco Gilliam Potassium [Moles/Vol] 4.0 mmol/L Normal 3.5-5.1 [facility] Comment on above: Performed By: #### B MP, LIPID #### [facility] [address] [address] [address] Cuco Gilliam Sodium [Moles/Vol] 140 mmol/L Normal 136-145 [facility] Comment on above: Performed By: #### B MP, LIPID #### [facility] [address] [place] [address] Dr. Cuco Gilliam Urea nitrogen [Mass/Vol] 20.0 mg/dL Critically high 7.0-18.0 [facility] Comment on above: Performed By: #### B MP, LIPID #### [facility] [address] [place] [address] Dr. Cuco Gilliam Urea nitrogen/Creatinine [Mass ratio] 18.2 mg/mg Normal [facility] Comment on above: Performed By: #### B MP, LIPID #### [facility] [address] [place] [address] Dr. Cuco Gilliam XR KUB 1 VIEWon [...] by: DAVONTE NUNEZ Date: 2022-10-28 11:46 Normal [facility] GLYCOHEMOGLOBIN A1Con 2021 ADA RECOMMENDATION SEE BELOW Normal [facility] Comment on above: Result Comment: ADA RECOMMENDED LIMIT 4.0 - 6.0 ADA THERAPEUTIC TARGET < 7.0 ACTION SUGGESTED > 7.0 Performed By: #### A 1C #### [facility] [address] [address] [address] Cuco Gilliam Glucose [Mass/Vol] 146 mg/dL Normal [facility] Comment on above: Performed By: #### A 1C #### [facility] [address] [address] [address] Cuco Gilliam HbA1c (Bld) [Mass fraction] 6.7 % Critically high 4.5-6.2 [facility] Comment on above: Performed By: #### A 1C #### [facility] [address] [address] [address] Cuco Gilliam Activated partial thrombopla stin time (aPTT) in platelet poor plasma by coagulation aOrdered By: Domenico Betancourt on 08-24-2022 aPTT Coag (PPP) [Time] 35.5 s 25.1-36.5 [facility] Amphetamine Screen Ql (U)Ord ered By: Domenico Betancourt on 08-24-2022 Amphetamines Ql (U) Negative Negative [facility] Barbiturates [Presence] in U rineOrdered By: Domenico Betancourt on 08-24-2022 Barbiturates Ql (U) Negative Negative [facility] Basophils Auto (Bld) [#/Vol] Ordered By: Domenico Betancourt on 08-24-2022 Basophils (Bld) [#/Vol] 0.1 10*3/uL 0.0-0.2 [facility] Basophils/100 WBC Auto (Bld) Ordered By: Domenico Betancourt on 08-24-2022 Basophils/100 WBC (Bld) 0.9 % . [facility] Benzodiazepines [Presence] i n UrineOrdered By: Domenico Betancourt on 08-24-2022 Benzodiazepines Ql (U) Negative Negative [facility] Blood hemoglobin measurement (mass/volume)Ordered By: Domenico Betancourt on 08-24-2022 Hemoglobin (Bld) [Mass/Vol] 13.1 g/dL 13.0-17.0 [facility] Blood leukocytes automated c ount (number/volume)Ordered By: Domenico Betancourt on 08-24-2022 WBC (Bld) [#/Vol] 6.1 10*3/uL 4.5-11.0 [facility] COVID-19 SOFIAOrdered By: Isela ttanayeli Betancourt on 08-24-2022 SARS-CoV+SARS-CoV-2 (COVID-19) Ag IA.rapid Ql (Resp) Negative Negative [facility] Comment on above: This is a duplicate Dodie SARS Antigen (BERNARD) result to be used for statistical tracking purpose only. Cannabinoids [Presence] in U rine by Screen methodOrdered By: Domenico Betancourt on 08-24-2022 Cannabinoids Screen Ql (U) Negative Negative [facility] Comment on above: These are unconfirme d results and should not be used for legal purposes. Drug Cut-Off Concentration: AMPH 1000 ng/mL SHON 200 ng/mL SRAVANTHI 200 ng/mL COCM 300 ng/mL OP 300 ng/mL PCP 25 ng/mL THC 20 ng/mL Creatine kinase [Enzymatic a ctivity/volume] in Serum or PlasmaOrdered By: Domenico Betancourt on 08-24-2022 CK [Catalytic activity/Vol] 49 U/L 22-269 [facility] Creatinine and Glomerular fi ltration rate.predicted panel (S/P/Bld)Ordered By: Domenico Betancourt on 08-24-2022 Creatinine [Mass/Vol] 1.13 mg/dL 0.64-1.27 [facility] Eosinophils Auto (Bld) [#/Vo l]Ordered By: Domenico Betancourt on 08-24-2022 Eosinophils (Bld) [#/Vol] 0.1 10*3/uL 0.0-0.45 [facility] Eosinophils/100 WBC Auto (Bl d)Ordered By: Domenico Betancourt on 08-24-2022 Eosinophils/100 WBC (Bld) 1.4 % . [facility] Erythrocyte distribution wid th Auto (RBC) [Ratio]Ordered By: Domenico Betancourt on 08-24-2022 Erythrocyte distribution width (RBC) [Ratio] 15.9 % 12.0-14.8 [facility] Estimated glomerular filtrat ion rate (GFR) non- AmericanOrdered By: Domenico Betancourt on 08-24-2022 GFR/1.73 sq M.predicted among non-blacks MDRD (S/P/Bld) [Vol rate/Area] > 60 mL/Min [facility] Glucose Glucometer (BldC) [M ass/Vol]Ordered By: Domenico Betancourt on 08-24-2022 Glucose [Mass/Vol] 133 mg/dL [facility] Comment on above: Random Glucose Refer ence Range is dependent on time and content of last meal. Glucose of more than 200 mg/dL in a nonstressed, ambulatory subject supports the diagnosis of Diabetes Mellitus. Hematocrit Auto (Bld) [Volum e fraction]Ordered By: Domeinco Betancourt on 08-24-2022 Hematocrit (Bld) [Volume fraction] 40.8 % 38.8-50.0 [facility] Laboratory - Chemistry and C hemistry - challengeOrdered By: Domenico Betancourt on 08-24-2022 Lipase [Catalytic activity/Vol] 23.0 U/L 22-51 [facility] Laboratory - CoagulationOrde red By: Domenico Betancourt on 08-24-2022 PT Coag (PPP) [Time] 30.6 s 9.0-12.9 [facility] - Drug toxicology Ordered By: Domenico Betancourt on 08-24-2022 Opiates Ql (U) Negative Negative [facility] Laboratory - Hematology and Cell countsOrdered By: Domenico Betancourt on 08-24-2022 Nucleated RBC/100 WBC (Bld) [Ratio] 0.0 % 0-0.5 [facility] - Microbiology an d Antimicrobial susceptibilityOrdered By: Domenico Betancourt on 08-24-2022 SARS-CoV-2 (COVID-19) RNA NA+probe Ql (Unsp spec) N/A [facility] Lymphocytes Auto (Bld) [#/Vo l]Ordered By: Domenico Betancourt on 08-24-2022 Lymphocytes (Bld) [#/Vol] 0.9 10*3/uL 1.00-4.8 [facility] Lymphocytes/100 WBC Auto (Bl d)Ordered By: Domenico Betancourt on 08-24-2022 Lymphocytes/100 WBC (Bld) 14.1 % . [facility] MCH Auto (RBC) [Entitic mass ]Ordered By: Domenico Betancourt on 08-24-2022 MCH (RBC) [Entitic mass] 28.7 pg 27.5-35.2 [facility] MCHC Auto (RBC) [Mass/Vol]Or dered By: Domenico Betancourt on 08-24-2022 MCHC (RBC) [Mass/Vol] 32.1 g/dL 32.5-35.6 [facility] MCV Auto (RBC) [Entitic vol] Ordered By: Domenico Betancourt on 08-24-2022 MCV (RBC) [Entitic vol] 89.3 fL 83.5-101 [facility] Monocytes Auto (Bld) [#/Vol] Ordered By: Domenico Betancourt on 08-24-2022 Monocytes (Bld) [#/Vol] 0.5 10*3/uL 0.0-0.8 [facility] Monocytes/100 WBC Auto (Bld) Ordered By: Domenico Betancourt on 08-24-2022 Monocytes/100 WBC (Bld) 8.2 % . [facility] Neutrophils Auto (Bld) [#/Vo l]Ordered By: Domenico Betancourt on 08-24-2022 Neutrophils (Bld) [#/Vol] 4.6 10*3/uL 1.8-7.7 [facility] Neutrophils/100 WBC Auto (Bl d)Ordered By: Domenico Betancourt on 08-24-2022 Neutrophils/100 WBC (Bld) 75.4 % . [facility] No Panel InformationOrdered By: Domenico Betancourt on 08-24-2022 Estimated GFR () > 60 mL/Min [facility] Comment on above: GFR estimated refere nce range: According to KDOQI guidelines, <60 ml/min/1.73m2 is sufficient to diagnose a patient with chronic kidney disease. Pharmacy Creatinine Clearance (Chem 77.86 [facility] Bedside Glucose Comment Glu2: cleaned meter [facility] SARS Antigen (LFIA) [facility] Phencyclidine Screen Ql (U)O rdered By: Domenico Betancourt on 08-24-2022 Phencyclidine Ql (U) Negative Negative [facility] Platelet mean volume Auto (B ld) [Entitic vol]Ordered By: Domenico Betancourt on 08-24-2022 Platelet mean volume (Bld) [Entitic vol] 8.2 fL 6.6-10.1 [facility] Platelet poor plasma interna tional normalized ratio (INR) by coagulation assay (relatOrdered By: Domenico Betancourt on 08-24-2022 INR Coag (PPP) [Relative time] 2.7 {INR} [facility] Comment on above: INR Therapeutic Rang e [...] 08-24-2022 Platelets (Bld) [#/Vol] 170 10*3/uL 150-450 [facility] RBC Auto (Bld) [#/Vol]Ordere d By: Domenico Betancourt on 08-24-2022 RBC (Bld) [#/Vol] 4.57 10*6/uL 3.90-5.60 [facility] Serum or plasma amylase robert urement (enzymatic activity/volume)Ordered By: Domenico Betancourt on 08-24-2022 Amylase [Catalytic activity/Vol] 30 U/L 28-100 [facility] Serum or plasma anion gap de terminationOrdered By: Domenico Betancourt on 08-24-2022 Anion gap [Moles/Vol] 11.9 mmol/L 6.0-15.0 [facility] Serum or plasma aspartate am inotransferase measurement (enzymatic activity/volume)Ordered By: Domenico Betancourt on 08-24-2022 AST [Catalytic activity/Vol] 16 U/L - [facility] Serum or plasma calcium robert urement (mass/volume)Ordered By: Domenico Betancourt on 08-24-2022 Calcium [Mass/Vol] 8.8 mg/dL 8.2-10.2 [facility] Serum or plasma chloride ralph surement (moles/volume)Ordered By: Domenico Betancourt on 08-24-2022 Chloride [Moles/Vol] 99 mmol/L 95-114 [facility] Serum or plasma ethanol robert urement (mass/volume)Ordered By: Domenico Betancourt on 08-24-2022 Ethanol [Mass/Vol] mg/dL [facility] Ethanol [Mass/Vol] TNP [facility] Comment on above: Test not performed Serum or plasma glucose robert urement (mass/volume)Ordered By: Domenico Betancourt on 08-24-2022 Glucose [Mass/Vol] 149 mg/dL 70-100 [facility] Comment on above: ADA recommended refe rence rangeRandom Glucose Reference Range is dependent on time and content of last meal. Glucose of more than 200 mg/dL in a nonstressed, ambulatory subject supports the diagnosis of Diabetes Mellitus. Serum or plasma potassium me asurement (moles/volume)Ordered By: Domenico Betancourt on 08-24-2022 Potassium [Moles/Vol] 3.8 mmol/L 3.5-5.1 [facility] Serum or plasma sodium measu rement (moles/volume)Ordered By: Domenico Betancourt on 08-24-2022 Sodium [Moles/Vol] 135 mmol/L 136-146 [facility] Serum or plasma total carbon dioxide measurement (moles/volume)Ordered By: Domenico Betancourt on 08-24-2022 CO2 [Moles/Vol] 27.9 mmol/L 22.0-30.0 [facility] Serum or plasma urea nitroge n measurement (mass/volume)Ordered By: Domenico Betancourt on 08-24-2022 Urea nitrogen [Mass/Vol] 13 mg/dL 08-13 [facility] Urine cocaine detectionOrder ed By: Domenico Betancourt on 08-24-2022 Cocaine Ql (U) Negative Negative [facility] Activated partial thrombopla stin time (aPTT) in platelet poor plasma by coagulation aOrdered By: Lalito Silva on 07-02-2022 aPTT Coag (PPP) [Time] 30.9 s 25.1-36.5 [facility] Basophils Auto (Bld) [#/Vol] Ordered By: Lalito Silva on 07-02-2022 Basophils (Bld) [#/Vol] 0.1 10*3/uL 0.0-0.2 [facility] Basophils/100 WBC Auto (Bld) Ordered By: Lalito Silva on 07-02-2022 Basophils/100 WBC (Bld) 0.8 % . [facility] Blood hemoglobin measurement (mass/volume)Ordered By: Lalito Silva on 07-02-2022 Hemoglobin (Bld) [Mass/Vol] 14.0 g/dL 13.0-17.0 [facility] Blood leukocytes automated c ount (number/volume)Ordered By: Lalito Silva on 07-02-2022 WBC (Bld) [#/Vol] 7.6 10*3/uL 4.5-11.0 [facility] COVID-19 SOFIAOrdered By: Sa tawny Smith on 07-02-2022 SARS-CoV+SARS-CoV-2 (COVID-19) Ag IA.rapid Ql (Resp) Negative Negative [facility] Comment on above: This is a duplicate Dodie SARS Antigen (BERNARD) result to be used for statistical tracking purpose only. Creatinine and Glomerular fi ltration rate.predicted panel (S/P/Bld)Ordered By: Lalito Silva on 07-02-2022 Creatinine [Mass/Vol] 1.26 mg/dL 0.64-1.27 [facility] Eosinophils Auto (Bld) [#/Vo l]Ordered By: Lalito Silva on 07-02-2022 Eosinophils (Bld) [#/Vol] 0.1 10*3/uL 0.0-0.45 [facility] Eosinophils/100 WBC Auto (Bl d)Ordered By: Lalito Silva on 07-02-2022 Eosinophils/100 WBC (Bld) 1.2 % . [facility] Erythrocyte distribution wid th Auto (RBC) [Ratio]Ordered By: Lalito Silva on 07-02-2022 Erythrocyte distribution width (RBC) [Ratio] 16.2 % 12.0-14.8 [facility] Estimated glomerular filtrat ion rate (GFR) non- AmericanOrdered By: Lalito Silva on 07-02-2022 GFR/1.73 sq M.predicted among non-blacks MDRD (S/P/Bld) [Vol rate/Area] 56 mL/Min [facility] Hematocrit Auto (Bld) [Volum e fraction]Ordered By: Lalito Silva on 07-02-2022 Hematocrit (Bld) [Volume fraction] 43.9 % 38.8-50.0 [facility] Laboratory - CoagulationOrde red By: Lalito Silva on 07-02-2022 PT Coag (PPP) [Time] 15.7 s 9.0-12.9 [facility] - Coagulationon 0 07-02-2022 INR Coag (Bld) [Relative time] 1.5 {INR} -[facility] will 250 DO Work Phone: Comment on above: INR results are spec ifically intended to assess patients stabilized on long-term Anticoagulation therapy suggested INR?s ?Less Intensive Anticoagulation? 2.0 ? 3.0Conventional Range 3.0 ? 4.5 Laboratory - Hematology and Cell countsOrdered By: Lalito Silva on 07-02-2022 Nucleated RBC/100 WBC (Bld) [Ratio] 0.1 % 0-0.5 [facility] Lymphocytes Auto (Bld) [#/Vo l]Ordered By: Lalito Silva on 07-02-2022 Lymphocytes (Bld) [#/Vol] 1.4 10*3/uL 1.00-4.8 [facility] Lymphocytes/100 WBC Auto (Bl d)Ordered By: Lalito Silva on 07-02-2022 Lymphocytes/100 WBC (Bld) 18.8 % . [facility] MCH Auto (RBC) [Entitic mass ]Ordered By: Lalito Silva on 07-02-2022 MCH (RBC) [Entitic mass] 28.7 pg 27.5-35.2 [facility] MCHC Auto (RBC) [Mass/Vol]Or dered By: Lalito Silva on 07-02-2022 MCHC (RBC) [Mass/Vol] 31.9 g/dL 32.5-35.6 [facility] MCV Auto (RBC) [Entitic vol] Ordered By: Lalito Silva on 07-02-2022 MCV (RBC) [Entitic vol] 90.1 fL 83.5-101 [facility] Monocytes Auto (Bld) [#/Vol] Ordered By: Lalito Silva on 07-02-2022 Monocytes (Bld) [#/Vol] 0.6 10*3/uL 0.0-0.8 [facility] Monocytes/100 WBC Auto (Bld) Ordered By: Lalito Silva on 07-02-2022 Monocytes/100 WBC (Bld) 7.2 % . [facility] Neutrophils Auto (Bld) [#/Vo l]Ordered By: Lalito Silva on 07-02-2022 Neutrophils (Bld) [#/Vol] 5.5 10*3/uL 1.8-7.7 [facility] Neutrophils/100 WBC Auto (Bl d)Ordered By: Lalito Silva on 07-02-2022 Neutrophils/100 WBC (Bld) 72.0 % . [facility] No Panel InformationOrdered By: Lalito Silva on 07-02-2022 Estimated GFR () > 60 mL/Min [facility] Comment on above: GFR estimated refere nce range: According to KDOQI guidelines, <60 ml/min/1.73m2 is sufficient to diagnose a patient with chronic kidney disease. Pharmacy Creatinine Clearance (Chem 67.63 [facility] No Panel Informationon 07-02 33.6 {second(s)} Normal 25.1-36.5 -[facility] will 250 DO Work Phone: [...] same coagulation reagent and instrumentation as [facility] [place]. Currently there are no coagulation studies available worldwide for children to 14 days, and no normal ranges. Heparin therapeutic range (represented by Anti-Factor Xa activity of 0.2 - 0.4 U/mL) corresponds to PTT of 56.6 - 109.0 sec. 17.2 {second(s)} above high threshold 9.4-12.5 -[facility] [employer] DO Work Phone: Comment on above: 15 [...] same coagulation reagent and instrumentation as [facility] [place]. Currently there are no coagulation studies available worldwide for children to 14 days, and no normal ranges. No Panel InformationOrdered By: Joss Smith on 07-02-2022 SARS Antigen (LFIA) [facility] Platelet mean volume Auto (B ld) [Entitic vol]Ordered By: Lalito Silva on 07-02-2022 Platelet mean volume (Bld) [Entitic vol] 8.3 fL 6.6-10.1 [facility] Platelet poor plasma interna tional normalized ratio (INR) by coagulation assay (relatOrdered By: Lalito Silva on 07-02-2022 INR Coag (PPP) [Relative time] 1.4 {INR} [facility] Comment on above: INR Therapeutic Rang e [...] 07-02-2022 Platelets (Bld) [#/Vol] 225 10*3/uL 150-450 [facility] RBC Auto (Bld) [#/Vol]Ordere d By: Lalito Silva on 07-02-2022 RBC (Bld) [#/Vol] 4.87 10*6/uL 3.90-5.60 [facility] Serum or plasma calcium robert urement (mass/volume)Ordered By: Lalito Silva on 07-02-2022 Calcium [Mass/Vol] 9.0 mg/dL 8.2-10.2 [facility] Serum or plasma chloride ralph surement (moles/volume)Ordered By: Lalito Silva on 07-02-2022 Chloride [Moles/Vol] 100 mmol/L 95-114 [facility] Serum or plasma glucose robert urement (mass/volume)Ordered By: Lalito Silva on 07-02-2022 Glucose [Mass/Vol] 116 mg/dL 70-100 [facility] Comment on above: ADA recommended refe [...] on 07-02-2022 Potassium [Moles/Vol] 4.0 mmol/L 3.5-5.1 [facility] Serum or plasma sodium measu rement (moles/volume)Ordered By: Lalito Silva on 07-02-2022 Sodium [Moles/Vol] 139 mmol/L 136-146 [facility] Serum or plasma total carbon dioxide measurement (moles/volume)Ordered By: Lalito Silva on 07-02-2022 CO2 [Moles/Vol] 28.9 mmol/L 22.0-30.0 [facility] Serum or plasma urea nitroge n measurement (mass/volume)Ordered By: Lalito Silva on 07-02-2022 Urea nitrogen [Mass/Vol] 25 mg/dL 9- [facility] Office Visit (Cardiology)on 06-15-2022 Follow-up visit Diagnoses/Problems Assessed Atherosclerosis of coronary artery of [place] heart without angina pectoris (414.01) (I25.10) Hyperlipidemia [...] Weight Tips; Status:Complete - Retrospective Authorization; Done: [id number] Some eating tips that can help you lose weight.; Status:Complete - Retrospective Authorization; Done: [id number] SocHx: Former smoker Tobacco Use Screening; Status:Complete; Done: [id number] Patient Instructions Please bring all medicines, vitamins, [...] Sodium 4 MG Oral Tabletas directed by [facility] Patient did not bring medication [...] negative for complaint. Vitals Vital Signs Recorded: [id number] 11:29AM Heart Rate68, R Radial Trvtjlik482, RUE, Sitting Utxaojsst85, RUE, Sitting Height5 ft 6 in Dlonri020 lb BMI Hnmjoqbjpv70 kg/m2 BSA Calculated2.43 Tobacco Useb) No Physical [...] normal s (more content not included)... Normal [facility] Tobacco Screening.on 022 Tobacco use status HS b) No M [facility] [employer] 250 DO Work Phone: Office Visit (Cardiology)on 03-16-2022 Follow-up visit Diagnoses/Problems Assessed Atherosclerosis of coronary artery of [place] heart without angina pectoris (414.01) (I25.10) Essential hypertension, benign (401.1) (I10) Diabetes mellitus (250.00) (E11.9) Hyperlipidemia (272.4) (E78.5) High risk medication use (V58.69) (Z79.899) Body mass index (BMI) of 50.0 to 59.9 in adult (V85.43) (Z68.43) Former smoker (V15.82) (Z87.891) QUIT 1996 Edema (782.3) (R60.9) Atrial flutter (427.32) (I48.92) Orders Atrial flutter IO EKG Electrocardiogram- 12 Lead; Status:Complete; Done: [id number] Body mass index (BMI) of 50.0 to 59.9 in adult Healthy Weight Tips; Status:Complete - Retrospective Authorization; Done: [id number] Edema Start: Torsemide 10 MG Oral Tablet; Take one tablet once daily Edema, Essential hypertension, benign, High risk medication use Basic Metabolic Panel; Status:Active - Retrospective Authorization; Requested for:[id number]; SocHx: Former smoker Tobacco Use Screening; Status:Complete; Done: [id number] Patient Instructions By signing my name below, [...] Sodium 4 MG Oral Tabletas directed by [facility] Allergies Medication Penicillins Allergy; Hives;; Recorded By: Reina Bloom; 08/04/2021 6:29:44 PM Social History Problems Consumes 1 to 2 servings of caffeine per day (V49.89) (Z78.9) Former smoker (V15.82) (Z87.891) QUIT 1996 No illicit drug use Occasional alcohol use (more content not included)... Normal [facility] Tobacco Screening.on 022 Adult depression screening assessment No [facility] will 250 DO Work Phone: Fall risk assessment b) One or more fall s in the last year [facility] will 250 DO Work Phone: Tobacco use status [facility] b) No [facility] will 250 DO Work Phone: No Panel Informationon 01-20 22\S\22 Normal 10-42 [facility] 250 DO Work Phone: 0.50\S\0.50 Normal 0.45-5.33 [facility] will 250 DO Work Phone: Comment on above: PERFORMED BY:[address] [address] [address] [place], [place] [phone] MEDICAL DIRECTORCORAL GOLD M.D. 9.1\S\9.1 Normal 8.2-10.2 [facility] will 250 DO Work Phone: 24.4\S\24.4 Normal 22.0-30.0 [facility] will 250 DO Work Phone: 102\S\102 Normal 95-114 [facility] will 250 DO Work Phone: [phone] 4.1\S\4.1 Normal 3.5-5.1 [facility] will 250 DO Work Phone: 138\S\138 Normal 136-146 [facility] 250 DO Work Phone: 55\S\55 Normal [facility] will 250 DO Work Phone: Comment on above: GFR estimated refere nce range: According to KDOQI guidelines, <60 ml/min/1.73m2 is sufficient to diagnose a patient with chronic kidney disease. 45\S\45 [facility] 250 DO Work Phone: 1.51\S\1.51 above high threshold 0.64-1.27 [facility] [employer] 250 DO Work Phone: 23\S\23 Normal 9-23 [facility] [employer] DO Work Phone: 109\S\109 above high threshold 70-100 [facility] [employer] DO Work Phone: Comment on above: Random Glucose Refer ence Range is dependent on time and content of last meal. Glucose of more than 200 mg/dL in a nonstressed, ambulatory subject supports the diagnosis of Diabetes Mellitus. ADA recommended reference range Radiologyon 01-20-2022 XR Chest 2 Views Normal [facility] [employer] DO Work Phone: No Panel Informationon 09-23 Normal [facility] [employer] DO Work Phone: No Panel Informationon 09-22 [facility] [employer] DO Work Phone: IO EKG Electrocardiogram- 12 Leadon 09-07-2021 IO EKG Electrocardiogram- 12 Lead See Scanned Document [facility] [employer] DO Work Phone: Office Visit (Cardiology)on 09-07-2021 Follow-up visit Diagnoses/Problems Assessed Atherosclerosis of coronary artery of [place] heart without angina pectoris (414.01) (I25.10) Atrial flutter (427.32) (I48.92) Essential hypertension, benign (401.1) (I10) Diabetes mellitus (250.00) (E11.9) Hyperlipidemia (272.4) (E78.5) Body mass index (BMI) of 50.0 to 59.9 in adult (V85.43) (Z68.43) Former smoker (V15.82) (Z87.891) QUIT 1996 Obesity, morbid (more than 100 lbs over ideal weight or BMI > 40) (278.01) (E66.01) Orders Atherosclerosis of coronary artery of [place] heart without angina pectoris Renew: Aspirin EC 81 MG Oral Tablet Delayed Release; TAKE 1 TABLET DAILY SocHx: Former smoker Tobacco Use Screening; Status:Complete; Done: [id number] Follow up in 6-9 months Amiodarone follow [...] Sodium 4 MG Oral Tabletas directed by [facility] Allergies Medication Penicillins Allergy; Hives;; [...] Signs Recorded: 07Sep2021 09:34AM Heart Rate70, Apical Hzrsmnoa97, RUE, Sitting Dtdotwehs54, RUE, Sitting Height5 ft 6.5 in [place]009 lb BMI Kjxwvkgqok26.26 kg/m2 BSA Calculated2.5 Tobacco Useb) No Fall Screeninga) No falls within the last year EKG done in office today. Physical Exam Constitutional: alert and in no acute distress. Eyes: no erythema, swelling or discharge from the eye . Neck: neck is supple (more content not included)... Normal [employer] [facility] 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 [id number] This report has been produced using speech [...] by/Date: NO ADDENDUM Addendum Electronically Signed by/Date: [facility] KNEE BI 1 OR 2 VIEWon 2018 KNEE BI 1 OR 2 VIEW *FINAL Date of Service: 04/29/2019 16:45 Adm #: [id number] Reading Dr:MALLIKA QUINONES Signoff Dr: MALLIKA QUINONES [...] change due to bilateral tricompartmental knee arthroplasty. [id number] This report has been produced using speech recognition. Original Interpreting Physician: MALLIKA QUINONES M.D. Original Transcribed [facility]/Date[facility] Apr 29 2019 4:53P Original Electronically Signed by/Date: MALLIKA QUINONES M.D. Apr 29 2019 4:53P Addendum Interpreting Physician: Addendum Transcribed by/Date: NO ADDENDUM Addendum Electronically Signed by/Date: [facility] PROTHROMBIN TIMEon 9 INR Coag RelTime (PPP) High 0.86-1.16 [facility] Comment on above: Result Comment: 2.5 INR Theraputic Range: 2.0-3.5 Performed at [address] [address] Performed By: #### P TB #### Main Laboratory [address] [address] Prothrombin time (PT) Coag time (PPP) INFORMATION NOT REPORTED TO LABORATORY [facility] Comment on above: Performed By: #### P TB #### Main Laboratory [address] [address] Prothrombin time (PT) Coag time (PPP) 24.9 s High 9.3-12.7 [facility] Comment on above: Performed By: #### P TB #### [facility] [address] [place] [address] SHOULDER RT MIN 2 VIEWon SHOULDER RT MIN 2 VIEW *FINAL Date of Service: 04/29/2019 16:45 Adm #: [id number] Reading Dr:MALLIKA Rubi Dr: MALLIKA QUINONES PROCEDURE: [...] acromioclavicular joint and at the glenohumeral joint. [id number] This report has been produced using speech recognition. Original Interpreting Physician: MALLIKA QUINONES M.D. Original Transcribed by/Date: [facility] Apr 29 2019 4:51P Original Electronically Signed by/Date: MALLIKA QUINONES M.D. Apr 29 2019 4:51P Addendum Interpreting Physician: Addendum Transcribed by/Date: NO ADDENDUM Addendum Electronically Signed by/Date: [facility] SPINE CERVICAL WO CONTRASTon 04-29-2019 SPINE CERVICAL WO CONTRAST *FINAL Date of Service: 04/29/2019 16:43 Adm #: [id number] Reading Dr:MALLIKA Rubi Dr: MALLIKA QUINONES PROCEDURE: [...] from C3-4 through C7-T1 with cervical spondylosis. [id number] This report has been produced using speech [...] Physician: MALLIKA QUINONES M.D. Original Transcribed by/Date: [facility] Apr 29 2019 5:02P Original Electronically Signed by/Date: MALLIKA QUINONES M.D. Apr 29 2019 5:02P Addendum Interpreting Physician: Addendum Transcribed by/Date: NO ADDENDUM Addendum Electronically Signed by/Date: [facility] Vital Signs Date Time Vital Sign Value Performing Clinician Facility 06-11-2025 [id number] Body height 168.91 cm Modesto Chavarria DO Work Phone: [facility] 06-11-2025 15:04-0400 Body mass index (BMI) [Ratio] 45.7 kg/m2 Modesto Chavarria DO Work Phone: [facility] 06-11-2025 15:04-0400 Body weight 130.4 kg Modesto Ball DO Work Phone: [facility] 06-11-2025 15:04-0400 Diastolic blood pressure 78 mm[Hg] Modesto Ball DO Work Phone: [facility] 06-11-2025 15:04-0400 Heart rate 62 /min Modesto Ball DO Work Phone: [facility] 06-11-2025 15:04-0400 Respiratory rate 14 /min Modesto Ball DO Work Phone: [facility] 06-11-2025 15:04-0400 SaO2% (BldA) [Mass fraction] 96 % Modesto Ball DO Work Phone: [facility] 06-11-2025 15:04-0400 Systolic blood pressure 119 mm[Hg] Modesto Ball DO Work Phone: [facility] 05-07-2025 15:42-0400 Body height 170.2 cm Carri Marques MD Work Phone: [facility] 05-07-2025 15:42-0400 Body mass index (BMI) [Ratio] 45.89 kg/m2 Carri Marques MD Work Phone: [facility] 05-07-2025 15:42-0400 Body weight 132.9 kg Carri Marques MD Work Phone: [facility] 05-07-2025 15:42-0400 Diastolic blood pressure 56 mm[Hg] Carri Marques MD Work Phone: [facility] 05-07-2025 15:42-0400 Heart rate 60 /min Carri Marques MD Work Phone: [facility] 05-07-2025 15:42-0400 Systolic blood pressure 96 mm[Hg] Carri Marques MD Work Phone: [facility] 01-30-2025 09:44-0400 Body height 168.91 cm [facility] 01-30-2025 09:44-0400 Body mass index (BMI) [Ratio] 47.7 kg/m2 [facility] 01-30-2025 09:44-0400 Body weight 136.24 kg [facility] 01-30-2025 09:44-0400 Diastolic blood pressure 70 mm[Hg] [facility] 01-30-2025 09:44-0400 Heart rate 70 /min [facility] 01-30-2025 09:44-0400 Respiratory rate 12 /min [facility] 01-30-2025 09:44-0400 SaO2% (BldA) [Mass fraction] 96 % [facility] 01-30-2025 09:44-0400 Systolic blood pressure 112 mm[Hg] [facility] 11-20-2024 09:37-0500 Body height 168.91 cm [facility] 11-20-2024 09:37-0500 Body mass index (BMI) [Ratio] 48.6 kg/m2 [facility] 11-20-2024 09:37-0500 Body weight 138.79 kg [facility] 11-20-2024 09:37-0500 Diastolic blood pressure 96 mm[Hg] [facility] 11-20-2024 09:37-0500 Heart rate 80 /min [facility] 11-20-2024 09:37-0500 Respiratory rate 14 /min [facility] 11-20-2024 09:37-0500 Systolic blood pressure 136 mm[Hg] [facility] 10-25-2024 15:08-0500 Body height 170.2 cm Carri Marques MD Work Phone: [facility] 10-25-2024 15:08-0500 Body mass index (BMI) [Ratio] 47.77 kg/m2 Carri Marques MD Work Phone: [facility] 10-25-2024 15:08-0500 Body weight 138.35 kg Carri Marques MD Work Phone: [facility] 10-25-2024 15:08-0500 Diastolic blood pressure 64 mm[Hg] Carri Marques MD Work Phone: [facility] 10-25-2024 15:08-0500 Heart rate 66 /min Carri Marques MD Work Phone: [facility] 10-25-2024 15:08-0500 Systolic blood pressure 100 mm[Hg] Carri Marques MD Work Phone: [facility] 08-14-2024 14:40-0400 Body height 168.91 cm DO Modesto Ball Work Phone: [facility] 08-14-2024 14:40-0400 Body mass index (BMI) [Ratio] 49.9 kg/m2 DO Modesto Ball Work Phone: [facility] 08-14-2024 14:40-0400 Body weight 142.42 kg DO Modesto Ball Work Phone: [facility] 08-14-2024 14:40-0400 Diastolic blood pressure 70 mm[Hg] DO Modesto Ball Work Phone: [facility] 08-14-2024 14:40-0400 Heart rate 78 /min DO Modesto Ball Work Phone: [facility] 08-14-2024 14:40-0400 SaO2% (BldA) [Mass fraction] 98 % DO Modesto Ball Work Phone: [facility] 08-14-2024 14:40-0400 Systolic blood pressure 140 mm[Hg] DO Modesto Ball Work Phone: [facility] 06-22-2024 08:00-0400 Body temperature 97.9 [degF] DO Modesto Ball Work Phone: [facility] 06-22-2024 08:00-0400 Diastolic blood pressure 85 mm[Hg] DO Modesto Ball Work Phone: [facility] 06-22-2024 08:00-0400 Heart rate 64 /min DO Modesto Ball Work Phone: [facility] 06-22-2024 08:00-0400 Respiratory rate 20 /min DO Modesto Ball Work Phone: [facility] 06-22-2024 08:00-0400 SaO2% (BldA) [Mass fraction] 96 % DO Modesto Ball Work Phone: [facility] 06-22-2024 08:00-0400 Systolic blood pressure 146 mm[Hg] DO Modesto Ball Work Phone: [facility] 06-22-2024 05:02-0400 Body weight 143.9 kg DO Modesto Ball Work Phone: [facility] 06-20-2024 14:46-0400 Body height 167.64 cm DO Modesto Ball Work Phone: [facility] 06-18-2024 23:31-0400 Inhaled oxygen concentration 21 % DO Modesto Ball Work Phone: [facility] 06-18-2024 22:17-0400 Body temperature 98.6 [degF] DO Modesto Ball Work Phone: [facility] 06-18-2024 22:17-0400 Diastolic blood pressure 52 mm[Hg] DO Modesto Ball Work Phone: [facility] 06-18-2024 22:17-0400 Heart rate 64 /min DO Modesto Ball Work Phone: [facility] 06-18-2024 22:17-0400 Respiratory rate 18 /min DO Modesto Ball Work Phone: [facility] 06-18-2024 22:17-0400 SaO2% (BldA) [Mass fraction] 95 % DO Modesto Ball Work Phone: [facility] 06-18-2024 22:17-0400 Systolic blood pressure 95 mm[Hg] DO Modesto Ball Work Phone: [facility] 06-18-2024 15:48-0400 Body height 167.64 cm DO Modesto Ball Work Phone: [facility] 06-18-2024 15:48-0400 Body weight 144.6 kg DO Modesto Ball Work Phone: [facility] 04-23-2024 10:34-0400 Body height 170.2 cm Lalito Silva MD Work Phone: [facility] 04-23-2024 10:34-0400 Body mass index (BMI) [Ratio] 50.43 kg/m2 Lalito Silva MD Work Phone: [facility] 04-23-2024 10:34-0400 Body weight 146.06 kg Lalito Silva MD Work Phone: [facility] 04-23-2024 10:34-0400 Diastolic blood pressure 60 mm[Hg] Lalito Silva MD Work Phone: [facility] 04-23-2024 10:34-0400 Heart rate 68 /min Lalito Silva MD Work Phone: [facility] 04-23-2024 10:34-0400 Systolic blood pressure 94 mm[Hg] Lalito Silva MD Work Phone: [facility] 03-26-2024 [id number] Body height 167.64 cm [facility] 03-26-2024 14:28-0400 Body mass index (BMI) [Ratio] 51.7 kg/m2 [facility] 03-26-2024 [id number] Body weight 145.31 kg [facility] 03-26-2024 14:28-0400 Diastolic blood pressure 75 mm[Hg] [facility] 03-26-2024 14:28-0400 Heart rate 74 /min [facility] 03-26-2024 14:28-0400 Respiratory rate 24 /min [facility] 03-26-2024 14:28-0400 Systolic blood pressure 126 mm[Hg] [facility] 12-26-2023 11:00-0500 Body height Modesto Ball Other [employer] Other 12-26-2023 11:00-0500 Body mass index (BMI) [Ratio] 53.35 kg/m2 Modesto Ball Other [employer] Other 12-26-2023 11:00-0500 Body weight 149.96 kg Modesto Ball Other [employer] Other 12-26-2023 11:00-0500 Diastolic blood pressure 79 mm[Hg] Modesto Ball Other [employer] Other 12-26-2023 11:00-0500 Respiratory rate 20 /min Modesto Ball Other [employer] Other 12-26-2023 11:00-0500 Systolic blood pressure 150 mm[Hg] Modesto Ball Other [employer] Other 10-17-2023 10:00-0500 Body height Modesto Ball Other [employer] Other 10-17-2023 10:00-0500 Body mass index (BMI) [Ratio] 53.19 kg/m2 Modesto Ball Other [employer] Other 10-17-2023 10:00-0500 Body weight 149.51 kg Modesto Ball Other [employer] Other 10-17-2023 10:00-0500 Diastolic blood pressure 83 mm[Hg] Modesto Ball Other [employer] Other 10-17-2023 10:00-0500 Respiratory rate 20 /min Modesto Ball Other [employer] Other 10-17-2023 10:00-0500 Systolic blood pressure 144 mm[Hg] Modesto Ball Other [employer] Other 10-07-2023 15:25-0500 Body height 165.1 cm Lalito Silva MD Work Phone: [facility] 10-07-2023 15:25-0500 Body mass index (BMI) [Ratio] 52.42 kg/m2 Lalito Silva MD Work Phone: [facility] 10-07-2023 15:25-0500 Body weight 142.88 kg Lalito Silva MD Work Phone: [facility] 10-07-2023 15:25-0500 Diastolic blood pressure 78 mm[Hg] Lalito Silva MD Work Phone: [facility] 10-07-2023 15:25-0500 Heart rate 80 /min Lalito Silva MD Work Phone: [facility] 10-07-2023 15:25-0500 Systolic blood pressure 118 mm[Hg] Lalito Silva MD Work Phone: [facility] 09-23-2023 10:30-0400 Body height Modesto Ball Other [employer] Other 09-23-2023 10:30-0400 Body mass index (BMI) [Ratio] 52.13 kg/m2 Modesto Ball Other [employer] Other 09-23-2023 10:30-0400 Body weight 146.51 kg Modesto Ball Other [employer] Other 09-23-2023 10:30-0400 Diastolic blood pressure 82 mm[Hg] Modesto Ball Other [employer] Other 09-23-2023 10:30-0400 Respiratory rate 20 /min Modesto Ball Other [employer] Other 09-23-2023 10:30-0400 Systolic blood pressure 147 mm[Hg] Modesto Ball Other [employer] Other 09-23-2023 09:30-0400 Body height Modesto Ball Other [employer] Other 09-23-2023 09:30-0400 Body mass index (BMI) [Ratio] 52.13 kg/m2 Modesto Ball Other [employer] Other 09-23-2023 09:30-0400 Body weight 146.51 kg Modesto Ball Other [employer] Other 09-23-2023 09:30-0400 Diastolic blood pressure 82 mm[Hg] Modesto Ball Other [employer] Other 09-23-2023 09:30-0400 Respiratory rate 20 /min Modesto Ball Other [employer] Other 09-23-2023 09:30-0400 Systolic blood pressure 147 mm[Hg] Modesto Ball Other [employer] Other 06-23-2023 11:00-0400 Body height Modesto Ball Other [employer] Other 06-23-2023 11:00-0400 Body mass index (BMI) [Ratio] 51.03 kg/m2 Modesto Ball Other [employer] Other 06-23-2023 11:00-0400 Body weight 143.43 kg Modesto Ball Other [employer] Other 06-23-2023 11:00-0400 Diastolic blood pressure 74 mm[Hg] Modesto Ball Other [facility] [employer] Other 06-23-2023 11:00-0400 Respiratory rate 20 /min Modesto Ball Other [facility] [employer] Other 06-23-2023 11:00-0400 Systolic blood pressure 116 mm[Hg] Modesto Ball Other [facility] [employer] Other 05-15-2023 00:03-0400 Diastolic blood pressure 76 mm[Hg] DO Modesto Ball Work Phone: [facility] 05-15-2023 00:03-0400 Heart rate 72 /min DO Modesto Ball Work Phone: [facility] 05-15-2023 00:03-0400 Respiratory rate 14 /min DO Modesto Ball Work Phone: [facility] 05-15-2023 00:03-0400 SaO2% (BldA) [Mass fraction] 96 % DO Modesto Ball Work Phone: [facility] 05-15-2023 00:03-0400 Systolic blood pressure 143 mm[Hg] DO Modesto Ball Work Phone: [facility] 05-14-2023 22:42-0400 Body temperature 97.5 [degF] DO Modesto Ball Work Phone: [facility] 05-14-2023 19:48-0400 Body height 170.18 cm DO Modesto Ball Work Phone: [facility] 05-14-2023 19:48-0400 Body weight 143.8 kg DO Modesto Ball Work Phone: [facility] 03-08-2023 09:15-0400 Body height 167.64 cm Modesto E Ball Work Phone: [facility] DO Work Phone: 03-08-2023 09:15-0400 Body mass index (BMI) [Ratio] 50.68 kg/m2 Modesto E Ball Work Phone: [facility] [employer] 250 DO Work Phone: 03-08-2023 09:15-0400 Body surface area Derived from formula 2.42 m2 Modesto E Ball Work Phone: [facility] [employer] 250 DO Work Phone: 03-08-2023 09:15-0400 Body weight 142.43 kg Modesto E Ball Work Phone: [facility] [employer] 250 DO Work Phone: 03-08-2023 09:15-0400 Diastolic blood pressure 72 mm[Hg] Modesto E Ball Work Phone: [facility] [employer] 250 DO Work Phone: 03-08-2023 09:15-0400 Heart rate 62 /min Modesto E Ball Work Phone: [facility] [employer] 250 DO Work Phone: 03-08-2023 09:15-0400 Systolic blood pressure 120 mm[Hg] Modesto E Ball Work Phone: [facility] [employer] 250 DO Work Phone: 02-22-2023 11:00-0400 Body height Modesto Ball Other [facility] [employer] Other 02-22-2023 11:00-0400 Body mass index (BMI) [Ratio] 51.58 kg/m2 Modesto Ball Other [facility] [employer] Other 02-22-2023 11:00-0400 Body weight 144.97 kg Modesto Ball Other [employer] Other 02-22-2023 11:00-0400 Diastolic blood pressure 80 mm[Hg] Modesto Ball Other [employer] Other 02-22-2023 11:00-0400 Respiratory rate 20 /min Modesto Ball Other [facility] [employer] Other 02-22-2023 11:00-0400 Systolic blood pressure 128 mm[Hg] Modesto Ball Other [facility] [employer] Other 08-24-2022 09:00-0400 Diastolic blood pressure 66 mm[Hg] DO Modesto Ball Work Phone: [facility] 08-24-2022 09:00-0400 Heart rate 62 /min DO Modesto Ball Work Phone: [facility] 08-24-2022 09:00-0400 Respiratory rate 20 /min DO Modesto Ball Work Phone: [facility] 08-24-2022 09:00-0400 SaO2% (BldA) [Mass fraction] 96 % DO Modesto Ball Work Phone: [facility] 08-24-2022 09:00-0400 Systolic blood pressure 106 mm[Hg] DO Modesto Ball Work Phone: [facility] 08-24-2022 05:19-0400 Body height 170.18 cm DO Modesto Ball Work Phone: [facility] 08-24-2022 05:19-0400 Body weight 148.3 kg DO Modesto Ball Work Phone: [facility] 08-24-2022 05:10-0400 Body temperature 97.9 [degF] DO Modesto Ball Work Phone: [facility] 07-03-2022 07:42-0400 Diastolic blood pressure 81 mm[Hg] DO Modesto Ball Work Phone: [facility] 07-03-2022 07:42-0400 Heart rate 90 /min DO Modesto Ball Work Phone: [facility] 07-03-2022 07:42-0400 Respiratory rate 18 /min DO Modesto Ball Work Phone: [facility] 07-03-2022 07:42-0400 SaO2% (BldA) [Mass fraction] 97 % DO Modesto Ball Work Phone: [facility] 07-03-2022 07:42-0400 Systolic blood pressure 130 mm[Hg] DO Modesto Ball Work Phone: [facility] 07-03-2022 05:36-0400 Body weight 142.5 kg DO Modesto Ball Work Phone: [facility] 07-02-2022 19:55-0400 Body temperature 97.9 [degF] DO Modesto Ball Work Phone: [facility] 07-02-2022 18:56-0400 Inhaled oxygen flow rate 8 L/min DO Modesto Ball Work Phone: [facility] 07-02-2022 18:18-0400 Body height 170.18 cm DO Modesto Ball Work Phone: [facility] 07-02-2022 18:18-0400 Body mass index (BMI) [Ratio] 48.5 kg/m2 DO Modesto Ball Work Phone: [facility] 06-15-2022 11:29-0400 Body height 167.64 cm Modesto E Ball Work Phone: [facility] [employer] 250 DO Work Phone: 06-15-2022 11:29-0400 Body mass index (BMI) [Ratio] 51 kg/m2 Modesto E Ball Work Phone: [facility] DO Work Phone: 06-15-2022 11:29-0400 Body surface area Derived from formula 2.43 m2 Modesto E Ball Work Phone: [facility] DO Work Phone: 06-15-2022 11:29-0400 Body weight 143.34 kg Modesto E Ball Work Phone: [facility] DO Work Phone: 06-15-2022 11:29-0400 Diastolic blood pressure 62 mm[Hg] Modesto E Ball Work Phone: [facility] DO Work Phone: 06-15-2022 11:29-0400 Heart rate 68 /min Modesto E Ball Work Phone: [facility] 250 DO Work Phone: 06-15-2022 11:29-0400 Systolic blood pressure 108 mm[Hg] Modesto E Ball Work Phone: [facility] DO Work Phone: 03-16-2022 08:50-0400 Body height 167.64 cm Modesto E Ball Work Phone: [facility] DO Work Phone: 03-16-2022 08:50-0400 Body mass index (BMI) [Ratio] 51.65 kg/m2 Modesto E Ball Work Phone: [facility] DO Work Phone: 03-16-2022 08:50-0400 Body surface area Derived from formula 2.44 m2 Modesto E Ball Work Phone: [facility] DO Work Phone: 03-16-2022 08:50-0400 Body weight 145.15 kg Modesto E Ball Work Phone: [facility] DO Work Phone: 03-16-2022 08:50-0400 Diastolic blood pressure 70 mm[Hg] Modesto E Ball Work Phone: [facility] DO Work Phone: 03-16-2022 08:50-0400 Heart rate 54 /min Modesto E Ball Work Phone: [facility] DO Work Phone: 03-16-2022 08:50-0400 Systolic blood pressure 118 mm[Hg] Modesto E Ball Work Phone: [facility] DO Work Phone: 09-22-2021 00:00-0400 56 1 Modesto E Ball Work Phone: [facility] DO Work Phone: Comment on above: [id number] 09-07-2021 09:34-0400 Body height 168.91 cm Modesto E Ball Work Phone: [facility] DO Work Phone: 09-07-2021 09:34-0400 Body mass index (BMI) [Ratio] 53.26 kg/m2 Modesto E Ball Work Phone: [facility] DO Work Phone: 09-07-2021 09:34-0400 Body surface area Derived from formula 2.5 m2 Modesto E Ball Work Phone: [facility] DO Work Phone: 09-07-2021 09:34-0400 Body weight 151.96 kg Modesto E Ball Work Phone: [facility] DO Work Phone: 09-07-2021 09:34-0400 Diastolic blood pressure 56 mm[Hg] Modesto E Ball Work Phone: [facility] DO Work Phone: 09-07-2021 09:34-0400 Heart rate 70 /min Modesto E Ball Work Phone: [facility] DO Work Phone: 09-07-2021 09:34-0400 Systolic blood pressure 92 mm[Hg] Modesto E Ball Work Phone: [facility] DO Work Phone: Encounters Encounter Date Encounter Type Care Provider Facility Start: 06-11-2025 End: 06-11-2025 ambulatory Modesto Chavarria DO Work Phone: [facility] Work Phone: Start: 06-11-2025 End: 06-11-2025 Patient encounter procedure Modesto Chavarria DO -[facility] Work Phone: Start: 05-07-2025 End: 05-07-2025 ambulatory [facility] Start: 05-07-2025 End: 05-07-2025 Office outpatient visit 25 minutes Carri Marques MD Work Phone: [facility] Comment on above: SOB (shortness of br eath) on exertion (Primary Dx); Permanent atrial fibrillation (Multi); Pacemaker; Essential hypertension, benign; Complete heart block; Atherosclerosis of [place] coronary artery of [place] heart without angina pectoris; BMI 45.0-49.9, adult (Multi); QUETA (obstructive sleep apnea); Former smoker; Mixed hyperlipidemia Start: 04-18-2025 End: 04-18-2025 ambulatory [facility] Facility:[facility] [place] Start: 01-30-2025 End: 01-30-2025 ambulatory [facility] Work Phone: Start: 01-30-2025 End: 01-30-2025 Patient encounter procedure [facility] Work Phone: Start: 01-27-2025 Patient encounter procedure [facility] Start: 11-27-2024 Non-patient / Non-visit [facility] Work Phone: Start: 11-20-2024 End: 11-20-2024 Patient encounter procedure [facility] Work Phone: Start: 10-25-2024 End: 10-25-2024 Office outpatient visit 25 minutes Carri Marques MD Work Phone: [facility] Comment on above: Permanent atrial fib rillation (Multi) (Primary Dx); SOB (shortness of breath) on exertion; Complete heart block; Pacemaker; Mixed hyperlipidemia; Essential hypertension, benign; Atherosclerosis of [place] coronary artery of [place] heart without angina pectoris; QUETA (obstructive sleep apnea); BMI 50.0-59.9, adult (Multi); Former smoker Start: 10-25-2024 End: 10-25-2024 ambulatory [facility] Start: 09-27-2024 End: 09-27-2024 ambulatory Lalito Silva Facility:[facility] [place] Start: 08-24-2024 End: 08-24-2024 ambulatory Carlos Alberto GIBSON Facility:[facility] Start: 08-14-2024 End: 08-14-2024 ambulatory DO Modesto Chavarria Work Phone: [facility] Work Phone: Start: 08-14-2024 End: 08-14-2024 Patient encounter procedure DO Modesto Chavarria Work Phone: [facility] Work Phone: Start: 08-07-2024 Non-patient / Non-visit DO Ivan Chavarria Work Phone: [facility] Work Phone: Start: 07-12-2024 Non-patient / Non-visit DO Ivan Chavarria Work Phone: [facility] Work Phone: Start: 06-22-2024 Non-patient / Non-visit DO Ivan Chavarria Work Phone: [facility] Work Phone: Start: 06-19-2024 End: 06-22-2024 Evaluation and management of inpatient DO Modesto Chavarria Work Phone: [facility] Work Phone: Start: 06-18-2024 Evaluation and manag ement of inpatient DO Modesto Chavarria Work Phone: [facility] Work Phone: Start: 06-18-2024 observation encounter DO Wade Chavarria Work Phone: [facility] Work Phone: Start: 04-23-2024 End: 04-23-2024 Patient encounter procedure DO Modesto Chavarria Work Phone: [facility] [place] Work Phone: Start: 04-23-2024 End: 04-23-2024 ambulatory DO Modesto Chavarria Work Phone: [facility] Work Phone: Start: 04-23-2024 End: 04-23-2024 Office outpatient visit 25 minutes Lalito Silva MD Work Phone: [facility] Comment on above: Atherosclerosis of n ative coronary artery of [place] heart without angina pectoris (Primary Dx); Pacemaker; Permanent atrial fibrillation (Multi); Essential hypertension, benign; Complete heart block (Multi); BMI 50.0-59.9, adult (Multi); SOB (shortness of breath) on exertion; Mixed hyperlipidemia Start: 03-26-2024 End: 03-26-2024 ambulatory [facility] Work Phone: Start: 03-26-2024 End: 03-26-2024 Patient encounter procedure [facility] Work Phone: Start: 12-26-2023 End: 12-26-2023 ambulatory Modesto Chavarria Other [employer] Other Start: 12-26-2023 Patient encounter procedure Modesto Chavarria [facility] Start: 10-17-2023 End: 10-17-2023 ambulatory Modesto Chavarria Other [employer] Other Start: 10-17-2023 Office outpatient vi sit 15 minutes Modesto Chavarria [facility] Start: 10-07-2023 End: 10-07-2023 Office outpatient visit 25 minutes Lalito Silva MD Work Phone: [facility] Comment on above: Pacemaker (Primary D x); Permanent atrial fibrillation (CMS/HCC); Mixed hyperlipidemia; Essential hypertension, benign; Complete heart block (CMS/HCC); Atherosclerosis of [place] coronary artery of [place] heart without angina pectoris Start: 09-23-2023 End: 09-23-2023 ambulatory Modesto Chavarria Other [employer] Other Start: 09-23-2023 Office outpatient vi sit 25 minutes Modesto Chavarria [facility] Start: 07-12-2023 End: 07-12-2023 ambulatory Modesto Chavarria Other [employer] Other Start: 07-12-2023 Telephone encounter Modesto Chavarria [facility] Start: 06-23-2023 End: 06-23-2023 ambulatory Modesto Aura Other [employer] Other Start: 06-23-2023 Office outpatient vi sit 25 minutes Modesto Chavarria [facility] Start: 06-07-2023 End: 06-07-2023 ambulatory Modesto Chavarria Other [employer] Other Start: 06-07-2023 Telephone encounter Modesto Chavarria [facility] Start: 05-25-2023 End: 05-25-2023 ambulatory Modesto Aura Other [employer] Other Start: 05-25-2023 Telephone encounter Modesto Chavarria [facility] Start: 05-23-2023 End: 05-23-2023 ambulatory Modesto Aura Other [employer] Other Start: 05-23-2023 Telephone encounter Modesto Chavarria [facility] Start: 05-16-[address] Modesto Chavarria Facility:[id number] Start: 05-15-[address] Modesto Chavarria Facility:[id number] Start: 05-14-2023 Evaluation and manag ement of inpatient DO Modesto Chavarria Work Phone: [facility] Work Phone: Start: 05-12-2023 End: 05-12-2023 ambulatory Modesto Chavarria Other [employer] Other Start: 05-12-2023 Initial nursing faci lity care/day 35 minutes Modesto Chavarria [facility] Start: 05-11-2023 End: 05-11-2023 ambulatory Modesto Chavarria Other [employer] Other Start: 05-11-2023 Telephone encounter Modesto TELLO [facility] Start: 05-09-2023 End: 05-09-2023 ambulatory Modesto Chavarria Other [employer] Other Start: 05-09-2023 Telephone encounter Modesto TELLO [facility] Start: 04-28-2023 End: 04-28-2023 ambulatory Modesto Chavarria Other [employer] Other Start: 04-28-2023 Telephone encounter Modesto TELLO [facility] Start: 03-24-[address] Modesto Chavarria Facility: Start: 03-21-2023 End: 04-20-2023 ambulatory SHAIKH Shady VALENTESUJATA Facility:H1 Start: 03-09-2023 Rx Renewal Modesto mcgill Work Phone: [facility] 250 DO Work Phone: Start: 03-09-2023 End: 03-09-2023 ambulatory Modesto Chavarria Other [employer] Other Start: 03-09-2023 Telephone encounter Modesto TELLO [facility] Start: 03-08-2023 Office outpatient vi sit 25 minutes Modesto Chavarria Work Phone: [facility] 250 DO Work Phone: Start: 03-08-[address] Lalito Silva II Facility: Start: 02-22-2023 Office outpatient vi sit 25 minutes Modesto Chavarria [facility] Start: 02-22-2023 Telephone encounter Modesto TELLO [facility] Start: 02-22-2023 End: 02-23-[address] MODESTO CHAVARRIA [facility] [employer] Other Start: 02-21-2023 End: 03-18-2023 ambulatory SHAIKH Shady MCCURDY Facility:H1 Start: 01-19-2023 End: 02-18-2023 ambulatory SHAIKH Shady MCCURDY Facility:H1 Start: 12-22-2022 End: 01-19-[address] MODESTO CHAVARRIA Facility:H1 Start: 11-22-2022 End: 12-22-[address] MODESTO CHAVARRIA Facility:H1 Start: 11-01-2022 End: 11-02-[address] MODESTO CHAVARRIA Facility:H1 Start: 11-01-2022 Encounter for genera l adult medical examination without abnormal findings DR MODESTO CHAVARRIA [facility] Start: 10-28-2022 Adult health examination Wade min Aura Other [facility] [employer] Other Start: 10-28-2022 End: 10-29-[address] [...] patient visit DO Modesto Chavarria Work Phone: [facility] Start: 08-22-2022 End: 09-20-[address] MODESTO CHAVARRIA Facility:H1 Start: 07-22-2022 End: 08-21-[address] MODESTO CHAVARRIA Facility:H1 Start: 07-09-[address] Modesto Chavarria Facility: Start: 07-03-[address] Modesto Chavarria Facility:[id number] Start: 07-02-2022 Chart Update Modesto mcgill Work Phone: [facility] 250 DO Work Phone: Start: 07-02-[address] Lalito Silva II Facility:[id number] Start: 07-02-2022 End: 07-03-2022 Evaluation and management of inpatient DO Modesto Chavarria Work Phone: [facility] [place] [facility] Start: 07-01-[address] Modesto Chavarria Facility: Start: 07-01-[address] Milo fairbanks Cameron Facility: Start: 06-21-2022 End: 07-21-2022 ambulatory SHAIKH Shady MCCURDY Facility:H1 Start: 06-15-2022 Office outpatient vi sit 25 minutes Modesto Chavarria Work Phone: [facility] 250 DO Work Phone: Start: 06-15-[address] Lalito Silva II Facility: Start: 05-21-2022 End: 06-18-2022 ambulatory SHAIKH Shady MCCURDY Facility:H1 Start: 03-16-2022 Office outpatient vi sit 25 minutes Modesto Chavarria Work Phone: [facility] 250 DO Work Phone: Start: 01-21-2022 Chart Update Modesto mcgill Work Phone: [facility] 250 DO Work Phone: Start: 12-04-2021 Patient encounter procedure Modesto Chavarria Work Phone: [facility] 250 DO Work Phone: Start: 09-30-2021 Message Modesto mcgill Work Phone: [facility] 250 DO Work Phone: Start: 09-29-2021 Chart Update Modesto Moore Vinod mcgill Work Phone: [facility] 250 DO Work Phone: Start: 09-18-2021 Patient encounter procedure Modesto Chavarria Work Phone: [facility] [email or web address] 600 DO Work Phone: Start: 09-07-2021 Rx Renewal Modesto Moore Vinod mcgill Work Phone: [facility] [employer] 250 DO Work Phone: Start: 09-07-2021 Office outpatient vi sit 25 minutes Modesto Chavarria Work Phone: [facility] [employer] 250 DO Work Phone: Start: 09-24-2019 Encounter for other preprocedural examination Modesto Chavarria Other [employer] Other Start: 09-24-2019 Encounter for preprocedural cardiovascular examination Modesto Chavarria Other [employer] Other Start: 09-24-2019 Pre-procedure evalua tion check Modesto Chavarria Other [employer] Other Start: 09-24-2019 Preoperative cardiovascular examination Modesto Chavarria Other [employer] Other Start: 06-08-2017 End: 06-09-2017 Ambulatory DEFAULT PHYSICIAN Facility:[facility] Preoperative state Modesto caraballo Work Phone: [facility] [email or web address] 600 DO Work Phone: Procedures Date Procedure Procedure Detail Performing Clinician Start: 10-25-2024 Ecg routine ecg w/le ast 12 lds w/i&r Carri Marques MD Work Phone: Start: 06-18-2024 CT of abdomen and pe lvis without contrast DO Modesto Chavarria Work Phone: Start: 06-18-2024 Plain chest X-ray DO Be njamin Ball Work Phone: Start: 06-18-2024 SARS-CoV-2, Influenz a & RSV (PCR) DO Modesto [employer] Work Phone: Start: 04-23-2024 Diagnostic radiograp hy of abdomen DO Modesto Chavarria Work Phone: Start: 08-24-2022 CT cervical spine wi thout contrast DO Modesto [employer] Work Phone: Start: 08-24-2022 CT of head without contrast DO Modesto [employer] Work Phone: Start: 08-24-2022 Plain chest X-ray DO Be njamin Ball Work Phone: Start: 07-03-2022 Plain chest X-ray DO Be njamin [employer] Work Phone: Start: 07-02-2022 Plain chest X-ray DO Be njamin [employer] Work Phone: Start: 07-02-2022 Implantation of card iac pacemaker DO Modesto [employer] Work Phone: Start: 12-23-2015 Screening for malign ant neoplasm of colon Modesto Chavarria Other Start: 11-21-2005 Total colonoscopy Wade min E Ball Work Phone: Amputation of hand, thumb or finger Modesto E Aura Work Phone: Arthroplasty of knee Rosioami n E Ball Work Phone: Cataract surgery Modesto E Ball Work Phone: Cystoscopy Modesto E Aura Work Phone: Dental surgical procedure Be njamin E Ball Work Phone: Depression screening Rosioami n Aura Other Hemorrhoidectomy Modesto E Ball Work Phone: [...] DTaP/Tdap/Td Vaccines (5 - Td or Tdap) [facility] Start: 08-24-2032 DTaP/Tdap/Td Vaccine s (7 - Td or Tdap) DTaP/Tdap/Td Vaccines (7 - Td or Tdap) [facility] Start: 12-18-2025 End: 12-18-2025 Patient encounter procedure 12/18/2025 3:10 PM EST Office Visit [address] [id number] Carri Marques MD [address] [facility] [address] [place] [address] [facility] Start: 09-13-2025 ambulatory Ambulatory Facility:[facility] Start: 07-22-2025 Influenza vaccination Influenz a Vaccine (Season Ended) [facility] Start: 06-19-2025 Echocardiography Echocardiogram [facility] Start: 05-07-2025 End: 05-07-2025 Patient encounter procedure 05/07/2025 3:30 PM EDT Office Visit [facility] [address] [facility] [address] [place] [address] Carri Marques MD [address] [facility] [address] [place] [address] [facility] Start: 04-11-2025 Glaucoma screening Diabetes: R etinopathy Screening [facility] Start: 12-27-2024 Medicare Annual Well ness Visit Medicare Annual Wellness Visit (AWV) [facility] Start: 10-25-2024 End: 10-25-2024 Patient encounter procedure 10/25/2024 3:00 PM EST Office Visit [facility] [address] [place] [id number] Carri Marques MD [address] [place] [address] [facility] Start: 07-22-2024 COVID-19 Vaccine ( season) COVID-19 Vaccine () [facility] Start: 07-22-2024 COVID-19 Vaccine ( season) COVID-19 Vaccine () [facility] Start: 06-22-2024 [facility] Start: 06-19-2024 aPTT in Platelet poo r plasma by Coagulation assay [facility] Start: 06-19-2024 [facility] Start: 06-18-2024 End: 06-18-2024 [facility] Start: 06-18-2024 Physical therapy procedure [facility] Start: 06-18-2024 Referral to occupati onal therapist [facility] Start: 06-18-2024 Hospital admission [facility] Start: 04-23-2024 End: 04-23-2025 Comprehensive metabolic 2000 panel - Serum or Plasma Comprehensive Metabolic Panel Lab Routine Essential hypertension, benign Expected: 04/23/2024 (Approximate), Expires: 04/23/2025 [facility] Service Area Work Phone: Comment on above: Expected: 04/23/2024 (Approximate), Expires: 04/23/2025 Start: 04-23-2024 End: 06-03-2025 Natriuretic peptide B [Mass/volume] in Blood B-Type Natriuretic Peptide Lab Routine SOB (shortness of breath) on exertion Expected: 04/23/2024 (Approximate), Expires: 04/23/2025 [facility] Work Phone: Comment on above: Expected: 04/23/2024 (Approximate), Expires: 04/23/2025 Start: 04-20-2024 End: 04-20-2024 Patient encounter procedure 04/20/2024 2:40 PM EDT Office Visit [facility] [address] [facility] [address] [place] [address] Lalito Silva MD [address] [facility] [address] [place] [address] [facility] Start: 04-11-2024 Glaucoma screening Diabetes: R etinopathy Screening [facility] Start: 10-29-2023 Medicare Annual Well ness Visit Medicare Annual Wellness Visit (AWV) [facility] Start: 10-07-2023 FUV, Provider: Lalito Silva, Status: Pen, Time: 2:50 PM FUV, Provider: Lalito Silva, Status: Pen, Time: 2:50 PM [facility] 250 DO Work Phone: Start: 07-22-2023 COVID-19 Vaccine ( season) COVID-19 Vaccine ( season) [facility] Start: 07-22-2023 Influenza vaccination Influenza Vacc ine (#1) [facility] Start: 05-27-2023 [facility] Start: 05-26-2023 [facility] Start: 05-25-2023 [facility] Start: 05-24-2023 [facility] Start: 05-23-2023 [facility] Start: 05-22-2023 [facility] Start: 05-21-2023 [facility] Start: 05-20-2023 [facility] Start: 05-19-2023 [facility] Start: 05-18-2023 [facility] Start: 05-17-2023 [facility] Start: 05-16-2023 [facility] Start: 05-15-2023 [facility] Start: 05-14-2023 Referral to clay caster [facility] Start: 05-14-2023 Physical therapy procedure [facility] Start: 05-14-2023 Referral to occupati onal therapist [facility] Start: 05-14-2023 Hospital admission [facility] Start: 05-14-2023 End: 05-14-2023 [facility] Start: 05-14-2023 CT cervical spine wi thout contrast CT cervical spine wo con [facility] Start: 05-14-2023 CT Cervical spine WO contrast [facility] Start: 05-14-2023 CT of head without contrast CT head/brain wo con [facility] Start: 05-14-2023 CT Unspecified body region WO contrast [facility] Start: 05-14-2023 CT Chest WO contrast [facility] Start: 05-14-2023 CT of chest without contrast CT chest wo con [facility] Start: 03-08-2023 FUV, Provider: Lalito Silva, Status: Pen, Time: 9:10 AM FUV, Provider: Lalito Silva, Status: Pen, Time: 9:10 AM [facility] [employer] 250 DO Work Phone: Start: 10-17-2022 COVID-19 Vaccine (5 - Pfizer series) COVID-19 Vaccine (5 - Pfizer series) [facility] Start: 08-24-2022 [facility] Start: 07-09-2022 WOUNDJEFE, Provider : LINDA TRACY LEAD DRIVER 1,[id number], Status: Pen, Time: 9:30 AM CRISTOFER, Provider: LINDA TRACY LEAD DRIVER 1,[id number], Status: Pen, Time: 9:30 AM [facility] [employer] 250 DO Work Phone: Start: 07-03-2022 [facility] Start: 07-02-2022 End: 07-02-2022 [facility] Start: 07-02-2022 Insertion of Pacemak er Lead into Right Ventricle, Percutaneous Approach Insertion of Pacemaker Lead into Right Ventricle, Percutaneous Approach [facility] Start: 07-02-2022 Insertion of Pacemak er, Single Chamber into Chest Subcutaneous Tissue and Fascia, Percutaneous Approach Insertion of Pacemaker, Single Chamber into Chest Subcutaneous Tissue and Fascia, Percutaneous Approach [facility] Start: 06-15-2022 FUV, Provider: Lalito Silva, Status: Pen, Time: 11:30 AM FUV, Provider: Lalito Silva, Status: Pen, Time: 11:30 AM -[facility] 250 DO Work Phone: Start: 03-16-2022 FUV, Provider: Lalito Silva, Status: Pen, Time: 8:40 AM FUV, Provider: Lalito Silva, Status: Pen, Time: 8:40 AM -[facility] 250 DO Work Phone: Start: 02-09-2022 Glaucoma screening Diabetes: R etinopathy Screening [facility] Start: 09-22-2021 [facility], Provider: Naeem Ronquillo, Status: Pen, Time: 1:00 PM [facility], Provider: Naeem Ronquillo, Status: Pen, Time: 1:00 PM -[facility] 600 DO Work Phone: Start: 2020 RSV High Risk: (Elde rly (60+) or Population) (1 - 1-dose 75+ series) RSV High Risk: (Elderly (60+) or Population) (1 - 1-dose 75+ series) [facility] Start: 11-21-2017 Pneumococcal vaccination Pneum ococcal Vaccine (2 of 2 - PCV) [facility] Start: 11-21-2017 Pneumococcal Vaccine : 65+ Years (2 - PCV) Pneumococcal Vaccine: 65+ Years (2 - PCV) [facility] Start: 2005 RSV patient s and/or patients aged 60+ years (1 - 1-dose 60+ series) RSV patients and/or patients aged 60+ years (1 - 1-dose 60+ series) [facility] Start: 1995 Zoster Vaccines (1 of 2) Zoste r Vaccines (1 of 2) [facility] Start: 1964 Urine screening for protein Diabetes: Urine Protein Screening [facility] Start: 1963 Hepatitis C screening Hepatitis C Sc matt [facility] Start: 1955 Diabetic foot examination Diabetes: Foot Exam [facility] Start: 1945 Creatinine measurement Creatinine Le yani [facility] Start: 1945 Hemoglobin A1c measurement Cyndy betes: Hemoglobin A1C [facility] Start: 1945 Lipid panel Lipid Panel [facility] Start: 1945 Medicare Annual Well ness Visit Medicare Annual Wellness Visit (AWV) [facility] Start: 1945 Potassium measurement Potassium Leve l [facility] Start: 1945 Urine screening for protein Diabetes: Urine Protein Screening [facility] Albumin/Globulin ratio [facility] Anion gap measurement [facility] Basophils [#/volume] in Blood by Automated count [facility] Basophils/100 leukoc ytes in Blood by Automated count [facility] Comprehensive metabo lic 2000 panel - Serum or Plasma [facility] Eosinophils [#/volum e] in Blood [facility] Eosinophils/100 leuk ocytes in Blood by Automated count [facility] Erythrocyte distribu tion width [Ratio] by Automated count [facility] Erythrocytes [#/volu me] in Blood [facility] Globulin [Mass/volum e] in Serum [facility] Hematocrit [Volume Fraction] of Blood [facility] Hemoglobin [Mass/vol ume] in Blood [facility] Leukocytes [#/volume ] corrected for nucleated erythrocytes in Blood by Automated coun [facility] Leukocytes [#/volume ] in Blood [facility] Lymphocytes [#/volum e] in Blood by Automated count [facility] Lymphocytes/100 leuk ocytes in Blood by Automated count [facility] MCH [Entitic mass] b y Automated count [facility] MCHC [Mass/volume] b y Automated count [facility] MCV [Entitic volume] by Automated count [facility] Monocytes [#/volume] in Blood by Automated count [facility] Monocytes/100 leukoc ytes in Blood by Automated count [facility] Neutrophils [#/volum e] in Blood by Automated count [facility] Neutrophils/100 leuk ocytes in Blood by Automated count [facility] Nucleated erythrocyt es [Presence] in Blood by Automated count [facility] Patient Education Concussion, Ad ult (DC) Laceration Repair With Stitches (DC) [facility] Work Phone: Patient referral [facility] Work Phone: Platelet mean volume [Entitic volume] in Blood by Automated count [facility] Platelets [#/volume] in Blood [facility] SARS-CoV-2 (COVID-19 ) N gene [Presence] in Respiratory specimen by AN with probe detection [facility] Work Phone: [facility] Immunizations Immunization Date Immunization Notes Care Provider Fa fabio 08-14-2024 influenza, high dose seasonal, preservative-free [facility] 09-23-2023 influenza virus vaccine, unspecified formulation [facility] 09-23-2023 influenza, high dose seasonal, preservative-free Modesto Chavarria Other [facility] [employer] Other 08-24-2022 tetanus toxoid, redu siri diphtheria toxoid, and acellular pertussis vaccine, adsorbed DO Modesto Chavarria Work Phone: [facility] 08-22-2022 COVID-19 Vaccine Pfi zer - Documentation Purposes Only Modesto Chavarria Other [facility] [employer] Other 08-22-2022 diphtheria, tetanus toxoids and acellular pertussis vaccine, unspecified formulation Modesto Chavarria Other [facility] 08-22-2022 Fluzone High-Dose Quadrivalent 0.7 ML Intramuscular Suspension Prefilled Syringe Modesto Chavarria Work Phone: [facility] 250 DO Work Phone: 08-22-2022 influenza virus vaccine, split virus (incl. purified surface antigen) Modesto Chavarria Other [facility] [employer] Other 08-22-2022 influenza, high dose seasonal, preservative-free Lalito Silva MD Work Phone: [facility] Work Phone: 08-22-2022 Pfizer COVID-19 Vac Bivalent 30 MCG/0.3ML Intramuscular Suspension Modesto Chavarria Work Phone: [facility] 250 DO Work Phone: 08-22-2022 influenza virus vaccine, unspecified formulation Lalito Silva MD Work Phone: [facility] 02-02-2022 diphtheria, tetanus toxoids and pertussis vaccine Modesto Chavarria Work Phone: [facility] 02-02-2022 tetanus toxoid, redu siri diphtheria toxoid, and acellular pertussis vaccine, adsorbed Lalito Silva MD Work Phone: [facility] Work Phone: 08-26-2021 Pfizer-BioNTech COVID-19 Vacc 30 MCG/0.3ML Intramuscular Suspension Modesto Chavarria Work Phone: [place] [address] DO Work Phone: 08-21-2021 influenza virus vaccine, split virus (incl. purified surface antigen) Modesto Chavarria Other [facility] [employer] Other 08-21-2021 influenza virus vaccine, unspecified formulation [facility] 08-07-2021 influenza virus vaccine, unspecified formulation Lalito Silva MD Work Phone: [facility] Work Phone: 08-07-2021 influenza, injectabl e, quadrivalent, contains preservative Modesto Chavarria Work Phone: [facility] 250 DO Work Phone: Comment on above: Series: 01-12-2021 Pfizer-BioNTech COVID-19 Vacc 30 MCG/0.3ML Intramuscular Suspension Modesto Chavarria Work Phone: [place] [address] DO Work Phone: 12-22-2020 Pfizer-BioNTech COVID-19 Vacc 30 MCG/0.3ML Intramuscular Suspension Modesto Chavarria Work Phone: [place] [address] DO Work Phone: 07-29-2020 influenza virus vaccine, split virus (incl. purified surface antigen) Modesto Chavarria Other [facility] [employer] Other 07-29-2020 influenza virus vaccine, unspecified formulation [facility] 07-22-2020 influenza, seasonal, injectable Modesto Chavarria Work Phone: [place] [address] DO Work Phone: 09-14-2019 influenza virus vaccine, split virus (incl. purified surface antigen) Modesto Chavarria Other [facility] [employer] Other 09-14-2019 influenza virus vaccine, unspecified formulation [facility] 08-21-2019 influenza virus vaccine, unspecified formulation Modesto Oscar Aura Work Phone: [place] [address] DO Work Phone: 04-29-2019 tetanus toxoid, redu siri diphtheria toxoid, and acellular pertussis vaccine, adsorbed Lalito Silva MD Work Phone: [facility] Work Phone: 04-28-2019 diphtheria, tetanus toxoids and acellular pertussis vaccine, unspecified formulation Modesto Aura Other [facility] 08-21-2018 influenza virus vaccine, unspecified formulation Modesto Oscar Chavarria Work Phone: [place] [address] DO Work Phone: 08-10-2018 influenza virus vaccine, split virus (incl. purified surface antigen) Modseto Chavarria Other [facility] [employer] Other 08-10-2018 influenza virus vaccine, unspecified formulation [facility] 08-10-2018 Seasonal trivalent influenza vaccine, adjuvanted, preservative free Modesto Chavarria Work Phone: [facility] [employer] DO Work Phone: 08-09-2017 influenza virus vaccine, split virus (incl. purified surface antigen) Modesto Chavarria Other [facility] [employer] Other 08-09-2017 influenza virus vaccine, unspecified formulation [facility] 08-09-2017 influenza, high dose seasonal, preservative-free Modesto Chavarria Work Phone: [facility] [employer] [facility] DO Work Phone: 11-21-2016 influenza virus vaccine, unspecified formulation Modesto Chavarria Work Phone: [facility] [employer] [facility] DO Work Phone: 11-21-2016 pneumococcal polysaccharide vaccine, 23 valent Modesto Chavarria Work Phone: [facility] [employer] [facility] DO Work Phone: 08-05-2016 influenza virus vaccine, split virus (incl. purified surface antigen) Modesto Chavarria Other [facility] [employer] Other 08-05-2016 influenza virus vaccine, unspecified formulation [facility] 08-05-2016 pneumococcal conjuga te vaccine, 13 valent Modesto Chavarria Other [facility] 08-15-2014 tetanus and diphther ia toxoids, adsorbed, preservative free, for adult use (5 Lf of tetanus toxoid and 2 Lf of diphtheria toxoid) Modesto Aura Other [facility] 12-11-2013 pneumococcal polysaccharide vaccine, 23 valent Modesto Chavarria Other [facility] 08-01-2013 tetanus and diphther ia toxoids, adsorbed, preservative free, for adult use (5 Lf of tetanus toxoid and 2 Lf of diphtheria toxoid) Modesto Aura Other [facility] Payers Date Payer Category Payer Self-pay [id number] 2008 Medicare [id number] 1959 Medicare [id number] 1959 Unknown [id number] 1945 Unknown [id number] 2.16.84 0.1.814989.3.579.2.593 1945 Unknown [id number] 2.16.84 0.1.204849.3.579.2.593 1945 Unknown [id number] 2.16.84 0.1.395886.3.579.2.593 1945 Unknown [id number] 2.16.84 0.1.542156.3.579.2.593 1945 Unknown [id number] 2.16.84 0.1.144081.3.579.2.593 1945 Unknown [id number] 2.16.84 0.1.848578.3.579.2.593 1945 Unknown [id number] 2.16.84 0.1.777505.3.579.2.593 1945 Unknown [id number] 2.16.84 0.1.167138.3.579.2.593 1945 Unknown [id number] 2.16.84 0.1.587301.3.579.2.593 1945 Unknown [id number] 2.16.84 0.1.301259.3.579.2.593 1945 Unknown [id number] 2.16.84 0.1.883954.3.579.2.593 1945 Unknown [id number] 2.16.84 0.1.975688.3.579.2.593 1945 Unknown [id number] 2.16.84 0.1.302614.3.579.2.593 1945 Unknown [id number] 2.16.84 0.1.290363.3.579.2.593 1945 Unknown [id number] 2.16.84 0.1.944144.3.579.2.593 1945 Unknown [id number] 2.16.84 0.1.859144.3.579.2.593 1945 Unknown [id number] 2.16.84 0.1.168642.3.579.2.593 1945 Unknown [id number] 2.16. 840.1.114713.3.579.2.356 1945 Unknown [id number] 2.16. 840.1.315741.3.579.2.356 1945 Unknown [id number] 2.16. 840.1.062309.3.579.2.356 1945 Unknown [id number] 2.16. 840.1.831057.3.579.2.356 1945 Unknown [id number] 2.16. 840.1.192574.3.579.2.356 1945 Unknown [id number] 2.16. 840.1.327142.3.579.2.356 1945 Unknown [id number] 2.16. 840.1.061887.3.579.2.356 1945 Unknown [id number] 2.16. 840.1.302511.3.579.2.356 1945 Unknown [id number] 2.16. 840.1.939788.3.579.2.356 1945 Unknown [id number] 2.16. 840.1.349641.3.579.2.356 1945 Unknown [id number] 2.16. 840.1.097549.3.579.2.356 1945 Unknown [id number] 2.16. 840.1.256492.3.579.2.356 1945 Unknown [id number] 2.16. 840.1.987401.3.579.2.356 1945 Unknown [id number] 2.16. 840.1.080194.3.579.2.1244 1945 Unknown [id number] 2.16. 840.1.334445.3.579.2.1244 1945 Unknown [id number] 2.16.8 40.1.809362.3.579.2.727 1945 Unknown [id number] 2.16.8 40.1.557987.3.579.2.727 1945 Unknown [id number] 2.16.8 40.1.599353.3.579.2.727 1945 Unknown [id number] 2.16.[address].1.781807.3.579[address] [facility] Health Claims [id number] Unknown [id number] Unknown [id number] 2.16.8 40.1.358846.3.579.2.531 Unknown [id number] 2.16.8 40.1.760707.3.579.2.531 Social History Date Type Detail Facility Start: 10-06-2023 End: 05-07-2025 No illicit drug use No illicit drug use [facility] 250 DO Work Phone: Comment on above: QUIT 1996; Start: 07-02-2022 End: 05-07-2025 Tobacco smoking status NHIS Ex-smoker (finding) [facility] Start: 1945 Sex Assigned At Male [facility] Start: 08-24-2022 Tobacco smoking status NHIS Tobacco smoking consumption unknown (finding) [facility] Start: 10-06-2023 End: 05-07-2025 Sex Assigned At [employer] Other History of tobacco use Current smoker [facility] Work Phone: History of tobacco use Cigarette Smoker [facility] Work Phone: Start: 10-07-2023 End: 05-07-2025 Alcohol intake Current drinker of alcohol (finding) [facility] Work Phone: Start: 10-06-2023 Alcohol Comment occasional [facility] Work Phone: Start: 1945 Sex Assigned At Not on file [facility] Work Phone: Start: 09-27-2023 End: 10-25-2024 Exposure to SARS-CoV-2 (event) Not sure [facility] Start: 06-19-2024 Tobacco smoking status NHIS Never smoked tobacco (finding) [facility] Start: 01-30-2025 Sex Male (finding) [facility] Start: 05-07-2025 Tobacco use and exposure Smokeless tobacco non-user [facility] Work Phone: Medical Equipment Procedure Code Equipment Code Equipment Origin al Text Equipment Identifier Dates Insertion, pacemaker Endocardial pacing lead [id number] FDA Start: 07-02-2022 Insertion, pacemaker Single-chamber implantable pacemaker, rate-responsive ()[id number] FDA Start: 07-02-2022 Pen Needle, Diab [...] 32 gauge x 5/32 needle Start: 03-26-2024 Blood Sugar Diagnostic (Accu-Chek Guide Test Strips) strip Start: 12-05-2024 Pen Needle, Diab etic (Bd Ultra-Fine Cindy Pen Needle) 32 gauge x 5/32 needle Start: 03-26-2024 Blood Sugar Diagnostic (Accu-Chek Guide Test Strips) strip Start: 12-05-2024 End: 12-05-2024 Blood Sugar Diagnostic (Accu-Chek Guide Test Strips) strip Start: 12-05-2024 Pen Needle, Diab etic (Bd Ultra-Fine Cindy Pen Needle) 32 gauge x 5/32 needle Start: 03-26-2024 Blood Sugar Diagnostic (Accu-Chek Guide Test Strips) strip Start: 12-05-2024 End: 12-05-2024 Goals Date Patient Goal Desired Activity /State Functional Status Date Assessment Result Facility 06-22-2024 Functional status Patient at Baseline [facility] Work Phone: 07-03-2022 Functional status 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 male HPI Patient is here for follow-up and management for permanent atrial fibrillation, AV andrés disease, coronary artery disease and morbid obesity. Since last time I saw him he denies any change in cardiac status or symptoms. He has lost q around 14 pounds over the last year. He has been on Ozempic. His blood pressure running on the low range but completely asymptomatic. He reports he had his device check done not too long ago at [facility] result not available to me. His lab work noted and reviewed with him Assessment 1. Permanent atrial fibrillation heart rate controlled. 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 He is on anticoagulation with Coumadin 2. History of AV andrés disease and complete heart block status post permanent pacemaker implantation. I will try to retrieve his recent device check 3. Coronary artery disease with remote PCI to the circumflex stable no anginal symptoms 4. Morbid obesity currently on Ozempic and has lost 12 kg over the last few months 5. Long-term anticoagulation well-tolerated with Coumadin without any side effect 6. Previous hospitalization for GI symptoms and hypotension resolved his recent hospitalization record noted and reviewed with him 7. Hyperlipidemia on pravastatin recent lab noted and reviewed with him 8. Obstructive sleep apnea has not been compliant with his CPAP 9. Since his weight loss his blood pressure is running on the low range Plan 1. I reviewed with the patient his lab work. I will also try to retrieve his recent device check 2. I encouraged him to be compliant with his CPAP 3. I encouraged him to continue to address his weight and counseled him regarding diet and exercise 4. Risk, benefit alternative of anticoagulation reviewed with him he understood and agreed 5. I will see him back in the office in 8 months and follow-up Review of Systems Constitutional: Positive for malaise/fatigue. Cardiovascular: Positive for leg swelling. Respiratory: Positive for shortness of breath. All other systems reviewed and are negative. Vitals: 05/07/25 1542 BP: 96/56 BP Location: Left arm Patient Position: Sitting Pulse: 60 Weight: 133 kg (293 lb) Height: 1.702 m (5' 7 ) [...] normal. Allergies Penicillins Current Medications Current Outpatient Medications Medication Instructions allopurinol (Zyloprim) 300 mg tablet 1 tablet, Daily cholecalciferol (VITAMIN D3) 25 mcg, Daily citalopram (CeleXA) 20 mg tablet 1 tablet, Daily cyanocobalamin (VITAMIN B-12) 1,000 mcg, Daily Lantus U-100 Insulin 100 unit/mL injection INJECT 20 UNITS SUBCUTANEOUS EVERY NIGHT AT BEDTIME lisinopriL-hydrochlorothiazide 10-12.5 mg tablet 1 tablet, 2 times daily nitroglycerin (NITROSTAT) 0.4 mg, Every 5 min PRN Ozempic 0.25 mg, Once Weekly potassium bicarbonate (K-Lyte) 25 mEq effervescent tablet 25 mEq, 2 times daily pravastatin (PRAVACHOL) 40 mg, oral, Daily torsemide (DEMADEX) 10 mg, oral, Daily warfarin (COUMADIN) 4 mg Assessment/Plan 1. SOB (shortness of breath) on exertion 2. Permanent atrial fibrillation (Multi) Follow Up In Cardiology 3. Pacemaker 4. Essential hypertension, benign 5. Complete heart block 6. Atherosclerosis of [place] coronary artery of [place] heart without angina pectoris 7. BMI 45.0-49.9, adult (Multi) 8. QUETA (obstructive sleep apnea) 9. Former smoker Scribe Attestation By signing my name below, Carla Davila LPN, Scribe attest that this documentation has been prepared under the direction and in the presence of Carri Marques MD. Provider Attestation - Scribe documentation All medical record entries made by the Scribe were at my direction and personally dictated by me. I have reviewed the chart and agree that the record accurately reflects my personal performance of the history, physical exam, discussion and plan. documented in this encounter [facility] Work Phone: 05-07-2025 Instructions Carla Magana LPN - 05/07/2025 3:30 PM EDT Please bring all medicines, vitamins, and herbal supplements with you when you come to the office. Prescriptions will not be filled unless you are compliant with your follow up appointments or have a follow up appointment scheduled as per instruction of your physician. Refills should be requested at the time of your visit. Fall Prevention Education Given BMI was above normal measurement. Current weight: 133 kg (293 lb) Weight change since last visit (-) denotes wt loss -12 lbs Weight loss needed to achieve BMI 25: 133.7 Lbs Weight loss needed to achieve BMI 30: 101.9 Lbs Provided instructions on dietary changes Provided instructions on exercise. Lisinopril hydrochlorothiazide one tablet daily Pacemaker/Defibrillator follow up per routine documented in this encounter [facility] Work Phone: 11-20-2024 Evaluation note Diagnosis Onset Date Resolution Atrial fibrillation acute Decem 2023 9:32am Chronic kidney disease acute De cem2023 9:32am High cholesterol acute November 20, 2024 9:32am Hypertension acute October 9:32am Major depression acute November 20, 2024 9:32am QUETA (obstructive sleep apnea) acute November 20, 024 9:32am Type 2 diabetes mellitus with hyperglycemia acute October 9:32am ASHD (arteriosclerotic heart disease) acute January 30, 2025 10:06am Atrial fibrillation acute January 30, 2025 10:06am Chronic kidney disease acute [facility] 2024 10:06am High cholesterol acute January 302024 10:06am Hypertension acute January 30, 2025 10:06am Major depression acute January 302024 10:06am Medicare annual wellness visit, subsequent acute January 30 10:06am QUETA (obstructive sleep apnea) acute January 30, 2025 10:06am Screening PSA (prostate specific antigen) acute January 30 10:06am Type 2 diabetes mellitus with hyperglycemia acute January 30, 025 10:06am [facility] Work Phone: 1(190) 288-809512-05-2024 History of Present illness Narrative* Carri Marques MD - 10/25/2024 3:00 PM EST Subjective Nirmal Chaidez is a 79 y.o. male Chief Complaint Follow-up HPI Patient is here for follow-up continue management for permanent atrial fibrillation, heart block status post permanent pacemaker implantation, coronary artery disease with prior PCI to the circumflexremotely. He is a patient of Dr. Silva. [...] one tablet by mouth as directed by [facility], Disp: , Rfl: Assessment/Plan 1. Permanent atrial fibrillation (Multi) Follow Up In Cardiology Follow Up In Cardiology ECG 12 Lead 2. SOB (shortness of breath) on exertion 3. Complete heart block 4. Pacemaker 5. Mixed hyperlipidemia 6. Essential hypertension, benign 7. Atherosclerosis of [place] coronary artery of [place] heart without angina pectoris 8. QUETA (obstructive sleep apnea) 9. BMI 50.0-59.9, adult (Multi) 10. Former smoker Scribe Attestation By signing my name below, I, Magdalena Macedo LPN , Mee attest that this documentation has been prepared under the direction and in the presence of MD Jeromy. Provider Attestation - Scribe documentation All medical record entries made by the Scribe were at my direction and personally dictated by me. Ihave reviewed the chart and agree that the record accurately reflects my personal performance of the history, physical exam, discussion and plan. documented in this [facility] Work Phone: 1(923) 957-189712-05-2024 Instructions* Patient Instructions* Magdalena Feliciano LPN - 10/25/2024 3:00 PM [...] on exercise. Pacemaker/Defibrillator follow up per routine * Attachments The following attachments cannot be sent through Care Everywhere. * Heart Healthy Diet ([place]ican) documented in this [facility] Work Phone: 1(820) 272-464310-04-2024 NotePatient Education Urology Urinary Incontinence Urinary incontinence refers to a condition in which a person is unable to control where and when topass urine. A person with this condition will [...] the bladder, urethra, and sphincter can store andrelease urine. There are different types of urodynamic [...] of moderate-intensity exercise every week. Ask your healthcare provider which activities are safe for you. [...] urges. This can include distraction techniques or controlledbreathing exercises. ? Medicines, such as: ? Medicines to relax the bladder muscles and prevent bladder spasms. ? Medicines to help slow or prevent the growth of a man's prostate. ? Botox injections. These can help relax the bladder muscles. ? Treatments, such as: ? Using pulses of electricity to help change bladder reflexes (electrical nerve stimulation). ? For women, using a medical liaison to prevent urine leaks. This is a [...] that can protect the (more content not included)...[facility]08-01-2024 Progress note Author Stalin Miranda [facility] June 21, 2024 1:50pm Note Date/Time June 21, 2024 1:4 2pm [facility] [address] [place] [address] Hospitalist Progress Note Signed Patient: Nirmal Chaidez MR#: [id number] : 1945 Acct:[id number] Age/Sex: 78 / M Adm Date: 4 Loc: 3T Room: [address] [place] [address] Type: ADM IN Attending Dr: Stalin Miranda [...] 136/85 95 Room Air 06/21/24 11:21 06/21/24 11:06/21/24 11:21 06/21/24 11:21 06/21/24 11:06/21/24 11:06/18/24 23:31 Narrative: Constitutional: Obese WM, [...] signed by Stalin Miranda MD> 06/21/24 13[address] [facility] Work Phone: 1(185) 242-981907-31-2024 Progress note Author Stalin Miranda [facility] June 20, 2024 1:50pm Note Date/Time June 20, 2024 1:27 pm [facility] [address] [place] [address] Hospitalist Progress Note Signed Patient: Nirmal Chaidez MR#: [id number] : 1945 Acct:[id number] Age/Sex: 78 / M Adm Date: 4 Loc: Room: [address] [place] [address] Type: ADM IN Attending Dr: Stalin Miranda [...] want to move forward with going to [facility]. Shannon need 2 additional midnights for [...] Lactated Ringers IV 06/20/24 22:24 75 mls/hr .[id number] KAYKAY Administration Insulin Glargine 10 units 06/19/24 [...] <Electronically signed by Stalin Miranda MD> 06/20/24 1351 [facility] Work Phone: 1(954) 651-733907-31-2024 Progress note Author Carri Marques [facility] June 20, 2024 11:29am Note Date/Time June 20, 2024 11:2 9am [facility] [address] [place] [address] Cardiology Progress Note Signed Patient: Nirmal Chaidez MR#: [id number] : 1945 Acct:[id number] Age/Sex: 78 / M Adm Date: 4 Loc: Room: [address] [place] [address] Type: ADM IN Attending Dr: Stalin Miranda [...] MPV Neut % (Auto) Lymph % (Auto) [place] % (Auto) Eos % (Auto) Baso % (Auto) Nucleat RBC Rel Count Neut # (Auto) Lymph # (Auto) [place] # (Auto) Eos # (Auto) Baso # [...] % (Auto) 70.3 Lymph % (Auto) 18.3 [place] % (Auto) 8.0 Eos % (Auto) 2.7 Baso % (Auto) 0.7 Nucleat RBC Rel Count 0.2 Neut # (Auto) 6.1 Lymph # (Auto) 1.6 [place] # (Auto) 0.7 Eos # (Auto) 0.2 [...] will follow on as-needed basis Documented By: Carri Marques MD 06/20/241126 Signed By: <Electronically signed by MD Carri Marques> 06/20/24 1129 [facility] Work Phone: 1(385) 847-252107-30-2024 Progress note Author Stalin Miranda [facility] June 19, 2024 8:14pm Note Date/Time June 19, 2024 7:37 pm [facility] [address] [place] [address] Hospitalist Progress Note Signed Patient: Nirmal Chaidez MR#: [id number] : 1945 Acct:[id number] Age/Sex: 78 / M Adm Date: 4 Loc: 3T Room: [address] [place] [address] Type: ADM IN Attending Dr: Stalin Miranda [...] Actually states that patient going to a halfway facility may be in his best interest, [...] <Electronically signed by Stalin Miranda MD> 06/19/242013 [facility] Work Phone: 1(864) 946-812407-30-2024 Consult note Author Carri Marques [facility] June 19, 2024 11:38am Note Date/Time June 19, 2024 11:3 4am [facility] [address] [place] [address] Cardiology Consult Note Signed Patient: Nirmal Chaidez MR#: [id number] : 1945 Acct:[id number] Age/Sex: 78 / M Adm Date: 4 Loc: Room: [address] [place] [address] Type: ADM INOo Attending Dr: Stalin Miranda [...] 06/18/24] pen needle, diabetic 32 gauge x /32 (BD Ultra-Fine Cindy Pen Needle) See Rx [...] Lymph # (Auto) 2.2 1.9 (1.00-4.8) x10E3/uL [place] # (Auto) 0.7 0.8 (0.0-0.8) x10E3/uL Eos [...] ml @ 999 mls/hr IV .Q31M ONE Rx#:[id number] Oral 200 / 200 Other: # Voids [...] device function 5. Check echocardiogram Documented By: Carri Marques MD 06/19/24 1129 Signed By: <Electronically signed by MD Carri Marques> 06/19/24 1138 [facility] Work Phone: 1(261) 312-887807-30-2024 History and physical note Author Stalin Miranda [facility] June 18, 2024 11:07pm Note Date/Time June 18, 2024 10:0 5pm [facility] [address] [place] [address] Hospitalist H&P Signed Patient: Nirmal Chaidez MR#: [id number] : 1945 Acct:[id number] Age/Sex: 78 / M Adm Date: 4 Loc: Room: 3S0668-4 Type: ADM INOo Attending Dr: Stalin Miranda [...] % (Auto) 18.8 % (.) 06/18/24 15:52 [place] % (Auto) 5.6 % (.) 06/18/24 15:52 Eos % (Auto) 1.1 % (.) 06/18/24 15:52 Baso % (Auto) 0.6 % (.) 06/18/24 15:52 Nucleat RBC Rel Count 0.1 /100 WBC (0-0.5) 06/18/24 15:52 Neut # (Auto) 8.6 x10E3/uL (1.8-7.7) H 06/18/24 15:52 Lymph # (Auto) 2.2 x10E3/uL (1.00-4.8) 06/18/24 15:52 [place] # (Auto) 0.7 x10E3/uL (0.0-0.8) 06/18/24 15:52 [...] pH 5.5 (5.0-9.0) 06/18/24 19:00 Ur Specific [place] 1.014 (1.001-1.030) 06/18/24 19:00 Urine Protein Negative [...] <Electronically signed by Stalin Miranda MD> 06/18/24 0631 [facility] Work Phone: 1(470) 686-339206-03-2024 History of Present illness Narrative* Lalito Silva [...] one tablet by mouth as directed by [facility], Disp: , Rfl: 1. Pacemaker [...] - B-Type Natriuretic Peptide 7. Atherosclerosis of [place] coronary artery of [place] heart without angina pectoris No recurrence of any symptoms suspicious for progression of coronary disease 8. Mixed hyperlipidemia Review of treatment strategy demonstrates acceptable control Pacemaker/Defibrillator follow up per routine Scribe Attestation By signing my name below, IBella LPN , Scribe attest that this documentation has been prepared under the direction and in the presence of Clarissa Silva MD. Provider Attestation - Scribe documentation All medical record entries made by the Scribe were at my direction and personally dictated by me. Ihave reviewed the chart and agree that the record accurately reflects my personal performance of the history, physical exam, discussion and plan. documented [facility] Work Phone: 1(622) 891-521906-03-2024 Instructions* Patient Instructions* Destiney Rodrigez LPN - [...] time of your visit. documented in this encounterNorwalk [facility] Work Phone: 1(707) 203-344102-05-2024 Evaluation note* Encounter Date Diagnosis Assessment Notes [...] are maintaining regular scheduled appts with their clay caster. No bleeding complications Dec, Stage 3a chronic [...] use, the patient reduces the risk for OK, CVA, HTN, cardiac dysrhythmias and sudden cardiac [...] diastolic congestive heart failure (ICD-10 - I50.33) [employer] Other 11-27-2023 Evaluation note* Encounter Date Diagnosis [...] and plan to stop Metformin in future [employer] Other 11-27-2023 Evaluation note* Encounter Date Diagnosis [...] index [BMI] 50.0-59.9, adult (ICD-10 - Z68.43) [employer] Other 11-17-2023 History of Present illness Narrative* [...] one tablet by mouth as directed by [facility], Disp: , Rfl: Assessment/Plan 1. Pacemaker Satisfactory device checks demonstrating greater than 10-year battery life 2. Permanent atrial fibrillation (CMS/HCC) Treated with rate control and antithrombotic therapy. Stable 3. Mixed hyperlipidemia Well-controlled on current therapy 4. Essential hypertension, benign Well-controlled on current therapy 5. Complete heart block (CMS/HCC) Necessitating pacemaker implantation. Device checks are satisfactory 6. Atherosclerosis of newtok coronary artery of newtok heart without angina pectoris Asymptomatic. documented in [facility]Nor[facility] Work Phone: 1(972) 687-145811-17-2023 Instructions* Patient Instructions* Ashleigh Starks LPN - [...] follow up per routine documented in this [facility]Norwalk [facility] Work Phone: 1([phone]) 429-730811-03-2023 Evaluation note* Encounter Date Diagnosis Assessment Notes [...] are maintaining regular scheduled appts with their clay caster. No bleeding complications Sep, Stage 3a chronic [...] use, the patient reduces the risk for OK, CVA, HTN, cardiac dysrhythmias and sudden cardiac [...] block (ICD-10 - I44.2) s/p PM insertion. [employer] Other 11-03-2023 Evaluation note* Encounter Date Diagnosis [...] are maintaining regular scheduled appts with their clay caster. No bleeding complications Sep, Stage 3a chronic [...] use, the patient reduces the risk for OK, CVA, HTN, cardiac dysrhythmias and sudden cardiac [...] block (ICD-10 - I44.2) s/p PM insertion. [employer] Other 08-03-2023 Evaluation note* Encounter Date Diagnosis [...] are maintaining regular scheduled appts with their clay caster. No bleeding complications Jun, Stage 3a chronic [...] use, the patient reduces the risk for OK, CVA, HTN, cardiac dysrhythmias and sudden cardiac [...] severe symptoms Aware will increase BS temporarily [employer] Other 08-03-2023 Evaluation note* Encounter Date Diagnosis [...] are maintaining regular scheduled appts with their clay caster. No bleeding complications Jun, Stage 3a chronic [...] use, the patient reduces the risk for OK, CVA, HTN, cardiac dysrhythmias and sudden cardiac deaths.The patient is also aware of the association between QUETA and morning headaches, daytime somnolence, fatigue and obesity Noncompliant Jun, Acute allergic rhinitis due to pollen (ICD-10 - J30.1) Flonase and Yumiko during exacerbation of allergic symptoms. Kenalog injection for severe symptoms Aware will increase BS temporarily [employer] Other 07-18-2023 Evaluation note* Encounter Date Diagnosis Assessment Notes Treatment Notes Treatment Clinical Notes May, Type 2 diabetes mellitus with hyperglycemia, without long-term current use of insulin (ICD-10 - E11.65) [employer] Other 07-05-2023 Evaluation note* Encounter Date Diagnosis Assessment Notes Treatment Notes Treatment Clinical Notes May, Type 2 diabetes mellitus with hyperglycemia, without long-term current use of insulin (ICD-10 - E11.65) [facility] [employer] Other 07-03-2023 Evaluation note* Encounter Date Diagnosis Assessment Notes Treatment Notes Treatment Clinical Notes May, Vitamin D deficiency (ICD-10 - E55.9) [facility] [employer] Other 06-25-2023 History and physical note Author Stalin Miranda [facility] May 14, 2023 11:31pm Note Date/Time May 14, 2023 10:1 7pm [facility] [address] [place] [address] Hospitalist H&P Signed Patient: Nirmal Chaidez MR#: [id number] : 1945 Acct:[id number] Age/Sex: 77 / M Adm Date: 3 Loc: Room: [address] [place] [address] Type: ADM IN Attending Dr: Stalin Miranda [...] 3 weeks ago and was admitted to [facility] for 1 week and subsequently went to [...] for that which is noted above in [facility] Medical History A-fib COPD (chronic obstructive [...] % (Auto) 15.6 % (.) 05/14/23 19:49 [place] % (Auto) 4.0 % (.) 05/14/23 19:49 Eos % (Auto) 1.7 % (.) 05/14/23 19:49 Baso % (Auto) 0.5 % (.) 05/14/23 19:49 Nucleat RBC Rel Count 0.1 /100 WBC (0-0.5) 05/14/23 19:49 Neut # (Auto) 8.2 x10E3/uL (1.8-7.7) H 05/14/23 19:49 Lymph # (Auto) 1.6 x10E3/uL (1.00-4.8) 05/14/23 19:49 [place] # (Auto) 0.4 x10E3/uL (0.0-0.8) 05/14/23 19:49 [...] 3 Documented By: Stalin Miranda MD 3 2214 Signed By: <Electronically signed by Stalin Miranda MD> 05/14/23 2331 [facility] Work Phone: 1(156) 883-453306-22-2023 Evaluation note* Encounter Date Diagnosis Assessment Notes [...] are maintaining regular scheduled appts with their clay caster. No bleeding complications Apr, Type 2 diabetes [...] use, the patient reduces the risk for OK, CVA, HTN, cardiac dysrhythmias and sudden cardiac deaths.The patient is also aware of the association between QUETA and morning headaches, daytime somnolence, fatigue and obesity, which also has been improved with continued use.The patient is compliant with treatment, wearing the equipment every night for greater than 4 hours.The patient is instructed to continue use of the CPAP for QUETA treatment. [employer] Other 04-19-2023 Evaluation note* Encounter Date Diagnosis Assessment Notes Treatment Notes Treatment Clinical Notes Feb, Cardiac pacemaker in situ (ICD-10 - Z95.0) [employer] Other 04-04-2023 Evaluation note* Encounter Date Diagnosis [...] are maintaining regular scheduled appts with their clay caster. Feb, Primary hypertension (ICD-10 - I10) This [...] use, the patient reduces the risk for OK, CVA, HTN, cardiac dysrhythmias and sudden cardiac [...] NESS (generalized anxiety disorder) (ICD-10 - F41.1) [employer] Other 04-04-2023 Evaluation note* Encounter Date Diagnosis Assessment Notes Treatment Notes Treatment Clinical Notes Feb, Type 2 diabetes mellitus with hyperglycemia, without long-term current use of insulin (ICD-10 - E11.65) [facility] [employer] Other Discharge summary Author Milo Cameron [facility] July 03, 2022 4:59pm Note Date/Time July 03, 2022 4: 59pm [facility] [address] [place] [address] Discharge Summary Signed Patient: Nirmal hCaidez MR#: [id number] : 1945 Acct:[id number] Age/Sex: 76 / M Adm Date: 2 Loc: Room: [address] [place] [address]: Lalito Silva MD Copies to: DO Milo Matos MD, [facility] Lalito Silva MD~ Providers Date of Discharge: 07/03/22 Discharging Provider: Milo Cameron Primary Care Provider: Modesto Chavarria Discharge Diagnosis Final Diagnosis Final Discharge Diagnosis: Syncope Permanent atrial fibrillation Bradycardia Status post successful pacemaker insertion Summary Hospital Course Hospital course: Patient was transferred from [facility] to have a permanent pacemaker placed due [...] with nurse for incision check in the [facility] on 07/09/2022 at 9:30am. 2. Chest x-ray to be done the same day as your device check in [facility]. 3. Pacemaker/ICD clinic appointment at [facility] in 15 weeks- they will call you. 4. Office visit with Dr. Silva in the [place] [facility] in 15 weeks- we will call [...] DIRECTED Label Comments: Take as directed by [facility] allopurinol 300 mg Tablet 300 mg PO DAILY hydrocodone-acetaminophen 5-325 mg tablet 1 - 2 tab PO Q4-6H PRN (Reason: pain) 3 Days Qty: 14 0RF Documented By: Milo Cameron MD, [facility] 2 1656 Signed By: <Electronically signed by [facility] Milo Cameron> 07/03/22 1659 [facility] Work Phone: Discharge summary Author Stalin Miranda [facility] June 22, 2024 1:02pm Note Date/Time June 22, 2024 12: 57pm [facility] [address] [place] [address] Discharge Summary Signed Patient: Nirmal Chaidez MR#: [id number] : 1945 Acct:[id number] Age/Sex: 78 / M Adm Date: 4 Loc: Room: [address] [place] [address]: Stalin Miranda MD Copies to: [...] Consult to Cardiology Routine Comment: Consulting Provider: [facility], [facility] Reason For Exam: Pre-syncope, [...] amlodipine, torsemide. Physical and occupational therapy recommended halfway for rehab prior to patient going home. Patient and his are agreeable to short stay at SNF to work on strengthening. Patient was discharged to [facility] for further PT/OT needs. He was discharged in stable condition. 35 minutes spent coordinating the discharge of this patient Time Spent with Patient Time spent providing/coordinating discharge services (# min): 35 Discharge Plan Discharge Plan Patient Disposition: Halfway Facility Activity: No Activity Restriction Diet: Low-Sodium [...] tablet 5 mg PO DAILY Follow Up: Carri Marques MD [Active Staff] - 10/25/24 3:00 pm [...] % (Auto) 73.9, Lymph % (Auto) 17.0, [place] % (Auto) 6.4, Eos % (Auto) 2.0, Baso % (Auto) 0.7, Nucleat RBC Rel Count 0.1, Neut # (Auto) 7.7, Lymph # (Auto) 1.8, [place] # (Auto) 0.7, Eos # (Auto) 0.2, [...] signed by Stalin Miranda MD> 06/22/24 1302 [facility] Work Phone: Evaluation noteNo assessment information available [facility] Work Phone: Evaluation noteNo [employer] Other Evaluation note* Diagnosis Onset Date Resolution Status Acute head injury acute Fall acute Syncope acute [facility] Work Phone: Evaluation note* Diagnosis Pacemaker- Primary Cardiac pacemaker in situ Permanent atrial fibrillation (CMS/HCC) Atrial fibrillation Mixed hyperlipidemia Essential hypertension, benign Complete heart block (CMS/HCC) Atrioventricular block, complete Atherosclerosis of newtok coronary artery of new[place] heart without angina pectoris documented in this encounter [facility] Work Phone: Evaluation note* Diagnosis Onset Date Resolution Status Atrial fibrillation acute Chronic kidney disease acute High cholesterol acute Hypertension acute Major depression acute QUETA (obstructive sleep apnea) acute Type 2 diabetes mellitus with hyperglycemia acute [facility] Work Phone: Evaluation note* Diagnosis Atherosclerosis of newtok coronary artery of new[place] heart without angina pectoris- Primary Pacemaker Cardiac pacemaker in situ Permanent atrial fibrillation (Multi) Atrial fibrillation Essential hypertension, benign Complete heart block (Multi) Atrioventricular block, complete BMI 50.0-59.9, adult (Multi) SOB (shortness of breath) on exertion Shortness of breath Mixed hyperlipidemia documented in this encounter [facility] Work Phone: Evaluation note* Diagnosis Onset Date Resolution Status Atrial fibrillation acute Chronic kidney disease acute High cholesterol acute Hypertension acute Major depression acute QUETA (obstructive sleep apnea) acute Type 2 diabetes mellitus with hyperglycemia acute Acute electrocardiogram changes acute Nausea & vomiting acute Viral illness acute [facility] Work Phone: Evaluation note* Diagnosis Onset Date Resolution Status Atrial fibrillation acute Chronic kidney disease acute High cholesterol acute Hypertension acute Major depression acute QUETA (obstructive sleep apnea) acute Type 2 diabetes mellitus with hyperglycemia acute Acute electrocardiogram changes acute Nausea & vomiting acute Pre-syncope acute Viral illness acute [facility] Work Phone: Evaluation note* Diagnosis Onset Date Resolution Status Pre-syncope acute Acute electrocardiogram changes resolved Nausea & vomiting resolved Viral illness resolved [facility] Work Phone: Evaluation note* Diagnosis Permanent atrial fibrillation (Multi)- Primary Atrial fibrillation SOB (shortness of breath) on exertion Shortness of breath Complete heart block Atrioventricular block, complete Pacemaker Cardiac pacemaker in situ Mixed hyperlipidemia Essential hypertension, benign Atherosclerosis of newtok coronary artery of new[place] heart without angina pectoris QUETA (obstructive sleep apnea) Obstructive sleep apnea (adult) (pediatric) BMI 50.0-59.9, adult (Multi) Former smoker Personal history of tobacco use, presenting hazards to health documented in this encounter [facility] Work Phone: Evaluation note* Diagnosis SOB (shortness of breath) on exertion- Primary Shortness of breath Permanent atrial fibrillation (Multi) Atrial fibrillation Pacemaker Cardiac pacemaker in situ Essential hypertension, benign Complete heart block Atrioventricular block, complete Atherosclerosis of newtok coronary artery of newtok heart without angina pectoris BMI 45.0-49.9, adult (Multi) QUETA (obstructive sleep apnea) Obstructive sleep apnea (adult) (pediatric) Former smoker Personal history of tobacco use, presenting hazards to health Mixed hyperlipidemia documented in this encounter [facility] Work Phone: Evaluation note* Diagnosis Onset Date Resolution Status Admit Date ASHD (arteriosclerotic heart disease) acute June 11, 2025 2:56pm Atrial fibrillation acute June 11, 2025 2:56pm Chronic kidney disease acute Ju 2024 2:56pm High cholesterol acute May 2:56pm Hypertension acute June 11, 2 025 2:56pm Major depression acute May 2:56pm QUETA (obstructive sleep apnea) acute June 11, 2025 2:56pm Type 2 diabetes mellitus wit h hyperglycemia acute June 11, 2025 2:56pm [facility] Work Phone: History general Narrative - Reported* Type Description Date Medical History Diabetes Medical History Hypertension Medical History High Cholesterol Surgical History lithrotripsy Surgical History heart stent 2017 Surgical History bilateral knee replacement Surgical History cartioversion 2018 Surgical History kidney stone blasted 2018 Hospitalization History kidney stones and septic 2017 Hospitalization History see above [employer] Other History general Narrative - Reported* Type Description Date Medical History Diabetes Medical History Hypertension Medical History High Cholesterol Medical History QUETA Surgical History lithrotripsy Surgical History heart stent 2017 Surgical History bilateral knee replacement Surgical History cartioversion 2018 Surgical History kidney stone blasted 2018 Hospitalization History kidney stones and septic 2017 Hospitalization History see above [employer] Other History of Present illness Narrative* Patient [...] the above we will proceed as noted. -Marissa [employer] DO Work Phone: History of Present illness [...] diet and weight loss were discussed in detail.-Marissa [employer] 250 DO Work Phone: History of Present [...] all the above we recommend no change. -[facility] 250 DO Work Phone: Hospital Discharge instructions [...] with nurse for incision check in the [facility] on 07/09/2022 at 9:30am. 2. Chest x-ray to be done the same day as your device check in [facility]. 3. Pacemaker/ICD clinic appointment at [facility] in 15 weeks- they will call you. 4. Office visit with Dr. Silva in the [place] [facility] in 15 weeks- we will call you with appointment. [][facility] Work Phone: Hospital Discharge instructions Additional Instructions Keep your laceration clean with soap and water daily. Apply antibiotic ointment once daily. Follow-up with PCP for suture removal in 7 days.[facility] Work Phone: Hospital Discharge [...] precautions [facility] Work Phone: Reason for referral (narrative)* Consultation (Routine) - Authorized Specialty Diagnoses / Procedures Referred By Contac t Referred To Contact Cardiology Diagnoses Pacemaker Permanent atrial fibrillation (CMS/HCC) Essential hypertension, benign Complete heart block (CMS/HCC) Procedures Follow Up In Cardiology Lalito Silva MD [address] [place] [address] 2, [address] [address] Lalito Silva MD [address] [place] [address], [address] [address] Referral ID Status Reason Start Date Expiration Date V isits Requested Visits Authorized [id number] Authorized 10/07/2023 10/06/2024 1 1 [facility] Work Phone: Reieja for referral (narrative)* Consultation (Routine) - Authorized Specialty Diagnoses / Procedures Referred By Contac t Referred To Contact Cardiology Diagnoses Permanent atrial fibrillation (Multi) Procedures Follow Up In Cardiology Lalito Silva MD [address] [place] [address] 2, [address] [address] Carri Marques MD [address] [place] [address] 2, [address] [address] Referral ID Status Reason Start Date Expiration Date V isits Requested Visits Authorized [id number] Authorized 04/23/2024 04/23/2025 1 1 [facility] Work Phone: Reason for referral (narrative)No reason for referral information availableBluff[facility] Work Phone: Summary Purpose Family History [...] 8:25am Chief Complaint Order sent to [facility] for testing due in NovemberNIRMAL CHAIDEZ is being seen for a 6 [...] Home Visit nusrsing home visit Amb Documentation senior care follow up/flu shot Reason for Visit Pre-syncope Acute electrocardiogram changes Nausea & vomiting Viral illness Chief Complaint Admit Date 3 month f/u November 20, 2024 9:32am CC Adult Risk Stratification November 1:58pm 3 month f/u-HIGH RISK January 30, 2025 1 0:06am Reason for Visit Admit Date Atrial fibrillation November 20, 2024 9:32am Chronic kidney disease November 20 9:32am High cholesterol November 20, 2024 9:32am Hypertension November 20, 2024 9:32am Major depression November 20, 2024 9:32am QUETA (obstructive sleep apnea) October 232023 9:32am Type 2 diabetes mellitus with hyperglyce javy November 20, 2024 9:32am ASHD (arteriosclerotic heart disease) [facility] 2024 10:06am Atrial fibrillation January 30, 2025 10: 06am Chronic kidney disease January 30, 2025 10:06am High cholesterol January 30, 2025 10: 06am Hypertension January 30, 2025 10: 06am Major depression January 30, 2025 10: 06am Medicare annual wellness visit, subseque nt January 30, 2025 10:06am QUETA (obstructive sleep apnea) January 10:06am Screening PSA (prostate specific antigen ) January 30, 2025 10:06am Type 2 diabetes mellitus with hyperglyce javy January 30, 2025 10:06am Chief Complaint Admit Date 3 month f/u-HIGH RISK June 11, 2025 2: 56pm Reason for Visit Admit Date ASHD (arteriosclerotic heart disease) Ju 2024 2:56pm Atrial fibrillation June 11, 2025 2:56 pm Chronic kidney disease June 11, 2025 2 :56pm High cholesterol June 11, 2025 2:56 pm Hypertension June 11, 2025 2:56 pm Major depression June 11, 2025 2:56 pm QUETA (obstructive sleep apnea) June 11, 2025 2:56pm Type 2 diabetes mellitus with hyperglyce javy June 11, 2025 2:56pm Additional Source Comments (unrecognized sect ion and content) No Status Records FoundNo Status Records FoundNo Status Records FoundNo Status Records FoundNo Status Records FoundNo Status Records FoundNo Status Records FoundNo Status Records Found INFORMATION SOURCE (unrecogn ized section and content) DATE CREATED AUTHOR 05/17/2018 [facility] DATE CREATED AUTHOR AUTHOR'S ORGANIZ ATION 05/08/2019 [facility] DATE CREATED AUTHOR AUTHOR'S ORGANIZ ATION 06/16/2022 [employer] DATE CREATED AUTHOR AUTHOR'S ORGANIZ ATION 04/29/2023 [facility] DATE CREATED AUTHOR AUTHOR'S ORGANIZ ATION 05/19/2023 [facility] DATE CREATED AUTHOR AUTHOR'S ORGANIZ ATION 12/03/2024 [facility] DATE CREATED AUTHOR AUTHOR'S ORGANIZ ATION 05/10/2025 [facility] DATE CREATED AUTHOR AUTHOR'S ORGANIZ ATION 08/01/2025 [facility] Care Teams (unrecognized sec tion and content) [...] DO Primary Care Provider Active Domenico Betancourt DO Emergency Provider 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 Start Date End Date Modesto Chavarria DO [address] [place] [address] [address] [place] [address] PCP - General 11/21/99 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 Start Date End Date Modesto Chavarria DO PCP - General 11/21/99 Team Status: Inactive Member Role Status Dates Modesto Chavarria DO Primary Care Provider Active Start: April 23, 2024 End: April 23, 2024 [facility] Attending Provider Active Start: April 23, 2024 [...] August 14, 2024 End: August 14, 2024 [employer]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 Start Date End Date Modesto Chavarria DO PCP - General 11/21/99 Team Status: Inactive Member Role Status Dates Modesto Chavarria DO Primary Care Provide r, Attending Provider Active Start: November 20, 2024 End: November 20, 2024 Team Status: Active Member Role Status Dates Modesto Chavarria DO Primary Care Provide r, Attending Provider Active Start: November 27, 2024 Team Status: Inactive Member Role Status Dates Modesto Chavarria DO Primary Care Provide r, Attending Provider Active Start: January 30, 2025 End: January 30, 2025 [employer]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 Start Date End Date Modesto Chavarria DO [address] [place] [address] PCP - General Internal Medicine 04/23/25 Team Status: Inactive Member Role Status Dates Modesto Chavarria DO Primary Care Provider Active Start: June 11, 2025 End: June 11, 2025 Modesto Chavarria DO Attending Provider Active Sta rt: June 11, 2025 End: June 11, 2025 REASON FOR VISIT (unrecogniz ed section and content) Reason Comments Follow-up 6m Reason Comments Follow-up 6m fu Specialty Diagnoses / Procedures Referred By Contac t Referred To Contact Cardiology Diagnoses Pacemaker Permanent atrial fibrillation (Multi) Essential hypertension, benign Complete heart block (Multi) Procedures Follow Up In Cardiology Lalito Silva MD [address] [place] [address], [address] [address] Lalito Silva MD [address] [place] [address], [address] [address] Referral ID Status Reason Start Date Expiration Date V isits Requested Visits Authorized [id number] Authorized 10/07/2023 10/06/2024 1 1 Reason Comments Follow-up 6 m Specialty Diagnoses / Procedures Referred By Contac t Referred To Contact Cardiology Diagnoses Permanent atrial fibrillation (Multi) Procedures Follow Up In Cardiology Lalito Silva MD Traboulssi, Mourhaf, MD [address] [place] [address] 2, [address] [address] Phone: tel: fax: Referral ID Status Reason Start Date Expiration Date V isits Requested Visits Authorized [id number] Authorized 04/23/2024 04/23/2025 1 1 Reason Comments Follow-up 6 month Follow up fo r Atrial Fibrillation Specialty Diagnoses / Procedures Referred By Contac t Referred To Contact Cardiology Diagnoses Permanent atrial fibrillation (Multi) Procedures Follow Up In Cardiology Carri Marques MD [address] [facility] 2, [place], [place] [address] Phone: tel: fax: Carri Marques MD [address] [facility] 2, [address] [address] Phone: tel: fax: Referral ID Status Reason Start Date Expiration Date V isits Requested Visits Authorized [id number] Authorized 10/25/2024 10/25/2025 1 1 Goals (unrecognized section and content) [...] BE BASED ON THE PRIMARY CLINICAL RECORDS. [employer] provides no warranty or guarantee of the accuracy or completeness of information in this document.
--- NOTE | 2025-09-09 16:25 | XR_ITS ---
The [place] [id number] Patient Name: NIRMAL CHAIDEZ MRN: [id number] date: 1945 Sex: M Assigned Patient Location: RAD Current Patient Location: [facility] Accession/Order Number: [id number] Exam Date: 09/09/2025 16:18 Report Date: 09/09/2025 17:10 At the request of: HUSSEIN GIBSON MD Procedure: XR abdomen 1V KUB INDICATION: Kidney stone COMPARISON: 04/02/2024 FINDINGS: Calcific density projecting over the right kidney noted. This measures 6 mm in size. No additional calculi identified within the genitourinary tract. Otherwise moderate stool burden. No definite bowel obstruction. XR/XR abdomen 1V IMPRESSION: Findings suspicious for 6 mm calculus right lower pole. Moderate colonic stool burden. Impression dictated by: Daryl Bonner M.D. 09/09/2025 5:10 PM Dictation Location: [place] [address] Electronically authenticated by: [id number] Y Date: 09/09/2025 17:10
== END 2025-09-09 16:12 | disposition home or self-care (01) ==
PROVIDERS: PCP Internal Medicine; Visit Provider Urology
DX: N20.0 Calculus of kidney (principal)
CPT/HCPCS: 74018

== ENCOUNTER 2025-09-18 11:37 | Outpatient (OUT) | payer MEDICARE, OTHER, SELFPAY ==
--- NOTE | 2025-09-18 11:39 | US_ITS ---
The [address] [address] Patient Name: NIRMAL CHAIDEZ MRN: [id number] date: 1945 Sex: M Assigned Patient Location: US Current Patient Location: US Accession/Order Number: [id number] Exam Date: 09/18/2025 11:40 Report Date: 09/18/2025 21:49 At the request of: HUSSEIN GIBSON MD Procedure: US renal BI BILATERAL RENAL AND BLADDER ULTRASOUND CLINICAL HISTORY: Kidney Stone COMPARISON: KUB 09/09/2025 Evaluation degraded due to body habitus and decreased through transmission of sound. Estimation of renal size is approximately 12.2 x 8.6 x 8.2 cm in size on the right and 13.1 x 5.9 x 7.6 cm on the left. No contour deforming mass, definite shadowing stone or hydronephrosis. Right-sided cyst 5.1 x 5.0 x 4.6 image size. Multiple left-sided cysts largest measuring 5.8 x 5.7 x 4.8 cm. The urinary bladder is poorly distended with a volume of 27 ml. No shadowing stone or focal lesion US/US renal BI IMPRESSION: NO OBSTRUCTIVE UROPATHY. BILATERAL CYSTS. Impression dictated by: Daryl Bonner M.D. 09/18/2025 9:49 PM Dictation Location: [place] [address] Electronically authenticated by: [id number] Y Date: 09/18/2025 21:49
--- OUTSIDE RECORDS SUMMARY | 2025-09-18 11:39 | XMS_ITS | Clinical Summary ---
Author Organization [facility] Address [address] [place] [address] Phone Care Team Providers Care Ultrasound Technologist Sonographer Name Role Phone Modesto George DO Primary Care Provider [phone] Allergies Active AllergyReactionsCriticalityNoted DateCommentsPenicillinsHives,UnknownHigh 10/06/2023 Medications MedicationSigDispense QuantityRefillsLast FilledStart DateEnd DateStatus allopurinol (Zyloprim) 300 mg tablet Take 1 tablet (300 mg) by mouth once daily.Active citalopram (CeleXA) 20 mg tablet Take 1 tablet (20 mg) by mouth once daily.Active nitroglycerin (Nitrostat) 0.[address] 1 tablet (0.4 mg) under the tongue every 5 minutes if needed for chest pain.Active potassium bicarbonate (K-Lyte) 25 mEq effervescent tablet Take 1 tablet (25 mEq) by mouth 2 times a day.Active warfarin (Coumadin) 4 mg tablet Take 1 tablet (4 mg) by mouth. Take one tablet by mouth as directed by [facility]Active semaglutide (Ozempic) 0.25 mg or 0.5 mg(2 mg/1.5 mL) pen injector Inject 0.25 mg under the skin 1 (one) time per week.Active torsemide (Demadex) 10 mg tablet Indications:Essential hypertension, benignTAKE 1 TABLET BY MOUTH ONCE DAILY 90 tablet 5Active pravastatin (Pravachol) 40 mg tablet Indications:Mixed hyperlipidemiaTAKE 1 TABLET BY MOUTH ONCE DAILY 90 tablet 5Active Lantus U-100 Insulin 100 unit/mL injection INJECT 20 UNITS SUBCUTANEOUS EVERY NIGHT AT HYTKHMM74/02/2024Active cholecalciferol (Vitamin D3) 25 mcg (1,000 units) capsule Take 1 capsule (25 mcg) by mouth once daily.Active cyanocobalamin (Vitamin B-12) 1,000 mcg tablet Take 1 tablet (1,000 mcg) by mouth once daily.Active lisinopriL-hydrochlorothiazide 10-12.5 mg tablet Indications:Essential hypertension, benignTake 1 tablet by mouth once daily. 90 tablet ///ctive Active Problems ProblemNoted DateDiagnosed DateOSA (obstructive sleep apnea)10/25/2024Former qpvfkv7710/25/2024MI 45.0-49.9, adult04/23/2024therosclerosis of coronary artery of [place] heart without angina xdsjuuzh36/16/2023omplete heart block10/06/2023 Diabetes uidtsvtz42/16/2787Swyhr67/16/2023Essential hypertension, benign 10/06/2023Facial kjnfigrcic47/16/2023History of fxyjsm1710/06/2023Hyperlipidemia 10/06/2023Injury of head10/06/2023Neck pain10/06/20237661Hjygasiyn59/16/2023 Permanent atrial yrfftdljunji78/16/2023SOB (shortness of breath) on exertion 10/06/20236134Pfwswxv86/16/2023 Immunizations ImmunizationAdministration DatesNext YpmUWG0402/02/2022Flu vaccine, trivalent, preservative free, HIGH-DOSE, age 65y+ (Fluzone)08/22/2022Influenza, Unspecified 08/07/2021,08/21/2019,08/21/2018,11/21/2016Pfizer Purple Cap SARS-CoV-2 08/22/2022neumococcal polysaccharide vaccine, 23-valent, age 2 years and older (PNEUMOVAX 23)11/21/2016Tdap vaccine, age 7 year and older (BOOSTRIX, ADACEL) 08/24/2022,02/02/2022,04/29/2019 Family History Medical HistoryRelationNameCommentsDiabetesFatherLymphomaFatherCABGMother DiabetesMotherHeart failureMotherRelationNameStatusCommentsFatherMother Social History Tobacco UseTypesPacks/DayYears UsedDateSmoking Tobacco: FormerCigarettes Smokeless Tobacco: Never Tobacco Cessation:Counseling Given: Not Answered Alcohol UseStandard Drinks/WeekCommentsYes0 (1 standard drink = 0.6 oz pure alcohol)occasionalSex and Gender InformationValueDate RecordedSex Assigned at BirthNot on fileLegal YzyIzxv76/25/2022 9:25 PM ESTGender IdentityNot on file Sexual OrientationNot on file Last Filed Vital Signs Vital SignReadingTime TakenCommentsBlood Sppniwrb12/56005/07/2025 3:42 PM EDT Tuneb9206/17/2025 3:42 PM APFXzreegqlrba63.4 ??C (97.6 ??F)07/09/2022 9:59 AM EDTRespiratory Rate--Oxygen Saturation--Inhaled Oxygen Concentration--Ifnhym706 kg (293 lb)05/07/2025 3:42 PM NQYCxwfze086.2 cm (5' 7 )05/07/2025 3:42 PM EDT Body Mass Index45.8905/07/2025 3:42 PM EDT Plan of Treatment DateTypeDepartmentCare Team (Latest Contact Info)Wshzcfmmlev47/28/2026 3:10 PM ESTOffice Visit [facility] [address] [phone] Michael Mullen MD 703 [facility] 2, [address] [address] Health MaintenanceDue DateLast DoneCommentsCreatinine Level1945Diabetes: Hemoglobin A1C1945Diabetes: Urine Protein Drphyjess1945Lipid Panel 1945Potassium Level1945Hepatitis C Ivcxygsmc61/06/1963Zoster Vaccines (1 of 2)1995Pneumococcal Vaccine (2 of 2 - PCV)11/21/2017 11/21/2016RSV High Risk: (Elderly (60+) or Population) (1 - 1-dose 75+ series)09/26/20201099Pfgakpmibbecaf25/30/202507/, 05/16/2023, 07/01/2022 Influenza Vaccine (#1)/12/2021, 08/07/2021, 08/21/2019, Additional history existsCOVID-19 Vaccine ( - season)/12/2021Medicare Annual Wellness Visit (AWV)/10/2025, 12/26/2023, 10/28/2022, Additional history existsDiabetes: Retinopathy Gvllwqjek04/11/2024, 04/11/2023, 02/09/2021, Additional history existsDTaP/Tdap/Td Vaccines (6 - Td or Tdap)/02/2022, 02/02/2022, 02/02/2022, Additional history exists HIB VaccinesAged OutNo longer eligible based on patient's age to complete this topicHPV VaccinesAged OutNo longer eligible based on patient's age to complete this topicHepatitis A VaccinesAged OutNo longer eligible based on patient's age to complete this topicHepatitis B VaccinesAged OutNo longer eligible based on patient's age to complete this topicIPV VaccinesAged OutNo longer eligible based on patient's age to complete this topicMeningococcal VaccineAged OutNo longer eligible based on patient's age to complete this topicRotavirus VaccinesAged Out No longer eligible based on patient's age to complete this topic Procedures Procedure NamePriorityDate/TimeAssociated DiagnosisCommentsECHOCARDIOGRAM 06/19/2024 from Last 3 Months or Most Recently Relevant to Health Maintenance Results * Echocardiogram (06/19/2024) Narrative 06/19/2024 Ordered by an unspecified provider. Authorizing ProviderResult TypeResult StatusGeneric Provider ScanningCV ECHO PROCEDURESFinal Result from Last 3 Months or Most Recently Relevant to Health Maintenance Insurance Care Teams Team MemberRelationshipSpecialtyStart DateEnd Date Modesto George DO [place] [address] PCP - GeneralInternal Medicine04/23/25
--- OUTSIDE RECORDS SUMMARY | 2025-09-18 11:39 | XMS_ITS | Clinical Summary ---
Author Organization [facility] Address [address] [place] [address] Care Team Providers Care Medical Transcriber Name Role Phone Unavailable Primary Care Provider Unavailabl e Social History Tobacco UseTypesPacks/DayYears UsedDateSmoking Tobacco: Never AssessedSex and Gender InformationValueDate RecordedSex Assigned at BirthNot on fileLegal Sex Male03/21/2023 8:33 PM EDTGender IdentityNot on fileSexual OrientationNot on file Plan of Treatment Not on file Insurance
--- OUTSIDE RECORDS SUMMARY | 2025-09-18 11:39 | XMS_ITS | Clinical Summary ---
Author Organization [facility] Address [address] [place] [address] Care Team Providers Care Knit Goods Mender Name Role Phone Rafat George Primary Care Provider [phone] Social History Tobacco UseTypesPacks/DayYears UsedDateSmoking Tobacco: Never AssessedSex and Gender InformationValueDate RecordedSex Assigned at BirthNot on fileLegal Sex Male10/22/2012 9:09 AM ESTGender IdentityNot on fileSexual OrientationNot on file Plan of Treatment Not on file Insurance Care Teams Team MemberRelationshipSpecialtyStart DateEnd Date Rafat George [address] [place] [address] [facility] - General03/03/01
--- OUTSIDE RECORDS SUMMARY | 2025-09-18 11:54 | XMS_ITS | CCD ---
Author Organization [facility] Care Team Providers Care Supervisor Alteration Workroom Name Role Phone PHYSICIAN, DEFAULT Unavailable Unavailable PHYSICIAN, DEFAULT Unavailable Unavailable Modesto Chavarria Unavailable Unavailable Unavailable Unavailable Unavailable DO Modesto Chavarria Primary Care Provider MD Lalito Silva Admit Provider MD Lalito [...] Unavailable Ball, DO Salvador Primary Care Provider [phone] DO Ran Addison Emergency Provider MD Stalin Miranda Admit Provider MD Stalin Miranda Attending Provider [phone] Shira TOBIN, Dr. Lalito Savage Attending Unavailable [...] Shira II, Dr. Lalito Savage Referring Unavailable Aura, Dr. Modesto Galan Primary Care Julia Chavarria, Dr. Modesto Galan Primary Care Julia Cameron, Dr. Milo Taylor Attending Cassi bindu Chavarria, Dr. Modesto Galan Primary Care Julia Chavarria, Dr. Modesto Galan Primary Care Cassinéstor Chavarria DO, Modesto Galan Primary Care Provider Modesto Chavarria DO Primary Care Provider DO Modesto Chavarria Primary Care Provider [phone] MK Soriano Marva Attending Provider MD Lalito Silav Other Provider DO Domenico Betancourt Emergency Provider MD Stalin Cabezas Admit Provider MD Stalin Miranda Attending Provider DO Domenico Betancourt Emergency Provider MD Stalin Cabezas Admit Provider MD Stalin Miranda Attending Provider DO Modesto Chavarria Primary Care Provider Modesto Chavarria Primary Care Unavailable Lalito Silva Consulting Unavail able Marva Soriano Admitting Unavailable Marva Soriano Attending Unavailable Modesto Chavarria Primary Care Unavailable Meredith Frost Consulting Unavailable Stalin Miranda Admitting Unavailab Stalin Cannon Attending Unavailab Constanza Contrreas Consulting Unavailable Milo Cameron Consulting Unavailable Lalito Silva Consulting Unavail able Carri Marques Consulting Unavailable Prashanth Marshall Consulting Unavailab Isabell Lopez Consulting Unavailable Jillian Hector Consulting Unavailable Ej Mandujano Consulting Unavailab Rachel De Leon Consulting Unavailable Gretel Palma Consulting Unavailable Modesto Chavarria DO E Primary Care Provider CARRI MARQUES Attending Unavailable LALITO SILVA Referring Unavailable AURA MODESTO E Primary Care Unavailable TRABOULHARVEYI, MOGURUF Attending Unavailable TRABYOONI, MOURHAF Referring Unavailable AURAMODESTO E Primary Care Unavailable Modesto Chavarria DO Primary Care Provider Aura Modesto MEDINA Attending Provider [phone] Carlos Alberto GIBSON Attending Unavailable Trabyooni, Mourjaynaf Admitting Unavailable Trabburton, Saraf Attending Unavailable Paz, Saraf Referring Unavailable Lalito Silva Admitting Unavailable Lalito Silva Attending Unavailable Lalito Silva Referring Unavailable Carlos Alberto GIBSON Attending Unavailable Allergies Allergy ClassificationReported Allergen(s)Allergy TypeDate of OnsetReaction(s) FacilitymetFORMIN (1 source)metFORMINDrug Zljtnrh80-26-8834EusyjlhAdena Regional Medical CenterPenicillins (antibiotic) (4 sources)PenicillinsDrug Mrwsxyq52-31-7841WrnqlCent[place] (19 sources)Penicillins; Translations: [Penicillins]Allergy to drug (finding) 45-07-9142[facility]txDun[facility] (5 sources)Penicillin; Translations: [penicillin G]Drug Ycibquy01-40-6451NhjjcSt. Mary'S Medical Center (20 sources)Penicillin G Benzathine; Translations: [penicillin G benzathine]Drug zyfatgv71-69-6288Qayvqbs, [facility] (1 source)Grass pollenDrug allergy (disorder)[facility] (1 source)house dust allergenic extractDrug AllergyThe [facility] (1 source)PenicillinsDrug allergy (disorder)29-65-1354Chw [facility] (14 sources)metFORMINDrug Vcxvoyc16-33-2378Vfthqlj, [facility] (8 sources)Albuterol *ANTIASTHMATIC AND BRONCHODILATOR AGENTSPropensity to adverse reactionsUnknown2v Solutions Other (8 sources)Substance with penicillin structure and antibacterial mechanism of action (substance)Drug allergyUnknoMissouri Rehabilitation Center Near Page Other (2 sources)PenicillinsDrug Ssbhrcq52-03-0928Qlgpc, [facility] (1 source)metFORMINDrug Cnllxta44-91-4983ThqqwbypkGood [facility] (1 source)PenicillinsDrug allergy (disorder)06-37-3141JauyexlvbGood Samaritan Hospital [facility]ository (1 source)PenicillinsDrug Vmksioy36-90-3566Nrstv, [facility] (1 source)Dust; Translations: [Dust]Propensity to adverse reactions (disorder) [facility] (1 source)Penicillin; Translations: [penicillin]Drug AllergyHolzer Health System [facility] (1 source)Pollen; Translations: [Pollen]Propensity to adverse reactions (disorder)[facility] Medications Current Medications MedicationDrug Class(es)DatesSig (Normalized)Sig (Original)0.25 MG, 0.5 MG Dose 3 ML semaglutide 0.68 MG/ML Pen Injector [Ozempic] (3 sources)Start: 55-62-0227Qbtwpis (0.25 or 0.5 MG/DOSE) 2 MG/3ML 0.25MG Subcutaneous weekly for 28 days Sep, Activeallopurinol 300 mg oral tablet (20 sources)Xanthine Oxidase InhibitorStart: 02-28-2024 End: 99-65-1476kaun 1 tablet by mouth once dailyAllopurinol 300 mg tablet Active 0 .ROUTE .COMPLEX February 13, 2025 6:19pm TAKE 1 TABLET BY MOUTH EVERY DAY Complies with drug therapyStart: 18-74-9776eqrj 1 tablet by mouth once daily Allopurinol Active 0 .ROUTE .COMPLEX February 28, 2024 8:41am Take 1 tablet by mouth daily 90Start: 04-26-2018 End: 14-23-0247agel 1 tablet by mouth once dailyAllopurinol 300 mg Tablet Discontinued 300 MG PO Daily April 26, 2018 12:00am February 28, 2024 8:43amBlood Glucose Test - (1 source)Start: 60-11-6602Dqkgn Glucose Test - as directed In Vitro daily for 90 days Dec, Activecholecalciferol 0.125 mg oral capsule (19 sources)Vitamin DStart: 07-95-5289biwk 1 capsule by mouth once daily Cholecalciferol (Vitamin D3) 125 mcg (5,000 unit) capsule Active 125 MCG PO Daily March 23, 2024 12:00am Complies with drug therapyStart: 81-12-0338zwql 1 capsule by mouth every weekVitamin D3 1.25 MG (40994 UT) 1 capsule Orally weekly for 30 days May, Activetake 1 capsule by mouth once daily cholecalciferol (Vitamin D3) 25 mcg (1,000 units) capsule Take 1 capsule (25 mcg) by mouth once daily. ActivehydroCHLOROthiazide 12.5 mg / lisinopril 10 mg oral tablet (20 sources)Thiazide Diuretic, Angiotensin Converting Enzyme InhibitorStart: 05-07-2025 End: 96-02-3813hpda 1 tablet by mouth once dailylisinopriL-hydrochlorothiazide 10-12.5 mg tablet Indications: Essential hypertension, benign Take 1tablet by mouth once daily. 90 tablet 3 05/07/2025 05/07/2026 ActiveStart: 06-22-2024 End: 85-42-9166afob 1 tablet by mouth once dailyLisinopril-Hydrochlorothiazide 20-12.5 mg tablet Active 1 TAB PO Daily 180 June 22, 2024 12:46pm1 tab orally; Complies with drug therapyStart: 05-29-2024 End: 40-95-3361uvgq 2 tablets by mouth once dailyLisinopril-Hydrochlorothiazide 20-12.5 mg tablet Discontinued 0 .ROUTE .COMPLEX 180 May 29, 2024 9:10am June 22, 2024 12:47pm Take 2 tablets by mouth daily 90Start: 10-07-2023 End: 17-44-9736vekg 1 tablet by mouth twice dailylisinopriL-hydrochlorothiazide 10-12.5 mg tablet Indications: Essential hypertension, benign Take 1tablet by mouth 2 times a day. 180 tablet 3 10/07/2023 10/06/2024 ActiveStart: 05-25-2023 take 1 tablet by mouth every twenty-four hoursLisinopril-hydroCHLOROthiazide 10- 12.5 MG 1 tablet Orally Once a day May, ActiveStart: 07-02-2022 End: 70-45-1003flke 1 tablet by mouth once dailyLisinopril-Hydrochlorothiazide 10-12.5 mg Tablet Discontinued 1 TAB PO Daily July 02, 2022 12:00am August 24, 2022 7:29amStart: 04-26-2018 End: 82-08-7924yxnh 2 tablets by mouth once dailyLisinopril-Hydrochlorothiazide 20-12.5 mg Tablet Discontinued 2 TAB PO Daily April 26, 2018 12:00amJuly 2023 9:10aminsulin glargine,hum.rec.anlog (INSULIN GLARGINE SUBQ) (2 sources)inject 20 [IU] by subcutaneous injection once daily at bedtimeinsulin glargine,hum.rec.anlog (INSULIN GLARGINE SUBQ) Inject 20 Units under the skin once daily atbedtime. Activeozempic (0.25 or 0.5 mg/dose) 2 mg/3ml solution pen-injector (1 source)Start: 18-61-0964Bokjspz (0.25 or 0.5 MG/DOSE) 2 MG/3ML 0.25MG Subcutaneous weekly Sep, Activepravastatin sodium 40 mg oral tablet (20 sources)HMG-CoA Reductase InhibitorStart: 04-26-2018 End: 03-44-0125yiow 1 tablet by mouth once dailypravastatin (Pravachol) 40 mg tablet Indications: Mixed hyperlipidemia TAKE 1 TABLET BY MOUTH ONCE DAILY 90 tablet 3 11/22/2024 Active0.25 mg, 0.5 mg dose 1.5 ml semaglutide 1.34 mg/ml pen injector (3 sources)semaglutide (Ozempic) 0.25 mg or 0.5 mg(2 mg/1.5 mL) pen injector Inject 0.25 mg under the skin 1 (one) time per week. Activesemaglutide (2 sources)Start: 90-08-1729wgpedwoykdv Active 1.2 MG SUBCUT WE@0900 June 20, 2024 12:00am please verify dose with compound dose from pharmacy. patient due for dose today 06/20/24Semaglutide (1 source)Start: 54-20-6529qxujvq 2 mg by subcutaneous injection every week Semaglutide (Ozempic) 2 mg/dose (8 mg/3 mL) pen injector Active 2 MG SUBCUT every week August 12:00am Complies with drug therapySemaglutide (Ozempic) 2 mg/dose (8 mg/3 mL) pen injector (1 source)Start: 19-55-0353zjecjb 2 mg by subcutaneous injection every week Semaglutide (Ozempic) 2 mg/dose (8 mg/3 mL) pen injector Active 2 MG SUBCUT every week August 12:00amsildenafil 100 mg oral tablet (6 sources)Phosphodiesterase 5 Inhibitortake 1 tablet by mouth every twenty-four hoursSildenafil Citrate 100 MG 1 tablet as needed Orally Once a day Active torsemide 10 mg oral tablet (20 sources)Loop DiureticStart: 64-80-0782xxbj 1 tablet by mouth once daily torsemide (Demadex) 10 mg tablet Indications: Essential hypertension, benign TAKE 1 TABLET BY MOUTHONCE DAILY 90 tablet 3 11/22/2024 ActiveStart: 03-16-2022 End: 92-04-5907smfe 1 tablet by mouth once dailyTorsemide 10 mg tablet Discontinued 10 MG PO Daily May 14, 2023 12:00am March 23, 2024 4:34pmvitamin b12 1 mg sublingual tablet (6 sources)Vitamin D61Vghcp: 73-71-2809ymxd 1 tablet under the tongue once daily Cyanocobalamin (Vitamin B-12) 1,000 mcg tablet, sublingual Active 1000 MCG SUBLINGUAL Daily 90 90 June 11, 2025 12:00am Complies with drug therapyStart: 06-22-2024 End: 37-87-0398wsdc 1 tablet by mouth once daily in the morningCyanocobalamin (Vitamin B-12) 1,000 mcg Tablet Discontinued 1000 MCG PO Every morning 0 June 12:00am June 11, 2025 3:41pm Completed/Discontinued Medications MedicationDrug Class(es)DatesSig (Normalized)Sig (Original)acetaminophen 500 mg oral tablet (18 sources)Start: 05-14-2023 End: 19-43-5920zgxc 2 tablets by mouth every six hours as needed for pain Acetaminophen 500 mg Tablet Discontinued 1000 MG PO Q6H as needed for Pain May 14, 2023 12:00am March 23, 2024 4:33pmStart: 05-14-2023 End: 20-42-6048dybq 1000 mg by mouth every six hoursAcetaminophen Discontinued 1000 MG PO Q6H May 14, 2023 12:00am March 23, 2024 4:33pmStart: 05-26-2018 End: 24-52-1828pmze 1 capsule by mouth every four to six hours as needed for painAcetaminophen (Tylenol) 325 mg Capsule Discontinued 325 MG PO EVERY 4-6 HOURS as needed for Fever Or Pain May 26, 2018 12:00am August 11, 2021 1:14pmacetaminophen 325 mg / HYDROcodone bitartrate 5 mg oral tablet (20 sources)Opioid AgonistStart: 03-07-2022 End: 57-82-4568vnyq 1 tablet by mouth every four to six hours as needed for pain Hydrocodone-Acetaminophen 5-325 mg tablet Discontinued 1 - 2 TAB PO EVERY 4-6 HOURS as needed for pain 14 3 March 07, 2022 August 24, 2022 7:31amStart: 11-26-2018 End: 21-64-5057eule 1 tablet by mouth every four to six hours as needed for pain Hydrocodone-Acetaminophen ([place]) 5-325 mg tablet Discontinued 1 TAB PO EVERY 4- 6 HOURS as needed for pain 12 3 November 26, 2018 August 11, 2021 1:14pm acetaminophen 325 mg / oxyCODONE hydrochloride 5 mg oral tablet (7 sources)Opioid AgonistStart: 05-16-2023 End: 16-00-5553ozag 1 tablet by mouth once daily as needed for painOxycodone- Acetaminophen (Endocet) 5-325 mg tablet Discontinued 1 TAB PO Daily as needed for pain 146 May 16, 2023 March 23, 2024 4:34pmamiodarone hydrochloride 200 mg oral tablet (20 sources)AntiarrhythmicStart: 11-26-2018 End: 08-00-9946vtad 1 tablet by mouth twice dailyAmiodarone 200 mg Tablet Discontinued 200 MG PO Twice daily November 26, 2018 1:00am August 24, 2022 7:31amStart: 04-26-2018 End: 63-94-5495dqkf 1 tablet by mouth once dailyAmiodarone 200 mg Tablet Discontinued 200 MG PO Daily April 26, 2018 12:00am May 26, 2018 8:30amtake 1 tablet by mouth once dailyAmiodarone 400 mg one tab orally once a day Active amLODIPine 5 mg oral tablet (20 sources)Dihydropyridine Calcium Channel BlockerStart: 03-23-2024 End: 87-56-6955oqmh 1 tablet by mouth once dailyAmlodipine 5 mg tablet Discontinued 5 MG PO Daily March 23, 2024 12:00am June 22, 2024 12:47pmtake 1 tablet by mouth every twenty-four hoursamLODIPine Besylate 5 MG 1 tablet Orally Once a day ActiveAspir-81 81 MG (6 sources)take 1 tablet by mouth once dailyAspir-81 81 MG 1 tablet Orally Once a day Not-Takingaspirin 81 mg delayed release oral tablet (20 sources)Platelet Aggregation Inhibitor, Nonsteroidal Anti-inflammatory Drug Start: 11-26-2018 End: 36-16-8556fsnc 1 tablet by mouth once dailyAspirin 81 mg Tablet,Delayed Release (Dr/Ec) Discontinued 81 MG PO Daily November 26, 2018 1:00am August 24, 2022 7:31amStart: 04-26-2018 End: 35-49-3403kjjq 1 tablet by mouth once dailyAspirin 81 mg Tablet,Chewable Discontinued 81 MG PO Daily April 26, 2018 12:00am May 26, 2018 8:31am citalopram 20 mg oral tablet (20 sources)Serotonin Reuptake InhibitorStart: 03-30-2024 End: 65-02-3883vfye 1 tablet by mouth once daily at bedtimeCitalopram 20 mg tablet Discontinued 0 .ROUTE .COMPLEX 90 November 18, 2024 9:15am November 30, 2024 1:51pm TAKE 1 TABLET BY MOUTH AT BEDTIME EVERY nightStart: 11-26-2018 End: 38-73-7572pfhx 1 tablet by mouth once daily at bedtimeCitalopram 20 mg Tablet Discontinued 20 MG PO Daily November 26, 2018 1:00am March 30, 2024 1:01pm At HSStart: 04-26-2018 End: 13-77-1086safi 1 tablet by mouth once dailyCitalopram 20 mg Tablet Discontinued 20 MG PO Daily April 26, 2018 12:00am May 26, 2018 8:31am clindamycin 300 mg oral capsule (10 sources)Lincosamide AntibacterialStart: 07-02-2022 End: 86-46-1833wabt 2 capsules by mouth three times dailyClindamycin Hcl 300 mg capsule Discontinued 600 MG PO Three times daily 10 22July 02, 2022 12:00am August 24, 2022 7:31amStart: 07-02-2022 End: 75-90-3466ygxr 600 mg by mouth three times dailyClindamycin Hcl Discontinued 600 MG PO Three times daily 12 July 02, 2022 12:00am August 24, 2022 7:31amclopidogrel 75 mg oral tablet (10 sources)P2Y12 Platelet InhibitorStart: 04-26-2018 End: 99-03-1106aanl 1 tablet by mouth once dailyClopidogrel 75 mg Tablet Discontinued 75 MG PO Daily April 26, 2018 12:00am May 26, 2018 8:31amdocusate sodium 100 mg oral capsule (8 sources)Start: 05-14-2023 End: 44-61-2156fcqq 1 capsule by mouth once dailyDocusate Sodium (Colace) 100 mg Capsule Discontinued 100 MG PO Daily May 14, 2023 12:00am March 23, 2024 4:34pmdoxycycline hyclate 100 mg oral capsule (8 sources)Tetracycline-class DrugStart: 03-05-2025 End: 50-47-2159goae 1 capsule by mouth twice dailyDoxycycline Hyclate 100 mg capsule Discontinued 100 MG PO Twice daily 14 March 05, 2025 12:00amJuly 2024 3:05pmStart: 01-16-2024 End: 17-12-7961kqwm 1 capsule by mouth twice dailyDoxycycline Hyclate 100 mg capsule Discontinued 100 MG PO Twice daily 03 06January 16, 2024 1:00am March 23, 2024 4:34pmergocalciferol 1.25 mg oral capsule (7 sources)Provitamin D2 CompoundStart: 05-16-2023 End: 34-12-5892kbvo 1 capsule by mouth every week, then take 1 capsule by mouth every monthErgocalciferol (Vitamin D2) 1,250 mcg (50,000 unit) capsule Discontinued 87292 UNIT PO As Directed May 16, 2023 12:00am March 23, 2024 4:34pm take one cap every week for 8 weeks, then one cap every months after that.fluticasone propionate 0.05 mg/actuat metered dose nasal spray (20 sources)CorticosteroidStart: 11-26-2018 End: 61-35-6180Kkolyshcrks Propionate 50 mcg/actuation Thomas,Suspension Discontinued 1 SPRAY INTRANASAL Daily November 26, 2018 1:00am August 11, 2021 1:14pmStart: 04-26-2018 End: 05-48-6462Teibwcowywy Propionate 50 mcg/actuation Thomas,Suspension Discontinued 1 SPRAY INTRANASAL Daily 2017 12:00am May 26, 2018 8:31amfurosemide 40 mg oral tablet (10 sources)Loop DiureticStart: 05-26-2018 End: 87-80-2944amfi 1 tablet by mouth once dailyFurosemide 40 mg Tablet Discontinued 40 MG PO Daily May 26, 2018 12:00am November 26, 2018 3:49pm glimepiride 1 mg oral tablet (10 sources)SulfonylureaStart: 04-26-2018 End: 11-99-8464tunu 0.5 mg by mouth once daily in the morningGlimepiride 1 mg Tablet Discontinued 0.5 MG PO Every morning April 26, 2018 12:00am May 26, 2018 8:31amStart: 04-26-2018 End: 75-65-0747wpyd 0.5 mg by mouth once daily in the morningGlimepiride Discontinued 0.5 MG PO Every morning April 26, 2018 12:00am May 26, 2018 8:31am3 ml insulin glargine 100 unt/ml pen injector (15 sources)Insulin AnalogStart: 34-46-6588vubnbv 20 [IU] by subcutaneous injection once daily at bedtimeLantus U-100 Insulin 100 unit/mL injection INJECT 20 UNITS SUBCUTANEOUS EVERY NIGHT AT BEDTIME 06/22/2024 ActiveStart: 03-26-2024 End: 63-48-6924jkhesf 10 [IU] by subcutaneous injection once daily in the eveningInsulin Glargine (Lantus Solostar U-100 Insulin) 100 unit/mL (3 mL) insulin pen Discontinued 10 UNIT SUBCUT Every evening 02 17January 03, 2025 9:57am January 09, 2025 10:37am Increase Lantus 2u every 3 days until FBS ketoconazole 20 mg/ml topical cream (20 sources)Azole AntifungalStart: 06-18-2024 End: 13-19-8981Yzvgpxkfkvhc 2 % cream Discontinued 1 APPLIC TOPICAL Twice daily June 18, 2024 12:00am June 27, 2024 5:04pmStart: 08-24-2022 End: 27-02-0035Akjyfrxswnjx 2 % Cream Discontinued 1 APPLIC TOPICAL Twice daily August 24, 2022 12:00am May 14, 2023 11:16pmKetoconazole 2 % 1 application Externally Once a day Not-TakingKetoconazole 2 % External Cream APPLY A THIN LAYER TO AFFECTED AREA(S) TWICE DAILY. as needed Quantity: 0 Refills: 0 Ordered: 15-Jun-2022 DO ActiveKetoconazole 2 % External Cream APPLY A THIN LAYER TO AFFECTED AREA(S) TWICE DAILY. Quantity: 0 Refills: 0 Ordered: 07-Sep-2021 DO Activelidocaine 0.05 mg/mg medicated patch (8 sources)Antiarrhythmic, Amide Local AnestheticStart: 05-14-2023 End: 81-02-4377sgwft 1 dose topically once dailyLidocaine 5 % Adhesive Patch,Medicated Discontinued 1 PATCH TOPICAL Daily May 14, 2023 12:00am March 23, 2024 4:34pm leave on most painful area for up to 12 hrsmetFORMIN hydrochloride 500 mg oral tablet (20 sources)BiguanideStart: 02-22-2023 End: 16-11-1590fviw 1 tablet by mouth once daily at bedtimeMetformin 500 mg tablet Discontinued 500 MG PO Daily May 14, 2023 12:00am March 26, 2024 3:05pm Takes at HSStart: 05-26-2018 End: 14-21-1454qzoq 1 tablet by mouth once dailyMetformin 500 mg Tablet Discontinued 1 TAB PO Daily May 26, 2018 12:00am November 26, 2018 3:49pmMulti Vitamin Oral Tablet (8 sources)take 1 tablet by mouth once dailyMulti Vitamin Oral Tablet TAKE 1 TABLET DAILY. Quantity: 0 Refills: 0 Ordered: 07-Sep-2021 DO Activenitroglycerin 0.4 mg sublingual tablet (20 sources)Nitrate VasodilatorStart: 06-18-2024 End: 04-65-3645Qfdsnnnvgbhsc 0.4 mg tablet, sublingual Discontinued 0.4 MG SUBLINGUAL every 5 to 15 minutes as needed for chest pain June 18, 2024 12:00am June 22, 2024 12:47pm do not exceed 3 doses per episodeStart: 11-26-2018 End: 48-37-8319Vblpdrvyzpbod 0.4 mg Tablet, Sublingual Discontinued 0.4 MG SUBLINGUAL every 5 to 15 minutes as needed for Chest Pain November 26, 2018 1:00am May 14, 2023 11:18pmStart: 04-26-2018 End: 87-76-3025Jmnatbkxnyali (Nitrostat) 0.4 mg Tablet, Sublingual Discontinued 0.4 MG SUBLINGUAL every 5 to 15 minutes as needed for Chest Pain April 26, 2018 12:00am May 26, 2018 8:31amNitroglycerin 0.4 MG as directed Sublingual Active polyethylene glycol 3350 77744 mg powder for oral solution (4 sources)Osmotic LaxativeStart: 06-22-2024 End: 32-04-3185Iccyntrfnmyv Glycol 3350 (Healthylax) 17 gram Powder In Packet Discontinued 17 GM PO Daily 0 2023 12:00am August 21, 2024 9:55am Potassium (10 sources)Start: 05-26-2018 End: 33-72-9469Igrhczftm 99 mg Tablet Discontinued May 26, 2018 12:00am August 11, 2021 1:14pmStart: 05-26-2018 End: 56-84-3849Aevfniiga 99 mg Tablet Discontinued TABLET May 26, 2018 12:00am August 11, 2021 1:14pmStart: 05-26-2018 End: 71-28-4954Lwrqgwdob Discontinued TABLET May 26, 2018 12:00am August 11, 2021 1:14pmpotassium bicarbonate 20 meq effervescent oral tablet (20 sources)Start: 06-18-2024 End: 91-70-0909Wpzgdpcum Bicarb-Citric Acid (Effer-K) 20 mEq tablet, effervescent Discontinued 20 MEQ PO Daily June 18, 2024 12:00am June 22, 2024 12:47pmStart: 07-02-2022 End: 23-32-7965Cpgsvjjgr Bicarbonate Discontinued 25 EACH PO 2 times daily July 02, 2022 12:00am August 24, 2022 7:31amStart: 03-00-6335Qtgbqhkjq Bicarbonate Active 25 EACH PO 2 times daily July 02, 2022 12:00amStart: 08-11-2021 End: 31-64-1330Aylnnwdhy Bicarb-Citric Acid (Effer-K) 20 mEq Tablet, Effervescent Discontinued 25 MEQ PO Twice daily August 11, 2021 12:00am March 23, 2024 4:34pmStart: 08-11-2021 End: 81-69-1715Wrnxjrzsw Bicarb-Citric Acid (Effer-K) 20 mEq tablet, effervescent Discontinued 20 MEQ PO Twice daily August 24, 2022 12:00am May 14, 2023 11:16pmtake 1 tablet by mouth twice dailypotassium bicarbonate (K- Lyte) 25 mEq effervescent tablet Take 1 tablet (25 mEq) by mouth 2 times aday. ActiveEffer-K 25 MEQ Oral Tablet Effervescent TAKE DIRECTED. Quantity: 0 Refills: 0 Ordered: 07-Sep-2021 DO ActivePotassium Bicarbonate 50 mEq Tablet, Effervescent (2 sources)Start: 07-02-2022 End: 75-33-0087Fdatxhovd Bicarbonate 50 mEq Tablet, Effervescent Discontinued 25 EACH PO 2 times daily July 02, 2022 12:00am August 24, 2022 7:31am potassium citrate 10 meq extended release oral tablet (16 sources)Start: 04-26-2018 End: 06-63-9333ayxx 2 tablets by mouth once dailyPotassium Citrate 10 mEq (1,080 mg) Tablet Extended Release Discontinued 2 TAB PO Daily April 26, 2018 12:00am August 11, 2021 1:14pmPotassium Citrate - 6000 Not-Takingpsyllium 3400 mg powder for oral suspension (4 sources)Start: 06-22-2024 End: 75-54-6050Pyvjceoh Husk (Metamucil Fiber Singles) 3.4 gram Powder In Packet Discontinued 1 PACKET PO Daily 0 June 22, 2024 12:00am August 21, 2024 9:55amSemaglutide (7 sources)Start: 03-23-2024 End: 37-36-7210Vlxoaoovzhe (Ozempic) 0.25 mg or 0.5 mg (2 mg/3 mL) pen injector Discontinued 0.25 MG SUBCUT every week March 23, 2024 12:00am March 26, 2024 3:05pmsemaglutide 1.2 mg/0.33 mL kit (2 sources)Start: 06-20-2024 End: 75-45-1382rkkzfcyzhnt 1.2 mg/0.33 mL kit Discontinued 1.2 MG SUBCUT WE@0900 June 20, 2024 12:00am August 29, 2024 11:05am please verify dose with compound dose from pharmacy. patient due for dose today 06/20/24sotalol hydrochloride 80 mg oral tablet (10 sources)AntiarrhythmicStart: 05-26-2018 End: 59-20-6023Fpauipf 80 mg Tablet Discontinued 80 MG As Directed May 26, 2018 12:00am November 26, 2018 3:50pmStart: 05-26-2018 End: 80-17-4314Kvidncx Discontinued 80 MG TABLET As Directed May 26, 2018 12:00am November 26, 2018 3:50pmtamsulosin hydrochloride 0.4 mg oral capsule (20 sources)alpha-Adrenergic BlockerStart: 11-26-2018 End: 26-47-6620bwme 1 capsule by mouth once dailyTamsulosin 0.4 mg Capsule Discontinued 0.4 MG PO Daily November 26, 2018 1:00am August 24, 2022 7:31am Start: 04-26-2018 End: 12-33-4224hrtb 1 capsule by mouth twice dailyTamsulosin 0.4 mg Capsule,Extended Release 24hr Discontinued 0.4 MG PO Twice daily April 26, 2018 12:00am May 26, 2018 8:31amtraMADol hydrochloride 50 mg oral tablet (8 sources)Opioid AgonistStart: 05-14-2023 End: 56-55-0572dsbk 1 tablet by mouth every six hours as needed for painTramadol 50 mg Tablet Discontinued 50 MG PO Q6H as needed for Pain May 14, 2023 12:00am March 4:34pmtriamcinolone acetonide 40 mg/ml injectable suspension (20 sources)CorticosteroidStart: 54-25-1391Dzvupzi-40 Jun, 60 mgStart: 08-24-2022 End: 32-24-6186Iaxxzflemnkbp Acetonide 0.025 % cream Discontinued 1 APPLIC TOPICAL Daily August 24, 2022 12:00amJun2022 11:16pmStart: 11-26-2018 End: 89-46-3223Bwuowhwwtmkgr Acetonide 0.1 % Cream Discontinued November 26, 2018 1:00am August 11, 2021 1:13pmStart: 11-26-2018 End: 04-95-2540Amjrtjswenvat Acetonide Discontinued November 26, 2018 1:00am August 11, 2021 1:13pmStart: 04-26-2018 End: 32-12-9668Ccpeuemskyhqx Acetonide 0.1 % Cream Discontinued 1 APPLIC TOPICAL As Directed April 26, 2018 12:00am May 26, 2018 8:31amStart: 04-26-2018 End: 75-88-5447Sqhbkizwoqrip Acetonide Discontinued 1 APPLIC TOPICAL As Directed April 26, 2018 12:00am May 26, 2018 8:31amTriamcinolone Acetonide OINT APPLY TO AFFECTED AREA TWICE DAILY DIRECTED. Quantity: 0 Refills: 0Ordered: 07-Sep-2021 DO Activewarfarin sodium 4 mg oral tablet (20 sources)Vitamin K AntagonistStart: 05-14-2023 End: 31-39-2406defb 1 tablet by mouth once dailyWarfarin 4 mg tablet Discontinued 4 MG PO Daily March 23, 2024 12:00am January 07, 2025 1:43pm Start: 05-14-2023 End: 55-14-0723Pzhvydmu 6 mg tablet Discontinued 6 MG PO WESA@1700 May 14, 2023 12:00am March 23, 2024 4:35pm WED AND SATStart: 04-26-2018 End: 64-45-5828Xzqiiuak 2 mg Tablet Discontinued 4 MG PO As Directed April 26, 2018 12:00am May 14, 2023 11:11pmStart: 04-26-2018 End: 90-12-6094Fvwfxhms Discontinued 4 MG PO As Directed April 26, 2018 12:00am May 14, 2023 11:11pmWarfarin Sodium 4 MG Oral Tablet as directed by [place] [facility] Quantity: 0 Refills: 0 Ordered: 07-Sep-2021 DO Active Problems Active Problems Problem ClassificationProblemDateDocumented DateEpisodic/ChronicAcute bronchitis (16 sources)Acute bronchitis; Translations: [Acute bronchitis due to other specified organisms]Onset: 50-53-9951LkvjyukgVeaaqhh disorders (20 sources)Generalized anxiety disorder; Translations: [Generalized anxiety disorder]ChronicBacterial infection; unspecified site (8 sources)Bacterial infectious disease; Translations: [Other specified bacterial agents as the cause of diseases classified elsewhere]EpisodicCalculus of urinary tract (20 sources)Calculus of kidney; Translations: [Kidney stone]Onset: 10-28-2022 EpisodicCardiac dysrhythmias (20 sources)Atrial flutter; Translations: [Atrial flutter]Onset: 05-30-2017 00-81-9754SqrypmtGqamdkb on above:Problem List clean-up per request of Phys. EHR CmteChronic kidney disease (20 sources)Chronic kidney disease stage 3A ; Translations: [Stage 3a chronic kidney disease]Onset: 716679-03-6406IiiupywVuejyddwbg disorders (20 sources)Complete atrioventricular block; Translations: [Atrioventricular block, complete]Onset: 92-66-0637GwywibuSyjnels on above:Problem List clean-up per request of Phys. EHR CmteCongestive heart failure; nonhypertensive (2 sources)Acute on chronic diastolic heart failure; Translations: [Acute on chronic diastolic (congestive) heart failure]ChronicCoronary atherosclerosis and other heart disease (20 sources)Coronary atherosclerosis; Translations: [Coronary atherosclerosis of [place] coronary artery]Onset: 97-62-9878DncatdaGyoxkwp on above:PCI/stent Lcx - 2018Diabetes mellitus with complications (20 sources)Type 2 diabetes mellitus; Translations: [Type 2 diabetes mellitus with hyperglycemia]Onset: 84-67-3253CrqlzhfNxjqgrms mellitus without complication (20 sources)Diabetes mellitus; Translations: [Diabetes mellitus without mention of complication, type II or unspecified type, not stated as uncontrolled]Onset: 33-58-4550UxdqnsqIvhwqduix of lipid metabolism (20 sources)Hyperlipidemia; Translations: [Other and unspecified hyperlipidemia] Onset: 63-65-2442ZgxfthcB Codes: Fall (20 sources)Fall; Translations: [Unspecified fall, initial encounter]03-07-2022 EpisodicComment on above:Problem List clean-up per request of Phys. EHR Cmte Essential hypertension (20 sources)Benign essential hypertension; Translations: [Benign essential hypertension]Onset: 27-55-3877QohhgbpNablduatsuz of prostate (8 sources)Lower urinary tract symptoms due to benign prostatic hypertrophy; Translations: [Benign prostatic hyperplasia with lower urinary tract symptoms] ChronicHypertension with complications and secondary hypertension (20 sources)Chronic kidney disease due to hypertension; Translations: [Hypertensive chronic kidney disease withstage 1 through stage 4 chronic kidney disease, or unspecified chronic kidney disease]Onset: 05-89-6892Dxaqmoh Immunizations and screening for infectious disease (8 sources)Vaccination given; Translations: [Encounter for immunization]Episodic Intestinal infection (5 sources)Viral gastroenteritis; Translations: [Viral intestinal infection, unspecified]Onset: 679399-28-1129DuakmtneFeilzeogqtio injury (17 sources)Concussion injury of body structure; Translations: [Concussion] Onset: 912306-63-4152QckkipvkOvmuise on above:Problem List clean-up per request of Phys. 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 EHR CmteOpen wounds of head; neck; and trunk (20 sources)Laceration of right eyebrow; Translations: [Laceration without foreign body of right eyelid and periocular area, initial encounter]Onset: 430495-14-2984MtgazlakGwrkksk on above:Problem List clean-up per request of Phys. EHR CmteOsteoarthritis (20 sources)Osteoarthritis of knee; Translations: [Unilateral primary osteoarthritis, left knee]ChronicOther aftercare (12 sources)Drug therapy finding; Translations: [Long-term (current) use of other medications]EpisodicOther aftercare (5 sources)Encounter for therapeutic drug level monitoring; Translations: [ENC THERAPEUTC DRUG LEVL MONITORING]Onset: 13-93-6094HgielncgTpygt aftercare (2 sources)skilled nursing (current) use of anticoagulants; Translations: [WIRE SPINNER CURRNT USE ANTICOAGULANTS]Onset: 16-73-2795QxpjilslFlqyd aftercare (7 sources)Long-term current use of anticoagulant; Translations: [skilled nursing (current) use of anticoagulants]EpisodicOther aftercare (8 sources)Long-term current use of drug therapy; Translations: [Other terminal gauger (current) drug therapy]EpisodicOther circulatory disease (4 sources)Iatrogenic hypotension; Translations: [Other hypotension]06-22-2024 EpisodicOther circulatory disease (4 sources)Orthostatic hypotension; Translations: [Orthostatic hypotension] 29-82-1916GvxemavuYzulg connective tissue disease (18 sources)History of total knee arthroplasty; Translations: [Presence of artificial knee joint, bilateral]ChronicOther connective tissue disease (6 sources)Disorder of musculoskeletal system; Translations: [Other symptoms and signs involving the musculoskeletal system]EpisodicOther connective tissue disease (2 sources)Other symptoms and signs involving the musculoskeletal system; Translations: [Other symptoms and signs involving the musculoskeletal system] EpisodicOther diseases of veins and lymphatics (20 sources)Peripheral venous insufficiency; Translations: [Venous insufficiency (chronic) (peripheral)]EpisodicOther diseases of veins and lymphatics (4 sources)Venous insufficiency (chronic) (peripheral)EpisodicOther fractures (4 sources)Multiple fractures of ribs, left side, subsequent encounter for fracture with routine healing; Translations: [Closed fracture of multiple ribs of left side with routine healing, subsequent encounter]EpisodicOther fractures (7 sources)Closed fracture of multiple left ribs; Translations: [Multiple fractures of ribs, left side, subsequent encounter for fracture with routine healing]EpisodicOther fractures (7 sources)Fracture of right rib; Translations: [Fracture of one rib, right side, initial encounter for closedfracture]70-63-1987OhpqnbcmMuswlia on above: Problem List clean-up per request of Phys. EHR CmteOther injuries and conditions due to external causes (10 sources)Closed injury of head; Translations: [Unspecified injury of head, initial encounter]19-89-1329ExnjwryeQuejcfi on above:Problem List clean-up per request of Phys. EHR CmteOther injuries and conditions due to external causes (12 sources)Injury of head; Translations: [Unspecified injury of head, initial encounter]Onset: 385740-14-8341AajporxyXdvtvpt on above:Problem List clean-up per request of Phys. EHR CmteOther injuries and conditions due to external causes (1 source)Unspecified injury of head, initial encounter; Translations: [Head injury, unspecified]99-50-7682LnoyvhunDsaiq injuries and conditions due to external causes (7 sources)History of fall; Translations: [History of falling]EpisodicOther injuries and conditions due to external causes (1 source)History of falling; Translations: [History of falling]EpisodicOther injuries and conditions due to external causes (1 source)Other specified injuries of thorax, initial encounter; Translations: [Contusion of rib on right side]24-44-6090LpeqjvagSmgnadm on above:Problem List clean-up per request of Phys. EHR CmteOther lower respiratory disease (19 sources)Dyspnea on exertion; Translations: [Shortness of breath]Onset: 209345-03-5170LvrhqpsuYxyes lower respiratory disease (8 sources)Dyspnea; Translations: [Other forms of dyspnea]EpisodicOther male genital disorders (3 sources)Impotence of organic origin; Translations: [Male erectile dysfunction, unspecified]ChronicOther male genital disorders (5 sources)Male erectile dysfunction, unspecified; Translations: [Erectile dysfunction (disorder)]ChronicOther nervous system disorders (16 sources)Chronic pain; Translations: [Other chronic pain]ChronicOther nervous system disorders (2 sources)Other chronic pain; Translations: [Other chronic pain]ChronicOther nervous system disorders (6 sources)Abnormal gait; Translations: [Unsteadiness on feet]EpisodicOther nervous system disorders (2 sources)Unsteadiness on feet; Translations: [Unsteadiness on feet]Episodic Other non-traumatic joint disorders (17 sources)Arthralgia of the pelvic region and thigh; Translations: [Pain in left hip]EpisodicOther non-traumatic joint disorders (1 source)Pain in left hip; Translations: [Hip pain, left]EpisodicOther nutritional; endocrine; and metabolic disorders (20 sources)Body mass index 40+ - severely obese; Translations: [Body Mass Index 50.0-59.9, adult]Onset: 279695-52-9354UtqecbcVvdka nutritional; endocrine; and metabolic disorders (13 sources)Morbid obesity; Translations: [Morbid obesity]ChronicOther nutritional; endocrine; and metabolic disorders (3 sources)Morbid (severe) obesity due to excess calories; Translations: [Morbid (severe) obesity due to excess calories]ChronicOther nutritional; endocrine; and metabolic disorders (3 sources)Body mass index (BMI) 50.0-59.9, adult; Translations: [Body mass index (BMI) 50.0-59.9, adult (Multi)]Onset: 65-73-4859UtuubcdWjgqk nutritional; endocrine; and metabolic disorders (2 sources)Body mass index (BMI) 45.0-49.9, adult; Translations: [Body mass index (BMI) 45.0-49.9, adult (Multi)]Onset: 15-82-9372VkkdrxkLfdop nutritional; endocrine; and metabolic disorders (8 sources)Hyperuricemia 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 inflammatory arthritis and tophaceous disease; Translations: [Hyperuricemia 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 inflammatory arthritis and tophaceous disease]EpisodicOther screening for suspected conditions (not mental disorders or infectious disease) (20 sources)Electrocardiogram abnormal; Translations: [Abnormal electrocardiogram [ECG] [EKG]]Onset: 41-30-9218CvyhvrijGnjdsjw on above:PSA: 12.034Problem List clean-up per request of Phys. EHR CmteOther skin disorders (8 sources)Vesicular eczema of hands and/or feet; Translations: [Dyshidrosis [pompholyx]]EpisodicOther upper respiratory disease (16 sources)Allergic rhinitis due to pollen; Translations: [Allergic rhinitis due to pollen]ChronicOther upper respiratory disease (7 sources)Seasonal allergic rhinitis; Translations: [Other seasonal allergic rhinitis]Onset: 20-80-2979DwtydesNdyem upper respiratory disease (2 sources)Allergic rhinitis due to pollenChronicOther upper respiratory disease (1 source)Other seasonal allergic rhinitis; Translations: [Other seasonal allergic rhinitis]Onset: 78-81-8740GkibposShexgrublu and visceral atherosclerosis (8 sources)Atherosclerosis of [place] arteries of the extremities; Translations: [Unspecified atherosclerosis of [place] arteries of extremities, bilateral legs] ChronicResidual codes; unclassified (20 sources)Obstructive sleep apnea syndrome; Translations: [Obstructive sleep apnea (adult) (pediatric)]Onset: 578304-10-4180BnxhdhbGecsogaq codes; unclassified (20 sources)Obstructive sleep apnea (adult) (pediatric); Translations: [Obstructive sleep apnea (adult)(pediatric)]Onset: 23-16-2665NfvvvyjMkiwcjgl codes; unclassified (1 source)Swelling - edema - symptom; Translations: [Edema]EpisodicResidual codes; unclassified (8 sources)Other specified personal risk factors, not elsewhere classified; Translations: [Personal risk factor]EpisodicSpondylosis; intervertebral disc disorders; other back problems (19 sources)Lumbosacral spondylosis without myelopathy; Translations: [Other spondylosis with radiculopathy, lumbar region]71-07-8392ZrtzsrhNykshkrfeoc injury; contusion (20 sources)Contusion of rib; Translations: [Contusion of right front wall of thorax, initial encounter]Onset: 05-03-2019 Resolved: 297277-47-9339LvrinxusGubocjt on above:Problem List clean-up per request of Phys. EHR CmteSyncope (20 sources)Syncope; Translations: [Syncope and collapse]Onset: 10-06-2023 83-61-2093RdenrlgkJlrlwhh on above:Problem List clean-up per request of Phys. EHR CmteUnclassified (10 sources)Permanent atrial fibrillation; Translations: [Permanent atrial fibrillation]Onset: 15-54-5377Meofezmxjijx (5 sources)Chronic atrial fibrillation, unspecified; Translations: [CHRONIC ATRIAL FIBRILLATION UNSPEC]Onset: 61-02-3098Kuszi infection (8 sources)Viral disease; Translations: [Viral infection, unspecified]06-18-2024 EpisodicViral infection (8 sources)Disease caused by 2019-nCoV; Translations: [COVID-19] Past or Other Problems Problem ClassificationProblemDateDocumented DateEpisodic/ChronicAllergic reactions (8 sources)Allergic contact dermatitis due to plants, except food; Translations: [Allergic contact dermatitis due to plants, except food]Onset: 09-20-2018 EpisodicChronic kidney disease (12 sources)Chronic kidney disease; Translations: [CHRONIC KIDNEY DISEASE STAGE 3A]Onset: 22-92-9517Xypqgjbgqeppo symptoms and ill-defined conditions (16 sources)Dysuria; Translations: [Dysuria]Onset: 21-34-8946Fpxccbdn Inflammatory conditions of male genital organs (8 sources)Acute prostatitis; Translations: [Acute prostatitis]Onset: 06-27-2017 EpisodicJoint disorders and dislocations; trauma-related (8 sources)Dislocation of proximal interphalangeal joint of left little finger, subsequent encounter; Translations: [Dislocation of proximal interphalangeal joint of left little finger, subsequent encounter]Onset: 44-31-4366Evmcsmnl Malaise and fatigue (1 source)Weakness; Translations: [Weakness]Onset: 73-50-3372BnuyiwkhDqrnuamztjq chest pain (8 sources)Chest pain; Translations: [Chest pain, unspecified]Onset: 05-06-2017 EpisodicOther circulatory disease (1 source)Orthostatic hypotension; Translations: [Orthostatic hypotension]Onset: 62-42-6946FdxqietoYvpqp circulatory disease (1 source)Other hypotension; Translations: [Other hypotension]Onset: 06-19-2024 EpisodicOther connective tissue disease (8 sources)Pain in limb; Translations: [Pain in left finger(s)] Resolved: 98-84-5363SpjusmybBdtyr diseases of veins and lymphatics (4 sources)Chronic venous hypertension (idiopathic) with ulcer of unspecified lower extremity; Translations: [Chronic venous hypertension (idiopathic) with ulcer of unspecified lower extremity] Resolved: 82-24-9555XnhsbioKxtct diseases of veins and lymphatics (4 sources)Venous ulcer of lower extremity due to chronic peripheral venous hypertension; Translations: [Chronic venous hypertension (idiopathic) with ulcer of unspecified lower extremity] Resolved: 39-07-0533GgmaumoBaltv infections; including parasitic (16 sources)History of sepsis; Translations: [Personal history of other infectious and parasitic diseases]Onset: 070218-77-3157YsplyretWthqx lower respiratory disease (2 sources)Shortness of breath; Translations: [Shortness of breath]Onset: 91-44-5879FdicpwpiBegfe upper respiratory infections (8 sources)Acute sinusitis; Translations: [Acute sinusitis, unspecified]Onset: 62-44-3853SglzzfmqVobwvzwm codes; unclassified (8 sources)Edema; Translations: [Edema]Onset: 752542-96-6811Ctdctweg Screening and history of mental health and substance abuse codes (19 sources)Ex-smoker; Translations: [Personal history of tobacco use]Onset: 310042-26-5560OshyahkaCmjlrgo on above:QUIT 1996;Septicemia (except in labor) (8 sources)Other streptococcal sepsis; Translations: [Other streptococcal sepsis]Onset: 81-92-2250FdhiloecZjzj and subcutaneous tissue infections (16 sources)Cellulitis of left lower limb; Translations: [Cellulitis of left lower limb]Onset: 07-02-2019 Resolved: 46-20-9192OuhmhhlrMbgwlcghdqe; intervertebral disc disorders; other back problems (4 sources)Neck pain; Translations: [Cervicalgia]Onset: EpisodicUnclassified (4 sources)Onset: 10-07-2023 Resolved: Results Test NameValueInterpretationReference RangeFacilityAmbulatory Visit Summaryon 90-29-6533Yiiyjxnjgo Visit SummaryAmbulatory Visit Summary NIRMAL CHAIDEZ :1945 Visit Date:09/13/2025 Ambulatory Visit Instructions Your Diagnosis Urge incontinence BPH with urinary obstruction Kidney stones Chronic prostatitis Tests Performed US Renal -- Results Pending -- XR Abdomen 1 View -- Results Pending -- Please visit your patient portal for your results or contact your primary care physician. Your Care Team Attending Physician - Carlos Alberto GIBSON MD Primary Care Physician - MODESTO CHAVARRIA DO This Is Your Medications List potassium bicarbonate (Klor-Con/EF 25 mEq oral tablet, effervescent) Contact prescribing physician if questions or concerns allopurinol (allopurinol 300 mg Tab) cholecalciferol (Vitamin D3) citalopram (citalopram 20 mg Tab) cyanocobalamin (Vitamin B12) cyanocobalamin (cyanocobalamin 1000 mcg Tab) hydrochlorothiazide-lisinopril (hydrochlorothiazide-lisinopril 12.5 mg-10 mg Tab) insulin glargine (Lantus Solostar Pen 100 units/mL subcutaneous solution) nitroglycerin (nitroglycerin 0.4 mg sublingual Tab) pravastatin (pravastatin 40 mg Tab) torsemide (torsemide 10 mg Tab) warfarin Procedures Performed Transurethral resection of prostate (10/01/2021), Urodynamics (08/18/2021), Cystoscope (06/23/2021), ESWL - Extracorporeal shockwave lithotripsy for renal calculus (07/06/2018), Placement of stent incardiac conduit (05/21/2017), ESWL - Extracorporeal shockwave lithotripsy [...] of ureteric stent (06/10/2011), Arthroscopy of knee, Cardiac pacemaker, Laparoscopic repair of umbilical hernia. Discharge Vitals Temperature (Temporal Artery) 37 ???C Heart Rate (Peripheral) 68 Respiratory Rate 16 Blood Pressure 137/88 Height 167 cm Height 66 in Weight 132.7 kg Weight 292.553 lb BMI 47.58 What to do next Scheduled Follow-Up Appointments 2024 1:00 PM EST With: Where: Cardiovascular Services Tuesday2025 2:30 PM EDT With: Carlos Alberto GIBSON MD Where: [facility] [address] [place] [id number]- You Need to Schedule the Following Appointments Follow Up with Carlos Alberto GIBSON MD, URL When: Where: [address] [place] [address] Medications What How Much When Instructions Unchanged potassium bicarbonate (Klor-Con/ EF 25 mEq oral tablet, effervescent) 1 Tablets By [...] prescribing physician if questions or concerns Unchanged hydrochlorothiazide-lisinopril (hydrochlorothiazide-lisinopril 12.5 mg-10 mg Tab) 1 Tablets Contact prescribing physician if questions or concerns Unchanged insulin glargine (Lantus Solostar Pen 100 units/ mL subcutaneous solution) 5 Units Contact prescribing physician if questions or concerns [...] awareness Kidney stone Kidney stones Morbid obesity Morbid obes (more content not included)...[facility] Urology Office/Clinic Noteon [id number] Office/Clinic NoteUrology Office/Clinic Note Chief Complaint 1 year with KUB HPI Staff Pt is a 79 year old male here for a 1 year follow up with KUB Dx: BPH with obstruction, hx of kidney stones, chronic prostatitis. S/p TURP 10/01/21. PSA: 10/28/20 - 1.33 No longer checking PSA. S/p cysto 06/23/21. S/p urodynamics 08/18/21. S/p TURP 10/01/21 *Effer-K 20mEq bid (effervescent) IPSS score today is 11. Urgency more than half the time. Nocturia x2. Frequency less than half the time. Incomplete emptying, intermittency and weak stream less than 1 in 5x. Denies any pain or visible blood at any time. History of Present Illness Tests reviewed: reviewed KUB I have reviewed the previous health record information and history for this patient from Dr. Gibson. I have reviewed and verified the staff HPI to be accurate for this encounter. Review of Systems PHQ Score Initial [...] Physical Exam Vitals & Measurements T: 37 ???C(Temporal Artery) HR: 68(Peripheral) RR: 16 BP: 137/88 HT: 167 cm HT: 66 in WT: 132.7 kg WT: 292.553 lb BMI: 47.58 General Appearance: alert, no distress, well nourished, well developed male. Assessment/Plan Pt here with his today. 1. Urge incontinence (N39.41: Urge incontinence) Has to lino to bathroom when he gets the urge. Wears depends for protection. Had two accidents in the last month. thinks pt wakes at least 1x during the night to void. Advised pt's to continue close monitoring to see when leakage occurs. Pt does not think he delays urination. Recommended timed voids q2-3hr during waking hours whether the urge to void is present or not to prevent urgencyepisodes. Discussed indication for OAB meds and possible SEs if pt does not benefit from behavioralmodifications. -Timed voids during the day -Monitor for leakage 2. BPH with urinary obstruction (N40.1: Benign prostatic hyperplasia with lower urinary tract symptoms) PSA: 10/28/20 - 1.33 ~No longer checking PSA. S/p cysto 06/23/21. S/p urodynamics 08/18/21. S/p TURP 10/01/21. IPSS 11. Not taking any BPH meds. No issues with stream. Urgency is bothersome. See #1. -Timed voids 3. Kidney stones (N20.0: Calculus of kidney) Hx of multiple stone procedures. Latest ESWL 07/16/18. KUB 10/28/22 No calcifications in the kidneys or ureters. [facility] 04[place] [facility] [place] question of a tiny calcification overlying the inferior R kidney. There is however stool at this site. A punctate calcified stone at the lower pole on the L is also not excluded. KUB 09/09/25 [facility] - 6 mm RLP stone. Moderate colonic stool burden. Restarted Effer-K 20mEq bid (effervescent) at prior OV. Reviewed KUB results, has possible R renal stone that has increased in size. Discussed this is indeterminant given stool burden. Recommended ERIK to further evaluate. -Schedule ERIK. Will call pt with results. -F/u in 1 yr w/ KUB 4. Chronic prostatitis (N41.1: Chronic prostatitis) S/p TURP 10/01/21 showed chronic inflammation. Follow-up With When Contact Information ARTHUR OCONNELL, Carlos Alberto Bunn, URL [address] [place] [address] Additional Instructions: 1 yr w/ [facility] Patient Education Urinary Incontinence Janey Davila, personally scribed for Dr. Gibson on 09/13/2025 12:37:15. . Documentation recorded by the poonamibJaney rios, accurately reflects the services(s) I performed and decisions made by me. Authenticated by Dr. Gibson on 09/13/2025 12:39:45. Problem List/Past Medical History Ongoing Anticoagulated Atrial fibrillation BMI 40.0-44.9, adult BPH with urinary obstruction Chronic prostatitis Coronary artery disease Diabetes Former smoker Gout Gross hematuria History of kidney stones Hypertension Incontinence without sensory awareness Kidney stone Kidney stones Morbid obesity Morbid obesity with BMI of 45.0-49.9, adult Prostatitis Right nephrolithiasis Urge incontinence Urinary urgency Historical Atrial fibrillation Procedure/Surgical History Transurethral resection of prostate (10/01/2021), Urodynamics (08/18/2021), Cystoscope (06/23/2021), ESWL - Extracorporeal shockwave lithotripsy for renal calculus (07/06/2018), Placement of stent incardiac conduit (05/21/2017), ESWL - Extracorporeal shockwave lithotripsy for renal calculus (05/05/2017), ESWL - Extracorporeal shockwave lithotripsy for renal calculus (01/22/2016), ESWL - Extracorporeal shockw (more content not included)...[facility] CenterComment on above:Result Comment: Electronically Signed By: Carlos Alberto GIBSON MD\.br\Date and Time Signed: 09/13/25 12:39 EDT\.br\Electronically Co- Signed By: Janey Gilmore\.br\Date and Time Co-Signed: 09/13/25 12:37 EDTECG 12 [place] 99-89-3774Lizdcq fibrillation with controlled rate with nonspecific ST-T changesCPCity Hospital Work Phone: automated basophil %Ordered By: Stalin Miranda on 31-99-2180Gzqmbcctn/100 WBC (Bld)0.7 %Normal.[facility] Comment on above:Performed By: #### A1C WTH eA, PYFJ79BC, TSH3, PT, CBC, FUME18QJM, BMP, PTT #### [place] [address] USAAutomated basophil countOrdered By: Stalin Miranda on 97-60-5465Lghlpofkh (Bld) [#/Vol]0.1 10*3/uLNormal0.0-0.2FSt. John of God HospitalComment on above:Result Comment: PERFORMED BY: [place] [address] PATHOLOGIST BUILDING ATTENDANT CORAL GOLD M.D.Performed By: #### A1C WTH eA, MWIA87HF, TSH3, PT, CBC, [id number], BMP, PTT #### [facility] [address] [place] [address] USAAutomated blood monocyte countOrdered By: Stalin Erasmoor on 64-97-9000Nfaiacmdt (Bld) [#/Vol]0.7 10*3/uLNormal0.0-0.8[facility] HospitalComment on above:Performed By: #### A1C WTH eA, MSYX98MQ, TSH3, PT, CBC, XVVH19ZNR, BMP, PTT #### [facility] [address] [place] [address] USAAutomated eosinophil %Ordered By: Stalin Erasmoor on 52-06-6934Oxnqlvpwnge/100 WBC (Bld)2.0 %Normal.[facility] Comment on above:Performed By: #### A1C WTH eA, TARH42VQ, TSH3, PT, CBC, SLVY39YRM, BMP, PTT #### [facility] [address] [place] [id number] USAAutomated eosinophil countOrdered By: Stalin Gavikpor on 80-03-0291Gstktdsisxt (Bld) [#/Vol]0.2 10*3/uLNormal0.0-0.45[facility] HospitalComment on above:Performed By: #### A1C WTH eA, VDSF18AI, TSH3, PT, CBC, EJMC93SLQ, BMP, PTT #### [facility] [address] [place] [id number] USAAutomated monocyte %Ordered By: Stalinkiersten Zimmermanor on 15-19-9657Hwxlhsirv/100 WBC (Bld)6.4 %Normal.[facility] Comment on above:Performed By: #### A1C WTH eA, DIZF74NT, TSH3, PT, CBC, LVER58QFA, BMP, PTT #### [facility] [address] [place] [id number] USAAutomated neutrophil %Ordered By: Stalin Gavikpor on 56-65-3656Rtdpbatlgyl/100 WBC (Bld)73.9 %Normal.[facility] HospitalComment on above:Performed By: #### A1C WTH eA, ZRFB51LB, TSH3, PT, CBC, VYYT17WUN, BMP, PTT #### [place] [address] USABasic Metabolic Panelon 79-26-6341Bfyupyqxzj Clr Calc Fhfxpkka76.71NormNCH Healthcare System - Downtown Naples Physician GroupComment on above:Result Comment: PERFORMED BY: [place] [address] PATHOLOGIST BUILDING ATTENDANT CORAL GOLD M.D.Performed By: #### A1C WTH eA, IOSY67FH, TSH3, PT, CBC, OMBN16IPX, BMP, PTT #### [place] [address] USAGFR/1.73 sq M.predicted MDRD (S/P/Bld) [Vol rate/Area] mL/min/{1.73_m2}NormalThe [facility]ly [facility] Physician [facility] State HospitalComment on above:Performed By: #### A1C WTH eA, RGUM68JX, TSH3, PT, CBC, GCYJ45CWW, BMP, PTT #### [place] [address] USACalcium [Mass/volume] in Serum or PlasmaOrdered By: Stalin Miranda on 77-61-1448Fszzuvz [Mass/Vol]9.5 mg/dLNormal8.6-10.3 [facility] HospitalComment on above:Performed By: #### A1C WTH eA, MCKG26NL, TSH3, PT, CBC, RDQT00WXS, BMP, PTT #### [facility] [address] [place], [place] [id number] USACapillary blood glucose measurement by glucometer (mass/volume)Ordered By: Stalin Miranda on 01-04-4923Aytpqwf [Mass/Vol]143 mg/dLNormUniversity Hospitals Geauga Medical CenterComment on above:Random Glucose Reference Range is dependent on time and content of last meal. Glucose of more than 200 mg/dL in a nonstressed, ambulatory subject supports the diagnosis of Diabetes Mellitus.Result Comment: Random Glucose Reference Range is dependent on time and content of last meal. Glucose of more than 200 mg/dL in a nonstressed, ambulatory subject supports the diagnosis of Diabetes Mellitus. PERFORMED BY: [place] [id number] PATHOLOGIST BUILDING ATTENDANT CORAL GOLD M.D.Performed By: #### A1C WTH eA, YZSB19FQ, TSH3, PT, CBC, YFKV22HKI, BMP, PTT #### [facility] [address] [place], [place] [id number] USACarbon dioxide, total [Moles/volume] in Serum or Plasma Ordered By: Stalin Miranda on 58-44-3269FR0 [Moles/Vol]26.9 mmol/LNormal 21.0-31.0[facility] HospitalComment on above:Performed By: #### A1C WTH eA, YLWY52MX, TSH3, PT, CBC, DGLJ06ZWV, BMP, PTT #### [facility] [address] [place], [place] [address] USAChloride [Moles/volume] in Serum or PlasmaOrdered By: Stalin Miranda on 39-10-7066Fednjrdo [Moles/Vol]99 mmol/QLaepji76-867 [facility] HospitalComment on above:Performed By: #### A1C WTH eA, UDRN90FP, TSH3, PT, CBC, PGHR33UGU, BMP, PTT #### [facility] [address] [place] [address] USAComplete Blood Count Auto Diffon 59-50-9859Botb Corpuscular HGB Conc32.3 g/dLLow32.5-35.6The [facility] Physician GroupComment on above:Performed By: #### A1C WTH eA, JJCT82VQ, TSH3, PT, CBC, YYKE01FMQ, BMP, PTT #### [facility] [address] [place] [address] USANRBC%0.1 /100{WBC}Normal0-0.5The [facility] Physician Group Comment on above:Performed By: #### A1C WTH eA, UUSA58TG, TSH3, PT, CBC, RJRE62GMF, BMP, PTT #### [facility] [address] [place] [phone] USACreatinine [Mass/volume] in Serum or PlasmaOrdered By: Stalingarcia Miranda on 58-80-6406Hmevvxgrhm [Mass/Vol]0.92 mg/dLNormal0.70-1.30 [facility] HospitalComment on above:Performed By: #### A1C WTH eA, QLGQ17GX, TSH3, PT, CBC, HKUB78EQL, BMP, PTT #### [facility] [address] [place] [address] USAErythrocyte distribution width [Ratio] by Automated count Ordered By: Stalin Gavicecile on 18-47-6533Etfiyoxeulh distribution width (RBC) [Ratio]17.0 %High12.0-14.8[facility] HospitalComment on above:Performed By: #### A1C WTH eA, KGWX91PK, TSH3, PT, CBC, XJKG18NVT, BMP, PTT #### [facility] [address] [place], [place] [address] USAErythrocytes [#/volume] in Blood by Automated countOrdered By: Stalin Gaticacecile on 24-76-3486HXB (Bld) [#/Vol]4.77 10*6/uLNormal 3.90-5.60[facility] HospitalComment on above:Performed By: #### A1C WTH eA, LBEV08FB, TSH3, PT, CBC, NLMY54OBT, BMP, PTT #### [facility] [address] [place], [place] [address] USAGlucose Poct Glucometerson 23-56-2354Dmjmjim1Hsx6: Cleaned [facility] Physician GroupComment on above:Result Comment: PERFORMED BY: [place] [address] PATHOLOGIST BUILDING ATTENDANT CORAL GOLD M.D.Performed By: #### A1C WTH eA, FKMP49MF, TSH3, PT, CBC, MARK41QLN, BMP, PTT #### [facility] [address] [place] [address] USAGlucose [Mass/Vol]128 mg/dLColumbia Miami Heart Institute Physician GroupComment on above:Result Comment: Random Glucose Reference Range is dependent on time and content of last meal. Glucose of more than 200 mg/dL in a nonstressed, ambulatory subject supports the diagnosis of Diabetes Mellitus.Performed By: #### A1C WTH eA, BIXT63OI, TSH3, PT, CBC, GEXN43DOT, BMP, PTT #### [facility] [address] [place] [address] USAGlucose [Mass/volume] in Serum or PlasmaOrdered By: Stalin Miranda on 93-82-3515Lxapfkf [Mass/Vol]137 mg/tIUnrc65-777IisydzgioGood Samaritan HospitalComment on above:ADA recommended reference rangeRandom Glucose Reference Range is dependent on time and content of last meal. Glucose of more than 200 mg/dL in a nonstressed, ambulatory subject supports the diagnosisof Diabetes Mellitus.Result Comment: Random Glucose Reference Range is dependent on time and content of last meal. Glucose of more than 200 mg/dL in a nonstressed, ambulatory subject supports the diagnosis of Diabetes Mellitus. ADA recommended reference rangePerformed By: #### A1C WTH eA, YKLC60TP, TSH3, PT, CBC, ZVTM15TNY, BMP, PTT #### [facility] [address] [place] [address] USAHematocrit [Volume Fraction] of Blood by Automated count Ordered By: Stalin Miranda on 30-30-2564Hgcelluhoc (Bld) [Volume fraction] 40.8 %Smcuhp64.8-50.0[facility] HospitalComment on above:Performed By: #### A1C WTH eA, UVOG21KZ, TSH3, PT, CBC, TILP01XVB, BMP, PTT #### [facility] [address] [place] [address] USAHemoglobin [Mass/volume] in BloodOrdered By: Stalin Miranda on 20-31-0167Isvtebascd (Bld) [Mass/Vol]13.2 g/jATsurjb62.0-17.0 [facility] HospitalComment on above:Performed By: #### A1C WTH eA, KCZP11BZ, TSH3, PT, CBC, QGDY83PRS, BMP, PTT #### [facility] [address] [place] [address] USAINR in Platelet poor plasma by Coagulation assayOrdered By: Stalin Miranda on 27-95-3568RAD Coag (PPP) [Relative time]2.4 {INR} [facility] HospitalComment on above:INR Therapeutic Range A) Pre- and Peroperative OAT started two weeks before surgery. NOT HIP SURGERY: 1.5 - 2.5 HIP SURGERY: 2 - 3B) Primary and secondary prevention of venous THROMBOSIS: 2 - 3C) Active venous thrombosis, pulmonary embolismand prevention of recurrent venous thrombosis: 2 - 3D) Prevention of arterial thromboembolismincluding patients with mechanical heart valves: 3 - 4.5Result Comment: INR Therapeutic Range A) Pre- and [...] heart valves: 3 - 4.5 PERFORMED BY: [facility] [address] [facility] [place] [address] PATHOLOGIST BUILDING ATTENDANT CORAL GOLD M.D.Performed By: #### A1C WTH eA, NMLM14XF, TSH3, PT, CBC, TKXN90FTC, BMP, PTT #### [facility] [address] [place] [address] USALeukocytes [#/volume] corrected for nucleated erythrocytes in Blood by Automated counOrdered By: Stalin Miranda on 34-79-4447ZLZ corrected for nucl RBC Auto (Bld) [#/Vol]10.4 10*3/uL4.1-10.5FSt. John of God HospitalLeukocytes [#/volume] in Blood by Automated countOrdered By: Stalin Miranda on 18-60-5437RXD (Bld) [#/Vol]10.4 10*3/uLNormal4.1-10.5 [facility] HospitalComment on above:Performed By: #### A1C WTH eA, CUHL59RO, TSH3, PT, CBC, GZZY88OYZ, BMP, PTT #### [facility] [address] [place] [phone] USALymphocytes [#/volume] in Blood by Automated countOrdered By: Stalin Miranda on 01-56-0389Exmcvlpsjww (Bld) [#/Vol]1.8 10*3/uLNormal 1.00-4.8[facility] HospitalComment on above:Performed By: #### A1C WTH eA, MGME08OL, TSH3, PT, CBC, ASKN79CUL, BMP, PTT #### [facility] [address] [place] [phone] USALymphocytes/100 leukocytes in Blood by Automated count Ordered By: Stalin Miranda on 78-06-0485Wdjwjldsalq/100 WBC (Bld)17.0 % Normal.[facility] HospitalComment on above:Performed By: #### A1C WTH eA, UBHU36SB, TSH3, PT, CBC, SAFU60XFQ, BMP, PTT #### [place] [id number] [facility] [Entitic mass] by Automated countOrdered By: Stalin Miranda on 09-32-9681IMC (RBC) [Entitic mass]27.7 fcAifhsu43.5-35.2FSt. John of God HospitalComment on above:Performed By: #### A1C WTH eA, NMBQ05EO, TSH3, PT, CBC, TSBB24XID, BMP, PTT #### [facility] [address] [place] [address] [facility] Auto (RBC) [Mass/Vol]Ordered By: Stalin Miranda on 86-35-0525CNXG (RBC) [Mass/Vol]32.3 g/dLLow32.5-35.6FSt. John of God HospitalMCV [Entitic volume] by Automated countOrdered By: Stalin Miranda on 93-12-9066CRG (RBC) [Entitic vol]85.6 eFOlzjog35.5-101[facility]itan HospitalComment on above:Performed By: #### A1C WTH eA, EWMI79DG, TSH3, PT, CBC, KDTZ23JFL, BMP, PTT #### [facility] [address] [place] [phone] USANeutrophils [#/volume] in Blood by Automated countOrdered By: Stalin Miranda on 92-12-3933Pnitojqqecd (Bld) [#/Vol]7.7 10*3/uLNormal 1.8-7.7FSt. John of God HospitalComment on above:Performed By: #### A1C WTH eA, MRBI11MI, TSH3, PT, CBC, UBYI77AUZ, BMP, PTT #### [facility] [address] [place] [phone] USANo Panel InformationOrdered By: Stalin iMranda on 51-88-7370Pnvyetz Glucose CommentGlu2: cleaned [facility] HospitalEstimated GFR (CKD-EPI)> 60.0 mL/MinGood Samaritan Hospital Pharmacy Creatinine Clearance (Chem89.71[facility] Nucleated erythrocytes [Presence] in Blood by Automated countOrdered By: Stalin Miranda on 38-65-4197Intevcndh RBC Auto Ql (Bld)0.1 /100{WBC}0-0.5 [facility] Samaritan HospitalPlatelet mean volume [Entitic volume] in Blood by Automated countOrdered By: Stalin Miranda on 34-43-2948Dmxdsagg mean volume (Bld) [Entitic vol]7.9 fLNormal6.6-10.1FSt. John of God Hospital Comment on above:Performed By: #### A1C WTH eA, PFJW85ZP, TSH3, PT, CBC, OCBJ94ZBS, BMP, PTT #### [facility] [address] [place] [address] USAPlatelets [#/volume] in Blood by Automated countOrdered By: Stalin Miranda on 88-01-1296Zljfnzqer (Bld) [#/Vol]237 10*3/uLNormal 150-450[facility]aritan HospitalComment on above:Performed By: #### A1C WTH eA, IIJH82XJ, TSH3, PT, CBC, QNOK06IIM, BMP, PTT #### [facility] [address] [place] [address] USAPotassium [Moles/volume] in Serum or PlasmaOrdered By: Stalin Miranda on 74-74-0572Iqhpmocfv [Moles/Vol]4.1 mmol/LNormal3.5-5.1 [facility] HospitalComment on above:Performed By: #### A1C WTH eA, LARZ29EV, TSH3, PT, CBC, IVAE86VDX, BMP, PTT #### [facility] [address] [place] [address] USAProthrombin time (PT)Ordered By: Stalin Miranda on 38-62-6246WZ Coag (PPP) [Time]26.6 sHigh9.0-12.9[facility]itan HospitalComment on above:A hematocrit value greater than 55% may lead to inaccurate results in coagulation testing. Patientshaving hematocrit values >55% require a special collection tube for coagulation studies. Please contact the laboratory at [phone] for redraw instructions.Result Comment: A hematocrit value greater than 55% may lead to inaccurate results in coagulation testing. Patients having hematocrit values >55% require a special collection tube for coagulation studies. Please contact the laboratory at [phone] for redraw instructions.Performed By: #### A1C WTH eA, GVYT34ZH, TSH3, PT, CBC, UOWQ03VJH, BMP, PTT #### [facility] [address] [place] [address] USASerum or plasma anion gap determinationOrdered By: Stalin Miranda on 44-53-4167Hspsi gap [Moles/Vol]10.2 mmol/LNormal6.0-15.0 [facility] HospitalComment on above:Performed By: #### A1C WTH eA, DVFY71AP, TSH3, PT, CBC, QVXY62OBA, BMP, PTT #### [facility] [address] [place] [address] USASodium [Moles/volume] in Serum or PlasmaOrdered By: Stalin Miranda on 54-77-2877Njnuof [Moles/Vol]132 mmol/LJjh846-667FjrhxnimgGood Samaritan HospitalComment on above:Performed By: #### A1C WTH eA, YTEZ11ZH, TSH3, PT, CBC, QZVR87ULM, BMP, PTT #### [place] [phone] USAUrea nitrogen [Mass/volume] in Serum or PlasmaOrdered By: Stalin Miranda on 72-82-7508Gjkm nitrogen [Mass/Vol]26 mg/dLHigh7-25 [facility] HospitalComment on above:Performed By: #### A1C WTH eA, MGQM27FR, TSH3, PT, CBC, OFYO73YZV, BMP, PTT #### [place] [id number] USABasic Metabolic Panelon 69-18-7458Zjkuz gap [Moles/Vol]9.4 mmol/LNormal6.0-15.0The [facility] Physician GroupComment on above:Performed By: #### A1C WTH eA, GXDO35SS, TSH3, PT, CBC, RNON47JCV, BMP, PTT #### [facility] [address] [place] [phone] USACalcium [Mass/Vol]9.4 mg/dLNormal8.6-10.3The [facility] Physician GroupComment on above:Performed By: #### A1C WTH eA, ZFDI59UD, TSH3, PT, CBC, JMFM82EKX, BMP, PTT #### [place] [phone] USAChloride [Moles/Vol]100 mmol/FUjdpgc10-020Eby [facility] Physician GroupComment on above:Performed By: #### A1C WTH eA, XBKL28LP, TSH3, PT, CBC, ZSSM89LQM, BMP, PTT #### [place] [address] USACO2 [Moles/Vol]27.6 mmol/VQnojdr98.0-31.0The [facility] Physician GroupComment on above:Performed By: #### A1C WTH eA, BBPB40PT, TSH3, PT, CBC, QHYA68AJR, BMP, PTT #### [place] [address] USACreatinine [Mass/Vol]1.20 mg/dLNormal0.70-1.30The [facility] Physician GroupComment on above:Performed By: #### A1C WTH eA, ZGMA32HS, TSH3, PT, CBC, QOAF80SCL, BMP, PTT #### [place] [address] USACreatinine Clr Calc Wpcxepzs46.60NormalThe [facility]ly [facility] Physician GroupComment on above:Result Comment: PERFORMED BY: [place] [address] PATHOLOGIST BUILDING ATTENDANT CORAL GOLD M.D.Performed By: #### A1C WTH eA, WOMN58MI, TSH3, PT, CBC, CGBL32TTR, BMP, PTT #### [place] [address] USAGFR/1.73 sq M.predicted MDRD (S/P/Bld) [Vol rate/Area] mL/min/{1.73_m2}NormalThe [facility]ly [facility] Physician GroupComment on above:Performed By: #### A1C WTH eA, UFNQ80GH, TSH3, PT, CBC, LBLW11KHW, BMP, PTT #### [place] [address] USAGlucose [Mass/Vol]104 mg/qXEvmn67-881Dvk [facility] Physician GroupComment on above:Result Comment: Random Glucose Reference Range is dependent on time and content of last meal. Glucose of more than 200 mg/dL in a nonstressed, ambulatory subject supports the diagnosis of Diabetes Mellitus. ADA recommended reference rangePerformed By: #### A1C WTH eA, XMZC01ED, TSH3, PT, CBC, LZII86HXZ, BMP, PTT #### [place] [address] USAPotassium [Moles/Vol]4.0 mmol/LNormal3.5-5.1The [facility] Physician GroupComment on above:Performed By: #### A1C WTH eA, YCPQ24IA, TSH3, PT, CBC, LRSQ36RMQ, BMP, PTT #### [place] [address] USASodium [Moles/Vol]133 mmol/MCaq909-704Uxp [facility] Physician GroupComment on above:Performed By: #### A1C WTH eA, RUBS44BW, TSH3, PT, CBC, FMLX50EQB, BMP, PTT #### [place] [address] USAUrea nitrogen [Mass/Vol]31 mg/dLHigh7-25The [facility] Physician GroupComment on above:Performed By: #### A1C WTH eA, HLNF70BU, TSH3, PT, CBC, TXDH35TKQ, BMP, PTT #### [place] [address] USAComplete Blood Count Auto Diffon 25-07-3745Skmqqimnc (Bld) [#/Vol]0.1 10*3/uLNormal0.0-0.2The [facility] Physician [facility] State HospitalComment on above: Result Comment: PERFORMED BY: [place] [address] PATHOLOGIST BUILDING ATTENDANT CORAL GOLD M.D.Performed By: #### A1C WTH eA, UUPD21RW, TSH3, PT, CBC, VIOT33DAR, BMP, PTT #### [place] [address] USABasophils/100 WBC (Bld)1.0 %Normal.The [facility] Physician GroupComment on above:Performed By: #### A1C WTH eA, JLVM74MI, TSH3, PT, CBC, SNHE98BLW, BMP, PTT #### [place] [address] USAEosinophils (Bld) [#/Vol]0.3 10*3/uLNormal0.0-0.45The [facility] Physician GroupComment on above:Performed By: #### A1C WTH eA, BTVG90AH, TSH3, PT, CBC, KZND46BYX, BMP, PTT #### [place] [address] USAEosinophils/100 WBC (Bld)3.3 %Normal.The [facility] Physician GroupComment on above:Performed By: #### A1C WTH eA, YFFS48QW, TSH3, PT, CBC, BNTB00GFK, BMP, PTT #### [place] [address] USAErythrocyte distribution width (RBC) [Ratio]17.0 %High 12.0-14.8The [facility] Physician GroupComment on above:Performed By: #### A1C WTH eA, KOFB94FX, TSH3, PT, CBC, GLMF33GZR, BMP, PTT #### [place] [address] USAHematocrit (Bld) [Volume fraction]39.4 %Wzasph54.8-50.0The [facility] Physician GroupComment on above:Performed By: #### A1C WTH eA, EVWT63YV, TSH3, PT, CBC, ZJDC24YEW, BMP, PTT #### [place] [address] USAHemoglobin (Bld) [Mass/Vol]12.8 g/dLLow13.0-17.0The [facility] Physician GroupComment on above:Performed By: #### A1C WTH eA, OEIN01AM, TSH3, PT, CBC, OAFT59DCL, BMP, PTT #### [place] [address] USALymphocytes (Bld) [#/Vol]1.5 10*3/uLNormal1.00-4.8The [facility] Physician GroupComment on above:Performed By: #### A1C WTH eA, XGUC91XR, TSH3, PT, CBC, UVXY84DRB, BMP, PTT #### [facility] [address] [place] [address] USALymphocytes/100 WBC (Bld)19.5 %Normal.The [facility] Physician GroupComment on above:Performed By: #### A1C WTH eA, LPWY56TR, TSH3, PT, CBC, QIDN68UIL, BMP, PTT #### [facility] [address] [place] [address] USAMCH (RBC) [Entitic mass]27.9 jsOxypff56.5-35.2The [facility] Physician GroupComment on above:Performed By: #### A1C WTH eA, MVGC92KZ, TSH3, PT, CBC, KOSR96IQC, BMP, PTT #### [facility] [address] [place] [address] USAMCV (RBC) [Entitic vol]85.9 gEXudvez98.5-101The [facility] Physician GroupComment on above:Performed By: #### A1C WTH eA, WKTN06OR, TSH3, PT, CBC, ECME16UWF, BMP, PTT #### [place] [address] USAMean Corpuscular HGB Conc32.5 g/cPSyrhvr76.5-35.6The [facility] Physician GroupComment on above:Performed By: #### A1C WTH eA, GTPD90JL, TSH3, PT, CBC, GOPL74XOY, BMP, PTT #### [facility] [address] [place] [address] USAMonocytes (Bld) [#/Vol]0.6 10*3/uLNormal0.0-0.8The [facility] Physician GroupComment on above:Performed By: #### A1C WTH eA, ZUYZ12QN, TSH3, PT, CBC, LXHX86NKG, BMP, PTT #### [place] [address] USAMonocytes/100 WBC (Bld)8.3 %Normal.The [facility] Physician GroupComment on above:Performed By: #### A1C WTH eA, REBK68KV, TSH3, PT, CBC, XKNF73NRM, BMP, PTT #### [place] [address] USANeutrophils (Bld) [#/Vol]5.2 10*3/uLNormal1.8-7.7The [facility] Physician GroupComment on above:Performed By: #### A1C WTH eA, SYZC08IZ, TSH3, PT, CBC, DXXH32SGV, BMP, PTT #### [place] [address] USANeutrophils/100 WBC (Bld)67.9 %Normal.The [facility] Physician GroupComment on above:Performed By: #### A1C WTH eA, YBWU21DC, TSH3, PT, CBC, [id number], BMP, PTT #### [facility] [address] [place] [address] USANRBC%0.0 /100{WBC}Normal0-0.5The [facility] Comment on above:Performed By: #### A1C WTH eA, [id number], TSH3, PT, CBC, [id number], BMP, PTT #### [place] [address] USAPlatelet mean volume (Bld) [Entitic vol]7.9 fLNormal 6.6-10.1The [facility] Physician GroupComment on above:Performed By: #### A1C WTH eA, [id number], TSH3, PT, CBC, [id number], BMP, PTT #### [place] [address] USAPlatelets (Bld) [#/Vol]219 10*3/gWJxiuba476-111Hts [facility] Physician GroupComment on above:Performed By: #### A1C WTH eA, [id number], TSH3, PT, CBC, [id number], BMP, PTT #### [place] [id number] USARBC (Bld) [#/Vol]4.58 10*6/uLNormal3.90-5.60The [facility] Physician GroupComment on above:Performed By: #### A1C WTH eA, [id number], TSH3, PT, CBC, [id number], BMP, PTT #### [place] [id number] USAWBC (Bld) [#/Vol]7.7 10*3/uLNormal4.1-10.5The [facility] Physician GroupComment on above:Performed By: #### A1C WTH eA, [id number], TSH3, PT, CBC, [id number], BMP, PTT #### [place] [address] USAGlucose Poct Glucometerson 90-16-3489Sxthunq1Oyl4: Cleaned MeterNoWashington Regional Medical Center Physician Mississippi State HospitalComment on above:Result Comment: PERFORMED BY: [place] [address] PATHOLOGIST BUILDING ATTENDANT CORAL GOLD M.D.Performed By: #### A1C WTH eA, [id number], TSH3, PT, CBC, [id number], BMP, PTT #### [place] [address] USAGlucose [Mass/Vol]123 mg/dLNoWashington Regional Medical Center Physician GroupComment on above:Result Comment: Random Glucose Reference Range is dependent on time and content of last meal. Glucose of more than 200 mg/dL in a nonstressed, ambulatory subject supports the diagnosis of Diabetes Mellitus.Performed By: #### A1C WTH eA, GIHS66AT, TSH3, PT, CBC, [id number], BMP, PTT #### [place] [address] USAGlucose [Mass/Vol]151 mg/dLColumbia Miami Heart Institute Physician GroupComment on above:Result Comment: Random Glucose Reference Range is dependent on time and content of last meal. Glucose of more than 200 mg/dL in a nonstressed, ambulatory subject supports the diagnosis of Diabetes Mellitus. PERFORMED BY: [place] [address] PATHOLOGIST BUILDING ATTENDANT CORAL GODL M.D.Performed By: #### A1C WTH eA, NFHE53NO, TSH3, PT, CBC, [id number], BMP, PTT #### [facility] [address] [place] [address] USAGlucose [Mass/Vol]129 mg/dLNoWashington Regional Medical Center Physician GroupComment on above:Result Comment: Random Glucose Reference Range is dependent on time and content of last meal. Glucose of more than 200 mg/dL in a nonstressed, ambulatory subject supports the diagnosis of Diabetes Mellitus. PERFORMED BY: [place] [address] PATHOLOGIST BUILDING ATTENDANT CORAL GOLD M.D.Performed By: #### A1C WTH eA, [id number], TSH3, PT, CBC, [id number], BMP, PTT #### [facility] [address] [place] [address] USAGlucose [Mass/Vol]114 mg/dLNoWashington Regional Medical Center Physician GroupComment on above:Result Comment: Random Glucose Reference Range is dependent on time and content of last meal. Glucose of more than 200 mg/dL in a nonstressed, ambulatory subject supports the diagnosis of Diabetes Mellitus. PERFORMED BY: [place] [address] PATHOLOGIST BUILDING ATTENDANT CORAL GOLD M.D.Performed By: #### A1C WTH eA, [id number], TSH3, PT, CBC, [id number], BMP, PTT #### [facility] [address] [place] [address] USAProthrombin Time INRon 31-16-7951NEZ Coag (PPP) [Relative time]2.2 {INR}NormalThe Formerly [facility] Physician GroupComment on above:Result Comment: INR Therapeutic Range A) Pre- and [...] heart valves: 3 - 4.5 PERFORMED BY: [place] [address] PATHOLOGIST BUILDING ATTENDANT CORAL GOLD M.D.Performed By: #### A1C WTH eA, WLWS54VS, TSH3, PT, CBC, [id number], BMP, PTT #### [place] [address] USAPT Coag (PPP) [Time]25.2 sHigh9.0-12.9The [facility] Physician GroupComment on above:Result Comment: A hematocrit value greater than 55% may lead to inaccurate results in coagulation testing. Patients having hematocrit values >55% require a special collection tube for coagulation studies. Please contact the laboratory at [phone] for redraw instructions.Performed By: #### A1C WTH eA, [id number], TSH3, PT, CBC, [id number], BMP, PTT #### [place] [id number] USABasic Metabolic Panelon 52-75-9199Ofjwc gap [Moles/Vol] 11.8 mmol/LNormal6.0-15.0The [facility] Physician GroupComment on above:Performed By: #### A1C WTH eA, LHCT12SC, TSH3, PT, CBC, SELT95IYP, BMP, PTT #### [place] [address] USACalcium [Mass/Vol]9.0 mg/dLNormal8.6-10.3The [facility] Physician GroupComment on above:Performed By: #### A1C WTH eA, [id number], TSH3, PT, CBC, [id number], BMP, PTT #### [address] [address] USAChloride [Moles/Vol]98 mmol/EHwblor88-080Nmk Former[facility] Physician GroupComment on above:Performed By: #### A1C WTH eA, EEVW60NQ, TSH3, PT, CBC, TBHJ58MHC, BMP, PTT #### [place] [address] USACO2 [Moles/Vol]27.1 mmol/AWxxsuw80.0-31.0The [facility] Physician GroupComment on above:Performed By: #### A1C WTH eA, LSWZ90UG, TSH3, PT, CBC, OLWE91JDM, BMP, PTT #### [place] [address] USACreatinine [Mass/Vol]1.48 mg/dLHigh0.70-1.30The [facility] Physician GroupComment on above:Performed By: #### A1C WTH eA, GACO42TN, TSH3, PT, CBC, [id number], BMP, PTT #### [place] [address] USACreatinine Clr Calc Cxguxohz54.81[facility] Physician GroupComment on above:Result Comment: PERFORMED BY: [place] [address] PATHOLOGIST BUILDING ATTENDANT CORAL GOLD M.D.Performed By: #### A1C WTH eA, LNAN04CS, TSH3, PT, CBC, [id number], BMP, PTT #### [place] [address] USAGFR/1.73 sq M.predicted MDRD (S/P/Bld) [Vol rate/Area] 48.126 mL/min/{1.73_m2}NormalThe Formerly [facility] Physician GroupComment on above: Performed By: #### A1C WTH eA, ZDMC55AO, TSH3, PT, CBC, ELXI88MGE, BMP, PTT #### [place] [address] USAGlucose [Mass/Vol]128 mg/eRWjmi16-519Zou [facility] Physician GroupComment on above:Result Comment: Random Glucose Reference Range is dependent on time and content of last meal. Glucose of more than 200 mg/dL in a nonstressed, ambulatory subject supports the diagnosis of Diabetes Mellitus. ADA recommended reference rangePerformed By: #### A1C WTH eA, QXPN90AW, TSH3, PT, CBC, [id number], BMP, PTT #### [place] [address] USAPotassium [Moles/Vol]3.9 mmol/LNormal3.5-5.1The [facility] Physician GroupComment on above:Performed By: #### A1C WTH eA, YLZS11FF, TSH3, PT, CBC, KEMX93MYR, BMP, PTT #### [place] [address] USASodium [Moles/Vol]133 mmol/HLoz189-096Cra [facility] Physician GroupComment on above:Performed By: #### A1C WTH eA, TMTA78IG, TSH3, PT, CBC, IJPS52PQM, BMP, PTT #### [place] [address] USAUrea nitrogen [Mass/Vol]40 mg/dLHigh7-25The [facility] Physician GroupComment on above:Performed By: #### A1C WTH eA, SFSL84MY, TSH3, PT, CBC, JRVQ50YUP, BMP, PTT #### [place] [address] USAComplete Blood Count Auto Diffon 17-90-6278Ragvmqjtz (Bld) [#/Vol]0.1 10*3/uLNormal0.0-0.2The [facility] Physician [facility] State HospitalComment on above: Result Comment: PERFORMED BY: [place] [address] PATHOLOGIST BUILDING ATTENDANT CORAL GOLD M.D.Performed By: #### A1C WTH eA, OAJI32MI, TSH3, PT, CBC, [id number], BMP, PTT #### [place] [address] USABasophils/100 WBC (Bld)0.7 %Normal.The [facility] Physician GroupComment on above:Performed By: #### A1C WTH eA, BFCL12VD, TSH3, PT, CBC, [id number], BMP, PTT #### [place] [address] USAEosinophils (Bld) [#/Vol]0.2 10*3/uLNormal0.0-0.45The [facility] Physician GroupComment on above:Performed By: #### A1C WTH eA, NPGY29UG, TSH3, PT, CBC, NFEU68ECM, BMP, PTT #### [place] [address] USAEosinophils/100 WBC (Bld)2.7 %Normal.The [facility] Physician GroupComment on above:Performed By: #### A1C WTH eA, BAFX76VP, TSH3, PT, CBC, LUSZ52OAY, BMP, PTT #### [place] [address] USAErythrocyte distribution width (RBC) [Ratio]16.5 %High 12.0-14.8The [facility] Physician GroupComment on above:Performed By: #### A1C WTH eA, BLOI80QT, TSH3, PT, CBC, [id number], BMP, PTT #### [place] [address] USAHematocrit (Bld) [Volume fraction]39.5 %Giqozf29.8-50.0The [facility] Physician GroupComment on above:Performed By: #### A1C WTH eA, JGTJ31TQ, TSH3, PT, CBC, KILI73HEM, BMP, PTT #### [place] [address] USAHemoglobin (Bld) [Mass/Vol]12.6 g/dLLow13.0-17.0The [facility] Physician GroupComment on above:Performed By: #### A1C WTH eA, EFUZ24AW, TSH3, PT, CBC, RVZJ57DCO, BMP, PTT #### [place] [address] USALymphocytes (Bld) [#/Vol]1.6 10*3/uLNormal1.00-4.8The [facility] Physician GroupComment on above:Performed By: #### A1C WTH eA, TYLW70JK, TSH3, PT, CBC, KHMM18SUZ, BMP, PTT #### [facility] [address] [place] [address] USALymphocytes/100 WBC (Bld)18.3 %Normal.The [facility] Physician GroupComment on above:Performed By: #### A1C WTH eA, BLOD33YP, TSH3, PT, CBC, [id number], BMP, PTT #### [place] [address] USAMCH (RBC) [Entitic mass]27.7 keOvfdwy73.5-35.2The [facility] Physician GroupComment on above:Performed By: #### A1C WTH eA, PAZH54ZA, TSH3, PT, CBC, YBPK46ZQZ, BMP, PTT #### [facility] [address] [place] [address] USAMCV (RBC) [Entitic vol]86.8 gAEsekhy68.5-101The [facility] Physician GroupComment on above:Performed By: #### A1C WTH eA, PEJV43YJ, TSH3, PT, CBC, BZLI08EHJ, BMP, PTT #### [facility] [address] [place] [address] USAMean Corpuscular HGB Conc31.9 g/dLLow32.5-35.6The [facility] Physician GroupComment on above:Performed By: #### A1C WTH eA, OTOM12WH, TSH3, PT, CBC, [id number], BMP, PTT #### [facility] [address] [place] [address] USAMonocytes (Bld) [#/Vol]0.7 10*3/uLNormal0.0-0.8The [facility] Physician GroupComment on above:Performed By: #### A1C WTH eA, GAAJ59BD, TSH3, PT, CBC, HXTB53KBU, BMP, PTT #### [place] [address] USAMonocytes/100 WBC (Bld)8.0 %Normal.The [facility] Physician GroupComment on above:Performed By: #### A1C WTH eA, XHRP80DF, TSH3, PT, CBC, BPXA43XMU, BMP, PTT #### [place] [address] USANeutrophils (Bld) [#/Vol]6.1 10*3/uLNormal1.8-7.7The [facility] Physician GroupComment on above:Performed By: #### A1C WTH eA, WHSI69TT, TSH3, PT, CBC, [id number], BMP, PTT #### [place] [address] USANeutrophils/100 WBC (Bld)70.3 %Normal.The [facility] Physician GroupComment on above:Performed By: #### A1C WTH eA, JVXK72XD, TSH3, PT, CBC, BTVR13CDF, BMP, PTT #### [place] [address] USANRBC%0.2 /100{WBC}Normal0-0.5The [facility] Physician Group Comment on above:Performed By: #### A1C WTH eA, EBJV67YT, TSH3, PT, CBC, ISPM71MFP, BMP, PTT #### [place] [address] USAPlatelet mean volume (Bld) [Entitic vol]8.1 fLNormal 6.6-10.1The [facility] Physician GroupComment on above:Performed By: #### A1C WTH eA, WSWT88ES, TSH3, PT, CBC, ZLYF05ZLE, BMP, PTT #### [place] [address] USAPlatelets (Bld) [#/Vol]232 10*3/vJFhjazb957-500Ppn [facility] Physician GroupComment on above:Performed By: #### A1C WTH eA, ZPHW88SW, TSH3, PT, CBC, QTZT36BRY, BMP, PTT #### [facility] [address] [place] [id number] USARBC (Bld) [#/Vol]4.55 10*6/uLNormal3.90-5.60The Former[facility] Physician GroupComment on above:Performed By: #### A1C WTH eA, YNRS36HT, TSH3, PT, CBC, RXXE89UYS, BMP, PTT #### [facility] [address] [place] [address] USAWBC (Bld) [#/Vol]8.7 10*3/uLNormal4.1-10.5The Former[facility] Physician GroupComment on above:Performed By: #### A1C WTH eA, XSMV56PI, TSH3, PT, CBC, MEEQ71FWJ, BMP, PTT #### [facility] [address] [place] [id number] USAGlucose Poct Glucometerson 09-17-3869Hdldetx [Mass/Vol]131 mg/dLNormNCH Healthcare System - Downtown Naples Physician GroupComment on above:Result Comment: Random Glucose Reference Range is dependent on time and content of last meal. Glucose of more than 200 mg/dL in a nonstressed, ambulatory subject supports the diagnosis of Diabetes Mellitus. PERFORMED BY: [place] [address] PATHOLOGIST BUILDING ATTENDANT CORAL GOLD M.D.Performed By: #### A1C WTH eA, VSTU24PF, TSH3, PT, CBC, [id number], BMP, PTT #### [place] [id number] USAGlucose [Mass/Vol]130 mg/dLNoWashington Regional Medical Center Physician [facility] State HospitalComment on above:Result Comment: Random Glucose Reference Range is dependent on time and content of last meal. Glucose of more than 200 mg/dL in a nonstressed, ambulatory subject supports the diagnosis of Diabetes Mellitus. PERFORMED BY: [place] [address] PATHOLOGIST BUILDING ATTENDANT CORAL GOLD M.D.Performed By: #### A1C WTH eA, ULAQ77IJ, TSH3, PT, CBC, VXLZ29NHE, BMP, PTT #### [facility] [address] [place] [address] USAProthrombin Time INRon 69-63-4823UKO Coag (PPP) [Relative time]2.2 {INR}NormalThe [facility] Physician GroupComment on above:Result Comment: INR Therapeutic Range A) Pre- and [...] heart valves: 3 - 4.5 PERFORMED BY: [address] [address] PATHOLOGIST BUILDING ATTENDANT CORAL GOLD M.D.Performed By: #### A1C WTH eA, RLJL90NC, TSH3, PT, CBC, [id number], BMP, PTT #### [address] [address] USAPT Coag (PPP) [Time]25.4 sHigh9.0-12.9The [facility] Physician GroupComment on above:Result Comment: A hematocrit value greater than 55% may lead to inaccurate results in coagulation testing. Patients having hematocrit values >55% require a special collection tube for coagulation studies. Please contact the laboratory at [phone] for redraw instructions.Performed By: #### A1C WTH eA, DPYX31KC, TSH3, PT, CBC, WKGY50CDN, BMP, PTT #### [address] [address] USAA1C with Estimated Average Gluon 57-46-8248Xrpdqgi [Mass/Vol]183 mg/dLNormalThe [facility] Physician GroupComment on above:Result Comment: PERFORMED BY: [address] [address] PATHOLOGIST BUILDING ATTENDANT CORAL GOLD M.D.Performed By: #### A1C WTH eA, TTOD44TE, TSH3, PT, CBC, ALYW10OXO, BMP, PTT #### [facility] [address] [place] [address] USAActivated partial thromboplastin time (aPTT) in platelet poor plasma by coagulation aOrdered By: Stalin Miranda on [id number] Coag (PPP) [Time]38.4 sHigh25.1-36.5FSt. John of God HospitalComment on above:A hematocrit value greater than 55% may lead to inaccurate results in coagulation testing. Patientshaving hematocrit values >55% require a special collection tube for coagulation studies. Please contact the laboratory at [phone] for redraw instructions.Basic Metabolic Panelon 04-23-6309Fhznw gap [Moles/Vol]9.5 mmol/LNormal6.0-15.0The [facility] Physician GroupComment on above:Performed By: #### A1C WTH eA, GUID63LH, TSH3, PT, CBC, AXZT42HCL, BMP, PTT #### [facility] [address] [place] [address] USACalcium [Mass/Vol]9.5 mg/dLNormal8.6-10.3The [facility] Physician [facility] HospitalComment on above:Performed By: #### A1C WTH eA, RQUX35YP, TSH3, PT, CBC, YSKQ94GFY, BMP, PTT #### [facility] [address] [place] [address] USAChloride [Moles/Vol]98 mmol/LCcevrs50-700Bwl [facility] Physician GroupComment on above:Performed By: #### A1C WTH eA, GEXH28LM, TSH3, PT, CBC, CUOO11HUD, BMP, PTT #### [facility] [address] [place] [address] USACO2 [Moles/Vol]29.8 mmol/KOysioo48.0-31.0The [facility] Physician GroupComment on above:Performed By: #### A1C WTH eA, JKOK58ZR, TSH3, PT, CBC, TOTP26IUF, BMP, PTT #### [facility] [address] [place] [address] USACreatinine [Mass/Vol]1.65 mg/dLHigh0.70-1.30The [facility] Physician GroupComment on above:Performed By: #### A1C WTH eA, ZFWZ54FS, TSH3, PT, CBC, NJFB41SMB, BMP, PTT #### [facility] [address] [place] [address] USACreatinine Clr Calc Ssrnsavl61.73NormalThe [facility] Physician GroupComment on above:Performed By: #### A1C WTH eA, EFRK57KT, TSH3, PT, CBC, XJZB53YQZ, BMP, PTT #### [facility] [address] [place] [address] USAGFR/1.73 sq M.predicted MDRD (S/P/Bld) [Vol rate/Area] 42.239 mL/min/{1.73_m2}NormalThe Formerly [facility] Physician GroupComment on above: Performed By: #### A1C WTH eA, OGFL83OV, TSH3, PT, CBC, FDYB44HHV, BMP, PTT #### [facility] [address] [place] [address] USAGlucose [Mass/Vol]122 mg/zYLdkk32-279Kba [facility] Physician GroupComment on above:Result Comment: Random Glucose Reference Range is dependent on time and content of last meal. Glucose of more than 200 mg/dL in a nonstressed, ambulatory subject supports the diagnosis of Diabetes Mellitus. ADA recommended reference rangePerformed By: #### A1C WTH eA, QXWK11ID, TSH3, PT, CBC, OOJV73VIU, BMP, PTT #### [facility] [address] [place] [address] USAPotassium [Moles/Vol]4.3 mmol/LNormal3.5-5.1The [facility] Physician GroupComment on above:Performed By: #### A1C WTH eA, VVUD60RP, TSH3, PT, CBC, JLWN85ICF, BMP, PTT #### [place] [address] USASodium [Moles/Vol]133 mmol/PNnc687-594Xmi [facility] Physician GroupComment on above:Performed By: #### A1C WTH eA, RSJR07LP, TSH3, PT, CBC, HEIO15PSH, BMP, PTT #### [place] [address] USAUrea nitrogen [Mass/Vol]47 mg/dLHigh7-25The [facility] Physician GroupComment on above:Performed By: #### A1C WTH eA, IWIM76MQ, TSH3, PT, CBC, PPNF27FPA, BMP, PTT #### [place] [address] USAComplete Blood Count Auto Diffon 29-10-0719Lduamcpeh (Bld) [#/Vol]0.1 10*3/uLNormal0.0-0.2The [facility] Physician GroupComment on above: Result Comment: PERFORMED BY: [place] [address] PATHOLOGIST BUILDING ATTENDANT CORAL GOLD M.D.Performed By: #### A1C WTH eA, RCKZ31PQ, TSH3, PT, CBC, VCOT17LGG, BMP, PTT #### [place] [address] USABasophils/100 WBC (Bld)1.2 %Normal.The [facility] Physician GroupComment on above:Performed By: #### A1C WTH eA, LDNG69IY, TSH3, PT, CBC, NAPG28SHN, BMP, PTT #### [place] [address] USAEosinophils (Bld) [#/Vol]0.2 10*3/uLNormal0.0-0.45The [facility] Physician GroupComment on above:Performed By: #### A1C WTH eA, AZJA71NA, TSH3, PT, CBC, PNIF50PZZ, BMP, PTT #### [place] [address] USAEosinophils/100 WBC (Bld)1.6 %Normal.The [facility] Physician GroupComment on above:Performed By: #### A1C WTH eA, NVNI09WC, TSH3, PT, CBC, VQFL16ATU, BMP, PTT #### [facility] [address] [place] [address] USAErythrocyte distribution width (RBC) [Ratio]16.6 %High 12.0-14.8The [facility] Physician GroupComment on above:Performed By: #### A1C WTH eA, UOZK69VQ, TSH3, PT, CBC, IKPH68GQH, BMP, PTT #### [place] [address] USAHematocrit (Bld) [Volume fraction]39.1 %Vyxdjl70.8-50.0The [facility] Physician GroupComment on above:Performed By: #### A1C WTH eA, OIJN28WJ, TSH3, PT, CBC, VHPP02FRT, BMP, PTT #### [place] [address] USAHemoglobin (Bld) [Mass/Vol]12.8 g/dLLow13.0-17.0The [facility] Physician GroupComment on above:Performed By: #### A1C WTH eA, OQVO64QG, TSH3, PT, CBC, ENXB42KZH, BMP, PTT #### [place] [address] USALymphocytes (Bld) [#/Vol]1.9 10*3/uLNormal1.00-4.8The [facility] Physician GroupComment on above:Performed By: #### A1C WTH eA, GBPU71YM, TSH3, PT, CBC, CJLC32QOZ, BMP, PTT #### [place] [address] USALymphocytes/100 WBC (Bld)19.8 %Normal.The [facility] Physician GroupComment on above:Performed By: #### A1C WTH eA, DELI14SY, TSH3, PT, CBC, QZRL67TCW, BMP, PTT #### [facility] [address]H (RBC) [Entitic mass]28.0 bzLwzwlc94.5-35.2The [facility]ly [facility] Physician GroupComment on above:Performed By: #### A1C WTH eA, UFDM45JE, TSH3, PT, CBC, LAHX64IPG, BMP, PTT #### [address] (RBC) [Entitic vol]85.8 cQHhehhf43.5-101The [facility] Physician GroupComment on above:Performed By: #### A1C WTH eA, CZIB94PV, TSH3, PT, CBC, WMAP76SVI, BMP, PTT #### [place] [address] USAMean Corpuscular HGB Conc32.6 g/bTKgdrai60.5-35.6The [facility] Physician GroupComment on above:Performed By: #### A1C WTH eA, COTI92PW, TSH3, PT, CBC, SHTY75WAV, BMP, PTT #### [place] [address] USAMonocytes (Bld) [#/Vol]0.8 10*3/uLNormal0.0-0.8The [facility] Physician GroupComment on above:Performed By: #### A1C WTH eA, BQDH34LE, TSH3, PT, CBC, EVJW90HFS, BMP, PTT #### [place] [address] USAMonocytes/100 WBC (Bld)8.0 %Normal.The [facility] Physician GroupComment on above:Performed By: #### A1C WTH eA, LUOR61AY, TSH3, PT, CBC, TXFI27SLD, BMP, PTT #### [place] [address] USANeutrophils (Bld) [#/Vol]6.8 10*3/uLNormal1.8-7.7The [facility] Physician GroupComment on above:Performed By: #### A1C WTH eA, UIDP22JB, TSH3, PT, CBC, REYI07MWT, BMP, PTT #### [facility] [address] [place] [address] USANeutrophils/100 WBC (Bld)69.4 %Normal.The [facility] Physician GroupComment on above:Performed By: #### A1C WTH eA, JALR48JV, TSH3, PT, CBC, HUWO46YVE, BMP, PTT #### [facility] [address] [place] [address] USANRBC%0.0 /100{WBC}Normal0-0.5The [facility] Comment on above:Performed By: #### A1C WTH eA, LYMX64LL, TSH3, PT, CBC, EUOF08YDT, BMP, PTT #### [facility] [address] [place] [address] USAPlatelet mean volume (Bld) [Entitic vol]7.6 fLNormal 6.6-10.1The [facility] Physician GroupComment on above:Performed By: #### A1C WTH eA, GPVK95KH, TSH3, PT, CBC, JRSM75XGY, BMP, PTT #### [facility] [address] [place] [address] USAPlatelets (Bld) [#/Vol]219 10*3/dBKsijnl653-577Hkp [facility] Physician GroupComment on above:Performed By: #### A1C WTH eA, [id number], TSH3, PT, CBC, [id number], BMP, PTT #### [facility] [address] [place] [address] USARBC (Bld) [#/Vol]4.56 10*6/uLNormal3.90-5.60The [facility] Physician GroupComment on above:Performed By: #### A1C WTH eA, [id number], TSH3, PT, CBC, [id number], BMP, PTT #### [place] [address] USAWBC (Bld) [#/Vol]9.7 10*3/uLNormal4.1-10.5The [facility] Physician GroupComment on above:Performed By: #### A1C WTH eA, [id number], TSH3, PT, CBC, [id number], BMP, PTT #### [facility] [address] [place] [address] USAECH echo transthoracicon [id number] echo transthoracic [facility] [address] [place] [address] [place] [address] Echocardiogram Signed Patient: Nirmal Chaidez MR#: [id number] 9 : 1945 Acct:[id number] Age/Sex: 78 / M ADM Date: 06/19/24 Loc: Room: [address] [place] [address] Type: ADM IN Attending Dr: Stalin Miranda MD Ordering Provider: Carri Marques MD Date of Service: 06/19/24 ECH/ECH echo transthoracic: syncope Copies to: Milo Cameron MD, [facility] Carir Marques MD Weight: 314 lb Performed By: [...] 06/19/24 1428 Signed By: Milo Cameron MD, [facility] 06/20/24 1410[facility] Physician [facility] HospitalFolate [Mass/volume] in Serum or PlasmaOrdered By: Stalin Miranda on [id number] [Mass/Vol]7.4 ng/mL>5.9[facility]itan HospitalComment on above:Folate reference range: >5.9 ng/mlThe WHO technical consultation on folate and vitamin [id number] has determined that folate concentrations lessthan 4 ng/ml are considered deficient.Glucose Poct Glucometerson 06-19-2024 Glucose [Mass/Vol]104 mg/dLRedwood LLCComment on above: Result Comment: Random Glucose Reference Range is dependent on time and content of last meal. Glucose of more than 200 mg/dL in a nonstressed, ambulatory subject supports the diagnosis of Diabetes Mellitus. PERFORMED BY: [place] [address] PATHOLOGIST BUILDING ATTENDANT CORAL GOLD M.D.Performed By: #### A1C WTH eA, TOBO49LK, TSH3, PT, CBC, AVIP59SLO, BMP, PTT #### [place] [address] UYZPekymfu5Rqt9: Cleaned MeterNoWashington Regional Medical Center Physician GroupComment on above:Result Comment: PERFORMED BY: [place] [id number] PATHOLOGIST BUILDING ATTENDANT CORAL GOLD M.D.Performed By: #### A1C WTH eA, ZSPM52RC, TSH3, PT, CBC, DASY46SIN, BMP, PTT #### [place] [address] USAGlucose [Mass/Vol]109 mg/dLNoWashington Regional Medical Center Physician GroupComment on above:Result Comment: Random Glucose Reference Range is dependent on time and content of last meal. Glucose of more than 200 mg/dL in a nonstressed, ambulatory subject supports the diagnosis of Diabetes Mellitus.Performed By: #### A1C WTH eA, XJGG64PQ, TSH3, PT, CBC, RHLM80BJZ, BMP, PTT #### [place] [address] ESHJqkxfbm0Utn5: Cleaned MeterNoWashington Regional Medical Center Physician GroupComment on above:Result Comment: PERFORMED BY: [address] [address] PATHOLOGIST BUILDING ATTENDANT CORAL GOLD M.D.Performed By: #### A1C WTH eA, ZBUZ79MJ, TSH3, PT, CBC, OEHG61EXP, BMP, PTT #### [place] [id number] USAGlucose [Mass/Vol]119 mg/dLNoWashington Regional Medical Center Physician GroupComment on above:Result Comment: Random Glucose Reference Range is dependent on time and content of last meal. Glucose of more than 200 mg/dL in a nonstressed, ambulatory subject supports the diagnosis of Diabetes Mellitus.Performed By: #### A1C WTH eA, KBPT70LM, TSH3, PT, CBC, QXZL93PYG, BMP, PTT #### [place] [id number] USAGlucose [Mass/Vol]116 mg/dLColumbia Miami Heart Institute Physician GroupComment on above:Result Comment: Random Glucose Reference Range is dependent on time and content of last meal. Glucose of more than 200 mg/dL in a nonstressed, ambulatory subject supports the diagnosis of Diabetes Mellitus. PERFORMED BY: [address] [address] PATHOLOGIST BUILDING ATTENDANT CORAL GOLD M.D.Performed By: #### A1C WTH eA, VJDT50GP, TSH3, PT, CBC, CYLB76MJK, BMP, PTT #### [facility] [address] [place] [address] USAGlucose mean value [Mass/volume] in Blood Estimated from glycated hemoglobinOrdered By: Stalinkiersten Zimmermanil on 13-91-8963Ppyhebk glucose Estimated from glycated hemoglobin (Bld) [Mass/Vol]183 mg/dLGood Samaritan HospitalHemoglobin A1c percentageOrdered By: Stalin [facility] on 78-43-0487MmF4p (Bld) [Mass fraction]8.0 %High4.3-5.6FSt. John of God HospitalComment on above:Increased risk for diabetes: 5.7 - 6.4diabetes: >6.4glycemic control for adults with diabetes: <7.0Result Comment: Increased risk for diabetes: 5.7 - 6.4 diabetes: >6.4 glycemic control for adults with diabetes: <7.0Performed By: #### A1C WTH eA, OOTY67JD, TSH3, PT, CBC, BSNA52RXJ, BMP, PTT #### [facility] [address] [place] [address] USAPartial Thromboplastin Timeon 53-47-3316kMJJ Coag (Bld) [Time]38.4 sHigh25.1-36.5The [facility] Physician GroupComment on above:Result Comment: A hematocrit value greater than 55% may lead to inaccurate results in coagulation testing. Patients having hematocrit values >55% require a special collection tube for coagulation studies. Please contact the laboratory at [phone] for redraw instructions. PERFORMED BY: [address] [address] PATHOLOGIST BUILDING ATTENDANT CORAL GOLD M.D.Performed By: #### A1C WTH eA, KDNO80LI, TSH3, PT, CBC, PBFA67EXB, BMP, PTT #### [facility] [address] [place] [address] USAProthrombin Time INRon 32-37-0176FHC Coag (PPP) [Relative time]2.4 {INR}NormalThe [facility]ly [facility] Physician GroupComment on above:Result Comment: INR Therapeutic Range A) Pre- and [...] patients with mechanical heart valves: 3 - 4.5Performed By: #### A1C WTH eA, BQGP06NT, TSH3, PT, CBC, RIKW37QMH, BMP, PTT #### [facility] [address] [place] [address] USAPT Coag (PPP) [Time]27.1 sHigh9.0-12.9The [facility] Physician GroupComment on above:Result Comment: A hematocrit value greater than 55% may lead to inaccurate results in coagulation testing. Patients having hematocrit values >55% require a special collection tube for coagulation studies. Please contact the laboratory at [phone] for redraw instructions.Performed By: #### A1C WTH eA, GKMA72TP, TSH3, PT, CBC, ARYT74BIX, BMP, PTT #### [facility] [address] [place] [address] USAThyrotropin [Units/volume] in Serum or PlasmaOrdered By: Stalin Miranda on 20-56-0450JSL Qn2.14 m[IU]/LNormal0.45-5.33Good Samaritan HospitalComment on above:Performed By: #### A1C WTH eA, HBEV59AS, TSH3, PT, CBC, LPSY34KSV, BMP, PTT #### [facility] [address] [place] [address] USATroponin I High Sensitivityon 48-34-1599Buhqrscg I High Fotibsmwbiw46.6 pg/mLHigh0.0-20.0The [facility] Physician GroupComment on above: Result Comment: PERFORMED BY: [place] [address] PATHOLOGIST BUILDING ATTENDANT CORAL GOLD M.D.Performed By: #### A1C WTH eA, RNST26YD, TSH3, PT, CBC, KVXN28GOI, BMP, PTT #### [facility] [address] [place] [address] USATroponin I.cardiac [Mass/volume] in Serum or Plasma by Detection limit <= 0.01 ng/Ordered By: Stailn Miranda on 61-56-1382Bswqrhte I.cardiac DL <= 0.01 ng/mL [Mass/Vol]27.6 pg/mLHigh0.0-20.0Good Samaritan HospitalVit. B12/Folate Profileon 17-01-7228Gqsatn4.4 ng/mLNormal>5.9The [facility] Physician GroupComment on above:Result Comment: Folate reference range: >5.9 ng/ml The WHO technical consultation on folate and vitamin b12 deficiencies has determined that folate concentrations less than 4 ng/ml are considered deficient.Performed By: #### A1C WTH eA, EPLP47LD, TSH3, PT, CBC, IALZ05GGU, BMP, PTT #### [facility] [address] [place] [address] USAVitamin B12 ser/plasOrdered By: Stalin Miranda on 92-33-6053Olrnpfbev (Vitamin B12) [Mass/Vol]188 pg/ePSgfqgw872-455OshbhzmzlGood Samaritan HospitalComment on above:Performed By: #### A1C WTH eA, WCNL42MZ, TSH3, PT, CBC, ZXTU11DNC, BMP, PTT #### [facility] [address] [place], [place] [address] USAVitamin D 25 Hydroxy Totalon 43-08-3074Otghneq D 25 Hydroxy Total26.8 ng/wGCul91-325Gnk [facility] Physician GroupComment on above: Result Comment: VITAMIN D STATUS 25(OH)VITAMIN D RANGE (ng/mL) Deficient <20 Insufficient 20 to <30 Sufficient 30 to 100 Reference: Sharad Orellana, Verona TOVAR, et al. Evaluation,treatment, and prevention of vitamin D deficiency; an Endocrine Society clinical practice guideline. JCEM. 2010; 96(7):1911-. PERFORMED BY: [facility] [address] [place] [id number] PATHOLOGIST BUILDING ATTENDANT CORAL GOLD M.D.Performed By: #### A1C WTH eA, ILWX03JV, TSH3, PT, CBC, EJYE93LTR, BMP, PTT #### [facility] [address] [place] [address] USAVitamin D+Metabolites [Mass/volume] in Serum or Plasma Ordered By: Stalin Miranda on 50-66-5709Zafrxao D+Metabolites [Mass/Vol] 26.8 ng/iNEvn94-946NvhyxulgwGood Samaritan HospitalComment on above:VITAMIN D STATUS 25(OH)VITAMIN D RANGE (ng/mL) Deficient <20 Insufficient 20 to <44Cjfcyvlmqm19 to 100Reference: Sharad Orellana, Verona TOVAR, et al. Evaluation,treatment, and prevention of vitamin D deficiency; an Endocrine Society clinical practice guideline. JCEM. 2010; 96(7):1911-.Alanine aminotransferase [Enzymatic activity/volume] in Serum or PlasmaOrdered By: Domenico Betancourt on 44-54-0709XIS [Catalytic activity/Vol]8 U/LNormal7-52 [facility] Samaritan HospitalComment on above:Performed By: #### A1C WTH eA, XNIH92UX, TSH3, PT, CBC, WEXK33UVA, BMP, PTT #### [facility] [address] [place] [address] USAAlbumin [Mass/volume] in Serum or Plasma by Bromocresol green (BCG) dye binding methoOrdered By: Domenico Betancourt on 45-53-0732Kkajjgs BCG dye [Mass/Vol]3.9 g/dL3.5-5.7FSt. John of God HospitalAlkaline phosphatase [Enzymatic activity/volume] in Serum or PlasmaOrdered By: Domenico Betancourt on 82-69-6629GOH [Catalytic activity/Vol]85 U/EFjrylf16-816WzbqlwdqbGood Samaritan HospitalComment on above:Performed By: #### A1C WTH eA, PTFS64KR, TSH3, PT, CBC, PDUB57QIZ, BMP, PTT #### [facility] [address] [place] [address] USAAspartate aminotransferase [Enzymatic activity/volume] in Serum or PlasmaOrdered By: Domenico Betancourt on 52-97-6118PLA [Catalytic activity/Vol]11 U/FYmq60-24SxaiadjcjGood Samaritan HospitalComment on above: Performed By: #### A1C WTH eA, BWTM94FM, TSH3, PT, CBC, EHCX04VXE, BMP, PTT #### [place] [address] USAAutomated basophil %Ordered By: Domenico Betancourt on 19-57-4326Fromugycc/100 WBC (Bld)0.6 %Normal.[facility] Comment on above:Performed By: #### A1C WTH eA, QMDL09DP, TSH3, PT, CBC, LPGR72BCL, BMP, PTT #### [facility] [address] [place] [address] USAAutomated basophil countOrdered By: Domenico Betancourt on 25-80-4551Srzaxzxbi (Bld) [#/Vol]0.1 10*3/uLNormal0.0-0.2FSt. John of God HospitalComment on above:Result Comment: PERFORMED BY: [place] [address] PATHOLOGIST BUILDING ATTENDANT CORAL GOLD M.D.Performed By: #### A1C WTH eA, YWBK87ZD, TSH3, PT, CBC, TPDI69ATV, BMP, PTT #### [facility] [address] [place] [address] USAAutomated blood monocyte countOrdered By: Domenico Betancourt on 27-89-0614Jsfjagnsw (Bld) [#/Vol]0.7 10*3/uLNormal0.0-0.8Good Samaritan HospitalComment on above:Performed By: #### A1C WTH eA, CDDD91LY, TSH3, PT, CBC, BNMH83NJV, BMP, PTT #### [facility] [address] [place] [address] USAAutomated eosinophil %Ordered By: Domenico Betancourt on 39-92-4467Dpwzybshxwn/100 WBC (Bld)1.1 %Normal.[facility] Comment on above:Performed By: #### A1C WTH eA, BHVB53PN, TSH3, PT, CBC, FESM18LLR, BMP, PTT #### [facility] [address] [place] [address] USAAutomated eosinophil countOrdered By: Domenico Betancourt on 22-17-9064Covafnzpzcf (Bld) [#/Vol]0.1 10*3/uLNormal0.0-0.45Good Samaritan HospitalComment on above:Performed By: #### A1C WTH eA, BMZM60WM, TSH3, PT, CBC, OSMW05DKD, BMP, PTT #### [facility] [address] [place] [address] USAAutomated monocyte %Ordered By: Domenico Betancourt on 99-42-2505Gbdtrrgny/100 WBC (Bld)5.6 %Normal.[facility] Comment on above:Performed By: #### A1C WTH eA, VYJX68YW, TSH3, PT, CBC, EXYF46WXD, BMP, PTT #### [facility] [address] [place] [id number] USAAutomated neutrophil %Ordered By: Domenico Betancourt on 66-86-2622Zfkbycipcfg/100 WBC (Bld)73.9 %Normal.Good Samaritan HospitalComment on above:Performed By: #### A1C WTH eA, GIGM29MR, TSH3, PT, CBC, KMYF59BAR, BMP, PTT #### [facility] [address] [place] [address] USABNP ser/plasOrdered By: Domenico Betancourt on 06-18-2024 Natriuretic peptide B (Bld) [Mass/Vol]50.0 pg/mLNormal5-100Good Samaritan HospitalComment on above:Result Comment: PERFORMED BY: [place] [address] PATHOLOGIST BUILDING ATTENDANT CORAL GOLD M.D.Performed By: #### A1C WTH eA, YSPH14QD, TSH3, PT, CBC, PRGN03QUU, BMP, PTT #### [place] [id number] USABacteria [Presence] in Urine by AutomatedOrdered By: Domenico Betancourt on 23-84-2258Zkyqqezf Auto Ql (U)None seen [HPF]None Seen [facility]aritan HospitalBasic Metabolic Panelon 95-17-8725Gialmyksex Clr Calc Hnpzctlh46.12NormNCH Healthcare System - Downtown Naples Physician GroupComment on above: Performed By: #### A1C WTH eA, TCYU55NJ, TSH3, PT, CBC, ZOJG08AKC, BMP, PTT #### [place] [phone] USAGFR/1.73 sq M.predicted MDRD (S/P/Bld) [Vol rate/Area] 51.445 mL/min/{1.73_m2}NormalThe [facility] Physician [facility] State HospitalComment on above: Performed By: #### A1C WTH eA, NFTL42FO, TSH3, PT, CBC, EYQV23QRI, BMP, PTT #### [facility] [address] [place], [place] [id number] USABilirubin Test strip Ql (U)Ordered By: Domenico Betancourt on 34-07-1671Uoietddjy Ql (U)NegativeNegativeGood Samaritan Hospital Bilirubin.direct [Mass/volume] in Serum or PlasmaOrdered By: Domenico Betancourt on 24-78-2448Kqlrpmvqf.direct [Mass/Vol]0.20 mg/dLHigh0.03-0.18FSt. John of God HospitalBilirubin.total [Mass/volume] in Serum or PlasmaOrdered By: Domenico Betancourt on 02-57-2331Osiswsneo [Mass/Vol]0.6 mg/dLNormal0.3-1.0 [facility] Samaritan HospitalComment on above:Performed By: #### A1C WTH eA, IHNE43DA, TSH3, PT, CBC, AXFK02AWP, BMP, PTT #### [facility] [address] [place] [address] USACOVID CepheidOrdered By: Domenico Betancourt on 06-18-2024 SARS-CoV-2 (COVID-19) Ab IA QlNegativeNegativeGood Samaritan Hospital Comment on above:This is a duplicate Cepheid Xpert Xpress CoV-2/Flu/RSV Plus RNA by RT-PCR result to be used for statistical tracking purpose only.SARS-CoV-2 (COVID-19) RNA NA+probe Ql (Unsp spec)Good Samaritan HospitalCOVID-19 / Flu A/B / RSV PCRon 72-47-7888HEGL-CoV-2 (COVID-19) RNA NA+probe Ql (Unsp spec)COVID-19 Cepheid Result Negative for SARS-CoV-2 RNA by RT-PCR Flu A Cepheid Result Negative for Flu A RNA by RT-PCR Flu B Cepheid Result Negative for Flu B RNA by RT-PCR RSV Cepheid Result Negative for RSV RNA by RT-PCR COVID19 Blank Space Reference: Negative COVID19 Blank Space Cepheid Disclaimer The Cepheid Xpert Xpress CoV-2/Flu/RSV [...] or Cepheid Disclaimer revoked sooner. PERFORMED BY: [place] [address] PATHOLOGIST BUILDING ATTENDANT CORAL GOLD M.D.[facility] Physician GroupComment on above:Performed By: #### A1C WTH eA, JBIH46TT, TSH3, PT, CBC, CCGQ89QCZ, BMP, PTT #### [place] [address] USACT abdomen pelvis wo conon 94-47-7040FG abdomen pelvis wo [facility] [place] [address] CT Scan Report Signed Patient: Nirmal Chaidez MR#: [id number] 9 : 1945 Acct:[id number] Age/Sex: 78 / M ADM Date: 06/18/24 Loc: ER Room: Type: [facility] ER Attending Dr: Copies to: Domenico Betancourt [...] Norberto Villalta M.D.06/18/2024 5:11 PM Dictation Location: [place] [address] Transcribed By: [facility] 06/18/24 1711 Dictated By: Norberto Villalta II, MD 06/18/24 1704 Signed By: 06/18/24 1711NoWashington Regional Medical Center Physician GroupCalcium [Mass/volume] in Serum or PlasmaOrdered By: Domenico Betancourt on 47-18-9789Cglofug [Mass/Vol]9.7 mg/dL Normal8.6-10.3FSt. John of God HospitalComment on above:Performed By: #### A1C WT eA, NOKA95AU, TSH3, PT, CBC, LWER19LRD, BMP, PTT #### [facility] [address] [place] [address] USACarbon dioxide, total [Moles/volume] in Serum or Plasma Ordered By: Domenico Betancourt on 35-79-4181QA0 [Moles/Vol]25.8 mmol/LNormal 21.0-31.0[facility] Samaritan HospitalComment on above:Performed By: #### A1C WTH eA, DGUK81FT, TSH3, PT, CBC, PESH58PGE, BMP, PTT #### [facility] [address] [place] [address] USACepheid COVID PCR Negativeon 22-17-1521ITCU-CoV-2 (COVID- 19) RNA NA+probe Ql (Unsp spec)NegativeNormalNegativeThe [facility] Physician GroupComment on above:Result Comment: This is a duplicate Cepheid Xpert Xpress CoV-2/Flu/RSV Plus RNA by RT-PCR result to be used for statistical tracking purpose only. PERFORMED BY: [place] [address] PATHOLOGIST BUILDING ATTENDANT CORAL GOLD M.D.Performed By: #### A1C WTH eA, QWFO66PM, TSH3, PT, CBC, JBIU31IYK, BMP, PTT #### [place] [phone] USAChloride [Moles/volume] in Serum or PlasmaOrdered By: Domenico Betancourt on 53-62-6630Bwsmhggz [Moles/Vol]93 mmol/NOlf36-820YzenghogvGood Samaritan HospitalComment on above:Performed By: #### A1C WTH eA, MLPL86MT, TSH3, PT, CBC, SUIS36VCE, BMP, PTT #### [place] [phone] USAColor of Urine by AutoOrdered By: Domenico Betancourt on 28-93-4687Gzihg (U)Light-yellowNormalYellowGood Samaritan Hospital Comment on above:Order Comment: Name Collection Type:: Clean-Voided Midstream Performed By: #### A1C WTH eA, SGXU40YW, TSH3, PT, CBC, DBEP39UGC, BMP, PTT #### [facility] [address] [place] [address] USAComplete Blood Count Auto Diffon 58-11-6000Lgdx Corpuscular HGB Conc32.2 g/dLLow32.5-35.6The [facility] Physician [facility] State HospitalComment on above:Performed By: #### A1C WTH eA, UIOO83CV, TSH3, PT, CBC, FONY05RLJ, BMP, PTT #### [facility] [address] [place] [address] USAMonocytes/100 WBC (Bld)19.75 %Normal0.00-20.00The [facility] Physician [facility] State HospitalComment on above:Performed By: #### A1C WTH eA, EXFA64RE, TSH3, PT, CBC, DEBE08JJE, BMP, PTT #### [facility] [address] [place] [address] USANRBC%0.1 /100{WBC}Normal0-0.5The [facility] Physician [facility] Comment on above:Performed By: #### A1C WTH eA, JJPO73SC, TSH3, PT, CBC, OKDP43JZK, BMP, PTT #### [place] [phone] USACreatinine [Mass/volume] in Serum or PlasmaOrdered By: Domenico Betancourt on 14-80-0345Lmyqvsjlid [Mass/Vol]1.40 mg/dLHigh0.70-1.30 [facility] Samaritan HospitalComment on above:Performed By: #### A1C WTH eA, SBGF44QT, TSH3, PT, CBC, VXTF88KDH, BMP, PTT #### [place] [phone] USADipstick and Microscopicon 91-79-8111Htxdbfnl,UrineNone SeenNormalNone SeenThe [facility] Physician [facility] State HospitalComment on above:Order Comment: Name Collection Type:: Clean-Voided MidstreamPerformed By: #### A1C WTH eA, XUKK03RZ, TSH3, PT, CBC, OJRU81IOX, BMP, PTT #### [place] [phone] USABilirubin,UrineNegativeNormalNegativeThe Firelands Physician GroupComment on above:Order Comment: Name Collection Type:: Clean- Voided MidstreamPerformed By: #### A1C WTH eA, NKSH15CK, TSH3, PT, CBC, JSZX00SNO, BMP, PTT #### [place] [address] USAGlucose Ql (U)NormalNormalNormalThe [facility] Physician GroupComment on above:Order Comment: Name Collection Type:: Clean-Voided MidstreamPerformed By: #### A1C WTH eA, NNPD76FJ, TSH3, PT, CBC, CCBR22OFO, BMP, PTT #### [place] [address] USAHyaline Casts,Vgnpm7-0Tbrbnc9-1Cmz [facility] Physician GroupComment on above:Order Comment: Name Collection Type:: Clean-Voided MidstreamPerformed By: #### A1C WTH eA, LVUI80YI, TSH3, PT, CBC, BTZP24RDK, BMP, PTT #### [place] [address] USAMucus,UrineRareNormalThe [facility] Physician GroupComment on above:Order Comment: Name Collection Type:: Clean-Voided MidstreamResult Comment: PERFORMED BY: [place] [address] PATHOLOGIST BUILDING ATTENDANT CORAL GOLD M.D.Performed By: #### A1C WTH eA, CLJK82HU, TSH3, PT, CBC, UREG70MYH, BMP, PTT #### [place] [address] USANitrite,UrineNegativeNormalNegativeBaptist Medical Center South Physician GroupComment on above:Order Comment: Name Collection Type:: Clean-Voided MidstreamPerformed By: #### A1C WTH eA, SZNN86CD, TSH3, PT, CBC, EKOD47VNB, BMP, PTT #### [place] [address] USAOccult Blood,Urine2+HighNegativeThe [facility] Physician GroupComment on above:Order Comment: Name Collection Type:: Clean-Voided MidstreamResult Comment: PERFORMED BY: [place] [address] PATHOLOGIST BUILDING ATTENDANT CORAL GOLD M.D.Performed By: #### A1C WTH eA, EPDI30ZO, TSH3, PT, CBC, SDDA37CTB, BMP, PTT #### [place] [address] USAProtein,UrineNegativeNormalNegativeThe [facility] Physician GroupComment on above:Order Comment: Name Collection Type:: Clean-Voided MidstreamPerformed By: #### A1C WTH eA, XCPL85LH, TSH3, PT, CBC, IUGN06SQJ, BMP, PTT #### [place] [address] USARBC,Phvnj25-96Acxp4-5Zqe [facility] Physician GroupComment on above:Order Comment: Name Collection Type:: Clean-Voided MidstreamPerformed By: #### A1C WTH eA, UHPP19HC, TSH3, PT, CBC, HSDJ59YJW, BMP, PTT #### [place] [address] USASpecificy [place],Urine1.165Yclxls5.001-1.030The [facility] Physician GroupComment on above:Order Comment: Name Collection Type:: Clean- Voided MidstreamPerformed By: #### A1C WTH eA, MWGG22ES, TSH3, PT, CBC, NFGE10KWD, BMP, PTT #### [place] [address] USASquamous Epithelial Cell,Haanv6-3Pnbbsj1-0Hcb [facility] Physician GroupComment on above:Order Comment: Name Collection Type:: Clean- Voided MidstreamPerformed By: #### A1C WTH eA, NDAC92BE, TSH3, PT, CBC, XZBK22LCN, BMP, PTT #### [place] [address] USAUrobilinogen,UrineNormalNormalNormalThe [facility] Physician GroupComment on above:Order Comment: Name Collection Type:: Clean- Voided MidstreamPerformed By: #### A1C WTH eA, JRJA94PS, TSH3, PT, CBC, BKBA25NIQ, BMP, PTT #### [facility] [address] [place] [id number] USAWBC,Psckf4-7Hjirrt2-3Mie [facility] Physician GroupComment on above:Order Comment: Name Collection Type:: Clean-Voided MidstreamPerformed By: #### A1C WTH eA, EWJI04AD, TSH3, PT, CBC, CKZZ46AHJ, BMP, PTT #### [facility] [address] [place] [id number] USAECG 12 lead ECGon 47-21-1144VTD 12 lead ECGLAKEHE[facility] Main [place] [address] [place] [address] Electrocardiograph Report Signed Patient: Nirmal Chaidez MR#: [id number] 9 : 1945 Acct:[id number] Age/Sex: 78 / M ADM Date: 06/19/24 Loc: Room: [address] [place] [address] Type: ADM IN Attending Dr: Stalin Miranda [...] ischemia Abnormal ECG Confirmed by RAKESH OCONNELL [facility], MILO ([id number]) on 06/20/2024 4:29:19 PM Referred By: Electronically Signed By: MILO CAMERON MD [facility] Transcribed By: MUS Signed By Milo Cameron MD, FACC 06/20/[address] [place] [address] Physician [facility] State HospitalEpithelial cells.squamous [#/area] in Urine sediment by Automated countOrdered By: Domenico Betancourt on 80-09-6041Nmqlxnudtj cells.squamous Auto (Urine sed) [#/Area]1-2 [HPF]0-2 [facility]aritan HospitalErythrocyte distribution width [Ratio] by Automated countOrdered By: Domenico Betancourt on 84-98-9158Tqvvcjxvhty distribution width (RBC) [Ratio]16.8 %High12.0-14.8[facility]itan HospitalComment on above:Performed By: #### A1C WTH eA, ARNC34AR, TSH3, PT, CBC, RVNN93DHW, BMP, PTT #### [facility] [address] [place] [address] USAErythrocytes [#/area] in Urine sediment by Automated count Ordered By: Domenico Betancourt on 15-46-5887UVF Auto (Urine sed) [#/Area]20-49 [HPF]High0-4FSt. John of God HospitalErythrocytes [#/volume] in Blood by Automated countOrdered By: Domenico Betancourt on 55-63-5687ZRG (Bld) [#/Vol]5.29 10*6/uLNormal3.90-5.60[facility] HospitalComment on above: Performed By: #### A1C WTH eA, CNLV79CI, TSH3, PT, CBC, WLGF46YXZ, BMP, PTT #### [facility] [address] [place] [address] USAGlucose Poct Glucometerson 60-99-5792Vcifjzp [Mass/Vol]119 mg/dLColumbia Miami Heart Institute Physician GroupComment on above:Result Comment: Random Glucose Reference Range is dependent on time and content of last meal. Glucose of more than 200 mg/dL in a nonstressed, ambulatory subject supports the diagnosis of Diabetes Mellitus. PERFORMED BY: [place] [address] PATHOLOGIST BUILDING ATTENDANT CORAL GOLD M.D.Performed By: #### A1C WTH eA, ZZDN02ZV, TSH3, PT, CBC, YCZA52XMP, BMP, PTT #### [facility] [address] [place] [address] USAGlucose [Mass/volume] in Serum or PlasmaOrdered By: Domenico Betancourt on 50-68-2249Ilalaqe [Mass/Vol]158 mg/rVXfon35-569VnuhkugpxGood Samaritan HospitalComment on above:ADA recommended reference rangeRandom Glucose Reference Range is dependent on time and content of last meal. Glucose of more than 200 mg/dL in a nonstressed, ambulatory subject supports the diagnosisof Diabetes Mellitus.Result Comment: Random Glucose Reference Range is dependent on time and content of last meal. Glucose of more than 200 mg/dL in a nonstressed, ambulatory subject supports the diagnosis of Diabetes Mellitus. ADA recommended reference rangePerformed By: #### A1C WTH eA, KSRK91PQ, TSH3, PT, CBC, UXKP49MGL, BMP, PTT #### [facility] [address] [place] [address] USAGlucose [Mass/volume] in Urine by Test stripOrdered By: Domenico Betancourt on 14-03-5614Newzyqv Test strip (U) [Mass/Vol]Normal mg/dL NormalGood Samaritan HospitalHematocrit [Volume Fraction] of Blood by Automated countOrdered By: Domenico Betancourt on 91-96-0268Etolxnwxja (Bld) [Volume fraction]45.6 %Kacpuy64.8-50.0Good Samaritan HospitalComment on above:Performed By: #### A1C WTH eA, IADC66YR, TSH3, PT, CBC, CAQR91ARX, BMP, PTT #### [facility] [address] [place] [address] USAHemoglobin Test strip Ql (U)Ordered By: Domenico Betancourt on 62-56-0610Fyzuwhatlp Ql (U)2+HighNegativeGood Samaritan Hospital Hemoglobin [Mass/volume] in BloodOrdered By: Domenico Betancourt on 06-18-2024 Hemoglobin (Bld) [Mass/Vol]14.7 g/yMHuhwzw81.0-17.0Good Samaritan HospitalComment on above:Performed By: #### A1C WTH eA, MUXI58TP, TSH3, PT, CBC, PVYZ59QFU, BMP, PTT #### [facility] [address] [place] [address] USAHepatic Panelon 07-47-7613Hmjfjbs [Mass/Vol]3.9 g/dLNormal 3.5-5.7The [facility] Physician GroupComment on above:Performed By: #### A1C WTH eA, VKGS33RE, TSH3, PT, CBC, QRMN70SBW, BMP, PTT #### [facility] [address] [place] [address] USABilirubin,Indirect0.4 mg/dLNormalThe [facility]ly [facility] Physician GroupComment on above:Performed By: #### A1C WTH eA, TVOQ47MZ, TSH3, PT, CBC, OAEK94KQX, BMP, PTT #### [facility] [address] [place] [address] USABilirubin.indirect [Mass/Vol]0.20 mg/dLHigh0.03-0.18The [facility] Physician GroupComment on above:Performed By: #### A1C WTH eA, YDEL86YO, TSH3, PT, CBC, WVWJ06HGO, BMP, PTT #### [place] [address] USAHyaline casts [#/area] in Urine sediment by Automated countOrdered By: Domenico Betancourt on 60-52-9048Htvadwh casts Auto (Urine sed) [#/Area]0-8 [LPF]0-8Good Samaritan HospitalKetones [Presence] in Urine by Test stripOrdered By: Domenico Betancourt on 29-17-4108Rxalmny Ql (U)Negative NormalNegHolmes County Joel Pomerene Memorial HospitalComment on above:Order Comment: Name Collection Type:: Clean-Voided MidstreamPerformed By: #### A1C WTH eA, ALRB54LR, TSH3, PT, CBC, FPYV63RSW, BMP, PTT #### [place] [address] USALeukocyte esterase [Presence] in Urine by Test strip Ordered By: Domenico Betancourt on 97-40-0715Bulpfmetd esterase Test strip Ql (U) NegativeNormalNegativeGood Samaritan HospitalComment on above:Order Comment: Name Collection Type:: Clean-Voided MidstreamPerformed By: #### A1C WTH eA, EVUE29WO, TSH3, PT, CBC, HNBV33YYG, BMP, PTT #### [facility] [address] [place] [address] USALeukocytes [#/area] in Urine sediment by Automated count Ordered By: Domenico Betancourt on 90-93-0870FUS Auto (Urine sed) [#/Area]1-2 [HPF] 0-4FSt. John of God HospitalLeukocytes [#/volume] corrected for nucleated erythrocytes in Blood by Automated counOrdered By: Domenico Betancourt on 71-07-7877HZW corrected for nucl RBC Auto (Bld) [#/Vol]11.6 10*3/uLHigh4.1-10.5 [facility]aritan HospitalLeukocytes [#/volume] in Blood by Automated countOrdered By: Domenico Betancourt on 73-02-0019OXC (Bld) [#/Vol]11.6 10*3/uLHigh 4.1-10.5FSt. John of God HospitalComment on above:Performed By: #### A1C WTH eA, YKZA09WX, TSH3, PT, CBC, NKQD00FGA, BMP, PTT #### [facility] [address] [place] [address] USALipase [Enzymatic activity/volume] in Serum or Plasma Ordered By: Domenico Betancourt on 78-94-2219Llmajq [Catalytic activity/Vol]18.0 U/IRrfsqr80.0-82.0Good Samaritan HospitalComment on above:Result Comment: PERFORMED BY: [facility] [address] [place] [address] PATHOLOGIST BUILDING ATTENDANT CORAL GOLD M.D.Performed By: #### A1C WTH eA, YMHU68KF, TSH3, PT, CBC, ANBO14DSH, BMP, PTT #### [facility] [address] [place] [address] USALymphocytes [#/volume] in Blood by Automated countOrdered By: Domenico Betancourt on 89-58-9115Qifkpwxaycr (Bld) [#/Vol]2.2 10*3/uLNormal 1.00-4.8Good Samaritan HospitalComment on above:Performed By: #### A1C WTH eA, KNFZ98OG, TSH3, PT, CBC, PALU00URN, BMP, PTT #### [facility] [address] [place] [address] USALymphocytes/100 leukocytes in Blood by Automated count Ordered By: Domenico Betancourt on 81-47-2194Gjlbibymnef/100 WBC (Bld)18.8 %Normal. [facility] Samaritan HospitalComment on above:Performed By: #### A1C WTH eA, JTKJ24ON, TSH3, PT, CBC, ULCC90SWP, BMP, PTT #### [facility] [address] [place] [address] USAMCH [Entitic mass] by Automated countOrdered By: Domenico Betancourt on 50-56-7656NIR (RBC) [Entitic mass]27.8 heWdywgl91.5-35.2FSt. John of God HospitalComment on above:Performed By: #### A1C WTH eA, HBXL36GL, TSH3, PT, CBC, BSEI59YXN, BMP, PTT #### [facility] [address] [place] [address] USAMCHC Auto (RBC) [Mass/Vol]Ordered By: Domenico Betancourt on 37-16-0663IMNE (RBC) [Mass/Vol]32.2 g/dLLow32.5-35.6FSt. John of God HospitalMCV [Entitic volume] by Automated countOrdered By: Domenico Betancourt on 49-45-0414JEB (RBC) [Entitic vol]86.2 mWQkhgxn42.5-101Good Samaritan HospitalComment on above:Performed By: #### A1C WTH eA, DPQY59IR, TSH3, PT, CBC, ECIC04IXJ, BMP, PTT #### [facility] [address] [place] [address] USAMonocyte distribution width [Entitic volume] in Blood by AutomatedOrdered By: Domenico Betancourt on 66-90-5009Nfejvevp distribution width Auto (Bld) [Entitic vol]19.75 %0.00-20.00Good Samaritan HospitalMucus [Presence] in Urine by AutomatedOrdered By: Domenico Betancourt on 83-93-6163Wwiga Auto Ql (U)Rare [LPF]Good Samaritan HospitalNeutrophils [#/volume] in Blood by Automated countOrdered By: Domenico Betancourt on 63-07-8690Ykuhsxkqddp (Bld) [#/Vol]8.6 10*3/uLHigh1.8-7.7FSt. John of God HospitalComment on above:Performed By: #### A1C WTH eA, NTRM53JK, TSH3, PT, CBC, AZVQ35INY, BMP, PTT #### [facility] [address] [place] [address] USANitrite Test strip Ql (U)Ordered By: Domenico Betancourt on 56-80-6296Rrrfosv Ql (U)NegativeNegativeGood Samaritan HospitalNo Panel InformationOrdered By: Domenico Betancourt on 86-78-0258Fgpeybcry GFR (CKD-EPI)51.445 mL/MinGood Samaritan HospitalPharmacy Creatinine Clearance (Chem59.12Good Samaritan HospitalNucleated erythrocytes [Presence] in Blood by Automated countOrdered By: Domenico Betancourt on 06-18-2024 Nucleated RBC Auto Ql (Bld)0.1 /100{WBC}0-0.5FSt. John of God Hospital Platelet mean volume [Entitic volume] in Blood by Automated countOrdered By: Domenico Betancourt on 64-80-0032Omgdoobo mean volume (Bld) [Entitic vol]8.1 fL Normal6.6-10.1FSt. John of God HospitalComment on above:Performed By: #### A1C WTH eA, HASH67SP, TSH3, PT, CBC, JQVK68CVQ, BMP, PTT #### [facility] [address] [place] [address] USAPlatelets [#/volume] in Blood by Automated countOrdered By: Domenico Serafin on 36-46-1999Nfgxucvms (Bld) [#/Vol]255 10*3/uLNormal 150-450Good Samaritan HospitalComment on above:Performed By: #### A1C WTH eA, KMNM67MG, TSH3, PT, CBC, NLIV37KOO, BMP, PTT #### [facility] [address] [place] [address] USAPotassium [Moles/volume] in Serum or PlasmaOrdered By: Domenico Betancourt on 04-78-8029Objyanbkk [Moles/Vol]4.3 mmol/LNormal3.5-5.1 [facility]itan HospitalComment on above:Performed By: #### A1C WTH eA, FWPG99DP, TSH3, PT, CBC, CJNC83MQD, BMP, PTT #### [facility] [address] [place] [address] USAProtein Test strip (U) [Mass/Vol]Ordered By: Domenico Betancourt on 70-10-4042Vpmwcye (U) [Mass/Vol]NegativeNegativeGood Samaritan HospitalProtein [Mass/volume] in Serum or PlasmaOrdered By: Domenico Betancourt on 75-15-9877Hwclspl [Mass/Vol]7.4 g/dLNormal6.4-8.9Good Samaritan HospitalComment on above:Performed By: #### A1C WTH eA, JOAL22GG, TSH3, PT, CBC, UHZC88OUI, BMP, PTT #### [facility] [address] [place] [address] USAProthrombin Time INRon 25-97-0734OVH Coag (PPP) [Relative time]2.5 {INR}NormalThe Formerly [facility] Hospital Physician GroupComment on above:Result Comment: INR Therapeutic Range A) Pre- and [...] heart valves: 3 - 4.5 PERFORMED BY: [place] [address] PATHOLOGIST BUILDING ATTENDANT CORAL GOLD M.D.Performed By: #### PT #### [place] [id number] USAPT Coag (PPP) [Time]28.6 sHigh9.0-12.9The [facility] Hospital Physician GroupComment on above:Result Comment: A hematocrit value greater than 55% may lead to inaccurate results in coagulation testing. Patients having hematocrit values >55% require a special collection tube for coagulation studies. Please contact the laboratory at [phone] for redraw instructions.Performed By: #### PT #### [place] [address] USASerum globulin measurement by calculation (mass/volume) Ordered By: Domenico Betancourt on 88-29-2840Bvdcfhhf (S) [Mass/Vol]3.5 g/dLNormal [facility]itan HospitalComment on above:Performed By: #### A1C WTH eA, CCKG03UO, TSH3, PT, CBC, BWHO52XRI, BMP, PTT #### [place] [address] USASerum or plasma albumin/globulin mass ratioOrdered By: Domenico Betancourt on 47-30-2805Vvkkmcv/Globulin [Mass ratio]1.1 {ratio}Normal [facility] Samaritan HospitalComment on above:Performed By: #### A1C WTH eA, IDYK54IQ, TSH3, PT, CBC, HUWS72SWS, BMP, PTT #### [place] [address] USASerum or plasma anion gap determinationOrdered By: Domenico Betancourt on 30-69-2063Zfzwg gap [Moles/Vol]15.5 mmol/LHigh6.0-15.0[facility] Samaritan HospitalComment on above:Performed By: #### A1C WTH eA, DCWO02HF, TSH3, PT, CBC, TMLX62KUT, BMP, PTT #### [address] [place] [address] USASerum or plasma non-glucuronidated bilirubin measurement (mass/volume)Ordered By: Domenico Betancourt on 07-71-5625Fmjsjkfpa.indirect [Mass/Vol]0.4 mg/dLAccess Hospital Daytonodium [Moles/volume] in Serum or PlasmaOrdered By: Domenico Betancourt on 21-30-3820Ekvgld [Moles/Vol]130 mmol/RWjg156-763HsonhfhvvGood Samaritan HospitalComment on above:Performed By: #### A1C WTH eA, PLRP88FG, TSH3, PT, CBC, OVDU28TMP, BMP, PTT #### [place] [address] USASpecific gravity Test strip (U) [Rel density]Ordered By: Domenico Betancourt on 61-08-1593Ceedrwfk gravity (U) [Rel density]1.0141.001-1.030 [facility]itan HospitalTroponin I High Sensitivityon 06-18-2024 Troponin I High Qcxagsndztq14.8 pg/mLHigh0.0-20.0[facility] Comment on above:Result Comment: PERFORMED BY: [place] [address] PATHOLOGIST BUILDING ATTENDANT CORAL GOLD M.D.Performed By: #### HS TROP #### [place] [address] USATroponin I High Potohxxaxck33.7 pg/mLHigh0.0-20.0The [facility] Physician GroupComment on above:Result Comment: PERFORMED BY: [place] [address] PATHOLOGIST BUILDING ATTENDANT CORAL GOLD M.D.Performed By: #### A1C WTH eA, MTXJ49AR, TSH3, PT, CBC, ZBPY80VOF, BMP, PTT #### [place] [id number] USATroponin I.cardiac [Mass/volume] in Serum or Plasma by Detection limit <= 0.01 ng/Ordered By: Domenico Betancourt on 11-46-2201Lrssplgy I.cardiac DL <= 0.01 ng/mL [Mass/Vol]20.8 pg/mLHigh0.0-20.0Good Sam[facility]itan HospitalUrea nitrogen [Mass/volume] in Serum or PlasmaOrdered By: Domenico Betancourt on 86-91-3786Gvhb nitrogen [Mass/Vol]41 mg/dLRiver Park Hospital7-25Good Samaritan HospitalComment on above:Performed By: #### A1C WTH eA, UTHP28OV, TSH3, PT, CBC, CPFG66PWE, BMP, PTT #### [facility] [address] [place] [address] USAUrine appearanceOrdered By: Domenico Betancourt on 06-18-2024 Appearance (U)ClearNormalClearGood Samaritan HospitalComment on above: Order Comment: Name Collection Type:: Clean-Voided MidstreamPerformed By: #### A1C WTH eA, KNPZ48DC, TSH3, PT, CBC, BCCV12PPI, BMP, PTT #### [facility] [address] [place] [id number] USAUrobilinogen Test strip (U) [Mass/Vol]Ordered By: Domenico Betancourt on 56-71-0979Aezckgfvilcf (U) [Mass/Vol]Normal mg/dLElyria Memorial HospitalXR chest 1V portableon 15-64-9368QG chest 1V portable [facility] [place] [address] XRay Report Signed Patient: Nirmal Chaidez MR#: [id number] 9 : 1945 Acct:[id number] Age/Sex: 78 / M ADM Date: 06/18/24 [...] Norberto Villalta M.D.06/18/2024 4:24 PM Dictation Location: [facility]--13 Transcribed By: EVAN 06/18/241623 Dictated By: Norberto Villalta II, MD 06/18/241622 Signed By: 06/18/24 162[facility] Physician GrouppH of Urine by Test stripOrdered By: Domenico Betancourt on 19-02-5209iJ (U)5.5 [pH]Normal5.0-9.0[facility]aritan HospitalComment on above:Order Comment: Name Collection Type:: Clean- Voided MidstreamPerformed By: #### A1C WTH eA, VCUQ59WI, TSH3, PT, CBC, RNZJ95CXA, BMP, PTT #### [facility] [address] [place] [id number] USAAlanine aminotransferase [Enzymatic activity/volume] in Serum or PlasmaOrdered By: Marva Soriano on 87-45-0814QTV [Catalytic activity/Vol]8 U/LNormal7-52[facility] Samaritan HospitalComment on above: Performed By: #### A1C WTH eA, HTSS83OJ, TSH3, PT, CBC, IJLE86EJI, BMP, PTT #### [facility] [address] [place] [address] USAAlbumin [Mass/volume] in Serum or Plasma by Bromocresol green (BCG) dye binding methoOrdered By: Marva Soriano on 33-47-0778Micullq BCG dye [Mass/Vol]3.7 g/dL3.5-5.7FSt. John of God HospitalAlkaline phosphatase [Enzymatic activity/volume] in Serum or PlasmaOrdered By: Marva Soriano on 36-17-8277LDB [Catalytic activity/Vol]79 U/JBpgmpi43-744UbppytesnGood Samaritan HospitalComment on above:Result Comment: PERFORMED BY: [place] [address] PATHOLOGIST BUILDING ATTENDANT CORAL GOLD M.D.Performed By: #### A1C WTH eA, MWQW92VV, TSH3, PT, CBC, XZZO25WOA, BMP, PTT #### [place] [id number] USAAspartate aminotransferase [Enzymatic activity/volume] in Serum or PlasmaOrdered By: Marva Soriano on 88-74-0544OBB [Catalytic activity/Vol]11 U/PYtt00-87LytukegjgGood Samaritan HospitalComment on above: Performed By: #### A1C WTH eA, LIVA76BV, TSH3, PT, CBC, CDLU90HYQ, BMP, PTT #### [facility] [address] [place] [address] USABNP ser/plasOrdered By: Marva Soriano on 04-23-2024 Natriuretic peptide B (Bld) [Mass/Vol]38.0 pg/mLNormal5-100Good Samaritan HospitalComment on above:Result Comment: PERFORMED BY: [place] [address] PATHOLOGIST BUILDING ATTENDANT CORAL GOLD M.D.Performed By: #### A1C WTH eA, WNZO94QA, TSH3, PT, CBC, GTBS27XCC, BMP, PTT #### [place] [phone] USABilirubin.total [Mass/volume] in Serum or PlasmaOrdered By: Marva Soriano on 38-59-7081Zjvfsthwm [Mass/Vol]0.5 mg/dLNormal0.3-1.0 [facility]itan HospitalComment on above:Performed By: #### A1C WTH eA, CZVH01SZ, TSH3, PT, CBC, TVXQ80NJI, BMP, PTT #### [address] [address] USACalcium [Mass/volume] in Serum or PlasmaOrdered By: Marva Soriano on 18-19-3691Tyimkci [Mass/Vol]9.4 mg/dLNormal8.6-10.3FSt. John of God HospitalComment on above:Performed By: #### A1C WTH eA, JMMA69JY, TSH3, PT, CBC, AQVB38OGT, BMP, PTT #### [facility] [address] [place] [address] USACarbon dioxide, total [Moles/volume] in Serum or Plasma Ordered By: Marva Soriano on 09-71-4271RO4 [Moles/Vol]28.4 mmol/LMlmtoo47.0-31.0 [facility]itan HospitalComment on above:Performed By: #### A1C WTH eA, ABYY35LK, TSH3, PT, CBC, OOIY43UKP, BMP, PTT #### [facility] [address] [place] [phone] USAChloride [Moles/volume] in Serum or PlasmaOrdered By: Marva Soriano on 30-92-4551Ccrnfkgd [Moles/Vol]97 mmol/QIcj90-007TfyfpqxbwGood Samaritan HospitalComment on above:Performed By: #### A1C WTH eA, VFXZ52VU, TSH3, PT, CBC, BXEF86WNY, BMP, PTT #### [facility] [address] [place] [id number] USAComprehensive Metabolic Panelon 09-47-7600Zxrjzik [Mass/Vol]3.7 g/dLNormal3.5-5.7The [facility] Physician GroupComment on above: Performed By: #### A1C WTH eA, LZGC06JP, TSH3, PT, CBC, EKWM48EJH, BMP, PTT #### [facility] [address] [place] [id number] USAGFR/1.73 sq M.predicted MDRD (S/P/Bld) [Vol rate/Area] 52.342 mL/min/{1.73_m2}NormalThe Formerly [facility] Hospital Physician GroupComment on above: Performed By: #### A1C WTH eA, BRFY33YE, TSH3, PT, CBC, XGPA97BWP, BMP, PTT #### [facility] [address] [place] [address] USACreatinine [Mass/volume] in Serum or PlasmaOrdered By: Marva Soriano on 81-03-3133Xlytyvbxsn [Mass/Vol]1.38 mg/dLHigh0.70-1.30Good [facility]aritan HospitalComment on above:Performed By: #### A1C WTH eA, VOFR62YZ, TSH3, PT, CBC, XPBT17QCT, BMP, PTT #### [facility] [address] [place] [address] USAGlucose [Mass/volume] in Serum or PlasmaOrdered By: Marva Soriano on 89-33-5346Afaicrn [Mass/Vol]226 mg/xRRgro40-960ScfligsnhGood Samaritan HospitalComment on above:ADA recommended reference rangeRandom Glucose Reference Range is dependent on time and content of last meal. Glucose of more than 200 mg/dL in a nonstressed, ambulatory subject supports the diagnosisof Diabetes Mellitus.Result Comment: Random Glucose Reference Range is dependent on time and content of last meal. Glucose of more than 200 mg/dL in a nonstressed, ambulatory subject supports the diagnosis of Diabetes Mellitus. ADA recommended reference rangePerformed By: #### A1C WTH eA, WGNM07IC, TSH3, PT, CBC, NQCU33ZJR, BMP, PTT #### [facility] [address] [place] [address] USANo Panel InformationOrdered By: Marva Soriano on 18-41-4068Bboiimdud GFR (CKD-EPI)52.342 mL/MinGood Samaritan Hospital Pharmacy Creatinine Clearance (ChemN/[facility] Hospital - ColumbusPotassium [Moles/volume] in Serum or PlasmaOrdered By: Marva Soriano on 04-23-2024 Potassium [Moles/Vol]3.9 mmol/LNormal3.5-5.1FSt. John of God Hospital Comment on above:Performed By: #### A1C WTH eA, DDSM81LF, TSH3, PT, CBC, RXCC56MNX, BMP, PTT #### [facility] [address] [place] [address] USAProtein [Mass/volume] in Serum or PlasmaOrdered By: Marva Soriano on 16-19-9691Lqbogan [Mass/Vol]7.1 g/dLNormal6.4-8.9[facility]itan HospitalComment on above:Performed By: #### A1C WTH eA, SVWZ51SJ, TSH3, PT, CBC, GDQQ27FHR, BMP, PTT #### [facility] [address] [place] [address] USASerum globulin measurement by calculation (mass/volume) Ordered By: Marva Soriano on 56-36-2294Aprgldgi (S) [Mass/Vol]3.4 g/dLNormal [facility]itan HospitalComment on above:Performed By: #### A1C WTH eA, YAOV14VO, TSH3, PT, CBC, BVFH56CAI, BMP, PTT #### [facility] [address] [place] [address] USASerum or plasma albumin/globulin mass ratioOrdered By: Marva Soriano on 87-73-7334Clyahlj/Globulin [Mass ratio]1.1 {ratio}Normal [facility] Samaritan HospitalComment on above:Performed By: #### A1C WTH eA, FYID82JT, TSH3, PT, CBC, XAJO94YIW, BMP, PTT #### [facility] [address] [place] [address] USASerum or plasma anion gap determinationOrdered By: Mrava Soriano on 95-60-3575Ahwqe gap [Moles/Vol]13.5 mmol/LNormal6.0-15.0[facility]itan HospitalComment on above:Performed By: #### A1C WTH eA, TQHE68OD, TSH3, PT, CBC, YOAW18IQK, BMP, PTT #### [facility] [address] [place] [id number] USASodium [Moles/volume] in Serum or PlasmaOrdered By: Marva Soriano on 68-26-8869Xihjij [Moles/Vol]135 mmol/XLrx843-420BfgkgqwbyGood Samaritan HospitalComment on above:Performed By: #### A1C WTH eA, XRKU46GA, TSH3, PT, CBC, EWBV51QYZ, BMP, PTT #### [facility] [address] [place] [address] USAUrea nitrogen [Mass/volume] in Serum or PlasmaOrdered By: Marva Soriano on 72-42-2788Nnez nitrogen [Mass/Vol]42 mg/dL20 Johnson StreetComment on above:Performed By: #### A1C WTH eA, LHXS63BC, TSH3, PT, CBC, XAUU93DDC, BMP, PTT #### [facility] [address] [place] [address] USAXR abdomen 1Von 96-45-3362NI abdomen 1V[facility] Main [place] [address] [place] [address] XRay Report Signed Patient: Nirmal Chaidez MR#: [id number] 9 : 1945 Acct:[id number] Age/Sex: 78 / M ADM Date: 04/23/24 Loc: XD Room: Type: [facility] Attending Dr: Marva VALADEZ Copies to: [place] [...] Ping Vora M.D.04/23/2024 5:03 PM Dictation Location: [place] [address] Transcribed By: EVAN 04/23/24 170 Dictated By: Ping Vora MD 04/23/241700 Signed By: 04/23/241702[facility] Physician GroupActivated partial thromboplastin time (aPTT) in platelet poor plasma by coagulation aOrdered By: Ran Addison on 77-05-9208yQHO Coag (PPP) [Time]33.4 s25.1-36.5FSt. John of God HospitalAlanine aminotransferase [Enzymatic activity/volume] in Serum or PlasmaOrdered By: Ran Addison on 04-16-8919RPT [Catalytic activity/Vol]8 U/L7-52Good [facility]aritan HospitalAlbumin [Mass/volume] in Serum or Plasma by Bromocresol green (BCG) dye binding methoOrdered By: Ran Addison on 64-24-3802Aoxxfsc BCG dye [Mass/Vol]3.6 g/dL3.5-5.7FSt. John of God HospitalAlkaline phosphatase [Enzymatic activity/volume] in Serum or PlasmaOrdered By: Ran Addison on 16-74-7593XUS [Catalytic activity/Vol]87 U/L34-104 [facility]aritan HospitalAspartate aminotransferase [Enzymatic activity/volume] in Serum or PlasmaOrdered By: Ran Addison on 05-14-2023 AST [Catalytic activity/Vol]13 U/C56-33HbahdvdglGood Samaritan Hospital Basophils Auto (Bld) [#/Vol]Ordered By: Ran Addison on 33-49-4910Nmnxvjsoj (Bld) [#/Vol]0.1 10*3/uL0.0-0.2FSt. John of God HospitalBasophils/100 WBC Auto (Bld)Ordered By: Ran Addison on 43-87-1026Octbhbcos/100 WBC (Bld) 0.5 %.Good Samaritan HospitalBilirubin.total [Mass/volume] in Serum or PlasmaOrdered By: Ran Addison 24-93-5654Auemyzapg [Mass/Vol]0.6 mg/dL 0.3-1.0[facility] Sam[facility]itan HospitalCalcium [Mass/volume] in Serum or Plasma Ordered By: Ran Addison 50-37-9386Nrzpalf [Mass/Vol]8.8 mg/dL8.6-10.3 [facility]itan HospitalCarbon dioxide, total [Moles/volume] in Serum or PlasmaOrdered By: Ran Addison on 92-45-7160TY1 [Moles/Vol]25.7 mmol/L 21.0-31.0[facility]itan HospitalChloride [Moles/volume] in Serum or PlasmaOrdered By: Ran Addison on 41-94-6098Dsarzkrs [Moles/Vol]99 mmol/L 98-107Good Samaritan HospitalCreatinine [Mass/volume] in Serum or PlasmaOrdered By: Ran Addison on 30-63-4750Ypvzisoxrn [Mass/Vol]1.70 mg/dL 0.70-1.30[facility] HospitalEosinophils Auto (Bld) [#/Vol]Ordered By: Ran Addison on [id number] (Bld) [#/Vol]0.2 10*3/uL0.0-0.45 [facility] HospitalEosinophils/100 WBC Auto (Bld)Ordered By: Ran Addison on 67-94-4011Zbedwknaqtc/100 WBC (Bld)1.7 %.[facility] HospitalErythrocyte distribution width Auto (RBC) [Ratio]Ordered By: Ran Addison on 73-69-1575Hyvayakxjvv distribution width (RBC) [Ratio]15.7 %12.0-14.8[facility] HospitalEthanol [Mass/volume] in Serum or PlasmaOrdered By: Ran Addison on 93-93-4269Xjjyrza [Mass/Vol]mg/dL [facility] HospitalEthanol [Mass/Vol]TNPGood Samaritan HospitalComment on above:Test not performedGlobulin Calc (S) [Mass/Vol]Ordered By: Ran Addison on 51-92-2828Oozyecyr (S) [Mass/Vol]3.2 g/dLGood Samaritan HospitalGlucose Glucometer (BldC) [Mass/Vol]Ordered By: Ran Addison on [id number] [Mass/Vol]175 mg/dLGood Samaritan HospitalComment on above:Random Glucose Reference Range is dependent on time and content of last meal. Glucose of more than 200 mg/dL in a nonstressed, ambulatory subject supports the diagnosis of Diabetes Mellitus.Glucose [Mass/volume] in Serum or PlasmaOrdered By: Ran Addison on 05-14-2023 Glucose [Mass/Vol]156 mg/vJ56-737BhacejbhpGood Samaritan HospitalComment on above:ADA recommended reference rangeRandom Glucose Reference Range is dependent on time and content of last meal. Glucose of more than 200 mg/dL in a nonstressed, ambulatory subject supports the diagnosisof Diabetes Mellitus. Hematocrit Auto (Bld) [Volume fraction]Ordered By: Ran Addison on 67-09-0736Muaciuirsr (Bld) [Volume fraction]40.1 %38.8-50.0[facility] HospitalHemoglobin [Mass/volume] in BloodOrdered By: Ran Addison on 11-26-0848Tczfzjhqto (Bld) [Mass/Vol]13.0 g/dL13.0-17.0[facility] HospitalLaboratory - CoagulationOrdered By: Ran Addison on 13-95-8863CS Coag (PPP) [Time]26.6 s9.0-12.9[facility] Leukocytes [#/volume] corrected for nucleated erythrocytes in Blood by Automated counOrdered By: Ran Addison on 27-43-4729RVH corrected for nucl RBC Auto (Bld) [#/Vol]10.5 10*3/uL4.1-10.5FSt. John of God HospitalLymphocytes Auto (Bld) [#/Vol]Ordered By: Ran Addison on 55-45-6567Zdplotantvz (Bld) [#/Vol]1.6 10*3/uL1.00-4.8[facility] HospitalLymphocytes/100 WBC Auto (Bld)Ordered By: Ran Addison on 11-83-3046Yjxusjeyebi/100 WBC (Bld) 15.6 %.[facility] Auto (RBC) [Entitic mass]Ordered By: Ran Addison on 10-68-6419BOQ (RBC) [Entitic mass]29.8 pg27.5-35.2FSt. John of God HospitalMCHC Auto (RBC) [Mass/Vol]Ordered By: Ran Addison on 45-61-1708HBFE (RBC) [Mass/Vol]32.5 g/dL32.5-35.6FSt. John of God HospitalMCV Auto (RBC) [Entitic vol]Ordered By: Ran Addison on 09-51-6810GMV (RBC) [Entitic vol]91.8 fL83.5-101[facility] HospitalMonocyte distribution width [Entitic volume] in Blood by AutomatedOrdered By: Ran Addison on 10-67-3312Gfpmbyid distribution width Auto (Bld) [Entitic vol]24.22 % 0.00-20.00[facility]itan HospitalComment on above:For adults in ED, MDW > 20.0 may be associated with a higher risk of sepsis during the first 12 h rs of hospital admissionMonocytes Auto (Bld) [#/Vol]Ordered By: Ran Addison on 42-16-5782Uctrgarwt (Bld) [#/Vol]0.4 10*3/uL0.0-0.8[facility] HospitalMonocytes/100 WBC Auto (Bld)Ordered By: Ran Addison on 28-79-0182Uvtfuwpnw/100 WBC (Bld)4.0 %.[facility] Neutrophils Auto (Bld) [#/Vol]Ordered By: Ran Addison on 05-14-2023 Neutrophils (Bld) [#/Vol]8.2 10*3/uL1.8-7.7FSt. John of God Hospital Neutrophils/100 WBC Auto (Bld)Ordered By: Ran Addison on 05-14-2023 Neutrophils/100 WBC (Bld)78.2 %.[facility] HospitalNo Panel InformationOrdered By: Ran Addison on 41-79-5247Xpeqfrhbw GFR (CKD-EPI) 41.007 mL/MinGood Samaritan HospitalPharmacy Creatinine Clearance (Chem50.02[facility] HospitalNucleated erythrocytes [Presence] in Blood by Automated countOrdered By: Ran Addison on 98-21-0006Shasehbml RBC Auto Ql (Bld)0.1 /100{WBC}0-0.5FSt. John of God HospitalPlatelet mean volume Auto (Bld) [Entitic vol]Ordered By: Ran Addison on 05-14-2023 Platelet mean volume (Bld) [Entitic vol]7.6 fL6.6-10.1FSt. John of God HospitalPlatelet poor plasma international normalized ratio (INR) by coagulation assay (relatOrdered By: Ran Addison on 35-00-6239OND Coag (PPP) [Relative time]2.3 {INR}[facility] HospitalComment on above:INR Therapeutic Range A) Pre- and Peroperative OAT started two weeks before surgery. NOT HIP SURGERY: 1.5 - 2.5 HIP SURGERY: 2 - 3B) Primary and secondary prevention of venous THROMBOSIS: 2 - 3C) Active venous thrombosis, pulmonary embolismand prevention of recurrent venous thrombosis: 2 - 3D) Prevention of arterial thromboembolismincluding patients with mechanical heart valves: 3 - 4.5Platelets Auto (Bld) [#/Vol]Ordered By: Ran Addison on 66-56-7286Qbzcatlsi (Bld) [#/Vol]225 10*3/eC294-644CvgcctwmcGood Samaritan HospitalPotassium [Moles/volume] in Serum or PlasmaOrdered By: Ran Addison on 05-14-2023 Potassium [Moles/Vol]3.7 mmol/L3.5-5.1FSt. John of God HospitalProtein [Mass/volume] in Serum or PlasmaOrdered By: Ran Addison on 05-14-2023 Protein [Mass/Vol]6.8 g/dL6.4-8.9[facility] HospitalRBC Auto (Bld) [#/Vol]Ordered By: Ran Addison on 58-19-3109IYB (Bld) [#/Vol]4.36 10*6/uL 3.90-5.60Access Hospital Daytonerum or plasma albumin/globulin mass ratioOrdered By: Ran Addison on 35-45-8731Jzyqrhp/Globulin [Mass ratio]1.1 {ratio}Access Hospital Daytonerum or plasma anion gap determination Ordered By: Ran Addison on 37-82-5369Cbakv gap [Moles/Vol]14.0 mmol/L 6.0-15.0Access Hospital Daytonodium [Moles/volume] in Serum or PlasmaOrdered By: Ran Addison on 39-08-5208Nvcvxl [Moles/Vol]135 mmol/L 136-145[facility] HospitalTroponin I.cardiac [Mass/volume] in Serum or Plasma by Detection limit <= 0.01 ng/Ordered By: Ran Addison on 24-47-7969Qrktiipr I.cardiac DL <= 0.01 ng/mL [Mass/Vol]18.4 pg/mL0.0-20.0 [facility] HospitalUrea nitrogen [Mass/volume] in Serum or Plasma Ordered By: Ran Addison on 60-15-6151Eoad nitrogen [Mass/Vol]38 mg/dL7-25 [facility] HospitalWBC Auto (Bld) [#/Vol]Ordered By: Ran Addison on 69-50-6396UIN (Bld) [#/Vol]10.5 10*3/uL4.1-10.5FSt. John of God HospitalTobacco Screening.on 34-79-8223Znnpt depression screening assessmentNoPeaceHealth [facility] DO Work Phone: Fall risk assessmenta) No falls within the last year [facility] [facility] DO Work Phone: Tobacco use status CPHSb) NoMNavos [facility] [place] [facility] DO Work Phone: GLYCOHEMOGLOBIN A1Con [id number] RECOMMENDATIONSEE BELOWLima City HospitalComment on above:Result Comment: ADA RECOMMENDED LIMIT 4.0 - 6.0 ADA THERAPEUTIC TARGET < 7.0 ACTION SUGGESTED > 7.0Performed By: #### A1C #### [place] [facility] [address] [place] [address] Dr. Cuco GilliamGlucose [Mass/Vol]177 mg/dLLima City HospitalComment on above:Performed By: #### A1C #### [place] [facility] [address] [address] [address] Cuco GilliamHbA1c (Bld) [Mass fraction]7.8 %Critically high4.5-6.2The [place] Municipal HospitalComment on above:Performed By: #### A1C #### [place] [facility] [address] [address] [address] Cuco CaputoC AUTO DIFFon 29-94-9375JTZE #0.0 103/ulNormal0.0-0.1The [place] [facility] HospitalComment on above:Performed By: #### CBC #### [place] [facility] [address] [place] [address] Dr. Cuco GilliamBasophils/100 WBC (Bld)0.4 %Normal0.2-2.0[facility] [place] [facility] Comment on above:Performed By: #### CBC #### [place] [facility] [address] [place] [address] Dr. Cuco Ontiveros #0.1 103/ulNormal0.0-0.7The [place] Municipal HospitalComment on above: Performed By: #### CBC #### [place] [facility] [address] [place] [address] Dr. Cuco Pattonosinophils/100 WBC (Bld)0.9 %Normal0.9-7.0[facility] [place] [facility] Comment on above:Performed By: #### CBC #### [place] [facility] [address] [place] [address] Dr. Cuco Pattonrythrocyte distribution width (RBC) [Ratio]15.9 %Critically high 11.0-15.0The [place] [facility] HospitalComment on above:Performed By: #### CBC #### [place] [facility] [address] [place] [address] Dr. Cuco GilliamHematocrit (Bld) [Volume fraction]47.8 %Nzooae45.0-54.0The [place] [facility] HospitalComment on above:Performed By: #### CBC #### [place] [facility] [address] [place] [address] Dr. Cuco GilliamHemoglobin (Bld) [Mass/Vol]14.9 g/qMVkspnm50.0-18.0The [place] [facility] HospitalComment on above:Performed By: #### CBC #### [place] [facility] [address] [place] [address] Dr. Cuco Heck #0.05 10e3/ulCritically high0.00-0.03[facility] [place] [facility] Comment on above:Performed By: #### CBC #### [place] [facility] [address] [address] [address] Cuco Heck %0.5 %Normal0.0-0.5The [facility] on above: Performed By: #### CBC #### [place] [facility] [address] [place] [address] Dr. Cuco Lopez #1.8 103/ulNormal1.2-3.8The [place] [facility] HospitalComhutzel women's hospital on above:Performed By: #### CBC #### [place] [facility] [address] [place] [address] Dr. Cuco Garciahocytes/100 WBC (Bld)17.3 %Critically low20.5-60.0The [facility] on above:Performed By: #### CBC #### [place] [facility] [address] [place] [address] Dr. Cuco MyersUAL DIFF REQNONormalThe [place] Municipal HospitalComment on above: Performed By: #### CBC #### [place] [facility] [address] [place] [address] Dr. Cuco Bunch (RBC) [Entitic mass]28.4 lzZypubl32.9-34.0The [facility] on above:Performed By: #### CBC #### [facility] [address] [place] [address] Dr. Cuco Bunch (RBC) [Mass/Vol]31.2 g/dNOuowru17.9-35.2The [facility] on above:Performed By: #### CBC #### [place] [facility] [address] [place] [address] Dr. Cuco Bunch (RBC) [Entitic vol]91.2 iRHqrujb06.0-94.0The [facility] on above:Performed By: #### CBC #### [place] [facility] [address] [place] [address] Dr. Cuco Wise #0.7 103/ulNormal0.3-0.8The [place] [facility] HospitalComhutzel women's hospital on above:Performed By: #### CBC #### [place] [facility] [address] [address] [address] Cuco Velazquezocytes/100 WBC (Bld)6.8 %Normal1.7-12.0[facility] Comment on above:Performed By: #### CBC #### [place] [facility] [address] [place] [address] Dr. Cuco ReyesUT #7.7 103/ulCritically high1.4-6.5[facility] [place] [facility] Comment on above:Performed By: #### CBC #### [place] [facility] [address] [place] [address] Dr. Cuco Reyesutrophils/100 WBC (Bld)74.1 %Jouesk47.0-75.0[facility] TownshipComment on above:Performed By: #### CBC #### [place] [facility] [address] [place] [address] Dr. Cuco GilliamPlatelet mean volume (Bld) [Entitic vol]9.1 fLCritically low 9.5-13.5The [place] [facility] HospitalComment on above:Performed By: #### CBC #### [facility] [address] [place] [address] Dr. Cuco GilliamPLT218 103/izNjpqqy695-708Jzh [place] Municipal HospitalComment on above: Performed By: #### CBC #### [place] [facility] [address] [place] [address] Dr. Cuco GilliamRBC5.24 106/ulNormal4.70-6.10The [place] [facility] HospitalComment on above:Performed By: #### CBC #### [place] [facility] [address] [place] [address] Dr. Cuco GilliamWBC10.4 103/ulNormal4.0-11.0The [place] [facility] HospitalComment on above:Performed By: #### CBC #### [place] [facility] [address] [place] [address] Dr. Cuco GilliamLIPID PROFILEon 64-87-8539AXIO-HDL RATIO NORMSEE [facility] HospitalComment on above:Result Comment: 3.3 - 4.4 LOW RISK 4.4 - 7.1 AVERAGE RISK 7.1 - 11.0 MODERATE RISK >11.0 HIGH RISKPerformed By: #### BMP, LIPID #### [place] [facility] [address] [address] [address] Ccuo GilliamCholesterol [Mass/Vol]142 mg/dLNormal<=200The [place] [facility] Comment on above:Performed By: #### BMP, LIPID #### [place] [facility] [address] [address] [address] Cuco GilliamCholesterol in HDL [Mass/Vol]59 mg/bWDnukyw34-63Inr [place] Municipal HospitalComment on above:Performed By: #### BMP, LIPID #### [place] [facility] [address] [place] [address] Dr. Cuco GilliamCholesterol in LDL [Mass/Vol]69.4 mg/dLLima City HospitalComment on above:Performed By: #### BMP, LIPID #### [place] [facility] [address] [place] [address] Dr. Cuco Sueesterdelfina.total/Cholesterol in HDL [Mass ratio]2.4 {ratio} NormalThe [place] Municipal HospitalComment on above:Performed By: #### BMP, LIPID #### [place] [facility] [address] [place] [address] Dr. Cuco GilliamHDL NORMAL> or = 60 mg/dl - LOW CARDIOVASCULAR RISK <40 mg/dl - HIGH CARDIOVASCULAR RISKLima City HospitalComment on above:Performed By: #### BMP, LIPID #### [place] [facility] [address] [place] [address] Dr. Cuco GilliamLDL CALC NORMALSEE BELOWLima City HospitalComment on above:Result Comment: <100 mg/dl OPTIMAL 100 - 129 mg/dl NEAR OR ABOVE OPTIMAL 130 - 159 mg/dl BORDERLINE HIGH 160 - 189 mg/dl HIGH >190 mg/dl VERY HIGH Performed By: #### BMP, LIPID #### [place] [facility] [address] [place] [address] Dr. Cuco GilliamTriglyceride [Mass/Vol]68 mg/dLNormal<=150The [place] [facility] Comment on above:Performed By: #### BMP, LIPID #### [place] [facility] [address] [place] [address] Dr. Cuco GilliamVLDL CALC13.6 mg/dLNormalThe [place] [facility] HospitalComment on above: Performed By: #### BMP, LIPID #### [place] [facility] [address] [place] [address] Dr. Cuco ElROALBUMIN, RAND URon 47-00-6897tGXR9.0 mg/LNormal<=30.0The [place] [facility] HospitalComment on above:Performed By: #### MALBR #### [place] [facility] [address] [place] [address] Dr. Cuco GilliamPROF CHEM 8 (BAS METB)on 38-85-9774Civsr gap [Moles/Vol]8.2 mmol/LNormalThe [place] [facility] HospitalComment on above:Performed By: #### BMP, LIPID #### [place] [facility] [address] [place] [address] Dr. Cuco GilliamCalcium [Mass/Vol]9.2 mg/dLNormal8.5-10.1The [place] [facility] Comment on above:Performed By: #### BMP, LIPID #### [facility] [address] [place] [address] Dr. Cuco GilliamChloride [Moles/Vol]101 mmol/CVtxtfd82-079Meu [place] [facility] Comment on above:Performed By: #### BMP, LIPID #### [place] [facility] [address] [place] [address] Dr. Cuco GilliamCO2 [Moles/Vol]34.8 mmol/LCritically high21.0-32.0The [place] [facility] HospitalComment on above:Performed By: #### BMP, LIPID #### [facility] [address] [place] [address] Dr. Cuco GilliamCreatinine [Mass/Vol]1.10 mg/dLNormal0.70-1.30The [place] [facility] HospitalComment on above:Performed By: #### BMP, LIPID #### [facility] [address] [address] [address] Norwood ChangEGFR-AF SAMOAN>60Normal>=60The [place] [facility] HospitalComment on above:Performed By: #### BMP, LIPID #### [facility] [address] [address] [address] Cuco PattonGFR-NON AF SAMOAN>60Normal>=60The [place] [facility] HospitalComment on above:Performed By: #### BMP, LIPID #### [place] [facility] [address] [address] [address] Cuco GilliamGlucose [Mass/Vol]120 mg/dLCritically rctu14-266Hnn [place] [facility] HospitalComment on above:Performed By: #### BMP, LIPID #### [facility] [address] [place] [address] Dr. Cuco GilliamPotassium [Moles/Vol]4.0 mmol/LNormal3.5-5.1[facility] Comment on above:Performed By: #### BMP, LIPID #### [facility] [address] [place] [address] Dr. Cuco GilliamSodium [Moles/Vol]140 mmol/PPdvwgl066-017Avx [place] [facility] Comment on above:Performed By: #### BMP, LIPID #### [facility] [address] [place] [address] Dr. Cuco GilliamUrea nitrogen [Mass/Vol]20.0 mg/dLCritically high7.0-18.0The [place] [facility] HospitalComment on above:Performed By: #### BMP, LIPID #### [facility] [address] [place] [address] Dr. Cuco GilliamUrea nitrogen/Creatinine [Mass ratio]18.2 mg/mgNoalThe [place] [facility] HospitalComment on above:Performed By: #### BMP, LIPID #### [facility] [address] [place] [address] Dr. Cuco GilliamXR KUB 1 VIEWon 63-41-4089FK KUB 1 VIEWEXAMINATION: XR KUB 1 VIEW HISTORY: Kidney stone [...] Electronically authenticated by: DAVONTE NUNEZ Date: 2022-10-28 11:46Lima City HospitalGLYCOHEMOGLOBIN A1Con [id number] RECOMMENDATIONSEE BELOW NormalThe [place] [facility] HospitalComhutzel women's hospital on above:Result Comment: ADA RECOMMENDED LIMIT 4.0 - 6.0 ADA THERAPEUTIC TARGET < 7.0 ACTION SUGGESTED > 7.0Performed By: #### A1C #### [facility] [address] [address] [address] Cuco GilliamGlucose [Mass/Vol]146 mg/dLNoCleveland Clinic Marymount HospitalComment on above:Performed By: #### A1C #### [place] [facility] [address] [address] [address] Cuco GilliamHbA1c (Bld) [Mass fraction]6.7 %Critically high4.5-6.2The [place] [facility] HospitalComment on above:Performed By: #### A1C #### [facility] [address] [address] [address] Cuco GilliamActivated partial thromboplastin time (aPTT) in platelet poor plasma by coagulation aOrdered By: Domenico Betancourt on 66-08-5557aWCN Coag (PPP) [Time]35.5 s25.1-36.5FSt. John of God HospitalAmphetamine Screen Ql (U) Ordered By: Domenico Betancourt on 13-77-5756Zthvepaepifa Ql (U)NegativeNegative [facility] HospitalBarbiturates [Presence] in UrineOrdered By: Domenico Betancourt on 95-53-6621Faqhqwmepxql Ql (U)NegativeNegativeGood Samaritan HospitalBasophils Auto (Bld) [#/Vol]Ordered By: Domenico Betancourt on 53-35-7559Mjoiexjhx (Bld) [#/Vol]0.1 10*3/uL0.0-0.2FSt. John of God HospitalBasophils/100 WBC Auto (Bld)Ordered By: Domenico Betancourt on 08-24-2022 Basophils/100 WBC (Bld)0.9 %.[facility] HospitalBenzodiazepines [Presence] in UrineOrdered By: Domenico Betancourt on 81-57-4948Xkkkhfgzgidkjqr Ql (U)NegativeNegHolmes County Joel Pomerene Memorial HospitalBlood hemoglobin measurement (mass/volume)Ordered By: Domenico Betancourt on 23-43-9952Htcjxmpbig (Bld) [Mass/Vol]13.1 g/dL13.0-17.0[facility] HospitalBlmayo clinic hospital leukocytes automated count (number/volume)Ordered By: Domenico Betancourt on 80-96-9755ETQ (Bld) [#/Vol]6.1 10*3/uL4.5-11.0[facility] HospitalCOVID-19 BRANDON Ordered By: Domenico Betancourt on 91-54-9230CYFT-CoV+SARS-CoV-2 (COVID-19) Ag IA.rapid Ql (Resp)NegativeNegHolmes County Joel Pomerene Memorial HospitalComment on above:This is a duplicate Brandon SARS Antigen (BERNARD) result to be used for statistical tracking purpose only.Cannabinoids [Presence] in Urine by Screen methodOrdered By: Domenico Betancourt on 57-80-7415Hfzxuxjyyvew Screen Ql (U) NegativeNegHolmes County Joel Pomerene Memorial HospitalComment on above:These are unconfirmed results and should not be used for legal purposes. Drug Cut-Off Concentration: AMPH 1000 ng/mL SHON 200 ng/mL SRAVANTHI 200 ng/mL COCM 300 ng/mL OP 300 ng/mL PCP 25 ng/mL THC 20 ng/mLCreatine kinase [Enzymatic activity/volume] in Serum or PlasmaOrdered By: Domenico Betancourt on 93-19-1892TV [Catalytic activity/Vol]49 U/E43-527HpoelnzttGood Samaritan HospitalCreatinine and Glomerular filtration rate.predicted panel (S/P/Bld)Ordered By: Domenico Betancourt on 49-85-1561Ekqkccgbsf [Mass/Vol]1.13 mg/dL0.64-1.27[facility] HospitalEosinophils Auto (Bld) [#/Vol]Ordered By: Domenico Betancourt on 08-24-2022 Eosinophils (Bld) [#/Vol]0.1 10*3/uL0.0-0.45[facility] Eosinophils/100 WBC Auto (Bld)Ordered By: Domenico Betancourt on 08-24-2022 Eosinophils/100 WBC (Bld)1.4 %.[facility] HospitalErythrocyte distribution width Auto (RBC) [Ratio]Ordered By: Domenico Betancourt on 08-24-2022 Erythrocyte distribution width (RBC) [Ratio]15.9 %12.0-14.8[facility] HospitalEstimated glomerular filtration rate (GFR) non- Ordered By: Domenico Betancourt on 71-72-4728SXO/1.73 sq M.predicted among non- blacks MDRD (S/P/Bld) [Vol rate/Area]> 60 mL/MinGood Samaritan HospitalGlucose Glucometer (BldC) [Mass/Vol]Ordered By: Domenico Betancourt on 78-03-0978Culoyci [Mass/Vol]133 mg/dLGood Samaritan HospitalComment on above:Random Glucose Reference Range is dependent on time and content of last meal. Glucose of more than 200 mg/dL in a nonstressed, ambulatory subject supports the diagnosis of Diabetes Mellitus.Hematocrit Auto (Bld) [Volume fraction]Ordered By: Domenico Betancourt on 64-37-7183Dddlobljcv (Bld) [Volume fraction]40.8 %38.8-50.0[facility] HospitalLaboratory - Chemistry and Chemistry - challengeOrdered By: Domenico Betancourt on 45-59-7803Tkvdze [Catalytic activity/Vol]23.0 U/B56-87MxzhhglsgGood Samaritan HospitalLaboratory - CoagulationOrdered By: Domenico Betancourt on 56-87-6613QR Coag (PPP) [Time]30.6 s9.0-12.9[facility] HospitalLaboratory - Drug toxicologyOrdered By: Domenico Betancourt on 15-88-4589Obslfah Ql (U)NegativeNegativeGood Samaritan HospitalLaboratory - Hematology and Cell countsOrdered By: Domenico Serafin on 41-83-0862Jmjnpghaj RBC/100 WBC (Bld) [Ratio]0.0 %0-0.5 [facility] HospitalLaboratory - Microbiology and Antimicrobial susceptibilityOrdered By: Domenico Betancourt on 39-27-7523JBAZ-CoV-2 (COVID-19) RNA NA+probe Ql (Unsp spec)N/AFSt. John of God HospitalLymphocytes Auto (Bld) [#/Vol]Ordered By: Domenico Betancourt on 89-22-5422Enckuwvdnqj (Bld) [#/Vol]0.9 10*3/uL1.00-4.8[facility] HospitalLymphocytes/100 WBC Auto (Bld)Ordered By: Domenico Betancourt on 75-38-2718Zldootxobnw/100 WBC (Bld) 14.1 %.[facility] InstituteH Auto (RBC) [Entitic mass]Ordered By: Domenico Betancourt on 44-08-9407QRN (RBC) [Entitic mass]28.7 pg27.5-35.2FSt. John of God HospitalMCHC Auto (RBC) [Mass/Vol]Ordered By: Domenico Betancourt on 06-92-8352ABZY (RBC) [Mass/Vol]32.1 g/dL32.5-35.6FSt. John of God HospitalMCV Auto (RBC) [Entitic vol]Ordered By: Domenico Betancourt on 83-60-6108DMX (RBC) [Entitic vol]89.3 fL83.5-101[facility] HospitalMonocytes Auto (Bld) [#/Vol]Ordered By: Domenico Betancourt on 89-91-9258Hzlsmykqf (Bld) [#/Vol]0.5 10*3/uL0.0-0.8[facility] HospitalMonocytes/100 WBC Auto (Bld)Ordered By: Domenico Betancourt on 66-10-3799Vfeeboduh/100 WBC (Bld)8.2 %. [facility] HospitalNeutrophils Auto (Bld) [#/Vol]Ordered By: Domenico Betancourt on 28-05-9030Shxwlbbkxve (Bld) [#/Vol]4.6 10*3/uL1.8-7.7 [facility] HospitalNeutrophils/100 WBC Auto (Bld)Ordered By: Domenico Betancourt on 81-92-2635Iusdjdgbott/100 WBC (Bld)75.4 %.[facility] HospitalNo Panel InformationOrdered By: Domenico Betancourt on 08-24-2022 Estimated GFR ()> 60 mL/MinGood Samaritan Hospital Comment on above:GFR estimated reference range: According to KDOQI guidelines, <60 ml/min/1.73m2 is sufficient todiagnose a patient with chronic kidney disease.Pharmacy Creatinine Clearance (Chem77.86[facility] HospitalBedside Glucose CommentGlu2: cleaned meterAccess Hospital DaytonARS Antigen (LFIA)[facility] HospitalPhencyclidine Screen Ql (U)Ordered By: Domenico Betancourt on 80-02-6905Msjxtcrlhejhk Ql (U)Negative NegativeGood Samaritan HospitalPlatelet mean volume Auto (Bld) [Entitic vol]Ordered By: Domenico Betancourt on 26-00-8026Umqjshvs mean volume (Bld) [Entitic vol]8.2 fL6.6-10.1FSt. John of God HospitalPlatelet poor plasma international normalized ratio (INR) by coagulation assay (relatOrdered By: Domenico Betancourt on 61-91-0815VDW Coag (PPP) [Relative time]2.7 {INR} [facility] HospitalComment on above:INR Therapeutic Range A) Pre- and Peroperative OAT started two weeks before surgery. NOT HIP SURGERY: 1.5 - 2.5 HIP SURGERY: 2 - 3B) Primary and secondary prevention of venous THROMBOSIS: 2 - 3C) Active venous thrombosis, pulmonary embolismand prevention of recurrent venous thrombosis: 2 - 3D) Prevention of arterial thromboembolismincluding patients with mechanical heart valves: 3 - 4.5Platelets Auto (Bld) [#/Vol] Ordered By: Domenico Betancourt on 48-74-5085Epnfpayes (Bld) [#/Vol]170 10*3/uL 150-450Good [facility]aritan HospitalRBC Auto (Bld) [#/Vol]Ordered By: Domenico Betancourt on 56-61-3281HDH (Bld) [#/Vol]4.57 10*6/uL3.90-5.60Access Hospital Daytonerum or plasma amylase measurement (enzymatic activity/volume)Ordered By: Domenico Betancourt on 36-27-3679Xjkvkqi [Catalytic activity/Vol]30 U/W62-836HhmlfgvkaAccess Hospital Daytonerum or plasma anion gap determinationOrdered By: Domenico Betancourt on 94-86-5413Pajel gap [Moles/Vol] 11.9 mmol/L6.0-15.0Access Hospital Daytonerum or plasma aspartate aminotransferase measurement (enzymatic activity/volume)Ordered By: Domenico Betancourt on 66-51-0337MHG [Catalytic activity/Vol]16 U/C92-46GudtqngueAccess Hospital Daytonerum or plasma calcium measurement (mass/volume)Ordered By: Domenico Betancourt on 00-53-7848Witpres [Mass/Vol]8.8 mg/dL8.2-10.2FSamaritan Hospitalerum or plasma chloride measurement (moles/volume) Ordered By: Domenico Betancourt on 11-01-0985Srpicurl [Moles/Vol]99 mmol/L95-114 [facility] Daytonerum or plasma ethanol measurement (mass/volume)Ordered By: Domenico Betancourt on 05-12-8185Tnzwxhg [Mass/Vol]mg/dL [facility]aritan HospitalEthanol [Mass/Vol]TNPGood Samaritan HospitalComment on above:Test not performedSerum or plasma glucose measurement (mass/volume)Ordered By: Domenico Betancourt on 06-98-1791Unvgzut [Mass/Vol]149 mg/rH55-804RasdmmphhGood Samaritan HospitalComment on above:ADA recommended reference rangeRandom Glucose Reference Range is dependent on time and content of last meal. Glucose of more than 200 mg/dL in a nonstressed, ambulatory subject supports the diagnosisof Diabetes Mellitus.Serum or plasma potassium measurement (moles/volume)Ordered By: Domenico Betancourt on 62-66-9515Mmgdckoek [Moles/Vol]3.8 mmol/L3.5-5.1FSamaritan Hospitalerum or plasma sodium measurement (moles/volume)Ordered By: Domenico Betancourt on 08-24-2022 Sodium [Moles/Vol]135 mmol/P484-344RjhmgoucqAccess Hospital Daytonerum or plasma total carbon dioxide measurement (moles/volume)Ordered By: Domenico Betancourt on 39-28-9630OA5 [Moles/Vol]27.9 mmol/L22.0-30.0[facility] Daytonerum or plasma urea nitrogen measurement (mass/volume)Ordered By: Domenico Betancourt on 57-06-7181Zcsw nitrogen [Mass/Vol]13 mg/dL9-23Good Samaritan HospitalUrine cocaine detectionOrdered By: Domenico Betancourt on 33-81-7263Qfcntlg Ql (U)NegativeNegativeGood Samaritan Hospital Activated partial thromboplastin time (aPTT) in platelet poor plasma by coagulation aOrdered By: Lalito Silva on 33-46-1587yFIG Coag (PPP) [Time]30.9 s25.1-36.5FSt. John of God HospitalBasophils Auto (Bld) [#/Vol]Ordered By: Lalito Silva on 66-51-2170Jhjiuvtlx (Bld) [#/Vol]0.1 10*3/uL0.0-0.2 [facility]itan HospitalBasophils/100 WBC Auto (Bld)Ordered By: Lalito Silva on 93-94-4349Svuesmuqc/100 WBC (Bld)0.8 %.[facility]aritan HospitalBlood hemoglobin measurement (mass/volume)Ordered By: Lalito Silva on 58-05-0870Wgbingwseq (Bld) [Mass/Vol]14.0 g/dL13.0-17.0[facility]itan HospitalBlood leukocytes automated count (number/volume)Ordered By: Lalito Silva on 05-72-0588OWW (Bld) [#/Vol]7.6 10*3/uL4.5-11.0[facility]aritan HospitalCOVID-19 SOFIAOrdered By: Joss Smith on 07-02-2022 SARS-CoV+SARS-CoV-2 (COVID-19) Ag IA.rapid Ql (Resp)NegativeNegativeGood Samaritan HospitalComment on above:This is a duplicate Brandon SARS Antigen (BERNARD) result to be used for statistical tracking purpose only.Creatinine and Glomerular filtration rate.predicted panel (S/P/Bld)Ordered By: Lalito Silva on 54-04-2530Oiwcqgeflw [Mass/Vol]1.26 mg/dL0.64-1.27Good Samaritan HospitalEosinophils Auto (Bld) [#/Vol]Ordered By: Lalito Silva on 07-02-2022 Eosinophils (Bld) [#/Vol]0.1 10*3/uL0.0-0.45[facility] Eosinophils/100 WBC Auto (Bld)Ordered By: Lalito Silva on 07-02-2022 Eosinophils/100 WBC (Bld)1.2 %.[facility]aritan HospitalErythrocyte distribution width Auto (RBC) [Ratio]Ordered By: Lalito Silva on 07-02-2022 Erythrocyte distribution width (RBC) [Ratio]16.2 %12.0-14.8[facility]aritan HospitalEstimated glomerular filtration rate (GFR) non- Ordered By: Lalito Silva on 17-47-6218SNA/1.73 sq M.predicted among non- blacks MDRD (S/P/Bld) [Vol rate/Area]56 mL/MinGood Samaritan Hospital Hematocrit Auto (Bld) [Volume fraction]Ordered By: Lalito Silva on 07-02-2022 Hematocrit (Bld) [Volume fraction]43.9 %38.8-50.0[facility]itan HospitalLaboratory - CoagulationOrdered By: Lalito Silva on 85-29-5466BY Coag (PPP) [Time]15.7 s9.0-12.9[facility]itan HospitalLaboratory - Coagulationon 39-66-4300UHK Coag (Bld) [Relative time]1.5 {INR}-[facility] 250 DO Work Phone: Comment on above:INR results are specifically intended to assess patients stabilized on long-term Anticoagulation therapy suggested INR?s ?Less Intensive Anticoagulation? 2.0 ? 3.0Conventional Range 3.0 ? 4.5 Laboratory - Hematology and Cell countsOrdered By: Lalito Silva on 07-02-2022 Nucleated RBC/100 WBC (Bld) [Ratio]0.1 %0-0.5FSt. John of God Hospital Lymphocytes Auto (Bld) [#/Vol]Ordered By: Lalito Silva on 07-02-2022 Lymphocytes (Bld) [#/Vol]1.4 10*3/uL1.00-4.8[facility] Lymphocytes/100 WBC Auto (Bld)Ordered By: Lalito Silva on 07-02-2022 Lymphocytes/100 WBC (Bld)18.8 %.[facility] InstituteH Auto (RBC) [Entitic mass]Ordered By: Lalito Silva on 16-03-3781SPD (RBC) [Entitic mass] 28.7 pg27.5-35.2FSt. John of God HospitalMCHC Auto (RBC) [Mass/Vol] Ordered By: Lalito Silva on 35-73-8592CAAO (RBC) [Mass/Vol]31.9 g/dL32.5-35.6 [facility] HospitalMCV Auto (RBC) [Entitic vol]Ordered By: Lalito Silva on 99-92-9711SQA (RBC) [Entitic vol]90.1 fL83.5-101Good [facility]itan HospitalMonocytes Auto (Bld) [#/Vol]Ordered By: Lalito Silva on 11-67-8331Chxjvrrlo (Bld) [#/Vol]0.6 10*3/uL0.0-0.8[facility]itan HospitalMonocytes/100 WBC Auto (Bld)Ordered By: Lalito Silva on 07-02-2022 Monocytes/100 WBC (Bld)7.2 %.[facility] Samaritan HospitalNeutrophils Auto (Bld) [#/Vol]Ordered By: Lalito Silva on 99-97-9301Zgebbcwtclt (Bld) [#/Vol] 5.5 10*3/uL1.8-7.7FSt. John of God HospitalNeutrophils/100 WBC Auto (Bld)Ordered By: Lalito Silva on 41-87-1422Jttuqpmjgyd/100 WBC (Bld)72.0 %. [facility]itan HospitalNo Panel InformationOrdered By: Lalito Silva on 51-57-2803Khawllbif GFR ()> 60 mL/MinGood Samaritan HospitalComment on above:GFR estimated reference range: According to KDOQI guidelines, <60 ml/min/1.73m2 is sufficient todiagnose a patient with chronic kidney disease.Pharmacy Creatinine Clearance (Chem67.63Good Samaritan HospitalNo Panel Informationon .6 {second(s)}Qmphpa44.1-36.5 -[facility] [employer] 250 DO Work Phone: Comment on above:Parameter 15 days - 4 weeks 1 - 5 months 6 - 11 months 1 - 5 years 6 - 10 years 11 - 17 years PTT Mean: 35.4 (27.6-45.6) Mean: 33.5 (24.8-40.7) Mean: 32.4 (25.1-40.7) Mean: 31.6 (24.0-39.2) Mean: 31.6 (26.9-38.7) Mean: 31.0 (24.6-38.4) Pediatric Reference ranges were obtained from a study by Dennis et al. prepared from 1437 samples obtained at 7 different centers using the same coagulation reagent and instrumentation [place] [facility] [place] Currently there are no coagulation studies available worldwide for children to 14 days, and no normal ranges. Heparin therapeutic range (represented by Anti-Factor Xa activity of 0.2 - 0.4 U/mL) corresponds to PTT of 56.6 - 109.0 sec.17.2 {second(s)}above high threshold 9.4-12.5[facility] 250 DO Work Phone: Comment on above:15 days - 4 weeks 1 - 5 months 6 -11 months 1 ? 5 years 6 ? 10 years 11 -17 years Mean: 11.2 (9.5 ?12.6) Mean: 11.0 (9.7 ? 12.8) Mean: 11.0 (9.8 ? 13.0) Mean: 11.3 (9.9 ? 13.4) Mean: 11.7 (10.0 ? 14.6) Mean: 11.8 (10.0 - 14.1) Pediatric Reference ranges were obtained from a study by Ventura Leoset al. prepared from 1437 samples obtained at 7 different centers using the same coagulation reagent and instrumentation [place] [facility] [place] Currently there are no coagulation studies available worldwide for children to 14 days, and no normal ranges.No Panel InformationOrdered By: Joss Smith on 58-50-9696JBTH Antigen (LFIA)[facility] Samaritan HospitalPlatelet mean volume Auto (Bld) [Entitic vol]Ordered By: Lalito Silva on 07-02-2022 Platelet mean volume (Bld) [Entitic vol]8.3 fL6.6-10.1FSt. John of God HospitalPlatelet poor plasma international normalized ratio (INR) by coagulation assay (relatOrdered By: Lalito Silva on 61-74-8920KZK Coag (PPP) [Relative time]1.4 {INR}[facility] Samaritan HospitalComment on above:INR Therapeutic Range A) Pre- and Peroperative OAT started two weeks before surgery. NOT HIP SURGERY: 1.5 - 2.5 HIP SURGERY: 2 - 3 B) Primary and secondary prevention of venous THROMBOSIS: 2 - 3 C) Active venous thrombosis, pulmonary embolism and prevention of recurrent venous thrombosis: 2 - 3 D) Prevention of arterial thromboembolism including patients with mechanical heart valves: 3 - 4.5INR Therapeutic Range A) Pre- and Peroperative OAT started two weeks before surgery. NOT HIP SURGERY: 1.5 - 2.5 HIP SURGERY: 2 - 3B) Primary and secondary prevention of venous THROMBOSIS: 2 - 3C) Active venous thrombosis, pulmonary embolismand prevention of recurrent venous thrombosis: 2 - 3D) Prevention of arterial thromboembolismincluding patients with mechanical heart valves: 3 - 4.5Platelets Auto (Bld) [#/Vol]Ordered By: Lalito Silva on 94-00-9310Hgkcavxup (Bld) [#/Vol]225 10*3/nO011-860YefdgfhfsGood Samaritan HospitalRBC Auto (Bld) [#/Vol] Ordered By: Lalito Silva on 74-04-2765FHX (Bld) [#/Vol]4.87 10*6/uL3.90-5.60 [facility] Daytonerum or plasma calcium measurement (mass/volume)Ordered By: Lalito Silva on 70-61-0091Exlzucy [Mass/Vol]9.0 mg/dL8.2-10.2FSamaritan Hospitalerum or plasma chloride measurement (moles/volume)Ordered By: Lalito Silva on 51-17-1075Flqxwxar [Moles/Vol]100 mmol/R01-175IuzrnnyzvAccess Hospital Daytonerum or plasma glucose measurement (mass/volume)Ordered By: Lalito Silva on 07-02-2022 Glucose [Mass/Vol]116 mg/sV54-389EaiobiiulGood Samaritan HospitalComment on above:ADA recommended reference range Random Glucose Reference Range is dependent on time and content of last meal. Glucose of more than 200 mg/dL in a nonstressed, ambulatory subject supports the diagnosis of Diabetes Mellitus.ADA recommended reference rangeRandom Glucose Reference Range is dependent on time and content of last meal. Glucose of more than 200 mg/dL in a nonstressed, ambulatory subject supports the diagnosisof Diabetes Mellitus.Serum or plasma potassium measurement (moles/volume)Ordered By: Lalito Silva on 54-40-7045Chgsafxnl [Moles/Vol]4.0 mmol/L3.5-5.1FSamaritan Hospitalerum or plasma sodium measurement (moles/volume)Ordered By: Lalito Silva on 48-20-5643Ouhcjg [Moles/Vol]139 mmol/T135-644XjlgwtcsyAccess Hospital Daytonerum or plasma total carbon dioxide measurement (moles/volume)Ordered By: Lalito Silva on 66-73-5396KG9 [Moles/Vol]28.9 mmol/L22.0-30.0[facility] Daytonerum or plasma urea nitrogen measurement (mass/volume)Ordered By: Lalito Silva on 45-17-7345Uqml nitrogen [Mass/Vol]25 mg/dL9-23[facility]itan HospitalOffice Visit (Cardiology) on 15-61-5396Iuvbmu-up visitDiagnoses/Problems Assessed Atherosclerosis of coronary artery of [place] heart without angina pectoris (414.01) (I25.10) Hyperlipidemia [...] Weight Tips; Status:Complete - Retrospective Authorization; Done: [id number] Some eating tips that can help you lose weight.; Status:Complete - Retrospective Authorization; Done: [id number] SocHx: Former smoker Tobacco Use Screening; Status:Complete; Done: 99Fbx8049 Patient Instructions Please bring all medicines, vitamins, [...] TO AFFECTED AREA(S) TWICE DAILY. as needed Lisinopril-hydroCHLOROthiazide 10-12.5 MG Oral TabletTAKE 1 TABLET TWICE [...] Sodium 4 MG Oral Tabletas directed by [facility] Patient did not bring medication [...] negative for complaint. Vitals Vital Signs Recorded: 93Zuw5775 11:29AM Heart Rate68, R Radial Skbdhwtm319, RUE, Sitting Kstvmpzsb73, RUE, Sitting Height5 ft 6 in Xpsxeq663 lb BMI Tcyiqjnqhz71 kg/m2 BSA Calculated2.43 Tobacco Useb) No Physical [...] and dry, normal s (more content not included)...NormalUH TouchworksTobacco Screening.on 34-39-4455Qwblxro use status CPHSb) [facility] 250 DO Work Phone: Office Visit (Cardiology)on 16-98-4324Vfjqto-up visit Diagnoses/Problems Assessed Atherosclerosis of coronary artery of [place] heart without angina pectoris (414.01) (I25.10) Essential hypertension, benign (401.1) (I10) Diabetes mellitus (250.00) (E11.9) Hyperlipidemia (272.4) (E78.5) High risk medication use (V58.69) (Z79.899) Body mass index (BMI) of 50.0 to 59.9 in adult (V85.43) (Z68.43) Former smoker (V15.82) (Z87.891) QUIT 1996 Edema (782.3) (R60.9) Atrial flutter (427.32) (I48.92) Orders Atrial flutter IO EKG Electrocardiogram- 12 Lead; Status:Complete; Done: 34Mmr6885 Body mass index (BMI) of 50.0 to 59.9 in adult Healthy Weight Tips; Status:Complete - Retrospective Authorization; Done: 26Dnz0052 Edema Start: Torsemide 10 MG Oral Tablet; Take one tablet once daily Edema, Essential hypertension, benign, High risk medication use Basic Metabolic Panel; Status:Active - Retrospective Authorization; Requested for:[id number]; SocHx: Former smoker Tobacco Use Screening; Status:Complete; Done: [id number] Patient Instructions By signing my name below, IRodolfo LPN, [place], attest that this documentation has been prepared [...] THIN LAYER TO AFFECTED AREA(S) TWICE DAILY. Lisinopril-hydroCHLOROthiazide 10-12.5 MG Oral TabletTAKE 1 TABLET TWICE [...] Sodium 4 MG Oral Tabletas directed by [facility] Allergies Medication Penicillins Allergy; Hives;; Recorded By: Reina Bloom; 08/04/2021 6:29:44 PM Social History Problems Consumes 1 to 2 servings of caffeine per day (V49.89) (Z78.9) Former smoker (V15.82) (Z87.891) QUIT 1996 No illicit drug use Occasional alcohol use (more content not included)...NormalUH TouchworksTobacco Screening.on 03-16-2022 Adult depression screening assessmentNoPeaceHealth [employer] 250 DO Work Phone: Fall risk assessmentb) One or more falls in the last yearPeaceHealth Unnati Silks Pvt LtdSanford Children'S Hospital BismarckKrystin 250 DO Work Phone: Tobacco use status CPHSb) NoMNavos Health Tasktop [employer] 250 DO Work Phone: No Panel Informationon \S\41Gnbkvt05-23HO- [place] [employer] 250 DO Work Phone: [phone] 407-69710.50\S\0.54Xnkape0.45-5.33[facility] 250 DO Work Phone: Comment on above:PERFORMED BY:[facility] [place], [place] [phone] MEDICAL DIRECTORCORAL GOLD M.D.9.1\S\9.2Otvqok1.2-10.2MNavos Health [facility] 250 DO Work Phone: [phone]\S\24.8Tllfgj26.0-30.0MP-[facility] 250 DO Work Phone: [phone]\S\305Iuvadq08-747AA-Rgzvy [place] [facility] 250 DO Work Phone: [phone])456-54004.1\S\4.5Smizgx1.5-5.1MP-[facility] 250 DO Work Phone: [phone]\S\557Tybbtt383-216QP-[place] [facility] 250 DO Work Phone: [phone]\S\55NormalMP-[facility] 250 DO Work Phone: Comment on above:GFR estimated reference range: According to KDOQI guidelines, <60 ml/min/1.73m2 is sufficient todiagnose a patient with chronic kidney disease.45\S\45NormalMP-[facility] 250 DO Work Phone: [phone]\S\1.51above high threshold0.64-1.27MP-[facility] 250 DO Work Phone: [phone]\S\10Rjerkh1-57MF-Ivzyq [place] [facility] 250 DO Work Phone: [phone]\S\109above high nzllrxiny26-180SV-Pklvo [place] [facility] 250 DO Work Phone: Comment on above:Random Glucose Reference Range is dependent on time and content of last meal. Glucose of more than 200 mg/dL in a nonstressed, ambulatory subject supports the diagnosis of Diabetes Mellitus. ADA recommended reference rangeRadiologyon 33-70-4437BY Chest 2 ViewsNormalMP-[facility] 250 DO Work Phone: No Panel Informationon 30-24-0510FauyziFJ-[facility] 250 DO Work Phone: No Panel Informationon 39-69-3097LC-[facility] Bryan Bowens DO Work Phone: IO EKG Electrocardiogram- 12 Leadon 85-29-9176AH EKG Electrocardiogram- 12 LeadSee Scanned DocumentDeannOverlake Hospital Medical Center Shyann Bowens DO Work Phone: Office Visit (Cardiology)on 19-17-3148Hodcbd-up visit Diagnoses/Problems Assessed Atherosclerosis of coronary artery of [place] heart without angina pectoris (414.01) (I25.10) Atrial flutter (427.32) (I48.92) Essential hypertension, benign (401.1) (I10) Diabetes mellitus (250.00) (E11.9) Hyperlipidemia (272.4) (E78.5) Body mass index (BMI) of 50.0 to 59.9 in adult (V85.43) (Z68.43) Former smoker (V15.82) (Z87.891) QUIT 1996 Obesity, morbid (more than 100 lbs over ideal weight or BMI > 40) (278.01) (E66.01) Orders Atherosclerosis of coronary artery of [place] heart without angina pectoris Renew: Aspirin EC [...] THIN LAYER TO AFFECTED AREA(S) TWICE DAILY. Lisinopril-hydroCHLOROthiazide 10-12.5 MG Oral TabletTAKE 1 TABLET TWICE [...] Sodium 4 MG Oral Tabletas directed by [facility] Allergies Medication Penicillins Allergy; Hives;; [...] Signs Recorded: 07Sep2021 09:34AM Heart Rate70, Apical Mexggslp28, RUE, Sitting Kbwwozpno51, RUE, Sitting Height5 ft 6.5 in Nqzdnf512 lb BMI Jmhgvlcqvm78.26 kg/m2 BSA Calculated2.5 Tobacco Useb) No Fall Screeninga) No falls within the last year EKG done in office today. Physical Exam Constitutional: alert and in no acute distress. Eyes: no erythema, swelling or discharge from the eye . 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 T1-PKAPVHR-B This report has been produced using speech [...] Physician: MALLIKA QUINONES M.D. Original Transcribed by/Date: [facility] Apr 29 2019 4:50P Original Electronically Signed by/Date: MALLIKA QUINONES M.D. Apr 29 2019 4:50P Addendum Interpreting Physician: Addendum Transcribed by/Date: NO ADDENDUM Addendum Electronically Signed by/Date:[facility] BI 1 OR 2 VIEWon 44-50-4188XBVE BI 1 OR 2 VIEW*FINAL Date of Service: 04/29/2019 16:45 Adm #: [id number] Reading Dr:MALLIKA QUINONES Signoff Dr: MALLIKA QUINONES [...] change due to bilateral tricompartmental knee arthroplasty. M1-MQCFVDC-U This report has been produced using speech recognition. Original Interpreting Physician: MALLIKA QUINONES M.D. Original Transcribed by/Date: [facility] Apr 29 2019 4:53P Original Electronically Signed by/Date: MALLIKA QUINONES M.D. Apr 29 2019 4:53P Addendum Interpreting Physician: Addendum Transcribed by/Date: NO ADDENDUM Addendum Electronically Signed by/Date:NormalMetrohealth Cleveland Heights Medical CenterPROTHROMBIN TIME on 59-96-9480ZCX Coag RelTime (PPP)High0.86-1.16[facility] Medical CenterComment on above:Result Comment: 2.5 INR Theraputic Range: 2.0-3.5 Performed at [address] [address]Vouvwqfsj By: #### PTB #### [address] [address]Trbaormhryf time (PT) Coag time (PPP)INFORMATION NOT REPORTED TO [facility] Health SystemComment on above:Performed By: #### PTB #### [address] [address]Yodffmhgvuq time (PT) Coag time (PPP)24.9 sHigh9.3-12.7[facility] Medical CenterComment on above:Performed By: #### PTB #### [address] [address]AGDGBXRA RT MIN 2 VIEWon 31-90-0593CFVMDBLX RT MIN 2 VIEW *FINAL Date of Service: 04/29/2019 16:45 Adm #: [id number] Reading Dr:MALLIKA QUINONES Signoff Dr: MALLIKA QUINONES [...] acromioclavicular joint and at the glenohumeral joint. Q3-WNDCBVQ-I This report has been produced using speech recognition. Original Interpreting Physician: MALLIKA QUINONES M.D. Original Transcribed by/Date: [facility] Apr 29 2019 4:51P Original Electronically Signed by/Date: MALLIKA QUINONES M.D. Apr 29 2019 4:51P Addendum Interpreting Physician: Addendum Transcribed by/Date: NO ADDENDUM Addendum Electronically Signed by/Date:[facility] HospitalPINE CERVICAL WO CONTRASTon 97-36-8113TAIVV CERVICAL WO CONTRAST*FINAL Date of Service: 04/29/2019 16:43 Adm #: [id number] Reading Dr:MALLIKA QUINONES Signoff Dr: MALLIKA QUINONES [...] from C3-4 through C7-T1 with cervical spondylosis. Y6-ZOEYCHR-H This report has been produced using speech [...] Physician: MALLIKA QUINONES M.D. Original Transcribed by/Date: [facility] Apr 29 2019 5:02P Original Electronically Signed by/Date: MALLIKA QUINONES M.D. Apr 29 2019 5:02P Addendum Interpreting Physician: Addendum Transcribed by/Date: NO ADDENDUM Addendum Electronically Signed by/Date:[facility] Vital Signs Date TimeVital SignValuePerforming VwvsbmqlkHkkhwbrl76-78-3627 15:04-0400Body neqhjc189.91 cmBenjamin Ball DO Work Phone: [phone] [place], [place] 2422807-22-2025 15:04-0400 Body mass index (BMI) [Ratio]45.7 kg/a7Zbzicgtq Ball DO Work Phone: [phone] [place], [place] 2422807-22-2025 15:04-0400 Body .4 kgBenjamin Ball DO Work Phone: [phone] [place], [place] 2422807-22-2025 15:04-0400 Diastolic blood fbkufnau13 mm[Hg]Modesto Ball DO Work Phone: [phone] [place], [place] 2422807-22-2025 15:04-0400 Heart rate62 /minBenjamin Ball DO Work Phone: [phone] [place], [place] 2422807-22-2025 15:04-0400 Respiratory rate14 /minBenjamin Ball DO Work Phone: [phone] [place], [place] 2422807-22-2025 15:04-0400 SaO2% (BldA) [Mass fraction]96 %Modesto Ball DO Work Phone: [phone] [place], [place] 2422807-22-2025 15:04-0400 Systolic blood fznubgkg073 mm[Hg]Modesto Ball DO Work Phone: [phone] [place], [place] 2422806-17-2025 15:42-0400 Body tqyooi341.2 cmCarri Marques MD Work Phone: [facility]06-17-2025 15:42-0400 Body mass index (BMI) [Ratio]45.89 kg/y6UjyupezCarri Marques MD Work Phone: [phone])171-[address] [place], [place] 2390106-17-2025 15:42-0400 Body xyzykc515.9 kgCarri Marques MD Work Phone: [phone]06-17-2025 15:42-0400 Diastolic blood ajrvrhhb27 mm[Hg]Carri Marques MD Work Phone: [phone]06-17-2025 15:42-0400 Heart rate60 /Roosevelt Marques MD Work Phone: [phone]06-17-2025 15:42-0400 Systolic blood dzmpguef94 mm[Hg]Carri Marques MD Work Phone: [phone] [place], [place] 2390103-12-2025 09:44-0400 Body .91 cmGood [facility]03-12-2025 09:44-0400Body mass index (BMI) [Ratio]47.7 kg/e2GncdvyhjrGood Samaritan Hospital03-12-2025 09:44-0400Body xyaope290.24 kgGood Samaritan Hospital03-12-2025 09:44-0400Diastolic blood fsflugap80 mm[Hg][facility] 01-30-2025 09:44-0400Heart rate70 /[facility] 01-30-2025 09:44-0400Respiratory rate12 /[facility] 01-30-2025 09:44-6121VoU1% (BldA) [Mass fraction]96 %[facility]03-12-2025 09:44-0400Systolic blood ijijquka123 mm[Hg][facility]12-31-2024 09:37-0500Body qukuuu907.91 cmGood Samaritan Hospital12-31-2024 09:37-0500Body mass index (BMI) [Ratio]48.6 kg/m2 [facility]12-31-2024 09:37-0500Body kktyly103.79 kg [facility]12-31-2024 09:37-0500Diastolic blood ppgvuntt16 mm[Hg][facility]12-31-2024 09:37-0500Heart rate80 /min [facility]12-31-2024 09:37-0500Respiratory rate14 /min [facility]12-31-2024 09:37-0500Systolic blood wyzvcjpo068 mm[Hg][facility]12-05-2024 15:08-0500Body phbobf283.2 cm Carri Marques MD Work Phone: [phone] [place], [place] 2390112-05-2024 15:08-0500 Body mass index (BMI) [Ratio]47.77 kg/b2PkreqxzCarri Marques MD Work Phone: [phone] [place], [place] 2390112-05-2024 15:08-0500 Body amlvhx274.35 kgCarri Marques MD Work Phone: [phone]12-05-2024 15:08-0500 Diastolic blood jwjjkmpo79 mm[Hg]Carri Marques MD Work Phone: [phone]12-05-2024 15:08-0500 Heart rate66 /minCarri Marques MD Work Phone: [phone] [place], [place] 2390112-05-2024 15:08-0500 Systolic blood nfapxryd674 mm[Hg]Carri Marques MD Work Phone: 6(349)410-[address] [place], [place] 2390109-24-2024 14:40-0400 Body qnmasu623.91 cmDO Modesto Chavarria Work Phone: [facility]09-24-2024 14:40-0400 Body mass index (BMI) [Ratio]49.9 kg/m2DO Modesto Chavarria Work Phone: [facility]09-24-2024 14:40-0400 Body lxkmgi286.42 kgDO Modesto Ball Work Phone: 1(477)562-[address] [place], [place] 1098309-24-2024 14:40-0400 Diastolic blood akgzttwx64 mm[Hg]DO Modesto Ball Work Phone: 1(036)901-[address] [place], [place] 1098309-24-2024 14:40-0400 Heart rate78 /minDO Modesto Ball Work Phone: 1(659)89[address]09-24-2024 14:40-0400 SaO2% (BldA) [Mass fraction]98 %DO Modesto Ball Work Phone: 1(468)37615 [address]09-24-2024 14:40-0400 Systolic blood qjybsypy409 mm[Hg]DO Modesto Ball Work Phone: 1(984)12415 [address]08-02-2024 08:00-0400 Body .9 [degF]DO Modesto Ball Work Phone: 1(272)9[address]08-02-2024 08:00-0400 Diastolic blood aanlcbmq61 mm[Hg]DO Modesto Ball Work Phone: 1(482)62[address]08-02-2024 08:00-0400 Heart rate64 /minDO Modesto Ball Work Phone: 1(966)476-[address] [place], [place] 1098308-02-2024 08:00-0400 Respiratory rate20 /minDO Modesto Ball Work Phone: 1(352)145-[address] [place], [place] 1098308-02-2024 08:00-0400 SaO2% (BldA) [Mass fraction]96 %DO Modesto Ball Work Phone: 1(765)7[address]15 [address]08-02-2024 08:00-0400 Systolic blood axtmrjtz065 mm[Hg]DO Modesto Ball Work Phone: 1(190)23915 [address]08-02-2024 05:02-0400 Body fournc984.9 kgDO Modesto Ball Work Phone: 1(432)21915 [address]07-31-2024 14:46-0400 Body .64 cmDO Modesto Ball Work Phone: 1(288)288-58[facility]07-29-2024 23:31-0400 Inhaled oxygen isijedpzxcpby33 %DO Modesto Ball Work Phone: 1(305)01215 [address]07-29-2024 22:17-0400 Body xmharxbcgav92.6 [degF]DO Modesto Ball Work Phone: 1(723)96[address]07-29-2024 22:17-0400 Diastolic blood nvtqaulu94 mm[Hg]DO Modesto Ball Work Phone: 1(495)635-[address] [place], [place] 1098307-29-2024 22:17-0400 Heart rate64 /minDO Modesto Ball Work Phone: 1(189)08[address]07-29-2024 22:17-0400 Respiratory rate18 /minDO Modesto Ball Work Phone: 1(746)[address] [place], [place] 2422807-29-2024 22:17-0400 SaO2% (BldA) [Mass fraction]95 %DO Modesto Ball Work Phone: 1(736)033-[address] [place], [place] 1098307-29-2024 22:17-0400 Systolic blood coiphjff45 mm[Hg]DO Modesto Ball Work Phone: 1(397)[address] [place], [place] 2422807-29-2024 15:48-0400 Body ykdyhg341.64 cmDO Modesto Ball Work Phone: 1(473)[address]07-29-2024 15:48-0400 Body .6 kgDO Modesto Ball Work Phone: 1(354)735[address]06-03-2024 10:34-0400 Body eiospj896.2 Coco Silva MD Work Phone: [facility]06-03-2024 10:34-0400 Body mass index (BMI) [Ratio]50.43 kg/e7YwhyqawLalito Silva MD Work Phone: [facility]06-03-2024 10:34-0400 Body .06 kgLalito Silva MD Work Phone: [facility]06-03-2024 10:34-0400 Diastolic blood mm[Hg]Lalito Silva MD Work Phone: [facility]06-03-2024 10:34-0400 Heart rate68 /Slick Silva MD Work Phone: [facility]06-03-2024 10:34-0400 Systolic blood lrpnmhyd21 mm[Hg]Lalito Silva MD Work Phone: [facility]05-06-2024 14:28-0400 Body zluozs273.64 cm[facility]05-06-2024 14:28-0400Body mass index (BMI) [Ratio]51.7 kg/u5YeyfdtiouGood Samaritan Hospital05-06-2024 14:28-0400Body xirkek875.31 kg[facility]05-06-2024 14:28-0400Diastolic blood mpwbqsfo83 mm[Hg][facility] 03-26-2024 14:28-0400Heart rate74 /[facility] 03-26-2024 14:28-0400Respiratory rate24 /[facility] 03-26-2024 14:28-0400Systolic blood etkvgukt146 mm[Hg][facility]02-05-2024 11:00-0500Body heightBenleila Ball Other [employer] Other 02-05-2024 11:00-0500Body mass index (BMI) [Ratio] 53.35 kg/t6Wagirkdy Ball Other [employer] Other 02-05-2024 11:00-0500Body .96 kgBenjamin Ball Other [employer] Other 02-05-2024 11:00-0500Diastolic blood mm[Hg] Modesto Ball Other [employer] Other 02-05-2024 11:00-0500Respiratory rate20 /minBenjamin Ball Other [place] [facility] Other 02-05-2024 11:00-0500Systolic blood aiyvvflm948 mm[Hg] Modesto Ball Other [facility] Other 11-27-2023 10:00-0500Body heightBenjamin Ball Other [facility] Other 11-27-2023 10:00-0500Body mass index (BMI) [Ratio] 53.19 kg/m2Qsbbfbhy Ball Other [place] [facility] Other 11-27-2023 10:00-0500Body rdzeiu051.51 kgBenjamin Ball Other [place] [facility] Other 11-27-2023 10:00-0500Diastolic blood avkgvfmz08 mm[Hg] Moedsto Ball Other [place] [facility] Other 11-27-2023 10:00-0500Respiratory rate20 /minBenjamin Ball Other [place] [facility] Other 11-27-2023 10:00-0500Systolic blood tprstyul798 mm[Hg] Modesto Ball Other [place] [facility] Other 11-17-2023 15:25-0500Body tsabhm313.1 cmLalito Silva MD Work Phone: [facility]11-17-2023 15:25-0500 Body mass index (BMI) [Ratio]52.42 kg/l9IiwfroiLalito Silva MD Work Phone: [facility]11-17-2023 15:25-0500 Body ggxupz674.88 kgLalito Silva MD Work Phone: [facility]11-17-2023 15:25-0500 Diastolic blood wfhtgmaj89 mm[Hg]Lalito Silva MD Work Phone: [facility]11-17-2023 15:25-0500 Heart rate80 /minLalito Silva MD Work Phone: [facility]11-17-2023 15:25-0500 Systolic blood rukcqngj680 mm[Hg]Lalito Silva MD Work Phone: [facility]11-03-2023 10:30-0400 Body heightBenjamin Ball Other [employer] Other 11-03-2023 10:30-0400Body mass index (BMI) [Ratio] 52.13 kg/d9Ajbctbye Ball Other [facility] Other 11-03-2023 10:30-0400Body odilfe999.51 kgBenjamin Ball Other [facility] Other 11-03-2023 10:30-0400Diastolic blood gypizisb41 mm[Hg] Modesto Ball Other [employer] Other 11-03-2023 10:30-0400Respiratory rate20 /minBenjamin Ball Other [facility] Other 11-03-2023 10:30-0400Systolic blood mm[Hg] Modesto Ball Other [facility] Other 11-03-2023 09:30-0400Body heightBenjamin Ball Other [place] [facility] Other 11-03-2023 09:30-0400Body mass index (BMI) [Ratio] 52.13 kg/a4Noszbpkq Ball Other [facility] Other 11-03-2023 09:30-0400Body aqtsnd513.51 kgBenjamin Ball Other [employer] Other 11-03-2023 09:30-0400Diastolic blood vnpgxmme80 mm[Hg] Modesto Ball Other [facility] Other 11-03-2023 09:30-0400Respiratory rate20 /minBenjamin Ball Other [facility] Other 11-03-2023 09:30-0400Systolic blood bcdziahe266 mm[Hg] Modesto Ball Other [facility] Other 08-03-2023 11:00-0400Body heightBenjamin Ball Other [facility] Other 08-03-2023 11:00-0400Body mass index (BMI) [Ratio] 51.03 kg/v4Zfxmhbgq Ball Other [facility] Other 08-03-2023 11:00-0400Body vftnni070.43 kgBenjamin Ball Other [facility] Other 08-03-2023 11:00-0400Diastolic blood bizpxxqx78 mm[Hg] Modesto Ball Other [facility] Other 08-03-2023 11:00-0400Respiratory rate20 /minBenjamin Ball Other [facility] Other 08-03-2023 11:00-0400Systolic blood mm[Hg] Modesto Ball Other [facility] Other 06-25-2023 00:03-0400Diastolic blood msmvhawg59 mm[Hg] DO Modesto Ball Work Phone: [phone]([phone]06-25-2023 00:03-0400 Heart rate72 /minDO Modesto Ball Work Phone: 1(129)[phone]06-25-2023 00:03-0400 Respiratory rate14 /minDO Modesto Ball Work Phone: 1(713)633-38[facility]06-25-2023 00:03-0400 SaO2% (BldA) [Mass fraction]96 %DO Modesto Ball Work Phone: 1(721)915-08[facility]06-25-2023 00:03-0400 Systolic blood judzsxkg936 mm[Hg]DO Modesto Ball Work Phone: 1(281)449[facility]73[facility]06-24-2023 22:42-0400 Body gplnkiwhvds78.5 [degF]DO Modesto Ball Work Phone: 1(144)441-04[facility]06-24-2023 19:48-0400 Body lxvmic648.18 cmDO Modesto Ball Work Phone: 1(313)148-98[facility]06-24-2023 19:48-0400 Body gndijq640.8 kgDO Modesto Ball Work Phone: [facility]04-18-2023 09:15-0400 Body .64 cmBenjamin E Ball Work Phone: [phone]-Udbkm [facility] 250 DO Work Phone: 1(602) 803-622604-18-2023 09:15-0400Body mass index (BMI) [Ratio] 50.68 kg/l2Rqyyswlb E Ball Work Phone: 1(939) [phone]-[facility] 250 DO Work Phone: 1(578) 933-523304-18-2023 09:15-0400Body surface area Derived from formula2.42 c2Xdsqtqyo E Ball Work Phone: mp649-6535BT-[facility]fewK[facility] 250 DO Work Phone: 1(112) 773-914104-18-2023 09:15-0400Body qrabct464.43 kgBenjamin E Ball Work Phone: 1(931) [phone]-[place]nsMichael [place] [address] DO Work Phone: 1(900) 343-959004-18-2023 09:15-0400Diastolic blood jxbgogjy88 mm[Hg] Modesto E Ball Work Phone: [phone]-[facility]erooK[facility]son [facility] 250 DO Work Phone: 1(654) 555-869904-18-2023 09:15-0400Heart rate62 /minBenjamin E Ball Work Phone: 1(160) 550-8898149-1851XW-StivkMichael [place] [address] DO Work Phone: 1(256) 624-511304-18-2023 09:15-0400Systolic blood eeefpzpr850 mm[Hg] Modesto E Ball Work Phone: 1(730) [phone]-QztfnMichael [place] [address] DO Work Phone: 1(512) 367-112104-04-2023 11:00-0400Body heightBenjamin Ball Other [facility] Other 04-04-2023 11:00-0400Body mass index (BMI) [Ratio] 51.58 kg/f4Mxqgmzzu Ball Other [facility] Other 04-04-2023 11:00-0400Body docgpd883.97 kgBenjamin Ball Other [facility] Other 04-04-2023 11:00-0400Diastolic blood knejbtop24 mm[Hg] Modesto Ball Other [employer] Other 04-04-2023 11:00-0400Respiratory rate20 /minBenjamin Ball Other [facility] [employer] Other 04-04-2023 11:00-0400Systolic blood wqdollyy969 mm[Hg] Modesto Ball Other [facility] [employer] Other [id number] 09:00-0400Diastolic blood gnzoilqn11 mm[Hg] DO Modesto Ball Work Phone: 1(075)129-[address] [place], [place] 1098310-04-2022 09:00-0400 Heart rate62 /minDO Modesto Ball Work Phone: 1(366)62715 [address]10-04-2022 09:00-0400 Respiratory rate20 /minDO Modesto Ball Work Phone: 1(201)398-[address] [place], [place] 1098310-04-2022 09:00-0400 SaO2% (BldA) [Mass fraction]96 %DO Modesto Ball Work Phone: 1(348)16615 [address]10-04-2022 09:00-0400 Systolic blood fgnxyarl952 mm[Hg]DO Modesto Ball Work Phone: 1(934)03915 [address]10-04-2022 05:19-0400 Body lyauli373.18 cmDO Modesto Ball Work Phone: 1(942)558-47[facility]10-04-2022 05:19-0400 Body .3 kgDO Modesto Ball Work Phone: 1(765)290-[facility]10-04-2022 05:10-0400 Body rkibtklrvwc45.9 [degF]DO Modesto Ball Work Phone: 1(264)11615 [address]08-13-2022 07:42-0400 Diastolic blood mm[Hg]DO Modesto Ball Work Phone: 1(208)05515 [address]08-13-2022 07:42-0400 Heart rate90 /minDO Modesto Ball Work Phone: 1(419)[address] [place], [place] 2422808-13-2022 07:42-0400 Respiratory rate18 /minDO Modesto Ball Work Phone: 1(461)[address] [place], [place] 2422808-13-2022 07:42-0400 SaO2% (BldA) [Mass fraction]97 %DO Modesto Ball Work Phone: 1(896)[address] [place], [place] 2422808-13-2022 07:42-0400 Systolic blood mm[Hg]DO Modesto Ball Work Phone: 1(294)[address] [place], [place] 2422808-13-2022 05:36-0400 Body whonnh887.5 kgDO Modesto Ball Work Phone: 1(041)[address] [place], [place] 2422808-12-2022 19:55-0400 Body vnnbdsykshi56.9 [degF]DO Modesto Ball Work Phone: 1(480)[address] [place], [place] 2422808-12-2022 18:56-0400 Inhaled oxygen flow rate8 L/minDO Modesto Ball Work Phone: 1(322)[address] [place], [place] 2422808-12-2022 18:18-0400 Body .18 cmDO Modesto Ball Work Phone: 1(829)[address] [place], [place] 2422808-12-2022 18:18-0400 Body mass index (BMI) [Ratio]48.5 kg/m2DO Modesto Ball Work Phone: 1(994)[address] [place], [place] 2422807-26-2022 11:29-0400 Body mmelpx294.64 cmBenjamin E Ball Work Phone: 1(791) [phone]-Vfxvg [place] [facility] LtdSan[facility]ismarckShiawas[facility] 250 DO Work Phone: 1(794) 309-370107-26-2022 11:29-0400Body mass index (BMI) [Ratio]51 kg/o5Mwlqvbsh E Ball Work Phone: 1(269) [phone]-JqpzgTracy Medical CenterThyme LabsShiawassee 250 DO Work Phone: 1(677) 940-385207-26-2022 11:29-0400Body surface area Derived from formula2.43 e1Bxwjkvrl E Ball Work Phone: 1(187) [phone]-OllwzTracy Medical CenterThyme LabsShiawassee 250 DO Work Phone: 1(954) 376-275607-26-2022 11:29-0400Body vysfga399.34 kgBenjamin E Ball Work Phone: mp264-9605SU-NbfriLake View [facility]-[place] 250 DO Work Phone: 1(289) 911-132507-26-2022 11:29-0400Diastolic blood xwhhagqk14 mm[Hg] Modesto E Ball Work Phone: 1(125) [phone]-SazfsTracy Medical Center-[place]ryst[place] 250 DO Work Phone: 1(457) 512-229007-26-2022 11:29-0400Heart rate68 /minBenjamin E Ball Work Phone: 1(434) [phone]-EqqauTracy Medical Center-[place]ryst[place] 250 DO Work Phone: 1(409) 658-178607-26-2022 11:29-0400Systolic blood onixzogq853 mm[Hg] Modesto E Ball Work Phone: 1(914) [phone]-CcqdbMayo Clinic Hospitalusky 250 DO Work Phone: 1(008)696-768-940738-27 08:50-0400Body .64 cmBenjamin E Ball Work Phone: [phone]-UepokLake View Memorial Hospital-[place] 250 DO Work Phone: 1(398) 320-568604-26-2022 08:50-0400Body mass index (BMI) [Ratio] 51.65 kg/c4Xpdnxrnw E Ball Work Phone: 1(836) [phone]-WpiktMayo Clinic Hospitalusky 250 DO Work Phone: 1(301)227-75226-647006-03765146-71-3443 08:50-0400Body surface area Derived from formula2.44 d1Tbradeox E Ball Work Phone: mp377-9184FT-HlisiLake View Memorial Hospital-[place] 250 DO Work Phone: 1(698) 246-707404-26-2022 08:50-0400Body esgrti223.15 kgBenjamin E Ball Work Phone: mp036-5469PN-LjvueLake View Memorial Hospital-[place] 250 DO Work Phone: 1(947) 305-693204-26-2022 08:50-0400Diastolic blood jlupqoye28 mm[Hg] Modesto E Ball Work Phone: 1(926) [phone]-Odeed [facility] 250 DO Work Phone: 1(879) 431-962504-26-2022 08:50-0400Heart rate54 /minBenjamin E Ball Work Phone: mp995-9549EX-Arxst [facility] 250 DO Work Phone: 1(758) 382-553404-26-2022 08:50-0400Systolic blood pniinwin050 mm[Hg] Modesto E Ball Work Phone: mp813-6043AJ-Trwth [facility] 250 DO Work Phone: 1(343) 743-540611-02-2021 00:00-579802 1Benjamin E Ball Work Phone: mp884-6795IM-Whxmy [facility] 250 DO Work Phone: Comment on above:[id number] 09:34-0400Body uyyekb624.91 cmBenjamin E Ball Work Phone: 1(410) [phone]-Bkgog [facility] 250 DO Work Phone: 1(256) 462-855810-18-2021 09:34-0400Body mass index (BMI) [Ratio] 53.26 kg/g8Bxzzangp E Ball Work Phone: 1(909) [phone]-OdjtaTracy Medical Center-[place] 250 DO Work Phone: 1(129) 713-135910-18-2021 09:34-0400Body surface area Derived from formula2.5 c9Vacfkimp E Ball Work Phone: 1(841) [phone]-Ujwjc [facility] 250 DO Work Phone: 1(697) 718-426110-18-2021 09:34-0400Body hxlqow175.96 kgBenjamin E Ball Work Phone: 1(539) [phone]-Btwym [facility] 250 DO Work Phone: 1(850) 382-822110-18-2021 09:34-0400Diastolic blood mm[Hg] Modesto E Ball Work Phone: 1(190) [phone]-Ckupm [facility] 250 DO Work Phone: 1(770) 446-889710-18-2021 09:34-0400Heart rate70 /minBebrijeshnikolay Chavarria Work Phone: mp853-4024ZV-Gasqj [facility] 250 DO Work Phone: 1(126) 400-886210-18-2021 09:34-0400Systolic blood fmzhkovv38 mm[Hg] Modesto Chavarria Work Phone: [phone]-Mcjbc [facility] 250 DO Work Phone: Encounters Encounter DateEncounter TypeCare ProviderFacilityStart: 74-95-0178plrjzjfbnp Carlos Alberto GIBSONFacility:EU BellevueStart: 09-13-2025 End: 01-09-9411fnnhuppirrTmtiajq R WATERSFacility:EU BellevueStart: 06-11-2025 End: 56-21-2313yriamhginaRwbatzpo Ball DO Work Phone: [facility] Work Phone: Start: 06-11-2025 End: 07-86-2340Nbmhznj encounter procedureBeangelinaleila Chavarria DO-[facility] Work Phone: Start: 05-07-2025 End: 36-97-6441mpdenwzufsKTTNVQBSt. [facility]'s [facility] AmbulatoryStart: 05-07-2025 End: 34-01-5222Rxgjev outpatient visit 25 minutesCarri Marques MD Work Phone: [facility] on above:SOB (shortness of breath) on exertion (Primary Dx); Permanent atrial fibrillation (Multi); Pacemaker; Essential hypertension, benign; Complete heart block; Atherosclerosis of [place] coronary artery of [place] heart without angina pectoris; BMI 45.0-49.9, adult (Multi); QUETA (obstructive sleep apnea); Former smoker; Mixed hyperlipidemiaStart: 04-18-2025 End: 79-98-8728xsynofidskPersfrm TraboulssiFacility:FTMCStart: 01-30-2025 End: 19-67-0213rajqrnhyuvWhmpycaqzMemorial Health [facility] Work Phone: Start: 01-30-2025 End: 73-56-4806Wpsdorm encounter procedureFormerly [facility] Work Phone: Start: 13-23-9817Oaluobe encounter procedureAccess Hospital Daytontart: 07-21-6498Wvj-patient / Non-visitFormerly [facility] Work Phone: Start: 11-20-2024 End: 37-24-2157Ipbljqs encounter procedureFormerly [facility] Work Phone: Start: 10-25-2024 End: 38-13-5516Tqaunh outpatient visit 25 minutesCarri Marques MD Work Phone: uh FirelandsComment on above:Permanent atrial fibrillation (Multi) (Primary Dx); SOB (shortness of breath) on exertion; Complete heart block; Pacemaker; Mixed hyperlipidemia; Essential hypertension, benign; Atherosclerosis of [place] coronary artery of [place] heart without angina pectoris; QUETA (obstructive sleep apnea); BMI 50.0-59.9, adult (Multi); Former smokerStart: 10-25-2024 End: 21-72-0414cuvzivrksmAWGZKNYSt. [facility]'s [facility] AmbulatoryStart: 09-27-2024 End: 66-97-5824uvyexvcryjImwdbxn P McGuinnFacility:FTMCStart: 08-14-2024 End: 93-87-7149icukxdzupzSC Modesto Chavarria Work Phone: [facility] Work Phone: Start: 08-14-2024 End: 35-14-3012Ybehkpa encounter procedureDO Modesto Chavarria Work Phone: [facility] Work Phone: Start: 95-98-0474Lmu-patient / Non-visitDO Modesto Chavarria Work Phone: [facility] Work Phone: Start: 40-44-9200Lxu-patient / Non-visitDO Modesto Chavarria Work Phone: [facility] [place] Work Phone: Start: 30-08-6651Khu-patient / Non-visitDO Modesto Chavarria Work Phone: [facility] [place] [facility] [place] Work Phone: Start: 06-19-2024 End: 65-80-0826Nekmqwqaiq and management of inpatientDO Modesto Chavarria Work Phone: [facility] Work Phone: Start: 93-24-3425Wfzlmylmfr and management of inpatientDO Modesto Chavarria Work Phone: [facility] Work Phone: Start: 65-54-5687nhtmfovqutp encounterDO Modesto Chavarria Work Phone: [facility] Work Phone: Start: 04-23-2024 End: 92-28-9507Jkeufpd encounter procedureDO Modesto Chavarria Work Phone: [facility] Work Phone: Start: 04-23-2024 End: 43-70-6624bgjeateyyzQM Modesto Chavarria Work Phone: [facility] Work Phone: Start: 04-23-2024 End: 81-99-1841Fqlbrv outpatient visit 25 minutesLalito Silva MD Work Phone: uh [facility] on above:Atherosclerosis of [place] coronary artery of [place] heart without angina pectoris (Primary Dx); Pacemaker; Permanent atrial fibrillation (Multi); Essential hypertension, benign; Complete heart block (Multi); BMI 50.0-59.9, adult (Multi); SOB (shortness of breath) on exertion; Mixed hyperlipidemiaStart: 03-26-2024 End: 48-40-5322mpxlxemrrlLsjbmdhjlProMedica [facility] Work Phone: Start: 03-26-2024 End: 03-76-8174Fbpcxjk encounter procedureFormerly [facility] Work Phone: Start: 12-26-2023 End: 11-41-9506kutxyfiryrUckozbxs Ball Other [employer] Other Start: 08-04-6521Dqqxlcf encounter procedureBenleila Chavarria Medical ClinicStart: 10-17-2023 End: 32-84-6249tyijehzuccMkusidev Ball Other [employer] Other Start: 59-52-2404Kmjmky outpatient visit 15 minutes oMdesto Chavarria Medical ClinicStart: 10-07-2023 End: 15-31-0653Yuvkih outpatient visit 25 minutesLalito Silva MD Work Phone: uh [facility] HospitalComment on above:Pacemaker (Primary Dx); Permanent atrial fibrillation (CMS/HCC); Mixed hyperlipidemia; Essential hypertension, benign; Complete heart block (CMS/HCC); Atherosclerosis of [place] coronary artery of [place] heart without angina pectorisStart: 09-23-2023 End: 00-98-9861kztufnmsbeYwwwpmjw Ball Other [employer] Other Start: 29-31-6594Fcpflt outpatient visit 25 minutes Modesto [facility] ClinicStart: 07-12-2023 End: 61-52-5519ytwkiqwqrnVdkumhso Ball Other [employer] Other Start: 59-88-3764Huutthvzv encounterBenleila Chavarria Medical ClinicStart: 06-23-2023 End: 83-48-5851rlwhcchdbuXszyrfgy Ball Other [employer] Other Start: 79-73-4865Lqwtlt outpatient visit 25 minutes Modesto [facility] ClinicStart: 06-07-2023 End: 48-78-0716bgrgmwrqsdEgacdozl Ball Other [employer] Other Start: 25-95-8785Umgkhlsma encounterBenjanikolay BallOMERG [facility] ClinicStart: 05-25-2023 End: 53-49-7648fdrkwjffqwXvpopnfh Ball Other [facility] Other Start: 85-33-0098Pfinmfegc encounterBenjamin BallOMERG [facility] Medical ClinicStart: 05-23-2023 End: 43-36-9282uoveybpvpuWzwmlkzb Ball Other [facility] Other Start: 57-70-2995Qubtwdkfx encounterBenjanikolay BallOMERG [facility] Medical ClinicStart: 71-42-9820qadterlaygNh. Modesto Chavarria Facility:[id number]: 87-15-9842tbkzkvrjduUp. Modesto ChavarriaFacility:9090 Start: 17-03-2100Wmvgysyynk and management of inpatientDO Modesto Chavarria Work Phone: [facility] Work Phone: Start: 05-12-2023 End: 10-72-6098eceodksxzdYircucfk Ball Other [facility] Other Start: 96-86-7973Xvenzmj nursing facility care/day 35 minutesBereese ChavarriaBellevue Care CenterStart: 05-11-2023 End: 06-94-2697qkinrfvqnzSfaztuvd Ball Other [facility] Other Start: 99-64-1017Jscgpvsfg encounterBenleila DsouzaG [facility] ClinicStart: 05-09[facility]2023 End: 53-75-4107hzodphxqfwVwsnvrxi [facility] Other Start: 65-64-9566Gwtqdeimp encounterBenjamin BallFPG [facility] ClinicStart: 04-28-2023 End: 23-31-1952fsnxtzwolyXqmqppbm [facility] Other Start: 51-15-2535Ozaslfcac encounterBenjamin BallFPG [facility] ClinicStart: 64-59-2960ncgujkilxnRw. [place] Jayradha Aura Facility:[id number]: 03-21-2023 End: 72-54-9308rsfecakkuxEZLGLW H FAWWADFacility:K8Nsoou: 15-19-5966Ak [facility] Modesto Chavarria Work Phone: [phone]-Ersod [facility] [address] DO Work Phone: Start: 03-09-2023 End: 03-72-3762qptvksarjxCzhwmlax [facility] Page Other Start: 92-81-1009Fsnlqjkvt encounterBenjamin BallFPG [facility] ClinicStart: 64-91-6592Gatcpq outpatient visit 25 minutesBenjamin E Ball Work Phone: [phone]-Mceyx [facility] [address] DO Work Phone: Start: 95-73-9183hjarnpqsbqFa. Lalito Silva IIFacility:[id number]: 42-80-4595Ckcqtn outpatient visit 25 minutesBenjamin BallFPG [facility] ClinicStart: 81-86-5355Arzasvrcw encounterBenjamin BallFPG Ball Medical ClinicStart: 02-22-2023 End: 90-30-8613ccnpnwoauoTV MO[place]O [employer] Near Page Other Start: 02-21-2023 End: 16-45-6799lnartujheaAEMDBZ Shady FAWWADFacility:K2Qovcc: 01-19-2023 End: 08-98-3761wbfcwireksPWZNVV Shady FAWWADFacility:M0Ckewr: 12-22-2022 End: 52-82-5430jxqtwygwgwAZ MODESTO CHAVARRIAFacility:O2Cxylp: 11-22-2022 End: 54-15-0291ixvteiclfsRA MODESTO CHAVARRIAFacility:P0Ejixf: 11-01-2022 End: 28-50-6180tgeoicgcuhVS MODESTO CHAVARRIAFacility:X6Zzloy: 23-17-1575Kggdtfctp for general adult medical examination without abnormal findingsDR MODESTO CHAVARRIA [facility]art: 46-52-2798Ushqk health examinationBenleila Chavarria Other [place] Near [employer] Other Start: 10-28-2022 End: 88-72-0226diavjqvmnzHZ MODESTO CHAVARRIAFacility:H7Oogcc: 10-28-2022 End: 80-31-3303Azlgrzbyb for general adult medical examination without abnormal findingsDR MODESTO CHAVARRIAFacility:Q6Cdgmj: 10-21-2022 End: 04-56-2601lckrahvxwrKB MODESTO CHAVARRIAFacility:U9Wifvh: 33-18-7534ymcneunedg Dr. Modesto Dangelocility:25508Slfec: 09-21-2022 End: 05-64-3161lvhymyjklfTA BENJAMIN BALLFacility:B9Xqroi: 09-02-2022 End: 58-13-5423xfoonvesrnDG MODESTO CHAVARRIAFacility:A8Qexry: 08-24-2022 End: 89-01-1886Wmjfwsrhq department patient visitDO Modesto Chavarria Work Phone: [facility]-Emergency RoomStart: 08-22-2022 End: 76-88-1584hsopemeddvQZ BENJAMIN BALLFacility:V1Xtraa: 07-22-2022 End: 65-59-7498wwbhxubxdkFV BENJAMIN BALLFacility:S9Alyfa: 75-72-5377trqonaayep Dr. Modesto Dangelocility:92938Vpukt: 07-61-1337yxidyrjxfbRg. Benjamin Edward AuraFacility:9090Start: 48-72-8743Lxhrr UpdateBenjamin E Ball Work Phone: [phone]-Vlwtq [facility] [address] DO Work Phone: Start: 84-53-1420ehnxotjzowFh. Lalito Silva IIFacility:9090Start: 07-02-2022 End: 28-56-1681Vmzjiblyjm and management of inpatientDO Modesto Ball Work Phone: [facility] Start: 91-59-4511svxvaxcsslLj. Modesto Galan AuraFacility:01155Vxozh: 43-71-0601ryblheamwyQb. Milo OcampoimFacility:56574Wefcv: 06-21-2022 End: 64-45-4646dkftoqfdaeDJQMJV H FAWWADFacility:I3Inqkv: 82-54-2583Wqrrfv outpatient visit 25 minutesBenjamin E Ball Work Phone: [phone]-Fbuoh [facility] [address] DO Work Phone: Start: 30-41-2825fbilsikjnwCk. Lalito Silva IIFacility:70698Tfsst: 05-21-2022 End: 26-25-3262dmgvmeiepvKXUVVV H FAWWADFacility:F5Xhtvi: 04-78-9113Vlepuq outpatient visit 25 minutesBenjamin E Ball Work Phone: [phone]-Wvmgb [facility] 250 DO Work Phone: Start: 31-47-7060Muywh UpdateBenjamin E Ball Work Phone: [facility] [facility] DO Work Phone: Start: 02-03-3731Jodphjt encounter procedureBenjamin E Ball Work Phone: [phone]-Docpf [facility] 250 DO Work Phone: Start: 39-14-7888JvajmqwCvkygnmu E Ball Work Phone: [phone]-Lvhqc [facility] 250 DO Work Phone: Start: 97-39-7890Gouic UpdateBenjamin E Ball Work Phone: [phone]-Nmxvn [facility] 250 DO Work Phone: Start: 44-49-2522Wpwdynj encounter procedureBenjamin E Ball Work Phone: [phone]-Xxstl [facility] 600 DO Work Phone: Start: 28-59-9366Ov RenewalBenjamin E Ball Work Phone: [phone]-Rntwz [facility] 250 DO Work Phone: Start: 53-08-4906Zbfffz outpatient visit 25 minutes Modesto E Ball Work Phone: [phone]-Hujoq [facility] 250 DO Work Phone: Start: 76-74-5645Keryfcqzq for other preprocedural examinationBenjamin Ball Other [employer] Other Start: 59-80-1636Lfoxshjsl for preprocedural cardiovascular examinationBenjamin Ball Other [employer] Other Start: 07-16-5410Ojw-procedure evaluation check Modesto Ball Other [employer] Other Start: 49-38-1455Pmizxggcahqd cardiovascular examinationBenjamin Ball Other noXtraice Other Start: 06-08-2017 End: 26-71-3718PktxfibdpgJNHQXTN PHYSICIANFacility:[facility] HOSPITALPreoperative state Modesto E Ball Work Phone: [phone]-PsezmMurray County Medical Centerwalk 600 DO Work Phone: Procedures DateProcedureProcedure DetailPerforming ClinicianStart: 87-52-8266Rlz routine ecg w/least 12 lds w/i&rMourhaf Paz OCONNELL Work Phone: Start: 77-22-5329ZO of abdomen and pelvis without contrastDO [employer] Work Phone: Start: 88-69-1572Ntsjh chest X-rayDO [employer] Work Phone: Start: 00-38-4534NSCF-CoV-2, Influenza & RSV (PCR)DO [employer] Work Phone: Start: 28-79-4932Sajjkcrffm radiography of abdomenDO [employer] Work Phone: Start: 51-12-4609TS cervical spine without contrastDO [employer] Work Phone: Start: 07-59-8042CO of head without contrastDO [employer] Work Phone: Start: 75-96-5318Dzfad chest X-rayDO [employer] Work Phone: Start: 94-16-7915Ufpaf chest X-rayDO [employer] Work Phone: Start: 38-23-8184Pucgb chest X-rayDO [employer] Work Phone: Start: 24-14-9433Exteviiwlkjl of cardiac pacemakerDO [employer] Work Phone: Start: 51-44-7721Mrxooipsc for malignant neoplasm of colonBenSiine Ball Other Start: 09-71-1062Vzqzg colonoscopyBenjamin E Ball Work Phone: Amputation of hand, thumb or fingerBenjamin E Ball Work Phone: Arthroplasty of kneeBenjamin E Ball Work Phone: Cataract surgeryBenjamin E Ball Work Phone: CystoscopyBenjamin E Ball Work Phone: Dental surgical procedureBenjamin E Ball Work Phone: Depression screeningBenjamin Ball Other HemorrhoidectomyBenjamin E Ball Work Phone: Insertion of pacemaker pulse generatorBenjamin E Ball Work Phone: LithotripsyBenjamin E Ball Work Phone: PyloromyotomyBenjamin E Ball Work Phone: Radical orchiectomyBenjamin E Ball Work Phone: Repair of cystoceleBenjamin E Ball Work Phone: Repair of shoulderBenjamin E Ball Work Phone: Repair of umbilical herniaBenjamin E Ball Work Phone: SARS Antigen (LFIA)DO Modesto Ball Work Phone: SARS Antigen (LFIA)DO Modesto Ball Work Phone: Screening for malignant neoplasm of prostateBenjamin Ball Other Plan of Treatment DateCare ActivityDetailAuthorStart: 59-06-4313DDmM/Tdap/Td Vaccines (5 - Td or Tdap)DTaP/Tdap/Td Vaccines (5 - Td or Tdap)[facility] Start: 60-63-8858KToX/Tdap/Td Vaccines (7 - Td or Tdap)DTaP/Tdap/Td Vaccines (7 - Td or Tdap)[facility] CenterStart: 12-18-2025 End: 42-30-8203Dtjedmn encounter gkptiogai14/28/2026 3:10 PM EST Office Visit [facility] [address] [facility] [address] [place] [address] Carri Marques MD [address] [facility] [address], [address] [place] [address] [facility]art: 75-38-8923Zdcwluqbo vaccinationInfluenza Vaccine (Season Ended)[facility]: 06-19-2025 EchocardiographyEchocardiogramSouthwest General Health Center: 05-07-2025 End: 38-98-9964Zshewob encounter ebtskusdx74/17/2025 3:30 PM EDT Office Visit [place] [address] [address] [place] [address] Carri Marques MD [address] [facility], [address] [place] [address] [facility]: 88-92-5276Zjbggwrn screeningDiabetes: Retinopathy ScreeningSouthwest [facility]: 02-06-2025Medicare Annual Wellness VisitMedicare Annual Wellness Visit (AWV)[facility]: 10-25-2024 End: 15-66-3314Wktdwub encounter lrsuagfbh75/05/2024 3:00 PM EST [facility] [place] [address] [facility] [address] [place] [address] [facility]ques [facility] [address] [facility] [place] [address] [facility]: 54-85-3726CPHWL-19 Vaccine ( season)COVID-19 Vaccine ( season)[facility] Start: 31-28-3541FFZZK-19 Vaccine ( season)COVID-19 Vaccine ( season)[facility]: 11-60-9104OgtjvhqajAccess Hospital Daytontart: 45-38-4431eWSO in Platelet poor plasma by Coagulation assayAccess Hospital Daytontart: 29-32-6371HijrcrxguAccess Hospital Daytontart: 06-18-2024 End: 97-16-2857VjnrfdptpAccess Hospital Daytontart: 91-63-1381Pqcduonh therapy procedureAccess Hospital Daytontart: 77-12-3411Rcteetni to occupational therapistAccess Hospital Daytontart: 98-75-0736Lgcagwaz admissionAccess Hospital Daytontart: 04-23-2024 End: 89-05-1887Wpaymwwthkxdr metabolic 2000 panel - Serum or PlasmaComprehensive Metabolic Panel Lab Routine Essential hypertension, benign Expected: 04/23/2024 (Approximate), Expires: 04/23/2025[facility] Work Phone: Comment on above:Expected: 04/23/2024 (Approximate), Expires: 04/23/2025Start: 04-23-2024 End: 03-36-5245Gwinpxxttkq peptide B [Mass/volume] in BloodB-Type Natriuretic Peptide Lab Routine SOB (shortness of breath) on exertion Expected: 04/23/2024 (Approximate), Expires: 04/23/2025UnProMedica Flower Hospital Work Phone: Comment on above:Expected: 04/23/2024 (Approximate), Expires: 04/23/2025Start: 04-20-2024 End: 77-80-8721Ihjfuur encounter srubqlcna16/31/2024 2:40 PM EDT Office Visit [place] [address] [address] Lalito Silva MD [address] [facility] [address], [address] [address] [facility]: 91-17-8318Alikjfzw screening Diabetes: Retinopathy ScreeningSouthwest [facility] Health [facility]: 12-09-2023Medicare Annual Wellness VisitMedicare Annual Wellness Visit (AWV) [facility]: 76-88-7094LWC, Provider: Lalito Silva, Status: Pen, Time: 2:50 PMFUV, Provider: Lalito Silva, Status: Tyree, Time: 2:50 PMMP-[place] [address] DO Work Phone: Start: 86-92-1322LUFCS-19 Vaccine () COVID-19 Vaccine ()[facility]: 65-41-2546Hnszlmsaj vaccinationInfluenza Vaccine (#1)[facility]: 76-89-2691HkbdwcdeyAccess Hospital Daytontart: 05-26-2023 [facility]: 21-05-1937LyacyjatmSelect Medical [facility] CenterStart: 84-08-3827XgaygfzdpSelect Medical Trihealth Rehabilitation Hospital CenterStart: 05-23-2023 [facility] CenterStart: 15-93-2535AnazdhsyxSelect Medical [facility] Rehabilitation Hospital CenterStart: 49-50-6397GjhmqtdkhSelect Medical [facility]health Rehabilitation Hospital CenterStart: 05-20-2023 [facility] CenterStart: 75-41-3229LydrzfzkoSelect Medical Trihealth Rehabilitation Hospital CenterStart: 30-02-7413UbkvmafimSelect Medical Trihealth Rehabilitation Hospital CenterStart: 05-17-2023 [facility] CenterStart: 81-93-2429SbfwbtvnwSelect Medical Trihealth Rehabilitation Hospital CenterStart: 06-12-1821PoewlkerkAccess Hospital Daytontart: 05-14-2023 Referral to cardiologistAccess Hospital Daytontart: 05-14-2023 Physical therapy procedureAccess Hospital Daytontart: 05-14-2023 Referral to occupational therapistAccess Hospital Daytontart: 71-75-1185Bhrvjsjw admissionAccess Hospital Daytontart: 05-14-2023 End: 98-66-2736ArxbtbncyAccess Hospital Daytontart: 12-24-8851GN cervical spine without contrastCT cervical spine wo [facility] Start: 36-68-3745OK Cervical spine WO [facility] Start: 17-96-5550CR of head without contrastCT head/brain wo [facility] CenterStart: 68-98-0045UJ Unspecified body region WO contrast [facility] CenterStart: 62-53-9641QW Chest WO [facility] Centertart: 33-09-1900OW of chest without contrastCT chest [facility] Hospitaltart: 20-62-5089KVE, Provider: Lalito Silva, Status: Pen, Time: 9:10 AMFUV, Provider: Lalito Silva, Status: Pen, Time: 9:10 AMPeaceHealth [facility]-[place] 250 DO Work Phone: Start: 77-26-7365PTMHX-19 Vaccine (5 - Pfizer series) COVID-19 Vaccine (5 - Pfizer series)[facility]art: 99-48-7166FwgkoxilhAccess Hospital Daytontart: 41-11-9757QHGOUSSLSF, Provider: LINDA TRACY ETCHER ENAMELING 1,[id number], Status: Pen, Time: 9:30 AM [place], Provider: LINDA TRACY ETCHER ENAMELING 1,[id number], Status: Pen, Time: 9:30 AMPeaceHealth Heart-[place] [address] DO Work Phone: Start: 05-80-1643ReybbolrcGood Samaritan Hospital Start: 07-02-2022 End: 26-15-2986SyjiyfbrdAccess Hospital Daytontart: 18-18-4881Oriwtmtzl of Pacemaker Lead into Right Ventricle, Percutaneous ApproachInsertion of Pacemaker Lead into Right Ventricle, Percutaneous ApproachAccess Hospital Daytontart: 44-99-3732Scvrbgnej of Pacemaker, Single Chamber into Chest Subcutaneous Tissue and Fascia, Percutaneous ApproachInsertion of Pacemaker, Single Chamber into Chest Subcutaneous Tissue and Fascia, Percutaneous Approach [facility]: 20-66-3400UCV, Provider: Lalito Silva, Status: Pen, Time: 11:30 AMFUV, Provider: Lalito Silva, Status: Pen, Time: 11:30 AMPeaceHealth [facility]-[place] [address] DO Work Phone: Start: 74-54-5458HLN, Provider: Lalito Silva, Status: Pen, Time: 8:40 AMFUV, Provider: Lalito Silva, Status: Pen, Time: 8:40 AMPeaceHealth Heart-[place] [address] DO Work Phone: Start: 08-50-2496Aeeakgad screeningDiabetes: Retinopathy ScreeningSumma Health Barberton Campusart: 09-22-2021 SURGNON, Provider: Naeem Ronquillo, Status: Pen, Time: 1:00 PMSURGNON, Provider: Naeem Ronquillo, Status: Pen, Time: 1:00 PM-[facility] [address] DO Work Phone: Start: 76-79-5257XLG High Risk: (Elderly (60+) or Population) (1 - 1-dose 75+ series)RSV High Risk: (Elderly (60+) or Population) (1 - 1-dose 75+ series)[facility] Start: 32-05-0699Mxeffmhgmfba vaccinationPneumococcal Vaccine (2 of 2 - PCV) [facility]art: 75-77-6030Kjnagkrthdeb Vaccine: 65+ Years (2 - PCV)Pneumococcal Vaccine: 65+ Years (2 - PCV)[facility]: 32-33-9753FLI patients and/or patients aged 60+ years (1 - 1-dose 60+ series)RSV patients and/or patients aged 60+ years (1 - 1-dose 60+ series)[facility]: 32-59-6411Uvfsla Vaccines (1 of 2)Zoster Vaccines (1 of 2)[facility]: 50-62-7508Jmvly screening for proteinDiabetes: Urine Protein Screening [facility]: 40-15-9840Mgjwxcxlv C screeningHepatitis C ScreeningUnFisher-Titus Medical Center: 07-75-5198Nrokqnmt foot examinationDiabetes: Foot ExamUnFisher-Titus Medical Center: 1945 Creatinine measurementCreatinine [facility] CenterUnFisher-[facility]: 58-87-7748Tblmicxtym A1c measurementDiabetes: Hemoglobin J7AIxhqldidfxFisher-Titus Medical Center: 14-72-1034Khdzr panelLipid PanelUnFisher-Titus Medical Center: 1945Medicare Annual Wellness VisitMedicare Annual Wellness Visit (AWV)[facility]: 96-43-0845Aeufradac measurementPotassium [facility] CenterUnFisher-[facility]: 1945 Urine screening for proteinDiabetes: Urine Protein ScreeningUnProMedica Flower HospitalAlbumin/Globulin ratioGood Samaritan HospitalAnion gap measurementGood Samaritan HospitalBasophils [#/volume] in Blood by Automated countGood Samaritan HospitalBasophils/100 leukocytes in Blood by Automated [facility] HospitalComprehensive metabolic 2000 panel - Serum or PlasmaGood Samaritan HospitalEosinophils [#/volume] in BloodGood Samaritan HospitalEosinophils/100 leukocytes in Blood by Automated [facility] HospitalErythrocyte distribution width [Ratio] by Automated [facility] Erythrocytes [#/volume] in BloodGood Samaritan HospitalGlobulin [Mass/volume] in SerumGood Samaritan HospitalHematocrit [Volume Fraction] of Magruder HospitalHemoglobin [Mass/volume] in BloodGood Samaritan HospitalLeukocytes [#/volume] corrected for nucleated erythrocytes in Blood by Automated counGood Samaritan HospitalLeukocytes [#/volume] in Magruder HospitalLymphocytes [#/volume] in Blood by Automated [facility] Lymphocytes/100 leukocytes in Blood by Automated [facility] HospitalMCH [Entitic mass] by Automated [facility] MCHC [Mass/volume] by Automated [facility] HospitalMCV [Entitic volume] by Automated [facility] HospitalMonocytes [#/volume] in Blood by Automated [facility] Monocytes/100 leukocytes in Blood by Automated [facility] HospitalNeutrophils [#/volume] in Blood by Automated [facility] HospitalNeutrophils/100 leukocytes in Blood by Automated [facility] HospitalNucleated erythrocytes [Presence] in Blood by Automated [facility] HospitalPatient EducationConcussion, Adult (DC) Laceration Repair With Stitches (DC)[facility] Work Phone: Patient referralSelect Medical Trihealth Rehabilitation Hospital [facility]tr Work Phone: Platelet mean volume [Entitic volume] in Blood by Automated [facility] HospitalPlatelets [#/volume] in Blood [facility] DaytonARS-CoV-2 (COVID-19) N gene [Presence] in Respiratory specimen by NA with probe detectionSelect Medical Trihealth Rehabilitation Hospital Ctr Work Phone: [facility] Immunizations Immunization DateImmunizationNotesCare YmzvxrywLsebwyet87-42-6389nmgpbdnps, high dose seasonal, preservative-freeGood Samaritan Hospital11-03-2023 influenza virus vaccine, unspecified formulationGood Samaritan Hospital11-03-2023influenza, high dose seasonal, preservative-freeBenleila Chavarria Other [employer]eduplan[employer] Other [id number] toxoid, reduced diphtheria toxoid, and acellular pertussis vaccine, adsorbedDO Modesto Chavarria Work Phone: [facility]10-02-2022COVID-19 Vaccine Pfizer - Documentation Purposes OnlyNaveenangelinaleila Chavarria Other [place] [employer] Other [id number], tetanus toxoids and acellular pertussis vaccine, unspecified formulationNaveenangelinaleila Chavarria Other [facility]10-02-2022Fluzone High-Dose Quadrivalent 0.7 ML Intramuscular Suspension Prefilled SyringeBenleila Chavarria Work Phone: mpK[facility] 021 DO Work Phone: [phone] 245-420710514426-12-6884edpadylbq virus vaccine, split virus (incl. purified surface antigen)Modesto Chavarria Other [place] [employer] Other 10915946-65-0349rsxpdthuv, high dose seasonal, preservative-freeLalito Silva MD Work Phone: [facility] Work Phone: [phone] 130-500210-620468-51-5454Djtgmi COVID-19 Vac Bivalent 30 MCG/0.3ML Intramuscular SuspensionBeangelinaleila Chavarria Work Phone: mp-[facility] 955 DO Work Phone: [phone] 307-578710152317-49-1933byofyizqp virus vaccine, unspecified formulationLalito Silva MD Work Phone: [facility]03-15-2022diphtheria, tetanus toxoids and pertussis vaccineBenjamin E Ball Work Phone: [facility]03-15-2022tetanus toxoid, reduced diphtheria toxoid, and acellular pertussis vaccine, adsorbed Lalito Silva MD Work Phone: [facility] Work Phone: [phone]wsg-ObsXMzvr COVID-19 Vacc 30 MCG/0.3ML Intramuscular SuspensionBenjamin E Ball Work Phone: [phone]-HcxbyBarry [place] [address] DO Work Phone: [phone] 500-976110505145-09-4839jgzbvomvp virus vaccine, split virus (incl. purified surface antigen)Modesto Playhem Other [place] [employer] Other 10645209-33-0046qtcmipvqj virus vaccine, unspecified formulationGood Samaritan Hospital09-17-2021influenza virus vaccine, unspecified formulationLalito Silva MD Work Phone: [facility] Work Phone: [phone]pyzxwj, injectable, quadrivalent, contains preservativeBenjamin E Ball Work Phone: mpBarry [place] [address] DO Work Phone: Comment on above:Series:57-25-3013Ulbsac-BioNTech COVID-19 Vacc 30 MCG/0.3ML Intramuscular SuspensionBenjamin E Ball Work Phone: mpK[facility]son [facility] 250 DO Work Phone: [phone]uv-OlyDXzgz COVID-19 Vacc 30 MCG/0.3ML Intramuscular SuspensionBenjamin E Ball Work Phone: mpK[facility]son [facility] 250 DO Work Phone: [phone] 243-250709-809878-08-4952lrprabvax virus vaccine, split virus (incl. purified surface antigen)Modesto Chavarria Other [facility]Select [facility] [employer] Other 09-326721-88-7457zkgtkvulw virus vaccine, unspecified formulationGood Samaritan Hospital09-01-2020influenza, seasonal, injectableBenjamin E Ball Work Phone: [phone]-KljtwMichael [place] [address] DO Work Phone: [phone]vsqusl virus vaccine, split virus (incl. purified surface antigen)Modesto Chavarria Other [facility]Select [facility] [employer] Other 10533994-10-6960igxqzjfsr virus vaccine, unspecified formulationGood Samaritan Hospital10-01-2019influenza virus vaccine, unspecified formulationBennathanielmin E Aura Work Phone: [phone]-TocaiMichael [place] [address] DO Work Phone: [phone]oqff toxoid, reduced diphtheria toxoid, and acellular pertussis vaccine, Fady Silva MD Work Phone: [facility] Work Phone: [phone]apjgwnq, tetanus toxoids and acellular pertussis vaccine, unspecified formulationModesto Chavarria Other [facility]10-01-2018influenza virus vaccine, unspecified formulationBenjamin E Ball Work Phone: [phone]-CaoluBarry [place] [address] DO Work Phone: [phone]kvrnlecx virus vaccine, split virus (incl. purified surface antigen)Modesto Chavarria Other [facility] [employer] Other 09-049659-55-8296pyeqgoqeq virus vaccine, unspecified formulationGood Samaritan Hospital09-20-2018Seasonal trivalent influenza vaccine, adjuvanted, preservative freeBenjamin E Playhem Work Phone: [phone]-YemewBarry V[place] [address] DO Work Phone: [phone] 636-746709267881-11-6875xnpyzzpyr virus vaccine, split virus (incl. purified surface antigen)Modesto Chavarria Other [facility] [employer] Other 09-486950-99-9433yvvxxrqph virus vaccine, unspecified formulationGood Samaritan Hospital09-19-2017influenza, high dose seasonal, preservative-freeBenjamin E Playhem Work Phone: [phone]-ThpzmBar[place] [address] DO Work Phone: [phone]bhcezart virus vaccine, unspecified formulationBenjamin E Playhem Work Phone: mp729-2673NL-PpbpfBarry V[place] [address] DO Work Phone: [phone]wwbslctnexh polysaccharide vaccine, 23 valentBenjamin E Playhem Work Phone: [phone]-YjopzBarry V[place] [address] DO Work Phone: [phone]mdxapx virus vaccine, split virus (incl. purified surface antigen)Modesto Chavarria Other [place] [employer] Other 09-125815-12-1330myfzlnusu virus vaccine, unspecified formulationGood Samaritan Hospital09-15-2016pneumococcal conjugate vaccine, 13 valentBenjanikolay Chavarria Other [facility]09-25-2014tetanus and diphtheria toxoids, adsorbed, preservative free, for adult use (5 Lf of tetanus toxoid and 2 Lf of diphtheria toxoid)Modesto Chavarria Other [facility]01-21-2014 pneumococcal polysaccharide vaccine, 23 valentBenjamin Aura Other [facility]09-11-2013tetanus and diphtheria toxoids, adsorbed, preservative free, for adult use (5 Lf of tetanus toxoid and 2 Lf of diphtheria toxoid)Modesto Chavarria Other [facility] Payers DatePayer CategoryPayerPolicy [id number] [id number] [id number] 2.16840.1.811019.3.57[id number] 2.16.840.1.342511.3.57[id number] 2.16.840.1.811805.3.57[id number] 2.16.840.1.359786.3.57[id number] 2.16.840.1.613024.3.57[id number] 2.16.840.1.095638.3.57[id number] 2.16.840.1.551147.3.57[id number] 2.16.840.1.247134.3.57[id number] 2.16.840.1.064625.3.57[id number] 2.16.840.1.078053.3.57[id number] 2.16.840.1.553415.3.57[id number] 2.16.840.1.171542.3.57[id number] 2.16.840.1.650509.3.57[id number] 2.16.840.1.874050.3.57[id number] 2.16.840.1.283370.3.57[id number] 2.16.840.1.546403.3.579.[id number] 2.16.840.1.928847.3.57[id number] 2.16.840.1.953225.3.579.2.70[id number] 2.16.840.1.630826.3.579.2.39491-31-1980Bznkint984945242 2.16.840.1.400930.3.579.2.88862-22-0840Kypuiwv300875238 2.16.840.1.089437.3.579.2.0[id number] 2.16.840.1.290358.3.579.2.[id number] 2.16.840.1.372858.3.57[id number] 2.16.840.1.049140.3.57[id number] 2.16.840.1.578923.3.57[id number] 2.16.840.1.523680.3.579.2.37157-86-6666Insyddj773618478 2.16.840.1.168125.3.579.2.68693-53-3943Xzleovt596808192 2.16.840.1.246110.3.579.2.6[id number] 2.16.840.1.040655.3.579.2.73937-29-3554Hhfsfat193144168 2.16840.1.516528.3.57[id number] 2.16.840.1.085221.3.57[id number] 2.16.840.1.414554.3.57[id number] 2.16840.1.850078.3.579.[id number] 2.16.840.1.686679.3.57[id number] 2.16.840.1.185602.3.57[id number] 2.16.840.1.180146.3.579.2.727UnknownUnknownAARP [facility] [id number] [id number] 2.16.840.1.8[id number] 2.16.840.1.160423.3.579.2.531 Social History DateTypeDetailFacilityStart: 10-06-2023 End: 29-19-3648Bj illicit drug useNo illicit drug use-[facility] [place] [address] DO Work Phone: Comment on above:QUIT 1996;Start: 07-02-2022 End: 00-40-4304Opddlcl smoking status NHISEx-smoker (finding)[facility]: 02-92-7165Ceb [facility]: 70-64-1517Khsalfa smoking status NHISTobacco smoking consumption unknown (finding)[facility]: 10-06-2023 End: 00-25-2961Zwu Assigned At [facility] Near Page Other History of tobacco useCurrent smokerUnProMedica Flower Hospital Work Phone: History of tobacco useCigarette SmokerUnProMedica Flower Hospital Work Phone: Start: 10-07-2023 End: 93-04-2087Qmxauyy intakeCurrent drinker of alcohol (finding)[facility] Work Phone: Start: 19-48-6457Uljaeew CommentoccasionalUniversSt. Vincent [facility] Work Phone: Start: 74-44-5993Kec Assigned At BirthNot on file [facility] Work Phone: Start: 09-27-2023 End: 54-99-7897Lmulpkvj to SARS-CoV-2 (event)Not sureUnProMedica Flower HospitalStart: 15-08-3307Nmmygej smoking status NHISNever smoked tobacco (finding)[facility]: 77-12-7900AzsGhvk (finding) [facility]: 97-39-2054Zdtthrv use and exposure Smokeless tobacco non-userUniversity Hospitals Samaritan Medical Center Work Phone: Medical Equipment Procedure CodeEquipment CodeEquipment Original TextEquipment IdentifierDates Insertion, pacemakerEndocardial pacing lead ()[id number] FDAStart: 26-53-4502Kiwzkiueo, pacemakerSingle-chamber implantable pacemaker, rate-responsive ()[id number] FDAStart: 69-14-3693Svn Needle, Diabetic (Bd Ultra-Fine Cindy Pen Needle) 32 gauge x 5/32 needleStart: 74-10-4987Hag Needle, Diabetic (Bd Ultra-Fine Cindy Pen Needle) 32 gauge x 5/32 needleStart: 86-90-0063Hgy Needle, Diabetic (Bd Ultra-Fine Cindy Pen Needle) 32 gauge x 5/32 needleStart: 65-22-8348Zyv Needle, Diabetic (Bd Ultra-Fine Cindy Pen Needle) 32 gauge x 5/32 needleStart: 38-16-2905Tdtfp Sugar Diagnostic (Accu-Chek Guide Test Strips) stripStart: 95-73-7577Fzr Needle, Diabetic (Bd Ultra-Fine Cindy Pen Needle) 32 gauge x 5/32 needleStart: 89-67-2043Ilcwq Sugar Diagnostic (Accu- Chek Guide Test Strips) stripStart: 12-05-2024 End: 26-37-7654Ogygt Sugar Diagnostic (Accu-Chek Guide Test Strips) stripStart: 14-32-6397Fxg Needle, Diabetic (Bd Ultra-Fine Cindy Pen Needle) 32 gauge x 5/32 needleStart: 72-49-9601Qkdcq Sugar Diagnostic (Accu-Chek Guide Test Strips) stripStart: 12-05-2024 End: 12-05-2024 Goals DatePatient GoalDesired Activity/State Functional Status SkplUeorgxkzeoGjkjccXpxienvi75-08-7145Paaomlbjji statusPatient at Baseline [facility] Work Phone: 1(972) 923-824508437924-22-4137Mjvnflveis statusPatient is Progressing Toward BaselineK[facility] Work Phone: Mental Status EkkhAalxcrxtgeMftcjcUswgwydc71-37-9413Cgwrnahdx functionCognitive Status Patient at [facility] Work Phone: 1(502) 472-35090931242-96-6119Ltjfrgylx functionCognitive Status Patient at [facility] Work Phone: Clinical Notes 02-22-2023 to 09-13-2025 Note Date & NytlJyufMqdluils94-04-6890 NotePatient Education Urology Urinary Incontinence Urinary incontinence refers to a condition in which a person is unable to control where and when topass urine. A person with this condition will urinate involuntarily. This means that the person urinates when he or she does not mean to. What are the causes? This condition may be caused by: ??? Medicines. ??? Infections. ??? Constipation. ??? Overactive bladder muscles. ??? Weak bladder muscles. ??? Weak pelvic floor muscles. These muscles provide support for the bladder, intestine, and, in women, the uterus. ??? Enlarged prostate in men. The prostate is a gland near the bladder. When it gets too big, it can pinch the urethra. With the urethra blocked, the bladder can weaken and lose the ability to empty properly. ??? Surgery. ??? Emotional factors, such as anxiety, stress, or post-traumatic stress disorder (PTSD). ??? Spinal cord injury, nerve injury, or other neurological conditions. ??? Pelvic organ prolapse. This happens in women when organs move out of place and into the vagina.This movement can prevent the bladder and urethra from working properly. What increases the risk? The following factors may make you more likely to develop this condition: ??? Age. The older you are, the higher the risk. ??? Obesity. ??? Being physically inactive. ??? and childbirth. ??? Menopause. ??? Diseases that affect the nerves or spinal cord. ??? Long-term, or chronic, coughing. This can increase pressure on the bladder and pelvic floor muscles. What are the signs or symptoms? Symptoms may vary depending on the type of urinary incontinence you have. They include: ??? A sudden urge to urinate, and passing urine involuntarily before you can get to a bathroom (urge incontinence). ??? Suddenly passing urine when doing activities that force urine to pass, such as coughing, laughing, exercising, or sneezing (stress incontinence). ??? Needing to urinate often but urinating only a small amount, or constantly dribbling urine (overflow incontinence). ??? Urinating because you cannot get to the bathroom in time due to a physical disability, such as arthritis or injury, or due to a communication or thinking problem, such as Alzheimer's disease (functional incontinence). How is this diagnosed? This condition may be diagnosed based on: ??? Your medical history. ??? A physical exam. ??? Tests, such as: ? Urine tests. ? [...] have and its cause. Treatment may include: ??? Lifestyle changes, such as: ? Quitting smoking. [...] whole grains, and fresh fruits and vegetables. ??? Behavioral changes, such as: ? Pelvic floor muscle exercises. ? Bladder training, such as lengthening the amount of time between bathroom breaks, or using the bathroom at regular intervals. ? Using techniques to suppress bladder urges. This can include distraction techniques or controlledbreathing exercises. ??? Medicines, such as: ? Medicines to relax the bladder muscles and prevent bladder spasms. ? Medicines to help slow or prevent the growth of a man's prostate. ? Botox injections. These can help relax the bladder muscles. ??? Treatments, such as: ? Using pulses of electricity to help change bladder reflexes (electrical nerve stimulation). ? For women, using a medical officer to prevent urine leaks. This is a small, tampon-like, disposable device that is inserted into the urethra. ? Injecting collagen or carbon beads (bulking agents) into the urinary sphincter. These can help thicken tissue and close the bladder opening. ? Surgery. Follow these instructions at home: Lifestyle ??? Limit alcohol and caffeine. These can fill your bladder quickly and irritate it. ??? Keep yourself clean to help prevent odors and skin damage. Ask your health care provider (more content not included)...[facility] 05-07-2025 History of Present illness Narrative* Carri Marques MD - 05/07/2025 3:30 PM EDT Chief Complaint Patient presents with Follow-up 6 month Follow up for Atrial Fibrillation Subjective Nirmal Chaidez is a 79 y.o. male HPI Patient is here for follow-up and management for permanent atrial fibrillation, AV andrés disease, coronary artery disease and morbid obesity. Since last time I saw him he denies any change in cardiacstatus or symptoms. He has lost q around 14 pounds over the last year. He has been on Ozempic. His blood pressure running on the low range but completely asymptomatic. He reports he had his device barbie ck done not too long ago at [facility] result not available to me. His lab [...] 5. Complete heart block 6. Atherosclerosis of [place] coronary artery of [place] heart without angina pectoris 7. BMI 45.0-49.9, adult (Multi) 8. QUETA (obstructive sleep apnea) 9. Former smoker Scribe Attestation By signing my name below, I, Carla Whaley LPN, Scribe attest that this documentation has [...] exam, discussion and plan. documented in this encounterUniversity [facility]als [facility] Work Phone: 1(888) 986-238506-17-2025 Instructions* Patient Instructions* Carla Magana LPN - 05/07/2025 3:30 PM [...] follow up per routine documented in this [facility] Work Phone: 1(258) 257-357512-31-2024 Evaluation note* Diagnosis Onset Date Resolution Status Admit Date Atrial fibrillation acuteDecember 2023 9:32amChronic kidney diseaseacuteDecember 2023 9:32amHigh cholesterolacuteDecember 2023 9:32amHypertensionacuteDecember 2023 9:32amMajor depressionacutecember 2023 9:32amOSA (obstructive sleep apnea)acuteNovember 20, 2024 9:32amType 2 diabetes mellitus with hyperglycemiaacuteDecember 2023 9:32amASHD (arteriosclerotic heart disease)acuteMarch 2024 10:06amAtrial fibrillationacuteMarch 2024 10:06amChronic kidney diseaseacuteMarch 2024 10:06amHigh cholesterolacute January 30, 2025 10:06amHypertensionacuteMarch 2024 10:06amMajor depressionacuteJanch 2024 10:06amMedicare annual wellness visit, subsequentacuteJanuary 30, 2025 10:06amOSA (obstructive sleep apnea)acute[facility] 10:06amScreening PSA (prostate specific antigen)acuteJanch 2024 10:06amType 2 diabetes mellitus with hyperglycemiaacuteJanuary 30, 2025 10:06am [facility] Work Phone: 1(610) 569-555212-05-2024 History of Present illness Narrative* Carri Marques [...] one tablet by mouth as directed by [facility], Disp: , Rfl: Assessment/Plan 1. Permanent atrial fibrillation (Multi) Follow Up In Cardiology Follow Up In Cardiology ECG 12 Lead 2. SOB (shortness of breath) on exertion 3. Complete heart block 4. Pacemaker 5. Mixed hyperlipidemia 6. Essential hypertension, benign 7. Atherosclerosis of [place] coronary artery of [place] heart without angina pectoris 8. QUETA (obstructive sleep apnea) 9. BMI 50.0-59.9, adult (Multi) 10. Former smoker Scribe Attestation By signing my name below, I, Magdalena Remington BOLAÑOS , Scribe attest that this documentation has [...] exam, discussion and plan. documented in this encounterUniversity Hospitals [facility] Work Phone: 1(646) 577-653512-05-2024 Instructions* Patient Instructions* Magdalena Feliciano LPN - [...] through Care Everywhere. * Heart Healthy Diet (Russian) documented in this encounterUniversity Hospitals [facility] Work Phone: 1(632) 231-741908-01-2024 Progress note Author Stalin Miranda [facility] June 21, 2024 1:50pmNote Date/TimeAugust 2023 1:42pm[place] [address] Hospitalist Progress Note Signed Patient: Nimral Chaidez MR#: [id number] : 1945 Acct:[id number] Age/Sex: 78 / M Adm Date: 4 Loc: 3T Room: [address] [place] [address] Type: ADM IN Attending Dr: Stalin Miranda [...] with pacemaker in place. EKG notes rate-controlled A- fib. Interrogated pacemaker reportedly has no events -Monitor [...] Stalin Miranda MD> 06/21/24 1350 [facility] Work Phone: 1(181) 127-103507-31-2024 Progress note Author Stalin Miranda [facility] June 20, 2024 1:50pmNote Date/TimeJuly 2023 1:27pmMount [place] [address] Hospitalist Progress Note Signed Patient: Nirmal Chaidez MR#: [id number] : 1945 Acct:[id number] Age/Sex: 78 / M Adm Date: 4 Loc: 3T Room: [address] [place] [address] Type: ADM IN Attending Dr: Stalin Miranda [...] [facility]any[facility] need 2 additional midnights for patient [...] Lactated Ringers IV 06/20/24 22:24 75 mls/hr .[id number] KAYKAY Administration Insulin Glargine 10 units 06/19/24 [...] on presentation, but orthostatics negative. He appears euvolemicat this time. Blood pressures are stable, patient does nothave a significant amount of hypotension.Does have history of heart block, withpacemaker in [...] code Documented By: Stalin Miranda MD 4 [id number] Signed By: <Electronically signed by Stalin Miranda MD> 06/20/24 5308 [facility] Work Phone: 1(792) 350-719107-31-2024 Progress note Author Carri Marques [facility] June 20, 2024 11:29amNote Date/TimeJuly 2023 11:[address] [address] Cardiology Progress Note Signed Patient: Nirmal Chaidez MR#: [id number] : 1945 Acct:[id number] Age/Sex: 78 / M Adm Date: 4 Loc: 3T Room: [address] [place] [address] Type: ADM IN Attending Dr: Stalin Miranda [...] MPV Neut % (Auto) Lymph % (Auto) Otero % (Auto) Eos % (Auto) Baso % (Auto) Nucleat RBC Rel Count Neut # (Auto) Lymph # (Auto) [place] # (Auto) Eos # (Auto) Baso # [...] % (Auto) 70.3 Lymph % (Auto) 18.3 [place]o % (Auto) 8.0 Eos % (Auto) 2.7 Baso % (Auto) 0.7 Nucleat RBC Rel Count 0.2 Neut # (Auto) 6.1 Lymph # (Auto) 1.6 Otero # (Auto) 0.7 Eos # (Auto) 0.2 [...] MD Carri Marques> 06/20/24 1129 [facility] Work Phone: 1(357) 470-955907-30-2024 Progress note Author Stalin Miranda [facility] June 19, 2024 8:14pmNote Date/TimeJuly 2023 7:37pmMount [place] [address] Hospitalist Progress Note Signed Patient: Nirmal Chaidez MR#: [id number] : 1945 Acct:[id number] Age/Sex: 78 / M Adm Date: 4 Loc: Room: [address] [place] [address] Type: ADM IN Attending Dr: Stalin Miranda [...] 104/67 93 L Room Air 21 06/19/24 09:06/19/24 16:06/19/24 16:06/19/24 16:06/19/24 16:06/19/24 16:06/18/24 23:31 Narrative: Constitutional: Obese WM, resting in [...] Flush Vitamin D 125 mcg 06/19/24 09:00 07/30/24 09:03 Cholecalciferol 125 Mcg (5,000 Units) Capsule [...] <Electronically signed by Stalin Miranda MD> 06/19/242013 [facility] Work Phone: 1(168) 871-444407-30-2024 Consult note Author Carri Marques [facility] June 19, 2024 11:38amNote Date/TimeJuly 2023 11:[place] [id number] Cardiology Consult Note Signed Patient: Nirmal Chaidez MR#: [id number] : 1945 Acct:[id number] Age/Sex: 78 / M Adm Date: 4 Loc: 3T Room: [address] [place] [address] Type: ADM INOo Attending Dr: Stalin Miranda [...] back in 2016 presented to the hospital withpresyncopal episode. Patient report over the last few [...] negative other than mentioned above [facility] Medical History (Updated 06/18/24 @ 23:00 by [...] 06/19/24 09:00 06/19/24 09:00 06/19/24 09:00 06/19/24 09:06/18/24 23:31 Const General: cooperative, comfortable, no acute [...] Lymph # (Auto) 2.2 1.9 (1.00-4.8) x10E3/uL [place]tero # (Auto) 0.7 0.8 (0.0-0.8) x10E3/uL Eos [...] ml @ 999 mls/hr IV .Q31M ONE Rx#:[id number] Oral 200 / 200 Other: # Voids [...] MD Carri Marques> 06/19/24 1138 [facility] Work Phone: 1(199) 384-754607-30-2024 History and physical note Author Stalin Miranda [facility] June 18, 2024 11:07pmNote Date/TimeJuly 2023 10:05pmMount [place] [address] Hospitalist H&P Signed Patient: Nirmal Chaidez MR#: [id number] : 1945 Acct:[id number] Age/Sex: 78 / M Adm Date: 4 Loc: Room: [address] [place] [address] Type: ADM INOo Attending Dr: Stalin Miranda [...] cannot remember whether or not he lost consciousnessduring this episode. In the emergency department, blood [...] for that which is noted above in [facility] Medical History (Updated 06/18/24 @ 23:00 [...] % (Auto) 18.8 % (.) 06/18/24 15:52 Otero % (Auto) 5.6 % (.) 06/18/24 15:52 Eos % (Auto) 1.1 % (.) 06/18/24 15:52 Baso % (Auto) 0.6 % (.) 06/18/24 15:52 Nucleat RBC Rel Count 0.1 /100 WBC (0-0.5) 06/18/24 15:52 Neut # (Auto) 8.6 x10E3/uL (1.8-7.7) H 06/18/24 15:52 Lymph # (Auto) 2.2 x10E3/uL (1.00-4.8) 06/18/24 15:52 Otero # (Auto) 0.7 x10E3/uL (0.0-0.8) 06/18/24 15:52 [...] pH 5.5 (5.0-9.0) 06/18/24 19:00 Ur Specific [place] 1.014 (1.001-1.030) 06/18/24 19:00 Urine Protein Negative [...] days): 2 Documented By: Stalin Miranda MD 1 [id number] Signed By: <Electronically signed by Stalin Miranda MD> 06/18/24 6307 [facility] Work Phone: 1(290) 362-824406-03-2024 History of Present illness Narrative* Lalito Silva [...] one tablet by mouth as directed by [facility], Disp: , Rfl: 1. Pacemaker [...] - B-Type Natriuretic Peptide 7. Atherosclerosis of [place] coronary artery of [place] heart without angina pectoris No recurrence of [...] exam, discussion and plan. documented in this encounterUniversity Hospitals [facility] Work Phone: 1(109) 122-300206-03-2024 Instructions* Patient Instructions* Destiney Rodrigez LPN - [...] time of your visit. documented in this encounterUniversity Hospitals [facility] Work Phone: 1(324) 432-352302-05-2024 Evaluation note* Encounter Date Diagnosis Assessment Notes [...] reviewed and amended by provider signed below. Dec,SHD (arteriosclerotic heart disease) (ICD-10 - I25.10)This patient is stable without activity related CP, dyspnea or lightheadedness. They are instructedto continue exercise and AHA diet plan. Continue secondary prevention measures. Dec,ermanent atrial fibrillation (ICD-10 - I48.21)This patient is in NSR or rate controlled. This patient is anticoagulated to prevent thromboembolic events. They are maintaining regular scheduled appts with their medical apparatus model maker. No bleeding complications Dec,Stage 3a chronic kidney disease (ICD-10 - N18.31)The patient is instructed on adequate control of hypertension and diabetes, if appropriate. They are also educated on the associated risks of NSAIDs and PPI use with kidney disease. They were instructed on adequate fluid balance and to avoid dehydration. Dec,Type 2 diabetes mellitus with hyperglycemia, without long-term current use of insulin (ICD-10 - E11.65)This patient is following a comprehensive diabetic treatment [...] office visit. 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 They are also encouraged to continue exercise to achieve/maintain a normal BMI. They are also Patient is instructed on home BP measurements: - rest for 5 minutes w/o talking.- positioned w/ feet on floor and arm supported.- average best 2/3 readings w/ goal < 135/85.- update office w/ home readings in 2 weeks. Dec,OSA (obstructive sleep apnea) (ICD-10 - G47.33)AHI 58, BiPAP This patient is aware of the benefits associated with QUETA: With continued use, the patient reduces the risk for UT, CVA, HTN, cardiac dysrhythmias and sudden cardiac deaths.The patient is also aware of the association between QUETA and morning headaches, daytime somnolence, fatigue and obesity, whichalso has been improved with continued use.The patient is compliant with treatment, wearing the equipment every night for greater than 4 hours.The patient is instructed to continue use of the CPAP forOSA treatment. Dec,GAD (generalized anxiety disorder) (ICD-10 - F41.1) Dec,Elevated cholesterol (ICD-10 - E78.00)Instructed on diet and exercise with continued statin therapy.Discussed the beneficial effects of lo wering cholesterol in reducing the risk for cerebrovascular and cardiovascular disease. Dec,hronic venous insufficiency (ICD-10 - I87.2)Avoid salt and elevate lower extremities, support stockings, inspect legs and feet daily for blisters and ulcerations. Dec,omplete heart block (ICD-10 - I44.2) Dec,Screening PSA (prostate specific antigen) (ICD-10 - Z12.5) Dec,cute on chronic diastolic congestive heart failure (ICD-10 - I50.33) [facility] Other 11-27-2023 Evaluation note* Encounter Date Diagnosis Assessment Notes Treatment Notes Treatment Clinical Notes Sep, ASHD (arteriosclerotic heart dis ease) (ICD-10 - I25.10) This patient is stable without activity related CP, dyspnea or lightheadedness. They are instructedto continue exercise and AHA diet plan. Continue secondary prevention measures. Sep,Stage 3a chronic kidney disease (ICD-10 - N18.31)The patient is instructed on adequate control of hypertension and diabetes, if appropriate. They are also educated on the associated risks of NSAIDs and PPI use with kidney disease. They were instructed on adequate fluid balance and to avoid dehydration. Sep,Type 2 diabetes mellitus with hyperglycemia, without long-term current use of insulin (ICD-10 - E11.65)This patient is following a comprehensive diabetic treatment [...] and plan to stop Metformin in future [facility] Other 11-27-2023 Evaluation note* Encounter Date Diagnosis Assessment Notes Treatment Notes Treatment Clinical Notes Sep, ASHD (arteriosclerotic heart dis ease) (ICD-10 - I25.10) This patient is stable without activity related CP, dyspnea or lightheadedness. They are instructedto continue exercise and AHA diet plan. Continue secondary prevention measures. Sep,Stage 3a chronic kidney disease (ICD-10 - N18.31)The patient is instructed on adequate control of hypertension and diabetes, if appropriate. They are also educated on the associated risks of NSAIDs and PPI use with kidney disease. They were instructed on adequate fluid balance and to avoid dehydration. Sep,Type 2 diabetes mellitus with hyperglycemia, without long-term current use of insulin (ICD-10 - E11.65)This patient is following a comprehensive diabetic treatment [...] and plan to stop Metformin in future Sep,Morbid (severe) obesity due to excess calories (ICD-10 - E66.01)This patient has been instructed on a low-fat, high-fiber diet. They are instructed to reduce calories, portion sizes and snacks. It is recommended that they exercise for 30 minutes, 3-5 times weekly. Use of GLP-1 w/ diabetes will have dual benefit in weight loss Sep,ody mass index [BMI] 50.0-59.9, adult (ICD-10 - Z68.43) [facility] Other 11-17-2023 History of Present illness Narrative* [...] one tablet by mouth as directed by [facility], Disp: , Rfl: Assessment/Plan 1. Pacemaker Satisfactory device checks demonstrating greater than 10-year battery life 2. Permanent atrial fibrillation (CMS/HCC) Treated with rate control and antithrombotic therapy. Stable 3. Mixed hyperlipidemia Well-controlled on current therapy 4. Essential hypertension, benign Well-controlled on current therapy 5. Complete heart block (CMS/HCC) Necessitating pacemaker implantation. Device checks are satisfactory 6. Atherosclerosis of [place] coronary artery of [place] heart without angina pectoris Asymptomatic. documented in this encounterUniversity Hospitals [facility] Work Phone: [phone] Instructions* Patient Instructions* Ashleigh Starks LPN - [...] follow up per routine [facility] Work Phone: 1(441) 555-582311-03-2023 Evaluation note* Encounter Date Diagnosis Assessment Notes Treatment Notes Treatment Clinical Notes Sep, ASHD (arteriosclerotic heart dis ease) (ICD-10 - I25.10) This patient is stable without activity related CP, dyspnea or lightheadedness. They are instructedto continue exercise and AHA diet plan. Continue secondary prevention measures. Sep,ermanent atrial fibrillation (ICD-10 - I48.21)This patient is in NSR or rate controlled. This patient is anticoagulated to prevent thromboembolic events. They are maintaining regular scheduled appts with their medical apparatus model maker. No bleeding complications Sep,Stage 3a chronic kidney disease (ICD-10 - N18.31)The patient is instructed on adequate control of hypertension and diabetes, if appropriate. They are also educated on the associated risks of NSAIDs and PPI use with kidney disease. They were instructed on adequate fluid balance and to avoid dehydration. 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 They are also encouraged to continue exercise to achieve/maintain a normal BMI. Sep,OSA (obstructive sleep apnea) (ICD-10 - G47.33)AHI 58, BiPAP This patient is aware of the benefits associated with QUETA: With continued use, the patient reduces the risk for UT, CVA, HTN, cardiac dysrhythmias and sudden cardiac deaths.The patient is also aware of the association between QUETA and morning headaches, daytime somnolence, fatigue and obesity, whichalso has been improved with continued use.The patient is compliant with treatment, wearing the equipment every night for greater than 4 hours.The patient is instructed to continue use of the CPAP forOSA treatment. Sep,AD (generalized anxiety disorder) (ICD-10 - F41.1) Sep,Elevated cholesterol (ICD-10 - E78.00)Instructed on diet and exercise with continued statin therapy.Discussed the beneficial effects of lo wering cholesterol in reducing the risk for cerebrovascular and cardiovascular disease. Sep,hronic venous insufficiency (ICD-10 - I87.2)Avoid salt and elevate lower extremities, support stockings, inspect legs and feet daily for blisters and ulcerations. Sep,omplete heart block (ICD-10 - I44.2)s/p PM insertion. [facility] Other 11-03-2023 Evaluation note* Encounter Date Diagnosis Assessment Notes Treatment Notes Treatment Clinical Notes Sep, ASHD (arteriosclerotic heart dis ease) (ICD-10 - I25.10) This patient is stable without activity related CP, dyspnea or lightheadedness. They are instructedto continue exercise and AHA diet plan. Continue secondary prevention measures. Sep,ermanent atrial fibrillation (ICD-10 - I48.21)This patient is in NSR or rate controlled. This patient is anticoagulated to prevent thromboembolic events. They are maintaining regular scheduled appts with their medical apparatus model maker. No bleeding complications Sep,Stage 3a chronic kidney disease (ICD-10 - N18.31)The patient is instructed on adequate control of hypertension and diabetes, if appropriate. They are also educated on the associated risks of NSAIDs and PPI use with kidney disease. They were instructed on adequate fluid balance and to avoid dehydration. 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 They are also encouraged to continue exercise to achieve/maintain a normal BMI. Sep,OSA (obstructive sleep apnea) (ICD-10 - G47.33)AHI 58, BiPAP 18/14 This patient is aware of the benefits associated with QUETA: With continued use, the patient reduces the risk for UT, CVA, HTN, cardiac dysrhythmias and sudden cardiac deaths.The patient is also aware of the association between QUETA and morning headaches, daytime somnolence, fatigue and obesity. Noncompliant Sep,AD (generalized anxiety disorder) (ICD-10 - F41.1) Sep,Elevated cholesterol (ICD-10 - E78.00)Instructed on diet and exercise with continued statin therapy.Discussed the beneficial effects of lo wering cholesterol in reducing the risk for cerebrovascular and cardiovascular disease. Sep,hronic venous insufficiency (ICD-10 - I87.2)Avoid salt and elevate lower extremities, support stockings, inspect legs and feet daily for blisters and ulcerations. Sep,omplete heart block (ICD-10 - I44.2)s/p PM insertion. [facility] Other 08-03-2023 Evaluation note* Encounter Date Diagnosis Assessment Notes Treatment Notes Treatment Clinical Notes Jun, Type 2 diabetes marino itus with hyperglycemia, without long-term current use of [...] Microalbumin, Dilated eye exam and Foot exam Jun,SHD (arteriosclerotic heart disease) (ICD-10 - I25.10)This patient is stable without activity related CP, dyspnea or lightheadedness. They are instructedto continue exercise and AHA diet plan. Jun,ermanent atrial fibrillation (ICD-10 - I48.21)This patient is in NSR or rate controlled. This patient is anticoagulated to prevent thromboembolic events. They are maintaining regular scheduled appts with their medical apparatus model maker. No bleeding complications Jun,Stage 3a chronic kidney disease (ICD-10 - N18.31)The patient is instructed on adequate control of hypertension and diabetes, if appropriate. They are also educated on the associated risks of NSAIDs and PPI use with kidney disease. They were instructed on adequate fluid balance and to avoid dehydration. 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 They are also encouraged to continue exercise to achieve/maintain a normal BMI. Jun,losed fracture of multiple ribs of left side with routine healing, subsequent encounter (ICD-10 - S22.42XD)Much improved, no longer w/ pleuritic chest pain. Instructed to gradually increase activity Fall precautions Jun,OSA (obstructive sleep apnea) (ICD-10 - G47.33)AHI 58, BiPAP / This patient is aware of the benefits associated with QUETA: With continued use, the patient reduces the risk for UT, CVA, HTN, cardiac dysrhythmias and sudden cardiac deaths.The patient is also aware of the association between QUETA and morning headaches, daytime somnolence, fatigue and obesity, whichalso has been improved with continued use.The patient is compliant with treatment, wearing the equipment every night for greater than 4 hours.The patient is instructed to continue use of the CPAP forOSA treatment. Jun,cute allergic rhinitis due to pollen (ICD-10 - J30.1)Flonase and Yumiko during exacerbation of allergic symptoms. Kenalog injection for severe symptoms Aware will increase BS temporarily [facility] Other 08-03-2023 Evaluation note* Encounter Date Diagnosis Assessment Notes Treatment Notes Treatment Clinical Notes Jun, Type 2 diabetes marino itus with hyperglycemia, without long-term current use of [...] Microalbumin, Dilated eye exam and Foot exam Jun,SHD (arteriosclerotic heart disease) (ICD-10 - I25.10)This patient is stable without activity related CP, dyspnea or lightheadedness. They are instructedto continue exercise and AHA diet plan. Jun,ermanent atrial fibrillation (ICD-10 - I48.21)This patient is in NSR or rate controlled. This patient is anticoagulated to prevent thromboembolic events. They are maintaining regular scheduled appts with their medical apparatus model maker. No bleeding complications Jun,Stage 3a chronic kidney disease (ICD-10 - N18.31)The patient is instructed on adequate control of hypertension and diabetes, if appropriate. They are also educated on the associated risks of NSAIDs and PPI use with kidney disease. They were instructed on adequate fluid balance and to avoid dehydration. 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 They are also encouraged to continue exercise to achieve/maintain a normal BMI. Jun,losed fracture of multiple ribs of left side with routine healing, subsequent encounter (ICD-10 - S22.42XD)Much improved, no longer w/ pleuritic chest pain. Instructed to gradually increase activity Fall precautions Jun,OSA (obstructive sleep apnea) (ICD-10 - G47.33)AHI 58, BiPAP This patient is aware of the benefits associated with QUETA: With continued use, the patient reduces the risk for UT, CVA, HTN, cardiac dysrhythmias and sudden cardiac deaths.The patient is also aware of the association between QUETA and morning headaches, daytime somnolence, fatigue and obesity Noncompliant Jun,cute allergic rhinitis due to pollen (ICD-10 - J30.1)Flonase and Yumiko during exacerbation of allergic symptoms. Kenalog injection for severe symptoms Aware will increase BS temporarily [facility] Other 07-18-2023 Evaluation note* Encounter Date Diagnosis Assessment Notes Treatment Notes Treatment Clinical Notes May, Type 2 diabetes marino itus with hyperglycemia, without long-term current use of insulin (ICD-10 - E11.65) [facility] Other 07-05-2023 Evaluation note* Encounter Date Diagnosis Assessment Notes Treatment Notes Treatment Clinical Notes May, Type 2 diabetes marino itus with hyperglycemia, without long-term current use of insulin (ICD-10 - E11.65) [facility] Other 07-03-2023 Evaluation note* Encounter Date Diagnosis Assessment Notes Treatment Notes Treatment Clinical Notes May, Vitamin D deficiency (ICD-10 - E 55.9) [facility] Other 06-25-2023 History and physical note Author Stalin Miranda [facility] May 14, 2023 11:31pmNote Date/TimeJune 2022 10:17pm[place] [address] Hospitalist H&P Signed Patient: Nirmal Chaidez MR#: [id number] : 1945 Acct:[id number] Age/Sex: 77 / M Adm Date: 3 Loc: Room: [address] [place] [address] Type: ADM IN Attending Dr: Stalin Miranda [...] 3 weeks ago and was admitted to [facility] for 1 week and subsequently went [...] CHRISTIE, with BUN/creatinine of 38/1.7 from 03/12.13 inOctober 2021. Lab work otherwise within normal limits. High-sensitivity [...] is noted above in HPI [facility] Medical History A-fib COPD (chronic obstructive pulmonary [...] % (Auto) 15.6 % (.) 05/14/23 19:49 Otero % (Auto) 4.0 % (.) 05/14/23 19:49 Eos % (Auto) 1.7 % (.) 05/14/23 19:49 Baso % (Auto) 0.5 % (.) 05/14/23 19:49 Nucleat RBC Rel Count 0.1 /100 WBC (0-0.5) 05/14/23 19:49 Neut # (Auto) 8.2 x10E3/uL (1.8-7.7) H 05/14/23 19:49 Lymph # (Auto) 1.6 x10E3/uL (1.00-4.8) 05/14/23 19:49 Otero # (Auto) 0.4 x10E3/uL (0.0-0.8) 05/14/23 19:49 [...] the fall. Does have history of heart block,but has pacemaker in place. EKG notes A-fib -Interrogate pacemaker -Obtain orthostatics -Consult cardiology for their assessment -Continue home cardiac medications CHRISTIE Patient may be mildly intravascularly volume depleted. Does appear to have HCTZand [facility] -Monitor BMP closely -Hold home [...] setting as: INPATIENT because of an expectation ofan over 2 midnight stay. Estimated length of stay (# of days): 3 Documented By: Stalin Miranda MD 3 2213 Signed By: <Electronically signed by Stalin Miranda MD> 05/14/23 2331 [facility] Work Phone: 1([phone]) 101-591806-22-2023 Evaluation note* Encounter Date Diagnosis Assessment Notes Treatment Notes Treatment Clinical Notes Apr, Closed fracture of m ultiple ribs of left side with routine healing, subsequent encounter (ICD-10 - S22.42XD) Splint chest wall w/ coughing or movement. Appropriate opiate pain control. Incentive spirometry hourly while awake. Monitor Psat Apr,SHD (arteriosclerotic heart disease) (ICD-10 - I25.10)This patient is stable without activity related CP, dyspnea or lightheadedness. They are instructedto continue exercise and AHA diet plan. Apr,ermanent atrial fibrillation (ICD-10 - I48.21)This patient is in NSR or rate controlled. This patient is anticoagulated to prevent thromboembolic events. They are maintaining regular scheduled appts with their medical apparatus model maker. 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 They are also encouraged to continue exercise to achieve/maintain a normal BMI. Apr,Stage 3a chronic kidney disease (ICD-10 - N18.31)The patient is instructed on adequate control of hypertension and diabetes, if appropriate. They are also educated on the associated risks of NSAIDs and PPI use with kidney disease. They were instructed on adequate fluid balance and to avoid dehydration. Apr,OSA (obstructive sleep apnea) (ICD-10 - G47.33)AHI 58, BiPAP This patient is aware of the benefits associated with QUETA: With continued use, the patient reduces the risk for UT, CVA, HTN, cardiac dysrhythmias and sudden cardiac deaths.The patient is also aware of the association between QUETA and morning headaches, daytime somnolence, fatigue and obesity, whichalso has been improved with continued use.The patient is compliant with treatment, wearing the equipment every night for greater than 4 hours.The patient is instructed to continue use of the CPAP forOSA treatment. [facility] Other 04-19-2023 Evaluation note* Encounter Date Diagnosis Assessment Notes Treatment Notes Treatment Clinical Notes Feb, Cardiac pacemaker in situ (ICD-1 0 - Z95.0) [facility] Other 04-04-2023 Evaluation note* Encounter Date Diagnosis Assessment Notes Treatment Notes Treatment Clinical Notes Feb, ASHD (arteriosclerotic heart dis ease) (ICD-10 - I25.10) This patient is stable without activity related CP, dyspnea or lightheadedness. They are instructedto continue exercise and AHA diet plan. Feb,Type 2 diabetes mellitus with hyperglycemia, without long-term current use of insulin (ICD-10 - E11.65)This patient is following a comprehensive diabetic treatment plan. They are checking their feet daily for calluses and nonhealing ulcers. They are being seen for yearly dilated eye examinations. Goals: SBP less than 130, LDL less than 100, FBS less than 140, AC and A1C less than 7%. They are checking their BS daily, will which are reviewed at the office visit. Feb,Stage 3a chronic kidney disease (ICD-10 - N18.31)The patient is instructed on adequate control of hypertension and diabetes, if appropriate. They are also educated on the associated risks of NSAIDs and PPI use with kidney disease. They were instructed on adequate fluid balance and to avoid dehydration. Feb,ermanent atrial fibrillation (ICD-10 - I48.21)This patient is in NSR or rate controlled. This patient is anticoagulated to prevent thromboembolic events. They are maintaining regular scheduled appts with their medical apparatus model maker. 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 They are also encouraged to continue exercise to achieve/maintain a normal BMI. Feb,hronic venous insufficiency (ICD-10 - I87.2)Avoid salt and elevate lower extremities, support stockings, inspect legs and feet daily for blisters and ulcerations. Feb,Elevated cholesterol (ICD-10 - E78.00)Diet and exercise with continued statin therapy. Feb,Hypertensive chronic kidney disease with stage 1 through stage 4 chronic kidney disease, or unspecified chronic kidney disease (ICD-10 - I12.9) The patient is instructed on adequate control of hypertension and diabetes, if appropriate. They are also educated on the associated risks of NSAIDs and PPI use with kidney disease. They were instructed on adequate fluid balance and to avoid dehydration. Feb,omplete heart block (ICD-10 - I44.2) Feb,OSA (obstructive sleep apnea) (ICD-10 - G47.33)This patient is aware of the benefits associated with QUETA: With continued use, the patient reduces the risk for UT, CVA, HTN, cardiac dysrhythmias and sudden cardiac deaths.The patient is also aware of the association between QUETA and morning headaches, daytime somnolence, fatigue and obesity, whichalso has been improved with continued use.The patient is compliant with treatment, wearing the equipment every night for greater than 4 hours.The patient is instructed to continue use of the CPAP forOSA treatment. Feb,AD (generalized anxiety disorder) (ICD-10 - F41.1) [facility] Other 04-04-2023 Evaluation note* Encounter Date Diagnosis Assessment Notes Treatment Notes Treatment Clinical Notes Feb, Type 2 diabetes marino itus with hyperglycemia, without long-term current use of insulin (ICD-10 - E11.65) [facility] Other Discharge summary Author Milo Cameron [facility] July 03, 2022 4:59pmNote Date/TimeAugust 2021 4:59pmEdward [place] [id number] Discharge Summary Signed Patient: Nirmal Chaidez MR#: [id number] : 1945 Acct:[id number] Age/Sex: 76 / M Adm Date: 2 Loc: 4 Room: [address] [place] [address]: Lalito Silva MD Copies to: DO Milo Matos MD, [facility] Lalito Silva MD~ Providers Date of Discharge: 07/03/22 Discharging Provider: Milo Cameron Primary Care Provider: Modesto Chavarria Discharge Diagnosis Final Diagnosis Final Discharge Diagnosis: Syncope Permanent atrial fibrillation Bradycardia Status post successful pacemaker insertion Summary Hospital Course Hospital course: Patient was transferred from [facility] to have a permanent pacemaker placed due to syncope caused by bradycardia. He underwent successful placement of ventricular pacemaker by Dr. Silva with no complications. Pacemaker check the following day by the rep from the [facility] showed normal pacemaker function. Chest x-ray revealed [...] with nurse for incision check in the [facility] on 07/09/2022 at 9:30am. 2. Chest x-ray to be done the same day as your device check in [facility]. 3. Pacemaker/ICD clinic appointment at [facility] in 15 weeks- they will call you. 4. Office visit with Dr. Silva in the [place] [facility] in 15 weeks- we will call [...] DIRECTED Label Comments: Take as directed by [facility] allopurinol 300 mg Tablet 300 mg PO DAILY hydrocodone-acetaminophen 5-325 mg tablet 1 - 2 tab PO Q4-6H PRN (Reason: pain) 3 Days Qty: 14 0RF Documented By: Milo Cameron MD, [facility] 2 1656 Signed By: <Electronically signed by MD PATRICK Cameron> 07/03/22 4997 [facility] Work Phone: Discharge summary Author Stalin Miranda [facility] June 22, 2024 1:02pmNote Date/TimeAugust 2023 12:57pm[address] [address] Discharge Summary Signed Patient: Nirmal Chaidez MR#: [id number] : 1945 Acct:[id number] Age/Sex: 78 / M Adm Date: 4 Loc: 3T Room: [address] [place] [address]: Stalin Miranda MD Copies to: [...] Consult to Cardiology Routine Comment: Consulting Provider: [facility] [employer], [facility] Reason For Exam: Pre-syncope, TWI on [...] stent, AV heart block status post pacemaker, HTN,A-fib on Coumadin, HLD, COPD who presented to the emergencydepartment with a near syncopal event inthe shower just before presentation. Patient had complained of intractable nausea and vomiting in the 1 to 2 days prior to hospitalization. The symptoms had improved by the time patient arrivedto theED. Patient had some T wave inversions on [...] at SNF to work on strengthening. Patient w as discharged to [facility] for further PT/OT needs. He was discharged in stable condition. 35 minutes spent coordinating the discharge of this patient Time Spent with Patient Time spent providing/coordinating discharge services (# min): 35 Discharge Plan Discharge Plan Patient Disposition: [facility] Facility Activity: No Activity Restriction Diet: Low-Sodium [...] % (Auto) 73.9, Lymph % (Auto) 17.0, Otero % (Auto) 6.4, Eos % (Auto) 2.0, Baso % (Auto) 0.7, Nucleat RBC Rel Count 0.1, Neut # (Auto) 7.7, Lymph # (Auto) 1.8, Otero # (Auto) 0.7, Eos # (Auto) 0.2, Baso # (Auto) 0.1, PT 26.6 H, INR 2.4, PHA Creatinine Clear 89.71, Sodium 132 L, Potassium 4.1, Chloride 99, Carbon Dioxide 26.9, Anion Gap 10.2, BUN 26 H, Creatinine 0.92, Est GFR (CKD- EPI) > 60.0, Glucose 137 H, Calcium 9.5 06/21/24 20:35: POC Glucose 123, POC Glucose Comment Glu2: cleaned meter 06/21/24 16:03: POC Glucose 151 Documented By: Stalin Miranda MD 4 1253 Signed By: <Electronically signed by Stalin Miranda MD> 06/22/24 1302 [facility] Work Phone: Evaluation noteNo assessment information available [facility] Work Phone: Evaluation noteNo InformationNort Near Page Other Evaluation note* Diagnosis Onset Date Resolution Status Acute head injury acuteFallacuteSyncopeacute [facility] Work Phone: Evaluation note* Diagnosis Pacemaker- Primary Cardiac pacemaker in situ Permanent atrial fibrillation (CMS/HCC) Atrial fibrillation Mixed hyperlipidemia Essential hypertension, benign Complete heart block (CMS/HCC) Atrioventricular block, complete Atherosclerosis of [place] coronary artery of [place] heart without angina pectoris documented in this encounter [facility] Work Phone: Evaluation note* Diagnosis Onset Date Resolution Status Atrial fibrillation acuteChronic kidney diseaseacuteHigh cholesterolacuteHypertensionacuteMajor depressionacuteOSA (obstructive sleep apnea)acuteType 2 diabetes mellitus with hyperglycemiaacute [facility] Work Phone: evaluation note* Diagnosis Atherosclerosis of [place] coronary artery of [place] heart without angina pectoris- Primary Pacemaker Cardiac pacemaker in situ Permanent atrial fibrillation (Multi) Atrial fibrillation Essential hypertension, benign Complete heart block (Multi) Atrioventricular block, complete BMI 50.0-59.9, adult (Multi) SOB (shortness of breath) on exertion Shortness of breath Mixed hyperlipidemia documented in this encounter [facility] Work Phone: Evaluation note* Diagnosis Onset Date Resolution Status Atrial fibrillation acuteChronic kidney diseaseacuteHigh cholesterolacuteHypertensionacuteMajor depressionacuteOSA (obstructive sleep apnea)acuteType 2 diabetes mellitus with hyperglycemiaacuteAcute electrocardiogram changesacuteNausea & vomitingacute Viral illnessacute [facility] Work Phone: Evaluation note* Diagnosis Onset Date Resolution Status Atrial fibrillation acuteChronic kidney diseaseacuteHigh cholesterolacuteHypertensionacuteMajor depressionacuteOSA (obstructive sleep apnea)acuteType 2 diabetes mellitus with hyperglycemiaacuteAcute electrocardiogram changesacuteNausea & vomitingacute Pre-syncopeacuteViral illnessacute [facility] Work Phone: Evaluation note* Diagnosis Onset Date Resolution Status Pre-syncope acuteAcute electrocardiogram changesresolvedNausea & vomitingresolvedViral illnessresolved [facility] Work Phone: Evaluation note* Diagnosis Permanent atrial fibrillation (Multi)- Primary Atrial fibrillation SOB (shortness of breath) on exertion Shortness of breath Complete heart block Atrioventricular block, complete Pacemaker Cardiac pacemaker in situ Mixed hyperlipidemia Essential hypertension, benign Atherosclerosis of [place] coronary artery of [place] heart without angina pectoris QUETA (obstructive sleep apnea) Obstructive sleep apnea (adult) (pediatric) BMI 50.0-59.9, adult (Multi) Former smoker Personal history of tobacco use, presenting hazards to health documented in this encounter [facility] Work Phone: Evaluation note* Diagnosis SOB (shortness of breath) on exertion- Primary Shortness of breath Permanent atrial fibrillation (Multi) Atrial fibrillation Pacemaker Cardiac pacemaker in situ Essential hypertension, benign Complete heart block Atrioventricular block, complete Atherosclerosis of [place] coronary artery of [place] heart without angina pectoris BMI 45.0-49.9, adult (Multi) QUETA (obstructive sleep apnea) Obstructive sleep apnea (adult) (pediatric) Former smoker Personal history of tobacco use, presenting hazards to health Mixed hyperlipidemia documented in this encounter [facility] Work Phone: Evaluation note* Diagnosis Onset Date Resolution Status Admit Date ASHD (arteriosclerotic heart disease) acuteJuly 2024 2:56pmAtrial fibrillationacuteJuly 2024 2:56pmChronic kidney diseaseacuteJuly 2024 2:56pmHigh cholesterolacuteJuly 2024 2:56pmHypertensionacuteJuly 2024 2:56pmMajor depressionacuteJuly 2024 2:56pmOSA (obstructive sleep apnea)acuteJuly 2024 2:56pmType 2 diabetes mellitus with hyperglycemiaacuteJuly 2024 2:56pm [facility] Work Phone: History general Narrative - Reported* Type Description Date Medical History Diabetes Medical HistoryHypertensionMedical HistoryHigh CholesterolSurgical History lithrotripsySurgical Historyheart fcfqp7402Yhioftls Historybilateral knee replacementSurgical Emwpirnacjdgktrtgztg2912Cdjehbks Historykidney stone blasted 2018Hospitalization Historykidney stones and tyuesf6032Ulyytszrilufexo History see above [employer] Other History general Narrative - Reported* Type Description Date Medical History Diabetes Medical HistoryHypertensionMedical HistoryHigh CholesterolMedical HistoryOSA Surgical HistorylithrotripsySurgical Historyheart aqabv3070Tduueenu History bilateral knee replacementSurgical Hubjtqavatnsyowxxyis9088Slfiodjr History kidney stone yvrstib7317Aopumbmfjewiazl Historykidney stones and xpgrjj2767 Hospitalization Historysee above [facility] Other History of Present illness Narrative* Patient [...] the above we will proceed as noted. -[facility] [employer] DO Work Phone: History of Present illness [...] and weight loss were discussed in detail.[facility] [employer] 250 DO Work Phone: History of Present [...] all the above we recommend no change. -[facility] 250 DO Work Phone: Hospital Discharge instructions [...] with nurse for incision check in the [facility] on 07/09/2022 at 9:30am. 2. Chest x-ray to be done the same day as your device check in [facility]. 3. Pacemaker/ICD clinic appointment at [facility] in 15 weeks- they will call you. 4. Office visit with Dr. Silva in the [place] [facility] in 15 weeks- we will call you with appointment. [][facility] Work Phone: Hospital Discharge instructions Additional Instructions Keep your laceration clean with soap and water daily. Apply antibiotic ointment once daily. Follow-up with PCP for suture removal in 7 days.[facility] Work Phone: Hospital Discharge instructions Additional Instructions SNF TO MANAGE: PT/OT to eval and treat Monitor VS per protocol Monitor Neuro. and Cardiac assessment--Pre syncope Monitor GI assessment--Nausea and vomiting Please draw a PT/INR on 06/25/24--Coumadin to be managed by SNF providers Continue to use patient's home sleep apnea machine Maintain high risk fall precautions Care to be managed by [facility] Work Phone: Reason for referral (narrative)* Consultation (Routine) - AuthorizedSpecialtyDiagnoses / ProceduresReferred By Contact Referred To ContactCardiology Diagnoses Pacemaker Permanent atrial fibrillation (CMS/HCC) Essential hypertension, benign Complete heart block (CMS/HCC) Procedures Follow Up In Cardiology Lalito Silva MD [address] [place] [address] 2, [address] [address] Lalito Sliva MD [address] [place] [address], [address] [address] Referral IDStatusReasonStart DateExpiration DateVisits RequestedVisits [id number]/17/202311/ [facility] Work Phone: Reubcc for referral (narrative)* Consultation (Routine) - AuthorizedSpecialtyDiagnoses / ProceduresReferred By Contact Referred To ContactCardiology Diagnoses Permanent atrial fibrillation (Multi) Procedures Follow Up In Cardiology Lalito Silva MD [address] [place] [address] 2, [address] [address] Carri Marques MD [address] [place] [address] 2, [address] [address] Referral IDStatusReasonStkittery point DateExpiration DateVisits RequestedVisits [id number]/3/20246/ [facility] Work Phone: Reason for referral (narrative)No reason for referral information availableMercy Health St. [facility] Work Phone: Summary Purpose Family History No Family History Records FoundUnknown Family Member Name Dates Details FH: CABG (coronary artery by pass surgery): Mother(V17.3, Z82.49) Status:ActiveFamily history of congestive heart failure: Mother(V17.49, Z82.49) Status:ActiveFamily history of diabetes mellitus: Mother, Father(V18.0, Z83.3) Status:ActiveFamily history of lymphoma: Father(V16.7, Z80.7) Status:Active Unknown Family Member Name Dates Details FH: CABG (coronary artery by pass surgery): Mother(V17.3, Z82.49) Status:ActiveFamily history of congestive heart failure: Mother(V17.49, Z82.49) Status:ActiveFamily history of diabetes mellitus: Mother, Father(V18.0, Z83.3) Status:ActiveFamily history of lymphoma: Father(V16.7, Z80.7) Status:Active Unknown Family Member Name Dates Details FH: CABG (coronary artery by pass surgery): Mother(V17.3, Z82.49) Status:ActiveFamily history of congestive heart failure: Mother(V17.49, Z82.49) Status:ActiveFamily history of diabetes mellitus: Mother, Father(V18.0, Z83.3) Status:ActiveFamily history of lymphoma: Father(V16.7, Z80.7) Status:Active Unknown Family Member Name Dates Details FH: CABG (coronary artery by pass surgery): Mother(V17.3, Z82.49) Status:ActiveFamily history of congestive heart failure: Mother(V17.49, Z82.49) Status:ActiveFamily history of diabetes mellitus: Mother, Father(V18.0, Z83.3) Status:ActiveFamily history of lymphoma: Father(V16.7, Z80.7) Status:Active Unknown Family Member Name Dates Details FH: CABG (coronary artery by pass surgery): Mother(V17.3, Z82.49) Status:ActiveFamily history of congestive heart failure: Mother(V17.49, Z82.49) Status:ActiveFamily history of diabetes mellitus: Mother, Father(V18.0, Z83.3) Status:ActiveFamily history of lymphoma: Father(V16.7, Z80.7) Status:Active Unknown Family Member Name Dates Details FH: CABG (coronary artery by pass surgery): Mother(V17.3, Z82.49) Status:ActiveFamily history of congestive heart failure: Mother(V17.49, Z82.49) Status:ActiveFamily history of diabetes mellitus: Mother, Father(V18.0, Z83.3) Status:ActiveFamily history of lymphoma: Father(V16.7, Z80.7) Status:Active Unknown Family Member Name Dates Details Family history of lymphoma: Father(V16.7, Z80.7) Status:ActiveFamily history of diabetes mellitus: Mother, Father(V18.0, Z83.3) Status:ActiveFamily history of congestive heart failure: Mother(V17.49, Z82.49) Status:ActiveFH: CABG (coronary artery bypass surgery): Mother(V17.3, Z82.49) Status:Active Unknown Family Member Name Dates Details FH: CABG (coronary artery by pass surgery): Mother(V17.3, Z82.49) Status:ActiveFamily history of congestive heart failure: Mother(V17.49, Z82.49) Status:ActiveFamily history of diabetes mellitus: Mother, Father(V18.0, Z83.3) Status:ActiveFamily history of lymphoma: Father(V16.7, Z80.7) Status:Active Unknown Family Member Name Dates Details FH: CABG (coronary artery by pass surgery): Mother(V17.3, Z82.49) Status:ActiveFamily history of congestive heart failure: Mother(V17.49, Z82.49) Status:ActiveFamily history of diabetes mellitus: Mother, Father(V18.0, Z83.3) Status:ActiveFamily history of lymphoma: Father(V16.7, Z80.7) Status:Active Unknown Family Member Name Dates Details FH: CABG (coronary artery by pass surgery): Mother(V17.3, Z82.49) Status:ActiveFamily history of congestive heart failure: Mother(V17.49, Z82.49) Status:ActiveFamily history of diabetes mellitus: Mother, Father(V18.0, Z83.3) Status:ActiveFamily history of lymphoma: Father(V16.7, Z80.7) Status:Active Unknown Family Member Name Dates Details FH: CABG (coronary artery by pass surgery): Mother(V17.3, Z82.49) Status:ActiveFamily history of congestive heart failure: Mother(V17.49, Z82.49) Status:ActiveFamily history of diabetes mellitus: Mother, Father(V18.0, Z83.3) Status:ActiveFamily history of lymphoma: Father(V16.7, Z80.7) Status:Active Unknown Family Member Name Dates Details FH: CABG (coronary artery by pass surgery): Mother(V17.3, Z82.49) Status:ActiveFamily history of congestive heart failure: Mother(V17.49, Z82.49) Status:ActiveFamily history of diabetes mellitus: Mother, Father(V18.0, Z83.3) Status:ActiveFamily history of lymphoma: Father(V16.7, Z80.7) Status:Active Relationship Condition Age at Onset Recorded Date/T taina father Cutaneous T-cell lymphoma Unknown Malignant neoplasmUnknownDeceasedUnknownNot SpecifiedDeceasedUnknownHeart diseaseUnknown Relationship Condition Age at Onset Recorded Date/T taina father Cutaneous T-cell lymphoma Unknown Malignant neoplasmUnknownDeceasedUnknownmotherDeceasedUnknownHeart disease Unknown Advance Directives No Advanced Directives Records Found Advance Directive Response Recorded Date/ Time Advance Directives No July 8:25am Chief Complaint [facility] testing due in NovemberNIRMAL CHAIDEZ is [...] Chief Complaint 3 month follow up N20.0, Q97Iesasw for VisitAtrial fibrillation Chronic kidney disease High cholesterol Hypertension Major depression QUETA (obstructive sleep apnea) Type 2 diabetes mellitus with hyperglycemia Chief Complaint 3 month follow up N20.0, I10 FallReason for VisitAtrial fibrillation Chronic kidney disease High cholesterol Hypertension Major depression QUETA (obstructive sleep apnea) Type 2 diabetes mellitus with hyperglycemia Acute electrocardiogram changes Nausea & vomiting Viral illness Chief Complaint 3 month follow up N20.0, I10 FallReason for VisitAtrial fibrillation Chronic kidney disease High cholesterol Hypertension Major depression QUETA (obstructive sleep apnea) Type 2 diabetes mellitus with hyperglycemia Acute electrocardiogram changes Nausea & vomiting Pre-syncope Viral illness Chief Complaint Fall Usp Visit nusrsing home visit Amb Documentation intermediate follow up/flu shotReason for VisitPre-syncope Acute electrocardiogram changes Nausea & vomiting Viral [...] 9:32am Type 2 diabetes mellitus with hyperglyce [facility] November 20, 2024 9:32am ASHD (arteriosclerotic heart disease) [facility] 2024 10:06am Atrial fibrillation January 30, [...] 10:06am Type 2 diabetes mellitus with hyperglyce [facility] January 30, 2025 10:06am Chief Complaint Admit Date 3 month f/u-HIGH RISK June 11, 2025 2: 56pm Reason for Visit Admit Date ASHD (arteriosclerotic heart disease) Ju ly 2024 2:56pm Atrial fibrillation June 11, 2025 [...] and content) DATE CREATED AUTHOR 05/17/2018 [facility] DATE CREATED AUTHOR AUTHOR'S ORGANIZ ATION 05/08/2019 [facility] DATE CREATED AUTHOR AUTHOR'S ORGANIZ ATION 06/16/2022 [employer] DATE CREATED AUTHOR AUTHOR'S ORGANIZ ATION 04/29/2023 [facility] DATE CREATED AUTHOR AUTHOR'S ORGANIZ ATION 05/19/2023 [facility] DATE CREATED AUTHOR AUTHOR'S ORGANIZ ATION 12/03/2024 [facility] DATE CREATED AUTHOR AUTHOR'S ORGANIZ ATION 05/10/2025 [facility] DATE CREATED AUTHOR AUTHOR'S ORGANIZ ATION 09/14/2025 [facility] Care Teams (unrecognized sec tion and content) Team Status: Active Member Role Status Dates Modesto Chavarria DO Primary Care Provider Active Team Status: Inactive Member Role Status Dates Modesto Chavarria DO Primary Care Provide r, Attending Provider Active Start: March 26, 2024 End: March 26, 2024 Team Status: Active Member Role Status Dates Modesto Chavarria DO Primary Care Provider Active Tracy Edouard ProviderActiveFrtanika Miranda MDAdmsoy Provider, Attending ProviderActive Team Status: Inactive Member Role Status Dates Modesto Chavarria DO Primary Care Provider Active Kaley Gonzales Provider, Attending ProviderActive Team Status: Inactive Member Role Status Dates Modesto Chavarria DO Primary Care Provider Active Tracy Sosa ProviderActiveTeam MemberRelationshipSpecialty Start DateEnd Date Modesto Chavarria [address] [place] [address] [address] [place] [address] PCP - General11/21/99Team MemberRelationshipSpecialtyStart DateEnd Date Modesto Chavarria DO PCP - General11/21/99 Team Status: Inactive Member Role Status Dates Modesto Chavarria DO Primary Care Provider Active Start: April 23, 2024 End: April 23REAL Lynn-BCAttending ProviderActiveStart: April 23, 2024 End: April 23, 2024Mandy Gonzales ProviderActiveStart: April 23, 2024 End: April 23, 2024 Team Status: Active Member Role Status Dates Modesto Chavarria DO Primary Care Provider Active Start: June 18, 2024 Tracy Sosa ProviderActiveStart: June 18, 2024 Stalin Miranda MDAdmit Provider, Attending ProviderActiveStart: June 18, 2024 Team Status: Inactive Member Role Status Dates Modesto Chavarria DO Primary Care Provider Active Start: June 19, 2024 End: June 22, 2024Tracy Sosa ProviderActiveStart: June 19, 2024 End: June 22, 2024Stalin Miranda MDAdmit Provider, Attending ProviderActiveStart: June 19, 2024 End: June 22, 2024 [...] Care Provider Active Start: August 07, 2024 LIONEL CasasAAtdale ProviderActiveStart: August 07, 2024 Team Status: Inactive Member Role Status Dates Modesto Chavarria DO Primary Care Provide r, Attending Provider Active Start: August 14, 2024 End: August 14, 2024Team MemberRelationshipSpecialtyStart DateEnd Date Modesto Chavarria DO PCP - General11/21/99 Team Status: Inactive Member Role Status Dates [...] Start: January 30, 2025 End: January 30, 2025Team MemberRelationshipSpecialtyStart DateEnd Date Modesto Chavarria DO [address] [place] [address] [place] [address] [facility] Team Status: Inactive Member Role Status Dates Modesto Chavarria DO Primary Care Provider Active Start: June 11, 2025 End: June 11enleila Chavarria DOAttfelix ProviderActiveStart: June 11, 2025 End: June 11, 2025 REASON FOR VISIT (unrecogniz ed section and content) GihzcsHxjijpcwRzxmko-bl2dSztrdgUykazbytJlcojt-nu0e fuSpecialtyDiagnoses / ProceduresReferred By ContactReferred To ContactCardiology Diagnoses Pacemaker Permanent atrial fibrillation (Multi) Essential hypertension, benign Complete heart block (Multi) Procedures Follow Up In Cardiology Lalito Silva MD [address] [place] [address] 2, [address] [address] Lalito Silva MD [address] [place] [address] 2, [address] [place] [address] Fax: Referral IDStatusReasonStkittery point DateExpiration DateVisits RequestedVisits [id number]/17/202311/[id number]-ne9 m SpecialtyDiagnoses / ProceduresReferred By ContactReferred To ContactCardiology Diagnoses Permanent atrial fibrillation (Multi) Procedures Follow Up In Cardiology Lalito Silva MD Traboulssi, Mourhaf, MD [address] [place] [address], [place] [address] Phone: tel: fax: Referral IDStatusReasonStkittery point DateExpiration DateVisits RequestedVisits [id number]/3/20246/[id number]-ka6 month Follow up for Atrial FibrillationSpecialtyDiagnoses / ProceduresReferred By ContactReferred To ContactCardiology Diagnoses Permanent atrial fibrillation (Multi) Procedures Follow Up In Cardiology Carri Marques MD [address] [place] [address] 2, [place] [address] Phone: tel: fax: Carri Marques MD [address] [place] [address], [place] [address] Phone: tel: fax: Referral IDStatusReasonHans[employer]b DateExpiration DateVisits RequestedVisits [id number]/5/202412/ Goals (unrecognized section and content) Goals may [...] BE BASED ON THE PRIMARY CLINICAL RECORDS. [facility]. provides no warranty or guarantee of the accuracy or completeness of information in this document.
== END 2025-09-18 11:38 | disposition home or self-care (01) ==
LOC: US 11:37
PROVIDERS: PCP Internal Medicine; Visit Provider Urology
DX: N20.0 Calculus of kidney (principal); N28.1 Cyst of kidney, acquired
CPT/HCPCS: 76775

== ENCOUNTER 2025-09-21 | Outpatient (RCR) | payer MEDICARE, OTHER, SELFPAY | END 2025-10-20 23:59 | disposition home or self-care (01) | LOC: MM | PROVIDERS: PCP Internal Medicine; Visit Provider Internal Medicine | DX: Z51.81 Encounter for therapeutic drug level monitoring (principal); Z79.01 Long term (current) use of anticoagulants ==

== ENCOUNTER 2025-10-21 11:06 | Outpatient (RCR) | payer MEDICARE, OTHER, SELFPAY | END 2025-11-20 13:08 | disposition home or self-care (01) | LOC: MM 11:06 | PROVIDERS: PCP Internal Medicine; Visit Provider Internal Medicine | DX: Z51.81 Encounter for therapeutic drug level monitoring (principal); Z79.01 Long term (current) use of anticoagulants; I48.91 Unspecified atrial fibrillation | CPT/HCPCS: 85610; G0463 ==

== ENCOUNTER 2025-11-12 13:38 | Outpatient (OUT) | payer MEDICARE, OTHER, SELFPAY ==
--- OUTSIDE RECORDS SUMMARY | 2025-03-25 08:00 | XMS_ITS ---
Author Organization [facility] [place] Address [address] [place] [address] Care Team Providers Care Plant Operations Vice President Name Role Phone Modesto George DO Primary Care Provider Unavaila Jennifer Hayes [phone] REASON FOR VISIT Nail Care Encounters Encounter Location Date Provider Diagnosis [facility] (PODIATRY) [address] [place] [address] [place] [address] 03/25/2025 Jennifer Ryder Plan Of Treatment No Information Progress Notes * Justin CHAIDEZ GDOB:1945 (80 yo M)Acc No.[id number]:03/25/2025 UNLOCKED PROGRESS NOTE Nurse Visit Patient: Tanvi SNOW Justin Jaramillo :?JORGE AndersonCDOB:1945???Age:79 Y ???Sex:MaleDate:03/25/2025Phone:[phone]:[address] [place], [place] [id number]:Modesto George DO Subjective: * Chief Complaints: * 1 . Nail Care. * Medical History: Objective: * Vitals: Assessment: Plan: * Treatment: * * Electronic signature of Jennifer Ryder PA-C on 11/12/2025 at 01:40 PM ESTSign off status: PendingVisit Status:?CANC (Cancelled) * Provider: Shweta Ryder PA-C Date: 0 03/25/2025 Generated for Printing/Faxing/eTransmitting on:?11/12/2025 01:40 PM EST
--- OUTSIDE RECORDS SUMMARY | 2025-11-12 13:41 | XMS_ITS | Patient Health Record ---
Author Organization [facility] [place] Address [address] [place] [address] Care Team Providers Care Pilling Machine Operator Name Role Phone Modesto George DO Primary Care Provider Unavaila Jennifer Hayes Unavailable [phone] Reason For Referral No Information Problems Problem Type SNOMED Code ICD Code Onset Dates Problem Status W/U Status Risk Notes Problem Chronic kidney disea se stage 2 (757703188) Chronic kidney disease (CKD) stage G2/A1, mildly decreased glomerular filtration rate (GFR) between 60-89 mL/min/1.73 square meter and albuminuria creatinine ratio less than 30 mg/g (N18.2) ActiveconfirmedProblemLeukocytosis (239853238)Elevated WBCs (D72.829)Active confirmedProblemDiabetes mellitus (46895993)Diabetes mellitus (E11.9)Active confirmed Encounters Encounter Location Date Provider Diagnosis [facility] (PODIATRY) [address] [place] [address] [place] [address] 12/24/2024 Jennifer Ryder Diabetes mellitus E11.9 Assessments Encounter Date Diagnosis (ICD Code) Assessment Notes Treatment Notes Treatment Clinical Notes Section Notes 12/24/2024 Diabetes mellitus (ICD-10 - E11. 9) Plan Of Treatment No Information Insurance Providers Payer Name Payer Address Payer Phone Subscriber Number Group Number Insured Name Patient Relationship to Insured Coverage Start Date Coverage End Date [place] [address] [place] [address] [id number] Rigo Merrill - patient is the [id number] 2008[facility] MEDICARE SUPP[address]MENTPO [address] [place] [id number], AlvinSelf - patient is the insured
--- OUTSIDE RECORDS SUMMARY | 2025-11-12 13:41 | XMS_ITS | Clinical Summary ---
Author Organization [facility] Address [address] [place] [address] Phone Care Team Providers Care Pc Maintenance Technician Name Role Phone Modesto George DO Primary Care Provider [phone] Allergies Active AllergyReactionsCriticalityNoted DateCommentsPenicillinsHives,UnknownHigh 10/06/2023 Medications MedicationSigDispense [...] one tablet by mouth as directed by [facility]Active semaglutide (Ozempic) 0.25 mg or [...] INJECT 20 UNITS SUBCUTANEOUS EVERY NIGHT AT YISZJBT30/02/2024Active cholecalciferol (Vitamin D3) 25 mcg (1,000 units) capsule Take 1 capsule (25 mcg) by mouth once daily.Active cyanocobalamin (Vitamin B-12) 1,000 mcg tablet Take 1 tablet (1,000 mcg) by mouth once daily.Active lisinopriL-hydrochlorothiazide 10-12.5 mg tablet Indications:Essential hypertension, benignTake 1 tablet by mouth once daily. 90 tablet ///ctive Active Problems ProblemNoted DateDiagnosed DateOSA (obstructive sleep apnea)10/25/2024Former jeneqa1310/25/2024MI 45.0-49.9, adult04/23/2024therosclerosis of coronary artery of [place] heart without angina urwcmlwh12/16/2023omplete heart block10/06/2023 Diabetes lknvwqma58/16/2646Vgmno87/16/2023Essential hypertension, benign 10/06/2023Facial seznphxsve05/16/2023History of wzsvbb7410/06/2023Hyperlipidemia 10/06/2023Injury of head10/06/2023Neck pain10/06/20238255Cjfpwtemp28/16/2023 Permanent atrial yiveqdedtzru03/16/2023SOB (shortness of breath) on exertion 10/06/20236508Tftjrqf76/16/2023 Immunizations ImmunizationAdministration DatesNext ArpPJB9402/02/2022Flu vaccine, trivalent, preservative free, HIGH-DOSE, age 65y+ [...] InformationValueDate RecordedSex Assigned at BirthNot on fileLegal FxmFqhc85/25/2022 9:25 PM ESTGender IdentityNot on file Sexual OrientationNot on file Last Filed Vital Signs Vital SignReadingTime TakenCommentsBlood Thkupmje94/56005/07/2025 3:42 PM EDT Gxzrw6624/17/2025 3:42 PM PYWOomybrlfdhv42.4 ??C (97.6 ??F)07/09/2022 9:59 AM EDTRespiratory Rate--Oxygen Saturation--Inhaled Oxygen Concentration--Dqqyqq975 kg (293 lb)05/07/2025 3:42 PM TUKOxjmyk040.2 cm (5' 7 )05/07/2025 3:42 PM EDT Body Mass Index45.8905/07/2025 3:42 PM EDT Plan of Treatment DateTypeDepartmentCare Team (Latest Contact Info)Erecdbuihry92/28/2026 3:10 PM ESTOffice Visit at [facility] [address] [phone] Michael Mullen MD 703 [facility] 2, [address] [address] Health MaintenanceDue DateLast DoneCommentsCreatinine Level1945Diabetes: Hemoglobin A1C1945Diabetes: Urine Protein Fvdeoqjub1945Lipid Panel 1945Potassium Level1945Zoster Vaccines (1 of 2)1995 Pneumococcal Vaccine (2 of 2 - PCV)RSV High Risk: (Elderly (60+) or Population) (1 - 1-dose 75+ series)2020Echocardiogram 5006/19/2024, 05/16/2023, 2COVID-19 Vaccine ( season)/12/2021Influenza Vaccine (#1)/12/2021, 08/07/2021, 08/21/2019, Additional history existsMedicare Annual Wellness Visit (AWV)3/10/2025, 12/26/2023, 10/28/2022, Additional history exists Diabetes: Retinopathy Wrrikuedg86/11/2024, 04/11/2023, 02/09/2021, Additional history existsDTaP/Tdap/Td Vaccines (6 - Td or Tdap)08/24/2032 08/24/2022, 02/02/2022, 02/02/2022, Additional history existsHIB VaccinesAged OutNo longer eligible based on patient's age to complete this topicHPV Vaccines Aged OutNo longer eligible based on patient's age to complete this topic Hepatitis A VaccinesAged OutNo longer eligible based on [...] Most Recently Relevant to Health Maintenance Insurance MemberSubscriberPlan / Payer (Effective 2008-Present)Name:Justin Merrill Member ID:[id number] Relation to Subscriber:SelfName:Justin Merrill Subscriber ID:[id number] Payer ID:Not on file Group ID:Not on file Type:Not on file Address: [place] [id number] Care Teams Team MemberRelationshipSpecialtyStart DateEnd Modesto George DO [address] [place] [address] PCP - GeneralInternal Medicine04/23/25
--- OUTSIDE RECORDS SUMMARY | 2025-11-12 13:41 | XMS_ITS | Clinical Summary ---
Author Organization [facility] Address [address] [place] [address] Care Team Providers Care Slot Technician Name Role Phone Unavailable Primary Care Provider Unavailabl e Social History Tobacco UseTypesPacks/DayYears UsedDateSmoking Tobacco: Never AssessedSex and Gender InformationValueDate RecordedSex Assigned at BirthNot on fileLegal Sex Male03/21/2023 8:33 PM EDTGender IdentityNot on fileSexual OrientationNot on file Plan of Treatment Not on file Insurance
--- OUTSIDE RECORDS SUMMARY | 2025-11-12 13:41 | XMS_ITS | Clinical Summary ---
Author Organization [facility] Address [address] [place], [place] [address] Care Team Providers Care Almond Roaster Name Role Phone Rafat George Primary Care Provider [phone] Social History Tobacco UseTypesPacks/DayYears UsedDateSmoking Tobacco: Never AssessedSex and Gender InformationValueDate RecordedSex Assigned at BirthNot on fileLegal Sex Male10/22/2012 9:09 AM ESTGender IdentityNot on fileSexual OrientationNot on file Plan of Treatment Not on file Insurance Care Teams Team MemberRelationshipSpecialtyStart DateEnd Date Ariel Rafatoumou Rasmussen [address] [place] [address] [facility]03/03/01
--- NOTE | 2025-11-12 14:15 | PM.WCHP ---
Wound Care H&P: HPI History of Present Illness Narrative: Mr. Merrill is a old year old gentleman with history of type 2 diabetes who presents for routine nail care. He complains of pain in his toes due to long nails, otherwise he has no complaints. [facility] Medical History (Updated 04/03/25 @ 14:55 by KEN Anderson) Coronary arteriosclerosis ?I25.10 - Atherosclerotic heart disease of [place] coronary artery without angina pectoris (ICD-10) Surgical History (Updated 04/24/23 @ 13:03 by Anatoly Klein MD) History of heart artery stent ?Z95.5 - Presence of coronary angioplasty implant and graft (ICD-10) Family History (Updated 04/23/23 @ 23:26 by Joyce Guan) Father Family history of cancer Social History (Updated 04/23/23 @ 23:28 by Joyce Guan) Within the past year, how often did you have a drink containing alcohol: 4 or more times a week Within the past year, how many standard drinks containing alcohol did you have on a typical day: 1 or 2 Within the past year, how often did you have six or more drinks on one occasion: never Total score: 0 Score interpretation: Questions 2 and 3 are 0. It can be assumed that the patient's drinking is below the recommended limits. However, please confirm the accuracy of the patient's alcohol intake over the last few months. Smoking status: Former smoker Second hand tobacco smoke exposure: No Non-prescribed substance use: denies use Are you now , , , , never or living with a partner: Meds Home Medications and Allergies Home Medications ?Medication ?Instructions ?Recorded ?Confirmed ?Type allopurinol 300 mg tablet 300 mg PO DAILY 04/23/23 04/23/23 History citalopram 20 mg tablet 20 mg PO BEDTIME 04/23/23 04/24/23 History lisinopril 20 2 tab PO DAILY 04/23/23 04/23/23 History mg-hydrochlorothiazide 12.5 mg tablet metformin 500 mg tablet 500 mg PO DAILY 04/23/23 04/23/23 History potassium bicarbonate-citric acid 25 meq PO BID 04/23/23 04/23/23 History 20 mEq effervescent tablet (Effer-K) pravastatin 40 mg tablet 40 mg PO BEDTIME 04/23/23 04/23/23 History torsemide 10 mg tablet 10 mg PO DAILY 04/23/23 04/23/23 History warfarin 4 mg tablet 4 mg PO DAILY 04/23/23 04/23/23 History acetaminophen 500 mg tablet 1,000 mg (2 x 500 mg) PO Q6H PRN 04/28/23 Rx (Tylenol Extra Strength) Pain Scale 1-3 #100 tabs ipratropium 0.5 mg-albuterol 3 mg 3 ml inhalation Q6H #180 mL 04/28/23 Rx (2.5 mg base)/3 mL nebulization soln lidocaine 5 % topical patch 1 patch topical QDAY #30 ea 04/28/23 Rx tramadol 50 mg tablet 50 mg PO QID PRN pain #120 tabs 04/28/23 Rx Allergies Allergy/AdvReac Type Severity Reaction Status Date / Time Penicillins Allergy Severe Hives Verified 04/23/23 16:05 Exam Narrative: Exam Narrative: Derm: skin is diffusely dry, thin, and shiny. Hemosiderin staining present on the lower legs. Toenails 1-10 are elongated, thickened, and mycotic. Vasc: DP and PT pulses are nonpalpable bilaterally. Feet are appropriately warm with cap refill <3 sec bilaterally. Neuro: Right Achilles DTR 1+, left DTR absent. Right vibratory sensation present but decreased, left vibratory sensation absent. Monofilament testing revealed normal sensation in 5/5 areas tested bilaterally. MSK: flatfoot deformity bilaterally. No pain with palpation Assessment and Plan Assessment and Plan (1) Tinea unguium: (2) Type 2 diabetes mellitus with diabetic chronic kidney disease: (3) Diminished pulses in lower extremity: (4) Disorder of nail due to another disorder: (5) CKD stage 2 due to type 2 diabetes mellitus: Plan Routine nail care performed. Follow-up in 3 months. Acute Procedures Podiatry Nail Debridement Class B Findings Absent posterior tibial pulse: bilateral Advanced trophic changes as evidenced by any three of the following: decreased hair growth, nail changes (thickening), pigmentary changes (discoloring) and skin texture (thin or shiny) Absent dorsalis pedis pulse: bilateral Class C Findings Claudication: No Temperature changes: No Edema: Yes Nail debridement paresthesia (abnormal spontaneous sensations in the feet): No Burning: No Qualifies If: Qualifiers If:: A patient qualifies for nail debridement if they have: 1 class A finding (Q7) 2 class B findings (Q8) OR 1 class B & 2 class C findings in addition to a primary condition (Q9) Nail Procedure Nail Procedure Time out: Yes Nail procedure: other (Toenail debridement) Number of affected nails: 10 Location (toes): left and right Procedure successful: Yes Patient tolerated procedure: well and no complications Additional comments: Toenails 1 through 10 were sharply debrided with nail nippers without incident.
== END 2025-11-12 13:39 | disposition home or self-care (01) ==
LOC: WC 13:38
PROVIDERS: PCP Internal Medicine; Visit Provider Physician Assistant
DX: B35.1 Tinea unguium (principal); E11.22 Type 2 diabetes mellitus with diabetic chronic kidney disease; R09.89 Other specified symptoms and signs involving the circulatory and respiratory systems; L60.8 Other nail disorders
CPT/HCPCS: 11721